=== PATIENT | male | born 1950 | race Caucasian/White ===

== ENCOUNTER 2021-01-06 13:59 | Emergency (ER) | payer MEDICARE, SELFPAY ==
--- NOTE | ~2021-01-06 | XR_ITS ---
EXAMINATION: XR CHEST CLINICAL INFORMATION: Chest pain COMPARISON: None TECHNIQUE: Frontal view of the chest was obtained. FINDINGS: The cardiac silhouette does not appear enlarged. The thoracic aorta is tortuous. Hilar and mediastinal contours are otherwise unremarkable. The lungs are clear. There is no pleural effusion or pneumothorax. There are degenerative changes of the spine. XR/XR chest 1V IMPRESSION: Tortuous thoracic aorta otherwise unremarkable exam.
--- NOTE | ~2021-01-06 | US_ITS ---
EXAMINATION: US ABDOMEN LIMITED CLINICAL INFORMATION: Abnormal liver function tests. COMPARISON: None TECHNIQUE: Real-time imaging of the right upper quadrant abdominal viscera. FINDINGS: PANCREAS: Obscured by bowel gas LIVER: Normal. The liver is normal in size. The liver contour is normal. Parenchymal echogenicity is normal. No focal hepatic lesion. There is no intrahepatic biliary duct dilatation seen. GALLBLADDER: There are multiple mobile gallstones. There is no wall thickening or pericholecystic fluid. COMMON BILE DUCT: Normal in caliber measuring 0.5 cm in diameter. RIGHT KIDNEY: Normal. No hydronephrosis. No renal calculi or focal parenchymal lesions. The kidney measures 11.1 cm in maximum dimension. FREE FLUID: None. US/US abdomen limited IMPRESSION: Cholelithiasis without evidence for acute cholecystitis. Normal appearance of the liver. No focal lesion.
[2021-01-06 14:17] VITALS: BP 152/94; BP 160/80; PULSE 89; RESP 18; TEMP 36.2; O2SAT 97; BMI 26.5
--- NOTE | 2021-01-06 15:36 | ECG_ITS ---
Test Reason : ANXIETY Blood Pressure : / mmHG Vent. Rate : 088 BPM Atrial Rate : 090 BPM P-R Int : 000 ms QRS Dur : 096 ms QT Int : 396 ms P-R-T Axes : 000 006 078 degrees QTc Int : 479 ms Normal sinus rhythm Nonspecific ST and T wave abnormality Premature ventricular complexes Borderline ECG No previous ECGs available Referred By: Katy Sands Electronically Signed By:KINGSTON OSBORNE
--- NOTE | 2021-01-06 15:40 | ED_ITS ---
HPI - General Adult General Chief complaint: Anxiety <UTE Farrar Last Filed: 01/06/21 17:05> Stated complaint: sob/cp <UTE Farrar - Last Filed: 01/06/21 17:05> Time Seen by Provider: 01/06/21 14:54 <UTE Farrar Last Filed: 01/06/21 17:05> Source: patient and EMS <UTE Farrar Last Filed: 01/06/21 17:05> History of Present Illness HPI narrative: 70-year-old male with a past medical history of hypertension, paranoid delusions, presenting to the ED complaining left-sided chest wall discomfort, SOB, generalized body swelling, and feeling like something is under his skin. Admits issues have been going on for a long time, however today could no longer handle it. 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 Denies fever, chills, cough, abdominal pain, nausea/vomiting, LE edema Patient reports compliance with BP medication, denies taking other medications. Denies SI/HI a however does report increased depression <UTE Farrar Last Filed: 01/06/21 17:05> Onset (ago): unknown <UTE Farrar Last Filed: 01/06/21 17:05> Related Data Home medications: Home Medications Medication Instructions Recorded Confirmed amlodipine-benazepril 1 cap PO DAILY 01/06/21 01/06/21 Previous Rx's Medication Instructions Recorded cyclobenzaprine 10 mg PO Q8H #10 tab 01/07/21 famotidine [Pepcid] 20 mg PO BID #10 tab 01/07/21 <UTE Farrar Last Filed: 01/06/21 17:05> Allergies/adverse reactions: Allergies Allergy/AdvReac Type Severity Reaction Status Date / Time meperidine [From DEMEROL] Allergy Unknown UNKNOWN Unverified 05/21/20 14:55 <UTE Farrar Last Filed: 01/06/21 17:05> Review of Systems Review of Systems: Constitutional: No Fever, No Chills Cardiovascular: + Chest Pain, + SOB, No Edema, No Palpitations Respiratory: No Cough, No Dyspnea Gastrointestinal: No Nausea, No Vomiting, No Diarrhea, No Constipation, No Abdominal pain Genitourinary: No Dysuria, No Urinary Frequency, No Hematuria Musculoskeletal: No joint pain, No Joint Swelling Skin: + feels like something under skin Neuro: No Weakness, No Numbness, No Dizziness, No Headache Psych: No Anxiety/Panic, + Depression, No SI/HI. <UTE Farrar - Last Filed: 01/06/21 17:05> Yes all other systems are reviewed and are negative <UTE Farrar - Last Filed: 01/06/21 17:05> [facility] Past Medical History Attestation statement: The following information was validated with the patient. <UTE Farrar - Last Filed: 01/06/21 17:05> Medical History: Medical History (Updated 01/08/21 @ 00:01 by Denisha Coppola) HTN (hypertension) <UTE Farrar - Last Filed: 01/06/21 17:05> Social History Social History: Social History Advance Directives: Yes Advance Directives Information Provided: Yes Advance Directives on File: No <UTE Farrar - Last Filed: 01/06/21 17:05> Physical Exam Vital Signs: Vital Signs: Last Vital Signs Temp 99.6 F 01/07/21 08:30 Pulse 99 01/07/21 08:30 Resp 01/07/21 08:30 BP 135/84 01/07/21 08:30 Pulse Ox 95 01/07/21 08:30 Body Mass Index 26.5 <UTE Farrar - Last Filed: 01/06/21 17:05> Vital Signs: Last Vital Signs Temp 99.6 F 01/07/21 08:30 Pulse 99 01/07/21 08:30 Resp 01/07/21 08:30 BP 135/84 01/07/21 08:30 Pulse Ox 95 01/07/21 08:30 Body Mass Index 26.5 <Micheal Diaz NP - Last Filed: 01/06/21 23:32> Vital Signs: Last Vital Signs Temp 99.6 F 01/07/21 08:30 Pulse 99 01/07/21 08:30 Resp 01/07/21 08:30 BP 135/84 01/07/21 08:30 Pulse Ox 95 01/07/21 08:30 Body Mass Index 26.5 <Bradford Sherman MD - Last Filed: 02/04/21 14:55> Const: General: cooperative, healthy appearing, comfortable, well developed, alert and awake <UTE Farrar - Last Filed: 01/06/21 17:05> Orientation/consciousness: patient oriented x3 <UTE Farrar - Last Filed: 01/06/21 17:05> Limitations: no limitations <UTE Farrar - Last Filed: 01/06/21 17:05> HENMT: Head: Yes normal to inspection <UTE Farrar - Last Filed: 01/06/21 17:05> Ears: hearing grossly normal bilaterally <UTE Farrar - Last Filed: 01/06/21 17:05> General nose exam: Normal external nose present <UTE Farrar - Last Filed: 01/06/21 17:05> Face and sinus: Yes normal facial exam <UTE Farrar - Last Filed: 01/06/21 17:05> Eyes: General: appearance normal, both eyes and all related structures <UTE Farrar - Last Filed: 01/06/21 17:05> EOM: EOMs intact bilaterally <UTE Farrar - Last Filed: 01/06/21 17:05> Neck: Neck: Yes normal visual inspection and Yes no meningeal signs <UTE Farrar - Last Filed: 01/06/21 17:05> Chest: Other: +ttp to Left chest wall under breast. No appreciable deformity/swelling/fluctuance or induration <UTE Farrar - Last Filed: 01/06/21 17:05> Chest palpation & inspection: normal inspection of the chest, no crepitus, tenderness and No rash <UTE Farrar - Last Filed: 01/06/21 17:05> Resp: Effort & Inspection: normal respiratory effort <UTE Farrar - Last Filed: 01/06/21 17:05> Auscultation: clear to auscultation bilaterally, no rales, no rhonchi and no wheezes <UTE Farrar - Last Filed: 01/06/21 17:05> Cardio: Rate: regular rate <UTE Farrar - Last Filed: 01/06/21 17:05> Heart sounds: S1 normal heart sound present and S2 normal heart sound present <UTE Farrar - Last Filed: 01/06/21 17:05> GI: Inspection: Yes normal to inspection <UTE Farrar - Last Filed: 01/06/21 17:05> Palpation (GI): Soft to palpation, nontender, no guarding and not rigid <UTE Farrar - Last Filed: 01/06/21 17:05> Skin: Other: No appreciable rashes/body swelling or parasitic infection <UTE Farrar - Last Filed: 01/06/21 17:05> Rashes: no rashes <UTE Farrar - Last Filed: 01/06/21 17:05> Wounds: no wounds <UTE Farrar - Last Filed: 01/06/21 17:05> Neuro: General: patient oriented x3, tone normal, moves all extremities and no meningeal signs <UTE Farrar - Last Filed: 01/06/21 17:05> Gait exam (Neuro): Normal gait present <UTE Farrar - Last Filed: 01/06/21 17:05> Extrem: General: Yes normal to inspection, Yes no pedal edema and Yes no calf tenderness <UTE Farrar - Last Filed: 01/06/21 17:05> Course Course Course Narrative: -mild leukocytosis of 14, bilirubins/AST/ALT mildly elevated no priors to compare > will obtain ultrasound XR chest 1V IMPRESSION: Tortuous thoracic aorta otherwise unremarkable exam. -1700--ED care transferred to [employer] Micheal pending remaining labs, abdomen ultrasound, and bhn eval <UTE Farrar - Last Filed: 01/06/21 17:05> I have reviewed the chart <Bradford Sherman MD - Last Filed: 02/04/21 14:55> Medical Decision Making MDM Narrative Medical decision making narrative: 70-year-old male with a past medical history of hypertension, paranoid delusions, presenting to the ED complaining left-sided chest wall discomfort, S OB, generalized body swelling, and feeling like something is under his skin. On exam VSS, NAD/well-appearing, physical exam as above. Rule out ACS. Concern for psychiatric illness/history with parasitic delusions. Unlikely pneumonia/PE or CHF Plan: EKG, labs, CXR, BHN consult <UTE Farrar - Last Filed: 01/06/21 17:05> Lab Data Result diagrams: : 01/06/21 15:58 01/06/21 21:53 <UTE Farrar - Last Filed: 01/06/21 17:05> Labs: Lab Results 01/06/21 01/06/21 01/06/21 Range/Units 15:53 15:58 15:58 WBC 14.0 H (4.8-10.8) X10*3/uL RBC 4.78 (4.60-5.80) X10*6/uL Hgb 15.5 (14.0-18.0) g/dl Hct 42.7 (42-52) % MCV 89.3 (80-98) fL MCH 32.4 (27.0-33.0) pg MCHC 36.3 H (31.0-36.0) g/dl RDW 13.7 (11.0-16.0) % Plt Count 207 (160-400) X10*3/uL MPV 8.7 L (9.4-12.4) fL Immature Gran % (Auto) 0.5 H (0.0-0.4) % Neut % (Auto) 86.9 H (45-73) % Lymph % (Auto) 4.1 L (20-40) % [place] % (Auto) 8.4 (2-11) % Eos % (Auto) 0.0 (0-4) % Baso % (Auto) 0.1 (0-2) % Lymph # (Auto) 0.6 L (1.2-4.9) X10*3/uL [place] # (Auto) 1.2 (0.1-1.2) X10*3/uL Eos # (Auto) 0.0 (0.0-0.4) X10*3/uL Baso # (Auto) 0.0 (0.0-0.2) X10*3/uL Abs Immat Gran (auto) 0.07 H (0.00-0.03) X10*3/uL Absolute Neuts (auto) 12.2 H (2.0-8.3) X10*3/uL Absolute Nucleated RBC 0.000 (0.0-0.012) X10*3/uL Nucleated RBC % (auto) 0.0 (0.0-0.2) /100WBC Smear Tech's Comments VERIFIED Hold Blue Top SEE NOTE Sodium (135-145) mmol/L Potassium (3.3-5.1) mmol/L Chloride (96-108) mmol/L Carbon Dioxide (22-29) mmol/L Anion Gap (12-20) BUN (9-16) mg/dL Creatinine (0.5-1.4) mg/dL Estim Creat Clear Calc Estimated GFR Random Glucose (60-115) mg/dL Calcium (8.4-10.2) mg/dL Magnesium (1.6-2.6) mg/dL Total Bilirubin (0.0-1.0) mg/dL Direct Bilirubin (0.0-0.5) mg/dL AST (5-37) U/L ALT (0-40) U/L Alkaline Phosphatase (39-117) U/L Troponin I High Sens (<3.5-35.0) ng/L B-Natriuretic Peptide (<100) pg/mL Total Protein (6.5-8.0) g/dL Albumin (3.5-5.0) g/dL COVID-19 ([facility]) Negative (Negative) COVID-19 Clin Com See Note 01/06/21 01/06/21 01/06/21 Range/Units 15:58 15:58 21:53 WBC (4.8-10.8) X10*3/uL RBC (4.60-5.80) X10*6/uL Hgb (14.0-18.0) g/dl Hct (42-52) % MCV (80-98) fL MCH (27.0-33.0) pg MCHC (31.0-36.0) g/dl RDW (11.0-16.0) % Plt Count (160-400) X10*3/uL MPV (9.4-12.4) fL Immature Gran % (Auto) (0.0-0.4) % Neut % (Auto) (45-73) % Lymph % (Auto) (20-40) % [place] % (Auto) (2-11) % Eos % (Auto) (0-4) % Baso % (Auto) (0-2) % Lymph # (Auto) (1.2-4.9) X10*3/uL [place] # (Auto) (0.1-1.2) X10*3/uL Eos # (Auto) (0.0-0.4) X10*3/uL Baso # (Auto) (0.0-0.2) X10*3/uL Abs Immat Gran (auto) (0.00-0.03) X10*3/uL Absolute Neuts (auto) (2.0-8.3) X10*3/uL Absolute Nucleated RBC (0.0-0.012) X10*3/uL Nucleated RBC % (auto) (0.0-0.2) /100WBC Smear Tech's Comments Hold Blue Top Sodium 137 137 (135-145) mmol/L Potassium 2.8 L 3.4 D (3.3-5.1) mmol/L Chloride 103 105 (96-108) mmol/L Carbon Dioxide 23 22 (22-29) mmol/L Anion Gap 14 13 (12-20) BUN 16 18 H (9-16) mg/dL Creatinine 0.84 0.91 (0.5-1.4) mg/dL Estim Creat Clear Calc 83.2 76.8 Estimated GFR > 60 > 60 Random Glucose 170 H 191 H (60-115) mg/dL Calcium 9.3 8.9 (8.4-10.2) mg/dL Magnesium 1.7 (1.6-2.6) mg/dL Total Bilirubin 3.3 H 2.8 H (0.0-1.0) mg/dL Direct Bilirubin 1.5 H (0.0-0.5) mg/dL AST 132 H 120 H (5-37) U/L ALT 51 H 50 H (0-40) U/L Alkaline Phosphatase 122 H 108 (39-117) U/L Troponin I High Sens 5.2 (<3.5-35.0) ng/L B-Natriuretic Peptide 115 H (<100) pg/mL Total Protein 7.0 6.5 (6.5-8.0) g/dL Albumin 3.7 3.4 L (3.5-5.0) g/dL COVID-19 ([facility]) (Negative) COVID-19 Clin Com 01/06/21 Range/Units 21:53 WBC (4.8-10.8) X10*3/uL RBC (4.60-5.80) X10*6/uL Hgb (14.0-18.0) g/dl Hct (42-52) % MCV (80-98) fL MCH (27.0-33.0) pg MCHC (31.0-36.0) g/dl RDW (11.0-16.0) % Plt Count (160-400) X10*3/uL MPV (9.4-12.4) fL Immature Gran % (Auto) (0.0-0.4) % Neut % (Auto) (45-73) % Lymph % (Auto) (20-40) % [place] % (Auto) (2-11) % Eos % (Auto) (0-4) % Baso % (Auto) (0-2) % Lymph # (Auto) (1.2-4.9) X10*3/uL [place] # (Auto) (0.1-1.2) X10*3/uL Eos # (Auto) (0.0-0.4) X10*3/uL Baso # (Auto) (0.0-0.2) X10*3/uL Abs Immat Gran (auto) (0.00-0.03) X10*3/uL Absolute Neuts (auto) (2.0-8.3) X10*3/uL Absolute Nucleated RBC (0.0-0.012) X10*3/uL Nucleated RBC % (auto) (0.0-0.2) /100WBC Smear Tech's Comments Hold Blue Top Sodium (135-145) mmol/L Potassium (3.3-5.1) mmol/L Chloride (96-108) mmol/L Carbon Dioxide (22-29) mmol/L Anion Gap (12-20) BUN (9-16) mg/dL Creatinine (0.5-1.4) mg/dL Estim Creat Clear Calc Estimated GFR Random Glucose (60-115) mg/dL Calcium (8.4-10.2) mg/dL Magnesium (1.6-2.6) mg/dL Total Bilirubin (0.0-1.0) mg/dL Direct Bilirubin (0.0-0.5) mg/dL AST (5-37) U/L ALT (0-40) U/L Alkaline Phosphatase (39-117) U/L Troponin I High Sens 5.2 (<3.5-35.0) ng/L B-Natriuretic Peptide (<100) pg/mL Total Protein (6.5-8.0) g/dL Albumin (3.5-5.0) g/dL COVID-19 ([facility]) (Negative) COVID-19 Clin Com <UTE Farrar - Last Filed: 01/06/21 17:05> Lab Results 01/06/21 01/06/21 01/06/21 Range/Units 15:53 15:58 15:58 WBC 14.0 H (4.8-10.8) X10*3/uL RBC 4.78 (4.60-5.80) X10*6/uL Hgb 15.5 (14.0-18.0) g/dl Hct 42.7 (42-52) % MCV 89.3 (80-98) fL MCH 32.4 (27.0-33.0) pg MCHC 36.3 H (31.0-36.0) g/dl RDW 13.7 (11.0-16.0) % Plt Count 207 (160-400) X10*3/uL MPV 8.7 L (9.4-12.4) fL Immature Gran % (Auto) 0.5 H (0.0-0.4) % Neut % (Auto) 86.9 H (45-73) % Lymph % (Auto) 4.1 L (20-40) % [place] % (Auto) 8.4 (2-11) % Eos % (Auto) 0.0 (0-4) % Baso % (Auto) 0.1 (0-2) % Lymph # (Auto) 0.6 L (1.2-4.9) X10*3/uL [place] # (Auto) 1.2 (0.1-1.2) X10*3/uL Eos # (Auto) 0.0 (0.0-0.4) X10*3/uL Baso # (Auto) 0.0 (0.0-0.2) X10*3/uL Abs Immat Gran (auto) 0.07 H (0.00-0.03) X10*3/uL Absolute Neuts (auto) 12.2 H (2.0-8.3) X10*3/uL Absolute Nucleated RBC 0.000 (0.0-0.012) X10*3/uL Nucleated RBC % (auto) 0.0 (0.0-0.2) /100WBC Smear Tech's Comments VERIFIED Hold Blue Top SEE NOTE Sodium (135-145) mmol/L Potassium (3.3-5.1) mmol/L Chloride (96-108) mmol/L Carbon Dioxide (22-29) mmol/L Anion Gap (12-20) BUN (9-16) mg/dL Creatinine (0.5-1.4) mg/dL Estim Creat Clear Calc Estimated GFR Random Glucose (60-115) mg/dL Calcium (8.4-10.2) mg/dL Magnesium (1.6-2.6) mg/dL Total Bilirubin (0.0-1.0) mg/dL Direct Bilirubin (0.0-0.5) mg/dL AST (5-37) U/L ALT (0-40) U/L Alkaline Phosphatase (39-117) U/L Troponin I High Sens (<3.5-35.0) ng/L B-Natriuretic Peptide (<100) pg/mL Total Protein (6.5-8.0) g/dL Albumin (3.5-5.0) g/dL COVID-19 ([facility]) Negative (Negative) COVID-19 Clin Com See Note 01/06/21 01/06/21 01/06/21 Range/Units 15:58 15:58 21:53 WBC (4.8-10.8) X10*3/uL RBC (4.60-5.80) X10*6/uL Hgb (14.0-18.0) g/dl Hct (42-52) % MCV (80-98) fL MCH (27.0-33.0) pg MCHC (31.0-36.0) g/dl RDW (11.0-16.0) % Plt Count (160-400) X10*3/uL MPV (9.4-12.4) fL Immature Gran % (Auto) (0.0-0.4) % Neut % (Auto) (45-73) % Lymph % (Auto) (20-40) % [place] % (Auto) (2-11) % Eos % (Auto) (0-4) % Baso % (Auto) (0-2) % Lymph # (Auto) (1.2-4.9) X10*3/uL [place] # (Auto) (0.1-1.2) X10*3/uL Eos # (Auto) (0.0-0.4) X10*3/uL Baso # (Auto) (0.0-0.2) X10*3/uL Abs Immat Gran (auto) (0.00-0.03) X10*3/uL Absolute Neuts (auto) (2.0-8.3) X10*3/uL Absolute Nucleated RBC (0.0-0.012) X10*3/uL Nucleated RBC % (auto) (0.0-0.2) /100WBC Smear Tech's Comments Hold Blue Top Sodium 137 137 (135-145) mmol/L Potassium 2.8 L 3.4 D (3.3-5.1) mmol/L Chloride 103 105 (96-108) mmol/L Carbon Dioxide 23 22 (22-29) mmol/L Anion Gap 14 13 (12-20) BUN 16 18 H (9-16) mg/dL Creatinine 0.84 0.91 (0.5-1.4) mg/dL Estim Creat Clear Calc 83.2 76.8 Estimated GFR > 60 > 60 Random Glucose 170 H 191 H (60-115) mg/dL Calcium 9.3 8.9 (8.4-10.2) mg/dL Magnesium 1.7 (1.6-2.6) mg/dL Total Bilirubin 3.3 H 2.8 H (0.0-1.0) mg/dL Direct Bilirubin 1.5 H (0.0-0.5) mg/dL AST 132 H 120 H (5-37) U/L ALT 51 H 50 H (0-40) U/L Alkaline Phosphatase 122 H 108 (39-117) U/L Troponin I High Sens 5.2 (<3.5-35.0) ng/L B-Natriuretic Peptide 115 H (<100) pg/mL Total Protein 7.0 6.5 (6.5-8.0) g/dL Albumin 3.7 3.4 L (3.5-5.0) g/dL COVID-19 ([facility]) (Negative) COVID-19 Clin Com 01/06/21 Range/Units 21:53 WBC (4.8-10.8) X10*3/uL RBC (4.60-5.80) X10*6/uL Hgb (14.0-18.0) g/dl Hct (42-52) % MCV (80-98) fL MCH (27.0-33.0) pg MCHC (31.0-36.0) g/dl RDW (11.0-16.0) % Plt Count (160-400) X10*3/uL MPV (9.4-12.4) fL Immature Gran % (Auto) (0.0-0.4) % Neut % (Auto) (45-73) % Lymph % (Auto) (20-40) % [place] % (Auto) (2-11) % Eos % (Auto) (0-4) % Baso % (Auto) (0-2) % Lymph # (Auto) (1.2-4.9) X10*3/uL [place] # (Auto) (0.1-1.2) X10*3/uL Eos # (Auto) (0.0-0.4) X10*3/uL Baso # (Auto) (0.0-0.2) X10*3/uL Abs Immat Gran (auto) (0.00-0.03) X10*3/uL Absolute Neuts (auto) (2.0-8.3) X10*3/uL Absolute Nucleated RBC (0.0-0.012) X10*3/uL Nucleated RBC % (auto) (0.0-0.2) /100WBC Smear Tech's Comments Hold Blue Top Sodium (135-145) mmol/L Potassium (3.3-5.1) mmol/L Chloride (96-108) mmol/L Carbon Dioxide (22-29) mmol/L Anion Gap (12-20) BUN (9-16) mg/dL Creatinine (0.5-1.4) mg/dL Estim Creat Clear Calc Estimated GFR Random Glucose (60-115) mg/dL Calcium (8.4-10.2) mg/dL Magnesium (1.6-2.6) mg/dL Total Bilirubin (0.0-1.0) mg/dL Direct Bilirubin (0.0-0.5) mg/dL AST (5-37) U/L ALT (0-40) U/L Alkaline Phosphatase (39-117) U/L Troponin I High Sens 5.2 (<3.5-35.0) ng/L B-Natriuretic Peptide (<100) pg/mL Total Protein (6.5-8.0) g/dL Albumin (3.5-5.0) g/dL COVID-19 ([facility]) (Negative) COVID-19 Clin Com <Micheal Diaz NP - Last Filed: 01/06/21 23:32> Lab Results 01/06/21 01/06/21 01/06/21 Range/Units 15:53 15:58 15:58 WBC 14.0 H (4.8-10.8) X10*3/uL RBC 4.78 (4.60-5.80) X10*6/uL Hgb 15.5 (14.0-18.0) g/dl Hct 42.7 (42-52) % MCV 89.3 (80-98) fL MCH 32.4 (27.0-33.0) pg MCHC 36.3 H (31.0-36.0) g/dl RDW 13.7 (11.0-16.0) % Plt Count 207 (160-400) X10*3/uL MPV 8.7 L (9.4-12.4) fL Immature Gran % (Auto) 0.5 H (0.0-0.4) % Neut % (Auto) 86.9 H (45-73) % Lymph % (Auto) 4.1 L (20-40) % [place] % (Auto) 8.4 (2-11) % Eos % (Auto) 0.0 (0-4) % Baso % (Auto) 0.1 (0-2) % Lymph # (Auto) 0.6 L (1.2-4.9) X10*3/uL [place] # (Auto) 1.2 (0.1-1.2) X10*3/uL Eos # (Auto) 0.0 (0.0-0.4) X10*3/uL Baso # (Auto) 0.0 (0.0-0.2) X10*3/uL Abs Immat Gran (auto) 0.07 H (0.00-0.03) X10*3/uL Absolute Neuts (auto) 12.2 H (2.0-8.3) X10*3/uL Absolute Nucleated RBC 0.000 (0.0-0.012) X10*3/uL Nucleated RBC % (auto) 0.0 (0.0-0.2) /100WBC Smear Tech's Comments VERIFIED Hold Blue Top SEE NOTE Sodium (135-145) mmol/L Potassium (3.3-5.1) mmol/L Chloride (96-108) mmol/L Carbon Dioxide (22-29) mmol/L Anion Gap (12-20) BUN (9-16) mg/dL Creatinine (0.5-1.4) mg/dL Estim Creat Clear Calc Estimated GFR Random Glucose (60-115) mg/dL Calcium (8.4-10.2) mg/dL Magnesium (1.6-2.6) mg/dL Total Bilirubin (0.0-1.0) mg/dL Direct Bilirubin (0.0-0.5) mg/dL AST (5-37) U/L ALT (0-40) U/L Alkaline Phosphatase (39-117) U/L Troponin I High Sens (<3.5-35.0) ng/L B-Natriuretic Peptide (<100) pg/mL Total Protein (6.5-8.0) g/dL Albumin (3.5-5.0) g/dL COVID-19 ([facility]) Negative (Negative) COVID-19 Clin Com See Note 01/06/21 01/06/21 01/06/21 Range/Units 15:58 15:58 21:53 WBC (4.8-10.8) X10*3/uL RBC (4.60-5.80) X10*6/uL Hgb (14.0-18.0) g/dl Hct (42-52) % MCV (80-98) fL MCH (27.0-33.0) pg MCHC (31.0-36.0) g/dl RDW (11.0-16.0) % Plt Count (160-400) X10*3/uL MPV (9.4-12.4) fL Immature Gran % (Auto) (0.0-0.4) % Neut % (Auto) (45-73) % Lymph % (Auto) (20-40) % [place] % (Auto) (2-11) % Eos % (Auto) (0-4) % Baso % (Auto) (0-2) % Lymph # (Auto) (1.2-4.9) X10*3/uL [place] # (Auto) (0.1-1.2) X10*3/uL Eos # (Auto) (0.0-0.4) X10*3/uL Baso # (Auto) (0.0-0.2) X10*3/uL Abs Immat Gran (auto) (0.00-0.03) X10*3/uL Absolute Neuts (auto) (2.0-8.3) X10*3/uL Absolute Nucleated RBC (0.0-0.012) X10*3/uL Nucleated RBC % (auto) (0.0-0.2) /100WBC Smear Tech's Comments Hold Blue Top Sodium 137 137 (135-145) mmol/L Potassium 2.8 L 3.4 D (3.3-5.1) mmol/L Chloride 103 105 (96-108) mmol/L Carbon Dioxide 23 22 (22-29) mmol/L Anion Gap 14 13 (12-20) BUN 16 18 H (9-16) mg/dL Creatinine 0.84 0.91 (0.5-1.4) mg/dL Estim Creat Clear Calc 83.2 76.8 Estimated GFR > 60 > 60 Random Glucose 170 H 191 H (60-115) mg/dL Calcium 9.3 8.9 (8.4-10.2) mg/dL Magnesium 1.7 (1.6-2.6) mg/dL Total Bilirubin 3.3 H 2.8 H (0.0-1.0) mg/dL Direct Bilirubin 1.5 H (0.0-0.5) mg/dL AST 132 H 120 H (5-37) U/L ALT 51 H 50 H (0-40) U/L Alkaline Phosphatase 122 H 108 (39-117) U/L Troponin I High Sens 5.2 (<3.5-35.0) ng/L B-Natriuretic Peptide 115 H (<100) pg/mL Total Protein 7.0 6.5 (6.5-8.0) g/dL Albumin 3.7 3.4 L (3.5-5.0) g/dL COVID-19 ([facility]) (Negative) COVID-19 Clin Com 01/06/21 Range/Units 21:53 WBC (4.8-10.8) X10*3/uL RBC (4.60-5.80) X10*6/uL Hgb (14.0-18.0) g/dl Hct (42-52) % MCV (80-98) fL MCH (27.0-33.0) pg MCHC (31.0-36.0) g/dl RDW (11.0-16.0) % Plt Count (160-400) X10*3/uL MPV (9.4-12.4) fL Immature Gran % (Auto) (0.0-0.4) % Neut % (Auto) (45-73) % Lymph % (Auto) (20-40) % [place] % (Auto) (2-11) % Eos % (Auto) (0-4) % Baso % (Auto) (0-2) % Lymph # (Auto) (1.2-4.9) X10*3/uL [place] # (Auto) (0.1-1.2) X10*3/uL Eos # (Auto) (0.0-0.4) X10*3/uL Baso # (Auto) (0.0-0.2) X10*3/uL Abs Immat Gran (auto) (0.00-0.03) X10*3/uL Absolute Neuts (auto) (2.0-8.3) X10*3/uL Absolute Nucleated RBC (0.0-0.012) X10*3/uL Nucleated RBC % (auto) (0.0-0.2) /100WBC Smear Tech's Comments Hold Blue Top Sodium (135-145) mmol/L Potassium (3.3-5.1) mmol/L Chloride (96-108) mmol/L Carbon Dioxide (22-29) mmol/L Anion Gap (12-20) BUN (9-16) mg/dL Creatinine (0.5-1.4) mg/dL Estim Creat Clear Calc Estimated GFR Random Glucose (60-115) mg/dL Calcium (8.4-10.2) mg/dL Magnesium (1.6-2.6) mg/dL Total Bilirubin (0.0-1.0) mg/dL Direct Bilirubin (0.0-0.5) mg/dL AST (5-37) U/L ALT (0-40) U/L Alkaline Phosphatase (39-117) U/L Troponin I High Sens 5.2 (<3.5-35.0) ng/L B-Natriuretic Peptide (<100) pg/mL Total Protein (6.5-8.0) g/dL Albumin (3.5-5.0) g/dL COVID-19 ([facility]) (Negative) COVID-19 Clin Com <Bradford Sherman MD - Last Filed: 02/04/21 14:55> ECG Data Attestation: I personally reviewed and interpreted this ECG as follows: <UTE Farrar - Last Filed: 01/06/21 17:05> Interpretation: EKG accelerated junctional rhythm with occasional PVCs. Rate of 88. QTC 479. No STEMI <UTE Farrar - Last Filed: 01/06/21 17:05> Discharge Plan Discharge Clinical Impression: Chest pain, Paranoia, Cholelithiasis <UTE Farrar - Last Filed: 01/06/21 17:05> Patient Disposition: Home, Self-Care <UTE Farrar - Last Filed: 01/06/21 17:05> Instructions: Gallstones (ED) <UTE Farrar - Last Filed: 01/06/21 17:05> Prescriptions: New cyclobenzaprine 10 mg tablet 10 mg PO Q8H Qty: 10 RF: 0 famotidine [Pepcid] 20 mg tablet 20 mg PO BID Qty: 10 RF: 0 No Action amlodipine-benazepril 10-20 mg capsule 1 cap PO DAILY RF: 0 <UTE Farrar - Last Filed: 01/06/21 17:05> Referrals: Zain Bingham MD [Physician] - 2 days (Call tomorrow to make a follow- up appointment within the next few weeks for the gallstones to having her gallbladder) <UTE Farrar - Last Filed: 01/06/21 17:05> Interventions: ED Discharge Assessment Last Done: 01/07/21 10:18 <UTE Farrar - Last Filed: 01/06/21 17:05> Discharge Date/Time: 01/07/21 10:17 <UTE Farrar - Last Filed: 01/06/21 17:05> Print Language: Malian <UTE Farrar - Last Filed: 01/06/21 17:05>
[2021-01-06 16:17] LABS: Basophils Percent Auto 0.1 % (0-2); Hematocrit 42.7 % (42-52); Hemoglobin 15.5 g/dl (14.0-18.0); Imm Gran Abs Auto 0.07 X10*3/uL (0.00-0.03); Imm Gran Pct Auto 0.5 % (0.0-0.4); Lymphocytes Absolute Auto 0.6 X10*3/uL (1.2-4.9); Lymphocytes Percent Auto 4.1 % (20-40); MANUAL DIFF FLAG SCAN; Mean Corpuscular HGB Conc 36.3 g/dl (31.0-36.0); Mean Corpuscular Hemoglobin 32.4 pg (27.0-33.0); Mean Corpuscular Volume 89.3 fL (80-98); Mean Platelet Volume 8.7 fL (9.4-12.4); Monocytes Absolute Auto 1.2 X10*3/uL (0.1-1.2); Monocytes Percent Auto 8.4 % (2-11); Neutrophils Absolute Auto 12.2 X10*3/uL (2.0-8.3); Neutrophils Percent Auto 86.9 % (45-73); Platelet Count 207 X10*3/uL (160-400); Red Blood Count 4.78 X10*6/uL (4.60-5.80); Red Cell Distribution Width 13.7 % (11.0-16.0); SCAN SMEAR FLAG 1
[2021-01-06 16:27] LABS: COVID-19 Test Negative (Negative); IDNOW Serial# 9DD0AD1C
[2021-01-06 16:34] LABS: SLIDE REVIEW VERIFIED
[2021-01-06 16:38] LABS: Alanine Aminotransferase 51 U/L (0-40); Albumin Level 3.7 g/dL (3.5-5.0); Alkaline Phosphatase 122 U/L (39-117); Aspartate Amino Transferase 132 U/L (5-37); Bilirubin Direct 1.5 mg/dL (0.0-0.5); Bilirubin Total 3.3 mg/dL (0.0-1.0); Blood Urea Nitrogen 16 mg/dL (9-16); Calcium 9.3 mg/dL (8.4-10.2); Creatinine Clr Calc Pharmacy 83.2; Estimated Glomerular Filt Rate > 60; Glucose Random 170 mg/dL (60-115); Magnesium 1.7 mg/dL (1.6-2.6)
[2021-01-06 16:44] LABS: B Type Natriuretic Peptide 115 pg/mL (<100); Troponin-I High Sensitivity 5.2 ng/L (<3.5-35.0)
[2021-01-06 16:50] LABS: Anion Gap 14 (12-20); Carbon Dioxide 23 mmol/L (22-29); Chloride 103 mmol/L (96-108); Potassium 2.8 mmol/L (3.3-5.1); Sodium 137 mmol/L (135-145)
[2021-01-06] MEDS: Potassium Chloride Packet 20 MEQ PACKET 60 MEQ PO (17:14)
[2021-01-06 17:27] VITALS: RESP 16
--- NOTE | 2021-01-06 22:00 | PC.NURSE ---
Patient assessed by N, disposition is to discharge home with out patient therapy referral. Per N provider made aware. will continue to monitor.
[2021-01-06 22:24] LABS: Alanine Aminotransferase 50 U/L (0-40); Albumin Level 3.4 g/dL (3.5-5.0); Alkaline Phosphatase 108 U/L (39-117); Anion Gap 13 (12-20); Aspartate Amino Transferase 120 U/L (5-37); Bilirubin Total 2.8 mg/dL (0.0-1.0); Blood Urea Nitrogen 18 mg/dL (9-16); Calcium 8.9 mg/dL (8.4-10.2); Carbon Dioxide 22 mmol/L (22-29); Chloride 105 mmol/L (96-108); Creatinine Clr Calc Pharmacy 76.8; Estimated Glomerular Filt Rate > 60; Glucose Random 191 mg/dL (60-115); Potassium 3.4 mmol/L (3.3-5.1); Sodium 137 mmol/L (135-145); Total Protein 6.5 g/dL (6.5-8.0)
[2021-01-06 22:26] LABS: Troponin-I High Sensitivity 5.2 ng/L (<3.5-35.0)
[2021-01-06 22:44] VITALS: BP 158/83; PULSE 94; RESP 18; TEMP 38.2; O2SAT 96
[2021-01-06] MEDS: Acetaminophen 325 MG TABLET 650 MG PO (22:44)
[2021-01-06 23:40] VITALS: BP 137/86; PULSE 92; RESP 17; TEMP 37.2; O2SAT 94
--- NOTE | 2021-01-07 07:08 | PC.NURSE ---
received report from overnight nurse patient appears in no distress from overnight and currently, patient remains at rest, appears in no distress
[2021-01-07 08:30] VITALS: BP 135/84; PULSE 99; RESP 17; TEMP 37.6; O2SAT 95
== END 2021-01-07 10:17 | disposition home or self-care (01) ==
PROVIDERS: Physician Assistant; Emergency Provider Emergency Medicine; PCP Internal Medicine
DX: R07.9 Chest pain, unspecified (principal); R06.02 Shortness of breath; F22 Delusional disorders; Z20.822 Contact with and (suspected) exposure to COVID-19
CPT/HCPCS: 36415; 71045; 76705; 80048; 80053; 80076; 82248; 83735; 83880; 84484; 85025; 87635; 93005; 99284

== ENCOUNTER 2021-06-01 11:41 | Inpatient (IN) | payer MEDICARE, SELFPAY ==
--- NOTE | ~2021-06-01 | CT_ITS ---
EXAMINATION: CT HEAD WITHOUT CONTRAST CLINICAL INFORMATION: Altered mental status COMPARISON: None TECHNIQUE: Contiguous axial imaging was performed from the skull base to vertex without intravenous administration of contrast. Additional 2-D coronal and sagittal reformatted images are generated on the CT workstation and uploaded to PACS. This CT examination was performed using dose optimization techniques as appropriate, variously including the following: *Automated exposure control *Adjustment of mA and/or kV according to patient size (this includes techniques or standardized protocols for targeted exams where dose is matched to indication/reason for exam; i.e. extremities or head) *Use of iterative reconstruction technique DLP: 657 mGy-cm FINDINGS: There is no intracranial hemorrhage or hematoma. Generalized atrophic changes are present with, prominent cortical sulci and fissures and cisterns. The ventricles are normal in size and contour and there is no hydrocephalus. No midline shift. There is probable old circumscribed right periventricular lacunar infarct measuring under 1 cm. Just superiorly is nonspecific decreased attenuation in the periventricular white matter of indeterminate age. There is no associated mass effect. Finding could represent periventricular white matter gliosis from small vessel ischemic changes. Possibility of acute infarct in the white matter cannot be excluded. There are atherosclerotic calcifications vasculature. There is no visible mass lesion. The calvarium appears intact. There is no pneumocephalus or orbital emphysema. The visualized sinuses and middle ears and mastoid air cells show no significant mucosal thickening. There are no air-fluid levels. CT/CT head/brain wo con IMPRESSION: 1. Decreased attenuation right periventricular white matter, likely related to ischemic changes of indeterminate age. No mass effect. Probable old adjacent lacunar infarct under 1 cm. MRI brain with the helpful for further assessment. 2. No intracranial hemorrhage or hematoma. No hydrocephalus or midline shift. 3. Generalized atrophic changes.
--- NOTE | ~2021-06-01 | XR_ITS ---
EXAMINATION: XR CHEST CLINICAL INFORMATION: Pre-MRI screening, evaluate for implants COMPARISON: Chest x-ray on 01/06/2021 TECHNIQUE: Frontal view of the chest was obtained. FINDINGS: No significant abnormality is noted involving the heart, lungs, mediastinum, bony thorax or soft tissues. XR/XR chest 1V IMPRESSION: Unremarkable examination. No radiopaque foreign bodies.
--- NOTE | ~2021-06-01 | CT_ITS ---
EXAMINATION: CT ANGIOGRAM OF THE CHEST WITH AND WITHOUT CONTRAST (CT PULMONARY ANGIOGRAM FOR PE) CLINICAL INFORMATION: Reason for Exam pleuritic chest pain COMPARISON: None TECHNIQUE: Prior to contrast administration, noncontrast localization images were obtained. Subsequently, multidetector volumetric imaging was performed from the thoracic inlet to below the diaphragms following the administration of 80 mL Omnipaque 350 intravenous contrast. No contrast reaction reported Sagittal, coronal, and MIP oblique sagittal reformatted images were obtained on the CT workstation, uploaded to PACS, and reviewed. This CT examination was performed using dose optimization techniques as appropriate, variously including the following: *Automated exposure control *Adjustment of mA and/or kV according to patient size (this includes techniques or standardized protocols for targeted exams where dose is matched to indication/reason for exam; i.e. extremities or head) *Use of iterative reconstruction technique Total exam dose-length product 149 mGy-cm FINDINGS: QUALITY OF STUDY/CONTRAST BOLUS: Satisfactory. PULMONARY ARTERIES: No central or segmental pulmonary emboli. THORACIC AORTA: There is no evidence of aneurysm or visible dissection. The ascending aorta measures 4.2 x 4.1 cm. LUNG: The lungs are well-expanded with minimal atelectasis or scarring in left lower lobe. A 5 mm ill-defined opacity along the right minor fissure axial image 271/6 probable lymph node. No additional nodules seen. PLEURA: No pleural effusion or pneumothorax. MEDIASTINUM: Normal heart size. No pericardial effusion. No hilar or mediastinal lymphadenopathy. No evidence of septal bowing or right heart strain. CHEST WALL/AXILLA: No axillary or internal mammary lymphadenopathy. OSSEOUS STRUCTURES: There is moderate ventral spondylosis mid and lower dorsal spine. No lytic process. UPPER ABDOMEN: Unremarkable. No reflux of contrast into the hepatic veins to suggest elevated right heart pressures. CT/CT angio chest PE protocol IMPRESSION: No evidence of PE. No evidence aortic dissection or aneurysm. Minimal atelectatic changes in left lung base. VTE: negative
--- NOTE | ~2021-06-01 | CT_ITS ---
EXAMINATION: CT angio head neck CLINICAL INFORMATION: Altered mental status. Possible stroke on head CT. COMPARISON: CT scan of the head 06/01/2021. TECHNIQUE: Embedded Software Engineer images were obtained. A CT angiogram of the head and neck was performed in the arterial phase after the intravenous administration of 85 mL Omnipaque 350. Pre and delayed postcontrast images of the head were also obtained. MIP reconstructions were generated in multiple orientations at the acquisition workstation. Multiple three-dimensional surface rendered images and maximum intensity projection images were generated on a dedicated 3-D lab workstation. Arterial stenoses are measured in accordance with NASCET criteria or similar method if applicable. This CT examination was performed using dose optimization techniques as appropriate, including one or more of the following: Automated exposure control, iterative reconstruction, and adjustment of technique factors (mA and/or kVp) according to patient size (this includes techniques or standardized protocols for targeted exams where dose is matched to indication/reason for exam). Total exam dose-length product 1549 mGy-cm FINDINGS: Head: Postcontrast images reveal no abnormal mass or enhancement within the intracranial compartment. No intracranial mass effect or midline shift. Lateral and third ventricles are proportionate to the subarachnoid spaces. No hydrocephalus. There are ill-defined nonspecific foci of hypoattenuation within the periventricular white matter. Daniels-white matter differentiation is otherwise preserved. The calvarium and skull base are intact. Mastoid air cells and middle ear cavities are well aerated. No active paranasal sinus disease. CT angiogram neck: The aortic arch apex is normal. Origins of the major aortic branches are widely patent. Common carotid arteries are patent. Partially calcified atheromatous plaque involves both carotid bifurcations. No stenosis of the extracranial internal carotid arteries. The cervical segments of the vertebral arteries as well as their origins are patent. CT angiogram head: Intracranial internal carotid arteries are patent. Intradural vertebral artery segments and basilar artery are patent. Anterior, middle, and posterior cerebral artery complexes are normal. No intracranial or vessel occlusion. The timing of the contrast injection provides adequate opacification of the dural venous sinuses which are patent. Other: There is atlantooccipital assimilation. Visualized soft tissues of the neck including the thyroid gland are normal. Lung apices are clear. No acute osseous finding. CT/CT angio head neck IMPRESSION: There is atlantooccipital assimilation. Otherwise unremarkable examination. No stenosis of the cervical carotid or vertebral arteries. No intracranial large vessel occlusion. There are nonspecific periventricular white matter changes. Otherwise no evidence of acute territorial infarct. Delayed postcontrast images reveal no abnormal mass or enhancement within the intracranial compartment.
--- NOTE | ~2021-06-01 | XR_ITS ---
EXAMINATION: XR ABDOMEN KUB CLINICAL INDICATION: Metallic implant, MRI screening COMPARISON: None TECHNIQUE: AP view of the abdomen. FINDINGS: The bowel gas pattern is normal with no evidence of ileus or obstruction. No unusual soft tissue calcifications are noted. The bones are unremarkable. There is excreted contrast within the renal collecting systems and bladder. There are multiple prostate calcifications. No radiopaque foreign body. XR/XR KUB IMPRESSION: No radiopaque foreign bodies.
--- NOTE | ~2021-06-01 | MR_ITS ---
MRI OF THE BRAIN WITHOUT IV CONTRAST INDICATION: Ischemic changes on CT of indeterminate age. Weakness. COMPARISON: Head CT 06/01/2021. TECHNIQUE: Multiplanar multisequence MR imaging of the brain was obtained without IV contrast. FINDINGS: There is no hydrocephalus, extra-axial surface collection, or herniation. There is global cerebral volume loss and there are T2 signal changes within the supratentorial white matter and central delia, most likely moderate chronic microangiopathy. There is a chronic lacunar infarct within the right basal ganglia. The major flow voids at the skull base are preserved. There is no acute infarct on diffusion-weighted imaging. There is no intracranial hemorrhage on the gradient recalled echo acquisition. The midline structures are normal. The cerebellar tonsils are normally positioned. The cerebellum and brainstem are normal. The craniocervical junction is normal. Bilateral atlantooccipital joint fusion. Osseous marrow signal intensity is homogenous. The visualized soft tissues are unremarkable. There is rightward deviation of the nasal septum with a rightward directed nasal septal spur. MR/MR head/brain wo con IMPRESSION: - No acute intracranial findings. No acute infarcts. - There is global cerebral volume loss, there is moderate chronic microangiopathy, and there is a chronic lacunar infarct within the right basal ganglia.
--- NOTE | ~2021-06-01 | CT_ITS ---
EXAMINATION: CT ABDOMEN AND PELVIS WITHOUT CONTRAST CLINICAL INFORMATION: Left-sided back/flank pain COMPARISON: Previous KUB from earlier the same day and abdominal ultrasound January 2021 TECHNIQUE: Multidetector volumetric imaging was performed from the superior aspect of the liver through the pubic symphysis. Sagittal and coronal reformatted images were obtained on the technologist's workstation. This CT examination was performed using dose optimization techniques as appropriate, variously including the following: *Automated exposure control *Adjustment of mA and/or kV according to patient size (this includes techniques or standardized protocols for targeted exams where dose is matched to indication/reason for exam; i.e. extremities or head) *Use of iterative reconstruction technique DLP: 658 mGy-cm FINDINGS: LUNG BASES: The visualized lung bases are unremarkable. LIVER, GALLBLADDER, AND BILIARY TREE: The liver is normal in size and shape. The liver is low in attenuation suggestive of fatty infiltration. No focal hepatic lesion or biliary ductal dilatation is present. The gallbladder is unremarkable with no evidence of radiopaque gallstones, gallbladder wall thickening, or obvious pericholecystic inflammatory changes. PANCREAS: There is a mass in the tail of the pancreas. This is slightly lobulated in shape. This measures 3.6 x 3.8 cm in transverse and AP dimension. There are small soft tissue densities adjacent to the mass in the surrounding fat. This uncertain whether this represents small varices, small bowel lymph nodes or peritoneal disease. SPLEEN: Unremarkable. ADRENAL GLANDS: Unremarkable. KIDNEYS AND URETERS: There is a 2 cm low-attenuation lesion in the lower pole of the right kidney probably representing a cyst. No imaging follow-up needed. Kidneys are otherwise unremarkable. There is excreted contrast seen in the kidneys from CTA of the brain from earlier the same day. There is no hydronephrosis and the collecting systems are normal. The ureters are well-opacified with excreted contrast and are normal. BLADDER: There is increased soft tissue seen at the base of the bladder likely related to the prostate gland. The bladder is otherwise unremarkable. GASTROINTESTINAL TRACT: There is mild diverticulosis of the colon. The small and large bowel are otherwise unremarkable. The appendix is not seen. The stomach is unremarkable. ABDOMINAL WALL: No significant hernia is appreciated. LYMPH NODES: Normal. VASCULAR: Unremarkable. PELVIC VISCERA: The prostate gland is enlarged and protrudes into the base of the bladder. Prostate gland measures 4.5 x 5 cm in AP and transverse dimension. OSSEOUS STRUCTURES: There are degenerative changes of the spine and hip joints. CT/CT abdomen pelvis wo con IMPRESSION: 3.6 x 3.8 cm lobulated mass in the tail the pancreas suspicious for neoplasm. Fatty liver. Enlarged prostate gland. Right renal cyst. Findings will be communicated by the [place] work flow salsa dance instructor Jillian Headley.
[2021-06-01 11:44] VITALS: BP 187/105; PULSE 92; RESP 18; TEMP 36.6; O2SAT 97; BMI 26.5
[2021-06-01 12:26] VITALS: BP 166/87; PULSE 89; RESP 18; TEMP 36.6; O2SAT 99
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
[2021-06-01 12:38] LABS: MANUAL DIFF FLAG NO
[2021-06-01 12:39] LABS: Basophils Percent Auto 0.3 % (0-2); Eosinophils Percent Auto 0.1 % (0-4); Hematocrit 41.6 % (42-52); Hemoglobin 14.4 g/dl (14.0-18.0); Imm Gran Abs Auto 0.02 X10*3/uL (0.00-0.03); Imm Gran Pct Auto 0.3 % (0.0-0.4); Lymphocytes Absolute Auto 1.5 X10*3/uL (1.2-4.9); Lymphocytes Percent Auto 19.2 % (20-40); Mean Corpuscular HGB Conc 34.6 g/dl (31.0-36.0); Mean Corpuscular Hemoglobin 33.2 pg (27.0-33.0); Mean Corpuscular Volume 95.9 fL (80-98); Mean Platelet Volume 9.1 fL (9.4-12.4); Monocytes Absolute Auto 1.1 X10*3/uL (0.1-1.2); Monocytes Percent Auto 13.6 % (2-11); Neutrophils Absolute Auto 5.3 X10*3/uL (2.0-8.3); Neutrophils Percent Auto 66.5 % (45-73); Platelet Count 195 X10*3/uL (160-400); Red Blood Count 4.34 X10*6/uL (4.60-5.80); Red Cell Distribution Width 12.7 % (11.0-16.0)
[2021-06-01 12:51] LABS: Ethanol < 10 mg/dL
[2021-06-01 12:53] LABS: Alanine Aminotransferase 49 U/L (0-40); Albumin Level 3.4 g/dL (3.5-5.0); Alkaline Phosphatase 109 U/L (39-117); Anion Gap 16 (12-20); Aspartate Amino Transferase 59 U/L (5-37); Bilirubin Direct 0.6 mg/dL (0.0-0.5); Bilirubin Total 1.2 mg/dL (0.0-1.0); Blood Urea Nitrogen 15 mg/dL (9-16); Calcium 9.4 mg/dL (8.4-10.2); Carbon Dioxide 23 mmol/L (22-29); Chloride 106 mmol/L (96-108); Creatinine Clr Calc Pharmacy 59.2; Estimated Glomerular Filt Rate > 60; Glucose Random 146 mg/dL (60-115); Magnesium 1.7 mg/dL (1.6-2.6); Potassium 3.9 mmol/L (3.3-5.1); Sodium 141 mmol/L (135-145); Total Protein 6.9 g/dL (6.5-8.0)
[2021-06-01 12:57] LABS: COVID-19 Test Negative (Negative)
[2021-06-01 14:10] LABS: Appearance Urine HAZY; Color Urine YELLOW; Glucose Urine UA NEG (NEG); Leukocyte Esterase Urine TRACE (NEG); Nitrite Urine NEG (NEG); PH 5.5 (5.0-8.0); Specific Gravity - Urine >= 1.030 (1.005-1.025); UACC Culture Trigger YES; Urine Blood NEG (NEG); Urine Ketones NEG (NEG); Urine Protein 1+ MG/DL (NEG-TRACE)
[2021-06-01 14:17] LABS: Amphetamine Screen Urine Not Detected (Not Detect); Barbiturates, Urine Not Detected (Not Detect); Benzodiazepines Screen Urine Not Detected (Not Detect); Cannabinoid Screen Urine Not Detected (Not Detect); Cocaine Screen Urine Not Detected (Not Detect); Fentanyl, urine Not Detected (Not Detect); Opiate Screen Urine Not Detected (Not Detect); Phencyclidine Screen Urine Not Detected (Not Detect)
[2021-06-01 14:38] LABS: Bacteria Urine 1+ /LPF; Calcium Oxalate Crystals Urine 2+ /LPF; Mucus Urine 1+ /LPF; RBC Urine 0-2 /HPF (0); Squamous Epithelial Cell Urine 1+ /LPF
[2021-06-01] MEDS: iohexoL 350 MG/ML 100 ML INFUS..BTL 70 ML IV (15:35)
--- NOTE | 2021-06-01 15:45 | PHA.MEDREC ---
Pharmacy Consult ? Medication Reconciliation Pharmacy has completed the medication reconciliation. PT TAKES A VERY HIGH DOSE OF CETIRIZINE 40 MG PER COMMUNICATIONS FIELD TECHNICIAN
[2021-06-01 17:10] VITALS: BP 122/62; PULSE 74; RESP 18; TEMP 36.3; O2SAT 96
--- NOTE | 2021-06-01 18:21 | PC.NURSE ---
confirmed bhn info sheet completed for eval
--- NOTE | 2021-06-01 20:20 | PC.NURSE ---
Patient awaiting N consult. Has been seeing skin deformities, and bathing himself in various chemicals at home per family. Patient skin looks WDL. VSS. Labs drawn and sent. IV Placed and flushed. Awaiting MRI.
--- NOTE | 2021-06-01 21:12 | PM.IMHP ---
History of Present Illness Date of Service: 06/01/21 Chief Complaint: Urinary frequency 70-year-old male past medical history of hypertension presented to the hospital with a chief complaint of urinary frequency. Patient reported that he has been having urinary frequency over the past couple days. Denies any fevers. Complains pain his back on left side/flank. Denies any numbness tingling or focal weakness. Patient also complains of intermittent episodes of black stools. Patient mentions that been lately noticing itching like sensation his upper and lower extremities; Denies any chest pain palpitations. Denies any fever chills. Denies any falls or trauma. Review of all other systems is negative except mentioned above ER course: ER team mentioned that did not find any findings on his exam; thought it be paranoid about was the patient is saying about itching sensation/crawling sensation. CT head which showed possible lacunar infarct volume loss-recommended MRI; as they could not obtain history history of pacemaker son neuro stimulators in the spoke to Radiology who recommended x-rays of chest and KUB be ordered which been. Followed by Radiology mentions the urinalysis abnormal. Given ceftriaxone. Admitted for further management. [facility] Medical History HTN (hypertension) Pertinent family history: mother and father had heart disease. Social History Household Members: None Housing: Apartment Patient Tobacco Use Status: Never used Tobacco Use of substances other than those prescribed or required for medical reasons: No Have you been hit, kicked, punched, or otherwise hurt by someone within the past year? If so, by whom?: No Do you feel safe in your current relationship?: No Current Relationship Is there a partner from a previous relationship who is making you feel unsafe now?: No Are you made to feel afraid or neglected: No Advance Directives: No Advance Directives Information Provided: No Do you have thoughts of harming others: None Do you have a plan to hurt others: No Plan Recently lost weight without trying: No How much weight loss: Not applicable Eating poorly because of decreased appetite: No Nutrition screen score: 0 Nutrition Risks: No Nutritional Risk Poor oral hygiene: No Meds Allergies Allergy/AdvReac Type Severity Reaction Status Date / Time meperidine [From DEMEROL] Allergy Unknown UNKNOWN Unverified 05/21/20 14:55 Active Medications: Current Medications Acetaminophen (Acetaminophen 325 Mg Tablet) 650 mg PO Q6H PRN PRN Reason: Pain, Mild (Pain Scale 1-3) Ceftriaxone Sodium 1 gm/ (Sodium Chloride) 50 mls @ 100 mls/hr IV Q24H [facility] Melatonin (Melatonin 3 Mg Tablet) 6 mg PO BEDTIME PRN PRN Reason: Insomnia Pantoprazole Sodium (Pantoprazole Sodium 40 Mg/10 Ml Vial) 40 mg IVPUSH DAILY@0630 [facility] Pharmacy Consult (Consult Rx Perform Med Rec) 1 each MISCELLANE ONCE PRN PRN Reason: Consult order Senna (Sennosides 8.6 Mg Tablet) 17.2 mg PO BEDTIME PRN PRN Reason: Constipation Sodium Chloride (0.9 % Sodium Chloride Flush 3 Ml Syringe) 3 ml IVFLUSH QSHIFT [facility] Home Medications Medication Instructions Recorded Confirmed Last Taken Type amlodipine 10 mg-benazepril 20 mg 1 cap PO DAILY 01/06/21 06/01/21 Unknown History capsule acetaminophen 500 mg capsule 500 mg PO TID PRN 06/01/21 06/01/21 Unknown History aspirin 81 mg chewable tablet 81 mg PO DAILY 06/01/21 06/01/21 Unknown History cetirizine 10 mg tablet 40 mg PO DAILY 06/01/21 06/01/21 Unknown History Physical Exam Vital Signs and Narrative: Vital Signs: Last Vital Signs Temp 97.4 F 06/01/21 17:10 Pulse 74 06/01/21 17:10 Resp 18 06/01/21 17:10 BP 122/62 06/01/21 17:10 Pulse Ox 96 06/01/21 17:10 Body Mass Index 26.5 Gen: Appears be in no acute distress HEENT: NCAT, Moist mucosa. Pulmonary: Vesicular breath sounds, fair air entry CVS: Normal S1-S2 Abdomen: BS+, Soft, Nontender Extremities: Warm well perfused Neuro: Alert and awake. Grossly nonfocal. Grossly nonfocal Results Labs CBC and Chem 7: 06/01/21 12:31 06/01/21 12:31 Labs: Laboratory Results - last 24 hr 06/01/21 06/01/21 06/01/21 12:31 12:31 12:31 MCV 95.9 MCH 33.2 H MCHC 34.6 RDW 12.7 Plt Count 195 MPV 9.1 L Immature Gran % (Auto) 0.3 Neut % (Auto) 66.5 Lymph % (Auto) 19.2 L [place] % (Auto) 13.6 H Eos % (Auto) 0.1 Baso % (Auto) 0.3 Lymph # (Auto) 1.5 [place] # (Auto) 1.1 Eos # (Auto) 0.0 Baso # (Auto) 0.0 Abs Immat Gran (auto) 0.02 Absolute Neuts (auto) 5.3 Absolute Nucleated RBC 0.000 Nucleated RBC % (auto) 0.0 Anion Gap 16 Estim Creat Clear Calc 59.2 Estimated GFR > 60 Random Glucose 146 H Calcium 9.4 Magnesium 1.7 Total Bilirubin 1.2 H Direct Bilirubin 0.6 H AST 59 H ALT 49 H Alkaline Phosphatase 109 Total Protein 6.9 Albumin 3.4 L Urine Color Urine Appearance Urine pH Ur Specific [place] Urine Protein Urine Glucose (UA) Urine Ketones Urine Blood Urine Nitrite Ur Leukocyte Esterase Urine RBC Urine WBC Ur Squamous Epith Cells Calcium Oxalate Crystal Urine Bacteria Urine Mucus Urine Opiates Screen Urine Fentanyl Screen Ur Barbiturates Screen Ur Phencyclidine Scrn Ur Amphetamines Screen U Benzodiazepines Scrn Urine Cocaine Screen U Marijuana (THC) Screen Ethyl Alcohol COVID-19 ([facility]) Negative COVID-19 Clin Com See Note 06/01/21 06/01/21 06/01/21 12:31 13:54 13:54 MCV MCH MCHC RDW Plt Count MPV Immature Gran % (Auto) Neut % (Auto) Lymph % (Auto) [place] % (Auto) Eos % (Auto) Baso % (Auto) Lymph # (Auto) [place] # (Auto) Eos # (Auto) Baso # (Auto) Abs Immat Gran (auto) Absolute Neuts (auto) Absolute Nucleated RBC Nucleated RBC % (auto) Anion Gap Estim Creat Clear Calc Estimated GFR Random Glucose Calcium Magnesium Total Bilirubin Direct Bilirubin AST ALT Alkaline Phosphatase Total Protein Albumin Urine Color YELLOW Urine Appearance HAZY Urine pH 5.5 Ur Specific [place] >= 1.030 H Urine Protein 1+ H Urine Glucose (UA) NEG Urine Ketones NEG Urine Blood NEG Urine Nitrite NEG Ur Leukocyte Esterase TRACE H Urine RBC 0-2 Urine WBC 10-14 H Ur Squamous Epith Cells 1+ Calcium Oxalate Crystal 2+ Urine Bacteria 1+ Urine Mucus 1+ Urine Opiates Screen Not Detected Urine Fentanyl Screen Not Detected Ur Barbiturates Screen Not Detected Ur Phencyclidine Scrn Not Detected Ur Amphetamines Screen Not Detected U Benzodiazepines Scrn Not Detected Urine Cocaine Screen Not Detected U Marijuana (THC) Screen Not Detected Ethyl Alcohol < 10 COVID-19 ([facility]) COVID-19 Clin Com Imaging Radiologist's Impressions: Impressions Head CT 06/01/21 12:36 IMPRESSION: 1. Decreased attenuation right periventricular white matter, likely related to ischemic changes of indeterminate age. No mass effect. Probable old adjacent lacunar infarct under 1 cm. MRI brain with the helpful for further assessment. 2. No intracranial hemorrhage or hematoma. No hydrocephalus or midline shift. 3. Generalized atrophic changes. Head/Neck CTA 06/01/21 13:55 IMPRESSION: There is atlantooccipital assimilation. Otherwise unremarkable examination. No stenosis of the cervical carotid or vertebral arteries. No intracranial large vessel occlusion. There are nonspecific periventricular white matter changes. Otherwise no evidence of acute territorial infarct. Delayed postcontrast images reveal no abnormal mass or enhancement within the intracranial compartment. Chest X-Ray 06/01/21 19:13 IMPRESSION: Unremarkable examination. No radiopaque foreign bodies. KUB X-Ray 06/01/21 19:13 IMPRESSION: No radiopaque foreign bodies. Assessment and Plan (1) Abnormal head CT: Status: Acute (2) UTI (urinary tract infection): Status: Acute 70-year-old male with a past medical history of hypertension presented to the with a chief complaint of urinary frequency Noted to have UTI. UTI: Continue ceftriaxone. Follow cultures. CVA: Lacunar infarcts on the CT head. Neurology consult. Telemetry. Echo with bubble study. Patient on aspirin. Paresthesia the skin: Neurology consulted. Hypertension: Continue home medications. Black stool: Guaiac pending. PPI. DVT prophylaxis: SCD boots Code status: Full code Quality Stroke Does the patient have a stroke diagnosis?: Yes Reason for No Anti-thrombotic by Day Two: Contraindicated (Reports black stool; pending oocult stool ) VTE Prior VTE?: No VTE Risk Level:: Medical - moderate - high VTE Device Contraindication: N/A - Device Ordered VTE Drug Contraindication: Treatment Not Indicated
[2021-06-01] MEDS: cefTRIAXone sodium 1 GM in 0.9 % Sodium Chloride 50 ML IV (22:31)
[2021-06-01] MEDS: 0.9 % Sodium Chloride Flush 3 ML SYRINGE IVFLUSH (22:32)
[2021-06-01 23:52] VITALS: BP 150/73; PULSE 70; RESP 16; TEMP 36.1; O2SAT 97
[2021-06-02] MEDS: Acetaminophen 325 MG TABLET 650 MG PO ×2 (00:01→07:57)
[2021-06-02] MEDS: Melatonin 3 MG TABLET 6 MG PO (00:02)
[2021-06-02 00:05] VITALS: BMI 27.2
[2021-06-02 03:36] VITALS: BP 145/70; PULSE 63; RESP 18; TEMP 36.3; O2SAT 98
[2021-06-02 05:44] LABS: MANUAL DIFF FLAG NO
[2021-06-02 05:52] LABS: Basophils Percent Auto 0.6 % (0-2); Eosinophils Absolute Auto 0.1 X10*3/uL (0.0-0.4); Eosinophils Percent Auto 1.5 % (0-4); Hematocrit 37.6 % (42-52); Hemoglobin 13.2 g/dl (14.0-18.0); Imm Gran Abs Auto 0.01 X10*3/uL (0.00-0.03); Imm Gran Pct Auto 0.2 % (0.0-0.4); Lymphocytes Absolute Auto 1.4 X10*3/uL (1.2-4.9); Lymphocytes Percent Auto 25.2 % (20-40); Mean Corpuscular HGB Conc 35.1 g/dl (31.0-36.0); Mean Corpuscular Hemoglobin 33.7 pg (27.0-33.0); Mean Corpuscular Volume 95.9 fL (80-98); Mean Platelet Volume 9.4 fL (9.4-12.4); Monocytes Absolute Auto 0.7 X10*3/uL (0.1-1.2); Neutrophils Absolute Auto 3.2 X10*3/uL (2.0-8.3); Neutrophils Percent Auto 59.5 % (45-73); Platelet Count 172 X10*3/uL (160-400); Red Blood Count 3.92 X10*6/uL (4.60-5.80); Red Cell Distribution Width 12.6 % (11.0-16.0); White Blood Count 5.4 X10*3/uL (4.8-10.8)
[2021-06-02 06:08] LABS: Anion Gap 11 (12-20); Blood Urea Nitrogen 15 mg/dL (9-16); Calcium 8.6 mg/dL (8.4-10.2); Carbon Dioxide 27 mmol/L (22-29); Chloride 106 mmol/L (96-108); Cholesterol 111 mg/dL; Creatinine Clr Calc Pharmacy 79.4; Estimated Glomerular Filt Rate > 60; Glucose Random 115 mg/dL (60-115); HDL Cholesterol 29 mg/dL; LDL Cholesterol Calculated 54 mg/dl; Potassium 4.3 mmol/L (3.3-5.1); Sodium 140 mmol/L (135-145); Triglycerides 143 mg/dL
[2021-06-02] MEDS: Pantoprazole Sodium 40 MG/10 ML VIAL IVPUSH (06:24)
[2021-06-02] MEDS: 0.9 % Sodium Chloride Flush 3 ML SYRINGE IVFLUSH ×2 (07:56→15:22)
[2021-06-02 08:00] VITALS: BP 161/100; PULSE 80; RESP 17; TEMP 36.4; O2SAT 99
[2021-06-02 08:39] VITALS: BP 160/92
--- NOTE | 2021-06-02 09:35 | P.PNIM_ITS ---
Subjective Subjective Date of Service: 06/02/21 Interval History: cc: pruritis, back pain, melena interval history: pruritis improved, back pain unchanged, no further episodes of melena Cardiovascular Cardiovascular: Reports no additional cardiovascular complaints Respiratory Respiratory: Reports no additional respiratory complaints Physical Exam Vital Signs: Vital Signs: Last Vital Signs Temp 97.6 F 06/02/21 08:00 Pulse 80 06/02/21 08:00 Resp 17 06/02/21 08:00 BP 160/92 H 06/02/21 08:39 Pulse Ox 99 06/02/21 08:00 Body Mass Index 27.2 General: AO X 3, no acute distress Resp: CTA bilateral, no accessory muscles used CVS: S1,S2,RRR GI: soft, non tender, non distended Neuro: motor grossly intact, alert Psych: appropriate affect, appropriate insight Objective Data Active Medications Acetaminophen (Acetaminophen 325 Mg Tablet) 650 mg PO Q6H PRN PRN Reason: Pain, Mild (Pain Scale 1-3) Last Admin: 06/02/21 07:57 Dose: 650 mg Documented by: BHARAT Melatonin (Melatonin 3 Mg Tablet) 6 mg PO BEDTIME PRN PRN Reason: Insomnia Last Admin: 06/02/21 00:02 Dose: 6 mg Documented by: TRACIE Pantoprazole Sodium (Pantoprazole Sodium 40 Mg/10 Ml Vial) 40 mg IVPUSH DAILY@0630 [facility] Last Admin: 06/02/21 06:24 Dose: 40 mg Documented by: TRACIE Pharmacy Consult (Consult Rx Perform Med Rec) 1 each MISCELLANE ONCE PRN PRN Reason: Consult order Senna (Sennosides 8.6 Mg Tablet) 17.2 mg PO BEDTIME PRN PRN Reason: Constipation Sodium Chloride (0.9 % Sodium Chloride Flush 3 Ml Syringe) 3 ml IVFLUSH QSHIFT [facility] Last Admin: 06/02/21 07:56 Dose: 3 ml Documented by: BHARAT Labs CBC & Chem 7: 06/02/21 05:18 06/02/21 05:18 Labs: Laboratory Results - last 24 hr 06/01/21 06/01/21 06/01/21 12:31 12:31 12:31 MCV 95.9 MCH 33.2 H MCHC 34.6 RDW 12.7 Plt Count 195 MPV 9.1 L Immature Gran % (Auto) 0.3 Neut % (Auto) 66.5 Lymph % (Auto) 19.2 L [place] % (Auto) 13.6 H Eos % (Auto) 0.1 Baso % (Auto) 0.3 Lymph # (Auto) 1.5 [place] # (Auto) 1.1 Eos # (Auto) 0.0 Baso # (Auto) 0.0 Abs Immat Gran (auto) 0.02 Absolute Neuts (auto) 5.3 Absolute Nucleated RBC 0.000 Nucleated RBC % (auto) 0.0 Anion Gap 16 Estim Creat Clear Calc 59.2 Estimated GFR > 60 Random Glucose 146 H Calcium 9.4 Magnesium 1.7 Total Bilirubin 1.2 H Direct Bilirubin 0.6 H AST 59 H ALT 49 H Alkaline Phosphatase 109 Total Protein 6.9 Albumin 3.4 L Triglycerides Cholesterol LDL Cholesterol, Calc HDL Cholesterol Urine Color Urine Appearance Urine pH Ur Specific [place] Urine Protein Urine Glucose (UA) Urine Ketones Urine Blood Urine Nitrite Ur Leukocyte Esterase Urine RBC Urine WBC Ur Squamous Epith Cells Calcium Oxalate Crystal Urine Bacteria Urine Mucus Urine Opiates Screen Urine Fentanyl Screen Ur Barbiturates Screen Ur Phencyclidine Scrn Ur Amphetamines Screen U Benzodiazepines Scrn Urine Cocaine Screen U Marijuana (THC) Screen Ethyl Alcohol COVID-19 ([facility]) Negative COVID-19 Clin Com See Note 06/01/21 06/01/21 06/01/21 12:31 13:54 13:54 MCV MCH MCHC RDW Plt Count MPV Immature Gran % (Auto) Neut % (Auto) Lymph % (Auto) [place] % (Auto) Eos % (Auto) Baso % (Auto) Lymph # (Auto) [place] # (Auto) Eos # (Auto) Baso # (Auto) Abs Immat Gran (auto) Absolute Neuts (auto) Absolute Nucleated RBC Nucleated RBC % (auto) Anion Gap Estim Creat Clear Calc Estimated GFR Random Glucose Calcium Magnesium Total Bilirubin Direct Bilirubin AST ALT Alkaline Phosphatase Total Protein Albumin Triglycerides Cholesterol LDL Cholesterol, Calc HDL Cholesterol Urine Color YELLOW Urine Appearance HAZY Urine pH 5.5 Ur Specific [place] >= 1.030 H Urine Protein 1+ H Urine Glucose (UA) NEG Urine Ketones NEG Urine Blood NEG Urine Nitrite NEG Ur Leukocyte Esterase TRACE H Urine RBC 0-2 Urine WBC 10-14 H Ur Squamous Epith Cells 1+ Calcium Oxalate Crystal 2+ Urine Bacteria 1+ Urine Mucus 1+ Urine Opiates Screen Not Detected Urine Fentanyl Screen Not Detected Ur Barbiturates Screen Not Detected Ur Phencyclidine Scrn Not Detected Ur Amphetamines Screen Not Detected U Benzodiazepines Scrn Not Detected Urine Cocaine Screen Not Detected U Marijuana (THC) Screen Not Detected Ethyl Alcohol < 10 COVID-19 ([facility]) COVID-19 Clin Com 06/02/21 06/02/21 05:18 05:18 MCV 95.9 MCH 33.7 H MCHC 35.1 RDW 12.6 Plt Count 172 MPV 9.4 Immature Gran % (Auto) 0.2 Neut % (Auto) 59.5 Lymph % (Auto) 25.2 [place] % (Auto) 13.0 H Eos % (Auto) 1.5 Baso % (Auto) 0.6 Lymph # (Auto) 1.4 [place] # (Auto) 0.7 Eos # (Auto) 0.1 Baso # (Auto) 0.0 Abs Immat Gran (auto) 0.01 Absolute Neuts (auto) 3.2 Absolute Nucleated RBC 0.000 Nucleated RBC % (auto) 0.0 Anion Gap 11 L Estim Creat Clear Calc 79.4 Estimated GFR > 60 Random Glucose 115 Calcium 8.6 D Magnesium Total Bilirubin Direct Bilirubin AST ALT Alkaline Phosphatase Total Protein Albumin Triglycerides 143 Cholesterol 111 LDL Cholesterol, Calc 54 HDL Cholesterol 29 Urine Color Urine Appearance Urine pH Ur Specific [place] Urine Protein Urine Glucose (UA) Urine Ketones Urine Blood Urine Nitrite Ur Leukocyte Esterase Urine RBC Urine WBC Ur Squamous Epith Cells Calcium Oxalate Crystal Urine Bacteria Urine Mucus Urine Opiates Screen Urine Fentanyl Screen Ur Barbiturates Screen Ur Phencyclidine Scrn Ur Amphetamines Screen U Benzodiazepines Scrn Urine Cocaine Screen U Marijuana (THC) Screen Ethyl Alcohol COVID-19 ([facility]) COVID-19 Clin Com Assessment and Plan (1) Pancreatic mass: Status: Acute (2) Melena: Status: Acute (3) HTN (hypertension): Status: Acute Assessment and Plan: 70M presented with pruritis, melena, back pain, CT head in ED showed Decreased attenuation right periventricular white matter, likely related to ischemic changes of indeterminate age, MRI was recommended. pruritis chronic, improved incidental CTH finding doubt acute CVA follow up MRI melena on ppi, monitor cbc, gi eval hold asa back pain CT showing pancreatic tail mass GI.oncology eval htn amlodipine, prasanna-i urinary frequency more likely related to BPH will dc antibiotics dvt prophylaxis - mechanical due to possible gi bleed Quality Stroke Does the patient have a stroke diagnosis?: No Reason for No Anti-thrombotic by Day Two: Contraindicated (Reports black stool; pending oocult stool ) VTE Prior VTE?: No VTE Risk Level:: Medical - moderate - high VTE Device Contraindication: N/A - Device Ordered VTE Drug Contraindication: Treatment Not Tolerated
--- NOTE | 2021-06-02 09:57 | MHC.SLORD ---
Speech Language Pathology Order Status: An order was received for a cognitive assessment when this pt was in the ED. Updated with Dr. Romero, as pt has been admitted and no order has been received. Per Dr. Romero, pt seems cognitively appropriate and a cognitive evaluation is not indicated at this time. Pt is awaiting MRI results and a N consult.
[2021-06-02 10:43] VITALS: BP 135/83; PULSE 81
[2021-06-02] MEDS: amLODIPine Besylate 10 MG TABLET PO (10:43)
[2021-06-02] MEDS: lisinopriL 20 MG TABLET PO (10:43)
[2021-06-02 12:00] VITALS: BP 169/79; PULSE 70; RESP 17; TEMP 36.6; O2SAT 99
--- NOTE | 2021-06-02 12:13 | PM.EVENT ---
Event Note Date of Service: 06/02/21 Event Note: GI Consult-Full note dictated. Hx via patient, RN, and EMR. CT reviewed with Dr. Sanabria in Radiology. Imp: Highly suspicious pancreatic tail mass most c/w a neoplasm. No definitive sign of metastatic disease. He describes dark stool intermittently at home, but he has had no signs of bleeding here and denies any particular GI symptoms. Rec: Check CA 19-9. Agree with Oncology consult. I think the next step would be an [facility] referral to Dr. Luu or Dr. Garner at [facility] surgical oncology for their evaluation. I suspect he will need surgical resection for definitive diagnosis and treatment. I would hold off on a CT-guided biopsy for now. Start a po PPI, but it does not appear that he is having any definitive signs of bleeding so I will hold off on an upper endoscopy. D/W patient in detail. Thanks.
--- NOTE | 2021-06-02 12:36 | P.CNHO_ITS ---
Subjective - Subjective Chief complaint: Left upper quadrant pain Patient: new to practice Consult date: 06/02/21 Requesting Physician: Dr. Romero Primary Care Provider: Benjamin Meadows MD HPI - Consult Narrative Reason for consult: Pancreatic mass Narrative: Gadiel Arevalo is a 70 year old male who has been diagnosed with mass in the pancreatic tail suspicious for malignancy. He had multiple complaints including urinary frequency and left upper quadrant/back pain. CT abdomen/ pelvis without contrast performed 06/01/2021 revealed a mass in the tail of pancreas measuring 3.6 x 3.8 cm. Enlarged prostate gland. Patient does say that his appetite has been down and he has lost weight when specifically asked for it. He also states that he has left upper quadrant and back pain and he feels a swelling in the back. He reports finding of bony protuberances on multiple areas of his body. He denies fever, chills, cough or change in bowel habits. He states that his father had of brain cancer and his brother of esophageal cancer. Review of Systems - Constitutional Reports as per HPI, Reports no additional constitutional complaints - Cardiovascular Reports no additional cardiovascular complaints - Respiratory Reports no additional respiratory complaints Oncology Screenings - ECOG Performance Status ECOG Performance Status: 1 [facility] Medical History: Medical History (Last Updated 06/02/21 @ 09:36 by Conrado Romero MD) HTN (hypertension) Social History: Social History (Last Reviewed 06/01/21 @ 17:57 by Dolores Drake RN) Living Situation History: Household Members: None Housing: Apartment Tobacco History: Patient Tobacco Use Status: Never used Tobacco Substance Use History: Use of substances other than those prescribed or required for medical reasons : No Currently Displaying Signs/Symptoms of Drug Intoxication Withdrawal: No Domestic Abuse History: Have you been hit, kicked, punched, or otherwise hurt by someone within the past year? If so, by whom?: No Do you feel safe in your current relationship?: No Current Relationship Is there a partner from a previous relationship who is making you feel unsafe now?: No Are you made to feel afraid or neglected: No Advance Directives: Advance Directives: No Advance Directives Information Provided: No Homicidal Assessment: Do you have thoughts of harming others: None Do you have a plan to hurt others: No Plan Nutrition Assessment: Recently lost weight without trying: No How much weight loss: Not applicable Eating poorly because of decreased appetite: No Nutrition screen score: 0 Nutrition Risks: No Nutritional Risk Poor oral hygiene: No Home Medications and Allergies Current Medications: Current Medications Acetaminophen (Acetaminophen 325 Mg Tablet) 650 mg PO Q6H PRN PRN Reason: Pain, Mild (Pain Scale 1-3) Last Admin: 06/02/21 07:57 Dose: 650 mg Documented by: Amlodipine Besylate (Amlodipine Besylate 10 Mg Tablet) 10 mg PO DAILY [facility] Last Admin: 06/02/21 10:43 Dose: 10 mg Documented by: Lisinopril (Lisinopril 20 Mg Tablet) 20 mg PO DAILY [facility] Last Admin: 06/02/21 10:43 Dose: 20 mg Documented by: Melatonin (Melatonin 3 Mg Tablet) 6 mg PO BEDTIME PRN PRN Reason: Insomnia Last Admin: 06/02/21 00:02 Dose: 6 mg Documented by: Omeprazole (Omeprazole 20 Mg Capsule.) 20 mg PO DAILY@0630 [facility] Pharmacy Consult (Consult Rx Perform Med Rec) 1 each MISCELLANE ONCE PRN PRN Reason: Consult order Senna (Sennosides 8.6 Mg Tablet) 17.2 mg PO BEDTIME PRN PRN Reason: Constipation Sodium Chloride (0.9 % Sodium Chloride Flush 3 Ml Syringe) 3 ml IVFLUSH [facility] Last Admin: 06/02/21 07:56 Dose: 3 ml Documented by: Home Medications Medication Instructions Recorded Confirmed Type amlodipine 10 mg-benazepril 20 mg 1 cap PO DAILY 01/06/21 06/01/21 History capsule acetaminophen 500 mg capsule 500 mg PO TID PRN 06/01/21 06/01/21 History aspirin 81 mg chewable tablet 81 mg PO DAILY 06/01/21 06/01/21 History cetirizine 10 mg tablet 40 mg PO DAILY 06/01/21 06/01/21 History Allergies Allergy/AdvReac Type Severity Reaction Status Date / Time meperidine [From DEMEROL] Allergy Unknown UNKNOWN Verified 06/02/21 06:22 Physical Exam Vital signs: Vital Signs Temp 97.8 F 06/02/21 12:00 Pulse 70 06/02/21 12:00 Resp 17 06/02/21 12:00 BP 169/79 H 06/02/21 12:00 Pulse Ox 99 06/02/21 12:00 Intake & Output 06/01/21 06/02/21 06/02/21 18:59 06:59 18:59 Intake Total 250 / 250 Balance 250 / 250 Intake: Intake, Oral Amount 200 / 200 Intake, IV Amount 50 / 50 cefTRIAXone sodium 1 gm In 0.9 50 / 50 % Sodium Chloride 50 ml @ 100 mls/hr IV Q24H [facility] Rx#: [id number] Other: Number of Unmeasured Voids 2 Urine Bathroom Weight 83.915 kg 86.1 kg Weight in Grams 42020 Weight 86.1 kg - Constitutional Present: no acute distress - Routine HEENT Exam Head: Present: normal inspection Eye: Present: EOMI - Routine Neck Exam Present: supple Comments: Palpable submandibular lymph nodes - Routine Respiratory Exam Present: CTAB. Absent: accessory muscle use - Routine Cardiovascular Exam Cardiovascular: Present: S1, S2 - Routine Abdominal Exam Present: soft - Routine Extremities Exam Present: normal inspection, pulses intact - Routine Skin Exam Present: intact. Absent: cyanosis - Routine Neurological Exam Present: alert, oriented X3 Hem/Onc Consult Result - Labs CBC & Chem 7: 06/02/21 05:18 06/02/21 05:18 Labs: Short CBC 06/01/21 06/02/21 Range/Units 12:31 05:18 WBC 8.0 5.4 (4.8-10.8) X10*3/uL Hgb 14.4 13.2 L (14.0-18.0) g/dl Hct 41.6 L 37.6 L (42-52) % Plt Count 195 172 (160-400) X10*3/uL BMP 06/01/21 06/02/21 12:31 05:18 Sodium 141 140 Potassium 3.9 4.3 Chloride 106 106 Carbon Dioxide 23 27 BUN 15 15 Creatinine 1.18 0.88 Calcium 9.4 8.6 D Liver Function 06/01/21 Range/Units 12:31 Total Bilirubin 1.2 H (0.0-1.0) mg/dL Direct Bilirubin 0.6 H (0.0-0.5) mg/dL AST 59 H (5-37) U/L ALT 49 H (0-40) U/L Alkaline Phosphatase 109 (39-117) U/L Albumin 3.4 L (3.5-5.0) g/dL Urine 06/01/21 Range/Units 13:54 Urine Color YELLOW Urine Appearance HAZY Urine pH 5.5 (5.0-8.0) Ur Specific [place] >= 1.030 H (1.005-1.025) Urine Protein 1+ H (NEG-TRACE) MG/DL Urine Glucose (UA) NEG (NEG) MG/DL Assessment and Plan Patient Active problem list reviewed?: Yes (1) Pancreatic mass Status: Acute Assessment and plan: 1. This is a 70-year-old male found to have mass in the tail of pancreas measuring 3.6 x 3.8 cm, which is suspicious for primary pancreatic malignancy. I am not sure that this explains his symptoms of pain altogether. There is no evidence of significant local spread, this was a noncontrast CT study. He reports pleuritic pain in his left posterior chest wall. I would recommend a CT angiogram to rule out pulmonary embolism and also distant spread. CA 19-9 level has been ordered. If he has no evidence of metastatic disease, he should be r eferred to surgical oncologist at [facility] as recommended by Dr. Robles. I thank you for this consultation. - Time Spent With Patient Time Spent with Patient (in minutes): 25
[2021-06-02] MEDS: Omeprazole 20 MG CAPSULE.DR PO (13:39)
--- NOTE | 2021-06-02 14:47 | MHC.CM.PN ---
PATIENT ASLEEP AT TIME OF ASSESSMENT ATTEMPT. CASE MANAGEMENT TO RETURN
[2021-06-02 15:26] VITALS: BP 129/74; PULSE 56; RESP 18; TEMP 36.9; O2SAT 98
[2021-06-02] MEDS: iohexoL 350 MG/ML 100 ML INFUS..BTL IV (16:16)
--- NOTE | 2021-06-02 16:53 | P.DS_ITS ---
DS: Providers Provider Date of Service: 06/02/21 Date of admission: 06/01/21 21:06 Primary care physician: Benjamin Meadows MD Consults: 06/01/21 17:28 Consult to Crisis Stat Reason for consultation: paranoid delusions 06/02/21 09:06 Consult to Gastroenterology Routine Consulting Provider: Klever Robles Reason for consultation: melena, new mass pancreatic tail 06/02/21 09:09 Consult to Hematology / Oncology Routine Consulting Provider: Juan Antonio Garcia Reason for consultation: mass pancreatic tail DS: Diagnosis Discharge Diagnosis (1) Pancreatic mass: Status: Acute DS: Summary Hospital Course Hospital Course: Patient initially presented with pruritus, CT head in the ED showed possible CVA age-indeterminate, patient was admitted to rule out CVA, MRI was negative for CVA. Patient also been complaining of flank pain therefore CT abdomen pelvis was done. This showed incidental finding of 3 cm pancreatic tail mass concerning for neoplasm. He was seen by Gastroenterology and Oncology. Re commendations were to follow up with Surgical Oncology for further workup as outpatient. Patient also had a CTA of the chest to rule out PE which was negative also did not show any distant metastasis. Patient had also been complaining of melena however this did not recur and he did not have any significant drop in hemoglobin. This can be followed as outpatient. he does have a ca 19-9 pending. Time Spent with Patient Time attestation: Total time spent providing and/or coordinating discharge services: Discharge coordination time: Greater than 30 minutes Quality: Stroke Does the patient have a stroke diagnosis?: No Physical Exam Vital Signs: Vital Signs: Last Vital Signs Temp 98.5 F 06/02/21 15:26 Pulse 56 06/02/21 15:26 Resp 18 06/02/21 15:26 BP 129/74 06/02/21 15:26 Pulse Ox 98 06/02/21 15:26 Body Mass Index 27.2 General: AO X 3, no acute distress Resp: CTA bilateral, no accessory muscles used CVS: S1,S2,RRR GI: soft, non tender, non distended Neuro: motor grossly intact, alert Psych: appropriate affect, appropriate insight DS: Data Data Completed and Pending Labs on day of discharge: Laboratory Results - last 24 hr 06/02/21 06/02/21 05:18 05:18 WBC 5.4 RBC 3.92 L Hgb 13.2 L Hct 37.6 L MCV 95.9 MCH 33.7 H MCHC 35.1 RDW 12.6 Plt Count 172 MPV 9.4 Immature Gran % (Auto) 0.2 Neut % (Auto) 59.5 Lymph % (Auto) 25.2 [place] % (Auto) 13.0 H Eos % (Auto) 1.5 Baso % (Auto) 0.6 Lymph # (Auto) 1.4 [place] # (Auto) 0.7 Eos # (Auto) 0.1 Baso # (Auto) 0.0 Abs Immat Gran (auto) 0.01 Absolute Neuts (auto) 3.2 Absolute Nucleated RBC 0.000 Nucleated RBC % (auto) 0.0 Sodium 140 Potassium 4.3 Chloride 106 Carbon Dioxide 27 Anion Gap 11 L BUN 15 Creatinine 0.88 Estim Creat Clear Calc 79.4 Estimated GFR > 60 Random Glucose 115 Calcium 8.6 D Triglycerides 143 Cholesterol 111 LDL Cholesterol, Calc 54 HDL Cholesterol 29 Preliminary micro results at discharge 06/01/21 16:06 Urine Culture - Preliminary Urine clean catch - Urine lott top Culture too young to evaluate. Discharge Plan Discharge Patient Disposition: Home, Self-Care Discharge Diagnosis: pancreatic tail mass Referrals: Harlan Garner MD [Physician] - 1 Week (pancreatic tail mass) Benjamin Meadows MD [Primary Care Provider] - 1 Week Discharge Medications: Continued amlodipine-benazepril 10-20 mg capsule 1 cap PO DAILY RF: 0 cetirizine 10 mg Tablet 40 mg PO DAILY RF: 0 aspirin 81 mg Tablet,Chewable 81 mg PO DAILY RF: 0 acetaminophen 500 mg Capsule 500 mg PO TID PRN (Reason: Pain, Mild) RF: 0 Discharge Orders: Discharge Order (Routine); Ordered 06/02/21 Ordered By: Conrado Romero Diet: advance to usual diet Activity on Discharge: As tolerated Stand Alone Forms: Patient Portal Discharge page Care Plan Goals: Workup pancreatic tail mass Health Concerns: Pancreatic tail mass Plan of Treatment: Follow-up with oncological surgery Assessment: See above
--- NOTE | 2021-06-02 18:54 | CONS_ITS ---
DATE OF SERVICE: 06/02/2021 REASON FOR CONSULTATION: Pancreatic mass and question of melena. HISTORY OF PRESENT ILLNESS: This has been obtained from the patient, his nurse, and the medical record. I did review his CAT scan with Dr. Sanabria in Radiology as well. The patient is a 70-year-old male, who was admitted here yesterday with a variety of symptoms including some somatic complaints of various discomfort and some back discomfort. He also describes having had some intermittent dark stools at home. In general, he denies any chronic GI complaints such as significant heartburn, dysphagia, nausea, nor vomiting. He does report a somewhat diminished appetite over the past month or two, but denies any weight loss. He describes his bowel movements are somewhat irregular and with occasionally dark stool, but without any definitive melena nor any signs of hematochezia. He does describe a very diffuse pain throughout his upper chest and throughout his abdomen, as well as in his back, particularly on the left side. He denies any urinary symptoms such as hematuria nor dysuria. He does have a distant history of alcohol abuse, but describes sobriety for about 30 years other than taking a little sips of alcohol at night to help him sleep. He does not smoke. He denies any chronic use of NSAIDs, but does use one low-dose aspirin daily by his description. Since his hospitalization here, he has had no bowel movements and no signs of bleeding. MEDICATIONS: At home include acetaminophen, amlodipine, aspirin, and Zyrtec. Medications here include IV pantoprazole, acetaminophen, amlodipine, lisinopril, melatonin, Senokot p.r.n. PAST MEDICAL HISTORY: Hypertension. Appendectomy. He describes allergies. He denies any history of MS, stroke, diabetes, lung disease, or kidney disease. SOCIAL HISTORY: He is single. He does not smoke. Alcohol as above. FAMILY HISTORY: Noncontributory. REVIEW OF SYSTEMS: CONSTITUTIONAL: He does describe some diminished appetite. SKIN: He does have lot of somatic complaints on the skin including some itching and discomfort. CARDIAC: No chest pain. PULMONARY: No cough. No hemoptysis. GASTROINTESTINAL: As above. PHYSICAL EXAMINATION: GENERAL: The patient is a pleasant, cooperative, alert male. SKIN: Warm and dry. Nonjaundiced. HEENT: Anicteric sclerae. CHEST: Clear. CARDIAC: Normal S1, S2. ABDOMEN: Soft, nondistended, normal bowel sounds, nontender without palpable mass. EXTREMITIES: Without edema. LABORATORY DATA: His CT scan of the abdomen is notable for a highly suspicious solid appearing mass in the tail of the pancreas measuring around 4 cm in size. There are no obvious signs of metastatic disease. There is no sign of any liver lesions, gross lymphadenopathy, nor any intraabdominal fluid. Chest x-ray was unremarkable. He did have an ultrasound in January of 2021 describing some gallstones, but no sign of any biliary disease. White blood cell count 5.4, hemoglobin 13.2, MCV 96, platelets 172,000. BUN 15, creatinine 0.9. Normal electrolytes. Total bilirubin yesterday was 1.2 with direct bilirubin of 0.6. AST 59, ALT 49, and alkaline phosphatase 109. Albumin is 3.4. IMPRESSION: Given the patient's CT scan findings, this is highly suspicious for a neoplastic process involving the tail of the pancreas. He does not appear to have any definitive sign of metastatic disease on the CT scan. He does not appear to be having any ongoing issues with pancreatitis. Given the gross appearance of this lesion in the tail of the pancreas, I would suspect this is a neoplasm and would recommend referral to a surgical oncologist at [facility], Dr. Luu or Dr. Garner, as soon as possible. This would need to be done as an outpatient. I would hold off on a CT-guided biopsy given the high chance this is neoplastic and the theoretical increased incidence of tumor spread by percutaneous biopsies. I do not think an endoscopic ultrasound would be helpful here given the location of the tumor. Given the gross appearance, I suspect surgery would be the definitive next step both for treatment and diagnostic purposes. I have ordered a CA 19-9 and lipase level. In regard to the reported dark stool, this does not sound like definitive melena or GI bleeding. Given no signs of bleeding here at all and no particular GI symptoms, I would hold off an endoscopy for the time being. However, I would switch the IV PPI to an oral omeprazole. He should be advised to hold his aspirin at home. I did review all this in detail with him, particularly the importance of the finding on the CAT scan and the need for prompt outpatient evaluation by one of the surgical oncologist at [facility]. I did review this with Dr. Romero as well. Thank you for this consultation. MD RANDELL Rodriguez/AWA / [id number]
[2021-06-04 11:51] LABS: Carbohydrate Antigen 19-9 15 U/mL (<34)
== END 2021-06-02 18:17 | disposition home or self-care (01) | DRG 436 ==
LOC: HO.ED 17:36 → HO.EDOVER 22:11 → HO.S3 23:09
PROVIDERS: Internal Medicine; Physician Assistant; Admitting Provider Hospitalist; Emergency Provider Emergency Medicine; PCP Internal Medicine; Visit Provider Internal Medicine
DX: C25.2 Malignant neoplasm of tail of pancreas (principal); K92.1 Melena; I10 Essential (primary) hypertension; F10.11 Alcohol abuse, in remission; N40.1 Benign prostatic hyperplasia with lower urinary tract symptoms; R35.0 Frequency of micturition; F32.9 Major depressive disorder, single episode, unspecified; Z20.822 Contact with and (suspected) exposure to COVID-19; Z79.82 Long term (current) use of aspirin; Z79.899 Other long term (current) drug therapy
CPT/HCPCS: 36415; 70450; 70496; 70498; 70551; 71045; 71275; 74018; 74176; 80048; 80061; 80076; 80307; 81001; 82077; 83735; 85025; 86301; 87086; 87635; 99285; J0696; Q9967

== ENCOUNTER 2021-06-03 12:01 | Inpatient (IN) | payer MEDICARE, SELFPAY ==
[2021-06-03] VITALS (8 sets, daily range): BP systolic 86–147; BP diastolic 55–90; PULSE 65–112; RESP 16–18; TEMP 36.6; O2SAT 96–98; BMI 26.5
--- NOTE | ~2021-06-03 | XR_ITS ---
EXAMINATION: XR CHEST CLINICAL INFORMATION: Pneumonia COMPARISON: CTA chest 06/02/2021, chest x-ray 06/01/2021 TECHNIQUE: Frontal view of the chest was obtained. FINDINGS: Tortuous aorta. Normal heart size. No focal consolidation or mass. No pleural effusion or pneumothorax. No pulmonary edema. Degenerative changes of the shoulders and spine. XR/XR chest 1V IMPRESSION: No acute pulmonary disease. No significant change from prior study.
--- NOTE | ~2021-06-03 | CT_ITS ---
EXAMINATION: CT ABDOMEN AND PELVIS WITHOUT CONTRAST CLINICAL INFORMATION: Abdominal pain COMPARISON: 06/01/2021 TECHNIQUE: Multidetector volumetric imaging was performed from the superior aspect of the liver through the pubic symphysis. Sagittal and coronal reformatted images were obtained on the technologist's workstation. This CT examination was performed using dose optimization techniques as appropriate, variously including the following: *Automated exposure control *Adjustment of mA and/or kV according to patient size (this includes techniques or standardized protocols for targeted exams where dose is matched to indication/reason for exam; i.e. extremities or head) *Use of iterative reconstruction technique DLP: 635 mGy-cm FINDINGS: LUNG BASES: There is a 0.3 cm right lower lobe pulmonary nodule on series 4 image 40, unchanged. Minimal bibasilar atelectasis. The visualized cardiac structures are unremarkable. LIVER, GALLBLADDER, AND BILIARY TREE: The liver is normal in size and shape with decreased attenuation. No focal hepatic lesion or biliary ductal dilatation is present. The gallbladder is unremarkable with no evidence of radiopaque gallstones, gallbladder wall thickening, or obvious pericholecystic inflammatory changes. PANCREAS: Pancreatic tail mass is again noted. This measures 3.6 cm with lobulated Contour. No pancreatic ductal dilatation. Increased inflammatory change the region of the pancreatic tail. SPLEEN: Unremarkable. ADRENAL GLANDS: Unremarkable. KIDNEYS AND URETERS: The kidneys are normal in size, shape, and attenuation. No hydronephrosis, hydroureter, or calculi seen. Symmetric perinephric stranding. 1.8 cm right lower pole simple renal cyst. No follow-up imaging recommended. BLADDER: Normally distended without wall thickening. Contrast noted in the bladder. GASTROINTESTINAL TRACT: The stomach is unremarkable. Normal caliber small bowel. There is no obstruction. No colonic wall thickening or acute inflammation. Scattered diverticulosis without diverticulitis. ABDOMINAL WALL: No significant hernia is appreciated. LYMPH NODES: Normal. VASCULAR: Normal caliber aorta with mild atherosclerotic calcification. PELVIC VISCERA: Enlarged and calcified prostate. The prostate measures 5.7 cm transverse. OSSEOUS STRUCTURES: No acute or suspicious osseous abnormality. Mild degenerative changes of the spine. CT/CT abdomen pelvis wo con IMPRESSION: Redemonstration of the pancreatic tail mass, suspicious for neoplasm. Increased inflammatory stranding in the region of the pancreatic tail may represent an associated pancreatitis.
[2021-06-03 12:46] LABS: MANUAL DIFF FLAG NO
[2021-06-03 12:47] LABS: Basophils Percent Auto 0.2 % (0-2); Eosinophils Absolute Auto 0.1 X10*3/uL (0.0-0.4); Eosinophils Percent Auto 1.6 % (0-4); Hematocrit 41.5 % (42-52); Hemoglobin 14.2 g/dl (14.0-18.0); Imm Gran Abs Auto 0.01 X10*3/uL (0.00-0.03); Imm Gran Pct Auto 0.2 % (0.0-0.4); Lymphocytes Absolute Auto 1.9 X10*3/uL (1.2-4.9); Lymphocytes Percent Auto 29.8 % (20-40); Mean Corpuscular HGB Conc 34.2 g/dl (31.0-36.0); Mean Corpuscular Hemoglobin 32.9 pg (27.0-33.0); Mean Corpuscular Volume 96.1 fL (80-98); Mean Platelet Volume 9.1 fL (9.4-12.4); Monocytes Absolute Auto 0.7 X10*3/uL (0.1-1.2); Monocytes Percent Auto 11.7 % (2-11); Neutrophils Absolute Auto 3.6 X10*3/uL (2.0-8.3); Neutrophils Percent Auto 56.5 % (45-73); Platelet Count 192 X10*3/uL (160-400); Red Blood Count 4.32 X10*6/uL (4.60-5.80); Red Cell Distribution Width 12.6 % (11.0-16.0); White Blood Count 6.3 X10*3/uL (4.8-10.8)
[2021-06-03 13:03] LABS: Lactic Acid 2.5 mmol/L (0.5-2.0)
[2021-06-03 13:11] LABS: Anion Gap 16 (12-20); Blood Urea Nitrogen 13 mg/dL (9-16); Calcium 8.4 mg/dL (8.4-10.2); Carbon Dioxide 24 mmol/L (22-29); Chloride 104 mmol/L (96-108); Creatinine Clr Calc Pharmacy 51.4; Estimated Glomerular Filt Rate 52; Glucose Random 104 mg/dL (60-115); Potassium 3.7 mmol/L (3.3-5.1); Sodium 140 mmol/L (135-145)
[2021-06-03] MEDS: 0.9 % Sodium Chloride 1,000 ML 999 ML IVCONT ×2 (13:13→14:43)
--- NOTE | 2021-06-03 13:22 | ED_ITS ---
HPI - General Adult General Chief complaint: General Medical Stated complaint: LOW BP 58/42 PEER MD,108/67 PER EMS Time Seen by Provider: 06/03/21 12:02 Source: patient and EMS Mode of arrival: EMS Limitations: no limitations History of Present Illness HPI narrative: 70 y/o male with history of paranoid delusions, HTN and recent admission to [facility] for UTI and newly diagnosed 3cm pancreatic mass who presents to the ER via EMS from his PCP office where he was found to be hypotensive 58/42. He reports feeling fatigued and has not slept in days. Urine culture 50-100,000 CFU with mixed gena. He was not discharged on antibiotics. He reports chronic issues getting his urine stream started due to a tumor. He denies nausea, vomiting, diarrhea, fevers, dysuria or blood in his urine. He is on combo amlodipine/benazepril for HTN. MD complaint: hypotension Onset (ago): minute(s) Radiation: non-radiation Severity: moderate Quality: other (fatigue) Pain Consistency: intermittent Relieving factors: none Exacerbating factors: none Associated symptoms: loss of appetite and weakness Treatments prior to arrival: none Related Data Home Medications Medication Instructions Recorded Confirmed amlodipine 10 mg-benazepril 20 mg 1 cap PO DAILY 01/06/21 06/01/21 capsule acetaminophen 500 mg capsule 500 mg PO TID PRN 06/01/21 06/01/21 aspirin 81 mg chewable tablet 81 mg PO DAILY 06/01/21 06/01/21 cetirizine 10 mg tablet 40 mg PO DAILY 06/01/21 06/01/21 Previous Rx's Medication Instructions Recorded cefuroxime axetil 500 mg tablet 500 mg PO BID #14 tab 06/03/21 Allergies Allergy/AdvReac Type Severity Reaction Status Date / Time meperidine [From DEMEROL] Allergy Unknown UNKNOWN Verified 06/02/21 06:22 [facility] Past Medical History Medical History (Updated 06/03/21 @ 17:30 by UTE Torres) HTN (hypertension) Social History Social History Household Members: None Housing: Apartment Alcohol intake: current Alcohol intake frequency: 0-2 drinks per day Patient Tobacco Use Status: Never used Tobacco Use of substances other than those prescribed or required for medical reasons: No Advance Directives: No Advance Directives Information Provided: No Physical Exam Vital Signs: Vital Signs: Last Vital Signs Temp 98 F 06/03/21 12:20 Pulse 97 06/03/21 16:34 Resp 16 06/03/21 16:34 BP 147/82 H 06/03/21 16:34 Pulse Ox 96 06/03/21 14:38 Body Mass Index 26.5 Appearance: Alert. Oriented X3. No acute distress. Eyes: Pupils equal, round and reactive to light. ENT: Pharynx normal. Poor dentition Neck: Normal inspection. Neck supple. CVS: Normal heart rate and rhythm. Pulses normal. Respiratory: No respiratory distress. Breath sounds normal. Abdomen: Soft with mild epigastric tenderness. +BS x4 Skin: Skin warm and dry. Normal skin color. Normal skin turgor. No rashes. Extremities: No lower extremity edema. Neuro: Oriented X 3. No motor deficit. No sensory deficit. Paranoia and focus ed on skin issues Course Course Course Narrative: 70 y/o male presenting for evaluation of hypotension noted at PCP office today. He feels tired and has not been sleeping but he denies lightheaded or dizziness. No chest pain or SOB. Reevaluation(s) Reevaluation #1: BP 111/68 supine and dropped to 86/55 when sitting up. Getting 2 liters of IVF. He is complaining of ongoing abdominal pain, going on for months. Reevaluation #2: VS repeated and he is no longer orthostatic. Lactic acid remains slightly elevated at 2.5 after 1.5L of fluids, rest of 2nd liter is still infusing. Will check 1 more lactic acid, doubt infection related, question due to cancer? Reevaluation #3: UA showing infection. He was already given Rocephin for possible UTI. He remains afebrile, no leukocytosis. BP remains stable 120 systolic. Plan to repeat lactic acid and if normalized ok to send home on PO abx with outpatient follow up. If elevated lactic acid persists, may require admission. Signed out to Melvin Gregorio who will follow up. Medical Decision Making Lab Data Result diagrams: 06/03/21 12:42 06/03/21 12:42 Labs: Lab Results 06/03/21 06/03/21 06/03/21 Range/Units 12:42 12:42 12:42 WBC 6.3 (4.8-10.8) X10*3/uL RBC 4.32 L (4.60-5.80) X10*6/uL Hgb 14.2 (14.0-18.0) g/dl Hct 41.5 L (42-52) % MCV 96.1 (80-98) fL MCH 32.9 (27.0-33.0) pg MCHC 34.2 (31.0-36.0) g/dl RDW 12.6 (11.0-16.0) % Plt Count 192 (160-400) X10*3/uL MPV 9.1 L (9.4-12.4) fL Immature Gran % (Auto) 0.2 (0.0-0.4) % Neut % (Auto) 56.5 (45-73) % Lymph % (Auto) 29.8 (20-40) % [place] % (Auto) 11.7 H (2-11) % Eos % (Auto) 1.6 (0-4) % Baso % (Auto) 0.2 (0-2) % Lymph # (Auto) 1.9 (1.2-4.9) X10*3/uL [place] # (Auto) 0.7 (0.1-1.2) X10*3/uL Eos # (Auto) 0.1 (0.0-0.4) X10*3/uL Baso # (Auto) 0.0 (0.0-0.2) X10*3/uL Abs Immat Gran (auto) 0.01 (0.00-0.03) X10*3/uL Absolute Neuts (auto) 3.6 (2.0-8.3) X10*3/uL Absolute Nucleated RBC 0.000 (0.0-0.012) X10*3/uL Nucleated RBC % (auto) 0.0 (0.0-0.2) /100WBC Sodium 140 (135-145) mmol/L Potassium 3.7 (3.3-5.1) mmol/L Chloride 104 (96-108) mmol/L Carbon Dioxide 24 (22-29) mmol/L Anion Gap 16 (12-20) BUN 13 (9-16) mg/dL Creatinine 1.36 (0.5-1.4) mg/dL Estim Creat Clear Calc 51.4 Estimated GFR 52 Random Glucose 104 (60-115) mg/dL Lactic Acid 2.5 H* (0.5-2.0) mmol/L Lactic Acid Fup @ 2Hr (0.5-2.0) mmol/L Calcium 8.4 (8.4-10.2) mg/dL Urine Color Urine Appearance Urine pH (5.0-8.0) Ur Specific [place] (1.005-1.025) Urine Protein (NEG-TRACE) MG/DL Urine Glucose (UA) (NEG) MG/DL Urine Ketones (NEG) MG/DL Urine Blood (NEG) Urine Nitrite (NEG) Ur Leukocyte Esterase (NEG) Urine RBC (0) /HPF Urine WBC (0-4) /HPF Ur Squamous Epith Cells /LPF Urine Bacteria /LPF 06/03/21 06/03/21 Range/Units 15:14 16:37 WBC (4.8-10.8) X10*3/uL RBC (4.60-5.80) X10*6/uL Hgb (14.0-18.0) g/dl Hct (42-52) % MCV (80-98) fL MCH (27.0-33.0) pg MCHC (31.0-36.0) g/dl RDW (11.0-16.0) % Plt Count (160-400) X10*3/uL MPV (9.4-12.4) fL Immature Gran % (Auto) (0.0-0.4) % Neut % (Auto) (45-73) % Lymph % (Auto) (20-40) % [place] % (Auto) (2-11) % Eos % (Auto) (0-4) % Baso % (Auto) (0-2) % Lymph # (Auto) (1.2-4.9) X10*3/uL [place] # (Auto) (0.1-1.2) X10*3/uL Eos # (Auto) (0.0-0.4) X10*3/uL Baso # (Auto) (0.0-0.2) X10*3/uL Abs Immat Gran (auto) (0.00-0.03) X10*3/uL Absolute Neuts (auto) (2.0-8.3) X10*3/uL Absolute Nucleated RBC (0.0-0.012) X10*3/uL Nucleated RBC % (auto) (0.0-0.2) /100WBC Sodium (135-145) mmol/L Potassium (3.3-5.1) mmol/L Chloride (96-108) mmol/L Carbon Dioxide (22-29) mmol/L Anion Gap (12-20) BUN (9-16) mg/dL Creatinine (0.5-1.4) mg/dL Estim Creat Clear Calc Estimated GFR Random Glucose (60-115) mg/dL Lactic Acid (0.5-2.0) mmol/L Lactic Acid Fup @ 2Hr 2.5 H* (0.5-2.0) mmol/L Calcium (8.4-10.2) mg/dL Urine Color YELLOW Urine Appearance CLEAR Urine pH 6.0 (5.0-8.0) Ur Specific [place] <= 1.005 (1.005-1.025) Urine Protein NEG (NEG-TRACE) MG/DL Urine Glucose (UA) NEG (NEG) MG/DL Urine Ketones NEG (NEG) MG/DL Urine Blood NEG (NEG) Urine Nitrite NEG (NEG) Ur Leukocyte Esterase 2+ H (NEG) Urine RBC 1-4 (0) /HPF Urine WBC 10-14 H (0-4) /HPF Ur Squamous Epith Cells NONE /LPF Urine Bacteria TRACE /LPF Critical Care Time Critical Care Time Critical Care Time: Yes Total Critical Care Time: 42 Attestation: I have personally provided critical care time exclusive of time spent on separately billable procedures. Time includes review of lab data, radiology results, discussion with consultants, and monitoring for potential decompensation. Intervention performed as documented. Discharge Plan Discharge Clinical Impression: Acute UTI Patient Disposition: Home, Self-Care Instructions: Urinary Tract Infection in Men (ED) Additional Instructions: Your urine test showed infection. You were given IV antibiotic in the ER. Start taking the prescribed antibiotic tomorrow morning. Drink plenty of water. Follow up with your GI and Oncology doctor. Also recommend following up with your primary care doctor. If you develop new or worsening symptoms call 911 or come back to the ER for further evaluation. Prescriptions: New cefuroxime axetil 500 mg tablet 500 mg PO BID Qty: 14 RF: 0 No Action amlodipine-benazepril 10-20 mg capsule 1 cap PO DAILY RF: 0 cetirizine 10 mg Tablet 40 mg PO DAILY RF: 0 aspirin 81 mg Tablet,Chewable 81 mg PO DAILY RF: 0 acetaminophen 500 mg Capsule 500 mg PO TID PRN (Reason: Pain, Mild) RF: 0 Referrals: Klever Robles [Physician] - 2 days (pancreatic mass, abdominal pain) Juan Antonio Garcia MD [Physician] - 2 days (pancreatic mass)
[2021-06-03 14:44] LABS: Reflex Lactate? Lactic Acid Added
[2021-06-03] MEDS: cefTRIAXone sodium 1 GM in 0.9 % Sodium Chloride 50 ML IV (15:16)
[2021-06-03 15:38] LABS: ~Lactic Acid-LAB USE ONLY 2.5 mmol/L (0.5-2.0)
[2021-06-03 16:46] LABS: Appearance Urine CLEAR; Color Urine YELLOW; Glucose Urine UA NEG (NEG); Leukocyte Esterase Urine 2+ (NEG); Nitrite Urine NEG (NEG); Specific Gravity - Urine <= 1.005 (1.005-1.025); UACC Culture Trigger YES; Urine Blood NEG (NEG); Urine Ketones NEG (NEG); Urine Protein NEG (NEG-TRACE)
[2021-06-03 16:55] LABS: Bacteria Urine TRACE /LPF
[2021-06-03 17:17] LABS: Reflex Lactate? 2 Y
[2021-06-03 19:08] LABS: ~Lactic Acid-LAB USE ONLY 2.6 mmol/L (0.5-2.0)
[2021-06-03] MEDS: 0.9 % Sodium Chloride 1,000 ML 999 ML IV (19:53)
[2021-06-03 19:58] LABS: Alanine Aminotransferase 40 U/L (0-40); Albumin Level 3.3 g/dL (3.5-5.0); Alkaline Phosphatase 100 U/L (39-117); Aspartate Amino Transferase 55 U/L (5-37); Bilirubin Direct 0.3 mg/dL (0.0-0.5); Bilirubin Total 0.6 mg/dL (0.0-1.0); Total Protein 6.5 g/dL (6.5-8.0)
--- NOTE | 2021-06-03 20:31 | PC.NURSE ---
PT REQUESTING FOOD. PA WANTS PT TO WAIT UNTIL HOSPITALIST IN ROOM.
--- NOTE | 2021-06-03 20:44 | PC.NURSE ---
hospitalist in room for eval.
[2021-06-03 21:36] LABS: Lactic Acid 1.1 mmol/L (0.5-2.0)
--- NOTE | 2021-06-03 21:37 | PM.IMHP ---
History of Present Illness Date of Service: 06/03/21 Chief Complaint: Low blood pressure 70-year-old male with a past medical history of hypertension, pancreatic mass presented to the hospital with a chief complaint of low blood pressure. Patient had a recent admission to the hospital for pruritus/abdominal discomfort; also concern for CVA-MRI showed no acute infarcts. Incidentally found to have pancreatic mass; patient was seen by Oncology and Gastroenterology and suggested to follow-up with Surgical Oncology as outpatient. Patient today presents to the hospital with a chief complaint of low blood pressure; mentioned that he ran out of his blood pressure medications and went to his PCP where he was noted to have low blood pressure with systolic in 50 subsequently sent him to the hospital for further evaluation. Patient denies any lightheadedness dizziness. Mentions that he has been feeling tired. Patient complains of intermittent episodes of abdominal pain located in epigastric area; also complains of left-sided pain in the abdomen. Denies any associated nausea vomiting. Mentioned he tolerated food okay. Denies any chest pain palpitations. Denies any numbness tingling or focal weakness. Review of all other systems is negative except mentioned above ER course: Per ER team patient's exam was nonfocal; patient is on presentation systolic blood pressure was in 80s; given IV fluids with improvement in blood pressure. Patient remained asymptomatic. But on the labs noted to have lactic acidosis and the patient was given IV fluids with no significant improvement in the lactic acid levels. Hence decided to admit to the hospital for further management. [facility] Medical History (Updated 06/03/21 @ 21:38 by Rosales Priest MD) HTN (hypertension) Pertinent family history: Reviewed Social History Household Members: None Housing: Apartment Do you presently have visiting nurse or other home services: No Alcohol intake: current Alcohol intake frequency: 0-2 drinks per day Patient Tobacco Use Status: Never used Tobacco Use of substances other than those prescribed or required for medical reasons: No Have you been hit, kicked, punched, or otherwise hurt by someone within the past year? If so, by whom?: No Do you feel safe in your current relationship?: No Is there a partner from a previous relationship who is making you feel unsafe now?: No Are you made to feel afraid or neglected: No Advance Directives: No Advance Directives Information Provided: No Do you have thoughts of harming others: Vague Do you have a plan to hurt others: No Plan Recently lost weight without trying: No How much weight loss: Not applicable Eating poorly because of decreased appetite: Yes Nutrition screen score: 1 Nutrition Risks: No Nutritional Risk Poor oral hygiene: No Meds Allergies Allergy/AdvReac Type Severity Reaction Status Date / Time meperidine [From DEMEROL] Allergy Unknown UNKNOWN Verified 06/02/21 06:22 Active Medications: Current Medications Acetaminophen (Acetaminophen 325 Mg Tablet) 650 mg PO Q6H PRN PRN Reason: Pain, Mild (Pain Scale 1-3) Enoxaparin Sodium (Enoxaparin Sodium 40 Mg/0.4 Ml Syringe) 40 mg SUBCUT Q24H HERACLIO Dextrose/Sodium Chloride (D51/2ns) 1,000 mls @ 50 mls/hr IVCONT .Q20H HERACLIO Melatonin (Melatonin 3 Mg Tablet) 6 mg PO BEDTIME PRN PRN Reason: Insomnia Senna (Sennosides 8.6 Mg Tablet) 17.2 mg PO BEDTIME PRN PRN Reason: Constipation Sodium Chloride (0.9 % Sodium Chloride Flush 3 Ml Syringe) 3 ml IVFLUSH QSHIFT HERACLIO Home Medications Medication Instructions Recorded Confirmed Last Taken Type amlodipine 10 mg-benazepril 20 mg 1 cap PO DAILY 01/06/21 06/04/21 Unknown History capsule acetaminophen 500 mg capsule 500 mg PO TID PRN 06/01/21 06/04/21 Unknown History aspirin 81 mg chewable tablet 81 mg PO DAILY 06/01/21 06/04/21 Unknown History cetirizine 10 mg tablet 40 mg PO DAILY 06/01/21 06/04/21 Unknown History Physical Exam Vital Signs and Narrative: Vital Signs: Last Vital Signs Temp 98 F 06/03/21 12:20 Pulse 98 06/03/21 20:44 Resp 18 06/03/21 20:44 BP 142/86 H 06/03/21 20:44 Pulse Ox 98 06/03/21 20:44 Body Mass Index 26.5 Gen: Appears be in no acute distress HEENT: NCAT, Moist mucosa. Pulmonary: Vesicular breath sounds, fair air entry CVS: Normal S1-S2 Abdomen: BS+, Soft, Nontender Extremities: Warm well perfused Neuro: Alert and awake. Grossly nonfocal Results Labs CBC and Chem 7: 06/03/21 12:42 06/03/21 12:42 Labs: Laboratory Results - last 24 hr 06/03/21 06/03/21 06/03/21 12:42 12:42 12:42 MCV 96.1 MCH 32.9 MCHC 34.2 RDW 12.6 Plt Count 192 MPV 9.1 L Immature Gran % (Auto) 0.2 Neut % (Auto) 56.5 Lymph % (Auto) 29.8 Bureau % (Auto) 11.7 H Eos % (Auto) 1.6 Baso % (Auto) 0.2 Lymph # (Auto) 1.9 Bureau # (Auto) 0.7 Eos # (Auto) 0.1 Baso # (Auto) 0.0 Abs Immat Gran (auto) 0.01 Absolute Neuts (auto) 3.6 Absolute Nucleated RBC 0.000 Nucleated RBC % (auto) 0.0 Anion Gap 16 Estim Creat Clear Calc 51.4 Estimated GFR 52 Random Glucose 104 Lactic Acid 2.5 H* Lactic Acid Fup @ 2Hr Lactic Acid Fup @ 4Hr Calcium 8.4 Total Bilirubin 0.6 Direct Bilirubin 0.3 AST 55 H ALT 40 Alkaline Phosphatase 100 Total Protein 6.5 Albumin 3.3 L Urine Color Urine Appearance Urine pH Ur Specific [place] Urine Protein Urine Glucose (UA) Urine Ketones Urine Blood Urine Nitrite Ur Leukocyte Esterase Urine RBC Urine WBC Ur Squamous Epith Cells Urine Bacteria 06/03/21 06/03/21 06/03/21 15:14 16:37 18:41 MCV MCH MCHC RDW Plt Count MPV Immature Gran % (Auto) Neut % (Auto) Lymph % (Auto) Bureau % (Auto) Eos % (Auto) Baso % (Auto) Lymph # (Auto) Bureau # (Auto) Eos # (Auto) Baso # (Auto) Abs Immat Gran (auto) Absolute Neuts (auto) Absolute Nucleated RBC Nucleated RBC % (auto) Anion Gap Estim Creat Clear Calc Estimated GFR Random Glucose Lactic Acid Lactic Acid Fup @ 2Hr 2.5 H* Lactic Acid Fup @ 4Hr 2.6 H* Calcium Total Bilirubin Direct Bilirubin AST ALT Alkaline Phosphatase Total Protein Albumin Urine Color YELLOW Urine Appearance CLEAR Urine pH 6.0 Ur Specific [place] <= 1.005 Urine Protein NEG Urine Glucose (UA) NEG Urine Ketones NEG Urine Blood NEG Urine Nitrite NEG Ur Leukocyte Esterase 2+ H Urine RBC 1-4 Urine WBC 10-14 H Ur Squamous Epith Cells NONE Urine Bacteria TRACE 06/03/21 21:13 MCV MCH MCHC RDW Plt Count MPV Immature Gran % (Auto) Neut % (Auto) Lymph % (Auto) Bureau % (Auto) Eos % (Auto) Baso % (Auto) Lymph # (Auto) Bureau # (Auto) Eos # (Auto) Baso # (Auto) Abs Immat Gran (auto) Absolute Neuts (auto) Absolute Nucleated RBC Nucleated RBC % (auto) Anion Gap Estim Creat Clear Calc Estimated GFR Random Glucose Lactic Acid 1.1 Lactic Acid Fup @ 2Hr Lactic Acid Fup @ 4Hr Calcium Total Bilirubin Direct Bilirubin AST ALT Alkaline Phosphatase Total Protein Albumin Urine Color Urine Appearance Urine pH Ur Specific [place] Urine Protein Urine Glucose (UA) Urine Ketones Urine Blood Urine Nitrite Ur Leukocyte Esterase Urine RBC Urine WBC Ur Squamous Epith Cells Urine Bacteria Imaging Radiologist's Impressions: Impressions Chest X-Ray 06/03/21 19:40 IMPRESSION: No acute pulmonary disease. No significant change from prior study. Assessment and Plan (1) Pancreatic mass: Status: Acute (2) Hypotension: Status: Acute (3) Lactic acidosis: Status: Acute 70-year-old male with a past medical history of hypertension, recent diagnosis of pancreatic mass presented to the hospital with a chief complaint of low blood pressure. Low blood pressure: Likely in the setting of dehydration. Given IV fluids. Blood pressure normalized. Patient currently asymptomatic. Question UTI. Patient had recent admission to the hospital few days ago urine cultures came back mixed organisms. Patient currently denies any urinary symptoms. Will hold of antibiotics. Follow fever curve. Repeat urinalysis slightly abnormal. Follow up cultures. Lactic acidosis: Likely from dehydration. Continue IV fluids and follow lactate levels. Abdominal pain: CT abdomen showed pancreatic mass as noted on the prior CT scan also noted mild inflammation concern for pancreatitis. Lipase pending. Pain control. Supportive care. ?Self-harm ideations: After patient came to the floor he expressed to RN ideas of intermittent episodes of self-harm but never acted on it. One on a observation for safety. Will consult Psychiatry for further recommendations. Patient had remote history of psychiatric admission. History of hypertension: Hold home antihypertensive medication. Recent diagnosis of pancreatic mass: Per last discharge summary patient was seen by Oncology and Gastroenterology-recommended outpatient follow with surgical oncology. DVT prophylaxis: Lovenox Code status: Full code Quality Stroke Does the patient have a stroke diagnosis?: No VTE Prior VTE?: No VTE Risk Level:: Medical - moderate - high VTE Device Contraindication: Treatment Not Indicated VTE Drug Contraindication: N/A - Med Ordered
--- NOTE | 2021-06-03 21:44 | HE.PHANOTE ---
CLOZARIL Patient takes 25 mg qam and 50 mg at bedtime. pt eligible to receive clozaril-verified with [facility]. Spoke with RN at [facility] and patient has been regularly receiving doses of clozaril.
[2021-06-04] VITALS (12 sets, daily range): BP systolic 142–173; BP diastolic 80–97; PULSE 79–95; RESP 12–20; TEMP 35.5–36.9; O2SAT 95–99
[2021-06-04] MEDS: Dextrose 5 % and 0.45 % NaCl 1,000 ML 50 ML IVCONT ×2 (00:10→22:26)
--- NOTE | 2021-06-04 02:34 | PC.NURSE ---
UNABLE TO HANG D51/2 NS WHICH IS NOT AVAILABLE IN ED.
--- NOTE | 2021-06-04 02:35 | PC.NURSE ---
REPORT CALLED TO SUE HITCHCOCK.
--- NOTE | 2021-06-04 02:45 | PC.NURSE ---
covid swab obtained to lab.
--- NOTE | 2021-06-04 02:52 | PC.NURSE ---
PT RATING LEFT SIDED PAIN 10/10. HOSPITALIST AWARE AND ORDERED CT PRIOR TO GO TO [facility]. PT BEING MEDICATED AT THIS TIME FOR PAIN.
[2021-06-04] MEDS: HYDROmorphone HCl 0.5 MG/0.5 ML SYRINGE IVPUSH ×2 (03:05→13:39)
[2021-06-04 03:13] LABS: COVID-19 Test Negative (Negative); IDNOW Serial# 9DD0AD1C
--- NOTE | 2021-06-04 03:17 | PC.NURSE ---
PT TO CT IN STRETCHER
--- NOTE | 2021-06-04 03:35 | PC.NURSE ---
PT RETURNS TO ROOM FROM CT IN NAD. PT AWAITING FOR TRANSPORT TO FLOOR. PT MEDICATED FOR PAIN.
[2021-06-04] MEDS: Melatonin 3 MG TABLET 6 MG PO (04:45)
--- NOTE | 2021-06-04 05:20 | PC.NURSE ---
Addendum entered by Cornelia Loving RN 06/04/21 05:36: one to one sitter in the room. Addendum entered by Cornelia Loving RN 06/04/21 05:31: MD to order psych consult. Nursing packing and wrapping supervisor notified as well of situation. Original Note: patient states he has transient intrusive suicidal thoughts. currently does not have any thoughts or plan to harm self. He stated that he had been previously admitted to psychiatric units for these thoughts, the last being five years ago. MD notified.
[2021-06-04 07:22] LABS: MANUAL DIFF FLAG NO
[2021-06-04 07:27] LABS: Basophils Percent Auto 0.1 % (0-2); Eosinophils Absolute Auto 0.1 X10*3/uL (0.0-0.4); Eosinophils Percent Auto 0.7 % (0-4); Hematocrit 36.4 % (42-52); Hemoglobin 12.6 g/dl (14.0-18.0); Imm Gran Abs Auto 0.01 X10*3/uL (0.00-0.03); Imm Gran Pct Auto 0.1 % (0.0-0.4); Lymphocytes Absolute Auto 0.9 X10*3/uL (1.2-4.9); Mean Corpuscular HGB Conc 34.6 g/dl (31.0-36.0); Mean Corpuscular Hemoglobin 33.2 pg (27.0-33.0); Mean Corpuscular Volume 95.8 fL (80-98); Mean Platelet Volume 9.6 fL (9.4-12.4); Monocytes Absolute Auto 0.6 X10*3/uL (0.1-1.2); Monocytes Percent Auto 9.3 % (2-11); Neutrophils Absolute Auto 5.2 X10*3/uL (2.0-8.3); Neutrophils Percent Auto 76.8 % (45-73); Platelet Count 179 X10*3/uL (160-400); Red Cell Distribution Width 12.7 % (11.0-16.0); White Blood Count 6.8 X10*3/uL (4.8-10.8)
[2021-06-04 07:41] LABS: Lactic Acid 1.3 mmol/L (0.5-2.0)
[2021-06-04 07:54] LABS: Lipase 236 U/L (8-78)
[2021-06-04 07:58] LABS: Anion Gap 11 (12-20); Blood Urea Nitrogen 12 mg/dL (9-16); Carbon Dioxide 22 mmol/L (22-29); Chloride 111 mmol/L (96-108); Creatinine Clr Calc Pharmacy 76.8; Estimated Glomerular Filt Rate > 60; Glucose Random 196 mg/dL (60-115); Potassium 3.8 mmol/L (3.3-5.1); Sodium 140 mmol/L (135-145)
[2021-06-04 08:07] LABS: Calcium 7.9 mg/dL (8.4-10.2)
[2021-06-04] MEDS: 0.9 % Sodium Chloride Flush 3 ML SYRINGE IVFLUSH ×2 (08:46→22:26)
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
--- NOTE | 2021-06-04 11:53 | PM.DS ---
DS: Providers Provider Date of Service: 06/05/21 Date of admission: 06/03/21 21:58 Primary care physician: Benjamin Meadows MD Consults: 06/04/21 05:26 Consult to Psychiatry Routine Consulting Provider: Psych Covering Reason for consultation: pt expressed to RN intermittent ideas of self harm; DS: Diagnosis Discharge Diagnosis (1) Pancreatic mass: Status: Acute (2) Hypotension: Status: Acute (3) Lactic acidosis: Status: Acute DS: Summary Hospital Course Hospital Course: Patient was admitted due to hypotensive episode and lactic acidosis. He received IV fluids and his hypotension has resolved. Patient reports that he was asymptomatic during that episode. He was instructed to discontinue his blood pressure medications. Patient was noted to have mild pyuria however there is no indication that he has a urinary tract infection as he is asymptomatic and urine cultures are negative. Therefore, no antibiotics have been prescribed. On previous admission there was some concern of melena, however, this does not appear to have recurred and his hemoglobin has remained stable. On admitting CT there was concern for pancreatitis with elevated lipase and inflammation around the recently discovered pancreatic tail mass. However, patient denies epigastric abdominal pain and is eating well without any pain. Patient had also been seen by Psychiatry for expressing intermittent ideas of self-harm. Recommendations were to follow up outpatient with behavioral health, they did not feel that patient was currently risk for self-harm. Time Spent with Patient Time attestation: Total time spent providing and/or coordinating discharge services: Discharge coordination time: Greater than 30 minutes Quality: Stroke Does the patient have a stroke diagnosis?: No Physical Exam Vital Signs: Vital Signs: Last Vital Signs Temp 97.6 F 06/04/21 10:58 Pulse 95 06/04/21 11:22 Resp 18 06/04/21 10:58 BP 159/84 H 06/04/21 11:22 Pulse Ox 96 06/04/21 10:58 Body Mass Index 26.5 General: AO X 3, no acute distress Resp: CTA bilateral, no accessory muscles used CVS: S1,S2,RRR GI: soft, non tender, non distended Neuro: motor grossly intact, alert Psych: appropriate affect, appropriate insight DS: Data Data Completed and Pending Labs on day of discharge: Laboratory Results - last 24 hr 06/03/21 06/03/21 06/03/21 12:42 12:42 12:42 WBC 6.3 RBC 4.32 L Hgb 14.2 Hct 41.5 L MCV 96.1 MCH 32.9 MCHC 34.2 RDW 12.6 Plt Count 192 MPV 9.1 L Immature Gran % (Auto) 0.2 Neut % (Auto) 56.5 Lymph % (Auto) 29.8 [place] % (Auto) 11.7 H Eos % (Auto) 1.6 Baso % (Auto) 0.2 Lymph # (Auto) 1.9 [place] # (Auto) 0.7 Eos # (Auto) 0.1 Baso # (Auto) 0.0 Abs Immat Gran (auto) 0.01 Absolute Neuts (auto) 3.6 Absolute Nucleated RBC 0.000 Nucleated RBC % (auto) 0.0 Sodium 140 Potassium 3.7 Chloride 104 Carbon Dioxide 24 Anion Gap 16 BUN 13 Creatinine 1.36 Estim Creat Clear Calc 51.4 Estimated GFR 52 Random Glucose 104 Lactic Acid 2.5 H* Lactic Acid Fup @ 2Hr Lactic Acid Fup @ 4Hr Calcium 8.4 Total Bilirubin 0.6 Direct Bilirubin 0.3 AST 55 H ALT 40 Alkaline Phosphatase 100 Total Protein 6.5 Albumin 3.3 L Lipase Urine Color Urine Appearance Urine pH Ur Specific [place] Urine Protein Urine Glucose (UA) Urine Ketones Urine Blood Urine Nitrite Ur Leukocyte Esterase Urine RBC Urine WBC Ur Squamous Epith Cells Urine Bacteria COVID-19 ([facility]) COVID-19 Clin Com 06/03/21 06/03/21 06/03/21 15:14 16:37 18:41 WBC RBC Hgb Hct MCV MCH MCHC RDW Plt Count MPV Immature Gran % (Auto) Neut % (Auto) Lymph % (Auto) [place] % (Auto) Eos % (Auto) Baso % (Auto) Lymph # (Auto) [place] # (Auto) Eos # (Auto) Baso # (Auto) Abs Immat Gran (auto) Absolute Neuts (auto) Absolute Nucleated RBC Nucleated RBC % (auto) Sodium Potassium Chloride Carbon Dioxide Anion Gap BUN Creatinine Estim Creat Clear Calc Estimated GFR Random Glucose Lactic Acid Lactic Acid Fup @ 2Hr 2.5 H* Lactic Acid Fup @ 4Hr 2.6 H* Calcium Total Bilirubin Direct Bilirubin AST ALT Alkaline Phosphatase Total Protein Albumin Lipase Urine Color YELLOW Urine Appearance CLEAR Urine pH 6.0 Ur Specific [place] <= 1.005 Urine Protein NEG Urine Glucose (UA) NEG Urine Ketones NEG Urine Blood NEG Urine Nitrite NEG Ur Leukocyte Esterase 2+ H Urine RBC 1-4 Urine WBC 10-14 H Ur Squamous Epith Cells NONE Urine Bacteria TRACE COVID-19 ([facility]) COVID-19 Clin Com 06/03/21 06/04/21 06/04/21 21:13 02:44 06:44 WBC 6.8 RBC 3.80 L Hgb 12.6 L Hct 36.4 L MCV 95.8 MCH 33.2 H MCHC 34.6 RDW 12.7 Plt Count 179 MPV 9.6 Immature Gran % (Auto) 0.1 Neut % (Auto) 76.8 H Lymph % (Auto) 13.0 L [place] % (Auto) 9.3 Eos % (Auto) 0.7 Baso % (Auto) 0.1 Lymph # (Auto) 0.9 L [place] # (Auto) 0.6 Eos # (Auto) 0.1 Baso # (Auto) 0.0 Abs Immat Gran (auto) 0.01 Absolute Neuts (auto) 5.2 Absolute Nucleated RBC 0.000 Nucleated RBC % (auto) 0.0 Sodium Potassium Chloride Carbon Dioxide Anion Gap BUN Creatinine Estim Creat Clear Calc Estimated GFR Random Glucose Lactic Acid 1.1 Lactic Acid Fup @ 2Hr Lactic Acid Fup @ 4Hr Calcium Total Bilirubin Direct Bilirubin AST ALT Alkaline Phosphatase Total Protein Albumin Lipase Urine Color Urine Appearance Urine pH Ur Specific [place] Urine Protein Urine Glucose (UA) Urine Ketones Urine Blood Urine Nitrite Ur Leukocyte Esterase Urine RBC Urine WBC Ur Squamous Epith Cells Urine Bacteria COVID-19 ([facility]) Negative COVID-19 Clin Com See Note 06/04/21 06/04/21 06/04/21 06:44 06:44 06:44 WBC RBC Hgb Hct MCV MCH MCHC RDW Plt Count MPV Immature Gran % (Auto) Neut % (Auto) Lymph % (Auto) [place] % (Auto) Eos % (Auto) Baso % (Auto) Lymph # (Auto) [place] # (Auto) Eos # (Auto) Baso # (Auto) Abs Immat Gran (auto) Absolute Neuts (auto) Absolute Nucleated RBC Nucleated RBC % (auto) Sodium 140 Potassium 3.8 Chloride 111 H Carbon Dioxide 22 Anion Gap 11 L BUN 12 Creatinine 0.91 Estim Creat Clear Calc 76.8 Estimated GFR > 60 Random Glucose 196 H D Lactic Acid 1.3 Lactic Acid Fup @ 2Hr Lactic Acid Fup @ 4Hr Calcium 7.9 L Total Bilirubin Direct Bilirubin AST ALT Alkaline Phosphatase Total Protein Albumin Lipase 236 H Urine Color Urine Appearance Urine pH Ur Specific [place] Urine Protein Urine Glucose (UA) Urine Ketones Urine Blood Urine Nitrite Ur Leukocyte Esterase Urine RBC Urine WBC Ur Squamous Epith Cells Urine Bacteria COVID-19 ([facility]) COVID-19 Clin Com Preliminary micro results at discharge 06/03/21 16:41 Urine Culture - Preliminary Urine clean catch - Urine lott top No growth to date. Discharge Plan Discharge Patient Disposition: Home, Self-Care Discharge Diagnosis: hypotension Referrals: Harlan Garner MD [Physician] - 06/14/21 3:00 pm (You have an appointment with surgical oncologist Dr. Garner on Monday, June 14 at 3:00 pm. ) Tucker Luu MD [Physician] - 1 Week (mass at pancreatic tail ) Benjamin Meadows MD [Primary Care Provider] - 1 Week Juan Antonio Garcia MD [Physician] - 2 days (pancreatic mass) Klever Robles [Physician] - 2 days (pancreatic mass, abdominal pain) Discharge Medications: Continued cetirizine 10 mg Tablet 40 mg PO DAILY RF: 0 aspirin 81 mg Tablet,Chewable 81 mg PO DAILY RF: 0 acetaminophen 500 mg Capsule 500 mg PO TID PRN (Reason: Pain, Mild) RF: 0 Discontinued amlodipine-benazepril 10-20 mg capsule 1 cap PO DAILY RF: 0 Discharge Orders: Discharge Order (Routine); Ordered 06/04/21 Ordered By: Conrado Romero Diet: advance to usual diet Activity on Discharge: As tolerated Stand Alone Forms: Patient Portal Discharge page Care Plan Goals: [facility] Concerns: Hypotension, pancreatic tail mass Plan of Treatment: Stop your blood pressure medications. Follow-up with Surgical Oncology. Follow-up with Psychiatry Assessment: See above Patient Instructions: Urinary Tract Infection in Men (ED) Discharge Date/Time: 06/05/21 11:24
--- NOTE | 2021-06-04 12:46 | MHC.CARE ---
CARE Team has provided Pt with a list of outpatient resources for prescribers, therapists, and IOP.? Pt provided with education regarding same.? Pt?s nurse advised.
--- NOTE | 2021-06-04 13:16 | MHC.CM.PN ---
Addendum entered by Sara Guerin 06/04/21 15:29: PT APPEALED DC. RECORDS SENT TO [facility] Addendum entered by Sara Guerin 06/04/21 14:10: PT REPORTS HE WOULD LIKE TO APPEAL HIS DC HOWEVER HE IS VERY VAGUE WHEN ASKED WHY. CM REMINDED HIM HE HAD THE IMM AND THE NUMBER IS ON THE PAPER. INSTRUCTIONS ON APPEALING A DC WERE GIVEN. Original Note: CM SPOKE TO PT WHO REPORTS HE LIVES ALONE PT LIVES ALONE AND HAS NO SERVICES AND NO DME PT CONFIRMS HIS PCP IS NANCY SAMPSON PT REPORTS HE HAS A HCP NAMING HIS SISTER IN LAW OSEGUERA, HIS AGENT IMM DELIVERED CURRENT DC PLAN IS HOME WITH FOLLOW UP APPTS CM SPOKE TO PTS BROTHER CORY WHO REPORTS THE PT TENDS TO ISOLATE AND SLEEP ALL DAY AND STAY UP ALL NIGHT AND TAKES BATHS IN ROUND UP BECAUSE HE IS SO WORRIED ABOUT HIS SKIN BEING ITCHY. CORY REPORTS THE PT IS CAPABLE TO ATTENDING HIS FOLLOW UP APPOINTMENTS AND HAS A CAR WITH [employer]
--- NOTE | 2021-06-04 16:42 | P.PNIM_ITS ---
Subjective Subjective Date of Service: 06/04/21 Interval History: cc: hypotension pruritis Cardiovascular Cardiovascular: Reports no additional cardiovascular complaints Gastrointestinal Gastrointestinal: Reports no additional gastrointestinal complaints Physical Exam Vital Signs: Vital Signs: Last Vital Signs Temp 98.5 F 06/04/21 15:54 Pulse 84 06/04/21 15:54 Resp 16 06/04/21 15:54 BP 150/92 H 06/04/21 15:54 Pulse Ox 95 06/04/21 15:54 Body Mass Index 26.5 General: AO X 3, no acute distress Resp:? CTA bilateral, no accessory muscles used CVS: S1,S2,RRR GI: soft, non tender, non distended Neuro:? motor grossly intact, alert Psych: appropriate affect, appropriate insight? Objective Data Active Medications Acetaminophen (Acetaminophen 325 Mg Tablet) 650 mg PO Q6H PRN PRN Reason: Pain, Mild (Pain Scale 1-3) Enoxaparin Sodium (Enoxaparin Sodium 40 Mg/0.4 Ml Syringe) 40 mg SUBCUT Q24H [facility] Last Admin: 06/04/21 02:24 Dose: Not Given Documented by: JOAN Non-Admin Reason: Patient Refused Hydromorphone HCl (Hydromorphone Hcl 0.5 Mg/0.5 Ml Syringe) 0.5 mg IVPUSH Q4H PRN; Protocol PRN Reason: Breakthrough Pain Last Admin: 06/04/21 13:39 Dose: 0.5 mg Documented by: DANITZA Dextrose/Sodium Chloride (D51/2ns) 1,000 mls @ 50 mls/hr IVCONT .Q20H [facility] Last Admin: 06/04/21 00:10 Dose: 50 mls/hr Documented by: JOAN Melatonin (Melatonin 3 Mg Tablet) 6 mg PO BEDTIME PRN PRN Reason: Insomnia Last Admin: 06/04/21 04:45 Dose: 6 mg Documented by: DOLORES Senna (Sennosides 8.6 Mg Tablet) 17.2 mg PO BEDTIME PRN PRN Reason: Constipation Sodium Chloride (0.9 % Sodium Chloride Flush 3 Ml Syringe) 3 ml IVFLUSH QSHIFT [facility] Last Admin: 06/04/21 08:46 Dose: 3 ml Documented by: RONALDO Labs CBC & Chem 7: 06/04/21 06:44 10/01/21 06:44 Labs: Laboratory Results - last 24 hr 06/03/21 06/03/21 06/03/21 12:42 16:37 18:41 MCV MCH MCHC RDW Plt Count MPV Immature Gran % (Auto) Neut % (Auto) Lymph % (Auto) [place] % (Auto) Eos % (Auto) Baso % (Auto) Lymph # (Auto) [place] # (Auto) Eos # (Auto) Baso # (Auto) Abs Immat Gran (auto) Absolute Neuts (auto) Absolute Nucleated RBC Nucleated RBC % (auto) Anion Gap Estim Creat Clear Calc Estimated GFR Random Glucose Lactic Acid Lactic Acid Fup @ 4Hr 2.6 H* Calcium Total Bilirubin 0.6 Direct Bilirubin 0.3 AST 55 H ALT 40 Alkaline Phosphatase 100 Total Protein 6.5 Albumin 3.3 L Lipase Urine Color YELLOW Urine Appearance CLEAR Urine pH 6.0 Ur Specific [place] <= 1.005 Urine Protein NEG Urine Glucose (UA) NEG Urine Ketones NEG Urine Blood NEG Urine Nitrite NEG Ur Leukocyte Esterase 2+ H Urine RBC 1-4 Urine WBC 10-14 H Ur Squamous Epith Cells NONE Urine Bacteria TRACE COVID-19 ([facility]) COVID-19 Clin Com 06/03/21 06/04/21 06/04/21 21:13 02:44 06:44 MCV 95.8 MCH 33.2 H MCHC 34.6 RDW 12.7 Plt Count 179 MPV 9.6 Immature Gran % (Auto) 0.1 Neut % (Auto) 76.8 H Lymph % (Auto) 13.0 L [place] % (Auto) 9.3 Eos % (Auto) 0.7 Baso % (Auto) 0.1 Lymph # (Auto) 0.9 L [place] # (Auto) 0.6 Eos # (Auto) 0.1 Baso # (Auto) 0.0 Abs Immat Gran (auto) 0.01 Absolute Neuts (auto) 5.2 Absolute Nucleated RBC 0.000 Nucleated RBC % (auto) 0.0 Anion Gap Estim Creat Clear Calc Estimated GFR Random Glucose Lactic Acid 1.1 Lactic Acid Fup @ 4Hr Calcium Total Bilirubin Direct Bilirubin AST ALT Alkaline Phosphatase Total Protein Albumin Lipase Urine Color Urine Appearance Urine pH Ur Specific [place] Urine Protein Urine Glucose (UA) Urine Ketones Urine Blood Urine Nitrite Ur Leukocyte Esterase Urine RBC Urine WBC Ur Squamous Epith Cells Urine Bacteria COVID-19 ([facility]) Negative COVID-19 Clin Com See Note 06/04/21 06/04/21 06/04/21 06:44 06:44 06:44 MCV MCH MCHC RDW Plt Count MPV Immature Gran % (Auto) Neut % (Auto) Lymph % (Auto) [place] % (Auto) Eos % (Auto) Baso % (Auto) Lymph # (Auto) [place] # (Auto) Eos # (Auto) Baso # (Auto) Abs Immat Gran (auto) Absolute Neuts (auto) Absolute Nucleated RBC Nucleated RBC % (auto) Anion Gap 11 L Estim Creat Clear Calc 76.8 Estimated GFR > 60 Random Glucose 196 H D Lactic Acid 1.3 Lactic Acid Fup @ 4Hr Calcium 7.9 L Total Bilirubin Direct Bilirubin AST ALT Alkaline Phosphatase Total Protein Albumin Lipase 236 H Urine Color Urine Appearance Urine pH Ur Specific [place] Urine Protein Urine Glucose (UA) Urine Ketones Urine Blood Urine Nitrite Ur Leukocyte Esterase Urine RBC Urine WBC Ur Squamous Epith Cells Urine Bacteria COVID-19 ([facility]) COVID-19 Clin Com Microbiology Microbiology Results: Microbiology 06/03/21 12:52 Blood Culture - Preliminary Blood - Venous No growth after 24 hours. 06/03/21 12:59 Blood Culture - Preliminary Blood - Venous No growth after 24 hours. 06/03/21 16:41 Urine Culture - Preliminary Urine clean catch - Urine lott top No growth to date. Assessment and Plan (1) Lactic acidosis: Status: Acute (2) Hypotension: Status: Acute (3) Severe recurrent major depressive disorder with psychosis: Status: Acute Assessment and Plan: 70-year-old male was sent in for hypotension at his PCPs office Hypotension Resolved with IV fluids Continue to hold antihypertensives Pyuria Patient denies dysuria, has no evidence of sepsis, urine cultures negative, no evidence of urinary tract infection no need for antibiotics Pancreatitis seen on CT scan Patient is tolerating solid diet Pancreatic tail mass Outpatient Surgical Oncology follow-up Pruritus This is a chronic somatic disorder for which he has been following with Psychiatry Patient appears medically stable for discharge however he would like to appeal. Quality Stroke Does the patient have a stroke diagnosis?: No VTE Prior VTE?: No VTE Risk Level:: Medical - moderate - high VTE Device Contraindication: Treatment Not Indicated VTE Drug Contraindication: N/A - Med Ordered
[2021-06-04] MEDS: Enoxaparin Sodium 40 MG/0.4 ML SYRINGE SUBCUT (22:27)
[2021-06-05 03:10] VITALS: BP 160/81; RESP 18; TEMP 36.7; O2SAT 98
[2021-06-05 07:48] VITALS: BP 164/80; PULSE 93; RESP 18; TEMP 36.8; O2SAT 97
--- NOTE | 2021-06-07 16:27 | MHC.HEMONC ---
pt called earlier and I returned call and left voicemail for him re: appt with Dr Garner at [facility] on Monday06/14/21 at 3 pm.
--- NOTE | 2021-08-11 10:57 | MHC.HEMONC ---
Per Paty at Dr Garner's office, pt is admitted to [facility] for UTI and ? subdural hematome and therefore surgery on pancreatic mass will be delayed.
== END 2021-06-05 11:24 | disposition home or self-care (01) | DRG 315 ==
LOC: HO.ED 17:30 → HO.EDOVER 21:59 → HO.IMC 06-04 00:32
PROVIDERS: Physician Assistant; Admitting Provider Hospitalist; Emergency Provider Emergency Medicine Emergency Medical Services; PCP Internal Medicine; Visit Provider Internal Medicine
DX: I95.9 Hypotension, unspecified (principal); E87.2 Acidosis; N39.0 Urinary tract infection, site not specified; F33.3 Major depressive disorder, recurrent, severe with psychotic symptoms; K86.9 Disease of pancreas, unspecified; F10.21 Alcohol dependence, in remission; E86.0 Dehydration; F22 Delusional disorders; Z20.822 Contact with and (suspected) exposure to COVID-19; Z88.5 Allergy status to narcotic agent; Z79.82 Long term (current) use of aspirin; Z79.899 Other long term (current) drug therapy
CPT/HCPCS: 36415; 71045; 74176; 80048; 80076; 81001; 83605; 83690; 85025; 87040; 87086; 87635; 90686; 99285; J0696; J1170; J1650

== ENCOUNTER 2023-04-11 16:48 | Inpatient (IN) | payer MEDICARE, SELFPAY ==
--- NOTE | ~2023-04-11 | CT_ITS ---
EXAMINATION: CT ABDOMEN AND PELVIS WITH CONTRAST CLINICAL INFORMATION: History of pancreatic mass. COMPARISON: None available. TECHNIQUE: Multidetector volumetric images were obtained from the superior aspect of the liver through the pubic symphysis following administration 85 mL of Omnipaque 350 intravenous contrast. Sagittal and coronal reformatted images were obtained on the technologist's workstation. Oral contrast: No This CT examination was performed using dose optimization techniques as appropriate, variously including the following: *Automated exposure control *Adjustment of mA and/or kV according to patient size (this includes techniques or standardized protocols for targeted exams where dose is matched to indication/reason for exam; i.e. extremities or head) *Use of iterative reconstruction technique DLP: 850 mGy-cm FINDINGS: LUNG BASES: The lung bases are clear. The heart size is normal. LIVER, GALLBLADDER, AND BILIARY TREE: The liver is normal in size, shape, and and diffusely hypoattenuated. No focal hepatic lesion or biliary ductal dilatation is present. There are multiple radiopaque gallstones without wall thickening. No pericholecystic fluid collection. PANCREAS: Previously visualized pancreatic tail mass has resolved most likely. From surgery. No focal mass or abnormality seen in the pancreas. SPLEEN: Unremarkable. ADRENAL GLANDS: Unremarkable. KIDNEYS AND URETERS: The kidneys are normal in size, shape, and attenuation. No hydronephrosis, hydroureter, or calculi seen. No perinephric stranding. BLADDER: Unremarkable. GASTROINTESTINAL TRACT: There is scattered stool, diverticuli and gas seen throughout the colon without distention. The small bowel loops are normal caliber. Appendix is not visualized. ABDOMINAL WALL: No significant hernia is appreciated. LYMPH NODES: Normal. VASCULAR: Unremarkable. PELVIC VISCERA: There is significant calcifications in the mildly enlarged prostate gland. OSSEOUS STRUCTURES: Mild ventral spondylosis seen in lower dorsal spine. No aggressive lytic or sclerotic process. CT/CT abdomen pelvis w IV con IMPRESSION: 1. Previously visualized pancreatic tail mass has resolved. No residual or recurrent mass or abnormality seen in the pancreas. 2. Diffuse hepatic steatosis without focal lesion. 3. Cholelithiasis without wall thickening. 4. Colonic diverticulosis without diverticulitis. Fleischner guidelines were followed.
--- NOTE | ~2023-04-11 | US_ITS ---
EXAMINATION: US ABDOMEN LIMITED CLINICAL INFORMATION: Elevated LFTs with question of gallbladder disease. COMPARISON: CT abdomen pelvis earlier today TECHNIQUE: Real-time imaging of the right upper quadrant abdominal viscera. FINDINGS: PANCREAS: The visualized portions of the pancreas are unremarkable but a large portion of the gland, including the head and tail, is obscured by bowel gas. LIVER: There is mild enlargement of the liver. The liver contour is normal. There is diffuse increased liver parenchymal echogenicity, consistent with hepatic steatosis. No focal hepatic lesion. There is no intrahepatic biliary duct dilatation seen. GALLBLADDER: The gallbladder is physiologically distended. Similar to the CT scan performed earlier today, multiple mobile gallstones are present. No evidence of gallbladder wall thickening or pericholecystic fluid. COMMON BILE DUCT: Normal in caliber measuring 0.6 cm in diameter. RIGHT KIDNEY: Normal. No hydronephrosis. No renal calculi or focal parenchymal lesions. The kidney measures 10.6 cm in maximum dimension. FREE FLUID: None. US/US abdomen limited IMPRESSION: 1. Cholelithiasis without evidence of cholecystitis. 2. Enlarged fatty liver.
--- NOTE | ~2023-04-11 | XR_ITS ---
EXAMINATION: XR CHEST CLINICAL INFORMATION: Shortness of breath COMPARISON: Chest radiograph 06/03/2021, CT angiogram chest 06/02/2021 TECHNIQUE: Frontal view of the chest was obtained. FINDINGS: Heart size normal. No evidence of CHF The aorta is more atelectatic an infolded and at the time of the prior. No infiltrates, effusions or lung masses are seen. XR/XR chest 1V IMPRESSION: No acute intrathoracic disease.
[2023-04-11 17:08] VITALS: BP 107/64; BP 111/69; PULSE 91; PULSE 93; RESP 16; TEMP 36.8; O2SAT 95; O2SAT 97; BMI 29.6
--- NOTE | 2023-04-11 17:16 | ECG_ITS ---
Test Reason : SOB Blood Pressure : / mmHG Vent. Rate : 100 BPM Atrial Rate : 100 BPM P-R Int : 158 ms QRS Dur : 076 ms QT Int : 410 ms P-R-T Axes : 027 -06 136 degrees QTc Int : 528 ms Normal sinus rhythm ST & T wave abnormality, consider anterolateral ischemia Prolonged QT Abnormal ECG When compared with ECG of 06-JAN-2021 15:50, Premature ventricular complexes are no longer Present QRS duration has decreased T wave inversion now evident in Anterior leads QT has lengthened Referred By: Generic ED Physician Electronically Signed By:Elliot Rice
--- NOTE | 2023-04-11 17:33 | PC.NURSE ---
pt a&ox3. respirations even and unlabored. pt reports shortness of breath. lung sounds clear bilaterally. pt reporting pain in his abdomen as well as diarrhea. lower leg edema noted, but according to pt this is baseline for years pt skin appears jaundice, sclera yellow. pt is normal sinus on tele.
--- NOTE | 2023-04-11 17:43 | ED_ITS ---
HPI - Weakness General Chief complaint: Weakness Stated complaint: WEAKNESS Time Seen by Provider: 04/11/23 17:34 Source: patient Mode of arrival: EMS Limitations: no limitations History of Present Illness HPI Narrative: Patient with history of major depression, hypertension, pancreatic mass, came from home for increased generalized weakness for last few days difficulty in ambulation and increasing shortness of breath for last 2 weeks also patient has chronic diarrhea about 3-4 bowel movements a day for last 1 month noticed ankle edema also today patient became very weak today while going to the [employer] multiple times hitting his chest to the ground with increased shortness of breath and chest tightness no head injury no loss of conscious no seizure patient just feels very weak no fever no chills no urinary symptoms no significant abdominal pain feels bloated with bilateral back pain patient with has history of alcohol use in the past been sober for years for last few weeks patient has been drinking almost every night. Related Data Home Medications Medication Instructions Recorded Confirmed acetaminophen 500 mg capsule 500 mg PO TID PRN Pain, Mild 06/01/21 06/04/21 aspirin 81 mg chewable tablet 81 mg PO DAILY 06/01/21 06/04/21 cetirizine 10 mg tablet 40 mg PO DAILY 06/01/21 06/04/21 Allergies Allergy/AdvReac Type Severity Reaction Status Date / Time meperidine [From DEMEROL] Allergy Unknown UNKNOWN Verified 04/11/23 17:08 Review of Systems Review of Systems: Yes all other systems are reviewed and are negative [facility] Past Medical History Medical History HTN (hypertension) Social History Social History Household Members: None Housing: Apartment Do you presently have visiting nurse or other home services: No Alcohol intake: current Alcohol intake frequency: 0-2 drinks per day Alcohol type: hard liquor Patient Tobacco Use Status: Never used Tobacco Smoked in Last 30 Days: No Use of substances other than those prescribed or required for medical reasons: No Advance Directives: No Advance Directives Information Provided: Yes service: No Current occupational status: disabled Physical Exam Vital Signs: Vital Signs: Last Vital Signs Temp 998.1 F H 04/11/23 21:34 Pulse 100 04/11/23 21:34 Resp 18 04/11/23 21:34 BP 127/91 H 04/11/23 21:34 Pulse Ox 97 04/11/23 21:34 O2 Del Method Room Air 04/11/23 21:34 BMI result Body Mass Index 29.6 Appearance: Alert. Oriented X3. No acute distress. Eyes: PERRLA, No Nystagmus ENT: Pharynx normal. Oral Mucosa moist Neck: Normal inspection. Neck supple. CVS: Normal heart rate and rhythm. Pulses normal. Respiratory: No respiratory distress. Equal air entry bilateral, no wheezing/rales/rhonchi Abdomen: Soft diffuse abdominal tenderness no rebound tenderness Bowel sounds are present, no mass palpable, no CVA tenderness Skin: Skin warm and dry. Normal skin color. Normal skin turgor. Extremities: + extremity edema. No calf tenderness Neuro: Oriented X 3. No motor deficit. No sensory deficit.No cerebellar signs , cranial nerves II-XII intact Medications Administered Discontinued Medications Generic Name Dose Route Start Last Admin Trade Name Freq PRN Reason Stop Dose Admin Furosemide 20 mg 04/12/23 00:35 04/12/23 00:47 Furosemide 20 Mg/2 Ml Vial IVPUSH 04/12/23 00:36 20 mg ONCE ONE Administration Protocol Sodium Chloride 1,000 mls @ 999 mls/hr 04/11/23 18:41 04/11/23 18:59 Ns IV 04/11/23 19:41 Not Given .Q1H1M ONE Iohexol 85 ml 04/11/23 19:07 04/11/23 19:08 Iohexol 350 Mg/Ml 100 Ml Infus..Btl IV 04/11/23 19:08 85 ml ONCE ONE Administration Melatonin 6 mg 04/11/23 23:04 04/11/23 23:52 Melatonin 3 Mg Tablet PO 04/11/23 23:05 6 mg ONCE ONE Administration Tramadol HCl 50 mg 04/11/23 23:04 04/11/23 23:52 Tramadol Hcl 50 Mg Tablet PO 04/11/23 23:05 50 mg ONCE ONE Administration Medical Decision Making Medical Decision Making [facility] Narrative: Patient with exertional shortness of breath with chest tightness with elevated liver enzymes secondary to alcohol use will admit patient to rule out ACS Differential Diagnosis Differential Diagnoses: The differential diagnosis associated with the presentation includes CHF/cardiac arrhythmias/ACS/alcohol use/pancreatitis/elevated liver enzyme Consult Healthcare Provider Management of the patient was discussed with: Hospitalist Lab Data MDM Lab Attestation statement: I reviewed the patient's lab results. 04/11/23 17:34 04/11/23 17:34 Labs: Lab Results 04/11/23 04/11/23 04/11/23 Range/Units 17:34 17:34 17:34 WBC 7.8 (4.8-10.8) X10*3/uL RBC 3.41 L (4.60-5.80) X10*6/uL Hgb 12.0 L (14.0-18.0) g/dl Hct 35.5 L (42.0-52.0) % MCV 104.1 H (80.0-98.0) fL MCH 35.2 H (27.0-33.0) pg MCHC 33.8 (31.0-36.0) g/dl RDW 13.1 (11.0-16.0) % Plt Count 85 L (160-400) X10*3/uL MPV 10.4 (9.4-12.4) fL Immature Gran % (Auto) 0.3 (0.0-0.4) % Neut % (Auto) 78.6 H (45-73) % Lymph % (Auto) 11.7 L (20-40) % [place] % (Auto) 9.0 (2-11) % Eos % (Auto) 0.0 (0-4) % Baso % (Auto) 0.4 (0-2) % Lymph # (Auto) 0.9 L (1.2-4.9) X10*3/uL [place] # (Auto) 0.7 (0.1-1.2) X10*3/uL Eos # (Auto) 0.0 (0.0-0.4) X10*3/uL Baso # (Auto) 0.0 (0.0-0.2) X10*3/uL Abs Immat Gran (auto) 0.02 (0.00-0.03) X10*3/uL Absolute Neuts (auto) 6.1 (2.0-8.3) x10*3/uL Absolute Nucleated RBC 0.000 (0.0-0.012) X10*3/uL Nucleated RBC % (auto) 0.0 (0.0-0.2) /100WBC Sodium 141 (135-145) mmol/L Potassium 3.6 (3.3-5.1) mmol/L Chloride 102 (96-108) mmol/L Carbon Dioxide 18 L (22-29) mmol/L Anion Gap 25 H (12-20) BUN 12 (9-16) mg/dL Creatinine 0.99 (0.5-1.4) mg/dL Estim Creat Clear Calc 76.3 Estimated GFR > 60 Random Glucose 136 H (60-115) mg/dL Calcium 8.1 L (8.4-10.2) mg/dL Total Bilirubin 4.8 H (0.0-1.0) mg/dL AST 189 H (5-37) U/L ALT 41 H (0-40) U/L Alkaline Phosphatase 156 H (39-117) U/L Troponin I High Sens 15.9 (<3.5-35.0) ng/L B-Natriuretic Peptide (<100) pg/mL Total Protein 6.1 L (6.5-8.0) g/dL Albumin 2.3 L (3.5-5.0) g/dL Lipase 12 (8-78) U/L 04/11/23 Range/Units 17:34 WBC (4.8-10.8) X10*3/uL RBC (4.60-5.80) X10*6/uL Hgb (14.0-18.0) g/dl Hct (42.0-52.0) % MCV (80.0-98.0) fL MCH (27.0-33.0) pg MCHC (31.0-36.0) g/dl RDW (11.0-16.0) % Plt Count (160-400) X10*3/uL MPV (9.4-12.4) fL Immature Gran % (Auto) (0.0-0.4) % Neut % (Auto) (45-73) % Lymph % (Auto) (20-40) % [place] % (Auto) (2-11) % Eos % (Auto) (0-4) % Baso % (Auto) (0-2) % Lymph # (Auto) (1.2-4.9) X10*3/uL [place] # (Auto) (0.1-1.2) X10*3/uL Eos # (Auto) (0.0-0.4) X10*3/uL Baso # (Auto) (0.0-0.2) X10*3/uL Abs Immat Gran (auto) (0.00-0.03) X10*3/uL Absolute Neuts (auto) (2.0-8.3) x10*3/uL Absolute Nucleated RBC (0.0-0.012) X10*3/uL Nucleated RBC % (auto) (0.0-0.2) /100WBC Sodium (135-145) mmol/L Potassium (3.3-5.1) mmol/L Chloride (96-108) mmol/L Carbon Dioxide (22-29) mmol/L Anion Gap (12-20) BUN (9-16) mg/dL Creatinine (0.5-1.4) mg/dL Estim Creat Clear Calc Estimated GFR Random Glucose (60-115) mg/dL Calcium (8.4-10.2) mg/dL Total Bilirubin (0.0-1.0) mg/dL AST (5-37) U/L ALT (0-40) U/L Alkaline Phosphatase (39-117) U/L Troponin I High Sens (<3.5-35.0) ng/L B-Natriuretic Peptide 524 H (<100) pg/mL Total Protein (6.5-8.0) g/dL Albumin (3.5-5.0) g/dL Lipase (8-78) U/L Independent Interpretation I performed an independent interpretation of an: EKG Interpretation: Normal sinus rhythm heart rate 100 beats per minute nonspecific ST T wave changes for progression of R-waves no acute ST-T changes no acute ischemia Radiology Impression Discussion of test interpretation with radiology: I have reviewed the radiologist's reading. Radiologist Impression: US/US abdomen limited IMPRESSION: 1.? Cholelithiasis without evidence of cholecystitis. 2.? Enlarged fatty liver Discharge Plan Discharge Clinical Impression: Acute exacerbation of CHF (congestive heart failure), Chest pain, Alcohol use disorder, [place], Elevated LFTs Patient Disposition: Admitted As Inpatient
[2023-04-11 17:48] LABS: MANUAL DIFF FLAG NO
[2023-04-11 17:51] LABS: Basophils Percent Auto 0.4 % (0-2); Hematocrit 35.5 % (42.0-52.0); Imm Gran Abs Auto 0.02 X10*3/uL (0.00-0.03); Imm Gran Pct Auto 0.3 % (0.0-0.4); Lymphocytes Absolute Auto 0.9 X10*3/uL (1.2-4.9); Lymphocytes Percent Auto 11.7 % (20-40); Mean Corpuscular HGB Conc 33.8 g/dl (31.0-36.0); Mean Corpuscular Hemoglobin 35.2 pg (27.0-33.0); Mean Corpuscular Volume 104.1 fL (80.0-98.0); Mean Platelet Volume 10.4 fL (9.4-12.4); Monocytes Absolute Auto 0.7 X10*3/uL (0.1-1.2); Neutrophils Absolute Auto 6.1 x10*3/uL (2.0-8.3); Neutrophils Percent Auto 78.6 % (45-73); Red Blood Count 3.41 X10*6/uL (4.60-5.80); Red Cell Distribution Width 13.1 % (11.0-16.0); White Blood Count 7.8 X10*3/uL (4.8-10.8)
[2023-04-11 17:52] LABS: Platelet Count 85 X10*3/uL (160-400)
[2023-04-11 18:12] LABS: B Type Natriuretic Peptide 524 pg/mL (<100)
[2023-04-11 18:13] LABS: Troponin-I High Sensitivity 15.9 ng/L (<3.5-35.0)
[2023-04-11 18:16] LABS: Alanine Aminotransferase 41 U/L (0-40); Albumin Level 2.3 g/dL (3.5-5.0); Alkaline Phosphatase 156 U/L (39-117); Anion Gap 25 (12-20); Aspartate Amino Transferase 189 U/L (5-37); Bilirubin Total 4.8 mg/dL (0.0-1.0); Blood Urea Nitrogen 12 mg/dL (9-16); Calcium 8.1 mg/dL (8.4-10.2); Carbon Dioxide 18 mmol/L (22-29); Chloride 102 mmol/L (96-108); Creatinine Clr Calc Pharmacy 76.3; Estimated Glomerular Filt Rate > 60; Glucose Random 136 mg/dL (60-115); Potassium 3.6 mmol/L (3.3-5.1); Sodium 141 mmol/L (135-145); Total Protein 6.1 g/dL (6.5-8.0)
[2023-04-11] MEDS: iohexoL 350 MG/ML 100 ML INFUS..BTL 85 ML IV (19:08)
[2023-04-11 19:19] LABS: Lipase 12 U/L (8-78)
--- NOTE | 2023-04-11 20:14 | PC.NURSE ---
Pt ambulated to the bathroom with one assist. Pt was unable to urinate but had noemí episode of diarrhea. Pt stated he was dizzy and weak but was still able to ambulate.
[2023-04-11 21:34] VITALS: BP 127/91; PULSE 100; RESP 18; TEMP 536.7; TEMP 998.1; O2SAT 97
[2023-04-11] MEDS: Melatonin 3 MG TABLET 6 MG PO (23:52)
[2023-04-11] MEDS: traMADoL HCL 50 MG TABLET PO (23:52)
--- NOTE | 2023-04-11 23:56 | PC.NURSE ---
Pt returned from scan and medicated per nov. Pt a&ox4, no signs of distress. Plan of care on going.
[2023-04-12] VITALS (10 sets, daily range): BP systolic 97–143; BP diastolic 63–89; PULSE 70–111; RESP 17–27; TEMP 36.3–36.9; O2SAT 94–100; BMI 28.6
[2023-04-12] MEDS: Furosemide 20 MG/2 ML VIAL IVPUSH (00:47)
--- NOTE | 2023-04-12 00:52 | PC.NURSE ---
Pt medicated per nov. Pt a&ox4, no signs of distress. Pt given urinal. Plan of care ongoing.
--- NOTE | 2023-04-12 01:40 | P.HPHOSP_ITS ---
History of Present Illness Date of Service: 04/12/23 Chief Complaint: sob this is a 72-year-old male with past medical history of hypertension, tells me that he has history of hemorrhagic stroke in bleed in the brain about a year and half ago, as well as alcohol abuse comes into the hospital with complaints of s hortness of breath. Patient reports that he was walking up hill to get to his house when all the sudden he became very short of breath, and fell forward. He reports that he tripped and fell and did not lose any consciousness. Denies having any cough, reports that his been feeling short of breath for the past several months worsened recently, he also has lower extremity swelling for the past several months that has worsened recently. He denies orthopnea, no PND, no cough, no fever chills. Patient reports having abdominal pain that is diffuse, radiating to the sides of his abdomen, radiating to the back, no nausea or vomiting, no diarrhea constipation. The pain is 10/10, chronic, intermittent, no relieving or exacerbating factors. Patient does report that he drinks 2 to 3 times a week, no history of withdrawals. Last drink was 2 nights ago. he also reports that he has been having difficulty walking as his feet hurt. This has been going on for several months. on arrival to the ED patient hemodynamically stable with no significant abnormality Labs are significant for WBC count of 7.8, hemoglobin of 12, hematocrit 35.5, AST of 189, ALT of 41, alk-phos of 156, troponin negative, BNP of 524, albumin of 2.3, normal B12 and folic acid, UA positive for nitrites, WBC, as well as leukocyte Estrace Abdomen pelvic CT shows previously visualized pancreatic tail mass has res olved, no residual or recurrent mass or abnormality seen in the pancreas, diffuse hepatic steatosis without focal lesion, cholelithiasis without wall thickening Abdominal ultrasound shows cholelithiasis without cholecystitis, enlarged fatty liver patient will be admitted for further management Review of Systems Review of Systems: Yes all other systems are reviewed and are negative [facility] Medical History (Updated 04/12/23 @ 06:56 by Radha Soto MD) Hemorrhagic stroke HTN (hypertension) Surgical History (Updated 04/12/23 @ 06:50 by Radha Soto MD) No pertinent past surgical history Social History Household Members: None Housing: Apartment Do you presently have visiting nurse or other home services: No Alcohol intake: current Alcohol intake frequency: 0-2 drinks per day Alcohol type: hard liquor Patient Tobacco Use Status: Never used Tobacco Smoked in Last 30 Days: No Use of substances other than those prescribed or required for medical reasons: No Advance Directives: No Advance Directives Information Provided: Yes service: No Current occupational status: disabled Meds Allergies Allergy/AdvReac Type Severity Reaction Status Date / Time meperidine [From DEMEROL] Allergy Unknown UNKNOWN Verified 04/11/23 17:08 Home Medications Medication Instructions Recorded Confirmed Last Taken Type acetaminophen 500 mg capsule 500 mg PO TID PRN Pain, Mild 06/01/21 06/04/21 Unknown History aspirin 81 mg chewable tablet 81 mg PO DAILY 06/01/21 06/04/21 Unknown History cetirizine 10 mg tablet 40 mg PO DAILY 06/01/21 06/04/21 Unknown History Physical Exam Vital Signs and Narrative: Vital Signs: Last Vital Signs Temp 998.1 F H 04/11/23 21:34 Pulse 100 04/11/23 21:34 Resp 18 04/11/23 21:34 BP 127/91 H 04/11/23 21:34 Pulse Ox 97 04/11/23 21:34 O2 Del Method Room Air 04/11/23 21:34 BMI result Body Mass Index 29.6 Const: General: cooperative and no acute distress Orientation/consciousness: patient oriented x3 Eyes: General: appearance normal, both eyes and all related structures Resp: Effort & Inspection: normal respiratory effort Auscultation: clear to auscultation bilaterally Cardio: Rate: regular rate Rhythm: regular rhythm GI: Other: large abdomen, diffusely tender,no rebound or guarding Palpation (GI): Soft to palpation Auscultation: normal bowel sounds Skin: General skin exam: no rashes or lesions noted Neuro: General: patient oriented x3 Cognition (Neuro): normal cognition Extrem: Other: 2+ lower extremity edema General: Yes normal to inspection Results Labs 04/11/23 17:34 04/11/23 17:34 Labs: Laboratory Results - last 24 hr 04/11/23 04/11/23 04/11/23 17:34 17:34 17:34 MCV 104.1 H MCH 35.2 H MCHC 33.8 RDW 13.1 Plt Count 85 L MPV 10.4 Immature Gran % (Auto) 0.3 Neut % (Auto) 78.6 H Lymph % (Auto) 11.7 L [place] % (Auto) 9.0 Eos % (Auto) 0.0 Baso % (Auto) 0.4 Lymph # (Auto) 0.9 L [place] # (Auto) 0.7 Eos # (Auto) 0.0 Baso # (Auto) 0.0 Abs Immat Gran (auto) 0.02 Absolute Neuts (auto) 6.1 Absolute Nucleated RBC 0.000 Nucleated RBC % (auto) 0.0 Anion Gap 25 H Estim Creat Clear Calc 76.3 Estimated GFR > 60 Random Glucose 136 H Calcium 8.1 L Total Bilirubin 4.8 H AST 189 H ALT 41 H Alkaline Phosphatase 156 H B-Natriuretic Peptide 524 H Total Protein 6.1 L Albumin 2.3 L Lipase 12 Imaging Radiologist's Impressions: Impressions Chest X-Ray 04/11/23 18:13 IMPRESSION: No acute intrathoracic disease. Abdomen/Pelvis CT 04/11/23 19:05 IMPRESSION: 1. Previously visualized pancreatic tail mass has resolved. No residual or recurrent mass or abnormality seen in the pancreas. 2. Diffuse hepatic steatosis without focal lesion. 3. Cholelithiasis without wall thickening. 4. Colonic diverticulosis without diverticulitis. Fleischner guidelines were followed. Abdomen Ultrasound 04/11/23 23:45 IMPRESSION: 1. Cholelithiasis without evidence of cholecystitis. 2. Enlarged fatty liver. Assessment and Plan (1) Acute exacerbation of CHF (congestive heart failure): Status: Acute (2) Alcohol use disorder: Status: Acute (3) Cholelithiasis: Status: Acute (4) Elevated LFTs: Status: Acute (5) Acute UTI: Status: Acute Plan 72-year-old male with history of hypertension comes into the hospital with complaints of shortness of breath, fall, as well as leg pain as well as abdominal pain # acute exacerbation of CHF - no history of CHF in the past - has dyspnea, elevated BNP, chest x-ray shows no evidence of volume overload but clinically has lower extremity edema - will start him on IV Lasix, strict I&O, daily weight - will obtain echocardiogram, - cardiology consulted - troponin slightly elevated but with no delta on repeat # acute UTI - positive nitrites, leukocyte Estrace, and WBC - no sepsis - will treat with IV antibiotics - follow cultures # abdominal pain - possibly secondary to fatty liver /liver disease, abdominal distension - abdominal pelvic CT as well as abdominal ultrasound revealed cholelithiasis without acute cholecystitis or any other significant abnormality in the abdomen - would recommend follow-up with outpatient GI # elevated LFTs - likely secondary to fatty liver/ liver disease in the setting of alcohol abuse - slightly higher than his baseline which is chronically elevated - follow LFTs - if continue to increase, consider GI consult # alcohol use disorder - used to be heavy drinker/ daily, but now drinks 2 to 3 times a week - last drink 2 days ago, no evidence of withdrawal at this time - will place on CIWA # hypertension - stable - does not appear to be on any home medications - monitor for now # Fall - likely mechanical - will consult PT DVT prophylaxis: early ambulation, SCDs, given history of hemorrhagic stroke Given patient's need for further management and need for IV Lasix patient will require minimum 2 nights inpatient hospital stay for further management and monitoring Time Spent With Patient Time: Total time managing care of this patient today ____ minutes. Quality Stroke Does the patient have a stroke diagnosis?: No VTE Prior VTE?: No VTE Risk Level:: Medical - moderate - high VTE Device Contraindication: N/A - Device Ordered VTE Drug Contraindication: Treatment Not Indicated
[2023-04-12] MEDS: Furosemide 40 MG/4 ML VIAL IVPUSH (02:05)
--- NOTE | 2023-04-12 02:10 | PC.NURSE ---
Med confirmed with provider. Pt medicated per nov. plan of care ongoing.
[2023-04-12 02:41] LABS: Troponin-I High Sensitivity 24.4 ng/L (<3.5-35.0)
[2023-04-12 03:14] LABS: Folate 10.6 ng/mL (> or = 4.0); Vitamin B12 1034 pg/mL (200-900)
[2023-04-12 03:30] LABS: Ferritin 3504 ng/mL (20-250)
--- NOTE | 2023-04-12 03:33 | PC.NURSE ---
Urine collected and sent. Pt assisted to bathroom and back into bed. Plan of care ongoing.
[2023-04-12 03:44] LABS: Appearance Urine Turbid; Color Urine Dark Yellow; Glucose Urine UA Negative (Negative); Leukocyte Esterase Urine Large (3+) (Negative); Nitrite Urine Positive (Negative); PH 5.5 (5.0-9.0); Specific Gravity - Urine >= 1.030 (1.005-1.025); UMIC TRIGGER UACC YES; Urine Blood Large (3+) (Negative); Urine Ketones Negative (Negative); Urine Protein 30 (1+) mg/dL (Neg-Trace)
[2023-04-12 03:58] LABS: Bacteria Urine 3+ (None Seen); Hyaline Casts Urine 0-2 /LPF (0-2); Squamous Epithelial Cell Urine 0-2 /HPF (0-2); UACC Culture Trigger YES; WBC Urine >50 /HPF (0-5)
[2023-04-12 06:18] LABS: MANUAL DIFF FLAG NO
[2023-04-12 06:27] LABS: Basophils Percent Auto 0.3 % (0-2); Hematocrit 33.5 % (42.0-52.0); Hemoglobin 11.5 g/dl (14.0-18.0); Imm Gran Abs Auto 0.03 X10*3/uL (0.00-0.03); Imm Gran Pct Auto 0.4 % (0.0-0.4); Lymphocytes Percent Auto 13.1 % (20-40); Mean Corpuscular HGB Conc 34.3 g/dl (31.0-36.0); Mean Corpuscular Hemoglobin 35.6 pg (27.0-33.0); Mean Corpuscular Volume 103.7 fL (80.0-98.0); Mean Platelet Volume 10.5 fL (9.4-12.4); Monocytes Absolute Auto 0.5 X10*3/uL (0.1-1.2); Monocytes Percent Auto 6.8 % (2-11); Neutrophils Absolute Auto 6.2 x10*3/uL (2.0-8.3); Neutrophils Percent Auto 79.4 % (45-73); Red Blood Count 3.23 X10*6/uL (4.60-5.80); White Blood Count 7.8 X10*3/uL (4.8-10.8)
[2023-04-12 06:28] LABS: Platelet Count 77 X10*3/uL (160-400)
[2023-04-12 06:43] LABS: Alanine Aminotransferase 64 U/L (0-40); Albumin Level 2.2 g/dL (3.5-5.0); Alkaline Phosphatase 140 U/L (39-117); Anion Gap 20 (12-20); Aspartate Amino Transferase 428 U/L (5-37); Bilirubin Direct 3.7 mg/dL (0.0-0.5); Bilirubin Total 4.9 mg/dL (0.0-1.0); Blood Urea Nitrogen 11 mg/dL (9-16); Calcium 8.2 mg/dL (8.4-10.2); Carbon Dioxide 23 mmol/L (22-29); Chloride 101 mmol/L (96-108); Creatinine Clr Calc Pharmacy 75.5; Estimated Glomerular Filt Rate > 60; Glucose Random 114 mg/dL (60-115); Sodium 140 mmol/L (135-145); Total Protein 5.7 g/dL (6.5-8.0)
--- NOTE | 2023-04-12 07:00 | CA_ITS ---
Transthoracic Echocardiogram Patient (Last, First, Middle): Gadiel Arevalo, Gender: Male Date of : 1950 Age: 72 Procedure Date: 04/12/2023 Procedure Type: Transthoracic Echocardiogram Location: ER Height: 177.8 cm Weight: 93.44 kg BSA: 2.11 m2 Heart Rate: 106 bpm BP: 138 / 91 mmHg Director Utilization Management: ANSHUL Referring MD: Radha Soto MD Symptoms: chf Study Quality: Adequate/Contrast ECG Rhythm: Arrhythmia Conclusions: - Normal left ventricular size and systolic function. There is moderately increased left ventricular wall thickness. The visually estimated ejection fraction is between 55-60%. - E/E prime ratio is between 8 and 15 consistent with indeterminate filling pressures. - Normal right ventricular cavity size and systolic function. - There is mild dilatation of the sinuses of Valsalva measuring 4.00 cm and mild dilatation of the ascending aorta measuring 4.00 cm. Findings Procedure Information Contrast agent, definity, is being given per protocol without apparent complications. Left Ventricle Normal left ventricular size and systolic function. There is moderately increased left ventricular wall thickness. The visually estimated ejection fraction is between 55-60%. Abnormal diastolic function is noted. Spectral Doppler is indicative of an impaired relaxation filling pattern. E/E prime ratio is between 8 and 15 consistent with indeterminate filling pressures. Right Ventricle Normal right ventricular cavity size and systolic function. Atria The left atrium is normal in size. Aortic Valve The aortic valve was not well visualized. There is mild calcification of the aortic valve. There is no aortic valve stenosis. There is trace (trivial) aortic valve regurgitation. Mitral Valve The mitral valve appears normal. There is no mitral valve regurgitation. There is no mitral valve stenosis. Pulmonic Valve The pulmonic valve is likely normal. Tricuspid Valve Likely normal tricuspid valve structure and function. Tricuspid regurgitation envelope is inadequate for calculation of right ventricular systolic pressure. Normal right atrial pressure. Great Vessels There is mild dilatation of the sinuses of Valsalva measuring 4.00 cm and mild dilatation of the ascending aorta measuring 4.00 cm. Venous The inferior vena cava is normal in size and collapses greater than 50% with inspiration. Pericardium/Pleural There is no evidence of pericardial effusion. Prior Study Comparison No prior study available for comparison. Measurements 2D Linear Measurements IVSd: 1.37 0.6-0.9/0.6-1.0 cm LVIDd: 4.47 3.9-5.3/4.2-5.9 cm LVIDd Index: 2.12 2.4-3.2/2.2-3.1 cm/m2 LVIDs: 3.26 2.0-3.6 cm LVPWd: 1.21 0.7-1.1 cm LA Diam: 3.30 2.7-3.8/3.0-4.0 cm LAIDs Index: 1.56 1.5-2.3 cm/m2 LV Mass: 271.53 67-162/88-224 g LV Mass Index: 128.69 43-95/49-115 g/m2 LVOT Diam: 2.00 3.0+(-)1.3 cm 2D Systolic Function EF 4C: 48.40 >55% EF 2C: 48.00 >55% EF BiP: 47.40 >55% Mitral Valve MV Pk E: 0.56 MV PK A: 1.08 MV Decel Time: 194.00 E/A: 0.50 E'Lateral: 7.29 E'Medial: 3.37 E/E' Med: 16.60 E/E' Lat: 7.70 PHT: 57.00 MVA PHT: 3.86 Decel Jenkins: 2.89 Aortic Valve AoV Pk Jad: 1.36 AoV Mn Jad: 0.97 AoV VTI: 0.22 AoV Pk Grad: 7.00 Aov Mn Grad: 4.00 IFRAH Cont.VTI: 2.28 LVOT LVOT Pk Jad: 0.88 LVOT Mn Jad: 0.64 LVOT VTI: 0.16 LVOT Pk Grad: 3.00 LVOT Mn Grad: 2.00 LVOT Diam: 2.00 LVOT Area: 3.14 Diastolic Function MV Pk E: 0.56 MV Pk A: 1.08 E/A: 0.50 E'Medial: 3.37 E/E' Med: 16.60 E' Laterial: 7.29 E/E' Lat: 7.70 Right Ventricle TAPSE (mm): 13.80 TVS' Jad: 17.10 Tricuspid Valve RA Press: 8.00 Great Vessels Aorta Sinus of Valsalva: 4.00 2.0-3.5 cm Ao Asc: 4.00 2.1-3.4 cm Pulmonary Valve PV Pk Jad: 0.94 Peak PV Grad: 4.00 Updated in Other Vendor System with Status of Final Elliot Rice MD electronically signed on 04/12/2023 1:36:05 PM with status of Final
--- NOTE | 2023-04-12 07:10 | PC.NURSE ---
phlebotomy called to draw cultures
--- NOTE | 2023-04-12 08:06 | PHA.MEDREC ---
Pharmacy Consult ? Medication Reconciliation Pharmacy has completed the medication reconciliation. Pt states he takes nothing at home including OTC medications
--- NOTE | 2023-04-12 09:40 | PC.NURSE ---
Addendum entered by Zina Allred 04/12/23 11:53: from earlier 929 failed swallow eval by RN- pt not clear cough. UPPER SHAPER coming to eval per order. holding meds. md grimes aware Original Note: UPPER SHAPER came to room to do swallow eval- RN in middle of cleaning pt for BM- UPPER SHAPER to come back to eval swallow again.
[2023-04-12 10:32] LABS: Lactic Acid 12.7 mmol/L (0.5-2.0)
[2023-04-12] MEDS: cefTRIAXone sodium 1 GM in 0.9 % Sodium Chloride 50 ML IV (10:34)
[2023-04-12] MEDS: 0.9 % Sodium Chloride Flush 3 ML SYRINGE IVFLUSH ×3 (10:34→21:23)
[2023-04-12] MEDS: Acetaminophen 325 MG TABLET 650 MG PO ×2 (10:34→17:00)
--- NOTE | 2023-04-12 10:45 | PC.NURSE ---
pt repositioned on multiple pillows to left side as pt have x2 skin integrity issues on buttocks/coccyx area- MD Grimes notified- cleansed and covered with dressing. elevated extremities off bed- right leg remains tender/swollen/red. Md grimes aware r heel wound draining brown and came to bedside to eval- wound MDs came to bedside to eval as well and observed heel before RN dressed and cleansed well. pt changed into new gown/new pad and BM x1 cleaned.
--- NOTE | 2023-04-12 11:30 | PC.NURSE ---
DATASTAGE ARCHITECT Hazel came to bedside and stated to RN will be discussing pt's status of her exam and to hold meds until she speaks w MD and will be placing pt as NPO in meantime.
--- NOTE | 2023-04-12 11:38 | PC.NURSE ---
per STORE DIRECTOR Hazel to MD Hicks and RN: Pt seen for bedside swallow evaluation this AM. Presenting w/ overt clinical s/s aspiration on nectar thick liquid, refused honey thick. Could recommend pudding thick liquids & solids at this time. However, d/t recurrent aspiration PNA hospitalizations this year, a MBSS would be my recommendation to best determine the safest least restrictive diet and to hopefully prevent future aspiration PNA & hospitalizations. Pt is agreeable to MBSS and appears appropriate to participate in study. MBSS can only be done M,W,F. d/t presentation of recurrent aspiration PNA, she may have pharyngeal residue and be at risk for aspirating residual OR having silent aspiration. RN messaged Dr. Hicks in this conversation stating i will defer to STORE DIRECTOR/ and await notification regarding appropriateness for PO meds and hold until instructions from .
[2023-04-12 11:51] LABS: Reflex Lactate? Lactic Acid Added
[2023-04-12 12:39] LABS: Lactic Acid 8.1 mmol/L (0.5-2.0)
--- NOTE | 2023-04-12 12:42 | PC.NURSE ---
md redding aware lactic repeat is 8.1. he is mildly tachy 100-110s w occasional pvc. bp is 109/74. getting a hospital bed for bed alarm while in ED
--- NOTE | 2023-04-12 12:42 | PC.NURSE ---
md abreu notified lactic 8.1 and hr 100-110s.
--- NOTE | 2023-04-12 12:49 | PC.NURSE ---
drinking po fluids well - passed swallow eval earlier
--- NOTE | 2023-04-12 13:14 | PM.EVENT ---
Event Note Date of Service: 04/12/23 Event Note: Elevated lactic acid not due to sepsis, rather from liver disease and is coming down, trend level Time Spent With Patient Time: Total time managing care of this patient today ____ minutes.
[2023-04-12 14:04] LABS: Reflex Lactate? Lactic Acid Added
--- NOTE | 2023-04-12 15:18 | PC.NURSE ---
report called to floor- notifying transport
--- NOTE | 2023-04-12 15:28 | PC.NURSE ---
transport prepping pt to go up. CIWA 0 continues. VSS. alrt. talking well. no distress. ate well. in hospital bed w alarm on
[2023-04-12 15:43] LABS: ~Lactic Acid-LAB USE ONLY 6.4 mmol/L (0.5-2.0)
[2023-04-12 16:47] LABS: Reflex Lactate? 2 Y
[2023-04-12 18:25] LABS: ~Lactic Acid-LAB USE ONLY 6.8 mmol/L (0.5-2.0)
--- NOTE | 2023-04-12 20:37 | PM.CNCAR ---
History of Present Illness History of Present Illness Date of Service: 04/12/23 Requesting physician: Alvaro Monge Chief complaint: Acute CHF Narrative: 72 male with alcoholism, fall and HTN presenting with SOB. He also is complaining of abdominal pain and has background of pancreatitis. He has LE edema and SOB. He is complaining of central abdominal pain. He has elevated lactate. He has been started on Lasix. [facility] Past Medical History Medical History Hemorrhagic stroke HTN (hypertension) Surgical History Surgical History No pertinent past surgical history Social History Social History Household Members: None Housing: Apartment Do you presently have visiting nurse or other home services: No Alcohol intake: current Alcohol intake frequency: 0-2 drinks per day Alcohol type: hard liquor Patient Tobacco Use Status: Former Tobacco user Second Hand Smoke Exposure: No Advance Directives Date on File: 04/12/23 service: No Current occupational status: disabled Meds Allergies Allergy/AdvReac Type Severity Reaction Status Date / Time meperidine [From DEMEROL] Allergy Unknown UNKNOWN Verified 04/11/23 17:08 Active Medications: Current Medications Acetaminophen (Acetaminophen 325 Mg Tablet) 650 mg PO Q6H PRN PRN Reason: Pain, Mild (Pain Scale 1-3) Last Admin: 04/12/23 17:00 Dose: 650 mg Docusate Sodium (Docusate Sodium 100 Mg Capsule) 100 mg PO DAILY PRN PRN Reason: Constipation Ceftriaxone Sodium 1 gm/ (Sodium Chloride) 50 mls @ 100 mls/hr IV Q24H [facility] Last Infusion: 04/12/23 12:34 Dose: Infused Ondansetron HCl (Ondansetron Hcl 4 Mg/2 Ml Vial) 4 mg IVPUSH Q8H PRN PRN Reason: Nausea and Vomiting Pharmacy Consult (Consult Rx Perform Med Rec) 1 each MISCELLANE ONCE PRN PRN Reason: Consult order Sodium Chloride (0.9 % Sodium Chloride Flush 3 Ml Syringe) 3 ml IVFLUSH QSHIFT [facility] Last Admin: 04/12/23 17:01 Dose: 3 ml Home Medications Medication Instructions Recorded Confirmed Last Taken Type No Known Home Meds 04/12/23 04/12/23 Unknown History Physical Exam Vital Signs: Vital Signs: Last Vital Signs Temp 97.4 F 04/12/23 18:29 Pulse 70 04/12/23 18:29 Resp 18 04/12/23 18:29 BP 97/63 04/12/23 18:29 Pulse Ox 94 04/12/23 18:29 O2 Del Method Room Air 04/12/23 18:29 BMI result Body Mass Index 28.6 GENERAL APPEARANCE: in no acute distress, pleasant. NECK: no carotid bruit, + jugular venous distention. SKIN: no suspicious lesions, warm and dry. HEART: no murmurs, regular rate and rhythm. LUNGS: clear to auscultation bilaterally. ABDOMEN: soft, nontender. EXTREMITIES: + edema. PERIPHERAL PULSES: equal. NEUROLOGIC: No gross deficits, AAO X 3 Objective Labs and Meds 04/12/23 05:50 04/12/23 05:50 Lab results: Laboratory Results - last 24 hr 04/12/23 04/12/23 04/12/23 01:52 01:52 01:52 WBC RBC Hgb Hct MCV MCH MCHC RDW Plt Count MPV Immature Gran % (Auto) Neut % (Auto) Lymph % (Auto) [place] % (Auto) Eos % (Auto) Baso % (Auto) Lymph # (Auto) [place] # (Auto) Eos # (Auto) Baso # (Auto) Abs Immat Gran (auto) Absolute Neuts (auto) Absolute Nucleated RBC Nucleated RBC % (auto) Sodium Potassium Chloride Carbon Dioxide Anion Gap BUN Creatinine Estim Creat Clear Calc Estimated GFR Random Glucose Lactic Acid Lactic Acid F/U @ 2Hr Lactic Acid F/U @ 4Hr Calcium Ferritin 3504 H Total Bilirubin Direct Bilirubin AST ALT Alkaline Phosphatase Troponin I High Sens 24.4 D Total Protein Albumin Vitamin B12 1034 H Folate 10.6 Urine Color Urine Appearance Urine pH Ur Specific [place] Urine Protein Urine Glucose (UA) Urine Ketones Urine Blood Urine Nitrite Ur Leukocyte Esterase Urine RBC Urine WBC Ur Squamous Epith Cells Urine Bacteria Hyaline Casts 04/12/23 04/12/23 04/12/23 03:26 05:50 05:50 WBC 7.8 RBC 3.23 L Hgb 11.5 L Hct 33.5 L MCV 103.7 H MCH 35.6 H MCHC 34.3 RDW 13.0 Plt Count 77 L MPV 10.5 Immature Gran % (Auto) 0.4 Neut % (Auto) 79.4 H Lymph % (Auto) 13.1 L [place] % (Auto) 6.8 Eos % (Auto) 0.0 Baso % (Auto) 0.3 Lymph # (Auto) 1.0 L [place] # (Auto) 0.5 Eos # (Auto) 0.0 Baso # (Auto) 0.0 Abs Immat Gran (auto) 0.03 Absolute Neuts (auto) 6.2 Absolute Nucleated RBC 0.000 Nucleated RBC % (auto) 0.0 Sodium 140 Potassium 4.0 Chloride 101 Carbon Dioxide 23 Anion Gap 20 BUN 11 Creatinine 1.00 Estim Creat Clear Calc 75.5 Estimated GFR > 60 Random Glucose 114 Lactic Acid Lactic Acid F/U @ 2Hr Lactic Acid F/U @ 4Hr Calcium 8.2 L Ferritin Total Bilirubin 4.9 H Direct Bilirubin 3.7 H AST 428 H ALT 64 H Alkaline Phosphatase 140 H Troponin I High Sens Total Protein 5.7 L Albumin 2.2 L Vitamin B12 Folate Urine Color Dark Yellow Urine Appearance Turbid Urine pH 5.5 Ur Specific [place] >= 1.030 H Urine Protein 30 (1+) H Urine Glucose (UA) Negative Urine Ketones Negative Urine Blood Large (3+) H Urine Nitrite Positive H Ur Leukocyte Esterase Large (3+) H Urine RBC 3-5 H Urine WBC >50 H Ur Squamous Epith Cells 0-2 Urine Bacteria 3+ Hyaline Casts 0-2 04/12/23 04/12/23 04/12/23 09:49 12:02 14:44 WBC RBC Hgb Hct MCV MCH MCHC RDW Plt Count MPV Immature Gran % (Auto) Neut % (Auto) Lymph % (Auto) [place] % (Auto) Eos % (Auto) Baso % (Auto) Lymph # (Auto) [place] # (Auto) Eos # (Auto) Baso # (Auto) Abs Immat Gran (auto) Absolute Neuts (auto) Absolute Nucleated RBC Nucleated RBC % (auto) Sodium Potassium Chloride Carbon Dioxide Anion Gap BUN Creatinine Estim Creat Clear Calc Estimated GFR Random Glucose Lactic Acid 12.7 H* 8.1 H* Lactic Acid F/U @ 2Hr 6.4 H* Lactic Acid F/U @ 4Hr Calcium Ferritin Total Bilirubin Direct Bilirubin AST ALT Alkaline Phosphatase Troponin I High Sens Total Protein Albumin Vitamin B12 Folate Urine Color Urine Appearance Urine pH Ur Specific [place] Urine Protein Urine Glucose (UA) Urine Ketones Urine Blood Urine Nitrite Ur Leukocyte Esterase Urine RBC Urine WBC Ur Squamous Epith Cells Urine Bacteria Hyaline Casts 04/12/23 17:59 WBC RBC Hgb Hct MCV MCH MCHC RDW Plt Count MPV Immature Gran % (Auto) Neut % (Auto) Lymph % (Auto) [place] % (Auto) Eos % (Auto) Baso % (Auto) Lymph # (Auto) [place] # (Auto) Eos # (Auto) Baso # (Auto) Abs Immat Gran (auto) Absolute Neuts (auto) Absolute Nucleated RBC Nucleated RBC % (auto) Sodium Potassium Chloride Carbon Dioxide Anion Gap BUN Creatinine Estim Creat Clear Calc Estimated GFR Random Glucose Lactic Acid Lactic Acid F/U @ 2Hr Lactic Acid F/U @ 4Hr 6.8 H* Calcium Ferritin Total Bilirubin Direct Bilirubin AST ALT Alkaline Phosphatase Troponin I High Sens Total Protein Albumin Vitamin B12 Folate Urine Color Urine Appearance Urine pH Ur Specific [place] Urine Protein Urine Glucose (UA) Urine Ketones Urine Blood Urine Nitrite Ur Leukocyte Esterase Urine RBC Urine WBC Ur Squamous Epith Cells Urine Bacteria Hyaline Casts Imaging Radiologist's impression: Impressions Abdomen Ultrasound 04/11/23 23:45 IMPRESSION: 1. Cholelithiasis without evidence of cholecystitis. 2. Enlarged fatty liver. Assessment and Plan (1) Acute exacerbation of CHF (congestive heart failure): Status: Acute Plan 72 male with acute CHF. He is on Lasix. Continue IV Lasix today. Will likely transition to PO Lasix tomorrow. He has significantly elevated lactate and will need further investigation for that. Thank you for allowing me to participate in the care of your patient. Please feel free to contact me if you have any questions. Time Spent With Patient Time: Total time managing care of this patient today ____ minutes. Procedures Date of Service Date of Service: 04/12/23
[2023-04-12] MEDS: traZODone HCL 50 MG TABLET PO (21:23)
[2023-04-13 02:48] VITALS: BP 126/82; PULSE 93; RESP 20; TEMP 35.9; O2SAT 96
[2023-04-13] MEDS: Acetaminophen 325 MG TABLET 650 MG PO ×2 (04:04→17:10)
[2023-04-13] MEDS: cefTRIAXone sodium 1 GM in 0.9 % Sodium Chloride 50 ML IV (06:37)
[2023-04-13 07:12] VITALS: BP 110/68; PULSE 89; RESP 16; TEMP 36.7; O2SAT 93
[2023-04-13] MEDS: vancomycin/NS 2,000 MG/500 ML PLAST..BAG 250 MG IV (07:52)
[2023-04-13] MEDS: 0.9 % Sodium Chloride Flush 3 ML SYRINGE IVFLUSH ×3 (07:53→23:46)
--- NOTE | 2023-04-13 08:11 | PHA.PROG ---
Addendum entered by Belem Mcbride lupillo 04/13/23 10:31: Noticed the Scr was from yesterday, got scr for today which came back at 1.39. Dose will be 750 mg Q12H Original Note: Admission Date/Time: April 12, 2023 01:38 Indication: Bacteremia Weight in k.5 kg Adjusted body weight in K [place] body weight in K Obesity Dosing Indication % IBW: not obese Serum Creatinine - Last 168 Hours 04/11/23 04/12/23 17:34 05:50 Creatinine 0.99 1.00 Estimated CrCl and GFR - Last 168 Hours 04/11/23 04/12/23 17:34 05:50 Estim Creat Clear Calc 76.3 75.5 Estimated GFR > 60 > 60 Vancomycin Loading Dose: 2000 mg Current Vancomycin Dosing Regimen: 1000 mg Q12H Vancomycin Monitoring using AUC goal of 400 - 600 range with trough as surrogate marker: 579 Date and Time for next Vancomycin Level to be drawn: 04/14 @1800 Pharmacist Comments on Vancomycin Plan: Chose to use the higher end of the AUC goal as patient has bacteremia Vancomycin dosing will take advantage of [employer] as a clinical decision support tool that uses Bayesian modeling to calculate individual patient's pharmacokinetic parameters and forecast the patient's drug concentration time course with the target goal AUC 24 range of 400 - 600 mg/L/hr.
--- NOTE | 2023-04-13 08:22 | MHC.CM.PN ---
CM met with Patient at bedside and addressed IMM with him, providing Patient with the original and placing a copy on the chart. 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 PT is recommending home PT [place] [place] CM has initiated and will follow for dc planning. Patient explains that he is working on obtaining a new PCP;Dr. Benjamin Meadows has been retired.HCP is on file.
[2023-04-13 08:47] LABS: Lactic Acid 2.9 mmol/L (0.5-2.0)
--- NOTE | 2023-04-13 08:49 | HO.PM.IMPN ---
Subjective Subjective Date of Service: 04/13/23 Interval History: f/u on bacteremia, heart failure Physical Exam Vital Signs: Vital Signs: Last Vital Signs Temp 98.0 F 04/13/23 07:12 Pulse 89 04/13/23 07:12 Resp 16 04/13/23 07:12 BP 110/68 04/13/23 07:12 Pulse Ox 93 04/13/23 07:12 O2 Del Method Room Air 04/13/23 07:12 BMI result Body Mass Index 28.6 Const: Other: General: AO X 3, no acute distress Resp: CTA bilateral CVS: S1,S2,RRR GI: +BS, NT, no distention Skin: No rash Neuro: motor grossly intact Psych: appropriate affect Objective Data Active Medications Acetaminophen (Acetaminophen 325 Mg Tablet) 650 mg PO Q6H PRN PRN Reason: Pain, Mild (Pain Scale 1-3) Last Admin: 04/13/23 04:04 Dose: 650 mg Documented By: KELVIN Docusate Sodium (Docusate Sodium 100 Mg Capsule) 100 mg PO DAILY PRN PRN Reason: Constipation Ceftriaxone Sodium 1 gm/ (Sodium Chloride) 50 mls @ 100 mls/hr IV Q24H [facility]PLACED [facility] Last Infusion: 04/13/23 07:07 Dose: 0 mls/hr Documented By: RAFA Vancomycin HCl (Vancomycin/Ns) 2,000 mg in 500 mls @ 250 mls/hr IV ONCE ONE Stop: 04/13/23 09:20 Last Admin: 04/13/23 07:52 Dose: 250 mls/hr Documented By: RAFA Vancomycin HCl 1,000 mg/ (Sodium Chloride) 270 mls @ 270 mls/hr IV Q12H [facility] Ondansetron HCl (Ondansetron Hcl 4 Mg/2 Ml Vial) 4 mg IVPUSH Q8H PRN PRN Reason: Nausea and Vomiting Pharmacy Consult (Consult Rx Perform Med Rec) 1 each MISCELLANE ONCE PRN PRN Reason: Consult order Pharmacy Consult (Consult Rx Vancomycin Dosing) 1 each MISCELLANE DAILY PRN PRN Reason: Consult order Sodium Chloride (0.9 % Sodium Chloride Flush 3 Ml Syringe) [facility] Last Admin: 04/13/23 07:53 Dose: 3 ml Documented By: RAFA Labs 04/12/23 05:50 04/12/23 05:50 Labs: Laboratory Results - last 24 hr 04/12/23 04/12/23 04/12/23 09:49 12:02 14:44 Lactic Acid 12.7 H* 8.1 H* Lactic Acid F/U @ 2Hr 6.4 H* Lactic Acid F/U @ 4Hr 04/12/23 04/13/23 17:59 08:02 Lactic Acid 2.9 H* Lactic Acid F/U @ 2Hr Lactic Acid F/U @ 4Hr 6.8 H* Microbiology Microbiology Results: Microbiology 04/12/23 07:50 Blood Culture - Preliminary Blood - Venous Prelim: GPC Gram Stain only 04/12/23 08:09 Blood Culture - Preliminary Blood - Venous Prelim: GNR Gram Stain only Assessment and Plan (1) CHF (congestive heart failure): Status: Acute (2) Bacteremia: Status: Acute Plan 72-year-old male with history of hypertension comes into the hospital with complaints of shortness of breath, fall, as well as leg pain as well as abdominal pain and found to be in CHF, acute lactic acidosis, and now bacteremia # acute exacerbation of CHF-improved, echo EF 55 to 60%, transition to oral Lasix today, cardiology input noted #GNR 1/2, GPC 1/ bacteremia--echo no vegetation, source unclear, could also be contamination, for now Ceftriaxone 04/12 and Vanco 04/13, ID consult, follow up on sensitivity #Acute lactic acidosis Not due to sepsis as given the level pt would have clinically very toxic, likely from liver disease, and has come down steadily, no need for repeat at this point # abdominal pain- abdominal pelvic CT as well as abdominal ultrasound revealed cholelithiasis without acute cholecystitis or any other significant abnormality in the abdomen, pain resolved. # elevated LFTs - likely secondary to fatty liver/ liver disease in the setting of alcohol abuse - slightly higher than his baseline which is chronically elevated - follow LFTs - if continue to increase, consider GI consult # alcohol use disorder - used to be heavy drinker/ daily, but now drinks 2 to 3 times a week - last drink 2 days prior to admission, no evidence of withdrawal at this time, CIWA # hypertension - stable - does not appear to be on any home medications - monitor for now # Fall - likely mechanical - will consult PT DVT prophylaxis: early ambulation, SCDs, given history of hemorrhagic stroke Given patient's need for further management and need for IV Lasix patient will require minimum 2 nights inpatient hospital stay for further management and monitoring Time Spent With Patient Time: Total time managing care of this patient today ____ minutes. Quality Stroke Does the patient have a stroke diagnosis?: No VTE Prior VTE?: No VTE Risk Level:: Medical - moderate - high VTE Device Contraindication: N/A - Device Ordered VTE Drug Contraindication: Treatment Not Indicated
[2023-04-13 09:08] LABS: Cancel Lactic Acid Canceled
[2023-04-13 10:24] LABS: Reflex Lactate? Lactic Acid Added
[2023-04-13 10:28] LABS: Creatinine Clr Calc Pharmacy 53.5; Estimated Glomerular Filt Rate 50
[2023-04-13 11:28] VITALS: BP 118/74; PULSE 89; RESP 16; TEMP 36.6; O2SAT 95
[2023-04-13 13:11] LABS: Reflex Lactate? 2 Y
[2023-04-13 14:13] LABS: ~Lactic Acid-LAB USE ONLY 3.6 mmol/L (0.5-2.0)
--- NOTE | 2023-04-13 14:59 | PM.PNCARD ---
Subjective Subjective Date of Service: 04/13/23 Interval history: Patient was seen examined at bedside. Still complaining of abdominal pain but saying that abdominal pain has been present for months. Physical Exam Vital Signs: Last Vital Signs Temp 97.8 F 04/13/23 11:28 Pulse 89 04/13/23 11:28 Resp 16 04/13/23 11:28 BP 118/74 04/13/23 11:28 Pulse Ox 95 04/13/23 11:28 O2 Del Method Room Air 04/13/23 11:28 BMI result Body Mass Index 28.6 GENERAL APPEARANCE: in no acute distress, pleasant. NECK: no carotid bruit, no significant jugular venous distention. SKIN: no suspicious lesions, warm and dry. HEART: no murmurs, regular rate and rhythm. LUNGS: clear to auscultation bilaterally. ABDOMEN: soft, nontender. EXTREMITIES: No edema. PERIPHERAL PULSES: equal. NEUROLOGIC: No gross deficits, AAO X 3 Objective Labs and Meds 04/12/23 05:50 04/13/23 09:33 Lab results: Laboratory Results - last 24 hr 04/12/23 04/12/23 04/13/23 14:44 17:59 08:02 Creatinine Estim Creat Clear Calc Estimated GFR Lactic Acid 2.9 H* Lactic Acid F/U @ 2Hr 6.4 H* Lactic Acid F/U @ 4Hr 6.8 H* 04/13/23 04/13/23 04/13/23 09:33 11:04 13:32 Creatinine 1.39 Estim Creat Clear Calc 53.5 Estimated GFR 50 Lactic Acid Lactic Acid F/U @ 2Hr 5.0 H* Lactic Acid F/U @ 4Hr 3.6 H* Progress Note: A&P Assessment and plan (1) CHF (congestive heart failure): Status: Acute Plan 72-year-old male with mild congestive heart failure. On oral diuretics at this point. Blood pressure control is good. Has ongoing abdominal discomfort. He has history of alcoholism. Thank you for allowing me to participate in the care of your patient. Please feel free to contact me if you have any questions. Time Spent With Patient Time: Total time managing care of this patient today ____ minutes. Progress Note: Quality Stroke Does the patient have a stroke diagnosis?: No Procedures Date of Service Date of Service: 04/13/23
[2023-04-13 15:33] VITALS: BP 126/75; PULSE 90; RESP 18; TEMP 36.5; O2SAT 95
[2023-04-13 15:43] LABS: Cancel Lactic Acid Canceled
[2023-04-13 20:00] VITALS: BP 107/63; PULSE 84; RESP 18; TEMP 36.6; O2SAT 94
[2023-04-13] MEDS: vancomycin HCL 750 MG in 0.9 % Sodium Chloride 250 ML 265 MG IV (20:02)
[2023-04-13] MEDS: diphenhydrAMINE HCL 25 MG CAPSULE PO (21:29)
[2023-04-13] MEDS: traMADoL HCL 50 MG TABLET PO (21:29)
--- NOTE | 2023-04-13 22:27 | W.PM.IDCN ---
History of Present Illness Data of Consult Service Date: 04/13/23 Requesting physician: Estuardo Chi Primary Care Provider: Benjamin Meadows MD HPI Reason for consult: sepsis He presents with weakness and falls day of admission. He has gram positive cocci and gram negative rods blood 04/12. He has pyuria He has cholelithiasis with no active disease on CT scan and no abdominal pain now. Review of Systems Review of Systems: Yes all other systems are reviewed and are negative PMFSH Past Medical History Medical History Hemorrhagic stroke HTN (hypertension) Family History Family history: reviewed and not pertinent Surgical History Surgical History No pertinent past surgical history Social History Social History Household Members: None Housing: Apartment Do you presently have visiting nurse or other home services: No Alcohol intake: current Alcohol intake frequency: 0-2 drinks per day Alcohol type: hard liquor Patient Tobacco Use Status: Former Tobacco user Second Hand Smoke Exposure: No Advance Directives Date on File: 04/12/23 service: No Current occupational status: disabled Meds Allergies Allergy/AdvReac Type Severity Reaction Status Date / Time meperidine [From DEMEROL] Allergy Unknown UNKNOWN Verified 04/11/23 17:08 Active Medications: Current Medications Acetaminophen (Acetaminophen 325 Mg Tablet) 650 mg PO Q6H PRN PRN Reason: Pain, Mild (Pain Scale 1-3) Last Admin: 04/13/23 17:10 Dose: 650 mg Docusate Sodium (Docusate Sodium 100 Mg Capsule) 100 mg PO DAILY PRN PRN Reason: Constipation Ceftriaxone Sodium 1 gm/ (Sodium Chloride) 50 mls @ 100 mls/hr IV Q24H [facility] Last Infusion: 04/13/23 07:07 Dose: Infused Vancomycin HCl 750 mg/ Sodium (Chloride) 265 mls @ 265 mls/hr IV Q12H [facility] Last Infusion: 04/13/23 21:02 Dose: Infused Ondansetron HCl (Ondansetron Hcl 4 Mg/2 Ml Vial) 4 mg IVPUSH Q8H PRN PRN Reason: Nausea and Vomiting Pharmacy Consult (Consult Rx Perform Med Rec) 1 each MISCELLANE ONCE PRN PRN Reason: Consult order Pharmacy Consult (Consult Rx Vancomycin Dosing) 1 each MISCELLANE DAILY PRN PRN Reason: Consult order Sodium Chloride (0.9 % Sodium Chloride Flush 3 Ml Syringe) 3 ml IVFLUSH QSHIFT [facility] Last Admin: 04/13/23 16:58 Dose: 3 ml Home Medications Medication Instructions Recorded Confirmed Last Taken Type No Known Home Meds 04/12/23 04/12/23 Unknown History Physical Exam Vital Signs: Vital Signs: Last Vital Signs Temp 97.8 F 04/13/23 20:00 Pulse 84 04/13/23 20:00 Resp 18 04/13/23 20:00 BP 107/63 04/13/23 20:00 Pulse Ox 94 04/13/23 20:00 O2 Del Method Room Air 04/13/23 20:00 BMI result Body Mass Index 28.6 Const: General: cooperative HEENT: Head: Yes normal to inspection Face and sinus: Yes normal facial exam Mouth: Normal oral and palatal mucosa present Teeth and gingiva: dentition normal Eyes: General: appearance normal, both eyes and all related structures Pupils: Equal, round and reactive pupils present Resp: Effort & Inspection: normal respiratory effort Cardio: Rate: regular rate Rhythm: regular rhythm GI: Palpation (GI): Soft to palpation and nontender : General: Yes no CVA tenderness Back/Spine/Pelvis: Back: no CVA tenderness Skin: General skin exam: no rashes or lesions noted Neuro: General: moves all extremities Cranial nerves: Yes Equal, round and reactive pupils present Extrem: General: Yes normal to inspection Psych: Appearance: grossly normal Results Labs 04/12/23 05:50 04/13/23 09:33 Labs: BMP 04/13/23 09:33 Creatinine 1.39 Microbiology Microbiology Results: Microbiology 04/12/23 07:21 Urine clean catch - Urine [place] Urine Culture - Preliminary Culture in progress. 04/12/23 08:09 Blood - Venous Blood Culture - Preliminary Gram negative alex 04/12/23 07:50 Blood - Venous Blood Culture - Preliminary Prelim: GPC Gram Stain only Assessment and Plan (1) Bacteremia: Status: Acute He has possible urinary and less likely gallbladder source of bacteremia. He has no identification yet of bacteremia (2) Acute UTI: Status: Acute (3) Cholelithiasis: Status: Acute Plan Continue Ceftriaxone for now. Continue Vancomycin for now Await cultures urine and blood as well. Duration of antibiotics to be determined and will check for po alternatives. Time Spent With Patient Time: Total time managing care of this patient today ____ minutes.
[2023-04-13 23:30] VITALS: BP 119/72; PULSE 85; RESP 17; TEMP 36.4; O2SAT 96
[2023-04-14] VITALS (9 sets, daily range): BP systolic 92–123; BP diastolic 61–79; PULSE 70–131; RESP 16–22; TEMP 36.1–36.9; O2SAT 94–98; BMI 27.4
--- NOTE | 2023-04-14 | ECG_ITS ---
Test Reason : tachycardia Blood Pressure : / mmHG Vent. Rate : 082 BPM Atrial Rate : 082 BPM P-R Int : 136 ms QRS Dur : 116 ms QT Int : 418 ms P-R-T Axes : 000 -18 100 degrees QTc Int : 488 ms Sinus rhythm with Premature atrial complexes Low voltage QRS Cannot rule out Anterior infarct , age undetermined Abnormal ECG When compared with ECG of 14-APR-2023 09:22, Nonspecific T wave abnormality, improved in Inferior leads QT has lengthened Referred By: Estuardo Chi Electronically Signed By:Elliot Rice
--- NOTE | 2023-04-14 | ECG_ITS ---
Test Reason : tachycardia Blood Pressure : / mmHG Vent. Rate : 080 BPM Atrial Rate : 000 BPM P-R Int : 000 ms QRS Dur : 120 ms QT Int : 338 ms P-R-T Axes : 000 -14 139 degrees QTc Int : 389 ms NSR with PACs Non-specific intra-ventricular conduction delay Nonspecific ST and T wave abnormality Abnormal ECG When compared with ECG of 11-APR-2023 17:45, QRS duration has increased ST no longer depressed in Anterior leads Nonspecific T wave abnormality has replaced inverted T waves in Anterolateral leads QT has shortened Referred By: Alvaro Monge Electronically Signed By:Elliot Rice
--- NOTE | 2023-04-14 00:29 | PC.NURSE ---
Patient continues to refuse bed alarm, telesitter active, chair alarm on patient in bed. Educated patient on safety and fall risk precautions.
[2023-04-14] MEDS: cefTRIAXone sodium 1 GM in 0.9 % Sodium Chloride 50 ML IV (06:02)
[2023-04-14 06:38] LABS: Creatinine Clr Calc Pharmacy 69.3; Estimated Glomerular Filt Rate > 60
[2023-04-14] MEDS: 0.9 % Sodium Chloride Flush 3 ML SYRINGE IVFLUSH ×3 (07:16→20:10)
[2023-04-14] MEDS: vancomycin HCL 750 MG in 0.9 % Sodium Chloride 250 ML 265 MG IV ×2 (07:21→20:09)
[2023-04-14] MEDS: Acetaminophen 325 MG TABLET 650 MG PO ×2 (08:41→20:08)
--- NOTE | 2023-04-14 08:58 | P.PNIM_ITS ---
Subjective Subjective Date of Service: 04/14/23 Interval History: f/u on bacteremia, heart failure, no sob, no fever. Hand an episode of tachycardia this morning HR up to 170 briefly then came down Physical Exam Vital Signs: Vital Signs: Last Vital Signs Temp 97.5 F 04/14/23 07:30 Pulse 77 04/14/23 07:30 Resp 20 04/14/23 07:30 BP 104/70 04/14/23 07:30 Pulse Ox 95 04/14/23 07:30 O2 Del Method Room Air 04/14/23 07:30 BMI result Body Mass Index 27.4 Const: Other: General: AO X 3, no acute distress Resp: CTA bilateral CVS: S1,S2, iregular GI: +BS, NT, no distention Skin: No rash Neuro: motor grossly intact Psych: appropriate affect Objective Data Active Medications Acetaminophen (Acetaminophen 325 Mg Tablet) 650 mg PO Q6H PRN PRN Reason: Pain, Mild (Pain Scale 1-3) Last Admin: 04/14/23 08:41 Dose: 650 mg Documented By: RAFA Docusate Sodium (Docusate Sodium 100 Mg Capsule) 100 mg PO DAILY PRN PRN Reason: Constipation Ceftriaxone Sodium 1 gm/ (Sodium Chloride) 50 mls @ 100 mls/hr IV Q24H [facility] Last Infusion: 04/14/23 06:38 Dose: 0 mls/hr Documented By: LISSETT Vancomycin HCl 750 mg/ Sodium (Chloride) 265 mls @ 265 mls/hr IV Q12H [facility] Last Admin: 04/14/23 07:21 Dose: 265 mls/hr Documented By: RAFA Ondansetron HCl (Ondansetron Hcl 4 Mg/2 Ml Vial) 4 mg IVPUSH Q8H PRN PRN Reason: Nausea and Vomiting Pharmacy Consult (Consult Rx Perform Med Rec) 1 each MISCELLANE ONCE PRN PRN Reason: Consult order Pharmacy Consult (Consult Rx Vancomycin Dosing) 1 each MISCELLANE DAILY PRN PRN Reason: Consult order Sodium Chloride (0.9 % Sodium Chloride Flush 3 Ml Syringe) 3 ml IVFLUSH QSHIFT [facility] Last Admin: 04/14/23 07:16 Dose: 3 ml Documented By: RAFA Labs 04/12/23 05:50 04/14/23 06:08 Labs: Laboratory Results - last 24 hr 04/13/23 04/13/23 04/13/23 09:33 11:04 13:32 Estim Creat Clear Calc 53.5 Estimated GFR 50 Lactic Acid F/U @ 2Hr 5.0 H* Lactic Acid F/U @ 4Hr 3.6 H* 04/14/23 06:08 Estim Creat Clear Calc 69.3 Estimated GFR > 60 Lactic Acid F/U @ 2Hr Lactic Acid F/U @ 4Hr Microbiology Microbiology Results: Microbiology 04/12/23 07:21 Urine Culture - Preliminary Urine clean catch - Urine lott top Culture in progress. 04/12/23 08:09 Blood Culture - Preliminary Blood - Venous Gram negative alex 04/12/23 07:50 Blood Culture - Preliminary Blood - Venous Prelim: GPC Gram Stain only Assessment and Plan (1) CHF (congestive heart failure): Status: Acute (2) Bacteremia: Status: Acute Plan 72-year-old male with history of hypertension comes into the hospital with complaints of shortness of breath, fall, as well as leg pain as well as abdominal pain and found to be in CHF, acute lactic acidosis, and now bacteremia # acute exacerbation of CHF-improved, echo EF 55 to 60%, transition to oral Lasix today, cardiology input noted #GNR 1/2, GPC 1/2 bacteremia--echo no vegetation, source unclear, could also be contamination, for now Ceftriaxone 04/12 and Vanco 04/13, ID consult, follow up on sensitivity, ID input noted #Acute lactic acidosis Not due to sepsis as given the level pt would have clinically very toxic, likely from liver disease, and has come down steadily, no need for repeat at this point #Tachycardia --rythm as shown above, appearance of AFIB, get 12-lead ecg and confirm with cardiology, may need to be initiated on anticoagulation, and rate control meds # abdominal pain- abdominal pelvic CT as well as abdominal ultrasound revealed cholelithiasis without acute cholecystitis or any other significant abnormality in the abdomen, pain resolved. # elevated LFTs - likely secondary to fatty liver/ liver disease in the setting of alcohol abuse - slightly higher than his baseline which is chronically elevated - follow LFTs - if continue to increase, consider GI consult # alcohol use disorder - used to be heavy drinker/ daily, but now drinks 2 to 3 times a week - last drink 2 days prior to admission, no evidence of withdrawal at this time, CIWA # hypertension - stable - does not appear to be on any home medications - monitor for now # Fall - likely mechanical - will consult PT DVT prophylaxis: early ambulation, SCDs, given history of hemorrhagic stroke Given patient's need for further management and need for IV Lasix patient will require minimum 2 nights inpatient hospital stay for further management and monitoring Time Spent With Patient Time: Total time managing care of this patient today ____ minutes. Quality Stroke Does the patient have a stroke diagnosis?: No VTE Prior VTE?: No VTE Risk Level:: Medical - moderate - high VTE Device Contraindication: N/A - Device Ordered VTE Drug Contraindication: Treatment Not Indicated
--- NOTE | 2023-04-14 09:52 | PC.NURSE ---
pt had ST in 172 and back to 81 at 8:20. Pt s/o shoulder and neck pain. Tylenol given. MD notified. EKG ordered and taken. pt had 6 beats of Vtach at 9:45. on assessment pt is asymptomatic and was in sleep. MD notified.
[2023-04-14] MEDS: Docusate Sodium 100 MG CAPSULE PO (16:46)
--- NOTE | 2023-04-14 17:30 | MHC.EVENTN ---
pt has HR up to 150s-170s intermittently. on assessment, pt c/o dizziness, sob on exertion, and anxiety. vital signs as T 97.3 RR 22 HR 131 BP 118/61 O2 98%. MD notifed. Given 0.5mg Ativan IV push according to MD ordered. Metoprolol 12.5 mg TID ordered. EKG taken- 80s to 90s sinus rhythm with PVC. BNP has ordered. Continue to monitor
--- NOTE | 2023-04-14 17:51 | PM.EVENT ---
Event Note Date of Service: 04/14/23 Event Note: nurse called -patient hr is 150-160 Patient was seen and examined says shortness of breath is improving denies any chest pain EKG was done heart rate is in 80s as well as on telemetry also the heart rate is in 80s. Physical exam unchanged from today's hospitalist note. Patient says his shortness of breath somewhat better than before. plan will added small dose metoprolol moniter on tele if continue to have tachycardia -will consider calling acrdiology Time Spent With Patient Time: Total time managing care of this patient today ____ minutes.
[2023-04-14] MEDS: LORazepam 2 MG/ML VIAL 0.5 MG IVPUSH (17:52)
[2023-04-14 19:20] LABS: Vancomycin Random 18.1 mcg/mL (15-20)
--- NOTE | 2023-04-14 19:26 | HE.PHANOTE ---
Re: vanco dosing Renal function slightly improved (scr 0.98 today) and trough 18.1. Will continue monitoring renal function daily and obtain another trough 12 @1800 to ensure correct dosing. Continue current regimen.
[2023-04-14] MEDS: Metoprolol Tartrate 12.5 MG HALFTAB PO (20:08)
[2023-04-14 21:29] LABS: Amphetamine Screen Urine Not Detected (Not Detect); Barbiturates, Urine Not Detected (Not Detect); Benzodiazepines Screen Urine Not Detected (Not Detect); Cannabinoid Screen Urine Not Detected (Not Detect); Cocaine Screen Urine Not Detected (Not Detect); Fentanyl, urine Not Detected (Not Detect); Opiate Screen Urine Not Detected (Not Detect); Phencyclidine Screen Urine Not Detected (Not Detect)
[2023-04-14] MEDS: diphenhydrAMINE HCL 25 MG CAPSULE PO (23:54)
[2023-04-14] MEDS: traMADoL HCL 50 MG TABLET PO (23:54)
[2023-04-15 03:29] VITALS: BP 119/79; PULSE 78; RESP 17; TEMP 36.6; O2SAT 97
[2023-04-15 06:00] VITALS: BMI 27.7
[2023-04-15] MEDS: cefTRIAXone sodium 1 GM in 0.9 % Sodium Chloride 50 ML IV (06:35)
[2023-04-15 06:39] VITALS: BMI 27.7
[2023-04-15 07:07] VITALS: BP 127/73; PULSE 67; RESP 16; TEMP 36.6; O2SAT 94
--- NOTE | 2023-04-15 08:19 | ECG_ITS ---
Test Reason : Sinus tach Blood Pressure : / mmHG Vent. Rate : 082 BPM Atrial Rate : 082 BPM P-R Int : 136 ms QRS Dur : 118 ms QT Int : 424 ms P-R-T Axes : 003 -16 119 degrees QTc Int : 495 ms Sinus rhythm with Premature atrial complexes Cannot rule out Anterior infarct (cited on or before 14-APR-2023) Abnormal ECG When compared with ECG of 14-APR-2023 17:33, Premature ventricular complexes are no longer Present Referred By: Alvaro Monge Electronically Signed By:Elliot Rice
--- NOTE | 2023-04-15 08:22 | HO.PM.IMPN ---
Subjective Subjective Date of Service: 04/15/23 Interval History: f/u on bacteremia, heart failure, and now intermittent tachycrdia like these Physical Exam Vital Signs: Vital Signs: Last Vital Signs Temp 97.9 F 04/15/23 07:07 Pulse 67 04/15/23 07:07 Resp 16 04/15/23 07:07 BP 127/73 04/15/23 07:07 Pulse Ox 94 04/15/23 07:07 O2 Del Method Room Air 04/15/23 07:07 BMI result Body Mass Index 27.7 Const: Other: General: AO X 3, no acute distress Resp: CTA bilateral CVS: S1,S2, iregular, 2+ pedal edema GI: +BS, NT, no distention Skin: No rash Neuro: motor grossly intact Psych: appropriate affect Objective Data Active Medications Acetaminophen (Acetaminophen 325 Mg Tablet) 650 mg PO Q6H PRN PRN Reason: Pain, Mild (Pain Scale 1-3) Last Admin: 04/14/23 20:08 Dose: 650 mg Documented By: MARIETTA Docusate Sodium (Docusate Sodium 100 Mg Capsule) 100 mg PO DAILY PRN PRN Reason: Constipation Last Admin: 04/14/23 16:46 Dose: 100 mg Documented By: RAFA Ceftriaxone Sodium 1 gm/ (Sodium Chloride) 50 mls @ 100 mls/hr IV Q24H [facility] Last Admin: 04/15/23 06:35 Dose: 100 mls/hr Documented By: MARIETTA Vancomycin HCl 750 mg/ Sodium (Chloride) 265 mls @ 265 mls/hr IV Q12H [facility] Last Infusion: 04/14/23 22:57 Dose: 0 mls/hr Documented By: MARIETTA Metoprolol Tartrate (Metoprolol Tartrate 12.5 Mg Halftab) 12.5 mg PO TID [facility]; Protocol Last Admin: 04/14/23 20:08 Dose: 12.5 mg Documented By: MARIETTA Ondansetron HCl (Ondansetron Hcl 4 Mg/2 Ml Vial) 4 mg IVPUSH Q8H PRN PRN Reason: Nausea and Vomiting Pharmacy Consult (Consult Rx Perform Med Rec) 1 each MISCELLANE ONCE PRN PRN Reason: Consult order Pharmacy Consult (Consult Rx Vancomycin Dosing) 1 each MISCELLANE DAILY PRN PRN Reason: Consult order Sodium Chloride (0.9 % Sodium Chloride Flush 3 Ml Syringe) 3 ml IVFLUSH QSHIFT [facility] Last Admin: 04/14/23 20:10 Dose: 3 ml Documented By: MARIETTA Labs 04/12/23 05:50 04/14/23 06:08 Labs: Laboratory Results - last 24 hr 04/14/23 04/14/23 18:22 20:50 Random Vancomycin 18.1 Urine Opiates Screen Not Detected Urine Fentanyl Screen Not Detected Ur Barbiturates Screen Not Detected Ur Phencyclidine Scrn Not Detected Ur Amphetamines Screen Not Detected U Benzodiazepines Scrn Not Detected Urine Cocaine Screen Not Detected U Marijuana (THC) Screen Not Detected Microbiology Microbiology Results: Microbiology 04/12/23 08:09 Blood Culture - Final Blood - Venous Kluyvera intermedia 04/12/23 07:21 Urine Culture - Final Urine clean catch - Urine lott top Kluyvera intermedia 04/12/23 07:50 Blood Culture - Final Blood - Venous Coag negative Staphylococcus Assessment and Plan (1) CHF (congestive heart failure): Status: Acute (2) Bacteremia: Status: Acute Plan 72-year-old male with history of hypertension comes into the hospital with complaints of shortness of breath, fall, as well as leg pain as well as abdominal pain and found to be in CHF, acute lactic acidosis, and now bacteremia # acute exacerbation of CHF-improved, echo EF 55 to 60%, transition to oral Lasix today starting tomorrow, IV Lasix today # Kluyvera intermedia (GNR ) bacteremia and also in the Urine--sensitive to Ceftriaxone on Ceftriaxone since 04/12, continue and likely to PO Ceftin at discharge for total of 14 days per ID #Coag negative staph bacteremia--contamination, Stopped Vanco #Acute lactic acidosis Not due to sepsis as given the level pt would have clinically very toxic, likely from liver disease, and has come down steadily #Tachycardia --Suspect Paroxysmal AFIB, cardiology to review rythm, may need anticoagulation, started on Metoprolol # abdominal pain- abdominal pelvic CT as well as abdominal ultrasound revealed cholelithiasis without acute cholecystitis or any other significant abnormality in the abdomen, pain resolved. # elevated LFTs - likely secondary to fatty liver/ liver disease in the setting of alcohol abuse - slightly higher than his baseline which is chronically elevated - follow LFTs - if continue to increase, consider GI consult # alcohol use disorder, no sings of withdrawal - used to be heavy drinker/ daily, but now drinks 2 to 3 times a week - last drink 2 days prior to admission, no evidence of withdrawal at this time, CIWA # hypertension - stable - does not appear to be on any home medications - monitor for now # Fall - likely mechanical - will consult PT DVT prophylaxis: early ambulation, SCDs, given history of hemorrhagic stroke Given patient's need for further management and need for IV Lasix patient will require minimum 2 nights inpatient hospital stay for further management and monitoring Time Spent With Patient Time: Total time managing care of this patient today ____ minutes. Quality Stroke Does the patient have a stroke diagnosis?: No VTE Prior VTE?: No VTE Risk Level:: Medical - moderate - high VTE Device Contraindication: N/A - Device Ordered VTE Drug Contraindication: Treatment Not Indicated
[2023-04-15] MEDS: Metoprolol Tartrate 25 MG TABLET PO ×2 (08:41→20:15)
[2023-04-15] MEDS: Acetaminophen 325 MG TABLET 650 MG PO ×2 (08:42→20:15)
[2023-04-15] MEDS: 0.9 % Sodium Chloride Flush 3 ML SYRINGE IVFLUSH ×3 (08:42→23:16)
[2023-04-15] MEDS: Furosemide 40 MG/4 ML VIAL IVPUSH (08:42)
[2023-04-15 09:05] LABS: Creatinine Clr Calc Pharmacy 71.5; Estimated Glomerular Filt Rate > 60
--- NOTE | 2023-04-15 09:48 | PM.PNCARD ---
Subjective Subjective Date of Service: 04/15/23 Interval history: Seen examined at bedside. Complaining of abdominal and chest discomfort. Quite wake history. Had some tachycardia episodes yesterday which looked like SVT. Physical Exam Vital Signs: Last Vital Signs Temp 97.9 F 04/15/23 07:07 Pulse 67 04/15/23 07:07 Resp 16 04/15/23 07:07 BP 127/73 04/15/23 07:07 Pulse Ox 94 04/15/23 07:07 O2 Del Method Room Air 04/15/23 07:07 BMI result Body Mass Index 27.7 GENERAL APPEARANCE: in no acute distress, pleasant. NECK: no carotid bruit, no significant jugular venous distention. SKIN: no suspicious lesions, warm and dry. HEART: no murmurs, regular rate and rhythm. LUNGS: clear to auscultation bilaterally. ABDOMEN: soft, nontender. EXTREMITIES: No edema. PERIPHERAL PULSES: equal. NEUROLOGIC: No gross deficits, AAO X 3 Objective Labs and Meds 04/12/23 05:50 04/15/23 07:58 Lab results: Laboratory Results - last 24 hr 04/14/23 04/14/23 04/15/23 18:22 20:50 07:58 Creatinine 0.95 Estim Creat Clear Calc 71.5 Estimated GFR > 60 Random Vancomycin 18.1 Urine Opiates Screen Not Detected Urine Fentanyl Screen Not Detected Ur Barbiturates Screen Not Detected Ur Phencyclidine Scrn Not Detected Ur Amphetamines Screen Not Detected U Benzodiazepines Scrn Not Detected Urine Cocaine Screen Not Detected U Marijuana (THC) Screen Not Detected Progress Note: A&P Assessment and plan (1) Bacteremia: Status: Acute (2) CHF (congestive heart failure): Status: Acute Plan [age] year gentleman with alcoholism and mild congestive heart failure. Clinically appears to be euvolemic. Blood pressure control is good. Continue same medications currently. Runs of SVT and he was started on metoprolol and a appears to be asymptomatic today. Monitor potassium and magnesium closely. With alcohol use magnesium can be low which can lead to arrhythmia. Thank you for allowing me to participate in the care of your patient. Please feel free to contact me if you have any questions. Time Spent With Patient Time: Total time managing care of this patient today ____ minutes. Progress Note: Quality Stroke Does the patient have a stroke diagnosis?: No Procedures Date of Service Date of Service: 04/15/23
[2023-04-15 11:06] VITALS: BP 110/57; PULSE 91; RESP 16; TEMP 36.4; O2SAT 96
[2023-04-15 15:06] VITALS: BP 119/69; PULSE 82; RESP 16; TEMP 36.2; O2SAT 99
[2023-04-15 18:45] LABS: Vancomycin Random 13.7 mcg/mL (15-20)
[2023-04-15 19:11] VITALS: BP 116/78; PULSE 68; RESP 18; TEMP 37.1; O2SAT 98
[2023-04-15] MEDS: diphenhydrAMINE HCL 25 MG CAPSULE PO (20:40)
[2023-04-15 23:15] VITALS: BP 133/78; PULSE 76; RESP 18; TEMP 36.1; O2SAT 98
[2023-04-16 03:22] VITALS: BP 125/70; PULSE 62; RESP 18; TEMP 36.3; O2SAT 95
[2023-04-16 05:55] VITALS: BMI 27.6
[2023-04-16] MEDS: cefTRIAXone sodium 1 GM in 0.9 % Sodium Chloride 50 ML IV (06:28)
[2023-04-16] MEDS: Acetaminophen 325 MG TABLET 650 MG PO ×2 (06:39→17:09)
[2023-04-16 07:30] VITALS: BP 123/81; PULSE 89; RESP 16; TEMP 36.3; O2SAT 98
[2023-04-16] MEDS: 0.9 % Sodium Chloride Flush 3 ML SYRINGE IVFLUSH ×3 (08:15→20:00)
[2023-04-16] MEDS: Furosemide 40 MG TABLET PO (08:15)
[2023-04-16] MEDS: Metoprolol Tartrate 25 MG TABLET PO ×2 (08:15→20:00)
[2023-04-16 10:28] LABS: Anion Gap 15 (12-20); Blood Urea Nitrogen 10 mg/dL (9-16); Calcium 7.6 mg/dL (8.4-10.2); Carbon Dioxide 26 mmol/L (22-29); Chloride 98 mmol/L (96-108); Creatinine Clr Calc Pharmacy 73.8; Estimated Glomerular Filt Rate > 60; Glucose Random 185 mg/dL (60-115); Magnesium 1.2 mg/dL (1.6-2.6); Potassium 2.7 mmol/L (3.3-5.1); Sodium 136 mmol/L (135-145)
[2023-04-16 11:01] VITALS: BP 114/76; PULSE 85; RESP 16; TEMP 36.7; O2SAT 95
[2023-04-16] MEDS: Magnesium Sulfate/H2O 2 GM/50 ML PIGGYBACK IV (11:45)
[2023-04-16] MEDS: Potassium Chloride Packet 20 MEQ PACKET 40 MEQ PO (11:45)
--- NOTE | 2023-04-16 13:03 | P.PNIM_ITS ---
Subjective Subjective Date of Service: 04/16/23 Interval History: Follow-up the patient with acute CHF exacerbation, bacteremia, and runs of SVT in 150-160s Patient has been complaining abdominal discomfort Bladder scan shows 700 cc, nursing has been unable to successfully straight cath him Patient states he still has some shortness of breath with walking, though feels better at rest lying in bed Denies any chest pain/pressure, palpitations Denies cough Review of Systems Abdominal discomfort Shortness of breath with exertion Chronic hip and back pain Denies chest pain/pressure, palpitations Physical Exam Vital Signs: Vital Signs: Last Vital Signs Temp 98.1 F 04/16/23 11:01 Pulse 85 04/16/23 11:01 Resp 16 04/16/23 11:01 BP 114/76 04/16/23 11:01 Pulse Ox 95 04/16/23 11:01 O2 Del Method Room Air 04/16/23 11:01 BMI result Body Mass Index 27.6 General: AOx3, no acute distress Resp: CTA bilaterally CVS: S1, S2, RRR GI: +BS, NT, no distention Skin: No rash Neuro: Cranial nerves II-XII grossly intact bilaterally. Motor grossly intact bilaterally Extremities: 1+ bilateral pitting edema Psych: Appropriate affect Objective Data Active Medications Acetaminophen (Acetaminophen 325 Mg Tablet) 650 mg PO Q6H PRN PRN Reason: Pain, Mild (Pain Scale 1-3) Last Admin: 04/16/23 06:39 Dose: 650 mg Documented By: LEON Docusate Sodium (Docusate Sodium 100 Mg Capsule) 100 mg PO DAILY PRN PRN Reason: Constipation Last Admin: 04/14/23 16:46 Dose: 100 mg Documented By: RAFA Furosemide (Furosemide 40 Mg Tablet) 40 mg PO DAILY [facility]; Protocol Last Admin: 04/16/23 08:15 Dose: 40 mg Documented By: RICK Ceftriaxone Sodium 1 gm/ (Sodium Chloride) 50 mls @ 100 mls/hr IV Q24H [facility] Last Infusion: 04/16/23 07:00 Dose: 0 mls/hr Documented By: RICK Magnesium Sulfate (Magnesium Sulfate/H2o) 2 gm in 50 mls @ 25 mls/hr IV ONCE ONE Stop: 04/16/23 13:22 Last Admin: 04/16/23 11:45 Dose: 25 mls/hr Documented By: RICK Metoprolol Tartrate (Metoprolol Tartrate 25 Mg Tablet) 25 mg PO BID [facility]; Protocol Last Admin: 04/16/23 08:15 Dose: 25 mg Documented By: RICK Ondansetron HCl (Ondansetron Hcl 4 Mg/2 Ml Vial) 4 mg IVPUSH Q8H PRN PRN Reason: Nausea and Vomiting Pharmacy Consult (Consult Rx Perform Med Rec) 1 each MISCELLANE ONCE PRN PRN Reason: Consult order Pharmacy Consult (Consult Rx Vancomycin Dosing) 1 each MISCELLANE DAILY PRN PRN Reason: Consult order Sodium Chloride (0.9 % Sodium Chloride Flush 3 Ml Syringe) 3 ml IVFLUSH QSHIFT [facility] Last Admin: 04/16/23 08:15 Dose: 3 ml Documented By: RICK Labs 04/12/23 05:50 04/16/23 08:44 Labs: Laboratory Results - last 24 hr 04/15/23 04/16/23 18:07 08:44 Anion Gap 15 Estim Creat Clear Calc 73.8 Estimated GFR > 60 Random Glucose 185 H Calcium 7.6 L D Magnesium 1.2 L* Random Vancomycin 13.7 L Assessment and Plan (1) Bacteremia: Status: Acute (2) CHF (congestive heart failure): Status: Acute (3) Urinary retention: Status: Acute Plan 72-year-old male with history of hypertension comes into the hospital with complaints of shortness of breath, fall, as well as leg pain as well as abdominal pain and found to be in CHF, acute lactic acidosis, and now bacteremia Acute exacerbation of CHF SOB, edema improving Echo EF 55 to 60% Now on oral Lasix 40mg Bacteremia Kluyvera intermedia (GNR ) bacteremia and also in the Urine -- sensitive to Ceftriaxone, started 04/12, continue and likely change to PO Ceftin at discharge for total of 14 days per ID Coag negative staph bacteremia--contamination, Stopped Vanco Urinary retention Patient has been having trouble voiding since last night, only producing a slight dribble Bladder scan showed 700 cc in bladder Multiple straight catheterization attempts by nursing staff failed Urology consult Hypomagnesemia Patient's magnesium 1.2 on 04/16/2023 Given Mag 2 g IV, started magnesium 400 mg p.o. b.i.d. Follow Mag Hypokalemia Patient's potassium 2.7 on 04/16/2023 Patient given 60 mEq potassium p.o. Follow BMP Acute lactic acidosis Not due to sepsis as given the level pt would have clinically very toxic, likely from liver disease, and has come down steadily Tachycardia Pt experienced runs of like SVT in the 150s-160s Cardiology consult Started on metoprolol Monitor Mag and K closely Abdominal pain Abdominal pelvic CT as well as abdominal ultrasound revealed cholelithiasis without acute cholecystitis or any other significant abnormality in the abdomen, pain resolved. Elevated LFTs Likely secondary to fatty liver/ liver disease in the setting of alcohol abuse Slightly higher than his baseline which is chronically elevated Follow LFTs If continue to increase, consider GI consult Alcohol use disorder, no signs of withdrawal Used to be heavy drinker/ daily, but now drinks 2 to 3 times a week Last drink 2 days prior to admission, no evidence of withdrawal at this time, CIWA Hypertension Stable Does not appear to be on any home medications Monitor for now Fall Likely mechanical Will consult PT DVT prophylaxis: early ambulation, SCDs, given history of hemorrhagic stroke Patient requires additional hospitalization for monitoring of electrolytes and urinary retention, and PT evaluation for safe disposition home. Time Spent With Patient Time: Total time managing care of this patient today ____ minutes. Quality Stroke Does the patient have a stroke diagnosis?: No VTE Prior VTE?: No VTE Risk Level:: Medical - moderate - high VTE Device Contraindication: N/A - Device Ordered VTE Drug Contraindication: Treatment Not Indicated
[2023-04-16] MEDS: Potassium Chloride Packet 20 MEQ PACKET PO (13:39)
[2023-04-16 15:05] VITALS: BP 134/89; PULSE 73; RESP 18; TEMP 36.4; O2SAT 98
[2023-04-16] MEDS: Magnesium Oxide 400 MG TABLET PO (17:09)
[2023-04-16 17:19] LABS: Magnesium 1.6 mg/dL (1.6-2.6); Potassium 3.1 mmol/L (3.3-5.1)
[2023-04-16 19:14] VITALS: BP 131/78; PULSE 73; RESP 18; TEMP 36.2; O2SAT 98
--- NOTE | 2023-04-16 21:52 | PC.NURSE ---
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 Despite numerous attempts to replace and educate patient on importance pt continues to deny the monitor saying i'll put it on in the morning, i need to sleep . MD notified. Original Note: Assumed care for patient at approx 1900. Pt c/o increased abdominal discomfort. Voiding in small frequent amounts. Per day team unable to straight cath. MD on day team aware. Pt allowed this RN to attempt straight cath x1, completed with success. Large amount of clear yellow urine drained. Pt cooperative with care.
[2023-04-16 23:56] VITALS: BP 133/77; PULSE 63; RESP 20; TEMP 36.1; O2SAT 93
[2023-04-17] MEDS: Acetaminophen 325 MG TABLET 650 MG PO ×4 (02:53→21:23)
[2023-04-17 02:56] VITALS: BP 140/84; PULSE 67; RESP 20; TEMP 36.1; O2SAT 96
[2023-04-17 05:15] VITALS: BMI 26.9
[2023-04-17 07:13] VITALS: BP 140/83; PULSE 82; RESP 16; TEMP 36.3; O2SAT 96
[2023-04-17] MEDS: Furosemide 40 MG TABLET PO (07:51)
[2023-04-17] MEDS: Metoprolol Tartrate 25 MG TABLET PO ×2 (07:51→21:23)
[2023-04-17] MEDS: Magnesium Oxide 400 MG TABLET PO ×2 (07:51→15:20)
[2023-04-17] MEDS: 0.9 % Sodium Chloride Flush 3 ML SYRINGE IVFLUSH ×3 (07:52→23:47)
[2023-04-17] MEDS: cefTRIAXone sodium 1 GM in 0.9 % Sodium Chloride 50 ML IV ×2 (07:52→07:57)
[2023-04-17 09:29] LABS: Alanine Aminotransferase 44 U/L (0-40); Albumin Level 2.1 g/dL (3.5-5.0); Alkaline Phosphatase 137 U/L (39-117); Anion Gap 13 (12-20); Aspartate Amino Transferase 77 U/L (5-37); Blood Urea Nitrogen 8 mg/dL (9-16); Carbon Dioxide 30 mmol/L (22-29); Chloride 101 mmol/L (96-108); Creatinine Clr Calc Pharmacy 77.1; Estimated Glomerular Filt Rate > 60; Glucose Random 126 mg/dL (60-115); Magnesium 1.5 mg/dL (1.6-2.6); Potassium 3.5 mmol/L (3.3-5.1); Sodium 140 mmol/L (135-145)
[2023-04-17] MEDS: Magnesium Sulfate/H2O 2 GM/50 ML PIGGYBACK IV (10:50)
[2023-04-17 11:13] VITALS: BP 127/74; PULSE 67; RESP 16; TEMP 36.2; O2SAT 96
--- NOTE | 2023-04-17 12:10 | MHC.CM.PN ---
Addendum entered by Bruna Lucia 04/17/23 15:12: Pt originally stated his first choice for STR was [facility], but unfortunately they are not contracted with his insurance. Referrals expanded and a few facilities are willing to accept his insurance and are following. List of referrals given to pt, no preference noted at this time. Original Note: EMR reviewed and per MD rounds, pt is not medically cleared for D/C due to electrolyte monitoring, urinary retention/low urine output requiring further monitoring and management. CM will continue to follow.
--- NOTE | 2023-04-17 12:19 | HO.PM.IMPN ---
Subjective Subjective Date of Service: 04/17/23 Interval History: Follow-up the patient with acute CHF exacerbation, bacteremia, and runs of SVT in 150-160s Patient has been complaining abdominal discomfort Review of Systems Abdominal discomfort Shortness of breath with exertion Chronic hip and back pain Denies chest pain/pressure, palpitations Physical Exam Vital Signs: Vital Signs: Last Vital Signs Temp 97.2 F 04/17/23 11:13 Pulse 67 04/17/23 11:13 Resp 16 04/17/23 11:13 BP 127/74 04/17/23 11:13 Pulse Ox 96 04/17/23 11:13 O2 Del Method Room Air 04/17/23 11:13 BMI result Body Mass Index 26.9 Appearing in no acute distress lung sounds are clear to auscultation heart regular rate rhythm, clear S1, S2 positive bowel sounds, abdomen is soft, nontender neuro patient is alert x3, no focal deficits Objective Data Active Medications Acetaminophen (Acetaminophen 325 Mg Tablet) 650 mg PO Q6H PRN PRN Reason: Pain, Mild (Pain Scale 1-3) Last Admin: 04/17/23 07:58 Dose: 650 mg Documented By: MODESTO Docusate Sodium (Docusate Sodium 100 Mg Capsule) 100 mg PO DAILY PRN PRN Reason: Constipation Last Admin: 04/14/23 16:46 Dose: 100 mg Documented By: RAFA Furosemide (Furosemide 40 Mg Tablet) 40 mg PO DAILY [facility]; Protocol Last Admin: 04/17/23 07:51 Dose: 40 mg Documented By: MODESTO Ceftriaxone Sodium 1 gm/ (Sodium Chloride) 50 mls @ 100 mls/hr IV Q24H [facility] Last Infusion: 04/17/23 09:55 Dose: 0 mls/hr Documented By: MODESTO Magnesium Oxide (Magnesium Oxide 400 Mg Tablet) 400 mg PO BIDPC [facility] Last Admin: 04/17/23 07:51 Dose: 400 mg Documented By: MODESTO Metoprolol Tartrate (Metoprolol Tartrate 25 Mg Tablet) 25 mg PO BID [facility]; Protocol Last Admin: 04/17/23 07:51 Dose: 25 mg Documented By: MODESTO Ondansetron HCl (Ondansetron Hcl 4 Mg/2 Ml Vial) 4 mg IVPUSH Q8H PRN PRN Reason: Nausea and Vomiting Pharmacy Consult (Consult Rx Perform Med Rec) 1 each MISCELLANE ONCE PRN PRN Reason: Consult order Sodium Chloride (0.9 % Sodium Chloride Flush 3 Ml Syringe) 3 ml IVFLUSH QSHIFT [facility] Last Admin: 04/17/23 07:52 Dose: 3 ml Documented By: MODESTO Labs 04/12/23 05:50 04/17/23 06:13 Labs: Laboratory Results - last 24 hr 04/16/23 04/17/23 16:21 06:13 Anion Gap 13 Estim Creat Clear Calc 77.1 Estimated GFR > 60 Random Glucose 126 H Calcium 8.0 L Magnesium 1.6 1.5 L Total Bilirubin 4.0 H AST 77 H ALT 44 H Alkaline Phosphatase 137 H Total Protein 6.0 L Albumin 2.1 L Assessment and Plan (1) Bacteremia: Status: Acute (2) CHF (congestive heart failure): Status: Acute (3) Urinary retention: Status: Acute Plan 72-year-old male with history of hypertension comes into the hospital with complaints of shortness of breath, fall, as well as leg pain as well as abdominal pain and found to be in CHF, acute lactic acidosis, and now bacteremia Acute exacerbation of CHF. resolved now euvolemic Echo EF 55 to 60% Now on oral Lasix 40mg Bacteremia Kluyvera intermedia (GNR ) bacteremia and also in the Urine sensitive to Ceftriaxone, started 04/12, continue and likely change to PO Ceftin at discharge for total of 14 days per ID Coag negative staph bacteremia--contamination, Stopped Vanco Urinary retention Patient has been having trouble voiding since last night, only producing a slight dribble Bladder scan showed 700 cc in bladder Urology consult Tachycardia Pt experienced runs of like SVT in the 150s-160s Cardiology consult rec continue metoprolol Monitor Mag and K closely Hypomagnesemia Mag 2 g IV, started magnesium 400 mg p.o. b.i.d. Follow Mag Hypokalemia repleted and resolved Acute lactic acidosis Not due to sepsis Elevated LFTs secondary to fatty liver/ liver disease in the setting of alcohol abuse Alcohol use disorder, no signs of withdrawal drinks 2 to 3 times a week Last drink 2 days prior to admission, no evidence of withdrawal at this time CIWA scale Hypertension Stable not on any home medications Monitor for now Fall Likely mechanical PT rec home vs str, will need to re-evaluated DVT prophylaxis: early ambulation, SCDs, given history of hemorrhagic stroke Attending Dr. Alonso Full code Patient requires additional hospitalization for monitoring of electrolytes and urinary retention, and PT evaluation for safe disposition home. Time Spent With Patient Time: Total time managing care of this patient today ____ minutes. Quality Stroke Does the patient have a stroke diagnosis?: No VTE Prior VTE?: No VTE Risk Level:: Medical - moderate - high VTE Device Contraindication: N/A - Device Ordered VTE Drug Contraindication: Treatment Not Indicated
--- NOTE | 2023-04-17 13:39 | PM.UROCN ---
History of Present Illness Consult details Consult date: 04/17/23 Narrative: Gadiel is a 72 year old male history of major depression, hypertension, pancreatic mass, came from home for increased generalized weakness for last few days difficulty in ambulation and increasing shortness of breath for last 2 weeks also patient has chronic diarrhea about 3-4 bowel movements Patient presented due to weakness, and s/p fall, denied head injury, no loss of conscious. Admitted on 04/11/23 for weakness and found to have UTI. Currently he is on IV Rocephin. In discussion with the patient he states about a year ago he had a Gross catheter in place for similar symptoms of retention. He is not sure if he saw a urologist at that time. Called to evaluate due to urinary retention. Per nursing the patient was voiding more during the night Bladder scan done at bedside now for 163 mL the patient voided 100 mL At this time no need for Gross catheter. CTAP: KIDNEYS AND URETERS: The kidneys are normal in size, shape, and attenuation. No hydronephrosis, hydroureter, or calculi seen. No perinephric stranding. ? BLADDER: Unremarkable.?PELVIC VISCERA: There is significant calcifications in the mildly enlarged prostate gland.? Exam prostate moderately enlarged no suspicious nodules palpated Recommend Flomax 0 4 mg daily? Review of Systems Review of Systems: 10 point ROS negative other than stated in HPI [facility] Past Medical History Medical History Hemorrhagic stroke HTN (hypertension) Family History Family history: reviewed and not pertinent Surgical History Surgical History No pertinent past surgical history Social History Social History Household Members: None Housing: Apartment Do you presently have visiting nurse or other home services: No Alcohol intake: current Alcohol intake frequency: 0-2 drinks per day Alcohol type: hard liquor Patient Tobacco Use Status: Former Tobacco user Second Hand Smoke Exposure: No Advance Directives Date on File: 04/12/23 service: No Current occupational status: disabled Meds Allergies Allergy/AdvReac Type Severity Reaction Status Date / Time meperidine [From DEMEROL] Allergy Unknown UNKNOWN Verified 04/11/23 17:08 Active Medications: Current Medications Acetaminophen (Acetaminophen 325 Mg Tablet) 650 mg PO Q6H PRN PRN Reason: Pain, Mild (Pain Scale 1-3) Last Admin: 04/17/23 07:58 Dose: 650 mg Docusate Sodium (Docusate Sodium 100 Mg Capsule) 100 mg PO DAILY PRN PRN Reason: Constipation Last Admin: 04/14/23 16:46 Dose: 100 mg Furosemide (Furosemide 40 Mg Tablet) 40 mg PO DAILY [facility]; Protocol Last Admin: 04/17/23 07:51 Dose: 40 mg Ceftriaxone Sodium 1 gm/ (Sodium Chloride) 50 mls @ 100 mls/hr IV Q24H [facility] Last Infusion: 04/17/23 09:55 Dose: Infused Magnesium Oxide ([facility] 400 Mg [facility] Last Admin: 04/17/23 07:51 Dose: 400 mg Metoprolol Tartrate (Metoprolol Tartrate 25 Mg Tablet) 25 mg PO BID [facility]; Protocol Last Admin: 04/17/23 07:51 Dose: 25 mg Ondansetron HCl (Ondansetron Hcl 4 Mg/2 Ml Vial) 4 mg IVPUSH Q8H PRN PRN Reason: Nausea and Vomiting Pharmacy Consult (Consult Rx Perform Med Rec) 1 each MISCELLANE ONCE PRN PRN Reason: Consult order Sodium Chloride (0.9 % Sodium Chloride Flush 3 Ml Syringe) 3 ml IVFLUSH QSHIFT [facility] Last Admin: 04/17/23 07:52 Dose: 3 ml Home Medications Medication Instructions Recorded Confirmed Last Taken Type No Known Home Meds 04/12/23 04/12/23 Unknown History Physical Exam Vital Signs: Vital Signs: Last Vital Signs Temp 97.2 F 04/17/23 11:13 Pulse 67 04/17/23 11:13 Resp 16 04/17/23 11:13 BP 127/74 04/17/23 11:13 Pulse Ox 96 04/17/23 11:13 O2 Del Method Room Air 04/17/23 11:13 BMI result Body Mass Index 26.9 Const: General: healthy appearing, no acute distress and well developed Orientation/consciousness: patient oriented x3 HEENT: Head: Yes normocephalic and Yes atraumatic Eyes: Conjunctivae: conjunctivae normal Neck: Neck: Yes normal visual inspection Chest: Chest palpation & inspection: normal inspection of the chest Resp: Effort & Inspection: normal respiratory effort Cardio: Rate: regular rate GI: Inspection: Yes normal to inspection Palpation (GI): Soft to palpation : Other: Prostate Exam: mild to mod enlarged Solitary testicle. right testicle palp'd Penis: normal penis and uncircumcised (foreskin minimally retracted, glans WNL ) Scrotum: scrotum normal Skin: General skin exam: no rashes or lesions noted Neuro: General: patient oriented x3 Psych: Appearance: grossly normal Affect: normal affect Results Labs 04/12/23 05:50 04/17/23 06:13 Labs: Abnormal lab results 04/16/23 04/17/23 Range/Units 16:21 06:13 Potassium 3.1 L (3.3-5.1) mmol/L Carbon Dioxide 30 H (22-29) mmol/L BUN 8 L (9-16) mg/dL Random Glucose 126 H (60-115) mg/dL Calcium 8.0 L (8.4-10.2) mg/dL Magnesium 1.5 L (1.6-2.6) mg/dL Total Bilirubin 4.0 H (0.0-1.0) mg/dL AST 77 H (5-37) U/L ALT 44 H (0-40) U/L Alkaline Phosphatase 137 H (39-117) U/L Total Protein 6.0 L (6.5-8.0) g/dL Albumin 2.1 L (3.5-5.0) g/dL BMP 04/16/23 04/17/23 16:21 06:13 Sodium 140 Potassium 3.1 L 3.5 Chloride 101 Carbon Dioxide 30 H BUN 8 L Creatinine 0.88 Calcium 8.0 L Liver Function 04/17/23 Range/Units 06:13 Total Bilirubin 4.0 H (0.0-1.0) mg/dL AST 77 H (5-37) U/L ALT 44 H (0-40) U/L Alkaline Phosphatase 137 H (39-117) U/L Albumin 2.1 L (3.5-5.0) g/dL Urine 04/12/23 Range/Units 03:26 Urine Color Dark Yellow Urine Appearance Turbid Urine pH 5.5 (5.0-9.0) Ur Specific [place] >= 1.030 H (1.005-1.025) Urine Protein 30 (1+) H (Neg-Trace) mg/dL Urine Glucose (UA) Negative (Negative) mg/dL Collected: 04/12/23 Status: COMP Req#: [id number] Received: 04/12/23 Source: [facility] Sp Desc: Urine lott Subm Dr: Kade Bonds MD Ordered: Urine Culture Procedure Result Verified Site Urine Culture Final 04/14/23 Organism 1 Kluyvera intermedia Quant > 100,000 cfu/mL K[facility] interm [facility] RX --------- --- Ampicillin 16 I Ceftriaxone <=0.12 S Gentamicin <=1 S Levofloxacin <=0.12 S Nitrofurantoin 128 R Trimethoprim/Sulfamethoxazole <=20 S . Imaging Additional studies: Date of Service: 04/11/23 EXAMINATION: CT ABDOMEN AND PELVIS WITH CONTRAST? CLINICAL INFORMATION: History of pancreatic mass.? COMPARISON: None available. TECHNIQUE: Multidetector volumetric images were obtained from the superior aspect of the liver through the pubic symphysis following administration 85 mL of Omnipaque 350 intravenous contrast. Sagittal and coronal reformatted images were obtained on the technologist's workstation.? Oral contrast: No This CT examination was performed using dose optimization techniques as appropriate, variously including the following: *Automated exposure control *Adjustment of mA and/or kV according to patient size (this includes techniques or standardized protocols for targeted exams where dose is matched to indication/reason for exam; i.e. extremities or head) *Use of iterative reconstruction technique DLP: 850 mGy-cm FINDINGS: LUNG BASES: The lung bases are clear. The heart size is normal.? LIVER, GALLBLADDER, AND BILIARY TREE: The liver is normal in size, shape, and and diffusely hypoattenuated. No focal hepatic lesion or biliary ductal dilatation is present. There are multiple radiopaque gallstones without wall thickening. No pericholecystic fluid collection.? PANCREAS: Previously visualized pancreatic tail mass has resolved most likely. From surgery. No focal mass or abnormality seen in the pancreas.? SPLEEN: Unremarkable.? ADRENAL GLANDS: Unremarkable.? KIDNEYS AND URETERS: The kidneys are normal in size, shape, and attenuation. No hydronephrosis, hydroureter, or calculi seen. No perinephric stranding. ? BLADDER: Unremarkable.? GASTROINTESTINAL TRACT: There is scattered stool, diverticuli and gas seen throughout the colon without distention. The small bowel loops are normal caliber. Appendix is not visualized.? ABDOMINAL WALL: No significant hernia is appreciated.? LYMPH NODES: Normal. VASCULAR: Unremarkable. PELVIC VISCERA: There is significant calcifications in the mildly enlarged prostate gland.? OSSEOUS STRUCTURES: Mild ventral spondylosis seen in lower dorsal spine. No aggressive lytic or sclerotic process.? IMPRESSION: 1.? Previously visualized pancreatic tail mass has resolved. No residual or recurrent mass or abnormality seen in the pancreas. 2.? Diffuse hepatic steatosis without focal lesion. 3.? Cholelithiasis without wall thickening. 4.? Colonic diverticulosis without diverticulitis. Assessment and Plan (1) Acute UTI: Status: Acute (2) BPH loc w urin obs/LUTS: Status: Acute Plan Called to evaluate due to urinary retention. Per nursing the patient was voiding more during the night Bladder scan done at bedside for 163 mL the patient voided 100 mL At this time no need for Gross catheter. Exam prostate moderately enlarged no suspicious nodules palpated Recommend Flomax 0 4 mg daily Outpatient follow-up with Urology Time Spent With Patient Time: Total time managing care of this patient today ____ minutes. Procedures Date of Service Date of Service: 04/17/23
[2023-04-17 15:42] VITALS: BP 137/78; PULSE 74; RESP 18; TEMP 36.5; O2SAT 96
[2023-04-17 19:15] VITALS: BP 141/79; PULSE 73; RESP 17; TEMP 36.3; O2SAT 97
[2023-04-17] MEDS: Tamsulosin HCL 0.4 MG CAPSULE PO (21:23)
[2023-04-17] MEDS: Melatonin 3 MG TABLET 6 MG PO (21:28)
[2023-04-17 23:53] VITALS: BP 119/77; PULSE 67; RESP 20; TEMP 36.1; O2SAT 99
[2023-04-18] VITALS (7 sets, daily range): BP systolic 99–134; BP diastolic 59–79; PULSE 54–74; RESP 14–20; TEMP 36.1–36.9; O2SAT 96–98; BMI 28.1
[2023-04-18] MEDS: Acetaminophen 325 MG TABLET 650 MG PO ×3 (02:46→17:58)
[2023-04-18] MEDS: traMADoL HCL 50 MG TABLET PO (04:02)
[2023-04-18 06:17] LABS: Anion Gap 10 (12-20); Blood Urea Nitrogen 6 mg/dL (9-16); Calcium 7.5 mg/dL (8.4-10.2); Carbon Dioxide 30 mmol/L (22-29); Chloride 101 mmol/L (96-108); Estimated Glomerular Filt Rate > 60; Glucose Random 138 mg/dL (60-115); Magnesium 1.9 mg/dL (1.6-2.6); Sodium 138 mmol/L (135-145)
[2023-04-18] MEDS: Metoprolol Tartrate 25 MG TABLET PO ×2 (08:40→20:25)
[2023-04-18] MEDS: Magnesium Oxide 400 MG TABLET PO ×2 (08:40→17:58)
[2023-04-18] MEDS: Furosemide 40 MG TABLET PO (08:40)
[2023-04-18] MEDS: 0.9 % Sodium Chloride Flush 3 ML SYRINGE IVFLUSH ×3 (08:41→23:49)
[2023-04-18] MEDS: cefTRIAXone sodium 1 GM in 0.9 % Sodium Chloride 50 ML IV (08:55)
--- NOTE | 2023-04-18 10:55 | MHC.CM.PN ---
Patient had the opportunity to meet with [facility] Liaison, in person and he has accepted a bed offer from that SNF. CM has requested that [facility] L[facility]res initiate auth process from [facility]. 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
--- NOTE | 2023-04-18 14:24 | HO.PM.IMPN ---
Subjective Subjective Date of Service: 04/18/23 Interval History: Follow-up the patient with acute CHF exacerbation, bacteremia, and runs of SVT in 150-160s denied pain, nausea and vomiting no sob Physical Exam Vital Signs: Vital Signs: Last Vital Signs Temp 97.1 F 04/18/23 11:07 Pulse 69 04/18/23 11:07 Resp 18 04/18/23 11:07 BP 126/74 04/18/23 11:07 Pulse Ox 97 04/18/23 11:07 O2 Del Method Room Air 04/18/23 11:07 BMI result Body Mass Index 28.1 Appearing in no acute distress lung sounds are clear to auscultation heart regular rate rhythm, clear S1, S2 positive bowel sounds, abdomen is soft, nontender neuro patient is alert x3, no focal deficits Objective Data Active Medications Acetaminophen (Acetaminophen 325 Mg Tablet) 650 mg PO Q6H PRN PRN Reason: Pain, Mild (Pain Scale 1-3) Last Admin: 04/18/23 08:40 Dose: 650 mg Documented By: FRANCO Docusate Sodium (Docusate Sodium 100 Mg Capsule) 100 mg PO DAILY PRN PRN Reason: Constipation Last Admin: 04/14/23 16:46 Dose: 100 mg Documented By: RAFA Furosemide (Furosemide 40 Mg Tablet) 40 mg PO DAILY [facility]; Protocol Last Admin: 04/18/23 08:40 Dose: 40 mg Documented By: FRANCO Ceftriaxone Sodium 1 gm/ (Sodium Chloride) 50 mls @ 100 mls/hr IV Q24H [facility] Last Infusion: 04/18/23 10:09 Dose: 0 mls/hr Documented By: FRANCO [facility] ([facility] Mg [facility] Last Admin: 04/18/23 08:40 Dose: 400 mg Documented By: FRANCO Melatonin (Melatonin 3 Mg Tablet) 6 mg PO BEDTIME PRN PRN Reason: Insomnia Last Admin: 04/17/23 21:28 Dose: 6 mg Documented By: LISSETT Metoprolol Tartrate (Metoprolol Tartrate 25 Mg Tablet) 25 mg PO BID [facility]; Protocol Last Admin: 04/18/23 08:40 Dose: 25 mg Documented By: FRANCO Ondansetron HCl (Ondansetron Hcl 4 Mg/2 Ml Vial) 4 mg IVPUSH Q8H PRN PRN Reason: Nausea and Vomiting Pharmacy Consult (Consult Rx Perform Med Rec) 1 each MISCELLANE ONCE PRN PRN Reason: Consult order Sodium Chloride (0.9 % Sodium Chloride Flush 3 Ml Syringe) 3 ml IVFLUSH QSHIFT [facility] Last Admin: 04/18/23 08:41 Dose: 3 ml Documented By: FRANCO Tamsulosin HCl (Tamsulosin Hcl 0.4 Mg Capsule) 0.4 mg PO BEDTIME [facility] Last Admin: 04/17/23 21:23 Dose: 0.4 mg Documented By: LISSETT Labs 04/12/23 05:50 04/18/23 05:33 Labs: Laboratory Results - last 24 hr 04/18/23 04/18/23 05:33 05:33 Anion Gap 10 L Estim Creat Clear Calc 91.0 Estimated GFR > 60 Random Glucose 138 H Calcium 7.5 L D Magnesium 1.9 Assessment and Plan (1) Bacteremia: Status: Acute (2) CHF (congestive heart failure): Status: Acute (3) Urinary retention: Status: Acute Plan 72-year-old male with history of hypertension comes into the hospital with complaints of shortness of breath, fall, as well as leg pain as well as abdominal pain and found to be in CHF, acute lactic acidosis, and now bacteremia Acute exacerbation of CHF. resolved now euvolemic Echo EF 55 to 60% Now on oral Lasix 40mg Bacteremia Kluyvera intermedia (GNR ) bacteremia and also in the Urine sensitive to Ceftriaxone, started 04/12, continue and likely change to PO Ceftin at discharge for total of 14 days per ID Coag negative staph bacteremia--contamination, Stopped Vanco Urinary retention Patient has been having trouble voiding since last night, only producing a slight dribble Bladder scan showed 700 cc in bladder Urology consult Tachycardia Pt experienced runs of like SVT in the 150s-160s Cardiology consult rec continue metoprolol Monitor Mag and K closely Hypomagnesemia/hypokalemia/hypocalcemia Mag 2 g IV, started magnesium 400 mg p.o. b.i.d. Follow Mag potassium repleted added calcium carbonate Hypokalemia repleted and resolved Acute lactic acidosis Not due to sepsis Elevated LFTs secondary to fatty liver/ liver disease in the setting of alcohol abuse Alcohol use disorder, no signs of withdrawal drinks 2 to 3 times a week Last drink 2 days prior to admission, no evidence of withdrawal at this time CIWA scale Hypertension Stable not on any home medications Fall Likely mechanical PT rec str, patient agreed DVT prophylaxis: early ambulation, SCDs, given history of hemorrhagic stroke Attending Dr. Alonso Full code Patient requires additional hospitalization for monitoring of electrolytes and urinary retention, and PT evaluation for safe disposition home. Time Spent With Patient Time: Total time managing care of this patient today ____ minutes. Quality Stroke Does the patient have a stroke diagnosis?: No VTE Prior VTE?: No VTE Risk Level:: Medical - moderate - high VTE Device Contraindication: N/A - Device Ordered VTE Drug Contraindication: Treatment Not Indicated
[2023-04-18] MEDS: Tamsulosin HCL 0.4 MG CAPSULE PO (20:25)
[2023-04-19 03:39] VITALS: BP 118/67; PULSE 59; RESP 18; TEMP 36.2; O2SAT 95
[2023-04-19 06:00] VITALS: BMI 27.3
[2023-04-19 06:13] LABS: Alanine Aminotransferase 29 U/L (0-40); Albumin Level 1.8 g/dL (3.5-5.0); Alkaline Phosphatase 128 U/L (39-117); Anion Gap 8 (12-20); Aspartate Amino Transferase 58 U/L (5-37); Bilirubin Direct 2.3 mg/dL (0.0-0.5); Bilirubin Total 3.3 mg/dL (0.0-1.0); Blood Urea Nitrogen 6 mg/dL (9-16); Calcium 7.9 mg/dL (8.4-10.2); Carbon Dioxide 30 mmol/L (22-29); Chloride 101 mmol/L (96-108); Creatinine Clr Calc Pharmacy 94.5; Estimated Glomerular Filt Rate > 60; Glucose Random 133 mg/dL (60-115); Magnesium 1.8 mg/dL (1.6-2.6); Potassium 3.1 mmol/L (3.3-5.1); Sodium 136 mmol/L (135-145); Total Protein 5.3 g/dL (6.5-8.0)
[2023-04-19] MEDS: cefTRIAXone sodium 1 GM in 0.9 % Sodium Chloride 50 ML IV (06:31)
[2023-04-19 07:00] VITALS: BP 118/65; PULSE 61; RESP 18; TEMP 36.3; O2SAT 97
[2023-04-19] MEDS: Furosemide 40 MG TABLET PO (08:12)
[2023-04-19] MEDS: Potassium Chloride ER 20 MEQ TAB.ER.PRT 40 MEQ PO (08:12)
[2023-04-19] MEDS: Magnesium Oxide 400 MG TABLET PO ×2 (08:13→17:38)
[2023-04-19] MEDS: 0.9 % Sodium Chloride Flush 3 ML SYRINGE IVFLUSH ×3 (08:13→20:22)
[2023-04-19] MEDS: Metoprolol Tartrate 25 MG TABLET PO ×2 (08:13→20:21)
[2023-04-19] MEDS: Acetaminophen 325 MG TABLET 650 MG PO ×3 (08:14→20:22)
--- NOTE | 2023-04-19 08:48 | HO.PM.IMPN ---
Subjective Subjective Date of Service: 04/19/23 Interval History: Follow-up the patient with acute CHF exacerbation, bacteremia, and runs of SVT in 150-160s denied pain, nausea and vomiting no sob Physical Exam Vital Signs: Vital Signs: Last Vital Signs Temp 97.3 F 04/19/23 07:00 Pulse 61 04/19/23 07:00 Resp 18 04/19/23 07:00 BP 118/65 04/19/23 07:00 Pulse Ox 97 04/19/23 07:00 O2 Del Method Room Air 04/19/23 07:00 BMI result Body Mass Index 27.3 Appearing in no acute distress lung sounds are clear to auscultation heart regular rate rhythm, clear S1, S2 positive bowel sounds, abdomen is soft, nontender neuro patient is alert x3, no focal deficits Objective Data Active Medications Acetaminophen (Acetaminophen 325 Mg Tablet) 650 mg PO Q6H PRN PRN Reason: Pain, Mild (Pain Scale 1-3) Last Admin: 04/19/23 08:14 Dose: 650 mg Documented By: HELIO Calcium Carbonate (Calcium Carbonate 500 Mg Tablet) 500 mg PO DAILY [facility] Last Admin: 04/19/23 08:13 Dose: 500 mg Documented By: HELIO Docusate Sodium (Docusate Sodium 100 Mg Capsule) 100 mg PO DAILY PRN PRN Reason: Constipation Last Admin: 04/14/23 16:46 Dose: 100 mg Documented By: RAFA Furosemide (Furosemide 40 Mg Tablet) 40 mg PO DAILY [facility]; Protocol Last Admin: 04/19/23 08:12 Dose: 40 mg Documented By: HELIO Ceftriaxone Sodium 1 gm/ (Sodium Chloride) 50 mls @ 100 mls/hr IV Q24H [facility] Last Infusion: 04/19/23 07:01 Dose: 0 mls/hr Documented By: HELIO Magnesium Oxide (Magnesium Oxide 400 Mg Tablet) 400 mg PO BIDPC [facility] Last Admin: 04/19/23 08:13 Dose: 400 mg Documented By: HELIO Melatonin (Melatonin 3 Mg Tablet) 6 mg PO BEDTIME PRN PRN Reason: Insomnia Last Admin: 04/17/23 21:28 Dose: 6 mg Documented By: LISSETT Metoprolol Tartrate (Metoprolol Tartrate 25 Mg Tablet) 25 mg PO BID [facility]; Protocol Last Admin: 04/19/23 08:13 Dose: 25 mg Documented By: HELIO Ondansetron HCl (Ondansetron Hcl 4 Mg/2 Ml Vial) 4 mg IVPUSH Q8H PRN PRN Reason: Nausea and Vomiting Pharmacy Consult (Consult Rx Perform Med Rec) 1 each MISCELLANE ONCE PRN PRN Reason: Consult order Sodium Chloride (0.9 % Sodium Chloride Flush 3 Ml Syringe) 3 ml IVFLUSH QSHIFT [facility] Last Admin: 04/19/23 08:13 Dose: 3 ml Documented By: HELIO Tamsulosin HCl (Tamsulosin Hcl 0.4 Mg Capsule) 0.4 mg PO BEDTIME [facility] Last Admin: 04/18/23 20:25 Dose: 0.4 mg Documented By: LEON Labs 04/12/23 05:50 04/19/23 05:37 Labs: Laboratory Results - last 24 hr 04/19/23 04/19/23 05:37 05:37 Anion Gap 8 L Estim Creat Clear Calc 94.5 Estimated GFR > 60 Random Glucose 133 H Calcium 7.9 L Magnesium 1.8 Cancelled Total Bilirubin 3.3 H Cancelled Direct Bilirubin 2.3 H Cancelled AST 58 H Cancelled ALT 29 Cancelled Alkaline Phosphatase 128 H Cancelled Total Protein 5.3 L Cancelled Albumin 1.8 L Cancelled Assessment and Plan (1) Bacteremia: Status: Acute (2) CHF (congestive heart failure): Status: Acute (3) Urinary retention: Status: Acute Plan 72-year-old male with history of hypertension comes into the hospital with complaints of shortness of breath, fall, as well as leg pain as well as abdominal pain and found to be in CHF, acute lactic acidosis, and now bacteremia Acute exacerbation of CHF. resolved now euvolemic Echo EF 55 to 60% Now on oral Lasix 40mg Bacteremia Kluyvera intermedia (GNR ) bacteremia and also in the Urine sensitive to Ceftriaxone, started 04/12, continue and change to PO Ceftin at discharge for total of 14 days per ID Coag negative staph bacteremia--contamination, Stopped Vanco Urinary retention. Resolved urology consult>no need for f/c, start flomax Tachycardia. Resolved Pt experienced runs of like SVT in the 150s-160s Cardiology consult> rec continue metoprolol Monitor Mag and K closely Hypomagnesemia/hypokalemia/hypocalcemia Mag 2 g IV, started magnesium 400 mg p.o. b.i.d. Follow Mag potassium repleted added calcium carbonate Acute lactic acidosis Not due to sepsis Elevated LFTs secondary to fatty liver/ liver disease in the setting of alcohol abuse Alcohol use disorder, no signs of withdrawal drinks 2 to 3 times a week Last drink 2 days prior to admission, no evidence of withdrawal at this time CIWA scale Hypertension Stable not on any home medications Fall Likely mechanical PT rec str, patient agreed DVT prophylaxis: early ambulation, SCDs, given history of hemorrhagic stroke Attending Dr. Alonso Full code DISPO plan is for STR when bed available, waiting for auth Patient requires additional hospitalization for monitoring of electrolytes and urinary retention, and PT evaluation for safe disposition home. Time Spent With Patient Time: Total time managing care of this patient today ____ minutes. Quality Stroke Does the patient have a stroke diagnosis?: No VTE Prior VTE?: No VTE Risk Level:: Medical - moderate - high VTE Device Contraindication: N/A - Device Ordered VTE Drug Contraindication: Treatment Not Indicated
[2023-04-19 11:05] VITALS: BP 97/65; PULSE 62; RESP 18; TEMP 36.5; O2SAT 94
[2023-04-19 12:08] LABS: Potassium 3.1 mmol/L (3.3-5.1)
[2023-04-19 15:04] VITALS: BP 107/56; PULSE 68; RESP 20; TEMP 36.7; O2SAT 98
--- NOTE | 2023-04-19 16:11 | MHC.CM.PN ---
Aleida Linares [facility] has authorization from [facility] and can take Patient tomorrow at 11AM. MD & RN are aware.Transportation has been booked with [place].
--- NOTE | 2023-04-19 17:00 | P.CDIM_ITS ---
PROVIDER RESPONSE TEXT: To clarify, the appropriate diagnosis supported by the clinical indicators: Diastolic: acute on chronic QUERY TEXT: PHYSICIAN'S DOCUMENTATION REQUEST Date of Query: 04/14/2023 08:37 AM EDT Patient Name: Gadiel Arevalo Admit Date: 04/12/2023 Dear Alvaro Monge, A review of the medical record indicates additional documentation may be needed. Please review below and update the documentation accordingly. Clinical Indicators: PN: Acute exacerbation of CHF - improved, echo EF 55 to 60%, transition to oral Lasix today. BNP 524 IV Lasix Please provide further specificity regarding the most likely type and acuity of CHF you are evaluatin g, treating, or monitoring. Systolic Please specify if Acute, Chronic, or Acute on chronic, or Unable to determine Diastolic Please specify if Acute, Chronic, or Acute on chronic, or Unable to determine Combined Systolic/Diastolic Please specify if Acute, Chronic, or Acute on chronic, or Unable to determine Other (explain)Clinically unable to determine (explain)Thank you, Terra De, CCS, CDIS Use of terms such as suspected, likely, concern for, or probable (associated with a specific diagnosi s that is being evaluated, monitored, or treated as if it exists) are acceptable and can be coded in the inpatient se tting, when documented at the time of discharge. Please use your independent medical judgment in providing your response. THIS QUERY IS PART OF THE PERMANENT MEDICAL RECORD
[2023-04-19 19:03] VITALS: BP 110/58; PULSE 75; RESP 20; TEMP 36.8; O2SAT 97
[2023-04-19] MEDS: Tamsulosin HCL 0.4 MG CAPSULE PO (20:21)
[2023-04-19] MEDS: Melatonin 3 MG TABLET 6 MG PO (20:21)
[2023-04-19] MEDS: Docusate Sodium 100 MG CAPSULE PO (20:22)
[2023-04-19 23:07] VITALS: BP 140/90; PULSE 74; RESP 18; TEMP 36.6; O2SAT 96
[2023-04-20] MEDS: Acetaminophen 325 MG TABLET 650 MG PO ×2 (00:55→09:28)
[2023-04-20 03:48] VITALS: BP 117/69; PULSE 65; RESP 18; TEMP 36.6; O2SAT 96
[2023-04-20 06:00] VITALS: BMI 27.8
[2023-04-20] MEDS: cefTRIAXone sodium 1 GM in 0.9 % Sodium Chloride 50 ML IV (06:03)
[2023-04-20 07:04] VITALS: BP 126/75; PULSE 70; RESP 18; TEMP 36.6; O2SAT 94
--- NOTE | 2023-04-20 08:10 | MHC.CM.PN ---
Per PA, PATIENT IS MEDICALLY CLEARED FOR DC TO snf/str TODAY. pATIENT WILL DC TO [facility] TODAY AT 11 am VIA [facility]. cm MET WITH pATIENT AT BEDSIDE AND ADDRESSED imm WITH HIM, PROVIDING pATIENT WITH THE ORIGINAL AND PLACING A COPY ON THE CHART.CM attempted to inform Brother/HCP/[place] @ [phone] of the dc plan but his mailbox is full.
[2023-04-20] MEDS: Magnesium Oxide 400 MG TABLET PO (09:29)
[2023-04-20] MEDS: Metoprolol Tartrate 25 MG TABLET PO (09:29)
[2023-04-20] MEDS: Furosemide 40 MG TABLET PO (09:29)
[2023-04-20] MEDS: 0.9 % Sodium Chloride Flush 3 ML SYRINGE IVFLUSH (09:32)
[2023-04-20] MEDS: Potassium Chloride Packet 20 MEQ PACKET 40 MEQ PO (10:16)
--- NOTE | 2023-04-20 10:35 | PM.DS ---
DS: Providers Provider Date of Service: 04/20/23 Date of admission: 04/12/23 01:38 Date of discharge: 04/20/23 Primary care physician: Benjamin Meadows MD Consults: 04/12/23 06:52 Consult to Cardiology Routine Consulting Provider: [facility] Cardiovascular Services Reason for consultation: acute CHF, no previous history Has provider been notified: No 04/13/23 08:51 Consult to Infectious Diseases Routine Consulting Provider: [facility] Infectious Disease Reason for consultation: polymicrobial bacteremia Has provider been notified: No 04/16/23 12:54 Consult to Urology Routine Consulting Provider: Rosemary Reardon Reason for consultation: Urinary retention, pt on Lasix p.o., 700 cc in bladder Attending physician on discharge: Kasi Alonso Discharging clinician: Izzy Epps DS: Diagnosis Discharge Diagnosis (1) Bacteremia: Status: Acute (2) CHF (congestive heart failure): Status: Acute (3) Urinary retention: Status: Acute DS: Summary Hospital Course Hospital Course: From H&P on day of admission this is a 72-year-old male with past medical history? of hypertension, tells me that he has history of hemorrhagic stroke in bleed in the brain about a year and half ago, as well as alcohol abuse comes into the hospital with complaints of shortness of breath.? Patient reports that he was walking up hill to get to his house when all the sudden he became very short of breath, and fell forward.? He reports that he tripped and fell and did not lose any consciousness.? Denies having any cough, reports that his been feeling short of breath for the past several months worsened recently, he also has lower extremity swelling for the past several months that has worsened recently.? He denies orthopnea, no PND, no cough, no fever chills.? Patient reports having abdominal pain that is diffuse, radiating to the sides of his abdomen, radiating to the back, no nausea or vomiting, no diarrhea constipation.? The pain is 10/10, chronic, intermittent, no relieving or exacerbating factors.? Patient does report that he drinks 2 to 3 times a week, no history of withdrawals.? Last drink was 2 nights? ago.? he also reports that he has been having difficulty walking as his feet hurt.? This has been going on for several months. ?on arrival to the ED patient hemodynamically stable with no significant abnormality Labs are significant for WBC count of 7.8, hemoglobin of 12, hematocrit 35.5, AST of 189, ALT of 41, alk-phos of 156, troponin negative, BNP of 524, albumin of 2.3, normal B12 and folic acid, UA positive for nitrites, WBC, as well as leukocyte Estrace ? Abdomen pelvic CT shows previously visualized pancreatic tail mass has resolved, no residual or recurrent mass or abnormality seen in the pancreas, diffuse hepatic steatosis without focal lesion, cholelithiasis without wall thickening Abdominal ultrasound shows cholelithiasis without cholecystitis, enlarged fatty liver Hospital course by problem: Acute HFpEF. resolved initially diuresed, seen by cardiology, now euvolemic and on po lasix. Echo EF 55 to 60%. Outpatient follow up with cardiology. recommend low sodium diet. monitor daily weight Bacteremia Kluyvera intermedia (GNR ) bacteremia and also in the Urine sensitive to Ceftriaxone, started 04/12, continue and change to PO Ceftin at discharge for total of 14 days per ID Coag negative staph bacteremia--contamination, Stopped Vanco Urinary retention. Resolved urology consult>no need for f/c, start flomax. recommend outpatient follow up with urology Tachycardia. Resolved Pt experienced runs of like SVT in the 150s-160s. Likely related to low magnesium. evaluated by Cardiology added metoprolol. started on magnesium and potassium replacement. monitor electrolytes closely Hypomagnesemia/hypokalemia/hypocalcemia Initially treated with IV Magnesium, then started magnesium 400 mg p.o. b.i.d. Acute lactic acidosis Not due to sepsis Elevated LFTs secondary to fatty liver/ liver disease in the setting of alcohol abuse US showed cholelithiasis but no abdominal pain and no evidence of cholecystitis. LFTs trending down, appears to have some chronic elevation. recommend outpatient follow up of LFTs Alcohol use disorder, no signs of withdrawal Last drink 2 days prior to admission, no evidence of withdrawal at this time Thrombocytopenia r/t liver disease Time Spent with Patient Time attestation: Total time managing care of this patient today ____ minutes. Discharge coordination time: Greater than 30 minutes Quality: Safe Use of Opioids Does Pt have an Active Cancer Diagnosis on the Problem List?: No Quality: Stroke Does the patient have a stroke diagnosis?: No Physical Exam Vital Signs: Vital Signs: Last Vital Signs Temp 98 F 04/20/23 07:04 Pulse 70 04/20/23 07:04 Resp 18 04/20/23 07:04 BP 126/75 04/20/23 07:04 Pulse Ox 94 04/20/23 07:04 O2 Del Method Room Air 04/20/23 07:04 BMI result Body Mass Index 27.8 Const: General: cooperative, comfortable, no acute distress, alert and awake Nutritional Appearance: average body habitus Orientation/consciousness: patient oriented x3 Resp: Effort & Inspection: normal respiratory effort, able to speak in complete sentences, no respiratory distress and no use of accessory muscles Cardio: Rate: regular rate Heart sounds: S1 normal heart sound present and S2 normal heart sound present GI: Inspection: No distended Palpation (GI): Soft to palpation and nontender Skin: Other: ecchymosis left arm Neuro: General: patient oriented x3, moves all extremities and CN's II-XI intact bilaterally Extrem: Other: ankle edema b/l DS: Data Data Completed and Pending Labs on day of discharge: Laboratory Results - last 24 hr 04/19/23 04/20/23 11:53 09:35 Potassium 3.1 L 3.0 L Discharge Plan Discharge Anticipated Discharge Date/Time: 04/20/23 11:00 Patient Disposition: Xfer SNF Discharge Diagnosis: UTI/bacteremia CHF exacerbation SVT hypokalemia Referrals: [facility] Linares [Outside] - 1 Week Rosemary Reardon MD [Physician] - 1 Week Benjamin Meadows MD [Primary Care Provider] - 1 Week Discharge Medications: New tamsulosin 0.4 mg Capsule 0.4 mg PO BEDTIME 30 Days Qty: 30 0RF metoprolol tartrate 25 mg Tablet 25 mg PO BID 30 Days Qty: 60 0RF Protocol: Hold for SBP/HR < HOLD for SBP < : 90 HOLD for HR < : 60 calcium carbonate [Oyster Shell Calcium 500] 500 mg calcium (1,250 mg) Tablet 500 mg PO DAILY 30 Days Qty: 30 0RF furosemide 40 mg Tablet 40 mg PO DAILY 30 Days Qty: 30 0RF Protocol: Hold for SBP< HOLD for SBP < : 90 magnesium oxide 400 mg (241.3 mg magnesium) Tablet 400 mg PO BIDPC 30 Days Qty: 60 0RF potassium chloride 20 mEq packet 20 meq PO DAILY 7 Days Qty: 30 0RF cefuroxime axetil 500 mg tablet 500 mg PO BID 7 Days Qty: 14 0RF Discharge Orders: Discharge Order (Routine); Ordered 04/20/23 Ordered By: Izzy Epps Activity on Discharge: As tolerated Stand Alone Forms: Patient Portal Discharge page Care Plan Goals: see below Health Concerns: SVT CHF UTI/bacteremia urinary retension Plan of Treatment: take lasix daily as ordered, monitor daily weight, low sodium diet for low potassium, take 20meq daily as prescribed, repeat potassium level on Tuesday 04/24 and continue supplementation as needed SVT - continue metoprolol for UTI/bacteremia - complete course of antibiotics with 7 more days of ceftin outpatient follow up with urology, continue flomax periodic monitoring of LFTs Assessment: see discharge summary
[2023-04-20 10:41] VITALS: BP 126/75; PULSE 70; O2SAT 94
[2023-04-20 11:00] VITALS: BP 103/67; PULSE 78; RESP 18; TEMP 36.3; O2SAT 98
== END 2023-04-20 11:48 | disposition skilled nursing facility (03) | DRG 291 ==
LOC: HO.ED 04-12 00:59 → HO.EDOVER 04-12 01:42 → HO.IMC 04-12 14:40
PROVIDERS: Internal Medicine; Nurse Practitioner Acute Care; Student in an Organized Health Care Education/Training Program; Admitting Provider Internal Medicine; Emergency Provider Internal Medicine; PCP Internal Medicine; Visit Provider Physician Assistant Medical
DX: I11.0 Hypertensive heart disease with heart failure (principal); I50.33 Acute on chronic diastolic (congestive) heart failure; N39.0 Urinary tract infection, site not specified; E87.21 Acute metabolic acidosis; I47.1 Supraventricular tachycardia; N40.1 Benign prostatic hyperplasia with lower urinary tract symptoms; R33.8 Other retention of urine; E83.51 Hypocalcemia; E83.42 Hypomagnesemia; E87.6 Hypokalemia; F10.20 Alcohol dependence, uncomplicated; R78.81 Bacteremia; B96.89 Other specified bacterial agents as the cause of diseases classified elsewhere; F32.9 Major depressive disorder, single episode, unspecified; K70.0 Alcoholic fatty liver; Z87.891 Personal history of nicotine dependence; Z79.899 Other long term (current) drug therapy
CPT/HCPCS: 36415; 71045; 74177; 76705; 80048; 80053; 80076; 80202; 80307; 81001; 82248; 82565; 82607; 82728; 82746; 83605; 83690; 83735; 83880; 84132; 84484; 85025; 87040; 87077; 87086; 87088; 87147; 87186; 87205; 93005; 93306; 97116; 97162; 97530; 99285; J0696; J1940; J2060; J3370; J3475; Q9957; Q9967

== ENCOUNTER → 2023-04-11 17:16 | Outpatient (BNV) | payer MEDICARE, SELFPAY | PROVIDERS: Admitting Provider Internal Medicine; Emergency Provider Internal Medicine; PCP Internal Medicine; Visit Provider Internal Medicine Cardiovascular Disease | DX: I45.81 Long QT syndrome (principal) | CPT/HCPCS: 93010 ==

== ENCOUNTER 2023-04-12 01:38 | Outpatient (BNV) | payer MEDICARE, SELFPAY | END 2023-04-14 09:22 | PROVIDERS: Admitting Provider Internal Medicine; Emergency Provider Internal Medicine; PCP Internal Medicine; Visit Provider Internal Medicine Cardiovascular Disease | DX: I49.1 Atrial premature depolarization (principal) | CPT/HCPCS: 93010 ==

== ENCOUNTER 2023-04-12 01:38 | Outpatient (BNV) | payer MEDICARE, SELFPAY | END 2023-04-12 07:00 | PROVIDERS: Admitting Provider Internal Medicine; Emergency Provider Internal Medicine; PCP Internal Medicine; Visit Provider Internal Medicine Cardiovascular Disease | DX: I50.9 Heart failure, unspecified (principal) | CPT/HCPCS: 93306 ==

== ENCOUNTER 2023-04-12 01:38 | Outpatient (BNV) | payer MEDICARE, SELFPAY | END 2023-04-15 08:19 | PROVIDERS: Admitting Provider Internal Medicine; Emergency Provider Internal Medicine; PCP Internal Medicine; Visit Provider Internal Medicine Cardiovascular Disease | DX: I49.1 Atrial premature depolarization (principal) | CPT/HCPCS: 93010 ==

== ENCOUNTER → 2023-04-12 01:38 | Outpatient (BNV) | payer MEDICARE, SELFPAY | PROVIDERS: Admitting Provider Internal Medicine; Emergency Provider Internal Medicine; PCP Internal Medicine; Visit Provider Urology | DX: N39.0 Urinary tract infection, site not specified (principal); N40.1 Benign prostatic hyperplasia with lower urinary tract symptoms | CPT/HCPCS: 99222 ==

== ENCOUNTER → 2023-04-12 01:38 | Outpatient (BNV) | payer MEDICARE, SELFPAY | PROVIDERS: Admitting Provider Internal Medicine; Emergency Provider Internal Medicine; PCP Internal Medicine; Visit Provider Internal Medicine | DX: R78.81 Bacteremia (principal); N39.0 Urinary tract infection, site not specified; K80.20 Calculus of gallbladder without cholecystitis without obstruction | CPT/HCPCS: 99222 ==

== ENCOUNTER → 2023-04-12 01:38 | Outpatient (BNV) | payer MEDICARE, SELFPAY | PROVIDERS: Admitting Provider Internal Medicine; Emergency Provider Internal Medicine; Visit Provider Internal Medicine | DX: R78.81 Bacteremia (principal); I50.9 Heart failure, unspecified; R33.9 Retention of urine, unspecified | CPT/HCPCS: 99223; 99232; 99233; 99239; 99499 ==

== ENCOUNTER → 2023-04-12 01:38 | Outpatient (BNV) | payer MEDICARE, SELFPAY | PROVIDERS: Admitting Provider Internal Medicine; Emergency Provider Internal Medicine; PCP Internal Medicine; Visit Provider Internal Medicine Cardiovascular Disease | DX: I50.9 Heart failure, unspecified (principal); R78.81 Bacteremia | CPT/HCPCS: 99222; 99232 ==

== ENCOUNTER 2023-11-22 22:01 | Inpatient (IN) | payer MEDICARE, SELFPAY ==
--- NOTE | ~2023-11-22 | CT_ITS ---
EXAMINATION: CT ABDOMEN AND PELVIS WITHOUT CONTRAST CLINICAL INFORMATION: Abdominal pain. COMPARISON: 04/11/2023 TECHNIQUE: Multidetector volumetric imaging was performed from the superior aspect of the liver through the pubic symphysis. Sagittal and coronal reformatted images were obtained on the technologist's workstation. This CT examination was performed using dose optimization techniques as appropriate, variously including the following: *Automated exposure control *Adjustment of mA and/or kV according to patient size (this includes techniques or standardized protocols for targeted exams where dose is matched to indication/reason for exam; i.e. extremities or head) *Use of iterative reconstruction technique DLP: 590 mGy-cm FINDINGS: LUNG BASES: The visualized lung bases are unremarkable. LIVER, GALLBLADDER, AND BILIARY TREE: There is a subcentimeter cyst at the dome of the liver. There has been significant resolution of previously noted fatty infiltration of the liver. There is no intrahepatic biliary duct dilatation. Multiple small gallstones and/or sludge is noted within the gallbladder. PANCREAS: There are pancreatic calcifications throughout. SPLEEN: Unremarkable. ADRENAL GLANDS: Unremarkable. KIDNEYS AND URETERS: The kidneys are normal in size, shape, and attenuation. 2 mm calculus mid to upper pole left kidney. There is a 1.7 cm cyst lower pole right kidney. BLADDER: Unremarkable. GASTROINTESTINAL TRACT: There is retained stool. There are a few diverticula of the transverse and descending colon without diverticulitis. ABDOMINAL WALL: No significant hernia is appreciated. LYMPH NODES: Normal. VASCULAR: Mild atherosclerotic plaque of the abdominal aorta. PELVIC VISCERA: Prostate gland hypertrophy and numerous prostate calcifications are noted. OSSEOUS STRUCTURES: Unremarkable. CT/CT abdomen pelvis wo IV con IMPRESSION: 1. Cholelithiasis and/or sludge within the gallbladder. 2. Chronic pancreatitis. 3. Diverticulosis without diverticulitis. 4. Nonobstructing left renal calculus. Fleischner guidelines were followed.
--- NOTE | ~2023-11-22 | CT_ITS ---
EXAMINATION: CT HEAD WITHOUT CONTRAST CLINICAL INFORMATION: Headaches. History of hemorrhagic stroke. COMPARISON: Head CT dated 06/01/2021. Brain MRI dated 06/02/2021. TECHNIQUE: Contiguous axial imaging was performed from the skullbase to vertex without intravenous administration of contrast. This CT examination was performed using dose optimization techniques as appropriate, variously including the following: *Automated exposure control *Adjustment of mA and/or kV according to patient size (this includes techniques or standardized protocols for targeted exams where dose is matched to indication/reason for exam; i.e. extremities or head) *Use of iterative reconstruction technique DLP: 753 mGy-cm. FINDINGS: There is a chronic infarct with encephalomalacia in the right frontal white matter, also visible on previous imaging. Mild chronic white matter microangiopathy again noted. There is no evidence of acute intracranial hemorrhage or territorial infarction. No abnormal mass effect or midline shift is seen. No extra-axial fluid collections are identified. There is [id number] generalized brain parenchymal volume loss with commensurate ex vacuo dilatation of the ventricles. Small chronic lacunar infarct visible in the left caudate body. The osseous structures and soft tissues are normal. The mastoid air cells and visualized portions of the paranasal sinuses are well aerated. CT/CT head/brain wo IV con IMPRESSION: No acute intracranial hemorrhage or territorial infarction. Generalized parenchymal volume loss and mild chronic white matter microangiopathy. Chronic infarct in the right frontal lobe, as seen on prior imaging.
--- NOTE | ~2023-11-22 | XR_ITS ---
EXAMINATION: XR CHEST CLINICAL INFORMATION: Shortness of breath COMPARISON: Chest radiograph from 04/11/2023 TECHNIQUE: Frontal view of the chest was obtained. FINDINGS: Bilateral low lung volumes. Accentuation of pulmonary vasculature. No pneumothorax. Trachea is midline. Cardiac mediastinal silhouette is stable. Aorta demonstrates tortuosity. No large pleural effusion. Osseous structures are intact. Soft tissues are unremarkable. XR/XR chest 1V IMPRESSION: 1. Bilateral low lung volumes. 2. Accentuation of pulmonary vasculature.
[2023-11-22 22:08] VITALS: BP 158/86; PULSE 80; O2SAT 99
--- NOTE | 2023-11-22 22:28 | ECG_ITS ---
Test Reason : SOB Blood Pressure : / mmHG Vent. Rate : 059 BPM Atrial Rate : 059 BPM P-R Int : 190 ms QRS Dur : 124 ms QT Int : 486 ms P-R-T Axes : 033 -05 148 degrees QTc Int : 481 ms Sinus bradycardia Non-specific intra-ventricular conduction delay ST & T wave abnormality, consider anterolateral ischemia Abnormal ECG When compared with ECG of 15-APR-2023 08:20, Premature atrial complexes are no longer Present T wave inversion now evident in Anterior leads Referred By: Amelia Greene Electronically Signed By:KINGSTON OSBORNE
--- NOTE | 2023-11-22 22:30 | ED.WEAKNESS ---
HPI - Weakness General Chief complaint: General Medical Stated complaint: SOB,GENERAL MALAISE X2DAYS Time Seen by Provider: 11/22/23 22:15 History of Present Illness HPI Narrative: Patient is 73-year-old male presents today with having generalized malaise. Patient had outpatient labs drawn earlier today was noted to have a high sugar. Patient did not leave his cell phone on. The PA called the [place] [facility] police. The police went for a well check. Patient denies any fever chills. Mild generalized malaise. EMS noted a sugar in the 270 initially then a 2nd sugar that was read as high high. A small bolus of fluid was given by EMS. Patient has no chest pain or diaphoresis no fever no chills no pain on urination positive mild congestion upper respiratory symptoms. Vaccinated for COVID. Patient from home. Related Data Previous Rx's Medication Instructions Recorded calcium carbonate 500 mg calcium 500 mg PO DAILY 30 days #30 tabs 04/20/23 (1,250 mg) tablet (Oyster Shell Calcium 500) cefuroxime axetil 500 mg tablet 500 mg PO BID 7 days #14 tabs 04/20/23 furosemide 40 mg tablet 40 mg PO DAILY 30 days #30 tabs 04/20/23 magnesium oxide 400 mg (241.3 mg 400 mg PO BIDPC 30 days #60 tabs 04/20/23 magnesium) tablet metoprolol tartrate 25 mg tablet 25 mg PO BID 30 days #60 tabs 04/20/23 potassium chloride 20 mEq oral 20 meq PO DAILY 7 days #30 ea 04/20/23 packet tamsulosin 0.4 mg capsule 0.4 mg PO BEDTIME 30 days #30 caps 04/20/23 Allergies Allergy/AdvReac Type Severity Reaction Status Date / Time meperidine [From DEMEROL] Allergy Unknown UNKNOWN Verified 04/11/23 17:08 Review of Systems Review of Systems: No fever no chills no chest pain or diaphoresis Yes all other systems are reviewed and are negative [facility] Past Medical History Attestation statement: The following information was validated with the patient. Medical History CHF (congestive heart failure) Hemorrhagic stroke Cholelithiasis Alcohol use disorder HTN (hypertension) Surgical History No pertinent past surgical history Social History Social History Household Members: None Housing: Apartment Do you presently have visiting nurse or other home services: No Alcohol intake: current Alcohol intake frequency: 0-2 drinks per day Alcohol type: hard liquor Comment: pt continues refusing bed alarm; chair alarm on pt in bed Patient Tobacco Use Status: Former Tobacco user Smoked in Last 30 Days: No Second Hand Smoke Exposure: No Use of substances other than those prescribed or required for medical reasons: No Advance Directives: Yes Advance Directives on File: Yes Advance Directives Date on File: 04/12/23 service: No Current occupational status: disabled Physical Exam Vital Signs: Vital Signs: Last Vital Signs Temp 97.4 F 11/22/23 22:39 Pulse 62 11/22/23 22:39 Resp 20 11/22/23 22:39 BP 162/65 H 11/22/23 22:39 Pulse Ox 96 11/22/23 22:39 O2 Del Method Room Air 11/22/23 22:39 BMI result Body Mass Index 27.5 Appearance: Alert. Oriented X3. No acute distress. Eyes: Pupils equal, round and reactive to light. ENT: Pharynx normal. Neck: Normal inspection. Neck supple. No lymph nodes noted. No crepitus CVS: Normal heart rate and rhythm. Pulses normal. Normal S1 and S2 Respiratory: No respiratory distress. Breath sounds normal. No Wheezing. No rales Abdomen: Soft and nontender. No rigidity. No distention. good BS x4 Skin: Skin warm and dry. Normal skin color. Normal skin turgor. Extremities: No lower extremity edema. Neurovascular intact to all extremities. No Lacerations. No Rash Neuro: Oriented X 3. No motor deficit. No sensory deficit. Moving all extermities. No slurred speech Medications Administered Discontinued Medications Generic Name Dose Route Start Last Admin Trade Name Freq PRN Reason Stop Dose Admin Sodium Chloride 1,000 mls @ 999 mls/hr 11/22/23 22:30 11/23/23 00:29 Ns IV 11/22/23 23:30 Infused .Q1H1M HERACLIO Infusion Sodium Chloride 1,000 mls @ 999 mls/hr 11/23/23 00:00 11/23/23 00:31 Ns IV 11/23/23 01:00 999 mls/hr .Q1H1M HERACLIO Administration Insulin Human Regular 10 unit 11/23/23 00:00 11/23/23 00:29 Insulin Regular, Human 100 Unit/Ml 3 Ml Vial IVPUSH 11/23/23 00:01 10 unit ONCE ONE Administration Medical Decision Making Medical Decision Making [facility] Narrative: Patient's initial sugar was read as high high. Chemistry came back in his sugar came back at greater than 800. There is no anion gap. Patient's venous pH is normal. There has no acidosis noted. More likely patient has straight hyperglycemia. No evidence for diabetic ketoacidosis. Patient given initial L of fluids. Bolus of insulin. Sugar was checked every hour. Additional boluses of insulin was given after 2 hours. Patient's sugar is now down to approximately 500. Sodium is 124 but most likely a pseudo hyponatremia. Patient's case discussed with the hospitalist team. Will admit for further evaluation. Differential Diagnosis Differential Diagnoses: The differential diagnosis associated with the presentation includes Admission/Observation Consideration of admission/observation: Escalation of care including admission/observation considered Lab Data [facility] Lab Attestation statement: I reviewed the patient's lab results. 11/22/23 22:55 11/22/23 22:55 Labs: Lab Results 11/22/23 11/22/23 11/22/23 Range/Units 22:27 22:34 22:55 WBC 8.9 (4.8-10.8) X10*3/uL RBC 5.05 D (4.60-5.80) X10*6/uL Hgb 15.5 D (14.0-18.0) g/dl Hct 42.8 D (42.0-52.0) % MCV 84.8 (80.0-98.0) fL MCH 30.7 (27.0-33.0) pg MCHC 36.2 H (31.0-36.0) g/dl RDW 12.3 (11.0-16.0) % Plt Count 153 L D (160-400) X10*3/uL MPV 10.6 (9.4-12.4) fL Immature Gran % (Auto) 0.2 (0.0-0.4) % Neut % (Auto) 64.5 (45-73) % Lymph % (Auto) 26.9 (20-40) % Dickinson % (Auto) 7.9 (2-11) % Eos % (Auto) 0.3 (0-4) % Baso % (Auto) 0.2 (0-2) % Lymph # (Auto) 2.4 (1.2-4.9) X10*3/uL Dickinson # (Auto) 0.7 (0.1-1.2) X10*3/uL Eos # (Auto) 0.0 (0.0-0.4) X10*3/uL Baso # (Auto) 0.0 (0.0-0.2) X10*3/uL Abs Immat Gran (auto) 0.02 (0.00-0.03) X10*3/uL Absolute Neuts (auto) 5.7 (2.0-8.3) x10*3/uL Absolute Nucleated RBC 0.000 (0.0-0.012) X10*3/uL Nucleated RBC % (auto) 0.0 (0.0-0.2) /100WBC VBG pH (7.32-7.43) VBG pCO2 mmHg VBG pO2 mmHg VBG HCO3 (22-26) mmol/L VBG O2 Saturation % VBG Base Excess mmol/L Sodium 124 L (135-145) mmol/L Potassium 4.9 (3.3-5.1) mmol/L Chloride 89 L (96-108) mmol/L Carbon Dioxide 23 (22-29) mmol/L Anion Gap 17 (12-20) BUN 22 H (9-16) mg/dL Creatinine 1.93 H (0.5-1.4) mg/dL Estim Creat Clear Calc 34.6 Estimated GFR 34 POC Glucose > 600 H* > 600 H* (60-115) mg/dL Random Glucose 872 H* (60-115) mg/dL Calcium 9.7 D (8.4-10.2) mg/dL Troponin I High Sens 16.9 (<3.5-35.0) ng/L B-Natriuretic Peptide 124 H (<100) pg/mL Beta-Hydroxybutyrate 3.00 H (0.02-0.27) mmol/L Urine Color Urine Appearance Urine pH (5.0-9.0) Ur Specific [place] (1.005-1.025) Urine Protein (Neg-Trace) mg/dL Urine Glucose (UA) (Negative) mg/dL Urine Ketones (Negative) mg/dL Urine Blood (Negative) Urine Nitrite (Negative) Ur Leukocyte Esterase (Negative) Urine RBC (0-2) /HPF Urine WBC (0-5) /HPF Ur Squamous Epith Cells (0-2) /HPF Urine Bacteria (None Seen) Hyaline Casts (0-2) /LPF Urine Yeast Influenza Type A (PCR) NEGATIVE (Negative) Influenza Type B (PCR) NEGATIVE (Negative) RSV RNA Qual (PCR) NEGATIVE (Negative) SARS-CoV-2 RNA (RT-PCR) NEGATIVE (Negative) 11/22/23 11/22/23 11/22/23 Range/Units 22:59 23:20 23:57 WBC (4.8-10.8) X10*3/uL RBC (4.60-5.80) X10*6/uL Hgb (14.0-18.0) g/dl Hct (42.0-52.0) % MCV (80.0-98.0) fL MCH (27.0-33.0) pg MCHC (31.0-36.0) g/dl RDW (11.0-16.0) % Plt Count (160-400) X10*3/uL MPV (9.4-12.4) fL Immature Gran % (Auto) (0.0-0.4) % Neut % (Auto) (45-73) % Lymph % (Auto) (20-40) % Dickinson % (Auto) (2-11) % Eos % (Auto) (0-4) % Baso % (Auto) (0-2) % Lymph # (Auto) (1.2-4.9) X10*3/uL Dickinson # (Auto) (0.1-1.2) X10*3/uL Eos # (Auto) (0.0-0.4) X10*3/uL Baso # (Auto) (0.0-0.2) X10*3/uL Abs Immat Gran (auto) (0.00-0.03) X10*3/uL Absolute Neuts (auto) (2.0-8.3) x10*3/uL Absolute Nucleated RBC (0.0-0.012) X10*3/uL Nucleated RBC % (auto) (0.0-0.2) /100WBC VBG pH 7.38 (7.32-7.43) VBG pCO2 39 mmHg VBG pO2 46 mmHg VBG HCO3 23 (22-26) mmol/L VBG O2 Saturation 74.0 % VBG Base Excess -1.0 mmol/L Sodium (135-145) mmol/L Potassium (3.3-5.1) mmol/L Chloride (96-108) mmol/L Carbon Dioxide (22-29) mmol/L Anion Gap (12-20) BUN (9-16) mg/dL Creatinine (0.5-1.4) mg/dL Estim Creat Clear Calc Estimated GFR POC Glucose > 600 H* (60-115) mg/dL Random Glucose (60-115) mg/dL Calcium (8.4-10.2) mg/dL Troponin I High Sens (<3.5-35.0) ng/L B-Natriuretic Peptide (<100) pg/mL Beta-Hydroxybutyrate (0.02-0.27) mmol/L Urine Color Yellow Urine Appearance Clear Urine pH 5.5 (5.0-9.0) Ur Specific [place] >= 1.030 H (1.005-1.025) Urine Protein Negative (Neg-Trace) mg/dL Urine Glucose (UA) >=1000 H (Negative) mg/dL Urine Ketones 15 (Negative) mg/dL Urine Blood Negative (Negative) Urine Nitrite Negative (Negative) Ur Leukocyte Esterase Negative (Negative) Urine RBC 0-2 (0-2) /HPF Urine WBC 0-5 (0-5) /HPF Ur Squamous Epith Cells 0-2 (0-2) /HPF Urine Bacteria None Seen (None Seen) Hyaline Casts 0-2 (0-2) /LPF Urine Yeast Present Influenza Type A (PCR) (Negative) Influenza Type B (PCR) (Negative) RSV RNA Qual (PCR) (Negative) SARS-CoV-2 RNA (RT-PCR) (Negative) 11/23/23 Range/Units 01:10 WBC (4.8-10.8) X10*3/uL RBC (4.60-5.80) X10*6/uL Hgb (14.0-18.0) g/dl Hct (42.0-52.0) % MCV (80.0-98.0) fL MCH (27.0-33.0) pg MCHC (31.0-36.0) g/dl RDW (11.0-16.0) % Plt Count (160-400) X10*3/uL MPV (9.4-12.4) fL Immature Gran % (Auto) (0.0-0.4) % Neut % (Auto) (45-73) % Lymph % (Auto) (20-40) % Dickinson % (Auto) (2-11) % Eos % (Auto) (0-4) % Baso % (Auto) (0-2) % Lymph # (Auto) (1.2-4.9) X10*3/uL Dickinson # (Auto) (0.1-1.2) X10*3/uL Eos # (Auto) (0.0-0.4) X10*3/uL Baso # (Auto) (0.0-0.2) X10*3/uL Abs Immat Gran (auto) (0.00-0.03) X10*3/uL Absolute Neuts (auto) (2.0-8.3) x10*3/uL Absolute Nucleated RBC (0.0-0.012) X10*3/uL Nucleated RBC % (auto) (0.0-0.2) /100WBC VBG pH (7.32-7.43) VBG pCO2 mmHg VBG pO2 mmHg VBG HCO3 (22-26) mmol/L VBG O2 Saturation % VBG Base Excess mmol/L Sodium (135-145) mmol/L Potassium (3.3-5.1) mmol/L Chloride (96-108) mmol/L Carbon Dioxide (22-29) mmol/L Anion Gap (12-20) BUN (9-16) mg/dL Creatinine (0.5-1.4) mg/dL Estim Creat Clear Calc Estimated GFR POC Glucose 493 H* (60-115) mg/dL Random Glucose (60-115) mg/dL Calcium (8.4-10.2) mg/dL Troponin I High Sens (<3.5-35.0) ng/L B-Natriuretic Peptide (<100) pg/mL Beta-Hydroxybutyrate (0.02-0.27) mmol/L Urine Color Urine Appearance Urine pH (5.0-9.0) Ur Specific [place] (1.005-1.025) Urine Protein (Neg-Trace) mg/dL Urine Glucose (UA) (Negative) mg/dL Urine Ketones (Negative) mg/dL Urine Blood (Negative) Urine Nitrite (Negative) Ur Leukocyte Esterase (Negative) Urine RBC (0-2) /HPF Urine WBC (0-5) /HPF Ur Squamous Epith Cells (0-2) /HPF Urine Bacteria (None Seen) Hyaline Casts (0-2) /LPF Urine Yeast Influenza Type A (PCR) (Negative) Influenza Type B (PCR) (Negative) RSV RNA Qual (PCR) (Negative) SARS-CoV-2 RNA (RT-PCR) (Negative) ABG Data Attestation ABG: I personally reviewed and interpreted this ABG as follows: Interpretation: No acidosis noted. Straight hyperglycemia Independent Interpretation I performed an independent interpretation of an: Plain X-Ray (Chest x-ray grossly negative) Radiology Impression Discussion of test interpretation with radiology: I have reviewed the radiologist's reading. Chronic Conditions Patient?s care impacted by: Hypertension Critical Care Time Critical Care Time Critical Care Time: Yes Total Critical Care Time: 40 Attestation: I have personally provided 40 minutes of critical care time exclusive of time spent on separately billable procedures. ?Time includes review of lab data, radiology results, discussion with consultants, and monitoring for potential decompensation. ?Interventions were performed as documented above Discharge Plan Discharge Clinical Impression: Acute hyperglycemia Patient Disposition: Admitted As Inpatient Prescriptions: No Action tamsulosin 0.4 mg Capsule 0.4 mg PO BEDTIME 30 Days Qty: 30 0RF metoprolol tartrate 25 mg Tablet 25 mg PO BID 30 Days Qty: 60 0RF Protocol: Hold for SBP/HR < HOLD for SBP < : 90 HOLD for HR < : 60 calcium carbonate [Oyster Shell Calcium 500] 500 mg calcium (1,250 mg) Tablet 500 mg PO DAILY 30 Days Qty: 30 0RF furosemide 40 mg Tablet 40 mg PO DAILY 30 Days Qty: 30 0RF Protocol: Hold for SBP< HOLD for SBP < : 90 magnesium oxide 400 mg (241.3 mg magnesium) Tablet 400 mg PO BIDPC 30 Days Qty: 60 0RF potassium chloride 20 mEq packet 20 meq PO DAILY 7 Days Qty: 30 0RF cefuroxime axetil 500 mg tablet 500 mg PO BID 7 Days Qty: 14 0RF
[2023-11-22 22:39] VITALS: BP 156/80; BP 162/65; PULSE 62; PULSE 88; RESP 20; TEMP 36.3; O2SAT 96; O2SAT 98; BMI 27.5
--- NOTE | 2023-11-22 22:42 | PC.NURSE ---
pt changed over to hospital attire, bed side monitor applied, poc taken, reading is HIgh, provider aware, labs collected and sent. Notified SUE Murphy.
[2023-11-22] MEDS: 0.9 % Sodium Chloride 1,000 ML 999 ML IV (22:45)
[2023-11-22 23:01] LABS: MANUAL DIFF FLAG NO
[2023-11-22 23:05] LABS: Venous Blood Gas Refer to POC result
[2023-11-22 23:05] LABS: Basophils Percent Auto 0.2 % (0-2); Eosinophils Percent Auto 0.3 % (0-4); Hematocrit 42.8 % (42.0-52.0); Hemoglobin 15.5 g/dl (14.0-18.0); Imm Gran Abs Auto 0.02 X10*3/uL (0.00-0.03); Imm Gran Pct Auto 0.2 % (0.0-0.4); Lymphocytes Absolute Auto 2.4 X10*3/uL (1.2-4.9); Lymphocytes Percent Auto 26.9 % (20-40); Mean Corpuscular HGB Conc 36.2 g/dl (31.0-36.0); Mean Corpuscular Hemoglobin 30.7 pg (27.0-33.0); Mean Corpuscular Volume 84.8 fL (80.0-98.0); Mean Platelet Volume 10.6 fL (9.4-12.4); Monocytes Absolute Auto 0.7 X10*3/uL (0.1-1.2); Monocytes Percent Auto 7.9 % (2-11); Neutrophils Absolute Auto 5.7 x10*3/uL (2.0-8.3); Neutrophils Percent Auto 64.5 % (45-73); Platelet Count 153 X10*3/uL (160-400); Red Blood Count 5.05 X10*6/uL (4.60-5.80); Red Cell Distribution Width 12.3 % (11.0-16.0); White Blood Count 8.9 X10*3/uL (4.8-10.8)
[2023-11-22 23:07] LABS: VBG HCO3 23 mmol/L (22-26); VBG pCO2 39 mmHg; VBG pH 7.38 (7.32-7.43); VBG pO2 46 mmHg
[2023-11-22 23:23] LABS: B Type Natriuretic Peptide 124 pg/mL (<100)
[2023-11-22 23:24] LABS: Troponin-I High Sensitivity 16.9 ng/L (<3.5-35.0)
[2023-11-22 23:26] LABS: Glucose, Whole Blood > 600 mg/dL (60-115)
[2023-11-22 23:26] LABS: Appearance Urine Clear; Color Urine Yellow; Glucose Urine UA >=1000 mg/dL (Negative); Leukocyte Esterase Urine Negative (Negative); Nitrite Urine Negative (Negative); PH 5.5 (5.0-9.0); Specific Gravity - Urine >= 1.030 (1.005-1.025); UMIC TRIGGER UACC YES; Urine Blood Negative (Negative); Urine Ketones 15 mg/dL (Negative); Urine Protein Negative (Neg-Trace)
[2023-11-22 23:26] LABS: Glucose, Whole Blood > 600 mg/dL (60-115)
--- NOTE | 2023-11-22 23:31 | PC.NURSE ---
Assumed care of pt.
[2023-11-22 23:35] LABS: Bacteria Urine None Seen (None Seen); Hyaline Casts Urine 0-2 /LPF (0-2); RBC Urine 0-2 /HPF (0-2); Squamous Epithelial Cell Urine 0-2 /HPF (0-2); WBC Urine 0-5 /HPF (0-5)
[2023-11-22 23:42] LABS: Influenza A PCR NEGATIVE (Negative); Influenza B PCR NEGATIVE (Negative); Resp Syncy Virus RNA Qual PCR NEGATIVE (Negative); SARS COV2 PCR INHOUSE NEGATIVE (Negative)
[2023-11-22 23:54] LABS: Anion Gap 17 (12-20); Blood Urea Nitrogen 22 mg/dL (9-16); Calcium 9.7 mg/dL (8.4-10.2); Carbon Dioxide 23 mmol/L (22-29); Chloride 89 mmol/L (96-108); Creatinine Clr Calc Pharmacy 34.6; Estimated Glomerular Filt Rate 34; Potassium 4.9 mmol/L (3.3-5.1); Sodium 124 mmol/L (135-145)
[2023-11-22 23:56] LABS: Glucose Random 872 mg/dL (60-115)
[2023-11-23] VITALS (8 sets, daily range): BP systolic 91–166; BP diastolic 56–86; PULSE 56–78; RESP 12–19; TEMP 36.3–37.1; O2SAT 93–100; BMI 27.0
[2023-11-23] LABS: Glucose, Whole Blood > 600 mg/dL (60-115)
[2023-11-23] MEDS: Insulin Regular, Human 100 UNIT/ML 3 ML VIAL 10 UNIT IVPUSH (00:29)
[2023-11-23] MEDS: 0.9 % Sodium Chloride 1,000 ML 999 ML IV (00:31)
[2023-11-23 01:14] LABS: Glucose, Whole Blood 493 mg/dL (60-115)
[2023-11-23 01:56] LABS: Anion Gap 16 (12-20); Blood Urea Nitrogen 19 mg/dL (9-16); Calcium 9.2 mg/dL (8.4-10.2); Carbon Dioxide 23 mmol/L (22-29); Chloride 101 mmol/L (96-108); Estimated Glomerular Filt Rate 53; Glucose Random 400 mg/dL (60-115); Potassium 3.6 mmol/L (3.3-5.1); Sodium 136 mmol/L (135-145)
[2023-11-23] MEDS: Insulin Regular, Human 100 UNIT/ML 3 ML VIAL 9 UNIT IVPUSH (02:14)
[2023-11-23 02:30] LABS: Glucose, Whole Blood 382 mg/dL (60-115)
[2023-11-23] MEDS: Gabapentin 100 MG CAPSULE 200 MG PO (03:19)
[2023-11-23] MEDS: Insulin Glargine,Hum.rec.anlog 100 UNIT/ML 10 ML VIAL 12 UNIT SUBCUT (03:20)
[2023-11-23] MEDS: 0.9 % Sodium Chloride 1,000 ML 125 ML IVCONT ×2 (03:20→13:09)
[2023-11-23] MEDS: Insulin Lispro 100 UNIT/ML 3 ML VIAL 7 UNIT SUBCUT (03:20)
--- NOTE | 2023-11-23 03:24 | P.HPHOSP_ITS ---
History of Present Illness Date of Service: 11/23/23 Attending physician on admission: Rubén Dimas Chief Complaint: Elevated blood glucose Gadiel Arevalo is a 73 years old man with past medical history significant for essential hypertension and BPH presents to the emergency department after he was found to have severe hyperglycemia (700s) on routine blood workup. He stated that he has been feeling weak. He also report having increasing thirst, urinary frequency, nausea, abdominal discomfort and blurry vision. He also reported poor appetite. Denies weight loss, vomiting or diarrhea. He also denied fever or chills. Patient also reported unpleasant sensation that he has been experiencing 4 year. He told me that he feels like things are growing inside the skin of his face and legs. He seems frustrated as nobody has been able to help him with this. He denied alcohol abuse, tobacco smoking or illicit drug use. In the ED, he was found to have stable vital signs. Blood workup showed no leukocytosis. Hemoglobin is normal. Initial glucose was 872. The most recent the glucose is 382 after receiving treatment with fluids and insulin R. His creatinine was 1.93 while most recent 1 is 131. Anion gap is normal and there is no metabolic acidosis. Beta hydroxybutyrate is 3.0. Abdomen pelvis CT scan showed cholelithiasis and/or sludge within the gallbladder, chronic pancreatitis, diverticulosis without diverticulitis and nonobstructive left renal calculus. ED tx: NS 2 L bolus, insulin R 19 units (total). Review of Systems 2 Review of Systems: All 12 systems were reviewed and normal except as noted in HPI. [facility] Medical History CHF (congestive heart failure) Hemorrhagic stroke Cholelithiasis Alcohol use disorder HTN (hypertension) Surgical History No pertinent past surgical history Social History Household Members: None Housing: Apartment Do you presently have visiting nurse or other home services: No Alcohol intake: current Alcohol intake frequency: 0-2 drinks per day Alcohol type: hard liquor Comment: pt continues refusing bed alarm; chair alarm on pt in bed Patient Tobacco Use Status: Former Tobacco user Smoked in Last 30 Days: No Second Hand Smoke Exposure: No Use of substances other than those prescribed or required for medical reasons: No Advance Directives: Yes Advance Directives on File: Yes Advance Directives Date on File: 04/12/23 Nutrition Risks: Diabetes new onset/Uncontrolled service: No Current occupational status: disabled Meds Allergies Allergy/AdvReac Type Severity Reaction Status Date / Time meperidine [From DEMEROL] Allergy Unknown UNKNOWN Verified 04/11/23 17:08 Active Medications: Current Medications Acetaminophen (Acetaminophen 325 Mg Tablet) 650 mg PO Q6H PRN PRN Reason: Pain, Mild (Pain Scale 1-3) Dextrose (Dextrose 50 % 25 Gm/50 Ml Syringe) 25 gm IVPUSH Q15M PRN; Protocol PRN Reason: per Hypoglycemia Standing Ord. Glucose (Glucose Gel 15 Gm Gel..Gram.) 15 gm PO Q15M PRN; Protocol PRN Reason: per Hypoglycemia Standing Ord. Sodium Chloride (Ns) 1,000 mls @ 125 mls/hr IVCONT .Q8H [facility] Last Admin: 11/23/23 03:20 Dose: 125 mls/hr Insulin Glargine (Insulin Glargine,Hum.Rec.Anlog 100 Unit/Ml 10 Ml Vial) 12 unit SUBCUT DAILY [facility] Last Admin: 11/23/23 03:20 Dose: 12 unit Insulin Human Lispro (Insulin Lispro 100 Unit/Ml 3 Ml Vial) 0 unit SUBCUT QIDACHS [facility]; Protocol Lisinopril (Lisinopril 2.5 Mg Tablet) 2.5 mg PO DAILY [facility]; Protocol Magnesium Oxide (Magn[facility] 400 Mg Tablet) [facility] Metoprolol Tartrate (Metoprolol Tartrate 25 Mg Tablet) 25 mg PO BID [facility]; Protocol Ondansetron HCl (Ondansetron Hcl 4 Mg/2 Ml Vial) 4 mg IVPUSH Q8H PRN PRN Reason: Nausea and Vomiting Sodium Chloride (0.9 % Sodium Chloride Flush 3 Ml Syringe) 3 ml IVFLUSH QSHIFT [facility] Tamsulosin HCl (Tamsulosin Hcl 0.4 Mg Capsule) 0.4 mg PO BEDTIME [facility] Trazodone HCl (Trazodone Hcl 50 Mg Tablet) 50 mg PO BEDTIME [facility] Home Medications Medication Instructions Recorded Confirmed Last Taken Type lisinopril 2.5 mg tablet 2.5 mg PO DAILY 11/23/23 11/23/23 Unknown History trazodone 50 mg tablet 50 mg PO BEDTIME 11/23/23 11/23/23 Unknown History Physical Exam 2 Vital Signs and Narrative: Vital Signs: Last Vital Signs Temp 97.4 F 11/22/23 22:39 Pulse 62 11/22/23 22:39 Resp 20 11/22/23 22:39 BP 162/65 H 11/22/23 22:39 Pulse Ox 96 11/22/23 22:39 O2 Del Method Room Air 11/22/23 22:39 BMI result Body Mass Index 27.5 Constitutional - Awake and Alert, No apparent distress. Cooperative. Pleasant. Afebrile HEENT - Pupils equally round. Normal sclerae. Dry oral mucosa Heart - RRR, No murmur Lungs - Normal lung expansion, Normal respiratory effort, No respiratory distress, CTA bilaterally Gastrointestinal - NT / ND; +BS; No rebound or guarding Extremities - no calf tenderness bilaterally, no swelling Musculoskeletal - Normal inspection, normal ROM Skin - Warm/Dry Neurological - Alert & oriented x3. No acute focal weakness grossly noted. Normal speech. Psychological - Appropriate affect Results Labs 11/22/23 22:55 11/23/23 01:35 Labs: Laboratory Results - last 24 hr 11/22/23 11/22/23 11/22/23 22:27 22:34 22:55 MCV 84.8 MCH 30.7 MCHC 36.2 H RDW 12.3 Plt Count 153 L D MPV 10.6 Immature Gran % (Auto) 0.2 Neut % (Auto) 64.5 Lymph % (Auto) 26.9 [place] % (Auto) 7.9 Eos % (Auto) 0.3 Baso % (Auto) 0.2 Lymph # (Auto) 2.4 [place] # (Auto) 0.7 Eos # (Auto) 0.0 Baso # (Auto) 0.0 Abs Immat Gran (auto) 0.02 Absolute Neuts (auto) 5.7 Absolute Nucleated RBC 0.000 Nucleated RBC % (auto) 0.0 VBG pH VBG pCO2 VBG pO2 VBG HCO3 VBG O2 Saturation VBG Base Excess Anion Gap 17 Estim Creat Clear Calc 34.6 Estimated GFR 34 POC Glucose > 600 H* > 600 H* Random Glucose 872 H* Calcium 9.7 D Troponin I High Sens 16.9 B-Natriuretic Peptide 124 H Beta-Hydroxybutyrate 3.00 H Urine Color Urine Appearance Urine pH Ur Specific Brush Urine Protein Urine Glucose (UA) Urine Ketones Urine Blood Urine Nitrite Ur Leukocyte Esterase Urine RBC Urine WBC Ur Squamous Epith Cells Urine Bacteria Hyaline Casts Urine Yeast Influenza Type A (PCR) NEGATIVE Influenza Type B (PCR) NEGATIVE RSV RNA Qual (PCR) NEGATIVE SARS-CoV-2 RNA (RT-PCR) NEGATIVE 11/22/23 11/22/23 11/22/23 22:59 23:20 23:57 MCV MCH MCHC RDW Plt Count MPV Immature Gran % (Auto) Neut % (Auto) Lymph % (Auto) [place] % (Auto) Eos % (Auto) Baso % (Auto) Lymph # (Auto) [place] # (Auto) Eos # (Auto) Baso # (Auto) Abs Immat Gran (auto) Absolute Neuts (auto) Absolute Nucleated RBC Nucleated RBC % (auto) VBG pH 7.38 VBG pCO2 39 VBG pO2 46 VBG HCO3 23 VBG O2 Saturation 74.0 VBG Base Excess -1.0 Anion Gap Estim Creat Clear Calc Estimated GFR POC Glucose > 600 H* Random Glucose Calcium Troponin I High Sens B-Natriuretic Peptide Beta-Hydroxybutyrate Urine Color Yellow Urine Appearance Clear Urine pH 5.5 Ur Specific Brush >= 1.030 H Urine Protein Negative Urine Glucose (UA) >=1000 H Urine Ketones 15 Urine Blood Negative Urine Nitrite Negative Ur Leukocyte Esterase Negative Urine RBC 0-2 Urine WBC 0-5 Ur Squamous Epith Cells 0-2 Urine Bacteria None Seen Hyaline Casts 0-2 Urine Yeast Present Influenza Type A (PCR) Influenza Type B (PCR) RSV RNA Qual (PCR) SARS-CoV-2 RNA (RT-PCR) 11/23/23 11/23/23 11/23/23 01:10 01:35 02:26 MCV MCH MCHC RDW Plt Count MPV Immature Gran % (Auto) Neut % (Auto) Lymph % (Auto) [place] % (Auto) Eos % (Auto) Baso % (Auto) Lymph # (Auto) [place] # (Auto) Eos # (Auto) Baso # (Auto) Abs Immat Gran (auto) Absolute Neuts (auto) Absolute Nucleated RBC Nucleated RBC % (auto) VBG pH VBG pCO2 VBG pO2 VBG HCO3 VBG O2 Saturation VBG Base Excess Anion Gap 16 Estim Creat Clear Calc 51.0 Estimated GFR 53 POC Glucose 493 H* 382 H* Random Glucose 400 H* Calcium 9.2 Troponin I High Sens B-Natriuretic Peptide Beta-Hydroxybutyrate Urine Color Urine Appearance Urine pH Ur Specific Brush Urine Protein Urine Glucose (UA) Urine Ketones Urine Blood Urine Nitrite Ur Leukocyte Esterase Urine RBC Urine WBC Ur Squamous Epith Cells Urine Bacteria Hyaline Casts Urine Yeast Influenza Type A (PCR) Influenza Type B (PCR) RSV RNA Qual (PCR) SARS-CoV-2 RNA (RT-PCR) Imaging Radiologist's Impressions: Impressions Chest X-Ray 11/22/23 22:40 IMPRESSION: 1. Bilateral low lung volumes. 2. Accentuation of pulmonary vasculature. Abdomen/Pelvis CT 11/23/23 00:21 IMPRESSION: 1. Cholelithiasis and/or sludge within the gallbladder. 2. Chronic pancreatitis. 3. Diverticulosis without diverticulitis. 4. Nonobstructing left renal calculus. Fleischner guidelines were followed. Assessment and Plan (1) Acute hyperglycemia: Status: Acute (2) BPH loc w urin obs/LUTS: Status: Acute (3) HTN (hypertension): Qualifiers: Hypertension type: primary hypertension Qualified Code(s): I10 - Essential (primary) hypertension Status: Acute (4) Severe recurrent major depressive disorder with psychosis: Status: Acute Plan Gadiel Arevalo is a 73 years old man admitted with: * Marked hyperglycemia secondary to diabetes mellitus, new diagnosis. Admit to hospitalist service. Start treatment with Lantus 12 units subcut daily insulin sliding scale. Continue IV fluids. Check hemoglobin A1c. * Essential hypertension. Continue lisinopril and metoprolol. * BPH. Continue tamsulosin. * Cholelithiasis/sludge. To consider abdominal ultrasound if patient develops right upper quadrant pain. * Diverticulosis without diverticulitis. * BNP is slightly elevated. No symptoms of congestive heart failure. * Depression. Continue trazodone DVT prophylaxis: SCDs, ambulation Code status: Full Patient will need hospitalization for at least 2 midnights for hyperglycemia control with Lantus and insulin sliding scale. Patient will need close monitoring of blood glucose. Quality Stroke Does the patient have a stroke diagnosis?: No VTE Prior VTE?: No VTE Risk Level:: Medical - moderate - high VTE Device Contraindication: Treatment Not Tolerated VTE Drug Contraindication: Treatment Not Tolerated
[2023-11-23 03:47] LABS: Glucose, Whole Blood 253 mg/dL (60-115)
[2023-11-23 04:34] LABS: Glucose, Whole Blood 222 mg/dL (60-115)
[2023-11-23 05:43] LABS: Glucose, Whole Blood 189 mg/dL (60-115)
[2023-11-23 06:37] LABS: Glucose, Whole Blood 170 mg/dL (60-115)
[2023-11-23] MEDS: Insulin Lispro 100 UNIT/ML 3 ML VIAL SUBCUT ×4 (06:58→20:56)
[2023-11-23 07:08] LABS: Estimated Average Glucose 346 mg/dL; Hemoglobin A1c % 13.7 % (<6.0)
--- NOTE | 2023-11-23 07:11 | PHA.MEDREC ---
Pharmacy Consult ? Medication Reconciliation Pharmacy has reviewed the medication reconciliation done by hospitalist. Metoprolol was incorrect, confirmed at 25 mg tartrate BID but patient is actually on XL 25 mg.
--- NOTE | 2023-11-23 07:12 | PM.EVENT ---
Event Note Date of Service: 11/24/23 Event Note: Patient seen examined in the ED Offers no acute complaints. Physical examination awake alert in no acute distress Neck no JVD Lungs clear to auscultation Heart regular rate rhythm Abdomen soft. skin no rash Gadiel Arevalo is a 73 years old man with past medical history of hypertension, hemorrhagic stroke, and alcohol use disorder presented to [facility] with symptoms of urinary frequency thirst, blurred vision nausea and was found to have elevated blood sugars and 700 range and diagnosed with new onset diabetes mellitus : Marked hyperglycemia secondary to diabetes mellitus, new diagnosis. Blood sugars improved less than 200 Continue diabetic diet, Lantus and insulin sliding scale Nutrition consult provide teaching spur monitoring blood sugars/provide teachings for hyper and hypoglycemia Hbaic 13.7, with average blood glucose 346 Acute pseudohyponatremia resolved Acute kidney injury resolved with IV fluids Essential hypertension. Continue lisinopril and metoprolol XL 50 mg daily. BPH. Continue tamsulosin. Cholelithiasis/sludge. Noted on prior imaging studies, asymptomatic will follow Depression. Continue trazodone History of heart failure with preserved EF, no acute exacerbation noted Alcohol use disorder denies current use of alcohol. DVT prophylaxis: SCDs, ambulation Code status: Full Patient will need hospitalization for at least 2 midnights for hyperglycemia control with Lantus and insulin sliding scale. Patient will need close monitoring of blood glucose. Time Spent With Patient Time: Total time managing care of this patient today ____ minutes.
[2023-11-23 07:32] LABS: Glucose, Whole Blood 144 mg/dL (60-115)
--- NOTE | 2023-11-23 09:07 | PC.NURSE ---
PT IS A/O X 4 NO SOB/HONG NOTED SPEAKS IN FULL SENTENCES, DENIES ANY PAIN/DISC AT THIS TIME. WILL CONTINUE TO MONITOR.
[2023-11-23 09:14] LABS: Glucose, Whole Blood 327 mg/dL (60-115)
--- NOTE | 2023-11-23 09:19 | PC.NURSE ---
PT PULLED HIS # 20 IV FROM HIS R AC OUT. A NEW HEPLOCK # 20 PLACED TO L AC AND WRAPPED WITH C/D/D.
[2023-11-23] MEDS: Magnesium Oxide 400 MG TABLET PO ×2 (09:20→16:56)
[2023-11-23] MEDS: Metoprolol Succinate ER 50 MG TAB.ER.24H PO (09:20)
[2023-11-23] MEDS: lisinopriL 2.5 MG TABLET PO (09:20)
[2023-11-23] MEDS: 0.9 % Sodium Chloride Flush 3 ML SYRINGE IVFLUSH ×3 (09:21→20:56)
[2023-11-23 10:41] LABS: Glucose, Whole Blood 366 mg/dL (60-115)
[2023-11-23 11:28] LABS: Beta-Hydroxybutyrate 0.71 mmol/L (0.02-0.27)
[2023-11-23 11:31] LABS: Alanine Aminotransferase 16 U/L (0-40); Albumin Level 3.3 g/dL (3.5-5.0); Alkaline Phosphatase 84 U/L (39-117); Anion Gap 12 (12-20); Aspartate Amino Transferase 31 U/L (5-37); Bilirubin Total 0.8 mg/dL (0.0-1.0); Blood Urea Nitrogen 15 mg/dL (9-16); Calcium 8.7 mg/dL (8.4-10.2); Carbon Dioxide 25 mmol/L (22-29); Chloride 100 mmol/L (96-108); Creatinine Clr Calc Pharmacy 66.2; Estimated Glomerular Filt Rate > 60; Magnesium 2.1 mg/dL (1.6-2.6); Potassium 4.1 mmol/L (3.3-5.1); Sodium 133 mmol/L (135-145); Total Protein 6.3 g/dL (6.5-8.0)
[2023-11-23 11:34] LABS: Glucose Random 409 mg/dL (60-115)
--- NOTE | 2023-11-23 11:48 | PC.NURSE ---
UNABLE TO DRAW 2ND SET OF BLOOD CULTURE DUE TO PT BEING CONFUSED AND REFUSING TO HAVE LAB WORK DONE AT THIS TIME EVEN WITH ENCOURAGEMENT FROM HER GRAND-DAUGHTER (ELVIN). AWARE.
[2023-11-23 12:11] LABS: Glucose, Whole Blood 342 mg/dL (60-115)
--- NOTE | 2023-11-23 15:22 | PC.NURSE ---
Assumed care of patient at 1445, patient is resting on stretcher in room, appears to be in no apparent distress, offers no complaints to this RN. Pt is aware of plan of care to go upstairs. Mar, RN day nurse gave report and we are awaiting transport. NS discontinued per NOV. Pt ate 100% of lunch
[2023-11-23 16:47] LABS: Glucose, Whole Blood 352 mg/dL (60-115)
[2023-11-23 20:08] LABS: Glucose, Whole Blood 270 mg/dL (60-115)
[2023-11-23] MEDS: Tamsulosin HCL 0.4 MG CAPSULE PO (20:56)
[2023-11-23] MEDS: traZODone HCL 50 MG TABLET PO (20:56)
[2023-11-24 03:39] VITALS: BP 131/73; PULSE 67; RESP 18; TEMP 36.3; O2SAT 97
--- NOTE | 2023-11-24 06:35 | MHC.PIE ---
p; pt found screaming in room. when asked, pt reports he is screaming because he is frustrate that no one looked at his skin when he wants them to look at it. note; this is the first time pt complained about his skin this entire 12 hr shift. note; pt skin on scalp, back, neck, chest, arm pit or abd shows no redness or rash at this time. pt then started complaining that there are things under skin as pt started pulling and twisting his wrinkles. i; notified, pt reassured well be seen this morning e; pt much calmer, no longer pulling at his wrinkles will cont to monitor
[2023-11-24 07:39] LABS: Glucose, Whole Blood 224 mg/dL (60-115)
[2023-11-24 07:43] VITALS: BP 140/65; PULSE 70; RESP 17; TEMP 36.4; O2SAT 95
[2023-11-24] MEDS: lisinopriL 2.5 MG TABLET PO (08:53)
[2023-11-24] MEDS: Magnesium Oxide 400 MG TABLET PO ×2 (08:53→17:06)
[2023-11-24] MEDS: Metoprolol Succinate ER 50 MG TAB.ER.24H PO (08:53)
[2023-11-24] MEDS: Insulin Glargine,Hum.rec.anlog 100 UNIT/ML 10 ML VIAL 8 UNIT SUBCUT (08:54)
[2023-11-24] MEDS: Insulin Lispro 100 UNIT/ML 3 ML VIAL SUBCUT ×4 (08:54→21:18)
[2023-11-24] MEDS: Insulin Glargine,Hum.rec.anlog 100 UNIT/ML 10 ML VIAL 12 UNIT SUBCUT (08:55)
[2023-11-24] MEDS: 0.9 % Sodium Chloride Flush 3 ML SYRINGE IVFLUSH ×3 (08:56→21:18)
--- NOTE | 2023-11-24 09:11 | MHC.CM.PN ---
pt lives alone is independent had no servies will arrange own transport home
[2023-11-24 11:25] LABS: Glucose, Whole Blood 307 mg/dL (60-115)
[2023-11-24 15:46] VITALS: BP 139/68; PULSE 65; RESP 16; TEMP 36.6; O2SAT 96
--- NOTE | 2023-11-24 15:47 | P.PNIM_ITS ---
Subjective Subjective Date of Service: 11/25/23 Interval History: Complaining of rash all over his body, feels he has palpable lesions on scalp, denies headache, no fever, no chills, no URI symptoms, lives alone, does not cook get food from food bank and his friend helps him. Review of Systems All other symptoms reviewed and negative Physical Exam 2 Vital Signs: Vital Signs: Last Vital Signs Temp 97.6 F 11/24/23 07:43 Pulse 70 11/24/23 07:43 Resp 17 11/24/23 07:43 BP 140/65 H 11/24/23 07:43 Pulse Ox 95 11/24/23 07:43 O2 Del Method Room Air 11/24/23 07:43 BMI result Body Mass Index 27.0 Const: Other: General awake alert, resting comfortably in no acute distress. Scalp no lesions Neck supple no JVD. CVS regular rate rhythm, Respiratory lungs clear to auscultation, no respiratory distress, no wheeze, no rhonchi. Gastrointestinal abdomen soft, non tender, bowel sounds audible,no guarding , no rigidity. Extremities no edema. Neuro non focal,moving all 4 extremity ,speech clear. Skin no rash Objective Data Active Medications Acetaminophen (Acetaminophen 325 Mg Tablet) 650 mg PO Q6H PRN PRN Reason: Pain, Mild (Pain Scale 1-3) Dextrose (Dextrose 50 % 25 Gm/50 Ml Syringe) 25 gm IVPUSH Q15M PRN; Protocol PRN Reason: per Hypoglycemia Standing Ord. Glucose (Glucose Gel 15 Gm Gel..Gram.) 15 gm PO Q15M PRN; Protocol PRN Reason: per Hypoglycemia Standing Ord. Insulin Glargine (Insulin Glargine,Hum.Rec.Anlog 100 Unit/Ml 10 Ml Vial) 12 unit SUBCUT DAILY [facility] Last Admin: 11/24/23 08:55 Dose: 12 unit Documented By: ANIYA Insulin Human Lispro (Insulin Lispro 100 Unit/Ml 3 Ml Vial) 0 unit SUBCUT QIDACHS [facility]; Protocol Last Admin: 11/24/23 11:51 Dose: 12 unit Documented By: ANIYA Lisinopril (Lisinopril 2.5 Mg Tablet) 2.5 mg PO DAILY [facility]; Protocol Last Admin: 11/24/23 08:53 Dose: 2.5 mg Documented By: ANIYA Magnesium Oxide (Magnesium Oxide 400 Mg Tablet) 400 mg PO BIDPC [facility] Last Admin: 11/24/23 08:53 Dose: 400 mg Documented By: ANIYA Metformin HCl (Metformin Hcl 500 Mg Tablet) 500 mg PO BIDWM [facility] Metoprolol Succinate (Metoprolol Succinate Er 50 Mg Tab.Er.24h) 50 mg PO DAILY [facility]; Protocol Last Admin: 11/24/23 08:53 Dose: 50 mg Documented By: ANIYA Ondansetron HCl (Ondansetron Hcl 4 Mg/2 Ml Vial) 4 mg IVPUSH Q8H PRN PRN Reason: Nausea and Vomiting Sodium Chloride (0.9 % Sodium Chloride Flush 3 Ml Syringe) 3 ml IVFLUSH QSHIFT [facility] Last Admin: 11/24/23 08:56 Dose: 3 ml Documented By: ANIYA Tamsulosin HCl (Tamsulosin Hcl 0.4 Mg Capsule) 0.4 mg PO BEDTIME [facility] Last Admin: 11/23/23 20:56 Dose: 0.4 mg Documented By: MARIN Trazodone HCl (Trazodone Hcl 50 Mg Tablet) 50 mg PO BEDTIME [facility] Last Admin: 11/23/23 20:56 Dose: 50 mg Documented By: MARIN Labs 11/22/23 22:55 11/23/23 11:00 Labs: Laboratory Results - last 24 hr 11/23/23 11/23/23 11/24/23 16:38 19:55 07:19 POC Glucose 352 H* 270 H 224 H 11/24/23 11:08 POC Glucose 307 H Assessment and Plan (1) Acute hyperglycemia: Status: Acute (2) HTN (hypertension): Status: Acute Plan Gadiel Arevalo is a 73 years old man with past medical history of hypertension, hemorrhagic stroke, and alcohol use disorder presented to [facility] with symptoms of urinary frequency thirst, blurred vision nausea and was found to have elevated blood sugars and 700 range and diagnosed with new onset diabetes mellitus : New onset diabetes mellitus with hyperglycemia Blood sugars improved but remains between 200-300 Continue diabetic diet, insulin sliding scale, dose of Lantus increased to 20 units at a.m. Will add glipizide and Glucophage 500 b.i.d. Nutrition consult, provide teaching for monitoring blood sugars and administer insulin/provide teachings for hyper and hypoglycemia, patient is scared of needles but willing to try Hbaic 13.7, with average blood glucose 346 No rash noted, will place on Atarax that will help in anxiety and itching. Persistent mild blurred vision due to high blood sugars recommend outpatient ophthalmology follow-up and will control blood sugars. Acute pseudohyponatremia stable NA 133 Acute kidney injury prerenal, resolved with IV fluids. Essential hypertension. Continue lisinopril and metoprolol XL 50 mg daily. BPH. Continue tamsulosin. Cholelithiasis/sludge. Noted on prior imaging studies, asymptomatic will follow. Depression. Continue trazodone. History of heart failure with preserved EF, no acute exacerbation noted. Alcohol use disorder denies current use of alcohol. No withdrawal symptoms. DVT prophylaxis: SCDs, ambulation Code status: Full Patient will need continued inpatient hospitalization for new onset diabetes mellitus/requiring teachings to administer insulin which is difficult with underlying blurred vision and fear of needles. Quality Stroke Does the patient have a stroke diagnosis?: No VTE Prior VTE?: No VTE Risk Level:: Medical - moderate - high VTE Device Contraindication: Treatment Not Tolerated VTE Drug Contraindication: Treatment Not Tolerated
[2023-11-24 16:21] LABS: Glucose, Whole Blood 284 mg/dL (60-115)
[2023-11-24] MEDS: metFORMIN HCl 500 MG TABLET PO (17:06)
[2023-11-24] MEDS: glipiZIDE 5 MG TABLET PO (17:06)
[2023-11-24] MEDS: hydrOXYzine HCL 25 MG TABLET PO (17:11)
[2023-11-24 20:00] VITALS: BP 156/89; PULSE 64; RESP 18; TEMP 37.1; O2SAT 95
[2023-11-24 20:32] LABS: Glucose, Whole Blood 189 mg/dL (60-115)
[2023-11-24] MEDS: Tamsulosin HCL 0.4 MG CAPSULE PO (21:18)
[2023-11-24] MEDS: traZODone HCL 50 MG TABLET PO (21:18)
[2023-11-25 04:00] VITALS: BP 120/59; PULSE 59; RESP 16; TEMP 37; O2SAT 95
[2023-11-25 07:31] VITALS: BP 135/72; PULSE 70; RESP 18; TEMP 37.2; O2SAT 95
[2023-11-25 07:33] LABS: Glucose, Whole Blood 268 mg/dL (60-115)
[2023-11-25] MEDS: Magnesium Oxide 400 MG TABLET PO ×2 (08:11→17:46)
[2023-11-25] MEDS: Metoprolol Succinate ER 50 MG TAB.ER.24H PO (08:11)
[2023-11-25] MEDS: metFORMIN HCl 500 MG TABLET PO ×2 (08:11→17:46)
[2023-11-25] MEDS: glipiZIDE 5 MG TABLET PO (08:11)
[2023-11-25] MEDS: lisinopriL 2.5 MG TABLET PO (08:11)
[2023-11-25] MEDS: 0.9 % Sodium Chloride Flush 3 ML SYRINGE IVFLUSH ×3 (08:12→21:01)
[2023-11-25] MEDS: Insulin Lispro 100 UNIT/ML 3 ML VIAL SUBCUT ×3 (08:12→21:00)
[2023-11-25] MEDS: Insulin Glargine,Hum.rec.anlog 100 UNIT/ML 10 ML VIAL 25 UNIT SUBCUT (08:18)
[2023-11-25] MEDS: hydrOXYzine HCL 25 MG TABLET PO ×2 (08:18→17:46)
[2023-11-25 11:09] LABS: Glucose, Whole Blood 333 mg/dL (60-115)
--- NOTE | 2023-11-25 12:10 | P.PNIM_ITS ---
Subjective Subjective Date of Service: 11/25/23 Interval History: Being followed for new onset diabetes mellitus Complaining of persistent blurred vision, no nausea no vomiting no abdominal pain, no acute issues overnight, patient unable to read numbers on insulin syringe. Review of Systems All other system reviewed and negative. Physical Exam 2 Vital Signs: Vital Signs: Last Vital Signs Temp 98.9 F 11/25/23 07:31 Pulse 70 11/25/23 07:31 Resp 18 11/25/23 07:31 BP 135/72 11/25/23 07:31 Pulse Ox 95 11/25/23 07:31 O2 Del Method Room Air 11/25/23 07:31 BMI result Body Mass Index 27.0 Const: Other: General awake alert, resting comfortably in no acute distress. Neck supple no JVD. CVS regular rate rhythm, Respiratory lungs clear to auscultation, no respiratory distress, no wheeze, no rhonchi. Gastrointestinal abdomen soft, non tender, bowel sounds audible,no guarding , no rigidity. Extremities no edema. Neuro non focal,moving all 4 extremity ,speech clear. Skin no rash Objective Data Active Medications Acetaminophen (Acetaminophen 325 Mg Tablet) 650 mg PO Q6H PRN PRN Reason: Pain, Mild (Pain Scale 1-3) Dextrose (Dextrose 50 % 25 Gm/50 Ml Syringe) 25 gm IVPUSH Q15M PRN; Protocol PRN Reason: per Hypoglycemia Standing Ord. Glipizide (Glipizide 5 Mg Tablet) 5 mg PO BIDWM [facility] Last Admin: 11/25/23 08:11 Dose: 5 mg Documented By: ANIYA Glucose (Glucose Gel 15 Gm Gel..Gram.) 15 gm PO Q15M PRN; Protocol PRN Reason: per Hypoglycemia Standing Ord. Hydroxyzine HCl (Hydroxyzine Hcl 25 Mg Tablet) 25 mg PO Q8H PRN PRN Reason: itching Last Admin: 11/25/23 08:18 Dose: 25 mg Documented By: ANIYA Insulin Glargine (Insulin Glargine,Hum.Rec.Anlog 100 Unit/Ml 10 Ml Vial) 25 unit SUBCUT DAILY [facility] Last Admin: 11/25/23 08:18 Dose: 25 unit Documented By: ANIYA Insulin Human Lispro (Insulin Lispro 100 Unit/Ml 3 Ml Vial) 0 unit SUBCUT QIDACHS [facility]; Protocol Last Admin: 11/25/23 11:32 Dose: 12 unit Documented By: ANIYA Lisinopril (Lisinopril 2.5 Mg Tablet) 2.5 mg PO DAILY [facility]; Protocol Last Admin: 11/25/23 08:11 Dose: 2.5 mg Documented By: ANIYA Magnesium Oxide (Magnesium Oxide 400 Mg Tablet) 400 mg PO BIDPC [facility] Last Admin: 11/25/23 08:11 Dose: 400 mg Documented By: ANIYA Metformin HCl (Metformin Hcl 500 Mg Tablet) 500 mg PO BIDWM [facility] Last Admin: 11/25/23 08:11 Dose: 500 mg Documented By: ANIYA Metoprolol Succinate (Metoprolol Succinate Er 50 Mg Tab.Er.24h) 50 mg PO DAILY [facility]; Protocol Last Admin: 11/25/23 08:11 Dose: 50 mg Documented By: ANIYA Ondansetron HCl (Ondansetron Hcl 4 Mg/2 Ml Vial) 4 mg IVPUSH Q8H PRN PRN Reason: Nausea and Vomiting Sodium Chloride (0.9 % Sodium Chloride Flush 3 Ml Syringe) 3 ml IVFLUSH QSHIFT [facility] Last Admin: 11/25/23 08:12 Dose: 3 ml Documented By: ANIYA Tamsulosin HCl (Tamsulosin Hcl 0.4 Mg Capsule) 0.4 mg PO BEDTIME [facility] Last Admin: 11/24/23 21:18 Dose: 0.4 mg Documented By: MARIN Trazodone HCl (Trazodone Hcl 50 Mg Tablet) 50 mg PO BEDTIME [facility] Last Admin: 11/24/23 21:18 Dose: 50 mg Documented By: MARIN Labs 11/22/23 22:55 11/23/23 11:00 Labs: Laboratory Results - last 24 hr 11/24/23 11/24/23 11/25/23 16:13 20:17 07:30 POC Glucose 284 H 189 H 268 H 11/25/23 11:02 POC Glucose 333 H Assessment and Plan (1) Acute hyperglycemia: Status: Acute (2) HTN (hypertension): Status: Acute Plan Gadiel Arevalo is a 73 years old man with past medical history of hypertension, hemorrhagic stroke, and alcohol use disorder presented to [facility] with symptoms of urinary frequency thirst, blurred vision nausea and was found to have elevated blood sugars and 700 range and diagnosed with new onset diabetes mellitus : New onset diabetes mellitus with hyperglycemia Blood sugars improved but remains elevated between 200-300 on diabetic diet, insulin sliding scale, dose of Lantus increased to 25 units at a.m. Added glipizide 10mg bid and Glucophage 500 b.i.d. will gradually increase to 1000 b.i.d. Nutrition consult, patient unable to read numbers on the insulin syringe, due to persistent blurred vision, and is scared of needles will be difficult for him to administer insulin Hbaic 13.7, with average blood glucose 346 Will need outpatient ophthalmology and podiatry follow-up Will discuss with social worker health services regarding safe disposition question daily VNA for medication administration versus rehab. Acute pseudohyponatremia stable NA 133 Acute kidney injury prerenal, resolved with IV fluids. Essential hypertension. Stable BP Continue lisinopril and metoprolol XL 50 mg daily. BPH. Continue tamsulosin. Cholelithiasis/sludge. Noted on prior imaging studies, asymptomatic will follow. Depression. Continue trazodone. History of heart failure with preserved EF, no acute exacerbation noted. Alcohol use disorder denies current use of alcohol. No withdrawal symptoms, continue Atarax prn for itching and mild anxiety. DVT prophylaxis: SCDs, ambulation Code status: Full Patient will need continued inpatient hospitalization for new onset diabetes mellitus/requiring teachings to administer insulin which is difficult with underlying blurred vision and fear of needles and safe disposition. Quality Stroke Does the patient have a stroke diagnosis?: No VTE Prior VTE?: No VTE Risk Level:: Medical - moderate - high VTE Device Contraindication: Treatment Not Tolerated VTE Drug Contraindication: Treatment Not Tolerated
--- NOTE | 2023-11-25 13:02 | PC.NURSE ---
Attempted to show pt how to draw up insulin but pt not able to see numbers or lines on the insulin syringes. States his vision is blurry Dr Hicks aware
[2023-11-25 15:13] VITALS: BP 120/62; PULSE 75; RESP 18; TEMP 37; O2SAT 96
[2023-11-25 16:33] LABS: Glucose, Whole Blood 96 mg/dL (60-115)
[2023-11-25 17:44] LABS: Glucose, Whole Blood 190 mg/dL (60-115)
[2023-11-25] MEDS: Acetaminophen 325 MG TABLET 650 MG PO (17:46)
[2023-11-25] MEDS: glipiZIDE 10 MG TABLET PO (17:46)
[2023-11-25 19:37] VITALS: BP 134/74; PULSE 65; RESP 18; TEMP 36.7; O2SAT 93
[2023-11-25 20:03] LABS: Glucose, Whole Blood 222 mg/dL (60-115)
[2023-11-25] MEDS: Tamsulosin HCL 0.4 MG CAPSULE PO (21:00)
[2023-11-25] MEDS: traZODone HCL 50 MG TABLET PO (21:00)
[2023-11-26 04:00] VITALS: BP 138/72; PULSE 73; RESP 16; TEMP 36.4; O2SAT 97
[2023-11-26] MEDS: hydrOXYzine HCL 25 MG TABLET PO ×2 (04:13→21:24)
[2023-11-26] MEDS: Acetaminophen 325 MG TABLET 650 MG PO ×3 (04:13→21:24)
[2023-11-26 07:27] LABS: Glucose, Whole Blood 144 mg/dL (60-115)
[2023-11-26 07:31] VITALS: BP 153/81; PULSE 57; RESP 16; TEMP 36.6; O2SAT 97
[2023-11-26] MEDS: Metoprolol Succinate ER 50 MG TAB.ER.24H PO (08:42)
[2023-11-26] MEDS: metFORMIN HCl 500 MG TABLET PO ×2 (08:42→16:54)
[2023-11-26] MEDS: Insulin Glargine,Hum.rec.anlog 100 UNIT/ML 10 ML VIAL 25 UNIT SUBCUT (08:42)
[2023-11-26] MEDS: Magnesium Oxide 400 MG TABLET PO ×2 (08:42→16:54)
[2023-11-26] MEDS: glipiZIDE 10 MG TABLET PO ×2 (08:42→16:54)
[2023-11-26] MEDS: lisinopriL 2.5 MG TABLET PO (08:42)
[2023-11-26] MEDS: 0.9 % Sodium Chloride Flush 3 ML SYRINGE IVFLUSH ×3 (08:43→21:15)
[2023-11-26 11:48] LABS: Glucose, Whole Blood 259 mg/dL (60-115)
[2023-11-26] MEDS: Insulin Lispro 100 UNIT/ML 3 ML VIAL SUBCUT ×2 (11:57→16:54)
--- NOTE | 2023-11-26 13:29 | HO.PM.IMPN ---
Subjective Subjective Date of Service: 11/26/23 Interval History: No acute issues overnight Being followed for new onset diabetes mellitus with hyperglycemia Patient complaining of matted hair, infestation or infection of skin, and hair follicles, complaining of multiple pain points on shoulders, scalp symptoms going on for years. Denies nausea, no vomiting, no abdominal pain tolerating diet. Review of Systems All other system reviewed and negative Physical Exam Vital Signs: Vital Signs: Last Vital Signs Temp 97.8 F 11/26/23 07:31 Pulse 57 11/26/23 07:31 Resp 16 11/26/23 07:31 BP 153/81 H 11/26/23 07:31 Pulse Ox 97 11/26/23 07:31 O2 Del Method Room Air 11/26/23 07:31 BMI result Body Mass Index 27.0 Const: Other: General awake alert, resting comfortably in no acute distress. Neck supple no JVD. CVS regular rate rhythm, Respiratory lungs clear to auscultation, no respiratory distress, no wheeze, no rhonchi. Gastrointestinal abdomen soft, non tender, bowel sounds audible,no guarding , no rigidity. Extremities no edema. Neuro non focal,moving all 4 extremity ,speech clear. Skin no rash, hypopigmented spots neck and upper back Psych delusional Objective Data Active Medications Acetaminophen (Acetaminophen 325 Mg Tablet) 650 mg PO Q6H PRN PRN Reason: Pain, Mild (Pain Scale 1-3) Last Admin: 11/26/23 10:57 Dose: 650 mg Documented By: GRADY Dextrose (Dextrose 50 % 25 Gm/50 Ml Syringe) 25 gm IVPUSH Q15M PRN; Protocol PRN Reason: per Hypoglycemia Standing Ord. Glipizide (Glipizide 10 Mg Tablet) 10 mg PO BIDWM [facility] Last Admin: 11/26/23 08:42 Dose: 10 mg Documented By: GRADY Glucose (Glucose Gel 15 Gm Gel..Gram.) 15 gm PO Q15M PRN; Protocol PRN Reason: per Hypoglycemia Standing Ord. Hydroxyzine HCl (Hydroxyzine Hcl 25 Mg Tablet) 25 mg PO Q8H PRN PRN Reason: itching Last Admin: 11/26/23 04:13 Dose: 25 mg Documented By: MARIN Insulin Glargine (Insulin Glargine,Hum.Rec.Anlog 100 Unit/Ml 10 Ml Vial) 25 unit SUBCUT DAILY [facility] Last Admin: 11/26/23 08:42 Dose: 25 unit Documented By: GRADY Insulin Human Lispro (Insulin Lispro 100 Unit/Ml 3 Ml Vial) 0 unit SUBCUT QIDACHS [facility]; Protocol Last Admin: 11/26/23 11:57 Dose: 10 unit Documented By: GRADY Lisinopril (Lisinopril 2.5 Mg Tablet) 2.5 mg PO DAILY [facility]; Protocol Last Admin: 11/26/23 08:42 Dose: 2.5 mg Documented By: GRADY Magnesium Oxide (Magnesium Oxide 400 Mg Tablet) 400 mg PO BIDPC [facility] Last Admin: 11/26/23 08:42 Dose: 400 mg Documented By: GRADY Metformin HCl (Metformin Hcl 500 Mg Tablet) 500 mg PO BIDWM [facility] Last Admin: 11/26/23 08:42 Dose: 500 mg Documented By: GRADY Metoprolol Succinate (Metoprolol Succinate Er 50 Mg Tab.Er.24h) 50 mg PO DAILY [facility]; Protocol Last Admin: 11/26/23 08:42 Dose: 50 mg Documented By: GRADY Ondansetron HCl (Ondansetron Hcl 4 Mg/2 Ml Vial) 4 mg IVPUSH Q8H PRN PRN Reason: Nausea and Vomiting Sodium Chloride (0.9 % Sodium Chloride Flush 3 Ml Syringe) 3 ml IVFLUSH QSHIFT [facility] Last Admin: 11/26/23 08:43 Dose: 3 ml Documented By: GRADY Tamsulosin HCl (Tamsulosin Hcl 0.4 Mg Capsule) 0.4 mg PO BEDTIME [facility] Last Admin: 11/25/23 21:00 Dose: 0.4 mg Documented By: MARIN Trazodone HCl (Trazodone Hcl 50 Mg Tablet) 50 mg PO BEDTIME [facility] Last Admin: 11/25/23 21:00 Dose: 50 mg Documented By: MARIN Labs 11/22/23 22:55 11/23/23 11:00 Labs: Laboratory Results - last 24 hr 11/25/23 11/25/23 11/25/23 16:15 17:40 19:36 POC Glucose 96 190 H 222 H 11/26/23 11/26/23 07:13 11:41 POC Glucose 144 H 259 H Assessment and Plan (1) Acute hyperglycemia: Status: Acute (2) HTN (hypertension): Status: Acute Plan Gadiel Arevalo is a 73 years old man with past medical history of hypertension, hemorrhagic stroke, and alcohol use disorder presented to [facility] with symptoms of urinary frequency thirst, blurred vision nausea and was found to have elevated blood sugars and 700 range and diagnosed with new onset diabetes mellitus : New onset diabetes mellitus with hyperglycemia Blood sugars improved but still few blood sugar readings in mid 200 on diabetic diet, insulin sliding scale, dose of Lantus increased to 25 units at a.m.,Added glipizide 10mg bid and Glucophage 500 b.i.d. will gradually increase to 1000 b.i.d. in next 3-5 days Nutrition consult obtained, patient unable to read numbers on the insulin syringe, due to persistent blurred vision, and is scared of needles will be difficult for him to administer insulin Hbaic 13.7, with average blood glucose 346 Will need outpatient ophthalmology and podiatry follow-up Will discuss with director of social work regarding safe disposition question daily VNA for medication administration versus rehab. Acute pseudohyponatremia stable NA 133 Acute kidney injury prerenal, resolved with IV fluids. Essential hypertension. Stable BP Continue lisinopril and metoprolol XL 50 mg daily. BPH. Continue tamsulosin. Cholelithiasis/sludge. Noted on prior imaging studies, asymptomatic will follow. Depression. Continue trazodone. History of heart failure with preserved EF, no acute exacerbation noted. Alcohol use disorder denies current use of alcohol. No withdrawal symptoms, continue Atarax prn for itching and mild anxiety. Noted to have delusional thought will obtain psyche consult /treat with IV thiamine 200 mg bid. DVT prophylaxis: SCDs, ambulation Code status: Full Patient will need continued inpatient hospitalization for new onset diabetes mellitus/requiring teachings to administer insulin which is difficult with underlying blurred vision and fear of needles and safe disposition. Quality Stroke Does the patient have a stroke diagnosis?: No VTE Prior VTE?: No VTE Risk Level:: Medical - moderate - high VTE Device Contraindication: Treatment Not Tolerated VTE Drug Contraindication: Treatment Not Tolerated
[2023-11-26] MEDS: Thiamine HCL 200 MG in 0.9 % Sodium Chloride 100 ML 204 MG IV (14:21)
[2023-11-26 15:18] VITALS: BP 130/88; PULSE 70; RESP 14; TEMP 36.5; O2SAT 96
[2023-11-26 16:09] LABS: Glucose, Whole Blood 202 mg/dL (60-115)
[2023-11-26 18:59] VITALS: BP 126/63; PULSE 64; RESP 17; TEMP 36.5; O2SAT 97
[2023-11-26 20:30] LABS: Glucose, Whole Blood 67 mg/dL (60-115)
[2023-11-26 20:41] LABS: Glucose, Whole Blood 64 mg/dL (60-115)
[2023-11-26] MEDS: traZODone HCL 50 MG TABLET PO (21:15)
[2023-11-26] MEDS: Tamsulosin HCL 0.4 MG CAPSULE PO (21:15)
[2023-11-26 21:23] LABS: Glucose, Whole Blood 150 mg/dL (60-115)
[2023-11-27] MEDS: Thiamine HCL 200 MG in 0.9 % Sodium Chloride 100 ML 204 MG IV (01:05)
[2023-11-27 03:05] VITALS: BP 140/63; PULSE 58; RESP 18; TEMP 36.2; O2SAT 98
[2023-11-27 07:26] VITALS: BP 148/81; PULSE 56; RESP 14; TEMP 36.4; O2SAT 98
[2023-11-27 07:39] LABS: Glucose, Whole Blood 231 mg/dL (60-115)
[2023-11-27] MEDS: 0.9 % Sodium Chloride Flush 3 ML SYRINGE IVFLUSH ×3 (07:40→19:55)
[2023-11-27] MEDS: metFORMIN HCl 500 MG TABLET PO (07:41)
[2023-11-27] MEDS: Metoprolol Succinate ER 50 MG TAB.ER.24H PO (07:41)
[2023-11-27] MEDS: Folic Acid 1 MG TABLET PO (07:41)
[2023-11-27] MEDS: Magnesium Oxide 400 MG TABLET PO ×2 (07:41→16:21)
[2023-11-27] MEDS: lisinopriL 2.5 MG TABLET PO ×2 (07:41→11:44)
[2023-11-27] MEDS: glipiZIDE 10 MG TABLET PO ×2 (07:41→16:21)
[2023-11-27] MEDS: Insulin Lispro 100 UNIT/ML 3 ML VIAL SUBCUT ×2 (07:42→11:35)
[2023-11-27] MEDS: Insulin Glargine,Hum.rec.anlog 100 UNIT/ML 10 ML VIAL 25 UNIT SUBCUT (07:42)
--- NOTE | 2023-11-27 09:56 | PC.NURSE ---
Pt education given about DM. Multiple hand outs given. Pt states he will read and ask questions if he has any.
[2023-11-27 11:10] LABS: Glucose, Whole Blood 166 mg/dL (60-115)
--- NOTE | 2023-11-27 11:27 | P.PNIM_ITS ---
Subjective Subjective Date of Service: 11/27/23 Interval History: No acute issues overnight. Continues to discuss skin infestation without apparent corresponding clinical signs. Mood depressed Review of Systems Denies chest pain Denies shortness of breath Denies nausea vomiting diarrhea Denies fever chills Physical Exam 2 Vital Signs: Vital Signs: Last Vital Signs Temp 97.5 F 11/27/23 07:26 Pulse 56 11/27/23 07:26 Resp 14 11/27/23 07:26 BP 148/81 H 11/27/23 07:26 Pulse Ox 98 11/27/23 07:26 O2 Del Method Room Air 11/27/23 07:26 BMI result Body Mass Index 27.0 Const: Other: Awake alert no acute distress Resp: Other: Clear to auscultation bilaterally no rales rhonchi or wheezes Cardio: Other: No S4; positive S1-S2; no S3 murmurs rubs or gallops GI: Other: Soft nontender nondistended normoactive bowel sounds Extrem: Other: No edema bilaterally Objective Data Active Medications Acetaminophen (Acetaminophen 325 Mg Tablet) 650 mg PO Q6H PRN PRN Reason: Pain, Mild (Pain Scale 1-3) Last Admin: 11/26/23 21:24 Dose: 650 mg Documented By: MELECIO Dextrose (Dextrose 50 % 25 Gm/50 Ml Syringe) 25 gm IVPUSH Q15M PRN; Protocol PRN Reason: per Hypoglycemia Standing Ord. Folic Acid (Folic Acid 1 Mg Tablet) 1 mg PO DAILY [facility] Last Admin: 11/27/23 07:41 Dose: 1 mg Documented By: RICARDO Glipizide (Glipizide 10 Mg Tablet) 10 mg PO BIDWM [facility] Last Admin: 11/27/23 07:41 Dose: 10 mg Documented By: RICARDO Glucose (Glucose Gel 15 Gm Gel..Gram.) 15 gm PO Q15M PRN; Protocol PRN Reason: per Hypoglycemia Standing Ord. Hydroxyzine HCl (Hydroxyzine Hcl 25 Mg Tablet) 25 mg PO Q8H PRN PRN Reason: itching Last Admin: 11/26/23 21:24 Dose: 25 mg Documented By: MELECIO Insulin Glargine (Insulin Glargine,Hum.Rec.Anlog 100 Unit/Ml 10 Ml Vial) 25 unit SUBCUT DAILY [facility] Last Admin: 11/27/23 07:42 Dose: 25 unit Documented By: RICARDO Insulin Human Lispro (Insulin Lispro 100 Unit/Ml 3 Ml Vial) 0 unit SUBCUT QIDACHS [facility]; Protocol Last Admin: 11/27/23 07:42 Dose: 6 unit Documented By: RICARDO Lisinopril (Lisinopril 2.5 Mg Tablet) 2.5 mg PO DAILY [facility]; Protocol Last Admin: 11/27/23 07:41 Dose: 2.5 mg Documented By: RICARDO Magnesium Oxide (Magnesium Oxide 400 Mg Tablet) 400 mg PO BIDPC [facility] Last Admin: 11/27/23 07:41 Dose: 400 mg Documented By: RICARDO Metformin HCl (Metformin Hcl 500 Mg Tablet) 500 mg PO BIDWM [facility] Last Admin: 11/27/23 07:41 Dose: 500 mg Documented By: RICARDO Metoprolol Succinate (Metoprolol Succinate Er 50 Mg Tab.Er.24h) 50 mg PO DAILY [facility]; Protocol Last Admin: 11/27/23 07:41 Dose: 50 mg Documented By: RICARDO Ondansetron HCl (Ondansetron Hcl 4 Mg/2 Ml Vial) 4 mg IVPUSH Q8H PRN PRN Reason: Nausea and Vomiting Sodium Chloride (0.9 % Sodium Chloride Flush 3 Ml Syringe) 3 ml IVFLUSH QSHIFT [facility] Last Admin: 11/27/23 07:40 Dose: 3 ml Documented By: RICARDO Tamsulosin HCl (Tamsulosin Hcl 0.4 Mg Capsule) 0.4 mg PO BEDTIME [facility] Last Admin: 11/26/23 21:15 Dose: 0.4 mg Documented By: MELECIO Thiamine HCl (Thiamine Hcl 100 Mg Tablet) 100 mg PO DAILY [facility] Trazodone HCl (Trazodone Hcl 50 Mg Tablet) 50 mg PO BEDTIME [facility] Last Admin: 11/26/23 21:15 Dose: 50 mg Documented By: MELECIO Labs 11/22/23 22:55 11/23/23 11:00 Labs: Laboratory Results - last 24 hr 11/26/23 11/26/23 11/26/23 11:41 15:55 20:12 POC Glucose 259 H 202 H 67 11/26/23 11/26/23 11/27/23 20:36 21:20 07:29 POC Glucose 64 150 H 231 H 11/27/23 10:58 POC Glucose 166 H Assessment and Plan (1) DMII (diabetes mellitus, type 2): Status: Acute (2) HTN (hypertension): Status: Acute Plan Gadiel Arevalo is a 73 years old man with past medical history of hypertension, hemorrhagic stroke, and alcohol use disorder presented to [facility] with symptoms of urinary frequency thirst, blurred vision nausea and was found to have elevated blood sugars and 700 range and diagnosed with new onset diabetes mellitus : 1.New onset diabetes mellitus with hyperglycemia -Blood sugars improved with therapies -given patient's inability to view syringe and needle phobia will optimize oral regimen at this time -increase metformin to a 1000 b.i.d.; add Farxiga -continue lispro correctional scale 2.Acute kidney injury -responded to volume -follow renals/divalents 3.Essential hypertension -renal function normalized with volume -increase lisinopril to 5 mg daily -follow clinically 4.Depression -with mild delusional thinking -consult psych SCDs, ambulation Full code Patient will need continued inpatient hospitalization for new onset diabetes mellitus/requiring teachings to administer insulin which is difficult with underlying blurred vision and fear of needles and safe disposition. Quality Stroke Does the patient have a stroke diagnosis?: No VTE Prior VTE?: No VTE Risk Level:: Medical - moderate - high VTE Device Contraindication: Treatment Not Tolerated VTE Drug Contraindication: Treatment Not Tolerated
[2023-11-27] MEDS: Empagliflozin 10 MG TABLET PO (11:44)
[2023-11-27 15:33] VITALS: BP 146/80; PULSE 64; RESP 17; TEMP 36.7; O2SAT 100
--- NOTE | 2023-11-27 16:02 | MHC.CM.PN ---
pt accepted [facility] folloing as well dc plan tbd
[2023-11-27 16:21] LABS: Glucose, Whole Blood 135 mg/dL (60-115)
[2023-11-27] MEDS: metFORMIN HCl 1,000 MG TABLET 1000 MG PO (16:21)
[2023-11-27] MEDS: hydrOXYzine HCL 25 MG TABLET PO (16:21)
[2023-11-27] MEDS: Acetaminophen 325 MG TABLET 650 MG PO (16:21)
[2023-11-27 19:33] VITALS: BP 149/67; PULSE 59; RESP 17; TEMP 36.9; O2SAT 97
[2023-11-27] MEDS: Tamsulosin HCL 0.4 MG CAPSULE PO (19:55)
[2023-11-27] MEDS: traZODone HCL 50 MG TABLET PO (19:55)
[2023-11-27 20:07] LABS: Glucose, Whole Blood 145 mg/dL (60-115)
[2023-11-28 03:39] VITALS: BP 120/57; PULSE 55; RESP 18; TEMP 36.3; O2SAT 97
[2023-11-28 05:57] LABS: MANUAL DIFF FLAG NO
[2023-11-28 06:03] LABS: Basophils Percent Auto 0.5 % (0-2); Eosinophils Absolute Auto 0.2 X10*3/uL (0.0-0.4); Eosinophils Percent Auto 2.7 % (0-4); Hematocrit 45.1 % (42.0-52.0); Hemoglobin 15.4 g/dl (14.0-18.0); Imm Gran Abs Auto 0.01 X10*3/uL (0.00-0.03); Imm Gran Pct Auto 0.1 % (0.0-0.4); Lymphocytes Percent Auto 41.2 % (20-40); Mean Corpuscular HGB Conc 34.1 g/dl (31.0-36.0); Mean Corpuscular Hemoglobin 30.6 pg (27.0-33.0); Mean Corpuscular Volume 89.7 fL (80.0-98.0); Mean Platelet Volume 10.3 fL (9.4-12.4); Monocytes Absolute Auto 0.7 X10*3/uL (0.1-1.2); Monocytes Percent Auto 9.4 % (2-11); Neutrophils Absolute Auto 3.4 x10*3/uL (2.0-8.3); Neutrophils Percent Auto 46.1 % (45-73); Platelet Count 158 X10*3/uL (160-400); Red Blood Count 5.03 X10*6/uL (4.60-5.80); Red Cell Distribution Width 12.7 % (11.0-16.0); White Blood Count 7.3 X10*3/uL (4.8-10.8)
[2023-11-28 06:29] LABS: Alanine Aminotransferase 16 U/L (0-40); Albumin Level 3.4 g/dL (3.5-5.0); Alkaline Phosphatase 70 U/L (39-117); Anion Gap 10 (12-20); Aspartate Amino Transferase 23 U/L (5-37); Bilirubin Total 0.5 mg/dL (0.0-1.0); Blood Urea Nitrogen 15 mg/dL (9-16); Calcium 9.9 mg/dL (8.4-10.2); Carbon Dioxide 29 mmol/L (22-29); Chloride 104 mmol/L (96-108); Creatinine Clr Calc Pharmacy 63.7; Estimated Glomerular Filt Rate > 60; Glucose Fasting 207 mg/dL (60-99); Potassium 4.3 mmol/L (3.3-5.1); Sodium 139 mmol/L (135-145); Total Protein 6.6 g/dL (6.5-8.0)
[2023-11-28 07:28] LABS: Glucose, Whole Blood 167 mg/dL (60-115)
[2023-11-28 08:00] VITALS: BP 141/80; PULSE 76; RESP 18; TEMP 36.5; O2SAT 98
[2023-11-28] MEDS: Insulin Lispro 100 UNIT/ML 3 ML VIAL SUBCUT ×2 (08:12→11:57)
[2023-11-28] MEDS: lisinopriL 5 MG TABLET PO (08:13)
[2023-11-28] MEDS: Magnesium Oxide 400 MG TABLET PO ×2 (08:13→16:56)
[2023-11-28] MEDS: Insulin Glargine,Hum.rec.anlog 100 UNIT/ML 10 ML VIAL 25 UNIT SUBCUT (08:13)
[2023-11-28] MEDS: glipiZIDE 10 MG TABLET PO ×2 (08:13→16:56)
[2023-11-28] MEDS: Empagliflozin 10 MG TABLET PO (08:13)
[2023-11-28] MEDS: metFORMIN HCl 1,000 MG TABLET 1000 MG PO ×2 (08:13→16:57)
[2023-11-28] MEDS: Thiamine HCL 100 MG TABLET PO (08:13)
[2023-11-28] MEDS: Folic Acid 1 MG TABLET PO (08:13)
[2023-11-28] MEDS: Metoprolol Succinate ER 50 MG TAB.ER.24H PO (08:15)
[2023-11-28] MEDS: 0.9 % Sodium Chloride Flush 3 ML SYRINGE IVFLUSH ×3 (08:18→20:25)
[2023-11-28 11:12] LABS: Glucose, Whole Blood 173 mg/dL (60-115)
[2023-11-28] MEDS: Acetaminophen 325 MG TABLET 650 MG PO ×2 (11:56→18:24)
--- NOTE | 2023-11-28 15:25 | P.PNIM_ITS ---
Subjective Subjective Date of Service: 11/28/23 Interval History: Sugars improved on current regimen of Lantus/glipizide/metformin/Jardiance. Vision still remains an issue but otherwise improved per patient. No other clinical complaints Review of Systems Denies chest pain Denies shortness of breath Denies nausea vomiting diarrhea Denies fever chills Physical Exam 2 Vital Signs: Vital Signs: Last Vital Signs Temp 97.7 F 11/28/23 08:00 Pulse 76 11/28/23 08:00 Resp 18 11/28/23 08:00 BP 141/80 H 11/28/23 08:00 Pulse Ox 98 11/28/23 08:00 O2 Del Method Room Air 11/28/23 08:00 BMI result Body Mass Index 27.0 Const: Other: Awake alert no acute distress Resp: Other: Clear to auscultation bilaterally no rales rhonchi or wheezes Cardio: Other: No S4; positive S1-S2; no S3 murmurs rubs or gallops GI: Other: Soft nontender nondistended normoactive bowel sounds Extrem: Other: No edema bilaterally Objective Data Active Medications Acetaminophen (Acetaminophen 325 Mg Tablet) 650 mg PO Q6H PRN PRN Reason: Pain, Mild (Pain Scale 1-3) Last Admin: 11/28/23 11:56 Dose: 650 mg Documented By: JENNI Dextrose (Dextrose 50 % 25 Gm/50 Ml Syringe) 25 gm IVPUSH Q15M PRN; Protocol PRN Reason: per Hypoglycemia Standing Ord. Empagliflozin (Empagliflozin 10 Mg Tablet) 10 mg PO DAILY [facility] Last Admin: 11/28/23 08:13 Dose: 10 mg Documented By: JENNI Folic Acid (Folic Acid 1 Mg Tablet) 1 mg PO DAILY [facility] Last Admin: 11/28/23 08:13 Dose: 1 mg Documented By: JENNI Glipizide (Glipizide 10 Mg Tablet) 10 mg PO BIDWM [facility] Last Admin: 11/28/23 08:13 Dose: 10 mg Documented By: JENNI Glucose (Glucose Gel 15 Gm Gel..Gram.) 15 gm PO Q15M PRN; Protocol PRN Reason: per Hypoglycemia Standing Ord. Hydroxyzine HCl (Hydroxyzine Hcl 25 Mg Tablet) 25 mg PO Q8H PRN PRN Reason: itching Last Admin: 11/27/23 16:21 Dose: 25 mg Documented By: RICARDO Insulin Glargine (Insulin Glargine,Hum.Rec.Anlog 100 Unit/Ml 10 Ml Vial) 25 unit SUBCUT DAILY [facility] Last Admin: 11/28/23 08:13 Dose: 25 unit Documented By: JENNI Insulin Human Lispro (Insulin Lispro 100 Unit/Ml 3 Ml Vial) 0 unit SUBCUT QIDACHS [facility]; Protocol Last Admin: 11/28/23 11:57 Dose: 2 unit Documented By: JENNI Lisinopril (Lisinopril 5 Mg Tablet) 5 mg PO DAILY [facility]; Protocol Last Admin: 11/28/23 08:13 Dose: 5 mg Documented By: JENNI Magnesium Oxide (Magnesium Oxide 400 Mg Tablet) 400 mg PO BIDPC [facility] Last Admin: 11/28/23 08:13 Dose: 400 mg Documented By: JENNI Metformin HCl (Metformin Hcl 1,000 Mg Tablet) 1,000 mg PO BIDWM [facility] Last Admin: 11/28/23 08:13 Dose: 1,000 mg Documented By: JENNI Metoprolol Succinate (Metoprolol Succinate Er 50 Mg Tab.Er.24h) 50 mg PO DAILY [facility]; Protocol Last Admin: 11/28/23 08:15 Dose: 50 mg Documented By: JENNI Ondansetron HCl (Ondansetron Hcl 4 Mg/2 Ml Vial) 4 mg IVPUSH Q8H PRN PRN Reason: Nausea and Vomiting Sodium Chloride (0.9 % Sodium Chloride Flush 3 Ml Syringe) 3 ml IVFLUSH QSHIFT [facility] Last Admin: 11/28/23 08:18 Dose: 3 ml Documented By: JENNI Tamsulosin HCl (Tamsulosin Hcl 0.4 Mg Capsule) 0.4 mg PO BEDTIME [facility] Last Admin: 11/27/23 19:55 Dose: 0.4 mg Documented By: RICK Thiamine HCl (Thiamine Hcl 100 Mg Tablet) 100 mg PO DAILY [facility] Last Admin: 11/28/23 08:13 Dose: 100 mg Documented By: JENNI Trazodone HCl (Trazodone Hcl 50 Mg Tablet) 50 mg PO BEDTIME [facility] Last Admin: 11/27/23 19:55 Dose: 50 mg Documented By: RICK Labs 11/28/23 05:11 03/26/24 05:11 Labs: Laboratory Results - last 24 hr 11/27/23 11/27/23 11/28/23 16:14 19:36 05:11 MCV 89.7 MCH 30.6 MCHC 34.1 RDW 12.7 Plt Count 158 L MPV 10.3 Immature Gran % (Auto) 0.1 Neut % (Auto) 46.1 Lymph % (Auto) 41.2 H Sac % (Auto) 9.4 Eos % (Auto) 2.7 Baso % (Auto) 0.5 Lymph # (Auto) 3.0 Sac # (Auto) 0.7 Eos # (Auto) 0.2 Baso # (Auto) 0.0 Abs Immat Gran (auto) 0.01 Absolute Neuts (auto) 3.4 Absolute Nucleated RBC 0.000 Nucleated RBC % (auto) 0.0 Anion Gap 10 L Estim Creat Clear Calc 63.7 Estimated GFR > 60 POC Glucose 135 H 145 H Fasting Glucose 207 H Calcium 9.9 D Total Bilirubin 0.5 AST 23 ALT 16 Alkaline Phosphatase 70 Total Protein 6.6 Albumin 3.4 L 11/28/23 11/28/23 07:22 11:00 MCV MCH MCHC RDW Plt Count MPV Immature Gran % (Auto) Neut % (Auto) Lymph % (Auto) Sac % (Auto) Eos % (Auto) Baso % (Auto) Lymph # (Auto) Sac # (Auto) Eos # (Auto) Baso # (Auto) Abs Immat Gran (auto) Absolute Neuts (auto) Absolute Nucleated RBC Nucleated RBC % (auto) Anion Gap Estim Creat Clear Calc Estimated GFR POC Glucose 167 H 173 H Fasting Glucose Calcium Total Bilirubin AST ALT Alkaline Phosphatase Total Protein Albumin Assessment and Plan (1) DMII (diabetes mellitus, type 2): Status: Acute (2) Acute kidney injury: Status: Acute (3) HTN (hypertension): Status: Acute Plan Gadiel Arevalo is a 73 years old man with past medical history of hypertension, hemorrhagic stroke, and alcohol use disorder presented to [facility] with symptoms of urinary frequency thirst, blurred vision nausea and was found to have elevated blood sugars and 700 range and diagnosed with new onset diabetes mellitus : 1.New onset diabetes mellitus with hyperglycemia -Blood sugars improved with therapies... All under 200 -given patient's inability to view syringe and needle phobia will optimize oral regimen at this time -increase in metformin/addition of Farxiga... Good clinical response -continue lispro correctional scale 2.Acute kidney injury -responded to volume -follow renals/divalents 3.Essential hypertension -renal function normalized with volume -increase lisinopril to 5 mg daily -follow clinically 4.Depression -with mild delusional thinking -consult psych SCDs, ambulation Full code Patient will need continued inpatient hospitalization for new onset diabetes mellitus/requiring teachings to administer insulin which is difficult with underlying blurred vision and fear of needles and safe disposition; would benefit from short-term rehab and so sugars are maximized Quality Stroke Does the patient have a stroke diagnosis?: No VTE Prior VTE?: No VTE Risk Level:: Medical - moderate - high VTE Device Contraindication: Treatment Not Tolerated VTE Drug Contraindication: Treatment Not Tolerated
[2023-11-28 15:26] VITALS: BP 130/73; PULSE 72; RESP 20; TEMP 36.6; O2SAT 97
[2023-11-28 16:19] LABS: Glucose, Whole Blood 75 mg/dL (60-115)
[2023-11-28 19:21] VITALS: BP 140/65; PULSE 64; RESP 18; TEMP 36.1; O2SAT 98
[2023-11-28 20:14] LABS: Glucose, Whole Blood 134 mg/dL (60-115)
[2023-11-28] MEDS: Tamsulosin HCL 0.4 MG CAPSULE PO (20:23)
[2023-11-28] MEDS: traZODone HCL 50 MG TABLET PO (20:23)
[2023-11-29] MEDS: hydrOXYzine HCL 25 MG TABLET PO ×2 (01:14→14:29)
[2023-11-29] MEDS: Acetaminophen 325 MG TABLET 650 MG PO ×2 (01:14→07:58)
[2023-11-29 02:47] VITALS: BP 110/68; PULSE 65; RESP 18; TEMP 36.2; O2SAT 96
[2023-11-29 05:32] LABS: MANUAL DIFF FLAG NO
[2023-11-29 05:37] LABS: Basophils Percent Auto 0.4 % (0-2); Eosinophils Absolute Auto 0.2 X10*3/uL (0.0-0.4); Eosinophils Percent Auto 2.1 % (0-4); Hematocrit 43.4 % (42.0-52.0); Hemoglobin 15.1 g/dl (14.0-18.0); Imm Gran Abs Auto 0.01 X10*3/uL (0.00-0.03); Imm Gran Pct Auto 0.1 % (0.0-0.4); Lymphocytes Percent Auto 40.5 % (20-40); Mean Corpuscular HGB Conc 34.8 g/dl (31.0-36.0); Mean Corpuscular Hemoglobin 30.9 pg (27.0-33.0); Mean Corpuscular Volume 88.9 fL (80.0-98.0); Monocytes Absolute Auto 0.6 X10*3/uL (0.1-1.2); Monocytes Percent Auto 8.3 % (2-11); Neutrophils Absolute Auto 3.6 x10*3/uL (2.0-8.3); Neutrophils Percent Auto 48.6 % (45-73); Platelet Count 160 X10*3/uL (160-400); Red Blood Count 4.88 X10*6/uL (4.60-5.80); Red Cell Distribution Width 12.7 % (11.0-16.0); White Blood Count 7.5 X10*3/uL (4.8-10.8)
[2023-11-29 05:46] LABS: Alanine Aminotransferase 15 U/L (0-40); Albumin Level 3.3 g/dL (3.5-5.0); Alkaline Phosphatase 69 U/L (39-117); Anion Gap 13 (12-20); Aspartate Amino Transferase 20 U/L (5-37); Bilirubin Total 0.4 mg/dL (0.0-1.0); Blood Urea Nitrogen 18 mg/dL (9-16); Calcium 9.4 mg/dL (8.4-10.2); Carbon Dioxide 26 mmol/L (22-29); Chloride 103 mmol/L (96-108); Creatinine Clr Calc Pharmacy 61.9; Estimated Glomerular Filt Rate > 60; Glucose Fasting 171 mg/dL (60-99); Sodium 138 mmol/L (135-145); Total Protein 6.3 g/dL (6.5-8.0)
[2023-11-29 07:31] VITALS: BP 108/57; PULSE 59; RESP 16; TEMP 36.6; O2SAT 96
[2023-11-29 07:37] LABS: Glucose, Whole Blood 139 mg/dL (60-115)
[2023-11-29] MEDS: Thiamine HCL 100 MG TABLET PO (07:56)
[2023-11-29] MEDS: Empagliflozin 10 MG TABLET PO (07:56)
[2023-11-29] MEDS: glipiZIDE 10 MG TABLET PO ×2 (07:56→16:52)
[2023-11-29] MEDS: Folic Acid 1 MG TABLET PO (07:57)
[2023-11-29] MEDS: metFORMIN HCl 1,000 MG TABLET 1000 MG PO ×2 (07:57→16:52)
[2023-11-29] MEDS: lisinopriL 5 MG TABLET PO (07:57)
[2023-11-29] MEDS: Magnesium Oxide 400 MG TABLET PO ×2 (07:57→16:52)
[2023-11-29] MEDS: 0.9 % Sodium Chloride Flush 3 ML SYRINGE IVFLUSH ×3 (08:00→20:30)
[2023-11-29] MEDS: Insulin Glargine,Hum.rec.anlog 100 UNIT/ML 10 ML VIAL 25 UNIT SUBCUT (09:04)
--- NOTE | 2023-11-29 11:26 | HO.PM.IMPN ---
Subjective Subjective Date of Service: 11/29/23 Interval History: c/o moderate occipital SHANKS endorses depression, denies SI or hallucinations Review of Systems Review of Systems: Yes all other systems are reviewed and are negative Physical Exam Vital Signs: Vital Signs: Last Vital Signs Temp 97.9 F 11/29/23 07:31 Pulse 59 11/29/23 07:31 Resp 16 11/29/23 07:31 BP 108/57 L 11/29/23 07:31 Pulse Ox 96 11/29/23 07:31 O2 Del Method Room Air 11/29/23 07:31 BMI result Body Mass Index 27.0 Gen: in no acute distress HEENT: sclera anicteric, moist mucus membranes Neck: supple Lungs: clear to auscultation bilaterally Heart: regular rate and rhythm, no murmurs Abd: soft, non-tender, non-distended Ext: no edema Skin: warm/well-perfused Neuro: alert and oriented x3, no focal findings Psych: appropriate affect Objective Data Active Medications Acetaminophen (Acetaminophen 325 Mg Tablet) 650 mg PO Q6H PRN PRN Reason: Pain, Mild (Pain Scale 1-3) Last Admin: 11/29/23 07:58 Dose: 650 mg Documented By: ANIYA Dextrose (Dextrose 50 % 25 Gm/50 Ml Syringe) 25 gm IVPUSH Q15M PRN; Protocol PRN Reason: per Hypoglycemia Standing Ord. Empagliflozin (Empagliflozin 10 Mg Tablet) 10 mg PO DAILY [facility] Last Admin: 11/29/23 07:56 Dose: 10 mg Documented By: ANIYA Folic Acid (Folic Acid 1 Mg Tablet) 1 mg PO DAILY [facility] Last Admin: 11/29/23 07:57 Dose: 1 mg Documented By: ANIYA Glipizide (Glipizide 10 Mg Tablet) 10 mg PO BIDWM [facility] Last Admin: 11/29/23 07:56 Dose: 10 mg Documented By: ANIYA Glucose (Glucose Gel 15 Gm Gel..Gram.) 15 gm PO Q15M PRN; Protocol PRN Reason: per Hypoglycemia Standing Ord. Hydroxyzine HCl (Hydroxyzine Hcl 25 Mg Tablet) 25 mg PO Q8H PRN PRN Reason: itching Last Admin: 11/29/23 01:14 Dose: 25 mg Documented By: ODRISAnanya Insulin Glargine (Insulin Glargine,Hum.Rec.Anlog 100 Unit/Ml 10 Ml Vial) 25 unit SUBCUT DAILY [facility] Last Admin: 11/29/23 09:04 Dose: 25 unit Documented By: ANIYA Insulin Human Lispro (Insulin Lispro 100 Unit/Ml 3 Ml Vial) 0 unit SUBCUT QIDACHS [facility]; Protocol Last Admin: 11/29/23 07:42 Dose: Not Given Documented By: ANIYA Non-Admin Reason: No Insulin Coverage Lisinopril (Lisinopril 5 Mg Tablet) 5 mg PO DAILY [facility]; Protocol Last Admin: 11/29/23 07:57 Dose: 5 mg Documented By: ANIYA Magnesium Oxide (Magnesium Oxide 400 Mg Tablet) 400 mg PO BIDPC [facility] Last Admin: 11/29/23 07:57 Dose: 400 mg Documented By: ANIYA Metformin HCl (Metformin Hcl 1,000 Mg Tablet) 1,000 mg PO BIDWM [facility] Last Admin: 11/29/23 07:57 Dose: 1,000 mg Documented By: ANIYA Metoprolol Succinate (Metoprolol Succinate Er 50 Mg Tab.Er.24h) 50 mg PO DAILY [facility]; Protocol Last Admin: 11/29/23 07:58 Dose: Not Given Documented By: ANIYA Non-Admin Reason: Decreased Heart Rate Ondansetron HCl (Ondansetron Hcl 4 Mg/2 Ml Vial) 4 mg IVPUSH Q8H PRN PRN Reason: Nausea and Vomiting Sodium Chloride (0.9 % Sodium Chloride Flush 3 Ml Syringe) 3 ml IVFLUSH QSHIFT [facility] Last Admin: 11/29/23 08:00 Dose: 3 ml Documented By: ANIYA Tamsulosin HCl (Tamsulosin Hcl 0.4 Mg Capsule) 0.4 mg PO BEDTIME [facility] Last Admin: 11/28/23 20:23 Dose: 0.4 mg Documented By: ORLANDO Thiamine HCl (Thiamine Hcl 100 Mg Tablet) 100 mg PO DAILY [facility] Last Admin: 11/29/23 07:56 Dose: 100 mg Documented By: ANIYA Trazodone HCl (Trazodone Hcl 50 Mg Tablet) 50 mg PO BEDTIME [facility] Last Admin: 11/28/23 20:23 Dose: 50 mg Documented By: LEIGHAM Labs 11/29/23 05:04 11/29/23 05:04 Labs: Laboratory Results - last 24 hr 11/28/23 11/28/23 11/29/23 16:15 19:52 05:04 MCV 88.9 MCH 30.9 MCHC 34.8 RDW 12.7 Plt Count 160 MPV 10.0 Immature Gran % (Auto) 0.1 Neut % (Auto) 48.6 Lymph % (Auto) 40.5 H Mcculloch % (Auto) 8.3 Eos % (Auto) 2.1 Baso % (Auto) 0.4 Lymph # (Auto) 3.0 Mcculloch # (Auto) 0.6 Eos # (Auto) 0.2 Baso # (Auto) 0.0 Abs Immat Gran (auto) 0.01 Absolute Neuts (auto) 3.6 Absolute Nucleated RBC 0.000 Nucleated RBC % (auto) 0.0 Anion Gap 13 Estim Creat Clear Calc 61.9 Estimated GFR > 60 POC Glucose 75 134 H Fasting Glucose 171 H Calcium 9.4 Total Bilirubin 0.4 AST 20 ALT 15 Alkaline Phosphatase 69 Total Protein 6.3 L Albumin 3.3 L 11/29/23 07:29 MCV MCH MCHC RDW Plt Count MPV Immature Gran % (Auto) Neut % (Auto) Lymph % (Auto) Mcculloch % (Auto) Eos % (Auto) Baso % (Auto) Lymph # (Auto) Mcculloch # (Auto) Eos # (Auto) Baso # (Auto) Abs Immat Gran (auto) Absolute Neuts (auto) Absolute Nucleated RBC Nucleated RBC % (auto) Anion Gap Estim Creat Clear Calc Estimated GFR POC Glucose 139 H Fasting Glucose Calcium Total Bilirubin AST ALT Alkaline Phosphatase Total Protein Albumin Assessment and Plan (1) DMII (diabetes mellitus, type 2): Status: Acute (2) Acute kidney injury: Status: Acute (3) HTN (hypertension): Status: Acute Plan d7 73yo M with hx HTN, hemorrhagic CVA, AUD presenting with symptomatic hyperglycemia, diagnosed with new-onset DM2 DM2 with hyperglycemia, new-onset - much improved on MTF + empagliflozin + GPZ + Lantus [also phi-dose lispro] headache - trial of Fioricet. Given hx will check CTH KRYSTEN, prerenal - resolved with volume repletion HTN - lisinopril depression with delusional thinking - Psychiatry consultation requested by Dr Landa 11/27/23, awaiting their evaluation VTE ppx - early ambulation, SCDs dispo - STR In my clinical judgment, the patient requires continued inpatient hospitalization for the following reasons: placement [at this point unable to self-administer insulin due to blurry vision + needle phobia] + psychiatry consultation Total time managing care of this patient today: 35 minutes. Quality Stroke Does the patient have a stroke diagnosis?: No VTE Prior VTE?: No VTE Risk Level:: Medical - moderate - high VTE Device Contraindication: Treatment Not Tolerated VTE Drug Contraindication: Treatment Not Tolerated
[2023-11-29 11:41] LABS: Glucose, Whole Blood 180 mg/dL (60-115)
[2023-11-29] MEDS: Insulin Lispro 100 UNIT/ML 3 ML VIAL SUBCUT ×2 (12:35→20:30)
--- NOTE | 2023-11-29 14:43 | MHC.CM.PN ---
pt ready for dc accepted at [facility] await ins auth
[2023-11-29 15:14] VITALS: BP 118/61; PULSE 61; RESP 16; TEMP 36.6; O2SAT 97
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
[2023-11-29 16:30] LABS: Glucose, Whole Blood 148 mg/dL (60-115)
[2023-11-29 19:14] VITALS: BP 135/68; PULSE 60; RESP 16; TEMP 36.5; O2SAT 97
[2023-11-29 19:40] LABS: Glucose, Whole Blood 155 mg/dL (60-115)
[2023-11-29] MEDS: Tamsulosin HCL 0.4 MG CAPSULE PO (20:29)
[2023-11-29] MEDS: traZODone HCL 50 MG TABLET PO (20:29)
[2023-11-29] MEDS: Butalb/Acetamin/Caff 50/325/40 TABLET 1 TAB PO (20:29)
[2023-11-29] MEDS: risperiDONE 1 MG TABLET PO (20:30)
--- NOTE | 2023-11-30 | ECG_ITS ---
Test Reason : [facility] kQTC Blood Pressure : / mmHG Vent. Rate : 059 BPM Atrial Rate : 059 BPM P-R Int : 200 ms QRS Dur : 120 ms QT Int : 436 ms P-R-T Axes : 058 -15 104 degrees QTc Int : 431 ms Sinus bradycardia Non-specific intra-ventricular conduction delay Nonspecific T wave abnormality Abnormal ECG When compared with ECG of 22-NOV-2023 22:39, ST no longer depressed in Anterior leads T wave inversion no longer evident in Anterior leads Referred By: Mario Flanagan Electronically Signed By:Elliot Rice
[2023-11-30 04:00] VITALS: BP 122/59; PULSE 64; RESP 14; TEMP 36.2; O2SAT 97
[2023-11-30 06:59] LABS: MANUAL DIFF FLAG NO
[2023-11-30 07:05] LABS: Basophils Percent Auto 0.3 % (0-2); Eosinophils Absolute Auto 0.2 X10*3/uL (0.0-0.4); Eosinophils Percent Auto 1.8 % (0-4); Hematocrit 44.1 % (42.0-52.0); Hemoglobin 15.4 g/dl (14.0-18.0); Imm Gran Abs Auto 0.02 X10*3/uL (0.00-0.03); Imm Gran Pct Auto 0.2 % (0.0-0.4); Lymphocytes Absolute Auto 2.9 X10*3/uL (1.2-4.9); Lymphocytes Percent Auto 32.6 % (20-40); Mean Corpuscular HGB Conc 34.9 g/dl (31.0-36.0); Mean Corpuscular Hemoglobin 30.8 pg (27.0-33.0); Mean Corpuscular Volume 88.2 fL (80.0-98.0); Monocytes Absolute Auto 0.8 X10*3/uL (0.1-1.2); Monocytes Percent Auto 9.3 % (2-11); Neutrophils Percent Auto 55.8 % (45-73); Platelet Count 171 X10*3/uL (160-400); Red Cell Distribution Width 12.9 % (11.0-16.0); White Blood Count 8.9 X10*3/uL (4.8-10.8)
[2023-11-30 07:17] LABS: Glucose, Whole Blood 122 mg/dL (60-115)
[2023-11-30 07:19] LABS: Alanine Aminotransferase 12 U/L (0-40); Albumin Level 3.5 g/dL (3.5-5.0); Alkaline Phosphatase 62 U/L (39-117); Anion Gap 13 (12-20); Aspartate Amino Transferase 19 U/L (5-37); Bilirubin Total 0.5 mg/dL (0.0-1.0); Blood Urea Nitrogen 20 mg/dL (9-16); Calcium 9.8 mg/dL (8.4-10.2); Carbon Dioxide 26 mmol/L (22-29); Chloride 104 mmol/L (96-108); Creatinine Clr Calc Pharmacy 84.7; Estimated Glomerular Filt Rate > 60; Glucose Fasting 97 mg/dL (60-99); Potassium 3.6 mmol/L (3.3-5.1); Sodium 139 mmol/L (135-145); Total Protein 6.5 g/dL (6.5-8.0)
[2023-11-30 07:30] LABS: Glucose, Whole Blood 119 mg/dL (60-115)
[2023-11-30 07:55] VITALS: BP 106/63; PULSE 87; RESP 18; TEMP 37; O2SAT 97
[2023-11-30] MEDS: Folic Acid 1 MG TABLET PO (08:56)
[2023-11-30] MEDS: metFORMIN HCl 1,000 MG TABLET 1000 MG PO ×2 (08:56→17:31)
[2023-11-30] MEDS: Magnesium Oxide 400 MG TABLET PO ×2 (08:56→17:31)
[2023-11-30] MEDS: 0.9 % Sodium Chloride Flush 3 ML SYRINGE IVFLUSH ×3 (08:56→19:58)
[2023-11-30] MEDS: Empagliflozin 10 MG TABLET PO (08:56)
[2023-11-30] MEDS: risperiDONE 1 MG TABLET PO ×2 (08:56→19:59)
[2023-11-30] MEDS: Metoprolol Succinate ER 50 MG TAB.ER.24H PO (08:56)
[2023-11-30] MEDS: Insulin Glargine,Hum.rec.anlog 100 UNIT/ML 10 ML VIAL 25 UNIT SUBCUT (08:56)
[2023-11-30] MEDS: Thiamine HCL 100 MG TABLET PO (08:56)
[2023-11-30] MEDS: glipiZIDE 10 MG TABLET PO ×2 (08:56→17:31)
[2023-11-30] MEDS: lisinopriL 5 MG TABLET PO (08:56)
[2023-11-30] MEDS: Acetaminophen 325 MG TABLET 650 MG PO (09:06)
[2023-11-30 09:48] LABS: Anion Gap 15 (12-20); Blood Urea Nitrogen 18 mg/dL (9-16); Calcium 9.6 mg/dL (8.4-10.2); Carbon Dioxide 23 mmol/L (22-29); Chloride 104 mmol/L (96-108); Creatinine Clr Calc Pharmacy 79.6; Estimated Glomerular Filt Rate > 60; Glucose Random 152 mg/dL (60-115); Sodium 138 mmol/L (135-145)
[2023-11-30 10:10] LABS: Syphilis Screen Nonreactive (Nonreactive)
[2023-11-30 10:11] LABS: HIV AB/AG Nonreactive (Nonreactive); HIV Num 1 0.05 S/CO (0.00-0.99); TSH reflex Free T4 1.06 uIU/mL (0.32-4.0)
--- NOTE | 2023-11-30 10:12 | P.PNIM_ITS ---
Subjective Subjective Date of Service: 11/30/23 Interval History: BGs well-controlled c/o parasitosis Review of Systems Review of Systems: Yes all other systems are reviewed and are negative Physical Exam 2 Vital Signs: Vital Signs: Last Vital Signs Temp 98.6 F 11/30/23 07:55 Pulse 87 11/30/23 07:55 Resp 18 11/30/23 07:55 BP 106/63 11/30/23 07:55 Pulse Ox 97 11/30/23 07:55 O2 Del Method Room Air 11/30/23 07:55 BMI result Body Mass Index 27.0 Gen: in no acute distress HEENT: sclera anicteric, moist mucus membranes Neck: supple Lungs: clear to auscultation bilaterally Heart: regular rate and rhythm, no murmurs Abd: soft, non-tender, non-distended Ext: no edema Skin: warm/well-perfused Neuro: alert and oriented x3, no focal findings Psych: appropriate affect Objective Data Active Medications Acetaminophen (Acetaminophen 325 Mg Tablet) 650 mg PO Q6H PRN PRN Reason: Pain, Mild (Pain Scale 1-3) Last Admin: 11/30/23 09:06 Dose: 650 mg Documented By: MINGO Acetaminophen/Butalbital/Caffeine (Butalb/Acetamin/Caff 50/325/40 Tablet) 1 tab PO Q4H PRN PRN Reason: headache Last Admin: 11/29/23 20:29 Dose: 1 tab Documented By: MARIN Dextrose (Dextrose 50 % 25 Gm/50 Ml Syringe) 25 gm IVPUSH Q15M PRN; Protocol PRN Reason: per Hypoglycemia Standing Ord. Empagliflozin (Empagliflozin 10 Mg Tablet) 10 mg PO DAILY [facility] Last Admin: 11/30/23 08:56 Dose: 10 mg Documented By: MINGO Folic Acid (Folic Acid 1 Mg Tablet) 1 mg PO DAILY [facility] Last Admin: 11/30/23 08:56 Dose: 1 mg Documented By: MINGO Glipizide (Glipizide 10 Mg Tablet) 10 mg PO BIDWM [facility] Last Admin: 11/30/23 08:56 Dose: 10 mg Documented By: MINGO Glucose (Glucose Gel 15 Gm Gel..Gram.) 15 gm PO Q15M PRN; Protocol PRN Reason: per Hypoglycemia Standing Ord. Hydroxyzine HCl (Hydroxyzine Hcl 25 Mg Tablet) 25 mg PO Q8H PRN PRN Reason: itching Last Admin: 11/29/23 14:29 Dose: 25 mg Documented By: ANIYA Insulin Glargine (Insulin Glargine,Hum.Rec.Anlog 100 Unit/Ml 10 Ml Vial) 25 unit SUBCUT DAILY [facility] Last Admin: 11/30/23 08:56 Dose: 25 unit Documented By: MINGO Insulin Human Lispro (Insulin Lispro 100 Unit/Ml 3 Ml Vial) 0 unit SUBCUT QIDACHS [facility]; Protocol Last Admin: 11/30/23 08:55 Dose: Not Given Documented By: MINGO Non-Admin Reason: No Insulin Coverage Lidocaine (Lidocaine 5 % Ointment 35 Gm) 1 appl TOPICAL Q6H PRN; Protocol PRN Reason: arthritis pain Lisinopril (Lisinopril 5 Mg Tablet) 5 mg PO DAILY [facility]; Protocol Last Admin: 11/30/23 08:56 Dose: 5 mg Documented By: MINGO Magnesium Oxide (Magnesium Oxide 400 Mg Tablet) 400 mg PO BIDPC [facility] Last Admin: 11/30/23 08:56 Dose: 400 mg Documented By: MINGO Metformin HCl (Metformin Hcl 1,000 Mg Tablet) 1,000 mg PO BIDWM [facility] Last Admin: 11/30/23 08:56 Dose: 1,000 mg Documented By: MINGO Metoprolol Succinate (Metoprolol Succinate Er 50 Mg Tab.Er.24h) 50 mg PO DAILY [facility]; Protocol Last Admin: 11/30/23 08:56 Dose: 50 mg Documented By: MINGO Ondansetron HCl (Ondansetron Hcl 4 Mg/2 Ml Vial) 4 mg IVPUSH Q8H PRN PRN Reason: Nausea and Vomiting Oxycodone HCl (Oxycodone Hcl Immed Release 5 Mg Tablet) 5 mg PO Q4H PRN PRN Reason: severe pain Risperidone (Risperidone 1 Mg Tablet) 1 mg PO BID [facility] Last Admin: 11/30/23 08:56 Dose: 1 mg Documented By: MINGO Sodium Chloride (0.9 % Sodium Chloride Flush 3 Ml Syringe) 3 ml IVFLUSH QSHIFT [facility] Last Admin: 11/30/23 08:56 Dose: 3 ml Documented By: MINGO Tamsulosin HCl (Tamsulosin Hcl 0.4 Mg Capsule) 0.4 mg PO BEDTIME [facility] Last Admin: 11/29/23 20:29 Dose: 0.4 mg Documented By: MARIN Thiamine HCl (Thiamine Hcl 100 Mg Tablet) 100 mg PO DAILY [facility] Last Admin: 11/30/23 08:56 Dose: 100 mg Documented By: MINGO Trazodone HCl (Trazodone Hcl 50 Mg Tablet) 50 mg PO BEDTIME [facility] Last Admin: 11/29/23 20:29 Dose: 50 mg Documented By: MARIN Labs 11/30/23 06:52 11/30/23 08:37 Labs: Laboratory Results - last 24 hr 11/29/23 11/29/23 11/29/23 11:35 16:04 19:16 MCV MCH MCHC RDW Plt Count MPV Immature Gran % (Auto) Neut % (Auto) Lymph % (Auto) Baker % (Auto) Eos % (Auto) Baso % (Auto) Lymph # (Auto) Baker # (Auto) Eos # (Auto) Baso # (Auto) Abs Immat Gran (auto) Absolute Neuts (auto) Absolute Nucleated RBC Nucleated RBC % (auto) Anion Gap Estim Creat Clear Calc Estimated GFR POC Glucose 180 H 148 H 155 H Random Glucose Fasting Glucose Calcium Total Bilirubin AST ALT Alkaline Phosphatase Total Protein Albumin TSH T.pallidum Ab (EIA) 11/30/23 11/30/23 11/30/23 06:52 07:12 07:21 MCV 88.2 MCH 30.8 MCHC 34.9 RDW 12.9 Plt Count 171 MPV 10.0 Immature Gran % (Auto) 0.2 Neut % (Auto) 55.8 Lymph % (Auto) 32.6 Baker % (Auto) 9.3 Eos % (Auto) 1.8 Baso % (Auto) 0.3 Lymph # (Auto) 2.9 Baker # (Auto) 0.8 Eos # (Auto) 0.2 Baso # (Auto) 0.0 Abs Immat Gran (auto) 0.02 Absolute Neuts (auto) 5.0 Absolute Nucleated RBC 0.000 Nucleated RBC % (auto) 0.0 Anion Gap 13 Estim Creat Clear Calc 84.7 Estimated GFR > 60 POC Glucose 122 H 119 H Random Glucose Fasting Glucose 97 Calcium 9.8 Total Bilirubin 0.5 AST 19 ALT 12 Alkaline Phosphatase 62 Total Protein 6.5 Albumin 3.5 TSH T.pallidum Ab (EIA) 11/30/23 08:37 MCV MCH MCHC RDW Plt Count MPV Immature Gran % (Auto) Neut % (Auto) Lymph % (Auto) Baker % (Auto) Eos % (Auto) Baso % (Auto) Lymph # (Auto) Baker # (Auto) Eos # (Auto) Baso # (Auto) Abs Immat Gran (auto) Absolute Neuts (auto) Absolute Nucleated RBC Nucleated RBC % (auto) Anion Gap 15 Estim Creat Clear Calc 79.6 Estimated GFR > 60 POC Glucose Random Glucose 152 H Fasting Glucose Calcium 9.6 Total Bilirubin AST ALT Alkaline Phosphatase Total Protein Albumin TSH 1.06 T.pallidum Ab (EIA) Nonreactive Assessment and Plan (1) DMII (diabetes mellitus, type 2): Status: Acute (2) Acute kidney injury: Status: Acute (3) HTN (hypertension): Status: Acute Plan d8 73yo M with hx HTN, hemorrhagic CVA, AUD presenting with symptomatic hyperglycemia, diagnosed with new-onset DM2 with A1c 13.7 DM2 with hyperglycemia, new-onset - much improved on MTF + empagliflozin + GPZ + Lantus [also phi-dose lispro] delusional parasitosis - Psych consulted, start low-dose risperidone, check EKG for QTc, check TSH/B12/HIV/RPR headache - prn Fioricet KRYSTEN, prerenal - resolved with volume repletion HTN - lisinopril VTE ppx - early ambulation, SCDs dispo - STR In my clinical judgment, the patient requires continued inpatient hospitalization for the following reasons: placement [at this point unable to self-administer insulin due to blurry vision + needle phobia] + psychiatry consultation Total time managing care of this patient today: 35 minutes. Quality Stroke Does the patient have a stroke diagnosis?: No VTE Prior VTE?: No VTE Risk Level:: Medical - moderate - high VTE Device Contraindication: Treatment Not Tolerated VTE Drug Contraindication: Treatment Not Tolerated
[2023-11-30 11:19] LABS: Glucose, Whole Blood 185 mg/dL (60-115)
[2023-11-30] MEDS: Lidocaine 5 % Ointment 35 GM 1 APPL TOPICAL ×2 (12:01→20:00)
[2023-11-30] MEDS: Insulin Lispro 100 UNIT/ML 3 ML VIAL SUBCUT ×2 (12:01→19:59)
[2023-11-30 12:18] LABS: Folate 13.8 ng/mL (> or = 4.0); Vitamin B12 306 pg/mL (200-900)
--- NOTE | 2023-11-30 13:25 | PC.NURSE ---
Addendum entered by Emmy Carranza RN 11/30/23 18:10: Pt agreeable to get OOB up to chair after lunch, educated on reason for safety measures implemented; red socks, red bracelet, and chair alarm. Original Note: This RN and staff FLAKING ROLL OPERATOR asked pt if he wanted to get OOB, wash up, and sit in chair, pt declined multiple times stating he would do it later .
[2023-11-30] MEDS: hydrOXYzine HCL 25 MG TABLET PO (15:30)
[2023-11-30 15:37] VITALS: BP 118/69; PULSE 69; RESP 15; TEMP 37; O2SAT 94
--- NOTE | 2023-11-30 15:45 | MHC.CM.PN ---
CM MET WITH PT TO DISCUSS DC PLANNING HE WAS INFORMED HIS INSURANCE HAS DENIED STR HOWEVER WOULD COVER VNA SERVICES [facility] IS OFFERING DAILY VISITS HOWEVER THEY ARE UNABLE TO START PRIOR TO THE WEEKEND PT REPORTS HE DOES NOT FEEL MEDICALLY READY TO DC HE HAS HAD SOME NEW SYMPTOMS THAT HE DID NOT REALIZE BEFORE HE SAYS HE WILL DISCUSS THEM WITH THE MD [facility] NOTIFIED OF PLAN FOR PT TO DC HOME CM AWAITING RESPONSE TO DETERMINE WHEN THEY CAN START DAILY VISITS
[2023-11-30 16:10] LABS: Glucose, Whole Blood 104 mg/dL (60-115)
[2023-11-30 19:39] VITALS: BP 149/76; PULSE 67; RESP 14; TEMP 36.6; O2SAT 98
[2023-11-30 19:50] LABS: Glucose, Whole Blood 154 mg/dL (60-115)
[2023-11-30] MEDS: Tamsulosin HCL 0.4 MG CAPSULE PO (19:59)
[2023-11-30] MEDS: Butalb/Acetamin/Caff 50/325/40 TABLET 1 TAB PO (19:59)
[2023-11-30] MEDS: traZODone HCL 50 MG TABLET PO (19:59)
[2023-12-01] MEDS: Acetaminophen 325 MG TABLET 650 MG PO ×2 (00:25→08:29)
[2023-12-01] MEDS: hydrOXYzine HCL 25 MG TABLET PO ×2 (00:25→11:57)
[2023-12-01 07:20] LABS: Glucose, Whole Blood 88 mg/dL (60-115)
[2023-12-01 07:30] VITALS: BP 126/66; PULSE 79; RESP 18; TEMP 36.2; O2SAT 96
[2023-12-01] MEDS: Lidocaine 5 % Ointment 35 GM 1 APPL TOPICAL (08:29)
[2023-12-01] MEDS: glipiZIDE 10 MG TABLET PO (08:29)
[2023-12-01] MEDS: Magnesium Oxide 400 MG TABLET PO (08:29)
[2023-12-01] MEDS: risperiDONE 1 MG TABLET PO (08:29)
[2023-12-01] MEDS: Metoprolol Succinate ER 50 MG TAB.ER.24H PO (08:29)
[2023-12-01] MEDS: Insulin Glargine,Hum.rec.anlog 100 UNIT/ML 10 ML VIAL 25 UNIT SUBCUT (08:29)
[2023-12-01] MEDS: Thiamine HCL 100 MG TABLET PO (08:29)
[2023-12-01] MEDS: metFORMIN HCl 1,000 MG TABLET 1000 MG PO (08:29)
[2023-12-01] MEDS: Folic Acid 1 MG TABLET PO (08:29)
[2023-12-01] MEDS: Empagliflozin 10 MG TABLET PO (08:29)
[2023-12-01] MEDS: 0.9 % Sodium Chloride Flush 3 ML SYRINGE IVFLUSH (08:30)
[2023-12-01] MEDS: lisinopriL 5 MG TABLET PO (08:38)
[2023-12-01 11:40] LABS: Glucose, Whole Blood 207 mg/dL (60-115)
[2023-12-01] MEDS: Insulin Lispro 100 UNIT/ML 3 ML VIAL SUBCUT (11:57)
--- NOTE | 2023-12-01 13:18 | MHC.CM.PN ---
[facility] gayatri notified via tiger text that pt was dcd today
--- NOTE | 2023-12-01 14:14 | W.MHC.F2F ---
Service Date Service Date: 12/01/23 Encounter Date of encounter: 12/01/23 Reasons for Services Signs and symptoms assessed: New onset DM with Lantus dependence Reason for long-term: diabetic teaching, monitoring of unstable blood sugar, medication management, medication treatment and teach disease management MD Overseeing Care: Zay Bhagat Homebound: Leaving the home is medically contraindicated at this time without the asist of a device and/or another person due th the listed conditions above and below. Reason homebound: weakness related to hospital stay Certification: Based on the above findings, I certify that this patient is confined to the home and needs intermittent long-term care, physical therapy and/or speech therapy, or continues to need occupational therapy. The patient is under my care, and I have initiated the establishment of the plan of care. The patient will be followed by a physician who will periodically review the plan of care. Time Spent With Patient Time: Total time managing care of this patient today ____ minutes.
--- NOTE | 2023-12-01 14:23 | PM.DS ---
DS: Providers Provider Date of Service: 12/01/23 Date of admission: 11/23/23 02:12 Date of discharge: 12/01/23 Primary care physician: Zay Bhagat MD Consults: 11/27/23 11:26 Consult to Psychiatry Routine Consulting Provider: Psych Covering Reason for consultation: delusional Has provider been notified: No DS: Diagnosis Discharge Diagnosis (1) Acute kidney injury: Status: Acute (2) HTN (hypertension): Status: Acute (3) New onset type 2 diabetes mellitus: Status: Acute (4) Delusions of parasitosis: Status: Acute DS: Summary Hospital Course Hospital Course: From the history and physical by the admitting hospitalist, Dr Rubén Michelle, 11/23/23: Gadiel Arevalo is a 73 years old man with past medical history significant for essential hypertension and BPH presents to the emergency department after he was found to have severe hyperglycemia (700s) on routine blood workup. He stated that he has been feeling weak. He also report having increasing thirst, urinary frequency, nausea, abdominal discomfort and blurry vision. He also reported poor appetite. Denies weight loss, vomiting or diarrhea. He also denied fever or chills. Patient also reported unpleasant sensation that he has been experiencing 4 year. He told me that he feels like things are growing inside the skin of his face and legs. He seems frustrated as nobody has been able to help him with this. He denied alcohol abuse, tobacco smoking or illicit drug use. In the ED, he was found to have stable vital signs. Blood workup showed no leukocytosis. Hemoglobin is normal. Initial glucose was 872. The most recent the glucose is 382 after receiving treatment with fluids and insulin R. His creatinine was 1.93 while most recent 1 is 131. Anion gap is normal and there is no metabolic acidosis. Beta hydroxybutyrate is 3.0. Abdomen pelvis CT scan showed cholelithiasis and/or sludge within the gallbladder, chronic pancreatitis, diverticulosis without diverticulitis and nonobstructive left renal calculus. ED tx: NS 2 L bolus, insulin R 19 units (total). 73yo M with HTN, hx hemorrhagic CVA, and hx AUD in remission presenting with symptomatic hyperglycemia, diagnosed with new-onset DM2 with A1c 13.7. He did not have DKA. Blood glucose improved markedly on metformin + empagliflozin + glipizide and Lantus. He was discharged on this regimen with VNA services for insulin/diabetic teaching and will need close Primary Care follow-up. KRYSTEN was prerenal and resolved with volume repletion; lisinopril restarted and dose increased from 2.5 to 5 mg daily for BP control. He also had symptoms of delusional parasitosis; Psychiatry was consulted and he started low-dose risperidone; QTc normal. Time Attestation Discharge Coordination Time (in mins): 35 Quality: Safe Use of Opioids Does Pt have an Active Cancer Diagnosis on the Problem List?: No Quality: Stroke Does the patient have a stroke diagnosis?: No Physical Exam Vital Signs: Vital Signs: Last Vital Signs Temp 97.1 F 12/01/23 07:30 Pulse 79 12/01/23 07:30 Resp 18 12/01/23 07:30 BP 126/66 12/01/23 07:30 Pulse Ox 96 12/01/23 07:30 O2 Del Method Room Air 12/01/23 07:30 BMI result Body Mass Index 27.0 Gen: in no acute distress HEENT: sclera anicteric, moist mucus membranes Neck: supple Lungs: clear to auscultation bilaterally Heart: regular rate and rhythm, no murmurs Abd: soft, non-tender, non-distended Ext: no edema Skin: warm/well-perfused Neuro: alert and oriented x3, no focal findings Psych: appropriate affect DS: Data Data Completed and Pending Completed studies during hospitalization [Text1]: Laboratory Results WBC 8.9 X10*3/uL (4.8-10.8) 11/30/23 06:52 RBC 5.00 X10*6/uL (4.60-5.80) 11/30/23 06:52 Hgb 15.4 g/dl (14.0-18.0) 11/30/23 06:52 Hct 44.1 % (42.0-52.0) 11/30/23 06:52 MCV 88.2 fL (80.0-98.0) 11/30/23 06:52 MCH 30.8 pg (27.0-33.0) 11/30/23 06:52 MCHC 34.9 g/dl (31.0-36.0) 11/30/23 06:52 RDW 12.9 % (11.0-16.0) 11/30/23 06:52 Plt Count 171 X10*3/uL (160-400) 11/30/23 06:52 MPV 10.0 fL (9.4-12.4) 11/30/23 06:52 Immature Gran % (Auto) 0.2 % (0.0-0.4) 11/30/23 06:52 Neut % (Auto) 55.8 % (45-73) 11/30/23 06:52 Lymph % (Auto) 32.6 % (20-40) 11/30/23 06:52 [place] % (Auto) 9.3 % (2-11) 11/30/23 06:52 Eos % (Auto) 1.8 % (0-4) 11/30/23 06:52 Baso % (Auto) 0.3 % (0-2) 11/30/23 06:52 Lymph # (Auto) 2.9 X10*3/uL (1.2-4.9) 11/30/23 06:52 [place] # (Auto) 0.8 X10*3/uL (0.1-1.2) 11/30/23 06:52 Eos # (Auto) 0.2 X10*3/uL (0.0-0.4) 11/30/23 06:52 Baso # (Auto) 0.0 X10*3/uL (0.0-0.2) 11/30/23 06:52 Abs Immat Gran (auto) 0.02 X10*3/uL (0.00-0.03) 11/30/23 06:52 Absolute Neuts (auto) 5.0 x10*3/uL (2.0-8.3) 11/30/23 06:52 Absolute Nucleated RBC 0.000 X10*3/uL (0.0-0.012) 11/30/23 06:52 Nucleated RBC % (auto) 0.0 /100WBC (0.0-0.2) 11/30/23 06:52 VBG pH 7.38 (7.32-7.43) 11/22/23 22:59 VBG pCO2 39 mmHg 11/22/23 22:59 VBG pO2 46 mmHg 11/22/23 22:59 VBG HCO3 23 mmol/L (22-26) 11/22/23 22:59 VBG O2 Saturation 74.0 % 11/22/23 22:59 VBG Base Excess -1.0 mmol/L 11/22/23 22:59 Sodium 138 mmol/L (135-145) 11/30/23 08:37 Potassium 4.0 mmol/L (3.3-5.1) 11/30/23 08:37 Chloride 104 mmol/L (96-108) 11/30/23 08:37 Carbon Dioxide 23 mmol/L (22-29) 11/30/23 08:37 Anion Gap 15 (12-20) 11/30/23 08:37 BUN 18 mg/dL (9-16) H 11/30/23 08:37 Creatinine 0.84 mg/dL (0.5-1.4) 11/30/23 08:37 Estim Creat Clear Calc 79.6 11/30/23 08:37 Estimated GFR > 60 11/30/23 08:37 POC Glucose 207 mg/dL (60-115) H 12/01/23 11:35 Random Glucose 152 mg/dL (60-115) H 11/30/23 08:37 Fasting Glucose 97 mg/dL (60-99) 11/30/23 06:52 Estimat Average Glucose 346 mg/dL 11/22/23 22:55 Hemoglobin A1c % 13.7 % (<6.0) H 11/22/23 22:55 Calcium 9.6 mg/dL (8.4-10.2) 11/30/23 08:37 Magnesium 2.1 mg/dL (1.6-2.6) 11/23/23 11:00 Total Bilirubin 0.5 mg/dL (0.0-1.0) 11/30/23 06:52 AST 19 U/L (5-37) 11/30/23 06:52 ALT 12 U/L (0-40) 11/30/23 06:52 Alkaline Phosphatase 62 U/L (39-117) 11/30/23 06:52 Troponin I High Sens 16.9 ng/L (<3.5-35.0) 11/22/23 22:55 B-Natriuretic Peptide 124 pg/mL (<100) H 11/22/23 22:55 Total Protein 6.5 g/dL (6.5-8.0) 11/30/23 06:52 Albumin 3.5 g/dL (3.5-5.0) 11/30/23 06:52 Vitamin B12 306 pg/mL (200-900) 11/30/23 08:37 Folate 13.8 ng/mL (> or = 4.0) 11/30/23 08:37 Beta-Hydroxybutyrate 0.71 mmol/L (0.02-0.27) H 11/23/23 11:00 TSH 1.06 uIU/mL (0.32-4.0) 11/30/23 08:37 Urine Color Yellow 11/22/23 23:20 Urine Appearance Clear 11/22/23 23:20 Urine pH 5.5 (5.0-9.0) 11/22/23 23:20 Ur Specific [place] >= 1.030 (1.005-1.025) H 11/22/23 23:20 Urine Protein Negative mg/dL (Neg-Trace) 11/22/23 23:20 Urine Glucose (UA) >=1000 mg/dL (Negative) H 11/22/23 23:20 Urine Ketones 15 mg/dL (Negative) 11/22/23 23:20 Urine Blood Negative (Negative) 11/22/23 23:20 Urine Nitrite Negative (Negative) 11/22/23 23:20 Ur Leukocyte Esterase Negative (Negative) 11/22/23 23:20 Urine RBC 0-2 /HPF (0-2) 11/22/23 23:20 Urine WBC 0-5 /HPF (0-5) 11/22/23 23:20 Ur Squamous Epith Cells 0-2 /HPF (0-2) 11/22/23 23:20 Urine Bacteria None Seen (None Seen) 11/22/23 23:20 Hyaline Casts 0-2 /LPF (0-2) 11/22/23 23:20 Urine Yeast Present 11/22/23 23:20 T.pallidum Ab (EIA) Nonreactive (Nonreactive) 11/30/23 08:37 HIV 1&2 Ab/P24 Ag 4thGn Nonreactive (Nonreactive) 11/30/23 08:37 Influenza Type A (PCR) NEGATIVE (Negative) 11/22/23 22:55 Influenza Type B (PCR) NEGATIVE (Negative) 11/22/23 22:55 RSV RNA Qual (PCR) NEGATIVE (Negative) 11/22/23 22:55 SARS-CoV-2 RNA (RT-PCR) NEGATIVE (Negative) 11/22/23 22:55 Impressions Chest X-Ray 11/22/23 22:40 IMPRESSION: 1. Bilateral low lung volumes. 2. Accentuation of pulmonary vasculature. Abdomen/Pelvis CT 11/23/23 00:21 IMPRESSION: 1. Cholelithiasis and/or sludge within the gallbladder. 2. Chronic pancreatitis. 3. Diverticulosis without diverticulitis. 4. Nonobstructing left renal calculus. Fleischner guidelines were followed. Head CT 11/29/23 12:40 IMPRESSION: No acute intracranial hemorrhage or territorial infarction. Generalized parenchymal volume loss and mild chronic white matter microangiopathy. Chronic infarct in the right frontal lobe, as seen on prior imaging. Discharge Plan Discharge Anticipated Discharge Date/Time: 12/01/23 14:14 Patient Disposition: Home Health Service Discharge Diagnosis: DM2 with hyperglycemia, new-onset acute kidney injury delusional parasitosis Referrals: [facility] [Other] - 1 Week [facility] [Outside] - 1 Day Zay Bhagat MD [Primary Care Provider] - 1 Week Physician,[place] J [Physician] - 1 Week Discharge Medications: New lisinopril 5 mg Tablet 5 mg PO DAILY Qty: 30 0RF Protocol: Hold for SBP< HOLD for SBP < : 90 risperidone 1 mg Tablet 1 mg PO BID Qty: 60 0RF Jardiance 10 mg Tablet 10 mg PO DAILY Qty: 30 0RF glipizide 10 mg Tablet 10 mg PO BIDWM Qty: 60 0RF metformin 1,000 mg Tablet 1,000 mg PO BIDWM Qty: 60 0RF lidocaine 5 % Ointment 1 appl topical Q6H PRN (Reason: arthritis pain) Qty: 50 0RF Protocol: Apply to: Apply to: arthritis pain insulin glargine [Lantus Solostar U-100 Insulin] 100 unit/mL (3 mL) insulin pen 20 unit subcut QAM Qty: 15 0RF (DME) FreeStyle Lite Strips Strip Qty: 100 0RF Rx Instructions: Test four times a day or as directed. (DME) blood-glucose meter [FreeStyle Lite Meter] Kit Qty: 1 0RF Rx Instructions: As Directed alcohol swabs Pads, Medicated 1 pad TOPICAL QIDACHS Qty: 100 0RF Rx Instructions: Use four times a day or as directed. (DME) pen needle, diabetic 32 gauge x 1/4 needle Qty: 100 0RF Rx Instructions: use with Lantus Solostar Pen once daily (DME) lancets [FreeStyle Lancets] 28 gauge misc Qty: 100 0RF Rx Instructions: Test four times a day or as directed. Continued trazodone 50 mg tablet 50 mg PO BEDTIME metoprolol succinate 50 mg tablet extended release 24 hr 50 mg PO DAILY thiamine HCl (vitamin B1) 100 mg tablet 100 mg PO DAILY folic acid 1 mg tablet 1 mg PO DAILY tamsulosin 0.4 mg Capsule 0.4 mg PO BEDTIME 30 Days Qty: 30 0RF magnesium oxide 400 mg (241.3 mg magnesium) Tablet 400 mg PO BIDPC 30 Days Qty: 60 0RF Discontinued lisinopril 2.5 mg tablet 2.5 mg PO DAILY Discharge Orders: Discharge Order (Routine); Ordered 12/01/23 Ordered By: Mario Flanagan Diet: Diabetic diet Activity on Discharge: As tolerated Stand Alone Forms: Patient Portal Discharge page Care Plan Goals: avoid diabetic complications Health Concerns: DM2 with hyperglycemia, new-onset acute kidney injury delusional parasitosis Plan of Treatment: Diabetic diet: avoid sugar and simple starches. Check blood glucose in the morning before breakfast [goal 80-140] and 2 hours after the largest meal of the day [goal 80-200] Take Lantus pen 20 units every morning PLUS metformin 1000 mg twice daily PLUS glipizide 10 mg twice daily PLUS Jardiance 10 mg once daily Increase lisinopril to 5 mg daily. Start risperidone 1 mg twice daily. Please follow up with your primary care doctor within 1 week. Return to the hospital if you experience recurrent or worsening symptoms. Assessment: See Discharge Summary. Patient Instructions: Glipizide (By mouth), Metformin (By mouth), Insulin Lispro Protamine/Insulin Lispro (By injection), Insulin Glargine (By injection), Empagliflozin (By mouth), Foot Care for People with Diabetes (GEN), Type 2 Diabetes in Adults: New Diagnosis (GEN), Basic Carbohydrate Counting (GEN), Meal Planning with the Plate Method (GEN), Meal Planning with Diabetes Exchanges (GEN), Diabetic Peripheral Neuropathy (GEN), Type 2 Diabetes in the Older Adult (GEN)
== END 2023-12-01 14:48 | disposition home health service (06) | DRG 638 ==
LOC: HO.ED 11-23 01:39 → HO.EDOVER 11-23 02:16 → HO.S3 11-23 14:35
PROVIDERS: Hospitalist; Admitting Provider Internal Medicine; Emergency Provider Emergency Medicine Emergency Medical Services; PCP Internal Medicine; Visit Provider Family Medicine
DX: E11.65 Type 2 diabetes mellitus with hyperglycemia (principal); I50.32 Chronic diastolic (congestive) heart failure; N17.9 Acute kidney failure, unspecified; R51.9 Headache, unspecified; F32.A Depression, unspecified; F10.91 Alcohol use, unspecified, in remission; F22 Delusional disorders; N40.0 Benign prostatic hyperplasia without lower urinary tract symptoms; K80.20 Calculus of gallbladder without cholecystitis without obstruction; I11.0 Hypertensive heart disease with heart failure; Z20.822 Contact with and (suspected) exposure to COVID-19; Z87.891 Personal history of nicotine dependence; Z79.899 Other long term (current) drug therapy
CPT/HCPCS: 0241U; 36415; 70450; 71045; 74176; 80048; 80053; 81001; 82010; 82607; 82746; 82803; 82947; 83036; 83735; 83880; 84443; 84484; 85025; 86780; 87389; 93005; 97161; 99285; J3411

== ENCOUNTER → 2023-11-22 22:28 | Outpatient (BNV) | payer MEDICARE, SELFPAY | PROVIDERS: Admitting Provider Internal Medicine; Emergency Provider Emergency Medicine Emergency Medical Services; Visit Provider Internal Medicine | DX: R00.1 Bradycardia, unspecified (principal) | CPT/HCPCS: 93010 ==

== ENCOUNTER 2023-11-23 02:12 | Outpatient (BNV) | payer MEDICARE, SELFPAY | END 2023-11-30 11:01 | PROVIDERS: Admitting Provider Internal Medicine; Emergency Provider Emergency Medicine Emergency Medical Services; PCP Internal Medicine; Visit Provider Internal Medicine Cardiovascular Disease | DX: R00.1 Bradycardia, unspecified (principal) | CPT/HCPCS: 93010 ==

== ENCOUNTER → 2023-11-23 02:12 | Outpatient (BNV) | payer MEDICARE, SELFPAY | PROVIDERS: Admitting Provider Internal Medicine; Emergency Provider Emergency Medicine Emergency Medical Services; PCP Internal Medicine; Visit Provider Social Worker | DX: F22 Delusional disorders (principal) | CPT/HCPCS: 99232 ==

== ENCOUNTER → 2023-11-23 02:12 | Outpatient (BNV) | payer MEDICARE, SELFPAY | PROVIDERS: Admitting Provider Internal Medicine; Emergency Provider Emergency Medicine Emergency Medical Services; Visit Provider Internal Medicine | DX: N17.9 Acute kidney failure, unspecified (principal); I10 Essential (primary) hypertension; E11.9 Type 2 diabetes mellitus without complications; F22 Delusional disorders | CPT/HCPCS: 99223; 99232; 99233; 99239; 99499; G0180 ==

== ENCOUNTER 2024-05-20 09:52 | Emergency (ER) | payer MEDICARE, SELFPAY ==
--- NOTE | ~2024-05-20 | CT_ITS ---
EXAMINATION: CTA OF THE HEAD AND NECK CLINICAL INFORMATION: Dizziness. Concern for cerebellar injury. COMPARISON: Head CT dated 11/29/2023. CT angiogram from 06/01/2021. TECHNIQUE: Test bolus sequences followed by intravenous administration 70 mL of Omnipaque 350. Helical imaging was performed in the axial plane from the mediastinum to the skull vertex. Delayed postcontrast imaging of the head was also performed. The data was processed at the senior nuclear medicine technologist's workstation for generation of MIP sequences. Three-dimensional volume rendered reformatted images were also generated at an offline 3-D workstation. Stenoses are assessed in accordance with NASCET criteria unless otherwise indicated. This CT examination was performed using dose optimization techniques as appropriate, variously including the following: *Automated exposure control *Adjustment of mA and/or kV according to patient size (this includes techniques or standardized protocols for targeted exams where dose is matched to indication/reason for exam; i.e. extremities or head) *Use of iterative reconstruction technique DLP: 2125 mGy-cm. FINDINGS: CT head: There is no evidence of acute intracranial hemorrhage or territorial infarction. There is chronic encephalomalacia in the right internal capsule and right mora radiata, also visible on prior imaging. Small chronic infarct also again seen in the left caudothalamic groove. No abnormal mass effect or midline shift is seen. No extra-axial fluid collections are identified. There is no abnormal enhancement. Mild generalized brain parenchymal volume loss again noted no evidence of hydrocephalus. The osseous structures and soft tissues are normal. The mastoid air cells and visualized portions of the paranasal sinuses are well aerated. CTA neck: The imaged aortic arch and origins of the great vessels are widely patent with mild atherosclerotic wall calcifications. The common carotid arteries are normal. The carotid bifurcations are patent with mild to moderate wall calcifications. No significant stenosis in the cervical internal carotid arteries. The vertebral arteries opacify normally and are of normal caliber. The soft tissues of the neck are unremarkable. Multilevel cervical spondylosis and reversal of normal cervical lordosis again evident with a rightward curvature of the cervical spine. Atlantooccipital assimilation and basilar invagination are also again visualized without abnormal widening of the predental space. The imaged portions of the lungs are clear. CTA head: There is significant narrowing at the skull base where the right vertebral artery passes into foramen magnum as a result of congenital atlantooccipital assimilation. Bony spurring impresses upon the nondominant right vertebral artery and posterior inferior cerebellar artery and its branch point, otherwise without change. The intradural left vertebral artery and basilar artery are normal. The posterior cerebral arteries are widely patent. The internal carotid arteries are of normal caliber. The SATNAM and MCA vascular complexes bilaterally are normal. The venous sinuses opacify normally. CT/CT angio head neck IMPRESSION: Bony spurring from degenerative changes and atlantooccipital assimilation resulting in narrowing of the canal at the site where the nondominant right vertebral artery passes through foramen magnum. This site also demarcates where the posterior inferior cerebellar arterial branch arises from the vessel. No evidence of vascular injury or dissection. Otherwise, no significant stenosis or occlusion in the cervical or intracranial vasculature at the level of the [place]. Chronic developmental basilar invagination. Electronically signed by: Holland Larry MD 05/20/2024 12:56 PM EDT RP
--- NOTE | ~2024-05-20 | XR_ITS ---
EXAMINATION: XR CHEST CLINICAL INFORMATION: Chest pain. COMPARISON: November 22, 2023 TECHNIQUE: 2 views of the chest were obtained. FINDINGS: The lungs are moderately expanded. Thoracic aorta remains tortuous and dilated. No focal consolidation. No pleural effusion. Cardiac silhouette is stable. XR/XR chest 2V IMPRESSION: Stable examination. No acute abnormality. Electronically signed by: Ermias Hernández MD 05/20/2024 11:37 AM EDT
[2024-05-20 09:58] VITALS: BP 127/68; BP 152/79; PULSE 57; PULSE 60; RESP 15; TEMP 36.6; O2SAT 98; BMI 27.2
--- NOTE | 2024-05-20 09:59 | ECG_ITS ---
Test Reason : CP Blood Pressure : / mmHG Vent. Rate : 052 BPM Atrial Rate : 052 BPM P-R Int : 182 ms QRS Dur : 120 ms QT Int : 452 ms P-R-T Axes : 019 -21 102 degrees QTc Int : 420 ms Sinus bradycardia with sinus arrhythmia with occasional Premature ventricular complexes Left ventricular hypertrophy with QRS widening and repolarization abnormality ( R in aVL ) Abnormal ECG When compared with ECG of 30-NOV-2023 11:01, Premature ventricular complexes are now Present Referred By: Cecelia Herman Electronically Signed By:CELESTE DOYLE
--- NOTE | 2024-05-20 09:59 | ED_ITS ---
HPI - General Adult General Chief complaint: General Medical Stated complaint: DIZZY,CP,INCR CONFUSION PER EMS Time Seen by Provider: 05/20/24 09:59 Source: patient and EMS Mode of arrival: EMS Limitations: no limitations History of Present Illness ED Provider: Cecelia Herman PA-C HPI narrative: Patient is a 73 year old assigned male at with a history of DM, CHF, atrial fib (on Plavix), and delusions of parasitosis presenting to the emergency department today with chest pain, dizziness, and increased confusion. Patient states that he has been having chest pain and worsening dizziness that he feels is unsteadiness on his feet. Patient denies any lightheadedness, abdominal pain, nausea, vomiting, fever, chills, blurry vision, double vision, loss of vision, difficulty breathing, shortness of breath, back pain, night sweats, pain with urination, increased urinary frequency, increased urinary urgency, blood in his urine or stool, syncope or a near syncopal episode, recent trauma or falls, bowel incontinence, bladder incontinence, or any other complaints at this time. Relieving factors: none Exacerbating factors: none Associated symptoms: denies other symptoms Treatments prior to arrival: none Related Data Home Medications ?Medication ?Instructions ?Recorded ?Confirmed folic acid 1 mg tablet 1 mg PO DAILY 11/23/23 11/23/23 metoprolol succinate 50 mg 50 mg PO DAILY 11/23/23 11/23/23 tablet,extended release 24 hr thiamine HCl (vitamin B1) 100 mg 100 mg PO DAILY 11/23/23 11/23/23 tablet trazodone 50 mg tablet 50 mg PO BEDTIME 11/23/23 11/23/23 Previous Rx's ?Medication ?Instructions ?Recorded magnesium oxide 400 mg (241.3 mg 400 mg PO BIDPC 30 days #60 tabs 04/20/23 magnesium) tablet tamsulosin 0.4 mg capsule 0.4 mg PO BEDTIME 30 days #30 caps 04/20/23 alcohol swabs 1 pad topical QIDACHS #100 ea 12/01/23 empagliflozin 10 mg tablet 10 mg PO DAILY #30 tabs 12/01/23 (Jardiance) glipizide 10 mg tablet 10 mg PO BIDWM #60 tabs 12/01/23 insulin glargine 100 unit/mL (3 20 unit (0.2 mL) subcut QAM #15 mL 12/01/23 mL) subcutaneous pen (Lantus Solostar U-100 Insulin) lancets 28 gauge (FreeStyle #100 ea 12/01/23 Lancets) lidocaine 5 % topical ointment 1 appl topical Q6H PRN arthritis 12/01/23 pain #50 grams lisinopril 5 mg tablet 5 mg PO DAILY #30 tabs 12/01/23 metformin 1,000 mg tablet 1,000 mg PO BIDWM #60 tabs 12/01/23 pen needle, diabetic 32 gauge x #100 ea 12/01/23 1/ risperidone 1 mg tablet 1 mg PO BID #60 tabs 12/01/23 Allergies Allergy/AdvReac Type Severity Reaction Status Date / Time meperidine [From DEMEROL] Allergy Unknown UNKNOWN Verified 05/20/24 10:00 Review of Systems 2 Constitutional: Constitutional: Reports no additional constitutional complaints, Denies chills, Denies fever(s) and Denies night sweats Eyes: Eyes: Reports no additional eye complaints, Denies blurry vision, Denies change in vision, Denies diplopia, Denies eye discharge, Denies loss of vision and Denies eye pain ENT: Reports dizziness Cardiovascular: Cardiovascular: Reports no additional cardiovascular complaints, Reports chest pain, Denies lightheadedness, Denies Loss of Consciousness and Denies dyspnea Respiratory: Respiratory: Reports no additional respiratory complaints and Denies dyspnea Gastrointestinal: Gastrointestinal: Reports no additional gastrointestinal complaints, Denies abdominal pain, Denies melena, Denies hematochezia, Denies change in bowel habits and Denies change in stool character Genitourinary: Genitourinary: Reports no additional male genitourinary complaints, Denies hematuria, Denies oliguria, Denies difficulty urinating, Denies dysuria, Denies urinary frequency, Denies urinary hesitancy, Denies urinary incontinence and Denies urinary urgency Musculoskeletal: Musculoskeletal: Reports no additional musculoskeletal complaints, Denies numbness and Denies tingling Neurologic: Reports dizziness, Denies loss of vision, Denies numbness and Denies tingling Psychiatric: Psychiatric: Reports no additional psychiatric complaints Endocrine: Endocrine: Reports no additional endocrine complaints Hematologic/Lymphatic: Hematologic/Lymphatic: Reports no additional hematologic/lymphatic complaints Allergic/Immunologic: Allergic/Immunologic: Reports no additional allergic/immunologic complaints PMFSH Past Medical History Attestation statement: The following information was validated with the patient. 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 CHF (congestive heart failure) Hemorrhagic stroke Cholelithiasis Alcohol use disorder HTN (hypertension) Surgical History No pertinent past surgical history Social History Social History Household Members: None Housing: Apartment Do you presently have visiting nurse or other home services: No Alcohol intake: current Alcohol intake frequency: 0-2 drinks per day Alcohol type: hard liquor Comment: pt continues refusing bed alarm; chair alarm on pt in bed Patient Tobacco Use Status: Former Tobacco user Smoked in Last 30 Days: No Second Hand Smoke Exposure: No Use of substances other than those prescribed or required for medical reasons: No Advance Directives: Yes Advance Directives on File: Yes Advance Directives Date on File: 04/12/23 Do you have a plan to hurt others: No Plan service: No Current occupational status: disabled Physical Exam ED Vital Signs: Vital Signs - 24 hr 05/20/24 09:58 05/20/24 12:00 05/20/24 14:12 Temperature 97.9 F 98 F Pulse Rate 57 49 L 61 Respiratory Rate 15 18 18 Blood Pressure 152/79 H 144/74 H 134/80 Pulse Oximetry 98 97 98 Oxygen Delivery Method Room Air Room Air Room Air 05/20/24 15:06 Temperature 97.9 F Pulse Rate 82 Respiratory Rate 18 Blood Pressure 164/80 H Pulse Oximetry 98 Oxygen Delivery Method Room Air BMI result Body Mass Index 27.2 Const General: cooperative, no acute distress, alert and awake Nutritional Appearance: well nourished Orientation/consciousness: patient oriented x3 Limitations: no limitations HENMT Head: Yes normal to inspection and Yes atraumatic Ears: hearing grossly normal bilaterally and external ears normal General nose exam: Normal external nose present, no nasal discharge noted and no epistaxis Face and sinus: Yes normal facial exam, No abrasion and No laceration Mouth: Normal oral and palatal mucosa present, no drooling and no muffled voice Eyes General: appearance normal, both eyes and all related structures Periorbital: periorbital findings normal Eyelids: Yes eyelids normal Conjunctivae: conjunctivae normal Pupils: Equal, round and reactive pupils present EOM: EOMs intact bilaterally Neck Neck: Yes normal visual inspection, Yes full ROM and Yes no lymphadenopathy Chest Chest palpation & inspection: normal inspection of the chest Resp Effort & Inspection: normal respiratory effort and able to speak in complete sentences GI Inspection: Yes normal to inspection Neuro General: patient oriented x3 and moves all extremities Cranial nerves: Yes Equal, round and reactive pupils present Cognition (Neuro): normal cognition Extrem General: Yes normal to inspection, Yes full ROM and Yes capillary refill normal Psych Appearance: grossly normal Mental Status: mental status grossly normal Affect: normal affect Attitude: cooperative Thought process: Normal thought process present Thought content: Normal thought content present Insight: Good insight present (Psych) NIH Stroke Scale Internal: Initial- Upon Arrival Level of Consciousness: Alert Level of Consciousness Questions: Answers both questions correctly Level of Consciousness Commands: Performs both tasks correctly Best Gaze: Normal Visual: No visual loss Facial Palsy: Normal Motor Arm (Right): No drift Motor Arm (Left): No drift Motor Leg (Right): No drift Motor Leg (Left): No drift Limb Ataxia: Absent Sensory: Normal Best Language: No aphasia Dysarthia: Normal Extinction and Inattention: No abnormality Score: 0 Medications Administered Discontinued Medications Generic Name Dose Route Start Last Admin Trade Name Freq PRN Reason Stop Dose Admin Sodium Chloride 1,000 mls @ 999 mls/hr 05/20/24 13:15 05/20/24 14:50 Ns IV 05/20/24 14:15 Infused .Q1H1M HERACLIO Infusion Iohexol 100 ml 05/20/24 11:59 05/20/24 11:59 Iohexol 350 Mg/Ml 100 Ml Infus..Btl IV 05/20/24 12:00 70 ml ONCE ONE Administration Medical Decision Making Medical Decision Making [facility] Narrative: Patient is a 73 year old assigned male at with a history of DM, CHF, atrial fib (on Plavix), and delusions of parasitosis presenting to the emergency department today with dizziness and chest pain. Patient's physical exam was unremarkable. Patient's blood work was unremarkable. Patient's urine showed no acute process. Patient's EKG was unremarkable. Patient's chest x-ray and head/neck CTA showed no acute process. I explained my physical exam findings as well as all test results to the patient. I answered all questions asked by the patient. I stressed the importance of the patient taking his medication as directed (either prescribed or as the over the counter packaging recommends). I stressed the importance of the patient following up with his primary care provider. I stressed the importance of the patient returning to the emergency department immediately if his symptoms were to worsen or if he were to develop any dizziness, shortness of breath, difficulty breathing, chest pain, blurry vision, loss of vision, nausea, vomiting, abdominal pain, fever, chills, back pain, or any other complaints. Patient verbalized agreement and understanding with this treatment plan and discharge. Differential Diagnosis Differential Diagnoses: The differential diagnosis associated with the presentation includes Chest pain NSTEMI STEMI Dizziness CVA Admission/Observation Consideration of admission/observation: Escalation of care including admission/observation considered Patient would have been admitted to the hospital had his work up had any findings where hospital admission was appropriate and his clinical presentation warranted hospital admission. Lab Data [facility] Lab Attestation statement: I reviewed the patient's lab results. My interpretation of these results are in the [facility] Rationale portion of this note. 05/20/24 10:18 05/20/24 10:18 Labs: Lab Results 05/20/24 05/20/24 05/20/24 Range/Units 10:05 10:18 10:24 WBC 7.3 (4.8-10.8) X10*3/uL RBC 4.41 L (4.60-5.80) X10*6/uL Hgb 14.4 (14.0-18.0) g/dl Hct 40.8 L (42.0-52.0) % MCV 92.5 (80.0-98.0) fL MCH 32.7 (27.0-33.0) pg MCHC 35.3 (31.0-36.0) g/dl RDW 12.9 (11.0-16.0) % Plt Count 200 (160-400) X10*3/uL MPV 8.7 L (9.4-12.4) fL Immature Gran % (Auto) 0.1 (0.0-0.4) % Neut % (Auto) 55.6 (45-73) % Lymph % (Auto) 32.2 (20-40) % [place] % (Auto) 9.8 (2-11) % Eos % (Auto) 1.9 (0-4) % Baso % (Auto) 0.4 (0-2) % Lymph # (Auto) 2.3 (1.2-4.9) X10*3/uL [place] # (Auto) 0.7 (0.1-1.2) X10*3/uL Eos # (Auto) 0.1 (0.0-0.4) X10*3/uL Baso # (Auto) 0.0 (0.0-0.2) X10*3/uL Abs Immat Gran (auto) 0.01 (0.00-0.03) X10*3/uL Absolute Neuts (auto) 4.0 (2.0-8.3) x10*3/uL Absolute Nucleated RBC 0.000 (0.0-0.012) X10*3/uL Nucleated RBC % (auto) 0.0 (0.0-0.2) /100WBC PT 13.3 (11.1-13.3) SEC INR 1.1 (0.9-1.1) APTT 25.5 L (26.0-36.8) SEC Sodium 137 (135-145) mmol/L Potassium 4.3 (3.3-5.1) mmol/L Chloride 104 (96-108) mmol/L Carbon Dioxide 24 (22-29) mmol/L Anion Gap 13 (12-20) BUN 18 H (9-16) mg/dL Creatinine 0.97 (0.5-1.4) mg/dL Estim Creat Clear Calc 68.9 Estimated GFR > 60 POC Glucose 98 (60-115) mg/dL Random Glucose 110 (60-115) mg/dL Calcium 9.9 (8.4-10.2) mg/dL Magnesium 1.6 (1.6-2.6) mg/dL Total Bilirubin 0.5 (0.0-1.0) mg/dL AST 19 (5-37) U/L ALT 17 (0-40) U/L Alkaline Phosphatase 55 (39-117) U/L Troponin I High Sens 4.6 D (<3.5-35.0) ng/L Total Protein 7.2 (6.5-8.0) g/dL Albumin 4.2 (3.5-5.0) g/dL Urine Color Urine Appearance Urine pH (5.0-9.0) Ur Specific [place] (1.005-1.025) Urine Protein (Neg-Trace) mg/dL Urine Glucose (UA) (Negative) mg/dL Urine Ketones (Negative) mg/dL Urine Blood (Negative) Urine Nitrite (Negative) Ur Leukocyte Esterase (Negative) Urine RBC (0-2) /HPF Urine WBC (0-5) /HPF Ur Squamous Epith Cells (0-2) /HPF Urine Bacteria (None Seen) Hyaline Casts (0-2) /LPF Influenza Type A (PCR) NEGATIVE (Negative) Influenza Type B (PCR) NEGATIVE (Negative) RSV RNA Qual (PCR) NEGATIVE (Negative) SARS-CoV-2 RNA (RT-PCR) NEGATIVE (Negative) 05/20/24 05/20/24 Range/Units 13:43 14:10 WBC (4.8-10.8) X10*3/uL RBC (4.60-5.80) X10*6/uL Hgb (14.0-18.0) g/dl Hct (42.0-52.0) % MCV (80.0-98.0) fL MCH (27.0-33.0) pg MCHC (31.0-36.0) g/dl RDW (11.0-16.0) % Plt Count (160-400) X10*3/uL MPV (9.4-12.4) fL Immature Gran % (Auto) (0.0-0.4) % Neut % (Auto) (45-73) % Lymph % (Auto) (20-40) % [place] % (Auto) (2-11) % Eos % (Auto) (0-4) % Baso % (Auto) (0-2) % Lymph # (Auto) (1.2-4.9) X10*3/uL [place] # (Auto) (0.1-1.2) X10*3/uL Eos # (Auto) (0.0-0.4) X10*3/uL Baso # (Auto) (0.0-0.2) X10*3/uL Abs Immat Gran (auto) (0.00-0.03) X10*3/uL Absolute Neuts (auto) (2.0-8.3) x10*3/uL Absolute Nucleated RBC (0.0-0.012) X10*3/uL Nucleated RBC % (auto) (0.0-0.2) /100WBC PT (11.1-13.3) SEC INR (0.9-1.1) APTT (26.0-36.8) SEC Sodium (135-145) mmol/L Potassium (3.3-5.1) mmol/L Chloride (96-108) mmol/L Carbon Dioxide (22-29) mmol/L Anion Gap (12-20) BUN (9-16) mg/dL Creatinine (0.5-1.4) mg/dL Estim Creat Clear Calc Estimated GFR POC Glucose (60-115) mg/dL Random Glucose (60-115) mg/dL Calcium (8.4-10.2) mg/dL Magnesium (1.6-2.6) mg/dL Total Bilirubin (0.0-1.0) mg/dL AST (5-37) U/L ALT (0-40) U/L Alkaline Phosphatase (39-117) U/L Troponin I High Sens 5.6 (<3.5-35.0) ng/L Total Protein (6.5-8.0) g/dL Albumin (3.5-5.0) g/dL Urine Color Yellow Urine Appearance Clear Urine pH 5.5 (5.0-9.0) Ur Specific [place] >= 1.030 H (1.005-1.025) Urine Protein Negative (Neg-Trace) mg/dL Urine Glucose (UA) Negative (Negative) mg/dL Urine Ketones Negative (Negative) mg/dL Urine Blood Negative (Negative) Urine Nitrite Negative (Negative) Ur Leukocyte Esterase Trace H (Negative) Urine RBC 0-2 (0-2) /HPF Urine WBC 0-5 (0-5) /HPF Ur Squamous Epith Cells 0-2 (0-2) /HPF Urine Bacteria None Seen (None Seen) Hyaline Casts 0-2 (0-2) /LPF Influenza Type A (PCR) (Negative) Influenza Type B (PCR) (Negative) RSV RNA Qual (PCR) (Negative) SARS-CoV-2 RNA (RT-PCR) (Negative) Independent Interpretation I performed an independent interpretation of an: EKG, Plain X-Ray and CT Scan Interpretation: My interpretation is in agreement with the radiologist's impression of these imaging studies. L EXAMINATION: XR CHEST CLINICAL INFORMATION: Chest pain. COMPARISON: November 22, 2023 TECHNIQUE: 2 views of the chest were obtained. FINDINGS: The lungs are moderately expanded. Thoracic aorta remains tortuous and dilated. No focal consolidation. No pleural effusion. Cardiac silhouette is stable. XR/XR chest 2V IMPRESSION: Stable examination. No acute abnormality. Electronically signed by: Ermias Hernández MD 05/20/2024 11:37 AM EDT RP Dictated By: Yonas Hernández MD Signed By: Electronically signed by Yonas Hernández MD 05/20/24 1137 EXAMINATION: CTA OF THE HEAD AND NECK CLINICAL INFORMATION: Dizziness. Concern for cerebellar injury. COMPARISON: Head CT dated 11/29/2023. CT angiogram from 06/01/2021. TECHNIQUE: Test bolus sequences followed by intravenous administration 70 mL of Omnipaque 350. Helical imaging was performed in the axial plane from the mediastinum to the skull vertex. Delayed postcontrast imaging of the head was also performed. The data was processed at the sleep technologist's workstation for generation of MIP sequences. Three-dimensional volume rendered reformatted images were also generated at an offline 3-D workstation. Stenoses are assessed in accordance with NASCET criteria unless otherwise indicated. This CT examination was performed using dose optimization techniques as appropriate, variously including the following: *Automated exposure control *Adjustment of mA and/or kV according to patient size (this includes techniques or standardized protocols for targeted exams where dose is matched to indication/reason for exam; i.e. extremities or head) *Use of iterative reconstruction technique DLP: 2125 mGy-cm. FINDINGS: CT head: There is no evidence of acute intracranial hemorrhage or territorial infarction. There is chronic encephalomalacia in the right internal capsule and right mora radiata, also visible on prior imaging. Small chronic infarct also again seen in the left caudothalamic groove. No abnormal mass effect or midline shift is seen. No extra-axial fluid collections are identified. There is no abnormal enhancement. Mild generalized brain parenchymal volume loss again noted no evidence of hydrocephalus. The osseous structures and soft tissues are normal. The mastoid air cells and visualized portions of the paranasal sinuses are well aerated. CTA neck: The imaged aortic arch and origins of the great vessels are widely patent with mild atherosclerotic wall calcifications. The common carotid arteries are normal. The carotid bifurcations are patent with mild to moderate wall calcifications. No significant stenosis in the cervical internal carotid arteries. The vertebral arteries opacify normally and are of normal caliber. The soft tissues of the neck are unremarkable. Multilevel cervical spondylosis and reversal of normal cervical lordosis again evident with a rightward curvature of the cervical spine. Atlantooccipital assimilation and basilar invagination are also again visualized without abnormal widening of the predental space. The imaged portions of the lungs are clear. CTA head: There is significant narrowing at the skull base where the right vertebral artery passes into foramen magnum as a result of congenital atlantooccipital assimilation. Bony spurring impresses upon the nondominant right vertebral artery and posterior inferior cerebellar artery and its branch point, otherwise without change. The intradural left vertebral artery and basilar artery are normal. The posterior cerebral arteries are widely patent. The internal carotid arteries are of normal caliber. The SATNAM and MCA vascular complexes bilaterally are normal. The venous sinuses opacify normally. CT/CT angio head neck IMPRESSION: Bony spurring from degenerative changes and atlantooccipital assimilation resulting in narrowing of the canal at the site where the nondominant right vertebral artery passes through foramen magnum. This site also demarcates where the posterior inferior cerebellar arterial branch arises from the vessel. No evidence of vascular injury or dissection. Otherwise, no significant stenosis or occlusion in the cervical or intracranial vasculature at the level of the [place]. Chronic developmental basilar invagination. Electronically signed by: Cory Sampson MD 05/20/2024 12:56 PM EDT Dictated By: CORY SAMPSON MD Signed By: Electronically signed by CORY SAMPSON MD 05/20/24 1246 Vent. Rate: 052 BPM Atrial Rate: 052 BPM P-R Int: 182 ms QRS Dur: 120 ms QT Int: 452 ms P-R-T Axes: 019 -21 102 degrees QTc Int: 420 ms Sinus bradycardia with sinus arrhythmia with occasional Premature ventricularcomplexes Left ventricular hypertrophy with QRS widening and repolarization abnormality (R in aVL) Abnormal ECG When compared with ECG of 30-NOV-2023 11:01, Premature ventricular complexes are now Present DD/ 1015 Radiology Impression Discussion of test interpretation with radiology: I have reviewed the radiologist's reading. Independent Historian Clinical information obtained from an independent historian. History obtained from or confirmed by: EMS (EMS provided additional history and confirmed the history provided by the patient.) Chronic Conditions Patient?s care impacted by: Diabetes Discharge Plan Discharge Clinical Impression: Dizziness, Atypical chest pain Patient Disposition: Home, Self-Care Instructions: Chest Pain (ED), Dizziness (ED) Additional Instructions: Follow up with your primary care provider. Return to the emergency department immediately if your symptoms worsen or if you develop any dizziness, shortness of breath, difficulty breathing, chest pain, blurry vision, loss of vision, nausea, vomiting, abdominal pain, fever, chills, back pain, or any other complaints. Prescriptions: No Action trazodone 50 mg tablet 50 mg PO BEDTIME metoprolol succinate 50 mg tablet extended release 24 hr 50 mg PO DAILY thiamine HCl (vitamin B1) 100 mg tablet 100 mg PO DAILY folic acid 1 mg tablet 1 mg PO DAILY lisinopril 5 mg Tablet 5 mg PO DAILY Qty: 30 0RF Protocol: Hold for SBP< HOLD for SBP < : 90 risperidone 1 mg Tablet 1 mg PO BID Qty: 60 0RF Jardiance 10 mg Tablet 10 mg PO DAILY Qty: 30 0RF glipizide 10 mg Tablet 10 mg PO BIDWM Qty: 60 0RF metformin 1,000 mg Tablet 1,000 mg PO BIDWM Qty: 60 0RF lidocaine 5 % Ointment 1 appl topical Q6H PRN (Reason: arthritis pain) Qty: 50 0RF Protocol: Apply to: Apply to: arthritis pain insulin glargine [Lantus Solostar U-100 Insulin] 100 unit/mL (3 mL) insulin pen 20 unit subcut QAM Qty: 15 0RF alcohol swabs Pads, Medicated 1 pad TOPICAL QIDACHS Qty: 100 0RF Rx Instructions: Use four times a day or as directed. (DME) pen needle, diabetic 32 gauge x 1/4 needle Qty: 100 0RF Rx Instructions: use with Lantus Solostar Pen once daily (DME) lancets [FreeStyle Lancets] 28 gauge misc Qty: 100 0RF Rx Instructions: Test four times a day or as directed. tamsulosin 0.4 mg Capsule 0.4 mg PO BEDTIME 30 Days Qty: 30 0RF magnesium oxide 400 mg (241.3 mg magnesium) Tablet 400 mg PO BIDPC 30 Days Qty: 60 0RF Referrals: [facility] [place] Group] (Call to establish and follow up with a primary care provider. If you already have a primary care provider, please follow up with them.) [facility] [Provider Group] (Call to establish and follow up with a primary care provider. If you already have a primary care provider, please follow up with them.) [facility] [Provider Group] (Call to establish and follow up with a primary care provider. If you already have a primary care provider, please follow up with them.) Interventions: ED Discharge Assessment Last Done: 05/20/24 15:06 Discharge Date/Time: 05/20/24 15:18 Print Language: [place]raini
[2024-05-20 10:21] LABS: MANUAL DIFF FLAG NO
[2024-05-20 10:26] LABS: Glucose, Whole Blood 98 mg/dL (60-115)
[2024-05-20 10:26] LABS: Basophils Percent Auto 0.4 % (0-2); Eosinophils Absolute Auto 0.1 X10*3/uL (0.0-0.4); Eosinophils Percent Auto 1.9 % (0-4); Hematocrit 40.8 % (42.0-52.0); Hemoglobin 14.4 g/dl (14.0-18.0); Imm Gran Abs Auto 0.01 X10*3/uL (0.00-0.03); Imm Gran Pct Auto 0.1 % (0.0-0.4); Lymphocytes Absolute Auto 2.3 X10*3/uL (1.2-4.9); Lymphocytes Percent Auto 32.2 % (20-40); Mean Corpuscular HGB Conc 35.3 g/dl (31.0-36.0); Mean Corpuscular Hemoglobin 32.7 pg (27.0-33.0); Mean Corpuscular Volume 92.5 fL (80.0-98.0); Mean Platelet Volume 8.7 fL (9.4-12.4); Monocytes Absolute Auto 0.7 X10*3/uL (0.1-1.2); Monocytes Percent Auto 9.8 % (2-11); Neutrophils Percent Auto 55.6 % (45-73); Platelet Count 200 X10*3/uL (160-400); Red Blood Count 4.41 X10*6/uL (4.60-5.80); Red Cell Distribution Width 12.9 % (11.0-16.0); White Blood Count 7.3 X10*3/uL (4.8-10.8)
[2024-05-20 10:31] LABS: INTERNATIONAL NORM RATIO 1.1 (0.9-1.1); Prothrombin Time 13.3 SEC (11.1-13.3)
[2024-05-20 10:33] LABS: Partial Thromboplastin Time 25.5 SEC (26.0-36.8)
--- NOTE | 2024-05-20 10:54 | PC.NURSE ---
Pt biba from home for increased confusion/cp starting early this morning. Pt states the CP feels more like a musculoskeletal pain, denies recent twisting/pulling/straining of abdominal muscles. A/ox3, respirations even and unlabored, no increased wob/sob noted, lung sounds cta bilaterally, s1 and s2 heard, pt sinus juni on color television console monitor with occasional PVCs, pt states the CP subsides at rest and increases on exertion, sharp, non-radiating, hx of a-fib on thinners, abdomen soft, non-tender. Denies n/v/sob. Endorses dizziness/vertigo as if he's rocking on a boat. Steady gait while standing, slight dizziness while standing. Plan for labs, EKG, and Ct head/neck. Call [facility] within reach, all needs met at this time, pt aware of plan of care.
[2024-05-20 11:10] LABS: Alanine Aminotransferase 17 U/L (0-40); Albumin Level 4.2 g/dL (3.5-5.0); Alkaline Phosphatase 55 U/L (39-117); Anion Gap 13 (12-20); Aspartate Amino Transferase 19 U/L (5-37); Bilirubin Total 0.5 mg/dL (0.0-1.0); Blood Urea Nitrogen 18 mg/dL (9-16); Calcium 9.9 mg/dL (8.4-10.2); Carbon Dioxide 24 mmol/L (22-29); Chloride 104 mmol/L (96-108); Creatinine Clr Calc Pharmacy 68.9; Estimated Glomerular Filt Rate > 60; Glucose Random 110 mg/dL (60-115); Magnesium 1.6 mg/dL (1.6-2.6); Potassium 4.3 mmol/L (3.3-5.1); Sodium 137 mmol/L (135-145); Total Protein 7.2 g/dL (6.5-8.0)
[2024-05-20 11:12] LABS: Troponin-I High Sensitivity 4.6 ng/L (<3.5-35.0)
[2024-05-20 11:22] LABS: Influenza A PCR NEGATIVE (Negative); Influenza B PCR NEGATIVE (Negative); Resp Syncy Virus RNA Qual PCR NEGATIVE (Negative); SARS COV2 PCR INHOUSE NEGATIVE (Negative)
[2024-05-20] MEDS: iohexoL 350 MG/ML 100 ML INFUS..BTL IV (11:59)
[2024-05-20 12:00] VITALS: BP 144/74; PULSE 49; RESP 18; O2SAT 97
[2024-05-20] MEDS: 0.9 % Sodium Chloride 1,000 ML 999 ML IV (13:12)
[2024-05-20 14:10] LABS: Troponin-I High Sensitivity 5.6 ng/L (<3.5-35.0)
[2024-05-20 14:12] VITALS: BP 134/80; PULSE 61; RESP 18; TEMP 36.6; O2SAT 98
[2024-05-20 14:29] LABS: Appearance Urine Clear; Color Urine Yellow; Glucose Urine UA Negative (Negative); Leukocyte Esterase Urine Trace (Negative); Nitrite Urine Negative (Negative); PH 5.5 (5.0-9.0); Specific Gravity - Urine >= 1.030 (1.005-1.025); UMIC TRIGGER UACC YES; Urine Blood Negative (Negative); Urine Ketones Negative (Negative); Urine Protein Negative (Neg-Trace)
[2024-05-20 14:34] LABS: Bacteria Urine None Seen (None Seen); Hyaline Casts Urine 0-2 /LPF (0-2); RBC Urine 0-2 /HPF (0-2); Squamous Epithelial Cell Urine 0-2 /HPF (0-2); WBC Urine 0-5 /HPF (0-5)
[2024-05-20 15:06] VITALS: BP 164/80; PULSE 82; RESP 18; TEMP 36.6; O2SAT 98
== END 2024-05-20 15:18 | disposition home or self-care (01) ==
PROVIDERS: Physician Assistant Medical; Emergency Provider Emergency Medicine; PCP Internal Medicine Nephrology
DX: R42 Dizziness and giddiness (principal); R07.89 Other chest pain; E11.9 Type 2 diabetes mellitus without complications; I48.91 Unspecified atrial fibrillation; Z79.01 Long term (current) use of anticoagulants; Z03.818 Encounter for observation for suspected exposure to other biological agents ruled out; Z79.899 Other long term (current) drug therapy
CPT/HCPCS: 0241U; 36415; 70496; 70498; 71046; 80053; 81001; 82947; 83735; 84484; 85025; 85610; 85730; 93005; 96360; 96361; 99284; 99285; Q9967

== ENCOUNTER 2024-07-26 13:18 | Emergency (ER) | payer MEDICARE, SELFPAY ==
--- NOTE | 2024-07-26 13:24 | ED.GENADULT ---
HPI - General Adult General Chief complaint: Urogenital-Male Stated complaint: prospate issue Time Seen by Provider: 07/26/24 13:46 Source: patient, RN notes reviewed and old records reviewed Mode of arrival: ambulatory History of Present Illness ED Provider: Katy Guzmán PA-C HPI narrative: 74-year-old male with a past medical history BPH, CHF, hemorrhagic stroke, cholelithiasis, ETOH use, HTN, presenting to the ED complaining of issues with prostate and bladder, c/o urinary hesitancy /dribbling with incomplete emptying and intermittent dysuria x awhile. States used to follow with urology and [place] however has not seen them for months. Denies nausea, vomiting, abdominal pain, flank pain, hematuria. Related Data Home Medications ?Medication ?Instructions ?Recorded ?Confirmed folic acid 1 mg tablet 1 mg PO DAILY 11/23/23 11/23/23 metoprolol succinate 50 mg 50 mg PO DAILY 11/23/23 11/23/23 tablet,extended release 24 hr thiamine HCl (vitamin B1) 100 mg 100 mg PO DAILY 11/23/23 11/23/23 tablet trazodone 50 mg tablet 50 mg PO BEDTIME 11/23/23 11/23/23 Previous Rx's ?Medication ?Instructions ?Recorded magnesium oxide 400 mg (241.3 mg 400 mg PO BIDPC 30 days #60 tabs 04/20/23 magnesium) tablet tamsulosin 0.4 mg capsule 0.4 mg PO BEDTIME 30 days #30 caps 04/20/23 alcohol swabs 1 pad topical QIDACHS #100 ea 12/01/23 empagliflozin 10 mg tablet 10 mg PO DAILY #30 tabs 12/01/23 (Jardiance) glipizide 10 mg tablet 10 mg PO BIDWM #60 tabs 12/01/23 insulin glargine 100 unit/mL (3 20 unit (0.2 mL) subcut QAM #15 mL 12/01/23 mL) subcutaneous pen (Lantus Solostar U-100 Insulin) lancets 28 gauge (FreeStyle #100 ea 12/01/23 Lancets) lidocaine 5 % topical ointment 1 appl topical Q6H PRN arthritis 12/01/23 pain #50 grams lisinopril 5 mg tablet 5 mg PO DAILY #30 tabs 12/01/23 metformin 1,000 mg tablet 1,000 mg PO BIDWM #60 tabs 12/01/23 pen needle, diabetic 32 gauge x #100 ea 12/01/23 1/ risperidone 1 mg tablet 1 mg PO BID #60 tabs 12/01/23 Allergies Allergy/AdvReac Type Severity Reaction Status Date / Time meperidine [From DEMEROL] Allergy Unknown UNKNOWN Verified 07/26/24 13:29 Review of Systems Review of Systems: Yes all other systems are reviewed and are negative Constitutional: Constitutional: Reports as per [facility] Past Medical History Attestation statement: The following information was validated with the patient. Source: old records reviewed Medical History BPH loc w urin obs/LUTS Severe recurrent major depressive disorder with psychosis CHF (congestive heart failure) Hemorrhagic stroke Cholelithiasis Alcohol use disorder HTN (hypertension) Surgical History No pertinent past surgical history Social History Social History Household Members: None Housing: Apartment Do you presently have visiting nurse or other home services: No Alcohol intake: current Alcohol intake frequency: 0-2 drinks per day Alcohol type: hard liquor Comment: pt continues refusing bed alarm; chair alarm on pt in bed Patient Tobacco Use Status: Former Tobacco user Smoked in Last 30 Days: No Second Hand Smoke Exposure: No Use of substances other than those prescribed or required for medical reasons: No Advance Directives: Yes Advance Directives on File: Yes Advance Directives Date on File: 04/12/23 service: No Current occupational status: disabled Physical Exam ED Vital Signs: Vital Signs - 24 hr 07/26/24 13:27 07/26/24 15:10 07/26/24 17:50 Temperature 98 F 98.2 F 98.2 F Pulse Rate 79 62 74 Respiratory Rate 16 16 16 Blood Pressure 123/68 145/82 H 156/92 H Pulse Oximetry 97 96 96 Oxygen Delivery Method Room Air Room Air Room Air BMI result Body Mass Index 27.2 Const General: cooperative, healthy appearing and no acute distress Orientation/consciousness: patient oriented x3 Limitations: no limitations HENMT Head: Yes normal to inspection and Yes atraumatic Ears: hearing grossly normal bilaterally General nose exam: Normal external nose present Face and sinus: Yes normal facial exam Eyes General: appearance normal, both eyes and all related structures EOM: EOMs intact bilaterally Neck Neck: Yes normal visual inspection and Yes no meningeal signs Resp Effort & Inspection: normal respiratory effort and no respiratory distress Cardio Rate: regular rate GI Inspection: Yes normal to inspection Palpation (GI): Soft to palpation, nontender, no guarding and not rigid Skin Rashes: no rashes Wounds: no wounds Neuro General: patient oriented x3, tone normal and no meningeal signs Cranial nerves: Yes CN's II-XII intact bilaterally Gait exam (Neuro): Normal gait present Extrem General: Yes normal to inspection Course Course Course Narrative: RME, this is a rapid medical exam performed by Marvin Dillon please refer to primary provider for complete H&P- 74 year old male presents for evaluation of prostate issues. He reports he has had trouble urinating and only a little comes out at a time. He also reports a history of an undescended testicle that was never corrected. He has previously seen urology in [place], [place]. Plan for labs, UA, bladder scan - patient unable to void, > 400cc on bladder scan. We will insert Gross catheter. - Gross catheter inserted with 400 cc immediate output. - Labs and UA reassuring. Will discharge home with leg bag and close Urology follow-up. Results discussed with patient including worrisome signs and symptoms and strict return precautions, and when to return to the emergency department. They verbalized understanding and feel safe for discharge at this time. Medical Decision Making Medical Decision Making MDM Narrative: 74-year-old male with a past medical history BPH, CHF, hemorrhagic stroke, cholelithiasis, ETOH use, HTN, presenting to the ED complaining of issues with prostate and bladder, c/o urinary hesitancy /dribbling with incomplete emptying and intermittent dysuria x awhile. On exam vital signs stable, NAD, nontoxic appearing, bladder scan w/ 453cc without the urge to urinate. Concern for urinary retention vs UTI. Lower suspicion for renal stones/pyelo, appendicitis /diverticulitis or acute prostatitis Plan: Labs, UA, suspect Gross placement Please refer to course for remaining clinical decision making, interpretation of labs/imaging results, and discussions with consultants and/or family members. Differential Diagnosis Differential Diagnoses: The differential diagnosis associated with the presentation includes As above Admission/Observation Consideration of admission/observation: Escalation of care including admission/observation considered Lab Data MDM Lab Attestation statement: I reviewed the patient's lab results. 07/26/24 13:35 07/26/24 13:35 Labs: Lab Results 07/26/24 07/26/24 Range/Units 13:35 15:16 WBC 7.5 (4.8-10.8) X10*3/uL RBC 4.27 L (4.60-5.80) X10*6/uL Hgb 13.7 L (14.0-18.0) g/dl Hct 39.3 L (42.0-52.0) % MCV 92.0 (80.0-98.0) fL MCH 32.1 (27.0-33.0) pg MCHC 34.9 (31.0-36.0) g/dl RDW 12.4 (11.0-16.0) % Plt Count 160 (160-400) X10*3/uL MPV 9.2 L (9.4-12.4) fL Immature Gran % (Auto) 0.3 (0.0-0.4) % Neut % (Auto) 59.0 (45-73) % Lymph % (Auto) 26.5 (20-40) % [place] % (Auto) 13.1 H (2-11) % Eos % (Auto) 0.8 (0-4) % Baso % (Auto) 0.3 (0-2) % Lymph # (Auto) 2.0 (1.2-4.9) X10*3/uL [place] # (Auto) 1.0 (0.1-1.2) X10*3/uL Eos # (Auto) 0.1 (0.0-0.4) X10*3/uL Baso # (Auto) 0.0 (0.0-0.2) X10*3/uL Abs Immat Gran (auto) 0.02 (0.00-0.03) X10*3/uL Absolute Neuts (auto) 4.5 (2.0-8.3) x10*3/uL Absolute Nucleated RBC 0.000 (0.0-0.012) X10*3/uL Nucleated RBC % (auto) 0.0 (0.0-0.2) /100WBC Sodium 142 (135-145) mmol/L Potassium 4.1 (3.3-5.1) mmol/L Chloride 106 (96-108) mmol/L Carbon Dioxide 25 (22-29) mmol/L Anion Gap 15 (12-20) BUN 15 (9-16) mg/dL Creatinine 0.91 (0.5-1.4) mg/dL Estim Creat Clear Calc 72.4 Estimated GFR > 60 Random Glucose 147 H (60-115) mg/dL Calcium 9.9 (8.4-10.2) mg/dL Total Bilirubin 0.5 (0.0-1.0) mg/dL AST 24 (5-37) U/L ALT 22 (0-40) U/L Alkaline Phosphatase 59 (39-117) U/L Total Protein 7.2 (6.5-8.0) g/dL Albumin 4.1 (3.5-5.0) g/dL Lipase 25 (8-78) U/L Urine Color Yellow Urine Appearance Clear Urine pH 5.5 (5.0-9.0) Ur Specific [place] 1.020 (1.005-1.025) Urine Protein Negative (Neg-Trace) mg/dL Urine Glucose (UA) Negative (Negative) mg/dL Urine Ketones Negative (Negative) mg/dL Urine Blood Negative (Negative) Urine Nitrite Negative (Negative) Ur Leukocyte Esterase Negative (Negative) Urine RBC 0-2 (0-2) /HPF Urine WBC 0-5 (0-5) /HPF Ur Squamous Epith Cells 0-2 (0-2) /HPF Urine Bacteria None Seen (None Seen) Hyaline Casts 0-2 (0-2) /LPF Radiology Impression Discussion of test interpretation with radiology: I have reviewed the radiologist's reading. External Record Review External record reviewed: Inpatient record, Office record, Outpatient record, Prior outpatient labs, Prior outpatient radiology, Primary care record and Outside ED record Tests considered The following testing was considered but not selected: As above Chronic Conditions Patient?s care impacted by: Other Social Determinants Patient?s care significantly limited by Social Determinants of Health including: Problems related to primary support group and Other Social Determinant of Health Discharge Plan Discharge Clinical Impression: Acute urinary retention Patient Disposition: Home, Self-Care Instructions: Urinary Retention in Men (ED) Additional Instructions: your blood work is reassuring. Your urine is not infected We inserted a Gross catheter, you need to leave in until you can follow-up with urology outpatient, call to make an appointment If your symptoms persist or worsen you develop blood in your urine, abdominal pain, back pain, fever return to the ED immediately Prescriptions: No Action trazodone 50 mg tablet 50 mg PO BEDTIME metoprolol succinate 50 mg tablet extended release 24 hr 50 mg PO DAILY thiamine HCl (vitamin B1) 100 mg tablet 100 mg PO DAILY folic acid 1 mg tablet 1 mg PO DAILY lisinopril 5 mg Tablet 5 mg PO DAILY Qty: 30 0RF Protocol: Hold for SBP< HOLD for SBP < : 90 risperidone 1 mg Tablet 1 mg PO BID Qty: 60 0RF Jardiance 10 mg Tablet 10 mg PO DAILY Qty: 30 0RF glipizide 10 mg Tablet 10 mg PO BIDWM Qty: 60 0RF metformin 1,000 mg Tablet 1,000 mg PO BIDWM Qty: 60 0RF lidocaine 5 % Ointment 1 appl topical Q6H PRN (Reason: arthritis pain) Qty: 50 0RF Protocol: Apply to: Apply to: arthritis pain insulin glargine [Lantus Solostar U-100 Insulin] 100 unit/mL (3 mL) insulin pen 20 unit subcut QAM Qty: 15 0RF alcohol swabs Pads, Medicated 1 pad TOPICAL QIDACHS Qty: 100 0RF Rx Instructions: Use four times a day or as directed. (DME) pen needle, diabetic 32 gauge x 1/4 needle Qty: 100 0RF Rx Instructions: use with Lantus Solostar Pen once daily (DME) lancets [FreeStyle Lancets] 28 gauge misc Qty: 100 0RF Rx Instructions: Test four times a day or as directed. tamsulosin 0.4 mg Capsule 0.4 mg PO BEDTIME 30 Days Qty: 30 0RF magnesium oxide 400 mg (241.3 mg magnesium) Tablet 400 mg PO BIDPC 30 Days Qty: 60 0RF Referrals: [facility] [place] Urology Services [Provider Group] Paul Mariano MD [Primary Care Provider] - 1 week Interventions: ED Discharge Assessment Last Done: 07/26/24 17:50 Discharge Date/Time: 07/26/24 17:50 Print Language: British
[2024-07-26 13:27] VITALS: BP 123/68; PULSE 79; RESP 16; TEMP 36.6; O2SAT 97; BMI 27.2
[2024-07-26 13:46] LABS: Basophils Percent Auto 0.3 % (0-2); Eosinophils Absolute Auto 0.1 X10*3/uL (0.0-0.4); Eosinophils Percent Auto 0.8 % (0-4); Hematocrit 39.3 % (42.0-52.0); Hemoglobin 13.7 g/dl (14.0-18.0); Imm Gran Abs Auto 0.02 X10*3/uL (0.00-0.03); Imm Gran Pct Auto 0.3 % (0.0-0.4); Lymphocytes Percent Auto 26.5 % (20-40); MANUAL DIFF FLAG NO; Mean Corpuscular HGB Conc 34.9 g/dl (31.0-36.0); Mean Corpuscular Hemoglobin 32.1 pg (27.0-33.0); Mean Platelet Volume 9.2 fL (9.4-12.4); Monocytes Percent Auto 13.1 % (2-11); Neutrophils Absolute Auto 4.5 x10*3/uL (2.0-8.3); Platelet Count 160 X10*3/uL (160-400); Red Blood Count 4.27 X10*6/uL (4.60-5.80); Red Cell Distribution Width 12.4 % (11.0-16.0); White Blood Count 7.5 X10*3/uL (4.8-10.8)
[2024-07-26 14:00] LABS: Alanine Aminotransferase 22 U/L (0-40); Albumin Level 4.1 g/dL (3.5-5.0); Alkaline Phosphatase 59 U/L (39-117); Anion Gap 15 (12-20); Aspartate Amino Transferase 24 U/L (5-37); Bilirubin Total 0.5 mg/dL (0.0-1.0); Blood Urea Nitrogen 15 mg/dL (9-16); Calcium 9.9 mg/dL (8.4-10.2); Carbon Dioxide 25 mmol/L (22-29); Chloride 106 mmol/L (96-108); Creatinine Clr Calc Pharmacy 72.4; Estimated Glomerular Filt Rate > 60; Glucose Random 147 mg/dL (60-115); Lipase 25 U/L (8-78); Potassium 4.1 mmol/L (3.3-5.1); Sodium 142 mmol/L (135-145); Total Protein 7.2 g/dL (6.5-8.0)
--- NOTE | 2024-07-26 14:08 | PC.NURSE ---
pt comes to ED with multiple complaints. He is having urinary hesitancy and incomplete emptying and is concerned about dribbling. he also reports severe back pain, leg pain, and numbness and tingling in his fingers. he has a hx of diabetes. bladder scan showed over 400ml in bladder. pt denies abd pain, nausea and vomiting. he lives alone
[2024-07-26 15:10] VITALS: BP 145/82; PULSE 62; RESP 16; TEMP 36.8; O2SAT 96
[2024-07-26 15:24] LABS: Appearance Urine Clear; Color Urine Yellow; Glucose Urine UA Negative (Negative); Leukocyte Esterase Urine Negative (Negative); Nitrite Urine Negative (Negative); PH 5.5 (5.0-9.0); Urine Blood Negative (Negative); Urine Ketones Negative (Negative); Urine Protein Negative (Neg-Trace)
[2024-07-26 15:26] LABS: Bacteria Urine None Seen (None Seen); Hyaline Casts Urine 0-2 /LPF (0-2); RBC Urine 0-2 /HPF (0-2); Squamous Epithelial Cell Urine 0-2 /HPF (0-2); WBC Urine 0-5 /HPF (0-5)
[2024-07-26 17:50] VITALS: BP 156/92; PULSE 74; RESP 16; TEMP 36.8; O2SAT 96
== END 2024-07-26 17:50 | disposition home or self-care (01) ==
PROVIDERS: Physician Assistant; Emergency Provider Emergency Medicine; PCP Internal Medicine Nephrology
DX: R33.9 Retention of urine, unspecified (principal); E11.9 Type 2 diabetes mellitus without complications; I11.0 Hypertensive heart disease with heart failure; I50.9 Heart failure, unspecified; Z79.4 Long term (current) use of insulin; Z79.84 Long term (current) use of oral hypoglycemic drugs; Z79.899 Other long term (current) drug therapy
CPT/HCPCS: 36415; 51702; 51798; 80053; 81001; 83690; 85025; 99283; 99285

== ENCOUNTER 2024-07-28 12:22 | Emergency (ER) | payer MEDICARE, SELFPAY ==
[2024-07-28 12:31] VITALS: BP 127/72; BP 150/98; PULSE 67; PULSE 75; RESP 16; TEMP 36.6; O2SAT 98; O2SAT 99; BMI 26.9
--- NOTE | 2024-07-28 12:45 | PC.NURSE ---
sherie from home s/p having burgos catheter placed x 2 days ago d/t urinary retention. pt presents to ED d/t burgos catheter bag issues in regards to bag being disconnected. c/o 2/10 groin pain. denies urinary retention/hematuria/fever/chills. upon ED arrival - a&ox4. vss and up to date. bag from burgos got disconnected. pt had burgos catheter tubing tied in a knot as he did not want to have urine spilled onto floor. tubing taken out of knot/disconnected. new burgos drainage bag connected. 10ml balloon deflated - catheter advanced. positive urine output. clear/pale yellow drainage noted in burgos tubing. bladder scan completed s/p re-insertion displaying 3ml. pt denies pain. resting comfortably in no apparent distress. on RA w/o difficulty. no sob/wob noted. respirations even/unlabored. plan of care ongoing. call [place] placed within reach.
--- NOTE | 2024-07-28 13:35 | ED.MALEGU ---
HPI - Male Genitourinary General Chief complaint: Urogenital-Male Stated complaint: CATHETER ISSUES Time Seen by Provider: 07/28/24 13:04 Source: patient and EMS Mode of arrival: EMS Limitations: no limitations History of Present Illness ED Provider: DR. Mercado HPI Narrative: 74-year-old male with past medical history BPH, CHF, hemorrhagic stroke, cholelithiasis, ETOH use, HTN, patient came to the emergency department 2 days ago for urinary retention require placing a Gross catheter in the emergency department, patient was not able to drain the catheter today called 911 and return back to the ED.Otherwise patient has no complaint today Patient lives home by himself get VNA to administer medication, patient mentioned that he has been having difficulty contacting his PCP. Related Data Home Medications ?Medication ?Instructions ?Recorded ?Confirmed folic acid 1 mg tablet 1 mg PO DAILY 11/23/23 11/23/23 metoprolol succinate 50 mg 50 mg PO DAILY 11/23/23 11/23/23 tablet,extended release 24 hr thiamine HCl (vitamin B1) 100 mg 100 mg PO DAILY 11/23/23 11/23/23 tablet trazodone 50 mg tablet 50 mg PO BEDTIME 11/23/23 11/23/23 Previous Rx's ?Medication ?Instructions ?Recorded magnesium oxide 400 mg (241.3 mg 400 mg PO BIDPC 30 days #60 tabs 04/20/23 magnesium) tablet tamsulosin 0.4 mg capsule 0.4 mg PO BEDTIME 30 days #30 caps 04/20/23 alcohol swabs 1 pad topical QIDACHS #100 ea 12/01/23 empagliflozin 10 mg tablet 10 mg PO DAILY #30 tabs 12/01/23 (Jardiance) glipizide 10 mg tablet 10 mg PO BIDWM #60 tabs 12/01/23 insulin glargine 100 unit/mL (3 20 unit (0.2 mL) subcut QAM #15 mL 12/01/23 mL) subcutaneous pen (Lantus Solostar U-100 Insulin) lancets 28 gauge (FreeStyle #100 ea 12/01/23 Lancets) lidocaine 5 % topical ointment 1 appl topical Q6H PRN arthritis 12/01/23 pain #50 grams lisinopril 5 mg tablet 5 mg PO DAILY #30 tabs 12/01/23 metformin 1,000 mg tablet 1,000 mg PO BIDWM #60 tabs 12/01/23 pen needle, diabetic 32 gauge x #100 ea 12/01/2309/07 risperidone 1 mg tablet 1 mg PO BID #60 tabs 12/01/23 Allergies Allergy/AdvReac Type Severity Reaction Status Date / Time meperidine [From DEMEROL] Allergy Unknown UNKNOWN Verified 07/28/24 12:32 Review of Systems Review of Systems: all other systems are reviewed and are negative Constitutional: Reports as per HPI and Reports no additional constitutional complaints Eyes: Reports as per HPI and Reports no additional eye complaints Reports system reviewed and no additional complaints, except as documented Cardiovascular: Reports as per HPI and Reports no additional cardiovascular complaints Respiratory: Reports as per HPI and Reports no additional respiratory complaints Gastrointestinal: Reports as per HPI and Reports no additional gastrointestinal complaints Genitourinary: Reports no additional female genitourinary complaints Musculoskeletal: Reports no additional musculoskeletal complaints Skin/Breast: Reports system reviewed and no additional complaints, except as docu Psychiatric: Reports no additional psychiatric complaints Endocrine: Reports no additional endocrine complaints Hematologic/Lymphatic: Reports no additional hematologic/lymphatic complaints Allergic/Immunologic: Reports no additional allergic/immunologic complaints Reports system reviewed and no additional complaints, except as documented and Reports Abnormal speech present [facility] Past Medical History Medical History BPH loc w urin obs/LUTS Severe recurrent major depressive disorder with psychosis CHF (congestive heart failure) Hemorrhagic stroke Cholelithiasis Alcohol use disorder HTN (hypertension) Surgical History No pertinent past surgical history Social History Social History Household Members: None Housing: Apartment Do you presently have visiting nurse or other home services: No Alcohol intake: current Alcohol intake frequency: 0-2 drinks per day Alcohol type: hard liquor Comment: pt continues refusing bed alarm; chair alarm on pt in bed Patient Tobacco Use Status: Former Tobacco user Second Hand Smoke Exposure: No Advance Directives: Yes Advance Directives on File: Yes Advance Directives Date on File: 04/12/23 Do you have a plan to hurt others: No Plan service: No Current occupational status: disabled Physical Exam Vital Signs: Vital Signs: Last Vital Signs Temp 98.1 F 07/28/24 14:01 Pulse 62 07/28/24 14:01 Resp 16 07/28/24 14:01 BP 146/80 H 07/28/24 14:01 Pulse Ox 98 07/28/24 14:01 O2 Del Method Room Air 07/28/24 14:01 BMI result Body Mass Index 26.9 Vital signs have been reviewed and appear to be correct. Blood pressure elevated. Heart rate normal. Respiratory rate normal. Temperature normal. Oxygen saturation normal. Appearance: Alert. Oriented X3. No acute distress. Head: Normal external exam. Normocephalic. Atraumatic. No Metcalf signs noted. No raccoon eyes noted Eyes: PERRLA. EOMI. Conjunctiva and sclera normal. Eyelids normal. ENT: TM's Normal. Pharynx normal. Uvula midline. Moist mucous membranes. No trismus noted. No drooling noted. No muffled voice noted. Neck: Normal inspection. Neck supple. FROM. No adenopathy. Thyroid Normal. No meningeal signs. No neck mass noted. CVS: Normal heart rate and rhythm. Heart sound normal. No murmurs noted. Pulses normal throughout. Respiratory: No respiratory distress. Painless inspiration. Breath sounds normal. No wheezes/rales/rhonchi noted. Chest nontender. No accessory muscle usage noted or decreased air movement noted. Abdomen: Soft and nontender. Bowel sounds normal in all 4 quadrants. No distention noted. No organomegaly noted. No visible injury noted. Back: No CVA tenderness. Full range of motion noted. Skin: Skin warm and dry. Normal skin color. Normal skin turgor. No rashes/lesions/lacerations noted. Extremities: No lower extremity edema. Extremities exhibit normal range of motion. Extremities nontender. Neuro: Oriented X 3. Cranial nerve exam: II-XII are grossly intact No motor deficit. No sensory deficit. Reflexes normal. Course Reevaluation(s) Reevaluation #1: urinary retention, s/p Gross catheter x2 days patient could not empty the Gross bag came to the emergency department, catheter had no problems still draining, patient lives home alone gets VNA once a day to administer medication, no SI, no HI, no hallucination. Patient was offered to go to short-term rehab to care for his Gross and may benefit from physical therapy but patient adamantly refused. patient otherwise has no specific complaint, unremarkable except for hematuria likely after the Gross catheter placement. Time: 15:16 Medical Decision Making Differential Diagnosis Differential Diagnoses: The differential diagnosis associated with the presentation includes ( Urinary retention, Grsos catheter malfunction, electrolyte derangement, severe anemia, UTI.) Admission/Observation Consideration of admission/observation: Escalation of care including admission/observation considered Lab Data MDM Lab Attestation statement: I reviewed the patient's lab results. 07/28/24 13:53 07/28/24 13:53 Labs: Lab Results 07/28/24 07/28/24 Range/Units 13:53 14:01 WBC 8.0 (4.8-10.8) X10*3/uL RBC 4.22 L (4.60-5.80) X10*6/uL Hgb 13.3 L (14.0-18.0) g/dl Hct 39.0 L (42.0-52.0) % MCV 92.4 (80.0-98.0) fL MCH 31.5 (27.0-33.0) pg MCHC 34.1 (31.0-36.0) g/dl RDW 12.2 (11.0-16.0) % Plt Count 159 L (160-400) X10*3/uL MPV 9.2 L (9.4-12.4) fL Immature Gran % (Auto) 0.3 (0.0-0.4) % Neut % (Auto) 61.5 (45-73) % Lymph % (Auto) 25.3 (20-40) % [place] % (Auto) 10.7 (2-11) % Eos % (Auto) 1.8 (0-4) % Baso % (Auto) 0.4 (0-2) % Lymph # (Auto) 2.0 (1.2-4.9) X10*3/uL [place] # (Auto) 0.9 (0.1-1.2) X10*3/uL Eos # (Auto) 0.1 (0.0-0.4) X10*3/uL Baso # (Auto) 0.0 (0.0-0.2) X10*3/uL Abs Immat Gran (auto) 0.02 (0.00-0.03) X10*3/uL Absolute Neuts (auto) 4.9 (2.0-8.3) x10*3/uL Absolute Nucleated RBC 0.000 (0.0-0.012) X10*3/uL Nucleated RBC % (auto) 0.0 (0.0-0.2) /100WBC Sodium 141 (135-145) mmol/L Potassium 3.9 (3.3-5.1) mmol/L Chloride 104 (96-108) mmol/L Carbon Dioxide 24 (22-29) mmol/L Anion Gap 17 (12-20) BUN 20 H (9-16) mg/dL Creatinine 1.06 (0.5-1.4) mg/dL Estim Creat Clear Calc 62.1 Estimated GFR > 60 Random Glucose 140 H (60-115) mg/dL Calcium 9.6 (8.4-10.2) mg/dL Total Bilirubin 0.5 (0.0-1.0) mg/dL Direct Bilirubin 0.2 (0.0-0.5) mg/dL AST 29 (5-37) U/L ALT 20 (0-40) U/L Alkaline Phosphatase 55 (39-117) U/L Troponin I High Sens 7.9 (<3.5-35.0) ng/L Total Protein 6.6 (6.5-8.0) g/dL Albumin 3.9 (3.5-5.0) g/dL Lipase 22 (8-78) U/L Urine Color Yellow Urine Appearance Clear Urine pH 5.0 (5.0-9.0) Ur Specific [place] 1.020 (1.005-1.025) Urine Protein 30 (1+) H (Neg-Trace) mg/dL Urine Glucose (UA) Negative (Negative) mg/dL Urine Ketones Trace (Negative) mg/dL Urine Blood Large (3+) H (Negative) Urine Nitrite Negative (Negative) Ur Leukocyte Esterase Small (1+) H (Negative) Urine RBC 11-20 H (0-2) /HPF Urine WBC 0-5 (0-5) /HPF Ur Squamous Epith Cells 0-2 (0-2) /HPF Urine Bacteria None Seen (None Seen) Hyaline Casts 0-2 (0-2) /LPF Discharge Plan Discharge Clinical Impression: Gross catheter problem Patient Disposition: Home, Self-Care Instructions: Gross Catheter Placement and Care (ED) Prescriptions: No Action trazodone 50 mg tablet 50 mg PO BEDTIME metoprolol succinate 50 mg tablet extended release 24 hr 50 mg PO DAILY thiamine HCl (vitamin B1) 100 mg tablet 100 mg PO DAILY folic acid 1 mg tablet 1 mg PO DAILY lisinopril 5 mg Tablet 5 mg PO DAILY Qty: 30 0RF Protocol: Hold for SBP< HOLD for SBP < : 90 risperidone 1 mg Tablet 1 mg PO BID Qty: 60 0RF Jardiance 10 mg Tablet 10 mg PO DAILY Qty: 30 0RF glipizide 10 mg Tablet 10 mg PO BIDWM Qty: 60 0RF metformin 1,000 mg Tablet 1,000 mg PO BIDWM Qty: 60 0RF lidocaine 5 % Ointment 1 appl topical Q6H PRN (Reason: arthritis pain) Qty: 50 0RF Protocol: Apply to: Apply to: arthritis pain insulin glargine [Lantus Solostar U-100 Insulin] 100 unit/mL (3 mL) insulin pen 20 unit subcut QAM Qty: 15 0RF alcohol swabs Pads, Medicated 1 pad TOPICAL QIDACHS Qty: 100 0RF Rx Instructions: Use four times a day or as directed. (DME) pen needle, diabetic 32 gauge x 1/4 needle Qty: 100 0RF Rx Instructions: use with Lantus Solostar Pen once daily (DME) lancets [FreeStyle Lancets] 28 gauge misc Qty: 100 0RF Rx Instructions: Test four times a day or as directed. tamsulosin 0.4 mg Capsule 0.4 mg PO BEDTIME 30 Days Qty: 30 0RF magnesium oxide 400 mg (241.3 mg magnesium) Tablet 400 mg PO BIDPC 30 Days Qty: 60 0RF Referrals: Lyle Edouard MD [Physician] - Print Language: Salvadorean
[2024-07-28 13:58] LABS: MANUAL DIFF FLAG NO
[2024-07-28 14:01] VITALS: BP 146/80; PULSE 62; RESP 16; TEMP 36.7; O2SAT 98
[2024-07-28 14:05] LABS: Basophils Percent Auto 0.4 % (0-2); Eosinophils Absolute Auto 0.1 X10*3/uL (0.0-0.4); Eosinophils Percent Auto 1.8 % (0-4); Hemoglobin 13.3 g/dl (14.0-18.0); Imm Gran Abs Auto 0.02 X10*3/uL (0.00-0.03); Imm Gran Pct Auto 0.3 % (0.0-0.4); Lymphocytes Percent Auto 25.3 % (20-40); Mean Corpuscular HGB Conc 34.1 g/dl (31.0-36.0); Mean Corpuscular Hemoglobin 31.5 pg (27.0-33.0); Mean Corpuscular Volume 92.4 fL (80.0-98.0); Mean Platelet Volume 9.2 fL (9.4-12.4); Monocytes Absolute Auto 0.9 X10*3/uL (0.1-1.2); Monocytes Percent Auto 10.7 % (2-11); Neutrophils Absolute Auto 4.9 x10*3/uL (2.0-8.3); Neutrophils Percent Auto 61.5 % (45-73); Platelet Count 159 X10*3/uL (160-400); Red Blood Count 4.22 X10*6/uL (4.60-5.80); Red Cell Distribution Width 12.2 % (11.0-16.0)
[2024-07-28 14:15] LABS: Alanine Aminotransferase 20 U/L (0-40); Albumin Level 3.9 g/dL (3.5-5.0); Alkaline Phosphatase 55 U/L (39-117); Anion Gap 17 (12-20); Aspartate Amino Transferase 29 U/L (5-37); Bilirubin Direct 0.2 mg/dL (0.0-0.5); Bilirubin Total 0.5 mg/dL (0.0-1.0); Blood Urea Nitrogen 20 mg/dL (9-16); Calcium 9.6 mg/dL (8.4-10.2); Carbon Dioxide 24 mmol/L (22-29); Chloride 104 mmol/L (96-108); Creatinine Clr Calc Pharmacy 62.1; Estimated Glomerular Filt Rate > 60; Glucose Random 140 mg/dL (60-115); Lipase 22 U/L (8-78); Potassium 3.9 mmol/L (3.3-5.1); Sodium 141 mmol/L (135-145); Total Protein 6.6 g/dL (6.5-8.0)
[2024-07-28 14:22] LABS: Troponin-I High Sensitivity 7.9 ng/L (<3.5-35.0)
[2024-07-28 14:24] LABS: Appearance Urine Clear; Color Urine Yellow; Glucose Urine UA Negative (Negative); Leukocyte Esterase Urine Small (1+) (Negative); Nitrite Urine Negative (Negative); UMIC TRIGGER UACC YES; Urine Blood Large (3+) (Negative); Urine Ketones Trace mg/dL (Negative); Urine Protein 30 (1+) mg/dL (Neg-Trace)
[2024-07-28 14:41] LABS: Bacteria Urine None Seen (None Seen); Hyaline Casts Urine 0-2 /LPF (0-2); Squamous Epithelial Cell Urine 0-2 /HPF (0-2); UACC Culture Trigger YES; WBC Urine 0-5 /HPF (0-5)
[2024-07-28 15:32] VITALS: BP 128/68; PULSE 59; RESP 18; TEMP 36.6; O2SAT 97
[2024-07-28 15:58] VITALS: BP 128/68; PULSE 59; RESP 18; TEMP 36.6; O2SAT 97
--- NOTE | 2024-07-28 16:00 | PC.NURSE ---
burgos catheter bag switching to leg bag prior to d/c.
== END 2024-07-28 16:01 | disposition home or self-care (01) ==
PROVIDERS: Emergency Provider Emergency Medicine
DX: R33.9 Retention of urine, unspecified (principal); T83.098A Other mechanical complication of other urinary catheter, initial encounter; Y73.8 Miscellaneous gastroenterology and urology devices associated with adverse incidents, not elsewhere classified; Y92.89 Other specified places as the place of occurrence of the external cause; Z79.899 Other long term (current) drug therapy
CPT/HCPCS: 36415; 80048; 80076; 81001; 83690; 84484; 85025; 87086; 99284

== ENCOUNTER → 2024-08-07 10:47 | Outpatient (BNVA) | payer MEDICARE, SELFPAY | PROVIDERS: Visit Provider Urology | DX: N39.0 Urinary tract infection, site not specified (principal); R33.9 Retention of urine, unspecified | CPT/HCPCS: 51700; 51702; 51798 ==

== ENCOUNTER 2024-08-13 11:21 | Emergency (ER) | payer MEDICARE, SELFPAY ==
--- NOTE | ~2024-08-13 | XR_ITS ---
EXAMINATION: XR CHEST CLINICAL INFORMATION: SOB COMPARISON: 05/20/2024 TECHNIQUE: 2 views of the chest were obtained. FINDINGS: Lungs clear. No pleural effusions. Heart and pulmonary vessels are normal. There is spondylitic changes in the thoracic spine XR/XR chest 2V IMPRESSION: Unremarkable examination. Electronically signed by: Mynor Dover MD 08/13/2024 03:31 PM [facility]
[2024-08-13 11:31] VITALS: BP 146/91; PULSE 72; O2SAT 96
[2024-08-13 11:58] VITALS: BP 118/75; PULSE 73; RESP 20; TEMP 37.4; O2SAT 97; BMI 26.5
--- NOTE | 2024-08-13 12:01 | ED_ITS ---
HPI - General Adult General Chief complaint: Back Pain/Injury Stated complaint: BACK PAIN DOWN LLE PER EMS Time Seen by Provider: 08/13/24 17:58 Source: patient, EMS and old records reviewed Mode of arrival: EMS Limitations: no limitations History of Present Illness ED Provider: DR. Mercado HPI narrative: A 74-year-old male lives home alone came in for evaluation of multiple complaints Bilateral feet pain for few weeks pain is burning sensation to both feet up to the ankle, no trauma, no feet injury, no fever, no chills. Patient also is complaining of low back pain that the patient described as is a chronic for many months in is shooting down to the left lower extremities, patient is still able to ambulate on his own, no urinary or stool incontinence. Related Data Home Medications ?Medication ?Instructions ?Recorded ?Confirmed folic acid 1 mg tablet 1 mg PO DAILY 11/23/23 11/23/23 metoprolol succinate 50 mg 50 mg PO DAILY 11/23/23 11/23/23 tablet,extended release 24 hr thiamine HCl (vitamin B1) 100 mg 100 mg PO DAILY 11/23/23 11/23/23 tablet trazodone 50 mg tablet 50 mg PO BEDTIME 11/23/23 11/23/23 Previous Rx's ?Medication ?Instructions ?Recorded magnesium oxide 400 mg (241.3 mg 400 mg PO BIDPC 30 days #60 tabs 04/20/23 magnesium) tablet tamsulosin 0.4 mg capsule 0.4 mg PO BEDTIME 30 days #30 caps 04/20/23 alcohol swabs 1 pad topical QIDACHS #100 ea 12/01/23 empagliflozin 10 mg tablet 10 mg PO DAILY #30 tabs 12/01/23 (Jardiance) glipizide 10 mg tablet 10 mg PO BIDWM #60 tabs 12/01/23 insulin glargine 100 unit/mL (3 20 unit (0.2 mL) subcut QAM #15 mL 12/01/23 mL) subcutaneous pen (Lantus Solostar U-100 Insulin) lancets 28 gauge (FreeStyle #100 ea 12/01/23 Lancets) lidocaine 5 % topical ointment 1 appl topical Q6H PRN arthritis 12/01/23 pain #50 grams lisinopril 5 mg tablet 5 mg PO DAILY #30 tabs 12/01/23 metformin 1,000 mg tablet 1,000 mg PO BIDWM #60 tabs 12/01/23 pen needle, diabetic 32 gauge x #100 ea 12/01/2309/07 risperidone 1 mg tablet 1 mg PO BID #60 tabs 12/01/23 Allergies Allergy/AdvReac Type Severity Reaction Status Date / Time meperidine [From DEMEROL] Allergy Unknown UNKNOWN Verified 08/13/24 12:01 Review of Systems 2 Review of Systems: All other systems are reviewed and are negative Constitutional: Reports as per HPI and Reports no additional constitutional complaints Eyes: Reports as per HPI and Reports no additional eye complaints Reports system reviewed and no additional complaints, except as documented Cardiovascular: Reports as per HPI and Reports no additional cardiovascular complaints Respiratory: Reports as per HPI and Reports no additional respiratory complaints Gastrointestinal: Reports as per HPI and Reports no additional gastrointestinal complaints Genitourinary: Reports no additional female genitourinary complaints Musculoskeletal: Reports no additional musculoskeletal complaints Skin/Breast: Reports system reviewed and no additional complaints, except as docu Psychiatric: Reports no additional psychiatric complaints Endocrine: Reports no additional endocrine complaints Hematologic/Lymphatic: Reports no additional hematologic/lymphatic complaints Allergic/Immunologic: Reports no additional allergic/immunologic complaints Reports system reviewed and no additional complaints, except as documented and Reports Abnormal speech present PMFSH Past Medical History Medical History BPH loc w urin obs/LUTS Severe recurrent major depressive disorder with psychosis CHF (congestive heart failure) Hemorrhagic stroke Cholelithiasis Alcohol use disorder HTN (hypertension) Surgical History No pertinent past surgical history Social History Social History Household Members: None Housing: Apartment Do you presently have visiting nurse or other home services: No Alcohol intake: current Alcohol intake frequency: 0-2 drinks per day Alcohol type: hard liquor Comment: pt continues refusing bed alarm; chair alarm on pt in bed Patient Tobacco Use Status: Former Tobacco user Second Hand Smoke Exposure: No Advance Directives: Yes Advance Directives on File: Yes Advance Directives Date on File: 04/12/23 service: No Current occupational status: disabled Physical Exam ED Vital Signs: Vital Signs - 24 hr 08/13/24 11:58 08/13/24 17:49 Temperature 99.3 F 98.0 F Pulse Rate 73 69 Respiratory Rate 20 14 Blood Pressure 118/75 168/91 H Pulse Oximetry 97 97 Oxygen Delivery Method Room Air Room Air BMI result Body Mass Index 26.5 Vital signs have been reviewed and appear to be correct. Blood pressure elevated. Heart rate normal. Respiratory rate normal. Temperature normal. Oxygen saturation normal. Appearance: Alert. Oriented X3. No acute distress. Head: Normal external exam. Normocephalic. Atraumatic. No Metcalf signs noted. No raccoon eyes noted Eyes: PERRLA. EOMI. Conjunctiva and sclera normal. Eyelids normal. ENT: TM's Normal. Pharynx normal. Uvula midline. Moist mucous membranes. No trismus noted. No drooling noted. No muffled voice noted. Neck: Normal inspection. Neck supple. FROM. No adenopathy. Thyroid Normal. No meningeal signs. No neck mass noted. CVS: Normal heart rate and rhythm. Heart sound normal. No murmurs noted. Pulses normal throughout. Respiratory: No respiratory distress. Painless inspiration. Breath sounds normal. No wheezes/rales/rhonchi noted. Chest nontender. No accessory muscle usage noted or decreased air movement noted. Abdomen: Soft and nontender. Bowel sounds normal in all 4 quadrants. No distention noted. No organomegaly noted. No visible injury noted. Back: No CVA tenderness. Full range of motion noted. Skin: Skin warm and dry. Normal skin color. Normal skin turgor. No rashes/lesions/lacerations noted. Extremities: No lower extremity edema. Extremities exhibit normal range of motion. Extremities nontender. Neuro: Oriented X 3. Cranial nerve exam: II-XII are grossly intact No motor deficit. No sensory deficit. Reflexes normal. Course Course Course Narrative: This is an RME: Additional HPI, ROS, PE not included below will be deferred to primary provider. RME assessment and note performed by: Herlinda Aranda PA-C 74-year-old male with past medical history BPH, CHF, hemorrhagic stroke, cholelithiasis, ETOH use, HTN, patient came to the emergency department with concerns for lightheadedness and back pain. Patient also reports that his feet hurt as he was walking around due to errands yesterday. He admits to having some shortness for breath. Vital signs within normal limits. Plan: Labs, EKG, further ER evaluation needed. Reevaluation(s) Reevaluation #1: A 74-year-old male brought in from home by EMS for evaluation of bilateral feet pain in low back pain, no acute injuries, patient is home alone. Patient's symptoms and physical exam is consistent with peripheral neuropathy patient was long history of diabetes. Labs reveals slight leukocytosis. Otherwise unremarkable labs. Time: 18:12 Medical Decision Making Differential Diagnosis Differential Diagnoses: The differential diagnosis associated with the presentation includes (Peripheral neuropathy, chronic low back pain, CVA, electrolyte derangement, severe anemia.) Admission/Observation Consideration of admission/observation: Escalation of care including admission/observation considered Lab Data MDM Lab Attestation statement: I reviewed the patient's lab results. 08/13/24 12:25 08/13/24 12:26 Labs: Lab Results 08/13/24 08/13/24 08/13/24 Range/Units 12:04 12:25 12:26 WBC 11.0 H (4.8-10.8) X10*3/uL RBC 4.42 L (4.60-5.80) X10*6/uL Hgb 13.8 L (14.0-18.0) g/dl Hct 39.7 L (42.0-52.0) % MCV 89.8 (80.0-98.0) fL MCH 31.2 (27.0-33.0) pg MCHC 34.8 (31.0-36.0) g/dl RDW 12.1 (11.0-16.0) % Plt Count 264 D (160-400) X10*3/uL MPV 8.7 L (9.4-12.4) fL Immature Gran % (Auto) 0.4 (0.0-0.4) % Neut % (Auto) 76.3 H (45-73) % Lymph % (Auto) 15.7 L (20-40) % [place] % (Auto) 6.3 (2-11) % Eos % (Auto) 1.0 (0-4) % Baso % (Auto) 0.3 (0-2) % Lymph # (Auto) 1.7 (1.2-4.9) X10*3/uL [place] # (Auto) 0.7 (0.1-1.2) X10*3/uL Eos # (Auto) 0.1 (0.0-0.4) X10*3/uL Baso # (Auto) 0.0 (0.0-0.2) X10*3/uL Abs Immat Gran (auto) 0.04 H (0.00-0.03) X10*3/uL Absolute Neuts (auto) 8.4 H (2.0-8.3) x10*3/uL Absolute Nucleated RBC 0.000 (0.0-0.012) X10*3/uL Nucleated RBC % (auto) 0.0 (0.0-0.2) /100WBC Sodium 142 (135-145) mmol/L Potassium 4.0 (3.3-5.1) mmol/L Chloride 103 (96-108) mmol/L Carbon Dioxide 26 (22-29) mmol/L Anion Gap 17 (12-20) BUN 14 (9-16) mg/dL Creatinine 1.03 (0.5-1.4) mg/dL Estim Creat Clear Calc 63.9 Estimated GFR > 60 POC Glucose 149 H (60-115) mg/dL Random Glucose 155 H (60-115) mg/dL Calcium 9.6 (8.4-10.2) mg/dL Magnesium 1.7 (1.6-2.6) mg/dL Total Bilirubin 0.5 (0.0-1.0) mg/dL Direct Bilirubin 0.2 (0.0-0.5) mg/dL AST 24 (5-37) U/L ALT 19 (0-40) U/L Alkaline Phosphatase 56 (39-117) U/L Troponin I High Sens 8.1 (<3.5-35.0) ng/L B-Natriuretic Peptide 322 H (<100) pg/mL Total Protein 7.5 (6.5-8.0) g/dL Albumin 4.1 (3.5-5.0) g/dL Influenza Type A (PCR) NEGATIVE (Negative) Influenza Type B (PCR) NEGATIVE (Negative) RSV RNA Qual (PCR) NEGATIVE (Negative) SARS-CoV-2 RNA (RT-PCR) NEGATIVE (Negative) 08/13/24 Range/Units 18:00 WBC (4.8-10.8) X10*3/uL RBC (4.60-5.80) X10*6/uL Hgb (14.0-18.0) g/dl Hct (42.0-52.0) % MCV (80.0-98.0) fL MCH (27.0-33.0) pg MCHC (31.0-36.0) g/dl RDW (11.0-16.0) % Plt Count (160-400) X10*3/uL MPV (9.4-12.4) fL Immature Gran % (Auto) (0.0-0.4) % Neut % (Auto) (45-73) % Lymph % (Auto) (20-40) % [place] % (Auto) (2-11) % Eos % (Auto) (0-4) % Baso % (Auto) (0-2) % Lymph # (Auto) (1.2-4.9) X10*3/uL [place] # (Auto) (0.1-1.2) X10*3/uL Eos # (Auto) (0.0-0.4) X10*3/uL Baso # (Auto) (0.0-0.2) X10*3/uL Abs Immat Gran (auto) (0.00-0.03) X10*3/uL Absolute Neuts (auto) (2.0-8.3) x10*3/uL Absolute Nucleated RBC (0.0-0.012) X10*3/uL Nucleated RBC % (auto) (0.0-0.2) /100WBC Sodium (135-145) mmol/L Potassium (3.3-5.1) mmol/L Chloride (96-108) mmol/L Carbon Dioxide (22-29) mmol/L Anion Gap (12-20) BUN (9-16) mg/dL Creatinine (0.5-1.4) mg/dL Estim Creat Clear Calc Estimated GFR POC Glucose 112 (60-115) mg/dL Random Glucose (60-115) mg/dL Calcium (8.4-10.2) mg/dL Magnesium (1.6-2.6) mg/dL Total Bilirubin (0.0-1.0) mg/dL Direct Bilirubin (0.0-0.5) mg/dL AST (5-37) U/L ALT (0-40) U/L Alkaline Phosphatase (39-117) U/L Troponin I High Sens (<3.5-35.0) ng/L B-Natriuretic Peptide (<100) pg/mL Total Protein (6.5-8.0) g/dL Albumin (3.5-5.0) g/dL Influenza Type A (PCR) (Negative) Influenza Type B (PCR) (Negative) RSV RNA Qual (PCR) (Negative) SARS-CoV-2 RNA (RT-PCR) (Negative) Independent Interpretation I performed an independent interpretation of an: Plain X-Ray (Chest: No acute intrathoracic pathology.) Radiology Impression Discussion of test interpretation with radiology: I have reviewed the radiologist's reading. Discharge Plan Discharge Clinical Impression: Back pain, Peripheral neuropathy Patient Disposition: Still a Patient Prescriptions: No Action trazodone 50 mg tablet 50 mg PO BEDTIME metoprolol succinate 50 mg tablet extended release 24 hr 50 mg PO DAILY thiamine HCl (vitamin B1) 100 mg tablet 100 mg PO DAILY folic acid 1 mg tablet 1 mg PO DAILY lisinopril 5 mg Tablet 5 mg PO DAILY Qty: 30 0RF Protocol: Hold for SBP< HOLD for SBP < : 90 risperidone 1 mg Tablet 1 mg PO BID Qty: 60 0RF Jardiance 10 mg Tablet 10 mg PO DAILY Qty: 30 0RF glipizide 10 mg Tablet 10 mg PO BIDWM Qty: 60 0RF metformin 1,000 mg Tablet 1,000 mg PO BIDWM Qty: 60 0RF lidocaine 5 % Ointment 1 appl topical Q6H PRN (Reason: arthritis pain) Qty: 50 0RF Protocol: Apply to: Apply to: arthritis pain insulin glargine [Lantus Solostar U-100 Insulin] 100 unit/mL (3 mL) insulin pen 20 unit subcut QAM Qty: 15 0RF alcohol swabs Pads, Medicated 1 pad TOPICAL QIDACHS Qty: 100 0RF Rx Instructions: Use four times a day or as directed. (DME) pen needle, diabetic 32 gauge x 1/4 needle Qty: 100 0RF Rx Instructions: use with Lantus Solostar Pen once daily (DME) lancets [FreeStyle Lancets] 28 gauge misc Qty: 100 0RF Rx Instructions: Test four times a day or as directed. tamsulosin 0.4 mg Capsule 0.4 mg PO BEDTIME 30 Days Qty: 30 0RF magnesium oxide 400 mg (241.3 mg magnesium) Tablet 400 mg PO BIDPC 30 Days Qty: 60 0RF Print Language: Divehi
--- NOTE | 2024-08-13 12:05 | ECG_ITS ---
Test Reason : lightheadedness, dyspnea Blood Pressure : / mmHG Vent. Rate : 072 BPM Atrial Rate : 062 BPM P-R Int : 162 ms QRS Dur : 122 ms QT Int : 436 ms P-R-T Axes : 078 -16 042 degrees QTc Int : 477 ms Sinus rhythm with Premature atrial complexes Left ventricular hypertrophy with repolizeration abnormality. ST & T wave abnormality, consider lateral ischemia Abnormal ECG When compared to the previous EKG of Premature atrial complexes are present Referred By: Herlinda Aranda Electronically Signed By:ROBI WADE MD
[2024-08-13 12:24] LABS: Glucose, Whole Blood 149 mg/dL (60-115)
[2024-08-13 12:32] LABS: MANUAL DIFF FLAG NO
[2024-08-13 12:35] LABS: Basophils Percent Auto 0.3 % (0-2); Eosinophils Absolute Auto 0.1 X10*3/uL (0.0-0.4); Hematocrit 39.7 % (42.0-52.0); Hemoglobin 13.8 g/dl (14.0-18.0); Imm Gran Abs Auto 0.04 X10*3/uL (0.00-0.03); Imm Gran Pct Auto 0.4 % (0.0-0.4); Lymphocytes Absolute Auto 1.7 X10*3/uL (1.2-4.9); Lymphocytes Percent Auto 15.7 % (20-40); Mean Corpuscular HGB Conc 34.8 g/dl (31.0-36.0); Mean Corpuscular Hemoglobin 31.2 pg (27.0-33.0); Mean Corpuscular Volume 89.8 fL (80.0-98.0); Mean Platelet Volume 8.7 fL (9.4-12.4); Monocytes Absolute Auto 0.7 X10*3/uL (0.1-1.2); Monocytes Percent Auto 6.3 % (2-11); Neutrophils Absolute Auto 8.4 x10*3/uL (2.0-8.3); Neutrophils Percent Auto 76.3 % (45-73); Platelet Count 264 X10*3/uL (160-400); Red Blood Count 4.42 X10*6/uL (4.60-5.80); Red Cell Distribution Width 12.1 % (11.0-16.0)
[2024-08-13 12:52] LABS: Alanine Aminotransferase 19 U/L (0-40); Albumin Level 4.1 g/dL (3.5-5.0); Alkaline Phosphatase 56 U/L (39-117); Anion Gap 17 (12-20); Aspartate Amino Transferase 24 U/L (5-37); Bilirubin Direct 0.2 mg/dL (0.0-0.5); Bilirubin Total 0.5 mg/dL (0.0-1.0); Blood Urea Nitrogen 14 mg/dL (9-16); Calcium 9.6 mg/dL (8.4-10.2); Carbon Dioxide 26 mmol/L (22-29); Chloride 103 mmol/L (96-108); Creatinine Clr Calc Pharmacy 63.9; Estimated Glomerular Filt Rate > 60; Glucose Random 155 mg/dL (60-115); Magnesium 1.7 mg/dL (1.6-2.6); Sodium 142 mmol/L (135-145); Total Protein 7.5 g/dL (6.5-8.0)
[2024-08-13 12:57] LABS: B Type Natriuretic Peptide 322 pg/mL (<100)
[2024-08-13 12:59] LABS: Troponin-I High Sensitivity 8.1 ng/L (<3.5-35.0)
[2024-08-13 13:12] LABS: Influenza A PCR NEGATIVE (Negative); Influenza B PCR NEGATIVE (Negative); Resp Syncy Virus RNA Qual PCR NEGATIVE (Negative); SARS COV2 PCR INHOUSE NEGATIVE (Negative)
[2024-08-13 17:49] VITALS: BP 168/91; PULSE 69; RESP 14; TEMP 36.7; O2SAT 97
[2024-08-13 18:05] LABS: Glucose, Whole Blood 112 mg/dL (60-115)
--- NOTE | 2024-08-13 19:09 | MHC.CM.ED ---
CMmet with patient at the request of Dr. Mercado. Pt is A&Ox3. Very quiet. Answers all questions, but little extraneous speech. Lives alone in senior housing in [place]. Denies any services. States he has VNA for his medications twice a week. Pt does not remember what VNA comes to his home. He has a walker, that he occasionally uses. He still drives. States he cooks. States he was recently inpatient at [facility] for his hx of depression. HCP is on file. PT has been ordered. Pt aware that PT will see him in the morning. Based on their recommendations and his insurance company authorization, he may go to [facility]. Pt states he has never been to [facility]. Will make local referrals. Pt does not have a qualifying stay. Has [employer] Medicare. CM will follow for discharge planning.
[2024-08-13] MEDS: Gabapentin 400 MG CAPSULE PO (19:36)
[2024-08-13 20:15] VITALS: BP 128/80; PULSE 64; RESP 16; TEMP 36.8; O2SAT 95
--- NOTE | 2024-08-13 21:18 | PC.NURSE ---
pt medicated per MAR
[2024-08-13 23:12] VITALS: BP 100/67; PULSE 58; RESP 16; TEMP 36.3; O2SAT 97
--- NOTE | 2024-08-13 23:12 | MHC.EDTECH ---
300ml of urine emptied from burgos bag
--- NOTE | 2024-08-13 23:14 | PC.NURSE ---
report given to Nicolasa Ivan RN
[2024-08-14] VITALS (9 sets, daily range): BP systolic 122–175; BP diastolic 67–88; PULSE 64–97; RESP 14–18; TEMP 36.3–36.6; O2SAT 93–97
--- NOTE | 2024-08-14 00:28 | MHC.EDTECH ---
Addendum entered by Joy Morrow 08/14/24 00:31: patient was placed in a hospital bed for comfort,belongings list completed,copy placed in chart Original Note: This tech took over care of patient at 2300,rounded and introduced self to pt,patient is sleepy,eyes closed,call hampton in reach
--- NOTE | 2024-08-14 00:40 | PC.NURSE ---
pt transitioned to hospital bed to promote comfort.
[2024-08-14 00:51] LABS: Appearance Urine Turbid; Color Urine Yellow; Glucose Urine UA Negative (Negative); Leukocyte Esterase Urine Large (3+) (Negative); Nitrite Urine Positive (Negative); PH 5.5 (5.0-9.0); Specific Gravity - Urine 1.015 (1.005-1.025); UMIC TRIGGER UACC YES; Urine Blood Large (3+) (Negative); Urine Ketones Negative (Negative); Urine Protein 30 (1+) mg/dL (Neg-Trace)
[2024-08-14 00:58] LABS: Bacteria Urine 4+ (None Seen); RBC Urine >20 /HPF (0-2); Squamous Epithelial Cell Urine 0-2 /HPF (0-2); UACC Culture Trigger YES; WBC Clumps Urine Present; WBC Urine >50 /HPF (0-5)
--- NOTE | 2024-08-14 01:00 | PC.NURSE ---
pt noted to have approx. 100ml of dark yellow, cloudy, foul smelling urine from burgos. UA obtained/sent to lab.
--- NOTE | 2024-08-14 03:45 | PC.NURSE ---
vss and up to date at this time. pt offers no complaints - resting comfortably in hospital bed in no apparent distress. respirations even/unlabored. med rec completed - will have MD order medication when able. pt pending PT/CM eval at this time. plan of care ongoing. call hampton placed within reach.
--- NOTE | 2024-08-14 06:26 | MHC.EDTECH ---
Rounds and vitals completed,emptied 100MLS of urine from Gross,pt is resting quietly,call hampton in reach,bed alarm on for safety
[2024-08-14] MEDS: cefTRIAXone sodium 1 GM VIAL IVPUSH (06:52)
--- NOTE | 2024-08-14 06:54 | PC.NURSE ---
20gIV placed in the right AC - cultures obtained/sent to lab. abx administered per provider order.
[2024-08-14 07:17] LABS: Lactic Acid 1.1 mmol/L (0.5-2.0)
[2024-08-14 08:00] LABS: Glucose, Whole Blood 80 mg/dL (60-115)
--- NOTE | 2024-08-14 08:44 | MHC.CM.ED ---
Addendum entered by Maribel Conti 08/14/24 10:41: Bed offers discussed with patient. [facility] [address] [facility] 2[facility] choice. [facility] is in the process of obtaining insurance auth. Patient will need a Level 2 from [facility]. T/W already submitted Level 1. Original Note: Patient remains in ER. Physical therapy eval completed. Short term rehab is recommended. Clinical updates sent to facilities still reviewing: [facility], [facility], [facility], [facility] [address], [facility], [facility], [facility], [facility], [facility], [facility], [facility], [facility], [facility], [facility], and [facility]. Continue to monitor for d/c needs.
--- NOTE | 2024-08-14 09:10 | MHC.EDTECH ---
patient was incontinent of BM clean him up boost and reposition in bed. Patient is calm nurse aware.
--- NOTE | 2024-08-14 09:36 | PHA.MEDREC ---
Addendum entered by Kurt Bautista RPh 08/14/24 10:57: Med rec was reviewed by [facility]. Patient confirmed with Leonor that he injects Tresiba in the morning. Original Note: Pharmacy Consult ? Medication Reconciliation Pharmacy has completed the medication reconciliation. Spoke to patient to confirm med list. Patient states he is no longer taking Jardiance 10 mg, Folic acid 1 mg, Lantus Solostar, Vitamin B-1 100 mg. Patient confirmed Tresiba Flextouch 18 units daily. patient last time he took his medication was 08/13/24.
--- NOTE | 2024-08-14 10:19 | PC.NURSE ---
patient resp even and unlabored, patient has chronic burgos draining urine. patient cleaned up this morning after BM, new pads and linens
[2024-08-14 11:37] LABS: Glucose, Whole Blood 118 mg/dL (60-115)
[2024-08-14 17:02] LABS: Glucose, Whole Blood 222 mg/dL (60-115)
--- NOTE | 2024-08-14 19:16 | PC.NURSE ---
A few meds not in pyxis this RN called pharm and spoke with Julius. Julius to send req meds. Pt requested and assisted with blanket. Pt a&ox3, no signs of distress Pt resting comfortably watching tv in bedside chair. Plan of care ongoing.
[2024-08-14 19:42] LABS: Glucose, Whole Blood 288 mg/dL (60-115)
[2024-08-14] MEDS: Metoprolol Succinate ER 50 MG TAB.ER.24H PO (19:51)
[2024-08-14] MEDS: amLODIPine Besylate 5 MG TABLET PO (19:52)
[2024-08-14] MEDS: Tamsulosin HCL 0.4 MG CAPSULE PO (19:52)
[2024-08-14] MEDS: Atorvastatin Calcium 40 MG TABLET PO (19:52)
[2024-08-14] MEDS: glipiZIDE 10 MG TABLET PO (19:52)
--- NOTE | 2024-08-14 20:03 | PC.NURSE ---
[facility] Plan of care ongoing.
--- NOTE | 2024-08-14 20:09 | PC.NURSE ---
Lisinopril needed, pharm called. Plan of care ongoing.
[2024-08-14] MEDS: lisinopriL 5 MG TABLET PO (20:26)
--- NOTE | 2024-08-14 20:28 | PC.NURSE ---
Med received from pharmacy Pt medicated per [facility] Plan of care ongoing.
[2024-08-14] MEDS: risperiDONE 2 MG TABLET PO (22:00)
[2024-08-14] MEDS: traZODone HCL 100 MG TABLET PO (22:00)
[2024-08-14] MEDS: Mirtazapine 15 MG TABLET PO (22:00)
--- NOTE | 2024-08-14 22:06 | PC.NURSE ---
Pt medicated per [facility] Plan of care ongoing.
--- NOTE | 2024-08-15 02:10 | PC.NURSE ---
Pt requested and given water and warm pack. Plan of care ongoing.
--- NOTE | 2024-08-15 02:44 | PC.NURSE ---
Pt requested and given water. Plan of care ongoing.
--- NOTE | 2024-08-15 02:45 | PC.NURSE ---
Pt requested and given warm pack plan of care ongoing.
[2024-08-15 06:00] VITALS: BP 144/77; PULSE 65; RESP 18; TEMP 36.6; O2SAT 99
--- NOTE | 2024-08-15 06:11 | PC.NURSE ---
Pt requested and given water. Plan of care ongoing.
--- NOTE | 2024-08-15 06:24 | PC.NURSE ---
Pt assisted with clean up of spilled water all over bedside table. Plan of care ongoing.
[2024-08-15 07:48] LABS: Glucose, Whole Blood 206 mg/dL (60-115)
[2024-08-15 08:05] VITALS: BP 166/79; PULSE 69; RESP 18; TEMP 36.4; O2SAT 100
--- NOTE | 2024-08-15 08:28 | PC.NURSE ---
Pt. eating breakfast tray in bedside recliner comfortably at this time. Denies complaints and/or pain. Plan of care ongoing.
[2024-08-15] MEDS: amLODIPine Besylate 5 MG TABLET PO (08:36)
[2024-08-15] MEDS: Atorvastatin Calcium 40 MG TABLET PO (08:36)
[2024-08-15] MEDS: Tamsulosin HCL 0.4 MG CAPSULE PO (08:36)
[2024-08-15] MEDS: risperiDONE 2 MG TABLET PO (08:37)
[2024-08-15] MEDS: Metoprolol Succinate ER 50 MG TAB.ER.24H PO (08:37)
[2024-08-15] MEDS: Magnesium Oxide 400 MG TABLET PO (08:37)
[2024-08-15] MEDS: Insulin Glargine,Hum.rec.anlog 100 UNIT/ML 10 ML VIAL 12 UNIT SUBCUT (08:37)
--- NOTE | 2024-08-15 08:37 | PC.NURSE ---
Awaiting Glipizide, Metformin and Lisinopril per pharmacy at this time.
--- NOTE | 2024-08-15 08:59 | PC.NURSE ---
Per HÉCTOR López: [facility] once insurance authorization is obtained.
[2024-08-15] MEDS: glipiZIDE 10 MG TABLET PO (09:33)
[2024-08-15] MEDS: metFORMIN HCl 1,000 MG TABLET 1000 MG PO (09:33)
[2024-08-15] MEDS: lisinopriL 5 MG TABLET PO (09:33)
--- NOTE | 2024-08-15 10:19 | MHC.CM.ED ---
Patient remains in ER overflow. [facility] can leave at 1pm. Ligia NOLAN booked. Med nec with chart. Patient, Oralia ROGERS and Bruna MOORE aware. Continue to monitor for d/c needs.
[2024-08-15 12:35] LABS: Glucose, Whole Blood 231 mg/dL (60-115)
--- NOTE | 2024-08-15 13:24 | PC.NURSE ---
Pt. leaving to [facility] with indwelling Gross catheter. Confirmed with pt. that this Gross was placed prior to arrival to the ED. Pt. states that it was placed by his Urologist a few weeks ago for urinary retention, and that he has a follow-up in a few weeks to have it removed.
== END 2024-08-15 13:25 ==
PROVIDERS: Emergency Medicine; Physician Assistant Medical; Emergency Provider Emergency Medicine; PCP Internal Medicine
DX: M54.50 Low back pain, unspecified (principal); G62.9 Polyneuropathy, unspecified; I10 Essential (primary) hypertension; I11.0 Hypertensive heart disease with heart failure; I50.9 Heart failure, unspecified; M79.672 Pain in left foot; M79.671 Pain in right foot; Z03.818 Encounter for observation for suspected exposure to other biological agents ruled out
CPT/HCPCS: 0241U; 36415; 71046; 80048; 80076; 81001; 82947; 83605; 83735; 83880; 84484; 85025; 87040; 87086; 87088; 87186; 93005; 96374; 97162; 99285; J0696

== ENCOUNTER → 2024-08-13 12:05 | Outpatient (BNV) | payer MEDICARE, SELFPAY | PROVIDERS: Emergency Provider Emergency Medicine; PCP Internal Medicine; Visit Provider Internal Medicine Cardiovascular Disease | DX: R94.31 Abnormal electrocardiogram [ECG] [EKG] (principal) | CPT/HCPCS: 93010 ==

== ENCOUNTER 2024-09-23 15:47 | Emergency (ER) | payer MEDICARE, SELFPAY ==
[2024-09-23 16:12] VITALS: BP 125/58; BP 155/60; PULSE 61; PULSE 68; RESP 18; TEMP 36.6; O2SAT 97; O2SAT 99; BMI 27.5
--- NOTE | 2024-09-23 16:37 | ED_ITS ---
HPI - General Adult General Chief complaint: General Medical Stated complaint: failure to thrive Time Seen by Provider: 09/23/24 16:16 Source: patient and EMS Mode of arrival: EMS Limitations: no limitations History of Present Illness ED Provider: Esther Castro NP HPI narrative: Patient is a 74-year-old male who presents emergency department for evaluation. He reports that he was discharged from [facility] rehab yesterday. When the VNA got to his home today he states they were concerned about his ability to manage at home and he agrees to this point. He states ?I was not doing my medication properly it was too complicated?. He does admit that she said it up into a medication box and he took his medication for today. However, he additionally did not take his insulin as he states he never received his were ball sensor back from when he was at the short-term rehab, believes he has a fingerstick glucometer at home but not certain where it is. He did not give himself his insulin because he was over sleeping. He feels generally weak despite using the walker. He admits that he does not feel safe to be at home Related Data Home Medications ?Medication ?Instructions ?Recorded ?Confirmed amlodipine 5 mg tablet 5 mg PO DAILY 08/14/24 09/23/24 atorvastatin 40 mg tablet 40 mg PO DAILY 08/14/24 09/23/24 clopidogrel 75 mg tablet 75 mg PO DAILY 08/14/24 09/24/24 insulin degludec 100 unit/mL (3 18 unit subcut DAILY 08/14/24 09/24/24 mL) subcutaneous pen (Tresiba FlexTouch U-100 insulin) lisinopril 5 mg tablet 5 mg PO DAILY 08/14/24 09/24/24 metformin 1,000 mg tablet 1,000 mg PO BID 08/14/24 09/24/24 metoprolol succinate 50 mg 50 mg PO DAILY 08/14/24 09/23/24 tablet,extended release 24 hr mirtazapine 15 mg tablet 15 mg PO BEDTIME 08/14/24 09/24/24 risperidone 2 mg tablet 2 mg PO BID 08/14/24 09/24/24 tamsulosin 0.4 mg capsule 0.4 mg PO DAILY 08/14/24 09/24/24 trazodone 100 mg tablet 100 mg PO BEDTIME 08/14/24 09/24/24 Previous Rx's ?Medication ?Instructions ?Recorded magnesium oxide 400 mg (241.3 mg 400 mg PO BIDPC 30 days #60 tabs 04/20/23 magnesium) tablet alcohol swabs 1 pad topical QIDACHS #100 ea 12/01/23 glipizide 10 mg tablet 10 mg PO BIDWM #60 tabs 12/01/23 lancets 28 gauge (FreeStyle #100 ea 12/01/23 Lancets) pen needle, diabetic 32 gauge x #100 ea 12/01/23 1/4 Allergies Allergy/AdvReac Type Severity Reaction Status Date / Time meperidine [From DEMEROL] Allergy Unknown UNKNOWN Verified 09/23/24 16:18 Review of Systems 2 Review of Systems: Yes all other systems are reviewed and are negative [facility] Past Medical History Attestation statement: The following information was validated with the patient. Source: old records reviewed Medical History BPH loc w urin obs/LUTS Severe recurrent major depressive disorder with psychosis CHF (congestive heart failure) Hemorrhagic stroke Cholelithiasis Alcohol use disorder HTN (hypertension) Surgical History No pertinent past surgical history Social History Social History Household Members: None Housing: Apartment Do you presently have visiting nurse or other home services: No Alcohol intake: current Alcohol intake frequency: 0-2 drinks per day Alcohol type: hard liquor Comment: pt continues refusing bed alarm; chair alarm on pt in bed Patient Tobacco Use Status: Former Tobacco user Smoked in Last 30 Days: No Second Hand Smoke Exposure: No Use of substances other than those prescribed or required for medical reasons: No Advance Directives: Yes Advance Directives on File: Yes Advance Directives Date on File: 04/12/23 service: No Current occupational status: disabled Physical Exam ED Vital Signs: Vital Signs - 24 hr 09/23/24 16:12 09/23/24 19:34 09/23/24 22:07 Temperature 97.9 F 98.1 F 97.9 F Pulse Rate 61 55 50 Respiratory Rate 18 18 18 Blood Pressure 125/58 L 115/63 133/70 Pulse Oximetry 97 97 98 Oxygen Delivery Method Room Air Room Air Room Air 09/23/24 23:45 09/24/24 06:33 09/24/24 07:51 Temperature 97.2 F 97.6 F Pulse Rate 50 77 77 Respiratory Rate 16 16 Blood Pressure 126/59 L 121/64 121/64 Pulse Oximetry 97 96 96 Oxygen Delivery Method Room Air Room Air BMI result Body Mass Index 27.5 Appearance: Alert.?Oriented to person, place and time. No acute distress.?Normal affect. Eyes: Pupils equal, round and reactive to light.? ENT: Pharynx normal.?? Neck: Normal inspection.? Neck supple.?? CVS: Heart sounds normal. Normal heart rate and rhythm.? Pulses normal.?? Respiratory: No respiratory distress.? Lung sounds clear to auscultation bilaterally?? Abdomen: Soft and non-tender. Normoactive bowel sounds. ?? Skin: Skin warm and dry.? Normal skin color.? Extremities: No lower extremity edema.? No calf ttp? Neuro: Moves all extremities spontaneously. Sensation intact bilaterally. No focal neuro deficits. Course Course Course Narrative: 09/24/24--1106-- physician observation continued. Vital signs stable. Labs reviewed. Physical therapy evaluated patient this morning and recommended short-term rehab. Pending case management, will continue to monitor for discharge needs Medications Administered Generic Name Dose Route Start Last Admin Trade Name Freq PRN Reason Stop Dose Admin Acetaminophen 650 mg 09/24/24 05:15 09/24/24 05:30 Acetaminophen 325 Mg Tablet PO 650 mg Q6H PRN Administration Pain, Mild (Pain Scale 1-3) Discontinued Medications Generic Name Dose Route Start Last Admin Trade Name Freq PRN Reason Stop Dose Admin Trazodone HCl 100 mg 09/24/24 00:29 09/24/24 00:51 Trazodone Hcl 100 Mg Tablet PO 09/24/24 00:30 100 mg ONCE ONE Administration Medical Decision Making Medical Decision Making MDM Narrative: Patient is a 74-year-old male past medical history of BPH, CHF, hemorrhagic CVA, cholelithiasis, ETOH use, hypertension presenting to emergency department for evaluation of generalized weakness, inability to care for himself at home as per HPI. Despite VNA coming into the home, they felt that he likely was not safe to be there and he agrees he does not feel safe to be residing home alone he was just discharged from short-term rehab yesterday. He states that he was feeling like he was well enough to get home, but he is unable to manage his medications, not certain that he can be managing his diabetes with glucose monitoring and insulin administration and despite use of his walker he states he has felt significantly weak at home. Weakness is not unilateral or sudden in onset making CVA/TIA less likely. You reported trauma or injury recently, no falls,, unlikely to be epidural or subdural hematoma. No associated neck or chest pain to suggest dissection. No associated headache to suggest complicated migraine or SAH. No evidence of ascending paralysis to suggest Guillain-Jefferson syndrome. No respiratory distress, no reported shortness breath or chest pain to suggest cardiovascular etiology, ACS Weakness most prominent distally rather than proximal, suspect less likely myopathy or PMR. Will obtain CBC to evaluate for leukocytosis/ anemia, CMP and lipase to evaluate for abnormal electrolytes /abnormal renal function/ abnormal hepatic/biliary function, and viral serologies. Will refer to case management as well as physical therapy for evaluation and safe disposition planning Differential Diagnosis Differential Diagnoses: The differential diagnosis associated with the presentation includes (See narrative above) Admission/Observation Consideration of admission/observation: Escalation of care including admission/observation considered (See narrative above and course narrative for further detail) Physician observation started at 18:00 on 09/23/24 pending case management physical therapy evaluation for safe disposition planning. Vital signs stable. Lab Data MDM Lab Attestation statement: I reviewed the patient's lab results. 09/23/24 17:53 09/23/24 17:53 Labs: Lab Results 09/23/24 09/23/24 09/23/24 Range/Units 17:53 18:00 21:55 WBC 9.8 (4.8-10.8) X10*3/uL RBC 4.15 L (4.60-5.80) X10*6/uL Hgb 12.7 L (14.0-18.0) g/dl Hct 36.5 L (42.0-52.0) % MCV 88.0 (80.0-98.0) fL MCH 30.6 (27.0-33.0) pg MCHC 34.8 (31.0-36.0) g/dl RDW 12.1 (11.0-16.0) % Plt Count 255 (160-400) X10*3/uL MPV 8.8 L (9.4-12.4) fL Immature Gran % (Auto) 0.1 (0.0-0.4) % Neut % (Auto) 66.0 (45-73) % Lymph % (Auto) 22.8 (20-40) % Trimble % (Auto) 8.9 (2-11) % Eos % (Auto) 1.8 (0-4) % Baso % (Auto) 0.4 (0-2) % Lymph # (Auto) 2.2 (1.2-4.9) X10*3/uL Trimble # (Auto) 0.9 (0.1-1.2) X10*3/uL Eos # (Auto) 0.2 (0.0-0.4) X10*3/uL Baso # (Auto) 0.0 (0.0-0.2) X10*3/uL Abs Immat Gran (auto) 0.01 (0.00-0.03) X10*3/uL Absolute Neuts (auto) 6.5 (2.0-8.3) x10*3/uL Absolute Nucleated RBC 0.000 (0.0-0.012) X10*3/uL Nucleated RBC % (auto) 0.0 (0.0-0.2) /100WBC Sodium 135 (135-145) mmol/L Potassium 4.9 D (3.3-5.1) mmol/L Chloride 99 (96-108) mmol/L Carbon Dioxide 26 (22-29) mmol/L Anion Gap 15 (12-20) BUN 17 H (9-16) mg/dL Creatinine 0.78 (0.5-1.4) mg/dL Estim Creat Clear Calc 84.4 Estimated GFR > 60 POC Glucose 158 H (60-115) mg/dL Random Glucose 138 H (60-115) mg/dL Calcium 8.8 D (8.4-10.2) mg/dL Total Bilirubin 0.4 (0.0-1.0) mg/dL AST 23 (5-37) U/L ALT 18 (0-40) U/L Alkaline Phosphatase 57 (39-117) U/L Total Protein 6.9 (6.5-8.0) g/dL Albumin 3.7 (3.5-5.0) g/dL Ethyl Alcohol < 10 mg/dL Influenza Type A (PCR) NEGATIVE (Negative) Influenza Type B (PCR) NEGATIVE (Negative) RSV RNA Qual (PCR) NEGATIVE (Negative) SARS-CoV-2 RNA (RT-PCR) NEGATIVE (Negative) 09/24/24 Range/Units 07:27 WBC (4.8-10.8) X10*3/uL RBC (4.60-5.80) X10*6/uL Hgb (14.0-18.0) g/dl Hct (42.0-52.0) % MCV (80.0-98.0) fL MCH (27.0-33.0) pg MCHC (31.0-36.0) g/dl RDW (11.0-16.0) % Plt Count (160-400) X10*3/uL MPV (9.4-12.4) fL Immature Gran % (Auto) (0.0-0.4) % Neut % (Auto) (45-73) % Lymph % (Auto) (20-40) % Trimble % (Auto) (2-11) % Eos % (Auto) (0-4) % Baso % (Auto) (0-2) % Lymph # (Auto) (1.2-4.9) X10*3/uL Trimble # (Auto) (0.1-1.2) X10*3/uL Eos # (Auto) (0.0-0.4) X10*3/uL Baso # (Auto) (0.0-0.2) X10*3/uL Abs Immat Gran (auto) (0.00-0.03) X10*3/uL Absolute Neuts (auto) (2.0-8.3) x10*3/uL Absolute Nucleated RBC (0.0-0.012) X10*3/uL Nucleated RBC % (auto) (0.0-0.2) /100WBC Sodium (135-145) mmol/L Potassium (3.3-5.1) mmol/L Chloride (96-108) mmol/L Carbon Dioxide (22-29) mmol/L Anion Gap (12-20) BUN (9-16) mg/dL Creatinine (0.5-1.4) mg/dL Estim Creat Clear Calc Estimated GFR POC Glucose 89 (60-115) mg/dL Random Glucose (60-115) mg/dL Calcium (8.4-10.2) mg/dL Total Bilirubin (0.0-1.0) mg/dL AST (5-37) U/L ALT (0-40) U/L Alkaline Phosphatase (39-117) U/L Total Protein (6.5-8.0) g/dL Albumin (3.5-5.0) g/dL Ethyl Alcohol mg/dL Influenza Type A (PCR) (Negative) Influenza Type B (PCR) (Negative) RSV RNA Qual (PCR) (Negative) SARS-CoV-2 RNA (RT-PCR) (Negative) Independent Historian Clinical information obtained from an independent historian. History obtained from or confirmed by: EMS External Record Review External record reviewed: Outpatient record Chronic Conditions Patient?s care impacted by: Other (See narrative above) Discharge Plan Discharge Clinical Impression: Weakness Patient Disposition: Still a Patient Prescriptions: No Action glipizide 10 mg Tablet 10 mg PO BIDWM Qty: 60 0RF alcohol swabs Pads, Medicated 1 pad TOPICAL QIDACHS Qty: 100 0RF Rx Instructions: Use four times a day or as directed. (DME) pen needle, diabetic 32 gauge x 1/4 needle Qty: 100 0RF Rx Instructions: use with Lantus Solostar Pen once daily (DME) lancets [FreeStyle Lancets] 28 gauge misc Qty: 100 0RF Rx Instructions: Test four times a day or as directed. magnesium oxide 400 mg (241.3 mg magnesium) Tablet 400 mg PO BIDPC 30 Days Qty: 60 0RF atorvastatin 40 mg tablet 40 mg PO DAILY metoprolol succinate 50 mg tablet extended release 24 hr 50 mg PO DAILY clopidogrel 75 mg tablet 75 mg PO DAILY amlodipine 5 mg tablet 5 mg PO DAILY risperidone 2 mg tablet 2 mg PO BID tamsulosin 0.4 mg capsule 0.4 mg PO DAILY trazodone 100 mg tablet 100 mg PO BEDTIME metformin 1,000 mg tablet 1,000 mg PO BID lisinopril 5 mg tablet 5 mg PO DAILY mirtazapine 15 mg tablet 15 mg PO BEDTIME insulin degludec [Tresiba FlexTouch U-100] 100 unit/mL (3 mL) insulin pen 18 unit subcut DAILY Print Language: Omani
[2024-09-23 17:58] LABS: Basophils Percent Auto 0.4 % (0-2); Eosinophils Absolute Auto 0.2 X10*3/uL (0.0-0.4); Eosinophils Percent Auto 1.8 % (0-4); Hematocrit 36.5 % (42.0-52.0); Hemoglobin 12.7 g/dl (14.0-18.0); Imm Gran Abs Auto 0.01 X10*3/uL (0.00-0.03); Imm Gran Pct Auto 0.1 % (0.0-0.4); Lymphocytes Absolute Auto 2.2 X10*3/uL (1.2-4.9); Lymphocytes Percent Auto 22.8 % (20-40); MANUAL DIFF FLAG NO; Mean Corpuscular HGB Conc 34.8 g/dl (31.0-36.0); Mean Corpuscular Hemoglobin 30.6 pg (27.0-33.0); Mean Platelet Volume 8.8 fL (9.4-12.4); Monocytes Absolute Auto 0.9 X10*3/uL (0.1-1.2); Monocytes Percent Auto 8.9 % (2-11); Neutrophils Absolute Auto 6.5 x10*3/uL (2.0-8.3); Platelet Count 255 X10*3/uL (160-400); Red Blood Count 4.15 X10*6/uL (4.60-5.80); Red Cell Distribution Width 12.1 % (11.0-16.0); White Blood Count 9.8 X10*3/uL (4.8-10.8)
[2024-09-23 18:16] LABS: Alanine Aminotransferase 18 U/L (0-40); Albumin Level 3.7 g/dL (3.5-5.0); Alkaline Phosphatase 57 U/L (39-117); Anion Gap 15 (12-20); Aspartate Amino Transferase 23 U/L (5-37); Bilirubin Total 0.4 mg/dL (0.0-1.0); Blood Urea Nitrogen 17 mg/dL (9-16); Calcium 8.8 mg/dL (8.4-10.2); Carbon Dioxide 26 mmol/L (22-29); Chloride 99 mmol/L (96-108); Creatinine Clr Calc Pharmacy 84.4; Estimated Glomerular Filt Rate > 60; Glucose Random 138 mg/dL (60-115); Potassium 4.9 mmol/L (3.3-5.1); Sodium 135 mmol/L (135-145); Total Protein 6.9 g/dL (6.5-8.0)
[2024-09-23 18:17] LABS: Ethanol < 10 mg/dL
[2024-09-23 18:46] LABS: Influenza A PCR NEGATIVE (Negative); Influenza B PCR NEGATIVE (Negative); Resp Syncy Virus RNA Qual PCR NEGATIVE (Negative); SARS COV2 PCR INHOUSE NEGATIVE (Negative)
[2024-09-23 19:34] VITALS: BP 115/63; PULSE 55; RESP 18; TEMP 36.7; O2SAT 97
--- NOTE | 2024-09-23 22:04 | PC.NURSE ---
Patient has no idea what the names of his medications are, only 4 meds are able to be verified through rx refills, provider Jesse made aware, will have to wait until AM for VNA to send over full list.
[2024-09-23 22:07] VITALS: BP 133/70; PULSE 50; RESP 18; TEMP 36.6; O2SAT 98
[2024-09-23 22:50] LABS: Glucose, Whole Blood 158 mg/dL (60-115)
[2024-09-23 23:45] VITALS: BP 126/59; PULSE 50; RESP 16; TEMP 36.2; O2SAT 97
[2024-09-24] MEDS: traZODone HCL 100 MG TABLET PO ×2 (00:51→21:22)
[2024-09-24] MEDS: Acetaminophen 325 MG TABLET 650 MG PO ×2 (05:30→21:22)
[2024-09-24 06:33] VITALS: BP 121/64; PULSE 77; RESP 16; TEMP 36.4; O2SAT 96
[2024-09-24 07:31] LABS: Glucose, Whole Blood 89 mg/dL (60-115)
[2024-09-24 07:51] VITALS: BP 121/64; PULSE 77; O2SAT 96
--- NOTE | 2024-09-24 09:41 | PC.NURSE ---
Patient reports wanting to be a full code- PA aware
--- NOTE | 2024-09-24 11:57 | MHC.CM.ED ---
Received case management consult overnight. Patient came to the ER d/t FTT. [facility]. Patient was d/c'd home. [facility]ett[facility] referral was made. However, they were not able to admit patient to their service because patient returned to the ER. [facility] able to offer a bed and is in the process of obtaining insurance auth. Patient will need [facility] Level 2. Level 1 already submitted. Continue to monitor for d/c needs.
[2024-09-24 11:59] LABS: Glucose, Whole Blood 233 mg/dL (60-115)
--- NOTE | 2024-09-24 12:27 | PHA.MEDREC ---
Pharmacy Consult ? Medication Reconciliation Pharmacy has completed the medication reconciliation, utilized list from [facility].
[2024-09-24] MEDS: Metoprolol Succinate ER 50 MG TAB.ER.24H PO (12:41)
[2024-09-24] MEDS: Atorvastatin Calcium 40 MG TABLET PO (12:41)
[2024-09-24] MEDS: Tamsulosin HCL 0.4 MG CAPSULE PO (12:41)
[2024-09-24] MEDS: metFORMIN HCl 1,000 MG TABLET 1000 MG PO ×2 (12:41→21:22)
[2024-09-24] MEDS: Clopidogrel Bisulfate 75 MG TABLET PO (12:41)
[2024-09-24] MEDS: amLODIPine Besylate 5 MG TABLET PO (12:41)
[2024-09-24] MEDS: Insulin Glargine,Hum.rec.anlog 100 UNIT/ML 10 ML VIAL 13 UNIT SUBCUT (12:41)
[2024-09-24] MEDS: lisinopriL 5 MG TABLET PO (12:41)
[2024-09-24 14:00] VITALS: BP 141/76; PULSE 63; RESP 17; TEMP 36; O2SAT 96
[2024-09-24 16:45] LABS: Glucose, Whole Blood 58 mg/dL (60-115)
--- NOTE | 2024-09-24 16:50 | MHC.EDTECH ---
I helped the Patient with the bedside commode did very well, and checked his BS it was 58 RN aware
[2024-09-24 17:38] LABS: Glucose, Whole Blood 123 mg/dL (60-115)
--- NOTE | 2024-09-24 18:32 | PC.NURSE ---
Patient's POC at dinner 58, ate entire dinner with juice. Rechecked and is 123. Resting comfortably , will continue to monitor.
[2024-09-24 19:19] VITALS: BP 117/67; PULSE 64; RESP 16; TEMP 36.5; O2SAT 97
[2024-09-24 19:21] LABS: Glucose, Whole Blood 123 mg/dL (60-115)
[2024-09-24] MEDS: Mirtazapine 15 MG TABLET PO (21:22)
[2024-09-24] MEDS: risperiDONE 2 MG TABLET PO (21:22)
--- NOTE | 2024-09-24 23:04 | MHC.EDTECH ---
emptied pts burgos @ 10:45 500cc yellow
[2024-09-25 06:51] VITALS: BP 167/84; PULSE 71; RESP 18; TEMP 36.3; O2SAT 97
[2024-09-25] MEDS: lisinopriL 5 MG TABLET PO (08:17)
[2024-09-25] MEDS: amLODIPine Besylate 5 MG TABLET PO (08:18)
[2024-09-25] MEDS: Tamsulosin HCL 0.4 MG CAPSULE PO (08:18)
[2024-09-25] MEDS: Atorvastatin Calcium 40 MG TABLET PO (08:18)
[2024-09-25] MEDS: metFORMIN HCl 1,000 MG TABLET 1000 MG PO (08:18)
[2024-09-25] MEDS: Insulin Glargine,Hum.rec.anlog 100 UNIT/ML 10 ML VIAL 13 UNIT SUBCUT (08:18)
[2024-09-25] MEDS: Metoprolol Succinate ER 50 MG TAB.ER.24H PO (08:18)
[2024-09-25] MEDS: Clopidogrel Bisulfate 75 MG TABLET PO (08:18)
[2024-09-25 08:30] LABS: Glucose, Whole Blood 109 mg/dL (60-115)
[2024-09-25] MEDS: risperiDONE 2 MG TABLET PO (09:41)
[2024-09-25 11:49] LABS: Glucose, Whole Blood 153 mg/dL (60-115)
--- NOTE | 2024-09-25 13:43 | MHC.CM.ED ---
Patient remains in ER overflow. Insurance auth has been obtained. Patient can leave at 3pm. Ligia NOLAN booked. Med [facility] with chart. Patient, Jessica ROGERS and Magdalena UNGER aware. Continue to monitor for d/c needs.
[2024-09-25 15:09] VITALS: BP 139/89; PULSE 74; RESP 12; TEMP 36.8
== END 2024-09-25 15:10 ==
PROVIDERS: Nurse Practitioner Family; Emergency Provider Emergency Medicine Emergency Medical Services; PCP Internal Medicine
DX: R53.1 Weakness (principal); I11.0 Hypertensive heart disease with heart failure; I50.9 Heart failure, unspecified; Z79.899 Other long term (current) drug therapy; Z79.4 Long term (current) use of insulin; Z03.818 Encounter for observation for suspected exposure to other biological agents ruled out
CPT/HCPCS: 0241U; 36415; 80053; 80307; 82947; 85025; 97162; 99285

== ENCOUNTER 2024-10-22 21:48 | Inpatient (IN) | payer MEDICARE, SELFPAY ==
--- NOTE | ~2024-10-22 | CT_ITS ---
CLINICAL HISTORY: fall CT cervical spine without contrast Comparison: None Findings: Reversal of the normal cervical lordosis is present from C4 to T1. There is osseous ankylosis of the C1 lateral masses with the occipital condyles. Multilevel degenerative changes are moderate, more severe at C5-C6 and C6-C7. No acute fractures or dislocations. No acute findings on limited view of the intracranial contents. Soft tissues of the neck are normal. Lung apices are clear. IMPRESSION: No acute findings. This document has been electronically signed by: Marques Grey MD, PHD on 10/23/2024 01:09:39
--- NOTE | ~2024-10-22 | CT_ITS ---
CLINICAL HISTORY: fall CT head without contrast Comparison: CT/SR - CT HEAD/BRAIN WO IV CON - 11/29/23 12:25 EDT Findings: No intra-axial mass, midline shift, hydrocephalus, or acute hemorrhage. Nonspecific white matter hypodensities are present with moderate volume loss. Old right basal ganglia and periventricular white matter lacunar infarct noted. There is no sinus or mastoid fluid. The orbits are unremarkable. No skull fracture. IMPRESSION: 1. No acute intracranial findings. This document has been electronically signed by: Marques Grey MD, PHD on 10/23/2024 01:14:31
--- NOTE | ~2024-10-22 | XR_ITS ---
CLINICAL HISTORY: fever, R O pneumonia 1 view chest x-ray Comparison: CR/SR - XR CHEST 1V - 11/22/23 22:35 EDT Findings: Streaky basilar interstitial opacities or infiltrates. Normal size heart. No acute fracture. IMPRESSION: Streaky basilar interstitial opacities or infiltrates. This document has been electronically signed by: Marques Grey MD, PHD on 10/23/2024 00:52:08
--- NOTE | ~2024-10-22 | CT_ITS ---
CLINICAL HISTORY: fall, abd pain, sepsis CT abdomen and pelvis without contrast Comparison: CT/REG/SR - CT ABDOMEN PELVIS WO IV CON - 11/23/23 00:13 EDT Findings: No consolidation or effusion. Scattered pancreatic calcifications reflect prior pancreatitis. Gallbladder, liver and spleen are within normal limits. The adrenal glands are unremarkable. Kidneys are non hydronephrotic. No bowel obstruction, pneumoperitoneum, or pneumatosis. The appendix is not visualized. Gross catheter decompresses the urinary bladder. No acute fracture. IMPRESSION: No acute findings. This document has been electronically signed by: Marques Grey MD, PHD on 10/23/2024 01:13:15
[2024-10-22 22:00] VITALS: BP 130/60; PULSE 91; RESP 16; TEMP 38.5; O2SAT 98; BMI 26.9
--- NOTE | 2024-10-22 22:09 | ECG_ITS ---
Test Reason : BACK PAIN Blood Pressure : */* mmHG Vent. Rate : 97 BPM Atrial Rate : 97 BPM P-R Int : 160 ms QRS Dur : 104 ms QT Int : 346 ms P-R-T Axes : 78 -10 85 degrees QTcB Int : 439 ms Artifact in tracing Normal sinus rhythm Premature atrial complexes Nonspecific ST and T wave abnormality Abnormal ECG When compared with ECG of 13-Aug-2024 12:21, Nonspecific T wave abnormality has replaced inverted T waves in Lateral leads Referred By: Generic ED Physician Electronically Signed By: KINGSTON OSBORNE
[2024-10-22 22:20] LABS: MANUAL DIFF FLAG NO
[2024-10-22] MEDS: cefTRIAXone sodium 1 GM VIAL IVPUSH (22:22)
[2024-10-22] MEDS: 0.9 % Sodium Chloride 1,000 ML 999 ML IV (22:25)
--- NOTE | 2024-10-22 22:28 | ED_ITS ---
HPI - General Adult General Chief complaint: Fall Stated complaint: SNF, CC HYPERTENSION Time Seen by Provider: 10/22/24 22:11 Source: patient, EMS, RN notes reviewed and old records reviewed Mode of arrival: EMS Limitations: no limitations History of Present Illness ED Provider: DR. Mercado HPI narrative: This is a 74-year-old male with PMH significant for HTN, BPH, DM 2 brought in by ambulance from rehab for a concern of a fall this morning patient is a poor historian unable to give history of the fall. In the emergency department patient found to be febrile of 101.2 and tachycardia. Patient with a chronic indwelling Gross catheter that was a concern from long term that was not functioning. Related Data Home Medications ?Medication ?Instructions ?Recorded ?Confirmed amlodipine 5 mg tablet 5 mg PO DAILY 08/14/24 09/23/24 atorvastatin 40 mg tablet 40 mg PO DAILY 08/14/24 09/23/24 clopidogrel 75 mg tablet 75 mg PO DAILY 08/14/24 09/24/24 insulin degludec 100 unit/mL (3 18 unit subcut DAILY 08/14/24 09/24/24 mL) subcutaneous pen (Tresiba FlexTouch U-100 insulin) lisinopril 5 mg tablet 5 mg PO DAILY 08/14/24 09/24/24 metformin 1,000 mg tablet 1,000 mg PO BID 08/14/24 09/24/24 metoprolol succinate 50 mg 50 mg PO DAILY 08/14/24 09/23/24 tablet,extended release 24 hr mirtazapine 15 mg tablet 15 mg PO BEDTIME 08/14/24 09/24/24 risperidone 2 mg tablet 2 mg PO BID 08/14/24 09/24/24 tamsulosin 0.4 mg capsule 0.4 mg PO DAILY 08/14/24 09/24/24 trazodone 100 mg tablet 100 mg PO BEDTIME 08/14/24 09/24/24 acetaminophen 325 mg tablet 650 mg PO Q6H PRN Fever Or Pain 09/24/24 09/24/24 bisacodyl 10 mg rectal suppository 10 mg ND DAILY PRN if no BM for 8 09/24/24 09/24/24 hours after MOM diclofenac sodium 1 % topical gel 2 g topical BID 09/24/24 09/24/24 gabapentin 300 mg capsule 300 mg PO TID 09/24/24 09/24/24 insulin lispro 100 unit/mL 1 sliding scale dose subcut 09/24/24 09/24/24 subcutaneous solution (Humalog USEASDIRECTD U-100 Insulin) magnesium hydroxide 400 mg/5 mL 30 ml PO DAILY PRN if no BM for 3 09/24/24 09/24/24 oral suspension (Milk of Magnesia) days sodium phosphates 19 gram-7 118 ml ND DAILY PRN if no BM for 8 09/24/24 09/24/24 gram/118 mL enema (Fleet Enema) hours after bisacodyl supp Previous Rx's ?Medication ?Instructions ?Recorded magnesium oxide 400 mg (241.3 mg 400 mg PO BIDPC 30 days #60 tabs 04/20/23 magnesium) tablet glipizide 10 mg tablet 10 mg PO BIDWM #60 tabs 12/01/23 lancets 28 gauge (FreeStyle #100 ea 12/01/23 Lancets) pen needle, diabetic 32 gauge x #100 ea 12/01/23 1/ Allergies Allergy/AdvReac Type Severity Reaction Status Date / Time meperidine [From DEMEROL] Allergy Unknown UNKNOWN Verified 10/22/24 22:06 Review of Systems 2 Review of Systems: Yes Unobtainable due to mental status PMFSH Past Medical History Medical History BPH loc w urin obs/LUTS Severe recurrent major depressive disorder with psychosis CHF (congestive heart failure) Hemorrhagic stroke Cholelithiasis Alcohol use disorder HTN (hypertension) Surgical History No pertinent past surgical history Social History Social History Household Members: None Housing: Apartment Do you presently have visiting nurse or other home services: No Alcohol intake: current Alcohol intake frequency: 0-2 drinks per day Alcohol type: hard liquor Comment: pt continues refusing bed alarm; chair alarm on pt in bed Patient Tobacco Use Status: Former Tobacco user Smoked in Last 30 Days: No Second Hand Smoke Exposure: No Advance Directives Date on File: 04/12/23 Do you have a plan to hurt others: No Plan service: No Current occupational status: disabled Physical Exam ED Vital Signs: Vital Signs - 24 hr 10/22/24 22:00 10/22/24 22:33 10/22/24 23:19 Temperature 101.3 F H 98.6 F Pulse Rate 91 97 101 H Respiratory Rate 16 16 25 H Blood Pressure 130/60 127/74 112/60 Pulse Oximetry 98 97 96 Oxygen Delivery Method Room Air Room Air Room Air 10/23/24 00:39 10/23/24 01:02 Temperature 98.3 F Pulse Rate 97 102 H Respiratory Rate 20 16 Blood Pressure 101/56 L 106/55 L Pulse Oximetry 93 Oxygen Delivery Method Room Air Room Air BMI result Body Mass Index 26.9 Vital signs have been reviewed and appear to be correct. Blood pressure elevated. Heart rate normal. Respiratory rate normal. febrile, Oxygen saturation normal. Appearance: Alert. Oriented X2 place and person. No acute distress. Head: Normal external exam. Normocephalic. Atraumatic. No Metcalf signs noted. No raccoon eyes noted Eyes: PERRLA. EOMI. Conjunctiva and sclera normal. Eyelids normal. ENT: TM's Normal. Pharynx normal. Uvula midline. Moist mucous membranes. No trismus noted. No drooling noted. No muffled voice noted. Neck: Normal inspection. Neck supple. FROM. No adenopathy. Thyroid Normal. No meningeal signs. No neck mass noted. CVS: Normal heart rate and rhythm. Heart sound normal. No murmurs noted. Pulses normal throughout. Respiratory: No respiratory distress. Painless inspiration. Breath sounds normal. No wheezes/rales/rhonchi noted. Chest nontender. No accessory muscle usage noted or decreased air movement noted. Abdomen: Soft and nontender. Bowel sounds normal in all 4 quadrants. No distention noted. No organomegaly noted. No visible injury noted. : Gross catheter is in place and was replaced in the emergency department by a new 1 patient has a tyron hematuria required 3 ways catheter with CBI. Back: No CVA tenderness. Full range of motion noted. Skin: Skin warm and dry. Normal skin color. Normal skin turgor. No rashes/lesions/lacerations noted. Extremities: No lower extremity edema. Extremities exhibit normal range of motion. Extremities nontender. Neuro: Oriented X2. Cranial nerve exam: II-XII are grossly intact No motor deficit. No sensory deficit. Reflexes normal. Course Reevaluation(s) Reevaluation #1: Patient presented from long term after he sustained a mechanical fall. 1. Replace Gross catheter and continue with CBI. 2. History of hemorrhagic stroke will consider head CT after a fall at the long term. 3. Patient met criteria for sepsis likely UTI will cover with ceftriaxone and IV fluids. Time: 22:37 Reevaluation #2: UTI with sepsis: 1. Gross catheter was replaced by 3 ways catheter and patient require CBI hematuria is significantly clearing. 2. Received IV fluids and ceftriaxone. 3. Leukocytopenia. 4. S/p fall with questioning head injury head CT shows no bleeding. 5. Chest x-ray questioning infiltrate? 5. Admit to medical floor. Time: 00:24 Reevaluation #3: repeat lactic acid is 4 now patient is in septic shock, given the patient is obese will use ideal body weight ( 73 kg) to calculate 30 cc/kg normal saline total of2,190 CC. Time: 01:29 Medications Administered Discontinued Medications Generic Name Dose Route Start Last Admin Trade Name Freq PRN Reason Stop Dose Admin Ceftriaxone Sodium 1 gm 10/22/24 22:15 10/22/24 22:22 Ceftriaxone Sodium 1 Gm Vial IVPUSH 10/22/24 22:16 1 gm ONCE ONE Administration Sodium Chloride 1,000 mls @ 999 mls/hr 10/22/24 22:15 10/23/24 00:32 Ns IV 10/22/24 23:15 Infused .Q1H1M ONE Infusion Medical Decision Making Differential Diagnosis Differential Diagnoses: The differential diagnosis associated with the presentation includes ( Intracranial bleed, UTI, pyelonephritis, hematuria, acute colitis, acute diverticulitis, obstructing kidney stone.) Admission/Observation Consideration of admission/observation: Escalation of care including admission/observation considered Consult Healthcare Provider Management of the patient was discussed with: Hospitalist ( Dr. Shah) Lab Data MDM Lab Attestation statement: I reviewed the patient's lab results. 10/22/24 22:12 10/22/24 22:12 Labs: Lab Results 10/22/24 10/22/24 10/22/24 Range/Units 22:12 22:16 23:08 WBC 2.8 L (4.8-10.8) X10*3/uL RBC 4.22 L (4.60-5.80) X10*6/uL Hgb 12.6 L (14.0-18.0) g/dl Hct 36.4 L (42.0-52.0) % MCV 86.3 (80.0-98.0) fL MCH 29.9 (27.0-33.0) pg MCHC 34.6 (31.0-36.0) g/dl RDW 13.6 (11.0-16.0) % Plt Count 258 (160-400) X10*3/uL MPV 8.7 L (9.4-12.4) fL Immature Gran % (Auto) 0.4 (0.0-0.4) % Neut % (Auto) 73.0 (45-73) % Lymph % (Auto) 25.1 (20-40) % [place] % (Auto) 1.1 L (2-11) % Eos % (Auto) 0.0 (0-4) % Baso % (Auto) 0.4 (0-2) % Lymph # (Auto) 0.7 L (1.2-4.9) X10*3/uL [place] # (Auto) 0.0 L (0.1-1.2) X10*3/uL Eos # (Auto) 0.0 (0.0-0.4) X10*3/uL Baso # (Auto) 0.0 (0.0-0.2) X10*3/uL Abs Immat Gran (auto) 0.01 (0.00-0.03) X10*3/uL Absolute Neuts (auto) 2.0 (2.0-8.3) x10*3/uL Absolute Nucleated RBC 0.000 (0.0-0.012) X10*3/uL Nucleated RBC % (auto) 0.0 (0.0-0.2) /100WBC PT 16.0 H (10.9-12.4) SEC INR 1.4 H (0.9-1.1) Sodium 139 (135-145) mmol/L Potassium 4.5 (3.3-5.1) mmol/L Chloride 107 (96-108) mmol/L Carbon Dioxide 20 L (22-29) mmol/L Anion Gap 17 (12-20) BUN 38 H (9-16) mg/dL Creatinine 1.33 (0.5-1.4) mg/dL Estim Creat Clear Calc 49.5 Estimated GFR 52 Random Glucose 128 H (60-115) mg/dL Lactic Acid 2.6 H* (0.5-2.0) mmol/L Calcium 9.7 D (8.4-10.2) mg/dL Magnesium 1.8 (1.6-2.6) mg/dL Total Bilirubin 0.4 (0.0-1.0) mg/dL AST 70 H (5-37) U/L ALT 24 (0-40) U/L Alkaline Phosphatase 65 (39-117) U/L Troponin I High Sens 25.7 D (<3.5-35.0) ng/L B-Natriuretic Peptide 168 H (<100) pg/mL Total Protein 7.7 (6.5-8.0) g/dL Albumin 3.9 (3.5-5.0) g/dL Urine Color Cancelled [place] A Urine Appearance Cancelled Cloudy Urine pH Cancelled >= 9.0 Ur Specific [place] Cancelled 1.015 Urine Protein Cancelled See Note Urine Glucose (UA) Cancelled Negative Urine Ketones Cancelled Negative Urine Blood Cancelled Large (3+) H Urine Nitrite Cancelled See Note Ur Leukocyte Esterase Cancelled See Note Urine RBC >20 H (0-2) /HPF Urine WBC >50 H (0-5) /HPF Ur Squamous Epith Cells 0-2 (0-2) /HPF Urine Bacteria 4+ (None Seen) Hyaline Casts 6-10 (0-2) /LPF Influenza Type A (PCR) NEGATIVE (Negative) Influenza Type B (PCR) NEGATIVE (Negative) RSV RNA Qual (PCR) NEGATIVE (Negative) SARS-CoV-2 RNA (RT-PCR) NEGATIVE (Negative) Independent Interpretation I performed an independent interpretation of an: Plain X-Ray ( chest:Streaky basilar interstitial opacities or infiltrates) and CT Scan ( head /abdomen and pelvis: No acute pathology.) Radiology Impression Discussion of test interpretation with radiology: I have reviewed the radiologist's reading. Discharge Plan Discharge Clinical Impression: Sepsis, Acute UTI, Hematuria, Leukocytopenia, unspecified Patient Disposition: Admitted As Inpatient Print Language: Estonian
[2024-10-22 22:29] LABS: INTERNATIONAL NORM RATIO 1.4 (0.9-1.1)
[2024-10-22 22:31] LABS: Basophils Percent Auto 0.4 % (0-2); Hematocrit 36.4 % (42.0-52.0); Hemoglobin 12.6 g/dl (14.0-18.0); Imm Gran Abs Auto 0.01 X10*3/uL (0.00-0.03); Imm Gran Pct Auto 0.4 % (0.0-0.4); Lymphocytes Absolute Auto 0.7 X10*3/uL (1.2-4.9); Lymphocytes Percent Auto 25.1 % (20-40); Mean Corpuscular HGB Conc 34.6 g/dl (31.0-36.0); Mean Corpuscular Hemoglobin 29.9 pg (27.0-33.0); Mean Corpuscular Volume 86.3 fL (80.0-98.0); Mean Platelet Volume 8.7 fL (9.4-12.4); Monocytes Percent Auto 1.1 % (2-11); Platelet Count 258 X10*3/uL (160-400); Red Blood Count 4.22 X10*6/uL (4.60-5.80); Red Cell Distribution Width 13.6 % (11.0-16.0); White Blood Count 2.8 X10*3/uL (4.8-10.8)
[2024-10-22 22:33] VITALS: BP 127/74; PULSE 97; RESP 16; TEMP 37; O2SAT 97
[2024-10-22 22:38] LABS: Alanine Aminotransferase 24 U/L (0-40); Albumin Level 3.9 g/dL (3.5-5.0); Alkaline Phosphatase 65 U/L (39-117); Anion Gap 17 (12-20); Aspartate Amino Transferase 70 U/L (5-37); Bilirubin Total 0.4 mg/dL (0.0-1.0); Blood Urea Nitrogen 38 mg/dL (9-16); Calcium 9.7 mg/dL (8.4-10.2); Carbon Dioxide 20 mmol/L (22-29); Chloride 107 mmol/L (96-108); Creatinine Clr Calc Pharmacy 49.5; Estimated Glomerular Filt Rate 52; Glucose Random 128 mg/dL (60-115); Magnesium 1.8 mg/dL (1.6-2.6); Potassium 4.5 mmol/L (3.3-5.1); Sodium 139 mmol/L (135-145); Total Protein 7.7 g/dL (6.5-8.0)
[2024-10-22 22:42] LABS: B Type Natriuretic Peptide 168 pg/mL (<100)
[2024-10-22 22:45] LABS: Troponin-I High Sensitivity 25.7 ng/L (<3.5-35.0)
[2024-10-22 22:53] LABS: Lactic Acid 2.6 mmol/L (0.5-2.0)
[2024-10-22 23:03] LABS: Influenza A PCR NEGATIVE (Negative); Influenza B PCR NEGATIVE (Negative); Resp Syncy Virus RNA Qual PCR NEGATIVE (Negative); SARS COV2 PCR INHOUSE NEGATIVE (Negative)
--- NOTE | 2024-10-22 23:11 | PC.NURSE ---
[facility] pt had a fall around 0500, per EMS pt was not immediately transferred as they were waiting on authorization from family. pt arrives c/o 06/13, no HS no LOC , no thinners per pt. LBP. Pt febrile on arrival 101.2 rectally, b/p 160/90 lungs CTA. Pt has burgos present with punch colored urine present. per burgos replaced, with BRB, MD Mercado called to bedside, sepsis alert initiated, 3 way burgos placed - CBI initiated.
--- NOTE | 2024-10-22 23:12 | PC.NURSE ---
Second UA ordered and taken from initial insertion of 24F [address] Vazquez.
[2024-10-22 23:19] VITALS: BP 112/60; PULSE 101; RESP 25; O2SAT 96
[2024-10-22 23:26] LABS: Appearance Urine Cloudy; Color Urine Orange; Glucose Urine UA Negative (Negative); PH >= 9.0 (5.0-9.0); Specific Gravity - Urine 1.015 (1.005-1.025); UMIC TRIGGER UACC YES; Urine Blood Large (3+) (Negative); Urine Ketones Negative (Negative)
[2024-10-22 23:30] LABS: Bacteria Urine 4+ (None Seen); RBC Urine >20 /HPF (0-2); Squamous Epithelial Cell Urine 0-2 /HPF (0-2); UACC Culture Trigger YES; WBC Urine >50 /HPF (0-5)
--- NOTE | 2024-10-22 23:39 | PC.NURSE ---
This policy writer assumed care of this Pt at 2300. Per provider [facility] CBI to be started at this time. Pt tolerating well.
[2024-10-23] VITALS (17 sets, daily range): BP systolic 87–139; BP diastolic 50–81; PULSE 60–102; RESP 12–20; TEMP 36.5–36.9; O2SAT 93–99
[2024-10-23 00:17] LABS: Reflex Lactate? Lactic Acid Added
--- NOTE | 2024-10-23 01:30 | P.HPHOSP_ITS ---
History of Present Illness Date of Service: 10/23/24 Chief Complaint: Fall This is a 74-year-old male with pertinent history of congestive heart failure with reduced ejection fraction, hypertension, insulin-dependent diabetes mellitus, history of hemorrhagic CVA, BPH, alcohol use disorder who was brought to the emergency department for evaluation after a fall. Patient states he was trying to grab the handle of his closet when he slipped and fell. He did not lose consciousness prior to the fall. No dizziness or lightheadedness. No chest pain or palpitations prior to the fall. No jerking movement of extremities. Patient states he has been feeling weak lately. Patient has a chronic indwelling catheter which was not functioning. In the emergency department, patient was found to be septic with tachycardia and fever 101.2. Urine concerning for UTI. Hematuria noted and patient was initiated on CBI. Also given IV crystalloids and IV ceftriaxone in the ER. Review of Systems 2 Constitutional: Constitutional: Reports fatigue, Reports malaise and Reports weakness Cardiovascular: Cardiovascular: Reports no additional cardiovascular complaints Respiratory: Respiratory: Reports no additional respiratory complaints Gastrointestinal: Gastrointestinal: Reports no additional gastrointestinal complaints Genitourinary: Genitourinary: Reports hematuria Neurologic: Reports weakness Endocrine: Endocrine: Reports fatigue [facility] History BPH loc w urin obs/LUTS Severe recurrent major depressive disorder with psychosis CHF (congestive heart failure) Hemorrhagic stroke Cholelithiasis Alcohol use disorder HTN (hypertension) Pertinent family history: Not significant due to age Surgical History No pertinent past surgical history Social History Household Members: None Housing: Apartment Do you presently have visiting nurse or other home services: No Alcohol intake: current Alcohol intake frequency: 0-2 drinks per day Alcohol type: hard liquor Comment: pt continues refusing bed alarm; chair alarm on pt in bed Patient Tobacco Use Status: Former Tobacco user Smoked in Last 30 Days: No Second Hand Smoke Exposure: No Advance Directives: No Advance Directives Information Provided: Yes Advance Directives Date on File: 04/12/23 Do you have a plan to hurt others: No Plan service: No Current occupational status: disabled Meds Allergies Allergy/AdvReac Type Severity Reaction Status Date / Time meperidine [From DEMEROL] Allergy Unknown UNKNOWN Verified 10/22/24 22:06 Active Medications: Current Medications Sodium Chloride (Ns) 2,190 mls @ 2,190 mls/hr IV .Q1H STA Stop: 10/23/24 02:25 Home Medications ?Medication ?Instructions ?Recorded ?Confirmed ?Last Taken ?Type amlodipine 5 mg tablet 5 mg PO DAILY 08/14/24 09/23/24 08/13/24 History atorvastatin 40 mg tablet 40 mg PO DAILY 08/14/24 09/23/24 08/13/24 History clopidogrel 75 mg tablet 75 mg PO DAILY 08/14/24 09/24/24 08/13/24 History insulin degludec 100 unit/mL (3 18 unit subcut DAILY 08/14/24 09/24/24 08/13/24 History mL) subcutaneous pen (Tresiba FlexTouch U-100 insulin) lisinopril 5 mg tablet 5 mg PO DAILY 08/14/24 09/24/24 08/13/24 History metformin 1,000 mg tablet 1,000 mg PO BID 08/14/24 09/24/24 08/13/24 History metoprolol succinate 50 mg 50 mg PO DAILY 08/14/24 09/23/24 08/13/24 History tablet,extended release 24 hr mirtazapine 15 mg tablet 15 mg PO BEDTIME 08/14/24 09/24/24 08/13/24 History risperidone 2 mg tablet 2 mg PO BID 08/14/24 09/24/24 08/13/24 History tamsulosin 0.4 mg capsule 0.4 mg PO DAILY 08/14/24 09/24/24 08/13/24 History trazodone 100 mg tablet 100 mg PO BEDTIME 08/14/24 09/24/24 08/13/24 History acetaminophen 325 mg tablet 650 mg PO Q6H PRN Fever Or Pain 09/24/24 09/24/24 Unknown History bisacodyl 10 mg rectal suppository 10 mg LA DAILY PRN if no BM for 8 09/24/24 09/24/24 Unknown History hours after MOM diclofenac sodium 1 % topical gel 2 g topical BID 09/24/24 09/24/24 Unknown History gabapentin 300 mg capsule 300 mg PO TID 09/24/24 09/24/24 Unknown History insulin lispro 100 unit/mL 1 sliding scale dose subcut 09/24/24 09/24/24 Unknown History subcutaneous solution (Humalog USEASDIRECTD U-100 Insulin) magnesium hydroxide 400 mg/5 mL 30 ml PO DAILY PRN if no BM for 3 09/24/24 09/24/24 Unknown History oral suspension (Milk of Magnesia) days sodium phosphates 19 gram-7 118 ml LA DAILY PRN if no BM for 8 09/24/24 09/24/24 Unknown History gram/118 mL enema (Fleet Enema) hours after bisacodyl supp Physical Exam 2 Vital Signs and Narrative: Vital Signs: Last Vital Signs Temp 98.3 F 10/23/24 00:39 Pulse 102 H 10/23/24 01:02 Resp 16 10/23/24 01:02 BP 106/55 L 10/23/24 01:02 Pulse Ox 93 10/23/24 00:39 O2 Del Method Room Air 10/23/24 01:02 BMI result Body Mass Index 26.9 Elderly male lying in bed in no distress Neck supple, no JVD Regular rate and rhythm, S1-S2 heard Regular breath sounds bilaterally, no wheezing or crackles appreciated Abdomen soft nontender, no guarding, no rigidity Patient is awake, alert and oriented x2 ; no focal motor deficit Psych: Normal mood No pedal edema Results Labs 10/23/24 04:28 10/23/24 04:28 Labs: Laboratory Results - last 24 hr 10/22/24 10/22/24 10/22/24 22:12 22:16 23:08 MCV 86.3 MCH 29.9 MCHC 34.6 RDW 13.6 Plt Count 258 MPV 8.7 L Immature Gran % (Auto) 0.4 Neut % (Auto) 73.0 Lymph % (Auto) 25.1 [place] % (Auto) 1.1 L Eos % (Auto) 0.0 Baso % (Auto) 0.4 Lymph # (Auto) 0.7 L [place] # (Auto) 0.0 L Eos # (Auto) 0.0 Baso # (Auto) 0.0 Abs Immat Gran (auto) 0.01 Absolute Neuts (auto) 2.0 Absolute Nucleated RBC 0.000 Nucleated RBC % (auto) 0.0 PT 16.0 H INR 1.4 H Anion Gap 17 Estim Creat Clear Calc 49.5 Estimated GFR 52 Random Glucose 128 H Lactic Acid 2.6 H* Lactic Acid F/U @ 2Hr Calcium 9.7 D Magnesium 1.8 Total Bilirubin 0.4 AST 70 H ALT 24 Alkaline Phosphatase 65 B-Natriuretic Peptide 168 H Total Protein 7.7 Albumin 3.9 Urine Color Cancelled [place] A Urine Appearance Cancelled Cloudy Urine pH Cancelled >= 9.0 Ur Specific [place] Cancelled 1.015 Urine Protein Cancelled See Note Urine Glucose (UA) Cancelled Negative Urine Ketones Cancelled Negative Urine Blood Cancelled Large (3+) H Urine Nitrite Cancelled See Note Ur Leukocyte Esterase Cancelled See Note Urine RBC >20 H Urine WBC >50 H Ur Squamous Epith Cells 0-2 Urine Bacteria 4+ Hyaline Casts 6-10 Influenza Type A (PCR) NEGATIVE Influenza Type B (PCR) NEGATIVE RSV RNA Qual (PCR) NEGATIVE SARS-CoV-2 RNA (RT-PCR) NEGATIVE 10/23/24 01:00 MCV MCH MCHC RDW Plt Count MPV Immature Gran % (Auto) Neut % (Auto) Lymph % (Auto) [place] % (Auto) Eos % (Auto) Baso % (Auto) Lymph # (Auto) [place] # (Auto) Eos # (Auto) Baso # (Auto) Abs Immat Gran (auto) Absolute Neuts (auto) Absolute Nucleated RBC Nucleated RBC % (auto) PT INR Anion Gap Estim Creat Clear Calc Estimated GFR Random Glucose Lactic Acid Lactic Acid F/U @ 2Hr 4.0 H* Calcium Magnesium Total Bilirubin AST ALT Alkaline Phosphatase B-Natriuretic Peptide Total Protein Albumin Urine Color Urine Appearance Urine pH Ur Specific [place] Urine Protein Urine Glucose (UA) Urine Ketones Urine Blood Urine Nitrite Ur Leukocyte Esterase Urine RBC Urine WBC Ur Squamous Epith Cells Urine Bacteria Hyaline Casts Influenza Type A (PCR) Influenza Type B (PCR) RSV RNA Qual (PCR) SARS-CoV-2 RNA (RT-PCR) Assessment and Plan (1) Acute UTI: Status: Acute (2) Sepsis: Status: Acute Plan This is a 74-year-old male with pertinent history of mood disorder, hypertension, insulin-dependent diabetes mellitus, history of CVA, BPH, alcohol use disorder, congestive heart failure with reduced ejection fraction who was brought to the emergency department for evaluation after a fall. #. Severe sepsis due to acute UTI: Will admit patient with IV ceftriaxone. Resuscitated with IV crystalloids. Lactic acid and blood culture obtained. Urine culture pending #. Hypoglycemia in a patient with insulin-dependent diabetes mellitus due to above: Administered IV dextrose p.r.n.. Closely monitor. Hold basal insulin until blood glucose improves #. Hematuria with blood loss anemia: Due to UTI. Patient placed on CBI in the ER. Urology consulted. Closely monitor H&H. Hold Plavix #. Acute lactic acidosis due to sepsis #. History of CVA: Hold Plavix #. BPH: On Flomax #. Mood disorder: Continue home mood stabilizers #. Hypertension: Hold home antihypertensives in the setting of sepsis #. Systolic heart failure: ?not on diuretics. On beta-dottie and ALVERTO- inhibitor Med rec pending DVT prophylaxis: SCDs Full code. MOLST form present on admission Admit as inpatient and will require two night minimum hospital stay for IV antibiotics (as above), which is not possible in a lesser acute setting. Quality Stroke Does the patient have a stroke diagnosis?: No VTE Prior VTE?: No VTE Risk Level:: Medical - moderate - high VTE Device Contraindication: N/A - Device Ordered VTE Drug Contraindication: Treatment Not Indicated
[2024-10-23] MEDS: 0.9 % Sodium Chloride 2,190 ML 2190 ML IV (01:42)
--- NOTE | 2024-10-23 02:29 | PC.NURSE ---
Per provider [facility], 30ml/kg fluids to be given per MAR.
[2024-10-23 03:03] LABS: Reflex Lactate? 2 Y
[2024-10-23 05:11] LABS: Hematocrit 30.9 % (42.0-52.0); Hemoglobin 10.4 g/dl (14.0-18.0); Mean Corpuscular HGB Conc 33.7 g/dl (31.0-36.0); Mean Corpuscular Hemoglobin 29.9 pg (27.0-33.0); Mean Corpuscular Volume 88.8 fL (80.0-98.0); Platelet Count 212 X10*3/uL (160-400); Red Blood Count 3.48 X10*6/uL (4.60-5.80); White Blood Count 21.6 X10*3/uL (4.8-10.8)
[2024-10-23 05:40] LABS: Anion Gap 13 (12-20); Blood Urea Nitrogen 33 mg/dL (9-16); Calcium 8.5 mg/dL (8.4-10.2); Carbon Dioxide 19 mmol/L (22-29); Chloride 113 mmol/L (96-108); Creatinine Clr Calc Pharmacy 63.9; Estimated Glomerular Filt Rate > 60; Glucose Random 59 mg/dL (60-115); Sodium 141 mmol/L (135-145)
[2024-10-23] MEDS: Dextrose 50 % 25 GM/50 ML SYRINGE IVPUSH (05:49)
[2024-10-23 06:11] LABS: Glucose, Whole Blood 157 mg/dL (60-115)
[2024-10-23 06:23] LABS: Glucose, Whole Blood 165 mg/dL (60-115)
[2024-10-23 06:39] LABS: Glucose, Whole Blood 158 mg/dL (60-115)
--- NOTE | 2024-10-23 06:45 | PC.NURSE ---
0542: Blood glucose 59, Dr. Shah made aware. Pt given IV dextrose per MAR. Dextrose effective, POC maintained >70 x 3.
[2024-10-23] MEDS: 0.9 % Sodium Chloride Flush 3 ML SYRINGE IVFLUSH (07:22)
--- NOTE | 2024-10-23 07:52 | PHA.MEDREC ---
Addendum entered by Troy Gómez RPh 10/23/24 09:01: MED REC CHECKED BY [facility] Original Note: Pharmacy Consult ? Medication Reconciliation Pharmacy has completed the medication reconciliation. Used list from [facility].
--- NOTE | 2024-10-23 08:19 | P.CNUR_ITS ---
History of Present Illness Consult details Consult date: 10/23/24 Narrative: CC: Hematuria 74-year-old male To prior admission episodes for retention, hematuria and UTI of the past 2 years Has failed to follow-up with urology Readmission after brought in by ambulance for evaluation of fall Found to be exhibiting signs consistent with sepsis Positive dipstick for UTI Gross catheter placed and CBI initiated Past medical history of CVA and insulin-dependent diabetes Baseline on Plavix Recommend IV antibiotics and CBI. If failure to improve hold Plavix. Initiate finasteride Will need follow-up with Urology Review of Systems 2 Constitutional: Constitutional: Reports as per HPI and Reports no additional constitutional complaints Cardiovascular: Cardiovascular: Reports as per HPI and Reports no additional cardiovascular complaints Respiratory: Respiratory: Reports as per HPI and Reports no additional respiratory complaints Gastrointestinal: Gastrointestinal: Reports as per HPI and Reports no additional gastrointestinal complaints Genitourinary: Genitourinary: Reports as per HPI Musculoskeletal: Musculoskeletal: Reports no additional musculoskeletal complaints and Reports as per HPI Neurologic: Reports system reviewed and no additional complaints, except as documented and Reports as per HPI PMFSH Past Medical History Medical History BPH loc w urin obs/LUTS Severe recurrent major depressive disorder with psychosis CHF (congestive heart failure) Hemorrhagic stroke Cholelithiasis Alcohol use disorder HTN (hypertension) Surgical History Surgical History No pertinent past surgical history Social History Social History Household Members: None Housing: Apartment Do you presently have visiting nurse or other home services: No Alcohol intake: current Alcohol intake frequency: 0-2 drinks per day Alcohol type: hard liquor Comment: pt continues refusing bed alarm; chair alarm on pt in bed Patient Tobacco Use Status: Former Tobacco user Smoked in Last 30 Days: No Second Hand Smoke Exposure: No Advance Directives: No Advance Directives Information Provided: Yes Advance Directives Date on File: 04/12/23 Do you have a plan to hurt others: No Plan service: No Current occupational status: disabled Meds Allergies Allergy/AdvReac Type Severity Reaction Status Date / Time meperidine [From DEMEROL] Allergy Unknown UNKNOWN Verified 10/22/24 22:06 Active Medications: Current Medications Acetaminophen (Acetaminophen 325 Mg Tablet) 650 mg PO Q6H PRN PRN Reason: Pain, Mild 1-3,fever,headache Calcium Carbonate (Calcium Carbonate 750 Mg Tab.Chew) 750 mg PO Q4H PRN PRN Reason: Heartburn Ceftriaxone Sodium (Ceftriaxone Sodium 1 Gm Vial) 1 gm IVPUSH Q24H [facility] Dextrose (Dextrose 50 % 25 Gm/50 Ml Syringe) 25 gm IVPUSH Q15M PRN; Protocol PRN Reason: per Hypoglycemia Standing Ord. Last Admin: 10/23/24 05:49 Dose: 25 gm Glucose (Glucose Gel 15 Gm Gel..Gram.) 15 gm PO Q15M PRN; Protocol PRN Reason: per Hypoglycemia Standing Ord. Magnesium Hydroxide (Milk Of Magnesia 30 Ml Oral.Susp) 30 ml PO DAILY PRN PRN Reason: Constipation Melatonin (Melatonin 3 Mg Tablet) 6 mg PO BEDTIME PRN PRN Reason: Insomnia Ondansetron HCl (Ondansetron Hcl 4 Mg/2 Ml Vial) 4 mg IVPUSH Q8H PRN PRN Reason: Nausea and Vomiting Sodium Chloride (0.9 % Sodium Chloride Flush 3 Ml Syringe) 3 ml IVFLUSH QSHIFT [facility] Last Admin: 10/23/24 07:22 Dose: 3 ml Home Medications ?Medication ?Instructions ?Recorded ?Confirmed ?Last Taken ?Type amlodipine 5 mg tablet 5 mg PO DAILY 08/14/24 10/23/24 08/13/24 History atorvastatin 40 mg tablet 40 mg PO BEDTIME 08/14/24 10/23/24 08/13/24 History clopidogrel 75 mg tablet 75 mg PO DAILY 08/14/24 10/23/24 08/13/24 History insulin degludec 100 unit/mL (3 18 unit subcut DAILY 08/14/24 10/23/24 08/13/24 History mL) subcutaneous pen (Tresiba FlexTouch U-100 insulin) metformin 1,000 mg tablet 1,000 mg PO BID 08/14/24 10/23/24 08/13/24 History metoprolol succinate 50 mg 50 mg PO DAILY 08/14/24 10/23/24 08/13/24 History tablet,extended release 24 hr mirtazapine 15 mg tablet 15 mg PO BEDTIME 08/14/24 10/23/24 08/13/24 History risperidone 2 mg tablet 2 mg PO BEDTIME 08/14/24 10/23/24 08/13/24 History tamsulosin 0.4 mg capsule 0.4 mg PO DAILY 08/14/24 10/23/24 08/13/24 History trazodone 100 mg tablet 100 mg PO BEDTIME 08/14/24 10/23/24 08/13/24 History acetaminophen 325 mg tablet 650 mg PO Q6H PRN Fever Or Pain 09/24/24 10/23/24 Unknown History bisacodyl 10 mg rectal suppository 10 mg [place] DAILY PRN if no BM for 8 09/24/24 10/23/24 Unknown History hours after MOM insulin lispro 100 unit/mL 1 sliding scale dose subcut 09/24/24 10/23/24 Unknown History subcutaneous solution (Humalog USEASDIRECTD U-100 Insulin) acetaminophen 325 mg tablet 650 mg PO TID 10/23/24 10/23/24 Unknown History magnesium oxide 400 mg (241.3 mg 400 mg PO BID 10/23/24 10/23/24 Unknown History magnesium) tablet risperidone 0.5 mg tablet 0.5 mg PO DAILY@0900 10/23/24 10/23/24 Unknown History risperidone 1 mg tablet 1 mg PO DAILY@0910/23/24 10/23/24 Unknown History sodium chloride 1,000 mg soluble 1,000 mg PO BID 10/23/24 10/23/24 Unknown History tablet Physical Exam 2 Vital Signs: Vital Signs: Last Vital Signs Temp 98.3 F 10/23/24 00:39 Pulse 76 10/23/24 07:22 Resp 16 10/23/24 07:22 BP 103/64 10/23/24 07:22 Pulse Ox 97 10/23/24 07:22 O2 Del Method Room Air 10/23/24 07:22 BMI result Body Mass Index 26.9 Const: General: cooperative, healthy appearing, comfortable and no acute distress Orientation/consciousness: patient oriented x3 HEENT: Face and sinus: Yes normal facial exam Mouth: moist mucous membranes Neck: Neck: Yes normal visual inspection, Yes full ROM and Yes trachea midline Chest: Chest palpation & inspection: normal inspection of the chest Resp: Effort & Inspection: normal respiratory effort, able to speak in complete sentences and no respiratory distress GI: Inspection: Yes normal to inspection Back/Spine/Pelvis: Cervical Spine: normal cervical lordosis Thoracic/Lumbar Spine: thoracic and lumbar spine normal to inspection Skin: General skin exam: no rashes or lesions noted Neuro: General: patient oriented x3, tone normal and moves all extremities Extrem: General: Yes normal to inspection and Yes capillary refill normal Results Labs 10/23/24 04:28 10/23/24 04:28 Labs: Abnormal lab results 10/22/24 10/22/24 10/23/24 Range/Units 22:12 23:08 01:00 WBC 2.8 L (4.8-10.8) X10*3/uL RBC 4.22 L (4.60-5.80) X10*6/uL Hgb 12.6 L (14.0-18.0) g/dl Hct 36.4 L (42.0-52.0) % MPV 8.7 L (9.4-12.4) fL [place] % (Auto) 1.1 L (2-11) % Lymph # (Auto) 0.7 L (1.2-4.9) X10*3/uL [place] # (Auto) 0.0 L (0.1-1.2) X10*3/uL PT 16.0 H (10.9-12.4) SEC INR 1.4 H (0.9-1.1) Chloride (96-108) mmol/L Carbon Dioxide 20 L (22-29) mmol/L BUN 38 H (9-16) mg/dL POC Glucose (60-115) mg/dL Random Glucose 128 H (60-115) mg/dL Lactic Acid 2.6 H* (0.5-2.0) mmol/L Lactic Acid F/U @ 2Hr 4.0 H* (0.5-2.0) mmol/L AST 70 H (5-37) U/L B-Natriuretic Peptide 168 H (<100) pg/mL Urine Color [place] A Urine Blood Large (3+) H (Negative) Urine RBC >20 H (0-2) /HPF Urine WBC >50 H (0-5) /HPF 10/23/24 10/23/24 10/23/24 Range/Units 04:28 06:07 06:20 WBC 21.6 H (4.8-10.8) X10*3/uL RBC 3.48 L (4.60-5.80) X10*6/uL Hgb 10.4 L (14.0-18.0) g/dl Hct 30.9 L (42.0-52.0) % MPV 9.0 L (9.4-12.4) fL [place] % (Auto) (2-11) % Lymph # (Auto) (1.2-4.9) X10*3/uL [place] # (Auto) (0.1-1.2) X10*3/uL PT (10.9-12.4) SEC INR (0.9-1.1) Chloride 113 H (96-108) mmol/L Carbon Dioxide 19 L (22-29) mmol/L BUN 33 H (9-16) mg/dL POC Glucose 157 H 165 H (60-115) mg/dL Random Glucose 59 L* (60-115) mg/dL Lactic Acid (0.5-2.0) mmol/L Lactic Acid F/U @ 2Hr (0.5-2.0) mmol/L AST (5-37) U/L B-Natriuretic Peptide (<100) pg/mL Urine Color Urine Blood (Negative) Urine RBC (0-2) /HPF Urine WBC (0-5) /HPF 10/23/24 Range/Units 06:35 WBC (4.8-10.8) X10*3/uL RBC (4.60-5.80) X10*6/uL Hgb (14.0-18.0) g/dl Hct (42.0-52.0) % MPV (9.4-12.4) fL [place] % (Auto) (2-11) % Lymph # (Auto) (1.2-4.9) X10*3/uL [place] # (Auto) (0.1-1.2) X10*3/uL PT (10.9-12.4) SEC INR (0.9-1.1) Chloride (96-108) mmol/L Carbon Dioxide (22-29) mmol/L BUN (9-16) mg/dL POC Glucose 158 H (60-115) mg/dL Random Glucose (60-115) mg/dL Lactic Acid (0.5-2.0) mmol/L Lactic Acid F/U @ 2Hr (0.5-2.0) mmol/L AST (5-37) U/L B-Natriuretic Peptide (<100) pg/mL Urine Color Urine Blood (Negative) Urine RBC (0-2) /HPF Urine WBC (0-5) /HPF Short CBC 10/22/24 10/23/24 Range/Units 22:12 04:28 WBC 2.8 L 21.6 H (4.8-10.8) X10*3/uL Hgb 12.6 L 10.4 L (14.0-18.0) g/dl Hct 36.4 L 30.9 L (42.0-52.0) % Plt Count 258 212 (160-400) X10*3/uL BMP 10/22/24 10/23/24 22:12 04:28 Sodium 139 141 Potassium 4.5 4.0 Chloride 107 113 H Carbon Dioxide 20 L 19 L BUN 38 H 33 H Creatinine 1.33 1.03 Calcium 9.7 D 8.5 D Liver Function 10/22/24 Range/Units 22:12 Total Bilirubin 0.4 (0.0-1.0) mg/dL AST 70 H (5-37) U/L ALT 24 (0-40) U/L Alkaline Phosphatase 65 (39-117) U/L Albumin 3.9 (3.5-5.0) g/dL Urine 10/22/24 10/22/24 Range/Units 22:16 23:08 Urine Color Cancelled [place] A Urine Appearance Cancelled Cloudy Urine pH Cancelled >= 9.0 Ur Specific [place] Cancelled 1.015 Urine Protein Cancelled See Note Urine Glucose (UA) Cancelled Negative All other labs normal. Assessment and Plan (1) Acute UTI: Status: Acute (2) Hematuria: Status: Acute Plan Urine culture Antibiotics CBI Hold Plavix if necessary Outpatient follow-up Procedures Date of Service Date of Service: 10/23/24
[2024-10-23] MEDS: Finasteride 5 MG TABLET PO (09:27)
[2024-10-23] MEDS: Acetaminophen 325 MG TABLET 650 MG PO ×3 (09:30→20:50)
--- NOTE | 2024-10-23 09:54 | PC.NURSE ---
Pt ate approx half of breakfast. medicated per order, requested tylenol for lower back discomfort.
[2024-10-23] MEDS: Clopidogrel Bisulfate 75 MG TABLET PO (11:06)
[2024-10-23] MEDS: Metoprolol Succinate ER 50 MG TAB.ER.24H PO (11:06)
[2024-10-23] MEDS: risperiDONE 1 MG TABLET PO ×2 (11:06→20:51)
[2024-10-23] MEDS: risperiDONE 0.5 MG TABLET PO (11:06)
--- NOTE | 2024-10-23 11:49 | PC.NURSE ---
Rec'd call from the lab that pt's blood cultures were positive, dr perez notified via [employer]
--- NOTE | 2024-10-23 12:33 | PC.NURSE ---
Pt noted to be very drowsy, BP noted to be 90/55. strong physical stim applied and pt opens eyes briefly, then quickly falls back to sleep. respirations are even and unlabored, O2 sat maintained at rate of 18. skin slightly pale, warm and dry. dr perez notifed via [employer].
[2024-10-23 12:40] LABS: Glucose, Whole Blood 79 mg/dL (60-115)
--- NOTE | 2024-10-23 13:03 | PM.EVENT ---
Event Note Date of Service: 10/23/24 Event Note: Patient was seen and evaluated feels little better blood pressure runs soft Blood cultures positive for GPC and GNR Continue Ceftriaxone, Add Vancomycin Hold long acting insulin, monitor GLu Time Spent With Patient Time: Total time managing care of this patient today ____ minutes.
[2024-10-23] MEDS: 0.9 % Sodium Chloride 1,000 ML 999 ML IV (13:06)
--- NOTE | 2024-10-23 13:10 | MHC.CM.PN ---
Addendum entered by Gretchen William 10/23/24 13:28: Per [facility], Patient is a LTC Resident of theirs on a Medicaid pending bed hold. Addendum entered by Gretchen William 10/23/24 13:22: PCP is Zay Severino. Original Note: CM met with Patient at bedside in the ED and spoke with him briefly regarding the IMM (original was left at bedside and a copy will be placed on the chart). CM was not able to maintain Patient's attention; he kept falling back to sleep. CM spoke with Primary Contact/Brother/Holland at [phone]. Per Holland, Patient has been at STR @ [facility] for the past few weeks and he anticipates Patient returning there to complete STR. CM has initiated and will follow for dc planning. PCP is unknown at this time and HCP is [id number]. Patient will require BLS transport back to [facility].
[2024-10-23] MEDS: vancomycin/NS 2,000 MG/500 ML PLAST..BAG 250 MG IV (13:24)
--- NOTE | 2024-10-23 13:49 | PHA.PROG ---
Admission Date/Time: October 23, 2024 01:51 Indication: bacteremia Weight in k kg Adjusted body weight in Kg: [place] body weight in Kg: Obesity Dosing Indication % IBW: Serum Creatinine - Last 168 Hours 10/22/24 10/23/24 22:12 04:28 Creatinine 1.33 1.03 Estimated CrCl and GFR - Last 168 Hours 10/22/24 10/23/24 22:12 04:28 Estim Creat Clear Calc 49.5 63.9 Estimated GFR 52 > 60 Vancomycin Loading Dose: 2000mg x 1 Current Vancomycin Dosing Regimen: 750mg BID Vancomycin Monitoring using AUC goal of 400 - 600 range with trough as surrogate marker: 480mg/L Date and Time for next Vancomycin Level to be drawn: 10/24 @2100 Pharmacist Comments on Vancomycin Plan: Predicted trough of 16.3 mg/L Vancomycin dosing will take advantage of [employer] as a clinical decision support tool that uses Bayesian modeling to calculate individual patient's pharmacokinetic parameters and forecast the patient's drug concentration time course with the target goal AUC 24 range of 400 - 600 mg/L/hr.
--- NOTE | 2024-10-23 14:00 | PC.NURSE ---
Pt fed lunch by RN, ate approx half of tray, liquids provided. medicated with tylenol for back pain.
[2024-10-23 14:58] LABS: Lactic Acid 2.1 mmol/L (0.5-2.0)
[2024-10-23 16:39] LABS: Reflex Lactate? Lactic Acid Added
[2024-10-23 17:24] LABS: ~Lactic Acid-LAB USE ONLY 1.6 mmol/L (0.5-2.0)
[2024-10-23 17:30] LABS: Glucose, Whole Blood 99 mg/dL (60-115)
--- NOTE | 2024-10-23 18:43 | PC.NURSE ---
dr perez notified that pt's bp is persistently in the low 90s, awaiting orders.
[2024-10-23] MEDS: Dextrose 5 % and Lactated Ring 1,000 ML 80 ML IVCONT (19:00)
[2024-10-23] MEDS: cefTRIAXone sodium 1 GM VIAL IVPUSH (20:50)
[2024-10-23] MEDS: Atorvastatin Calcium 40 MG TABLET PO (20:50)
[2024-10-23] MEDS: Mirtazapine 15 MG TABLET PO (20:51)
[2024-10-23] MEDS: Magnesium Oxide 400 MG TABLET PO (20:51)
[2024-10-23] MEDS: Sodium Chloride Tab 1 GM TABLET PO (21:14)
[2024-10-23 21:50] LABS: Glucose, Whole Blood 145 mg/dL (60-115)
[2024-10-23] MEDS: vancomycin HCL 750 MG in 0.9 % Sodium Chloride 250 ML 265 MG IV (23:53)
[2024-10-23 23:56] LABS: Glucose, Whole Blood 187 mg/dL (60-115)
[2024-10-24] VITALS (9 sets, daily range): BP systolic 97–157; BP diastolic 57–92; PULSE 60–95; RESP 14–20; TEMP 36.5–37.4; O2SAT 94–98
[2024-10-24 04:26] LABS: Glucose, Whole Blood 193 mg/dL (60-115)
[2024-10-24 05:05] LABS: MANUAL DIFF FLAG NO
[2024-10-24 05:06] LABS: Basophils Percent Auto 0.2 % (0-2); Eosinophils Absolute Auto 0.1 X10*3/uL (0.0-0.4); Eosinophils Percent Auto 0.8 % (0-4); Hematocrit 33.6 % (42.0-52.0); Hemoglobin 11.7 g/dl (14.0-18.0); Imm Gran Abs Auto 0.06 X10*3/uL (0.00-0.03); Imm Gran Pct Auto 0.4 % (0.0-0.4); Lymphocytes Absolute Auto 1.9 X10*3/uL (1.2-4.9); Lymphocytes Percent Auto 13.4 % (20-40); Mean Corpuscular HGB Conc 34.8 g/dl (31.0-36.0); Mean Corpuscular Hemoglobin 30.6 pg (27.0-33.0); Mean Platelet Volume 9.2 fL (9.4-12.4); Monocytes Absolute Auto 1.3 X10*3/uL (0.1-1.2); Monocytes Percent Auto 8.8 % (2-11); Neutrophils Absolute Auto 10.9 x10*3/uL (2.0-8.3); Neutrophils Percent Auto 76.4 % (45-73); Platelet Count 207 X10*3/uL (160-400); Red Blood Count 3.82 X10*6/uL (4.60-5.80); Red Cell Distribution Width 14.1 % (11.0-16.0); White Blood Count 14.3 X10*3/uL (4.8-10.8)
[2024-10-24 05:23] LABS: Anion Gap 12 (12-20); Blood Urea Nitrogen 18 mg/dL (9-16); Calcium 8.9 mg/dL (8.4-10.2); Carbon Dioxide 21 mmol/L (22-29); Chloride 112 mmol/L (96-108); Creatinine Clr Calc Pharmacy 79.4; Estimated Glomerular Filt Rate > 60; Glucose Random 203 mg/dL (60-115); Potassium 3.7 mmol/L (3.3-5.1); Sodium 141 mmol/L (135-145)
[2024-10-24 07:25] LABS: Glucose, Whole Blood 206 mg/dL (60-115)
--- NOTE | 2024-10-24 07:40 | PC.NURSE ---
Resumed care of patient at 0700, hygiene care provided to patient, pt reporting lower back pain that he reports is chronic, pt repositioned in bed, breakfast opened for patient at this time, staff monitoring for feeding needs of patient. Call [place] within reach, burgos is producing clear yellow urine, no blood noted/ no clots noted in blood at this time.
--- NOTE | 2024-10-24 08:09 | PC.NURSE ---
Pt done eating breakfast, pt repositioned onto left side with pillow support to get off his back
[2024-10-24] MEDS: Tamsulosin HCL 0.4 MG CAPSULE PO (09:06)
[2024-10-24] MEDS: Dextrose 5 % and Lactated Ring 1,000 ML 80 ML IVCONT ×2 (09:06→22:48)
[2024-10-24] MEDS: risperiDONE 1 MG TABLET PO ×2 (09:06→22:51)
[2024-10-24] MEDS: Metoprolol Succinate ER 50 MG TAB.ER.24H PO (09:06)
[2024-10-24] MEDS: Finasteride 5 MG TABLET PO (09:07)
[2024-10-24] MEDS: Magnesium Oxide 400 MG TABLET PO ×2 (09:07→22:50)
[2024-10-24] MEDS: Acetaminophen 325 MG TABLET 650 MG PO ×3 (09:07→22:51)
[2024-10-24] MEDS: 0.9 % Sodium Chloride Flush 3 ML SYRINGE IVFLUSH ×3 (09:07→22:52)
[2024-10-24] MEDS: Clopidogrel Bisulfate 75 MG TABLET PO (09:07)
--- NOTE | 2024-10-24 09:40 | PC.NURSE ---
This Rn reached out to MD in regards to pt POC orders, currently were Q2, but patient bs has stabilized, MD changed order to Q4 at this time, order changed to reflect change
[2024-10-24 11:17] LABS: Glucose, Whole Blood 256 mg/dL (60-115)
[2024-10-24] MEDS: Sodium Chloride Tab 1 GM TABLET PO ×2 (11:56→22:50)
[2024-10-24] MEDS: vancomycin HCL 750 MG in 0.9 % Sodium Chloride 250 ML 265 MG IV (11:57)
--- NOTE | 2024-10-24 12:11 | HO.PM.IMPN ---
Subjective Subjective Date of Service: 10/24/24 Interval History: Seen and evaluated this morning More alert and interactive able to tolerate PO urine clearing up Cultures positive Review of Systems Review of Systems: Yes all other systems are reviewed and are negative Physical Exam Vital Signs: Vital Signs: Last Vital Signs Temp 98.1 F 10/24/24 11:01 Pulse 60 10/24/24 11:01 Resp 18 10/24/24 11:01 BP 133/70 10/24/24 11:01 Pulse Ox 96 10/24/24 11:01 O2 Del Method Room Air 10/24/24 11:01 BMI result Body Mass Index 26.9 Const: Other: Constitutional : interactive, not in distress Cardiovascular : no JVP, no lower extremity edema Respiratory : bilateral chest movement, not in resp distress Gastrointestinal: soft, lax, Non tender Skin : Warm, Dry UrologY: [place] in place Neurological : Alert & oriented , No focal deficit Objective Data Active Medications Acetaminophen (Acetaminophen 325 Mg Tablet) 650 mg PO Q6H PRN PRN Reason: Pain, Mild 1-3,fever,headache Last Admin: 10/23/24 09:30 Dose: 650 mg Documented By: DINORAH Acetaminophen (Acetaminophen 325 Mg Tablet) 650 mg PO TID PENDING SALE TO [facility] Last Admin: 10/24/24 09:07 Dose: 650 mg Documented By: RAFAEL Atorvastatin Calcium (Atorvastatin Calcium 40 Mg Tablet) 40 mg PO BEDTIME [facility]END[facility] SALE TO [facility] Last Admin: 10/23/24 20:50 Dose: 40 mg Documented By: JOS Bisacodyl (Bisacodyl 10 Mg Supp.Rect) 10 mg [place] DAILY PRN PRN Reason: if no BM for 8 hours after MOM Calcium Carbonate (Calcium Carbonate 750 Mg Tab.Chew) 750 mg PO Q4H PRN PRN Reason: Heartburn Ceftriaxone Sodium (Ceftriaxone Sodium 1 Gm Vial) 1 gm IVPUSH Q24H [facility] Last Admin: 10/23/24 20:50 Dose: 1 gm Documented By: JOS Clopidogrel Bisulfate (Clopidogrel Bisulfate 75 Mg Tablet) 75 mg PO DAILY [facility]END[facility] Last Admin: 10/24/24 09:07 Dose: 75 mg Documented By: RAFAEL Dextrose (Dextrose 50 % 25 Gm/50 Ml Syringe) 25 gm IVPUSH Q15M PRN; Protocol PRN Reason: per Hypoglycemia Standing Ord. Last Admin: 10/23/24 05:49 Dose: 25 gm Documented By: BOB Finasteride (Finasteride 5 Mg Tablet) 5 mg PO DAILY [facility] Last Admin: 10/24/24 09:07 Dose: 5 mg Documented By: RAFAEL Glucose (Glucose Gel 15 Gm Gel..Gram.) 15 gm PO Q15M PRN; Protocol PRN Reason: per Hypoglycemia Standing Ord. Vancomycin HCl 750 mg/ Sodium (Chloride) 265 mls @ 265 mls/hr IV Q12H PENDING SALE TO [facility] Last Admin: 10/24/24 11:57 Dose: 265 mls/hr Documented By: MODESTO Dextrose/Lactated Ringer's (D5lr) 1,000 mls @ 80 mls/hr IVCONT .[id number] PENDING SALE TO [facility] Last Admin: 10/24/24 09:06 Dose: 80 mls/hr Documented By: RAFAEL Magnesium Hydroxide (Milk Of Magnesia 30 Ml Oral.Susp) 30 ml PO DAILY PRN PRN Reason: Constipation Magnesium Oxide (Magnesium Oxide 400 Mg Tablet) 400 mg PO BID PENDING SALE TO [facility] Last Admin: 10/24/24 09:07 Dose: 400 mg Documented By: RAFAEL Melatonin (Melatonin 3 Mg Tablet) 6 mg PO BEDTIME PRN PRN Reason: Insomnia Metoprolol Succinate (Metoprolol Succinate Er 50 Mg Tab.Er.24h) 50 mg PO DAILY PENDING SALE TO [facility]; Protocol Last Admin: 10/24/24 09:06 Dose: 50 mg Documented By: RAFAEL Mirtazapine (Mirtazapine 15 Mg Tablet) 15 mg PO BEDTIME PENDING SALE TO [facility] Last Admin: 10/23/24 20:51 Dose: 15 mg Documented By: JOS Ondansetron HCl (Ondansetron Hcl 4 Mg/2 Ml Vial) 4 mg IVPUSH Q8H PRN PRN Reason: Nausea and Vomiting Pharmacy Consult (Consult Rx Vancomycin Dosing) 1 each MISCELLANE DAILY PRN PRN Reason: Consult order Risperidone (Risperidone 0.5 Mg Tablet) 0.5 mg PO DAILY@0900 PENDING SALE TO [facility] Last Admin: 10/23/24 11:06 Dose: 0.5 mg Documented By: DINORAH Risperidone (Risperidone 1 Mg Tablet) 1 mg PO DAILY@0900 PENDING SALE TO [facility] Last Admin: 10/24/24 09:06 Dose: 1 mg Documented By: RAFAEL Risperidone (Risperidone 1 Mg Tablet) 1 mg PO BEDTIME PENDING SALE TO [facility] Last Admin: 10/23/24 20:51 Dose: 1 mg Documented By: JOS Sodium Chloride (0.9 % Sodium Chloride Flush 3 Ml Syringe) 3 ml IVFLUSH QSHIFT PENDING SALE TO [facility] Last Admin: 10/24/24 09:07 Dose: 3 ml Documented By: RAFAEL Sodium Chloride (Sodium Chloride Tab 1 Gm Tablet) 1 gm PO BID PENDING SALE TO [facility] Last Admin: 10/24/24 11:56 Dose: 1 gm Documented By: MODESOT Tamsulosin HCl (Tamsulosin Hcl 0.4 Mg Capsule) 0.4 mg PO DAILY PENDING SALE TO [facility] Last Admin: 10/24/24 09:06 Dose: 0.4 mg Documented By: RAFAEL Trazodone HCl (Trazodone Hcl 50 Mg Tablet) 50 mg PO BEDTIME PRN PRN Reason: Insomnia Labs 10/24/24 04:37 10/24/24 04:37 Labs: Laboratory Results - last 24 hr 10/23/24 10/23/24 10/23/24 12:31 14:36 16:56 MCV MCH MCHC RDW Plt Count MPV Immature Gran % (Auto) Neut % (Auto) Lymph % (Auto) [place] % (Auto) Eos % (Auto) Baso % (Auto) Lymph # (Auto) [place] # (Auto) Eos # (Auto) Baso # (Auto) Abs Immat Gran (auto) Absolute Neuts (auto) Absolute Nucleated RBC Nucleated RBC % (auto) Anion Gap Estim Creat Clear Calc Estimated GFR POC Glucose 79 Random Glucose Lactic Acid 2.1 H* Lactic Acid F/U @ 2Hr 1.6 Calcium 10/23/24 10/23/24 10/23/24 17:27 21:47 23:52 MCV MCH MCHC RDW Plt Count MPV Immature Gran % (Auto) Neut % (Auto) Lymph % (Auto) [place] % (Auto) Eos % (Auto) Baso % (Auto) Lymph # (Auto) [place] # (Auto) Eos # (Auto) Baso # (Auto) Abs Immat Gran (auto) Absolute Neuts (auto) Absolute Nucleated RBC Nucleated RBC % (auto) Anion Gap Estim Creat Clear Calc Estimated GFR POC Glucose 99 145 H 187 H Random Glucose Lactic Acid Lactic Acid F/U @ 2Hr Calcium 02/10/24/24 10/24/24 04:21 04:37 07:14 MCV 88.0 MCH 30.6 MCHC 34.8 RDW 14.1 Plt Count 207 MPV 9.2 L Immature Gran % (Auto) 0.4 Neut % (Auto) 76.4 H Lymph % (Auto) 13.4 L [place] % (Auto) 8.8 Eos % (Auto) 0.8 Baso % (Auto) 0.2 Lymph # (Auto) 1.9 [place] # (Auto) 1.3 H Eos # (Auto) 0.1 Baso # (Auto) 0.0 Abs Immat Gran (auto) 0.06 H Absolute Neuts (auto) 10.9 H Absolute Nucleated RBC 0.000 Nucleated RBC % (auto) 0.0 Anion Gap 12 Estim Creat Clear Calc 79.4 Estimated GFR > 60 POC Glucose 193 H 206 H Random Glucose 203 H Lactic Acid Lactic Acid F/U @ 2Hr Calcium 8.9 10/24/24 11:09 MCV MCH MCHC RDW Plt Count MPV Immature Gran % (Auto) Neut % (Auto) Lymph % (Auto) [place] % (Auto) Eos % (Auto) Baso % (Auto) Lymph # (Auto) [place] # (Auto) Eos # (Auto) Baso # (Auto) Abs Immat Gran (auto) Absolute Neuts (auto) Absolute Nucleated RBC Nucleated RBC % (auto) Anion Gap Estim Creat Clear Calc Estimated GFR POC Glucose 256 H Random Glucose Lactic Acid Lactic Acid F/U @ 2Hr Calcium Microbiology Microbiology Results: Microbiology 10/22/24 22:14 Blood Culture - Preliminary Blood - Venous Proteus species Enterococcus/Streptococcus sp 10/22/24 22:12 Blood Culture - Preliminary Blood - Venous Proteus species Enterococcus/Streptococcus sp 10/22/24 Unknown Urine Culture - Preliminary Urine clean catch - Clean Catch Midstream Gram negative alex Assessment and Plan (1) Leukocytopenia, unspecified: Status: Acute (2) Hematuria: Status: Acute (3) Acute UTI: Status: Acute (4) Sepsis: Status: Acute (5) Bacteremia due to Enterococcus: Status: Acute Plan This is a 74-year-old male with pertinent history of mood disorder, hypertension, insulin-dependent diabetes mellitus, history of CVA, BPH, alcohol use disorder, congestive heart failure with reduced ejection fraction who was brought to the emergency department for evaluation after a fall. # Severe sepsis due to acute UTI complicated with lactic acidosis, GPC and GNR bacteremia Pending cultures IV ceftriaxone and Vancomycin IV crystalloids # Hypoglycemia in insulin-dependent diabetes mellitus DC Glipizide Restart low dose basal insulin SSI # Hematuria with blood loss anemia clearing up, Hold on CBI] Hb stable Urology consulted, treat infx, keep burgos, OP follow up Hold Plavix # Acute lactic acidosis due to sepsis # History of CVA: Hold Plavix # BPH: On Flomax # Mood disorder: Continue home mood stabilizers # Hypertension: Hold home antihypertensives in the setting of sepsis # Systolic heart failure: ?not on diuretics. On beta-dottie and ALVERTO-inhibitor DVT prophylaxis: SCDs Admit as inpatient and will require overnight hospital stay for IV antibiotics (as above), which is not possible in a lesser acute setting. Quality Stroke Does the patient have a stroke diagnosis?: No VTE Prior VTE?: No VTE Risk Level:: Medical - moderate - high VTE Device Contraindication: N/A - Device Ordered VTE Drug Contraindication: Treatment Not Indicated
[2024-10-24 12:45] LABS: Estimated Average Glucose 126 mg/dL; Hemoglobin A1C 126.7774 umol/L; Total Hemoglobin (HGBA1C) 3039.0973 umol/L
[2024-10-24] MEDS: Insulin Glargine,Hum.rec.anlog 100 UNIT/ML 10 ML VIAL 10 UNIT SUBCUT (13:01)
--- NOTE | 2024-10-24 14:08 | W.PM.IDCN ---
History of Present Illness Data of Consult Service Date: 10/24/24 Requesting physician: Luciano Salgado Primary Care Provider: Zay Bhagat MD HPI Reason for consult: bacteremia He presents with fall and found to have temperature of 101.2 and tachycardia on arrival. He has indweling Gross and patient says there was some problem with function ,possible getting pulled out. He has proteus and enterococcus on 10/22 bacteremia. He has HTN as well as BPH and DM and has been Rehab. Review of Systems Review of Systems: Yes all other systems are reviewed and are negative [facility] Past Medical History Medical History BPH loc w urin obs/LUTS Severe recurrent major depressive disorder with psychosis CHF (congestive heart failure) Hemorrhagic stroke Cholelithiasis Alcohol use disorder HTN (hypertension) Family History Family history: reviewed and not pertinent Surgical History Surgical History No pertinent past surgical history Social History Social History Household Members: None Housing: Assisted Do you presently have visiting nurse or other home services: No Alcohol intake: current Alcohol intake frequency: 0-2 drinks per day Alcohol type: hard liquor Comment: pt continues refusing bed alarm; chair alarm on pt in bed Patient Tobacco Use Status: Former Tobacco user Second Hand Smoke Exposure: No Advance Directives Date on File: 04/12/23 service: No Current occupational status: disabled Meds Allergies Allergy/AdvReac Type Severity Reaction Status Date / Time meperidine [From DEMEROL] Allergy Unknown UNKNOWN Verified 10/22/24 22:06 Active Medications: Current Medications Acetaminophen (Acetaminophen 325 Mg Tablet) 650 mg PO Q6H PRN PRN Reason: Pain, Mild 1-3,fever,headache Last Admin: 10/23/24 09:30 Dose: 650 mg Acetaminophen (Acetaminophen 325 Mg Tablet) 650 mg PO TID HERACLIO Last Admin: 10/24/24 09:07 Dose: 650 mg Atorvastatin Calcium (Atorvastatin Calcium 40 Mg Tablet) 40 mg PO BEDTIME HERACLIO Last Admin: 10/23/24 20:50 Dose: 40 mg Bisacodyl (Bisacodyl 10 Mg Supp.Rect) 10 mg DC DAILY PRN PRN Reason: if no BM for 8 hours after MOM Calcium Carbonate (Calcium Carbonate 750 Mg Tab.Chew) 750 mg PO Q4H PRN PRN Reason: Heartburn Ceftriaxone Sodium (Ceftriaxone Sodium 1 Gm Vial) 1 gm IVPUSH Q24H [facility] Last Admin: 10/23/24 20:50 Dose: 1 gm Clopidogrel Bisulfate (Clopidogrel Bisulfate 75 Mg Tablet) 75 mg PO DAILY [facility] Last Admin: 10/24/24 09:07 Dose: 75 mg Dextrose (Dextrose 50 % 25 Gm/50 Ml Syringe) 25 gm IVPUSH Q15M PRN; Protocol PRN Reason: per Hypoglycemia Standing Ord. Last Admin: 10/23/24 05:49 Dose: 25 gm Finasteride (Finasteride 5 Mg Tablet) 5 mg PO DAILY [facility] Last Admin: 10/24/24 09:07 Dose: 5 mg Glucose (Glucose Gel 15 Gm Gel..Gram.) 15 gm PO Q15M PRN; Protocol PRN Reason: per Hypoglycemia Standing Ord. Vancomycin HCl 750 mg/ Sodium (Chloride) 265 mls @ 265 mls/hr IV Q12H [facility] Last Infusion: 10/24/24 13:23 Dose: Infused Dextrose/Lactated Ringer's (D5lr) 1,000 mls @ 80 mls/hr IVCONT .[id number] [facility] Last Admin: 10/24/24 09:06 Dose: 80 mls/hr Insulin Glargine (Insulin Glargine,Hum.Rec.Anlog 100 Unit/Ml 10 Ml Vial) 10 unit SUBCUT DAILY [facility] Last Admin: 10/24/24 13:01 Dose: 10 unit Insulin Human Lispro (Insulin Lispro 100 Unit/Ml 3 Ml Vial) 0 unit SUBCUT QIDACHS [facility]; Protocol Magnesium Hydroxide (Milk Of Magnesia 30 Ml Oral.Susp) 30 ml PO DAILY PRN PRN Reason: Constipation Magnesium Oxide (Magnesium Oxide 400 Mg Tablet) 400 mg PO BID [facility] Last Admin: 10/24/24 09:07 Dose: 400 mg Melatonin (Melatonin 3 Mg Tablet) 6 mg PO BEDTIME PRN PRN Reason: Insomnia Metoprolol Succinate (Metoprolol Succinate Er 50 Mg Tab.Er.24h) 50 mg PO DAILY [facility]; Protocol Last Admin: 10/24/24 09:06 Dose: 50 mg Mirtazapine (Mirtazapine 15 Mg Tablet) 15 mg PO BEDTIME [facility] Last Admin: 10/23/24 20:51 Dose: 15 mg Ondansetron HCl (Ondansetron Hcl 4 Mg/2 Ml Vial) 4 mg IVPUSH Q8H PRN PRN Reason: Nausea and Vomiting Pharmacy Consult (Consult Rx Vancomycin Dosing) 1 each MISCELLANE DAILY PRN PRN Reason: Consult order Risperidone (Risperidone 0.5 Mg Tablet) 0.5 mg PO DAILY@0900 [facility] Last Admin: 10/23/24 11:06 Dose: 0.5 mg Risperidone (Risperidone 1 Mg Tablet) 1 mg PO DAILY@0900 [facility] Last Admin: 10/24/24 09:06 Dose: 1 mg Risperidone (Risperidone 1 Mg Tablet) 1 mg PO BEDTIME [facility] Last Admin: 10/23/24 20:51 Dose: 1 mg Sodium Chloride (0.9 % Sodium Chloride Flush 3 Ml Syringe) 3 ml IVFLUSH QSHIFT [facility] Last Admin: 10/24/24 09:07 Dose: 3 ml Sodium Chloride (Sodium Chloride Tab 1 Gm Tablet) 1 gm PO BID [facility] Last Admin: 10/24/24 11:56 Dose: 1 gm Tamsulosin HCl (Tamsulosin Hcl 0.4 Mg Capsule) 0.4 mg PO DAILY [facility] Last Admin: 10/24/24 09:06 Dose: 0.4 mg Trazodone HCl (Trazodone Hcl 50 Mg Tablet) 50 mg PO BEDTIME PRN PRN Reason: Insomnia Home Medications ?Medication ?Instructions ?Recorded ?Confirmed ?Last Taken ?Type amlodipine 5 mg tablet 5 mg PO DAILY 08/14/24 10/23/24 08/13/24 History atorvastatin 40 mg tablet 40 mg PO BEDTIME 08/14/24 10/23/24 08/13/24 History clopidogrel 75 mg tablet 75 mg PO DAILY 08/14/24 10/23/24 08/13/24 History insulin degludec 100 unit/mL (3 18 unit subcut DAILY 08/14/24 10/23/24 08/13/24 History mL) subcutaneous pen (Tresiba FlexTouch U-100 insulin) metformin 1,000 mg tablet 1,000 mg PO BID 08/14/24 10/23/24 08/13/24 History metoprolol succinate 50 mg 50 mg PO DAILY 08/14/24 10/23/24 08/13/24 History tablet,extended release 24 hr mirtazapine 15 mg tablet 15 mg PO BEDTIME 08/14/24 10/23/24 08/13/24 History risperidone 2 mg tablet 2 mg PO BEDTIME 08/14/24 10/23/24 08/13/24 History tamsulosin 0.4 mg capsule 0.4 mg PO DAILY 08/14/24 10/23/24 08/13/24 History trazodone 100 mg tablet 100 mg PO BEDTIME 08/14/24 10/23/24 08/13/24 History acetaminophen 325 mg tablet 650 mg PO Q6H PRN Fever Or Pain 09/24/24 10/23/24 Unknown History bisacodyl 10 mg rectal suppository 10 mg DC DAILY PRN if no BM for 8 09/24/24 10/23/24 Unknown History hours after MOM insulin lispro 100 unit/mL 1 sliding scale dose subcut 09/24/24 10/23/24 Unknown History subcutaneous solution (Humalog USEASDIRECTD U-100 Insulin) acetaminophen 325 mg tablet 650 mg PO TID 10/23/24 10/23/24 Unknown History magnesium oxide 400 mg (241.3 mg 400 mg PO BID 10/23/24 10/23/24 Unknown History magnesium) tablet risperidone 0.5 mg tablet 0.5 mg PO DAILY@0900 10/23/24 10/23/24 Unknown History risperidone 1 mg tablet 1 mg PO DAILY@0900 10/23/24 10/23/24 Unknown History sodium chloride 1,000 mg soluble 1,000 mg PO BID 10/23/24 10/23/24 Unknown History tablet Physical Exam Vital Signs: Vital Signs: Last Vital Signs Temp 98.1 F 10/24/24 11:01 Pulse 60 10/24/24 11:01 Resp 18 10/24/24 11:01 BP 133/70 10/24/24 11:01 Pulse Ox 96 10/24/24 11:01 O2 Del Method Room Air 10/24/24 11:01 BMI result Body Mass Index 26.9 Const: General: cooperative HEENT: Head: Yes normal to inspection Face and sinus: Yes normal facial exam Mouth: Normal oral and palatal mucosa present Teeth and gingiva: dentition normal Eyes: General: appearance normal, both eyes and all related structures Pupils: Equal, round and reactive pupils present Resp: Effort & Inspection: normal respiratory effort Cardio: Rate: regular rate Rhythm: regular rhythm GI: Palpation (GI): Soft to palpation and nontender : Other: some left flank pain General: Yes no CVA tenderness Back/Spine/Pelvis: Back: no CVA tenderness Skin: General skin exam: no rashes or lesions noted Neuro: General: moves all extremities Cranial nerves: Yes Equal, round and reactive pupils present Extrem: General: Yes normal to inspection Psych: Appearance: grossly normal Results Labs 10/24/24 04:37 10/24/24 04:37 Labs: Short CBC 10/24/24 Range/Units 04:37 WBC 14.3 H (4.8-10.8) X10*3/uL Hgb 11.7 L (14.0-18.0) g/dl Hct 33.6 L (42.0-52.0) % Plt Count 207 (160-400) X10*3/uL BMP 10/24/24 04:37 Sodium 141 Potassium 3.7 Chloride 112 H Carbon Dioxide 21 L BUN 18 H Creatinine 0.83 Calcium 8.9 Microbiology Microbiology Results: Microbiology 10/22/24 22:14 Blood - Venous Blood Culture - Preliminary Proteus species Enterococcus/Streptococcus sp 10/22/24 22:12 Blood - Venous Blood Culture - Preliminary Proteus species Enterococcus/Streptococcus sp 10/22/24 Unknown Urine clean catch - Clean Catch Midstream Urine Culture - Preliminary Gram negative alex Assessment and Plan (1) Bacteremia due to Enterococcus: Status: Acute (2) Leukocytopenia, unspecified: Status: Acute (3) Sepsis: Status: Acute Plan May continue Ceftriaxone as well as Vancomycin cover both organisms at this time and await sensitivities. He may be able to transition to oral if able for 14 days treatment. [facility]
[2024-10-24] MEDS: Insulin Lispro 100 UNIT/ML 3 ML VIAL SUBCUT ×2 (16:32→22:52)
[2024-10-24 16:39] LABS: Glucose, Whole Blood 247 mg/dL (60-115)
[2024-10-24 20:43] LABS: Glucose, Whole Blood 272 mg/dL (60-115)
[2024-10-24 21:27] LABS: Vancomycin Trough 11.9 mcg/mL (10.0-20.0)
--- NOTE | 2024-10-24 21:31 | HE.PHANOTE ---
JENNIFER Changing dose to 1000mg Q12H per subtherapeutic trough. Patient's renal function improved. Predicted AUC 463, trough 14.5. Next trough to be drawn 10/25 @2100.
[2024-10-24] MEDS: cefTRIAXone sodium 1 GM VIAL IVPUSH (22:48)
[2024-10-24 22:51] LABS: Glucose, Whole Blood 201 mg/dL (60-115)
[2024-10-24] MEDS: Mirtazapine 15 MG TABLET PO (22:51)
[2024-10-24] MEDS: traZODone HCL 50 MG TABLET PO (22:51)
[2024-10-24] MEDS: Atorvastatin Calcium 40 MG TABLET PO (22:51)
[2024-10-24] MEDS: vancomycin HCL 1,000 MG in 0.9 % Sodium Chloride 250 ML 270 MG IV (22:52)
[2024-10-25 03:27] VITALS: BP 153/77; PULSE 65; RESP 20; TEMP 36.7; O2SAT 96
[2024-10-25] MEDS: oxyCODONE HCl Immed Release 5 MG TABLET PO (03:57)
[2024-10-25 07:03] LABS: MANUAL DIFF FLAG NO
[2024-10-25 07:08] LABS: Basophils Percent Auto 0.2 % (0-2); Eosinophils Absolute Auto 0.2 X10*3/uL (0.0-0.4); Eosinophils Percent Auto 1.7 % (0-4); Hematocrit 30.6 % (42.0-52.0); Hemoglobin 10.5 g/dl (14.0-18.0); Imm Gran Abs Auto 0.03 X10*3/uL (0.00-0.03); Imm Gran Pct Auto 0.3 % (0.0-0.4); Lymphocytes Percent Auto 20.8 % (20-40); Mean Corpuscular HGB Conc 34.3 g/dl (31.0-36.0); Mean Corpuscular Hemoglobin 29.8 pg (27.0-33.0); Mean Corpuscular Volume 86.9 fL (80.0-98.0); Mean Platelet Volume 9.6 fL (9.4-12.4); Monocytes Absolute Auto 1.1 X10*3/uL (0.1-1.2); Monocytes Percent Auto 11.8 % (2-11); Neutrophils Absolute Auto 6.1 x10*3/uL (2.0-8.3); Neutrophils Percent Auto 65.2 % (45-73); Platelet Count 195 X10*3/uL (160-400); Red Blood Count 3.52 X10*6/uL (4.60-5.80); Red Cell Distribution Width 13.8 % (11.0-16.0); White Blood Count 9.4 X10*3/uL (4.8-10.8)
[2024-10-25 07:22] LABS: Glucose, Whole Blood 151 mg/dL (60-115)
[2024-10-25 07:37] LABS: Anion Gap 8 (12-20); Blood Urea Nitrogen 9 mg/dL (9-16); Calcium 8.6 mg/dL (8.4-10.2); Carbon Dioxide 25 mmol/L (22-29); Chloride 111 mmol/L (96-108); Creatinine Clr Calc Pharmacy 101.3; Estimated Glomerular Filt Rate > 60; Glucose Random 178 mg/dL (60-115); Potassium 3.4 mmol/L (3.3-5.1); Sodium 141 mmol/L (135-145)
[2024-10-25 08:00] VITALS: BP 144/75; PULSE 63; RESP 18; TEMP 37; O2SAT 98
[2024-10-25] MEDS: Tamsulosin HCL 0.4 MG CAPSULE PO (08:12)
[2024-10-25] MEDS: Acetaminophen 325 MG TABLET 650 MG PO ×2 (08:12→13:42)
[2024-10-25] MEDS: Finasteride 5 MG TABLET PO (08:12)
[2024-10-25] MEDS: Metoprolol Succinate ER 50 MG TAB.ER.24H PO (08:13)
[2024-10-25] MEDS: Magnesium Oxide 400 MG TABLET PO (08:13)
[2024-10-25] MEDS: Insulin Lispro 100 UNIT/ML 3 ML VIAL SUBCUT ×2 (08:13→11:41)
[2024-10-25] MEDS: Sodium Chloride Tab 1 GM TABLET PO (08:13)
[2024-10-25] MEDS: risperiDONE 1 MG TABLET PO (08:13)
[2024-10-25] MEDS: 0.9 % Sodium Chloride Flush 3 ML SYRINGE IVFLUSH ×2 (08:13→13:43)
[2024-10-25] MEDS: Insulin Glargine,Hum.rec.anlog 100 UNIT/ML 10 ML VIAL 10 UNIT SUBCUT (08:14)
[2024-10-25] MEDS: Dextrose 5 % and Lactated Ring 1,000 ML 80 ML IVCONT (08:31)
[2024-10-25] MEDS: Clopidogrel Bisulfate 75 MG TABLET PO (08:31)
--- NOTE | 2024-10-25 09:34 | HE.PHANOTE ---
RE: vanco due to renal improvement changed dose to 1250mg Q12H with predicted trough of 14.8mg/L, AUC of 493 mg/L. level still to be drawn 10/25 @2100
[2024-10-25 10:38] VITALS: BP 144/75; PULSE 63; O2SAT 98
[2024-10-25 11:19] LABS: Glucose, Whole Blood 289 mg/dL (60-115)
[2024-10-25 11:39] VITALS: BP 141/67; PULSE 54; RESP 18; TEMP 36.8; O2SAT 96
[2024-10-25] MEDS: vancomycin HCL 1,250 MG in 0.9 % Sodium Chloride 250 ML 166.67 MG IV (11:41)
--- NOTE | 2024-10-25 12:30 | P.CDIM_ITS ---
PROVIDER RESPONSE TEXT: To clarify, the appropriate diagnosis supported by the clinical indicators: Acute on chronic blood loss anemia QUERY TEXT: PHYSICIAN'S DOCUMENTATION REQUEST Date of Query: 10/25/2024 07:32 AM EST Patient Name: Gadiel Arevalo Admit Date: 10/23/2024 Dear Luciano Salgado MD, A review of the medical record indicates additional documentation may be needed. Please review below and update the documentation accordingly. Clinical Indicators: Progress note within the Plan 10/24/24 - Hematuria with blood loss anemia Clearing up, hold on CBI Hb stable Clarify which of the following accurately represents the acuity of the blood loss anemia: Possible options might include: Acute blood loss anemia Acute on chronic blood loss anemia Other (explain) Clinically unable to determine (explain) Thank you, Terra De, CCS, CDIS Use of terms such as suspected, likely, concern for, or probable (associated with a specific diagnosi s that is being evaluated, monitored, or treated as if it exists) are acceptable and can be coded in the inpatient se tting, when documented at the time of discharge. Please use your independent medical judgment in providing your response. THIS QUERY IS PART OF THE PERMANENT MEDICAL RECORD
--- NOTE | 2024-10-25 12:50 | P.DS_ITS ---
DS: Providers Provider Date of Service: 10/25/24 Date of admission: 10/23/24 01:51 Date of discharge: 10/25/24 Primary care physician: Zay Bhagat MD Consults: 10/23/24 01:29 Consult to Urology Routine Consulting Provider[place] [facility] Reason for consultation: hematuria 10/24/24 07:50 Consult to Infectious Diseases Routine Consulting Provider: [facility] Reason for consultation: GPC and GNR bacteremia, chronic burgos DS: Diagnosis Discharge Diagnosis (1) Bacteremia due to Enterococcus: Status: Acute (2) Leukocytopenia, unspecified: Status: Acute (3) Sepsis: Status: Acute (4) Hematuria: Status: Acute (5) Acute UTI: Status: Acute (6) Bacteremia due to Proteus species: Status: Acute (7) Hypoglycemia associated with type 2 diabetes mellitus: Status: Acute DS: Summary Hospital Course Hospital Course: Admission note HPI This is a 74-year-old male with pertinent history of congestive heart failure with reduced ejection fraction, hypertension, insulin-dependent diabetes mellitus, history of hemorrhagic CVA, BPH, alcohol use disorder who was brought to the emergency department for evaluation after a fall. Patient states he was trying to grab the handle of his closet when he slipped and fell. He did not lose consciousness prior to the fall. No dizziness or lightheadedness. No chest pain or palpitations prior to the fall. No jerking movement of extremities. Patient states he has been feeling weak lately. Patient has a chronic indwelling catheter which was not functioning. In the emergency department, patient was found to be septic with tachycardia and fever 101.2. Urine concerning for UTI. Hematuria noted and patient was initiated on CBI. Also given IV crystalloids and IV ceftriaxone in the ER. Hospital course The patient was treated for the following: # Severe sepsis due to acute UTI complicated with lactic acidosis as a result of Enterococcus and Proteus Bacteremia. Lactic acidosis resolved with use of IV fluids. Infection Treated with IV Antibiotics of Ceftriaxone and Vancomycin. Repeat blood cultures remains negative at time of discharge. Evaluated by ID who recommended total of 2 weeks of oral antibiotics. finalized blood culture showed sensitivty to Ampicillin. To be discharged on 2 weeks of PO Amoxicillin. # Hypoglycemia in insulin-dependent diabetes mellitus DC Glipizide on admission and to keep on hold on discharge. I assume it is not needed as HbA1c is 6 at this point and we are risking more events of hypoglycemia. To continue his basal Insulin along with Metformin and sliding scale. To follow glucose readings and adjust as needed in facility. # Hematuria with acute on chronic blood loss anemia Placed on CBI per urology recommendations. Hemoglobin remained stable with no need to transfusion. Plavix was held at beginning then restarted with no reported hematuria. Urology recommended to treat infx, keep burgos and for outpatient follow up. Discharge plan Hold Glipizide for now. monitor blood sugar and restart if needed on 5 mg only. Start Amoxicillin for total of 2 weeks Finasteride daily Keep burgos in place. Follow with Urology in 2 weeks in clinic Time Attestation Discharge Coordination Time (in mins): 43 Quality: Safe Use of Opioids Does Pt have an Active Cancer Diagnosis on the Problem List?: No Quality: Stroke Does the patient have a stroke diagnosis?: No Physical Exam Vital Signs: Vital Signs: Last Vital Signs Temp 98.2 F 10/25/24 11:39 Pulse 54 10/25/24 11:39 Resp 18 10/25/24 11:39 BP 141/67 H 10/25/24 11:39 Pulse Ox 96 10/25/24 11:39 O2 Del Method Room Air 10/25/24 11:39 BMI result Body Mass Index 26.9 Const: Other: Constitutional : interactive, not in distress Cardiovascular : no JVP, no lower extremity edema Respiratory : bilateral chest movement, not in resp distress Gastrointestinal: soft, lax, Non tender Skin : Warm, Dry UrologY: [place] in place , urine yellow and clear without clots Neurological : Alert & oriented , No focal deficit DS: Data Data Completed and Pending Labs on day of discharge: Laboratory Results - last 24 hr 10/24/24 10/24/24 10/24/24 16:04 20:31 21:05 WBC RBC Hgb Hct MCV MCH MCHC RDW Plt Count MPV Immature Gran % (Auto) Neut % (Auto) Lymph % (Auto) [place] % (Auto) Eos % (Auto) Baso % (Auto) Lymph # (Auto) [place] # (Auto) Eos # (Auto) Baso # (Auto) Abs Immat Gran (auto) Absolute Neuts (auto) Absolute Nucleated RBC Nucleated RBC % (auto) Sodium Potassium Chloride Carbon Dioxide Anion Gap BUN Creatinine Estim Creat Clear Calc Estimated GFR POC Glucose 247 H 272 H Random Glucose Calcium Vancomycin Trough 11.9 10/24/24 10/25/24 10/25/24 22:45 06:16 07:12 WBC 9.4 RBC 3.52 L Hgb 10.5 L Hct 30.6 L MCV 86.9 MCH 29.8 MCHC 34.3 RDW 13.8 Plt Count 195 MPV 9.6 Immature Gran % (Auto) 0.3 Neut % (Auto) 65.2 Lymph % (Auto) 20.8 [place] % (Auto) 11.8 H Eos % (Auto) 1.7 Baso % (Auto) 0.2 Lymph # (Auto) 2.0 [place] # (Auto) 1.1 Eos # (Auto) 0.2 Baso # (Auto) 0.0 Abs Immat Gran (auto) 0.03 Absolute Neuts (auto) 6.1 Absolute Nucleated RBC 0.000 Nucleated RBC % (auto) 0.0 Sodium 141 Potassium 3.4 Chloride 111 H Carbon Dioxide 25 Anion Gap 8 L BUN 9 Creatinine 0.65 Estim Creat Clear Calc 101.3 Estimated GFR > 60 POC Glucose 201 H 151 H Random Glucose 178 H Calcium 8.6 Vancomycin Trough 10/25/24 11:13 WBC RBC Hgb Hct MCV MCH MCHC RDW Plt Count MPV Immature Gran % (Auto) Neut % (Auto) Lymph % (Auto) [place] % (Auto) Eos % (Auto) Baso % (Auto) Lymph # (Auto) [place] # (Auto) Eos # (Auto) Baso # (Auto) Abs Immat Gran (auto) Absolute Neuts (auto) Absolute Nucleated RBC Nucleated RBC % (auto) Sodium Potassium Chloride Carbon Dioxide Anion Gap BUN Creatinine Estim Creat Clear Calc Estimated GFR POC Glucose 289 H Random Glucose Calcium Vancomycin Trough Preliminary micro results at discharge 10/22/24 22:12 Blood Culture - Preliminary Blood - Venous Proteus mirabilis Enterococcus/Streptococcus sp 10/24/24 04:37 Blood Culture - Preliminary Blood - Venous No growth after 24 hours. 10/24/24 04:37 Blood Culture - Preliminary Blood - Venous No growth after 24 hours. Imaging Chest x-ray: Radiologist's impression: CT Abd IMPRESSION: No acute findings. This document has been electronically signed by: Marques Grey MD, PHD on 10/23/2024 01:13:15 CT Head IMPRESSION: 1. No acute intracranial findings. This document has been electronically signed by: Marques Grey MD, PHD on 10/23/2024 01:14:31 Discharge Plan Discharge Anticipated Discharge Date/Time: 10/25/24 12:42 Patient Disposition: [facility] Discharge Diagnosis: Enterococcus and Proteus Bacteremia and UTI Referrals: [facility] [Outside] - 1 Week Zay Bhagat MD [Primary Care Provider] - 1 Week Discharge Medications: New finasteride 5 mg Tablet 5 mg PO DAILY Qty: 90 0RF amoxicillin 500 mg tablet 500 mg PO Q8H 14 Days Qty: 42 0RF Continued (DME) pen needle, diabetic 32 gauge x 1/4 needle Qty: 100 0RF Rx Instructions: use with Lantus Solostar Pen once daily (DME) lancets [FreeStyle Lancets] 28 gauge misc Qty: 100 0RF Rx Instructions: Test four times a day or as directed. atorvastatin 40 mg tablet 40 mg PO BEDTIME metoprolol succinate 50 mg tablet extended release 24 hr 50 mg PO DAILY clopidogrel 75 mg tablet 75 mg PO DAILY amlodipine 5 mg tablet 5 mg PO DAILY risperidone 2 mg tablet 2 mg PO BEDTIME tamsulosin 0.4 mg capsule 0.4 mg PO DAILY trazodone 100 mg tablet 100 mg PO BEDTIME metformin 1,000 mg tablet 1,000 mg PO BID mirtazapine 15 mg tablet 15 mg PO BEDTIME insulin degludec [Tresiba FlexTouch U-100] 100 unit/mL (3 mL) insulin pen 18 unit subcut DAILY acetaminophen 325 mg Tablet 650 mg PO Q6H PRN (Reason: Fever Or Pain) bisacodyl 10 mg Suppository 10 mg LA DAILY PRN (Reason: if no BM for 8 hours after MOM) insulin lispro [Humalog U-100 Insulin] 100 unit/mL Solution 1 sliding scale dose SUBCUT USEASDIRECTD Protocol: Insulin Correction Scale Less than or equal to 110 ---- Give (units): 0 111 to 150 Give (units): 0 151 to 200 Give (units): 0 201 to 250 Give (units): 4 251 to 300 Give (units): 6 301 to 350 Give (units): 8 Greater than 350 Give (units): 10 Call MD if Blood Glucose > : 400 acetaminophen 325 mg Tablet 650 mg PO TID risperidone 1 mg tablet 1 mg PO DAILY@0900 risperidone 0.5 mg tablet 0.5 mg PO DAILY@0900 sodium chloride 1,000 mg Tablet,Soluble 1,000 mg PO BID magnesium oxide 400 mg (241.3 mg magnesium) tablet 400 mg PO BID Held glipizide 10 mg Tablet 10 mg PO BIDWM Qty: 60 0RF Hold Instructions: Monitor blood sugar and restart if needed at 5 mg bid. Discharge Orders: Discharge Order (Routine); Ordered 10/25/24 Ordered By: Luciano Salgado Diet: Diabetic diet Activity on Discharge: As tolerated Stand Alone Forms: Patient Portal Discharge page Print Language: [place] Care Plan Goals: Hold Glipizide for now. monitor blood sugar and restart if needed on 5 mg only. Start Amoxicillin for total of 2 weeks Finasteride daily Keep burgos in place. Follow with Urology in 2 weeks in clinic Health Concerns: Bacteremia: Enterococcus and Proteus bacterias UTI Low blood sugar Plan of Treatment: Hold Glipizide Antibiotics Urology follow up Assessment: as above
[2024-10-25] MEDS: Amoxicillin 500 MG CAPSULE PO (13:42)
--- NOTE | 2024-10-25 14:21 | MHC.CM.PN ---
Pt is medically cleared for discharge, he will return to LTC at [facility], he will transport there via BLS/[facility].
[2024-10-25 15:35] VITALS: BP 140/68; PULSE 60; RESP 18; TEMP 36.8; O2SAT 97
[2024-10-25 15:53] LABS: Glucose, Whole Blood 167 mg/dL (60-115)
== END 2024-10-25 16:44 | DRG 872 ==
LOC: HO.ED 10-23 01:51 → HO.EDOVER 10-23 02:08 → HO.IMC 10-24 08:53
PROVIDERS: Admitting Provider Student in an Organized Health Care Education/Training Program; Emergency Provider Emergency Medicine; PCP Internal Medicine; Visit Provider Student in an Organized Health Care Education/Training Program
DX: A41.9 Sepsis, unspecified organism (principal); I50.22 Chronic systolic (congestive) heart failure; N39.0 Urinary tract infection, site not specified; D62 Acute posthemorrhagic anemia; N40.0 Benign prostatic hyperplasia without lower urinary tract symptoms; I11.0 Hypertensive heart disease with heart failure; N40.1 Benign prostatic hyperplasia with lower urinary tract symptoms; R33.8 Other retention of urine; R65.20 Severe sepsis without septic shock; B95.2 Enterococcus as the cause of diseases classified elsewhere; B96.4 Proteus (mirabilis) (morganii) as the cause of diseases classified elsewhere; E11.649 Type 2 diabetes mellitus with hypoglycemia without coma; R31.9 Hematuria, unspecified; Z20.822 Contact with and (suspected) exposure to COVID-19; Z86.73 Personal history of transient ischemic attack (TIA), and cerebral infarction without residual deficits; Z79.4 Long term (current) use of insulin; Z79.02 Long term (current) use of antithrombotics/antiplatelets; Z79.85 Long-term (current) use of injectable non-insulin antidiabetic drugs; Z79.899 Other long term (current) drug therapy
CPT/HCPCS: 0241U; 36415; 70450; 71045; 72125; 74176; 80048; 80053; 80202; 81001; 81003; 82947; 83036; 83605; 83735; 83880; 84484; 85025; 85027; 85610; 87040; 87077; 87086; 87088; 87186; 87205; 93005; 97110; 97162; 99285; J0696; J3370; J3371

== ENCOUNTER → 2024-10-22 22:09 | Outpatient (BNV) | payer MEDICARE, SELFPAY | PROVIDERS: Admitting Provider Student in an Organized Health Care Education/Training Program; Emergency Provider Emergency Medicine; PCP Internal Medicine; Visit Provider Internal Medicine | DX: I49.1 Atrial premature depolarization (principal) | CPT/HCPCS: 93010 ==

== ENCOUNTER → 2024-10-22 22:18 | Outpatient (BNV) | payer MEDICARE, SELFPAY | PROVIDERS: Emergency Provider Emergency Medicine; Visit Provider General Practice | DX: K86.89 Other specified diseases of pancreas (principal); M50.322 Other cervical disc degeneration at C5-C6 level; S09.90XA Unspecified injury of head, initial encounter; W19.XXXA Unspecified fall, initial encounter | CPT/HCPCS: 70450; 72125; 74176 ==

== ENCOUNTER → 2024-10-23 00:28 | Outpatient (BNV) | payer MEDICARE, SELFPAY | PROVIDERS: Emergency Provider Emergency Medicine; Visit Provider General Practice | DX: J84.89 Other specified interstitial pulmonary diseases (principal) | CPT/HCPCS: 71045 ==

== ENCOUNTER → 2024-10-23 01:51 | Outpatient (BNV) | payer MEDICARE, SELFPAY | PROVIDERS: Admitting Provider Student in an Organized Health Care Education/Training Program; Emergency Provider Emergency Medicine; Visit Provider Urology | DX: N39.0 Urinary tract infection, site not specified (principal); R31.9 Hematuria, unspecified | CPT/HCPCS: 99222 ==

== ENCOUNTER → 2024-10-23 01:51 | Outpatient (BNV) | payer MEDICARE, SELFPAY | PROVIDERS: Admitting Provider Student in an Organized Health Care Education/Training Program; Emergency Provider Emergency Medicine; PCP Internal Medicine; Visit Provider Internal Medicine | DX: R78.81 Bacteremia (principal); A41.9 Sepsis, unspecified organism; B95.2 Enterococcus as the cause of diseases classified elsewhere; D72.819 Decreased white blood cell count, unspecified | CPT/HCPCS: 99222 ==

== ENCOUNTER → 2024-10-23 01:51 | Outpatient (BNV) | payer MEDICARE, SELFPAY | PROVIDERS: Admitting Provider Student in an Organized Health Care Education/Training Program; Emergency Provider Emergency Medicine; Visit Provider Student in an Organized Health Care Education/Training Program | DX: D72.819 Decreased white blood cell count, unspecified (principal); R31.9 Hematuria, unspecified; N39.0 Urinary tract infection, site not specified; A41.9 Sepsis, unspecified organism; R78.81 Bacteremia; B95.2 Enterococcus as the cause of diseases classified elsewhere | CPT/HCPCS: 99223; 99233; 99499 ==

== ENCOUNTER 2024-11-08 21:00 | Inpatient (IN) | payer MEDICARE, SELFPAY ==
[2024-11-08] VITALS (12 sets, daily range): BP systolic 78–133; BP diastolic 44–55; PULSE 59–84; RESP 16–19; TEMP 37.8–39.1; O2SAT 93–97; BMI 26.4
--- NOTE | ~2024-11-08 | XR_ITS ---
CLINICAL HISTORY: sob 1 view chest x-ray Comparison: CR - XR CHEST 1V - 10/23/24 00:24 EST Findings: Very low lung volumes. Pulmonary vascular prominence. No focal infiltrate. No effusion or pneumothorax. Moderate cardiomegaly. No acute fracture. IMPRESSION: Low lung volumes with pulmonary vascular prominence. This document has been electronically signed by: Ancelmo Patel MD on 11/08/2024 22:37:19
[2024-11-08 21:25] LABS: Glucose, Whole Blood 169 mg/dL (60-115)
[2024-11-08] MEDS: LACTATED RINGERS 2580 ML IV (21:51)
--- NOTE | 2024-11-08 21:58 | ED.GENADULT ---
HPI - General Adult General Chief complaint: Altered Mental Status Stated complaint: sepsis alrt, hypoglycemia, altered confused, UTI Time Seen by Provider: 11/08/24 21:45 Source: patient Limitations: other (Lethargy, cognitive impairment) History of Present Illness ED Provider: Marissa Gross PA-C HPI narrative: 74 y/o M with hx of cognitive impairment, HFpEF 55-60%, HTN, CVA with subsequent gait instability,DM, prior alcohol use disorder, depression with psychotic features, BPH with subsequent urinary retention now with chronic indwelling Gross curently being treated for UTI, presents from rehab a a sepsis alert. Per EMS, the patient has become more lethargic throughout the day. He is currently being treated for urinary tract infection, he received 1 g of ceftriaxone and amoxicillin SLIP MAKER; per skilled nursing record these antibiotics were the last doses of his treatment. Patient was also noted to have labile blood sugars throughout the day. When EMS arrived his blood sugar was 49, he received 1 mg of glucagon and p.o. glucose paste. Patient did not receive insulin today, however he did receive his glipizide. Related Data Home Medications ?Medication ?Instructions ?Recorded ?Confirmed amlodipine 5 mg tablet 5 mg PO DAILY 08/14/24 10/23/24 atorvastatin 40 mg tablet 40 mg PO BEDTIME 08/14/24 10/23/24 clopidogrel 75 mg tablet 75 mg PO DAILY 08/14/24 10/23/24 insulin degludec 100 unit/mL (3 18 unit subcut DAILY 08/14/24 10/23/24 mL) subcutaneous pen (Tresiba FlexTouch U-100 insulin) metformin 1,000 mg tablet 1,000 mg PO BID 08/14/24 10/23/24 metoprolol succinate 50 mg 50 mg PO DAILY 08/14/24 10/23/24 tablet,extended release 24 hr mirtazapine 15 mg tablet 15 mg PO BEDTIME 08/14/24 10/23/24 risperidone 2 mg tablet 2 mg PO BEDTIME 08/14/24 10/23/24 tamsulosin 0.4 mg capsule 0.4 mg PO DAILY 08/14/24 10/23/24 trazodone 100 mg tablet 100 mg PO BEDTIME 08/14/24 10/23/24 acetaminophen 325 mg tablet 650 mg PO Q6H PRN Fever Or Pain 09/24/24 10/23/24 bisacodyl 10 mg rectal suppository 10 mg W[place] DAILY PRN if no BM for 8 09/24/24 10/23/24 hours after MOM insulin lispro 100 unit/mL 1 sliding scale dose subcut 09/24/24 10/23/24 subcutaneous solution (Humalog USEASDIRECTD U-100 Insulin) acetaminophen 325 mg tablet 650 mg PO TID 10/23/24 10/23/24 magnesium oxide 400 mg (241.3 mg 400 mg PO BID 10/23/24 10/23/24 magnesium) tablet risperidone 0.5 mg tablet 0.5 mg PO DAILY@0900 10/23/24 10/23/24 risperidone 1 mg tablet 1 mg PO DAILY@0900 10/23/24 10/23/24 sodium chloride 1,000 mg soluble 1,000 mg PO BID 10/23/24 10/23/24 tablet Previous Rx's ?Medication ?Instructions ?Recorded glipizide 10 mg tablet 10 mg PO BIDWM #60 tabs 12/01/23 lancets 28 gauge (FreeStyle #100 ea 12/01/23 Lancets) pen needle, diabetic 32 gauge x #100 ea 12/01/23/ amoxicillin 500 mg tablet 500 mg PO Q8H 14 days #42 tabs 10/25/24 finasteride 5 mg tablet 5 mg PO DAILY #90 tabs 10/25/24 Allergies Allergy/AdvReac Type Severity Reaction Status Date / Time meperidine [From DEMEROL] Allergy Unknown UNKNOWN Verified 11/08/24 21:36 Review of Systems Review of Systems: Unable to obtain as the patient is lethargic Yes all other systems are reviewed and are negative [facility] Past Medical History Attestation statement: The following information was validated with the patient. Medical History BPH loc w urin obs/LUTS Severe recurrent major depressive disorder with psychosis CHF (congestive heart failure) Hemorrhagic stroke Cholelithiasis Alcohol use disorder HTN (hypertension) Surgical History No pertinent past surgical history Social History Social History Household Members: None Housing: Group Home Do you presently have visiting nurse or other home services: No Alcohol intake: current Alcohol intake frequency: 0-2 drinks per day Alcohol type: hard liquor Comment: pt continues refusing bed alarm; chair alarm on pt in bed Patient Tobacco Use Status: Former Tobacco user Second Hand Smoke Exposure: No Advance Directives: Yes Advance Directives on File: Yes Advance Directives Date on File: 04/12/23 service: No Current occupational status: disabled Physical Exam ED Vital Signs: Vital Signs - 24 hr 11/08/24 21:34 11/08/24 22:05 11/08/24 22:44 Temperature 102.3 F H 101.7 F H Pulse Rate 77 84 76 Respiratory Rate 19 16 19 Blood Pressure 92/47 L 110/53 L 107/50 L Pulse Oximetry 96 94 94 Oxygen Delivery Method Room Air Room Air Room Air 11/08/24 22:49 11/08/24 23:09 11/08/24 23:10 Temperature 101.3 F H 100.6 F H 100.6 F H Pulse Rate 65 63 66 Respiratory Rate 18 18 19 Blood Pressure 116/44 L 99/55 L 93/52 L Pulse Oximetry 94 95 95 Oxygen Delivery Method Room Air Room Air Room Air 11/08/24 23:19 11/08/24 23:22 11/08/24 23:25 Temperature 100.6 F H 100.4 F 100.4 F Pulse Rate 60 63 66 Respiratory Rate 18 17 16 Blood Pressure 79/45 L 78/46 L 86/49 L Pulse Oximetry 93 93 93 Oxygen Delivery Method Room Air Room Air Room Air 11/08/24 23:34 11/08/24 23:48 11/09/24 00:03 Temperature 100.4 F 100.0 F 100.0 F Pulse Rate 70 59 56 Respiratory Rate 17 17 18 Blood Pressure 85/52 L 96/55 L 96/63 Pulse Oximetry 93 94 94 Oxygen Delivery Method Room Air Room Air Room Air 11/09/24 00:18 11/09/24 00:33 11/09/24 00:48 Temperature 99.5 F 99.5 F 99.5 F Pulse Rate 66 66 61 Respiratory Rate 16 17 16 Blood Pressure 119/68 117/64 112/65 Pulse Oximetry 96 96 95 Oxygen Delivery Method Room Air Room Air Room Air 11/09/24 01:03 11/09/24 01:06 Temperature 99.5 F 99.5 F Pulse Rate 58 53 Respiratory Rate 18 17 Blood Pressure 105/64 103/57 L Pulse Oximetry 95 95 Oxygen Delivery Method Room Air Room Air BMI result Body Mass Index 26.4 Const Other: Sleeping, woken with persistent verbal stimuli and gentle physical stimuli, very lethargic Orientation/consciousness: oriented to person and oriented to place HENMT Other: Dry oral mucosa Resp Effort & Inspection: normal respiratory effort Cardio Other: Normal peripheral perfusion Skin Other: Warm dry no rash Neuro Other: Patient at his baseline mentation per skilled nursing report, General: oriented to person, oriented to place, no focal motor deficits and CN's II-XI intact bilaterally Psych Other: Flat affect Course Reevaluation(s) Reevaluation #1: sepsis.....giving 1 gm ceftriaxone, he had 1 gm prearrival at SNF as treatment for his urinary tract infection; this is time stamped in his skilled nursing record that was sent with him via EMS. In addition to his screening labs blood cultures and lactic were obtained. I am also screening for other sources of his fever. We will repeat his urinalysis, adding chest x-ray and viral panel. Giving weight based IV fluid therapy. And rectal Tylenol 975 mg Time: 21:45 Reevaluation #2: Patient hypoglycemic to 50, giving 25 g of dextrose Time: 23:52 Medications Administered Discontinued Medications Generic Name Dose Route Start Last Admin Trade Name Rupeshq PRN Reason Stop Dose Admin Acetaminophen 975 mg 11/08/24 21:47 11/08/24 22:00 Acetaminophen Supp 325 Mg Supp.Rect WY 11/08/24 21:48 975 mg ONCE ONE Administration Ceftriaxone Sodium 1 gm 11/08/24 21:58 11/08/24 22:13 Ceftriaxone Sodium 1 Gm Vial IVPUSH 11/08/24 21:59 1 gm ONCE ONE Administration Dextrose 25 gm 11/08/24 23:52 11/09/24 00:04 Dextrose 50 % 25 Gm/50 Ml Syringe IVPUSH 11/08/24 23:53 25 gm ONCE ONE Administration Lactated Ringer's 2,580 mls @ 2,580 mls/hr 11/08/24 21:45 11/08/24 22:51 Lr 30 ml/kg infuse over 1 hr (2580 ml) 11/08/24 22:44 Infused IV Infusion .Q1H ONE Lactated Ringer's 1,000 mls @ 999 mls/hr 11/08/24 23:15 11/09/24 00:59 Lr IV 11/09/24 00:15 Infused .Q1H1M HERACLIO Infusion Medical Decision Making Medical Decision Making MDM Narrative: 74 y/o M with hx of cognitive impairment, HFpEF 55-60%, HTN, CVA with subsequent gait instability,DM, prior alcohol use disorder, depression with psychotic features, BPH with subsequent urinary retention now with chronic indwelling Gross curently being treated for UTI, presents from rehab a a sepsis alert. Per EMS, the patient has become more lethargic throughout the day. He is currently being treated for urinary tract infection, he received 1 g of ceftriaxone and amoxicillin SLIP MAKER; per skilled nursing record these antibiotics were the last doses of his treatment. Patient was also noted to have labile blood sugars throughout the day. When EMS arrived his blood sugar was 49, he received 1 mg of glucagon and p.o. glucose paste. Patient did not receive insulin today, however he did receive his glipizide. Problem: Age, cognitive impairment, diabetes History: Per EMS and skilled nursing record I have considered the following differential diagnoses: Sepsis, UTI, viral syndrome, pneumonia Plan: Concern for sepsis.. Patient was febrile and hypotensive...giving 1 gm ceftriaxone, he had 1 gm prearrival at SNF as treatment for his urinary tract infection; this is time stamped in his skilled nursing record that was sent with him via EMS. In addition to his screening labs blood cultures and lactic were obtained. I am also screening for other sources of his fever. We will repeat his urinalysis, adding chest x-ray and viral panel. Giving weight based IV fluid therapy. And rectal Tylenol 975 mg. I have independently reviewed the following tests: Labs: Leukocytosis with left shift, not anemic, creatinine elevated at 1.58 which is an KRYSTEN, 1st lactic acid 3, the 2nd is 2.8, urine infected, influenza a positive as well Chest x-ray:IMPRESSION: Low lung volumes with pulmonary vascular prominence. Lab Data 11/08/24 22:12 11/08/24 22:12 Labs: Lab Results 11/08/24 11/08/24 11/08/24 Range/Units 21:21 22:11 22:12 WBC 16.6 H (4.8-10.8) X10*3/uL RBC 4.27 L D (4.60-5.80) X10*6/uL Hgb 12.7 L D (14.0-18.0) g/dl Hct 37.4 L D (42.0-52.0) % MCV 87.6 (80.0-98.0) fL MCH 29.7 (27.0-33.0) pg MCHC 34.0 (31.0-36.0) g/dl RDW 14.8 (11.0-16.0) % Plt Count 272 D (160-400) X10*3/uL MPV 9.0 L (9.4-12.4) fL Immature Gran % (Auto) 0.4 (0.0-0.4) % Neut % (Auto) 75.4 H (45-73) % Lymph % (Auto) 10.7 L (20-40) % Emanuel % (Auto) 13.2 H (2-11) % Eos % (Auto) 0.0 (0-4) % Baso % (Auto) 0.3 (0-2) % Lymph # (Auto) 1.8 (1.2-4.9) X10*3/uL Emanuel # (Auto) 2.2 H (0.1-1.2) X10*3/uL Eos # (Auto) 0.0 (0.0-0.4) X10*3/uL Baso # (Auto) 0.1 (0.0-0.2) X10*3/uL Abs Immat Gran (auto) 0.07 H (0.00-0.03) X10*3/uL Absolute Neuts (auto) 12.6 H (2.0-8.3) x10*3/uL Absolute Nucleated RBC 0.000 (0.0-0.012) X10*3/uL Nucleated RBC % (auto) 0.0 (0.0-0.2) /100WBC Smear Tech's Comments VERIFIED Sodium 141 (135-145) mmol/L Potassium 4.3 D (3.3-5.1) mmol/L Chloride 106 (96-108) mmol/L Carbon Dioxide 23 (22-29) mmol/L Anion Gap 16 (12-20) BUN 35 H (9-16) mg/dL Creatinine 1.58 H (0.5-1.4) mg/dL Estim Creat Clear Calc 43.0 Estimated GFR 43 POC Glucose 169 H (60-115) mg/dL Random Glucose 149 H (60-115) mg/dL Lactic Acid 3.0 H* (0.5-2.0) mmol/L Lactic Acid F/U @ 2Hr (0.5-2.0) mmol/L Calcium 9.4 D (8.4-10.2) mg/dL Magnesium 2.1 (1.6-2.6) mg/dL Total Bilirubin 0.3 (0.0-1.0) mg/dL AST 27 (5-37) U/L ALT 12 (0-40) U/L Alkaline Phosphatase 72 (39-117) U/L Total Protein 8.0 (6.5-8.0) g/dL Albumin 3.8 (3.5-5.0) g/dL Urine Color Urine Appearance Urine pH (5.0-9.0) Ur Specific [place] (1.005-1.025) Urine Protein (Neg-Trace) mg/dL Urine Glucose (UA) (Negative) mg/dL Urine Ketones (Negative) mg/dL Urine Blood (Negative) Urine Nitrite (Negative) Ur Leukocyte Esterase (Negative) Urine RBC (0-2) /HPF Urine WBC (0-5) /HPF Ur Squamous Epith Cells (0-2) /HPF Urine Bacteria (None Seen) Hyaline Casts (0-2) /LPF Influenza Type A (PCR) POSITIVE A (Negative) Influenza Type B (PCR) NEGATIVE (Negative) RSV RNA Qual (PCR) NEGATIVE (Negative) SARS-CoV-2 RNA (RT-PCR) NEGATIVE (Negative) 11/08/24 11/08/24 11/09/24 Range/Units 23:01 23:51 00:29 WBC (4.8-10.8) X10*3/uL RBC (4.60-5.80) X10*6/uL Hgb (14.0-18.0) g/dl Hct (42.0-52.0) % MCV (80.0-98.0) fL MCH (27.0-33.0) pg MCHC (31.0-36.0) g/dl RDW (11.0-16.0) % Plt Count (160-400) X10*3/uL MPV (9.4-12.4) fL Immature Gran % (Auto) (0.0-0.4) % Neut % (Auto) (45-73) % Lymph % (Auto) (20-40) % Emanuel % (Auto) (2-11) % Eos % (Auto) (0-4) % Baso % (Auto) (0-2) % Lymph # (Auto) (1.2-4.9) X10*3/uL Emanuel # (Auto) (0.1-1.2) X10*3/uL Eos # (Auto) (0.0-0.4) X10*3/uL Baso # (Auto) (0.0-0.2) X10*3/uL Abs Immat Gran (auto) (0.00-0.03) X10*3/uL Absolute Neuts (auto) (2.0-8.3) x10*3/uL Absolute Nucleated RBC (0.0-0.012) X10*3/uL Nucleated RBC % (auto) (0.0-0.2) /100WBC Smear Tech's Comments Sodium (135-145) mmol/L Potassium (3.3-5.1) mmol/L Chloride (96-108) mmol/L Carbon Dioxide (22-29) mmol/L Anion Gap (12-20) BUN (9-16) mg/dL Creatinine (0.5-1.4) mg/dL Estim Creat Clear Calc Estimated GFR POC Glucose 50 L* (60-115) mg/dL Random Glucose (60-115) mg/dL Lactic Acid (0.5-2.0) mmol/L Lactic Acid F/U @ 2Hr 2.8 H* (0.5-2.0) mmol/L Calcium (8.4-10.2) mg/dL Magnesium (1.6-2.6) mg/dL Total Bilirubin (0.0-1.0) mg/dL AST (5-37) U/L ALT (0-40) U/L Alkaline Phosphatase (39-117) U/L Total Protein (6.5-8.0) g/dL Albumin (3.5-5.0) g/dL Urine Color Yellow Urine Appearance Clear Urine pH 5.5 (5.0-9.0) Ur Specific [place] 1.010 (1.005-1.025) Urine Protein Trace (Neg-Trace) mg/dL Urine Glucose (UA) Negative (Negative) mg/dL Urine Ketones Negative (Negative) mg/dL Urine Blood Large (3+) H (Negative) Urine Nitrite Negative (Negative) Ur Leukocyte Esterase Large (3+) H (Negative) Urine RBC >20 H (0-2) /HPF Urine WBC >50 H (0-5) /HPF Ur Squamous Epith Cells 6-10 (0-2) /HPF Urine Bacteria None Seen (None Seen) Hyaline Casts 3-5 (0-2) /LPF Influenza Type A (PCR) (Negative) Influenza Type B (PCR) (Negative) RSV RNA Qual (PCR) (Negative) SARS-CoV-2 RNA (RT-PCR) (Negative) 11/09/24 Range/Units 01:00 WBC (4.8-10.8) X10*3/uL RBC (4.60-5.80) X10*6/uL Hgb (14.0-18.0) g/dl Hct (42.0-52.0) % MCV (80.0-98.0) fL MCH (27.0-33.0) pg MCHC (31.0-36.0) g/dl RDW (11.0-16.0) % Plt Count (160-400) X10*3/uL MPV (9.4-12.4) fL Immature Gran % (Auto) (0.0-0.4) % Neut % (Auto) (45-73) % Lymph % (Auto) (20-40) % Emanuel % (Auto) (2-11) % Eos % (Auto) (0-4) % Baso % (Auto) (0-2) % Lymph # (Auto) (1.2-4.9) X10*3/uL Emanuel # (Auto) (0.1-1.2) X10*3/uL Eos # (Auto) (0.0-0.4) X10*3/uL Baso # (Auto) (0.0-0.2) X10*3/uL Abs Immat Gran (auto) (0.00-0.03) X10*3/uL Absolute Neuts (auto) (2.0-8.3) x10*3/uL Absolute Nucleated RBC (0.0-0.012) X10*3/uL Nucleated RBC % (auto) (0.0-0.2) /100WBC Smear Tech's Comments Sodium (135-145) mmol/L Potassium (3.3-5.1) mmol/L Chloride (96-108) mmol/L Carbon Dioxide (22-29) mmol/L Anion Gap (12-20) BUN (9-16) mg/dL Creatinine (0.5-1.4) mg/dL Estim Creat Clear Calc Estimated GFR POC Glucose 118 H (60-115) mg/dL Random Glucose (60-115) mg/dL Lactic Acid (0.5-2.0) mmol/L Lactic Acid F/U @ 2Hr (0.5-2.0) mmol/L Calcium (8.4-10.2) mg/dL Magnesium (1.6-2.6) mg/dL Total Bilirubin (0.0-1.0) mg/dL AST (5-37) U/L ALT (0-40) U/L Alkaline Phosphatase (39-117) U/L Total Protein (6.5-8.0) g/dL Albumin (3.5-5.0) g/dL Urine Color Urine Appearance Urine pH (5.0-9.0) Ur Specific [place] (1.005-1.025) Urine Protein (Neg-Trace) mg/dL Urine Glucose (UA) (Negative) mg/dL Urine Ketones (Negative) mg/dL Urine Blood (Negative) Urine Nitrite (Negative) Ur Leukocyte Esterase (Negative) Urine RBC (0-2) /HPF Urine WBC (0-5) /HPF Ur Squamous Epith Cells (0-2) /HPF Urine Bacteria (None Seen) Hyaline Casts (0-2) /LPF Influenza Type A (PCR) (Negative) Influenza Type B (PCR) (Negative) RSV RNA Qual (PCR) (Negative) SARS-CoV-2 RNA (RT-PCR) (Negative) Critical Care Time Critical Care Time Critical Care Time: Yes Total Critical Care Time: 30 Attestation: I Marissa Gross PA-C have personally performed 30 minutes of critical care time not including procedures and lines Discharge Plan Discharge Clinical Impression: Sepsis, Urinary tract infection, Acute kidney injury, Influenza A Patient Disposition: Admitted As Inpatient Prescriptions: No Action glipizide 10 mg Tablet 10 mg PO BIDWM Qty: 60 0RF (DME) pen needle, diabetic 32 gauge x 1/4 needle Qty: 100 0RF Rx Instructions: use with Lantus Solostar Pen once daily (DME) lancets [FreeStyle Lancets] 28 gauge misc Qty: 100 0RF Rx Instructions: Test four times a day or as directed. atorvastatin 40 mg tablet 40 mg PO BEDTIME metoprolol succinate 50 mg tablet extended release 24 hr 50 mg PO DAILY clopidogrel 75 mg tablet 75 mg PO DAILY amlodipine 5 mg tablet 5 mg PO DAILY risperidone 2 mg tablet 2 mg PO BEDTIME tamsulosin 0.4 mg capsule 0.4 mg PO DAILY trazodone 100 mg tablet 100 mg PO BEDTIME metformin 1,000 mg tablet 1,000 mg PO BID mirtazapine 15 mg tablet 15 mg PO BEDTIME insulin degludec [Tresiba FlexTouch U-100] 100 unit/mL (3 mL) insulin pen 18 unit subcut DAILY acetaminophen 325 mg Tablet 650 mg PO Q6H PRN (Reason: Fever Or Pain) bisacodyl 10 mg Suppository 10 mg WY DAILY PRN (Reason: if no BM for 8 hours after MOM) insulin lispro [Humalog U-100 Insulin] 100 unit/mL Solution 1 sliding scale dose SUBCUT USEASDIRECTD Protocol: Insulin Correction Scale Less than or equal to 110 ---- Give (units): 0 111 to 150 Give (units): 0 151 to 200 Give (units): 0 201 to 250 Give (units): 4 251 to 300 Give (units): 6 301 to 350 Give (units): 8 Greater than 350 Give (units): 10 Call MD if Blood Glucose > : 400 acetaminophen 325 mg Tablet 650 mg PO TID risperidone 1 mg tablet 1 mg PO DAILY@0900 risperidone 0.5 mg tablet 0.5 mg PO DAILY@0900 sodium chloride 1,000 mg Tablet,Soluble 1,000 mg PO BID magnesium oxide 400 mg (241.3 mg magnesium) tablet 400 mg PO BID finasteride 5 mg Tablet 5 mg PO DAILY Qty: 90 0RF amoxicillin 500 mg tablet 500 mg PO Q8H 14 Days Qty: 42 0RF Print Language: Greek
[2024-11-08] MEDS: Acetaminophen Supp 325 MG SUPP.RECT 975 MG PR (22:00)
--- NOTE | 2024-11-08 22:05 | MHC.EDTECH ---
This tech took over care of pt at 2200, quality systems techniciancharles Ashby assisted with labs and cultures, RN at bedside and is aware of temp and BP, continuos rectal probe will be placed
--- OUTSIDE RECORDS SUMMARY | 2024-11-08 22:12 | XMS_ITS | Encounter Summary ---
Author Organization [facility] Address [address] [place] [address] Care Team Providers Care Manager Domestic Name Role Phone Zay Bhagat MD Primary Care Provider Encounter Details Date Type Department Care Team (Late st Contact Info) Description 08/27/2024 Lab Requisition [facility] - Main Lab [address] [place] [address] Gris Rousseau MD [address] [id number] Type 2 diabetes mellitus without complications (CMS/HCC); Heart failure, unspecified (CMS/HCC) Social History Tobacco Use Types Packs/Day Years Used Date Smoking Tobacco: Former Cigarettes Smokeless Tobacco: Never Alcohol Use Standard Drinks/Week Comments Not Currently 0 (1 standard drink = 0.6 oz pur e alcohol) Sex and Gender Information Value Date Recorded Sex Assigned at Not on file Legal Sex Male 9:25 PM EST Gender Identity Not on file Sexual Orientation Not on file documented as of this encounter Plan of Treatment Not on file documented as of this encounter Procedures Procedure Name Priority Date/Time Associated Diagnosis Comments URINALYSIS MICROSCOPIC ONLY Routine 08/26/2024 9:00 PM EST Type 2 diabetes mellitus without complications (CMS/HCC) Heart failure, unspecified (CMS/HCC) URINALYSIS MICROSCOPIC ONLY Routine 08/26/2024 9:00 PM EST Type 2 diabetes mellitus without complications (CMS/HCC) Heart failure, unspecified (CMS/HCC) CULTURE URINE Routine 08/26/2024 9:00 PM EST Type 2 diabetes mellitus without complications (CMS/HCC) Heart failure, unspecified (CMS/HCC) documented in this encounter Results * (ABNORMAL) Urinalysis microscopic only (08/26/2024 9:00 PM EST) RBC, Urine 1.8 0 - 4 /HPF LAB URINALYSIS - AUTOMATED METHOD 08/27/2024 10:[address] [facility] WBC, Urine 8.4(H) 0 - 4 /HPF LAB URINALYSIS - AUTOMATED METHOD 08/27/2024 10:[address] [facility] Squamous Epithelial, Urine 48 0 - 60 /LPF LAB URINALYSIS - AUTOMATED METHOD 08/27/2024 10:[address] [facility] Bacteria, Urine Negative Negative /HPF LAB URINALYSIS - AUTOMATED METHOD 08/27/2024 10:[address] [facility] Hyaline Casts, Urine 2.5 0 - 3 /LPF LAB URINALYSIS - AUTOMATED METHOD 08/27/2024 10:[address] [facility] Urine Indwelling urinary catheter / Unknown 08/26/2024 9:00 PM EST 08/27/2024 10:06 AM EST us Gris Rousseau MD LAB URINE ORDERABLES Fin al Result [facility] [address] [place] [address], * (ABNORMAL) Culture urine (08/26/2024 9:00 PM EST) Culture, 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 Previous organism was Gram negative bacilli on 08/28/2024 at 1240 EST. Culture, Urine >100,000 CFU/mL Staphylococcus epidermidis(A) NI 08/29/2024 10:11 AM EST [facility] Comment: Edited result: Previously reported as Gram Positive Cocci on 08/28/2024 at 1240 EST. Urine Indwelling urinary catheter / Unknown 08/26/2024 9:00 PM EST 08/27/2024 10:06 AM EST Narrative Organism Antibiotic Method Susceptibility Leclercia adecarboxylata Amoxicillin/Clavulanate NI <=2 ug/ml: Susceptible Leclercia adecarboxylata Ampicillin/Sulbactam NI <=2 ug/ml: Susceptible Leclercia adecarboxylata Cefoxitin NI <=4 ug/ml: Susceptible Leclercia adecarboxylata Amikacin NI 2 ug/ml: Susceptible Leclercia adecarboxylata Ciprofloxacin NI <=0.06 ug/ml: Susceptible Leclercia adecarboxylata Nitrofurantoin NI 32 ug/ml: Susceptible Leclercia adecarboxylata Trimethoprim/Gross lfamethoxazo le IN <=20 ug/ml: Susceptible Staphylococcus epidermidis Benzylpenicillin NI >=0.5 ug/ml: Resistant Staphylococcus epidermidis Oxacillin NI >=4 ug/ml: Resistant Staphylococcus epidermidis Gentamicin NI <=0.5 ug/ml: Susceptible Staphylococcus epidermidis Ciprofloxacin NI <=0.5 ug/ml: Susceptible Staphylococcus epidermidis Levofloxacin NI <=0.12 ug/ml: Susceptible Staphylococcus epidermidis Quinupristin/Dalfopristin M IC <=0.25 ug/ml: Susceptible Staphylococcus epidermidis Linezolid NI 1 ug/ml: Susceptible Staphylococcus epidermidis Vancomycin NI 1 ug/ml: Susceptible Staphylococcus epidermidis Tetracycline NI <=1 ug/ml: Susceptible Staphylococcus epidermidis Nitrofurantoin NI <=16 ug/ml: Susceptible Staphylococcus epidermidis Rifampin NI <=0.5 ug/ml: Susceptible us Gris Rousseau MD LAB MICROBIOLOGY - GENER AL ORDERABLES Final Result [facility] [address] [place] [address], [place] [phone] documented in this encounter Visit Diagnoses Diagnosis Type 2 diabetes mellitus without complications (CMS/HCC) Heart failure, unspecified (CMS/HCC) Heart failure, unspecified documented in this encounter Additional Health Concerns Infection Onset Date Last Indicated Resolved Time Respiratory Rule-Out 11/08/2024 11/08/2024 025 4:47 PM EST Influenza 11/08/2024 11/08/2024 documented as of this encounter Care Teams Manager Domestic Relationship Specialty Start Date End Date Zay Bhagat MD [address] [place] [address] PCP - General 05/30/23 documented as of this encounter
--- OUTSIDE RECORDS SUMMARY | 2024-11-08 22:12 | XMS_ITS | Encounter Summary ---
Author Organization [facility] Address [address] [place] [address] Care Team Providers Care Briquette Operator Name Role Phone Zay Bhagat MD Primary Care Provider Reason for Visit * Reason Onset Date Comments hosp f/u 11/06/2024 Encounter Details Date Type Department Care Team ([facility] st Contact Info) Description 11/06/2024 Telephone Adult Medicine [facility] [address], [place] [phone] Zay Bhagat MD [address] [place] [address] hosp f/u Social History Tobacco Use Types Packs/Day Years [...] on file documented as of this encounter Progress Notes * Fatemeh Flores RN - 11/06/2024 8:33 AM EST Left vm for pt to return my call. * Zay Bhagat MD - 11/06/2024 7:56 AM EST Please schedule pt for hosp dc follow up. Was admitted at [facility]. documented in this encounter Plan of Treatment Not on file documented as of this encounter Visit Diagnoses Not on filedocumented in this encounter Additional Health Concerns Infection Onset Date Last Indicated Resolved Time Respiratory Rule-Out 11/08/2024 11/08/2024 025 4:47 PM EST Influenza 11/08/2024 11/08/2024 documented as of this encounter Care Teams Briquette Operator Relationship Specialty Start Date End Date Zay Bhagat MD [address] [place] [address] PCP - General 05/30/23 documented as of this encounter
--- OUTSIDE RECORDS SUMMARY | 2024-11-08 22:12 | XMS_ITS | Encounter Summary ---
Author Organization [facility] Address [address] [place] [address] Care Team Providers Care Behavioral Technician Name Role Phone Zay Bhagat MD Primary Care Provider Encounter Details Date Type Department Care Team (Late st Contact Info) Description 10/02/2024 Lab Requisition [facility] - Main Lab [address] [place] [address] Benjamin Gaytan MD [address] [place] [address] [place] [phone] Other [facility] (current) drug therapy Social History Tobacco Use Types Packs/Day Years [...] Procedure Name Priority Date/Time Associated Diagnosis Comments COMPREHENSIVE METABOLIC PANEL Routine 10/02/2024 4:52 AM EST Other [facility] (current) drug therapy documented in this encounter Results * (ABNORMAL) Comprehensive metabolic panel (10/02/2024 4:52 AM EST) Sodium 126(L) 133 - 145 mmol/L LAB CHEMISTRY METHOD 10/02/2024 12:38 PM EST [facility] Potassium 5.1 3.5 - 5.5 mmol/L LAB CHEMISTRY METHOD 10/02/2024 12:38 PM EST [facility] Chloride 92(L) 96 - 110 mmol/L LAB CHEMISTRY METHOD 10/02/2024 12:38 PM [facility] CO2 27 21 - 32 mmol/L LAB CHEMISTRY METHOD 10/02/2024 12:38 PM [facility] Anion Gap 7 3 - 11 LAB CHEMISTRY METHOD 10/02/2024 12:38 PM [facility] Glucose 80 70 - 100 mg/dL LAB CHEMISTRY METHOD 10/02/2024 12:38 PM [facility] BUN 17 5 - 25 mg/dL LAB CHEMISTRY METHOD 10/02/2024 12:38 PM [facility] Creatinine 0.84 0.70 - 1.30 mg/dL LAB CHEMISTRY METHOD 10/02/2024 12:38 PM [facility] eGFR 91 >=60 mL/min/1. 73m2 LAB CHEMISTRY METHOD 10/02/2024 12:38 PM [facility] Comment:Calculation based on the??Chronic Kidney Disease Epidemiology Collaboration (CKD-EPI) equation refit??without adjustment for race. BUN/Creatinine Ratio 20.2 LAB CHEMISTRY METHOD 10/02/2024 12:38 PM [facility] Calcium 9.4 8.5 - 10.5 mg/dL LAB CHEMISTRY METHOD 10/02/2024 12:38 PM [facility] AST (SGOT) 16 10 - 42 unit/L LAB CHEMISTRY METHOD 10/02/2024 12:38 PM [facility] ALT (SGPT) 22 10 - 60 unit/L LAB CHEMISTRY METHOD 10/02/2024 12:38 PM [facility] Alkaline Phosphatase 57 42 - 121 unit/L LAB CHEMISTRY METHOD 10/02/2024 12:38 PM [facility] Total Protein 6.7 6.0 - 8.0 g/dL LAB CHEMISTRY METHOD 10/02/2024 12:38 PM [facility] Albumin 3.6 3.2 - 5.0 g/dL LAB CHEMISTRY METHOD 10/02/2024 12:38 PM EST [facility] Total Bilirubin 0.5 0.0 - 1.4 mg/dL LAB CHEMISTRY METHOD 10/02/2024 12:38 PM EST [facility] Blood Venous blood specimen / Unknown Venipuncture / Unknown 10/02/2024 4:52 AM EST 10/02/2024 10:40 AM EST us Benjamin Gaytan MD LAB BLOOD ORDERABLES Final Resu lt [facility] [address] [place] [address], documented in this encounter Visit Diagnoses Diagnosis Other [facility] (current) drug therapy documented in this encounter Additional Health Concerns Infection Onset Date Last Indicated Resolved Time Respiratory Rule-Out 11/08/2024 11/08/2024 025 4:47 PM EST Influenza 11/08/2024 11/08/2024 documented as of this encounter Care Teams Behavioral Technician Relationship Specialty Start Date End Date Zay Bhagat MD [address] [place] [address] PCP - General 05/30/23 documented as of this encounter
--- OUTSIDE RECORDS SUMMARY | 2024-11-08 22:12 | XMS_ITS | Clinical Summary ---
Author Organization [address] [place] [address] [place] [phone] Phone Care Team Providers Care Burlap Worker Name Role Phone Zay Bhagat MD Primary Care Provider Allergies Active Allergy Reactions Criticality Noted Date Comments Meperidine 07/25/2023 Medications blood-glucose meter kit Use to test blood sugar 3 times daily. 4 Active CALCIUM CARBONATE ORAL Take by mouth. Active flash glucose scanning reader (FreeStyle Bill 2 [place]) misc 1 Device by Does not apply route continuous. 4 Active flash glucose sensor (FREESTYLE BILL 2 SENSOR MISC) 1 Product by Does not apply route every 14 days. 4 Active pen needle, diabetic 32 gauge x 5/32 needle Use to inject insulin daily 4 Active glucose blood test strip ONE TOUCH BASIC STRIPS Patient sig: Apply 1 Strip topically 3 times daily. 4 Active ONETOUCH ULTRASOFT LANCETS MISC Use to test blood sugar 3 times daily. 4 Active thiamine 100 mg tablet Take 1 Tablet by mouth daily. 4 Active alcohol swabs pads, medicated Use to clean skin prior to blood sugar check three times a day 4 Active amLODIPine (NORVASC) 5 mg tablet Take 1 Tablet by mouth daily for 180 days. 4 Active folic acid (FOLVITE) 1 mg tablet TAKE 1 TABLET BY MOUTH EVERY DAY 4 Active insulin degludec (TRESIBA FlexTouch) 100 unit/mL (3 mL) injection pen Inject 20 Units into the skin every evening. 4 Active insulin glargine (Lantus Solostar U-100 Insulin) 100 unit/mL (3 mL) injection pen Inject 20 units into the skin daily. 4 Active ketoconazole (NIZORAL) 2 % shampoo APPLY 5 TO 10 ML TO WET SCALP, LATHER, LEAVE ON 3 TO 5 MINUTES, AND RINSE APPLY TWICE WEEKLY FOR 2 TO 4 WEEKS. 4 Active lidocaine 4 % patch Apply topically as needed. Active lisinopriL (PRINIVIL,ZESTR IL) 5 mg tablet Take 1 Tablet by mouth daily. 4 Active magnesium oxide (MAG-OX) 400 mg (241.3 elemental magnesium) tablet Take 1 Tablet by mouth daily. 3 Active metFORMIN (GLUCOPHAGE) 1,000 mg tablet Take 1 Tablet by mouth 2 times daily (with meals). 4 Active risperiDONE (RisperDAL) 1 mg tablet TAKE 1 TABLET BY MOUTH TWICE A DAY 4 Active tamsulosin (FLOMAX) 0.4 mg 24 hr capsule TAKE 1 CAPSULE BY MOUTH DAILY. TAKE 30 MINS AFTER SAME MEAL EVERY DAY. 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 Diabetic peripheral neuropathy 12/25/2023 Nephrolithiasis 12/25/2023 Overview (06/06/2024): Last Assessment & Plan: Nonobstructing left renal calculus noted incidentally on CT scan in November 2023 Type 2 diabetes mellitus wit h hyperglycemia, without long-term current use of insulin 12/25/2023 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 11/15/2023 Overview (06/06/2024): - Pharmacologic nuclear stress test performed for symptoms of potential angina on 12/21/2023 showed medium sized, moderately severe perfusion defect at the apical septal, apical anterior, apical lateral jones, and apical jones that looked worse on rest compared with stress imaging which improved to a small, mild apical septal and apical anterior reversible defect on attenuation correction imaging-all in all an equivocal study; EF did worsen from 65% to 49% with stress which is concerning but not definitive, TID ratio was normal -Patient is somewhat of a vague historian but symptoms after repeated questioning did sound suspicious for angina and therefore cardiology has been treating with escalating medication for this along with risk factor modification Last Assessment & Plan: At this point, I hesitate to do further medication changes given his previous history of coexisting orthostatic hypotension. Furthermore, at this point, he is on 2 antianginals and still having symptoms. I would like to set him up for definitive cardiac cath. All risk, benefits, and alternatives to the procedure were reviewed with the patient who verbalized understanding. I also reviewed the procedure in detail and reviewed potential outcomes with him. I was able to answer his questions to his satisfaction and gave him some further literature about the procedure. Precath labs have been ordered. In the meantime, I would like to continue current atorvastatin, baby aspirin, metoprolol, amlodipine. Orthostatic hypotension 11/15/2023 Overview (06/06/2024): Last Assessment & Plan: Currently euvolemic on no Lasix for several months now, hold off on further diuretic therapy. Recommend slow postural changes, continued avoidance of alcohol use. I am cautiously continuing his current regimen of metoprolol and low-dose lisinopril. If orthostatic symptoms continue or if he has more falls, would consider backing off on metoprolol. SVT (supraventricular tachycardia) 11/15/2023 Overview (06/06/2024): - Was noted to have episodes of a narrow complex tachycardia that was short- lived in the 150s to 160s during his hospitalization at [facility] for which he was initiated on metoprolol which was subsequently decreased in dose at a subsequent [facility] hospitalization for orthostatic hypotension and volume depletion Last Assessment & Plan: No obvious recurrences, continue current metoprolol. 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 Alcohol use disorder 06/06/2023 Chronic heart failure with preserved ejection fr action 06/06/2023 Overview (06/06/2024): - Hospitalized at [facility] in April 2023 after a mechanical fall initially but had also been complaining of months worth of progressive dyspnea on exertion and was found to have an elevated BNP of 524 but ruled out with serial cardiac enzymes - Was diuresed with IV Lasix for few doses then transition to an oral dose, was also started on metoprolol for incidental SVT as detailed under SVT section - Echocardiogram during his [facility] hospitalization in April 2023 showed moderate, concentric LV hypertrophy with normal cavity size and systolic function, normal regional wall motion with ejection fraction of 55 to 60%, normal RV size and systolic function, dilated aortic root at 4 cm and ascending aorta at 4 cm, no hemodynamically significant valve disease - Subsequently hospitalized at [facility] (records are not scanned into [facility]) in May 2023 6 days after getting out of rehab-he suffered another mechanical fall getting out of his reclining chair-complaining of dizziness prior to the fall - It was thought to be secondary to orthostasis and he was given IV fluids- oral Lasix was discontinued and metoprolol was decreased to 12.5 twice daily Last Assessment & Plan: Clinically euvolemic on exam. Hypertension 06/06/2023 Overview (06/06/2024): Last Assessment & Plan: Reasonably controlled but adding amlodipine 5 mg as an antianginal. Side effects reviewed with the patient who verbalized understanding. Multiple falls 06/06/2023 Other hyperlipidemia 06/06/2023 Overview (06/06/2024): Last Assessment & Plan: Was recently started by his PCP on 20 mg of atorvastatin. I asked him to increase that further to 40 mg in 1 week. Encounters Date Type Department Care Team Description 11/08/2024 Lab Requisition [facility] - Main Lab [address] [facility] [place] [phone] Gris Rousseau MD Chronic cough 11/08/2024 Lab Requisition [facility] - Main Lab [address] [place] [phone] Gris Rousseau MD Hematuria, unspecified; Essential (primary) hypertension; Urinary tract infection, site not specified 11/06/2024 Telephone Adult [address] [phone] Zay Bhagat MD hosp f/u 10/04/2024 Lab Requisition [facility] - Main Lab [address] [place] [phone] Gris Rousseau MD Type 2 diabetes mellitus without complications (CMS/HCC) 10/02/2024 Lab Requisition [facility] Lab [address] [place] [phone] Benjamin Gaytan MD Other jail (current) drug therapy 09/28/2024 Lab Requisition [facility] Lab [address] [place] [phone] Gris Rousseau MD Type 2 diabetes mellitus without complications (CMS/HCC) 09/26/2024 Lab Requisition [facility] Lab [address] [place] [phone] Gris Rousseau MD Type 2 diabetes mellitus without complications (CMS/HCC) 09/23/2024 Telephone Adult [address] [phone] Zay Bhagat MD 09/20/2024 Lab Requisition [facility] Main Lab [address] [place] [phone] Gris Rousseau MD Essential (primary) hypertension 09/20/2024 Telephone Adult [address] [phone] Zay Bhagat MD Hospital Follow-up 09/13/2024 Lab Requisition [facility] Main Lab [address] [place] [phone] Gris Rousseau MD Essential (primary) hypertension 09/06/2024 Lab Requisition [facility] Lab [address] [place] [phone] Gris Rousseau MD Essential (primary) hypertension 08/27/2024 Lab Requisition [facility] Lab [address] [place] [phone] Gris Rousseau MD Type 2 diabetes mellitus without complications (CMS/HCC); Heart failure, unspecified (CMS/HCC) 08/16/2024 Lab Requisition [facility] Lab [address] [place] [phone] Gris Rousseau MD Heart failure, unspecified (CMS/HCC); Anemia, unspecified; Type 2 diabetes mellitus without complications (CMS/HCC) 08/16/2024 Telephone [facility] Asim Peters [place] 08/13/2024 Telephone Adult Medicine [address] [phone] Tianna Ramos [place] faxed order ([facility] order #[id number]) 08/12/2024 Telephone Adult Medicine [address] [phone] Renny Tolbert LPN Hospital Follow-up 08/12/2024 Telephone Adult Medicine [address] [phone] Renny Tolbert LPN from Last 3 Months Immunizations Name Administration Dates Next Due Influenza Quadravalent, MDCK , 0.5ml, with preservative (Flucelvax) 6mo and older 06/04/2021 Influenza trivalent, 0.5mL ( Fluzone High-dose) 65yo and older 06/06/2023,07/11/2022 Moderna (age 6mo & older) Bi valent, COVID-19, 0.5 mL or 0.25 mL dosage 07/11/2022 Pneumococcal conjugate 20 va lent (Prevnar 20, PCV 20) 2mo and older 07/10/2023 Tdap Tetanus diptheria acell ular pertussis (Boostrix; Adacel) 7yo and older 07/10/2023 Zoster recombinant (Shingrix) 19yo and older Surgical History Surgery Date Site/Laterality Comments CARDIAC CATHETERIZATION Done on 04/11/2024 at [facility] [place] [facility] Indications:Chest tightness w /exertion, recent angina /dyspnea and angina Family History Medical History Relation Name Comments Coronary artery disease Father Stroke Father Coronary artery disease Mother Relation Name Status Comments Father Mother Social History Tobacco Use Types Packs/Day Years Used Date Smoking Tobacco: Former Cigarettes Smokeless Tobacco: Never Tobacco Cessation:Counseling Given: Not Answered Alcohol Use Standard Drinks/Week Comments Not Currently 0 (1 standard drink = 0.6 oz pur e alcohol) Sex and Gender Information Value Date Recorded Sex Assigned at Not on file Legal Sex Male 9:25 PM EST Gender Identity Not on file Sexual Orientation Not on file Obstetrics History Last Filed Vital Signs Vital Sign [place] Time Taken Comments Blood Pressure 98/42 04/29/2024 11:23 AM EDT Pulse 74 04/29/2024 11:23 AM EDT Temperature - - Respiratory Rate - - Oxygen Saturation - - Inhaled Oxygen Concentration - - Weight 90.7 kg (200 lb) 04/29/2024 11:23 AM EDT Height 177.8 cm (5' 10 ) 04/29/2024 11:23 AM EDT Body Mass Index 28.7 04/29/2024 11:23 AM EDT Plan of Treatment Health Maintenance Due Date Last Done Comments Diabetes: Annual Retina Eye Exam 1960 Hepatitis A Vaccines (1 of 2 - Risk 2-dose series) 1968 Hepatitis B Vaccines (1 of 3 - Risk 3-dose series) 2009 Depression Screening 10/08/2023 Falls Risk Assessment 10/08/2023 Hepatitis C Screening 10/08/2023 Medicare Annual Wellness Visit 10/08/2023 Social Influencers of Health Screening 10/08/2023 Zoster Vaccines (2 of 2) 11/29/2023 10/04/2023 COVID-19 Vaccine ( season) 2024 06/13/2023, 07/11/2022, 10/05/2021, Additional history exists Influenza Vaccine (#1) 2024 , 07/11/2022, 06/07/2021, Additional history exists RSV Immunization Patients 60+ Years Old (1 - 1-dose 75+ series) 2024 Diabetes: Annual Foot Exam 12/24/2024 12/25/2023 Diabetes: Blood Sugar Control Test (HGBA1C) 02/17/2025 08/19/2024, 03/22/2024, 03/22/2024 Diabetes: Annual Urine Albumin-Creatinine Ratio (uACR) 03/22/2025 03/22/2024 Diabetes: Annual GFR (Glomerular Filtration Rate) 10/02/2025 10/02/2024, 09/30/2024, 09/26/2024, Additional history exists Hypertension/CHF/CAD Annual BMP Blood Test 10/02/2025 10/02/2024, 09/30/2024, 09/26/2024, Additional history exists Cholesterol Screening (Lipid Panel) 03/22/2029 03/22/2024, 03/22/2024 DTaP,Tdap,and Td Vaccines (3 - Td or Tdap) 07/10/2033 07/10/2023, 05/23/2015 Colorectal Cancer Screening: Colonoscopy 02/28/2034 02/29/2024 Pneumococcal Vaccine: 50+ Years Completed 07/10/2023, 10/21/2016, 09/11/2015 Abdominal Aortic Aneurysm (AAA) Screen Completed 09/29/2023, 09/29/2023 HIB Vaccines Aged Out No longer eligi ble based on patient's age to complete this topic HPV Vaccines Aged Out No longer eligi ble based on patient's age to complete this topic IPV Vaccines Aged Out No longer eligi ble based on patient's age to complete this topic MMR Vaccines Aged Out No longer eligi ble based on patient's age to complete this topic Meningococcal ACWY Vaccine Aged Out N o longer eligible based on patient's age to complete this topic Meningococcal B Vacine Aged Out No lo nger eligible based on patient's age to complete this topic RSV Immunization Patients Under 20 months Aged Out No longer eligible based on patient's age to complete this topic Varicella Vaccines Aged Out No longer eligible based on patient's age to complete this topic Procedures Procedure Name Priority Date/Time Associated Diagnosis Comments [id number], RSV, FLU A AND B QUALITATIVE RT-PCR, LOCAL REFERENCE LAB Routine 11/08/2024 12:00 AM EST Chronic cough URINALYSIS WITH REFLEX MICROSCOPIC AND CULTURE Routine 11/07/2024 11:55 PM EST Hematuria, unspecified Essential (primary) hypertension Urinary tract infection, site not specified DANIELS URINE CULTURE TUBE Routine 11/07/2024 11:55 PM EST Hematuria, unspecified Essential (primary) hypertension Urinary tract infection, site not specified URINALYSIS WITH REFLEX MICROSCOPIC AND CULTURE Routine 11/07/2024 11:55 PM EST Hematuria, unspecified Essential (primary) hypertension Urinary tract infection, site not specified COMPREHENSIVE METABOLIC PANEL Routine 10/02/2024 4:52 AM EST Other exterminator termite (current) drug therapy COMPREHENSIVE METABOLIC PANEL Routine 09/30/2024 10:45 AM EST Type 2 diabetes mellitus without complications (CMS/HCC) COMPLETE BLOOD COUNT Routine 09/30/2024 10:45 AM EST Type 2 diabetes mellitus without complications (CMS/HCC) COMPREHENSIVE METABOLIC PANEL Routine 09/26/2024 6:01 AM EST Type 2 diabetes mellitus without complications (CMS/HCC) COMPLETE BLOOD COUNT Routine 09/26/2024 6:01 AM EST Type 2 diabetes mellitus without complications (CMS/HCC) COMPREHENSIVE METABOLIC PANEL Routine 09/16/2024 7:12 AM EST Essential (primary) hypertension COMPLETE BLOOD COUNT Routine 09/16/2024 7:12 AM EST Essential (primary) hypertension COMPREHENSIVE METABOLIC PANEL Routine 09/09/2024 7:06 AM EST Essential (primary) hypertension COMPLETE BLOOD COUNT Routine 09/09/2024 7:06 AM EST Essential (primary) hypertension URINALYSIS MICROSCOPIC ONLY Routine 08/26/2024 9:00 PM EST Type 2 diabetes mellitus without complications (CMS/HCC) Heart failure, unspecified (CMS/HCC) URINALYSIS MICROSCOPIC ONLY Routine 08/26/2024 9:00 PM EST Type 2 diabetes mellitus without complications (CMS/HCC) Heart failure, unspecified (CMS/HCC) CULTURE URINE Routine 08/26/2024 9:00 PM EST Type 2 diabetes mellitus without complications (CMS/HCC) Heart failure, unspecified (CMS/HCC) HEMOGLOBIN A1C Routine 08/19/2024 9:22 AM EST Heart failure, unspecified (CMS/HCC) Anemia, unspecified Type 2 diabetes mellitus without complications (CMS/HCC) COMPREHENSIVE METABOLIC PANEL Routine 08/19/2024 9:22 AM EST Heart failure, unspecified (CMS/HCC) Anemia, unspecified Type 2 diabetes mellitus without complications (CMS/HCC) COMPLETE BLOOD COUNT Routine 08/19/2024 9:22 AM EST Heart failure, unspecified (CMS/HCC) Anemia, unspecified Type 2 diabetes mellitus without complications (CMS/HCC) EXTERNAL XRAY REPORT 08/13/2024 HM URINE ALBUMIN CREATININE RATIO Routine 03/22/2024 LIPID PANEL Routine 03/22/2024 HM COLONOSCOPY Routine 02/29/2024 DIABETES FOOT EXAM Routine 12/25/2023 US ABDOMINAL AORTA REAL TIME SCREEN STUDY AAA Routine 09/29/2023 9:30 AM EST Encounter for screening for cardiovascular disorders from Last 3 Months or Most Recently Relevant to Health Maintenance Results * (ABNORMAL) [id number], RSV, Influenza A and B qualitative RT-PCR (11/08/2024 12:00 AM EST) SARS COV-2 Not Detected Not Detected LAB MOLECULAR DIAGNOSTICS METHOD 11/08/2024 4:47 PM EST [facility] Comment: Disclaimer: The manner in which this information is used to guide patient care is the responsibility of the healthcare provider. Testing was performed using the [employer] Alinity m SARS-CoV-2 test. This test has been authorized by FDA under an Emergency Use Authorization (EUA). This test is only authorized for the duration of time the declaration that circumstances exist justifying the authorization of the emergency use of in vitro diagnostic tests for detection of SARS-CoV-2 virus and/or diagnosis of COVID-19 infection under section 564(b)(1) of the Act, 21 U.S.C. 360bbb- 3(b)(1), unless the authorization is terminated or revoked sooner. Fact sheet for Healthcare Providers can be found at: https://www.fda.gov/media/639581/download Fact sheet for Patients can be found at: https://www.fda.gov/media/904953/download Influenza A PCR Detected(A ) Not Detected LAB MOLECULAR DIAGNOSTICS METHOD 11/08/2024 4:47 PM EST [facility] Comment:This patient is posi tive for influenza A. If the patient is admitted, please order the Respiratory Virus Panel PCR (Epic ID: [id number]) so our lab can subtype the influenza A, per CDC recommendations. Influenza B PCR Not Detected Not Detected LAB MOLECULAR DIAGNOSTICS METHOD 11/08/2024 4:47 PM [facility] RSV PCR Not Detected Not Detected LAB MOLECULAR DIAGNOSTICS METHOD 11/08/2024 4:47 PM [facility] Swab Nasopharyngeal structure / Unknown Non-blood Collection / Unknown 11/08/2024 11/08/2024 2:14 PM EST us Gris Rousseau MD LAB MICROBIOLOGY - GENER AL ORDERABLES Final Result [facility] [address] [place] [address], [place] [phone] * (ABNORMAL) Urinalysis with reflex microscopic and culture (11/07/2024 11:55 PM EST) Specific [place] Urine 1.020 1.003 - 1.030 LAB URINALYSIS - AUTOMATED METHOD 11/08/2024 12:04 PM [facility] pH, Urine 6.0 5.0 - 8.0 pH LAB URINALYSIS - AUTOMATED METHOD 11/08/2024 12:04 PM [facility] Leukocytes, Urine Moderate(A) Negative LAB URINALYSIS - AUTOMATED METHOD 11/08/2024 12:04 PM [facility] Nitrite, Urine Negative Negative LAB URINALYSIS - AUTOMATED METHOD 11/08/2024 12:04 PM [facility] Protein, Urine 30(A) <=Trace mg/dL LAB URINALYSIS - AUTOMATED METHOD 11/08/2024 12:04 PM [facility] Glucose, Urine Negative Negative mg/dL LAB URINALYSIS - AUTOMATED METHOD 11/08/2024 12:04 PM [facility] Ketones, Urine Negative Negative mg/dL LAB URINALYSIS - AUTOMATED METHOD 11/08/2024 12:04 PM [facility] Urobilinogen , Urine 0.2 0.2 - 1.0 mg/dL LAB URINALYSIS - AUTOMATED METHOD 11/08/2024 12:04 PM [facility] Bilirubin, Urine Negative Negative LAB URINALYSIS - AUTOMATED METHOD 11/08/2024 12:04 PM [facility] Blood, Urine Large(A) Negative LAB URINALYSIS - AUTOMATED METHOD 11/08/2024 12:04 PM [facility] RBC, Urine >100(H) 0 - 4 /HPF 11/08/2024 12:04 PM [facility] WBC, Urine >100(H) 0 - 4 /HPF 11/08/2024 12:04 PM [facility] Squamous Epithelial, Urine 10 0 - 60 /LPF 11/08/2024 12:04 PM [facility] Bacteria, Urine Moderate(A) Negative /HPF 11/08/2024 12:04 PM [facility] Hyaline Casts, Urine 6(H) 0 - 3 /LPF 11/08/2024 12:04 PM [facility] Urine Urine specimen obtained by clean catch procedure / Unknown Non-blood Collection / Unknown 11/07/2024 11:55 PM EST 11/08/2024 11:12 AM EST Gris Rousseau MD LAB URINE ORDERABLES Fin al Result Performing Organization Address [facility]/ZIP Co de Phone Number [facility] [address] [place] [address], [place] [phone] * Daniels urine culture tube (11/07/2024 11:55 PM EST) Extra Tube Hold for add-ons. 11/08/2024 1:01 PM [facility] Comment:Auto resulted. Urine Urine specimen obtained by clean catch procedure / Unknown Non-blood Collection / Unknown 11/07/2024 11:55 PM EST 11/08/2024 11:12 AM EST Gris Rousseau MD LAB URINE ORDERABLES Fin al Result Performing Organization Address [facility]/ZIP Co de Phone Number [facility] [address] [place] [address], [place] [phone] * (ABNORMAL) Comprehensive metabolic panel (10/02/2024 4:52 AM EST) Only the most recent of6 resultswithin the time period is included. Sodium 126(L) 133 - 145 mmol/L LAB CHEMISTRY METHOD 10/02/2024 12:38 PM [facility] Potassium 5.1 3.5 - 5.5 mmol/L LAB CHEMISTRY METHOD 10/02/2024 12:38 PM [facility] Chloride 92(L) 96 - 110 mmol/L LAB CHEMISTRY METHOD 10/02/2024 12:38 PM [facility] CO2 27 21 - 32 mmol/L LAB CHEMISTRY METHOD 10/02/2024 12:38 PM [facility] Anion Gap 7 3 - 11 LAB CHEMISTRY METHOD 10/02/2024 12:38 PM [facility] Glucose 80 70 - 100 mg/dL LAB CHEMISTRY METHOD 10/02/2024 12:38 PM [facility] BUN 17 5 - 25 mg/dL LAB CHEMISTRY METHOD 10/02/2024 12:38 PM [facility] Creatinine 0.84 0.70 - 1.30 mg/dL LAB CHEMISTRY METHOD 10/02/2024 12:38 PM [facility] eGFR 91 >=60 mL/min/1. 73m2 LAB CHEMISTRY METHOD 10/02/2024 12:38 PM [facility] Comment:Calculation based on the??Chronic Kidney Disease Epidemiology Collaboration (CKD-EPI) equation refit??without adjustment for race. BUN/Creatinine Ratio 20.2 LAB CHEMISTRY METHOD 10/02/2024 12:38 PM [facility] Calcium 9.4 8.5 - 10.5 mg/dL LAB CHEMISTRY METHOD 10/02/2024 12:38 PM [facility] AST (SGOT) 16 10 - 42 unit/L LAB CHEMISTRY METHOD 10/02/2024 12:38 PM [facility] ALT (SGPT) 22 10 - 60 unit/L LAB CHEMISTRY METHOD 10/02/2024 12:38 PM [facility] Alkaline Phosphatase 57 42 - 121 unit/L LAB CHEMISTRY METHOD 10/02/2024 12:38 PM [facility] Total Protein 6.7 6.0 - 8.0 g/dL LAB CHEMISTRY METHOD 10/02/2024 12:38 PM [facility] Albumin 3.6 3.2 - 5.0 g/dL LAB CHEMISTRY METHOD 10/02/2024 12:38 PM [facility] Total Bilirubin 0.5 0.0 - 1.4 mg/dL LAB CHEMISTRY METHOD 10/02/2024 12:38 PM [facility] Blood Venous blood specimen / Unknown Venipuncture / Unknown 10/02/2024 4:52 AM EST 10/02/2024 10:40 AM EST us Benjamin Gaytan MD LAB BLOOD ORDERABLES Final Resu lt [facility] [address] [place] [address], * (ABNORMAL) Complete blood count (09/30/2024 10:45 AM EST) Only the most recent of5 resultswithin the time period is included. WBC 9.8 4.8 - 10.8 K/mcL LAB HEMETOLOGY METHOD 09/30/2024 1:17 PM [facility] RBC 4.50 4.50 - 5.50 M/mcL LAB HEMETOLOGY METHOD 09/30/2024 1:17 PM [facility] Hemoglobin 13.5 13.5 - 17.5 g/dL LAB HEMETOLOGY METHOD 09/30/2024 1:17 PM [facility] Hematocrit 39.3(L) 42.0 - 54.0 % LAB HEMETOLOGY METHOD 09/30/2024 1:17 PM [facility] MCV 87.5 79.0 - 98.0 FL LAB HEMETOLOGY METHOD 09/30/2024 1:17 PM [facility] MCH 30.1 27.0 - 32.0 pcg LAB HEMETOLOGY METHOD 09/30/2024 1:17 PM EST [facility] MCHC 34.4 32.0 - 37.0 g/dL LAB HEMETOLOGY METHOD 09/30/2024 1:17 PM [facility] RDW 12.8 11.0 - 15.0 % LAB HEMETOLOGY METHOD 09/30/2024 1:17 PM [facility] Platelets 250 130 - 400 K/mcL LAB HEMETOLOGY METHOD 09/30/2024 1:17 PM [facility] MPV 9.7 7.0 - 11.0 FL LAB HEMETOLOGY METHOD 09/30/2024 1:17 PM [facility] NRBC 0.0 <1.0 % LAB HEMETOLOGY METHOD 09/30/2024 1:17 PM [facility] NRBC Absolute 0.00 <0.10 K/mcL LAB HEMETOLOGY METHOD 09/30/2024 1:17 PM [facility] Blood Venous blood specimen / Unknown Venipuncture / Unknown 09/30/2024 10:45 AM EST 09/30/2024 11:48 AM EST us Gris Rousseau MD LAB BLOOD ORDERABLES Fin al Result [facility] [address] [place] [address], * (ABNORMAL) Urinalysis microscopic only (08/26/2024 9:00 PM EST) RBC, Urine 1.8 0 - 4 /HPF LAB URINALYSIS - AUTOMATED METHOD 08/27/2024 10:31 AM [facility] WBC, Urine 8.4(H) 0 - 4 /HPF LAB URINALYSIS - AUTOMATED METHOD 08/27/2024 10:31 AM [facility] Squamous Epithelial, Urine 48 0 - 60 /LPF LAB URINALYSIS - AUTOMATED METHOD 08/27/2024 10:31 AM EST [facility] Bacteria, Urine Negative Negative /HPF LAB URINALYSIS - AUTOMATED METHOD 08/27/2024 10:31 AM [facility] Hyaline Casts, Urine 2.5 0 - 3 /LPF LAB URINALYSIS - AUTOMATED METHOD 08/27/2024 10:31 AM [facility] Urine Indwelling urinary catheter / Unknown 08/26/2024 9:00 PM EST 08/27/2024 10:06 AM EST us Gris Rousseau MD LAB URINE ORDERABLES Fin al Result [facility] [address] [place] [address], * (ABNORMAL) Culture urine (08/26/2024 9:00 PM EST) Culture, Urine >100,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 Previous organism was Gram negative bacilli on 08/28/2024 at 1240 EST. Culture, Urine >100,000 CFU/mL Staphylococcus epidermidis(A) NI 08/29/2024 10:11 AM EST [facility] Comment: Edited result: Previously reported as [...] ug/ml: Susceptible Leclercia adecarboxylata Trimethoprim/Gross lfamethoxazo le NI <=20 ug/ml: Susceptible Staphylococcus epidermidis Benzylpenicillin NI [...] Staphylococcus epidermidis Rifampin NI <=0.5 ug/ml: Susceptible Gris Rousseau MD LAB MICROBIOLOGY - GENER AL ORDERABLES Final Result Performing Organization Address City/[facility] Co de Phone Number [facility] [address] [place] [address], * Hemoglobin A1c (08/19/2024 9:22 AM EST) Hemoglobin A1C 6.1 <6.5 % LAB CHEMISTRY METHOD 08/19/2024 2:45 PM EST [facility] Mean Bld Glu Estim. 128 mg/dL LAB CHEMISTRY METHOD 08/19/2024 2:45 PM EST [facility] Blood Venous blood specimen / Unknown Venipuncture / Unknown 08/19/2024 9:22 AM EST 08/19/2024 12:07 PM EST Gris Rousseau MD LAB BLOOD ORDERABLES Fin al Result [facility] [address] [place] [address], [place] [phone] * External Xray Report (08/13/2024) Anatomical Region Laterality Modality Radiographic Wendy ging Provider [place] [facility] IMG XR PROCEDURES Final Result * Urine Albumin Creatinine Ratio (03/22/2024) Pathologist [facility] Urine Albumin Creatinine Ratio abstracted [facility] Provider HEALTH MAINTENANCE Final Result * Lipid panel (03/22/2024) [facility] LDL/HDL Ratio 2 0 - 4 Triglycerides 76 0 - 150 mg/dL Cholesterol 84 0 - 200 mg/dL HDL 45 >=40 mg/dL LDL Cholesterol 24 0 - 100 mg/dL Blood Venous blood specimen / Unknown [facility] Provider LAB BLOOD ORDERABLES Tonia l Result * Colonoscopy (02/29/2024) Pathologist [facility] Colonoscopy no interpreta tion,abstr acted Anatomical Region Laterality Modality Other [facility] Provider HEALTH MAINTENANCE Final Result * Diabetes Foot Exam (12/25/2023) Pathologist [facility] Diabetes: Annual Foot Exam abstracted [facility] Provider HEALTH MAINTENANCE Final Result * US ABDOMINAL AORTA REAL TIME SCREEN STUDY AAA (09/29/2023 9:30 AM EST) Anatomical Region Laterality Modality Ultrasound 09/25/2023 2:55 PM EST Narrative 09/29/2023 10:26 AM EST US ABDOMINAL AORTA REAL TIME SCREEN STUDY AAA COMPARISON: None HISTORY: AAA screening ? FINDINGS: Measurements as follows: Proximal aorta: 1.7 cm Mid aorta: 1.6 cm Distal aorta: 1.5 cm Right common iliac artery: 1.1 cm Left common iliac artery: 1.0 cm IMPRESSION: IMPRESSION: No abdominal aortic aneurysm. Procedure Note Laura Betts MD - 04/22/2024 US ABDOMINAL AORTA REAL TIME SCREEN STUDY AAA COMPARISON: None HISTORY: AAA screening FINDINGS: Measurements as follows: Proximal aorta: 1.7 cm Mid aorta: 1.6 cm Distal aorta: 1.5 cm Right common iliac artery: 1.1 cm Left common iliac artery: 1.0 cm IMPRESSION: IMPRESSION: No abdominal aortic aneurysm. us Samanta Ted BRYANT US PROCEDURES Final Result from Last 3 Months or Most Recently Relevant to Health Maintenance Additional Health Concerns Infection Onset Date Last Indicated Influenza 11/08/2024 11/08/2024 Insurance Care Teams Burlap Worker Relationship Specialty Start Date End Date Zay Bhagat MD [address] [place] [address] PCP - General 05/30/23
--- OUTSIDE RECORDS SUMMARY | 2024-11-08 22:12 | XMS_ITS | Encounter Summary ---
Author Organization [facility] Address [address] [place] [address] Care Team Providers Care Parts Runner Name Role Phone Zay Bhagat MD Primary Care Provider Encounter Details Date Type Department Care Team (Late st Contact Info) Description 09/13/[address] [facility] - Main Lab [address] [place] [address] Gris Rousseau MD [address] [address] Essential (primary) hypertension Social History Tobacco Use Types Packs/Day Years [...] Procedure Name Priority Date/Time Associated Diagnosis Comments COMPLETE BLOOD COUNT Routine 09/16/2024 7:12 AM EST Essential (primary) hypertension COMPREHENSIVE METABOLIC PANEL Routine 09/16/2024 7:12 AM EST Essential (primary) hypertension documented in this encounter Results * (ABNORMAL) Comprehensive metabolic panel (09/16/2024 7:12 AM EST) Sodium 137 133 - 145 mmol/L LAB CHEMISTRY METHOD 09/16/2024 11:01 AM EST [facility] Potassium 4.1 3.5 - 5.5 mmol/L LAB CHEMISTRY METHOD 09/16/2024 11:01 AM [facility] Chloride 102 96 - 110 mmol/L LAB CHEMISTRY METHOD 09/16/2024 11:01 AM [facility] CO2 29 21 - 32 mmol/L LAB CHEMISTRY METHOD 09/16/2024 11:01 AM [facility] Anion Gap 6 3 - 11 LAB CHEMISTRY METHOD 09/16/2024 11:01 AM [facility] Glucose 68(L) 70 - 100 mg/dL LAB CHEMISTRY METHOD 09/16/2024 11:01 AM [facility] BUN 19 5 - 25 mg/dL LAB CHEMISTRY METHOD 09/16/2024 11:01 AM [facility] Creatinine 0.86 0.70 - 1.30 mg/dL LAB CHEMISTRY METHOD 09/16/2024 11:01 AM [facility] eGFR 90 >=60 mL/min/1. 73m2 LAB CHEMISTRY METHOD 09/16/2024 11:01 AM [facility] Comment:Calculation based on the??Chronic Kidney Disease Epidemiology Collaboration (CKD-EPI) equation refit??without adjustment for race. BUN/Creatinine Ratio 22.1 LAB CHEMISTRY METHOD 09/16/2024 11:01 AM [facility] Calcium 9.7 8.5 - 10.5 mg/dL LAB CHEMISTRY METHOD 09/16/2024 11:01 AM [facility] AST (SGOT) 14 10 - 42 unit/L LAB CHEMISTRY METHOD 09/16/2024 11:01 AM [facility] ALT (SGPT) 20 10 - 60 unit/L LAB CHEMISTRY METHOD 09/16/2024 11:01 AM [facility] Alkaline Phosphatase 70 42 - 121 unit/L LAB CHEMISTRY METHOD 09/16/2024 11:01 AM [facility] Total Protein 7.4 6.0 - 8.0 g/dL LAB CHEMISTRY METHOD 09/16/2024 11:01 AM [facility] Albumin 3.6 3.2 - 5.0 g/dL LAB CHEMISTRY METHOD 09/16/2024 11:01 AM [facility] Total Bilirubin 0.4 0.0 - 1.4 mg/dL LAB CHEMISTRY METHOD 09/16/2024 11:01 AM [facility] Blood Venous blood specimen / Unknown Venipuncture / Unknown 09/16/2024 7:12 AM EST 09/16/2024 9:34 AM EST us Gris Rousseau MD LAB BLOOD ORDERABLES Fin al Result [facility] [address] [place] [address], [place] [phone] * (ABNORMAL) Complete blood count (09/16/2024 7:12 AM EST) WBC 8.7 4.8 - 10.8 K/mcL LAB HEMETOLOGY METHOD 09/16/2024 10:30 AM [facility] RBC 4.50 4.50 - 5.50 M/[facility] LAB HEMETOLOGY METHOD 09/16/2024 10:30 AM [facility] Hemoglobin 13.8 13.5 - 17.5 g/dL LAB HEMETOLOGY METHOD 09/16/2024 10:30 AM [facility] Hematocrit 41.5(L) 42.0 - 54.0 % LAB HEMETOLOGY METHOD 09/16/2024 10:30 AM [facility] MCV 91.4 79.0 - 98.0 FL LAB HEMETOLOGY METHOD 09/16/2024 10:30 AM [facility] MCH 30.4 27.0 - 32.0 pcg LAB HEMETOLOGY METHOD 09/16/2024 10:30 AM [facility] MCHC 33.3 32.0 - 37.0 g/dL LAB HEMETOLOGY METHOD 09/16/2024 10:30 AM EST [facility] RDW 12.2 11.0 - 15.0 % LAB HEMETOLOGY METHOD 09/16/2024 10:30 AM [facility] Platelets 351 130 - 400 K/mcL LAB HEMETOLOGY METHOD 09/16/2024 10:30 AM EST [facility] MPV 8.9 7.0 - 11.0 FL LAB HEMETOLOGY METHOD 09/16/2024 10:30 AM EST [facility] NRBC 0.0 <1.0 % LAB HEMETOLOGY METHOD 09/16/2024 10:30 AM [facility] NRBC Absolute 0.00 <0.10 K/mcL LAB HEMETOLOGY METHOD 09/16/2024 10:30 AM [facility] Blood Venous blood specimen / Unknown Venipuncture / Unknown 09/16/2024 7:12 AM EST 09/16/2024 9:36 AM EST Gris Rousseau MD LAB BLOOD ORDERABLES Fin al Result [facility] [address] [place] [address], documented in this encounter Visit Diagnoses Diagnosis Essential (primary) hypertension Unspecified essential hypertension documented in this encounter Additional Health Concerns Infection Onset Date Last Indicated Resolved Time Respiratory Rule-Out 11/08/2024 11/08/2024 025 4:47 PM EST Influenza 11/08/2024 11/08/2024 documented as of this encounter Care Teams Parts Runner Relationship Specialty Start Date End Date Zay Bhagat MD [address] [place] [address] PCP - General 05/30/23 documented as of this encounter
--- OUTSIDE RECORDS SUMMARY | 2024-11-08 22:12 | XMS_ITS | Encounter Summary ---
Author Organization [facility] Address [address] [place] [address] Care Team Providers Care As400 Analyst Name Role Phone Zay Bhagat MD Primary Care Provider Encounter Details Date Type Department Care Team (Late st Contact Info) Description 10/04/2024 Lab Requisition [facility] - Main Lab [address] [facility] [place] [address] Gris Rousseau MD [address] [address] Type 2 diabetes mellitus without complications (CMS/HCC) Social History Tobacco Use Types Packs/Day [...] documented as of this encounter Visit Diagnoses Diagnosis Type 2 diabetes mellitus without complications (CMS/HCC) documented in this encounter Additional Health Concerns Infection Onset Date Last Indicated Resolved Time Respiratory Rule-Out 11/08/2024 11/08/2024 025 4:47 PM EST Influenza 11/08/2024 11/08/2024 documented as of this encounter Care Teams As400 Analyst Relationship Specialty Start Date End Date Zay Bhagat MD [address] [place] [address] PCP - General 05/30/23 documented as of this encounter
--- OUTSIDE RECORDS SUMMARY | 2024-11-08 22:12 | XMS_ITS | Encounter Summary ---
Author Organization [facility] Address [address] [place] [address] Care Team Providers Care District Court Reporter Name Role Phone Zay Bhagat MD Primary Care Provider Encounter Details Date Type Department Care Team (Late st Contact Info) Description 09/26/[address] [facility] - Main Lab [address] [facility] [place] [address] Gris Rousseau MD [address] [address] Type 2 diabetes mellitus without complications (CMS/HCC) [...] Associated Diagnosis Comments COMPLETE BLOOD COUNT Routine 09/26/2024 6:01 AM EST Type 2 diabetes mellitus without complications (CMS/HCC) COMPREHENSIVE METABOLIC PANEL Routine 09/26/2024 6:01 AM EST Type 2 diabetes mellitus without complications (CMS/HCC) documented in this encounter Results * (ABNORMAL) Comprehensive metabolic panel (09/26/2024 6:01 AM EST) Sodium 131(L) 133 - 145 mmol/L LAB CHEMISTRY METHOD 09/26/2024 9:18 AM [facility] Potassium 4.0 3.5 - 5.5 mmol/L LAB CHEMISTRY METHOD 09/26/2024 9:18 AM [facility] Chloride 97 96 - 110 mmol/L LAB CHEMISTRY METHOD 09/26/2024 9:18 AM [facility] CO2 29 21 - 32 mmol/L LAB CHEMISTRY METHOD 09/26/2024 9:18 AM [facility] Anion Gap 5 3 - 11 LAB CHEMISTRY METHOD 09/26/2024 9:18 AM [facility] Glucose 117(H) 70 - 100 mg/dL LAB CHEMISTRY METHOD 09/26/2024 9:18 AM [facility] BUN 17 5 - 25 mg/dL LAB CHEMISTRY METHOD 09/26/2024 9:18 AM [facility] Creatinine 0.82 0.70 - 1.30 mg/dL LAB CHEMISTRY METHOD 09/26/2024 9:18 AM [facility] eGFR 92 >=60 mL/min/1. 73m2 LAB CHEMISTRY METHOD 09/26/2024 9:18 AM [facility] Comment:Calculation based on the??Chronic Kidney Disease Epidemiology Collaboration (CKD-EPI) equation refit??without adjustment for race. BUN/Creatinine Ratio 20.7 LAB CHEMISTRY METHOD 09/26/2024 9:18 AM [facility] Calcium 9.0 8.5 - 10.5 mg/dL LAB CHEMISTRY METHOD 09/26/2024 9:18 AM [facility] AST (SGOT) 16 10 - 42 unit/L LAB CHEMISTRY METHOD 09/26/2024 9:18 AM [facility] ALT (SGPT) 19 10 - 60 unit/L LAB CHEMISTRY METHOD 09/26/2024 9:18 AM [facility] Alkaline Phosphatase 59 42 - 121 unit/L LAB CHEMISTRY METHOD 09/26/2024 9:18 AM [facility] Total Protein 6.5 6.0 - 8.0 g/dL LAB CHEMISTRY METHOD 09/26/2024 9:18 AM EST [facility] Albumin 3.5 3.2 - 5.0 g/dL LAB CHEMISTRY METHOD 09/26/2024 9:18 AM [facility] Total Bilirubin 0.6 0.0 - 1.4 mg/dL LAB CHEMISTRY METHOD 09/26/2024 9:18 AM [facility] Blood Venous blood specimen / Unknown Venipuncture / Unknown 09/26/2024 6:01 AM EST 09/26/2024 8:29 AM EST us Gris Rousseau MD LAB BLOOD ORDERABLES Fin al Result [facility] [address] [place] [address], * (ABNORMAL) Complete blood count (09/26/2024 6:01 AM EST) WBC 6.5 4.8 - 10.8 K/mcL LAB HEMETOLOGY METHOD 09/26/2024 8:56 AM [facility] RBC 4.10(L) 4.50 - 5.50 M/mcL LAB HEMETOLOGY METHOD 09/26/2024 8:56 AM [facility] Hemoglobin 12.2(L) 13.5 - 17.5 g/dL LAB HEMETOLOGY METHOD 09/26/2024 8:56 AM [facility] Hematocrit 35.7(L) 42.0 - 54.0 % LAB HEMETOLOGY METHOD 09/26/2024 8:56 AM [facility] MCV 87.9 79.0 - 98.0 FL LAB HEMETOLOGY METHOD 09/26/2024 8:56 AM [facility] MCH 30.0 27.0 - 32.0 pcg LAB HEMETOLOGY METHOD 09/26/2024 8:56 AM EST [facility] MCHC 34.2 32.0 - 37.0 g/dL LAB HEMETOLOGY METHOD 09/26/2024 8:56 AM [facility] RDW 12.2 11.0 - 15.0 % LAB HEMETOLOGY METHOD 09/26/2024 8:56 AM [facility] Platelets 246 130 - 400 K/mcL LAB HEMETOLOGY METHOD 09/26/2024 8:56 AM [facility] MPV 9.5 7.0 - 11.0 FL LAB HEMETOLOGY METHOD 09/26/2024 8:56 AM [facility] NRBC 0.0 <1.0 % LAB HEMETOLOGY METHOD 09/26/2024 8:56 AM [facility] NRBC Absolute 0.00 <0.10 K/mcL LAB HEMETOLOGY METHOD 09/26/2024 8:56 AM [facility] Blood Venous blood specimen / Unknown Venipuncture / Unknown 09/26/2024 6:01 AM EST 09/26/2024 8:29 AM EST us Gris Rousseau MD LAB BLOOD ORDERABLES Fin al Result [facility] [address] [place] [address], documented in this encounter Visit Diagnoses Diagnosis Type 2 diabetes mellitus without complications (CMS/HCC) documented in this encounter Additional Health Concerns Infection Onset Date Last Indicated Resolved Time Respiratory Rule-Out 11/08/2024 11/08/2024 025 4:47 PM EST Influenza 11/08/2024 11/08/2024 documented as of this encounter Care Teams District Court Reporter Relationship Specialty Start Date End Date Zay Bhagat MD [address] [place] [address] PCP - General 05/30/23 documented as of this encounter
--- OUTSIDE RECORDS SUMMARY | 2024-11-08 22:12 | XMS_ITS | Encounter Summary ---
Author Organization [facility] Address [address] [place] [address] Care Team Providers Care Production Lead Name Role Phone Zay Bhagat MD Primary Care Provider Encounter Details Date Type Department Care Team (Late st Contact Info) Description 11/08/2024 Lab Requisition [facility] - Main Lab [address] [facility] [place] [address] Gris Rousseau MD [address] [id number] Hematuria, unspecified; Essential (primary) hypertension; Urinary tract infection, site not specified Social History Tobacco Use Types Packs/Day Years [...] as of this encounter Plan of Treatment Pending Results Name Type Priority Associated Diagnoses Date /Time Culture urine Microbiology Routine Hematuria, unspecified Essential (primary) hypertension Urinary tract infection, site not specified 11/07/2024 11:55 PM EST documented as of this encounter Procedures Procedure Name Priority Date/Time Associated Diagnosis Comments URINALYSIS WITH REFLEX MICROSCOPIC AND CULTURE Routine [...] hypertension Urinary tract infection, site not specified documented in this encounter Results * (ABNORMAL) Urinalysis with reflex microscopic and culture (11/07/2024 11:55 PM EST) Specific [place] Urine 1.020 1.003 - 1.030 LAB URINALYSIS - AUTOMATED METHOD 11/08/2024 12:04 PM [facility] pH, Urine 6.0 5.0 - 8.0 pH LAB URINALYSIS - AUTOMATED METHOD 11/08/2024 12:04 PM [facility] Leukocytes, Urine Moderate(A) Negative LAB URINALYSIS - AUTOMATED METHOD 11/08/2024 12:04 PM [facility] Nitrite, Urine Negative Negative LAB URINALYSIS - AUTOMATED METHOD 11/08/2024 12:04 PM [facility] Protein, Urine 30(A) <=Trace mg/dL LAB URINALYSIS - AUTOMATED METHOD 11/08/2024 12:04 PM [facility] Glucose, Urine Negative Negative mg/dL LAB URINALYSIS - AUTOMATED METHOD 11/08/2024 12:04 PM [facility] Ketones, Urine Negative Negative mg/dL LAB URINALYSIS - AUTOMATED METHOD 11/08/2024 12:04 PM [facility] Urobilinogen , Urine 0.2 0.2 - 1.0 mg/dL LAB URINALYSIS - AUTOMATED METHOD 11/08/2024 12:04 PM [facility] Bilirubin, Urine Negative Negative LAB URINALYSIS - AUTOMATED METHOD 11/08/2024 12:04 PM [facility] Blood, Urine Large(A) Negative LAB URINALYSIS - AUTOMATED METHOD 11/08/2024 12:04 PM [facility] RBC, Urine >100(H) 0 - 4 /HPF 11/08/2024 12:04 PM [facility] WBC, Urine >100(H) 0 - 4 /HPF 11/08/2024 12:04 PM [facility] Squamous Epithelial, Urine 10 0 - 60 /LPF 11/08/2024 12:04 PM [facility] Bacteria, Urine Moderate(A) Negative /HPF 11/08/2024 12:04 PM [facility] Hyaline Casts, Urine 6(H) 0 - 3 /LPF 11/08/2024 12:04 PM [facility] Urine Urine specimen obtained by clean catch procedure / Unknown Non-blood Collection / Unknown 11/07/2024 11:55 PM EST 11/08/2024 11:12 AM EST Gris Rousseau MD LAB URINE ORDERABLES Fin al Result Performing Organization Address City/[facility]/ZIP Co de Phone Number [facility] [address] [place] [address], [place] [phone] * Daniels urine culture tube (11/07/2024 11:55 PM EST) Extra Tube Hold for add-ons. 11/08/2024 1:01 PM EST [facility] Comment:Auto resulted. Urine Urine specimen obtained by clean catch procedure / Unknown Non-blood Collection / Unknown 11/07/2024 11:55 PM EST 11/08/2024 11:12 AM EST Gris Rousseau MD LAB URINE ORDERABLES Fin al Result Performing Organization Address [facility]/ZIP Co de Phone Number [facility] [address] [place] [address], [place] [phone] documented in this encounter Visit Diagnoses Diagnosis Hematuria, unspecified Essential (primary) hypertension Unspecified essential hypertension Urinary tract infection, site not specified documented in this encounter Additional Health Concerns Infection Onset Date Last Indicated Resolved Time Respiratory Rule-Out 11/08/2024 11/08/2024 025 4:47 PM EST Influenza 11/08/2024 11/08/2024 documented as of this encounter Care Teams Production Lead Relationship Specialty Start Date End Date Zay Bhagat MD [address] [place] [address] PCP - General 05/30/23 documented as of this encounter
--- OUTSIDE RECORDS SUMMARY | 2024-11-08 22:12 | XMS_ITS | Encounter Summary ---
Author Organization [facility] Address [address] [place] [address] Care Team Providers Care Dial Maker Name Role Phone Zay Bhagat MD Primary Care Provider Encounter Details Date Type Department Care Team (Late st Contact Info) Description 09/28/2024 Lab Requisition [facility] - Main Lab 299 [facility] [place] [address] Gris Rousseau MD [address] [address] Type 2 diabetes mellitus without complications (CMS/HCC) [...] Associated Diagnosis Comments COMPLETE BLOOD COUNT Routine 09/30/2024 10:45 AM EST Type 2 diabetes mellitus without complications (CMS/HCC) COMPREHENSIVE METABOLIC PANEL Routine 09/30/2024 10:45 AM EST Type 2 diabetes mellitus without complications (CMS/HCC) documented in this encounter Results * (ABNORMAL) Comprehensive metabolic panel (09/30/2024 10:45 AM EST) Sodium 124(L) 133 - 145 mmol/L LAB CHEMISTRY METHOD 09/30/2024 2:[address] [facility] Potassium 4.5 3.5 - 5.5 mmol/L LAB CHEMISTRY METHOD 09/30/2024 2:[address] [facility] Chloride 89(L) 96 - 110 mmol/L LAB CHEMISTRY METHOD 09/30/2024 2:[address] [facility] CO2 26 21 - 32 mmol/L LAB CHEMISTRY METHOD 09/30/2024 2:[address] [facility] Anion Gap 9 3 - 11 LAB CHEMISTRY METHOD 09/30/2024 2:[address] [facility] Glucose 229(H) 70 - 100 mg/dL LAB CHEMISTRY METHOD 09/30/2024 2:[address] [facility] BUN 17 5 - 25 mg/dL LAB CHEMISTRY METHOD 09/30/2024 2:[address] [facility] Creatinine 1.41(H) 0.70 - 1.30 mg/dL LAB CHEMISTRY METHOD 09/30/2024 2:[address] [facility] eGFR 52(L) >=60 mL/min/1. 73m2 LAB CHEMISTRY METHOD 09/30/2024 2:[address] [facility] Comment:Calculation based on the??Chronic Kidney Disease Epidemiology Collaboration (CKD-EPI) equation refit??without adjustment for race. BUN/Creatinine Ratio 12.1 LAB CHEMISTRY METHOD 09/30/2024 2:[address] [facility] Calcium 10.1 8.5 - 10.5 mg/dL LAB CHEMISTRY METHOD 09/30/2024 2:[address] [facility] AST (SGOT) 28 10 - 42 unit/L LAB CHEMISTRY METHOD 09/30/2024 2:[address] [facility] ALT (SGPT) 23 10 - 60 unit/L LAB CHEMISTRY METHOD 09/30/2024 2:[address] [facility] Alkaline Phosphatase 68 42 - 121 unit/L LAB CHEMISTRY METHOD 09/30/2024 2:[address] [facility] Total Protein 7.5 6.0 - 8.0 g/dL LAB CHEMISTRY METHOD 09/30/2024 2:[address] [facility] Albumin 4.1 3.2 - 5.0 g/dL LAB CHEMISTRY METHOD 09/30/2024 2:[address] [facility] Total Bilirubin 0.7 0.0 - 1.4 mg/dL LAB CHEMISTRY METHOD 09/30/2024 2:[address] [facility] Blood Venous blood specimen / Unknown Venipuncture / Unknown 09/30/2024 10:45 AM EST 09/30/2024 11:48 AM EST Gris Rousseau MD LAB BLOOD ORDERABLES Fin al Result [facility] [address] [place] [address], * (ABNORMAL) Complete blood count (09/30/2024 10:45 AM EST) WBC 9.8 4.8 - 10.8 K/mcL LAB HEMETOLOGY METHOD 09/30/2024 1:[address] [facility] RBC 4.50 4.50 - 5.50 M/mcL LAB HEMETOLOGY METHOD 09/30/2024 1:[address] [facility] Hemoglobin 13.5 13.5 - 17.5 g/dL LAB HEMETOLOGY METHOD 09/30/2024 1:[address] [facility] Hematocrit 39.3(L) 42.0 - 54.0 % LAB HEMETOLOGY METHOD 09/30/2024 1:[address] [facility] MCV 87.5 79.0 - 98.0 FL LAB HEMETOLOGY METHOD 09/30/2024 1:[address] [facility] MCH 30.1 27.0 - 32.0 pcg LAB HEMETOLOGY METHOD 09/30/2024 1:[address] [facility] MCHC 34.4 32.0 - 37.0 g/dL LAB HEMETOLOGY METHOD 09/30/2024 1:[address] [facility] RDW 12.8 11.0 - 15.0 % LAB HEMETOLOGY METHOD 09/30/2024 1:[address] [facility] Platelets 250 130 - 400 K/mcL LAB HEMETOLOGY METHOD 09/30/2024 1:[address] [facility] MPV 9.7 7.0 - 11.0 FL LAB HEMETOLOGY METHOD 09/30/2024 1:[address] [facility] NRBC 0.0 <1.0 % LAB HEMETOLOGY METHOD 09/30/2024 1:[address] [facility] NRBC Absolute 0.00 <0.10 K/mcL LAB HEMETOLOGY METHOD 09/30/2024 1:[address] [facility] Blood Venous blood specimen / Unknown Venipuncture / Unknown 09/30/2024 10:45 AM EST 09/30/2024 11:48 AM EST us Gris Rousseau MD LAB BLOOD ORDERABLES Fin al Result [facility] [address] [place] [address], documented in this encounter Visit Diagnoses Diagnosis Type 2 diabetes mellitus without complications (CMS/HCC) documented in this encounter Additional Health Concerns Infection Onset Date Last Indicated Resolved Time Respiratory Rule-Out 11/08/2024 11/08/2024 025 4:47 PM EST Influenza 11/08/2024 11/08/2024 documented as of this encounter Care Teams Dial Maker Relationship Specialty Start Date End Date Zay Bhagat MD [address] [place] [address] PCP - General 05/30/23 documented as of this encounter
--- OUTSIDE RECORDS SUMMARY | 2024-11-08 22:12 | XMS_ITS | Encounter Summary ---
Author Organization [facility] Address [address] [place] [address] Care Team Providers Care Dental Services Director Name Role Phone Zay Bhagat MD Primary Care Provider Encounter Details Date Type Department Care Team (Late st Contact Info) Description 08/16/2024 Lab Requisition [facility] - Main Lab 299 [facility] [place] [address] Gris Rousseau MD [address] [phone] Heart failure, unspecified (CMS/HCC); Anemia, unspecified; Type [...] Associated Diagnosis Comments COMPLETE BLOOD COUNT Routine 08/19/2024 9:22 AM EST Heart failure, unspecified (CMS/HCC) Anemia, unspecified Type 2 diabetes mellitus without complications (CMS/HCC) HEMOGLOBIN A1C Routine 08/19/2024 9:22 AM EST Heart failure, unspecified (CMS/HCC) Anemia, unspecified Type 2 diabetes mellitus without complications (CMS/HCC) COMPREHENSIVE METABOLIC PANEL Routine 08/19/2024 9:22 AM EST Heart failure, unspecified (CMS/HCC) Anemia, unspecified Type 2 diabetes mellitus without complications ([facility]/HCC) documented in this encounter Results * Hemoglobin A1c (08/19/2024 9:22 AM EST) Pathologist [facility] Hemoglobin A1C 6.1 <6.5 % LAB CHEMISTRY METHOD 08/19/2024 2:45 PM EST [facility] Mean Bld Glu Estim. 128 mg/dL LAB CHEMISTRY METHOD 08/19/2024 2:45 PM [facility] Blood Venous blood specimen / Unknown Venipuncture / Unknown 08/19/2024 9:22 AM EST 08/19/2024 12:07 PM EST us Gris Rousseau MD LAB BLOOD ORDERABLES Fin al Result [facility] [address] [place] [address], * (ABNORMAL) Comprehensive metabolic panel (08/19/2024 9:22 AM EST) Pathologist [facility] Sodium 135 133 - 145 mmol/L LAB CHEMISTRY METHOD 08/19/2024 5:30 PM [facility] Potassium 4.7 3.5 - 5.5 mmol/L LAB CHEMISTRY METHOD 08/19/2024 5:30 PM [facility] Chloride 101 96 - 110 mmol/L LAB CHEMISTRY METHOD 08/19/2024 5:30 PM [facility] CO2 26 21 - 32 mmol/L LAB CHEMISTRY METHOD 08/19/2024 5:30 PM [facility] Anion Gap 8 3 - 11 LAB CHEMISTRY METHOD 08/19/2024 5:30 PM [facility] Glucose 272(H) 70 - 100 mg/dL LAB CHEMISTRY METHOD 08/19/2024 5:30 PM [facility] BUN 13 5 - 25 mg/dL LAB CHEMISTRY METHOD 08/19/2024 5:30 PM [facility] Creatinine 0.94 0.70 - 1.30 mg/dL LAB CHEMISTRY METHOD 08/19/2024 5:30 PM [facility] eGFR 85 >=60 mL/min/1. 73m2 LAB CHEMISTRY METHOD 08/19/2024 5:30 PM [facility] Comment:Calculation based on the??Chronic Kidney Disease Epidemiology Collaboration (CKD-EPI) equation refit??without adjustment for race. BUN/Creatinine Ratio 13.8 LAB CHEMISTRY METHOD 08/19/2024 5:30 PM [facility] Calcium 9.4 8.5 - 10.5 mg/dL LAB CHEMISTRY METHOD 08/19/2024 5:30 PM [facility] AST (SGOT) 19 10 - 42 unit/L LAB CHEMISTRY METHOD 08/19/2024 5:30 PM [facility] ALT (SGPT) 25 10 - 60 unit/L LAB CHEMISTRY METHOD 08/19/2024 5:30 PM [facility] Alkaline Phosphatase 58 42 - 121 unit/L LAB CHEMISTRY METHOD 08/19/2024 5:30 PM [facility] Total Protein 6.3 6.0 - 8.0 g/dL LAB CHEMISTRY METHOD 08/19/2024 5:30 PM [facility] Albumin 3.4 3.2 - 5.0 g/dL LAB CHEMISTRY METHOD 08/19/2024 5:30 PM [facility] Total Bilirubin 0.4 0.0 - 1.4 mg/dL LAB CHEMISTRY METHOD 08/19/2024 5:30 PM [facility] Blood Venous blood specimen / Unknown Venipuncture / Unknown 08/19/2024 9:22 AM EST 08/19/2024 12:09 PM EST us Gris Rousseau MD LAB BLOOD ORDERABLES Fin al Result [facility] [address] [place] [address], * (ABNORMAL) Complete blood count (08/19/2024 9:22 AM EST) [facility] WBC 6.0 4.8 - 10.8 K/mcL LAB HEMETOLOGY METHOD 08/19/2024 12:53 PM EST [facility] RBC 4.10(L) 4.50 - 5.50 M/mcL LAB HEMETOLOGY METHOD 08/19/2024 12:53 PM EST [facility] Hemoglobin 12.7(L) 13.5 - 17.5 g/dL LAB HEMETOLOGY METHOD 08/19/2024 12:53 PM [facility] Hematocrit 38.2(L) 42.0 - 54.0 % LAB HEMETOLOGY METHOD 08/19/2024 12:53 PM EST [facility] MCV 92.3 79.0 - 98.0 FL LAB HEMETOLOGY METHOD 08/19/2024 12:53 PM EST [facility] MCH 30.7 27.0 - 32.0 pcg LAB HEMETOLOGY METHOD 08/19/2024 12:53 PM EST [facility] MCHC 33.2 32.0 - 37.0 g/dL LAB HEMETOLOGY METHOD 08/19/2024 12:53 PM EST [facility] RDW 12.2 11.0 - 15.0 % LAB HEMETOLOGY METHOD 08/19/2024 12:53 PM EST [facility] Platelets 250 130 - 400 K/mcL LAB HEMETOLOGY METHOD 08/19/2024 12:53 PM [facility] MPV 9.5 7.0 - 11.0 FL LAB HEMETOLOGY METHOD 08/19/2024 12:53 PM EST [facility] NRBC 0.0 <1.0 % LAB HEMETOLOGY METHOD 08/19/2024 12:53 PM EST [facility] NRBC Absolute 0.00 <0.10 K/mcL LAB HEMETOLOGY METHOD 08/19/2024 12:53 PM EST [facility] Blood Venous blood specimen / Unknown Venipuncture / Unknown 08/19/2024 9:22 AM EST 08/19/2024 12:07 PM EST us Gris Rousseau MD LAB BLOOD ORDERABLES Fin al Result [facility]) [facility] [address] [place] [address], documented in this encounter Visit Diagnoses Diagnosis Heart failure, unspecified (CMS/HCC) Heart failure, unspecified Anemia, unspecified Type 2 diabetes mellitus without complications (CMS/HCC) documented in this encounter Additional Health Concerns Infection Onset Date Last Indicated Resolved Time Respiratory Rule-Out 11/08/2024 11/08/2024 025 4:47 PM EST Influenza 11/08/2024 11/08/2024 documented as of this encounter Care Teams Dental Services Director Relationship Specialty Start Date End Date Zay Bhagat MD [address] [place] [address] PCP - General 05/30/23 documented as of this encounter
--- OUTSIDE RECORDS SUMMARY | 2024-11-08 22:12 | XMS_ITS | Encounter Summary ---
Author Organization [facility] Address [address] [place] [address] Care Team Providers Care Quality Systems Technician Name Role Phone Zay Bhagat MD Primary Care Provider Encounter Details Date Type Department Care Team (Late st Contact Info) Description 11/08/2024 Lab Requisition [facility] - Main Lab [address] [facility] [place] [address] Gris Rousseau MD [address] [address] Chronic cough Social History Tobacco Use Types Packs/Day Years [...] Procedure Name Priority Date/Time Associated Diagnosis Comments [id number], RSV, FLU A AND B QUALITATIVE RT-PCR, LOCAL REFERENCE LAB Routine 11/08/2024 12:00 AM EST Chronic cough documented in this encounter Results * (ABNORMAL) [id number], RSV, Influenza A and B qualitative RT-PCR (11/08/2024 12:00 AM EST) SARS COV-2 Not Detected Not Detected LAB MOLECULAR DIAGNOSTICS METHOD 11/08/2024 4:47 PM EST [facility] Comment: Disclaimer: The manner in which this information is used to guide patient care is the responsibility of the healthcare provider. Testing was performed using the [employer] m SARS-CoV-2 test. This test has [...] for Healthcare Providers can be found at: https://www.fda.gov/media/260636/download Fact sheet for Patients can be found at: https://www.fda.gov/media/935360/download Influenza A PCR Detected(A ) Not Detected LAB MOLECULAR DIAGNOSTICS METHOD 11/08/2024 4:[address] [facility] Comment:This patient is posi tive for influenza A. If the patient is admitted, please order the Respiratory Virus Panel PCR ([facility] ID: [id number]) so our lab can subtype the influenza A, per CDC recommendations. Influenza B PCR Not Detected Not Detected LAB MOLECULAR DIAGNOSTICS METHOD 11/08/2024 4:[address] [facility] RSV PCR Not Detected Not Detected LAB MOLECULAR DIAGNOSTICS METHOD 11/08/2024 4:[address] [facility] Swab Nasopharyngeal structure / Unknown Non-blood Collection / Unknown 11/08/2024 11/08/2024 2:14 PM EST us Gris Rousseau MD LAB MICROBIOLOGY - GENER AL ORDERABLES Final Result [facility] [address] [place] [address], documented in this encounter Visit Diagnoses Diagnosis Chronic cough Cough documented in this encounter Additional Health Concerns Infection Onset Date Last Indicated Resolved Time Respiratory Rule-Out 11/08/2024 11/08/2024 025 4:47 PM EST Influenza 11/08/2024 11/08/2024 documented as of this encounter Care Teams Quality Systems Technician Relationship Specialty Start Date End Date Zay Bhagat MD [address] [place] [address] PCP - General 05/30/23 documented as of this encounter
--- OUTSIDE RECORDS SUMMARY | 2024-11-08 22:12 | XMS_ITS | Encounter Summary ---
Author Organization [facility] Address [address] [place] [address] Care Team Providers Care Sample Supervisor Name Role Phone Zay Bhagat MD Primary Care Provider Encounter Details Date Type Department Care Team (Late st Contact Info) Description 09/20/2024 Lab Requisition [facility] - Main Lab 299 [facility] [place] [address] Gris Rousseau MD [address] [address] Essential (primary) hypertension Social History Tobacco Use [...] as of this encounter Visit Diagnoses Diagnosis Essential (primary) hypertension Unspecified essential hypertension documented in this encounter Additional Health Concerns Infection Onset Date Last Indicated Resolved Time Respiratory Rule-Out 11/08/2024 11/08/2024 025 4:47 PM EST Influenza 11/08/2024 11/08/2024 documented as of this encounter Care Teams Sample Supervisor Relationship Specialty Start Date End Date Zay Bhagat MD 4 [place] [address] PCP - General 05/30/23 documented as of this encounter
--- OUTSIDE RECORDS SUMMARY | 2024-11-08 22:12 | XMS_ITS | Patient Health Record ---
Author Organization Dave Guzman MD Address [address] [place], [place] [id number] Care Team Providers Care Mold Yard Worker Name Role Phone Dave Guzman Primary Care Provider Allergies Allergen (clinical drug ingredient) Drug/Non Drug Allergy documented on EMR Reaction Allergy Type Onset Date Status meperidine Demerol palpitations Drug Allergy Act candelario Reason For Referral No Information Medications Medication SIG (Take, Route, Frequency, Duration) Notes Start Date End Date Status hydrOXYzine HCl 10 MG as directed Orally Active Tylenol 325 MG 1 tablet as needed Orally every 4 hrs Not-Taking Folic Acid 800 MCG 1 tablet Orally Once a day for 30 day(s) Active amLODIPine Besylate 10 MG 1 tablet Orall y Once a day for 30 day(s) Active Ketoconazole 2 % 5 ml Externally Active Triamcinolone Acetonide 0.1 % 1 application Externally Two times a Week Active Tamsulosin HCl 0.4 MG 1 capsule Orally O nce a day for 30 day(s) Active Social History Tobacco Use: Social History Observation Description Date Details (start date - stop date) Never Smoker NA - NA Tobacco Use/Smoking Question Answer Notes Patient is a nonsmoker Additional Findings: Tobacco Non-User Cu rrent non-smoker, currently using no form of tobacco Alcohol Screen Question Answer Notes Did you have a drink contain ing alcohol in the past year? Yes How often did you have a dri nk containing alcohol in the past year? 2 to 3 times a week (3 points) How many drinks did you have on a typical day when you were drinking in the past year? 1 or 2 drinks (0 point) Points 3 Interpretation Negative Problems Problem Type SNOMED Code ICD Code Onset Dates Problem Status W/U Status Risk Notes Problem Undescended testicle (803934664) Undescended testicle, unspecified, bilateral (Q53.20) Active confirmed Problem Undescended testicle (429839628) Undescended testicle, unspecified (Q53.9) Active confirmed Problem Pancreatic mass (419199754) Pancreatic mass (K86.9) Active confirmed Problem Subdural hematoma (39463313) Subdural hematoma (S06.5X9A) Active confirmed Plan Of Treatment No Information Insurance Providers Payer Name Payer Address Payer Phone Subscriber Number Group Number Insured Name Patient Relationship to Insured Coverage Start Date Coverage End Date [facility] are [employer] [address] [address] [place] [address] [id number] Gadiel Arevalo Self - patient is the insured
--- OUTSIDE RECORDS SUMMARY | 2024-11-08 22:12 | XMS_ITS | Encounter Summary ---
Author Organization [facility] Address [address] [place] [address] Care Team Providers Care Call Out Operator Name Role Phone Zay Bhagat MD Primary Care Provider Encounter Details Date Type Department Care Team (Late st Contact Info) Description 09/06/2024 Lab Requisition [facility] - Main Lab [address] [place] [address] Gris Rousseau MD [address] [address] Essential (primary) hypertension Social History Tobacco Use [...] Associated Diagnosis Comments COMPLETE BLOOD COUNT Routine 09/09/2024 7:06 AM EST Essential (primary) hypertension COMPREHENSIVE METABOLIC PANEL Routine 09/09/2024 7:06 AM EST Essential (primary) hypertension documented in this encounter Results * (ABNORMAL) Comprehensive metabolic panel (09/09/2024 7:06 AM EST) Sodium 132(L) 133 - 145 mmol/L LAB CHEMISTRY METHOD 09/09/2024 12:37 PM EST [facility] Potassium 4.2 3.5 - 5.5 mmol/L LAB CHEMISTRY METHOD 09/09/2024 12:37 PM [facility] Chloride 100 96 - 110 mmol/L LAB CHEMISTRY METHOD 09/09/2024 12:37 PM [facility] CO2 29 21 - 32 mmol/L LAB CHEMISTRY METHOD 09/09/2024 12:37 PM [facility] Anion Gap 3 3 - 11 LAB CHEMISTRY METHOD 09/09/2024 12:37 PM [facility] Glucose 59(L) 70 - 100 mg/dL LAB CHEMISTRY METHOD 09/09/2024 12:37 PM [facility] BUN 14 5 - 25 mg/dL LAB CHEMISTRY METHOD 09/09/2024 12:37 PM [facility] Creatinine 0.84 0.70 - 1.30 mg/dL LAB CHEMISTRY METHOD 09/09/2024 12:37 PM [facility] eGFR 91 >=60 mL/min/1. 73m2 LAB CHEMISTRY METHOD 09/09/2024 12:37 PM [facility] Comment:Calculation based on the??Chronic Kidney Disease Epidemiology Collaboration (CKD-EPI) equation refit??without adjustment for race. BUN/Creatinine Ratio 16.7 LAB CHEMISTRY METHOD 09/09/2024 12:37 PM [facility] Calcium 9.3 8.5 - 10.5 mg/dL LAB CHEMISTRY METHOD 09/09/2024 12:37 PM [facility] AST (SGOT) 9(L) 10 - 42 unit/L LAB CHEMISTRY METHOD 09/09/2024 12:37 PM [facility] ALT (SGPT) 15 10 - 60 unit/L LAB CHEMISTRY METHOD 09/09/2024 12:37 PM [facility] Alkaline Phosphatase 60 42 - 121 unit/L LAB CHEMISTRY METHOD 09/09/2024 12:37 PM [facility] Total Protein 6.4 6.0 - 8.0 g/dL LAB CHEMISTRY METHOD 09/09/2024 12:37 PM [facility] Albumin 3.2 3.2 - 5.0 g/dL LAB CHEMISTRY METHOD 09/09/2024 12:37 PM [facility] Total Bilirubin 0.5 0.0 - 1.4 mg/dL LAB CHEMISTRY METHOD 09/09/2024 12:37 PM [facility] Blood Venous blood specimen / Unknown Venipuncture / Unknown 09/09/2024 7:06 AM EST 09/09/2024 10:55 AM EST us Gris Rousseau MD LAB BLOOD ORDERABLES Fin al Result [facility] [address] [place] [address], * (ABNORMAL) Complete blood count (09/09/2024 7:06 AM EST) WBC 13.9(H) 4.8 - 10.8 K/mcL LAB HEMETOLOGY METHOD 09/09/2024 11:42 AM [facility] RBC 4.20(L) 4.50 - 5.50 M/mcL LAB HEMETOLOGY METHOD 09/09/2024 11:42 AM [facility] Hemoglobin 12.9(L) 13.5 - 17.5 g/dL LAB HEMETOLOGY METHOD 09/09/2024 11:42 AM [facility] Hematocrit 38.4(L) 42.0 - 54.0 % LAB HEMETOLOGY METHOD 09/09/2024 11:42 AM [facility] MCV 92.3 79.0 - 98.0 FL LAB HEMETOLOGY METHOD 09/09/2024 11:42 AM [facility] MCH 31.0 27.0 - 32.0 pcg LAB HEMETOLOGY METHOD 09/09/2024 11:42 AM EST [facility] MCHC 33.6 32.0 - 37.0 g/dL LAB HEMETOLOGY METHOD 09/09/2024 11:42 AM [facility] RDW 12.9 11.0 - 15.0 % LAB HEMETOLOGY METHOD 09/09/2024 11:42 AM [facility] Platelets 206 130 - 400 K/mcL LAB HEMETOLOGY METHOD 09/09/2024 11:42 AM [facility] MPV 9.8 7.0 - 11.0 FL LAB HEMETOLOGY METHOD 09/09/2024 11:42 AM [facility] NRBC 0.0 <1.0 % LAB HEMETOLOGY METHOD 09/09/2024 11:42 AM [facility] NRBC Absolute 0.00 <0.10 K/mcL LAB HEMETOLOGY METHOD 09/09/2024 11:42 AM [facility] Blood Venous blood specimen / Unknown Venipuncture / Unknown 09/09/2024 7:06 AM EST 09/09/2024 10:55 AM EST us Gris Rousseau MD LAB BLOOD ORDERABLES Fin al Result [facility] [address] [place] [address], documented in this encounter Visit Diagnoses Diagnosis Essential (primary) hypertension Unspecified essential hypertension documented in this encounter Additional Health Concerns Infection Onset Date Last Indicated Resolved Time Respiratory Rule-Out 11/08/2024 11/08/2024 025 4:47 PM EST Influenza 11/08/2024 11/08/2024 documented as of this encounter Care Teams Call Out Operator Relationship Specialty Start Date End Date Zay Bhagat MD [address] [place] [address] PCP - General 05/30/23 documented as of this encounter
[2024-11-08] MEDS: cefTRIAXone sodium 1 GM VIAL IVPUSH (22:13)
[2024-11-08 22:22] LABS: Basophils Absolute Auto 0.1 X10*3/uL (0.0-0.2); Basophils Percent Auto 0.3 % (0-2); Hematocrit 37.4 % (42.0-52.0); Hemoglobin 12.7 g/dl (14.0-18.0); Imm Gran Abs Auto 0.07 X10*3/uL (0.00-0.03); Imm Gran Pct Auto 0.4 % (0.0-0.4); Lymphocytes Absolute Auto 1.8 X10*3/uL (1.2-4.9); Lymphocytes Percent Auto 10.7 % (20-40); MANUAL DIFF FLAG SCAN; Mean Corpuscular Hemoglobin 29.7 pg (27.0-33.0); Mean Corpuscular Volume 87.6 fL (80.0-98.0); Monocytes Absolute Auto 2.2 X10*3/uL (0.1-1.2); Monocytes Percent Auto 13.2 % (2-11); Neutrophils Absolute Auto 12.6 x10*3/uL (2.0-8.3); Neutrophils Percent Auto 75.4 % (45-73); Platelet Count 272 X10*3/uL (160-400); Red Blood Count 4.27 X10*6/uL (4.60-5.80); Red Cell Distribution Width 14.8 % (11.0-16.0); SCAN SMEAR FLAG 1; White Blood Count 16.6 X10*3/uL (4.8-10.8)
[2024-11-08 22:36] LABS: Alanine Aminotransferase 12 U/L (0-40); Albumin Level 3.8 g/dL (3.5-5.0); Alkaline Phosphatase 72 U/L (39-117); Anion Gap 16 (12-20); Aspartate Amino Transferase 27 U/L (5-37); Bilirubin Total 0.3 mg/dL (0.0-1.0); Blood Urea Nitrogen 35 mg/dL (9-16); Calcium 9.4 mg/dL (8.4-10.2); Carbon Dioxide 23 mmol/L (22-29); Chloride 106 mmol/L (96-108); Estimated Glomerular Filt Rate 43; Glucose Random 149 mg/dL (60-115); Magnesium 2.1 mg/dL (1.6-2.6); Potassium 4.3 mmol/L (3.3-5.1); Sodium 141 mmol/L (135-145)
--- NOTE | 2024-11-08 22:40 | MHC.EDTECH ---
Continuos rectal probe placed, pt tolerated well,
[2024-11-08 22:44] LABS: SLIDE REVIEW VERIFIED
[2024-11-08 22:58] LABS: Influenza A PCR POSITIVE (Negative); Influenza B PCR NEGATIVE (Negative); Resp Syncy Virus RNA Qual PCR NEGATIVE (Negative); SARS COV2 PCR INHOUSE NEGATIVE (Negative)
--- NOTE | 2024-11-08 23:20 | MHC.EDTECH ---
Patient's BP is low 79/45,rectal temp 100.6, RN and provider aware at bedside
[2024-11-08] MEDS: Lactated Ringers 1,000 ML 999 ML IV (23:21)
[2024-11-08 23:23] LABS: Appearance Urine Clear; Color Urine Yellow; Glucose Urine UA Negative (Negative); Leukocyte Esterase Urine Large (3+) (Negative); Nitrite Urine Negative (Negative); PH 5.5 (5.0-9.0); UMIC TRIGGER UACC YES; Urine Blood Large (3+) (Negative); Urine Ketones Negative (Negative); Urine Protein Trace mg/dL (Neg-Trace)
[2024-11-08 23:25] LABS: Bacteria Urine None Seen (None Seen); RBC Urine >20 /HPF (0-2); UACC Culture Trigger YES; WBC Urine >50 /HPF (0-5)
[2024-11-08 23:55] LABS: Glucose, Whole Blood 50 mg/dL (60-115)
[2024-11-09] VITALS (34 sets, daily range): BP systolic 76–137; BP diastolic 45–98; PULSE 53–122; RESP 15–20; TEMP 36.6–40.5; O2SAT 87–99
[2024-11-09] MEDS: Dextrose 50 % 25 GM/50 ML SYRINGE IVPUSH ×2 (00:04→05:04)
--- NOTE | 2024-11-09 00:07 | MHC.EDTECH ---
At 2353 POC taken and is 50, SUE Drake and provider aware,
--- NOTE | 2024-11-09 00:11 | PC.NURSE ---
Took report from off-going RN. Pt is a 74 y/o male who presented to the ED via EMS from [facility] for evaluation. Currently being treated for UTI, received ceftriaxone and amoxicillin. Per triage note, pt has been hypoglycemic most of the day and was given IM glucagon and glucose paste prior to EMS being called. GCS was 9 on EMS contact, which is far from baseline per handoff report. Reached out to sending facility for additional information, at baseline pt feeds himself and is alert/oriented to self and place. Has chronic indwelling burgos and history of frequent UTIs. Last night had visible blood in urine and was found to be increasingly confused. Was hypoglycemic this morning at PVR (54) and was given juice, returned to 60s. [place] was irrigated. Pt is on a sliding scale insulin, but did not received any today. Glipizide was taken this afternoon. Had only a couple bites of dinner around 1800 hours. At 2000 hours was found to be incontinent of stool, increasingly lethargic and only responsive to painful stimuli. Sugar was found to be in the 40s and PVR gave IM glucagon and glucose paste prior to EMS transport. Pt remains unresponsive to stimuli and VS have improved after medication administration.
[2024-11-09 00:20] LABS: Reflex Lactate? Lactic Acid Added
--- NOTE | 2024-11-09 00:29 | MHC.EDTECH ---
Repeat lactic drawn and sent to lab
[2024-11-09 00:52] LABS: ~Lactic Acid-LAB USE ONLY 2.8 mmol/L (0.5-2.0)
--- NOTE | 2024-11-09 01:02 | PC.NURSE ---
Repeat POC: 118
[2024-11-09 01:04] LABS: Glucose, Whole Blood 118 mg/dL (60-115)
[2024-11-09 02:32] LABS: Reflex Lactate? 2 Y
[2024-11-09 03:14] LABS: ~Lactic Acid-LAB USE ONLY 2.9 mmol/L (0.5-2.0)
--- NOTE | 2024-11-09 03:59 | PM.IMHP ---
History of Present Illness Date of Service: 11/09/24 Attending physician on admission: Robert Barboza Chief Complaint: Lethargy since earlier today This is a 74-year-old white male with medical history of cognitive impairment, HFpEF 55-60%, hypertension, insulin-dependent diabetes mellitus, history of hemorrhagic CVA with subsequent gait instability, remote history of alcohol abuse, and BPH with the urinary retention now with a chronic indwelling Gross catheter and currently on treatment for urinary tract infection (with oral Amoxil and IV Ceftriaxone) who is brought to the emergency room from rehab facility where he currently resides for evaluation of altered mental status with concerns for sepsis. Per EMS, he was more lethargic throughout the day today and was noted to have a labile blood sugars throughout the day. He has so far received 2 doses of IV ceftriaxone with the last 1 being shortly before being brought in. When EMS arrived at scene, his blood sugar was 49 and so they administered 1 mg of glucagon and oral glucose past. He has on insulin which he did not receive today but did receive his glipizide. They also found him hypotensive and febrile. In our emergency department, he had a documented temperature of a 101.3? F. initial investigations done were notable for a positive influenza a PCR test, leukocytosis of 16.6, elevated lactic acid at 3.0, mild renal insufficiency with a BUN of 35 and a creatinine 1.58, and urinalysis showing partially treated UTI with 3+ leukocyte esterase, > 50 WBC/HPF and no bacteria. He received a 2.58 L of lactated Ringer solution and 1 g of IV ceftriaxone. Unfortunately his blood sugars continued to drop and so he was started on D5 NS continuous infusion. When I go to see him he was still altered and not able to provide much history. Admission was requested for further treatment of severe sepsis due to UTI and influenza A. Review of Systems Review of Systems: Yes Unobtainable due to mental condition PMFSH Medical History BPH loc w urin obs/LUTS Severe recurrent major depressive disorder with psychosis CHF (congestive heart failure) Hemorrhagic stroke Cholelithiasis Alcohol use disorder HTN (hypertension) Surgical History No pertinent past surgical history Social History Household Members: None Housing: [facility] Do you presently have visiting nurse or other home services: No Alcohol intake: current Alcohol intake frequency: 0-2 drinks per day Alcohol type: hard liquor Comment: pt continues refusing bed alarm; chair alarm on pt in bed Patient Tobacco Use Status: Former Tobacco user Second Hand Smoke Exposure: No Advance Directives Date on File: 04/12/23 service: No Current occupational status: disabled Meds Allergies Allergy/AdvReac Type Severity Reaction Status Date / Time meperidine [From DEMEROL] Allergy Unknown UNKNOWN Verified 11/08/24 21:36 Home Medications ?Medication ?Instructions ?Recorded ?Confirmed ?Last Taken ?Type amlodipine 5 mg tablet 5 mg PO DAILY 08/14/24 10/23/24 08/13/24 History atorvastatin 40 mg tablet 40 mg PO BEDTIME 08/14/24 10/23/24 08/13/24 History clopidogrel 75 mg tablet 75 mg PO DAILY 08/14/24 10/23/24 08/13/24 History insulin degludec 100 unit/mL (3 18 unit subcut DAILY 08/14/24 10/23/24 08/13/24 History mL) subcutaneous pen (Tresiba FlexTouch U-100 insulin) metformin 1,000 mg tablet 1,000 mg PO BID 08/14/24 10/23/24 08/13/24 History metoprolol succinate 50 mg 50 mg PO DAILY 08/14/24 10/23/24 08/13/24 History tablet,extended release 24 hr mirtazapine 15 mg tablet 15 mg PO BEDTIME 08/14/24 10/23/24 08/13/24 History risperidone 2 mg tablet 2 mg PO BEDTIME 08/14/24 10/23/24 08/13/24 History tamsulosin 0.4 mg capsule 0.4 mg PO DAILY 08/14/24 10/23/24 08/13/24 History trazodone 100 mg tablet 100 mg PO BEDTIME 08/14/24 10/23/24 08/13/24 History acetaminophen 325 mg tablet 650 mg PO Q6H PRN Fever Or Pain 09/24/24 10/23/24 Unknown History bisacodyl 10 mg rectal suppository 10 mg DE DAILY PRN if no BM for 8 09/24/24 10/23/24 Unknown History hours after MOM insulin lispro 100 unit/mL 1 sliding scale dose subcut 09/24/24 10/23/24 Unknown History subcutaneous solution (Humalog USEASDIRECTD U-100 Insulin) acetaminophen 325 mg tablet 650 mg PO TID 10/23/24 10/23/24 Unknown History magnesium oxide 400 mg (241.3 mg 400 mg PO BID 10/23/24 10/23/24 Unknown History magnesium) tablet risperidone 0.5 mg tablet 0.5 mg PO DAILY@0910/23/24 10/23/24 Unknown History risperidone 1 mg tablet 1 mg PO DAILY@0910/23/24 10/23/24 Unknown History sodium chloride 1,000 mg soluble 1,000 mg PO BID 10/23/24 10/23/24 Unknown History tablet Physical Exam Vital Signs and Narrative: Vital Signs: Last Vital Signs Temp 99.5 F 11/09/24 02:00 Pulse 65 11/09/24 02:00 Resp 19 11/09/24 02:00 BP 114/85 11/09/24 02:00 Pulse Ox 96 11/09/24 02:00 O2 Del Method Room Air 11/09/24 02:00 BMI result Body Mass Index 26.4 General: Asleep but arousable. However not verbally communicative. In no obvious distress. Eyes: No pallor or jaundice. PERRLA, EOMI HENT: Dry oral mucus membranes. No oropharyngeal lesions. Neck: Supple. No cervical adenopathy. No JVD Cardiovascular: Regular rate and rhythm. Normal heart sounds. No murmurs, rubs or gallops. No JVD. No peripheral edema. Respiratory: Normal respiratory effort with no accessory muscle use. CTAB. Gastrointestinal: Abdomen is soft, non-tender, non-distended. Normoactive bowel sounds in all quadrants. No hepatosplenomegaly Genitourinary: Gross catheter in place Extremities: No edema. No calf tenderness. Good peripheral pulses Skin: Warm/Dry. No rashes. No mottling. Capillary refill is < 2 seconds Neurological: Sleeping but awakens to stimulation. Unable to follow basic instructions. Withdraws to pain. Neuro exam not completed at this time. Hematologic: No bleeding. No ecchymosis. No swollen or tender lymph nodes. Psychiatric: Not assessed as he is very sleepy though arousable Results Labs 11/08/24 22:12 11/08/24 22:12 Labs: Laboratory Results - last 24 hr 11/08/24 11/08/24 11/08/24 21:21 22:11 22:12 MCV 87.6 MCH 29.7 MCHC 34.0 RDW 14.8 Plt Count 272 D MPV 9.0 L Immature Gran % (Auto) 0.4 Neut % (Auto) 75.4 H Lymph % (Auto) 10.7 L [place] % (Auto) 13.2 H Eos % (Auto) 0.0 Baso % (Auto) 0.3 Lymph # (Auto) 1.8 [place] # (Auto) 2.2 H Eos # (Auto) 0.0 Baso # (Auto) 0.1 Abs Immat Gran (auto) 0.07 H Absolute Neuts (auto) 12.6 H Absolute Nucleated RBC 0.000 Nucleated RBC % (auto) 0.0 Smear Tech's Comments VERIFIED Anion Gap 16 Estim Creat Clear Calc 43.0 Estimated GFR 43 POC Glucose 169 H Random Glucose 149 H Lactic Acid 3.0 H* Lactic Acid F/U @ 2Hr Lactic Acid F/U @ 4Hr Calcium 9.4 D Magnesium 2.1 Total Bilirubin 0.3 AST 27 ALT 12 Alkaline Phosphatase 72 Total Protein 8.0 Albumin 3.8 Urine Color Urine Appearance Urine pH Ur Specific [place] Urine Protein Urine Glucose (UA) Urine Ketones Urine Blood Urine Nitrite Ur Leukocyte Esterase Urine RBC Urine WBC Ur Squamous Epith Cells Urine Bacteria Hyaline Casts Influenza Type A (PCR) POSITIVE A Influenza Type B (PCR) NEGATIVE RSV RNA Qual (PCR) NEGATIVE SARS-CoV-2 RNA (RT-PCR) NEGATIVE 11/08/24 11/08/24 11/09/24 23:01 23:51 00:29 MCV MCH MCHC RDW Plt Count MPV Immature Gran % (Auto) Neut % (Auto) Lymph % (Auto) [place] % (Auto) Eos % (Auto) Baso % (Auto) Lymph # (Auto) [place] # (Auto) Eos # (Auto) Baso # (Auto) Abs Immat Gran (auto) Absolute Neuts (auto) Absolute Nucleated RBC Nucleated RBC % (auto) Smear Tech's Comments Anion Gap Estim Creat Clear Calc Estimated GFR POC Glucose 50 L* Random Glucose Lactic Acid Lactic Acid F/U @ 2Hr 2.8 H* Lactic Acid F/U @ 4Hr Calcium Magnesium Total Bilirubin AST ALT Alkaline Phosphatase Total Protein Albumin Urine Color Yellow Urine Appearance Clear Urine pH 5.5 Ur Specific [place] 1.010 Urine Protein Trace Urine Glucose (UA) Negative Urine Ketones Negative Urine Blood Large (3+) H Urine Nitrite Negative Ur Leukocyte Esterase Large (3+) H Urine RBC >20 H Urine WBC >50 H Ur Squamous Epith Cells 6-10 Urine Bacteria None Seen Hyaline Casts 3-5 Influenza Type A (PCR) Influenza Type B (PCR) RSV RNA Qual (PCR) SARS-CoV-2 RNA (RT-PCR) 11/09/24 11/09/24 01:00 02:45 MCV MCH MCHC RDW Plt Count MPV Immature Gran % (Auto) Neut % (Auto) Lymph % (Auto) [place] % (Auto) Eos % (Auto) Baso % (Auto) Lymph # (Auto) [place] # (Auto) Eos # (Auto) Baso # (Auto) Abs Immat Gran (auto) Absolute Neuts (auto) Absolute Nucleated RBC Nucleated RBC % (auto) Smear Tech's Comments Anion Gap Estim Creat Clear Calc Estimated GFR POC Glucose 118 H Random Glucose Lactic Acid Lactic Acid F/U @ 2Hr Lactic Acid F/U @ 4Hr 2.9 H* Calcium Magnesium Total Bilirubin AST ALT Alkaline Phosphatase Total Protein Albumin Urine Color Urine Appearance Urine pH Ur Specific [place] Urine Protein Urine Glucose (UA) Urine Ketones Urine Blood Urine Nitrite Ur Leukocyte Esterase Urine RBC Urine WBC Ur Squamous Epith Cells Urine Bacteria Hyaline Casts Influenza Type A (PCR) Influenza Type B (PCR) RSV RNA Qual (PCR) SARS-CoV-2 RNA (RT-PCR) Imaging Radiologist's Impressions: Chest x-ray Low lung volumes with pulmonary vascular prominence. Assessment and Plan (1) Severe sepsis: Status: Acute (2) Toxic metabolic encephalopathy: Status: Acute (3) Urinary tract infection: Status: Acute (4) Hypoglycemia associated with type 2 diabetes mellitus: Status: Acute (5) Influenza A: Status: Acute (6) Acute kidney injury: Status: Acute Plan 74-year-old white male with medical history of cognitive impairment, HFpEF 55-60%, hypertension, insulin-dependent diabetes mellitus, history of hemorrhagic CVA with subsequent gait instability, remote history of alcohol abuse, and BPH with the urinary retention now with a chronic indwelling Gross catheter and currently on treatment for urinary tract infection here with: # severe sepsis -secondary to UTI and influenza a -he meets criteria for severe sepsis with a fever 101.3? F leukocytosis (16.6 K), lactic acidosis (3.0) in the setting of influenza a infection and a UTI -admit and continue the IV antibiotics (ceftriaxone) -start on Tamiflu # toxic metabolic encephalopathy -noted to be lethargic throughout most of the day -found to be both hypotensive and hypoglycemic with a blood sugar as low as 49 -he is very sleepy but awakens to stimuli -start on a dextrose infusion # urinary tract infection -previous urine cultures grew Proteus mirabilis that was sensitive to ceftriaxone, ciprofloxacin, gentamicin and Bactrim -she also grew Enterococcus faecalis sensitive to ampicillin and vancomycin -we will switch antibiotics to Unasyn -continue to closely follow # Hypoglycemia - sulfonylurea induced -start on dextrose infusion -closely monitor blood sugars # influenza A infection - start Tamiflu renally dosed # acute renal failure -serum creatinine is up to 1.58 from a baseline around 0.65 -likely dehydrated due to poor oral intake -we will hydrate and reassess DVT: SC Lovenox CODE STATUS: Full code Admission for at least 2 midnights for management of severe sepsis This note is constructed using voice recognition software. While every effort has been made to ensure accuracy, saddle stitcher errors may have been included. Total time managing care of this patient today: 75 minutes. Quality Stroke Does the patient have a stroke diagnosis?: No VTE Prior VTE?: No VTE Risk Level:: Medical - moderate - high VTE Device Contraindication: N/A - Device Ordered VTE Drug Contraindication: N/A - Med Ordered
[2024-11-09 04:54] LABS: Glucose, Whole Blood 44 mg/dL (60-115)
[2024-11-09] MEDS: Dextrose 5 % and 0.9 % NaCl 1,000 ML 125 ML IVCONT ×3 (05:06→21:49)
[2024-11-09 05:33] LABS: Glucose, Whole Blood 135 mg/dL (60-115)
--- NOTE | 2024-11-09 05:38 | MHC.EDTECH ---
POC taken and is 135,emptied 1700MLS from Gross,(yellow in color), Temp is elevated 101.8 RN aware
[2024-11-09] MEDS: Acetaminophen Supp 650 MG SUPP.RECT PR ×3 (05:44→23:49)
--- NOTE | 2024-11-09 06:41 | PC.NURSE ---
Pt is difficulty to arouse and not able to follow commands to evaluate swallow ability. Holding PO meds and provider made aware.
[2024-11-09 06:58] LABS: Glucose, Whole Blood 147 mg/dL (60-115)
[2024-11-09 07:19] LABS: Creatinine Clr Calc Pharmacy 49.2; Estimated Glomerular Filt Rate 50
[2024-11-09] MEDS: vancomycin/NS 2,000 MG/500 ML PLAST..BAG 250 MG IV (07:19)
[2024-11-09] MEDS: Ketorolac Tromethamine 15 MG/ML VIAL IVPUSH ×2 (07:27→14:23)
[2024-11-09] MEDS: 0.9 % Sodium Chloride Flush 3 ML SYRINGE IVFLUSH (07:28)
--- NOTE | 2024-11-09 08:04 | PC.NURSE ---
TEMP NOTED TO BE IMPROVING AFTER TORADOL ADMINISTRATION. BP NOW HYPOTENSIVE, PROVIDER ALERTED. DUE TO PTS MENTAL STATUS AND INABILITY TO FOLLOW COMMANDS, SWALLOW SCREEN FAILED AND PO MEDS HELD
[2024-11-09] MEDS: Enoxaparin Sodium 40 MG/0.4 ML SYRINGE SUBCUT (08:12)
[2024-11-09] MEDS: 0.9 % Sodium Chloride 1,000 ML 999 ML IV (08:13)
[2024-11-09] MEDS: Albumin Human 25 % 100 ML 133.33 ML IV ×2 (08:19→09:09)
--- NOTE | 2024-11-09 08:33 | PHA.PROG ---
Admission Date/Time: November 09, 2024 04:59 Indication: sepsis Weight in k kg Adjusted body weight in K kg [place] body weight in K.3 Obesity Dosing Indication % IBW: Serum Creatinine - Last 168 Hours 11/08/24 11/09/24 22:12 06:59 Creatinine 1.58 H 1.38 Estimated CrCl and GFR - Last 168 Hours 11/08/24 11/09/24 22:12 06:59 Estim Creat Clear Calc 43.0 49.2 Estimated GFR 43 50 Vancomycin Loading Dose: 2000 mg Current Vancomycin Dosing Regimen: 1250 mg q24h Vancomycin Monitoring using AUC goal of 400 - 600 range with trough as surrogate marker: predicted AUC 505 Date and Time for next Vancomycin Level to be drawn: random 11/11/24 @0600 Pharmacist Comments on Vancomycin Plan: continue to monitor scr Vancomycin dosing will take advantage of [employer] as a clinical decision support tool that uses Bayesian modeling to calculate individual patient's pharmacokinetic parameters and forecast the patient's drug concentration time course with the target goal AUC 24 range of 400 - 600 mg/L/hr.
[2024-11-09 08:36] LABS: Glucose, Whole Blood 120 mg/dL (60-115)
[2024-11-09 09:23] LABS: Lactic Acid 1.9 mmol/L (0.5-2.0)
--- NOTE | 2024-11-09 10:17 | PC.NURSE ---
Pt continues to sleep. Vitals more stable. Pt had desats intermittently to 80s, placed on 2L O2 NC with improvements. Breathing even and unlabored, does have intermittent coughing. Sinus juni on monitor.
--- NOTE | 2024-11-09 10:31 | PHA.MEDREC ---
Pharmacy Consult ? Medication Reconciliation Pharmacy has completed the medication reconciliation. Med list from [facility].
[2024-11-09 11:25] LABS: Glucose, Whole Blood 96 mg/dL (60-115)
--- NOTE | 2024-11-09 11:44 | PM.EVENT ---
Event Note Date of Service: 11/09/24 Event Note: seen and evaluated still altered, barely response to verbal stimuli continue Tamiflu Continue IV Antibiotics IV fluids LA corrected Time Spent With Patient Time: Total time managing care of this patient today ____ minutes.
--- NOTE | 2024-11-09 12:37 | MHC.CM.PN ---
IMM 11/09/24, discussed with pt.'s brother, Holland. Pt. resides at [facility], and his DCP is to return there via BLS. His brother, Holland requests that we call him to let him know when pt. is going back to SNF. CM to follow and assist with DC plan.
--- NOTE | 2024-11-09 13:34 | PC.NURSE ---
Provider aware of increasing temp
--- NOTE | 2024-11-09 14:36 | PC.NURSE ---
Temp continuing to climb, provider aware. Pt medicated per MAR and placed on cooling blanket. Pt placed in hospital bed.
[2024-11-09 14:41] LABS: Glucose, Whole Blood 122 mg/dL (60-115)
[2024-11-09] MEDS: Acetaminophen 1,000 MG/100 ML PIGGYBACK 400 MG IV (15:07)
--- NOTE | 2024-11-09 15:10 | PC.NURSE ---
Provider at bedside, cooling measures are continuing in placed. Ice packs applied to groin and armpits. IV tylenol infusing
--- NOTE | 2024-11-09 15:26 | PC.NURSE ---
Pt having improvements in temp slowly.
--- NOTE | 2024-11-09 15:28 | PM.EVENT ---
Event Note Date of Service: 11/09/24 Event Note: Called by RN to evaluate patient for high-grade fever up to 106 Patient denies headache, no pain On examination patient awake alert asking for water complaining of dry lips and mouth Speech clear Abdomen benign Extremities no edema Neuro awake alert moving all 4 extremities Admitted with severe sepsis secondary to UTI and influenza a Clinically stable Tylenol IV as needed for fever Will resume diet Reviewed recent blood cultures has history of bacteremia with Proteus and Enterococcus faecalis Continue IV vancomycin and increase dose of ceftriaxone to 2 g Time Spent With Patient Time: Total time managing care of this patient today ____ minutes.
[2024-11-09 16:12] LABS: Glucose, Whole Blood 161 mg/dL (60-115)
--- NOTE | 2024-11-09 16:59 | PC.NURSE ---
Temp has improved to normal. pt sleeping, resting quietly. Breathing even and unlabored. VSS
[2024-11-09 17:00] LABS: TSH reflex Free T4 0.99 uIU/mL (0.32-4.0)
--- NOTE | 2024-11-09 18:06 | PC.NURSE ---
Provider aware of low BPs
[2024-11-09 18:49] LABS: Glucose, Whole Blood 180 mg/dL (60-115)
[2024-11-09 21:13] LABS: Glucose, Whole Blood 201 mg/dL (60-115)
[2024-11-09] MEDS: Oseltamivir Phosphate 30 MG CAPSULE PO (23:49)
[2024-11-09] MEDS: cefTRIAXone sodium 2 GM VIAL IVPUSH (23:49)
[2024-11-10] VITALS (8 sets, daily range): BP systolic 86–132; BP diastolic 57–80; PULSE 68–92; RESP 16–20; TEMP 36.5–38.6; O2SAT 92–99; BMI 26.3
[2024-11-10 00:08] LABS: Glucose, Whole Blood 164 mg/dL (60-115)
[2024-11-10 05:59] LABS: Glucose, Whole Blood 153 mg/dL (60-115)
[2024-11-10 07:09] LABS: MANUAL DIFF FLAG NO
[2024-11-10] MEDS: Dextrose 5 % and 0.9 % NaCl 1,000 ML 125 ML IVCONT (07:15)
[2024-11-10 07:22] LABS: Basophils Percent Auto 0.3 % (0-2); Eosinophils Absolute Auto 0.1 X10*3/uL (0.0-0.4); Eosinophils Percent Auto 0.9 % (0-4); Hematocrit 32.8 % (42.0-52.0); Hemoglobin 10.9 g/dl (14.0-18.0); Imm Gran Abs Auto 0.02 X10*3/uL (0.00-0.03); Imm Gran Pct Auto 0.3 % (0.0-0.4); Lymphocytes Absolute Auto 1.6 X10*3/uL (1.2-4.9); Lymphocytes Percent Auto 25.1 % (20-40); Mean Corpuscular HGB Conc 33.2 g/dl (31.0-36.0); Mean Corpuscular Hemoglobin 29.1 pg (27.0-33.0); Mean Corpuscular Volume 87.7 fL (80.0-98.0); Mean Platelet Volume 9.2 fL (9.4-12.4); Monocytes Absolute Auto 0.7 X10*3/uL (0.1-1.2); Monocytes Percent Auto 10.7 % (2-11); Neutrophils Absolute Auto 4.1 x10*3/uL (2.0-8.3); Neutrophils Percent Auto 62.7 % (45-73); Platelet Count 221 X10*3/uL (160-400); Red Blood Count 3.74 X10*6/uL (4.60-5.80); Red Cell Distribution Width 14.6 % (11.0-16.0); White Blood Count 6.5 X10*3/uL (4.8-10.8)
[2024-11-10 07:48] LABS: Alkaline Phosphatase 54 U/L (39-117)
[2024-11-10] MEDS: 0.9 % Sodium Chloride Flush 3 ML SYRINGE IVFLUSH ×3 (07:51→19:51)
[2024-11-10] MEDS: Enoxaparin Sodium 40 MG/0.4 ML SYRINGE SUBCUT (07:52)
[2024-11-10] MEDS: Oseltamivir Phosphate 30 MG CAPSULE PO ×2 (07:52→19:47)
[2024-11-10] MEDS: vancomycin HCL 1,250 MG in 0.9 % Sodium Chloride 250 ML 166.67 MG IV (07:52)
[2024-11-10 07:58] LABS: Glucose, Whole Blood 128 mg/dL (60-115)
[2024-11-10 08:05] LABS: Alanine Aminotransferase 8 U/L (0-40); Albumin Level 3.3 g/dL (3.5-5.0); Anion Gap 14 (12-20); Aspartate Amino Transferase 37 U/L (5-37); Bilirubin Total 0.2 mg/dL (0.0-1.0); Blood Urea Nitrogen 23 mg/dL (9-16); Calcium 8.5 mg/dL (8.4-10.2); Carbon Dioxide 27 mmol/L (22-29); Chloride 106 mmol/L (96-108); Creatinine Clr Calc Pharmacy 71.5; Estimated Glomerular Filt Rate > 60; Glucose Random 156 mg/dL (60-115); Magnesium 1.4 mg/dL (1.6-2.6); Potassium 3.2 mmol/L (3.3-5.1); Sodium 144 mmol/L (135-145); Total Protein 6.6 g/dL (6.5-8.0)
[2024-11-10] MEDS: Magnesium Sulfate/H2O 2 GM/50 ML PIGGYBACK IV (09:39)
[2024-11-10] MEDS: Acetaminophen 325 MG TABLET 650 MG PO ×2 (09:58→15:34)
[2024-11-10 11:12] LABS: Glucose, Whole Blood 212 mg/dL (60-115)
[2024-11-10] MEDS: Insulin Lispro 100 UNIT/ML 3 ML VIAL SUBCUT ×2 (11:16→15:34)
--- NOTE | 2024-11-10 14:56 | P.PNIM_ITS ---
Subjective Subjective Date of Service: 11/10/24 Interval History: seen and evaluated this morning more alert and interactive tolerating PO no fever or dyspnea no other overnight events Review of Systems Review of Systems: Yes all other systems are reviewed and are negative Physical Exam 2 Vital Signs: Vital Signs: Last Vital Signs Temp 97.7 F 11/10/24 11:01 Pulse 75 11/10/24 11:01 Resp 16 11/10/24 11:01 BP 100/58 L 11/10/24 11:01 Pulse Ox 93 11/10/24 12:53 O2 Del Method Room Air 11/10/24 12:53 O2 Flow Rate 1 11/10/24 08:00 BMI result Body Mass Index 26.3 Const: Other: Constitutional : interactive, not in distress Cardiovascular : no JVP, no lower extremity edema Respiratory : bilateral chest movement, not in resp distress Gastrointestinal: soft, lax, Non tender Skin : Warm, Dry Neurological : Alert & oriented to self, No focal deficit Objective Data Active Medications Acetaminophen (Acetaminophen Supp 650 Mg Supp.Rect) 650 mg NV Q4H PRN PRN Reason: Pain, Mild 1-3,fever,headache Last Admin: 11/09/24 23:49 Dose: 650 mg Acetaminophen (Acetaminophen 325 Mg Tablet) 650 mg PO QSHIFT [facility] Last Admin: 11/10/24 09:58 Dose: 650 mg Documented By: KIRIT Calcium Carbonate (Calcium Carbonate 750 Mg Tab.Chew) 750 mg PO Q4H PRN PRN Reason: Heartburn Ceftriaxone Sodium (Ceftriaxone Sodium 2 Gm Vial) 2 gm IVPUSH Q24H [facility] Last Admin: 11/09/24 23:49 Dose: 2 gm Documented By: LEONOR Dextrose (Dextrose 50 % 25 Gm/50 Ml Syringe) 25 gm IVPUSH Q15M PRN; Protocol PRN Reason: per Hypoglycemia Standing Ord. Dextrose (Dextrose 50 % 25 Gm/50 Ml Syringe) 25 gm IVPUSH Q15M PRN; Protocol PRN Reason: per Hypoglycemia Standing Ord. Enoxaparin Sodium (Enoxaparin Sodium 40 Mg/0.4 Ml Syringe) 40 mg SUBCUT Q24H [facility] Last Admin: 11/10/24 07:52 Dose: 40 mg Documented By: KIRIT Glucagon (Glucagon Hcl 1 Mg Vial) 1 mg SUBCUT Q20M PRN PRN Reason: Hypoglycemia Glucose (Glucose Gel 15 Gm Gel..Gram.) 15 gm PO Q15M PRN; Protocol PRN Reason: per Hypoglycemia Standing Ord. Dextrose/Sodium Chloride (D5ns) 1,000 mls @ 125 mls/hr IVCONT .Q8H [facility] Last Admin: 11/10/24 07:15 Dose: 125 mls/hr Documented By: ALOK Vancomycin HCl 1,250 mg/ (Sodium Chloride) 250 mls @ 166.667 mls/hr IV Q24H [facility] Last Infusion: 11/10/24 09:57 Dose: Infused Documented By: KIRIT Insulin Human Lispro (Insulin Lispro 100 Unit/Ml 3 Ml Vial) 0 unit SUBCUT QIDACHS [facility]; Protocol Last Admin: 11/10/24 11:16 Dose: 4 unit Documented By: KIRIT Magnesium Hydroxide (Milk Of Magnesia 30 Ml Oral.Susp) 30 ml PO DAILY PRN PRN Reason: Constipation Melatonin (Melatonin 3 Mg Tablet) 6 mg PO BEDTIME PRN PRN Reason: Insomnia Ondansetron HCl (Ondansetron Hcl 4 Mg/2 Ml Vial) 4 mg IVPUSH Q8H PRN PRN Reason: Nausea and Vomiting Oseltamivir Phosphate (Oseltamivir Phosphate 30 Mg Capsule) 30 mg PO BID [facility] Stop: 11/13/24 21:01 Last Admin: 11/10/24 07:52 Dose: 30 mg Documented By: KIRIT Pharmacy Consult (Consult Rx Vancomycin Dosing) 1 each MISCELLANE DAILY PRN PRN Reason: Consult order Senna (Sennosides 8.6 Mg Tablet) 17.2 mg PO BEDTIME PRN PRN Reason: Constipation Sodium Chloride (0.9 % Sodium Chloride Flush 3 Ml Syringe) 3 ml IVFLUSH QSHIFT [facility] Last Admin: 11/10/24 07:51 Dose: 3 ml Documented By: KIRIT Labs 11/10/24 06:41 11/10/24 06:41 Labs: Laboratory Results - last 24 hr 11/09/24 11/09/24 11/09/24 06:59 14:37 16:09 MCV MCH MCHC RDW Plt Count MPV Immature Gran % (Auto) Neut % (Auto) Lymph % (Auto) Harlan % (Auto) Eos % (Auto) Baso % (Auto) Lymph # (Auto) Harlan # (Auto) Eos # (Auto) Baso # (Auto) Abs Immat Gran (auto) Absolute Neuts (auto) Absolute Nucleated RBC Nucleated RBC % (auto) Anion Gap Estim Creat Clear Calc Estimated GFR POC Glucose 122 H 161 H Random Glucose Calcium Magnesium Total Bilirubin AST ALT Alkaline Phosphatase Total Protein Albumin TSH 0.99 11/09/24 11/09/24 11/09/24 18:42 21:06 23:58 MCV MCH MCHC RDW Plt Count MPV Immature Gran % (Auto) Neut % (Auto) Lymph % (Auto) Harlan % (Auto) Eos % (Auto) Baso % (Auto) Lymph # (Auto) Harlan # (Auto) Eos # (Auto) Baso # (Auto) Abs Immat Gran (auto) Absolute Neuts (auto) Absolute Nucleated RBC Nucleated RBC % (auto) Anion Gap Estim Creat Clear Calc Estimated GFR POC Glucose 180 H 201 H 164 H Random Glucose Calcium Magnesium Total Bilirubin AST ALT Alkaline Phosphatase Total Protein Albumin TSH 11/10/24 11/10/24 11/10/24 05:54 06:41 07:35 MCV 87.7 MCH 29.1 MCHC 33.2 RDW 14.6 Plt Count 221 MPV 9.2 L Immature Gran % (Auto) 0.3 Neut % (Auto) 62.7 Lymph % (Auto) 25.1 Harlan % (Auto) 10.7 Eos % (Auto) 0.9 Baso % (Auto) 0.3 Lymph # (Auto) 1.6 Harlan # (Auto) 0.7 Eos # (Auto) 0.1 Baso # (Auto) 0.0 Abs Immat Gran (auto) 0.02 Absolute Neuts (auto) 4.1 Absolute Nucleated RBC 0.000 Nucleated RBC % (auto) 0.0 Anion Gap 14 Estim Creat Clear Calc 71.5 Estimated GFR > 60 POC Glucose 153 H 128 H Random Glucose 156 H Calcium 8.5 D Magnesium 1.4 L* Total Bilirubin 0.2 AST 37 ALT 8 Alkaline Phosphatase 54 Total Protein 6.6 Albumin 3.3 L TSH 11/10/24 11:00 MCV MCH MCHC RDW Plt Count MPV Immature Gran % (Auto) Neut % (Auto) Lymph % (Auto) Harlan % (Auto) Eos % (Auto) Baso % (Auto) Lymph # (Auto) Harlan # (Auto) Eos # (Auto) Baso # (Auto) Abs Immat Gran (auto) Absolute Neuts (auto) Absolute Nucleated RBC Nucleated RBC % (auto) Anion Gap Estim Creat Clear Calc Estimated GFR POC Glucose 212 H Random Glucose Calcium Magnesium Total Bilirubin AST ALT Alkaline Phosphatase Total Protein Albumin TSH Microbiology Microbiology Results: Microbiology 11/08/24 Unknown Urine Culture - Final Urine clean catch - Clean Catch Midstream No growth. 11/08/24 22:12 Blood Culture - Preliminary Blood - Venous No growth after 24 hours. 11/08/24 22:12 Blood Culture - Preliminary Blood - Venous No growth after 24 hours. Assessment and Plan (1) Severe sepsis: Status: Acute (2) Hypoglycemia associated with diabetes: Status: Acute (3) Toxic metabolic encephalopathy: Status: Acute (4) Influenza A: Status: Acute (5) Acute kidney injury: Status: Acute (6) Urinary tract infection: Status: Acute Plan 74-year-old white male with medical history of cognitive impairment, HFpEF 55- 60%, hypertension, insulin-dependent diabetes mellitus, history of hemorrhagic CVA with subsequent gait instability, remote history of alcohol abuse, and BPH with the urinary retention now with a chronic indwelling Gross catheter and currently on treatment for urinary tract infection here with: # severe sepsis secondary to UTI and influenza A complicated with Toxic metabolic encephalopathy Sepsis resolved MEntal status improving continue the IV ceftriaxone Continue on Tamiflu Pending cultures DC IV fluids # Hypoglycemia in DMII Likely sulfonylurea induced SSI closely monitor blood sugars # influenza A infection Tamiflu renally dosed # acute renal failure Cr improved fro, 1.6 to 0.9 today DC fluids monitor I\O and BMP # Acute hypokalemia replacement given follow BMP DVT: SC Lovenox CODE STATUS: Full code Admission overnight for management of severe sepsis on IV antibiotics Quality Stroke Does the patient have a stroke diagnosis?: No VTE Prior VTE?: No VTE Risk Level:: Medical - moderate - high VTE Device Contraindication: N/A - Device Ordered VTE Drug Contraindication: N/A - Med Ordered
[2024-11-10 15:27] LABS: Glucose, Whole Blood 158 mg/dL (60-115)
[2024-11-10] MEDS: Loperamide HCl 2 MG CAPSULE PO ×2 (15:33→22:14)
[2024-11-10] MEDS: cefTRIAXone sodium 2 GM VIAL IVPUSH (19:48)
[2024-11-10 19:52] LABS: Glucose, Whole Blood 144 mg/dL (60-115)
[2024-11-10] MEDS: traZODone HCL 100 MG TABLET PO (22:14)
[2024-11-10] MEDS: risperiDONE 2 MG TABLET PO (22:14)
[2024-11-11] VITALS (7 sets, daily range): BP systolic 89–146; BP diastolic 56–89; PULSE 67–87; RESP 16–20; TEMP 37.2–37.6; O2SAT 93–95
[2024-11-11] MEDS: Acetaminophen 325 MG TABLET 650 MG PO ×4 (00:13→23:51)
[2024-11-11] MEDS: Loperamide HCl 2 MG CAPSULE PO ×3 (04:30→16:40)
[2024-11-11 06:44] LABS: MANUAL DIFF FLAG NO
[2024-11-11 07:09] LABS: Eosinophils Absolute Auto 0.1 X10*3/uL (0.0-0.4); Eosinophils Percent Auto 1.9 % (0-4); Hematocrit 32.6 % (42.0-52.0); Hemoglobin 10.8 g/dl (14.0-18.0); Imm Gran Abs Auto 0.02 X10*3/uL (0.00-0.03); Imm Gran Pct Auto 0.4 % (0.0-0.4); Lymphocytes Absolute Auto 1.9 X10*3/uL (1.2-4.9); Lymphocytes Percent Auto 36.5 % (20-40); Mean Corpuscular HGB Conc 33.1 g/dl (31.0-36.0); Mean Corpuscular Hemoglobin 28.6 pg (27.0-33.0); Mean Corpuscular Volume 86.5 fL (80.0-98.0); Mean Platelet Volume 9.2 fL (9.4-12.4); Monocytes Absolute Auto 0.5 X10*3/uL (0.1-1.2); Neutrophils Absolute Auto 2.7 x10*3/uL (2.0-8.3); Neutrophils Percent Auto 51.2 % (45-73); Platelet Count 199 X10*3/uL (160-400); Red Blood Count 3.77 X10*6/uL (4.60-5.80); Red Cell Distribution Width 14.3 % (11.0-16.0); White Blood Count 5.2 X10*3/uL (4.8-10.8)
[2024-11-11 07:37] LABS: Glucose, Whole Blood 145 mg/dL (60-115)
[2024-11-11 07:43] LABS: Vancomycin Random 9.8 mcg/mL (15-20)
[2024-11-11 07:47] LABS: Anion Gap 12 (12-20); Blood Urea Nitrogen 13 mg/dL (9-16); Calcium 8.6 mg/dL (8.4-10.2); Carbon Dioxide 27 mmol/L (22-29); Chloride 109 mmol/L (96-108); Creatinine Clr Calc Pharmacy 82.9; Estimated Glomerular Filt Rate > 60; Glucose Random 161 mg/dL (60-115); Potassium 2.8 mmol/L (3.3-5.1); Sodium 145 mmol/L (135-145)
--- NOTE | 2024-11-11 08:01 | HE.PHANOTE ---
Re Vanc Trugh was 9.8 mg/L, CrCl improving and now 1250mg q24H is subtherapeutic. Will increase to 1g q12h and recheck tomorrow at 0600
[2024-11-11 08:22] LABS: Magnesium 1.6 mg/dL (1.6-2.6)
[2024-11-11] MEDS: vancomycin HCL 1,000 MG in 0.9 % Sodium Chloride 250 ML 270 MG IV ×2 (09:25→20:50)
[2024-11-11] MEDS: Potassium Chloride/H20 10 MEQ/100 ML PIGGYBACK 100 MEQ IV ×2 (09:25→10:41)
[2024-11-11] MEDS: Enoxaparin Sodium 40 MG/0.4 ML SYRINGE SUBCUT (09:26)
[2024-11-11] MEDS: Oseltamivir Phosphate 30 MG CAPSULE PO ×2 (09:26→20:42)
[2024-11-11] MEDS: Potassium Chloride Packet 20 MEQ PACKET 40 MEQ PO ×2 (09:26→10:40)
--- NOTE | 2024-11-11 11:23 | MHC.SL.SWA ---
Speech Pathologist Impression: Mild oropharyngeal dysphagia d/t missing teeth, hx of cervical osteophyte Risk of Aspiration Due to: Reduced Cognition Dysphasia Diet Status: Liquid Consistency and Strategies for Safe Swallow: Liquid Intake Recommendation: Thin Liquid Intake Strategies: Small Sips Solid Food Consistency: Dietary Recommendations: Chopped/Advanced (NDD3) Additional Modifications to Solid Foods: Oral Medication Intake: Whole with Puree Please contact the pharmacy regarding appropriate crushable or liquid drug formulations that are available whenever modified delivery is recommended. Compensatory Strategies and Precautions to be Taken for Safe Swallow: Sitting Upright (90 deg) Small Bites and Sips Alternate Liquids/Solids Rate of Ingestion Change Supervision While Eating and Drinking for Safe Swallow: Intermittent Supervision Foods to Avoid: Swallowing Recommended Treatments: Compens. Strategy Educat. Recommendation for Speech: Inpatient Speech Therapy Comment: Pt tolerated thins, purees and solids (which he moistened by alternating consistencies during oral prep phase). No overt s/s of aspiration observed across trials, though pt reported he has had difficulty in the past with eating certain foods d/t cervical osteophyte. Pt said I don't want to do anything about it but was agreeable to [facility] assessment. He may be a candidate for short term dysphagia treatment if swallowing difficulties increase or persist. Frequency/Duration: M-F as indicated Date Range for Service Req: Timeline to reassess: Product Design Manager Clinican/Clinical Fellow: No Supervisory Statement: I have reviewed and agree with the student/clinical fellow's documentation: N/A Speech Language Pathologist: Penny Segundo M.S., [facility]
--- NOTE | 2024-11-11 11:31 | MHC.SL.SWA ---
Speech Pathologist Impression: Mild oropharyngeal dysphagia d/t missing dentition and generalized weakness Risk of Aspiration Due to: Reduced Cognition Dysphasia Diet Status: Liquid Consistency and Strategies for Safe Swallow: Liquid Intake Recommendation: Thin Liquid Intake Strategies: Small Sips Solid Food Consistency: Dietary Recommendations: Recc PUREE diet (NDD1) with THIN liquids. Aspiration precautions, 1:1 assistance with PO. Meds crushed or whole in puree. Additional Modifications to Solid Foods: Oral Medication Intake: Whole with Puree Please contact the pharmacy regarding appropriate crushable or liquid drug formulations that are available whenever modified delivery is recommended. Compensatory Strategies and Precautions to be Taken for Safe Swallow: Sitting Upright (90 deg) Small Bites and Sips Alternate Liquids/Solids Rate of Ingestion Change Supervision While Eating and Drinking for Safe Swallow: Total Supervision (1:1) Foods to Avoid: Swallowing Recommended Treatments: Compens. Strategy Educat. Recommendation for Speech: Inpatient Speech Therapy Comment: EKG MONITOR to follow. Pt needs much reassurance d/t confusion with situation. Frequency/Duration: M-F as indicated Date Range for Service Req: Timeline to reassess: Savings Counselor Clinican/Clinical Fellow: No Supervisory Statement: I have reviewed and agree with the student/clinical fellow's documentation: N/A Speech Language Pathologist: Penny Segundo M.S., CCC-EKG MONITOR
[2024-11-11] MEDS: Finasteride 5 MG TABLET PO (11:32)
[2024-11-11] MEDS: Clopidogrel Bisulfate 75 MG TABLET PO (11:34)
[2024-11-11] MEDS: risperiDONE 1 MG TABLET PO (11:34)
[2024-11-11] MEDS: Tamsulosin HCL 0.4 MG CAPSULE PO (11:34)
[2024-11-11] MEDS: risperiDONE 0.5 MG TABLET PO (11:34)
[2024-11-11] MEDS: Insulin Lispro 100 UNIT/ML 3 ML VIAL SUBCUT ×2 (11:47→20:42)
[2024-11-11 11:56] LABS: Glucose, Whole Blood 205 mg/dL (60-115)
--- NOTE | 2024-11-11 12:17 | P.PNIM_ITS ---
Subjective Subjective Date of Service: 11/11/24 Interval History: seen and evaluated this morning more alert and interactive tolerating PO NDD1 Having diarrhea Low K level no other overnight events Review of Systems Review of Systems: Yes all other systems are reviewed and are negative Physical Exam 2 Vital Signs: Vital Signs: Last Vital Signs Temp 99.1 F 11/11/24 11:52 Pulse 73 11/11/24 11:52 Resp 18 11/11/24 11:52 BP 89/56 L 11/11/24 11:37 Pulse Ox 95 11/11/24 11:52 O2 Del Method Room Air 11/11/24 11:52 O2 Flow Rate 1 11/10/24 23:34 BMI result Body Mass Index 26.3 Const: Other: Constitutional : interactive, not in distress Cardiovascular : no JVP, no lower extremity edema Respiratory : bilateral chest movement, not in resp distress Gastrointestinal: soft, lax, Non tender Skin : Warm, Dry Neurological : Alert & oriented to self, No focal deficit Objective Data Active Medications Acetaminophen (Acetaminophen Supp 650 Mg Supp.Rect) 650 mg SD Q4H PRN PRN Reason: Pain, Mild 1-3,fever,headache Last Admin: 11/09/24 23:49 Dose: 650 mg Acetaminophen (Acetaminophen 325 Mg Tablet) 650 mg PO QSHIFT [facility] Last Admin: 11/11/24 09:25 Dose: 650 mg Documented By: FLETCHER Amlodipine Besylate (Amlodipine Besylate 5 Mg Tablet) 5 mg PO DAILY [facility]; Protocol Last Admin: 11/11/24 11:37 Dose: Not Given Documented By: FLETCHER Non-Admin Reason: Decreased Blood Pressure Atorvastatin Calcium (Atorvastatin Calcium 40 Mg Tablet) 40 mg PO BEDTIME [facility] Calcium Carbonate (Calcium Carbonate 750 Mg Tab.Chew) 750 mg PO Q4H PRN PRN Reason: Heartburn Ceftriaxone Sodium (Ceftriaxone Sodium 2 Gm Vial) 2 gm IVPUSH Q24H [facility] Last Admin: 11/10/24 19:48 Dose: 2 gm Documented By: AMARILYS Clopidogrel Bisulfate (Clopidogrel Bisulfate 75 Mg Tablet) 75 mg PO DAILY [facility] Last Admin: 11/11/24 11:34 Dose: 75 mg Documented By: FLETCHER Dextrose (Dextrose 50 % 25 Gm/50 Ml Syringe) 25 gm IVPUSH Q15M PRN; Protocol PRN Reason: per Hypoglycemia Standing Ord. Dextrose (Dextrose 50 % 25 Gm/50 Ml Syringe) 25 gm IVPUSH Q15M PRN; Protocol PRN Reason: per Hypoglycemia Standing Ord. Enoxaparin Sodium (Enoxaparin Sodium 40 Mg/0.4 Ml Syringe) 40 mg SUBCUT Q24H [facility] Last Admin: 11/11/24 09:26 Dose: 40 mg Documented By: FLETCHER Finasteride (Finasteride 5 Mg Tablet) 5 mg PO DAILY [facility] Last Admin: 11/11/24 11:32 Dose: 5 mg Documented By: FLETCHER Glucagon (Glucagon Hcl 1 Mg Vial) 1 mg SUBCUT Q20M PRN PRN Reason: Hypoglycemia Glucose (Glucose Gel 15 Gm Gel..Gram.) 15 gm PO Q15M PRN; Protocol PRN Reason: per Hypoglycemia Standing Ord. Vancomycin HCl 1,000 mg/ (Sodium Chloride) 270 mls @ 270 mls/hr IV Q12H [facility] Last Infusion: 11/11/24 10:52 Dose: Infused Documented By: FLETCHER Insulin Human Lispro (Insulin Lispro 100 Unit/Ml 3 Ml Vial) 0 unit SUBCUT QIDACHS [facility]; Protocol Last Admin: 11/11/24 11:47 Dose: 4 unit Documented By: FLETCHER Loperamide HCl (Loperamide Hcl 2 Mg Capsule) 2 mg PO Q4H PRN PRN Reason: Diarrhea Last Admin: 11/11/24 09:26 Dose: 2 mg Documented By: FLETCHER Magnesium Hydroxide (Milk Of Magnesia 30 Ml Oral.Susp) 30 ml PO DAILY PRN PRN Reason: Constipation Magnesium Oxide (Magnesium Oxide 400 Mg Tablet) 400 mg PO BID [facility] Melatonin (Melatonin 3 Mg Tablet) 6 mg PO BEDTIME PRN PRN Reason: Insomnia Metoprolol Succinate (Metoprolol Succinate Er 25 Mg Tab.Er.24h) 25 mg PO DAILY [facility]; Protocol Mirtazapine (Mirtazapine 15 Mg Tablet) 15 mg PO BEDTIME [facility] Ondansetron HCl (Ondansetron Hcl 4 Mg/2 Ml Vial) 4 mg IVPUSH Q8H PRN PRN Reason: Nausea and Vomiting Oseltamivir Phosphate (Oseltamivir Phosphate 30 Mg Capsule) 30 mg PO BID [facility] Stop: 11/13/24 21:01 Last Admin: 11/11/24 09:26 Dose: 30 mg Documented By: FLETCHER Pharmacy Consult (Consult Rx Vancomycin Dosing) 1 each MISCELLANE DAILY PRN PRN Reason: Consult order Risperidone (Risperidone 2 Mg Tablet) 2 mg PO BEDTIME [facility] Last Admin: 11/10/24 22:14 Dose: 2 mg Documented By: AMARILYS Risperidone (Risperidone 0.5 Mg Tablet) 0.5 mg PO DAILY@0900 [facility] Last Admin: 11/11/24 11:34 Dose: 0.5 mg Documented By: FLETCHER Risperidone (Risperidone 1 Mg Tablet) 1 mg PO DAILY@0900 [facility] Last Admin: 11/11/24 11:34 Dose: 1 mg Documented By: FLETCHER Senna (Sennosides 8.6 Mg Tablet) 17.2 mg PO BEDTIME PRN PRN Reason: Constipation Sodium Chloride (0.9 % Sodium Chloride Flush 3 Ml Syringe) 3 ml IVFLUSH QSHIFT [facility] Last Admin: 11/11/24 09:26 Dose: Not Given Documented By: FLETCHER Non-Admin Reason: Previously Administered Tamsulosin HCl (Tamsulosin Hcl 0.4 Mg Capsule) 0.4 mg PO DAILY [facility] Last Admin: 11/11/24 11:34 Dose: 0.4 mg Documented By: FLETCHER Trazodone HCl (Trazodone Hcl 100 Mg Tablet) 100 mg PO BEDTIME [facility] Last Admin: 11/10/24 22:14 Dose: 100 mg Documented By: AMARILYS Labs 11/11/24 06:25 11/11/24 06:25 Labs: Laboratory Results - last 24 hr 11/10/24 11/10/24 11/11/24 15:13 19:49 06:25 MCV 86.5 MCH 28.6 MCHC 33.1 RDW 14.3 Plt Count 199 MPV 9.2 L Immature Gran % (Auto) 0.4 Neut % (Auto) 51.2 Lymph % (Auto) 36.5 Will % (Auto) 10.0 Eos % (Auto) 1.9 Baso % (Auto) 0.0 Lymph # (Auto) 1.9 Will # (Auto) 0.5 Eos # (Auto) 0.1 Baso # (Auto) 0.0 Abs Immat Gran (auto) 0.02 Absolute Neuts (auto) 2.7 Absolute Nucleated RBC 0.000 Nucleated RBC % (auto) 0.0 Anion Gap 12 Estim Creat Clear Calc 82.9 Estimated GFR > 60 POC Glucose 158 H 144 H Random Glucose 161 H Calcium 8.6 Magnesium 1.6 Random Vancomycin 9.8 L 11/11/24 11/11/24 07:33 11:40 MCV MCH MCHC RDW Plt Count MPV Immature Gran % (Auto) Neut % (Auto) Lymph % (Auto) Will % (Auto) Eos % (Auto) Baso % (Auto) Lymph # (Auto) Will # (Auto) Eos # (Auto) Baso # (Auto) Abs Immat Gran (auto) Absolute Neuts (auto) Absolute Nucleated RBC Nucleated RBC % (auto) Anion Gap Estim Creat Clear Calc Estimated GFR POC Glucose 145 H 205 H Random Glucose Calcium Magnesium Random Vancomycin Microbiology Microbiology Results: Microbiology 11/08/24 22:12 Blood Culture - Preliminary Blood - Venous No growth after 48 hours. 11/08/24 22:12 Blood Culture - Preliminary Blood - Venous No growth after 48 hours. 11/08/24 Unknown Urine Culture - Final Urine clean catch - Clean Catch Midstream No growth. Assessment and Plan (1) Severe sepsis: Status: Acute (2) Hypoglycemia associated with diabetes: Status: Acute (3) Toxic metabolic encephalopathy: Status: Acute (4) Influenza A: Status: Acute (5) Acute kidney injury: Status: Acute (6) Acute hypokalemia: Status: Acute Plan 74-year-old white male with medical history of cognitive impairment, HFpEF 55- 60%, hypertension, insulin-dependent diabetes mellitus, history of hemorrhagic CVA with subsequent gait instability, remote history of alcohol abuse, and BPH with the urinary retention now with a chronic indwelling Gross catheter and currently on treatment for urinary tract infection here with: # severe sepsis secondary to UTI and influenza A complicated with Toxic metabolic encephalopathy Sepsis resolved MEntal status improving DC IV ceftriaxone as urine culture negative Continue on Tamiflu negative cultures DC IV fluids # Acute hypokalemia low at 2.6 replacement given follow BMP # Diarrhea no pain or fever likely Abx related, check stool studies if recurrent Imodium if -ve # Hypoglycemia in DMII Likely sulfonylurea induced SSI closely monitor blood sugars # influenza A infection Tamiflu renally dosed # acute renal failure Cr improved fro, 1.6 to 0.9 DC fluids monitor I\O and BMP DVT: SC Lovenox CODE STATUS: Full code Admission overnight for management of severe sepsis on IV antibiotics Quality Stroke Does the patient have a stroke diagnosis?: No VTE Prior VTE?: No VTE Risk Level:: Medical - moderate - high VTE Device Contraindication: N/A - Device Ordered VTE Drug Contraindication: N/A - Med Ordered
[2024-11-11 14:22] LABS: Leukocytes Stool Qualitative NEGATIVE (NEGATIVE)
[2024-11-11 14:31] LABS: Blood Urea Nitrogen 14 mg/dL (9-16); Calcium 8.6 mg/dL (8.4-10.2); Creatinine Clr Calc Pharmacy 81.9; Estimated Glomerular Filt Rate > 60; Glucose Random 203 mg/dL (60-115)
[2024-11-11 15:15] LABS: Anion Gap 15 (12-20); Carbon Dioxide 21 mmol/L (22-29); Chloride 111 mmol/L (96-108); Potassium 4.5 mmol/L (3.3-5.1); Sodium 142 mmol/L (135-145)
[2024-11-11 16:32] LABS: Glucose, Whole Blood 118 mg/dL (60-115)
[2024-11-11] MEDS: OLANZapine 10 MG VIAL 5 MG IM ×2 (16:40→22:27)
[2024-11-11 20:27] LABS: Glucose, Whole Blood 191 mg/dL (60-115)
[2024-11-11] MEDS: risperiDONE 2 MG TABLET PO (20:42)
[2024-11-11] MEDS: Magnesium Oxide 400 MG TABLET PO (20:42)
[2024-11-11] MEDS: traZODone HCL 100 MG TABLET PO (20:42)
[2024-11-11] MEDS: Atorvastatin Calcium 40 MG TABLET PO (20:42)
[2024-11-11] MEDS: Mirtazapine 15 MG TABLET PO (20:42)
[2024-11-11] MEDS: 0.9 % Sodium Chloride Flush 3 ML SYRINGE IVFLUSH (23:51)
[2024-11-12] VITALS: BP 133/68; PULSE 92; RESP 17; TEMP 36.8; O2SAT 95
[2024-11-12 04:00] VITALS: BP 149/85; PULSE 85; RESP 16; TEMP 36.8; O2SAT 94
[2024-11-12 07:01] LABS: Creatinine Clr Calc Pharmacy 97.1; Estimated Glomerular Filt Rate > 60
[2024-11-12 07:15] LABS: Glucose, Whole Blood 183 mg/dL (60-115)
[2024-11-12 07:34] VITALS: BP 157/90; PULSE 79; RESP 20; TEMP 37.2; O2SAT 94
[2024-11-12 07:52] LABS: Vancomycin Random 14.3 mcg/mL (15-20)
--- NOTE | 2024-11-12 08:07 | HE.PHANOTE ---
Re: Vanco Renal function improving. Trough returned at 14.3. Dose was slightly increased to 1250mg q12h with predicted auc 590, predicted trough 19. Will likely need to dose reduce tomorrow. Next trough 11/13 @0600.
[2024-11-12] MEDS: vancomycin HCL 1,250 MG in 0.9 % Sodium Chloride 250 ML 166.67 MG IV (09:02)
[2024-11-12 09:03] VITALS: BP 156/87; PULSE 74
[2024-11-12] MEDS: Finasteride 5 MG TABLET PO (09:03)
[2024-11-12] MEDS: Metoprolol Succinate ER 25 MG TAB.ER.24H PO (09:03)
[2024-11-12] MEDS: Tamsulosin HCL 0.4 MG CAPSULE PO (09:03)
[2024-11-12] MEDS: risperiDONE 0.5 MG TABLET PO (09:03)
[2024-11-12] MEDS: Acetaminophen 325 MG TABLET 650 MG PO (09:03)
[2024-11-12] MEDS: Clopidogrel Bisulfate 75 MG TABLET PO (09:03)
[2024-11-12] MEDS: Enoxaparin Sodium 40 MG/0.4 ML SYRINGE SUBCUT (09:04)
[2024-11-12] MEDS: Magnesium Oxide 400 MG TABLET PO (09:04)
[2024-11-12] MEDS: risperiDONE 1 MG TABLET PO (09:04)
[2024-11-12] MEDS: Oseltamivir Phosphate 30 MG CAPSULE PO (09:04)
[2024-11-12] MEDS: 0.9 % Sodium Chloride Flush 3 ML SYRINGE IVFLUSH (09:04)
[2024-11-12] MEDS: Insulin Lispro 100 UNIT/ML 3 ML VIAL SUBCUT ×2 (09:04→11:57)
--- NOTE | 2024-11-12 09:20 | MHC.CM.PN ---
Second IMM given 11/12. Pt is medically cleared for discharge today, he will return to [facility] via [facility]. Pts HCP Tracy was called and notified of discharge.
--- NOTE | 2024-11-12 11:14 | PM.DS ---
DS: Providers Provider Date of Service: 11/12/24 Date of admission: 11/09/24 04:59 Date of discharge: 11/12/24 Primary care physician: Zay Bhagat MD DS: Diagnosis Discharge Diagnosis (1) Severe sepsis: Status: Acute (2) Hypoglycemia associated with diabetes: Status: Acute (3) Toxic metabolic encephalopathy: Status: Acute (4) Influenza A: Status: Acute (5) Acute kidney injury: Status: Acute (6) Acute hypokalemia: Status: Acute DS: Summary Hospital Course Hospital Course: Admission note HPI This is a 74-year-old white male with medical history of cognitive impairment, HFpEF 55-60%, hypertension, insulin-dependent diabetes mellitus, history of hemorrhagic CVA with subsequent gait instability, remote history of alcohol abuse, and BPH with the urinary retention now with a chronic indwelling Gross catheter and currently on treatment for urinary tract infection (with oral Amoxil and IV Ceftriaxone) who is brought to the emergency room from rehab facility where he currently resides for evaluation of altered mental status with concerns for sepsis. Per EMS, he was more lethargic throughout the day today and was noted to have a labile blood sugars throughout the day. He has so far received 2 doses of IV ceftriaxone with the last 1 being shortly before being brought in. When EMS arrived at scene, his blood sugar was 49 and so they administered 1 mg of glucagon and oral glucose past. He has on insulin which he did not receive today but did receive his glipizide. They also found him hypotensive and febrile. In our emergency department, he had a documented temperature of a 101.3? F. initial investigations done were notable for a positive influenza a PCR test, leukocytosis of 16.6, elevated lactic acid at 3.0, mild renal insufficiency with a BUN of 35 and a creatinine 1.58, and urinalysis showing partially treated UTI with 3+ leukocyte esterase, > 50 WBC/HPF and no bacteria. He received a 2.58 L of lactated Ringer solution and 1 g of IV ceftriaxone. Unfortunately his blood sugars continued to drop and so he was started on D5 NS continuous infusion. When I go to see him he was still altered and not able to provide much history. Admission was requested for further treatment of severe sepsis due to UTI and influenza A. Hospital course The patient treated for the following: # severe viral sepsis secondary to influenza A complicated with Toxic metabolic encephalopathy. He was treated with IV fluid boluses and maintainance along with broad spectrum antibiotics [facility] S[facility]is resolved and MEntal status improved to baseline. Blood and urine cultures remained negative. discontinued IV ceftriaxone as urine culture negative. To continue on Tamiflu for 3 more doses on discharge. # Acute hypokalemia, low at 2.6 on presentation. replacement given with good response. # Diarrhea, no pain or fever, likely Abx related, negative stool white blood cells. can use Imodium as needed. # Hypoglycemia in DMII . Likely sulfonylurea induced. resolved. DEcrease Glipizide to once a day. # influenza A infection. Tamiflu renally dosed # acute renal failure. Cr improved from 1.6 on presentation to 0.9. Discharge plan Continue Tamiflu Discontinue Ceftriaxone Decrease Glipizide to 10 mg daily and consider weaning it off completely. Time Attestation Discharge Coordination Time (in mins): 46 Quality: Safe Use of Opioids Does Pt have an Active Cancer Diagnosis on the Problem List?: No Quality: Stroke Does the patient have a stroke diagnosis?: No Physical Exam Vital Signs: Vital Signs: Last Vital Signs Temp 98.9 F 11/12/24 07:34 Pulse 74 11/12/24 09:03 Resp 20 11/12/24 07:34 BP 156/87 H 11/12/24 09:03 Pulse Ox 94 11/12/24 07:34 O2 Del Method Room Air 11/12/24 07:34 O2 Flow Rate 1 11/10/24 23:34 BMI result Body Mass Index 26.3 Const: Other: Constitutional : interactive, not in distress Cardiovascular : no JVP, no lower extremity edema Respiratory : bilateral chest movement, not in resp distress Gastrointestinal: soft, lax, Non tender Skin : Warm, Dry Neurological : Alert & oriented to self, No focal deficit DS: Data Data Completed and Pending Labs on day of discharge: Laboratory Results - last 24 hr 11/11/24 11/11/24 11/11/24 11:40 12:28 13:12 Sodium 142 Potassium 4.5 D Chloride 111 H Carbon Dioxide 21 L Anion Gap 15 BUN 14 Creatinine 0.83 Estim Creat Clear Calc 81.9 Estimated GFR > 60 POC Glucose 205 H Random Glucose 203 H Calcium 8.6 Stool Leukocytes, Qual NEGATIVE Random Vancomycin 11/11/24 11/11/2425 16:15 20:22 06:09 Sodium Potassium Chloride Carbon Dioxide Anion Gap BUN Creatinine 0.70 Estim Creat Clear Calc 97.1 Estimated GFR > 60 POC Glucose 118 H 191 H Random Glucose Calcium Stool Leukocytes, Qual Random Vancomycin 14.3 L 11/12/24 07:02 Sodium Potassium Chloride Carbon Dioxide Anion Gap BUN Creatinine Estim Creat Clear Calc Estimated GFR POC Glucose 183 H Random Glucose Calcium Stool Leukocytes, Qual Random Vancomycin Preliminary micro results at discharge 11/08/24 22:12 Blood Culture - Preliminary Blood - Venous No growth after 48 hours. 11/08/24 22:12 Blood Culture - Preliminary Blood - Venous No growth after 48 hours. Imaging Chest x-ray: Radiologist's impression: IMPRESSION: Low lung volumes with pulmonary vascular prominence. This document has been electronically signed by: Ancelmo Patel MD on 11/08/2024 22:37:19 Discharge Plan Discharge Anticipated Discharge Date/Time: 11/12/24 11:11 Patient Disposition: [facility] Discharge Diagnosis: Influenza Hypoglycemia Kidney injury Referrals: [facility] [Outside] - 1 Week Physician,Unknown J [Physician] - 1 Week Discharge Medications: New oseltamivir 30 mg Capsule 30 mg PO BID Qty: 3 0RF Continued (DME) pen needle, diabetic 32 gauge x 1/4 needle Qty: 100 0RF Rx Instructions: use with Lantus Solostar Pen once daily (DME) lancets [FreeStyle Lancets] 28 gauge misc Qty: 100 0RF Rx Instructions: Test four times a day or as directed. atorvastatin 40 mg tablet 40 mg PO BEDTIME metoprolol succinate 50 mg tablet extended release 24 hr 50 mg PO DAILY clopidogrel 75 mg tablet 75 mg PO DAILY amlodipine 5 mg tablet 5 mg PO DAILY risperidone 2 mg tablet 2 mg PO BEDTIME tamsulosin 0.4 mg capsule 0.4 mg PO DAILY trazodone 100 mg tablet 100 mg PO BEDTIME metformin 1,000 mg tablet 1,000 mg PO BID mirtazapine 15 mg tablet 15 mg PO BEDTIME insulin degludec [Tresiba FlexTouch U-100] 100 unit/mL (3 mL) insulin pen 18 unit subcut DAILY acetaminophen 325 mg Tablet 650 mg PO Q6H PRN (Reason: Fever Or Pain) Rx Instructions: DNE 3 G IN 24 HRS bisacodyl 10 mg Suppository 10 mg WA DAILY PRN (Reason: if no BM for 8 hours after MOM) insulin lispro [Humalog U-100 Insulin] 100 unit/mL Solution 1 sliding scale dose SUBCUT USEASDIRECTD Protocol: Insulin Correction Scale Less than or equal to 110 ---- Give (units): 0 111 to 150 Give (units): 0 151 to 200 Give (units): 0 201 to 250 Give (units): 4 251 to 300 Give (units): 6 301 to 350 Give (units): 8 Greater than 350 Give (units): 10 Call MD if Blood Glucose > : 400 acetaminophen 325 mg Tablet 650 mg PO TID Rx Instructions: DNE 3 G IN 24 HRS risperidone 1 mg tablet 1 mg PO DAILY@0900 risperidone 0.5 mg tablet 0.5 mg PO DAILY@0900 sodium chloride 1,000 mg Tablet,Soluble 1,000 mg PO BID magnesium oxide 400 mg (241.3 mg magnesium) tablet 400 mg PO BID finasteride 5 mg Tablet 5 mg PO DAILY Qty: 90 0RF dextrose [Glutose-45] 40 % Gel 15 g PO Q15M PRN (Reason: Hypoglycemia) Rx Instructions: until symptoms of low blood sugar are controlled glucagon 1 mg/0.2 mL Auto-Injector 1 mg SUBCUT Q20M PRN (Reason: Hypoglycemia) Changed glipizide 10 mg Tablet 10 mg PO DAILY Qty: 60 0RF Discontinued ceftriaxone 1 gram Recon Soln 1 g IV DAILY Rx Instructions: MIXED WITH 2.5 LIDOCAINE; END DATE: 11/10/24 Discharge Orders: Discharge Order (Routine); Ordered 11/12/24 Ordered By: Luciano Salgado Diet: Advance to usual diet Activity on Discharge: As tolerated Stand Alone Forms: Patient Portal Discharge page Print Language: [place] Care Plan Goals: Continue Tamiflu Discontinue Ceftriaxone Decrease Glipizide to 10 mg daily and consider weaning it off completely. Health Concerns: Influenza A Plan of Treatment: Tamiflu Assessment: as above
[2024-11-12 11:30] LABS: Glucose, Whole Blood 181 mg/dL (60-115)
[2024-11-12 11:45] VITALS: BP 119/78; PULSE 74; RESP 20; TEMP 37.1; O2SAT 93
== END 2024-11-12 12:41 | DRG 872 ==
LOC: HO.ED 11-09 02:22 → HO.EDOVER 11-09 05:10 → HO.IMC 11-10 03:39
PROVIDERS: Physician Assistant Medical; Admitting Provider Internal Medicine; Emergency Provider Internal Medicine; PCP Internal Medicine; Visit Provider Student in an Organized Health Care Education/Training Program
DX: A41.9 Sepsis, unspecified organism (principal); N17.9 Acute kidney failure, unspecified; K52.1 Toxic gastroenteritis and colitis; N39.0 Urinary tract infection, site not specified; N40.1 Benign prostatic hyperplasia with lower urinary tract symptoms; R33.8 Other retention of urine; E11.649 Type 2 diabetes mellitus with hypoglycemia without coma; E86.0 Dehydration; T36.95XA Adverse effect of unspecified systemic antibiotic, initial encounter; E87.6 Hypokalemia; J10.81 Influenza due to other identified influenza virus with encephalopathy; I69.398 Other sequelae of cerebral infarction; R26.89 Other abnormalities of gait and mobility; Z87.891 Personal history of nicotine dependence; Z96.0 Presence of urogenital implants; Z79.4 Long term (current) use of insulin; Z79.02 Long term (current) use of antithrombotics/antiplatelets; Z79.84 Long term (current) use of oral hypoglycemic drugs; Z79.899 Other long term (current) drug therapy
CPT/HCPCS: 0241U; 36415; 71045; 80048; 80053; 80202; 81001; 82565; 82947; 83605; 83735; 84443; 85025; 87040; 87086; 89055; 92610; 99285; J0131; J0696; J1650; J1885; J2359; J3370; J3371; J3475; J3480; J7120; P9047

== ENCOUNTER → 2024-11-08 21:46 | Outpatient (BNV) | payer MEDICARE, SELFPAY | PROVIDERS: Emergency Provider Internal Medicine; Visit Provider Radiology Diagnostic Radiology | DX: R06.02 Shortness of breath (principal) | CPT/HCPCS: 71045 ==

== ENCOUNTER → 2024-11-09 04:59 | Outpatient (BNV) | payer MEDICARE, SELFPAY | PROVIDERS: Admitting Provider Internal Medicine; Emergency Provider Internal Medicine; Visit Provider Internal Medicine | DX: A41.9 Sepsis, unspecified organism (principal); R65.20 Severe sepsis without septic shock; E11.649 Type 2 diabetes mellitus with hypoglycemia without coma; G92.8 Other toxic encephalopathy; J10.1 Influenza due to other identified influenza virus with other respiratory manifestations; N17.9 Acute kidney failure, unspecified; N39.0 Urinary tract infection, site not specified | CPT/HCPCS: 99232; 99233; 99239 ==

== ENCOUNTER 2024-11-15 17:32 | Emergency (ER) | payer MEDICARE, SELFPAY ==
--- NOTE | ~2024-11-15 | CT_ITS ---
CLINICAL HISTORY: cough, sob CT chest without contrast Comparison: CR - XR CHEST 1V - 11/15/24 18:59 EDT CR - XR CHEST 1V - 11/08/24 21:51 EST Findings: Ascending aorta measures 4.0 x 3.8 cm. Aortic and coronary atherosclerosis. Normal heart size. No pericardial effusion. Few subcentimeter paratracheal nodes. Visualized thyroid gland is within normal limits. Minimal linear scarring versus atelectasis in the left lower lobe. No consolidation, pleural effusion or pneumothorax. Cholelithiasis. Chronic pancreatitis with diffuse calcifications and atrophy. Displaced fracture of the right posterior 11th rib. Degenerative changes of the spine. IMPRESSION: 1. No acute findings in the lungs. 2. Ascending thoracic aortic aneurysm measuring 4.0 x 3.8 cm. 3. Displaced fracture of the right posterior 11th rib. This document has been electronically signed by: Donnie Mohamud MD on 11/15/2024 22:38:43
--- NOTE | ~2024-11-15 | CT_ITS ---
CLINICAL HISTORY: abd pain, nausea, black pepples in urine bag CT abdomen and pelvis without contrast Comparison: CT/SR - CT ABDOMEN PELVIS WO IV CON - 10/22/24 23:30 EST Findings: Linear atelectasis in the left lower lobe. Cyst in the right hepatic lobe. Cholelithiasis. No wall thickening or pericholecystic fluid. No biliary duct dilatation. Chronic pancreatitis with parenchymal atrophy and diffuse calcifications. Spleen and adrenal glands are within normal limits. No hydronephrosis or renal calculi. No bowel obstruction, pneumoperitoneum, or pneumatosis. Aortic atherosclerosis. No aneurysm. Prostate calcifications. Gross catheter tip and balloon in the penile urethra. Intraluminal air in the urinary bladder. 3 mm right posterior bladder calculus. No acute fracture. IMPRESSION: Gross catheter malpositioned in penile urethra. No other acute intraabdominal or pelvic pathology. This document has been electronically signed by: Donnie Mohamud MD on 11/15/2024 23:09:02
--- NOTE | ~2024-11-15 | XR_ITS ---
CLINICAL HISTORY: cough 1 view chest x-ray Comparison: CR - XR CHEST 1V - 11/08/24 21:51 EST CR - XR CHEST 1V - 10/23/24 00:24 EST CR - XR CHEST 1V - 06/03/21 19:46 EDT Findings: The lungs are clear. Cardiomediastinal silhouette is stable. No acute fracture. IMPRESSION: 1. No acute findings. This document has been electronically signed by: Donnie Mohamud MD on 11/15/2024 19:54:15
[2024-11-15 17:39] VITALS: BP 130/78; PULSE 76; O2SAT 95
[2024-11-15 17:48] VITALS: BP 135/78; PULSE 76; RESP 16; TEMP 36.7; O2SAT 95; BMI 26.8
--- NOTE | 2024-11-15 17:48 | ED_ITS ---
HPI - General Adult General Chief complaint: General Medical Stated complaint: from snf. increased lethargy poc 313 Time Seen by Provider: 11/15/24 17:48 Source: patient, RN notes reviewed and old records reviewed History of Present Illness ED Provider: Katy Guzmán PA-C HPI narrative: 74-year-old male with a past medical history of BPH, CHF, hemorrhagic stroke, ETOH use disorder, HTN, presenting to the ED via EMS from [facility] with increased lethargy and POC of 313 per EMS. Patient recently diagnosed with influenza on 11/12/2024. Patient reports cough, SOB, abdominal pain, and nausea. Denies chest pain, fever, vomiting, diarrhea, dysuria, headache Related Data Home Medications ?Medication ?Instructions ?Recorded ?Confirmed amlodipine 5 mg tablet 5 mg PO DAILY 08/14/24 11/09/24 atorvastatin 40 mg tablet 40 mg PO BEDTIME 08/14/24 11/09/24 clopidogrel 75 mg tablet 75 mg PO DAILY 08/14/24 11/09/24 insulin degludec 100 unit/mL (3 18 unit subcut DAILY 08/14/24 11/09/24 mL) subcutaneous pen (Tresiba FlexTouch U-100 insulin) metformin 1,000 mg tablet 1,000 mg PO BID 08/14/24 11/09/24 metoprolol succinate 50 mg 50 mg PO DAILY 08/14/24 11/09/24 tablet,extended release 24 hr mirtazapine 15 mg tablet 15 mg PO BEDTIME 08/14/24 11/09/24 risperidone 2 mg tablet 2 mg PO BEDTIME 08/14/24 11/09/24 tamsulosin 0.4 mg capsule 0.4 mg PO DAILY 08/14/24 11/09/24 trazodone 100 mg tablet 100 mg PO BEDTIME 08/14/24 11/09/24 acetaminophen 325 mg tablet 650 mg PO Q6H PRN Fever Or Pain 09/24/24 11/09/24 bisacodyl 10 mg rectal suppository 10 mg WI DAILY PRN if no BM for 8 09/24/24 11/09/24 hours after MOM insulin lispro 100 unit/mL 1 sliding scale dose subcut 09/24/24 11/09/24 subcutaneous solution (Humalog USEASDIRECTD U-100 Insulin) acetaminophen 325 mg tablet 650 mg PO TID 10/23/24 11/09/24 magnesium oxide 400 mg (241.3 mg 400 mg PO BID 10/23/24 11/09/24 magnesium) tablet risperidone 0.5 mg tablet 0.5 mg PO DAILY@0910/23/24 11/09/24 risperidone 1 mg tablet 1 mg PO DAILY@0910/23/24 11/09/24 sodium chloride 1,000 mg soluble 1,000 mg PO BID 10/23/24 11/09/24 tablet dextrose 40 % oral gel (Glutose-45) 15 g PO Q15M PRN Hypoglycemia 11/09/24 11/09/24 glucagon 1 mg/0.2 mL subcutaneous 1 mg subcut Q20M PRN Hypoglycemia 11/09/24 11/09/24 auto-injector Previous Rx's ?Medication ?Instructions ?Recorded lancets 28 gauge (FreeStyle #100 ea 12/01/23 Lancets) pen needle, diabetic 32 gauge x #100 ea 12/01/2309/07 finasteride 5 mg tablet 5 mg PO DAILY #90 tabs 10/25/24 glipizide 10 mg tablet 10 mg PO DAILY #60 tabs 11/12/24 oseltamivir 30 mg capsule 30 mg PO BID #3 caps 11/12/24 Allergies Allergy/AdvReac Type Severity Reaction Status Date / Time meperidine [From DEMEROL] Allergy Unknown UNKNOWN Verified 11/15/24 17:50 Review of Systems 2 Review of Systems: Yes all other systems are reviewed and are negative Constitutional: Constitutional: Reports as per HPI Neurologic: Denies Abnormal speech present [facility] Past Medical History Attestation statement: The following information was validated with the patient. Source: old records reviewed Medical History BPH loc w urin obs/LUTS Severe recurrent major depressive disorder with psychosis CHF (congestive heart failure) Hemorrhagic stroke Cholelithiasis Alcohol use disorder HTN (hypertension) Surgical History No pertinent past surgical history Social History Social History Household Members: Other [facility] Do you presently have visiting nurse or other home services: No Alcohol intake: current Alcohol intake frequency: 0-2 drinks per day Alcohol type: hard liquor Comment: sitter at bedside Patient Tobacco Use Status: Former Tobacco user Smoked in Last 30 Days: No Second Hand Smoke Exposure: No Use of substances other than those prescribed or required for medical reasons: No Advance Directives: Yes Advance Directives on File: Yes Advance Directives Date on File: 04/12/23 Do you have a plan to hurt others: No Plan service: No Current occupational status: disabled Physical Exam ED Vital Signs: Vital Signs - 24 hr 11/15/24 17:48 11/15/24 17:53 11/15/24 18:15 Temperature 98.1 F 98.1 F Pulse Rate 76 76 79 Respiratory Rate 16 16 18 Blood Pressure 135/78 135/78 Pulse Oximetry 95 95 Oxygen Delivery Method Room Air Room Air 11/15/24 19:14 11/15/24 22:07 Temperature 97.6 F 97.9 F Pulse Rate 79 75 Respiratory Rate 20 20 Blood Pressure 149/84 H 133/72 Pulse Oximetry 96 97 Oxygen Delivery Method Room Air Room Air BMI result Body Mass Index 26.8 Const General: cooperative, healthy appearing and no acute distress Orientation/consciousness: patient oriented x3 Limitations: no limitations HENMT Head: Yes normal to inspection and Yes atraumatic Ears: hearing grossly normal bilaterally General nose exam: Normal external nose present Face and sinus: Yes normal facial exam Eyes General: appearance normal, both eyes and all related structures Pupils: Equal, round and reactive pupils present EOM: EOMs intact bilaterally Neck Neck: Yes normal visual inspection and Yes no meningeal signs Resp Effort & Inspection: normal respiratory effort and no respiratory distress Auscultation: crackles diffuse Cardio Rate: regular rate Heart sounds: S1 normal heart sound present and S2 normal heart sound present GI Inspection: Yes normal to inspection Palpation (GI): Soft to palpation, Tenderness to palpation present (GI) (Diffusely) with no rebound tenderness, no guarding and not rigid Skin Rashes: no rashes Wounds: no wounds Neuro General: patient oriented x3, tone normal, moves all extremities, no meningeal signs, no focal motor deficits and CN's II-XI intact bilaterally Cranial nerves: Yes CN's II-XII intact bilaterally, Yes Equal, round and reactive pupils present and Yes Bilaterally intact EOM present Cognition (Neuro): normal cognition Speech: No Abnormal speech present Motor exam (neuro): 5/5 motor strength present throughout Extrem General: Yes normal to inspection and Yes no pedal edema Course Course Course Narrative: -1947--no leukocytosis. H/H stable -lactic acid elevated to 2.9 > will give IVF and repeat. No evidence of infection at this time. Known viral etiology. Initial troponin 21.1 > will obtain repeat. BNP 198 -UA appears chronically infected, patient with chronic indwelling Gross catheter, likely colonization rather than acute infection, had recent negative urine cultures > Will hold on initiating antibiotics until culture results -patient with known influenza A -0000-- repeat lactic acid 2.2 XR chest 1V IMPRESSION: 1. No acute findings CT chest without contrast IMPRESSION: 1. No acute findings in the lungs. 2. Ascending thoracic aortic aneurysm measuring 4.0 x 3.8 cm. 3. Displaced fracture of the right posterior 11th rib > No reported falls. No ecchymosis/erythema or evidence of flail chest. No reproducible chest pain CT abdomen pelvis wo IV con IMPRESSION: Gross catheter malpositioned in penile urethra. No other acute intraabdominal or pelvic pathology. > Gross catheter replaced with urinary return. -112--repeat lactic acid WNL. Troponin without significant rise. Mi unlikely. Patient is safe for discharge back to SNF at this time Results discussed with patient including worrisome signs and symptoms and strict return precautions, and when to return to the emergency department. They verbalized understanding and feel safe for discharge at this time. Medications Administered Discontinued Medications Generic Name Dose Route Start Last Admin Trade Name Nick PRN Reason Stop Dose Admin Albuterol/Ipratropium 3 ml 11/15/24 18:06 11/15/24 18:15 Albuterol/Iprat 2.5/0.5mg 3 Ml Ampul.Neb INHALE 11/15/24 18:07 3 ml ONCE ONE Administration Sodium Chloride 500 mls @ 999 mls/hr 11/15/24 18:30 11/15/24 19:55 Ns IV 11/15/24 19:00 Infused .Q31M HERACLIO Infusion Sodium Chloride 500 mls @ 999 mls/hr 11/15/24 21:30 11/15/24 22:03 Ns IV 11/15/24 22:00 Infused .Q31M HERACLIO Infusion Medical Decision Making Medical Decision Making MDM Narrative: 1800 - 74-year-old male with a past medical history of BPH, CHF, hemorrhagic stroke, ETOH use disorder, HTN, presenting to the ED via EMS from [facility] with increased lethargy and POC of 313 per EMS. Patient reports cough, SOB, abdominal pain, and nausea. On exam vital signs stable, NAD, diffuse crackles appreciated, abdomen soft diffusely tender, no rebound or guarding, no focal neuro deficits. Concern for continued influenza/viral illness vs pneumonia vs ? Aspiration. Concern for colitis/gastroenteritis vs other intra- abdominal pathology. Low suspicion for PE/DVT or CHF. Unlikely severe sepsis at this time. Unlikely DKA Plan: EKG, labs, UA, CXR, CT AP, viral testing, ED bronch protocol, +/-admission Please refer to course for remaining clinical decision making, interpretation of labs/imaging results, and discussions with consultants and/or family members. Differential Diagnosis Differential Diagnoses: The differential diagnosis associated with the presentation includes As above Admission/Observation Consideration of admission/observation: Escalation of care including admission/observation considered Lab Data [facility] Lab Attestation statement: I reviewed the patient's lab results. 11/15/24 18:32 11/15/24 18:32 Labs: Lab Results 11/15/24 11/15/24 11/15/24 Range/Units 18:11 18:32 18:52 WBC 7.4 (4.8-10.8) X10*3/uL RBC 3.99 L (4.60-5.80) X10*6/uL Hgb 11.4 L (14.0-18.0) g/dl Hct 33.5 L (42.0-52.0) % MCV 84.0 (80.0-98.0) fL MCH 28.6 (27.0-33.0) pg MCHC 34.0 (31.0-36.0) g/dl RDW 14.3 (11.0-16.0) % Plt Count 237 (160-400) X10*3/uL MPV 9.1 L (9.4-12.4) fL Immature Gran % (Auto) 0.4 (0.0-0.4) % Neut % (Auto) 89.0 H (45-73) % Lymph % (Auto) 9.2 L (20-40) % [place] % (Auto) 1.3 L (2-11) % Eos % (Auto) 0.0 (0-4) % Baso % (Auto) 0.1 (0-2) % Lymph # (Auto) 0.7 L (1.2-4.9) X10*3/uL [place] # (Auto) 0.1 (0.1-1.2) X10*3/uL Eos # (Auto) 0.0 (0.0-0.4) X10*3/uL Baso # (Auto) 0.0 (0.0-0.2) X10*3/uL Abs Immat Gran (auto) 0.03 (0.00-0.03) X10*3/uL Absolute Neuts (auto) 6.6 (2.0-8.3) x10*3/uL Absolute Nucleated RBC 0.000 (0.0-0.012) X10*3/uL Nucleated RBC % (auto) 0.0 (0.0-0.2) /100WBC Sodium 142 (135-145) mmol/L Potassium 4.7 (3.3-5.1) mmol/L Chloride 110 H (96-108) mmol/L Carbon Dioxide 22 (22-29) mmol/L Anion Gap 15 (12-20) BUN 18 H (9-16) mg/dL Creatinine 0.92 (0.5-1.4) mg/dL Estim Creat Clear Calc 71.6 Estimated GFR > 60 POC Glucose 204 H (60-115) mg/dL Random Glucose 226 H (60-115) mg/dL Lactic Acid 2.9 H* (0.5-2.0) mmol/L Lactic Acid F/U @ 2Hr (0.5-2.0) mmol/L Lactic Acid F/U @ 4Hr (0.5-2.0) mmol/L Calcium 9.4 D (8.4-10.2) mg/dL Magnesium 1.7 (1.6-2.6) mg/dL Total Bilirubin 0.4 (0.0-1.0) mg/dL Direct Bilirubin 0.2 (0.0-0.5) mg/dL AST 32 (5-37) U/L ALT 21 (0-40) U/L Alkaline Phosphatase 66 (39-117) U/L Troponin I High Sens 21.1 (<3.5-35.0) ng/L B-Natriuretic Peptide 198 H (<100) pg/mL Total Protein 7.6 (6.5-8.0) g/dL Albumin 3.8 (3.5-5.0) g/dL Lipase 7 L (8-78) U/L Urine Color Yellow Urine Appearance Turbid Urine pH 6.0 (5.0-9.0) Ur Specific [place] 1.020 (1.005-1.025) Urine Protein 300 (3+) H (Neg-Trace) mg/dL Urine Glucose (UA) Negative (Negative) mg/dL Urine Ketones Trace (Negative) mg/dL Urine Blood Large (3+) H (Negative) Urine Nitrite Negative (Negative) Ur Leukocyte Esterase Large (3+) H (Negative) Urine RBC >20 H (0-2) /HPF Urine WBC >50 H (0-5) /HPF Ur Squamous Epith Cells 0-2 (0-2) /HPF Urine Bacteria 1+ (None Seen) Hyaline Casts 3-5 (0-2) /LPF Influenza Type A (PCR) POSITIVE A (Negative) Influenza Type B (PCR) NEGATIVE (Negative) RSV RNA Qual (PCR) NEGATIVE (Negative) SARS-CoV-2 RNA (RT-PCR) NEGATIVE (Negative) 11/15/24 11/16/24 Range/Units 20:54 00:02 WBC (4.8-10.8) X10*3/uL RBC (4.60-5.80) X10*6/uL Hgb (14.0-18.0) g/dl Hct (42.0-52.0) % MCV (80.0-98.0) fL MCH (27.0-33.0) pg MCHC (31.0-36.0) g/dl RDW (11.0-16.0) % Plt Count (160-400) X10*3/uL MPV (9.4-12.4) fL Immature Gran % (Auto) (0.0-0.4) % Neut % (Auto) (45-73) % Lymph % (Auto) (20-40) % [place] % (Auto) (2-11) % Eos % (Auto) (0-4) % Baso % (Auto) (0-2) % Lymph # (Auto) (1.2-4.9) X10*3/uL [place] # (Auto) (0.1-1.2) X10*3/uL Eos # (Auto) (0.0-0.4) X10*3/uL Baso # (Auto) (0.0-0.2) X10*3/uL Abs Immat Gran (auto) (0.00-0.03) X10*3/uL Absolute Neuts (auto) (2.0-8.3) x10*3/uL Absolute Nucleated RBC (0.0-0.012) X10*3/uL Nucleated RBC % (auto) (0.0-0.2) /100WBC Sodium (135-145) mmol/L Potassium (3.3-5.1) mmol/L Chloride (96-108) mmol/L Carbon Dioxide (22-29) mmol/L Anion Gap (12-20) BUN (9-16) mg/dL Creatinine (0.5-1.4) mg/dL Estim Creat Clear Calc Estimated GFR POC Glucose (60-115) mg/dL Random Glucose (60-115) mg/dL Lactic Acid (0.5-2.0) mmol/L Lactic Acid F/U @ 2Hr 2.2 H* (0.5-2.0) mmol/L Lactic Acid F/U @ 4Hr 1.5 (0.5-2.0) mmol/L Calcium (8.4-10.2) mg/dL Magnesium (1.6-2.6) mg/dL Total Bilirubin (0.0-1.0) mg/dL Direct Bilirubin (0.0-0.5) mg/dL AST (5-37) U/L ALT (0-40) U/L Alkaline Phosphatase (39-117) U/L Troponin I High Sens 18.3 (<3.5-35.0) ng/L B-Natriuretic Peptide (<100) pg/mL Total Protein (6.5-8.0) g/dL Albumin (3.5-5.0) g/dL Lipase (8-78) U/L Urine Color Urine Appearance Urine pH (5.0-9.0) Ur Specific [place] (1.005-1.025) Urine Protein (Neg-Trace) mg/dL Urine Glucose (UA) (Negative) mg/dL Urine Ketones (Negative) mg/dL Urine Blood (Negative) Urine Nitrite (Negative) Ur Leukocyte Esterase (Negative) Urine RBC (0-2) /HPF Urine WBC (0-5) /HPF Ur Squamous Epith Cells (0-2) /HPF Urine Bacteria (None Seen) Hyaline Casts (0-2) /LPF Influenza Type A (PCR) (Negative) Influenza Type B (PCR) (Negative) RSV RNA Qual (PCR) (Negative) SARS-CoV-2 RNA (RT-PCR) (Negative) Independent Interpretation I performed an independent interpretation of an: EKG (My interpretation EKG normal sinus rhythm rate of 65. WI interval 204. Nonspecific T-wave abnormality no evident in inferior leads compared to prior. No STEMI ) Radiology Impression Discussion of test interpretation with radiology: I have reviewed the radiologist's reading. Independent Historian Clinical information obtained from an independent historian. History obtained from or confirmed by: EMS External Record Review External record reviewed: Inpatient record, Office record, Outpatient record, Prior outpatient labs, Prior outpatient radiology, Primary care record and Outside ED record Tests considered The following testing was considered but not selected: As above Prescription Management I considered prescription management with: Antibiotic Chronic Conditions Patient?s care impacted by: Diabetes and Other Social Determinants Patient?s care significantly limited by Social Determinants of Health including: Inadequate housing, Problems related to primary support group and Other Social Determinant of Health Discharge Plan Discharge Clinical Impression: Fracture of rib, Complication of Gross catheter, Lethargy Patient Disposition: [facility] Transfer Details: [facility] Rehab Instructions: Rib Fracture (ED), Gross Catheter Placement and Care (ED), Fatigue (ED) Additional Instructions: Your Gross catheter was not in the correct position, we replaced her Gross. You have a displaced 11th right rib fracture. Please follow-up with thoracic surgery outpatient Take Tylenol, ibuprofen, and use Lidoderm patches for pain. 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 atorvastatin 40 mg tablet 40 mg PO BEDTIME metoprolol succinate 50 mg tablet extended release 24 hr 50 mg PO DAILY clopidogrel 75 mg tablet 75 mg PO DAILY amlodipine 5 mg tablet 5 mg PO DAILY risperidone 2 mg tablet 2 mg PO BEDTIME tamsulosin 0.4 mg capsule 0.4 mg PO DAILY trazodone 100 mg tablet 100 mg PO BEDTIME metformin 1,000 mg tablet 1,000 mg PO BID mirtazapine 15 mg tablet 15 mg PO BEDTIME insulin degludec [Tresiba FlexTouch U-100] 100 unit/mL (3 mL) insulin pen 18 unit subcut DAILY acetaminophen 325 mg Tablet 650 mg PO Q6H PRN (Reason: Fever Or Pain) Rx Instructions: DNE 3 G IN 24 HRS bisacodyl 10 mg Suppository 10 mg WI DAILY PRN (Reason: if no BM for 8 hours after MOM) insulin lispro [Humalog U-100 Insulin] 100 unit/mL Solution 1 sliding scale dose SUBCUT USEASDIRECTD Protocol: Insulin Correction Scale Less than or equal to 110 ---- Give (units): 0 111 to 150 Give (units): 0 151 to 200 Give (units): 0 201 to 250 Give (units): 4 251 to 300 Give (units): 6 301 to 350 Give (units): 8 Greater than 350 Give (units): 10 Call MD if Blood Glucose > : 400 acetaminophen 325 mg Tablet 650 mg PO TID Rx Instructions: DNE 3 G IN 24 HRS risperidone 1 mg tablet 1 mg PO DAILY@0900 risperidone 0.5 mg tablet 0.5 mg PO DAILY@0900 sodium chloride 1,000 mg Tablet,Soluble 1,000 mg PO BID magnesium oxide 400 mg (241.3 mg magnesium) tablet 400 mg PO BID finasteride 5 mg Tablet 5 mg PO DAILY Qty: 90 0RF dextrose [Glutose-45] 40 % Gel 15 g PO Q15M PRN (Reason: Hypoglycemia) Rx Instructions: until symptoms of low blood sugar are controlled glucagon 1 mg/0.2 mL Auto-Injector 1 mg SUBCUT Q20M PRN (Reason: Hypoglycemia) oseltamivir 30 mg Capsule 30 mg PO BID Qty: 3 0RF glipizide 10 mg Tablet 10 mg PO DAILY Qty: 60 0RF Referrals: [facility] [place]Provider Group] - 1 week Zay Bhagat MD [Primary Care Provider] - 3 days Print Language: Kazakh
[2024-11-15 17:53] VITALS: BP 135/78; PULSE 76; RESP 16; TEMP 36.7; O2SAT 95
--- NOTE | 2024-11-15 18:02 | ECG_ITS ---
Test Reason : weakness Blood Pressure : */* mmHG Vent. Rate : 65 BPM Atrial Rate : 65 BPM P-R Int : 204 ms QRS Dur : 116 ms QT Int : 462 ms P-R-T Axes : 31 -11 -23 degrees QTcB Int : 480 ms Normal sinus rhythm Nonspecific T wave abnormality Prolonged QT Abnormal ECG When compared with ECG of 22-Oct-2024 22:16, Vent. rate has decreased by 32 bpm Nonspecific T wave abnormality now evident in Inferior leads Referred By: Katy Guzmán Electronically Signed By: KINGSTON OSBORNE
[2024-11-15 18:15] VITALS: PULSE 79; RESP 18; O2SAT 97
[2024-11-15] MEDS: Albuterol/Iprat 2.5/0.5MG 3 ML AMPUL.NEB INHALE (18:15)
[2024-11-15 18:23] LABS: Glucose, Whole Blood 204 mg/dL (60-115)
--- OUTSIDE RECORDS SUMMARY | 2024-11-15 18:28 | XMS_ITS | Encounter Summary ---
Author Organization [facility] Address [address] [place] [address] Care Team Providers Care Family Lawyer Name Role Phone Zay Bhagat MD Primary Care Provider Encounter Details Date Type Department Care Team (Late st Contact Info) Description 10/02/2024 Lab Requisition [facility] - Main Lab [address] [place] [address] Benjamin Gaytan MD [address] [place] [address] [place] [address] Other terminal makeup operator (current) drug therapy Social History Tobacco Use [...] PANEL Routine 10/02/2024 4:52 AM EST Other custodial (current) drug therapy documented in this encounter Results * (ABNORMAL) Comprehensive metabolic panel (10/02/2024 4:52 AM EST) Sodium 126(L) 133 - 145 mmol/L LAB CHEMISTRY METHOD 10/02/2024 12:38 PM EST [facility] Potassium 5.1 3.5 - 5.5 mmol/L LAB CHEMISTRY METHOD 10/02/2024 12:38 PM EST [facility] Chloride 92(L) 96 - 110 mmol/L LAB CHEMISTRY METHOD 10/02/2024 12:38 PM [facility] CO2 27 21 - 32 mmol/L LAB CHEMISTRY METHOD 10/02/2024 12:38 PM [facility] Anion Gap 7 3 - 11 LAB CHEMISTRY METHOD 10/02/2024 12:38 PM [facility] Glucose 80 70 - 100 mg/dL LAB CHEMISTRY METHOD 10/02/2024 12:38 PM [facility] BUN 17 5 - 25 mg/dL LAB CHEMISTRY METHOD 10/02/2024 12:38 PM [facility] Creatinine 0.84 0.70 - 1.30 mg/dL LAB CHEMISTRY METHOD 10/02/2024 12:38 PM [facility] eGFR 91 >=60 mL/min/1. 73m2 LAB CHEMISTRY METHOD 10/02/2024 12:38 PM [facility] Comment:Calculation based on the??Chronic Kidney Disease Epidemiology Collaboration (CKD-EPI) equation refit??without adjustment for race. BUN/Creatinine Ratio 20.2 LAB CHEMISTRY METHOD 10/02/2024 12:38 PM [facility] Calcium 9.4 8.5 - 10.5 mg/dL LAB CHEMISTRY METHOD 10/02/2024 12:38 PM [facility] AST (SGOT) 16 10 - 42 unit/L LAB CHEMISTRY METHOD 10/02/2024 12:38 PM [facility] ALT (SGPT) 22 10 - 60 unit/L LAB CHEMISTRY METHOD 10/02/2024 12:38 PM [facility] Alkaline Phosphatase 57 42 - 121 unit/L LAB CHEMISTRY METHOD 10/02/2024 12:38 PM [facility] Total Protein 6.7 6.0 - 8.0 g/dL LAB CHEMISTRY METHOD 10/02/2024 12:38 PM [facility] Albumin 3.6 3.2 - 5.0 g/dL LAB CHEMISTRY METHOD 10/02/2024 12:38 PM EST [facility] Total Bilirubin 0.5 0.0 - 1.4 mg/dL LAB CHEMISTRY METHOD 10/02/2024 12:38 PM EST [facility] Blood Venous blood specimen / Unknown Venipuncture / Unknown 10/02/2024 4:52 AM EST 10/02/2024 10:40 AM EST us Benjamin Gaytan MD LAB BLOOD ORDERABLES Final Resu lt [facility] [address] [place] [address], documented in this encounter Visit Diagnoses Diagnosis Other custodial (current) drug therapy documented in this encounter Additional Health Concerns Infection Onset Date Last Indicated Resolved Time Respiratory Rule-Out 11/08/2024 11/08/2024 025 4:47 PM EST Influenza 11/08/2024 11/08/2024 documented as of this encounter Care Teams Family Lawyer Relationship Specialty Start Date End Date Zay Bhagat MD [address] [place] [address] PCP - General 05/30/23 documented as of this encounter
--- OUTSIDE RECORDS SUMMARY | 2024-11-15 18:28 | XMS_ITS | Encounter Summary ---
Author Organization [facility] Address [address] [place] [address] Care Team Providers Care Cut Off Saw Set Up Operator Name Role Phone Zay Bhagat MD Primary Care Provider Encounter Details Date Type Department Care Team (Late st Contact Info) Description 09/28/2024 Lab Requisition [facility] - Main Lab 299 [facility] [place] [address] Gris Rousseau MD [address] [address] Type 2 diabetes mellitus without complications (CMS/HCC) [...] mmol/L LAB CHEMISTRY METHOD 09/30/2024 2:05 PM [facility] Potassium 4.5 3.5 - 5.5 mmol/L LAB CHEMISTRY METHOD 09/30/2024 2:05 PM [facility] Chloride 89(L) 96 - 110 mmol/L LAB CHEMISTRY METHOD 09/30/2024 2:05 PM [facility] CO2 26 21 - 32 mmol/L LAB CHEMISTRY METHOD 09/30/2024 2:05 PM [facility] Anion Gap 9 3 - 11 LAB CHEMISTRY METHOD 09/30/2024 2:05 PM [facility] Glucose 229(H) 70 - 100 mg/dL LAB CHEMISTRY METHOD 09/30/2024 2:05 PM [facility] BUN 17 5 - 25 mg/dL LAB CHEMISTRY METHOD 09/30/2024 2:05 PM [facility] Creatinine 1.41(H) 0.70 - 1.30 mg/dL LAB CHEMISTRY METHOD 09/30/2024 2:05 PM [facility] eGFR 52(L) >=60 mL/min/1. 73m2 LAB CHEMISTRY METHOD 09/30/2024 2:05 PM [facility] Comment:Calculation based on the??Chronic Kidney Disease Epidemiology Collaboration (CKD-EPI) equation refit??without adjustment for race. BUN/Creatinine Ratio 12.1 LAB CHEMISTRY METHOD 09/30/2024 2:05 PM [facility] Calcium 10.1 8.5 - 10.5 mg/dL LAB CHEMISTRY METHOD 09/30/2024 2:05 PM [facility] AST (SGOT) 28 10 - 42 unit/L LAB CHEMISTRY METHOD 09/30/2024 2:05 PM [facility] ALT (SGPT) 23 10 - 60 unit/L LAB CHEMISTRY METHOD 09/30/2024 2:05 PM [facility] Alkaline Phosphatase 68 42 - 121 unit/L LAB CHEMISTRY METHOD 09/30/2024 2:05 PM [facility] Total Protein 7.5 6.0 - 8.0 g/dL LAB CHEMISTRY METHOD 09/30/2024 2:05 PM [facility] Albumin 4.1 3.2 - 5.0 g/dL LAB CHEMISTRY METHOD 09/30/2024 2:05 PM [facility] Total Bilirubin 0.7 0.0 - 1.4 mg/dL LAB CHEMISTRY METHOD 09/30/2024 2:05 PM [facility] Blood Venous blood specimen / Unknown Venipuncture / Unknown 09/30/2024 10:45 AM EST 09/30/2024 11:48 AM EST Gris Rousseau MD LAB BLOOD ORDERABLES Fin al Result [facility] [address] [place] [address], * (ABNORMAL) Complete blood count (09/30/2024 10:45 AM EST) WBC 9.8 4.8 - 10.8 K/mcL LAB HEMETOLOGY METHOD 09/30/2024 1:17 PM [facility] RBC 4.50 4.50 - 5.50 M/mcL LAB HEMETOLOGY METHOD 09/30/2024 1:17 PM [facility] Hemoglobin 13.5 13.5 - 17.5 g/dL LAB HEMETOLOGY METHOD 09/30/2024 1:17 PM [facility] Hematocrit 39.3(L) 42.0 - 54.0 % LAB HEMETOLOGY METHOD 09/30/2024 1:17 PM [facility] MCV 87.5 79.0 - 98.0 FL LAB HEMETOLOGY METHOD 09/30/2024 1:17 PM [facility] MCH 30.1 27.0 - 32.0 pcg LAB HEMETOLOGY METHOD 09/30/2024 1:17 PM [facility] MCHC 34.4 32.0 - 37.0 g/dL LAB HEMETOLOGY METHOD 09/30/2024 1:17 PM [facility] RDW 12.8 11.0 - 15.0 % LAB HEMETOLOGY METHOD 09/30/2024 1:17 PM [facility] Platelets 250 130 - 400 K/mcL LAB HEMETOLOGY METHOD 09/30/2024 1:17 PM [facility] MPV 9.7 7.0 - 11.0 FL LAB HEMETOLOGY METHOD 09/30/2024 1:17 PM [facility] NRBC 0.0 <1.0 % LAB HEMETOLOGY METHOD 09/30/2024 1:17 PM [facility] NRBC Absolute 0.00 <0.10 K/mcL LAB HEMETOLOGY METHOD 09/30/2024 1:17 PM [facility] Blood Venous blood specimen / Unknown Venipuncture / Unknown 09/30/2024 10:45 AM EST 09/30/2024 11:48 AM EST us Gris Rousseau MD LAB BLOOD ORDERABLES Fin al Result [facility] [address] [place] [address], documented in this encounter Visit Diagnoses Diagnosis Type 2 diabetes mellitus without complications (CMS/HCC) documented in this encounter Additional Health Concerns Infection Onset Date Last Indicated Resolved Time Respiratory Rule-Out 11/08/2024 11/08/2024 025 4:47 PM EST Influenza 11/08/2024 11/08/2024 documented as of this encounter Care Teams Cut Off Saw Set Up Operator Relationship Specialty Start Date End Date Zay Bhagat MD [address] [place] [address] PCP - General 05/30/23 documented as of this encounter
--- OUTSIDE RECORDS SUMMARY | 2024-11-15 18:28 | XMS_ITS | Encounter Summary ---
Author Organization [facility] Address [address] [place] [address] Care Team Providers Care Flue Dust Laborer Name Role Phone Zay Bhagat MD Primary Care Provider Encounter Details Date Type Department Care Team (Late st Contact Info) Description 09/26/2024 Lab Requisition [facility] - Main Lab 299 [facility] [place] [address] Gris Rousseau MD [address] [address] Type 2 diabetes mellitus without complications (CMS/HCC) [...] mmol/L LAB CHEMISTRY METHOD 09/26/2024 9:18 AM [facility] Potassium 4.0 3.5 - 5.5 mmol/L LAB CHEMISTRY METHOD 09/26/2024 9:18 AM [facility] Chloride 97 96 - 110 mmol/L LAB CHEMISTRY METHOD 09/26/2024 9:18 AM [facility] CO2 29 21 - 32 mmol/L LAB CHEMISTRY METHOD 09/26/2024 9:18 AM [facility] Anion Gap 5 3 - 11 LAB CHEMISTRY METHOD 09/26/2024 9:18 AM [facility] Glucose 117(H) 70 - 100 mg/dL LAB CHEMISTRY METHOD 09/26/2024 9:18 AM [facility] BUN 17 5 - 25 mg/dL LAB CHEMISTRY METHOD 09/26/2024 9:18 AM [facility] Creatinine 0.82 0.70 - 1.30 mg/dL LAB CHEMISTRY METHOD 09/26/2024 9:18 AM [facility] eGFR 92 >=60 mL/min/1. 73m2 LAB CHEMISTRY METHOD 09/26/2024 9:18 AM [facility] Comment:Calculation based on the??Chronic Kidney Disease Epidemiology Collaboration (CKD-EPI) equation refit??without adjustment for race. BUN/Creatinine Ratio 20.7 LAB CHEMISTRY METHOD 09/26/2024 9:18 AM [facility] Calcium 9.0 8.5 - 10.5 mg/dL LAB CHEMISTRY METHOD 09/26/2024 9:18 AM [facility] AST (SGOT) 16 10 - 42 unit/L LAB CHEMISTRY METHOD 09/26/2024 9:18 AM [facility] ALT (SGPT) 19 10 - 60 unit/L LAB CHEMISTRY METHOD 09/26/2024 9:18 AM [facility] Alkaline Phosphatase 59 42 - 121 unit/L LAB CHEMISTRY METHOD 09/26/2024 9:18 AM [facility] Total Protein 6.5 6.0 - 8.0 g/dL LAB CHEMISTRY METHOD 09/26/2024 9:18 AM EST [facility] Albumin 3.5 3.2 - 5.0 g/dL LAB CHEMISTRY METHOD 09/26/2024 9:18 AM [facility] Total Bilirubin 0.6 0.0 - 1.4 mg/dL LAB CHEMISTRY METHOD 09/26/2024 9:18 AM [facility] Blood Venous blood specimen / Unknown Venipuncture / Unknown 09/26/2024 6:01 AM EST 09/26/2024 8:29 AM EST us Gris Rousseau MD LAB BLOOD ORDERABLES Fin al Result [facility] [address] [place] [address], * (ABNORMAL) Complete blood count (09/26/2024 6:01 AM EST) WBC 6.5 4.8 - 10.8 K/mcL LAB HEMETOLOGY METHOD 09/26/2024 8:56 AM [facility] RBC 4.10(L) 4.50 - 5.50 M/mcL LAB HEMETOLOGY METHOD 09/26/2024 8:56 AM [facility] Hemoglobin 12.2(L) 13.5 - 17.5 g/dL LAB HEMETOLOGY METHOD 09/26/2024 8:56 AM [facility] Hematocrit 35.7(L) 42.0 - 54.0 % LAB HEMETOLOGY METHOD 09/26/2024 8:56 AM [facility] MCV 87.9 79.0 - 98.0 FL LAB HEMETOLOGY METHOD 09/26/2024 8:56 AM [facility] MCH 30.0 27.0 - 32.0 pcg LAB HEMETOLOGY METHOD 09/26/2024 8:56 AM EST [facility] MCHC 34.2 32.0 - 37.0 g/dL LAB HEMETOLOGY METHOD 09/26/2024 8:56 AM [facility] RDW 12.2 11.0 - 15.0 % LAB HEMETOLOGY METHOD 09/26/2024 8:56 AM [facility] Platelets 246 130 - 400 K/mcL LAB HEMETOLOGY METHOD 09/26/2024 8:56 AM [facility] MPV 9.5 7.0 - 11.0 FL LAB HEMETOLOGY METHOD 09/26/2024 8:56 AM [facility] NRBC 0.0 <1.0 % LAB HEMETOLOGY METHOD 09/26/2024 8:56 AM [facility] NRBC Absolute 0.00 <0.10 K/mcL LAB HEMETOLOGY METHOD 09/26/2024 8:56 AM [facility] Blood Venous blood specimen / Unknown Venipuncture / Unknown 09/26/2024 6:01 AM EST 09/26/2024 8:29 AM EST us Gris Rousseau MD LAB BLOOD ORDERABLES Fin al Result [facility] [address] [place] [address], documented in this encounter Visit Diagnoses Diagnosis Type 2 diabetes mellitus without complications (CMS/HCC) documented in this encounter Additional Health Concerns Infection Onset Date Last Indicated Resolved Time Respiratory Rule-Out 11/08/2024 11/08/2024 025 4:47 PM EST Influenza 11/08/2024 11/08/2024 documented as of this encounter Care Teams Flue Dust Laborer Relationship Specialty Start Date End Date Zay Bhagat MD [address] [place] [address] PCP - General 05/30/23 documented as of this encounter
--- OUTSIDE RECORDS SUMMARY | 2024-11-15 18:29 | XMS_ITS | Encounter Summary ---
Author Organization [facility] Address [address] [place] [address] Care Team Providers Care Food Processing Chemist Name Role Phone Zay Bhagat MD Primary Care Provider Encounter Details Date Type Department Care Team (Late st Contact Info) Description 11/08/2024 Lab Requisition [facility] - Main Lab 299 [facility] [place] [address] Loren Rothman NP [address] [place] [address] Chronic cough Social History Tobacco Use Types [...] Procedure Name Priority Date/Time Associated Diagnosis Comments [id number], RSV, FLU A AND B QUALITATIVE RT-PCR, LOCAL REFERENCE LAB Routine 11/08/2024 12:00 AM EST Chronic cough documented in this encounter Results * (ABNORMAL) [id number], RSV, Influenza A and B qualitative RT-PCR (11/08/2024 12:00 AM EST) SARS COV-2 Not Detected Not Detected LAB MOLECULAR DIAGNOSTICS METHOD 11/08/2024 4:47 PM EST [facility] Comment: Disclaimer: The manner in which this information is used to guide patient care is the responsibility of the healthcare provider. Testing was performed using the [employer] m SARS-CoV-2 test. This test has [...] for Healthcare Providers can be found at: https://www.fda.gov/media/757099/download Fact sheet for Patients can be found at: https://www.fda.gov/media/543917/download Influenza A PCR Detected(A ) Not Detected LAB MOLECULAR DIAGNOSTICS METHOD 11/08/2024 4:47 PM EST [facility] Comment:This patient is posi tive for influenza A. If the patient is admitted, please order the Respiratory Virus Panel PCR (Epic ID: [id number]) so our lab can subtype the influenza A, per CDC recommendations. Influenza B PCR Not Detected Not Detected LAB MOLECULAR DIAGNOSTICS METHOD 11/08/2024 4:47 PM EST [facility] RSV PCR Not Detected Not Detected LAB MOLECULAR DIAGNOSTICS METHOD 11/08/2024 4:47 PM EST [facility] Swab Nasopharyngeal structure / Unknown Non-blood Collection / Unknown 11/08/2024 11/08/2024 2:14 PM EST Loren [facility] LAB MICROBIOLOGY - GENERAL ORDER BRANDIE Final Result [facility] [address] [place] [address], documented in this encounter Visit Diagnoses Diagnosis Chronic cough Cough documented in this encounter Additional Health Concerns Infection Onset Date Last Indicated Resolved Time Respiratory Rule-Out 11/08/2024 11/08/2024 025 4:47 PM EST Influenza 11/08/2024 11/08/2024 documented as of this encounter Care Teams Food Processing Chemist Relationship Specialty Start Date End Date Zay Bhagat MD [address] [place] [address] PCP - General 05/30/23 documented as of this encounter
--- OUTSIDE RECORDS SUMMARY | 2024-11-15 18:29 | XMS_ITS | Patient Health Record ---
Author Organization Dave Guzman MD Address [address] [place], [place] [id number] Care Team Providers Care Online Content Editor Name Role Phone Dave Guzman Primary Care [...] W/U Status Risk Notes Problem Undescended testicle (419292312) Undescended testicle, unspecified, bilateral (Q53.20) Active confirmed Problem Undescended testicle (638626540) Undescended testicle, unspecified (Q53.9) Active confirmed Problem Pancreatic mass (642626987) Pancreatic mass (K86.9) Active confirmed Problem Subdural hematoma (06233238) Subdural hematoma (S06.5X9A) Active confirmed Plan Of Treatment No Information Insurance Providers Payer Name Payer Address Payer Phone Subscriber Number Group Number Insured Name Patient Relationship to Insured Coverage Start Date Coverage End Date [facility] are [employer] [address] [address] [place] [address] [id number] Gadiel Arevalo Self - patient is the insured
--- OUTSIDE RECORDS SUMMARY | 2024-11-15 18:29 | XMS_ITS | Encounter Summary ---
Author Organization [facility] Address [address] [place] [address] Care Team Providers Care Miller Helper Name Role Phone Zay Bhagat MD Primary Care Provider Encounter Details Date Type Department Care Team (Late st Contact Info) Description 10/04/2024 Lab Requisition [facility] - Main Lab [address] [facility] [place] [address] Gris Rousseau MD [address] [address] Type 2 diabetes mellitus without complications (CMS/HCC) [...] documented as of this encounter Care Teams Miller Helper Relationship Specialty Start Date End Date Zay Bhagat MD [address] [place] [address] PCP - General 05/30/23 documented as of this encounter
--- OUTSIDE RECORDS SUMMARY | 2024-11-15 18:29 | XMS_ITS | Encounter Summary ---
Author Organization [facility] Address [address] [place] [address] Care Team Providers Care Medical Supervisor Name Role Phone Zay Bhagat MD Primary Care Provider Encounter Details Date Type Department Care Team (Late st Contact Info) Description 08/27/2024 Lab Requisition [facility] - Main Lab 299 [facility] [place] [address] Gris Rousseau MD [address] [phone] Type 2 diabetes mellitus without complications (CMS/HCC); [...] URINALYSIS - AUTOMATED METHOD 08/27/2024 10:[address] [facility] WBC, Urine 8.4(H) 0 - 4 /HPF LAB URINALYSIS - AUTOMATED METHOD 08/27/2024 10:[address] [facility] Squamous Epithelial, Urine 48 0 - 60 /LPF LAB URINALYSIS - AUTOMATED METHOD 08/27/2024 10:[address] [facility] Bacteria, Urine Negative Negative /HPF LAB URINALYSIS - AUTOMATED METHOD 08/27/2024 10:[address] [facility] Hyaline Casts, Urine 2.5 0 - 3 /LPF LAB URINALYSIS - AUTOMATED METHOD 08/27/2024 10:[address] [facility] Urine Indwelling urinary catheter / Unknown 08/26/2024 9:00 PM EST 08/27/2024 10:06 AM EST us Gris Rousseau MD LAB URINE ORDERABLES Fin al Result [facility] [address] [place] [address], * (ABNORMAL) Culture urine (08/26/2024 9:00 PM EST) Culture, Urine >100,000 CFU/mL Leclercia adecarboxylata(A) NI 08/29/2024 10:[address] [facility] Comment: This is an edited result. Previous organism was Gram negative bacilli on 08/28/2024 at 1240 EST. Culture, Urine >100,000 CFU/mL Staphylococcus epidermidis(A) NI 08/29/2024 10:11 AM EST [facility] ([facility] Comment: Edited result: Previously reported [...] MICROBIOLOGY - GENER AL ORDERABLES Final Result [facility] ([facility]) [facility] [address] [place] [address], [place] [phone] documented in this encounter Visit Diagnoses Diagnosis Type 2 diabetes mellitus without complications (CMS/HCC) Heart failure, unspecified (CMS/HCC) Heart failure, unspecified documented in this encounter Additional Health Concerns Infection Onset Date Last Indicated Resolved Time Respiratory Rule-Out 11/08/2024 11/08/2024 025 4:47 PM EST Influenza 11/08/2024 11/08/2024 documented as of this encounter Care Teams Medical Supervisor Relationship Specialty Start Date End Date Zay Bhagat MD [address] [place] [address] PCP - General 05/30/23 documented as of this encounter
--- OUTSIDE RECORDS SUMMARY | 2024-11-15 18:29 | XMS_ITS | Encounter Summary ---
Author Organization [facility] Address [address] [place] [address] Care Team Providers Care Picking Supervisor Name Role Phone Zay Bhagat MD Primary Care Provider Encounter Details Date Type Department Care Team (Late st Contact Info) Description 11/08/2024 Lab Requisition [facility] - Main Lab 299 [facility] [place] [address] Gris Rousseau MD [address] [phone] Hematuria, unspecified; Essential (primary) hypertension; Urinary tract [...] hypertension Urinary tract infection, site not specified CULTURE URINE Routine 11/07/2024 11:55 PM EST Hematuria, unspecified Essential (primary) hypertension Urinary tract infection, site not specified documented in this encounter Results * Culture urine (11/07/2024 11:55 PM EST) Pathologist [facility] Culture, Urine <10,000 CFU/mL gram negative bacilli, insignificant count, no further workup 11/09/2024 9:02 AM [facility] Urine Urine specimen obtained by clean catch procedure / Unknown Non-blood Collection / Unknown 11/07/2024 11:55 PM EST 11/08/2024 12:04 PM EST us Gris Rousseau MD LAB MICROBIOLOGY - GENER AL ORDERABLES Final Result [facility] [address] [place] [address], [place] [phone] * (ABNORMAL) Urinalysis with reflex microscopic and culture (11/07/2024 11:55 PM EST) Pathologist [facility] Specific [place] Urine 1.020 1.003 - 1.030 LAB URINALYSIS - AUTOMATED METHOD 11/08/2024 12:04 PM [facility] pH, Urine 6.0 5.0 - 8.0 pH LAB URINALYSIS - AUTOMATED METHOD 11/08/2024 12:04 PM [facility] Leukocytes, Urine Moderate(A) Negative LAB URINALYSIS - AUTOMATED METHOD 11/08/2024 12:04 PM [facility] Nitrite, Urine Negative Negative LAB URINALYSIS - AUTOMATED METHOD 11/08/2024 12:04 PM [facility] Protein, Urine 30(A) <=Trace mg/dL LAB URINALYSIS - AUTOMATED METHOD 11/08/2024 12:04 PM [facility] Glucose, Urine Negative Negative mg/dL LAB URINALYSIS - AUTOMATED METHOD 11/08/2024 12:04 PM [facility] Ketones, Urine Negative Negative mg/dL LAB URINALYSIS - AUTOMATED METHOD 11/08/2024 12:04 PM [facility] Urobilinogen , Urine 0.2 0.2 - 1.0 mg/dL LAB URINALYSIS - AUTOMATED METHOD 11/08/2024 12:04 PM [facility] Bilirubin, Urine Negative Negative LAB URINALYSIS - AUTOMATED METHOD 11/08/2024 12:04 PM [facility] Blood, Urine Large(A) Negative LAB URINALYSIS - AUTOMATED METHOD 11/08/2024 12:04 PM [facility] RBC, Urine >100(H) 0 - 4 /HPF 11/08/2024 12:04 PM [facility] WBC, Urine >100(H) 0 - 4 /HPF 11/08/2024 12:04 PM [facility] Squamous Epithelial, Urine 10 0 - 60 /LPF 11/08/2024 12:04 PM [facility] Bacteria, Urine Moderate(A) Negative /HPF 11/08/2024 12:04 PM [facility] Hyaline Casts, Urine 6(H) 0 - 3 /LPF 11/08/2024 12:04 PM [facility] Urine Urine specimen obtained by clean catch procedure / Unknown Non-blood Collection / Unknown 11/07/2024 11:55 PM EST 11/08/2024 11:12 AM EST us Gris Rousseau MD LAB URINE ORDERABLES Fin al Result [facility] [address] [place] [address], * Daniels urine culture tube (11/07/2024 11:55 PM EST) Extra Tube Hold for add-ons. 11/08/2024 1:[address] [facility] Comment:Auto resulted. Urine Urine specimen obtained by clean catch procedure / Unknown Non-blood Collection / Unknown 11/07/2024 11:55 PM EST 11/08/2024 11:12 AM EST us Gris Rousseau MD LAB URINE ORDERABLES Fin al Result [facility] [address] [place] [address], documented in this encounter Visit Diagnoses Diagnosis Hematuria, unspecified Essential (primary) hypertension Unspecified essential hypertension Urinary tract infection, site not specified documented in this encounter Additional Health Concerns Infection Onset Date Last Indicated Resolved Time Respiratory Rule-Out 11/08/2024 11/08/2024 025 4:47 PM EST Influenza 11/08/2024 11/08/2024 documented as of this encounter Care Teams Picking Supervisor Relationship Specialty Start Date End Date Zay Bhagat MD [address] [place] [address] PCP - General 05/30/23 documented as of this encounter
--- OUTSIDE RECORDS SUMMARY | 2024-11-15 18:29 | XMS_ITS | Encounter Summary ---
Author Organization [facility] Address [address] [place] [address] Care Team Providers Care Fixed Wing Aircraft Flight Mechanic Name Role Phone Zay Bhagat MD Primary Care Provider Encounter Details Date Type Department Care Team (Late st Contact Info) Description 09/06/2024 Lab Requisition [facility] - Main Lab [address] [place] [address] Gris Rousseau MD [address] [address] Essential (primary) hypertension Social History Tobacco Use [...] LAB CHEMISTRY METHOD 09/09/2024 12:37 PM EST [facility] Potassium 4.2 3.5 - 5.5 mmol/L LAB CHEMISTRY METHOD 09/09/2024 12:37 PM [facility] Chloride 100 96 - 110 mmol/L LAB CHEMISTRY METHOD 09/09/2024 12:37 PM [facility] CO2 29 21 - 32 mmol/L LAB CHEMISTRY METHOD 09/09/2024 12:37 PM [facility] Anion Gap 3 3 - 11 LAB CHEMISTRY METHOD 09/09/2024 12:37 PM [facility] Glucose 59(L) 70 - 100 mg/dL LAB CHEMISTRY METHOD 09/09/2024 12:37 PM [facility] BUN 14 5 - 25 mg/dL LAB CHEMISTRY METHOD 09/09/2024 12:37 PM [facility] Creatinine 0.84 0.70 - 1.30 mg/dL LAB CHEMISTRY METHOD 09/09/2024 12:37 PM [facility] eGFR 91 >=60 mL/min/1. 73m2 LAB CHEMISTRY METHOD 09/09/2024 12:37 PM [facility] Comment:Calculation based on the??Chronic Kidney Disease Epidemiology Collaboration (CKD-EPI) equation refit??without adjustment for race. BUN/Creatinine Ratio 16.7 LAB CHEMISTRY METHOD 09/09/2024 12:37 PM [facility] Calcium 9.3 8.5 - 10.5 mg/dL LAB CHEMISTRY METHOD 09/09/2024 12:37 PM [facility] AST (SGOT) 9(L) 10 - 42 unit/L LAB CHEMISTRY METHOD 09/09/2024 12:37 PM [facility] ALT (SGPT) 15 10 - 60 unit/L LAB CHEMISTRY METHOD 09/09/2024 12:37 PM [facility] Alkaline Phosphatase 60 42 - 121 unit/L LAB CHEMISTRY METHOD 09/09/2024 12:37 PM [facility] Total Protein 6.4 6.0 - 8.0 g/dL LAB CHEMISTRY METHOD 09/09/2024 12:37 PM [facility] Albumin 3.2 3.2 - 5.0 g/dL LAB CHEMISTRY METHOD 09/09/2024 12:37 PM [facility] Total Bilirubin 0.5 0.0 - 1.4 mg/dL LAB CHEMISTRY METHOD 09/09/2024 12:37 PM [facility] Blood Venous blood specimen / Unknown Venipuncture / Unknown 09/09/2024 7:06 AM EST 09/09/2024 10:55 AM EST us Gris Rousseau MD LAB BLOOD ORDERABLES Fin al Result [facility] [address] [place] [address], * (ABNORMAL) Complete blood count (09/09/2024 7:06 AM EST) WBC 13.9(H) 4.8 - 10.8 K/mcL LAB HEMETOLOGY METHOD 09/09/2024 11:42 AM [facility] RBC 4.20(L) 4.50 - 5.50 M/mcL LAB HEMETOLOGY METHOD 09/09/2024 11:42 AM [facility] Hemoglobin 12.9(L) 13.5 - 17.5 g/dL LAB HEMETOLOGY METHOD 09/09/2024 11:42 AM [facility] Hematocrit 38.4(L) 42.0 - 54.0 % LAB HEMETOLOGY METHOD 09/09/2024 11:42 AM [facility] MCV 92.3 79.0 - 98.0 FL LAB HEMETOLOGY METHOD 09/09/2024 11:42 AM [facility] MCH 31.0 27.0 - 32.0 pcg LAB HEMETOLOGY METHOD 09/09/2024 11:42 AM EST [facility] MCHC 33.6 32.0 - 37.0 g/dL LAB HEMETOLOGY METHOD 09/09/2024 11:42 AM [facility] RDW 12.9 11.0 - 15.0 % LAB HEMETOLOGY METHOD 09/09/2024 11:42 AM [facility] Platelets 206 130 - 400 K/mcL LAB HEMETOLOGY METHOD 09/09/2024 11:42 AM [facility] MPV 9.8 7.0 - 11.0 FL LAB HEMETOLOGY METHOD 09/09/2024 11:42 AM [facility] NRBC 0.0 <1.0 % LAB HEMETOLOGY METHOD 09/09/2024 11:42 AM [facility] NRBC Absolute 0.00 <0.10 K/mcL LAB HEMETOLOGY METHOD 09/09/2024 11:42 AM [facility] Blood Venous blood specimen / Unknown Venipuncture / Unknown 09/09/2024 7:06 AM EST 09/09/2024 10:55 AM EST us Gris Rousseau MD LAB BLOOD ORDERABLES Fin al Result [facility] [address] [place] [address], documented in this encounter Visit Diagnoses Diagnosis Essential (primary) hypertension Unspecified essential hypertension documented in this encounter Additional Health Concerns Infection Onset Date Last Indicated Resolved Time Respiratory Rule-Out 11/08/2024 11/08/2024 025 4:47 PM EST Influenza 11/08/2024 11/08/2024 documented as of this encounter Care Teams Fixed Wing Aircraft Flight Mechanic Relationship Specialty Start Date End Date Zay Bhagat MD [address] [place] [address] PCP - General 05/30/23 documented as of this encounter
--- OUTSIDE RECORDS SUMMARY | 2024-11-15 18:29 | XMS_ITS | Encounter Summary ---
Author Organization [facility] Address [address] [place] [address] Care Team Providers Care Ribbon Blockmaker Name Role Phone Zay Bhagat MD Primary Care Provider Encounter Details Date Type Department Care Team (Late st Contact Info) Description 11/14/2024 Telephone Adult Medicine [facility] [address] [place] [address] Zay Bhagat MD [address], [place] Social History Tobacco Use Types Packs/Day Years [...] Progress Notes * Fatemeh Flores RN - 11/15/2024 4:20 PM EDT Second attempt, unable to reach the pt, message closed The person you are trying to reach is not accepting calls at this time Unable to LM * Geno Granger RN - 11/14/2024 10:13 AM EDT [phone] (home) [phone] (work) Called number x 2 The person you are trying to reach is not accepting calls,at this time unable to leave a message * Zay Bhagat MD - 11/14/2024 9:30 AM EDT Please schedule patient for hospital discharge follow-up. Patient was admitted at [facility] documented in this encounter Plan of Treatment Not on file documented as of this encounter Visit Diagnoses Not on filedocumented in this encounter Additional Health Concerns Infection Onset Date Last Indicated Resolved Time Influenza 11/08/2024 11/08/2024 documented as of this encounter Care Teams Ribbon Blockmaker Relationship Specialty Start Date End Date Zay Bhagat MD [address] [place] [address] PCP - General 05/30/23 documented as of this encounter
--- OUTSIDE RECORDS SUMMARY | 2024-11-15 18:29 | XMS_ITS | Clinical Summary ---
Author Organization [address] [place] [address] [place] [phone] Phone Care Team Providers Care Management Trainee Program Stores Name Role Phone Zay Bhagat MD Primary Care Provider Allergies Active Allergy Reactions Criticality Noted Date Comments Meperidine 07/25/2023 Medications blood-glucose meter kit Use to test blood sugar 3 times daily. 4 Active CALCIUM CARBONATE ORAL Take by mouth. 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 Alcohol use disorder 06/06/2023 Chronic heart failure with preserved ejection fr action 06/06/2023 Overview (06/06/2024): - Hospitalized at [facility] in April 2023 after a mechanical [...] under SVT section - Echocardiogram during his [place] hospitalization in April 2023 showed moderate, concentric LV hypertrophy with normal cavity size and systolic function, normal regional wall motion with ejection fraction of 55 to 60%, normal RV size and systolic function, dilated aortic root at 4 cm and ascending aorta at 4 cm, no hemodynamically significant valve disease - Subsequently hospitalized at [facility] (records are not scanned into [facility]) in May 2023 6 days after getting [...] Encounters Date Type Department Care Team Description 11/14/2024 Telephone Adult Medicine [address] [phone] Zay Bhagat MD 11/13/[address] [facility] - Main Lab [address] [facility] [address] Loren Rothman, TERESA Essential (primary) hypertension; Type 2 diabetes mellitus without complications (CMS/HCC) 11/08/[address] [facility] Lab [address] [place] [address] Loren Rothman, TERESA Chronic cough 11/08/2024 Lab Requisition [facility] Main Lab [address] [place] [address] Gris Rousseau MD Hematuria, unspecified; Essential (primary) hypertension; Urinary tract infection, site not specified 11/06/2024 Telephone Adult [address] [phone] Zay Bhagat MD hosp f/u 10/04/[address] 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 [address] [place] [address] Gris Rousseau MD Type 2 diabetes mellitus without complications (CMS/HCC) 09/23/2024 Telephone Adult Medicine [address] [phone] Zay Bhagat MD 09/20/2024 Lab Requisition [facility] Main Lab [address] [place] [phone] Gris Rousseau MD Essential (primary) hypertension 09/20/[address] [phone] Zay Bhagat MD Hospital Follow-up 09/13/[address] [facility] [address] [place] [phone] Gris Rousseau MD Essential (primary) hypertension 09/06/[address] [facility] [address] [place] [phone] Gris Rousseau MD Essential (primary) hypertension 08/27/[address] [facility] [address] [place] [phone] Gris Rousseau MD Type 2 diabetes mellitus without complications (CMS/HCC); Heart failure, unspecified (CMS/HCC) 08/16/[address] [facility] [address] [place] [phone] Gris Rousseau MD Heart failure, unspecified (CMS/HCC); Anemia, unspecified; Type 2 diabetes mellitus without complications (CMS/HCC) from Last 3 Months Immunizations Name Administration [...] Comments CARDIAC CATHETERIZATION Done on 04/11/2024 [place] [facility] Indications:Chest tightness w /exertion, recent angina [...] Diabetes: Annual Foot Exam 12/24/2024 12/25/2023 Diabetes: Annual Urine Albumin-Creatinine Ratio (uACR) 03/22/2025 03/22/2024 Diabetes: Blood Sugar Control Test (HGBA1C) 05/16/2025 11/13/2024, 08/19/2024, 03/22/2024, Additional history exists Diabetes: Annual GFR (Glomerular Filtration Rate) 11/13/2025 11/13/2024, 10/02/2024, 09/30/2024, Additional history exists Hypertension/CHF/CAD Annual BMP Blood Test 11/13/2025 11/13/2024, 10/02/2024, 09/30/2024, Additional history exists Cholesterol Screening (Lipid Panel) [...] Procedure Name Priority Date/Time Associated Diagnosis Comments HEMOGLOBIN A1C Routine 11/13/2024 8:04 AM EDT Essential (primary) hypertension Type 2 diabetes mellitus without complications (CMS/HCC) BASIC METABOLIC PANEL Routine 11/13/2024 8:04 AM EDT Essential (primary) hypertension Type 2 diabetes mellitus without complications (CMS/HCC) COMPLETE BLOOD COUNT Routine 11/13/2024 8:04 AM EDT Essential (primary) hypertension Type 2 diabetes mellitus without complications (CMS/HCC) [id number], RSV, FLU A AND B QUALITATIVE RT-PCR, [...] PANEL Routine 10/02/2024 4:52 AM EST Other shelter (current) drug therapy COMPREHENSIVE METABOLIC PANEL Routine [...] Type 2 diabetes mellitus without complications (CMS/HCC) HM URINE ALBUMIN CREATININE RATIO Routine 03/22/2024 LIPID PANEL Routine 03/22/2024 HM COLONOSCOPY Routine 02/29/2024 HM DIABETES FOOT EXAM Routine 12/25/2023 US ABDOMINAL AORTA REAL TIME SCREEN STUDY AAA Routine 09/29/2023 9:30 AM EST Encounter for screening for cardiovascular disorders from Last 3 Months or Most Recently Relevant to Health Maintenance Results * (ABNORMAL) Complete blood count (11/13/2024 8:04 AM EDT) Only the most recent of6 resultswithin the time period is included. WBC 5.7 4.8 - 10.8 K/mcL LAB [facility] RBC 4.00(L) 4.50 - 5.50 M/mcL LAB HEMETOLOGY METHOD 11/13/2024 12:18 PM [facility] Hemoglobin 11.5(L) 13.5 - 17.5 g/dL LAB HEMETOLOGY METHOD [facility] Hematocrit 35.7(L) 42.0 - 54.0 % LAB HEMETOLOGY METHOD 11/13/2024 12:18 PM [facility] MCV 88.8 79.0 - 98.0 FL LAB HEMETOLOGY METHOD 11/13/2024 12:18 PM [facility] MCH 28.6 27.0 - 32.0 pcg LAB HEMETOLOGY METHOD 11/13[facility]24 [facility] MCHC 32.2 32.0 - 37.0 g/dL LAB HEMETOLOGY METHOD 11/13/2024 12:18 PM [facility] RDW 14.4 11.0 - 15.0 % LAB HEMETOLOGY METHOD 11/13/2024 12:18 PM [facility] Platelets 201 130 - 400 K/mcL LAB HEMETOLOGY METHOD 11/13/2024 12:[address] [facility] MPV 9.8 7.0 - 11.0 FL LAB HEMETOLOGY METHOD 11/13/2024 12:[address] [facility] NRBC 0.0 <1.0 % LAB HEMETOLOGY METHOD 11/13/2024 12:[address] [facility] NRBC Absolute 0.00 <0.10 K/mcL LAB HEMETOLOGY METHOD 11/13/2024 12:[address] [facility] Blood Venous blood specimen / Unknown Venipuncture / Unknown 11/13/2024 8:04 AM EDT 11/13/2024 10:43 AM [facility] Final Resul t Performing Organization Address City/[facility]/ZIP Co de Phone Number [facility] [address] [place] [address], [place] [phone] * (ABNORMAL) Hemoglobin A1c (11/13/2024 8:04 AM EDT) Only the most recent of2 resultswithin the time period is included. Hemoglobin A1C 6.6(H) <6.5 % LAB CHEMISTRY METHOD 11/13/2024 2:[address] [facility] Mean Bld Glu Estim. 143 mg/dL LAB CHEMISTRY METHOD 11/13/2024 2:[address] [facility] Blood Venous blood specimen / Unknown Venipuncture / Unknown 11/13/2024 8:04 AM EDT 11/13/2024 10:43 AM EDT us [facility] [place] [facility] LAB BLOOD ORDERABLES Final Resul t [facility] [address] [place] [address], [place] [phone] * (ABNORMAL) Basic metabolic panel (11/13/2024 8:04 AM EDT) Sodium 143 133 - 145 mmol/L LAB CHEMISTRY METHOD 11/13/2024 1:01 PM [facility] Potassium 3.9 3.5 - 5.5 mmol/L LAB CHEMISTRY METHOD 11/13/2024 1:01 PM [facility] Chloride 109 96 - 110 mmol/L LAB CHEMISTRY METHOD 11/13/2024 1:01 PM [facility] CO2 23 21 - 32 mmol/L LAB CHEMISTRY METHOD 11/13/2024 1:01 PM [facility] Anion Gap 11 3 - 11 LAB CHEMISTRY METHOD 11/13/2024 1:01 PM [facility] Glucose 154(H) 70 - 100 mg/dL LAB CHEMISTRY METHOD 11/13/2024 1:01 PM [facility] BUN 15 5 - 25 mg/dL LAB CHEMISTRY METHOD 11/13/2024 1:01 PM [facility] Creatinine 0.95 0.70 - 1.30 mg/dL LAB CHEMISTRY METHOD 11/13/2024 1:01 PM [facility] eGFR 83 >=60 mL/min/1. 73m2 LAB CHEMISTRY METHOD 11/13/2024 1:01 PM [facility] Comment:Calculation based on the??Chronic Kidney Disease Epidemiology Collaboration (CKD-EPI) equation refit??without adjustment for race. BUN/Creatinine Ratio 15.8 LAB CHEMISTRY METHOD 11/13/2024 1:01 PM [facility] Calcium 8.9 8.5 - 10.5 mg/dL LAB CHEMISTRY METHOD 11/13/2024 1:01 PM [facility] Blood Venous blood specimen / Unknown Venipuncture / Unknown 11/13/2024 8:04 AM EDT 11/13/2024 10:43 AM EDT Loren Rothman NP LAB BLOOD ORDERABLES Final Resul t [facility] [address] [place] [address], * (ABNORMAL) [id number], RSV, Influenza A and B qualitative RT-PCR (11/08/2024 12:00 AM EST) SARS COV-2 Not Detected Not Detected LAB MOLECULAR DIAGNOSTICS METHOD 11/08/2024 4:47 PM [facility] Comment: Disclaimer: The manner in which this information is used to guide patient care is the responsibility of the healthcare provider. Testing was performed using the [employer] m SARS-CoV-2 test. This test has [...] for Healthcare Providers can be found at: https://www.fda.gov/media/831908/download Fact sheet for Patients can be found at: https://www.fda.gov/media/701575/download Influenza A PCR Detected(A ) Not Detected LAB MOLECULAR DIAGNOSTICS METHOD 11/08/2024 4:47 PM [facility] Comment:This patient is posi tive for influenza A. If the patient is admitted, please order the Respiratory Virus Panel PCR (Epic ID: [id number]) so our lab can subtype the influenza A, per CDC recommendations. Influenza B PCR Not Detected Not Detected LAB MOLECULAR DIAGNOSTICS METHOD 11/08/2024 4:47 PM [facility] RSV PCR Not Detected Not Detected LAB MOLECULAR DIAGNOSTICS METHOD 11/08/2024 4:47 PM [facility] Swab Nasopharyngeal structure / Unknown Non-blood Collection / Unknown 11/08/2024 11/08/2024 2:14 PM EST us Loren Rothman [facility] LAB MICROBIOLOGY - GENERAL ORDER BRANDIE Final Result [facility] [address] [place] [address], [place] [phone] * (ABNORMAL) Urinalysis with reflex microscopic and culture (11/07/2024 11:55 PM EST) Specific [place] Urine 1.020 1.003 - 1.030 LAB URINALYSIS - AUTOMATED METHOD 11/08/2024 12:04 PM [facility] pH, Urine 6.0 5.0 - 8.0 pH LAB URINALYSIS - AUTOMATED METHOD 11/08/2024 12:04 PM [facility] Leukocytes, Urine Moderate(A) Negative LAB URINALYSIS - AUTOMATED METHOD 11/08/2024 12:04 PM [facility] Nitrite, Urine Negative Negative LAB URINALYSIS - AUTOMATED METHOD 11/08/2024 12:04 PM [facility] Protein, Urine 30(A) <=Trace mg/dL LAB URINALYSIS - AUTOMATED METHOD 11/08/2024 12:04 PM [facility] Glucose, Urine Negative Negative mg/dL LAB URINALYSIS - AUTOMATED METHOD 11/08/2024 12:04 PM [facility] Ketones, Urine Negative Negative mg/dL LAB URINALYSIS - AUTOMATED METHOD 11/08/2024 12:04 PM [facility] Urobilinogen , Urine 0.2 0.2 - 1.0 mg/dL LAB URINALYSIS - AUTOMATED METHOD 11/08/2024 12:04 PM [facility] Bilirubin, Urine Negative Negative LAB URINALYSIS - AUTOMATED METHOD 11/08/2024 12:04 PM [facility] Blood, Urine Large(A) Negative LAB URINALYSIS - AUTOMATED METHOD 11/08/2024 12:04 PM [facility] RBC, Urine >100(H) 0 - 4 /HPF 11/08/2024 12:04 PM [facility] WBC, Urine >100(H) 0 - 4 /HPF 11/08/2024 12:04 PM [facility] Squamous Epithelial, Urine 10 0 - 60 /LPF 11/08/2024 12:04 PM [facility] Bacteria, Urine Moderate(A) Negative /HPF 11/08/2024 12:04 PM [facility] Hyaline Casts, Urine 6(H) 0 - 3 /LPF 11/08/2024 12:04 PM [facility] Urine Urine specimen obtained by clean catch procedure / Unknown Non-blood Collection / Unknown 11/07/2024 11:55 PM EST 11/08/2024 11:12 AM EST Gris Rousseau MD LAB URINE ORDERABLES Fin al Result Performing Organization Address City/[facility]/ZIP Co de Phone Number [facility] [address] [place] [address], [place] [phone] * Daniels urine culture tube (11/07/2024 11:55 PM EST) Extra Tube Hold for add-ons. 11/08/2024 1:01 PM [facility] Comment:Auto resulted. Urine Urine specimen obtained by clean catch procedure / Unknown Non-blood Collection / Unknown 11/07/2024 11:55 PM EST 11/08/2024 11:12 AM EST Gris Rousseau MD LAB URINE ORDERABLES Fin al Result Performing Organization Address [facility]/ZIP Co de Phone Number [facility] [address] [place] [address], [place] [phone] * Culture urine (11/07/2024 11:55 PM EST) Only the most recent of2 resultswithin the time period is included. Pathologist [facility] Culture, Urine <10,000 CFU/mL gram negative bacilli, insignificant count, no further workup 11/09/2024 9:[address] [facility] Urine Urine specimen obtained by clean catch procedure / Unknown Non-blood Collection / Unknown 11/07/2024 11:55 PM EST 11/08/2024 12:04 PM EST us Gris Rousseau MD LAB MICROBIOLOGY - GENER AL ORDERABLES Final Result [facility] [address] [place] [address], [place] [phone] * (ABNORMAL) Comprehensive metabolic panel (10/02/2024 4:52 AM EST) Only the most recent of6 resultswithin the time period is included. [facility] Sodium 126(L) 133 - 145 mmol/L LAB CHEMISTRY METHOD 10/02/2024 12:38 PM [facility] Potassium 5.1 3.5 - 5.5 mmol/L LAB CHEMISTRY METHOD 10/02/2024 12:38 PM [facility] Chloride 92(L) 96 - 110 mmol/L LAB CHEMISTRY METHOD 10/02/2024 12:38 PM [facility] CO2 27 21 - 32 mmol/L LAB CHEMISTRY METHOD 10/02/2024 12:38 PM [facility] Anion Gap 7 3 - 11 LAB CHEMISTRY METHOD 10/02/2024 12:38 PM [facility] Glucose 80 70 - 100 mg/dL LAB CHEMISTRY METHOD 10/02/2024 12:38 PM [facility] BUN 17 5 - 25 mg/dL LAB CHEMISTRY METHOD 10/02/2024 12:38 PM [facility] Creatinine 0.84 0.70 - 1.30 mg/dL LAB CHEMISTRY METHOD 10/02/2024 12:38 PM [facility] eGFR 91 >=60 mL/min/1. 73m2 LAB CHEMISTRY METHOD 10/02/2024 12:38 PM [facility] Comment:Calculation based on the??Chronic Kidney Disease Epidemiology Collaboration (CKD-EPI) equation refit??without adjustment for race. BUN/Creatinine Ratio 20.2 LAB CHEMISTRY METHOD 10/02/2024 12:38 PM [facility] Calcium 9.4 8.5 - 10.5 mg/dL LAB CHEMISTRY METHOD 10/02/2024 12:38 PM [facility] AST (SGOT) 16 10 - 42 unit/L LAB CHEMISTRY METHOD 10/02/2024 12:38 PM [facility] ALT (SGPT) 22 10 - 60 unit/L LAB CHEMISTRY METHOD 10/02/2024 12:38 PM [facility] Alkaline Phosphatase 57 42 - 121 unit/L LAB CHEMISTRY METHOD 10/02/2024 12:38 PM [facility] Total Protein 6.7 6.0 - 8.0 g/dL LAB CHEMISTRY METHOD 10/02/2024 12:38 PM [facility] Albumin 3.6 3.2 - 5.0 g/dL LAB CHEMISTRY METHOD 10/02/2024 12:38 PM [facility] Total Bilirubin 0.5 0.0 - 1.4 mg/dL LAB CHEMISTRY METHOD 10/02/2024 12:38 PM [facility] Blood Venous blood specimen / Unknown Venipuncture / Unknown 10/02/2024 4:52 AM EST 10/02/2024 10:40 AM EST us Benjamin Gaytan MD LAB BLOOD ORDERABLES Final Resu lt [facility] [address] [place] [address], [place] [phone] * (ABNORMAL) Urinalysis microscopic only (08/26/2024 9:00 PM EST) [facility] RBC, Urine 1.8 0 - 4 /HPF LAB URINALYSIS - AUTOMATED METHOD 08/27/2024 10:31 AM [facility] WBC, Urine 8.4(H) 0 - 4 /HPF LAB URINALYSIS - AUTOMATED METHOD 08/27/2024 10:31 AM [facility] Squamous Epithelial, Urine 48 0 - 60 /LPF LAB URINALYSIS - AUTOMATED METHOD 08/27/2024 10:31 AM [facility] Bacteria, Urine Negative Negative /HPF LAB URINALYSIS - AUTOMATED METHOD 08/27/2024 10:31 AM [facility] Hyaline Casts, Urine 2.5 0 - 3 /LPF LAB URINALYSIS - AUTOMATED METHOD 08/27/2024 10:31 AM [facility] Urine Indwelling urinary catheter / Unknown 08/26/2024 9:00 PM EST 08/27/2024 10:06 AM EST Gris Rousseau MD LAB URINE ORDERABLES Fin al Result [facility] [address] [place] [address], * Urine Albumin Creatinine Ratio (03/22/2024) [facility] Urine Albumin Creatinine Ratio abstracted Historical Provider HEALTH MAINTENANCE Final Result * Lipid panel (03/22/2024) [facility] LDL/HDL Ratio 2 0 - 4 Triglycerides 76 0 - 150 mg/dL Cholesterol 84 0 - 200 mg/dL HDL 45 >=40 mg/dL LDL Cholesterol 24 0 - 100 mg/dL Blood Venous blood specimen / Unknown Historical Provider MD LAB BLOOD ORDERABLES Tonia l Result * Colonoscopy (02/29/2024) Colonoscopy no interpreta tion,abstr acted Anatomical Region Laterality Modality Other Historical Provider MD HEALTH MAINTENANCE Final Result * Diabetes Foot Exam (12/25/2023) Diabetes: Annual Foot Exam abstracted Historical Provider MD HEALTH MAINTENANCE Final Result * ABDOMINAL AORTA REAL TIME SCREEN STUDY AAA [...] cm IMPRESSION: IMPRESSION: No abdominal aortic aneurysm. Samanta BRYANT US PROCEDURES Final Result from Last 3 Months or Most Recently Relevant to Health Maintenance Additional Health Concerns Infection Onset Date Last Indicated Influenza 11/08/2024 11/08/2024 Insurance [employer] MEDICARE ADVANTAGE Care Teams Management Trainee Program Stores Relationship Specialty Start Date End Date Zay Bhagat MD [address] [place] [address] PCP - General 05/30/23
--- OUTSIDE RECORDS SUMMARY | 2024-11-15 18:29 | XMS_ITS | Encounter Summary ---
Author Organization [facility] Address [address] [place] [address] Care Team Providers Care Application Coordinator Name Role Phone Zay Bhagat MD Primary Care Provider Encounter Details Date Type Department Care Team (Late st Contact Info) Description 09/20/2024 Lab Requisition [facility] - Main Lab [address] [facility] [place] [address] Gris Rousseau MD [address] [address] Essential (primary) hypertension Social History Tobacco Use [...] documented as of this encounter Care Teams Application Coordinator Relationship Specialty Start Date End Date Zay Bhagat MD [address] [place] [address] PCP - General 05/30/23 documented as of this encounter
--- OUTSIDE RECORDS SUMMARY | 2024-11-15 18:29 | XMS_ITS | Encounter Summary ---
Author Organization [facility] Address [address] [place] [address] Care Team Providers Care Drama Teacher Name Role Phone Zay Bhagat MD Primary Care Provider Encounter Details Date Type Department Care Team (Late st Contact Info) Description 08/16/2024 Lab Requisition [facility] - Main Lab [address] [facility] [place] [address] Gris Rousseau MD [address] [phone] Heart failure, unspecified (CMS/HCC); Anemia, unspecified; Type [...] unspecified Type 2 diabetes mellitus without complications ([facility]/HCC) documented in this encounter Results * Hemoglobin A1c (08/19/2024 9:22 AM EST) Pathologist [facility] Hemoglobin A1C 6.1 <6.5 % LAB CHEMISTRY METHOD 08/19/2024 2:45 PM EST [facility] Mean Bld Glu Estim. 128 mg/dL LAB CHEMISTRY METHOD 08/19/2024 2:45 PM [facility] Blood Venous blood specimen / Unknown Venipuncture / Unknown 08/19/2024 9:22 AM EST 08/19/2024 12:07 PM EST us Gris Rousseau MD LAB BLOOD ORDERABLES Fin al Result [facility] [address] [place] [address], * (ABNORMAL) Comprehensive metabolic panel (08/19/2024 9:22 AM EST) Pathologist [facility] Sodium 135 133 - 145 mmol/L LAB CHEMISTRY METHOD 08/19/2024 5:30 PM [facility] Potassium 4.7 3.5 - 5.5 mmol/L LAB CHEMISTRY METHOD 08/19/2024 5:30 PM [facility] Chloride 101 96 - 110 mmol/L LAB CHEMISTRY METHOD 08/19/2024 5:30 PM [facility] CO2 26 21 - 32 mmol/L LAB CHEMISTRY METHOD 08/19/2024 5:30 PM [facility] Anion Gap 8 3 - 11 LAB CHEMISTRY METHOD 08/19/2024 5:30 PM [facility] Glucose 272(H) 70 - 100 mg/dL LAB CHEMISTRY METHOD 08/19/2024 5:30 PM [facility] BUN 13 5 - 25 mg/dL LAB CHEMISTRY METHOD 08/19/2024 5:30 PM [facility] Creatinine 0.94 0.70 - 1.30 mg/dL LAB CHEMISTRY METHOD 08/19/2024 5:30 PM [facility] eGFR 85 >=60 mL/min/1. 73m2 LAB CHEMISTRY METHOD 08/19/2024 5:30 PM [facility] Comment:Calculation based on the??Chronic Kidney Disease Epidemiology Collaboration (CKD-EPI) equation refit??without adjustment for race. BUN/Creatinine Ratio 13.8 LAB CHEMISTRY METHOD 08/19/2024 5:30 PM [facility] Calcium 9.4 8.5 - 10.5 mg/dL LAB CHEMISTRY METHOD 08/19/2024 5:30 PM [facility] AST (SGOT) 19 10 - 42 unit/L LAB CHEMISTRY METHOD 08/19/2024 5:30 PM [facility] ALT (SGPT) 25 10 - 60 unit/L LAB CHEMISTRY METHOD 08/19/2024 5:30 PM [facility] Alkaline Phosphatase 58 42 - 121 unit/L LAB CHEMISTRY METHOD 08/19/2024 5:30 PM [facility] Total Protein 6.3 6.0 - 8.0 g/dL LAB CHEMISTRY METHOD 08/19/2024 5:30 PM [facility] Albumin 3.4 3.2 - 5.0 g/dL LAB CHEMISTRY METHOD 08/19/2024 5:30 PM [facility] Total Bilirubin 0.4 0.0 - 1.4 mg/dL LAB CHEMISTRY METHOD 08/19/2024 5:30 PM [facility] Blood Venous blood specimen / Unknown Venipuncture / Unknown 08/19/2024 9:22 AM EST 08/19/2024 12:09 PM EST us Gris Rousseau MD LAB BLOOD ORDERABLES Fin al Result [facility] [address] [place] [address], * (ABNORMAL) Complete blood count (08/19/2024 9:22 AM EST) [facility] WBC 6.0 4.8 - 10.8 K/mcL LAB HEMETOLOGY METHOD 08/19/2024 12:53 PM EST [facility] RBC 4.10(L) 4.50 - 5.50 M/mcL LAB HEMETOLOGY METHOD 08/19/2024 12:53 PM EST [facility] Hemoglobin 12.7(L) 13.5 - 17.5 g/dL LAB HEMETOLOGY METHOD 08/19/2024 12:53 PM [facility] Hematocrit 38.2(L) 42.0 - 54.0 % [...] K/mcL LAB HEMETOLOGY METHOD 08/19/2024 12:53 PM [facility] MPV 9.5 7.0 - [...] MD LAB BLOOD ORDERABLES Fin al Result [facility] [address] [place] [address], documented in this encounter Visit Diagnoses Diagnosis Heart failure, unspecified (CMS/HCC) Heart failure, unspecified Anemia, unspecified Type 2 diabetes mellitus without complications (CMS/HCC) documented in this encounter Additional Health Concerns Infection Onset Date Last Indicated Resolved Time Respiratory Rule-Out 11/08/2024 11/08/2024 025 4:47 PM EST Influenza 11/08/2024 11/08/2024 documented as of this encounter Care Teams Drama Teacher Relationship Specialty Start Date End Date Zay Bhagat MD [address] [place] [address] PCP - General 05/30/23 documented as of this encounter
--- OUTSIDE RECORDS SUMMARY | 2024-11-15 18:29 | XMS_ITS | Encounter Summary ---
Author Organization [facility] Address [address] [place] [address] Care Team Providers Care Basket Bottom Machine Operator Name Role Phone Zay Bhagat MD Primary Care Provider Encounter Details Date Type Department Care Team (Late st Contact Info) Description 09/13/2024 Lab Requisition [facility] - Main Lab [address] [place] [address] Gris Rousseau MD [address] [address] Essential (primary) hypertension Social History Tobacco Use [...] LAB CHEMISTRY METHOD 09/16/2024 11:01 AM EST [facility] Potassium 4.1 3.5 - 5.5 mmol/L LAB CHEMISTRY METHOD 09/16/2024 11:01 AM [facility] Chloride 102 96 - 110 mmol/L LAB CHEMISTRY METHOD 09/16/2024 11:01 AM [facility] CO2 29 21 - 32 mmol/L LAB CHEMISTRY METHOD 09/16/2024 11:01 AM [facility] Anion Gap 6 3 - 11 LAB CHEMISTRY METHOD 09/16/2024 11:01 AM [facility] Glucose 68(L) 70 - 100 mg/dL LAB CHEMISTRY METHOD 09/16/2024 11:01 AM [facility] BUN 19 5 - 25 mg/dL LAB CHEMISTRY METHOD 09/16/2024 11:01 AM [facility] Creatinine 0.86 0.70 - 1.30 mg/dL LAB CHEMISTRY METHOD 09/16/2024 11:01 AM [facility] eGFR 90 >=60 mL/min/1. 73m2 LAB CHEMISTRY METHOD 09/16/2024 11:01 AM [facility] Comment:Calculation based on the??Chronic Kidney Disease Epidemiology Collaboration (CKD-EPI) equation refit??without adjustment for race. BUN/Creatinine Ratio 22.1 LAB CHEMISTRY METHOD 09/16/2024 11:01 AM [facility] Calcium 9.7 8.5 - 10.5 mg/dL LAB CHEMISTRY METHOD 09/16/2024 11:01 AM [facility] AST (SGOT) 14 10 - 42 unit/L LAB CHEMISTRY METHOD 09/16/2024 11:01 AM [facility] ALT (SGPT) 20 10 - 60 unit/L LAB CHEMISTRY METHOD 09/16/2024 11:01 AM [facility] Alkaline Phosphatase 70 42 - 121 unit/L LAB CHEMISTRY METHOD 09/16/2024 11:01 AM [facility] Total Protein 7.4 6.0 - 8.0 g/dL LAB CHEMISTRY METHOD 09/16/2024 11:01 AM [facility] Albumin 3.6 3.2 - 5.0 g/dL LAB CHEMISTRY METHOD 09/16/2024 11:01 AM [facility] Total Bilirubin 0.4 0.0 - 1.4 mg/dL LAB CHEMISTRY METHOD 09/16/2024 11:01 AM [facility] Blood Venous blood specimen / Unknown Venipuncture / Unknown 09/16/2024 7:12 AM EST 09/16/2024 9:34 AM EST us Gris Rousseau MD LAB BLOOD ORDERABLES Fin al Result [facility] [address] [place] [address], [place] [phone] * (ABNORMAL) Complete blood count (09/16/2024 7:12 AM EST) WBC 8.7 4.8 - 10.8 K/mcL LAB HEMETOLOGY METHOD 09/16/2024 10:30 AM [facility] RBC 4.50 4.50 - 5.50 [facility] LAB HEMETOLOGY METHOD 09/16/2024 10:30 AM [facility] Hemoglobin 13.8 13.5 - 17.5 g/dL LAB HEMETOLOGY METHOD 09/16/2024 10:30 AM [facility] Hematocrit 41.5(L) 42.0 - 54.0 % LAB HEMETOLOGY METHOD 09/16/2024 10:30 AM [facility] MCV 91.4 79.0 - 98.0 FL LAB HEMETOLOGY METHOD 09/16/2024 10:30 AM [facility] MCH 30.4 27.0 - 32.0 pcg LAB HEMETOLOGY METHOD 09/16/2024 10:30 AM [facility] MCHC 33.3 32.0 - 37.0 g/dL LAB HEMETOLOGY METHOD 09/16/2024 10:30 AM EST [facility] RDW 12.2 11.0 - 15.0 % LAB HEMETOLOGY METHOD 09/16/2024 10:30 AM [facility] Platelets 351 130 - 400 K/mcL LAB HEMETOLOGY METHOD 09/16/2024 10:30 AM EST [facility] MPV 8.9 7.0 - 11.0 FL LAB HEMETOLOGY METHOD 09/16/2024 10:30 AM EST [facility] NRBC 0.0 <1.0 % LAB HEMETOLOGY METHOD 09/16/2024 10:30 AM [facility] NRBC Absolute 0.00 <0.10 K/mcL LAB HEMETOLOGY METHOD 09/16/2024 10:30 AM [facility] Blood Venous blood specimen / Unknown Venipuncture / Unknown 09/16/2024 7:12 AM EST 09/16/2024 9:36 AM EST Gris Rousseau MD LAB BLOOD ORDERABLES Fin al Result [facility] [address] [place] [address], documented in this encounter Visit Diagnoses Diagnosis Essential (primary) hypertension Unspecified essential hypertension documented in this encounter Additional Health Concerns Infection Onset Date Last Indicated Resolved Time Respiratory Rule-Out 11/08/2024 11/08/2024 025 4:47 PM EST Influenza 11/08/2024 11/08/2024 documented as of this encounter Care Teams Basket Bottom Machine Operator Relationship Specialty Start Date End Date Zay Bhagat MD [address] [place] [address] PCP - General 05/30/23 documented as of this encounter
--- OUTSIDE RECORDS SUMMARY | 2024-11-15 18:29 | XMS_ITS | Encounter Summary ---
Author Organization [facility] Address [address] [place] [address] Care Team Providers Care Wash Driller Helper Name Role Phone Zay Bhagat MD Primary Care Provider Reason for Visit * Reason Onset Date Comments hosp f/u 11/06/2024 Encounter Details Date Type Department Care Team ([facility] st Contact Info) Description 11/06/2024 Telephone Adult Medicine [facility] [address] [place], [place] [phone] Zay Bhagat MD [address] [place] [address] hosp f/u Social History Tobacco Use Types [...] Progress Notes * Fatemeh Flores RN - 11/12/2024 1:17 PM EDT Second attempt, unable to reach the pt, message closed Left vm for pt to return my call. * Fatemeh Flores RN - 11/06/2024 8:33 AM EST Left vm for pt to return my call. * Zay Bhagat MD - 11/06/2024 7:56 AM EST Please schedule pt for hosp dc follow up. Was admitted at [facility]. documented in this encounter Plan of Treatment Not on file documented as of this encounter Visit Diagnoses Not on filedocumented in this encounter Additional Health Concerns Infection Onset Date Last Indicated Resolved Time Respiratory Rule-Out 11/08/2024 11/08/2024 025 4:47 PM EST Influenza 11/08/2024 11/08/2024 documented as of this encounter Care Teams Wash Driller Helper Relationship Specialty Start Date End Date Zay Bhagat MD [address] [place] [address] PCP - General 05/30/23 documented as of this encounter
--- OUTSIDE RECORDS SUMMARY | 2024-11-15 18:29 | XMS_ITS | Encounter Summary ---
Author Organization [facility] Address [address] [place] [address] Care Team Providers Care Technical Spec Name Role Phone Zay Bhagat MD Primary Care Provider Encounter Details Date Type Department Care Team (Latest Contact Info) Description 11/13/2024 Lab Requisition [facility] - Main Lab [address] [facility] [place] [phone] Loren Rothman NP [address] [place] [address] Essential (primary) hypertension; Type 2 diabetes mellitus [...] Associated Diagnosis Comments COMPLETE BLOOD COUNT Routine 11/13/2024 8:04 AM EDT Essential (primary) hypertension Type 2 diabetes mellitus without complications (CMS/HCC) HEMOGLOBIN A1C Routine 11/13/2024 8:04 AM EDT Essential (primary) hypertension Type 2 diabetes mellitus without complications (CMS/HCC) BASIC METABOLIC PANEL Routine 11/13/2024 8:04 AM EDT Essential (primary) hypertension Type 2 diabetes mellitus without complications (CMS/HCC) documented in this encounter Results * (ABNORMAL) Hemoglobin A1c (11/13/2024 8:04 AM EDT) [facility] Hemoglobin A1C 6.6(H) <6.5 % LAB CHEMISTRY METHOD 11/13/2024 2:04 PM T [facility] Mean Bld Glu Estim. 143 mg/dL LAB CHEMISTRY METHOD 11/13/2024 2:04 PM [facility] Blood Venous blood specimen / Unknown Venipuncture / Unknown 11/13/2024 8:04 AM EDT 11/13/2024 10:43 AM EDT us Loren Rothman PACKAGING INSPECTOR LAB BLOOD ORDERABLES Final Resul t [facility] [address] [place] [address], * (ABNORMAL) Basic metabolic panel (11/13/2024 8:04 AM EDT) [facility] Sodium 143 133 - 145 mmol/L LAB CHEMISTRY METHOD 11/13/2024 1:01 PM [facility] Potassium 3.9 3.5 - 5.5 mmol/L LAB CHEMISTRY METHOD 11/13/2024 1:01 PM [facility] Chloride 109 96 - 110 mmol/L LAB CHEMISTRY METHOD 11/13/2024 1:01 PM [facility] CO2 23 21 - 32 mmol/L LAB CHEMISTRY METHOD 11/13/2024 1:01 PM [facility] Anion Gap 11 3 - 11 LAB CHEMISTRY METHOD 11/13/2024 1:01 PM [facility] Glucose 154(H) 70 - 100 mg/dL LAB CHEMISTRY METHOD 11/13/2024 1:01 PM [facility] BUN 15 5 - 25 mg/dL LAB CHEMISTRY METHOD 11/13/2024 1:01 PM [facility] Creatinine 0.95 0.70 - 1.30 mg/dL LAB CHEMISTRY METHOD 11/13/2024 1:01 PM EDT [facility] eGFR 83 >=60 mL/min/1. 73m2 LAB CHEMISTRY METHOD 11/13/2024 1:01 PM EDT [facility] Comment:Calculation based on the??Chronic Kidney Disease Epidemiology Collaboration (CKD-EPI) equation refit??without adjustment for race. BUN/Creatinine Ratio 15.8 LAB CHEMISTRY METHOD 11/13/2024 1:01 PM EDT [facility] Calcium 8.9 8.5 - 10.5 mg/dL LAB CHEMISTRY METHOD 11/13/2024 1:01 PM EDT [facility] Blood Venous blood specimen / Unknown Venipuncture / Unknown 11/13/2024 8:04 AM EDT 11/13/2024 10:43 AM EDT Loren Rothman PACKAGING INSPECTOR LAB BLOOD ORDERABLES Final Resul t [facility] [address] [place] [address], * (ABNORMAL) Complete blood count (11/13/2024 8:04 AM EDT) WBC 5.7 4.8 - 10.8 K/mcL LAB HEMETOLOGY METHOD 11/13/2024 12:18 PM [facility] RBC 4.00(L) 4.50 - 5.50 M/mcL LAB HEMETOLOGY METHOD 11[facility]13[facility]24 [facility] Hemoglobin 11.5(L) 13.5 - 17.5 g/dL LAB HEMETOLOGY METHOD 11/13/2024 12:18 PM [facility] Hematocrit 35.7(L) 42.0 - 54.0 % LAB HEMETOLOGY METHOD 11/13/2024 12:18 PM EDT [facility] MCV 88.8 79.0 - 98.0 FL LAB HEMETOLOGY METHOD 11/13/2024 12:18 PM EDT [facility] MCH 28.6 27.0 - 32.0 pcg LAB HEMETOLOGY METHOD 11/13/2024 12:18 PM EDT [facility] MCHC 32.2 32.0 - 37.0 g/dL LAB HEMETOLOGY METHOD 11/13/2024 12:18 PM EDT [facility] RDW 14.4 11.0 - 15.0 % LAB HEMETOLOGY METHOD 11/13/2024 12:18 PM EDT [facility] Platelets 201 130 - 400 K/mcL LAB HEMETOLOGY METHOD 11/13/2024 12:18 PM EDT [facility] MPV 9.8 7.0 - 11.0 FL LAB HEMETOLOGY METHOD 11/13/2024 12:18 PM EDT [facility] NRBC 0.0 <1.0 % LAB HEMETOLOGY METHOD 11/13/2024 12:18 PM EDT [facility] NRBC Absolute 0.00 <0.10 K/mcL LAB HEMETOLOGY METHOD 11/13/2024 12:18 PM EDT [facility] Blood Venous blood specimen / Unknown Venipuncture / Unknown 11/13/2024 8:04 AM EDT 11/13/2024 10:43 AM EDT Loren Rothman NP LAB BLOOD ORDERABLES Final Resul t [facility] [address] [place] [address], documented in this encounter Visit Diagnoses Diagnosis Essential (primary) hypertension Unspecified essential hypertension Type 2 diabetes mellitus without complications (CMS/HCC) documented in this encounter Additional Health Concerns Infection Onset Date Last Indicated Resolved Time Influenza 11/08/2024 11/08/2024 documented as of this encounter Care Teams Technical Spec Relationship Specialty Start Date End Date Zay Bhagat MD [address] [place] [address] PCP - General 05/30/23 documented as of this encounter
[2024-11-15 18:40] LABS: MANUAL DIFF FLAG NO
[2024-11-15 18:41] LABS: Basophils Percent Auto 0.1 % (0-2); Hematocrit 33.5 % (42.0-52.0); Hemoglobin 11.4 g/dl (14.0-18.0); Imm Gran Abs Auto 0.03 X10*3/uL (0.00-0.03); Imm Gran Pct Auto 0.4 % (0.0-0.4); Lymphocytes Absolute Auto 0.7 X10*3/uL (1.2-4.9); Lymphocytes Percent Auto 9.2 % (20-40); Mean Corpuscular Hemoglobin 28.6 pg (27.0-33.0); Mean Platelet Volume 9.1 fL (9.4-12.4); Monocytes Absolute Auto 0.1 X10*3/uL (0.1-1.2); Monocytes Percent Auto 1.3 % (2-11); Neutrophils Absolute Auto 6.6 x10*3/uL (2.0-8.3); Platelet Count 237 X10*3/uL (160-400); Red Blood Count 3.99 X10*6/uL (4.60-5.80); Red Cell Distribution Width 14.3 % (11.0-16.0); White Blood Count 7.4 X10*3/uL (4.8-10.8)
[2024-11-15] MEDS: 0.9 % Sodium Chloride 500 ML 999 ML IV ×2 (18:48→21:25)
[2024-11-15 18:56] LABS: Alanine Aminotransferase 21 U/L (0-40); Albumin Level 3.8 g/dL (3.5-5.0); Alkaline Phosphatase 66 U/L (39-117); Anion Gap 15 (12-20); Aspartate Amino Transferase 32 U/L (5-37); Bilirubin Direct 0.2 mg/dL (0.0-0.5); Bilirubin Total 0.4 mg/dL (0.0-1.0); Blood Urea Nitrogen 18 mg/dL (9-16); Calcium 9.4 mg/dL (8.4-10.2); Carbon Dioxide 22 mmol/L (22-29); Chloride 110 mmol/L (96-108); Creatinine Clr Calc Pharmacy 71.6; Estimated Glomerular Filt Rate > 60; Glucose Random 226 mg/dL (60-115); Lipase 7 U/L (8-78); Magnesium 1.7 mg/dL (1.6-2.6); Potassium 4.7 mmol/L (3.3-5.1); Sodium 142 mmol/L (135-145); Total Protein 7.6 g/dL (6.5-8.0)
[2024-11-15 18:58] LABS: Appearance Urine Turbid; Color Urine Yellow; Glucose Urine UA Negative (Negative); Leukocyte Esterase Urine Large (3+) (Negative); Nitrite Urine Negative (Negative); UMIC TRIGGER UACC YES; Urine Blood Large (3+) (Negative); Urine Ketones Trace mg/dL (Negative); Urine Protein 300 (3+) mg/dL (Neg-Trace)
[2024-11-15 19:01] LABS: B Type Natriuretic Peptide 198 pg/mL (<100)
[2024-11-15 19:02] LABS: Lactic Acid 2.9 mmol/L (0.5-2.0); Troponin-I High Sensitivity 21.1 ng/L (<3.5-35.0)
[2024-11-15 19:03] LABS: Bacteria Urine 1+ (None Seen); RBC Urine >20 /HPF (0-2); Squamous Epithelial Cell Urine 0-2 /HPF (0-2); UACC Culture Trigger YES; WBC Urine >50 /HPF (0-5)
[2024-11-15 19:14] VITALS: BP 149/84; PULSE 79; RESP 20; TEMP 36.4; O2SAT 96
[2024-11-15 19:18] LABS: Influenza A PCR POSITIVE (Negative); Influenza B PCR NEGATIVE (Negative); Resp Syncy Virus RNA Qual PCR NEGATIVE (Negative); SARS COV2 PCR INHOUSE NEGATIVE (Negative)
[2024-11-15 20:38] LABS: Reflex Lactate? Lactic Acid Added
[2024-11-15 21:16] LABS: ~Lactic Acid-LAB USE ONLY 2.2 mmol/L (0.5-2.0)
--- NOTE | 2024-11-15 21:28 | PC.NURSE ---
pt reposition in bed and medicated per mar.
[2024-11-15 22:07] VITALS: BP 133/72; PULSE 75; RESP 20; TEMP 36.6; O2SAT 97
[2024-11-15 22:58] LABS: Reflex Lactate? 2 Y
[2024-11-16 00:21] LABS: ~Lactic Acid-LAB USE ONLY 1.5 mmol/L (0.5-2.0)
[2024-11-16 00:26] LABS: Troponin-I High Sensitivity 18.3 ng/L (<3.5-35.0)
--- NOTE | 2024-11-16 01:14 | PC.NURSE ---
burgos replaced by per provider, repeat labs collected and sent, awaiting disposition.
--- NOTE | 2024-11-16 01:45 | PC.NURSE ---
Call facility [facility] to give report, Verbal report given to nurse Kathi. pt awaiting ambulance
--- NOTE | 2024-11-16 01:53 | PC.NURSE ---
multiple calls make to family with no success.
[2024-11-16 03:30] VITALS: BP 132/75; PULSE 81; RESP 18; TEMP 36.4; O2SAT 98
--- NOTE | 2024-11-16 03:37 | PC.NURSE ---
Iv removed, Report given to EMS, pt returning to facility
[2024-11-16 03:38] VITALS: BP 132/75; PULSE 81; RESP 18; TEMP 36.4; O2SAT 98
== END 2024-11-16 03:39 | disposition skilled nursing facility (03) ==
PROVIDERS: Physician Assistant; Emergency Provider Emergency Medicine; PCP Internal Medicine
DX: S22.31XA Fracture of one rib, right side, initial encounter for closed fracture (principal); R06.02 Shortness of breath; R05.9 Cough, unspecified; R10.2 Pelvic and perineal pain; R11.0 Nausea; Y99.8 Other external cause status; T83.098A Other mechanical complication of other urinary catheter, initial encounter; Y73.8 Miscellaneous gastroenterology and urology devices associated with adverse incidents, not elsewhere classified; Y92.9 Unspecified place or not applicable; X58.XXXA Exposure to other specified factors, initial encounter; Y93.9 Activity, unspecified; Z03.818 Encounter for observation for suspected exposure to other biological agents ruled out; Z79.899 Other long term (current) drug therapy; Z79.4 Long term (current) use of insulin; Z87.891 Personal history of nicotine dependence
CPT/HCPCS: 0241U; 36415; 51702; 71045; 71250; 74176; 80048; 80076; 81001; 82947; 83605; 83690; 83735; 83880; 84484; 85025; 87040; 87086; 93005; 94640; 96360; 96361; 99284; 99285

== ENCOUNTER → 2024-11-15 18:02 | Outpatient (BNV) | payer MEDICARE, SELFPAY | PROVIDERS: Emergency Provider Emergency Medicine; PCP Internal Medicine; Visit Provider Radiology Diagnostic Radiology | DX: K80.20 Calculus of gallbladder without cholecystitis without obstruction (principal); K86.1 Other chronic pancreatitis; R05.9 Cough, unspecified | CPT/HCPCS: 71045; 71250; 74176 ==

== ENCOUNTER → 2024-11-15 18:02 | Outpatient (BNV) | payer MEDICARE, SELFPAY | PROVIDERS: Emergency Provider Emergency Medicine; PCP Internal Medicine; Visit Provider Internal Medicine | DX: R94.31 Abnormal electrocardiogram [ECG] [EKG] (principal); R53.1 Weakness | CPT/HCPCS: 93010 ==

== ENCOUNTER 2024-11-17 10:10 | Inpatient (IN) | payer MEDICARE, SELFPAY ==
[2024-11-17] VITALS (8 sets, daily range): BP systolic 112–150; BP diastolic 65–88; PULSE 61–87; RESP 16–18; TEMP 36.2–36.7; O2SAT 95–100; BMI 25.0
--- NOTE | 2024-11-17 | ECG_ITS ---
Test Reason : AMS Blood Pressure : */* mmHG Vent. Rate : 52 BPM Atrial Rate : 52 BPM P-R Int : 194 ms QRS Dur : 102 ms QT Int : 428 ms P-R-T Axes : 8 -13 -44 degrees QTcB Int : 398 ms Sinus bradycardia with Premature supraventricular complexes Nonspecific ST-T changes Abnormal ECG When compared with ECG of 15-Nov-2024 18:50, Premature supraventricular complexes are now Present Non-specific change in ST segment in Lateral leads Nonspecific T wave abnormality now evident in Anterior leads QT has shortened Referred By: Generic ED Physician Electronically Signed By: Elliot Rice
--- NOTE | ~2024-11-17 | XR_ITS ---
CLINICAL HISTORY: shortness of breath, lethargy 2 view chest x-ray Comparison: CR - XR CHEST 1V - 11/15/24 18:59 EDT Findings: No consolidation or effusion. The heart is normal in size. The aortic arch is ectatic. No acute fracture. IMPRESSION: 1. No acute cardiopulmonary abnormality. 2. Ectatic aortic arch. This document has been electronically signed by: Amelia Dueñas on 11/17/2024 11:03:26
--- NOTE | ~2024-11-17 | CT_ITS ---
EXAMINATION: CT CHEST WITHOUT IV CONTRAST INDICATION: suspected pneumonia COMPARISON: Comparison is made with the prior examination dated 11/15/2024. TECHNIQUE: Helical CT scan of the chest was performed without intravenous contrast. Coronal and sagittal reformatted images were generated and reviewed. This CT exam was performed with one or more of the following dose reduction techniques: automated exposure control, adjustment of the mA and/or kV according to patient size, use of iterative reconstruction technique. DLP: 386 mGy-cm CHEST: THYROID: The thyroid gland is unremarkable. LUNGS: There are 3 mm nodules in the right lower lobe (series 4, images 79 and 99). The lungs are otherwise clear. There are no airspace opacities to suggest pneumonia. MEDIASTINUM: There is no mediastinal lymphadenopathy. ANNIE: Evaluation of the hilar regions is limited by lack of intravenous contrast material. CARDIOVASCULATURE: The heart is normal in size. There is no pericardial effusion. The ascending thoracic aorta is mildly dilated measuring up to 3.7 cm in diameter. DEGREE OF CORONARY CALCIFICATION: severe PLEURA: There is no pleural effusion. No pneumothorax. MAIN AIRWAYS: The mainstem bronchi and proximal branches are patent. AXILLA: There is no axillary lymphadenopathy. BONES AND SOFT TISSUES: There is degenerative disc disease of the spine. UPPER ABDOMEN: There is a 1.5 cm hypodensity at the dome of the left lobe of liver. The visualized portions of the spleen and adrenals have an unremarkable unenhanced appearance. There is cholelithiasis. There are pancreatic parenchymal calcifications consistent with chronic pancreatitis. CT/CT chest wo IV con IMPRESSION: 1. No airspace opacities are seen in the lungs to suggest pneumonia. 2. Cholelithiasis. Chronic pancreatitis. Electronically signed by: Klever Epperson MD 11/18/2024 03:07 PM EDT
--- NOTE | ~2024-11-17 | CT_ITS ---
CLINICAL HISTORY: AMS lethargy CT head without contrast Comparison: CT/SR - CT HEAD/BRAIN WO IV CON - 10/22/24 23:25 EST Findings: Bilateral periventricular hypodensities are present. Remote lacunar infarcts are seen in bilateral basal ganglia. There is no evidence of hemorrhage, mass, mass effect, or hydrocephalus. Mild mucosal thickening is seen in the right maxillary sinus, bilateral ethmoid air cells, and left sphenoid sinus. The orbits are within normal limits. 0.9 cm well-defined focal sclerosis is seen in the right maxilla. No acute fracture is identified. IMPRESSION: 1. No acute intracranial abnormality. 2. [id number] chronic microvascular ischemic disease. This document has been electronically signed by: Amelia Dueñas on 11/17/2024 11:13:55
--- NOTE | ~2024-11-17 | FL_ITS ---
EXAMINATION: XR BARIUM SWALLOW CLINICAL INFORMATION: Ration. COMPARISON: None available. TECHNIQUE: Routine modified barium swallow was performed in lateral fluoroscopy with patient sitting. There is consistencies of thin, thick and solid barium was administered coated with barium and presence of speech therapist. FINDINGS: Following oral administration of thick barium, nectar consistency barium, barium puree there is slow propagation bolus from the oral cavity through the pharynx and esophagus with mild retention of food in valleculae and piriform sinuses. There is slight penetration seen with thick barium. On oral administration of thin barium there is ytron laryngeal penetration and aspiration. FLUOROSCOPY TIME: 2 minutes and 5 seconds DOSE AREA PRODUCT: 1631 uGy-m2 (microgray-meter squared) FL/FL Modified Barium Swallow IMPRESSION: Tyron laryngeal penetration or aspiration with thin barium. Otherwise normal but slow propagation bolus from the oral cavity through the pharynx with other consistencies of barium. Electronically signed by: Patel Smallwood MD 11/20/2024 04:58 PM EDT
--- NOTE | 2024-11-17 10:29 | ED.GENADULT ---
HPI - General Adult General Chief complaint: Altered Mental Status Stated complaint: AMS LETHARGIC Time Seen by Provider: 11/17/24 10:29 Source: patient, EMS, RN notes reviewed and old records reviewed Mode of arrival: EMS Limitations: altered mental status History of Present Illness ED Provider: Tennille HPI narrative: Patient is a 74-year-old male with history of hypertension, alcohol use disorder, hemorrhagic stroke, CHF, severe recurrent major depressive disorder with psychosis, BPH with indwelling urinary catheter presenting to the emergency department from [facility] for lethargy. Patient drowsy but responds to voice, A+Ox3 on arrival, complaining of shortness of breath and chest pain. Denies abdominal pain or nausea. Denies headache or dizziness. MD complaint: shortness of breath and chest pain Related Data Home Medications ?Medication ?Instructions ?Recorded ?Confirmed amlodipine 5 mg tablet 5 mg PO DAILY 08/14/24 11/09/24 atorvastatin 40 mg tablet 40 mg PO BEDTIME 08/14/24 11/09/24 clopidogrel 75 mg tablet 75 mg PO DAILY 08/14/24 11/09/24 insulin degludec 100 unit/mL (3 18 unit subcut DAILY 08/14/24 11/09/24 mL) subcutaneous pen (Tresiba FlexTouch U-100 insulin) metformin 1,000 mg tablet 1,000 mg PO BID 08/14/24 11/09/24 metoprolol succinate 50 mg 50 mg PO DAILY 08/14/24 11/09/24 tablet,extended release 24 hr mirtazapine 15 mg tablet 15 mg PO BEDTIME 08/14/24 11/09/24 risperidone 2 mg tablet 2 mg PO BEDTIME 08/14/24 11/09/24 tamsulosin 0.4 mg capsule 0.4 mg PO DAILY 08/14/24 11/09/24 trazodone 100 mg tablet 100 mg PO BEDTIME 08/14/24 11/09/24 acetaminophen 325 mg tablet 650 mg PO Q6H PRN Fever Or Pain 09/24/24 11/09/24 bisacodyl 10 mg rectal suppository 10 mg LA DAILY PRN if no BM for 8 09/24/24 11/09/24 hours after MOM insulin lispro 100 unit/mL 1 sliding scale dose subcut 09/24/24 11/09/24 subcutaneous solution (Humalog USEASDIRECTD U-100 Insulin) acetaminophen 325 mg tablet 650 mg PO TID 10/23/24 11/09/24 magnesium oxide 400 mg (241.3 mg 400 mg PO BID 10/23/24 11/09/24 magnesium) tablet risperidone 0.5 mg tablet 0.5 mg PO DAILY@0900 10/23/24 11/09/24 risperidone 1 mg tablet 1 mg PO DAILY@0910/23/24 11/09/24 sodium chloride 1,000 mg soluble 1,000 mg PO BID 10/23/24 11/09/24 tablet dextrose 40 % oral gel (Glutose-45) 15 g PO Q15M PRN Hypoglycemia 11/09/24 11/09/24 glucagon 1 mg/0.2 mL subcutaneous 1 mg subcut Q20M PRN Hypoglycemia 11/09/24 11/09/24 auto-injector Previous Rx's ?Medication ?Instructions ?Recorded lancets 28 gauge (FreeStyle #100 ea 12/01/23 Lancets) pen needle, diabetic 32 gauge x #100 ea 12/01/2309/07 finasteride 5 mg tablet 5 mg PO DAILY #90 tabs 10/25/24 glipizide 10 mg tablet 10 mg PO DAILY #60 tabs 11/12/24 oseltamivir 30 mg capsule 30 mg PO BID #3 caps 11/12/24 Allergies Allergy/AdvReac Type Severity Reaction Status Date / Time meperidine [From DEMEROL] Allergy Unknown UNKNOWN Verified 11/17/24 10:19 Review of Systems Review of Systems: As per HPI Yes all other systems are reviewed and are negative Constitutional: Constitutional: Reports [facility] Past Medical History Medical History BPH loc w urin obs/LUTS Severe recurrent major depressive disorder with psychosis CHF (congestive heart failure) Hemorrhagic stroke Cholelithiasis Alcohol use disorder HTN (hypertension) Surgical History No pertinent past surgical history Social History Social History Household Members: Other [facility] Do you presently have visiting nurse or other home services: No Alcohol intake: current Alcohol intake frequency: 0-2 drinks per day Alcohol type: hard liquor Comment: sitter at bedside Patient Tobacco Use Status: Former Tobacco user Smoked in Last 30 Days: No Second Hand Smoke Exposure: No Use of substances other than those prescribed or required for medical reasons: No Advance Directives: Yes Advance Directives on File: Yes Advance Directives Date on File: 04/12/23 service: No Current occupational status: disabled Physical Exam ED Vital Signs: Vital Signs - 24 hr 11/17/24 10:16 11/17/24 12:43 Temperature 97.4 F 97.4 F Pulse Rate 61 66 Respiratory Rate 18 18 Blood Pressure 125/69 148/77 H Pulse Oximetry 100 100 Oxygen Delivery Method Room Air Room Air BMI result Body Mass Index 25.0 Vital signs have been reviewed and appear to be correct. Blood pressure normal. Heart rate normal. Respiratory rate normal. Temperature normal. Oxygen saturation normal. Const Other: drowsy, wakes to voice General: cooperative and no acute distress Orientation/consciousness: oriented to person, oriented to place, oriented to time and patient oriented x3 HENMT Head: Yes normocephalic and Yes atraumatic Ears: external ears normal General nose exam: Normal external nose present Face and sinus: Yes face symmetric Mouth: oropharynx normal and moist mucous membranes Throat: Yes uvula midline Eyes Pupils: Equal, round and reactive pupils present Neck Neck: Yes normal visual inspection and Yes supple Resp Effort & Inspection: normal respiratory effort and able to speak in complete sentences Auscultation: clear to auscultation bilaterally Cardio Rate: regular rate Rhythm: regular rhythm Heart sounds: S1 normal heart sound present and S2 normal heart sound present GI Palpation (GI): Soft to palpation and nontender Auscultation: normoactive bowel sounds General: Yes no CVA tenderness Back/Spine/Pelvis Back: no CVA tenderness Skin General skin exam: elasticity normal and turgor normal Neuro General: oriented to person, oriented to place, oriented to time, patient oriented x3, moves all extremities, Normal light touch and pain sensation, no focal motor deficits and CN's II-XI intact bilaterally Cranial nerves: Yes Equal, round and reactive pupils present Cognition (Neuro): normal cognition Motor exam (neuro): strength not 5/5 throughout (4/5 throughout) and Motor abnormalities not present Extrem General: Yes full ROM, Yes no pedal edema and Yes no calf tenderness Psych Mental Status: mental status grossly normal NIH Stroke Scale Internal: Initial- Upon Arrival Time: 10:39 Level of Consciousness: Not Alert; but arousable by minor stimulation Level of Consciousness Questions: Answers both questions correctly Level of Consciousness Commands: Performs both tasks correctly Best Gaze: Normal Visual: No visual loss Facial Palsy: Normal Motor Arm (Right): No drift Motor Arm (Left): No drift Motor Leg (Right): No drift Motor Leg (Left): No drift Limb Ataxia: Absent Sensory: Normal Best Language: No aphasia Dysarthia: Normal Extinction and Inattention: No abnormality Score: 1 Medications Administered Generic Name Dose Route Start Last Admin Trade Name Freq PRN Reason Stop Dose Admin Magnesium Sulfate 2 gm in 50 mls @ 25 mls/hr 11/17/24 13:35 11/17/24 14:03 Magnesium Sulfate/H2o IV 11/17/24 15:34 25 mls/hr ONCE ONE Administration Medical Decision Making Medical Decision Making [facility] Narrative: Patient is a 74-year-old male with history of hypertension, alcohol use disorder, hemorrhagic stroke, CHF, severe recurrent major depressive disorder with psychosis, BPH with indwelling urinary catheter presenting to the emergency department from [facility] for lethargy. On exam patient is awake, A+Ox3, VS WNL, afebrile, normal neurological exam without focal deficits, physical exam findings as above. Given reported symptoms and physical exam findings, initial differential includes but is not limited to viral infection, flu, covid, bronchitis, pneumonia, UTI, CHF exacerbation. Less likely CVA/ICH, but will obtain CT head. Labs notable for no leukocytosis, stable mild anemia, hypomagnesemia, elevated lactic. UA notable for 3+ leukocytes, 2+ blood, 21-50 WBCs, trace bacteria. Urine culture from recent visit was negative. Feel this likely represents colonization in the setting of indwelling catheter. X-ray chest notable for no evidence of pneumonia or edema. CT head notable for no acute intracranial abnormality. My interpretation is in agreement with the radiologist's interpretation. Viral panel positive for influenza A which patient initially tested positive for on 11/08. Given that this is his third visit in 9 days, and he has an elevated lactic, unknown source, will admit. Case discussed with Dr. Romero who accepts admission to medicine. Differential Diagnosis Differential Diagnoses: The differential diagnosis associated with the presentation includes As per [facility] Admission/Observation Consideration of admission/observation: Escalation of care including admission/observation considered Patient would have been admitted to the hospital had their work up had any findings where hospital admission was appropriate and their clinical presentation warranted hospital admission. Lab Data [facility] Lab Attestation statement: I reviewed the patient's lab results. As per [facility] 11/17/24 10:41 11/17/24 11:39 Labs: Lab Results 11/17/24 11/17/24 11/17/24 Range/Units 10:29 10:41 11:39 WBC 9.9 (4.8-10.8) X10*3/uL RBC 3.90 L (4.60-5.80) X10*6/uL Hgb 11.4 L (14.0-18.0) g/dl Hct 33.2 L (42.0-52.0) % MCV 85.1 (80.0-98.0) fL MCH 29.2 (27.0-33.0) pg MCHC 34.3 (31.0-36.0) g/dl RDW 14.4 (11.0-16.0) % Plt Count 270 (160-400) X10*3/uL MPV 9.1 L (9.4-12.4) fL Immature Gran % (Auto) 0.5 H (0.0-0.4) % Neut % (Auto) 81.3 H (45-73) % Lymph % (Auto) 13.3 L (20-40) % [place] % (Auto) 4.0 (2-11) % Eos % (Auto) 0.8 (0-4) % Baso % (Auto) 0.1 (0-2) % Lymph # (Auto) 1.3 (1.2-4.9) X10*3/uL [place] # (Auto) 0.4 (0.1-1.2) X10*3/uL Eos # (Auto) 0.1 (0.0-0.4) X10*3/uL Baso # (Auto) 0.0 (0.0-0.2) X10*3/uL Abs Immat Gran (auto) 0.05 H (0.00-0.03) X10*3/uL Absolute Neuts (auto) 8.0 (2.0-8.3) x10*3/uL Absolute Nucleated RBC 0.000 (0.0-0.012) X10*3/uL Nucleated RBC % (auto) 0.0 (0.0-0.2) /100WBC Sodium 142 (135-145) mmol/L Potassium 3.9 (3.3-5.1) mmol/L Chloride 112 H (96-108) mmol/L Carbon Dioxide 20 L (22-29) mmol/L Anion Gap 12 (12-20) BUN 14 (9-16) mg/dL Creatinine 0.81 (0.5-1.4) mg/dL Estim Creat Clear Calc 81.3 Estimated GFR > 60 Random Glucose 196 H (60-115) mg/dL Lactic Acid (0.5-2.0) mmol/L Calcium 8.9 (8.4-10.2) mg/dL Magnesium 1.5 L (1.6-2.6) mg/dL Total Bilirubin 0.4 (0.0-1.0) mg/dL Direct Bilirubin 0.2 (0.0-0.5) mg/dL AST 21 (5-37) U/L ALT 17 (0-40) U/L Alkaline Phosphatase 62 (39-117) U/L Ammonia 28 (13-55) umol/L Troponin I High Sens 13.5 (<3.5-35.0) ng/L B-Natriuretic Peptide 139 H (<100) pg/mL Total Protein 6.9 (6.5-8.0) g/dL Albumin 3.5 (3.5-5.0) g/dL Urine Color Yellow Urine Appearance Cloudy Urine pH 6.0 (5.0-9.0) Ur Specific [place] 1.020 (1.005-1.025) Urine Protein 30 (1+) H (Neg-Trace) mg/dL Urine Glucose (UA) Negative (Negative) mg/dL Urine Ketones Negative (Negative) mg/dL Urine Blood Moderate (2+) H (Negative) Urine Nitrite Negative (Negative) Ur Leukocyte Esterase Large (3+) H (Negative) Urine RBC >20 H (0-2) /HPF Urine WBC 21-50 (0-5) /HPF Ur Squamous Epith Cells 0-2 (0-2) /HPF Urine Bacteria Trace (None Seen) Hyaline Casts 0-2 (0-2) /LPF Urine Yeast Present Influenza Type A (PCR) POSITIVE A (Negative) Influenza Type B (PCR) NEGATIVE (Negative) RSV RNA Qual (PCR) NEGATIVE (Negative) SARS-CoV-2 RNA (RT-PCR) NEGATIVE (Negative) 11/17/24 Range/Units 14:11 WBC (4.8-10.8) X10*3/uL RBC (4.60-5.80) X10*6/uL Hgb (14.0-18.0) g/dl Hct (42.0-52.0) % MCV (80.0-98.0) fL MCH (27.0-33.0) pg MCHC (31.0-36.0) g/dl RDW (11.0-16.0) % Plt Count (160-400) X10*3/uL MPV (9.4-12.4) fL Immature Gran % (Auto) (0.0-0.4) % Neut % (Auto) (45-73) % Lymph % (Auto) (20-40) % [place] % (Auto) (2-11) % Eos % (Auto) (0-4) % Baso % (Auto) (0-2) % Lymph # (Auto) (1.2-4.9) X10*3/uL [place] # (Auto) (0.1-1.2) X10*3/uL Eos # (Auto) (0.0-0.4) X10*3/uL Baso # (Auto) (0.0-0.2) X10*3/uL Abs Immat Gran (auto) (0.00-0.03) X10*3/uL Absolute Neuts (auto) (2.0-8.3) x10*3/uL Absolute Nucleated RBC (0.0-0.012) X10*3/uL Nucleated RBC % (auto) (0.0-0.2) /100WBC Sodium (135-145) mmol/L Potassium (3.3-5.1) mmol/L Chloride (96-108) mmol/L Carbon Dioxide (22-29) mmol/L Anion Gap (12-20) BUN (9-16) mg/dL Creatinine (0.5-1.4) mg/dL Estim Creat Clear Calc Estimated GFR Random Glucose (60-115) mg/dL Lactic Acid 3.4 H* (0.5-2.0) mmol/L Calcium (8.4-10.2) mg/dL Magnesium (1.6-2.6) mg/dL Total Bilirubin (0.0-1.0) mg/dL Direct Bilirubin (0.0-0.5) mg/dL AST (5-37) U/L ALT (0-40) U/L Alkaline Phosphatase (39-117) U/L Ammonia (13-55) umol/L Troponin I High Sens (<3.5-35.0) ng/L B-Natriuretic Peptide (<100) pg/mL Total Protein (6.5-8.0) g/dL Albumin (3.5-5.0) g/dL Urine Color Urine Appearance Urine pH (5.0-9.0) Ur Specific [place] (1.005-1.025) Urine Protein (Neg-Trace) mg/dL Urine Glucose (UA) (Negative) mg/dL Urine Ketones (Negative) mg/dL Urine Blood (Negative) Urine Nitrite (Negative) Ur Leukocyte Esterase (Negative) Urine RBC (0-2) /HPF Urine WBC (0-5) /HPF Ur Squamous Epith Cells (0-2) /HPF Urine Bacteria (None Seen) Hyaline Casts (0-2) /LPF Urine Yeast Influenza Type A (PCR) (Negative) Influenza Type B (PCR) (Negative) RSV RNA Qual (PCR) (Negative) SARS-CoV-2 RNA (RT-PCR) (Negative) Independent Interpretation I performed an independent interpretation of an: Plain X-Ray and CT Scan Interpretation: X-ray chest notable for no evidence of pneumonia or edema. CT head notable for no acute intracranial abnormality. Radiology Impression Discussion of test interpretation with radiology: I have reviewed the radiologist's reading. Radiologist Impression: 2 view chest x-ray Comparison: CR - XR CHEST 1V - 11/15/24 18:59 EDT Findings: No consolidation or effusion. The heart is normal in size. The aortic arch is ectatic. No acute fracture. IMPRESSION: 1. No acute cardiopulmonary abnormality. 2. Ectatic aortic arch. CT head without contrast Comparison: CT/SR - CT HEAD/BRAIN WO IV CON - 10/22/24 23:25 EST Findings: Bilateral periventricular hypodensities are present. Remote lacunar infarcts are seen in bilateral basal ganglia. There is no evidence of hemorrhage, mass, mass effect, or hydrocephalus. Mild mucosal thickening is seen in the right maxillary sinus, bilateral ethmoid air cells, and left sphenoid sinus. The orbits are within normal limits. 0.9 cm well-defined focal sclerosis is seen in the right maxilla. No acute fracture is identified. IMPRESSION: 1. No acute intracranial abnormality. 2. [id number] chronic microvascular ischemic disease. External Record Review External record reviewed: Inpatient record, Office record and Outpatient record Discharge Plan Discharge Patient Disposition: Admitted As Inpatient Prescriptions: No Action (DME) pen needle, diabetic 32 gauge x 1/4 needle Qty: 100 0RF Rx Instructions: use with Lantus Solostar Pen once daily (DME) lancets [FreeStyle Lancets] 28 gauge misc Qty: 100 0RF Rx Instructions: Test four times a day or as directed. atorvastatin 40 mg tablet 40 mg PO BEDTIME metoprolol succinate 50 mg tablet extended release 24 hr 50 mg PO DAILY clopidogrel 75 mg tablet 75 mg PO DAILY amlodipine 5 mg tablet 5 mg PO DAILY risperidone 2 mg tablet 2 mg PO BEDTIME tamsulosin 0.4 mg capsule 0.4 mg PO DAILY trazodone 100 mg tablet 100 mg PO BEDTIME metformin 1,000 mg tablet 1,000 mg PO BID mirtazapine 15 mg tablet 15 mg PO BEDTIME insulin degludec [Tresiba FlexTouch U-100] 100 unit/mL (3 mL) insulin pen 18 unit subcut DAILY acetaminophen 325 mg Tablet 650 mg PO Q6H PRN (Reason: Fever Or Pain) Rx Instructions: DNE 3 G IN 24 HRS bisacodyl 10 mg Suppository 10 mg LA DAILY PRN (Reason: if no BM for 8 hours after MOM) insulin lispro [Humalog U-100 Insulin] 100 unit/mL Solution 1 sliding scale dose SUBCUT USEASDIRECTD Protocol: Insulin Correction Scale Less than or equal to 110 ---- Give (units): 0 111 to 150 Give (units): 0 151 to 200 Give (units): 0 201 to 250 Give (units): 4 251 to 300 Give (units): 6 301 to 350 Give (units): 8 Greater than 350 Give (units): 10 Call MD if Blood Glucose > : 400 acetaminophen 325 mg Tablet 650 mg PO TID Rx Instructions: DNE 3 G IN 24 HRS risperidone 1 mg tablet 1 mg PO DAILY@0900 risperidone 0.5 mg tablet 0.5 mg PO DAILY@0900 sodium chloride 1,000 mg Tablet,Soluble 1,000 mg PO BID magnesium oxide 400 mg (241.3 mg magnesium) tablet 400 mg PO BID finasteride 5 mg Tablet 5 mg PO DAILY Qty: 90 0RF dextrose [Glutose-45] 40 % Gel 15 g PO Q15M PRN (Reason: Hypoglycemia) Rx Instructions: until symptoms of low blood sugar are controlled glucagon 1 mg/0.2 mL Auto-Injector 1 mg SUBCUT Q20M PRN (Reason: Hypoglycemia) oseltamivir 30 mg Capsule 30 mg PO BID Qty: 3 0RF glipizide 10 mg Tablet 10 mg PO DAILY Qty: 60 0RF Print Language: Lithuanian
[2024-11-17 10:37] LABS: Appearance Urine Cloudy; Color Urine Yellow; Glucose Urine UA Negative (Negative); Leukocyte Esterase Urine Large (3+) (Negative); Nitrite Urine Negative (Negative); UMIC TRIGGER UACC YES; Urine Blood Moderate (2+) (Negative); Urine Ketones Negative (Negative); Urine Protein 30 (1+) mg/dL (Neg-Trace)
--- NOTE | 2024-11-17 10:45 | PC.NURSE ---
sherie from [facility] - SNF reports AMS/lethargy/difficulty to arouse x this morning. per SNF staff - pt usually a&ox4. alert and oriented per EMS but slow to respond. only complaint by pt is increased sob. recently at [facility] [place]. upon ED arrival - pt a&ox4 but seemingly drowsy. responsive to verbal stimuli. conversating w/ eyes closed. face symmetrical. no slur in speech noted. strength equal bilaterally. vss and up to date aside from being sinus juni on the desk monitor. 20gIV in the right wrist via EMS - patent/intact. additional 20gIV placed in the left forearm - labs obtained/sent to lab. ekg performed by tech. 16fr burgos catheter in place upon ED arrival - draining dark yellow urine. patent. specimen obtained/sent to lab. pt currently on RA w/o difficulty - no sob/wob noted. respirations even/unlabored. pt pending CT/XR to be completed at this time. plan of care ongoing. call [facility] placed within reach.
[2024-11-17 10:46] LABS: Bacteria Urine Trace (None Seen); Hyaline Casts Urine 0-2 /LPF (0-2); RBC Urine >20 /HPF (0-2); Squamous Epithelial Cell Urine 0-2 /HPF (0-2); UACC Culture Trigger YES; WBC Urine 21-50 /HPF (0-5)
[2024-11-17 10:49] LABS: Basophils Percent Auto 0.1 % (0-2); Eosinophils Absolute Auto 0.1 X10*3/uL (0.0-0.4); Eosinophils Percent Auto 0.8 % (0-4); Hematocrit 33.2 % (42.0-52.0); Hemoglobin 11.4 g/dl (14.0-18.0); Imm Gran Abs Auto 0.05 X10*3/uL (0.00-0.03); Imm Gran Pct Auto 0.5 % (0.0-0.4); Lymphocytes Absolute Auto 1.3 X10*3/uL (1.2-4.9); Lymphocytes Percent Auto 13.3 % (20-40); MANUAL DIFF FLAG NO; Mean Corpuscular HGB Conc 34.3 g/dl (31.0-36.0); Mean Corpuscular Hemoglobin 29.2 pg (27.0-33.0); Mean Corpuscular Volume 85.1 fL (80.0-98.0); Mean Platelet Volume 9.1 fL (9.4-12.4); Monocytes Absolute Auto 0.4 X10*3/uL (0.1-1.2); Neutrophils Percent Auto 81.3 % (45-73); Platelet Count 270 X10*3/uL (160-400); Red Cell Distribution Width 14.4 % (11.0-16.0); White Blood Count 9.9 X10*3/uL (4.8-10.8)
[2024-11-17 11:03] LABS: Alanine Aminotransferase 17 U/L (0-40); Albumin Level 3.5 g/dL (3.5-5.0); Alkaline Phosphatase 62 U/L (39-117); Aspartate Amino Transferase 21 U/L (5-37); Bilirubin Direct 0.2 mg/dL (0.0-0.5); Bilirubin Total 0.4 mg/dL (0.0-1.0); Blood Urea Nitrogen 14 mg/dL (9-16); Calcium 8.9 mg/dL (8.4-10.2); Carbon Dioxide 20 mmol/L (22-29); Chloride 112 mmol/L (96-108); Creatinine Clr Calc Pharmacy 81.3; Estimated Glomerular Filt Rate > 60; Glucose Random 196 mg/dL (60-115); Magnesium 1.5 mg/dL (1.6-2.6); Potassium 3.9 mmol/L (3.3-5.1); Sodium 142 mmol/L (135-145); Total Protein 6.9 g/dL (6.5-8.0)
[2024-11-17 11:10] LABS: Troponin-I High Sensitivity 13.5 ng/L (<3.5-35.0)
[2024-11-17 11:12] LABS: B Type Natriuretic Peptide 139 pg/mL (<100)
[2024-11-17 11:31] LABS: Influenza A PCR POSITIVE (Negative); Influenza B PCR NEGATIVE (Negative); Resp Syncy Virus RNA Qual PCR NEGATIVE (Negative); SARS COV2 PCR INHOUSE NEGATIVE (Negative)
[2024-11-17 12:03] LABS: Ammonia 28 umol/L (13-55)
[2024-11-17 12:07] LABS: Anion Gap 12 (12-20)
[2024-11-17] MEDS: Magnesium Sulfate/H2O 2 GM/50 ML PIGGYBACK IV (14:03)
[2024-11-17 14:36] LABS: Lactic Acid 3.4 mmol/L (0.5-2.0)
[2024-11-17 14:52] LABS: Procalcitonin 0.03 ng/mL
[2024-11-17] MEDS: Lactated Ringers 500 ML 999 ML IV (15:20)
[2024-11-17 15:22] LABS: Venous Blood Gas Refer to POC result
[2024-11-17 15:23] LABS: VBG Base Excess -2.2 mmol/L; VBG HCO3 21 mmol/L (22-26); VBG pCO2 31 mmHg; VBG pH 7.43 (7.32-7.43); VBG pO2 77 mmHg
--- NOTE | 2024-11-17 15:27 | PHA.MEDREC ---
Pharmacy Consult ? Medication Reconciliation Pharmacy has completed the medication reconciliation. Utilized list from SNF.
--- NOTE | 2024-11-17 15:30 | PC.NURSE ---
medication/IVF administered per provider order. pt otherwise remains on RA w/o difficulty - no sob/wob noted. respirations even/unlabored.
--- NOTE | 2024-11-17 15:54 | P.HPHOSP_ITS ---
History of Present Illness Date of Service: 11/17/24 Attending physician on admission: Conrado Romero Chief Complaint: lethargy, ams 74 year old male with history of cognitive impairment, HFpEF 55-60%, hypertension, insulin-dependent diabetes mellitus, history of hemorrhagic CVA with subsequent gait instability, remote history of alcohol abuse, and BPH with the urinary retention now with a chronic indwelling Gross catheter presented to the ED from [facility] due to lethargy and ams noted this morning. Per facility the patient is usually a&o x4. Recently [place] [facility] [place]09[place] due to severe viral sepsis secondary to influenza a with acute toxic metabolic encephalopathy as well as hypokalemia and lethargy. Reportedly mentation had improved on discharge. He was discharged on Tamiflu which he has completed. Yesterday, he was started on prednisone yesterday for the flu. This morning was found to be lethargic and confused. On my exam the patient is lethagic, clammy, oriented to self, time, and place but making statements about his fingers needing to be moist or else they go backwards. He does also endorse shortness of breath and cough. Since arrival, he has been afebrile, vitals stable. No leukocytosis. Renal function and electrolyte levels normal except for chloride 112, CO2 of 20. VBG reassuring with pH 7.43, pCO2 31, bicarb 21. UA with 2+ blood, 3+ leukocytes with elevated white blood cells and trace bacteria. However, patient was here 2 days ago with similar UA and urine culture was negative. He is still positive for influenza a, initial diagnosis 11/08 and has completed course of Tamiflu. Negative for RSV and COVID. Head CT negative for any acute intracranial abnormality and chest x-ray negative for acute cardiopulmonary abnormality. In the ED, has been given IV magnesium, LR, and DuoNeb. Review of Systems 2 Review of Systems: Yes Unobtainable due to mental condition PMFSH Medical History BPH loc w urin obs/LUTS Severe recurrent major depressive disorder with psychosis CHF (congestive heart failure) Hemorrhagic stroke Cholelithiasis Alcohol use disorder HTN (hypertension) Surgical History No pertinent past surgical history Social History [facility]: [facility] Do you presently have visiting nurse or other home services: No Alcohol intake: current Alcohol intake frequency: 0-2 drinks per day Alcohol type: hard liquor Comment: sitter at bedside Patient Tobacco Use Status: Former Tobacco user Smoked in Last 30 Days: No Second Hand Smoke Exposure: No Use of substances other than those prescribed or required for medical reasons: No Advance Directives: Yes Advance Directives on File: Yes Advance Directives Date on File: 04/12/23 service: No Current occupational status: disabled Meds Allergies Allergy/AdvReac Type Severity Reaction Status Date / Time meperidine [From DEMEROL] Allergy Unknown UNKNOWN Verified 11/17/24 10:19 Active Medications: Current Medications Acetaminophen (Acetaminophen 325 Mg Tablet) 650 mg PO Q6H PRN PRN Reason: Pain, Mild 1-3,fever,headache Albuterol/Ipratropium (Albuterol/Iprat 2.5/0.5mg 3 Ml Ampul.Neb) 3 ml INHALE QID HERACLIO Amlodipine Besylate (Amlodipine Besylate 5 Mg Tablet) 5 mg PO DAILY HERACLIO; Protocol Atorvastatin Calcium (Atorvastatin Calcium 40 Mg Tablet) 40 mg PO BEDTIME HERACLIO Bisacodyl (Bisacodyl 10 Mg Supp.Rect) 10 mg TX DAILY PRN PRN Reason: if no BM for 8 hours after MOM Calcium Carbonate (Calcium Carbonate 750 Mg Tab.Chew) 750 mg PO Q4H PRN PRN Reason: Heartburn Clopidogrel Bisulfate (Clopidogrel Bisulfate 75 Mg Tablet) 75 mg PO DAILY [facility] Enoxaparin Sodium (Enoxaparin Sodium 40 Mg/0.4 Ml Syringe) 40 mg SUBCUT Q24H HERACLIO Finasteride (Finasteride 5 Mg Tablet) 5 mg PO DAILY [facility] Ampicillin Sodium/Sulbactam (Sodium 3 gm/ Sodium Chloride) 100 mls @ 200 mls/hr IV Q6H HERACLIO Magnesium Hydroxide (Milk Of Magnesia 30 Ml Oral.Susp) 30 ml PO DAILY PRN PRN Reason: Constipation Magnesium Oxide (Magnesium Oxide 400 Mg Tablet) 400 mg PO BID HERACLIO Melatonin (Melatonin 3 Mg Tablet) 6 mg PO BEDTIME PRN PRN Reason: Insomnia Metoprolol Succinate (Metoprolol Succinate Er 50 Mg Tab.Er.24h) 50 mg PO DAILY [facility]; Protocol Mirtazapine (Mirtazapine 15 Mg Tablet) 15 mg PO BEDTIME [facility] Non-Formulary Medication (Insulin Degludec [Tresiba Flextouch U-100]) 14 unit SUBCUT DAILY [facility] Prednisone (Prednisone 10 Mg Tablet) 0 mg PO DIRECTED HERACLIO; Taper Stop: 12/05/24 15:59 Risperidone (Risperidone 0.5 Mg Tablet) 1.5 mg PO DAILY@0900 [facility] Sodium Chloride (0.9 % Sodium Chloride Flush 3 Ml Syringe) 3 ml IVFLUSH QSHIFT [facility] Sodium Chloride (Sodium Chloride Tab 1 Gm Tablet) 1 gm PO BID [facility] Tamsulosin HCl (Tamsulosin Hcl 0.4 Mg Capsule) 0.4 mg PO DAILY [facility] Home Medications ?Medication ?Instructions ?Recorded ?Confirmed ?Last Taken ?Type amlodipine 5 mg tablet 5 mg PO DAILY 08/14/24 11/17/24 08/13/24 History atorvastatin 40 mg tablet 40 mg PO BEDTIME 08/14/24 11/17/24 08/13/24 History clopidogrel 75 mg tablet 75 mg PO DAILY 08/14/24 11/17/24 08/13/24 History insulin degludec 100 unit/mL (3 18 unit subcut DAILY 08/14/24 11/17/24 08/13/24 History mL) subcutaneous pen (Tresiba FlexTouch U-100 insulin) metformin 1,000 mg tablet 1,000 mg PO BID 08/14/24 11/17/24 08/13/24 History metoprolol succinate 50 mg 50 mg PO DAILY 08/14/24 11/17/24 08/13/24 History tablet,extended release 24 hr mirtazapine 15 mg tablet 15 mg PO BEDTIME 08/14/24 11/17/24 08/13/24 History tamsulosin 0.4 mg capsule 0.4 mg PO DAILY 08/14/24 11/17/24 08/13/24 History trazodone 100 mg tablet 100 mg PO BEDTIME 08/14/24 11/17/24 08/13/24 History acetaminophen 325 mg tablet 650 mg PO Q6H PRN Fever Or Pain 09/24/24 11/17/24 Unknown History bisacodyl 10 mg rectal suppository 10 mg TX DAILY PRN if no BM for 8 09/24/24 11/17/24 Unknown History hours after MOM insulin lispro 100 unit/mL 1 sliding scale dose subcut 09/24/24 11/17/24 Unknown History subcutaneous solution (Humalog USEASDIRECTD U-100 Insulin) acetaminophen 325 mg tablet 650 mg PO TID 10/23/24 11/17/24 Unknown History magnesium oxide 400 mg (241.3 mg 400 mg PO BID 10/23/24 11/17/24 Unknown History magnesium) tablet risperidone 0.5 mg tablet 1.5 mg PO DAILY@0900 10/23/24 11/17/24 Unknown History sodium chloride 1,000 mg soluble 1,000 mg PO BID 10/23/24 11/17/24 Unknown History tablet dextrose 40 % oral gel (Glutose-45) 15 g PO Q15M PRN Hypoglycemia 11/09/24 11/17/24 Unknown History glucagon 1 mg/0.2 mL subcutaneous 1 mg subcut Q20M PRN Hypoglycemia 11/09/24 11/17/24 Unknown History auto-injector ipratropium 0.5 mg-albuterol 3 mg 3 ml inhalation QID 11/17/24 11/17/24 Unknown History (2.5 mg base)/3 mL nebulization soln prednisone 10 mg tablet See Taper PO DIRECTED 11/17/24 11/17/24 Unknown History trazodone 50 mg tablet 50 mg PO BEDTIME 11/17/24 11/17/24 Unknown History Physical Exam 2 Vital Signs and Narrative: Vital Signs: Last Vital Signs Temp 97.4 F 11/17/24 12:43 Pulse 66 11/17/24 12:43 Resp 18 11/17/24 12:43 BP 148/77 H 11/17/24 12:43 Pulse Ox 100 11/17/24 12:43 O2 Del Method Room Air 11/17/24 12:43 BMI result Body Mass Index 25.0 Constitutional - Awake and Alert, No apparent distress Eyes - PERRLA, EOMI Cardiovascular - S1S2, RRR, No edema Respiratory - Normal lung expansion, Normal respiratory effort, No respiratory distress, crackles bilaterally Gastrointestinal - NT / ND; +BS; No rebound or guarding Extremities - no calf tenderness bilaterally, no swelling Skin - Warm/Dry Neurological - Alert & oriented x3, but making erratic statements Results Labs 11/17/24 10:41 11/17/24 11:39 Labs: Laboratory Results - last 24 hr 11/17/24 11/17/24 11/17/24 10:29 10:41 11:39 MCV 85.1 MCH 29.2 MCHC 34.3 RDW 14.4 Plt Count 270 MPV 9.1 L Immature Gran % (Auto) 0.5 H Neut % (Auto) 81.3 H Lymph % (Auto) 13.3 L [place] % (Auto) 4.0 Eos % (Auto) 0.8 Baso % (Auto) 0.1 Lymph # (Auto) 1.3 [place] # (Auto) 0.4 Eos # (Auto) 0.1 Baso # (Auto) 0.0 Abs Immat Gran (auto) 0.05 H Absolute Neuts (auto) 8.0 Absolute Nucleated RBC 0.000 Nucleated RBC % (auto) 0.0 VBG pH VBG pCO2 VBG pO2 VBG HCO3 VBG O2 Saturation VBG Base Excess Anion Gap 12 Estim Creat Clear Calc 81.3 Estimated GFR > 60 Random Glucose 196 H Lactic Acid Calcium 8.9 Magnesium 1.5 L Total Bilirubin 0.4 Direct Bilirubin 0.2 AST 21 ALT 17 Alkaline Phosphatase 62 Ammonia 28 B-Natriuretic Peptide 139 H Total Protein 6.9 Albumin 3.5 Procalcitonin Urine Color Yellow Urine Appearance Cloudy Urine pH 6.0 Ur Specific [place] 1.020 Urine Protein 30 (1+) H Urine Glucose (UA) Negative Urine Ketones Negative Urine Blood Moderate (2+) H Urine Nitrite Negative Ur Leukocyte Esterase Large (3+) H Urine RBC >20 H Urine WBC 21-50 Ur Squamous Epith Cells 0-2 Urine Bacteria Trace Hyaline Casts 0-2 Urine Yeast Present Influenza Type A (PCR) POSITIVE A Influenza Type B (PCR) NEGATIVE RSV RNA Qual (PCR) NEGATIVE SARS-CoV-2 RNA (RT-PCR) NEGATIVE 11/17/24 11/17/24 14:11 15:19 MCV MCH MCHC RDW Plt Count MPV Immature Gran % (Auto) Neut % (Auto) Lymph % (Auto) [place] % (Auto) Eos % (Auto) Baso % (Auto) Lymph # (Auto) [place] # (Auto) Eos # (Auto) Baso # (Auto) Abs Immat Gran (auto) Absolute Neuts (auto) Absolute Nucleated RBC Nucleated RBC % (auto) VBG pH 7.43 VBG pCO2 31 VBG pO2 77 VBG HCO3 21 L VBG O2 Saturation 96.0 VBG Base Excess -2.2 Anion Gap Estim Creat Clear Calc Estimated GFR Random Glucose Lactic Acid 3.4 H* Calcium Magnesium Total Bilirubin Direct Bilirubin AST ALT Alkaline Phosphatase Ammonia B-Natriuretic Peptide Total Protein Albumin Procalcitonin 0.03 Urine Color Urine Appearance Urine pH Ur Specific [place] Urine Protein Urine Glucose (UA) Urine Ketones Urine Blood Urine Nitrite Ur Leukocyte Esterase Urine RBC Urine WBC Ur Squamous Epith Cells Urine Bacteria Hyaline Casts Urine Yeast Influenza Type A (PCR) Influenza Type B (PCR) RSV RNA Qual (PCR) SARS-CoV-2 RNA (RT-PCR) Assessment and Plan (1) Hypomagnesemia: Status: Acute (2) Influenza A: Status: Acute (3) Lethargy: Status: Acute Plan 74 year old male with history of cognitive impairment, HFpEF 55-60%, hypertension, insulin-dependent diabetes mellitus, history of hemorrhagic CVA with subsequent gait instability, remote history of alcohol abuse, and BPH with the urinary retention now with a chronic indwelling Gross catheter presented to the ED from [facility] to be observed for lethargy and encephalopathy #Acute metabolic encephalopathy -?influenza enchephalopathy vs r/t possible aspiration vs prednisone vs psychosis -CXR negative and head CT negative for any acute intracranial abnormality -will treat empirically with Unasyn to cover for aspiration pneumonia (11/17) -hold prednisone -monitor mentation -consider Psychiatry consult for evaluation of possible psychosis # acute lethargy -as above # influenza -initial diagnosis 11/08. Completed Tamiflu -precautions as per hospital policy # acute hypomagnesemia -repleted. Follow lytes # [id number] type 2 diabetes -hold metformin, glipizide -POC glucose, diabetic diet, sliding scale # chronic dysphagia -evaluated by speech therapy 11/11. Continue. Diet with thin liquids and one-to-one feeds #HFpEF -euvolemic -not on diuretics # BPH -chronic Gross catheter -continue Flomax and Proscar # hypertension -blood pressure reasonably controlled continue amlodipine # depression with psychosis -continue home meds. Question component of acute psychosis. Consider Psychiatry consult if symptoms do not improve # unspecified cognitive impairment -monitor mentation. See above DVT prophylaxis-Lovenox Full code Quality Stroke Does the patient have a stroke diagnosis?: No VTE Prior VTE?: No VTE Risk Level:: Medical - moderate - high VTE Device Contraindication: Treatment Not Indicated VTE Drug Contraindication: N/A - Med Ordered
[2024-11-17 16:15] LABS: Reflex Lactate? Lactic Acid Added
[2024-11-17] MEDS: Albuterol/Iprat 2.5/0.5MG 3 ML AMPUL.NEB INHALE ×2 (16:18→19:11)
[2024-11-17] MEDS: Insulin Glargine,Hum.rec.anlog 100 UNIT/ML 10 ML VIAL 10 UNIT SUBCUT (16:40)
[2024-11-17] MEDS: Ampicillin Sodium/Sulbactam Na 3 GM in 0.9 % Sodium Chloride 100 ML IV ×2 (16:40→21:54)
[2024-11-17] MEDS: Enoxaparin Sodium 40 MG/0.4 ML SYRINGE SUBCUT (16:40)
[2024-11-17] MEDS: 0.9 % Sodium Chloride Flush 3 ML SYRINGE IVFLUSH ×2 (16:40→21:58)
[2024-11-17 17:17] LABS: ~Lactic Acid-LAB USE ONLY 2.4 mmol/L (0.5-2.0)
[2024-11-17 18:17] LABS: Glucose, Whole Blood 201 mg/dL (60-115)
[2024-11-17] MEDS: Insulin Lispro 100 UNIT/ML 3 ML VIAL SUBCUT (18:19)
[2024-11-17 18:54] LABS: Reflex Lactate? 2 Y
[2024-11-17 19:26] LABS: ~Lactic Acid-LAB USE ONLY 1.9 mmol/L (0.5-2.0)
[2024-11-17 20:05] LABS: Glucose, Whole Blood 144 mg/dL (60-115)
[2024-11-17] MEDS: Atorvastatin Calcium 40 MG TABLET PO (20:39)
[2024-11-17] MEDS: traZODone HCL 100 MG TABLET PO (20:39)
[2024-11-17] MEDS: Sodium Chloride Tab 1 GM TABLET PO (20:40)
[2024-11-17] MEDS: Magnesium Oxide 400 MG TABLET PO (20:40)
[2024-11-17] MEDS: Mirtazapine 15 MG TABLET PO (20:40)
[2024-11-17] MEDS: Melatonin 3 MG TABLET 6 MG PO (21:46)
[2024-11-17] MEDS: Acetaminophen 325 MG TABLET 650 MG PO (21:46)
[2024-11-18] VITALS (10 sets, daily range): BP systolic 122–154; BP diastolic 62–80; PULSE 54–86; RESP 14–19; TEMP 36–36.8; O2SAT 93–98
[2024-11-18] MEDS: Ampicillin Sodium/Sulbactam Na 3 GM in 0.9 % Sodium Chloride 100 ML IV ×4 (04:09→21:28)
[2024-11-18 05:57] LABS: MANUAL DIFF FLAG NO
[2024-11-18 06:05] LABS: Basophils Percent Auto 0.3 % (0-2); Eosinophils Absolute Auto 0.1 X10*3/uL (0.0-0.4); Eosinophils Percent Auto 0.9 % (0-4); Hematocrit 33.2 % (42.0-52.0); Hemoglobin 11.2 g/dl (14.0-18.0); Imm Gran Abs Auto 0.03 X10*3/uL (0.00-0.03); Imm Gran Pct Auto 0.4 % (0.0-0.4); Lymphocytes Percent Auto 27.1 % (20-40); Mean Corpuscular HGB Conc 33.7 g/dl (31.0-36.0); Mean Corpuscular Hemoglobin 28.7 pg (27.0-33.0); Mean Corpuscular Volume 85.1 fL (80.0-98.0); Monocytes Absolute Auto 0.8 X10*3/uL (0.1-1.2); Monocytes Percent Auto 10.7 % (2-11); Neutrophils Absolute Auto 4.5 x10*3/uL (2.0-8.3); Neutrophils Percent Auto 60.6 % (45-73); Platelet Count 290 X10*3/uL (160-400); Red Cell Distribution Width 14.4 % (11.0-16.0); White Blood Count 7.4 X10*3/uL (4.8-10.8)
[2024-11-18 06:25] LABS: Anion Gap 11 (12-20); Blood Urea Nitrogen 10 mg/dL (9-16); Calcium 8.9 mg/dL (8.4-10.2); Carbon Dioxide 26 mmol/L (22-29); Chloride 108 mmol/L (96-108); Creatinine Clr Calc Pharmacy 86.7; Estimated Glomerular Filt Rate > 60; Glucose Random 177 mg/dL (60-115); Potassium 3.3 mmol/L (3.3-5.1); Sodium 142 mmol/L (135-145)
[2024-11-18 07:22] LABS: Glucose, Whole Blood 173 mg/dL (60-115)
[2024-11-18] MEDS: Sodium Chloride Tab 1 GM TABLET PO ×2 (07:38→21:28)
[2024-11-18] MEDS: risperiDONE 0.5 MG TABLET 1.5 MG PO (07:38)
[2024-11-18] MEDS: Tamsulosin HCL 0.4 MG CAPSULE PO (07:39)
[2024-11-18] MEDS: Clopidogrel Bisulfate 75 MG TABLET PO (07:39)
[2024-11-18] MEDS: amLODIPine Besylate 5 MG TABLET PO (07:39)
[2024-11-18] MEDS: Magnesium Oxide 400 MG TABLET PO ×2 (07:40→21:28)
[2024-11-18] MEDS: Finasteride 5 MG TABLET PO (07:40)
[2024-11-18] MEDS: Insulin Lispro 100 UNIT/ML 3 ML VIAL SUBCUT ×4 (07:45→21:28)
[2024-11-18] MEDS: Insulin Glargine,Hum.rec.anlog 100 UNIT/ML 10 ML VIAL 10 UNIT SUBCUT (07:46)
[2024-11-18] MEDS: 0.9 % Sodium Chloride Flush 3 ML SYRINGE IVFLUSH ×3 (07:47→21:29)
[2024-11-18 08:22] LABS: Magnesium 1.8 mg/dL (1.6-2.6)
[2024-11-18] MEDS: Albuterol/Iprat 2.5/0.5MG 3 ML AMPUL.NEB INHALE ×4 (08:31→19:20)
--- NOTE | 2024-11-18 09:12 | MHC.CM.PN ---
HARRY DELIVERED TO HCP ANA ROSA AREVALO VIA TELEPHONE. YELLOW COPY LEFT AT PT BEDSIDE. 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 +HCP ON FILE AND VERIFIED. DP: PT WILL RETURN TO [facility] ON DC VIA BLS. RETURN REFERRAL SENT. CM WILL CONTINUE TO FOLLOW FOR ANY CHANGE TO DC NEEDS.
--- NOTE | 2024-11-18 10:29 | MHC.SL.SWA ---
Speech Pathologist Impression: Mild to moderate oropharyngeal dysphagia d/t weakness, question influence of CVA hx. Pending MBSS while inpatient to visualize physiological function of swallow mechanism Risk of Aspiration Due to: Reduced Cognition Weak Cough Weak Voice Dysphasia Diet Status: Liquid Consistency and Strategies for Safe Swallow: Liquid Intake Recommendation: [place] Thick Liquid Intake Strategies: Small Sips No Straws Solid Food Consistency: Dietary Recommendations: Pureed (NDD1) Additional Modifications to Solid Foods: Oral Medication Intake: Crushed with Puree Please contact the pharmacy regarding appropriate crushable or liquid drug formulations that are available whenever modified delivery is recommended. Compensatory Strategies and Precautions to be Taken for Safe Swallow: Sitting Upright (90 deg) No Straw Small Bites and Sips Rate of Ingestion Change Supervision While Eating and Drinking for Safe Swallow: Total Assistance (1:1) Foods to Avoid: Swallowing Recommended Treatments: Compens. Strategy Educat. Recommendation for Speech: Modified Barium Swallow Study - Inpatient Comment: Pt endorsed hx of dysphagia for a few months, endorsed neck/back pain during bedside swallow eval. Pt last seen by [facility] 11/11/24 while inpatient, was on puree and thins at that time. MBSS pending to determine most appropriate diet, pt on NDD1 w/NTL at this time. Frequency/Duration: M-F daily Date Range for Service Req: Timeline to reassess: Regional Climate Change Analyst Clinican/Clinical Fellow: No Supervisory Statement: I have reviewed and agree with the student/clinical fellow's documentation: N/A Speech Language Pathologist: Penny Segundo M.S., [facility]
[2024-11-18] MEDS: Acetaminophen 325 MG TABLET 650 MG PO (11:27)
[2024-11-18 11:33] LABS: Glucose, Whole Blood 177 mg/dL (60-115)
[2024-11-18 11:56] LABS: MRSA Nasal PCR NEGATIVE (Negative); SA Nasal PCR NEGATIVE (Negative)
--- NOTE | 2024-11-18 13:26 | HO.PM.IMPN ---
Subjective Subjective Date of Service: 11/18/24 Interval History: c/o cough + dyspnea but not hypoxic no chest pain Review of Systems Review of Systems: Yes all other systems are reviewed and are negative Physical Exam Vital Signs: Vital Signs: Last Vital Signs Temp 97.8 F 11/18/24 11:43 Pulse 69 11/18/24 11:43 Resp 19 11/18/24 11:43 BP 127/73 11/18/24 11:43 Pulse Ox 96 11/18/24 11:43 O2 Del Method Room Air 11/18/24 11:43 BMI result Body Mass Index 25.0 Gen: in no acute distress HEENT: sclera anicteric, moist mucus membranes Neck: supple Lungs: inspiratory crackles + rhonchi R base Heart: regular rate and rhythm, no murmurs Abd: soft, non-tender, non-distended Ext: no edema Skin: warm/well-perfused Neuro: alert and oriented to self/place/day [not month/year], confused about situation, no focal findings Psych: impaired insight Objective Data Active Medications Acetaminophen (Acetaminophen 325 Mg Tablet) 650 mg PO Q6H PRN PRN Reason: Pain, Mild 1-3,fever,headache Last Admin: 11/18/24 11:27 Dose: 650 mg Documented By: TY Albuterol/Ipratropium (Albuterol/Iprat 2.5/0.5mg 3 Ml Ampul.Neb) 3 ml INHALE RQID REPLACED BY [facility] Last Admin: 11/18/24 11:33 Dose: 3 ml Documented By: APOLINAR Amlodipine Besylate (Amlodipine Besylate 5 Mg Tablet) 5 mg PO DAILY REPLACED BY [facility]; Protocol Last Admin: 11/18/24 07:39 Dose: 5 mg Documented By: TY Atorvastatin Calcium (Atorvastatin Calcium 40 Mg Tablet) 40 mg PO BEDTIME REPLACED BY [facility] Last Admin: 11/17/24 20:39 Dose: 40 mg Documented By: EDITH Bisacodyl (Bisacodyl 10 Mg Supp.Rect) 10 mg [place] DAILY PRN PRN Reason: if no BM for 8 hours after MOM Calcium Carbonate (Calcium Carbonate 750 Mg Tab.Chew) 750 mg PO Q4H PRN PRN Reason: Heartburn Clopidogrel Bisulfate (Clopidogrel Bisulfate 75 Mg Tablet) 75 mg PO DAILY REPLACED BY [facility] Last Admin: 11/18/24 07:39 Dose: 75 mg Documented By: TY Enoxaparin Sodium (Enoxaparin Sodium 40 Mg/0.4 Ml Syringe) 40 mg SUBCUT Q24H REPLACED BY [facility] Last Admin: 11/17/24 16:40 Dose: 40 mg Documented By: MOHINDER Finasteride (Finasteride 5 Mg Tablet) 5 mg PO DAILY REPLACED BY [facility] Last Admin: 11/18/24 07:40 Dose: 5 mg Documented By: TY Ampicillin Sodium/Sulbactam (Sodium 3 gm/ Sodium Chloride) 100 mls @ 200 mls/hr IV Q6H REPLACED BY [facility] Last Infusion: 11/18/24 12:06 Dose: Infused Documented By: TY Insulin Glargine (Insulin Glargine,Hum.Rec.Anlog 100 Unit/Ml 10 Ml Vial) 10 unit SUBCUT DAILY REPLACED BY [facility] Last Admin: 11/18/24 07:46 Dose: 10 unit Documented By: TY Insulin Human Lispro (Insulin Lispro 100 Unit/Ml 3 Ml Vial) 0 unit SUBCUT QIDACHS REPLACED BY [facility]; Protocol Last Admin: 11/18/24 11:42 Dose: 2 unit Documented By: TY Magnesium Hydroxide (Milk Of Magnesia 30 Ml Oral.Susp) 30 ml PO DAILY PRN PRN Reason: Constipation Magnesium Oxide (Magnesium Oxide 400 Mg Tablet) 400 mg PO BID REPLACED BY [facility] Last Admin: 11/18/24 07:40 Dose: 400 mg Documented By: TY Melatonin (Melatonin 3 Mg Tablet) 6 mg PO BEDTIME PRN PRN Reason: Insomnia Last Admin: 11/17/24 21:46 Dose: 6 mg Documented By: EDITH Metoprolol Succinate (Metoprolol Succinate Er 50 Mg Tab.Er.24h) 50 mg PO DAILY REPLACED BY [facility]; Protocol Last Admin: 11/18/24 07:39 Dose: Not Given Documented By: TY Non-Admin Reason: Decreased Heart Rate Mirtazapine (Mirtazapine 15 Mg Tablet) 15 mg PO BEDTIME REPLACED BY [facility] Last Admin: 11/17/24 20:40 Dose: 15 mg Documented By: EDITH Prednisone (Prednisone 20 Mg Tablet) 40 mg PO DAILY REPLACED BY [facility] Risperidone (Risperidone 0.5 Mg Tablet) 1.5 mg PO DAILY@0900 REPLACED BY [facility] Last Admin: 11/18/24 07:38 Dose: 1.5 mg Documented By: TY Sodium Chloride (0.9 % Sodium Chloride Flush 3 Ml Syringe) 3 ml IVFLUSH QSHIFT REPLACED BY [facility] Last Admin: 11/18/24 07:47 Dose: 3 ml Documented By: TY Sodium Chloride (Sodium Chloride Tab 1 Gm Tablet) 1 gm PO BID REPLACED BY [facility] Last Admin: 11/18/24 07:38 Dose: 1 gm Documented By: TY Tamsulosin HCl (Tamsulosin Hcl 0.4 Mg Capsule) 0.4 mg PO DAILY REPLACED BY [facility] Last Admin: 11/18/24 07:39 Dose: 0.4 mg Documented By: TY Trazodone HCl (Trazodone Hcl 100 Mg Tablet) 100 mg PO BEDTIME REPLACED BY [facility] Last Admin: 11/17/24 20:39 Dose: 100 mg Documented By: EDITH Labs 11/18/24 05:06 11/18/24 05:06 Labs: Laboratory Results - last 24 hr 11/17/24 11/17/24 11/17/24 14:11 15:19 16:45 MCV MCH MCHC RDW Plt Count MPV Immature Gran % (Auto) Neut % (Auto) Lymph % (Auto) [place] % (Auto) Eos % (Auto) Baso % (Auto) Lymph # (Auto) [place] # (Auto) Eos # (Auto) Baso # (Auto) Abs Immat Gran (auto) Absolute Neuts (auto) Absolute Nucleated RBC Nucleated RBC % (auto) VBG pH 7.43 VBG pCO2 31 VBG pO2 77 VBG HCO3 21 L VBG O2 Saturation 96.0 VBG Base Excess -2.2 Anion Gap Estim Creat Clear Calc Estimated GFR POC Glucose Random Glucose Lactic Acid 3.4 H* Lactic Acid F/U @ 2Hr 2.4 H* Lactic Acid F/U @ 4Hr Calcium Magnesium Procalcitonin 0.03 Nasal Screen MRSA (PCR) Nasal S. aureus Screen Nasal MRSA/S.aureus Interp 11/17/24 11/17/24 11/17/24 18:14 19:07 20:00 MCV MCH MCHC RDW Plt Count MPV Immature Gran % (Auto) Neut % (Auto) Lymph % (Auto) [place] % (Auto) Eos % (Auto) Baso % (Auto) Lymph # (Auto) [place] # (Auto) Eos # (Auto) Baso # (Auto) Abs Immat Gran (auto) Absolute Neuts (auto) Absolute Nucleated RBC Nucleated RBC % (auto) VBG pH VBG pCO2 VBG pO2 VBG HCO3 VBG O2 Saturation VBG Base Excess Anion Gap Estim Creat Clear Calc Estimated GFR POC Glucose 201 H 144 H Random Glucose Lactic Acid Lactic Acid F/U @ 2Hr Lactic Acid F/U @ 4Hr 1.9 Calcium Magnesium Procalcitonin Nasal Screen MRSA (PCR) Nasal S. aureus Screen Nasal MRSA/S.aureus Interp 11/18/24 11/18/24 11/18/24 05:06 07:18 10:38 MCV 85.1 MCH 28.7 MCHC 33.7 RDW 14.4 Plt Count 290 MPV 9.0 L Immature Gran % (Auto) 0.4 Neut % (Auto) 60.6 Lymph % (Auto) 27.1 [place] % (Auto) 10.7 Eos % (Auto) 0.9 Baso % (Auto) 0.3 Lymph # (Auto) 2.0 [place] # (Auto) 0.8 Eos # (Auto) 0.1 Baso # (Auto) 0.0 Abs Immat Gran (auto) 0.03 Absolute Neuts (auto) 4.5 Absolute Nucleated RBC 0.000 Nucleated RBC % (auto) 0.0 VBG pH VBG pCO2 VBG pO2 VBG HCO3 VBG O2 Saturation VBG Base Excess Anion Gap 11 L Estim Creat Clear Calc 86.7 Estimated GFR > 60 POC Glucose 173 H Random Glucose 177 H Lactic Acid Lactic Acid F/U @ 2Hr Lactic Acid F/U @ 4Hr Calcium 8.9 Magnesium 1.8 Procalcitonin Nasal Screen MRSA (PCR) NEGATIVE Nasal S. aureus Screen NEGATIVE Nasal MRSA/S.aureus Interp SEE NOTE 11/18/24 11:28 MCV MCH MCHC RDW Plt Count MPV Immature Gran % (Auto) Neut % (Auto) Lymph % (Auto) [place] % (Auto) Eos % (Auto) Baso % (Auto) Lymph # (Auto) [place] # (Auto) Eos # (Auto) Baso # (Auto) Abs Immat Gran (auto) Absolute Neuts (auto) Absolute Nucleated RBC Nucleated RBC % (auto) VBG pH VBG pCO2 VBG pO2 VBG HCO3 VBG O2 Saturation VBG Base Excess Anion Gap Estim Creat Clear Calc Estimated GFR POC Glucose 177 H Random Glucose Lactic Acid Lactic Acid F/U @ 2Hr Lactic Acid F/U @ 4Hr Calcium Magnesium Procalcitonin Nasal Screen MRSA (PCR) Nasal S. aureus Screen Nasal MRSA/S.aureus Interp Microbiology Microbiology Results: Microbiology 11/17/24 Unknown Urine Culture - Final Urine clean catch - Clean Catch Midstream No growth. Assessment and Plan (1) Influenza A: Status: Acute Plan d2 for 74yo M with history of cognitive impairment, HFpEF 55-60%, HTN, DM2, history of hemorrhagic CVA with subsequent gait instability, remote history of alcohol abuse, BPH with urinary retention now with a chronic indwelling Gross catheter, and recent influenza sent to the ED from [facility] due to lethargy and confusion acute metabolic encephalopathy - possibly due to lingering effects of influenza vs. prednisone vs. pneumonia post-influenza vs aspiration PNA - CT chest, follow BCx - 11/17- ampicillin-sulbactam - completed full course of oseltamivir - KENNEL ATTENDANT: NDD1 solids, NTL hypoMg - repleted DM2 - hold OHGs, give correction-dose lispro chronic HFpEF - euvolemic, not on chronic diuretics BPH - chronic Gross, continue finasteride + tamsulosin hx CVA - continue atorvastatin + clopidogrel HTN - continue amlodipine depression with psychosis - continue risperidone + mirtazapine + trazodone - may need Psychiatry consult if psychosis does not resolve VTE ppx - enoxaparin dispo - eventual return to LTC In my clinical judgment, the patient requires continued inpatient hospitalization for the following reasons: IV ABX, encephalopathy Total time managing care of this patient today: 40 minutes. Quality Stroke Does the patient have a stroke diagnosis?: No VTE Prior VTE?: No VTE Risk Level:: Medical - moderate - high VTE Device Contraindication: Treatment Not Indicated VTE Drug Contraindication: N/A - Med Ordered
--- NOTE | 2024-11-18 15:14 | MHC.SPEECHCO ---
Radiologist unavailable for MBSS this date. MBSS will be scheduled for 11/19 or 11/20 depending on SUBMERSIBLE PILOT/Radiology availability.
[2024-11-18 16:02] LABS: Glucose, Whole Blood 167 mg/dL (60-115)
[2024-11-18] MEDS: Enoxaparin Sodium 40 MG/0.4 ML SYRINGE SUBCUT (16:26)
[2024-11-18 20:35] LABS: Glucose, Whole Blood 207 mg/dL (60-115)
[2024-11-18] MEDS: traZODone HCL 100 MG TABLET PO (21:28)
[2024-11-18] MEDS: Mirtazapine 15 MG TABLET PO (21:28)
[2024-11-18] MEDS: Atorvastatin Calcium 40 MG TABLET PO (21:28)
[2024-11-19] VITALS (9 sets, daily range): BP systolic 109–151; BP diastolic 58–82; PULSE 59–96; RESP 16–18; TEMP 36–36.9; O2SAT 94–99
[2024-11-19] MEDS: Albuterol/Iprat 2.5/0.5MG 3 ML AMPUL.NEB INHALE ×4 (01:42→19:18)
[2024-11-19] MEDS: Ampicillin Sodium/Sulbactam Na 3 GM in 0.9 % Sodium Chloride 100 ML IV (04:20)
[2024-11-19 07:46] LABS: Glucose, Whole Blood 144 mg/dL (60-115)
[2024-11-19] MEDS: risperiDONE 0.5 MG TABLET 1.5 MG PO (07:59)
[2024-11-19] MEDS: Acetaminophen 325 MG TABLET 650 MG PO (07:59)
[2024-11-19] MEDS: Sodium Chloride Tab 1 GM TABLET PO ×2 (07:59→20:52)
[2024-11-19] MEDS: Clopidogrel Bisulfate 75 MG TABLET PO (07:59)
[2024-11-19] MEDS: Insulin Glargine,Hum.rec.anlog 100 UNIT/ML 10 ML VIAL 10 UNIT SUBCUT (08:00)
[2024-11-19] MEDS: Magnesium Oxide 400 MG TABLET PO ×2 (08:00→20:52)
[2024-11-19] MEDS: Finasteride 5 MG TABLET PO (08:00)
[2024-11-19] MEDS: Metoprolol Succinate ER 50 MG TAB.ER.24H PO (08:00)
[2024-11-19] MEDS: Tamsulosin HCL 0.4 MG CAPSULE PO (08:00)
[2024-11-19] MEDS: amLODIPine Besylate 5 MG TABLET PO (08:00)
[2024-11-19] MEDS: 0.9 % Sodium Chloride Flush 3 ML SYRINGE IVFLUSH ×3 (08:14→20:59)
--- NOTE | 2024-11-19 09:44 | P.PNIM_ITS ---
Subjective Subjective Date of Service: 11/19/24 Interval History: sleepy, no complaints dyspnea resolved Review of Systems Review of Systems: Yes all other systems are reviewed and are negative Physical Exam 2 Vital Signs: Vital Signs: Last Vital Signs Temp 98.4 F 11/19/24 07:42 Pulse 70 11/19/24 07:42 Resp 16 11/19/24 07:42 BP 135/70 11/19/24 07:42 Pulse Ox 96 11/19/24 07:42 O2 Del Method Room Air 11/19/24 07:42 BMI result Body Mass Index 25.0 Gen: in no acute distress HEENT: sclera anicteric, moist mucus membranes Neck: supple Lungs: diminished Heart: regular rate and rhythm, no murmurs Abd: soft, non-tender, non-distended Ext: no edema Skin: warm/well-perfused Neuro: alert and oriented to self/place/day [not month/year], confused about situation, no focal findings Psych: impaired insight Objective Data Active Medications Acetaminophen (Acetaminophen 325 Mg Tablet) 650 mg PO Q6H PRN PRN Reason: Pain, Mild 1-3,fever,headache Last Admin: 11/19/24 07:59 Dose: 650 mg Documented By: TY Albuterol/Ipratropium (Albuterol/Iprat 2.5/0.5mg 3 Ml Ampul.Neb) 3 ml INHALE RQID [facility] Last Admin: 11/19/24 07:53 Dose: Not Given Documented By: APOLINAR Non-Admin Reason: Patient Asleep Albuterol/Ipratropium (Albuterol/Iprat 2.5/0.5mg 3 Ml Ampul.Neb) 3 ml INHALE Q4H PRN PRN Reason: Wheezing Last Admin: 11/19/24 01:42 Dose: 3 ml Documented By: KEVAN Amlodipine Besylate (Amlodipine Besylate 5 Mg Tablet) 5 mg PO DAILY [facility]; Protocol Last Admin: 11/19/24 08:00 Dose: 5 mg Documented By: TY Atorvastatin Calcium (Atorvastatin Calcium 40 Mg Tablet) 40 mg PO BEDTIME [facility] Last Admin: 11/18/24 21:28 Dose: 40 mg Documented By: ROSEMARIE Bisacodyl (Bisacodyl 10 Mg Supp.Rect) 10 mg [place] DAILY PRN PRN Reason: if no BM for 8 hours after MOM Calcium Carbonate (Calcium Carbonate 750 Mg Tab.Chew) 750 mg PO Q4H PRN PRN Reason: Heartburn Clopidogrel Bisulfate (Clopidogrel Bisulfate 75 Mg Tablet) 75 mg PO DAILY [facility] Last Admin: 11/19/24 07:59 Dose: 75 mg Documented By: TY Enoxaparin Sodium (Enoxaparin Sodium 40 Mg/0.4 Ml Syringe) 40 mg SUBCUT Q24H [facility] Last Admin: 11/18/24 16:26 Dose: 40 mg Documented By: TY Finasteride (Finasteride 5 Mg Tablet) 5 mg PO DAILY [facility] Last Admin: 11/19/24 08:00 Dose: 5 mg Documented By: TY Insulin Glargine (Insulin Glargine,Hum.Rec.Anlog 100 Unit/Ml 10 Ml Vial) 10 unit SUBCUT DAILY [facility] Last Admin: 11/19/24 08:00 Dose: 10 unit Documented By: TY Insulin Human Lispro (Insulin Lispro 100 Unit/Ml 3 Ml Vial) 0 unit SUBCUT QIDACHS [facility]; Protocol Last Admin: 11/19/24 08:10 Dose: Not Given Documented By: TY Non-Admin Reason: No Insulin Coverage Magnesium Hydroxide (Milk Of Magnesia 30 Ml Oral.Susp) 30 ml PO DAILY PRN PRN Reason: Constipation Magnesium Oxide (Magnesium Oxide 400 Mg Tablet) 400 mg PO BID [facility] Last Admin: 11/19/24 08:00 Dose: 400 mg Documented By: TY Melatonin (Melatonin 3 Mg Tablet) 6 mg PO BEDTIME PRN PRN Reason: Insomnia Last Admin: 11/17/24 21:46 Dose: 6 mg Documented By: EDITH Metoprolol Succinate (Metoprolol Succinate Er 50 Mg Tab.Er.24h) 50 mg PO DAILY [facility]; Protocol Last Admin: 11/19/24 08:00 Dose: 50 mg Documented By: TY Mirtazapine (Mirtazapine 15 Mg Tablet) 15 mg PO BEDTIME [facility] Last Admin: 11/18/24 21:28 Dose: 15 mg Documented By: ROSEMARIE Prednisone (Prednisone 20 Mg Tablet) 40 mg PO DAILY [facility] Risperidone (Risperidone 0.5 Mg Tablet) 1.5 mg PO DAILY@0900 [facility] Last Admin: 11/19/24 07:59 Dose: 1.5 mg Documented By: TY Sodium Chloride (0.9 % Sodium Chloride Flush 3 Ml Syringe) 3 ml IVFLUSH QSHIFT [facility] Last Admin: 11/19/24 08:14 Dose: 3 ml Documented By: TY Sodium Chloride (Sodium Chloride Tab 1 Gm Tablet) 1 gm PO BID [facility] Last Admin: 11/19/24 07:59 Dose: 1 gm Documented By: TY Tamsulosin HCl (Tamsulosin Hcl 0.4 Mg Capsule) 0.4 mg PO DAILY [facility] Last Admin: 11/19/24 08:00 Dose: 0.4 mg Documented By: TY Trazodone HCl (Trazodone Hcl 100 Mg Tablet) 100 mg PO BEDTIME [facility] Last Admin: 11/18/24 21:28 Dose: 100 mg Documented By: ROSEMARIE Labs 11/18/24 05:06 11/18/24 05:06 Labs: Laboratory Results - last 24 hr 11/18/24 11/18/24 11/18/24 10:38 11:28 15:58 POC Glucose 177 H 167 H Nasal Screen MRSA (PCR) NEGATIVE Nasal S. aureus Screen NEGATIVE Nasal MRSA/S.aureus Interp SEE NOTE 11/18/24 11/19/24 20:31 07:39 POC Glucose 207 H 144 H Nasal Screen MRSA (PCR) Nasal S. aureus Screen Nasal MRSA/S.aureus Interp Impressions Chest CT 11/18/24 14:36 IMPRESSION: 1. No airspace opacities are seen in the lungs to suggest pneumonia. 2. Cholelithiasis. Chronic pancreatitis. Electronically signed by: Klever Epperson MD 11/18/2024 03:07 PM EDT Microbiology Microbiology Results: Microbiology 11/17/24 15:11 Blood Culture - Preliminary Blood - Venous No growth after 24 hours. 11/17/24 15:11 Blood Culture - Preliminary Blood - Venous No growth after 24 hours. 11/17/24 Unknown Urine Culture - Final Urine clean catch - Clean Catch Midstream No growth. Assessment and Plan (1) Influenza A: Status: Acute Plan d3 for 74yo M with history of cognitive impairment, HFpEF 55-60%, HTN, DM2, history of hemorrhagic CVA with subsequent gait instability, remote history of alcohol abuse, BPH with urinary retention and a chronic indwelling Gross catheter, and recent influenza sent to the ED from [facility] due to lethargy and confusion acute metabolic encephalopathy - possibly due to lingering effects of influenza vs. prednisone, no evidence for pneumonia - SERVICE STATION EQUIPMENT MECHANIC consulted: NDD1 solids + NTL for now, MBSS ordered - no PNA on CT chest, will d/c ampicillin-sulbactam - already completed full course of oseltamivir hypoMg - repleted DM2 - hold OHGs, give correction-dose lispro chronic HFpEF - euvolemic, not on chronic diuretics BPH - chronic Gross, continue finasteride + tamsulosin hx CVA - continue atorvastatin + clopidogrel HTN - continue amlodipine depression with psychosis - continue risperidone + mirtazapine + trazodone - may need Psychiatry consult if psychosis does not resolve VTE ppx - enoxaparin dispo - eventual return to LTC In my clinical judgment, the patient requires continued inpatient hospitalization for the following reasons: encephalopathy, MBSS Total time managing care of this patient today: 35 minutes. Quality Stroke Does the patient have a stroke diagnosis?: No VTE Prior VTE?: No VTE Risk Level:: Medical - moderate - high VTE Device Contraindication: Treatment Not Indicated VTE Drug Contraindication: N/A - Med Ordered
[2024-11-19 11:27] LABS: Glucose, Whole Blood 150 mg/dL (60-115)
--- NOTE | 2024-11-19 12:41 | MHC.CM.PN ---
PT WAS MADE I/P. HCP ANA ROSA UPDATED AND IMM WAS DELIVERED.
[2024-11-19 16:32] LABS: Glucose, Whole Blood 179 mg/dL (60-115)
[2024-11-19] MEDS: Insulin Lispro 100 UNIT/ML 3 ML VIAL SUBCUT ×2 (16:52→20:52)
[2024-11-19] MEDS: Enoxaparin Sodium 40 MG/0.4 ML SYRINGE SUBCUT (16:52)
[2024-11-19 20:47] LABS: Glucose, Whole Blood 161 mg/dL (60-115)
[2024-11-19] MEDS: Mirtazapine 15 MG TABLET PO (20:52)
[2024-11-19] MEDS: traZODone HCL 100 MG TABLET PO (20:52)
[2024-11-19] MEDS: Atorvastatin Calcium 40 MG TABLET PO (20:52)
[2024-11-20 04:00] VITALS: BP 137/72; PULSE 60; RESP 16; TEMP 36.3; O2SAT 98
[2024-11-20 07:23] VITALS: BP 139/72; PULSE 55; RESP 14; TEMP 36.4; O2SAT 99
[2024-11-20 07:33] LABS: Glucose, Whole Blood 120 mg/dL (60-115)
[2024-11-20] MEDS: risperiDONE 0.5 MG TABLET 1.5 MG PO (07:57)
[2024-11-20] MEDS: Magnesium Oxide 400 MG TABLET PO ×2 (07:58→19:54)
[2024-11-20] MEDS: Finasteride 5 MG TABLET PO (07:58)
[2024-11-20] MEDS: Clopidogrel Bisulfate 75 MG TABLET PO (07:58)
[2024-11-20] MEDS: amLODIPine Besylate 5 MG TABLET PO (07:58)
[2024-11-20] MEDS: Sodium Chloride Tab 1 GM TABLET PO ×2 (07:58→19:54)
[2024-11-20] MEDS: Metoprolol Succinate ER 50 MG TAB.ER.24H PO (07:58)
[2024-11-20] MEDS: Tamsulosin HCL 0.4 MG CAPSULE PO (07:58)
[2024-11-20] MEDS: Insulin Glargine,Hum.rec.anlog 100 UNIT/ML 10 ML VIAL 10 UNIT SUBCUT (07:59)
[2024-11-20] MEDS: 0.9 % Sodium Chloride Flush 3 ML SYRINGE IVFLUSH ×3 (07:59→19:54)
[2024-11-20 08:29] VITALS: PULSE 88; RESP 18; O2SAT 95
[2024-11-20] MEDS: Albuterol/Iprat 2.5/0.5MG 3 ML AMPUL.NEB INHALE ×3 (08:29→19:18)
--- NOTE | 2024-11-20 09:38 | MHC.SPEECHCO ---
MBSS is scheduled for 2pm today. Radiology to arrange for transport between 1:30-1:45.
--- NOTE | 2024-11-20 09:55 | P.PNIM_ITS ---
Subjective Subjective Date of Service: 11/20/24 Interval History: cough improved denies any hallucinations Review of Systems Review of Systems: Yes all other systems are reviewed and are negative Physical Exam 2 Vital Signs: Vital Signs: Last Vital Signs Temp 97.5 F 11/20/24 07:23 Pulse 88 11/20/24 08:29 Resp 18 11/20/24 08:29 BP 139/72 11/20/24 07:23 Pulse Ox 99 11/20/24 07:23 O2 Del Method Room Air 11/20/24 07:23 BMI result Body Mass Index 25.0 Gen: in no acute distress HEENT: sclera anicteric, moist mucus membranes Neck: supple Lungs: diminished Heart: regular rate and rhythm, no murmurs Abd: soft, non-tender, non-distended Ext: no edema Skin: warm/well-perfused Neuro: alert and oriented to self/place/day [not month/year], confused about situation, no focal findings Psych: impaired insight Objective Data Active Medications Acetaminophen (Acetaminophen 325 Mg Tablet) 650 mg PO Q6H PRN PRN Reason: Pain, Mild 1-3,fever,headache Last Admin: 11/19/24 07:59 Dose: 650 mg Documented By: TY Albuterol/Ipratropium (Albuterol/Iprat 2.5/0.5mg 3 Ml Ampul.Neb) 3 ml INHALE RQID [facility] Last Admin: 11/20/24 08:29 Dose: 3 ml Documented By: ANKIT Albuterol/Ipratropium (Albuterol/Iprat 2.5/0.5mg 3 Ml Ampul.Neb) 3 ml INHALE Q4H PRN PRN Reason: Wheezing Last Admin: 11/19/24 01:42 Dose: 3 ml Documented By: KEVAN Amlodipine Besylate (Amlodipine Besylate 5 Mg Tablet) 5 mg PO DAILY [facility]; Protocol Last Admin: 11/20/24 07:58 Dose: 5 mg Documented By: MARIA DEL CARMEN Atorvastatin Calcium (Atorvastatin Calcium 40 Mg Tablet) 40 mg PO BEDTIME [facility] Last Admin: 11/19/24 20:52 Dose: 40 mg Documented By: EDITH Bisacodyl (Bisacodyl 10 Mg Supp.Rect) 10 mg [place] DAILY PRN PRN Reason: if no BM for 8 hours after MOM Calcium Carbonate (Calcium Carbonate 750 Mg Tab.Chew) 750 mg PO Q4H PRN PRN Reason: Heartburn Clopidogrel Bisulfate (Clopidogrel Bisulfate 75 Mg Tablet) 75 mg PO DAILY [facility] Last Admin: 11/20/24 07:58 Dose: 75 mg Documented By: MARIA DEL CARMEN Enoxaparin Sodium (Enoxaparin Sodium 40 Mg/0.4 Ml Syringe) 40 mg SUBCUT Q24H [facility] Last Admin: 11/19/24 16:52 Dose: 40 mg Documented By: TY Finasteride (Finasteride 5 Mg Tablet) 5 mg PO DAILY [facility] Last Admin: 11/20/24 07:58 Dose: 5 mg Documented By: MARIA DEL CARMEN Guaifenesin/Dextromethorphan (Guaifenesin Dm 100/10/5 Ml 5 Ml Syrup) 5 ml PO Q4H PRN PRN Reason: Cough Insulin Glargine (Insulin Glargine,Hum.Rec.Anlog 100 Unit/Ml 10 Ml Vial) 10 unit SUBCUT DAILY [facility] Last Admin: 11/20/24 07:59 Dose: 10 unit Documented By: MARIA DEL CARMEN Insulin Human Lispro (Insulin Lispro 100 Unit/Ml 3 Ml Vial) 0 unit SUBCUT QIDACHS [facility]; Protocol Last Admin: 11/20/24 07:35 Dose: Not Given Documented By: MARIA DEL CARMEN Non-Admin Reason: No Insulin Coverage Magnesium Hydroxide (Milk Of Magnesia 30 Ml Oral.Susp) 30 ml PO DAILY PRN PRN Reason: Constipation Magnesium Oxide (Magnesium Oxide 400 Mg Tablet) 400 mg PO BID [facility] Last Admin: 11/20/24 07:58 Dose: 400 mg Documented By: MARIA DEL CARMEN Melatonin (Melatonin 3 Mg Tablet) 6 mg PO BEDTIME PRN PRN Reason: Insomnia Last Admin: 11/17/24 21:46 Dose: 6 mg Documented By: EDITH Metoprolol Succinate (Metoprolol Succinate Er 50 Mg Tab.Er.24h) 50 mg PO DAILY [facility]; Protocol Last Admin: 11/20/24 07:58 Dose: 50 mg Documented By: MARIA DEL CARMEN Mirtazapine (Mirtazapine 15 Mg Tablet) 15 mg PO BEDTIME [facility] Last Admin: 11/19/24 20:52 Dose: 15 mg Documented By: EDITH Prednisone (Prednisone 20 Mg Tablet) 40 mg PO DAILY [facility] Risperidone (Risperidone 0.5 Mg Tablet) 1.5 mg PO DAILY@0900 [facility] Last Admin: 11/20/24 07:57 Dose: 1.5 mg Documented By: MARIA DEL CARMEN Sodium Chloride (0.9 % Sodium Chloride Flush 3 Ml Syringe) 3 ml IVFLUSH QSHIFT [facility] Last Admin: 11/20/24 07:59 Dose: 3 ml Documented By: MARIA DEL CARMEN Sodium Chloride (Sodium Chloride Tab 1 Gm Tablet) 1 gm PO BID [facility] Last Admin: 11/20/24 07:58 Dose: 1 gm Documented By: MARIA DEL CARMEN Tamsulosin HCl (Tamsulosin Hcl 0.4 Mg Capsule) 0.4 mg PO DAILY [facility] Last Admin: 11/20/24 07:58 Dose: 0.4 mg Documented By: MARIA DEL CARMEN Trazodone HCl (Trazodone Hcl 100 Mg Tablet) 100 mg PO BEDTIME [facility] Last Admin: 11/19/24 20:52 Dose: 100 mg Documented By: EDITH Labs 11/18/24 05:06 11/18/24 05:06 Labs: Laboratory Results - last 24 hr 11/19/24 11/19/24 11/19/24 11:18 16:27 20:42 POC Glucose 150 H 179 H 161 H 11/20/24 07:25 POC Glucose 120 H Microbiology Microbiology Results: Microbiology 11/17/24 15:11 Blood Culture - Preliminary Blood - Venous No growth after 48 hours. 11/17/24 15:11 Blood Culture - Preliminary Blood - Venous No growth after 48 hours. Assessment and Plan (1) Influenza A: Status: Resolved Plan d4 for 74yo M with history of cognitive impairment, HFpEF 55-60%, HTN, DM2, history of hemorrhagic CVA with subsequent gait instability, remote history of alcohol abuse, BPH with urinary retention and a chronic indwelling Gross catheter, and recent influenza sent to the ED from [facility] due to lethargy and confusion acute metabolic encephalopathy - possibly due to lingering effects of influenza vs. prednisone, no evidence for pneumonia - COMMUNICATIONS CONTROLLER consulted: NDD1 solids + NTL for now, MBSS ordered - no PNA on CT chest, d/c'ed ampicillin-sulbactam - already completed full course of oseltamivir hypoMg - repleted DM2 - hold OHGs, give correction-dose lispro chronic HFpEF - euvolemic, not on chronic diuretics BPH - chronic Gross, continue finasteride + tamsulosin hx CVA - continue atorvastatin + clopidogrel HTN - continue amlodipine depression with psychosis - continue risperidone + mirtazapine + trazodone - psychosis has resolved VTE ppx - enoxaparin dispo - eventual return to LTC In my clinical judgment, the patient requires continued inpatient hospitalization for the following reasons: encephalopathy, MBSS Total time managing care of this patient today: 35 minutes. Quality Stroke Does the patient have a stroke diagnosis?: No VTE Prior VTE?: No VTE Risk Level:: Medical - moderate - high VTE Device Contraindication: Treatment Not Indicated VTE Drug Contraindication: N/A - Med Ordered
[2024-11-20 11:13] LABS: Glucose, Whole Blood 198 mg/dL (60-115)
[2024-11-20] MEDS: Insulin Lispro 100 UNIT/ML 3 ML VIAL SUBCUT ×3 (12:00→20:04)
[2024-11-20] MEDS: Enoxaparin Sodium 40 MG/0.4 ML SYRINGE SUBCUT (15:18)
[2024-11-20 15:42] VITALS: BP 104/58; PULSE 60; RESP 14; TEMP 36.7; O2SAT 95
[2024-11-20 16:26] LABS: Glucose, Whole Blood 217 mg/dL (60-115)
--- NOTE | 2024-11-20 16:31 | MHC.CM.PN ---
Patient is not medically cleared for discharge. A MBSS ordered for question asiration with PO intake. DP return to [facility] once medically cleared.
[2024-11-20 16:32] VITALS: PULSE 95; RESP 20; O2SAT 99
--- NOTE | 2024-11-20 17:02 | MHC.SL.IMP ---
Date of Plan of Treatment: 11/20/24 Onset of Symptoms/Illness: 11/18/24 Date Treatment Started: 11/18/24 Admitting Diagnosis: Influenza A Primary Speech & Language Diagnosis: R13.12 Oropharyngeal Phase Dysphagia Secondary Speech & Language Diagnosis: R41.841 Cognitive communication disorder Reason for Today's Visit: 73026 Modified Barium Swallow Study Pre-evaluation Dietary Consistencies: Pureed (NDD1) Pre-evaluation Liquid Consistency: Nicholson Thick Pre-evaluation Medication Administration: Crushed with Puree Medical History: Modified Barium Swallow Study Fluoroscopic Evaluation of Swallowing Function CPT Code 08996 Evaluation Year: 2024 Reason for Study: Difficulty swallowing Referring Physician: Mario Flanagan MD Evaluating Clinician: Noemy Avalos MA, [facility] MACHINE OPERATOR Study Number: 1 Patient Name: Gadiel Arevalo Status: Inpatient, Stretcher Age: 86 Gender: Male Medical History Medical History 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 No PNA was evident on Chest CT. Patient was seen by GARNETT MACHINE OPERATOR at bedside on 11/18, recommended to start on pureed diet with nectar thick liquids, referred for MBSS to further assess. Patient comes from [facility] and his baseline diet and feeding needs are unknown. Pertinent medical history includes cognitive impairment, insulin dependent diabetes mellitus, hx hemorrhagic CVA, remote hx alcohol abuse. Oral Motor Exam Facial Symmetry: Facial Movement: Controlled Mouth Occlusion: Normal Oral-Facial Teeth Characteristics: Edentulous Oral-Facial Lip Pucker Description: Reduced ROM Oral-Facial Smile (Lips) Description: Reduced ROM Oral-Facial Puff Cheeks Description: Reduced Strength Tongue Size: Normal Tongue Frenum Length: Tongue Excursion Description: Normal Tongue Range of Movement Description: Reduced Tongue Speed of Movement Description: Reduced Tongue Strength of Movement (against opposing pressure): Reduced Tongue Movement Characteristics: Normal/Absent Food and Liquid Trials: Oral Impairment: Lip Closure: 1=Interlabial escape; no progression to anterior tip Oral Impairment: Tongue Control During Bolus Hold: 2=Posterior escape of less than half of bolus Oral Impairment: Bolus Preparation/Mastication: Did not test Oral Impairment: Bolus Transport/Lingual Motion: 3=Repetitive/disorganized tongue motion Oral Impairment: Oral Residue: 2=Residue collection on oral structures Oral Impairment:Initiation of Pharyngeal Swallow: 3=Bolus head in pyriforms Pharyngeal Impairment: Soft Palate Elevation: 0=No bolus between soft palate (SP)/pharyngeal wall (PW) Pharyngeal Impairment: Laryngeal Elevation: 1=Partial thyroid cartilage/arytenoids to epiglottic petiole movement Pharyngeal Impairment: Anterior Hyoid Excursion: 1=Partial anterior movement Pharyngeal Impairment: Epiglottic Movement: 1=Partial inversion Pharyngeal Impairment: Laryngeal Vestibular Closure:: 1=Incomplete: narrow column air/contrast in laryngeal vestibule Pharyngeal Impairment: Pharyngeal Stripping Wave: 1=Present: diminished Pharyngeal Impairment: Pharyngeal Contraction: Did not test Pharyngeal Impairment: Pharyngoesophageal Segment Openin=Partial distention/partial duration: partial obstruction of flow Pharyngeal Impairment: Tongue Base (TB) Retraction: 2=Narrow column of contrast/air between TB and posterior PW Pharyngeal Impairment: Pharyngeal Residue: 2=Collection of residue within or on pharyngeal structures Pharyngeal Impairment: Esophageal Clearance Upright Position: Did not test Impressions and Recommendations OBJECTIVE: Time-out: performed at 14:30 Evaluation Start: 14:00; Stop: 14:10 Patient Positioning: Seated 70-90 degrees Viewing Planes: LATERAL ONLY Contrast: MBSImP? Standardized Protocol using commercially prepared, standardized Barium viscosities, including: Varibar? THIN LIQUID (40% w/v, <15 cps) , Varibar? NECTAR (40% w/v, <150-450 cps) , Varibar? PUDDING (40% w/v, <5435-9763 cps) MBSImP ID: [id number] MBSImP Results: Lip closure for intraoral bolus containment resulted in interlabial escape, without progression to the anterior lip. Tongue control during bolus hold resulted in posterior escape of less than half of the bolus. Bolus preparation and mastication received the highest impairment score; solid not given due to patient safety concerns related to oral impairment. Bolus transport/lingual motion was with repetitive/disorganized motion of the tongue. Oral residue was a collection on oral structures. Initiation of the pharyngeal swallow occurred when the bolus head was in the pyriform sinuses. Soft palate elevation resulted in no bolus between the soft palate and the pharyngeal wall. Laryngeal elevation was decreased, with partial superior movement of the thyroid cartilage/partial approximation of the arytenoids to the epiglottic petiole. Anterior hyoid excursion demonstrated partial anterior movement. Epiglottic movement resulted in partial inversion. Laryngeal vestibular closure was incomplete, with a narrow column of air/contrast noted within the laryngeal vestibule at the height of the swallow. Pharyngeal stripping wave was present, but diminished. Pharyngeal contraction could not be determined due to logistical reasons not related to physiologic impairment. Pharyngoesophageal segment opening demonstrated partial distension/partial duration, with partial obstruction of bolus flow. Tongue base retraction allowed a narrow column of contrast or air between the retracted tongue base and the posterior pharyngeal wall. Pharyngeal residue was a collection of residue within or on pharyngeal structures. Esophageal clearance in the upright position could not be assessed due to logistical reasons not related to physiologic impairment. Oral Impairment Score: 13 Pharyngeal Impairment Score: 10 (absence of score, component 13) Esophageal Impairment Score: --- (absence of score, component 17) Laryngeal Penetration and Aspiration: Both Penetration and Aspiration were observed in today's study. Pudding-thick, Nicholson-thick Contrast entered the airway, remained above the vocal folds, and were ejected from the airway. Thin Contrast entered the airway, passed below the vocal folds, and no effort was made to eject. ASSESSMENT: This exam was conducted by the radiologist and the speech pathologist (GARNETT MACHINE OPERATOR). Patient was seated upright at 90 degrees in a stretcher for lateral view only. Teaspoon was presented by GARNETT MACHINE OPERATOR, while patient otherwise took the cup himself and self-administered sips. The following consistencies were trialed: nectar thick (via teaspoon, individual cups), thin (via teaspoon, individual cups, rapid cups), and puree. Patient produced slowed and repetitive posterior tongue pumping movements with poor bolus control, resulting in premature posterior escape with contrast pooling in the valleculae and pyriform sinuses before the pharyngeal swallow trigger was initiated. Mild residue coated the tongue, palate, and floor of mouth, and mostly cleared with subsequent swallows. No evidence of nasopharyngeal reflux. Partial laryngeal elevation, with partial anterior hyoid excursion, partial epiglottic inversion, and partial laryngeal vestibular closure. There was flash penetration above the vocal folds with trials of nectar thick liquid via teaspoon and cup. Trace penetration above the vocal folds seen with puree as well, which also cleared. Aspiration below the vocal folds when patient took sequential sips of thin liquid. Patient produced a delayed cough 1-2 minutes after presentation. Mild pooling seen in the valleculae and pyriform sinuses, which mostly cleared with subsequent swallows. Liquid Intake Recommendation: Nicholson Thick Liquid Intake Strategies: Small Sips, No Straws Dietary Recommendations: Pureed (NDD1) Medication Administration: Crushed with Puree Please contact the pharmacy regarding appropriate crushable or liquid drug formulations that are available whenever modified delivery is recommended. Compensatory Strategies Recommended: Sitting Upright (90 deg), Double Swallow, No Straw, Small Bites and Sips, Rate of Ingestion Change, Oral Check Supervision during eating and or drinking: Total Assistance (1:1) Recommended Treatments: Compens. Strategy Educat. Recommendation for Speech Therapy: Inpatient Speech Therapy; Speech Therapy through Rehab Facility Text Comment: Intake Recommendations: Route: PO Diet Grade: Puree Liquid Consistencies: Nicholson Post-Study Functional Oral Intake Scale (FOIS): 5- Total oral intake of multiple consistencies requiring special preparation Patient presents with moderate to severe oropharyngeal dysphagia, with notable impairments of bolus transport, delayed pharyngeal swallow trigger, and compromised airway protection. Patient produced slowed and repetitive tongue rocking movements, with premature posterior escape of bolus. Incomplete epiglottic inversion and incomplete laryngeal vestibular closure. There was penetration seen with nectar thick and puree consistencies. Aspiration during the swallow on trials of thin liquid, with delayed cough response. Mild residue in the oral and pharyngeal cavities mostly cleared on cued dry swallows. Therapy Recommendations: Recommend continue on PUREED diet (NDD1) and NECTAR THICK liquids, with pills CRUSHED in PUREE. Patient attempts to feed himself when handed silverware, but will need direct supervision and close monitoring at meal time. Provide assistance as needed to ensure containers are opened and accessible and to cue patient as needed for the following strategies: -Present small bites -Allow ample time for patient to swallow and check oral cavity for clearance before giving next bite -Liquids via teaspoon or controlled cup -Avoid straws -Take one small sip at a time -Avoid consecutive sips Therapy will be continued while inpatient. Patient will need continued speech therapy for the treatment of dysphagia at the next level of care. Prognosis for Improvement: The prognosis for the patient to meet nutritional needs by mouth is fair based on degree of impairment, stimulability for treatment. Long-Term Goals: ? The patient will tolerate the least restrictive diet with a safe/efficient swallow to maintain adequate nutrition and hydration. ? The patient and/or family will participate in further education for swallowing goals. Short Term Goals: ? Diet - The patient will tolerate a pureed diet with nectar thick liquids without signs or symptoms of penetration/aspiration 100% of the time. - The patient will participate in therapeutic PO trials with the GARNETT MACHINE OPERATOR. ? Guidelines - The patient will comply with/recall the following guidelines/strategies 100% of the time with maximum cuing: Nicholson-thick Liquid, Bolus Volume Change, Rate of Ingestion Change, Additional Swallow(s) per Bolus, No Straws. ? Education - The patient, family, caregiver, nurse will verbalize/demonstrate understanding of the results of this evaluation, the above recommendations, and the swallowing guidelines. Clinician - Supplemental, Miscellaneous Communication: It is important to note MBSS objective studies are snapshots in time and Patient function might vary with factors such as time of day or concomitant medical conditions. For this reason, the final treatment plan for this patient should rest with their medical care team. Additional recommendations should be considered with the totality of the Patient in mind. Thank for the opportunity to participate in the care of this patient. If you have any questions about the content of this report, please contact the [facility] at [facility]. Frequency/Duration: M-F while inpatient Date Range for Service Requested: Timeline to reassess: PRN Coiled Tubing Supervisor Clinician/Clinical Fellow: No Supervisory Statement: N/A Speech Language Pathologist: Noemy Avalos M.A., [facility]ACH[facility] OPER[facility]
[2024-11-20 19:17] VITALS: BP 115/59; PULSE 61; RESP 18; TEMP 36.8; O2SAT 97
[2024-11-20] MEDS: Atorvastatin Calcium 40 MG TABLET PO (19:53)
[2024-11-20] MEDS: Melatonin 3 MG TABLET 6 MG PO (19:53)
[2024-11-20] MEDS: Acetaminophen 325 MG TABLET 650 MG PO (19:53)
[2024-11-20] MEDS: traZODone HCL 100 MG TABLET PO (19:54)
[2024-11-20] MEDS: Mirtazapine 15 MG TABLET PO (19:54)
[2024-11-20 19:59] LABS: Glucose, Whole Blood 207 mg/dL (60-115)
[2024-11-20 20:46] LABS: Glucose, Whole Blood 166 mg/dL (60-115)
[2024-11-21 03:28] VITALS: BP 128/56; PULSE 53; RESP 16; TEMP 36.1; O2SAT 98
[2024-11-21 07:21] VITALS: BP 120/59; PULSE 52; RESP 18; TEMP 36.6; O2SAT 99
[2024-11-21] MEDS: Albuterol/Iprat 2.5/0.5MG 3 ML AMPUL.NEB INHALE ×2 (07:38→11:11)
[2024-11-21 07:39] LABS: Glucose, Whole Blood 124 mg/dL (60-115)
[2024-11-21 07:41] VITALS: PULSE 72; RESP 16
[2024-11-21] MEDS: 0.9 % Sodium Chloride Flush 3 ML SYRINGE IVFLUSH (09:32)
[2024-11-21] MEDS: Metoprolol Succinate ER 50 MG TAB.ER.24H PO (09:33)
[2024-11-21] MEDS: Magnesium Oxide 400 MG TABLET PO (09:33)
[2024-11-21] MEDS: risperiDONE 0.5 MG TABLET 1.5 MG PO (09:33)
[2024-11-21] MEDS: Tamsulosin HCL 0.4 MG CAPSULE PO (09:33)
[2024-11-21] MEDS: Sodium Chloride Tab 1 GM TABLET PO (09:33)
[2024-11-21] MEDS: amLODIPine Besylate 5 MG TABLET PO (09:33)
[2024-11-21] MEDS: Clopidogrel Bisulfate 75 MG TABLET PO (09:34)
[2024-11-21] MEDS: Insulin Glargine,Hum.rec.anlog 100 UNIT/ML 10 ML VIAL 10 UNIT SUBCUT (09:34)
[2024-11-21] MEDS: Finasteride 5 MG TABLET PO (09:34)
--- NOTE | 2024-11-21 09:50 | PM.DS ---
DS: Providers Provider Date of Service: 11/21/24 Date of admission: 11/19/24 11:48 Date of discharge: 11/21/24 Primary care physician: Geno Rousseau MD DS: Diagnosis Discharge Diagnosis (1) Influenza A: Status: Resolved (2) Acute metabolic encephalopathy: Status: Acute (3) Influenza A: Status: Acute (4) Dysphagia: Status: Acute (5) Hypomagnesemia: Status: Acute DS: Summary Hospital Course Hospital Course: From the history and physical by the admitting hospitalist, UTE Paul, 11/17/24: 74 year old male with history of cognitive impairment, HFpEF 55-60%, hypertension, insulin-dependent diabetes mellitus, history of hemorrhagic CVA with subsequent gait instability, remote history of alcohol abuse, and BPH with the urinary retention now with a chronic indwelling Gross catheter presented to the ED from [facility] due to lethargy and ams noted this morning. Per facility the patient is usually a&o x4. Recently admitted to [facility] from 11/09-11/12 due to severe viral sepsis secondary to influenza a with acute toxic metabolic encephalopathy as well as hypokalemia and lethargy. Reportedly mentation had improved on discharge. He was discharged on Tamiflu which he has completed. Yesterday, he was started on prednisone yesterday for the flu. This morning was found to be lethargic and confused. On my exam the patient is lethagic, clammy, oriented to self, time, and place but making statements about his fingers needing to be moist or else they go backwards. He does also endorse shortness of breath and cough. Since arrival, he has been afebrile, vitals stable. No leukocytosis. Renal function and electrolyte levels normal except for chloride 112, CO2 of 20. VBG reassuring with pH 7.43, pCO2 31, bicarb 21. UA with 2+ blood, 3+ leukocytes with elevated white blood cells and trace bacteria. However, patient was here 2 days ago with similar UA and urine culture was negative. He is still positive for influenza a, initial diagnosis 11/08 and has completed course of Tamiflu. Negative for RSV and COVID. Head CT negative for any acute intracranial abnormality and chest x-ray negative for acute cardiopulmonary abnormality. In the ED, has been given IV magnesium, LR, and DuoNeb. 74yo M with history of cognitive impairment, HFpEF 55-60%, HTN, DM2, history of hemorrhagic CVA with subsequent gait instability, remote history of alcohol abuse, BPH with urinary retention and a chronic indwelling Gross catheter, and recent influenza sent to the ED from [facility] due to lethargy and confusion for which he was admitted to the medical-surgical unit. Encephalopathy was thought to be due to lingering effects of influenza versus prednisone, which was held. There was no radiographic evidence for pneumonia on CT. He did complain of cough and was seen by CONTROL INTEGRATION ENGINEER. MBSS showed penetration and aspiration. [place]-thick contrast remained above the vocal folds and was ejected from the airway. NDD1 [pureed] solids and nectar-thick liquids were recommended with pills crushed in purees. Low magnesium was repleted. Hallucinations resolved. He was discharged back to LTC at [facility] and will need ongoing CONTROL INTEGRATION ENGINEER on an outpatient basis for dysphagia. Time Attestation Discharge Coordination Time (in mins): 40 Quality: Safe Use of Opioids Does Pt have an Active Cancer Diagnosis on the Problem List?: No Quality: Stroke Does the patient have a stroke diagnosis?: No Physical Exam Vital Signs: Vital Signs: Last Vital Signs Temp 97.9 F 11/21/24 07:21 Pulse 72 11/21/24 07:41 Resp 16 11/21/24 07:41 BP 120/59 L 11/21/24 07:21 Pulse Ox 99 11/21/24 07:21 O2 Del Method Room Air 11/21/24 07:21 BMI result Body Mass Index 25.0 Gen: in no acute distress HEENT: sclera anicteric, moist mucus membranes Neck: supple Lungs: clear Heart: regular rate and rhythm, no murmurs Abd: soft, non-tender, non-distended Ext: no edema Skin: warm/well-perfused Neuro: alert and oriented to self/place/day [not month/year], confused about situation, no focal findings Psych: impaired insight, restricted affect DS: Data Data Completed and Pending Completed studies during hospitalization [Text1]: Laboratory Results WBC 7.4 X10*3/uL (4.8-10.8) 11/18/24 05:06 RBC 3.90 X10*6/uL (4.60-5.80) L 11/18/24 05:06 Hgb 11.2 g/dl (14.0-18.0) L 11/18/24 05:06 Hct 33.2 % (42.0-52.0) L 11/18/24 05:06 MCV 85.1 fL (80.0-98.0) 11/18/24 05:06 MCH 28.7 pg (27.0-33.0) 11/18/24 05:06 MCHC 33.7 g/dl (31.0-36.0) 11/18/24 05:06 RDW 14.4 % (11.0-16.0) 11/18/24 05:06 Plt Count 290 X10*3/uL (160-400) 11/18/24 05:06 MPV 9.0 fL (9.4-12.4) L 11/18/24 05:06 Immature Gran % (Auto) 0.4 % (0.0-0.4) 11/18/24 05:06 Neut % (Auto) 60.6 % (45-73) 11/18/24 05:06 Lymph % (Auto) 27.1 % (20-40) 11/18/24 05:06 [place] % (Auto) 10.7 % (2-11) 11/18/24 05:06 Eos % (Auto) 0.9 % (0-4) 11/18/24 05:06 Baso % (Auto) 0.3 % (0-2) 11/18/24 05:06 Lymph # (Auto) 2.0 X10*3/uL (1.2-4.9) 11/18/24 05:06 [place] # (Auto) 0.8 X10*3/uL (0.1-1.2) 11/18/24 05:06 Eos # (Auto) 0.1 X10*3/uL (0.0-0.4) 11/18/24 05:06 Baso # (Auto) 0.0 X10*3/uL (0.0-0.2) 11/18/24 05:06 Abs Immat Gran (auto) 0.03 X10*3/uL (0.00-0.03) 11/18/24 05:06 Absolute Neuts (auto) 4.5 x10*3/uL (2.0-8.3) 11/18/24 05:06 Absolute Nucleated RBC 0.000 X10*3/uL (0.0-0.012) 11/18/24 05:06 Nucleated RBC % (auto) 0.0 /100WBC (0.0-0.2) 11/18/24 05:06 VBG pH 7.43 (7.32-7.43) 11/17/24 15:19 VBG pCO2 31 mmHg 11/17/24 15:19 VBG pO2 77 mmHg 11/17/24 15:19 VBG HCO3 21 mmol/L (22-26) L 11/17/24 15:19 VBG O2 Saturation 96.0 % 11/17/24 15:19 VBG Base Excess -2.2 mmol/L 11/17/24 15:19 Sodium 142 mmol/L (135-145) 11/18/24 05:06 Potassium 3.3 mmol/L (3.3-5.1) 11/18/24 05:06 Chloride 108 mmol/L (96-108) 11/18/24 05:06 Carbon Dioxide 26 mmol/L (22-29) 11/18/24 05:06 Anion Gap 11 (12-20) L 11/18/24 05:06 BUN 10 mg/dL (9-16) 11/18/24 05:06 Creatinine 0.76 mg/dL (0.5-1.4) 11/18/24 05:06 Estim Creat Clear Calc 86.7 11/18/24 05:06 Estimated GFR > 60 11/18/24 05:06 POC Glucose 124 mg/dL (60-115) H 11/21/24 07:32 Random Glucose 177 mg/dL (60-115) H 11/18/24 05:06 Lactic Acid 3.4 mmol/L (0.5-2.0) H* 11/17/24 14:11 Lactic Acid F/U @ 2Hr 2.4 mmol/L (0.5-2.0) H* 11/17/24 16:45 Lactic Acid F/U @ 4Hr 1.9 mmol/L (0.5-2.0) 11/17/24 19:07 Calcium 8.9 mg/dL (8.4-10.2) 11/18/24 05:06 Magnesium 1.8 mg/dL (1.6-2.6) 11/18/24 05:06 Total Bilirubin 0.4 mg/dL (0.0-1.0) 11/17/24 11:39 Direct Bilirubin 0.2 mg/dL (0.0-0.5) 11/17/24 11:39 AST 21 U/L (5-37) 11/17/24 11:39 ALT 17 U/L (0-40) 11/17/24 11:39 Alkaline Phosphatase 62 U/L (39-117) 11/17/24 11:39 Ammonia 28 umol/L (13-55) 11/17/24 11:39 Troponin I High Sens 13.5 ng/L (<3.5-35.0) 11/17/24 10:41 B-Natriuretic Peptide 139 pg/mL (<100) H 11/17/24 10:41 Total Protein 6.9 g/dL (6.5-8.0) 11/17/24 11:39 Albumin 3.5 g/dL (3.5-5.0) 11/17/24 11:39 Procalcitonin 0.03 ng/mL 11/17/24 14:11 Urine Color Yellow 11/17/24 10:29 Urine Appearance Cloudy 11/17/24 10:29 Urine pH 6.0 (5.0-9.0) 11/17/24 10:29 Ur Specific [place] 1.020 (1.005-1.025) 11/17/24 10:29 Urine Protein 30 (1+) mg/dL (Neg-Trace) H 11/17/24 10:29 Urine Glucose (UA) Negative mg/dL (Negative) 11/17/24 10:29 Urine Ketones Negative mg/dL (Negative) 11/17/24 10:29 Urine Blood Moderate (2+) (Negative) H 11/17/24 10:29 Urine Nitrite Negative (Negative) 11/17/24 10:29 Ur Leukocyte Esterase Large (3+) (Negative) H 11/17/24 10:29 Urine RBC >20 /HPF (0-2) H 11/17/24 10:29 Urine WBC 21-50 /HPF (0-5) 11/17/24 10:29 Ur Squamous Epith Cells 0-2 /HPF (0-2) 11/17/24 10:29 Urine Bacteria Trace (None Seen) 11/17/24 10:29 Hyaline Casts 0-2 /LPF (0-2) 11/17/24 10:29 Urine Yeast Present 11/17/24 10:29 Nasal Screen MRSA (PCR) NEGATIVE (Negative) 11/18/24 10:38 Nasal S. aureus Screen NEGATIVE (Negative) 11/18/24 10:38 Nasal MRSA/S.aureus Interp SEE NOTE 11/18/24 10:38 Influenza Type A (PCR) POSITIVE (Negative) A 11/17/24 10:29 Influenza Type B (PCR) NEGATIVE (Negative) 11/17/24 10:29 RSV RNA Qual (PCR) NEGATIVE (Negative) 11/17/24 10:29 SARS-CoV-2 RNA (RT-PCR) NEGATIVE (Negative) 11/17/24 10:[address] 11/18/24 14:36 IMPRESSION: 1. No airspace opacities are seen in the lungs to suggest pneumonia. 2. Cholelithiasis. Chronic pancreatitis. Electronically signed by: Klever Epperson MD 11/18/2024 03:07 PM EDT RP Modified Barium Swallow 11/20/24 14:44 IMPRESSION: Percy laryngeal penetration or aspiration with thin barium. Otherwise normal but slow propagation bolus from the oral cavity through the pharynx with other consistencies of barium. Electronically signed by: Patel Smallwood MD 11/20/2024 04:58 PM EDT RP Discharge Plan Discharge Anticipated Discharge Date/Time: 11/21/24 09:45 Patient Disposition: Xfer SNF Discharge Diagnosis: acute metabolic encephalopathy influenza dysphagia Referrals: Geno Rousseau MD [Primary Care Provider] - 1 Week Discharge Medications: Continued (DME) pen needle, diabetic 32 gauge x 1/4 needle Qty: 100 0RF Rx Instructions: use with Lantus Solostar Pen once daily (DME) lancets [FreeStyle Lancets] 28 gauge misc Qty: 100 0RF Rx Instructions: Test four times a day or as directed. ipratropium-albuterol 0.5 mg-3 mg(2.5 mg base)/3 mL Solution For Nebulization 3 ml INHALATION QID trazodone 50 mg Tablet 50 mg PO BEDTIME atorvastatin 40 mg tablet 40 mg PO BEDTIME metoprolol succinate 50 mg tablet extended release 24 hr 50 mg PO DAILY clopidogrel 75 mg tablet 75 mg PO DAILY amlodipine 5 mg tablet 5 mg PO DAILY tamsulosin 0.4 mg capsule 0.4 mg PO DAILY trazodone 100 mg tablet 100 mg PO BEDTIME metformin 1,000 mg tablet 1,000 mg PO BID mirtazapine 15 mg tablet 15 mg PO BEDTIME insulin degludec [Tresiba FlexTouch U-100] 100 unit/mL (3 mL) insulin pen 18 unit subcut DAILY acetaminophen 325 mg Tablet 650 mg PO Q6H PRN (Reason: Fever Or Pain) Rx Instructions: DNE 3 G IN 24 HRS bisacodyl 10 mg Suppository 10 mg KS DAILY PRN (Reason: if no BM for 8 hours after MOM) insulin lispro [Humalog U-100 Insulin] 100 unit/mL Solution 1 sliding scale dose SUBCUT USEASDIRECTD Protocol: Insulin Correction Scale Less than or equal to 110 ---- Give (units): 0 111 to 150 Give (units): 0 151 to 200 Give (units): 0 201 to 250 Give (units): 4 251 to 300 Give (units): 6 301 to 350 Give (units): 8 Greater than 350 Give (units): 10 Call MD if Blood Glucose > : 400 acetaminophen 325 mg Tablet 650 mg PO TID Rx Instructions: DNE 3 G IN 24 HRS risperidone 0.5 mg tablet 1.5 mg PO DAILY@0900 sodium chloride 1,000 mg Tablet,Soluble 1,000 mg PO BID magnesium oxide 400 mg (241.3 mg magnesium) tablet 400 mg PO BID finasteride 5 mg Tablet 5 mg PO DAILY Qty: 90 0RF dextrose [Glutose-45] 40 % Gel 15 g PO Q15M PRN (Reason: Hypoglycemia) Rx Instructions: until symptoms of low blood sugar are controlled glucagon 1 mg/0.2 mL Auto-Injector 1 mg SUBCUT Q20M PRN (Reason: Hypoglycemia) glipizide 10 mg Tablet 10 mg PO DAILY Qty: 60 0RF Discontinued prednisone 10 mg Tablet See Taper PO DIRECTED Taper: Prednisone 60 mg daily for 3 Days and 0 Hour 50 mg daily for 3 Days and 0 Hour 40 mg daily for 3 Days and 0 Hour 30 mg daily for 3 Days and 0 Hour 20 mg daily for 3 Days and 0 Hour 10 mg daily for 3 Days and 0 Hour Rx Instructions: taper to start 60 mg on 11/16 every 3 days, to complete taper on 12/04: see taper instructions Discharge Orders: Discharge Order (Routine); Ordered 11/21/24 Ordered By: Mario Flanagan Diet: Diabetic diet Activity on Discharge: As tolerated Stand Alone Forms: Patient Portal Discharge page Print Language: Sammarinese Care Plan Goals: recovery from influenza Health Concerns: acute metabolic encephalopathy influenza dysphagia Plan of Treatment: NDD1 [puree] solids and nectar-thick liquids needs ongoing speech therapy for swallowing Please follow up with your primary care doctor within 1 week. Return to the hospital if you experience recurrent or worsening symptoms. Assessment: See Discharge Summary.
[2024-11-21 10:15] VITALS: BP 158/70; PULSE 52; RESP 18; TEMP 36.9; O2SAT 98
[2024-11-21 11:14] LABS: Glucose, Whole Blood 272 mg/dL (60-115)
[2024-11-21 11:15] VITALS: PULSE 64; RESP 16
--- NOTE | 2024-11-21 11:16 | MHC.CM.PN ---
IMM 11/19/24 Patient is discharged today. He will return to [facility]. Transport is schedule for 1pm chicken picker.
[2024-11-21] MEDS: Insulin Lispro 100 UNIT/ML 3 ML VIAL SUBCUT (11:29)
[2024-11-21] MEDS: Acetaminophen 325 MG TABLET 650 MG PO (11:30)
[2024-11-21 12:53] VITALS: BP 108/56; PULSE 70; RESP 18; TEMP 36.9; O2SAT 97
== END 2024-11-21 13:25 | disposition skilled nursing facility (03) | DRG 865 ==
LOC: HO.ED 15:56 → HO.EDOVER 16:34 → HO.S3 16:58
PROVIDERS: Internal Medicine; Registered Nurse Emergency; Admitting Provider Physician Assistant; Emergency Provider Emergency Medicine; PCP Internal Medicine; Visit Provider Family Medicine
DX: J10.81 Influenza due to other identified influenza virus with encephalopathy (principal); G92.8 Other toxic encephalopathy; E87.21 Acute metabolic acidosis; I50.32 Chronic diastolic (congestive) heart failure; F33.3 Major depressive disorder, recurrent, severe with psychotic symptoms; N40.1 Benign prostatic hyperplasia with lower urinary tract symptoms; R33.8 Other retention of urine; Z96.0 Presence of urogenital implants; I69.398 Other sequelae of cerebral infarction; T38.0X5A Adverse effect of glucocorticoids and synthetic analogues, initial encounter; R26.89 Other abnormalities of gait and mobility; R13.10 Dysphagia, unspecified; I11.0 Hypertensive heart disease with heart failure; E83.42 Hypomagnesemia; Z86.73 Personal history of transient ischemic attack (TIA), and cerebral infarction without residual deficits; Z87.891 Personal history of nicotine dependence; Z79.4 Long term (current) use of insulin; Z79.84 Long term (current) use of oral hypoglycemic drugs; Z79.899 Other long term (current) drug therapy
CPT/HCPCS: 0241U; 36415; 70450; 71046; 71250; 74230; 80048; 80053; 81001; 82140; 82248; 82803; 82947; 83605; 83735; 83880; 84145; 84484; 85025; 87040; 87086; 87640; 87641; 92610; 92611; 93005; 99285; J0295; J1650; J2003; J3370; J3475; J7120

== ENCOUNTER → 2024-11-17 10:26 | Outpatient (BNV) | payer MEDICARE, SELFPAY | PROVIDERS: Admitting Provider Physician Assistant; Emergency Provider Emergency Medicine; PCP Internal Medicine; Visit Provider Internal Medicine Cardiovascular Disease | DX: I49.1 Atrial premature depolarization (principal); R00.1 Bradycardia, unspecified | CPT/HCPCS: 93010 ==

== ENCOUNTER → 2024-11-17 10:30 | Outpatient (BNV) | payer MEDICARE, SELFPAY | PROVIDERS: Emergency Provider Emergency Medicine; PCP Internal Medicine; Visit Provider Radiology Vascular & Interventional Radiology | DX: R06.02 Shortness of breath (principal); R41.82 Altered mental status, unspecified | CPT/HCPCS: 70450; 71046 ==

== ENCOUNTER 2024-11-17 15:42 | Outpatient (BNV) | payer MEDICARE, SELFPAY | END 2024-11-18 14:36 | PROVIDERS: Admitting Provider Physician Assistant; Emergency Provider Emergency Medicine; PCP Internal Medicine; Visit Provider Radiology Diagnostic Radiology | DX: K80.20 Calculus of gallbladder without cholecystitis without obstruction (principal) | CPT/HCPCS: 71250 ==

== ENCOUNTER → 2024-11-17 15:42 | Outpatient (BNV) | payer MEDICARE, SELFPAY | PROVIDERS: Admitting Provider Physician Assistant; Emergency Provider Emergency Medicine; PCP Internal Medicine; Visit Provider Physician Assistant | DX: J10.1 Influenza due to other identified influenza virus with other respiratory manifestations (principal); G93.41 Metabolic encephalopathy; R13.10 Dysphagia, unspecified; E83.42 Hypomagnesemia | CPT/HCPCS: 99223; 99232; 99239 ==

== ENCOUNTER 2024-11-19 11:48 | Outpatient (BNV) | payer MEDICARE, SELFPAY | END 2024-11-20 14:44 | PROVIDERS: Admitting Provider Physician Assistant; Emergency Provider Emergency Medicine; PCP Internal Medicine; Visit Provider Radiology Diagnostic Radiology | DX: R63.8 Other symptoms and signs concerning food and fluid intake (principal) | CPT/HCPCS: 74230 ==

== ENCOUNTER 2025-01-01 10:54 | Outpatient (AMB) | payer MEDICARE, SELFPAY ==
--- NOTE | 2025-01-01 11:06 | A.OFFVIS_ITS ---
Intake Visit Reasons: hematuria Intake Note: Patient is present for HEMATURIA Urology Medication:FINASTERIDE,TAMSULOSIN Antibiotic Allergy:NONE Blood Thinner:NONE Legal Billing Specialist Required: No Allergies meperidine [From DEMEROL] Allergy (Unknown, Verified 01/01/25 11:07) UNKNOWN HPI Comments Details: Gadiel is a pleasant male. He is a patient of . He is seen for the following urologic conditions - urinary retention - hematuria Seen in hospital with episodes of retention, hematuria and UTI of the past 2 years Failed to follow up with Urology Here today from [facility] with Burgos catheter in place Failed voiding trial Plan to see in 4 weeks for cystoscopy and voiding trial in office [facility] Medical History BPH loc w urin obs/LUTS Severe recurrent major depressive disorder with psychosis CHF (congestive heart failure) Hemorrhagic stroke Cholelithiasis Alcohol use disorder HTN (hypertension) Surgical History No pertinent past surgical history Social History Household Members: Other Household Members Other:: [facility]. [facility] Do you presently have visiting nurse or other home services: No Alcohol intake: current Alcohol intake frequency: 0-2 drinks per day Alcohol type: hard liquor Comment: sitter at bedside Patient Tobacco Use Status: Former Tobacco user Second Hand Smoke Exposure: No Advance Directives Date on File: 04/12/23 service: No Current occupational status: disabled Review of Systems Const Denies chills and Denies fever(s) Card Reports no additional complaints and Denies syncope Resp Denies cough GI Denies abdominal pain and Denies heartburn Reports as per HPI and Denies change in libido Neuro Denies syncope Psych Denies change in libido Endo Denies change in libido Physical Exam Const General: cooperative, healthy appearing, comfortable and no acute distress Orientation/consciousness: patient oriented x3 HEENT Face and sinus: Yes normal facial exam Mouth: moist mucous membranes Neck Neck: Yes normal visual inspection, Yes full ROM and Yes trachea midline Chest Chest palpation & inspection: normal inspection of the chest Resp Effort & Inspection: normal respiratory effort, able to speak in complete sentences and no respiratory distress GI Inspection: Yes normal to inspection Back/Spine/Pelvis Cervical Spine: normal cervical lordosis Thoracic/Lumbar Spine: thoracic and lumbar spine normal to inspection Skin General skin exam: no rashes or lesions noted Neuro General: patient oriented x3, gait normal, tone normal and moves all extremities Extrem General: Yes normal to inspection and Yes capillary refill normal Office Procedures Bladder/Catheter Procedure Details: Patient presents to office for voiding trial s/p hospitalization. 120mls sterile water instilled through catheter, patient tolerated well. Removed 16 fr burgos catheter, patient tolerated removal well. Patient not able to void. Reviewed with Dr. Edouard as patient in office for visit with provider. Place burgos catheter and repeat VT in 4 weeks. 16 fr burgos catheter 10ml balloon with blue plug inserted, patient tolerated well. emptied 850mls when catheter inserted. Educated on use of blue plug and night bag at night. Patient stated understanding and is agreeable with plan at this time. 96411-Qbhtqubbop of Bladder [id number] Temporary Bladder Catheter Procedure code (CPT) selection complete Assessment & Plan Assessment & Plan (1) Urinary retention with incomplete bladder emptying: Code(s): R33.9 - Retention of urine, unspecified Category: Medical Plan Finasteride at alpha-dottie Four week follow-up repeat voiding trial Orders: Orders AMB Bladder/Catheter Procedure Today R33.8 - Other retention of urine Medications: Changed From tamsulosin 0.4 mg PO DAILY To tamsulosin 0.4 mg PO BEDTIME 90 days 90 caps 1RF Patient Instructions: This note is constructed using voice recognition software. While every effort has been made to ensure accuracy traffic control technician errors may have been included. Imaging studies, laboratory and physical exam results were discussed and reviewed in detail. No major barriers to patient understanding were identified. An opportunity to ask questions regarding the treatment plan was provided. All questions were answered. The patient expressed understanding and agreement with the above treatment plan. The patient is aware they should contact our office by phone for worsening of their current condition or the appearance of new urologic symptoms. Compliance is encouraged with any medications and followup testing that is ordered. It is a privilege to participate in the urologic care of your patient. If you have any questions or concerns regarding treatment for the above conditions, or other urologic issues, please do not hesitate to contact me. The office telephone contact is [phone]. Sincerely, Dr Lyle Edouard MD, [facility] - Urology Compassionate Specialist Care for the Genitourinary System Coding Level of Care Code Est Pt Level 4 (66716) Diagnoses Urinary retention with incomplete bladder emptying R33.9 CPT Codes Bladder/Catheter Procedure - CPT: 33784-Anmtggctcm of Bladder ([id number]) Bladder/Catheter Procedure - CPT: 08615-Drkuso Temporary Bladder Catheter ([id number])
--- OUTSIDE RECORDS SUMMARY | 2025-01-01 12:25 | XMS_ITS | Encounter Summary ---
Author Organization [facility] Address [address] [place] [address] Care Team Providers Care Reverse Engineer Name Role Phone Zay Bhagat MD Primary Care Provider Encounter Details Date Type Department Care Team (Late st Contact Info) Description 10/02/2024 Lab Requisition [facility] - Main Lab [address] [place] [address] Benjamin Gaytan MD [address] [place] [address] [place] [address] Other termination clerk (current) drug therapy Social History Tobacco Use [...] PANEL Routine 10/02/2024 4:52 AM EST Other residential (current) drug therapy documented in this encounter Results * (ABNORMAL) Comprehensive metabolic panel (10/02/2024 4:52 AM EST) Sodium 126(L) 133 - 145 mmol/L LAB CHEMISTRY METHOD 10/02/2024 12:38 PM EST [facility] Potassium 5.1 3.5 - 5.5 mmol/L LAB CHEMISTRY METHOD 10/02/2024 12:38 PM EST [facility] Chloride 92(L) 96 - 110 mmol/L LAB CHEMISTRY METHOD 10/02/2024 12:38 PM [facility] CO2 27 21 - 32 mmol/L LAB CHEMISTRY METHOD 10/02/2024 12:38 PM [facility] Anion Gap 7 3 - 11 LAB CHEMISTRY METHOD 10/02/2024 12:38 PM [facility] Glucose 80 70 - 100 mg/dL LAB CHEMISTRY METHOD 10/02/2024 12:38 PM [facility] BUN 17 5 - 25 mg/dL LAB CHEMISTRY METHOD 10/02/2024 12:38 PM [facility] Creatinine 0.84 0.70 - 1.30 mg/dL LAB CHEMISTRY METHOD 10/02/2024 12:38 PM [facility] eGFR 91 >=60 mL/min/1. 73m2 LAB CHEMISTRY METHOD 10/02/2024 12:38 PM [facility] Comment:Calculation based on the??Chronic Kidney Disease Epidemiology Collaboration (CKD-EPI) equation refit??without adjustment for race. BUN/Creatinine Ratio 20.2 LAB CHEMISTRY METHOD 10/02/2024 12:38 PM [facility] Calcium 9.4 8.5 - 10.5 mg/dL LAB CHEMISTRY METHOD 10/02/2024 12:38 PM [facility] AST (SGOT) 16 10 - 42 unit/L LAB CHEMISTRY METHOD 10/02/2024 12:38 PM [facility] ALT (SGPT) 22 10 - 60 unit/L LAB CHEMISTRY METHOD 10/02/2024 12:38 PM [facility] Alkaline Phosphatase 57 42 - 121 unit/L LAB CHEMISTRY METHOD 10/02/2024 12:38 PM [facility] Total Protein 6.7 6.0 - 8.0 g/dL LAB CHEMISTRY METHOD 10/02/2024 12:38 PM [facility] Albumin 3.6 3.2 - 5.0 g/dL LAB CHEMISTRY METHOD 10/02/2024 12:38 PM EST [facility] Total Bilirubin 0.5 0.0 - 1.4 mg/dL LAB CHEMISTRY METHOD 10/02/2024 12:38 PM EST [facility] Blood Venous blood specimen / Unknown Venipuncture / Unknown 10/02/2024 4:52 AM EST 10/02/2024 10:40 AM EST us Benjamin Gaytan MD LAB BLOOD ORDERABLES Final Resu lt [facility] [address] [place] [address], documented in this encounter Visit Diagnoses Diagnosis Other residential (current) drug therapy documented in this encounter Additional Health Concerns Infection Onset Date Last Indicated Resolved Time Respiratory Rule-Out 11/08/2024 11/08/2024 025 4:47 PM EST Influenza 11/08/2024 11/08/2024 12/02/2024 7:05 PM EDT documented as of this encounter Care Teams Reverse Engineer Relationship Specialty Start Date End Date Zay Bhagat MD [address] [place] [id number] PCP - General 05/30/23 documented as of this encounter
--- OUTSIDE RECORDS SUMMARY | 2025-01-01 12:25 | XMS_ITS | Encounter Summary ---
Author Organization [facility] Address [address] [place] [address] Care Team Providers Care Foundation Relations Director Name Role Phone Zay Bhagat MD Primary Care Provider Encounter Details Date Type Department Care Team (Late st Contact Info) Description 09/28/2024 Lab Requisition [facility] - Main Lab 299 [facility] [place] [address] Gris Rousseau MD [address] [id number] Type 2 diabetes mellitus without complications (CMS/HCC V24, CMS/HCC V28) Social History Tobacco Use Types Packs/Day Years [...] mmol/L LAB CHEMISTRY METHOD 09/30/2024 2:05 PM [facility] Potassium 4.5 3.5 - 5.5 mmol/L LAB CHEMISTRY METHOD 09/30/2024 2:05 PM [facility] Chloride 89(L) 96 - 110 mmol/L LAB CHEMISTRY METHOD 09/30/2024 2:05 PM [facility] CO2 26 21 - 32 mmol/L LAB CHEMISTRY METHOD 09/30/2024 2:05 PM [facility] Anion Gap 9 3 - 11 LAB CHEMISTRY METHOD 09/30/2024 2:05 PM [facility] Glucose 229(H) 70 - 100 mg/dL LAB CHEMISTRY METHOD 09/30/2024 2:05 PM [facility] BUN 17 5 - 25 mg/dL LAB CHEMISTRY METHOD 09/30/2024 2:05 PM [facility] Creatinine 1.41(H) 0.70 - 1.30 mg/dL LAB CHEMISTRY METHOD 09/30/2024 2:05 PM [facility] eGFR 52(L) >=60 mL/min/1. 73m2 LAB CHEMISTRY METHOD 09/30/2024 2:05 PM [facility] Comment:Calculation based on the??Chronic Kidney Disease Epidemiology Collaboration (CKD-EPI) equation refit??without adjustment for race. BUN/Creatinine Ratio 12.1 LAB CHEMISTRY METHOD 09/30/2024 2:05 PM [facility] Calcium 10.1 8.5 - 10.5 mg/dL LAB CHEMISTRY METHOD 09/30/2024 2:05 PM [facility] AST (SGOT) 28 10 - 42 unit/L LAB CHEMISTRY METHOD 09/30/2024 2:05 PM [facility] ALT (SGPT) 23 10 - 60 unit/L LAB CHEMISTRY METHOD 09/30/2024 2:05 PM [facility] Alkaline Phosphatase 68 42 - 121 unit/L LAB CHEMISTRY METHOD 09/30/2024 2:05 PM [facility] Total Protein 7.5 6.0 - 8.0 g/dL LAB CHEMISTRY METHOD 09/30/2024 2:05 PM [facility] Albumin 4.1 3.2 - 5.0 g/dL LAB CHEMISTRY METHOD 09/30/2024 2:05 PM [facility] Total Bilirubin 0.7 0.0 - 1.4 mg/dL LAB CHEMISTRY METHOD 09/30/2024 2:05 PM [facility] Blood Venous blood specimen / Unknown Venipuncture / Unknown 09/30/2024 10:45 AM EST 09/30/2024 11:48 AM EST us Gris Rousseau MD LAB BLOOD ORDERABLES Fin al Result [facility] [address] [place] [address], * (ABNORMAL) Complete blood count (09/30/2024 10:45 AM EST) WBC 9.8 4.8 - 10.8 K/mcL LAB HEMETOLOGY METHOD 09/30/2024 1:17 PM [facility] RBC 4.50 4.50 - 5.50 M/mcL LAB HEMETOLOGY METHOD 09/30/2024 1:17 PM [facility] Hemoglobin 13.5 13.5 - 17.5 g/dL LAB HEMETOLOGY METHOD 09/30/2024 1:17 PM [facility] Hematocrit 39.3(L) 42.0 - 54.0 % LAB HEMETOLOGY METHOD 09/30/2024 1:17 PM [facility] MCV 87.5 79.0 - 98.0 FL LAB HEMETOLOGY METHOD 09/30/2024 1:17 PM [facility] MCH 30.1 27.0 - 32.0 pcg LAB HEMETOLOGY METHOD 09/30/2024 1:17 PM EST [facility] MCHC 34.4 32.0 - 37.0 g/dL LAB HEMETOLOGY METHOD 09/30/2024 1:17 PM [facility] RDW 12.8 11.0 - 15.0 % LAB HEMETOLOGY METHOD 09/30/2024 1:17 PM [facility] Platelets 250 130 - 400 K/mcL LAB HEMETOLOGY METHOD 09/30/2024 1:17 PM [facility] MPV 9.7 7.0 - 11.0 FL LAB HEMETOLOGY METHOD 09/30/2024 1:17 PM [facility] NRBC 0.0 <1.0 % LAB HEMETOLOGY METHOD 09/30/2024 1:17 PM [facility] NRBC Absolute 0.00 <0.10 K/mcL LAB HEMETOLOGY METHOD 09/30/2024 1:17 PM [facility] Blood Venous blood specimen / Unknown Venipuncture / Unknown 09/30/2024 10:45 AM EST 09/30/2024 11:48 AM EST us Gris Rousseau MD LAB BLOOD ORDERABLES Fin al Result [facility] [address] [place] [address], documented in this encounter Visit Diagnoses Diagnosis Type 2 diabetes mellitus without complications (CMS/HCC V24, CMS/HCC V28) documented in this encounter Additional Health Concerns Infection Onset Date Last Indicated Resolved Time Respiratory Rule-Out 11/08/2024 11/08/2024 03 025 4:47 PM EST Influenza 11/08/2024 11/08/2024 12/02/2024 7:05 PM EDT documented as of this encounter Care Teams Foundation Relations Director Relationship Specialty Start Date End Date Zay Bhagat MD [address] [place] [address] PCP - General 05/30/23 documented as of this encounter
--- OUTSIDE RECORDS SUMMARY | 2025-01-01 12:25 | XMS_ITS | Encounter Summary ---
Author Organization [facility] Address [address] [place] [address] Care Team Providers Care Display Mechanic Name Role Phone Zay Bhagat MD Primary Care Provider Encounter Details Date Type Department Care Team (Late st Contact Info) Description 10/04/2024 Lab Requisition [facility] - Main Lab 299 [facility] [place] [address] Gris Rousseau MD [address] [phone] Type 2 diabetes mellitus without complications (CMS/HCC [...] documented as of this encounter Care Teams Display Mechanic Relationship Specialty Start Date End Date Zay Bhagat MD [address] [place], [place] [phone] PCP - General 05/30/23 documented as of this encounter
--- OUTSIDE RECORDS SUMMARY | 2025-01-01 12:25 | XMS_ITS | Encounter Summary ---
Author Organization [facility] Address [address] [place] [address] Care Team Providers Care Research Asst Name Role Phone Zay Bhagat MD Primary Care Provider Encounter Details Date Type Department Care Team (Late st Contact Info) Description 11/25/2024 Lab Requisition [facility] - Main Lab 299 [facility] [place] [address] Gris Rousseau MD [address] [address] Type 2 diabetes mellitus without complications (CMS/HCC [...] Associated Diagnosis Comments COMPLETE BLOOD COUNT Routine 11/25/2024 8:15 AM EDT Type 2 diabetes mellitus without complications COMPREHENSIVE METABOLIC PANEL Routine 11/25/2024 8:15 AM EDT Type 2 diabetes mellitus without complications documented in this encounter Results * Comprehensive metabolic panel (11/25/2024 8:15 AM EDT) Sodium 139 133 - 145 mmol/L LAB CHEMISTRY METHOD 11/25/2024 12:48 PM EDT [facility] Potassium 4.5 3.5 - 5.5 mmol/L LAB CHEMISTRY METHOD 11/25/2024 12:48 PM [facility] Chloride 107 96 - 110 mmol/L LAB CHEMISTRY METHOD 11/25/2024 12:48 PM [facility] CO2 24 21 - 32 mmol/L LAB CHEMISTRY METHOD 11/25/2024 12:48 PM [facility] Anion Gap 8 3 - 11 LAB CHEMISTRY METHOD 11/25/2024 12:48 PM [facility] Glucose 98 70 - 100 mg/dL LAB CHEMISTRY METHOD 11/25/2024 12:48 PM [facility] BUN 20 5 - 25 mg/dL LAB CHEMISTRY METHOD 11/25/2024 12:48 PM [facility] Creatinine 0.86 0.70 - 1.30 mg/dL LAB CHEMISTRY METHOD 11/25/2024 12:48 PM [facility] eGFR 90 >=60 mL/min/1. 73m2 LAB CHEMISTRY METHOD 11/25/2024 12:48 PM [facility] Comment:Calculation based on the??Chronic Kidney Disease Epidemiology Collaboration (CKD-EPI) equation refit??without adjustment for race. BUN/Creatinine Ratio 23.3 LAB CHEMISTRY METHOD 11/25/2024 12:48 PM [facility] Calcium 9.4 8.5 - 10.5 mg/dL LAB CHEMISTRY METHOD 11/25/2024 12:48 PM [facility] AST (SGOT) 23 10 - 42 unit/L LAB CHEMISTRY METHOD 11/25/2024 12:48 PM [facility] ALT (SGPT) 19 10 - 60 unit/L LAB CHEMISTRY METHOD 11/25/2024 12:48 PM [facility] Alkaline Phosphatase 78 42 - 121 unit/L LAB CHEMISTRY METHOD 11/25/2024 12:48 PM [facility] Total Protein 6.8 6.0 - 8.0 g/dL LAB CHEMISTRY METHOD 11/25/2024 12:48 PM EDT [facility] Albumin 3.3 3.2 - 5.0 g/dL LAB CHEMISTRY METHOD 11/25/2024 12:48 PM EDT [facility] Total Bilirubin 0.6 0.0 - 1.4 mg/dL LAB CHEMISTRY METHOD 11/25/2024 12:48 PM EDT [facility] Blood Venous blood specimen / Unknown Venipuncture / Unknown 11/25/2024 8:15 AM EDT 11/25/2024 10:51 AM EDT us Gris Rousseau MD LAB BLOOD ORDERABLES Fin al Result [facility] [address] [place] [address], * (ABNORMAL) Complete blood count (11/25/2024 8:15 AM EDT) WBC 8.6 4.8 - 10.8 K/mcL LAB HEMETOLOGY METHOD 11/25/2024 11:58 AM EDT [facility] RBC 4.10(L) 4.50 - 5.50 M/mcL LAB HEMETOLOGY METHOD 11/25/2024 11:58 AM EDT [facility] Hemoglobin 12.0(L) 13.5 - 17.5 g/dL LAB HEMETOLOGY METHOD 11/25/2024 11:58 AM EDT [facility] Hematocrit 36.9(L) 42.0 - 54.0 % LAB HEMETOLOGY METHOD 11/25/2024 11:58 AM EDT [facility] MCV 89.1 79.0 - 98.0 FL LAB HEMETOLOGY METHOD 11/25/2024 11:58 AM EDT [facility] MCH 29.0 27.0 - 32.0 pcg LAB HEMETOLOGY METHOD 11/25/2024 11:58 AM EDT [facility] MCHC 32.5 32.0 - 37.0 g/dL LAB HEMETOLOGY METHOD 11/25/2024 11:58 AM EDT [facility] RDW 14.8 11.0 - 15.0 % LAB HEMETOLOGY METHOD 11/25/2024 11:58 AM EDT [facility] Platelets 299 130 - 400 K/mcL LAB HEMETOLOGY METHOD 11/25/2024 11:58 AM EDT [facility] MPV 10.1 7.0 - 11.0 FL LAB HEMETOLOGY METHOD 11/25/2024 11:58 AM EDT [facility] NRBC 0.0 <1.0 % LAB HEMETOLOGY METHOD 11/25/2024 11:58 AM EDT [facility] NRBC Absolute 0.00 <0.10 K/mcL LAB HEMETOLOGY METHOD 11/25/2024 11:58 AM EDT [facility] Blood Venous blood specimen / Unknown Venipuncture / Unknown 11/25/2024 8:15 AM EDT 11/25/2024 10:51 AM EDT Gris Rousseau MD LAB BLOOD ORDERABLES Fin al Result [facility] [address] [place] [address], documented in this encounter Visit Diagnoses Diagnosis Type 2 diabetes mellitus without complications (CMS/HCC V24, CMS/HCC V28) documented in this encounter Additional Health Concerns Infection Onset Date Last Indicated Resolved Time Influenza 11/08/2024 11/08/2024 12/02/2024 7:05 PM EDT documented as of this encounter Care Teams Research Asst Relationship Specialty Start Date End Date Zay Bhagat MD [address] [place] [address] PCP - General 05/30/23 documented as of this encounter
--- OUTSIDE RECORDS SUMMARY | 2025-01-01 12:25 | XMS_ITS | Encounter Summary ---
Author Organization [facility] [address] Address [address] [place] [address] Care Team Providers Care Rn Lpn Cna Name Role Phone Zay Bhagat MD Primary Care Provider Encounter Details Date Type Department Care Team (Late st Contact Info) Description 09/13/2024 Lab Requisition [facility] - Main Lab [address] [place] [address] Gris Rousseau MD [address] [address] Essential (primary) hypertension Social History Tobacco Use [...] CHEMISTRY METHOD 09/16/2024 11:01 AM EST [facility] Potassium 4.1 3.5 - 5.5 mmol/L LAB CHEMISTRY METHOD 09/16/2024 11:01 AM [facility] Chloride 102 96 - 110 mmol/L LAB CHEMISTRY METHOD 09/16/2024 11:01 AM [facility] CO2 29 21 - 32 mmol/L LAB CHEMISTRY METHOD 09/16/2024 11:01 AM [facility] Anion Gap 6 3 - 11 LAB CHEMISTRY METHOD 09/16/2024 11:01 AM [facility] Glucose 68(L) 70 - 100 mg/dL LAB CHEMISTRY METHOD 09/16/2024 11:01 AM [facility] BUN 19 5 - 25 mg/dL LAB CHEMISTRY METHOD 09/16/2024 11:01 AM [facility] Creatinine 0.86 0.70 - 1.30 mg/dL LAB CHEMISTRY METHOD 09/16/2024 11:01 AM [facility] eGFR 90 >=60 mL/min/1. 73m2 LAB CHEMISTRY METHOD 09/16/2024 11:01 AM [facility] Comment:Calculation based on the??Chronic Kidney Disease Epidemiology Collaboration (CKD-EPI) equation refit??without adjustment for race. BUN/Creatinine Ratio 22.1 LAB CHEMISTRY METHOD 09/16/2024 11:01 AM [facility] Calcium 9.7 8.5 - 10.5 mg/dL LAB CHEMISTRY METHOD 09/16/2024 11:01 AM [facility] AST (SGOT) 14 10 - 42 unit/L LAB CHEMISTRY METHOD 09/16/2024 11:01 AM [facility] ALT (SGPT) 20 10 - 60 unit/L LAB CHEMISTRY METHOD 09/16/2024 11:01 AM [facility] Alkaline Phosphatase 70 42 - 121 unit/L LAB CHEMISTRY METHOD 09/16/2024 11:01 AM [facility] Total Protein 7.4 6.0 - 8.0 g/dL LAB CHEMISTRY METHOD 09/16/2024 11:01 AM [facility] Albumin 3.6 3.2 - 5.0 g/dL LAB CHEMISTRY METHOD 09/16/2024 11:01 AM [facility] Total Bilirubin 0.4 0.0 - 1.4 mg/dL LAB CHEMISTRY METHOD 09/16/2024 11:01 AM [facility] Blood Venous blood specimen / Unknown Venipuncture / Unknown 09/16/2024 7:12 AM EST 09/16/2024 9:34 AM EST us Gris Rousseau MD LAB BLOOD ORDERABLES Fin al Result [facility] [address] [place] [address], [place] [phone] * (ABNORMAL) Complete blood count (09/16/2024 7:12 AM EST) WBC 8.7 4.8 - 10.8 K/mcL LAB HEMETOLOGY METHOD 09/16/2024 10:30 AM [facility] RBC 4.50 4.50 - 5.50 M/[facility] LAB HEMETOLOGY METHOD 09/16/2024 10:30 AM [facility] Hemoglobin 13.8 13.5 - 17.5 g/dL LAB HEMETOLOGY METHOD 09/16/2024 10:30 AM [facility] Hematocrit 41.5(L) 42.0 - 54.0 % LAB HEMETOLOGY METHOD 09/16/2024 10:30 AM [facility] MCV 91.4 79.0 - 98.0 FL LAB HEMETOLOGY METHOD 09/16/2024 10:30 AM [facility] MCH 30.4 27.0 - 32.0 pcg LAB HEMETOLOGY METHOD 09/16/2024 10:30 AM [facility] MCHC 33.3 32.0 - 37.0 g/dL LAB HEMETOLOGY METHOD 09/16/2024 10:30 AM EST [facility] RDW 12.2 11.0 - 15.0 % LAB HEMETOLOGY METHOD 09/16/2024 10:30 AM [facility] Platelets 351 130 - 400 K/mcL LAB HEMETOLOGY METHOD 09/16/2024 10:30 AM EST [facility] MPV 8.9 7.0 - 11.0 FL LAB HEMETOLOGY METHOD 09/16/2024 10:30 AM EST [facility] NRBC 0.0 <1.0 % LAB HEMETOLOGY METHOD 09/16/2024 10:30 AM [facility] NRBC Absolute 0.00 <0.10 K/mcL LAB HEMETOLOGY METHOD 09/16/2024 10:30 AM [facility] Blood Venous blood specimen / Unknown Venipuncture / Unknown 09/16/2024 7:12 AM EST 09/16/2024 9:36 AM EST us Gris Rousseau MD LAB BLOOD ORDERABLES Fin al Result [facility] [address] [place] [address], documented in this encounter Visit Diagnoses Diagnosis Essential (primary) hypertension Unspecified essential hypertension documented in this encounter Additional Health Concerns Infection Onset Date Last Indicated Resolved Time Respiratory Rule-Out 11/08/2024 11/08/2024 025 4:47 PM EST Influenza 11/08/2024 11/08/2024 12/02/2024 7:05 PM EDT documented as of this encounter Care Teams Rn Lpn Cna Relationship Specialty Start Date End Date Zay Bhagat MD [address] [place] [address] PCP - General 05/30/23 documented as of this encounter
--- OUTSIDE RECORDS SUMMARY | 2025-01-01 12:25 | XMS_ITS | Clinical Summary ---
Author Organization [address] [place] [address] [place] [phone] Phone Care Team Providers Care Float Nurse Name Role Phone Zay Bhagat MD Primary Care Provider Allergies Active Allergy Reactions Criticality Noted Date Comments Meperidine 07/25/2023 Medications blood-glucose meter kit Use to test blood sugar 3 times daily. 4 Active CALCIUM CARBONATE ORAL Take by mouth. Active flash glucose scanning reader (FreeStyle Bill 2 [place]) misc 1 Device by Does not apply [...] Noted Date Diagnosed Date Delusions of parasitosis ([facility] V24, [facility] V 28) 12/25/2023 Diabetic peripheral neuropathy ([facility], [facility] V28) 12/25/2023 Nephrolithiasis 12/25/2023 Overview (06/06/2024): Last Assessment & Plan: Nonobstructing left renal calculus noted incidentally on CT scan in November 2023 Type 2 diabetes mellitus wit h hyperglycemia, without long-term current use of insulin ([facility] V24, [facility] V28) 12/25/2023 Coronary artery disease of n ative artery of [place] heart with stable angina pectoris ([facility] V24) 11/15/2023 Overview (06/06/2024): - Pharmacologic nuclear stress [...] backing off on metoprolol. SVT (supraventricular tachycardia) ([facility] V24) 11/15/2023 Overview (06/06/2024): - Was noted to have episodes of a narrow complex tachycardia that was short- lived in the 150s to 160s during his hospitalization at [facility] for which he was initiated on metoprolol which was subsequently decreased in dose at a subsequent [facility] hospitalization for orthostatic hypotension and volume depletion Last Assessment & Plan: No obvious recurrences, continue current metoprolol. Abnormal thyroid blood test 06/06/2023 Alcohol-induced chronic panc reatitis (CMS/[facility] V24, [facility] V28) 06/06/2023 Alcohol use disorder 06/06/2023 Chronic heart failure with p reserved ejection fraction (CMS/[facility] V24, [facility] V28) 06/06/2023 Overview (06/06/2024): - Hospitalized at [facility] in April 2023 after a mechanical [...] under SVT section - Echocardiogram during his [place] hospitalization in April 2023 showed moderate, concentric LV hypertrophy with normal cavity size and systolic function, normal regional wall motion with ejection fraction of 55 to 60%, normal RV size and systolic function, dilated aortic root at 4 cm and ascending aorta at 4 cm, no hemodynamically significant valve disease - Subsequently hospitalized at [facility] (records are not scanned into [facility]) in May 2023 6 days [...] Encounters Date Type Department Care Team Description 12/14/2024 Lab Requisition [facility] Lab [address] [place] [phone] Gris Rousseau MD Type 2 diabetes mellitus without complications ([facility] V[facility], [facility] V28) 12/07/[address] [facility] Lab [address] [place] [phone] Gris Rousseau MD Type 2 diabetes mellitus without complications ([facility] V[facility], [facility] V28) 12/01/[address] [facility] Lab [address] [place] [phone] Gris Rousseau MD Type 2 diabetes mellitus without complications ([facility] V[facility], [facility] V28) 11/27/2024 Billing Patient Not Present Adult Medicine [address] [phone] Zay Bhagat MD 11/25/[address] [facility] Lab [address] [place] [phone] Gris Rousseau MD Type 2 diabetes mellitus without complications ([facility] V[facility], [facility] V28) 11/18/2024 Telephone Adult Medicine [address] [phone] Renny Tolbert LPN 11/14/2024 Telephone Adult Medicine [address] [phone] Zay Bhagat MD 11/13/[address] [facility] Lab [address] [place] [phone] Loren Rothman NP Essential (primary) hypertension; Type 2 diabetes mellitus without complications ([facility] V[facility], [facility] V28) 11/08/[address] [facility] Lab [address] [place] [phone] Loren Rothman NP Chronic cough 11/08/2024 Lab Requisition [facility] [address] [place] [phone] Gris Rousseau MD Hematuria, unspecified; Essential (primary) hypertension; Urinary tract infection, site not specified 11/06/2024 Telephone Adult Medicine [address] [phone] Zay Bhagat MD hosp f/u 10/04/2024 Lab Requisition [facility] Lab [address] [place] [phone] Gris Rousseau MD Type 2 diabetes mellitus without complications (CMS/[facility] V24, [facility] V28) from Last 3 Months Immunizations Name Administration [...] Comments CARDIAC CATHETERIZATION Done on 04/11/2024 at [facility] Indications:Chest tightness w /exertion, recent angina [...] 2024 06/13/2023, 07/11/2022, 10/05/2021, Additional history exists RSV Immunization Adult Patients (1 - 1-dose 75+ series) 2024 Diabetes: Annual Foot Exam 12/24/2024 12/25/2023 Diabetes: Annual Urine Albumin-Creatinine Ratio (uACR) 03/22/2025 03/22/2024 Influenza Vaccine (Season Ended) 2025 06/06/2023, 07/11/2022, 06/07/2021, Additional history exists Diabetes: Blood Sugar Control Test (HGBA1C) 05/16/2025 11/13/2024, 08/19/2024, 03/22/2024, Additional history exists Diabetes: Annual GFR (Glomerular Filtration Rate) 12/16/2025 12/16/2024, 12/09/2024, 12/02/2024, Additional history exists Hypertension/CHF/CAD Annual BMP Blood Test 12/16/2025 12/16/2024, 12/09/2024, 12/02/2024, Additional history exists Cholesterol Screening (Lipid Panel) [...] age to complete this topic Meningococcal B Vaccine Aged Out No l onger eligible based on patient's age to complete this topic RSV Immunization Patients Under 20 months Aged Out No longer eligible based on patient's age to complete this topic Varicella Vaccines Aged Out No longer eligible based on patient's age to complete this topic Procedures Procedure Name Priority Date/Time Associated Diagnosis Comments COMPREHENSIVE METABOLIC PANEL Routine 12/16/2024 9:05 AM EDT Type 2 diabetes mellitus without complications (CMS/HCC V24, CMS/HCC V28) COMPLETE BLOOD COUNT Routine 12/16/2024 9:05 AM EDT Type 2 diabetes mellitus without complications (CMS/HCC V24, CMS/HCC V28) COMPREHENSIVE METABOLIC PANEL Routine 12/09/2024 8:55 AM EDT Type 2 diabetes mellitus without complications COMPLETE BLOOD COUNT Routine 12/09/2024 8:55 AM EDT Type 2 diabetes mellitus without complications COMPREHENSIVE METABOLIC PANEL Routine 12/02/2024 7:12 AM EDT Type 2 diabetes mellitus without complications COMPLETE BLOOD COUNT Routine 12/02/2024 7:12 AM EDT Type 2 diabetes mellitus without complications COMPREHENSIVE METABOLIC PANEL Routine 11/25/2024 8:15 AM EDT Type 2 diabetes mellitus without complications COMPLETE BLOOD COUNT Routine 11/25/2024 8:15 AM EDT Type 2 diabetes mellitus without complications EXTERNAL CT REPORT 11/15/[address] REPORT 11/15/[address] REPORT 11/15/2024 EXTERNAL XRAY REPORT 11/15/[address] REPORT 11/15/[address] REPORT 11/15/2024 EXTERNAL XRAY REPORT 11/15/2024 HEMOGLOBIN A1C Routine 11/13/2024 8:04 AM EDT Essential (primary) hypertension Type 2 diabetes mellitus without complications (CMS/HCC) BASIC METABOLIC PANEL Routine 11/13/2024 8:04 AM EDT Essential (primary) hypertension Type 2 diabetes mellitus without complications (CMS/HCC) COMPLETE BLOOD COUNT Routine 11/13/2024 8:04 AM EDT Essential (primary) hypertension Type 2 diabetes mellitus without complications (CMS/HCC) [id number], RSV, FLU A AND B QUALITATIVE RT-PCR, [...] hypertension Urinary tract infection, site not specified HM URINE ALBUMIN CREATININE RATIO Routine 03/22/2024 LIPID PANEL Routine 03/22/2024 HM COLONOSCOPY Routine 02/29/2024 HM DIABETES FOOT EXAM Routine 12/25/2023 US ABDOMINAL AORTA REAL TIME SCREEN STUDY AAA Routine 09/29/2023 9:30 AM EST Encounter for screening for cardiovascular disorders from Last 3 Months or Most Recently Relevant to Health Maintenance Results * (ABNORMAL) Complete blood count (12/16/2024 9:05 AM EDT) Only the most recent of5 resultswithin the time period is included. WBC 5.5 4.8 - 10.8 K/mcL LAB [facility] RBC 4.10(L) 4.50 - 5.50 M/mcL LAB HEMETOLOGY METHOD [facility] Hemoglobin 12.0(L) 13.5 - 17.5 g/dL LAB HEMETOLOGY METHOD [facility] Hematocrit 37.2(L) 42.0 - 54.0 % LAB HEMETOLOGY METHOD 12[facility]16[facility] MCV 90.1 79.0 - 98.0 FL LAB HEMETOLOGY METHOD [facility] MCH 29.1 27.0 - 32.0 pcg LAB HEMETOLOGY METHOD 12/16/2024 1:25 PM EDT [facility] MCHC 32.3 32.0 - 37.0 g/dL LAB HEMETOLOGY METHOD 12/16/2024 1:25 PM EDT [facility] RDW 15.4(H) 11.0 - 15.0 % LAB HEMETOLOGY METHOD 12/16/2024 1:25 PM EDT [facility] Platelets 203 130 - 400 K/mcL LAB HEMETOLOGY METHOD 12/16/2024 1:25 PM EDT [facility] MPV 10.2 7.0 - 11.0 FL LAB HEMETOLOGY METHOD 12/16/2024 1:25 PM EDT [facility] NRBC 0.0 <1.0 % LAB HEMETOLOGY METHOD 12/16/2024 1:25 PM EDT [facility] NRBC Absolute 0.00 <0.10 K/mcL LAB HEMETOLOGY METHOD 12/16/2024 1:25 PM EDT [facility] Blood Venous blood specimen / Unknown Venipuncture / Unknown 12/16/2024 9:05 AM EDT 12/16/2024 11:37 AM EDT us Gris Rousseau MD LAB BLOOD ORDERABLES Fin al Result [facility] [address] [place] [address], * (ABNORMAL) Comprehensive metabolic panel (12/16/2024 9:05 AM EDT) Only the most recent of4 resultswithin the time period is included. Sodium 141 133 - 145 mmol/L LAB CHEMISTRY METHOD 12/16/2024 2:30 PM EDT [facility] Potassium 4.2 3.5 - 5.5 mmol/L LAB CHEMISTRY METHOD 12/16/2024 2:30 PM EDT [facility] Chloride 106 96 - 110 mmol/L LAB CHEMISTRY METHOD 12/16/2024 2:30 PM [facility] CO2 28 21 - 32 mmol/L LAB CHEMISTRY METHOD 12/16/2024 2:30 PM [facility] Anion Gap 7 3 - 11 LAB CHEMISTRY METHOD 12/16/2024 2:30 PM [facility] Glucose 150(H) 70 - 100 mg/dL LAB CHEMISTRY METHOD 12/16/2024 2:30 PM [facility] BUN 19 5 - 25 mg/dL LAB CHEMISTRY METHOD 12/16/2024 2:30 PM [facility] Creatinine 0.83 0.70 - 1.30 mg/dL LAB CHEMISTRY METHOD 12/16/2024 2:30 PM [facility] eGFR 91 >=60 mL/min/1. 73m2 LAB CHEMISTRY METHOD 12/16/2024 2:30 PM [facility] Comment:Calculation based on the??Chronic Kidney Disease Epidemiology Collaboration (CKD-EPI) equation refit??without adjustment for race. BUN/Creatinine Ratio 22.9 LAB CHEMISTRY METHOD 12/16/2024 2:30 PM [facility] Calcium 9.5 8.5 - 10.5 mg/dL LAB CHEMISTRY METHOD 12/16/2024 2:30 PM [facility] AST (SGOT) 13 10 - 42 unit/L LAB CHEMISTRY METHOD 12/16/2024 2:30 PM [facility] ALT (SGPT) 16 10 - 60 unit/L LAB CHEMISTRY METHOD 12/16/2024 2:30 PM [facility] Alkaline Phosphatase 72 42 - 121 unit/L LAB CHEMISTRY METHOD 12/16/2024 2:30 PM [facility] Total Protein 6.7 6.0 - 8.0 g/dL LAB CHEMISTRY METHOD 12/16/2024 2:30 PM EDT [facility] Albumin 3.4 3.2 - 5.0 g/dL LAB CHEMISTRY METHOD 12/16/2024 2:30 PM EDT [facility] Total Bilirubin 0.3 0.0 - 1.4 mg/dL LAB CHEMISTRY METHOD 12/16/2024 2:30 PM EDT [facility] Blood Venous blood specimen / Unknown Venipuncture / Unknown 12/16/2024 9:05 AM EDT 12/16/2024 11:37 AM EDT Gris Rousseau MD LAB BLOOD ORDERABLES Fin al Result [facility] [address] [place] [address], [place] [phone] * External Xray Report (11/15/2024) Only the most recent of2 resultswithin the time period is included. Anatomical Region Laterality Modality Radiographic Wendy ging Provider [facility] XR PROCEDURES Final Result * External CT Report (11/15/2024) Only the most recent of5 resultswithin the time period is included. Anatomical Region Laterality Modality Computed Tomogra phy Provider [facility] CT PROCEDURES Final Result * (ABNORMAL) Hemoglobin A1c (11/13/2024 8:04 AM EDT) Hemoglobin A1C 6.6(H) <6.5 % LAB CHEMISTRY METHOD 11/13/2024 2:04 PM EDT [facility] Mean Bld Glu Estim. 143 mg/dL LAB CHEMISTRY METHOD 11/13/2024 2:04 PM EDT [facility] Blood Venous blood specimen / Unknown Venipuncture / Unknown 11/13/2024 8:04 AM EDT 11/13/2024 10:43 AM EDT us Loren Rothman NP LAB BLOOD ORDERABLES Final Resul t [facility] [address] [place] [address], * (ABNORMAL) Basic metabolic panel (11/13/2024 8:04 AM EDT) Sodium 143 133 - 145 mmol/L LAB CHEMISTRY METHOD 11/13/2024 1:01 PM [facility] Potassium 3.9 3.5 - 5.5 mmol/L LAB CHEMISTRY METHOD 11/13/2024 1:01 PM [facility] Chloride 109 96 - 110 mmol/L LAB CHEMISTRY METHOD 11/13/2024 1:01 PM [facility] CO2 23 21 - 32 mmol/L LAB CHEMISTRY METHOD 11/13/2024 1:01 PM [facility] Anion Gap 11 3 - 11 LAB CHEMISTRY METHOD 11/13/2024 1:01 PM [facility] Glucose 154(H) 70 - 100 mg/dL LAB CHEMISTRY METHOD 11/13/2024 1:01 PM [facility] BUN 15 5 - 25 mg/dL LAB CHEMISTRY METHOD 11/13/2024 1:01 PM [facility] Creatinine 0.95 0.70 - 1.30 mg/dL LAB CHEMISTRY METHOD 11/13/2024 1:01 PM [facility] eGFR 83 >=60 mL/min/1. 73m2 LAB CHEMISTRY METHOD 11/13/2024 1:01 PM [facility] Comment:Calculation based on the??Chronic Kidney Disease Epidemiology Collaboration (CKD-EPI) equation refit??without adjustment for race. BUN/Creatinine Ratio 15.8 LAB CHEMISTRY METHOD 11/13/2024 1:01 PM [facility] Calcium 8.9 8.5 - 10.5 mg/dL LAB CHEMISTRY METHOD 11/13/2024 1:01 PM EDT [facility] Blood Venous blood specimen / Unknown Venipuncture / Unknown 11/13/2024 8:04 AM EDT 11/13/2024 10:43 AM EDT us Loren Rothman COMMUNITY RECREATION COORDINATOR LAB BLOOD ORDERABLES Final Resul t [facility] [address] [place] [address], * (ABNORMAL) [id number], RSV, Influenza A and B qualitative RT-PCR (11/08/2024 12:00 AM EST) [facility] SARS COV-2 Not Detected Not Detected LAB MOLECULAR DIAGNOSTICS METHOD 11/08/2024 4:47 PM EST [facility] Comment: Disclaimer: The manner in which this information is used to guide patient care is the responsibility of the healthcare provider. Testing was performed using the [employer] m SARS-CoV-2 test. This test has [...] for Healthcare Providers can be found at: https://www.fda.gov/media/648897/download Fact sheet for Patients can be found at: https://www.fda.gov/media/769823/download Influenza A PCR Detected(A ) Not Detected LAB MOLECULAR DIAGNOSTICS METHOD 11/08/2024 4:47 PM EST [facility] Comment:This patient is posi tive for influenza A. If the patient is admitted, please order the Respiratory Virus Panel PCR (Epic ID: [id number]) so our lab can subtype the influenza A, per CDC recommendations. Influenza B PCR Not Detected Not Detected LAB MOLECULAR DIAGNOSTICS METHOD 11/08/2024 4:[address] [facility] RSV PCR Not Detected Not Detected LAB MOLECULAR DIAGNOSTICS METHOD 11/08/2024 4:[address] [facility] Swab Nasopharyngeal structure / Unknown Non-blood Collection / Unknown 11/08/2024 11/08/2024 2:14 PM EST Loren Rothman COMMUNITY RECREATION COORDINATOR LAB MICROBIOLOGY - GENERAL ORDER BRANDIE Final Result [facility] [address] [place] [address], * (ABNORMAL) Urinalysis with reflex microscopic and culture (11/07/2024 11:55 PM EST) Specific [place] Urine 1.020 1.003 - 1.030 LAB URINALYSIS - AUTOMATED METHOD 11/08/2024 12:[address] [facility] pH, Urine 6.0 5.0 - 8.0 pH LAB URINALYSIS - AUTOMATED METHOD 11/08/2024 12:[address] [facility] Leukocytes, Urine Moderate(A) Negative LAB URINALYSIS - AUTOMATED METHOD 11/08/2024 12:[address] [facility] Nitrite, Urine Negative Negative LAB URINALYSIS - AUTOMATED METHOD 11/08/2024 12:[address] [facility] Protein, Urine 30(A) <=Trace mg/dL LAB URINALYSIS - AUTOMATED METHOD 11/08/2024 12:[address] [facility] Glucose, Urine Negative Negative mg/dL LAB URINALYSIS - AUTOMATED METHOD 11/08/2024 12:[address] [facility] Ketones, Urine Negative Negative mg/dL LAB URINALYSIS - AUTOMATED METHOD 11/08/2024 12:[address] [facility] Urobilinogen , Urine 0.2 0.2 - 1.0 mg/dL LAB URINALYSIS - AUTOMATED METHOD 11/08/2024 12:[address] [facility] Bilirubin, Urine Negative Negative LAB URINALYSIS - AUTOMATED METHOD 11/08/2024 12:[address] [facility] Blood, Urine Large(A) Negative LAB URINALYSIS - AUTOMATED METHOD 11/08/2024 12:[address] [facility] RBC, Urine >100(H) 0 - 4 /HPF 11/08/2024 12:[address] [facility] WBC, Urine >100(H) 0 - 4 /HPF 11/08/2024 12:[address] [facility] Squamous Epithelial, Urine 10 0 - 60 /LPF 11/08/2024 12:[address] [facility] Bacteria, Urine Moderate(A) Negative /HPF 11/08/2024 12:[address] [facility] Hyaline Casts, Urine 6(H) 0 - 3 /LPF 11/08/2024 12:[address] [facility] Urine Urine specimen obtained by clean catch procedure / Unknown Non-blood Collection / Unknown 11/07/2024 11:55 PM EST 11/08/2024 11:12 AM EST us Gris Rousseau MD LAB URINE ORDERABLES Fin al Result [facility] [address] [place] [address], * Daniels urine culture tube (11/07/2024 11:55 PM EST) Extra Tube Hold for add-ons. 11/08/2024 1:01 PM EST [facility] Comment:Auto resulted. Urine Urine specimen obtained by clean catch procedure / Unknown Non-blood Collection / Unknown 11/07/2024 11:55 PM EST 11/08/2024 11:12 AM EST Gris Rousseau MD LAB URINE ORDERABLES Fin al Result Performing Organization Address City/[facility]/ZIP Co de Phone Number [facility] [address] [place] [address], [place] [phone] * Culture urine (11/07/2024 11:55 PM EST) [facility] Culture, Urine <10,000 CFU/mL gram negative bacilli, insignificant count, no further workup 11/09/2024 9:02 AM EST [facility] Urine Urine specimen obtained by clean catch procedure / Unknown Non-blood Collection / Unknown 11/07/2024 11:55 PM EST 11/08/2024 12:04 PM EST Gris Rousseau MD LAB MICROBIOLOGY - GENER AL ORDERABLES Final Result Performing Organization Address [facility] Co de Phone Number [facility] [address] [place] [address], [place] [phone] * Urine Albumin Creatinine Ratio (03/22/2024) [facility] Urine Albumin Creatinine Ratio abstracted Historical Provider HEALTH MAINTENANCE Final Result * Lipid panel (03/22/2024) [facility] LDL/HDL Ratio 2 0 - 4 Triglycerides 76 0 - 150 mg/dL Cholesterol 84 0 - 200 mg/dL HDL 45 >=40 mg/dL LDL Cholesterol 24 0 - 100 mg/dL Blood Venous blood specimen / Unknown Historical Provider LAB BLOOD ORDERABLES Tonia l Result * Colonoscopy (02/29/2024) [facility] Colonoscopy no interpreta tion,abstr acted Anatomical Region Laterality Modality Other Historical Provider HEALTH MAINTENANCE Final Result * Diabetes Foot Exam (12/25/2023) [facility] Diabetes: Annual Foot Exam abstracted us Historical Provider HEALTH MAINTENANCE Final Result * [place] [...] or Most Recently Relevant to Health Maintenance Insurance [employer] MEDICARE ADVANTAGE [place]ICA[place] Advance Directives Documents on File Type Date Recorded 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
--- OUTSIDE RECORDS SUMMARY | 2025-01-01 12:25 | XMS_ITS | Encounter Summary ---
Author Organization [facility] Address [address] [place] [address] Care Team Providers Care Software Educator Name Role Phone Zay Bhagat MD Primary Care Provider Encounter Details Date Type Department Care Team (Late st Contact Info) Description 11/08/2024 Lab Requisition [facility] [address] [facility] [place] [place] [address] Loren Rothman NP [address] [place] [address] Chronic cough Social History Tobacco [...] Procedure Name Priority Date/Time Associated Diagnosis Comments [id number], RSV, FLU A AND B QUALITATIVE RT-PCR, LOCAL REFERENCE LAB Routine 11/08/2024 12:00 AM EST Chronic cough documented in this encounter Results * (ABNORMAL) [id number], RSV, Influenza A and B qualitative RT-PCR (11/08/2024 12:00 AM EST) SARS COV-2 Not Detected Not Detected LAB MOLECULAR DIAGNOSTICS METHOD 11/08/2024 4:47 PM EST [facility] Comment: Disclaimer: The manner in [...] for Healthcare Providers can be found at: https://www.fda.gov/media/849125/download Fact sheet for Patients can be found at: https://www.fda.gov/media/033680/download Influenza A PCR Detected(A ) Not Detected LAB MOLECULAR DIAGNOSTICS METHOD 11/08/2024 4:47 PM EST [facility] Comment:This patient is posi tive for influenza A. If the patient is admitted, please order the Respiratory Virus Panel PCR (Epic ID: [id number]) so our lab can subtype the influenza A, per CDC recommendations. Influenza B PCR Not Detected Not Detected LAB MOLECULAR DIAGNOSTICS METHOD 11/08/2024 4:47 PM EST [facility] RSV PCR Not Detected Not Detected LAB MOLECULAR DIAGNOSTICS METHOD 11/08/2024 4:47 PM EST [facility] Swab Nasopharyngeal structure / Unknown Non-blood Collection / Unknown 11/08/2024 11/08/2024 2:14 PM EST Loren Rothman PRECISION STRUCTURAL METAL FITTER LAB MICROBIOLOGY - GENERAL ORDER BRANDIE Final Result [facility] [address] [place] [address], documented in this encounter Visit Diagnoses Diagnosis Chronic cough Cough documented in this encounter Additional Health Concerns Infection Onset Date Last Indicated Resolved Time Respiratory Rule-Out 11/08/2024 11/08/20242 025 4:47 PM EST Influenza 11/08/2024 11/08/2024 12/02/2024 7:05 PM EDT documented as of this encounter Care Teams Software Educator Relationship Specialty Start Date End Date Zay Bhagat MD [address] [place] [address] PCP - General 05/30/23 documented as of this encounter
--- OUTSIDE RECORDS SUMMARY | 2025-01-01 12:25 | XMS_ITS | Encounter Summary ---
Author Organization [facility] Address [address] [place] [address] Care Team Providers Care Slotter Operator Helper Name Role Phone Zay Bhagat MD Primary Care Provider Encounter Details Date Type Department Care Team (Late st Contact Info) Description 11/08/2024 Lab Requisition [facility] - Main Lab 299 [facility] [place] [address] Gris Rousseau MD [address] [phone] Hematuria, unspecified; Essential (primary) hypertension; Urinary tract [...] Culture urine (11/07/2024 11:55 PM EST) Pathologist [facility] Culture, Urine <10,000 CFU/mL gram negative bacilli, insignificant count, no further workup 11/09/2024 9:02 AM [facility] Urine Urine specimen obtained by clean catch procedure / Unknown Non-blood Collection / Unknown 11/07/2024 11:55 PM EST 11/08/2024 12:04 PM EST us Gris Rousseau MD LAB MICROBIOLOGY - GENER AL ORDERABLES Final Result [facility] [address] [place] [address], [place] [phone] * (ABNORMAL) Urinalysis with reflex microscopic and culture (11/07/2024 11:55 PM EST) Pathologist [facility] Specific [place] Urine 1.020 1.003 - 1.030 LAB URINALYSIS - AUTOMATED METHOD 11/08/2024 12:04 PM [facility] pH, Urine 6.0 5.0 - 8.0 pH LAB URINALYSIS - AUTOMATED METHOD 11/08/2024 12:04 PM [facility] Leukocytes, Urine Moderate(A) Negative LAB URINALYSIS - AUTOMATED METHOD 11/08/2024 12:04 PM [facility] Nitrite, Urine Negative Negative LAB URINALYSIS - AUTOMATED METHOD 11/08/2024 12:04 PM [facility] Protein, Urine 30(A) <=Trace mg/dL LAB URINALYSIS - AUTOMATED METHOD 11/08/2024 12:04 PM [facility] Glucose, Urine Negative Negative mg/dL LAB URINALYSIS - AUTOMATED METHOD 11/08/2024 12:04 PM [facility] Ketones, Urine Negative Negative mg/dL LAB URINALYSIS - AUTOMATED METHOD 11/08/2024 12:04 PM [facility] Urobilinogen , Urine 0.2 0.2 - 1.0 mg/dL LAB URINALYSIS - AUTOMATED METHOD 11/08/2024 12:04 PM [facility] Bilirubin, Urine Negative Negative LAB URINALYSIS - AUTOMATED METHOD 11/08/2024 12:04 PM [facility] Blood, Urine Large(A) Negative LAB URINALYSIS - AUTOMATED METHOD 11/08/2024 12:04 PM [facility] RBC, Urine >100(H) 0 - 4 /HPF 11/08/2024 12:04 PM [facility] WBC, Urine >100(H) 0 - 4 /HPF 11/08/2024 12:04 PM [facility] Squamous Epithelial, Urine 10 0 - 60 /LPF 11/08/2024 12:04 PM [facility] Bacteria, Urine Moderate(A) Negative /HPF 11/08/2024 12:04 PM [facility] Hyaline Casts, Urine 6(H) 0 - 3 /LPF 11/08/2024 12:04 PM [facility] Urine Urine specimen obtained by clean catch procedure / Unknown Non-blood Collection / Unknown 11/07/2024 11:55 PM EST 11/08/2024 11:12 AM EST us Gris Rousseau MD LAB URINE ORDERABLES Fin al Result [facility] [address] [place] [address], * Daniels urine culture tube (11/07/2024 11:55 PM EST) Extra Tube Hold for add-ons. 11/08/2024 1:01 PM EST [facility] Comment:Auto resulted. Urine Urine specimen obtained by clean catch procedure / Unknown Non-blood Collection / Unknown 11/07/2024 11:55 PM EST 11/08/2024 11:12 AM EST us Gris Rousseau MD LAB URINE ORDERABLES Fin al Result [facility] [address] [place] [address], documented in this encounter Visit Diagnoses Diagnosis Hematuria, unspecified Essential (primary) hypertension Unspecified essential hypertension Urinary tract infection, site not specified documented in this encounter Additional Health Concerns Infection Onset Date Last Indicated Resolved Time Respiratory Rule-Out 11/08/2024 11/08/2024 025 4:47 PM EST Influenza 11/08/2024 11/08/2024 12/02/2024 7:05 PM EDT documented as of this encounter Care Teams Slotter Operator Helper Relationship Specialty Start Date End Date Zay Bhagat MD [address] [place] [address] PCP - General 05/30/23 documented as of this encounter
--- OUTSIDE RECORDS SUMMARY | 2025-01-01 12:25 | XMS_ITS | Encounter Summary ---
Author Organization [facility] Address [address] [place] [address] Care Team Providers Care Cook Ship Name Role Phone Zay Bhagat MD Primary Care Provider Reason for Visit * Reason Comments home health cert Encounter Details Date Type Department Care Team (Late st Contact Info) Description 11/27/2024 Billing Patient Not Present Adult Medicine [facility] [address] [place] [phone] Zay Bhagat MD [address] [place] [address] Social History Tobacco Use Types Packs/Day Years [...] documented as of this encounter Care Teams Cook Ship Relationship Specialty Start Date End Date Zay Bhagat MD [address] [place] [address] PCP - General 05/30/23 documented as of this encounter
--- OUTSIDE RECORDS SUMMARY | 2025-01-01 12:25 | XMS_ITS | Encounter Summary ---
Author Organization [facility] Address [address] [place] [address] Care Team Providers Care Carpenters Name Role Phone Zay Bahgat MD Primary Care Provider Encounter Details Date Type Department Care Team (Late st Contact Info) Description 09/26/2024 Lab Requisition [facility] - Main Lab [address] [facility] [place] [address] Gris Rousseau MD [address] [phone] Type 2 diabetes mellitus without complications (CMS/HCC [...] mmol/L LAB CHEMISTRY METHOD 09/26/2024 9:18 AM [facility] Potassium 4.0 3.5 - 5.5 mmol/L LAB CHEMISTRY METHOD 09/26/2024 9:18 AM [facility] Chloride 97 96 - 110 mmol/L LAB CHEMISTRY METHOD 09/26/2024 9:18 AM [facility] CO2 29 21 - 32 mmol/L LAB CHEMISTRY METHOD 09/26/2024 9:18 AM [facility] Anion Gap 5 3 - 11 LAB CHEMISTRY METHOD 09/26/2024 9:18 AM [facility] Glucose 117(H) 70 - 100 mg/dL LAB CHEMISTRY METHOD 09/26/2024 9:18 AM [facility] BUN 17 5 - 25 mg/dL LAB CHEMISTRY METHOD 09/26/2024 9:18 AM [facility] Creatinine 0.82 0.70 - 1.30 mg/dL LAB CHEMISTRY METHOD 09/26/2024 9:18 AM [facility] eGFR 92 >=60 mL/min/1. 73m2 LAB CHEMISTRY METHOD 09/26/2024 9:18 AM [facility] Comment:Calculation based on the??Chronic Kidney Disease Epidemiology Collaboration (CKD-EPI) equation refit??without adjustment for race. BUN/Creatinine Ratio 20.7 LAB CHEMISTRY METHOD 09/26/2024 9:18 AM [facility] Calcium 9.0 8.5 - 10.5 mg/dL LAB CHEMISTRY METHOD 09/26/2024 9:18 AM [facility] AST (SGOT) 16 10 - 42 unit/L LAB CHEMISTRY METHOD 09/26/2024 9:18 AM [facility] ALT (SGPT) 19 10 - 60 unit/L LAB CHEMISTRY METHOD 09/26/2024 9:18 AM [facility] Alkaline Phosphatase 59 42 - 121 unit/L LAB CHEMISTRY METHOD 09/26/2024 9:18 AM EST [facility] Total Protein 6.5 6.0 - 8.0 g/dL LAB CHEMISTRY METHOD 09/26/2024 9:18 AM [facility] Albumin 3.5 3.2 - 5.0 g/dL LAB CHEMISTRY METHOD 09/26/2024 9:18 AM [facility] Total Bilirubin 0.6 0.0 - 1.4 mg/dL LAB CHEMISTRY METHOD 09/26/2024 9:18 AM [facility] Blood Venous blood specimen / Unknown Venipuncture / Unknown 09/26/2024 6:01 AM EST 09/26/2024 8:29 AM EST us Gris Rousseau MD LAB BLOOD ORDERABLES Fin al Result [facility] [address] [place] [address], * (ABNORMAL) Complete blood count (09/26/2024 6:01 AM EST) WBC 6.5 4.8 - 10.8 K/mcL LAB HEMETOLOGY METHOD 09/26/2024 8:56 AM [facility] RBC 4.10(L) 4.50 - 5.50 M/mcL LAB HEMETOLOGY METHOD 09/26/2024 8:56 AM [facility] Hemoglobin 12.2(L) 13.5 - 17.5 g/dL LAB HEMETOLOGY METHOD 09/26/2024 8:56 AM [facility] Hematocrit 35.7(L) 42.0 - 54.0 % LAB HEMETOLOGY METHOD 09/26/2024 8:56 AM [facility] MCV 87.9 79.0 - 98.0 FL LAB HEMETOLOGY METHOD 09/26/2024 8:56 AM [facility] MCH 30.0 27.0 - 32.0 pcg LAB HEMETOLOGY METHOD 09/26/2024 8:56 AM EST [facility] MCHC 34.2 32.0 - 37.0 g/dL LAB HEMETOLOGY METHOD 09/26/2024 8:56 AM [facility] RDW 12.2 11.0 - 15.0 % LAB HEMETOLOGY METHOD 09/26/2024 8:56 AM [facility] Platelets 246 130 - 400 K/mcL LAB HEMETOLOGY METHOD 09/26/2024 8:56 AM [facility] MPV 9.5 7.0 - 11.0 FL LAB HEMETOLOGY METHOD 09/26/2024 8:56 AM [facility] NRBC 0.0 <1.0 % LAB HEMETOLOGY METHOD 09/26/2024 8:56 AM [facility] NRBC Absolute 0.00 <0.10 K/mcL LAB HEMETOLOGY METHOD 09/26/2024 8:56 AM [facility] Blood Venous blood specimen / Unknown Venipuncture / Unknown 09/26/2024 6:01 AM EST 09/26/2024 8:29 AM EST us Gris Rousseau MD LAB BLOOD ORDERABLES Fin al Result [facility] [address] [place] [address], documented in this encounter Visit Diagnoses Diagnosis Type 2 diabetes mellitus without complications (CMS/HCC V24, CMS/HCC V28) documented in this encounter Additional Health Concerns Infection Onset Date Last Indicated Resolved Time Respiratory Rule-Out 11/08/2024 11/08/2024 025 4:47 PM EST Influenza 11/08/2024 11/08/2024 12/02/2024 7:05 PM EDT documented as of this encounter Care Teams Carpenters Relationship Specialty Start Date End Date Zay Bhagat MD [address] [place] [address] PCP - General 05/30/23 documented as of this encounter
--- OUTSIDE RECORDS SUMMARY | 2025-01-01 12:25 | XMS_ITS | Encounter Summary ---
Author Organization [facility] Address [address] [place] [address] Care Team Providers Care Airplane And Engine Inspector Name Role Phone Zay Bhagat MD Primary Care Provider Encounter Details Date Type Department Care Team (Late st Contact Info) Description 09/20/2024 Lab Requisition [facility] - Main Lab 299 [facility] [place] [address] Gris Rousseau MD [address] [address] Essential (primary) hypertension Social History Tobacco Use [...] documented as of this encounter Care Teams Airplane And Engine Inspector Relationship Specialty Start Date End Date Zay Bhagat MD [address] [place] [address] PCP - General 05/30/23 documented as of this encounter
--- OUTSIDE RECORDS SUMMARY | 2025-01-01 12:26 | XMS_ITS | Encounter Summary ---
Author Organization [facility] Address [address] [place] [address] Care Team Providers Care Lien Searcher Name Role Phone Zay Bhagat MD Primary Care Provider Encounter Details Date Type Department Care Team (Late st Contact Info) Description 12/07/[address] [facility] - Main Lab 299 [facility] [place] [address] Gris Rousseau MD [address] [phone] Type 2 diabetes mellitus without complications (CMS/HCC [...] Associated Diagnosis Comments COMPLETE BLOOD COUNT Routine 12/09/2024 8:55 AM EDT Type 2 diabetes mellitus without complications COMPREHENSIVE METABOLIC PANEL Routine 12/09/2024 8:55 AM EDT Type 2 diabetes mellitus without complications documented in this encounter Results * (ABNORMAL) Comprehensive metabolic panel (12/09/2024 8:55 AM EDT) Sodium 140 133 - 145 mmol/L LAB CHEMISTRY METHOD 12/09/2024 1:02 PM [facility] Potassium 4.5 3.5 - 5.5 mmol/L LAB CHEMISTRY METHOD 12/09/2024 1:02 PM [facility] Chloride 106 96 - 110 mmol/L LAB CHEMISTRY METHOD 12/09/2024 1:02 PM [facility] CO2 27 21 - 32 mmol/L LAB CHEMISTRY METHOD 12/09/2024 1:02 PM [facility] Anion Gap 7 3 - 11 LAB CHEMISTRY METHOD 12/09/2024 1:02 PM [facility] Glucose 155(H) 70 - 100 mg/dL LAB CHEMISTRY METHOD 12/09/2024 1:02 PM [facility] BUN 16 5 - 25 mg/dL LAB CHEMISTRY METHOD 12/09/2024 1:02 PM [facility] Creatinine 0.79 0.70 - 1.30 mg/dL LAB CHEMISTRY METHOD 12/09/2024 1:02 [facility] eGFR 93 >=60 mL/min/1. 73m2 LAB CHEMISTRY METHOD 12/09/2024 1:02 PM [facility] Comment:Calculation based on the??Chronic Kidney Disease Epidemiology Collaboration (CKD-EPI) equation refit??without adjustment for race. BUN/Creatinine Ratio 20.3 LAB CHEMISTRY METHOD 12/09/2024 1:02 PM [facility] Calcium 9.4 8.5 - 10.5 mg/dL LAB CHEMISTRY METHOD 12/09/2024 1:02 [facility] AST (SGOT) 18 10 - 42 unit/L LAB CHEMISTRY METHOD 12/09/2024 1:02 PM [facility] ALT (SGPT) 15 10 - 60 unit/L LAB CHEMISTRY METHOD 12/09/2024 1:02 PM [facility] Alkaline Phosphatase 70 42 - 121 unit/L LAB CHEMISTRY METHOD 12/09/2024 1:02 PM EDT [facility] Total Protein 6.4 6.0 - 8.0 g/dL LAB CHEMISTRY METHOD 12/09/2024 1:02 PM EDT [facility] Albumin 3.4 3.2 - 5.0 g/dL LAB CHEMISTRY METHOD 12/09/2024 1:02 PM [facility] Total Bilirubin 0.5 0.0 - 1.4 mg/dL LAB CHEMISTRY METHOD 12/09/2024 1:02 PM EDT [facility] Blood Venous blood specimen / Unknown 12/09/2024 8:55 AM EDT 12/09/2024 10:59 AM EDT us Gris Rousseau MD LAB BLOOD ORDERABLES Fin al Result [facility] [address] [place] [address], * (ABNORMAL) Complete blood count (12/09/2024 8:55 AM EDT) WBC 7.7 4.8 - 10.8 K/mcL LAB HEMETOLOGY METHOD 12/09/2024 12:29 PM [facility] RBC 4.10(L) 4.50 - 5.50 M/mcL LAB HEMETOLOGY METHOD 12/09/2024 12:29 PM [facility] Hemoglobin 11.9(L) 13.5 - 17.5 g/dL LAB HEMETOLOGY METHOD 12/09/2024 12:29 PM [facility] Hematocrit 36.0(L) 42.0 - 54.0 % LAB HEMETOLOGY METHOD 12/09/2024 12:29 PM [facility] MCV 87.4 79.0 - 98.0 FL LAB HEMETOLOGY METHOD 12/09/2024 12:29 PM [facility] MCH 28.9 27.0 - 32.0 pcg LAB HEMETOLOGY METHOD 12/09/2024 12:29 PM EDT [facility] MCHC 33.1 32.0 - 37.0 g/dL LAB HEMETOLOGY METHOD 12/09/2024 12:29 PM EDT [facility] RDW 15.1(H) 11.0 - 15.0 % LAB HEMETOLOGY METHOD 12/09/2024 12:29 PM EDT [facility] Platelets 179 130 - 400 K/mcL LAB HEMETOLOGY METHOD 12/09/2024 12:29 PM EDT [facility] MPV 9.9 7.0 - 11.0 FL LAB HEMETOLOGY METHOD 12/09/2024 12:29 PM EDT [facility] NRBC 0.0 <1.0 % LAB HEMETOLOGY METHOD 12/09/2024 12:29 PM EDT [facility] NRBC Absolute 0.00 <0.10 K/mcL LAB HEMETOLOGY METHOD 12/09/2024 12:29 PM EDT [facility] Blood Venous blood specimen / Unknown 12/09/2024 8:55 AM EDT 12/09/2024 10:59 AM EDT us Gris Rousseau MD LAB BLOOD ORDERABLES Fin al Result [facility] [address] [place] [address], documented in this encounter Visit Diagnoses Diagnosis Type 2 diabetes mellitus without complications (CMS/HCC V24, CMS/HCC V28) documented in this encounter Care Teams Lien Searcher Relationship Specialty Start Date End Date Zay Bhagat MD [address] [place] [address] PCP - General 05/30/23 documented as of this encounter
--- OUTSIDE RECORDS SUMMARY | 2025-01-01 12:26 | XMS_ITS | Encounter Summary ---
Author Organization [facility] Address [address] [place] [address] Care Team Providers Care Ecological Technical Officer Name Role Phone Zay Bhagat MD Primary Care Provider Encounter Details Date Type Department Care Team (Late st Contact Info) Description 12/01/2024 Lab Requisition [facility] - Main Lab 299 [facility] [place] [address] Gris Rousseau MD [address] [phone] Type 2 diabetes mellitus without complications (CMS/HCC [...] Associated Diagnosis Comments COMPLETE BLOOD COUNT Routine 12/02/2024 7:12 AM EDT Type 2 diabetes mellitus without complications COMPREHENSIVE METABOLIC PANEL Routine 12/02/2024 7:12 AM EDT Type 2 diabetes mellitus without complications documented in this encounter Results * Comprehensive metabolic panel (12/02/2024 7:12 AM EDT) Sodium 140 133 - 145 mmol/L LAB CHEMISTRY METHOD 12/02/2024 12:09 PM EDT [facility] Potassium 4.6 3.5 - 5.5 mmol/L LAB CHEMISTRY METHOD 12/02/2024 12:09 PM [facility] Chloride 105 96 - 110 mmol/L LAB CHEMISTRY METHOD 12/02/2024 12:09 PM [facility] CO2 28 21 - 32 mmol/L LAB CHEMISTRY METHOD 12/02/2024 12:09 PM [facility] Anion Gap 7 3 - 11 LAB CHEMISTRY METHOD 12/02/2024 12:09 PM [facility] Glucose 93 70 - 100 mg/dL LAB CHEMISTRY METHOD 12/02/2024 12:09 PM [facility] BUN 18 5 - 25 mg/dL LAB CHEMISTRY METHOD 12/02/2024 12:09 PM [facility] Creatinine 0.80 0.70 - 1.30 mg/dL LAB CHEMISTRY METHOD 12/02/2024 12:09 PM [facility] eGFR 92 >=60 mL/min/1. 73m2 LAB CHEMISTRY METHOD 12/02/2024 12:09 PM [facility] Comment:Calculation based on the??Chronic Kidney Disease Epidemiology Collaboration (CKD-EPI) equation refit??without adjustment for race. BUN/Creatinine Ratio 22.5 LAB CHEMISTRY METHOD 12/02/2024 12:09 PM [facility] Calcium 9.5 8.5 - 10.5 mg/dL LAB CHEMISTRY METHOD 12/02/2024 12:09 PM [facility] AST (SGOT) 12 10 - 42 unit/L LAB CHEMISTRY METHOD 12/02/2024 12:09 PM [facility] ALT (SGPT) 18 10 - 60 unit/L LAB CHEMISTRY METHOD 12/02/2024 12:09 PM [facility] Alkaline Phosphatase 72 42 - 121 unit/L LAB CHEMISTRY METHOD 12/02/2024 12:09 PM [facility] Total Protein 6.6 6.0 - 8.0 g/dL LAB CHEMISTRY METHOD 12/02/2024 12:09 PM EDT [facility] Albumin 3.2 3.2 - 5.0 g/dL LAB CHEMISTRY METHOD 12/02/2024 12:09 PM EDT [facility] Total Bilirubin 0.6 0.0 - 1.4 mg/dL LAB CHEMISTRY METHOD 12/02/2024 12:09 PM EDT [facility] Blood Venous blood specimen / Unknown Venipuncture / Unknown 12/02/2024 7:12 AM EDT 12/02/2024 10:30 AM EDT us Gris Rousseau MD LAB BLOOD ORDERABLES Fin al Result [facility] [address] [place] [address], * (ABNORMAL) Complete blood count (12/02/2024 7:12 AM EDT) WBC 7.2 4.8 - 10.8 K/mcL LAB HEMETOLOGY METHOD 12/02/2024 11:20 AM EDT [facility] RBC 4.30(L) 4.50 - 5.50 M/mcL LAB HEMETOLOGY METHOD 12/02/2024 11:20 AM EDT [facility] Hemoglobin 12.6(L) 13.5 - 17.5 g/dL LAB HEMETOLOGY METHOD 12/02/2024 11:20 AM EDT [facility] Hematocrit 38.4(L) 42.0 - 54.0 % LAB HEMETOLOGY METHOD 12/02/2024 11:20 AM EDT [facility] MCV 88.7 79.0 - 98.0 FL LAB HEMETOLOGY METHOD 12/02/2024 11:20 AM EDT [facility] MCH 29.1 27.0 - 32.0 pcg LAB HEMETOLOGY METHOD 12/02/2024 11:20 AM EDT [facility] MCHC 32.8 32.0 - 37.0 g/dL LAB HEMETOLOGY METHOD 12/02/2024 11:20 AM EDT [facility] RDW 15.1(H) 11.0 - 15.0 % LAB HEMETOLOGY METHOD 12/02/2024 11:20 AM EDT [facility] Platelets 211 130 - 400 K/mcL LAB HEMETOLOGY METHOD 12/02/2024 11:20 AM EDT [facility] MPV 10.4 7.0 - 11.0 FL LAB HEMETOLOGY METHOD 12/02/2024 11:20 AM EDT [facility] NRBC 0.0 <1.0 % LAB HEMETOLOGY METHOD 12/02/2024 11:20 AM EDT [facility] NRBC Absolute 0.00 <0.10 K/mcL LAB HEMETOLOGY METHOD 12/02/2024 11:20 AM EDT [facility] Blood Venous blood specimen / Unknown Venipuncture / Unknown 12/02/2024 7:12 AM EDT 12/02/2024 10:30 AM EDT Gris Rousseau MD LAB BLOOD ORDERABLES Fin al Result [facility] [address] [place] [address], documented in this encounter Visit Diagnoses Diagnosis Type 2 diabetes mellitus without complications (CMS/HCC V24, CMS/HCC V28) documented in this encounter Additional Health Concerns Infection Onset Date Last Indicated Resolved Time Influenza 11/08/2024 11/08/2024 12/02/2024 7:05 PM EDT documented as of this encounter Care Teams Ecological Technical Officer Relationship Specialty Start Date End Date Zay Bhagat MD [address] [place] [address] PCP - General 05/30/23 documented as of this encounter
--- OUTSIDE RECORDS SUMMARY | 2025-01-01 12:26 | XMS_ITS | Encounter Summary ---
Author Organization [facility] Address [address] [place] [address] Care Team Providers Care Technical Services Manager Name Role Phone Zay Bhagat MD Primary Care Provider Encounter Details Date Type Department Care Team (Latest Contact Info) Description 11/13/2024 Lab Requisition [facility] - Main Lab [address] [facility] [place] [address] Loren Rothman NP [address] [place] [address] Essential (primary) hypertension; Type 2 diabetes mellitus without complications (CMS/HCC [...] (ABNORMAL) Hemoglobin A1c (11/13/2024 8:04 AM EDT) Pathologist [facility] Hemoglobin A1C 6.6(H) <6.5 % LAB CHEMISTRY METHOD 11/13/2024 2:04 PM [facility] Mean Bld Glu Estim. 143 mg/dL LAB CHEMISTRY METHOD 11/13/2024 2:04 PM [facility] Blood Venous blood specimen / Unknown Venipuncture / Unknown 11/13/2024 8:04 AM EDT 11/13/2024 10:43 AM EDT Loren Rothman TRANSLITERATOR LAB BLOOD ORDERABLES Final Resul t [facility] [address] [place] [address], * (ABNORMAL) Basic metabolic panel (11/13/2024 8:04 AM EDT) [facility] Sodium 143 133 - 145 mmol/L LAB CHEMISTRY METHOD 11/13/2024 1:01 PM [facility] Potassium 3.9 3.5 - 5.5 mmol/L LAB CHEMISTRY METHOD 11/13/2024 1:01 PM [facility] Chloride 109 96 - 110 mmol/L LAB CHEMISTRY METHOD 11/13/2024 1:01 PM [facility] CO2 23 21 - 32 mmol/L LAB CHEMISTRY METHOD 11/13/2024 1:01 PM [facility] Anion Gap 11 3 - 11 LAB CHEMISTRY METHOD 11/13/2024 1:01 PM [facility] Glucose 154(H) 70 - 100 mg/dL LAB CHEMISTRY METHOD 11/13/2024 1:01 PM [facility] BUN 15 5 - 25 mg/dL LAB CHEMISTRY METHOD 11/13/2024 1:01 PM [facility] Creatinine 0.95 0.70 - 1.30 mg/dL LAB CHEMISTRY METHOD 11/13/2024 1:01 PM EDT [facility] eGFR 83 >=60 mL/min/1. 73m2 LAB CHEMISTRY METHOD 11/13/2024 1:01 PM EDT [facility] Comment:Calculation based on the??Chronic Kidney Disease Epidemiology Collaboration (CKD-EPI) equation refit??without adjustment for race. BUN/Creatinine Ratio 15.8 LAB CHEMISTRY METHOD 11/13/2024 1:01 PM EDT [facility] Calcium 8.9 8.5 - 10.5 mg/dL LAB CHEMISTRY METHOD 11/13/2024 1:01 PM EDT [facility] Blood Venous blood specimen / Unknown Venipuncture / Unknown 11/13/2024 8:04 AM EDT 11/13/2024 10:43 AM EDT Loren Rothman TRANSLITERATOR LAB BLOOD ORDERABLES Final Resul t [facility] [address] [place] [address], * (ABNORMAL) Complete blood count (11/13/2024 8:04 AM EDT) WBC 5.7 4.8 - 10.8 K/mcL LAB HEMETOLOGY METHOD 11/13/2024 12:18 PM [facility] RBC 4.00(L) 4.50 - 5.50 M/mcL LAB HEMETOLOGY METHOD [facility] Hemoglobin 11.5(L) 13.5 - 17.5 g/dL LAB HEMETOLOGY METHOD 11/13/2024 12:18 PM [facility] Hematocrit 35.7(L) 42.0 - 54.0 % LAB HEMETOLOGY METHOD 11/13/2024 12:18 PM EDT [facility] MCV 88.8 79.0 - 98.0 FL LAB HEMETOLOGY METHOD 11/13/2024 12:18 PM EDT [facility] MCH 28.6 27.0 - 32.0 pcg LAB HEMETOLOGY METHOD 11/13/2024 12:18 PM EDT [facility] MCHC 32.2 32.0 - 37.0 g/dL LAB HEMETOLOGY METHOD 11/13/2024 12:18 PM EDT [facility] RDW 14.4 11.0 - 15.0 % LAB HEMETOLOGY METHOD 11/13/2024 12:18 PM EDT [facility] Platelets 201 130 - 400 K/mcL LAB HEMETOLOGY METHOD 11/13/2024 12:18 PM EDT [facility] MPV 9.8 7.0 - 11.0 FL LAB HEMETOLOGY METHOD 11/13/2024 12:18 PM EDT [facility] NRBC 0.0 <1.0 % LAB HEMETOLOGY METHOD 11/13/2024 12:18 PM EDT [facility] NRBC Absolute 0.00 <0.10 K/mcL LAB HEMETOLOGY METHOD 11/13/2024 12:18 PM EDT [facility] Blood Venous blood specimen / Unknown Venipuncture / Unknown 11/13/2024 8:04 AM EDT 11/13/2024 10:43 AM EDT us Loren Rothman NP LAB BLOOD ORDERABLES Final Resul t [facility] [address] [place] [address], documented in this encounter Visit Diagnoses Diagnosis Essential (primary) hypertension Unspecified essential hypertension Type 2 diabetes mellitus without complications (CMS/HCC V24, CMS/HCC V28) documented in this encounter Additional Health Concerns Infection Onset Date Last Indicated Resolved Time Influenza 11/08/2024 11/08/2024 12/02/2024 7:05 PM EDT documented as of this encounter Care Teams Technical Services Manager Relationship Specialty Start Date End Date Zay Bhagat MD [address] [place] [address] PCP - General 05/30/23 documented as of this encounter
--- OUTSIDE RECORDS SUMMARY | 2025-01-01 12:26 | XMS_ITS | Encounter Summary ---
Author Organization [facility] Address [address] [place] [address] Care Team Providers Care Multi Line Claims Adjuster Name Role Phone Zay Bhagat MD Primary Care Provider Encounter Details Date Type Department Care Team (Late st Contact Info) Description 08/27/2024 Lab Requisition [facility] - Main Lab [address] [facility] [place] [address] Gris Rousseau MD [address] [phone] Type 2 diabetes mellitus without complications (CMS/HCC V24, CMS/HCC V28); Heart failure, unspecified (CMS/HCC V24, CMS/HCC V28) Social History Tobacco [...] EST Type 2 diabetes mellitus without complications ([facility]/HCC) Heart failure, unspecified (CMS/HCC) documented in this encounter Results * (ABNORMAL) Urinalysis microscopic only (08/26/2024 9:00 PM EST) RBC, Urine 1.8 0 - 4 /HPF LAB URINALYSIS - AUTOMATED METHOD 08/27/2024 10:31 AM [facility] WBC, Urine 8.4(H) 0 - 4 /HPF LAB URINALYSIS - AUTOMATED METHOD 08/27/2024 10:31 AM [facility] Squamous Epithelial, Urine 48 0 - 60 /LPF LAB URINALYSIS - AUTOMATED METHOD 08/27/2024 10:31 AM [facility] Bacteria, Urine Negative Negative /HPF LAB URINALYSIS - AUTOMATED METHOD 08/27/2024 10:31 AM [facility] Hyaline Casts, Urine 2.5 0 - 3 /LPF LAB URINALYSIS - AUTOMATED METHOD 08/27/2024 10:31 AM [facility] Urine Indwelling urinary catheter / Unknown 08/26/2024 9:00 PM EST 08/27/2024 10:06 AM EST us Gris Rousseau MD LAB URINE ORDERABLES Fin al Result [facility] [address] [place] [address], * (ABNORMAL) Culture urine (08/26/2024 9:00 PM EST) Culture, Urine >100,000 CFU/mL Leclercia adecarboxylata(A) NI 08/29/2024 10:11 AM [facility] Comment: This is an edited result. Previous organism was Gram negative bacilli on 08/28/2024 at 1240 EST. Culture, Urine >100,000 CFU/mL Staphylococcus epidermidis(A) NI 08/29/2024 10:11 AM EST [facility] Comment: Edited result: Previously reported as [...] MICROBIOLOGY - GENER AL ORDERABLES Final Result [facility] [address] [place] [address], [place] [phone] documented in this encounter Visit Diagnoses Diagnosis Type 2 diabetes mellitus without complications (CMS/[facility] V24, CMS/[facility] V28) Heart failure, unspecified ([facility] V24, [facility] V28) Heart failure, unspecified documented in this encounter Additional Health Concerns Infection Onset Date Last Indicated Resolved Time Respiratory Rule-Out 11/08/2024 11/08/2024 025 4:47 PM EST Influenza 11/08/2024 11/08/2024 12/02/2024 7:05 PM EDT documented as of this encounter Care Teams Multi Line Claims Adjuster Relationship Specialty Start Date End Date Zay Bhagat MD [address] [place] [address] PCP - General 05/30/23 documented as of this encounter
--- OUTSIDE RECORDS SUMMARY | 2025-01-01 12:26 | XMS_ITS | Encounter Summary ---
Author Organization [facility] Address [address] [place] [address] Care Team Providers Care Syrup Mixer Helper Name Role Phone Zay Bhagat MD Primary Care Provider Encounter Details Date Type Department Care Team (Late st Contact Info) Description 08/16/2024 Lab Requisition [facility] - Main Lab [address] [facility] [place] [address] Gris Rousseau MD [address] [phone] Heart failure, unspecified (CMS/HCC V24, CMS/HCC V28); Anemia, unspecified; Type 2 diabetes mellitus without complications (CMS/HCC [...] (CMS/HCC) documented in this encounter Results * Hemoglobin A1c (08/19/2024 9:22 AM EST) Pathologist [facility] Hemoglobin A1C 6.1 <6.5 % LAB CHEMISTRY METHOD 08/19/2024 2:45 PM EST [facility] Mean Bld Glu Estim. 128 mg/dL LAB CHEMISTRY METHOD 08/19/2024 2:45 PM EST [facility] Blood Venous blood specimen / Unknown Venipuncture / Unknown 08/19/2024 9:22 AM EST 08/19/2024 12:07 PM EST us Gris Rousseau MD LAB BLOOD ORDERABLES Fin al Result [facility] [address] [place] [address], * (ABNORMAL) Comprehensive metabolic panel (08/19/2024 9:22 AM EST) [facility] [address] Sodium 135 133 - 145 mmol/L LAB CHEMISTRY METHOD 08/19/2024 5:[address] [facility] Potassium 4.7 3.5 - 5.5 mmol/L LAB CHEMISTRY METHOD 08/19/2024 5:[address] [facility] Chloride 101 96 - 110 mmol/L LAB CHEMISTRY METHOD 08/19/2024 5:[address] [facility] CO2 26 21 - 32 mmol/L LAB CHEMISTRY METHOD 08/19/2024 5:[address] [facility] Anion Gap 8 3 - 11 LAB CHEMISTRY METHOD 08/19/2024 5:[address] [facility] Glucose 272(H) 70 - 100 mg/dL LAB CHEMISTRY METHOD 08/19/2024 5:[address] [facility] BUN 13 5 - 25 mg/dL LAB CHEMISTRY METHOD 08/19/2024 5:[address] [facility] Creatinine 0.94 0.70 - 1.30 mg/dL LAB CHEMISTRY METHOD 08/19/2024 5:[address] [facility] eGFR 85 >=60 mL/min/1. 73m2 LAB CHEMISTRY METHOD 08/19/2024 5:[address] [facility] Comment:Calculation based on the??Chronic Kidney Disease Epidemiology Collaboration (CKD-EPI) equation refit??without adjustment for race. BUN/Creatinine Ratio 13.8 LAB CHEMISTRY METHOD 08/19/2024 5:[address] [facility] Calcium 9.4 8.5 - 10.5 mg/dL LAB CHEMISTRY METHOD 08/19/2024 5:[address] [facility] AST (SGOT) 19 10 - 42 unit/L LAB CHEMISTRY METHOD 08/19/2024 5:[address] [facility] ALT (SGPT) 25 10 - 60 unit/L LAB CHEMISTRY METHOD 08/19/2024 5:[address] [facility] Alkaline Phosphatase 58 42 - 121 unit/L LAB CHEMISTRY METHOD 08/19/2024 5:[address] [facility] Total Protein 6.3 6.0 - 8.0 g/dL LAB CHEMISTRY METHOD 08/19/2024 5:[address] [facility] Albumin 3.4 3.2 - 5.0 g/dL LAB CHEMISTRY METHOD 08/19/2024 5:[address] [facility] Total Bilirubin 0.4 0.0 - 1.4 mg/dL LAB CHEMISTRY METHOD 08/19/2024 5:[address] [facility] Blood Venous blood specimen / Unknown Venipuncture / Unknown 08/19/2024 9:22 AM EST 08/19/2024 12:09 PM EST us Gris Rousseau MD LAB BLOOD ORDERABLES Fin al Result [facility] [address] [place] [address], * (ABNORMAL) Complete blood count (08/19/2024 9:22 AM EST) [facility] Signature WBC 6.0 4.8 - 10.8 K/mcL LAB HEMETOLOGY METHOD 08/19/2024 12:53 PM EST [facility] RBC 4.10(L) 4.50 - 5.50 M/mcL LAB HEMETOLOGY METHOD 08/19/2024 12:53 PM EST [facility] Hemoglobin 12.7(L) 13.5 - 17.5 g/dL LAB HEMETOLOGY METHOD 08/19/2024 12:[address] [facility] Hematocrit 38.2(L) 42.0 - 54.0 % LAB HEMETOLOGY METHOD 08/19/2024 12:53 PM EST [facility] MCV 92.3 79.0 - 98.0 FL LAB HEMETOLOGY METHOD 08/19/2024 12:53 PM EST [facility] MCH 30.7 27.0 - 32.0 pcg LAB HEMETOLOGY METHOD 08/19/2024 12:53 PM EST [facility] MCHC 33.2 32.0 - 37.0 g/dL LAB HEMETOLOGY METHOD 08/19/2024 12:53 PM EST [facility] RDW 12.2 11.0 - 15.0 % LAB HEMETOLOGY METHOD 08/19/2024 12:[address] [facility] Platelets 250 130 - 400 K/mcL LAB HEMETOLOGY METHOD 08/19/2024 12:[address] [facility] MPV 9.5 7.0 - 11.0 FL LAB HEMETOLOGY METHOD 08/19/2024 12:[address] [facility] NRBC 0.0 <1.0 % LAB HEMETOLOGY METHOD 08/19/2024 12:53 PM EST [facility] NRBC Absolute 0.00 <0.10 K/mcL LAB HEMETOLOGY METHOD 08/19/2024 12:53 PM EST [facility] Blood Venous blood specimen / Unknown Venipuncture / Unknown 08/19/2024 9:22 AM EST 08/19/2024 12:07 PM EST us Gris Rousseau MD LAB BLOOD ORDERABLES Fin al Result [facility] [address] [place] [address], documented in this encounter Visit Diagnoses Diagnosis Heart failure, unspecified (CMS/HCC V24, CMS/HCC V28) Heart failure, unspecified Anemia, unspecified Type 2 diabetes mellitus without complications (CMS/HCC V24, CMS/HCC V28) documented in this encounter Additional Health Concerns Infection Onset Date Last Indicated Resolved Time Respiratory Rule-Out 11/08/2024 11/08/2024 025 4:47 PM EST Influenza 11/08/2024 11/08/2024 12/02/2024 7:05 PM EDT documented as of this encounter Care Teams Syrup Mixer Helper Relationship Specialty Start Date End Date Zay Bhagat MD [address] [place] [address] PCP - General 05/30/23 documented as of this encounter
--- OUTSIDE RECORDS SUMMARY | 2025-01-01 12:26 | XMS_ITS | Encounter Summary ---
Author Organization [facility] Address [address] [place] [address] Care Team Providers Care Chief Orthoptist Name Role Phone Zay Bhagat MD Primary Care Provider Encounter Details Date Type Department Care Team (Late st Contact Info) Description 09/06/2024 Lab Requisition [facility] - Main Lab [address] [place] [address] Gris Rousseau MD [address] [address] Essential (primary) hypertension Social History Tobacco Use [...] LAB CHEMISTRY METHOD 09/09/2024 12:[address] [facility] Potassium 4.2 3.5 - 5.5 mmol/L LAB CHEMISTRY METHOD 09/09/2024 12:37 PM [facility] Chloride 100 96 - 110 mmol/L LAB CHEMISTRY METHOD 09/09/2024 12:37 PM [facility] CO2 29 21 - 32 mmol/L LAB CHEMISTRY METHOD 09/09/2024 12:37 PM [facility] Anion Gap 3 3 - 11 LAB CHEMISTRY METHOD 09/09/2024 12:37 PM [facility] Glucose 59(L) 70 - 100 mg/dL LAB CHEMISTRY METHOD 09/09/2024 12:37 PM [facility] BUN 14 5 - 25 mg/dL LAB CHEMISTRY METHOD 09/09/2024 12:37 PM [facility] Creatinine 0.84 0.70 - 1.30 mg/dL LAB CHEMISTRY METHOD 09/09/2024 12:37 PM [facility] eGFR 91 >=60 mL/min/1. 73m2 LAB CHEMISTRY METHOD 09/09/2024 12:37 PM [facility] Comment:Calculation based on the??Chronic Kidney Disease Epidemiology Collaboration (CKD-EPI) equation refit??without adjustment for race. BUN/Creatinine Ratio 16.7 LAB CHEMISTRY METHOD 09/09/2024 12:37 PM [facility] Calcium 9.3 8.5 - 10.5 mg/dL LAB CHEMISTRY METHOD 09/09/2024 12:37 PM [facility] AST (SGOT) 9(L) 10 - 42 unit/L LAB CHEMISTRY METHOD 09/09/2024 12:37 PM [facility] ALT (SGPT) 15 10 - 60 unit/L LAB CHEMISTRY METHOD 09/09/2024 12:37 PM [facility] Alkaline Phosphatase 60 42 - 121 unit/L LAB CHEMISTRY METHOD 09/09/2024 12:37 PM [facility] Total Protein 6.4 6.0 - 8.0 g/dL LAB CHEMISTRY METHOD 09/09/2024 12:37 PM [facility] Albumin 3.2 3.2 - 5.0 g/dL LAB CHEMISTRY METHOD 09/09/2024 12:37 PM [facility] Total Bilirubin 0.5 0.0 - 1.4 mg/dL LAB CHEMISTRY METHOD 09/09/2024 12:37 PM [facility] Blood Venous blood specimen / Unknown Venipuncture / Unknown 09/09/2024 7:06 AM EST 09/09/2024 10:55 AM EST us Gris Rousseau MD LAB BLOOD ORDERABLES Fin al Result [facility] [address] [place] [address], * (ABNORMAL) Complete blood count (09/09/2024 7:06 AM EST) WBC 13.9(H) 4.8 - 10.8 K/mcL LAB HEMETOLOGY METHOD 09/09/2024 11:42 AM [facility] RBC 4.20(L) 4.50 - 5.50 M/mcL LAB HEMETOLOGY METHOD 09/09/2024 11:42 AM [facility] Hemoglobin 12.9(L) 13.5 - 17.5 g/dL LAB HEMETOLOGY METHOD 09/09/2024 11:42 AM [facility] Hematocrit 38.4(L) 42.0 - 54.0 % LAB HEMETOLOGY METHOD 09/09/2024 11:42 AM [facility] MCV 92.3 79.0 - 98.0 FL LAB HEMETOLOGY METHOD 09/09/2024 11:42 AM [facility] MCH 31.0 27.0 - 32.0 pcg LAB HEMETOLOGY METHOD 09/09/2024 11:42 AM EST [facility] MCHC 33.6 32.0 - 37.0 g/dL LAB HEMETOLOGY METHOD 09/09/2024 11:42 AM [facility] RDW 12.9 11.0 - 15.0 % LAB HEMETOLOGY METHOD 09/09/2024 11:42 AM [facility] Platelets 206 130 - 400 K/mcL LAB HEMETOLOGY METHOD 09/09/2024 11:42 AM [facility] MPV 9.8 7.0 - 11.0 FL LAB HEMETOLOGY METHOD 09/09/2024 11:42 AM [facility] NRBC 0.0 <1.0 % LAB HEMETOLOGY METHOD 09/09/2024 11:42 AM [facility] NRBC Absolute 0.00 <0.10 K/mcL LAB HEMETOLOGY METHOD 09/09/2024 11:42 AM [facility] Blood Venous blood specimen / Unknown Venipuncture / Unknown 09/09/2024 7:06 AM EST 09/09/2024 10:55 AM EST us Gris Rousseau MD LAB BLOOD ORDERABLES Fin al Result [facility] [address] [place] [address], documented in this encounter Visit Diagnoses Diagnosis Essential (primary) hypertension Unspecified essential hypertension documented in this encounter Additional Health Concerns Infection Onset Date Last Indicated Resolved Time Respiratory Rule-Out 11/08/2024 11/08/2024 025 4:47 PM EST Influenza 11/08/2024 11/08/2024 12/02/2024 7:05 PM EDT documented as of this encounter Care Teams Chief Orthoptist Relationship Specialty Start Date End Date Zay Bhagat MD [address] [place] [address] PCP - General 05/30/23 documented as of this encounter
--- OUTSIDE RECORDS SUMMARY | 2025-01-01 12:26 | XMS_ITS | Encounter Summary ---
Author Organization [facility] Address [address] [place] [address] Care Team Providers Care Pharmacist In Charge Owner Name Role Phone Zay Bhagat MD Primary Care Provider Encounter Details Date Type Department Care Team (Late st Contact Info) Description 12/14/2024 Lab Requisition [facility] - Main Lab 299 [facility] [place] [address] Gris Rousseau MD [address] [id number] Type 2 diabetes mellitus without complications (CMS/HCC [...] Associated Diagnosis Comments COMPLETE BLOOD COUNT Routine 12/16/2024 9:05 AM EDT Type 2 diabetes mellitus without complications (CMS/HCC V24, CMS/HCC V28) COMPREHENSIVE METABOLIC PANEL Routine 12/16/2024 9:05 AM EDT Type 2 diabetes mellitus without complications (CMS/HCC V24, CMS/HCC V28) documented in this encounter Results * (ABNORMAL) Comprehensive metabolic panel (12/16/2024 9:05 AM EDT) Sodium 141 133 - 145 mmol/L LAB CHEMISTRY METHOD 12/16/2024 2:30 PM [facility] Potassium 4.2 3.5 - 5.5 mmol/L LAB CHEMISTRY METHOD 12/16/2024 2:30 PM [facility] Chloride 106 96 - 110 mmol/L LAB CHEMISTRY METHOD 12/16/2024 2:30 PM [facility] CO2 28 21 - 32 mmol/L LAB CHEMISTRY METHOD 12/16/2024 2:30 PM [facility] Anion Gap 7 3 - 11 LAB CHEMISTRY METHOD 12/16/2024 2:30 PM [facility] Glucose 150(H) 70 - 100 mg/dL LAB CHEMISTRY METHOD 12/16/2024 2:30 PM [facility] BUN 19 5 - 25 mg/dL LAB CHEMISTRY METHOD 12/16/2024 2:30 PM [facility] Creatinine 0.83 0.70 - 1.30 mg/dL LAB CHEMISTRY METHOD 12/16/2024 2:30 PM [facility] eGFR 91 >=60 mL/min/1. 73m2 LAB CHEMISTRY METHOD 12/16/2024 2:30 PM [facility] Comment:Calculation based on the??Chronic Kidney Disease Epidemiology Collaboration (CKD-EPI) equation refit??without adjustment for race. BUN/Creatinine Ratio 22.9 LAB CHEMISTRY METHOD 12/16/2024 2:30 PM [facility] Calcium 9.5 8.5 - 10.5 mg/dL LAB CHEMISTRY METHOD 12/16/2024 2:30 PM [facility] AST (SGOT) 13 10 - 42 unit/L LAB CHEMISTRY METHOD 12/16/2024 2:30 PM [facility] ALT (SGPT) 16 10 - 60 unit/L LAB CHEMISTRY METHOD 12/16/2024 2:30 PM [facility] Alkaline Phosphatase 72 42 - 121 unit/L LAB CHEMISTRY METHOD 12/16/2024 2:30 PM EDT [facility] Total Protein 6.7 6.0 - 8.0 g/dL LAB CHEMISTRY METHOD 12/16/2024 2:30 PM EDT [facility] Albumin 3.4 3.2 - 5.0 g/dL LAB CHEMISTRY METHOD 12/16/2024 2:30 PM EDT [facility] Total Bilirubin 0.3 0.0 - 1.4 mg/dL LAB CHEMISTRY METHOD 12/16/2024 2:30 PM EDT [facility] Blood Venous blood specimen / Unknown Venipuncture / Unknown 12/16/2024 9:05 AM EDT 12/16/2024 11:37 AM EDT Gris Rousseau MD LAB BLOOD ORDERABLES Fin al Result [facility] [address] [place] [address], * (ABNORMAL) Complete blood count (12/16/2024 9:05 AM EDT) WBC 5.5 4.8 - 10.8 K/[facility] LAB HEMETOLOGY METHOD 12/16/2024 1:25 PM EDT [facility] RBC 4.10(L) 4.50 - 5.50 M/[facility] LAB HEMETOLOGY METHOD 12/16/2024 1:25 PM EDT [facility] Hemoglobin 12.0(L) 13.5 - 17.5 g/dL LAB HEMETOLOGY METHOD 12/16/2024 1:25 PM EDT [facility] Hematocrit 37.2(L) 42.0 - 54.0 % LAB HEMETOLOGY METHOD 12/16/2024 1:25 PM EDT [facility] MCV 90.1 79.0 - 98.0 FL LAB HEMETOLOGY METHOD 12/16/2024 1:25 PM EDT [facility] MCH 29.1 27.0 - 32.0 pcg LAB HEMETOLOGY METHOD 12/16/2024 1:25 PM EDT [facility] MCHC 32.3 32.0 - 37.0 g/dL LAB HEMETOLOGY METHOD 12/16/2024 1:25 PM EDT [facility] RDW 15.4(H) 11.0 - 15.0 % LAB HEMETOLOGY METHOD 12/16/2024 1:25 PM EDT [facility] Platelets 203 130 - 400 K/mcL LAB HEMETOLOGY METHOD 12/16/2024 1:25 PM EDT [facility] MPV 10.2 7.0 - 11.0 FL LAB HEMETOLOGY METHOD 12/16/2024 1:25 PM EDT [facility] NRBC 0.0 <1.0 % LAB HEMETOLOGY METHOD 12/16/2024 1:25 PM EDT [facility] NRBC Absolute 0.00 <0.10 K/mcL LAB HEMETOLOGY METHOD 12/16/2024 1:25 PM EDT [facility] Blood Venous blood specimen / Unknown Venipuncture / Unknown 12/16/2024 9:05 AM EDT 12/16/2024 11:37 AM EDT us Gris Rousseau MD LAB BLOOD ORDERABLES Fin al Result [facility] [address] [place] [address], documented in this encounter Visit Diagnoses Diagnosis Type 2 diabetes mellitus without complications (CMS/HCC V24, CMS/HCC V28) documented in this encounter Care Teams Pharmacist In Charge Owner Relationship Specialty Start Date End Date Zay Bhagat MD [address] [place] [id number] PCP - General 05/30/23 documented as of this encounter
== END 2025-01-01 12:25 | disposition home or self-care (01) ==
LOC: HO.HUSH 10:54
PROVIDERS: PCP Internal Medicine; Visit Provider Urology
DX: R33.9 Retention of urine, unspecified (principal)
CPT/HCPCS: 51700; 99214

== ENCOUNTER → 2025-01-01 10:54 | Outpatient (BNVA) | payer MEDICARE, SELFPAY | PROVIDERS: PCP Internal Medicine; Visit Provider Urology | DX: R33.9 Retention of urine, unspecified (principal) | CPT/HCPCS: 51700; 99212 ==

== ENCOUNTER 2025-01-16 21:42 | Inpatient (IN) | payer MEDICARE, SELFPAY ==
--- NOTE | ~2025-01-16 | XR_ITS ---
CLINICAL HISTORY: fever 1 view chest x-ray Comparison: CR - XR CHEST 2V - 11/17/24 10:46 EDT Findings: No consolidation or effusion. Normal size heart. No acute fracture. IMPRESSION: 1. No acute findings. This document has been electronically signed by: Dewey Sullivan MD on 01/16/2025 22:29:46
--- NOTE | 2025-01-16 21:51 | ECG_ITS ---
Test Reason : weakness Blood Pressure : */* mmHG Vent. Rate : 66 BPM Atrial Rate : 66 BPM P-R Int : 180 ms QRS Dur : 120 ms QT Int : 418 ms P-R-T Axes : 32 -6 55 degrees QTcB Int : 438 ms Sinus rhythm with marked sinus arrhythmia with occasional Premature ventricular complexes Non-specific intra-ventricular conduction delay Nonspecific T wave abnormality Abnormal ECG When compared with ECG of 17-Nov-2024 10:26, Premature ventricular complexes are now Present Premature supraventricular complexes are no longer Present ST no longer depressed in Inferior leads Non-specific change in ST segment in Lateral leads Nonspecific T wave abnormality no longer evident in Anterior leads Referred By: Aimee Hutton Electronically Signed By: ROBI WADE MD
[2025-01-16 21:57] VITALS: BP 132/70; BP 96/68; PULSE 56; PULSE 57; RESP 13; TEMP 36.8; O2SAT 94; O2SAT 98; BMI 23.0
[2025-01-16 22:16] LABS: Hematocrit 34.9 % (42.0-52.0); Hemoglobin 11.9 g/dl (14.0-18.0); Mean Corpuscular HGB Conc 34.1 g/dl (31.0-36.0); Mean Corpuscular Hemoglobin 29.4 pg (27.0-33.0); Mean Corpuscular Volume 86.2 fL (80.0-98.0); Mean Platelet Volume 9.3 fL (9.4-12.4); Platelet Count 158 X10*3/uL (160-400); Red Blood Count 4.05 X10*6/uL (4.60-5.80); Red Cell Distribution Width 14.6 % (11.0-16.0); White Blood Count 17.6 X10*3/uL (4.8-10.8)
--- NOTE | 2025-01-16 22:20 | ED.MALEGU ---
HPI - Male Genitourinary General Chief complaint: Urogenital-Male Stated complaint: sepsis alert, hypotension/ fever Time Seen by Provider: 01/16/25 21:49 Source: EMS Mode of arrival: EMS Limitations: other History of Present Illness ED Provider: Dr. Aimee Hutton HPI Narrative: patient comes [facility] the emergency room from a [facility] facility. According to EMS, the facility reported that yesterday patient began with fever and chills. A chest x-ray was done which was negative. Labs Showed a white blood cell count of 20.9. According to the staff, patient earlier became hypotensive in the 80s. Patient states that he feels lousy . Patient reports some shortness of breath and she has been which has been present for several weeks. Patient known to have a chronic Gross catheter. According to EMS, the staff reported the patient has had 2 doses of ceftriaxone within the last 24 hours Related Data Home Medications ?Medication ?Instructions ?Recorded ?Confirmed amlodipine 5 mg tablet 5 mg PO DAILY 08/14/24 11/17/24 atorvastatin 40 mg tablet 40 mg PO BEDTIME 08/14/24 11/17/24 clopidogrel 75 mg tablet 75 mg PO DAILY 08/14/24 11/17/24 insulin degludec 100 unit/mL (3 18 unit subcut DAILY 08/14/24 11/17/24 mL) subcutaneous pen (Tresiba FlexTouch U-100 insulin) metformin 1,000 mg tablet 1,000 mg PO BID 08/14/24 11/17/24 metoprolol succinate 50 mg 50 mg PO DAILY 08/14/24 11/17/24 tablet,extended release 24 hr mirtazapine 15 mg tablet 15 mg PO BEDTIME 08/14/24 11/17/24 trazodone 100 mg tablet 100 mg PO BEDTIME 08/14/24 11/17/24 acetaminophen 325 mg tablet 650 mg PO Q6H PRN Fever Or Pain 09/24/24 11/17/24 bisacodyl 10 mg rectal suppository 10 mg RI DAILY PRN if no BM for 8 09/24/24 11/17/24 hours after MOM insulin lispro 100 unit/mL 1 sliding scale dose subcut 09/24/24 11/17/24 subcutaneous solution (Humalog USEASDIRECTD U-100 Insulin) acetaminophen 325 mg tablet 650 mg PO TID 10/23/24 11/17/24 magnesium oxide 400 mg (241.3 mg 400 mg PO BID 10/23/24 11/17/24 magnesium) tablet risperidone 0.5 mg tablet 1.5 mg PO DAILY@0900 10/23/24 11/17/24 sodium chloride 1,000 mg soluble 1,000 mg PO BID 10/23/24 11/17/24 tablet dextrose 40 % oral gel (Glutose-45) 15 g PO Q15M PRN Hypoglycemia 11/09/24 11/17/24 glucagon 1 mg/0.2 mL subcutaneous 1 mg subcut Q20M PRN Hypoglycemia 11/09/24 11/17/24 auto-injector ipratropium 0.5 mg-albuterol 3 mg 3 ml inhalation QID 11/17/24 11/17/24 (2.5 mg base)/3 mL nebulization soln trazodone 50 mg tablet 50 mg PO BEDTIME 11/17/24 11/17/24 Previous Rx's ?Medication ?Instructions ?Recorded lancets 28 gauge (FreeStyle #100 ea 12/01/23 Lancets) pen needle, diabetic 32 gauge x #100 ea 12/01/23/ finasteride 5 mg tablet 5 mg PO DAILY #90 tabs 10/25/24 glipizide 10 mg tablet 10 mg PO DAILY #60 tabs 11/12/24 tamsulosin 0.4 mg capsule 0.4 mg PO BEDTIME 90 days #90 caps 01/01/25 Allergies Allergy/AdvReac Type Severity Reaction Status Date / Time meperidine [From DEMEROL] Allergy Unknown UNKNOWN Verified 01/16/25 22:03 Review of Systems Review of Systems: Constitutional : No Weight loss, complaining of fever, chills, generalized malaise ENT/Mouth : No Hearing loss, No Ear Pain, No Nasal Congestion, No Sinus Pain, No Hoarseness, No sore throat, No Rhinorrhea, No Swallowing Difficulty Eyes: No Eye Pain, No Swelling, No Redness, No Foreign Body, No Discharge, No Vision Changes Cardiovascular : complaining of chest pain and shortness of breath constantly for several months Respiratory : patient reports mild occasional cough Gastrointestinal : No Nausea, No Vomiting, No Diarrhea, No Constipation, No abdominal Pain, No Hematochezia, No Melena Genitourinary : no irregular bleeding, No Dysuria, No Urinary Frequency, No Hematuria, No Urinary Incontinence, No Urgency, No Flank Pain, No Urinary Flow Changes, No Hesitancy Musculoskeletal : No joint pain, No Myalgias, No Joint Swelling Skin : No Skin Lesions, No rash Neuro : No Weakness, No Numbness, No Paresthesias, No Loss of Consciousness, No Dizziness, No Headache Psych : No Anxiety/Panic, No Depression, No SI/HI/AH/VH, No Social Issues, Heme/Lymph: No Bruising, No Bleeding,No Lymphadenopathy Endocrine : No Polyuria, No Polydipsia, No Temperature Intolerance [facility] Past Medical History Medical History Pancreatic mass Acute exacerbation of CHF (congestive heart failure) Influenza A Lethargy BPH loc w urin obs/LUTS Severe recurrent major depressive disorder with psychosis CHF (congestive heart failure) Hemorrhagic stroke Cholelithiasis Alcohol use disorder HTN (hypertension) Surgical History No pertinent past surgical history Social History Social History Household Members: Other Household Members Other:: [facility]. [facility] Do you presently have visiting nurse or other home services: No Alcohol intake: current Alcohol intake frequency: 0-2 drinks per day Alcohol type: hard liquor Comment: sitter at bedside Patient Tobacco Use Status: Former Tobacco user Smoked in Last 30 Days: No Second Hand Smoke Exposure: No Use of substances other than those prescribed or required for medical reasons: No Advance Directives: Yes Advance Directives on File: Yes Advance Directives Date on File: 04/12/23 Do you have a plan to hurt others: No Plan service: No Current occupational status: disabled Physical Exam Vital Signs: Vital Signs: Last Vital Signs Temp 98.2 F 01/16/25 21:57 Pulse 56 01/16/25 21:57 Resp 13 01/16/25 21:57 BP 132/70 01/16/25 21:57 Pulse Ox 98 01/16/25 21:57 O2 Del Method Room Air 01/16/25 21:57 BMI result Body Mass Index 23.0 Const: Other: Appearance: Alert. Oriented X3. seems uncomfortable Eyes: Pupils equal, round and reactive to light. ENT: Pharynx normal. Neck: Normal inspection. Neck supple. No lymph nodes noted. No crepitus CVS: Normal heart rate and rhythm. Pulses normal. Normal S1 and S2 Respiratory: No respiratory distress. Breath sounds normal. No Wheezing. No rales Abdomen: Soft and nontender. No rigidity. No distention. Skin: Skin warm and dry. Normal skin color. Normal skin turgor. Extremities: No lower extremity edema. No Lacerations. No Rash Neuro: Oriented X 3. No motor deficit. No sensory deficit. Moving all extremities. No slurred speech. CN 2 through 12 grossly intact Psych: calm, cooperative, normal affect Course Course Course Narrative: on arrival, patient's blood pressure is 132/70, heart rate 56, temperature 98.2 degrees, oxygen saturation 98% on room air. At this time of arrival, sepsis is not suspected. Patient is empirically being treated with IV fluids and antibiotics. All of patient's labs and imaging pending Medications Administered Discontinued Medications Generic Name Dose Route Start Last Admin Trade Name Freq PRN Reason Stop Dose Admin Ceftriaxone Sodium 1 gm 01/16/25 22:25 01/16/25 22:37 Ceftriaxone Sodium 1 Gm Vial IVPUSH 01/16/25 22:26 1 gm ONCE ONE Administration Sodium Chloride 1,000 mls @ 999 mls/hr 01/16/25 22:25 01/16/25 22:36 Ns IVCONT 01/16/25 23:25 999 mls/hr .Q1H1M ONE Administration Medical Decision Making Medical Decision Making [facility] Narrative: My interpretation of labs: Patient's white blood cell count 17.6. , creatinine 1.48, lactic acid 3.4, normal LFTs, urinalysis positive for UTI. serology negative for influenza RSV and COVID X-rays negative for infiltrates normal vitals. No hypotension, no fever . Sepsis is not suspected patient already received IV fluids, antibiotics. I discussed the patient with Dr. Shah , patient being admitted Differential Diagnosis Differential Diagnoses: The differential diagnosis associated with the presentation includes ( UTI, URI, viral syndrome) Admission/Observation Consideration of admission/observation: Escalation of care including admission/observation considered Consult Healthcare Provider Management of the patient was discussed with: Hospitalist Lab Data [facility] Lab Attestation statement: I reviewed the patient's lab results. 01/16/25 22:05 01/16/25 22:05 Labs: Lab Results 01/16/25 01/16/25 01/16/25 Range/Units 22:05 22:06 22:16 WBC 17.6 H (4.8-10.8) X10*3/uL RBC 4.05 L (4.60-5.80) X10*6/uL Hgb 11.9 L (14.0-18.0) g/dl Hct 34.9 L (42.0-52.0) % MCV 86.2 (80.0-98.0) fL MCH 29.4 (27.0-33.0) pg MCHC 34.1 (31.0-36.0) g/dl RDW 14.6 (11.0-16.0) % Plt Count 158 L D (160-400) X10*3/uL MPV 9.3 L (9.4-12.4) fL Immature Gran % (Auto) Cancelled Neut % (Auto) Cancelled Lymph % (Auto) Cancelled [place] % (Auto) Cancelled Eos % (Auto) Cancelled Baso % (Auto) Cancelled Lymph # (Auto) Cancelled [place] # (Auto) Cancelled Eos # (Auto) Cancelled Baso # (Auto) Cancelled Abs Immat Gran (auto) Cancelled Absolute Neuts (auto) Cancelled Absolute Nucleated RBC 0.000 (0.0-0.012) X10*3/uL Nucleated RBC % (auto) 0.0 (0.0-0.2) /100WBC Neutrophils % (Manual) 82 H (45-73) % Band Neutrophils % 8 H (3-5) % Lymphocytes % (Manual) 5 L (20-40) % Atypical Lymphs % (Man) 2 (0-6) % Monocytes % (Manual) 2 (2-11) % Promyelocytes % 1 % Abs Neuts (Manual) 15.8 H (2.0-8.3) X10*3/uL Lymphocytes # (Manual) 0.9 L (1.2-4.9) X10*3/uL Atyp Lymphs # (Manual) 0.4 x10*3/uL Monocytes # (Manual) 0.4 (0.1-1.2) X10*3/uL Promyelocytes # 0.2 X10*3/uL Smudge Cells PRESENT Toxic Vacuolation PRESENT Platelet Estimate NORMAL (NORMAL) Plt Morphology Comment NORMAL RBC Morphology NORMAL Smear Tech's Comments MANUAL DIFF Sodium 145 (135-145) mmol/L Potassium 4.1 D (3.3-5.1) mmol/L Chloride 110 H (96-108) mmol/L Carbon Dioxide 24 (22-29) mmol/L Anion Gap 15 (12-20) BUN 39 H (9-16) mg/dL Creatinine 1.48 H (0.5-1.4) mg/dL Estim Creat Clear Calc 44.2 Estimated GFR 46 Random Glucose 133 H (60-115) mg/dL Lactic Acid 3.4 H* (0.5-2.0) mmol/L Calcium 9.5 D (8.4-10.2) mg/dL Magnesium 2.0 (1.6-2.6) mg/dL Total Bilirubin 0.2 (0.0-1.0) mg/dL Direct Bilirubin < 0.2 (0.0-0.5) mg/dL AST 18 (5-37) U/L ALT 10 (0-40) U/L Alkaline Phosphatase 64 (39-117) U/L Troponin I High Sens 16.0 (<3.5-35.0) ng/L Total Protein 6.7 (6.5-8.0) g/dL Albumin 3.6 (3.5-5.0) g/dL Urine Color Yellow Urine Appearance Cloudy Urine pH 5.0 (5.0-9.0) Ur Specific [place] 1.020 (1.005-1.025) Urine Protein 30 (1+) H (Neg-Trace) mg/dL Urine Glucose (UA) Negative (Negative) mg/dL Urine Ketones Trace (Negative) mg/dL Urine Blood Small (1+) H (Negative) Urine Nitrite Positive H (Negative) Ur Leukocyte Esterase Large (3+) H (Negative) Urine RBC 3-5 H (0-2) /HPF Urine WBC >50 H (0-5) /HPF Ur Squamous Epith Cells 11-20 (0-2) /HPF Urine Bacteria None Seen (None Seen) Hyaline Casts >20 (0-2) /LPF Urine Yeast Present Influenza Type A (PCR) NEGATIVE (Negative) Influenza Type B (PCR) NEGATIVE (Negative) RSV RNA Qual (PCR) NEGATIVE (Negative) SARS-CoV-2 RNA (RT-PCR) NEGATIVE (Negative) Critical Care Time Critical Care Time Critical Care Time: Yes Total Critical Care Time: 60 Attestation: I have personally provided critical care time. Time includes review of lab data, radiology results, discussion with consultants, and monitoring for potential decompensation. Intervention performed as documented. Discharge Plan Discharge Clinical Impression: Acute UTI, KRYSTEN (acute kidney injury) Patient Disposition: Admitted As Inpatient Prescriptions: No Action (DME) pen needle, diabetic 32 gauge x 1/4 needle Qty: 100 0RF Rx Instructions: use with Lantus Solostar Pen once daily (DME) lancets [FreeStyle Lancets] 28 gauge misc Qty: 100 0RF Rx Instructions: Test four times a day or as directed. ipratropium-albuterol 0.5 mg-3 mg(2.5 mg base)/3 mL Solution For Nebulization 3 ml INHALATION QID trazodone 50 mg Tablet 50 mg PO BEDTIME atorvastatin 40 mg tablet 40 mg PO BEDTIME metoprolol succinate 50 mg tablet extended release 24 hr 50 mg PO DAILY clopidogrel 75 mg tablet 75 mg PO DAILY amlodipine 5 mg tablet 5 mg PO DAILY trazodone 100 mg tablet 100 mg PO BEDTIME metformin 1,000 mg tablet 1,000 mg PO BID mirtazapine 15 mg tablet 15 mg PO BEDTIME insulin degludec [Tresiba FlexTouch U-100] 100 unit/mL (3 mL) insulin pen 18 unit subcut DAILY acetaminophen 325 mg Tablet 650 mg PO Q6H PRN (Reason: Fever Or Pain) Rx Instructions: DNE 3 G IN 24 HRS bisacodyl 10 mg Suppository 10 mg RI DAILY PRN (Reason: if no BM for 8 hours after MOM) insulin lispro [Humalog U-100 Insulin] 100 unit/mL Solution 1 sliding scale dose SUBCUT USEASDIRECTD Protocol: Insulin Correction Scale Less than or equal to 110 ---- Give (units): 0 111 to 150 Give (units): 0 151 to 200 Give (units): 0 201 to 250 Give (units): 4 251 to 300 Give (units): 6 301 to 350 Give (units): 8 Greater than 350 Give (units): 10 Call MD if Blood Glucose > : 400 acetaminophen 325 mg Tablet 650 mg PO TID Rx Instructions: DNE 3 G IN 24 HRS risperidone 0.5 mg tablet 1.5 mg PO DAILY@0900 sodium chloride 1,000 mg Tablet,Soluble 1,000 mg PO BID magnesium oxide 400 mg (241.3 mg magnesium) tablet 400 mg PO BID finasteride 5 mg Tablet 5 mg PO DAILY Qty: 90 0RF dextrose [Glutose-45] 40 % Gel 15 g PO Q15M PRN (Reason: Hypoglycemia) Rx Instructions: until symptoms of low blood sugar are controlled glucagon 1 mg/0.2 mL Auto-Injector 1 mg SUBCUT Q20M PRN (Reason: Hypoglycemia) glipizide 10 mg Tablet 10 mg PO DAILY Qty: 60 0RF tamsulosin 0.4 mg capsule 0.4 mg PO BEDTIME 90 Days Qty: 90 1RF Print Language: Danish
[2025-01-16 22:32] LABS: Alanine Aminotransferase 10 U/L (0-40); Albumin Level 3.6 g/dL (3.5-5.0); Alkaline Phosphatase 64 U/L (39-117); Anion Gap 15 (12-20); Aspartate Amino Transferase 18 U/L (5-37); Bilirubin Direct < 0.2 mg/dL (0.0-0.5); Bilirubin Total 0.2 mg/dL (0.0-1.0); Blood Urea Nitrogen 39 mg/dL (9-16); Calcium 9.5 mg/dL (8.4-10.2); Carbon Dioxide 24 mmol/L (22-29); Chloride 110 mmol/L (96-108); Creatinine Clr Calc Pharmacy 44.2; Estimated Glomerular Filt Rate 46; Glucose Random 133 mg/dL (60-115); Potassium 4.1 mmol/L (3.3-5.1); Sodium 145 mmol/L (135-145); Total Protein 6.7 g/dL (6.5-8.0)
[2025-01-16 22:32] LABS: Appearance Urine Cloudy; Color Urine Yellow; Glucose Urine UA Negative (Negative); Leukocyte Esterase Urine Large (3+) (Negative); Nitrite Urine Positive (Negative); UMIC TRIGGER UACC YES; Urine Blood Small (1+) (Negative); Urine Ketones Trace mg/dL (Negative); Urine Protein 30 (1+) mg/dL (Neg-Trace)
[2025-01-16] MEDS: 0.9 % Sodium Chloride 1,000 ML 999 ML IVCONT (22:36)
[2025-01-16] MEDS: cefTRIAXone sodium 1 GM VIAL IVPUSH (22:37)
[2025-01-16 22:40] LABS: SLIDE REVIEW MANUAL DIFF
[2025-01-16 22:44] LABS: Lactic Acid 3.4 mmol/L (0.5-2.0)
[2025-01-16 22:45] LABS: Atypical Lymph Absolute Manual 0.4 x10*3/uL; Atypical Lymphs Percent Manual 2 % (0-6); Band Neutrophils Percent 8 % (3-5); Lymphocytes Absolute Manual 0.9 X10*3/uL (1.2-4.9); Lymphocytes Percent Manual 5 % (20-40); Monocytes Absolute Manual 0.4 X10*3/uL (0.1-1.2); Monocytes Percent Manual 2 % (2-11); Neutrophils Absolute Manual 15.8 X10*3/uL (2.0-8.3); Neutrophils Percent Manual 82 % (45-73); Promyelocytes Absolute 0.2 X10*3/uL; Promyelocytes Percent 1 %
[2025-01-16 22:49] LABS: WBC Urine >50 /HPF (0-5)
[2025-01-16 22:50] LABS: Bacteria Urine None Seen (None Seen); Hyaline Casts Urine >20 /LPF (0-2); UACC Culture Trigger YES
[2025-01-16 22:53] LABS: Influenza A PCR NEGATIVE (Negative); Influenza B PCR NEGATIVE (Negative); Resp Syncy Virus RNA Qual PCR NEGATIVE (Negative); SARS COV2 PCR INHOUSE NEGATIVE (Negative)
[2025-01-16 22:55] LABS: Platelet Estimate NORMAL (NORMAL); Platelet Morphology Comment NORMAL; RBC Morphology NORMAL
[2025-01-16 22:56] LABS: Smudge Cells PRESENT; Toxic Vacuolation PRESENT
--- NOTE | 2025-01-16 23:51 | P.HPHOSP_ITS ---
History of Present Illness Date of Service: 01/16/25 Chief Complaint: AMS This is a 74-year-old male with pertinent history of congestive heart failure with preserved ejection fraction, hypertension, insulin-dependent diabetes mellitus, history of hemorrhagic CVA with gait instability, BPH with chronic indwelling Gross, remote alcohol use disorder, cognitive impairment who was brought to the emergency department from [facility] for evaluation of fevers and chills. Patient is a poor historian. States he has was having fevers and chills and he thinks he has a urinary tract infection. Patient has a chronic Gross and noticed change in color and odor of urine. X-ray was done at [facility] which was negative. CBC revealed elevated white cell count and patient was given 1 dose of ceftriaxone. He denies chest pain, palpitations, shortness of breath, abdominal pain, nausea or vomiting. In the emergency department, patient was found to be septic and given IV ceftriaxone. Also resuscitated with IV crystalloids. Leukocytosis 17.6, creatinine 1.48 and lactic acid 3.4 Review of Systems 2 Constitutional: Constitutional: Reports chills, Reports fatigue, Reports fever(s), Reports malaise and Reports weakness Cardiovascular: Cardiovascular: Reports no additional cardiovascular complaints Respiratory: Respiratory: Reports no additional respiratory complaints Gastrointestinal: Gastrointestinal: Reports no additional gastrointestinal complaints Neurologic: Reports weakness Endocrine: Endocrine: Reports fatigue [facility] Medical History Pancreatic mass Acute exacerbation of CHF (congestive heart failure) Influenza A Lethargy BPH loc w urin obs/LUTS Severe recurrent major depressive disorder with psychosis CHF (congestive heart failure) Hemorrhagic stroke Cholelithiasis Alcohol use disorder HTN (hypertension) Pertinent family history: No family history of early CAD Surgical History No pertinent past surgical history Social History Household Members: Other Household Members Other:: [facility]. [facility] Do you presently have visiting nurse or other home services: No Alcohol intake: current Alcohol intake frequency: 0-2 drinks per day Alcohol type: hard liquor Comment: sitter at bedside Patient Tobacco Use Status: Former Tobacco user Smoked in Last 30 Days: No Second Hand Smoke Exposure: No Use of substances other than those prescribed or required for medical reasons: No Advance Directives: Yes Advance Directives on File: Yes Advance Directives Date on File: 04/12/23 Do you have a plan to hurt others: No Plan service: No Current occupational status: disabled Meds Allergies Allergy/AdvReac Type Severity Reaction Status Date / Time meperidine [From DEMEROL] Allergy Unknown UNKNOWN Verified 01/16/25 22:03 Home Medications ?Medication ?Instructions ?Recorded ?Confirmed ?Last Taken ?Type amlodipine 5 mg tablet 5 mg PO DAILY 08/14/24 11/17/24 08/13/24 History atorvastatin 40 mg tablet 40 mg PO BEDTIME 08/14/24 11/17/24 08/13/24 History clopidogrel 75 mg tablet 75 mg PO DAILY 08/14/24 11/17/24 08/13/24 History insulin degludec 100 unit/mL (3 18 unit subcut DAILY 08/14/24 11/17/24 08/13/24 History mL) subcutaneous pen (Tresiba FlexTouch U-100 insulin) metformin 1,000 mg tablet 1,000 mg PO BID 08/14/24 11/17/24 08/13/24 History metoprolol succinate 50 mg 50 mg PO DAILY 08/14/24 11/17/24 08/13/24 History tablet,extended release 24 hr mirtazapine 15 mg tablet 15 mg PO BEDTIME 08/14/24 11/17/24 08/13/24 History trazodone 100 mg tablet 100 mg PO BEDTIME 08/14/24 11/17/24 08/13/24 History acetaminophen 325 mg tablet 650 mg PO Q6H PRN Fever Or Pain 09/24/24 11/17/24 Unknown History bisacodyl 10 mg rectal suppository 10 mg [place] DAILY PRN if no BM for 8 09/24/24 11/17/24 Unknown History hours after MOM insulin lispro 100 unit/mL 1 sliding scale dose subcut 09/24/24 11/17/24 Unknown History subcutaneous solution (Humalog USEASDIRECTD U-100 Insulin) acetaminophen 325 mg tablet 650 mg PO TID 10/23/24 11/17/24 Unknown History magnesium oxide 400 mg (241.3 mg 400 mg PO BID 10/23/24 11/17/24 Unknown History magnesium) tablet risperidone 0.5 mg tablet 1.5 mg PO DAILY@0900 10/23/24 11/17/24 Unknown History sodium chloride 1,000 mg soluble 1,000 mg PO BID 10/23/24 11/17/24 Unknown History tablet dextrose 40 % oral gel (Glutose-45) 15 g PO Q15M PRN Hypoglycemia 11/09/24 11/17/24 Unknown History glucagon 1 mg/0.2 mL subcutaneous 1 mg subcut Q20M PRN Hypoglycemia 11/09/24 11/17/24 Unknown History auto-injector ipratropium 0.5 mg-albuterol 3 mg 3 ml inhalation QID 11/17/24 11/17/24 Unknown History (2.5 mg base)/3 mL nebulization soln trazodone 50 mg tablet 50 mg PO BEDTIME 11/17/24 11/17/24 Unknown History Physical Exam 2 Vital Signs and Narrative: Vital Signs: Last Vital Signs Temp 98.2 F 01/16/25 21:57 Pulse 56 01/16/25 21:57 Resp 13 01/16/25 21:57 BP 132/70 01/16/25 21:57 Pulse Ox 98 01/16/25 21:57 O2 Del Method Room Air 01/16/25 21:57 BMI result Body Mass Index 23.0 Elderly male lying in bed in no distress Neck supple, no JVD Regular rate and rhythm, S1-S2 heard Regular breath sounds bilaterally, no wheezing or crackles appreciated Abdomen soft nontender, no guarding, no rigidity Patient is awake, alert and oriented x2 ; no focal motor deficit Psych: Normal mood No pedal edema Results Labs 01/16/25 22:05 01/16/25 22:05 Labs: Laboratory Results - last 24 hr 01/16/25 01/16/25 01/16/25 22:05 22:06 22:16 MCV 86.2 MCH 29.4 MCHC 34.1 RDW 14.6 Plt Count 158 L D MPV 9.3 L Immature Gran % (Auto) Cancelled Neut % (Auto) Cancelled Lymph % (Auto) Cancelled [place] % (Auto) Cancelled Eos % (Auto) Cancelled Baso % (Auto) Cancelled Lymph # (Auto) Cancelled [place] # (Auto) Cancelled Eos # (Auto) Cancelled Baso # (Auto) Cancelled Abs Immat Gran (auto) Cancelled Absolute Neuts (auto) Cancelled Absolute Nucleated RBC 0.000 Nucleated RBC % (auto) 0.0 Neutrophils % (Manual) 82 H Band Neutrophils % 8 H Lymphocytes % (Manual) 5 L Atypical Lymphs % (Man) 2 Monocytes % (Manual) 2 Promyelocytes % 1 Abs Neuts (Manual) 15.8 H Lymphocytes # (Manual) 0.9 L Atyp Lymphs # (Manual) 0.4 Monocytes # (Manual) 0.4 Promyelocytes # 0.2 Smudge Cells PRESENT Toxic Vacuolation PRESENT Platelet Estimate NORMAL Plt Morphology Comment NORMAL RBC Morphology NORMAL Smear Tech's Comments MANUAL DIFF Anion Gap 15 Estim Creat Clear Calc 44.2 Estimated GFR 46 Random Glucose 133 H Lactic Acid 3.4 H* Calcium 9.5 D Magnesium 2.0 Total Bilirubin 0.2 Direct Bilirubin < 0.2 AST 18 ALT 10 Alkaline Phosphatase 64 Total Protein 6.7 Albumin 3.6 Urine Color Yellow Urine Appearance Cloudy Urine pH 5.0 Ur Specific [place] 1.020 Urine Protein 30 (1+) H Urine Glucose (UA) Negative Urine Ketones Trace Urine Blood Small (1+) H Urine Nitrite Positive H Ur Leukocyte Esterase Large (3+) H Urine RBC 3-5 H Urine WBC >50 H Ur Squamous Epith Cells 11-20 Urine Bacteria None Seen Hyaline Casts >20 Urine Yeast Present Influenza Type A (PCR) NEGATIVE Influenza Type B (PCR) NEGATIVE RSV RNA Qual (PCR) NEGATIVE SARS-CoV-2 RNA (RT-PCR) NEGATIVE Assessment and Plan (1) Acute UTI: Status: Acute Plan This is a 74-year-old male with pertinent history of congestive heart failure with preserved ejection fraction, hypertension, insulin-dependent diabetes mellitus, history of hemorrhagic CVA with gait instability, BPH with chronic indwelling Gross, remote alcohol use disorder, cognitive impairment who was brought to the emergency department from [facility] for evaluation of fevers and chills. #. Severe sepsis due to acute UTI: Will admit patient with IV ceftriaxone. Resuscitated with IV crystalloids. Lactic acid and blood culture obtained. Urine culture pending #. Acute kidney injury stage I: Monitor creatinine urine output with crystalloid resuscitation. Avoid nephrotoxins. #. Insulin-dependent diabetes mellitus: Initiating Accu-Cheks with sliding scale insulin. Reduced home basal insulin once med rec is completed #. Acute lactic acidosis due to sepsis #. History of CVA: On Plavix and statin #. BPH: On chronic Gross, finasteride and tamsulosin #. Mood disorder: Continue risperidone, mirtazapine and trazodone #. Hypertension: On amlodipine #. Diastolic heart failure: Euvolemic. Not on chronic diuretics Med rec pending DVT prophylaxis: Lovenox Full code. Admit as inpatient and will require two night minimum hospital stay for IV antibiotics (as above), which is not possible in a lesser acute setting. Quality Stroke Does the patient have a stroke diagnosis?: No VTE Prior VTE?: No VTE Risk Level:: Medical - moderate - high VTE Device Contraindication: Treatment Not Indicated VTE Drug Contraindication: N/A - Med Ordered
[2025-01-17] VITALS (9 sets, daily range): BP systolic 111–144; BP diastolic 61–93; PULSE 58–93; RESP 12–18; TEMP 36.4–39.6; O2SAT 93–97; BMI 25.6
[2025-01-17 00:14] LABS: Reflex Lactate? Lactic Acid Added
[2025-01-17] MEDS: 0.9 % Sodium Chloride Flush 3 ML SYRINGE IVFLUSH ×2 (01:30→22:23)
[2025-01-17] MEDS: Enoxaparin Sodium 40 MG/0.4 ML SYRINGE SUBCUT (01:30)
--- NOTE | 2025-01-17 01:35 | PC.NURSE ---
Pt febrile, provider notified. Tylenol administered as per nov for fevr.
[2025-01-17] MEDS: Acetaminophen 325 MG TABLET 650 MG PO ×2 (01:38→08:51)
[2025-01-17 02:31] LABS: ~Lactic Acid-LAB USE ONLY 4.2 mmol/L (0.5-2.0)
[2025-01-17] MEDS: Lactated Ringers 1,000 ML 999 ML IV (02:44)
[2025-01-17 03:47] LABS: Reflex Lactate? 2 Y
[2025-01-17 05:57] LABS: MANUAL DIFF FLAG NO
[2025-01-17 06:01] LABS: Basophils Percent Auto 0.2 % (0-2); Eosinophils Percent Auto 0.1 % (0-4); Hematocrit 32.1 % (42.0-52.0); Hemoglobin 10.9 g/dl (14.0-18.0); Imm Gran Abs Auto 0.12 X10*3/uL (0.00-0.03); Imm Gran Pct Auto 0.8 % (0.0-0.4); Lymphocytes Absolute Auto 1.6 X10*3/uL (1.2-4.9); Lymphocytes Percent Auto 11.3 % (20-40); Mean Corpuscular Hemoglobin 29.1 pg (27.0-33.0); Mean Corpuscular Volume 85.6 fL (80.0-98.0); Mean Platelet Volume 9.5 fL (9.4-12.4); Monocytes Absolute Auto 1.5 X10*3/uL (0.1-1.2); Monocytes Percent Auto 10.4 % (2-11); Neutrophils Absolute Auto 11.1 x10*3/uL (2.0-8.3); Neutrophils Percent Auto 77.2 % (45-73); Platelet Count 142 X10*3/uL (160-400); Red Blood Count 3.75 X10*6/uL (4.60-5.80); Red Cell Distribution Width 14.4 % (11.0-16.0); White Blood Count 14.4 X10*3/uL (4.8-10.8)
[2025-01-17 06:17] LABS: Anion Gap 13 (12-20); Blood Urea Nitrogen 33 mg/dL (9-16); Calcium 8.8 mg/dL (8.4-10.2); Carbon Dioxide 22 mmol/L (22-29); Chloride 110 mmol/L (96-108); Creatinine Clr Calc Pharmacy 67.5; Estimated Glomerular Filt Rate > 60; Glucose Random 124 mg/dL (60-115); Potassium 3.7 mmol/L (3.3-5.1); Sodium 141 mmol/L (135-145)
[2025-01-17 06:18] LABS: ~Lactic Acid-LAB USE ONLY 1.8 mmol/L (0.5-2.0)
[2025-01-17 08:02] LABS: Glucose, Whole Blood 121 mg/dL (60-115)
--- NOTE | 2025-01-17 09:14 | HO.PM.IMPN ---
Subjective Subjective Date of Service: 01/17/25 Interval History: f/u on sepsis, uti, chronic burgos clinically better Physical Exam Vital Signs: Vital Signs: Last Vital Signs Temp 97.5 F 01/17/25 07:54 Pulse 67 01/17/25 07:54 Resp 18 01/17/25 07:54 BP 139/75 01/17/25 07:54 Pulse Ox 95 01/17/25 07:54 O2 Del Method Room Air 01/17/25 07:54 BMI result Body Mass Index 25.6 Const: Other: General: AO X 3, no acute distress Resp: CTA bilateral CVS: S1,S2,RRR GI: +BS, NT, no distention Skin: No rash Neuro: motor grossly intact Psych: appropriate affect Objective Data Active Medications Acetaminophen (Acetaminophen 325 Mg Tablet) 650 mg PO Q6H PRN PRN Reason: Pain, Mild 1-3,fever,headache Last Admin: 01/17/25 08:51 Dose: 650 mg Documented By: GIANNI Calcium Carbonate (Calcium Carbonate 750 Mg Tab.Chew) 750 mg PO Q4H PRN PRN Reason: Heartburn Ceftriaxone Sodium (Ceftriaxone Sodium 1 Gm Vial) 1 gm IVPUSH Q24H HERACLIO Dextrose (Dextrose 50 % 25 Gm/50 Ml Syringe) 25 gm IVPUSH Q15M PRN; Protocol PRN Reason: per Hypoglycemia Standing Ord. Enoxaparin Sodium (Enoxaparin Sodium 40 Mg/0.4 Ml Syringe) 40 mg SUBCUT Q24H HERACLIO Last Admin: 01/17/25 01:30 Dose: 40 mg Documented By: THU Glucose (Glucose Gel 15 Gm Gel..Gram.) 15 gm PO Q15M PRN; Protocol PRN Reason: per Hypoglycemia Standing Ord. Insulin Human Lispro (Insulin Lispro 100 Unit/Ml 3 Ml Vial) 0 unit SUBCUT QIDACHS [facility]; Protocol Last Admin: 01/17/25 07:59 Dose: Not Given Documented By: GIANNI Non-Admin Reason: poc oor Magnesium Hydroxide (Milk Of Magnesia 30 Ml Oral.Susp) 30 ml PO DAILY PRN PRN Reason: Constipation Melatonin (Melatonin 3 Mg Tablet) 6 mg PO BEDTIME PRN PRN Reason: Insomnia Ondansetron HCl (Ondansetron Hcl 4 Mg/2 Ml Vial) 4 mg IVPUSH Q8H PRN PRN Reason: Nausea and Vomiting Sodium Chloride (0.9 % Sodium Chloride Flush 3 Ml Syringe) 3 ml IVFLUSH QSHIFT HERACLIO Last Admin: 01/17/25 07:06 Dose: Not Given Documented By: GIANNI Non-Admin Reason: Previously Administered Labs 01/17/25 05:49 01/17/25 05:49 Labs: Laboratory Results - last 24 hr 01/16/25 01/16/25 01/16/25 22:05 22:06 22:16 MCV 86.2 MCH 29.4 MCHC 34.1 RDW 14.6 Plt Count 158 L D MPV 9.3 L Immature Gran % (Auto) Cancelled Neut % (Auto) Cancelled Lymph % (Auto) Cancelled [place] % (Auto) Cancelled Eos % (Auto) Cancelled Baso % (Auto) Cancelled Lymph # (Auto) Cancelled [place] # (Auto) Cancelled Eos # (Auto) Cancelled Baso # (Auto) Cancelled Abs Immat Gran (auto) Cancelled Absolute Neuts (auto) Cancelled Absolute Nucleated RBC 0.000 Nucleated RBC % (auto) 0.0 Neutrophils % (Manual) 82 H Band Neutrophils % 8 H Lymphocytes % (Manual) 5 L Atypical Lymphs % (Man) 2 Monocytes % (Manual) 2 Promyelocytes % 1 Abs Neuts (Manual) 15.8 H Lymphocytes # (Manual) 0.9 L Atyp Lymphs # (Manual) 0.4 Monocytes # (Manual) 0.4 Promyelocytes # 0.2 Smudge Cells PRESENT Toxic Vacuolation PRESENT Platelet Estimate NORMAL Plt Morphology Comment NORMAL RBC Morphology NORMAL Smear Tech's Comments MANUAL DIFF Anion Gap 15 Estim Creat Clear Calc 44.2 Estimated GFR 46 POC Glucose Random Glucose 133 H Lactic Acid 3.4 H* Lactic Acid F/U @ 2Hr Lactic Acid F/U @ 4Hr Calcium 9.5 D Magnesium 2.0 Total Bilirubin 0.2 Direct Bilirubin < 0.2 AST 18 ALT 10 Alkaline Phosphatase 64 Total Protein 6.7 Albumin 3.6 Urine Color Yellow Urine Appearance Cloudy Urine pH 5.0 Ur Specific [place] 1.020 Urine Protein 30 (1+) H Urine Glucose (UA) Negative Urine Ketones Trace Urine Blood Small (1+) H Urine Nitrite Positive H Ur Leukocyte Esterase Large (3+) H Urine RBC 3-5 H Urine WBC >50 H Ur Squamous Epith Cells 11-20 Urine Bacteria None Seen Hyaline Casts >20 Urine Yeast Present Influenza Type A (PCR) NEGATIVE Influenza Type B (PCR) NEGATIVE RSV RNA Qual (PCR) NEGATIVE SARS-CoV-2 RNA (RT-PCR) NEGATIVE 01/17/25 01/17/25 01/17/25 01:44 05:49 07:54 MCV 85.6 MCH 29.1 MCHC 34.0 RDW 14.4 Plt Count 142 L MPV 9.5 Immature Gran % (Auto) 0.8 H Neut % (Auto) 77.2 H Lymph % (Auto) 11.3 L [place] % (Auto) 10.4 Eos % (Auto) 0.1 Baso % (Auto) 0.2 Lymph # (Auto) 1.6 [place] # (Auto) 1.5 H Eos # (Auto) 0.0 Baso # (Auto) 0.0 Abs Immat Gran (auto) 0.12 H Absolute Neuts (auto) 11.1 H Absolute Nucleated RBC 0.000 Nucleated RBC % (auto) 0.0 Neutrophils % (Manual) Band Neutrophils % Lymphocytes % (Manual) Atypical Lymphs % (Man) Monocytes % (Manual) Promyelocytes % Abs Neuts (Manual) Lymphocytes # (Manual) Atyp Lymphs # (Manual) Monocytes # (Manual) Promyelocytes # Smudge Cells Toxic Vacuolation Platelet Estimate Plt Morphology Comment RBC Morphology Smear Tech's Comments Anion Gap 13 Estim Creat Clear Calc 67.5 Estimated GFR > 60 POC Glucose 121 H Random Glucose 124 H Lactic Acid Lactic Acid F/U @ 2Hr 4.2 H* Lactic Acid F/U @ 4Hr 1.8 Calcium 8.8 D Magnesium Total Bilirubin Direct Bilirubin AST ALT Alkaline Phosphatase Total Protein Albumin Urine Color Urine Appearance Urine pH Ur Specific [place] Urine Protein Urine Glucose (UA) Urine Ketones Urine Blood Urine Nitrite Ur Leukocyte Esterase Urine RBC Urine WBC Ur Squamous Epith Cells Urine Bacteria Hyaline Casts Urine Yeast Influenza Type A (PCR) Influenza Type B (PCR) RSV RNA Qual (PCR) SARS-CoV-2 RNA (RT-PCR) Assessment and Plan (1) Acute UTI: Status: Acute (2) Urinary retention with incomplete bladder emptying: Status: Acute Plan 74-year-old male with pertinent history of congestive heart failure with preserved ejection fraction, hypertension, insulin-dependent diabetes mellitus, history of hemorrhagic CVA with gait instability, BPH with chronic indwelling Burgos, remote alcohol use disorder, cognitive impairment who was brought to the emergency department from SNF for evaluation of fevers and chills. Severe sepsis due to acute UTI d/t chronic Burgos catheter, improving continue ceftriaxone, follow cultures and wbc Acute kidney injury stage, pre renal azotemia, resolved with IVF Insulin-dependent diabetes mellitus, on glipizide and ssi at homee continue SSI, diabetic diet Acute lactic acidosis due to sepsis, trending down History of CVA On Plavix and statin BPH: On chronic Burgos, finasteride and tamsulosin Mood disorder resume after med recrisperidone, mirtazapine and trazodone Hypertension: On amlodipine Chronic Diastolic heart failure Euvolemic. Not on chronic diuretics Med rec pending DVT prophylaxis: Lovenox Full code. Total time managing care of this patient today: 35 minutes. Quality Stroke Does the patient have a stroke diagnosis?: No VTE Prior VTE?: No VTE Risk Level:: Medical - moderate - high VTE Device Contraindication: Treatment Not Indicated VTE Drug Contraindication: N/A - Med Ordered
--- NOTE | 2025-01-17 10:50 | PHA.MEDREC ---
Pharmacy Consult ? Medication Reconciliation Pharmacy has completed the medication reconciliation. Pt confused and sleepy, states he doesn't take medications then that he takes some but gave conflicting answers then fell asleep. The health proxy states he lives at [facility] in [place], but I wasn't able to contact them to get any information after multiple attempts. Almost all of his medications had recent fills so I used those to confirm for now.
[2025-01-17 11:05] LABS: Glucose, Whole Blood 143 mg/dL (60-115)
--- NOTE | 2025-01-17 11:29 | MHC.CM.PN ---
PT FROM [facility] WHERE HE WILL RETURN RANDALL HDEZ
[2025-01-17 16:44] LABS: Glucose, Whole Blood 138 mg/dL (60-115)
[2025-01-17 20:08] LABS: Glucose, Whole Blood 170 mg/dL (60-115)
[2025-01-17] MEDS: Insulin Lispro 100 UNIT/ML 3 ML VIAL SUBCUT (22:23)
[2025-01-17] MEDS: cefTRIAXone sodium 1 GM VIAL IVPUSH (22:23)
[2025-01-18] MEDS: Enoxaparin Sodium 40 MG/0.4 ML SYRINGE SUBCUT ×2 (00:16→23:08)
[2025-01-18 03:00] VITALS: BP 131/73; PULSE 52; RESP 16; TEMP 36.6; O2SAT 94
[2025-01-18 07:15] LABS: Glucose, Whole Blood 138 mg/dL (60-115)
[2025-01-18 07:31] VITALS: BP 144/83; PULSE 72; RESP 16; TEMP 36.9; O2SAT 94
[2025-01-18] MEDS: 0.9 % Sodium Chloride Flush 3 ML SYRINGE IVFLUSH ×3 (09:34→20:42)
[2025-01-18 11:04] LABS: Glucose, Whole Blood 259 mg/dL (60-115)
[2025-01-18] MEDS: Insulin Lispro 100 UNIT/ML 3 ML VIAL SUBCUT ×3 (12:12→20:42)
--- NOTE | 2025-01-18 13:58 | P.PNIM_ITS ---
Subjective Subjective Date of Service: 01/18/25 Interval History: Seen and evaluated this morning more alert and interactive blood cultures growing GNR no other events overnight Review of Systems Review of Systems: Yes all other systems are reviewed and are negative Physical Exam 2 Vital Signs: Vital Signs: Last Vital Signs Temp 98.5 F 01/18/25 07:31 Pulse 72 01/18/25 07:31 Resp 16 01/18/25 07:31 BP 144/83 H 01/18/25 07:31 Pulse Ox 94 01/18/25 07:31 O2 Del Method Room Air 01/18/25 07:31 BMI result Body Mass Index 25.6 Const: Other: Constitutional : interactive, not in distress Cardiovascular : no JVP, no lower extremity edema Respiratory : bilateral chest movement, not in resp distress Gastrointestinal: soft, lax, Non tender Skin : Warm, Dry Neurological : Alert & oriented , No focal deficit Objective Data Active Medications Acetaminophen (Acetaminophen 325 Mg Tablet) 650 mg PO Q6H PRN PRN Reason: Pain, Mild 1-3,fever,headache Last Admin: 01/17/25 08:51 Dose: 650 mg Documented By: GIANNI Calcium Carbonate (Calcium Carbonate 750 Mg Tab.Chew) 750 mg PO Q4H PRN PRN Reason: Heartburn Ceftriaxone Sodium (Ceftriaxone Sodium 1 Gm Vial) 1 gm IVPUSH Q24H ON LICENSE OF [facility] Last Admin: 01/17/25 22:23 Dose: 1 gm Documented By: MELECIO Dextrose (Dextrose 50 % 25 Gm/50 Ml Syringe) 25 gm IVPUSH Q15M PRN; Protocol PRN Reason: per Hypoglycemia Standing Ord. Enoxaparin Sodium (Enoxaparin Sodium 40 Mg/0.4 Ml Syringe) 40 mg SUBCUT Q24H ON LICENSE OF [facility] Last Admin: 01/18/25 00:16 Dose: 40 mg Documented By: BIB Glucose (Glucose Gel 15 Gm Gel..Gram.) 15 gm PO Q15M PRN; Protocol PRN Reason: per Hypoglycemia Standing Ord. Insulin Human Lispro (Insulin Lispro 100 Unit/Ml 3 Ml Vial) 0 unit SUBCUT QIDACHS ON LICENSE OF [facility]; Protocol Last Admin: 01/18/25 12:12 Dose: 6 unit Documented By: GRADY Magnesium Hydroxide (Milk Of Magnesia 30 Ml Oral.Susp) 30 ml PO DAILY PRN PRN Reason: Constipation Melatonin (Melatonin 3 Mg Tablet) 6 mg PO BEDTIME PRN PRN Reason: Insomnia Ondansetron HCl (Ondansetron Hcl 4 Mg/2 Ml Vial) 4 mg IVPUSH Q8H PRN PRN Reason: Nausea and Vomiting Sodium Chloride (0.9 % Sodium Chloride Flush 3 Ml Syringe) 3 ml IVFLUSH QSHIFT ON LICENSE OF [facility] Last Admin: 01/18/25 09:34 Dose: 3 ml Documented By: CHARTN Labs 01/17/25 05:49 01/17/25 05:49 Labs: Laboratory Results - last 24 hr 01/17/25 01/17/25 01/18/25 16:39 20:05 07:11 POC Glucose 138 H 170 H 138 H 01/18/25 11:00 POC Glucose 259 H Microbiology Microbiology Results: Microbiology 01/16/25 22:16 Blood Culture - Preliminary Blood - Venous Gram negative alex 01/16/25 Unknown Urine Culture - Final Urine clean catch - Clean Catch Midstream 01/16/25 22:19 Blood Culture - Preliminary Blood - Venous No growth after 24 hours. Assessment and Plan (1) KRYSTEN (acute kidney injury): Status: Acute (2) Acute UTI: Status: Acute (3) Urinary retention with incomplete bladder emptying: Status: Acute (4) Acute metabolic encephalopathy: Status: Acute (5) Bacteremia: Status: Acute Plan 74-year-old male with pertinent history of congestive heart failure with preserved ejection fraction, hypertension, insulin-dependent diabetes mellitus, history of hemorrhagic CVA with gait instability, BPH with chronic indwelling Gross, remote alcohol use disorder, cognitive impairment who was brought to the emergency department from for evaluation of fevers and chills. Severe sepsis due to acute UTI d/t chronic Gross catheter complicated with GNR Bacteremia continue ceftriaxone follow cultures Acute kidney injury stage, pre renal azotemia resolved with IVF Insulin-dependent diabetes mellitus on glipizide and ssi at home continue SSI, diabetic diet Acute lactic acidosis due to sepsis trended down with IVF History of CVA On Plavix and statin BPH On chronic Gross, finasteride and tamsulosin Mood disorder resume after med recrisperidone, mirtazapine and trazodone Hypertension: On amlodipine Chronic Diastolic heart failure Euvolemic. Not on chronic diuretics DVT prophylaxis: Lovenox Full code. The patient will need overnight stay for treatment of URosepsis and bacteremia pending final blood cultures Quality Stroke Does the patient have a stroke diagnosis?: No VTE Prior VTE?: No VTE Risk Level:: Medical - moderate - high VTE Device Contraindication: Treatment Not Indicated VTE Drug Contraindication: N/A - Med Ordered
[2025-01-18 15:10] VITALS: BP 115/74; PULSE 67; RESP 17; TEMP 36.1; O2SAT 93
[2025-01-18 16:27] LABS: Glucose, Whole Blood 152 mg/dL (60-115)
[2025-01-18 19:06] VITALS: BP 130/66; PULSE 61; RESP 16; TEMP 36.8; O2SAT 94
[2025-01-18 20:32] LABS: Glucose, Whole Blood 174 mg/dL (60-115)
[2025-01-18] MEDS: cefTRIAXone sodium 1 GM VIAL IVPUSH (20:42)
[2025-01-18] MEDS: Melatonin 3 MG TABLET 6 MG PO (20:45)
[2025-01-18] MEDS: Acetaminophen 325 MG TABLET 650 MG PO (20:47)
[2025-01-19 03:30] VITALS: BP 138/64; PULSE 55; RESP 18; TEMP 36; O2SAT 93
[2025-01-19 06:54] VITALS: BP 137/61; PULSE 63; RESP 16; TEMP 36.9; O2SAT 93
[2025-01-19 07:03] LABS: Glucose, Whole Blood 187 mg/dL (60-115)
[2025-01-19 07:24] LABS: MANUAL DIFF FLAG NO
[2025-01-19 07:30] LABS: Basophils Percent Auto 0.2 % (0-2); Eosinophils Absolute Auto 0.1 X10*3/uL (0.0-0.4); Eosinophils Percent Auto 0.8 % (0-4); Hematocrit 35.5 % (42.0-52.0); Hemoglobin 12.2 g/dl (14.0-18.0); Imm Gran Abs Auto 0.05 X10*3/uL (0.00-0.03); Imm Gran Pct Auto 0.5 % (0.0-0.4); Lymphocytes Absolute Auto 1.4 X10*3/uL (1.2-4.9); Lymphocytes Percent Auto 13.9 % (20-40); Mean Corpuscular HGB Conc 34.4 g/dl (31.0-36.0); Mean Corpuscular Hemoglobin 28.8 pg (27.0-33.0); Mean Corpuscular Volume 83.9 fL (80.0-98.0); Mean Platelet Volume 9.4 fL (9.4-12.4); Monocytes Absolute Auto 0.9 X10*3/uL (0.1-1.2); Monocytes Percent Auto 9.4 % (2-11); Neutrophils Absolute Auto 7.4 x10*3/uL (2.0-8.3); Neutrophils Percent Auto 75.2 % (45-73); Platelet Count 173 X10*3/uL (160-400); Red Blood Count 4.23 X10*6/uL (4.60-5.80); Red Cell Distribution Width 14.3 % (11.0-16.0); White Blood Count 9.9 X10*3/uL (4.8-10.8)
[2025-01-19] MEDS: 0.9 % Sodium Chloride Flush 3 ML SYRINGE IVFLUSH ×3 (07:40→23:05)
[2025-01-19] MEDS: Insulin Lispro 100 UNIT/ML 3 ML VIAL SUBCUT ×4 (07:40→20:28)
[2025-01-19 07:42] LABS: Anion Gap 15 (12-20); Blood Urea Nitrogen 16 mg/dL (9-16); Calcium 8.6 mg/dL (8.4-10.2); Carbon Dioxide 25 mmol/L (22-29); Chloride 103 mmol/L (96-108); Creatinine Clr Calc Pharmacy 84.4; Estimated Glomerular Filt Rate > 60; Glucose Random 175 mg/dL (60-115); Potassium 3.2 mmol/L (3.3-5.1); Sodium 140 mmol/L (135-145)
[2025-01-19 11:02] LABS: Glucose, Whole Blood 229 mg/dL (60-115)
[2025-01-19] MEDS: Potassium Chloride Packet 20 MEQ PACKET 40 MEQ PO (11:41)
[2025-01-19] MEDS: Acetaminophen 325 MG TABLET 650 MG PO (12:22)
--- NOTE | 2025-01-19 14:40 | P.PNIM_ITS ---
Subjective Subjective Date of Service: 01/19/25 Interval History: Seen and evaluated this morning more alert and interactive blood cultures growing ESBL E.Coli no other events overnight Review of Systems Review of Systems: Yes all other systems are reviewed and are negative Physical Exam 2 Vital Signs: Vital Signs: Last Vital Signs Temp 98.4 F 01/19/25 06:54 Pulse 63 01/19/25 06:54 Resp 16 01/19/25 06:54 BP 137/61 01/19/25 06:54 Pulse Ox 93 01/19/25 06:54 O2 Del Method Room Air 01/19/25 06:54 BMI result Body Mass Index 25.6 Const: Other: Constitutional : interactive, not in distress Cardiovascular : no JVP, no lower extremity edema Respiratory : bilateral chest movement, not in resp distress Gastrointestinal: soft, lax, Non tender Skin : Warm, Dry Neurological : Alert & oriented , No focal deficit Objective Data Active Medications Acetaminophen (Acetaminophen 325 Mg Tablet) 650 mg PO Q6H PRN PRN Reason: Pain, Mild 1-3,fever,headache Last Admin: 01/19/25 12:22 Dose: 650 mg Documented By: TY Calcium Carbonate (Calcium Carbonate 750 Mg Tab.Chew) 750 mg PO Q4H PRN PRN Reason: Heartburn Ceftriaxone Sodium (Ceftriaxone Sodium 1 Gm Vial) 1 gm IVPUSH Q24H REPLACED BY [facility] Last Admin: 01/18/25 20:42 Dose: 1 gm Documented By: PAUL Dextrose (Dextrose 50 % 25 Gm/50 Ml Syringe) 25 gm IVPUSH Q15M PRN; Protocol PRN Reason: per Hypoglycemia Standing Ord. Enoxaparin Sodium (Enoxaparin Sodium 40 Mg/0.4 Ml Syringe) 40 mg SUBCUT Q24H REPLACED BY [facility] Last Admin: 01/18/25 23:08 Dose: 40 mg Documented By: PAUL Glucose (Glucose Gel 15 Gm Gel..Gram.) 15 gm PO Q15M PRN; Protocol PRN Reason: per Hypoglycemia Standing Ord. Insulin Human Lispro (Insulin Lispro 100 Unit/Ml 3 Ml Vial) 0 unit SUBCUT QIDACHS REPLACED BY [facility]; Protocol Last Admin: 01/19/25 11:41 Dose: 4 unit Documented By: TY Magnesium Hydroxide (Milk Of Magnesia 30 Ml Oral.Susp) 30 ml PO DAILY PRN PRN Reason: Constipation Melatonin (Melatonin 3 Mg Tablet) 6 mg PO BEDTIME PRN PRN Reason: Insomnia Last Admin: 01/18/25 20:45 Dose: 6 mg Documented By: PAUL Ondansetron HCl (Ondansetron Hcl 4 Mg/2 Ml Vial) 4 mg IVPUSH Q8H PRN PRN Reason: Nausea and Vomiting Sodium Chloride (0.9 % Sodium Chloride Flush 3 Ml Syringe) 3 ml IVFLUSH QSHIFT REPLACED BY [facility] Last Admin: 01/19/25 07:40 Dose: 3 ml Documented By: TY Labs 01/19/25 06:19 01/19/25 06:19 Labs: Laboratory Results - last 24 hr 01/18/25 01/18/25 01/19/25 16:23 20:29 06:19 MCV 83.9 MCH 28.8 MCHC 34.4 RDW 14.3 Plt Count 173 MPV 9.4 Immature Gran % (Auto) 0.5 H Neut % (Auto) 75.2 H Lymph % (Auto) 13.9 L Bennett % (Auto) 9.4 Eos % (Auto) 0.8 Baso % (Auto) 0.2 Lymph # (Auto) 1.4 Bennett # (Auto) 0.9 Eos # (Auto) 0.1 Baso # (Auto) 0.0 Abs Immat Gran (auto) 0.05 H Absolute Neuts (auto) 7.4 Absolute Nucleated RBC 0.000 Nucleated RBC % (auto) 0.0 Anion Gap 15 Estim Creat Clear Calc 84.4 Estimated GFR > 60 POC Glucose 152 H 174 H Random Glucose 175 H Calcium 8.6 01/19/25 01/19/25 07:00 10:53 MCV MCH MCHC RDW Plt Count MPV Immature Gran % (Auto) Neut % (Auto) Lymph % (Auto) Bennett % (Auto) Eos % (Auto) Baso % (Auto) Lymph # (Auto) Bennett # (Auto) Eos # (Auto) Baso # (Auto) Abs Immat Gran (auto) Absolute Neuts (auto) Absolute Nucleated RBC Nucleated RBC % (auto) Anion Gap Estim Creat Clear Calc Estimated GFR POC Glucose 187 H 229 H Random Glucose Calcium Microbiology Microbiology Results: Microbiology 01/16/25 22:16 Blood Culture - Preliminary Blood - Venous Escherichia coli 01/16/25 22:19 Blood Culture - Preliminary Blood - Venous No growth after 48 hours. Assessment and Plan (1) KRYSTEN (acute kidney injury): Status: Acute (2) Acute UTI: Status: Acute (3) Urinary retention with incomplete bladder emptying: Status: Acute (4) Bacteremia: Status: Acute Plan 74-year-old male with pertinent history of congestive heart failure with preserved ejection fraction, hypertension, insulin-dependent diabetes mellitus, history of hemorrhagic CVA with gait instability, BPH with chronic indwelling Gross, remote alcohol use disorder, cognitive impairment who was brought to the emergency department from SNF for evaluation of fevers and chills. Severe sepsis due to acute UTI d/t chronic Gross catheter complicated with GNR Bacteremia ESBL E.Coli in blood DC ceftriaxone Start Meropenem place Midline GI Consult follow cultures Acute kidney injury stage, pre renal azotemia resolved with IVF Insulin-dependent diabetes mellitus on glipizide and ssi at home continue SSI, diabetic diet Acute lactic acidosis due to sepsis trended down with IVF History of CVA On Plavix and statin BPH On chronic Gross, finasteride and tamsulosin Mood disorder resume after med recrisperidone, mirtazapine and trazodone Hypertension: On amlodipine Chronic Diastolic heart failure Euvolemic. Not on chronic diuretics DVT prophylaxis: Lovenox Full code. The patient will need overnight stay for treatment of URosepsis and ESBL E.Coli bacteremia pending Midline and ID consult Quality Stroke Does the patient have a stroke diagnosis?: No VTE Prior VTE?: No VTE Risk Level:: Medical - moderate - high VTE Device Contraindication: Treatment Not Indicated VTE Drug Contraindication: N/A - Med Ordered
[2025-01-19 15:40] VITALS: BP 108/55; PULSE 54; RESP 16; TEMP 36.2; O2SAT 94
[2025-01-19] MEDS: Meropenem 1 GM VIAL IVPUSH ×2 (15:48→23:00)
[2025-01-19 16:16] LABS: Glucose, Whole Blood 206 mg/dL (60-115)
[2025-01-19 19:37] VITALS: BP 143/73; PULSE 82; RESP 16; TEMP 37.1; O2SAT 95
[2025-01-19 20:13] LABS: Glucose, Whole Blood 157 mg/dL (60-115)
[2025-01-19] MEDS: Enoxaparin Sodium 40 MG/0.4 ML SYRINGE SUBCUT (23:04)
[2025-01-20 03:41] VITALS: BP 132/73; PULSE 61; RESP 16; TEMP 36.8; O2SAT 97
[2025-01-20 06:03] LABS: MANUAL DIFF FLAG NO
[2025-01-20] MEDS: Meropenem 1 GM VIAL IVPUSH (06:05)
[2025-01-20 06:12] LABS: Basophils Percent Auto 0.3 % (0-2); Eosinophils Absolute Auto 0.1 X10*3/uL (0.0-0.4); Eosinophils Percent Auto 1.4 % (0-4); Hematocrit 34.3 % (42.0-52.0); Hemoglobin 11.8 g/dl (14.0-18.0); Imm Gran Abs Auto 0.05 X10*3/uL (0.00-0.03); Imm Gran Pct Auto 0.7 % (0.0-0.4); Lymphocytes Absolute Auto 2.2 X10*3/uL (1.2-4.9); Lymphocytes Percent Auto 30.4 % (20-40); Mean Corpuscular HGB Conc 34.4 g/dl (31.0-36.0); Mean Corpuscular Volume 84.3 fL (80.0-98.0); Mean Platelet Volume 9.6 fL (9.4-12.4); Monocytes Absolute Auto 0.8 X10*3/uL (0.1-1.2); Monocytes Percent Auto 11.6 % (2-11); Neutrophils Percent Auto 55.6 % (45-73); Platelet Count 185 X10*3/uL (160-400); Red Blood Count 4.07 X10*6/uL (4.60-5.80); White Blood Count 7.3 X10*3/uL (4.8-10.8)
[2025-01-20 06:45] LABS: Anion Gap 12 (12-20); Blood Urea Nitrogen 16 mg/dL (9-16); Calcium 8.5 mg/dL (8.4-10.2); Carbon Dioxide 24 mmol/L (22-29); Chloride 106 mmol/L (96-108); Creatinine Clr Calc Pharmacy 80.3; Estimated Glomerular Filt Rate > 60; Glucose Random 197 mg/dL (60-115); Potassium 3.5 mmol/L (3.3-5.1); Sodium 138 mmol/L (135-145)
[2025-01-20 07:22] LABS: Glucose, Whole Blood 166 mg/dL (60-115)
[2025-01-20] MEDS: 0.9 % Sodium Chloride Flush 3 ML SYRINGE IVFLUSH ×3 (07:36→22:58)
[2025-01-20] MEDS: Insulin Lispro 100 UNIT/ML 3 ML VIAL SUBCUT ×4 (07:37→20:12)
[2025-01-20] MEDS: Acetaminophen 325 MG TABLET 650 MG PO ×2 (07:43→19:09)
[2025-01-20 07:44] VITALS: BP 125/76; PULSE 53; RESP 16; TEMP 36; O2SAT 92
--- NOTE | 2025-01-20 11:22 | HO.MIDLINE ---
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 Using ultrasound guidance, right basilic vein access was obtained twice by Terry Ni RN, but unable to advance guidewire. Right cephalic vein access was obtained by Mckinley Mejia RN. A 20G X 8 CM non-PASV ST Midline was positioned. The procedure was performed in S272. Ultrasound was used to document vein patency and for needle entry. A formal ultrasound picture was recorded. Vascular Blending Line Attendant has released the line for use and it is currently dressed with a StatLock, Tegaderm, and CHG disc. Verification has been performed for blood return and line patency. Arm Circumference: 29.5 CM Equipment: [employer] PowerGlide ST Midline Catheter Catheter Type: 20G X 8 CM non-PASV Midline Lot #: [id number]
[2025-01-20 11:33] LABS: Glucose, Whole Blood 206 mg/dL (60-115)
[2025-01-20 11:40] VITALS: BP 112/68; PULSE 64; RESP 64; TEMP 36.4; O2SAT 95
[2025-01-20] MEDS: Ertapenem Sodium 1 GM VIAL IVPUSH (12:44)
--- NOTE | 2025-01-20 13:40 | P.PNIM_ITS ---
Subjective Subjective Date of Service: 01/20/25 Interval History: Seen and evaluated this morning more alert and interactive blood cultures growing ESBL E.Coli no other events overnight Review of Systems Review of Systems: Yes all other systems are reviewed and are negative Physical Exam 2 Vital Signs: Vital Signs: Last Vital Signs Temp 97.5 F 01/20/25 11:40 Pulse 64 01/20/25 11:40 Resp 64 H 01/20/25 11:40 BP 112/68 01/20/25 11:40 Pulse Ox 95 01/20/25 11:40 O2 Del Method Room Air 01/20/25 11:40 BMI result Body Mass Index 25.6 Const: Other: Constitutional : interactive, not in distress Cardiovascular : no JVP, no lower extremity edema Respiratory : bilateral chest movement, not in resp distress Gastrointestinal: soft, lax, Non tender Skin : Warm, Dry Neurological : Alert & oriented , No focal deficit Objective Data Active Medications Acetaminophen (Acetaminophen 325 Mg Tablet) 650 mg PO Q6H PRN PRN Reason: Pain, Mild 1-3,fever,headache Last Admin: 01/20/25 07:43 Dose: 650 mg Documented By: TUSHAR Calcium Carbonate (Calcium Carbonate 750 Mg Tab.Chew) 750 mg PO Q4H PRN PRN Reason: Heartburn Dextrose (Dextrose 50 % 25 Gm/50 Ml Syringe) 25 gm IVPUSH Q15M PRN; Protocol PRN Reason: per Hypoglycemia Standing Ord. Enoxaparin Sodium (Enoxaparin Sodium 40 Mg/0.4 Ml Syringe) 40 mg SUBCUT Q24H [facility] Last Admin: 01/19/25 23:04 Dose: 40 mg Documented By: JUAN Glucose (Glucose Gel 15 Gm Gel..Gram.) 15 gm PO Q15M PRN; Protocol PRN Reason: per Hypoglycemia Standing Ord. Heparin Sodium (Porcine) (Heparin Sodium,Porcine Flush 50 Units/5 Ml Syringe) [facility] Ins[facility] Human Lispro (Insulin Lispro 100 Unit/Ml 3 Ml Vial) 0 unit SUBCUT QIDACHS [facility]; Protocol Last Admin: 01/20/25 11:45 Dose: 4 unit Documented By: TUSHAR Magnesium Hydroxide (Milk Of Magnesia 30 Ml Oral.Susp) 30 ml PO DAILY PRN PRN Reason: Constipation Melatonin (Melatonin 3 Mg Tablet) 6 mg PO BEDTIME PRN PRN Reason: Insomnia Last Admin: 01/18/25 20:45 Dose: 6 mg Documented By: PAUL Ondansetron HCl (Ondansetron Hcl 4 Mg/2 Ml Vial) 4 mg IVPUSH Q8H PRN PRN Reason: Nausea and Vomiting Sodium Chloride (0.9 % Sodium Chloride Flush 3 Ml Syringe) 3 ml IVFLUSH QSHIFT [facility] Last Admin: 01/20/25 07:36 Dose: 3 ml Documented By: TUSHAR Labs 01/20/25 05:29 01/20/25 05:29 Labs: Laboratory Results - last 24 hr 01/19/25 01/19/25 01/20/25 16:11 20:10 05:29 MCV 84.3 MCH 29.0 MCHC 34.4 RDW 14.0 Plt Count 185 MPV 9.6 Immature Gran % (Auto) 0.7 H Neut % (Auto) 55.6 Lymph % (Auto) 30.4 [place] % (Auto) 11.6 H Eos % (Auto) 1.4 Baso % (Auto) 0.3 Lymph # (Auto) 2.2 [place] # (Auto) 0.8 Eos # (Auto) 0.1 Baso # (Auto) 0.0 Abs Immat Gran (auto) 0.05 H Absolute Neuts (auto) 4.0 Absolute Nucleated RBC 0.000 Nucleated RBC % (auto) 0.0 Anion Gap 12 Estim Creat Clear Calc 80.3 Estimated GFR > 60 POC Glucose 206 H 157 H Random Glucose 197 H Calcium 8.5 01/20/25 01/20/25 07:16 11:30 MCV MCH MCHC RDW Plt Count MPV Immature Gran % (Auto) Neut % (Auto) Lymph % (Auto) [place] % (Auto) Eos % (Auto) Baso % (Auto) Lymph # (Auto) [place] # (Auto) Eos # (Auto) Baso # (Auto) Abs Immat Gran (auto) Absolute Neuts (auto) Absolute Nucleated RBC Nucleated RBC % (auto) Anion Gap Estim Creat Clear Calc Estimated GFR POC Glucose 166 H 206 H Random Glucose Calcium Microbiology Microbiology Results: Microbiology 01/16/25 22:16 Blood Culture - Final Blood - Venous Escherichia coli Assessment and Plan (1) KRYSTEN (acute kidney injury): Status: Acute (2) Acute UTI: Status: Acute (3) Urinary retention with incomplete bladder emptying: Status: Acute (4) Bacteremia due to Escherichia coli: Status: Acute (5) ESBL (extended spectrum beta-lactamase) producing bacteria infection: Status: Acute Plan 74-year-old male with pertinent history of congestive heart failure with preserved ejection fraction, hypertension, insulin-dependent diabetes mellitus, history of hemorrhagic CVA with gait instability, BPH with chronic indwelling Gross, remote alcohol use disorder, cognitive impairment who was brought to the emergency department from SNF for evaluation of fevers and chills. Severe sepsis due to acute UTI d/t chronic Gross catheter complicated with ESBL E.Coli Bacteremia ESBL E.Coli in blood DCd ceftriaxone Start Meropenem, switch to Ertapenem 1 gm daily to finish total of 14 days placed Midline, fluses ordered ID Input appreciated, 14 days Ertapenem Acute kidney injury stage, pre renal azotemia resolved with IVF Insulin-dependent diabetes mellitus on glipizide and ssi at home continue SSI, diabetic diet Acute lactic acidosis due to sepsis trended down with IVF History of CVA On Plavix and statin BPH On chronic Gross, finasteride and tamsulosin Mood disorder resume after med recrisperidone, mirtazapine and trazodone Hypertension: On amlodipine Chronic Diastolic heart failure Euvolemic. Not on chronic diuretics DVT prophylaxis: Lovenox Full code. The patient will need overnight stay for treatment of URosepsis and ESBL E.Coli bacteremia on IV Antibiotics Quality Stroke Does the patient have a stroke diagnosis?: No VTE Prior VTE?: No VTE Risk Level:: Medical - moderate - high VTE Device Contraindication: Treatment Not Indicated VTE Drug Contraindication: N/A - Med Ordered
[2025-01-20 15:28] LABS: Glucose, Whole Blood 168 mg/dL (60-115)
[2025-01-20 15:56] VITALS: BP 157/75; PULSE 66; RESP 14; TEMP 36.9; O2SAT 99
--- NOTE | 2025-01-20 16:12 | MHC.CM.PN ---
pt dc ready await auth thru [employer] for pt to return to [facility]
[2025-01-20 16:50] VITALS: BP 148/68
[2025-01-20] MEDS: Heparin Sodium,Porcine Flush 50 UNITS/5 ML SYRINGE IVFLUSH ×2 (16:52→22:58)
[2025-01-20 19:48] LABS: Glucose, Whole Blood 205 mg/dL (60-115)
[2025-01-20] MEDS: Melatonin 3 MG TABLET 6 MG PO (20:12)
[2025-01-20] MEDS: Enoxaparin Sodium 40 MG/0.4 ML SYRINGE SUBCUT (22:58)
[2025-01-21 03:23] VITALS: BP 152/76; PULSE 52; RESP 18; TEMP 36.9; O2SAT 99
[2025-01-21 07:13] VITALS: BP 106/65; PULSE 74; RESP 16; TEMP 36.7; O2SAT 97
[2025-01-21 07:33] LABS: Glucose, Whole Blood 194 mg/dL (60-115)
[2025-01-21] MEDS: Insulin Lispro 100 UNIT/ML 3 ML VIAL SUBCUT ×2 (07:38→11:54)
[2025-01-21] MEDS: Heparin Sodium,Porcine Flush 50 UNITS/5 ML SYRINGE IVFLUSH ×2 (07:39→14:52)
[2025-01-21] MEDS: 0.9 % Sodium Chloride Flush 3 ML SYRINGE IVFLUSH ×2 (07:39→14:52)
[2025-01-21 11:37] LABS: Glucose, Whole Blood 188 mg/dL (60-115)
--- NOTE | 2025-01-21 11:56 | W.PM.IDCN ---
History of Present Illness Data of Consult Service Date: 01/21/25 Requesting physician: Luciano Salgado Primary Care Provider: Geno Rousseau MD HPI Reason for consult: ESBL Ecoli blood He presents with fever and chills over day before admission. He has temperature of 101. He has had Gross He has bacteremia E coli ESBL. Review of Systems Review of Systems: Yes all other systems are reviewed and are negative [facility] Past Medical History Medical History Pancreatic mass Acute exacerbation of CHF (congestive heart failure) Influenza A Lethargy BPH loc w urin obs/LUTS Severe recurrent major depressive disorder with psychosis CHF (congestive heart failure) Hemorrhagic stroke Cholelithiasis Alcohol use disorder HTN (hypertension) Family History Family history: reviewed and not pertinent Surgical History Surgical History No pertinent past surgical history Social History Social History Household Members: [facility] Do you presently have visiting nurse or other home services: No Alcohol intake: current Alcohol intake frequency: 0-2 drinks per day Alcohol type: hard liquor Comment: sitter at bedside Patient Tobacco Use Status: Former Tobacco user Second Hand Smoke Exposure: No Advance Directives Date on File: 04/12/23 service: No Current occupational status: disabled Meds Allergies Allergy/AdvReac Type Severity Reaction Status Date / Time meperidine [From DEMEROL] Allergy Unknown UNKNOWN Verified 01/16/25 22:03 Active Medications: Current Medications Acetaminophen (Acetaminophen 325 Mg Tablet) 650 mg PO Q6H PRN PRN Reason: Pain, Mild 1-3,fever,headache Last Admin: 01/20/25 19:09 Dose: 650 mg Calcium Carbonate (Calcium Carbonate 750 Mg Tab.Chew) 750 mg PO Q4H PRN PRN Reason: Heartburn Dextrose (Dextrose 50 % 25 Gm/50 Ml Syringe) 25 gm IVPUSH Q15M PRN; Protocol PRN Reason: per Hypoglycemia Standing Ord. Enoxaparin Sodium (Enoxaparin Sodium 40 Mg/0.4 Ml Syringe) 40 mg SUBCUT Q24H HERACLIO Last Admin: 01/20/25 22:58 Dose: 40 mg Glucose (Glucose Gel 15 Gm Gel..Gram.) 15 gm PO Q15M PRN; Protocol PRN Reason: per Hypoglycemia Standing Ord. Heparin Sodium (Porcine) (Heparin Sodium,Porcine Flush 50 Units/5 Ml Syringe) 50 units IVFLUSH [facility] Last Admin: 01/21/25 07:39 Dose: 50 units Insulin Human Lispro (Insulin Lispro 100 Unit/Ml 3 Ml Vial) [facility]; Protocol Last Admin: 01/21/25 11:54 Dose: 2 unit Magnesium Hydroxide (Milk Of Magnesia 30 Ml Oral.Susp) 30 ml PO DAILY PRN PRN Reason: Constipation Melatonin (Melatonin 3 Mg Tablet) 6 mg PO BEDTIME PRN PRN Reason: Insomnia Last Admin: 01/20/25 20:12 Dose: 6 mg Ondansetron HCl (Ondansetron Hcl 4 Mg/2 Ml Vial) 4 mg IVPUSH Q8H PRN PRN Reason: Nausea and Vomiting Sodium Chloride (0.9 % Sodium Chloride Flush 3 Ml Syringe) 3 ml [facility] [place] Last Admin: 01/21/25 07:39 Dose: 3 ml Home Medications ?Medication ?Instructions ?Recorded ?Confirmed ?Last Taken ?Type amlodipine 5 mg tablet 5 mg PO DAILY 08/14/24 01/17/25 08/13/24 History atorvastatin 40 mg tablet 40 mg PO BEDTIME 08/14/24 01/17/25 08/13/24 History clopidogrel 75 mg tablet 75 mg PO DAILY 08/14/24 01/17/25 08/13/24 History insulin degludec 100 unit/mL (3 18 unit subcut DAILY 08/14/24 01/17/25 08/13/24 History mL) subcutaneous pen (Tresiba FlexTouch U-100 insulin) metformin 1,000 mg tablet 1,000 mg PO BID 08/14/24 01/17/25 08/13/24 History metoprolol succinate 50 mg 50 mg PO DAILY 08/14/24 01/17/25 08/13/24 History tablet,extended release 24 hr mirtazapine 15 mg tablet 15 mg PO BEDTIME 08/14/24 01/17/25 08/13/24 History trazodone 100 mg tablet 100 mg PO BEDTIME 08/14/24 01/17/25 08/13/24 History insulin lispro 100 unit/mL 1 sliding scale dose subcut 09/24/24 01/17/25 Unknown History subcutaneous solution (Humalog USEASDIRECTD U-100 Insulin) risperidone 0.5 mg tablet 1.5 mg PO DAILY@0900 10/23/24 01/17/25 Unknown History Physical Exam Vital Signs: Vital Signs: Last Vital Signs Temp 98.1 F 01/21/25 07:13 Pulse 74 01/21/25 07:13 Resp 16 01/21/25 07:13 BP 106/65 01/21/25 07:13 Pulse Ox 97 01/21/25 07:13 O2 Del Method Room Air 01/21/25 07:13 BMI result Body Mass Index 25.6 Const: General: cooperative HEENT: Head: Yes normal to inspection Face and sinus: Yes normal facial exam Mouth: Normal oral and palatal mucosa present Teeth and gingiva: dentition normal Eyes: General: appearance normal, both eyes and all related structures Pupils: Equal, round and reactive pupils present Resp: Effort & Inspection: normal respiratory effort Cardio: Rate: regular rate Rhythm: regular rhythm GI: Palpation (GI): Soft to palpation and nontender : General: Yes no CVA tenderness Back/Spine/Pelvis: Back: no CVA tenderness Skin: General skin exam: no rashes or lesions noted Neuro: General: moves all extremities Cranial nerves: Yes Equal, round and reactive pupils present Extrem: General: Yes normal to inspection Psych: Appearance: grossly normal Results Labs 01/20/25 05:29 01/20/25 05:29 Microbiology Microbiology Results: Microbiology 01/16/25 22:16 Blood - Venous Blood Culture - Final Escherichia coli 01/16/25 22:19 Blood - Venous Blood Culture - Preliminary No growth after 48 hours. 01/16/25 Unknown Urine clean catch - Clean Catch Midstream Urine Culture - Final Assessment and Plan (1) ESBL (extended spectrum beta-lactamase) producing bacteria infection: Status: Acute (2) Bacteremia due to Escherichia coli: Status: Acute (3) Acute UTI: Status: Acute Plan Likely urine source infection,sepsis Would give 14 d Ertapenem. Follow Urology.
--- NOTE | 2025-01-21 13:50 | MHC.CM.PN ---
pt returning to [facility] at 4 today brother umair notified
--- NOTE | 2025-01-21 13:55 | P.DS_ITS ---
DS: Providers Provider Date of Service: 01/21/25 Date of admission: 01/16/25 23:18 Date of discharge: 01/21/25 Primary care physician: Geno Rousseau MD Consults: 01/19/25 14:41 Consult to Infectious Diseases Routine Consulting Provider[place] [facility] Reason for consultation: ESBL E.Coli DS: Diagnosis Discharge Diagnosis (1) ESBL (extended spectrum beta-lactamase) producing bacteria infection: Status: Acute (2) Bacteremia due to Escherichia coli: Status: Acute (3) Acute UTI: Status: Acute (4) KRYSTEN (acute kidney injury): Status: Acute (5) Acute lactic acidosis: Status: Acute DS: Summary Hospital Course Hospital Course: Admission note HPI This is a 74-year-old male with pertinent history of congestive heart failure with preserved ejection fraction, hypertension, insulin-dependent diabetes mellitus, history of hemorrhagic CVA with gait instability, BPH with chronic indwelling Gross, remote alcohol use disorder, cognitive impairment who was brought to the emergency department from [facility] for evaluation of fevers and chills. Patient is a poor historian. States he has was having fevers and chills and he thinks he has a urinary tract infection. Patient has a chronic Gross and noticed change in color and odor of urine. X-ray was done at [facility] which was negative. CBC revealed elevated white cell count and patient was given 1 dose of ceftriaxone. He denies chest pain, palpitations, shortness of breath, abdominal pain, nausea or vomiting. In the emergency department, patient was found to be septic and given IV ceftriaxone. Also resuscitated with IV crystalloids. Leukocytosis 17.6, creatinine 1.48 and lactic acid 3.4 Hospital course The patient was admitted for evaluation of Severe sepsis due to acute UTI d/t chronic Gross catheter complicated with ESBL E.Coli Bacteremia as 1 set of blood culture grew ESBL E.Coli in blood. He was originally treated with ceftriaxone which was discontinued and he was Started on Meropenem on 01/20 daily to finish total of 14 days . placed Midline, flushes ordered. ID Input appreciated, 14 days Ertapenem Acute kidney injury stage, pre renal azotemia resolved with IVF Insulin-dependent diabetes mellitus on glipizide and ssi at home Acute lactic acidosis due to sepsis trended down with IVF. Discharge plan Continue Ertapenem for 12 more days Hold Amlodipine and monitor blood pressure for next week before restarting Hold Glipizide and monitor blood sugar for 3 days, restart if elevated Time Attestation Discharge Coordination Time (in mins): 41 Quality: Safe Use of Opioids Does Pt have an Active Cancer Diagnosis on the Problem List?: No Quality: Stroke Does the patient have a stroke diagnosis?: No Physical Exam Vital Signs: Vital Signs: Last Vital Signs Temp 98.1 F 01/21/25 07:13 Pulse 74 01/21/25 07:13 Resp 16 01/21/25 07:13 BP 106/65 01/21/25 07:13 Pulse Ox 97 01/21/25 07:13 O2 Del Method Room Air 01/21/25 07:13 BMI result Body Mass Index 25.6 Const: Other: Constitutional : interactive, not in distress Cardiovascular : no JVP, no lower extremity edema Respiratory : bilateral chest movement, not in resp distress Gastrointestinal: soft, lax, Non tender Skin : Warm, Dry Neurological : Alert & oriented , No focal deficit DS: Data Data Completed and Pending Labs on day of discharge: Laboratory Results - last 24 hr 01/20/25 01/20/25 01/21/25 15:23 19:41 07:09 POC Glucose 168 H 205 H 194 H 01/21/25 11:30 POC Glucose 188 H Preliminary micro results at discharge 01/16/25 22:19 Blood Culture - Preliminary Blood - Venous No growth after 48 hours. Discharge Plan Discharge Anticipated Discharge Date/Time: 01/21/25 13:49 Patient Disposition: [facility] Discharge Diagnosis: Bacteremia w ESBL EColi Referrals: [facility] [Other] - 1 Week Geno Rousseau MD [Primary Care Provider] - 1 Week Discharge Medications: New ertapenem 1 gram recon soln 1 g IV Q24H Qty: 12 0RF Continued (DME) pen needle, diabetic 32 gauge x 1/4 needle Qty: 100 0RF Rx Instructions: use with Lantus Solostar Pen once daily (DME) lancets [FreeStyle Lancets] 28 gauge misc Qty: 100 0RF Rx Instructions: Test four times a day or as directed. atorvastatin 40 mg tablet 40 mg PO BEDTIME metoprolol succinate 50 mg tablet extended release 24 hr 50 mg PO DAILY clopidogrel 75 mg tablet 75 mg PO DAILY trazodone 100 mg tablet 100 mg PO BEDTIME metformin 1,000 mg tablet 1,000 mg PO BID mirtazapine 15 mg tablet 15 mg PO BEDTIME insulin degludec [Tresiba FlexTouch U-100] 100 unit/mL (3 mL) insulin pen 18 unit subcut DAILY insulin lispro [Humalog U-100 Insulin] 100 unit/mL Solution 1 sliding scale dose SUBCUT USEASDIRECTD Protocol: Insulin Correction Scale Less than or equal to 110 ---- Give (units): 0 111 to 150 Give (units): 0 151 to 200 Give (units): 0 201 to 250 Give (units): 4 251 to 300 Give (units): 6 301 to 350 Give (units): 8 Greater than 350 Give (units): 10 Call MD if Blood Glucose > : 400 risperidone 0.5 mg tablet 1.5 mg PO DAILY@0900 finasteride 5 mg Tablet 5 mg PO DAILY Qty: 90 0RF tamsulosin 0.4 mg capsule 0.4 mg PO BEDTIME 90 Days Qty: 90 1RF Held amlodipine 5 mg tablet 5 mg PO DAILY Hold Instructions: Monitor BP for 1 week before restarting glipizide 10 mg Tablet 10 mg PO DAILY Qty: 60 0RF Hold Instructions: Monitor blood sugar for 3 days before restarting Discharge Orders: Discharge Order (Routine); Ordered 01/21/25 Ordered By: Luciano Salgado Diet: Diabetic diet Activity on Discharge: As tolerated Stand Alone Forms: Patient Portal Discharge page Print Language: Macedonian Care Plan Goals: Continue Ertapenem for 12 more days Hold Amlodipine and monitor blood pressure for next week before restarting Hold Glipizide and monitor blood sugar for 3 days, restart if elevated Health Concerns: ESBL E.Coli bacteremia Plan of Treatment: Ertapenem Monitor blood sugar and pressure Assessment: as above
[2025-01-21] MEDS: Finasteride 5 MG TABLET PO (14:51)
[2025-01-21] MEDS: Ertapenem Sodium 1 GM VIAL IVPUSH (14:51)
[2025-01-21] MEDS: risperiDONE 0.5 MG TABLET 1.5 MG PO (14:51)
[2025-01-21 15:30] VITALS: BP 118/70; PULSE 75; RESP 16; TEMP 36.7; O2SAT 96
[2025-01-21 16:26] LABS: Glucose, Whole Blood 206 mg/dL (60-115)
[2025-01-21 19:22] VITALS: BP 138/63; PULSE 81; RESP 18; TEMP 37; O2SAT 95
== END 2025-01-21 16:48 | disposition skilled nursing facility (03) | DRG 698 ==
LOC: HO.ED 23:42 → HO.EDOVER 23:50 → HO.S3 01-17 06:26
PROVIDERS: Internal Medicine; Admitting Provider Student in an Organized Health Care Education/Training Program; Emergency Provider Emergency Medicine; PCP Internal Medicine; Visit Provider Student in an Organized Health Care Education/Training Program
DX: T83.511A Infection and inflammatory reaction due to indwelling urethral catheter, initial encounter (principal); A41.9 Sepsis, unspecified organism; R65.20 Severe sepsis without septic shock; I50.32 Chronic diastolic (congestive) heart failure; N17.9 Acute kidney failure, unspecified; Z16.12 Extended spectrum beta lactamase (ESBL) resistance; N39.0 Urinary tract infection, site not specified; N40.1 Benign prostatic hyperplasia with lower urinary tract symptoms; R33.8 Other retention of urine; E11.9 Type 2 diabetes mellitus without complications; I11.0 Hypertensive heart disease with heart failure; B96.20 Unspecified Escherichia coli [E. coli] as the cause of diseases classified elsewhere; I69.398 Other sequelae of cerebral infarction; R26.89 Other abnormalities of gait and mobility; Z20.822 Contact with and (suspected) exposure to COVID-19; Z87.891 Personal history of nicotine dependence; Z79.4 Long term (current) use of insulin; Z79.02 Long term (current) use of antithrombotics/antiplatelets; Z79.84 Long term (current) use of oral hypoglycemic drugs; Z79.899 Other long term (current) drug therapy
CPT/HCPCS: 0241U; 36410; 36415; 71045; 80048; 80076; 81001; 82947; 83605; 83735; 84484; 85007; 85025; 85027; 87040; 87077; 87086; 87186; 87205; 93005; 99285; J0696; J1335; J1642; J1650; J2185; J7120

== ENCOUNTER → 2025-01-16 21:51 | Outpatient (BNV) | payer MEDICARE, SELFPAY | PROVIDERS: Admitting Provider Student in an Organized Health Care Education/Training Program; Emergency Provider Emergency Medicine; PCP Internal Medicine; Visit Provider Internal Medicine Cardiovascular Disease | DX: I49.3 Ventricular premature depolarization (principal); I49.9 Cardiac arrhythmia, unspecified; I45.9 Conduction disorder, unspecified | CPT/HCPCS: 93010 ==

== ENCOUNTER → 2025-01-16 21:52 | Outpatient (BNV) | payer MEDICARE, SELFPAY | PROVIDERS: Emergency Provider Emergency Medicine; Visit Provider Student in an Organized Health Care Education/Training Program | DX: R50.9 Fever, unspecified (principal) | CPT/HCPCS: 71045 ==

== ENCOUNTER → 2025-01-16 23:18 | Outpatient (BNV) | payer MEDICARE, SELFPAY | PROVIDERS: Admitting Provider Student in an Organized Health Care Education/Training Program; Emergency Provider Emergency Medicine; PCP Internal Medicine; Visit Provider Internal Medicine | DX: N39.0 Urinary tract infection, site not specified (principal); B96.20 Unspecified Escherichia coli [E. coli] as the cause of diseases classified elsewhere; Z16.12 Extended spectrum beta lactamase (ESBL) resistance | CPT/HCPCS: 99232 ==

== ENCOUNTER → 2025-01-16 23:18 | Outpatient (BNV) | payer MEDICARE, SELFPAY | PROVIDERS: Admitting Provider Student in an Organized Health Care Education/Training Program; Emergency Provider Emergency Medicine; Visit Provider Student in an Organized Health Care Education/Training Program | DX: N17.9 Acute kidney failure, unspecified (principal); N39.0 Urinary tract infection, site not specified; R33.9 Retention of urine, unspecified; R78.81 Bacteremia | CPT/HCPCS: 99223; 99232; 99239 ==

== ENCOUNTER 2025-02-03 13:31 | Outpatient (AMB) | payer MEDICARE, SELFPAY ==
--- NOTE | 2025-02-03 13:54 | MHC.OFFVIS ---
Vital Signs 02/03/25 14:08 Pulse 76 Pulse Source Pulse Oximeter Pulse Oximetry (%) 99 Oxygen Delivery Method Room Air Intake Visit Reasons: [facility] Reff/Bacteremia Allergies meperidine [From DEMEROL] Allergy (Unknown, Verified 02/03/25 14:08) UNKNOWN HPI HPI [facility] Reff/Bacteremia: Details: He has had resistant Ecoli bacteremia He takes Ertapenem for 14 days He has no complaints except bedsores after fall and is going to get checked ER. [facility] Medical History Pancreatic mass Acute exacerbation of CHF (congestive heart failure) Influenza A Lethargy BPH loc w urin obs/LUTS Severe recurrent major depressive disorder with psychosis CHF (congestive heart failure) Hemorrhagic stroke Cholelithiasis Alcohol use disorder HTN (hypertension) Surgical History No pertinent past surgical history Social History Household Members: Other Household Members Other:: [facility]. Housing[facility]ustodial [facility] Do you presently have visiting nurse or other home services: No Alcohol intake: current Alcohol intake frequency: 0-2 drinks per day Alcohol type: hard liquor Comment: sitter at bedside Patient Tobacco Use Status: Former Tobacco user Second Hand Smoke Exposure: No Advance Directives Date on File: 04/12/23 service: No Current occupational status: disabled Review of Systems Const All systems reviewed & are unremarkable except as noted in HPI and below Physical Exam Vital Signs: Last Vital Signs Pulse 76 02/03/25 14:08 Pulse Ox 99 02/03/25 14:08 Oxygen Delivery Method Room Air 02/03/25 14:08 Const General: cooperative Orientation/consciousness: patient oriented x3 HEENT Head: Yes normal to inspection Mouth: Normal oral and palatal mucosa present Eyes General: appearance normal, both eyes and all related structures Pupils: Equal, round and reactive pupils present Resp Effort & Inspection: normal respiratory effort Cardio Rate: regular rate Rhythm: regular rhythm GI Palpation (GI): Soft to palpation and nontender General: Yes no CVA tenderness Back/Spine/Pelvis Back: no CVA tenderness Skin General skin exam: no rashes or lesions noted Neuro General: patient oriented x3 Cranial nerves: Yes CN's II-XII intact bilaterally and Yes Equal, round and reactive pupils present Extrem General: Yes normal to inspection Psych Appearance: grossly normal Assessment & Plan Assessment & Plan (1) Acute lactic acidosis: Code(s): E87.21 - Acute metabolic acidosis Category: Medical Plan Remove PICC line 14 days antibiotics stopped on February 02. See prn need. Coding Level of Care Code Est Pt Level 3 (11289) Diagnoses Acute lactic acidosis E87.21
[2025-02-03 14:08] VITALS: PULSE 76; O2SAT 99
== END 2025-02-03 14:46 | disposition home or self-care (01) ==
LOC: HO.HID 13:31
PROVIDERS: PCP Internal Medicine; Visit Provider Internal Medicine
DX: E87.21 Acute metabolic acidosis (principal)
CPT/HCPCS: 99213

== ENCOUNTER → 2025-02-03 13:31 | Outpatient (BNVA) | payer MEDICARE, SELFPAY | PROVIDERS: PCP Internal Medicine; Visit Provider Internal Medicine | DX: E87.21 Acute metabolic acidosis (principal) | CPT/HCPCS: 99212 ==

== ENCOUNTER 2025-02-04 13:23 | Emergency (ER) | payer MEDICARE, SELFPAY ==
--- NOTE | ~2025-02-04 | CT_ITS ---
EXAMINATION: CT CERVICAL SPINE WITHOUT CONTRAST CLINICAL INFORMATION: Fall, pain. COMPARISON: CT cervical spine 10/22/2024 TECHNIQUE: 3 mm thin axial and reformatted 2 mm thin sagittal and coronal images of cervical spine were obtained without contrast. DLP 1570. This CT examination was performed using dose optimization techniques as appropriate, variously including the following: *Automated exposure control *Adjustment of mA and/or kV according to patient size (this includes techniques or standardized protocols for targeted exams where dose is matched to indication/reason for exam; i.e. extremities or head) *Use of iterative reconstruction technique DLP: 1570 mGy/cm. FINDINGS: On sagittal reconstructed images there is reversal of cervical lordosis. There is grade 1 anterolisthesis C4 over C5. Rest of the vertebral alignment is normal. There is moderate loss of C5 5-C6 and C6 testis 7 disc heights with ventral spondylosis. There is no visible acute fracture, dislocation subluxation. The craniovertebral junction and the C1-C2 alignment is normal. The neural foramina are patent bilaterally. Mild bilateral facet joint arthropathy slightly more progressed on the left at C2-C3, C3-4 disc levels. The lung apices are clear. The prevertebral and paravertebral soft tissues are normal. CT/CT cervical spine wo IV con IMPRESSION: Reversal of cervical lordosis with degenerative disc changes and spondylosis as described above. No visible acute fracture or dislocation seen. Fleischner guidelines were followed. Electronically signed by: Patel Smallwood MD 02/04/2025 04:48 PM EDT
--- NOTE | ~2025-02-04 | XR_ITS ---
EXAMINATION: XR ELBOW, RIGHT CLINICAL INFORMATION: pain, injury COMPARISON: None available. TECHNIQUE: AP, lateral, and oblique views of the right elbow. FINDINGS: The bones and soft tissues are normal. No fracture or joint effusion. Normal anterior and posterior elbow fat pad. There is a small posterior olecranon process osteophyte. There are no loose bodies. There is diffuse mural osteopenia Alignment is anatomic. Joint spaces are maintained. XR/XR elbow RT min 3V IMPRESSION: Diffuse osteopenia with a small olecranon process osteophyte. No acute fracture or dislocation seen. Electronically signed by: Patel Smallwood MD 02/04/2025 04:50 PM EDT
--- NOTE | ~2025-02-04 | XR_ITS ---
EXAMINATION: XR KNEE, RIGHT. 4 views. CLINICAL INFORMATION: pain, injury COMPARISON: None TECHNIQUE: Four views of the right knee. FINDINGS: There is mild reduction in tricompartment joint space with no loose bodies or bony erosive changes. There is anterior superior patellar enthesophyte. No abnormal joint effusion seen. No fracture or lytic process. XR/XR knee RT 3V IMPRESSION: Moderate degenerative changes right knee. No visible acute fracture or dislocation seen. Electronically signed by: Patel Smallwood MD 02/04/2025 04:52 PM EDT
--- NOTE | ~2025-02-04 | CT_ITS ---
EXAMINATION: CT HEAD WITHOUT CONTRAST CLINICAL INFORMATION: Fall, head strike and pain. COMPARISON: CT brain 11/17/2024 TECHNIQUE: Contiguous axial imaging was performed from the skull base to vertex without intravenous administration of contrast. This CT examination was performed using dose optimization techniques as appropriate, variously including the following: *Automated exposure control *Adjustment of mA and/or kV according to patient size (this includes techniques or standardized protocols for targeted exams where dose is matched to indication/reason for exam; i.e. extremities or head) *Use of iterative reconstruction technique DLP: 1570 FINDINGS: No acute intra-axial, extra-axial bleed, masses or midline shift. Diffuse bilateral periventrical hypodensity slightly more prominent in the right mora radiata with infarction in the right basal ganglia. Small lacunar infarction is seen in the left basal ganglia as well. There is no acute infarction in evolution. There is no edema. The lateral ventricles are symmetrical in size but mildly enlarged and so are the cortical sulci. No abnormality seen in the posterior fossa. Bone windows reveal no calvarial abnormality. There is no scalp soft tissue abnormality. Bilateral paranasal sinuses and mastoid air cells are well-aerated. CT/CT head/brain wo IV con IMPRESSION: No acute intracranial abnormality seen. Chronic microvascular ischemic changes in both cerebral hemispheres with lacunar infarction right mora radiata extending to right basal ganglia. Findings are unchanged to previous exam 11/17/2024. Electronically signed by: Patel Smallwood MD 02/04/2025 04:43 PM EDT
--- NOTE | ~2025-02-04 | XR_ITS ---
EXAMINATION: XR SHOULDER, RIGHT CLINICAL INFORMATION: pain, injury COMPARISON: None available. TECHNIQUE: Three views of the right shoulder. FINDINGS: Glenohumeral joint and AC joint space is reduced. There is moderate periarticular spurring AC joint. No acute fracture, loose bodies or joint effusion suspected. There is a small radiopaque calcification along the right greater tuberosity question calcific bursitis. The soft tissues are normal. XR/XR shoulder RT min 2V IMPRESSION: Mild degenerative changes right glenohumeral and moderate degenerative changes right AC joint. Suspect calcific bursitis at right greater tuberosity. Electronically signed by: Patel Smallwood MD 02/04/2025 04:53 PM EDT
[2025-02-04 13:34] VITALS: BP 101/55; PULSE 80; O2SAT 98
[2025-02-04 13:40] VITALS: BP 119/74; PULSE 74; RESP 18; TEMP 36.4; O2SAT 96; BMI 25.1
--- NOTE | 2025-02-04 14:18 | PC.NURSE ---
pt removed c-collar. c-collar replaced- educated on importance of c-collar
--- NOTE | 2025-02-04 14:31 | PC.NURSE ---
pt removed c-collar again
--- OUTSIDE RECORDS SUMMARY | 2025-02-04 15:43 | XMS_ITS | Encounter Summary ---
Author Organization [facility] Address [address] [place] [address] Care Team Providers Care Cascara Bark Cutter Name Role Phone Zay Bhagat MD Primary Care Provider Encounter Details Date Type Department Care Team (Late st Contact Info) Description 09/26/2024 Lab Requisition [facility] - Main Lab [address] [facility] [place] [address] Gris Rousseau MD [address] [id number] Type 2 diabetes mellitus without complications (CMS/HCC [...] mmol/L LAB CHEMISTRY METHOD 09/26/2024 9:18 AM [facility] Potassium 4.0 3.5 - 5.5 mmol/L LAB CHEMISTRY METHOD 09/26/2024 9:18 AM [facility] Chloride 97 96 - 110 mmol/L LAB CHEMISTRY METHOD 09/26/2024 9:18 AM [facility] CO2 29 21 - 32 mmol/L LAB CHEMISTRY METHOD 09/26/2024 9:18 AM [facility] Anion Gap 5 3 - 11 LAB CHEMISTRY METHOD 09/26/2024 9:18 AM [facility] Glucose 117(H) 70 - 100 mg/dL LAB CHEMISTRY METHOD 09/26/2024 9:18 AM [facility] BUN 17 5 - 25 mg/dL LAB CHEMISTRY METHOD 09/26/2024 9:18 AM [facility] Creatinine 0.82 0.70 - 1.30 mg/dL LAB CHEMISTRY METHOD 09/26/2024 9:18 AM [facility] eGFR 92 >=60 mL/min/1. 73m2 LAB CHEMISTRY METHOD 09/26/2024 9:18 AM [facility] Comment:Calculation based on the??Chronic Kidney Disease Epidemiology Collaboration (CKD-EPI) equation refit??without adjustment for race. BUN/Creatinine Ratio 20.7 LAB CHEMISTRY METHOD 09/26/2024 9:18 AM [facility] Calcium 9.0 8.5 - 10.5 mg/dL LAB CHEMISTRY METHOD 09/26/2024 9:18 AM [facility] AST (SGOT) 16 10 - 42 unit/L LAB CHEMISTRY METHOD 09/26/2024 9:18 AM [facility] ALT (SGPT) 19 10 - 60 unit/L LAB CHEMISTRY METHOD 09/26/2024 9:18 AM [facility] Alkaline Phosphatase 59 42 - 121 unit/L LAB CHEMISTRY METHOD 09/26/2024 9:18 AM EST [facility] Total Protein 6.5 6.0 - 8.0 g/dL LAB CHEMISTRY METHOD 09/26/2024 9:18 AM [facility] Albumin 3.5 3.2 - 5.0 g/dL LAB CHEMISTRY METHOD 09/26/2024 9:18 AM [facility] Total Bilirubin 0.6 0.0 - 1.4 mg/dL LAB CHEMISTRY METHOD 09/26/2024 9:18 AM [facility] Blood Venous blood specimen / Unknown Venipuncture / Unknown 09/26/2024 6:01 AM EST 09/26/2024 8:29 AM EST us Gris Rousseau MD LAB BLOOD ORDERABLES Fin al Result [facility] [address] [place] [address], * (ABNORMAL) Complete blood count (09/26/2024 6:01 AM EST) WBC 6.5 4.8 - 10.8 K/mcL LAB HEMETOLOGY METHOD 09/26/2024 8:56 AM [facility] RBC 4.10(L) 4.50 - 5.50 M/mcL LAB HEMETOLOGY METHOD 09/26/2024 8:56 AM [facility] Hemoglobin 12.2(L) 13.5 - 17.5 g/dL LAB HEMETOLOGY METHOD 09/26/2024 8:56 AM [facility] Hematocrit 35.7(L) 42.0 - 54.0 % LAB HEMETOLOGY METHOD 09/26/2024 8:56 AM [facility] MCV 87.9 79.0 - 98.0 FL LAB HEMETOLOGY METHOD 09/26/2024 8:56 AM [facility] MCH 30.0 27.0 - 32.0 pcg LAB HEMETOLOGY METHOD 09/26/2024 8:56 AM EST [facility] MCHC 34.2 32.0 - 37.0 g/dL LAB HEMETOLOGY METHOD 09/26/2024 8:56 AM [facility] RDW 12.2 11.0 - 15.0 % LAB HEMETOLOGY METHOD 09/26/2024 8:56 AM [facility] Platelets 246 130 - 400 K/mcL LAB HEMETOLOGY METHOD 09/26/2024 8:56 AM [facility] MPV 9.5 7.0 - 11.0 FL LAB HEMETOLOGY METHOD 09/26/2024 8:56 AM [facility] NRBC 0.0 <1.0 % LAB HEMETOLOGY METHOD 09/26/2024 8:56 AM [facility] NRBC Absolute 0.00 <0.10 K/mcL LAB HEMETOLOGY METHOD 09/26/2024 8:56 AM [facility] Blood Venous blood specimen / Unknown Venipuncture / Unknown 09/26/2024 6:01 AM EST 09/26/2024 8:29 AM EST us Gris Rousseau MD LAB BLOOD ORDERABLES Fin al Result [facility] [address] [place] [address], documented in this encounter Visit Diagnoses Diagnosis Type 2 diabetes mellitus without complications (CMS/HCC V24, CMS/HCC V28) documented in this encounter Additional Health Concerns Infection Onset Date Last Indicated Resolved Time Respiratory Rule-Out 11/08/2024 11/08/2024 025 4:47 PM EST Influenza 11/08/2024 11/08/2024 12/02/2024 7:05 PM EDT ESBL 01/15/2025 01/16/2025 documented as of this encounter Care Teams C[employer]ara Bark Cutter Relationship Specialty Start Date End Date Zay Bhagat MD [address] [place] [address] PCP - General 05/30/23 documented as of this encounter
--- NOTE | 2025-02-04 15:50 | ED_ITS ---
HPI - General Adult General Chief complaint: Fall Stated complaint: FALL,-LOC,HEAD/SHLDR/ELBOW PAIN,+COLLAR Time Seen by Provider: 02/04/25 15:50 Source: patient and EMS Mode of arrival: EMS Limitations: physical limitation (Patient is demented at baseline) History of Present Illness ED Provider: Cecelia Herman PA-C HPI narrative: Patient is a 74 year old assigned male at with a history of HTN, alcohol use disorder, hemorrhagic stroke, CHF, depression with psychosis, BPH with an indwelling catheter, recent ESBL sepsis s/p 14 days of PICC line ABX, presenting to the emergency department today after a fall. Patient states that he went to get up and walk to the dining room when his legs gave out and he fell down. Patient states that his right shoulder, knee, and elbow hurt. Patient states that he is having back pain as well. Patient denies any dizziness, lightheadedness, abdominal pain, nausea, vomiting, fever, chills, blurry vision, double vision, loss of vision, chest pain, difficulty breathing, shortness of breath, night sweats, blood in his urine or stool, syncope or a near syncopal episode, bowel incontinence, bladder incontinence, or any other complaints at this time. Relieving factors: none Exacerbating factors: none Associated symptoms: denies other symptoms Treatments prior to arrival: none Related Data Home Medications ?Medication ?Instructions ?Recorded ?Confirmed amlodipine 5 mg tablet 5 mg PO DAILY 08/14/24 01/17/25 atorvastatin 40 mg tablet 40 mg PO BEDTIME 08/14/24 01/17/25 clopidogrel 75 mg tablet 75 mg PO DAILY 08/14/24 01/17/25 insulin degludec 100 unit/mL (3 18 unit subcut DAILY 08/14/24 01/17/25 mL) subcutaneous pen (Tresiba FlexTouch U-100 insulin) metformin 1,000 mg tablet 1,000 mg PO BID 08/14/24 01/17/25 metoprolol succinate 50 mg 50 mg PO DAILY 08/14/24 01/17/25 tablet,extended release 24 hr mirtazapine 15 mg tablet 15 mg PO BEDTIME 08/14/24 01/17/25 trazodone 100 mg tablet 100 mg PO BEDTIME 08/14/24 01/17/25 insulin lispro 100 unit/mL 1 sliding scale dose subcut 09/24/24 01/17/25 subcutaneous solution (Humalog USEASDIRECTD U-100 Insulin) risperidone 0.5 mg tablet 1.5 mg PO DAILY@0900 10/23/24 01/17/25 Previous Rx's ?Medication ?Instructions ?Recorded lancets 28 gauge (FreeStyle #100 ea 12/01/23 Lancets) pen needle, diabetic 32 gauge x #100 ea 12/01/2309/07 finasteride 5 mg tablet 5 mg PO DAILY #90 tabs 10/25/24 glipizide 10 mg tablet 10 mg PO DAILY #60 tabs 11/12/24 tamsulosin 0.4 mg capsule 0.4 mg PO BEDTIME 90 days #90 caps 01/01/25 Allergies Allergy/AdvReac Type Severity Reaction Status Date / Time meperidine [From DEMEROL] Allergy Unknown UNKNOWN Verified 02/04/25 13:41 Review of Systems 2 Constitutional: Constitutional: Reports no additional constitutional complaints, Denies chills, Denies fever(s) and Denies night sweats Eyes: Eyes: Reports no additional eye complaints, Denies blurry vision, Denies change in vision, Denies diplopia, Denies eye discharge, Denies loss of vision and Denies eye pain ENT: Denies dizziness Cardiovascular: Cardiovascular: Reports no additional cardiovascular complaints, Denies chest pain, Denies lightheadedness, Denies Loss of Consciousness and Denies dyspnea Respiratory: Respiratory: Reports no additional respiratory complaints and Denies dyspnea Gastrointestinal: Gastrointestinal: Reports no additional gastrointestinal complaints, Denies abdominal pain, Denies melena, Denies hematochezia, Denies change in bowel habits and Denies change in stool character Genitourinary: Genitourinary: Reports no additional male genitourinary complaints, Denies hematuria, Denies oliguria, Denies difficulty urinating, Denies dysuria, Denies urinary frequency, Denies urinary hesitancy, Denies urinary incontinence and Denies urinary urgency Musculoskeletal: Musculoskeletal: Reports no additional musculoskeletal complaints, Denies numbness and Denies tingling Comments: right bicep PICC line right shoulder pain right elbow pain right knee pain Neurologic: Denies dizziness, Denies loss of vision, Denies numbness and Denies tingling Psychiatric: Psychiatric: Reports no additional psychiatric complaints Endocrine: Endocrine: Reports no additional endocrine complaints Hematologic/Lymphatic: Hematologic/Lymphatic: Reports no additional hematologic/lymphatic complaints Allergic/Immunologic: Allergic/Immunologic: Reports no additional allergic/immunologic complaints PMFSH Past Medical History Attestation statement: The following information was validated with the patient. Source: old records reviewed and nursing notes reviewed Medical History Pancreatic mass Acute exacerbation of CHF (congestive heart failure) Influenza A Lethargy BPH loc w urin obs/LUTS Severe recurrent major depressive disorder with psychosis CHF (congestive heart failure) Hemorrhagic stroke Cholelithiasis Alcohol use disorder HTN (hypertension) Surgical History No pertinent past surgical history Social History Social History [facility]: [facility] Do you presently have visiting nurse or other home services: No Alcohol intake: current Alcohol intake frequency: 0-2 drinks per day Alcohol type: hard liquor Comment: sitter at bedside Patient Tobacco Use Status: Former Tobacco user Second Hand Smoke Exposure: No Advance Directives Date on File: 04/12/23 service: No Current occupational status: disabled Physical Exam ED Vital Signs: Vital Signs - 24 hr 02/04/25 13:40 02/04/25 17:33 02/04/25 18:00 Temperature 97.5 F 98.9 F 98.9 F Pulse Rate 74 88 88 Respiratory Rate 18 20 20 Blood Pressure 119/74 145/85 H 145/85 H Pulse Oximetry 96 98 98 Oxygen Delivery Method Room Air Room Air Room Air 02/04/25 19:27 Temperature 98.9 F Pulse Rate 88 Respiratory Rate 20 Blood Pressure 145/85 H Pulse Oximetry 98 Oxygen Delivery Method Room Air BMI result Body Mass Index 25.1 Const General: cooperative, no acute distress, alert and awake Nutritional Appearance: well nourished Orientation/consciousness: patient oriented x3 HENMT Head: Yes normal to inspection and Yes atraumatic Ears: hearing grossly normal bilaterally and external ears normal General nose exam: Normal external nose present, no nasal discharge noted and no epistaxis Face and sinus: Yes normal facial exam, No abrasion and No laceration Mouth: Normal oral and palatal mucosa present, no drooling and no muffled voice Eyes General: appearance normal, both eyes and all related structures Periorbital: periorbital findings normal Eyelids: Yes eyelids normal Conjunctivae: conjunctivae normal Pupils: Equal, round and reactive pupils present EOM: EOMs intact bilaterally Neck Neck: Yes normal visual inspection, Yes full ROM and Yes no lymphadenopathy Resp Effort & Inspection: normal respiratory effort and able to speak in complete sentences Neuro General: patient oriented x3, moves all extremities and CN's II-XI intact bilaterally Cranial nerves: Yes Equal, round and reactive pupils present Cognition (Neuro): normal cognition Extrem Other: PICC line present to right bicep General: Yes full ROM and Yes capillary refill normal Psych Appearance: grossly normal Mental Status: mental status grossly normal Affect: normal affect Attitude: cooperative Thought process: Normal thought process present Thought content: Normal thought content present Insight: Good insight present (Psych) Medications Administered Discontinued Medications Generic Name Dose Route Start Last Admin Trade Name Freq PRN Reason Stop Dose Admin Diazepam 5 mg 02/04/25 19:13 02/04/25 19:18 Diazepam 10 Mg/2 Ml Cartridge IVPUSH 02/04/25 19:14 5 mg STAT STA Administration Ertapenem 1 gm 02/04/25 17:42 02/04/25 17:57 Ertapenem Sodium 1 Gm Vial IVPUSH 02/04/25 17:43 1 gm ONCE ONE Administration Medical Decision Making Medical Decision Making [facility] Narrative: Patient is a 74 year old assigned male at with a history of HTN, alcohol use disorder, hemorrhagic stroke, CHF, depression with psychosis, BPH with an indwelling catheter, recent ESBL sepsis s/p 14 days of PICC line ABX, presenting to the emergency department today after a fall. Patient's physical exam was unremarkable. Patient's blood work showed a WBC count of 11.6 but otherwise unremarkable. Patient's urine was similar to his previous with 3+ blood, 3+ leuks, >20 RBC, >50 WBC, WBC clumps, trace bacteria, 3-5 hyaline casts, and yeast. Patient's EKG was unremarkable. Patient's right knee, elbow, and shoulder x-rays showed no acute process. Patient's CT head and c-spine showed no acute process. I consulted with ID about the patient's increased WBC count and urine findings. She stated the urine is likely colonization and given he was here for a mechanical fall - she did not recommend any treatment for it at this time. While awaiting ID's recommendations, my attending physician, Dr. Greene - recommended treatment with IV ertepenem which the patient did get a dose of while in the department. I explained my physical exam findings as well as all test results to the patient. I answered all questions asked by the patient. I stressed the importance of the patient taking his medication as directed (either prescribed or as the over the counter packaging recommends). I stressed the importance of the patient following up with his primary care provider and ID. I stressed the importance of the patient returning to the emergency department immediately if his symptoms were to worsen or if he were to develop any dizziness, shortness of breath, difficulty breathing, chest pain, blurry vision, loss of vision, nausea, vomiting, abdominal pain, fever, chills, back pain, or any other complaints. Patient verbalized agreement and understanding with this treatment plan and discharge. Differential Diagnosis Differential Diagnoses: The differential diagnosis associated with the presentation includes Mechanical fall Weakness Admission/Observation Consideration of admission/observation: Escalation of care including admission/observation considered Patient would have been admitted to the hospital had his work up had any findings where hospital admission was appropriate and his clinical presentation warranted hospital admission. Consult Healthcare Provider Management of the patient was discussed with: Division Human Resources Manager (Spoke with ID as noted in the MDM Rationale portion of this note. ) Lab Data [facility] Lab Attestation statement: I reviewed the patient's lab results. My interpretation of these results are in the MDM Rationale portion of this note. 02/04/25 16:41 02/04/25 16:41 Labs: Lab Results 02/04/25 Range/Units 16:41 WBC 11.6 H (4.8-10.8) X10*3/uL RBC 4.12 L (4.60-5.80) X10*6/uL Hgb 11.9 L (14.0-18.0) g/dl Hct 35.2 L (42.0-52.0) % MCV 85.4 (80.0-98.0) fL MCH 28.9 (27.0-33.0) pg MCHC 33.8 (31.0-36.0) g/dl RDW 13.6 (11.0-16.0) % Plt Count 238 D (160-400) X10*3/uL MPV 9.1 L (9.4-12.4) fL Immature Gran % (Auto) 0.3 (0.0-0.4) % Neut % (Auto) 71.6 (45-73) % Lymph % (Auto) 17.3 L (20-40) % [place] % (Auto) 9.0 (2-11) % Eos % (Auto) 1.4 (0-4) % Baso % (Auto) 0.4 (0-2) % Lymph # (Auto) 2.0 (1.2-4.9) X10*3/uL [place] # (Auto) 1.1 (0.1-1.2) X10*3/uL Eos # (Auto) 0.2 (0.0-0.4) X10*3/uL Baso # (Auto) 0.1 (0.0-0.2) X10*3/uL Abs Immat Gran (auto) 0.04 H (0.00-0.03) X10*3/uL Absolute Neuts (auto) 8.3 (2.0-8.3) x10*3/uL Absolute Nucleated RBC 0.000 (0.0-0.012) X10*3/uL Nucleated RBC % (auto) 0.0 (0.0-0.2) /100WBC Sodium 144 (135-145) mmol/L Potassium 4.6 D (3.3-5.1) mmol/L Chloride 109 H (96-108) mmol/L Carbon Dioxide 25 (22-29) mmol/L Anion Gap 15 (12-20) BUN 24 H (9-16) mg/dL Creatinine 0.95 (0.5-1.4) mg/dL Estim Creat Clear Calc 69.3 Estimated GFR > 60 Random Glucose 125 H (60-115) mg/dL Calcium 9.3 D (8.4-10.2) mg/dL Magnesium 1.7 (1.6-2.6) mg/dL Total Bilirubin 0.4 (0.0-1.0) mg/dL AST 29 (5-37) U/L ALT 22 (0-40) U/L Alkaline Phosphatase 86 (39-117) U/L Total Protein 7.1 (6.5-8.0) g/dL Albumin 3.8 (3.5-5.0) g/dL Urine Color Yellow Urine Appearance Turbid Urine pH 5.5 (5.0-9.0) Ur Specific Etters 1.015 (1.005-1.025) Urine Protein 100 (2+) H (Neg-Trace) mg/dL Urine Glucose (UA) Negative (Negative) mg/dL Urine Ketones Negative (Negative) mg/dL Urine Blood Large (3+) H (Negative) Urine Nitrite Negative (Negative) Ur Leukocyte Esterase Large (3+) H (Negative) Urine RBC >20 H (0-2) /HPF Urine WBC >50 H (0-5) /HPF Urine WBC Clumps Present Ur Squamous Epith Cells 0-2 (0-2) /HPF Urine Bacteria Trace (None Seen) Hyaline Casts 3-5 (0-2) /LPF Urine Yeast Present Independent Interpretation I performed an independent interpretation of an: EKG, Plain X-Ray and CT Scan Interpretation: My interpretation is in agreement with the radiologist's impression of these imaging studies. L EXAMINATION: XR ELBOW, RIGHT CLINICAL INFORMATION: pain, injury COMPARISON: None available. TECHNIQUE: AP, lateral, and oblique views of the right elbow. FINDINGS: The bones and soft tissues are normal. No fracture or joint effusion. Normal anterior and posterior elbow fat pad. There is a small posterior olecranon process osteophyte. There are no loose bodies. There is diffuse mural osteopenia Alignment is anatomic. Joint spaces are maintained. XR/XR elbow RT min 3V IMPRESSION: Diffuse osteopenia with a small olecranon process osteophyte. No acute fracture or dislocation seen. Electronically signed by: Patel Smallwood MD 02/04/2025 04:50 PM EDT Dictated By: Patel Smallwood MD Signed By: Electronically signed by Patel Smallwood MD 02/04/25 [id number] Report Number: [id number]: Total DLP = 0.00 mGy-cm EXAMINATION: CT HEAD WITHOUT CONTRAST CLINICAL INFORMATION: Fall, head strike and pain. COMPARISON: CT brain 11/17/2024 TECHNIQUE: Contiguous axial imaging was performed from the skull base to vertex without intravenous administration of contrast. This CT examination was performed using dose optimization techniques as appropriate, variously including the following: *Automated exposure control *Adjustment of mA and/or kV according to patient size (this includes techniques or standardized protocols for targeted exams where dose is matched to indication/reason for exam; i.e. extremities or head) *Use of iterative reconstruction technique DLP: 1570 FINDINGS: No acute intra-axial, extra-axial bleed, masses or midline shift. Diffuse bilateral periventrical hypodensity slightly more prominent in the right mora radiata with infarction in the right basal ganglia. Small lacunar infarction is seen in the left basal ganglia as well. There is no acute infarction in evolution. There is no edema. The lateral ventricles are symmetrical in size but mildly enlarged and so are the cortical sulci. No abnormality seen in the posterior fossa. Bone windows reveal no calvarial abnormality. There is no scalp soft tissue abnormality. Bilateral paranasal sinuses and mastoid air cells are well-aerated. CT/CT head/brain wo IV con IMPRESSION: No acute intracranial abnormality seen. Chronic microvascular ischemic changes in both cerebral hemispheres with lacunar infarction right mora radiata extending to right basal ganglia. Findings are unchanged to previous exam 11/17/2024. Electronically signed by: Patel Smallwood MD 02/04/2025 04:43 PM EDT Dictated By: Patel Smallwood MD Signed By: Electronically signed by Patel Smallwood MD 02/04/25 1643 EXAMINATION: XR KNEE, RIGHT. 4 views. CLINICAL INFORMATION: pain, injury COMPARISON: None TECHNIQUE: Four views of the right knee. FINDINGS: There is mild reduction in tricompartment joint space with no loose bodies or bony erosive changes. There is anterior superior patellar enthesophyte. No abnormal joint effusion seen. No fracture or lytic process. XR/XR knee RT 3V IMPRESSION: Moderate degenerative changes right knee. No visible acute fracture or dislocation seen. Electronically signed by: Patel Smallwood MD 02/04/2025 04:52 PM EDT RP Dictated By: Patel Smallwood MD Signed By: Electronically signed by Patel Smallwood MD 02/04/25 165 EXAMINATION: XR SHOULDER, RIGHT CLINICAL INFORMATION: pain, injury COMPARISON: None available. TECHNIQUE: Three views of the right shoulder. FINDINGS: Glenohumeral joint and AC joint space is reduced. There is moderate periarticular spurring AC joint. No acute fracture, loose bodies or joint effusion suspected. There is a small radiopaque calcification along the right greater tuberosity question calcific bursitis. The soft tissues are normal. XR/XR shoulder RT min 2V IMPRESSION: Mild degenerative changes right glenohumeral and moderate degenerative changes right AC joint. Suspect calcific bursitis at right greater tuberosity. Electronically signed by: Patel Smallwood MD 02/04/2025 04:53 PM EDT RP Dictated By: Patel Smallwood MD Signed By: Electronically signed by Patel Smallwood MD 02/04/25 165 Report Number: [id number]: Total DLP = 1570.00 mGy-cm EXAMINATION: CT CERVICAL SPINE WITHOUT CONTRAST CLINICAL INFORMATION: Fall, pain. COMPARISON: CT cervical spine 10/22/2024 TECHNIQUE: 3 mm thin axial and reformatted 2 mm thin sagittal and coronal images of cervical spine were obtained without contrast. DLP 1570. This CT examination was performed using dose optimization techniques as appropriate, variously including the following: *Automated exposure control *Adjustment of mA and/or kV according to patient size (this includes techniques or standardized protocols for targeted exams where dose is matched to indication/reason for exam; i.e. extremities or head) *Use of iterative reconstruction technique DLP: 1570 mGy/cm. FINDINGS: On sagittal reconstructed images there is reversal of cervical lordosis. There is grade 1 anterolisthesis C4 over C5. Rest of the vertebral alignment is normal. There is moderate loss of C5 5-C6 and C6 testis 7 disc heights with ventral spondylosis. There is no visible acute fracture, dislocation subluxation. The craniovertebral junction and the C1-C2 alignment is normal. The neural foramina are patent bilaterally. Mild bilateral facet joint arthropathy slightly more progressed on the left at C2-C3, C3-4 disc levels. The lung apices are clear. The prevertebral and paravertebral soft tissues are normal. CT/CT cervical spine wo IV con IMPRESSION: Reversal of cervical lordosis with degenerative disc changes and spondylosis as described above. No visible acute fracture or dislocation seen. Fleischner guidelines were followed. Electronically signed by: Patel Smallwood MD 02/04/2025 04:48 PM EDT Dictated By: Patel Smallwood MD Signed By: Electronically signed by Patel Smallwood MD 02/04/25 1648 Vent. Rate: 82 BPM Atrial Rate: 84 BPM P-R Int: 178 ms QRS Dur: 110 ms QT Int: 402 ms P-R-T Axes: 83 -13 59 degrees QTcB Int: 469 ms Undetermined rhythm Nonspecific ST and T wave abnormality When compared with ECG of 16-Jan-2025 21:57, Current undetermined rhythm precludes rhythm comparison, needs review Nonspecific T wave abnormality no longer evident in Inferior leads DD/ 1628 Radiology Impression Discussion of test interpretation with radiology: I have reviewed the radiologist's reading. Independent Historian Clinical information obtained from an independent historian. History obtained from or confirmed by: EMS (EMS provided additional history and confirmed the history provided by the patient.) Critical Care Time Critical Care Time Critical Care Time: Yes Total Critical Care Time: 34 Attestation: I spent 34 minutes of Critical Care Time with this patient. This does not include time spent on separately reported billable procedures. Discharge Plan Discharge Clinical Impression: Fall Patient Disposition: Home, Self-Care Instructions: Fall Prevention for Older Adults (ED) Additional Instructions: Follow up with your primary care provider and infectious disease. Return to the emergency department immediately if your symptoms worsen or if you develop any numbness, tingling, dizziness, shortness of breath, difficulty breathing, chest pain, blurry vision, loss of vision, nausea, vomiting, abdominal pain, fever, chills, back pain, or any other complaints. Please see the information below about our Patient Portal. If you are not yet enrolled in the [facility] Patient Portal, you will receive an enrollment email invitation following your visit to any [facility] setting. You may also self-enroll in the Patient Portal by visiting our website: [email or web address] The following information is required to access the Patient Portal: - Your [facility] [place] Number - Your personal home email address (must match what is in your electronic medical record, Registration staff can assist with this) - Name - Date of Capabilities of the Patient Portal: - Message some providers - View upcoming appointments - Access your health summary, medical history, and visit history - View current conditions and allergies - View procedure and lab results - View your medications, including guidelines, side effects, and precautions - Complete pre-appointment questionnaires requested by your provider - Ready summary reports of your office visits and procedures To access the Patient Portal Mobile Kenny, follow these directions: - Search [employer] in the Kenny Store or [employer] Store - Download the Kenny - Search for [facility] - Enter your login/password Prescriptions: Discontinued ertapenem 1 gram recon soln 1 g IV Q24H Qty: 12 0RF No Action (DME) pen needle, diabetic 32 gauge x 1/4 needle Qty: 100 0RF Rx Instructions: use with Lantus Solostar Pen once daily (DME) lancets [FreeStyle Lancets] 28 gauge misc Qty: 100 0RF Rx Instructions: Test four times a day or as directed. atorvastatin 40 mg tablet 40 mg PO BEDTIME metoprolol succinate 50 mg tablet extended release 24 hr 50 mg PO DAILY clopidogrel 75 mg tablet 75 mg PO DAILY amlodipine 5 mg tablet 5 mg PO DAILY trazodone 100 mg tablet 100 mg PO BEDTIME metformin 1,000 mg tablet 1,000 mg PO BID mirtazapine 15 mg tablet 15 mg PO BEDTIME insulin degludec [Tresiba FlexTouch U-100] 100 unit/mL (3 mL) insulin pen 18 unit subcut DAILY insulin lispro [Humalog U-100 Insulin] 100 unit/mL Solution 1 sliding scale dose SUBCUT USEASDIRECTD Protocol: Insulin Correction Scale Less than or equal to 110 ---- Give (units): 0 111 to 150 Give (units): 0 151 to 200 Give (units): 0 201 to 250 Give (units): 4 251 to 300 Give (units): 6 301 to 350 Give (units): 8 Greater than 350 Give (units): 10 Call MD if Blood Glucose > : 400 risperidone 0.5 mg tablet 1.5 mg PO DAILY@0900 finasteride 5 mg Tablet 5 mg PO DAILY Qty: 90 0RF glipizide 10 mg Tablet 10 mg PO DAILY Qty: 60 0RF tamsulosin 0.4 mg capsule 0.4 mg PO BEDTIME 90 Days Qty: 90 1RF Referrals: Nathalia Kirk MD [Primary Care Provider] - Sara Ambrosio MD [Physician] - Interventions: ED Discharge Assessment Last Done: 02/04/25 19:27 Discharge Date/Time: 02/04/25 19:28 Print Language: Canadian
--- NOTE | 2025-02-04 15:51 | ECG_ITS ---
Test Reason : FALL Blood Pressure : */* mmHG Vent. Rate : 82 BPM Atrial Rate : 84 BPM P-R Int : 178 ms QRS Dur : 110 ms QT Int : 402 ms P-R-T Axes : 83 -13 59 degrees QTcB Int : 469 ms Artifact in tracing Normal sinus rhythm Nonspecific ST and T wave abnormality Borderline ECG When compared with ECG of 16-Jan-2025 21:57, No significant changes seen Referred By: Cecelia Herman Electronically Signed By: KINGSTON OSBORNE
[2025-02-04 16:46] LABS: MANUAL DIFF FLAG NO
[2025-02-04 16:48] LABS: Basophils Absolute Auto 0.1 X10*3/uL (0.0-0.2); Basophils Percent Auto 0.4 % (0-2); Eosinophils Absolute Auto 0.2 X10*3/uL (0.0-0.4); Eosinophils Percent Auto 1.4 % (0-4); Hematocrit 35.2 % (42.0-52.0); Hemoglobin 11.9 g/dl (14.0-18.0); Imm Gran Abs Auto 0.04 X10*3/uL (0.00-0.03); Imm Gran Pct Auto 0.3 % (0.0-0.4); Lymphocytes Percent Auto 17.3 % (20-40); Mean Corpuscular HGB Conc 33.8 g/dl (31.0-36.0); Mean Corpuscular Hemoglobin 28.9 pg (27.0-33.0); Mean Corpuscular Volume 85.4 fL (80.0-98.0); Mean Platelet Volume 9.1 fL (9.4-12.4); Monocytes Absolute Auto 1.1 X10*3/uL (0.1-1.2); Neutrophils Absolute Auto 8.3 x10*3/uL (2.0-8.3); Neutrophils Percent Auto 71.6 % (45-73); Platelet Count 238 X10*3/uL (160-400); Red Blood Count 4.12 X10*6/uL (4.60-5.80); Red Cell Distribution Width 13.6 % (11.0-16.0); White Blood Count 11.6 X10*3/uL (4.8-10.8)
[2025-02-04 16:53] LABS: Appearance Urine Turbid; Color Urine Yellow; Glucose Urine UA Negative (Negative); Leukocyte Esterase Urine Large (3+) (Negative); Nitrite Urine Negative (Negative); PH 5.5 (5.0-9.0); Specific Gravity - Urine 1.015 (1.005-1.025); UMIC TRIGGER UACC YES; Urine Blood Large (3+) (Negative); Urine Ketones Negative (Negative); Urine Protein 100 (2+) mg/dL (Neg-Trace)
[2025-02-04 17:03] LABS: Bacteria Urine Trace (None Seen); RBC Urine >20 /HPF (0-2); Squamous Epithelial Cell Urine 0-2 /HPF (0-2); UACC Culture Trigger YES; WBC Clumps Urine Present; WBC Urine >50 /HPF (0-5)
[2025-02-04 17:08] LABS: Alanine Aminotransferase 22 U/L (0-40); Albumin Level 3.8 g/dL (3.5-5.0); Alkaline Phosphatase 86 U/L (39-117); Anion Gap 15 (12-20); Aspartate Amino Transferase 29 U/L (5-37); Bilirubin Total 0.4 mg/dL (0.0-1.0); Blood Urea Nitrogen 24 mg/dL (9-16); Calcium 9.3 mg/dL (8.4-10.2); Carbon Dioxide 25 mmol/L (22-29); Chloride 109 mmol/L (96-108); Creatinine Clr Calc Pharmacy 69.3; Estimated Glomerular Filt Rate > 60; Glucose Random 125 mg/dL (60-115); Magnesium 1.7 mg/dL (1.6-2.6); Potassium 4.6 mmol/L (3.3-5.1); Sodium 144 mmol/L (135-145); Total Protein 7.1 g/dL (6.5-8.0)
[2025-02-04 17:33] VITALS: BP 145/85; PULSE 88; RESP 20; TEMP 37.2; O2SAT 98
[2025-02-04] MEDS: Ertapenem Sodium 1 GM VIAL IVPUSH (17:57)
[2025-02-04 18:00] VITALS: BP 145/85; PULSE 88; RESP 20; TEMP 37.2; O2SAT 98
--- NOTE | 2025-02-04 18:11 | PC.NURSE ---
report given to Destin ROGERS on [address] at [facility]
[2025-02-04] MEDS: diazePAM 10 MG/2 ML CARTRIDGE 5 MG IVPUSH (19:18)
[2025-02-04 19:27] VITALS: BP 145/85; PULSE 88; RESP 20; TEMP 37.2; O2SAT 98
--- NOTE | 2025-02-04 21:52 | PC.NURSE ---
rec call from [facility], Per ID Invanz to be d/c'd -- called [facility] spoke with Ying- advised of d/c orders- faxed revised documentation to facility [phone]
== END 2025-02-04 19:28 | disposition home or self-care (01) ==
PROVIDERS: Physician Assistant Medical; Emergency Provider Emergency Medicine Emergency Medical Services; PCP Internal Medicine Geriatric Medicine
DX: M25.511 Pain in right shoulder (principal); M25.561 Pain in right knee; M25.521 Pain in right elbow; Z91.81 History of falling; E11.9 Type 2 diabetes mellitus without complications; K86.89 Other specified diseases of pancreas
CPT/HCPCS: 36415; 70450; 72125; 73030; 73080; 73562; 80053; 81001; 83735; 85025; 87086; 87088; 93005; 96374; 96375; 99285; J1335; J3360

== ENCOUNTER → 2025-02-04 15:51 | Outpatient (BNV) | payer MEDICARE, SELFPAY | PROVIDERS: Emergency Provider Emergency Medicine Emergency Medical Services; PCP Internal Medicine Geriatric Medicine; Visit Provider Internal Medicine | DX: Z13.6 Encounter for screening for cardiovascular disorders (principal); W19.XXXA Unspecified fall, initial encounter | CPT/HCPCS: 93010 ==

== ENCOUNTER → 2025-02-04 15:51 | Outpatient (BNV) | payer MEDICARE, SELFPAY | PROVIDERS: PCP Internal Medicine Geriatric Medicine; Visit Provider Radiology Diagnostic Radiology | DX: M50.30 Other cervical disc degeneration, unspecified cervical region (principal); M47.812 Spondylosis without myelopathy or radiculopathy, cervical region; I67.82 Cerebral ischemia; M17.11 Unilateral primary osteoarthritis, right knee; M25.511 Pain in right shoulder; M25.721 Osteophyte, right elbow; M85.821 Other specified disorders of bone density and structure, right upper arm | CPT/HCPCS: 70450; 72125; 73030; 73080; 73562 ==

== ENCOUNTER 2025-04-30 13:21 | Inpatient (IN) | payer MEDICARE, SELFPAY ==
[2025-04-30] VITALS (19 sets, daily range): BP systolic 97–141; BP diastolic 51–88; PULSE 48–71; RESP 9–14; TEMP 35.3–36.7; O2SAT 95–99; BMI 25.5
--- NOTE | 2025-04-30 | ECG_ITS ---
Test Reason : AMS Blood Pressure : */* mmHG Vent. Rate : 53 BPM Atrial Rate : 53 BPM P-R Int : 202 ms QRS Dur : 124 ms QT Int : 474 ms P-R-T Axes : 16 -15 85 degrees QTcB Int : 444 ms Sinus bradycardia Non-specific intra-ventricular conduction delay Nonspecific T wave abnormality Abnormal ECG When compared with ECG of 04-Feb-2025 16:28, No significant changes seen Referred By: Generic ED Physician Electronically Signed By: KINGSTON OSBORNE
--- NOTE | ~2025-04-30 | XR_ITS ---
EXAMINATION: XR CHEST CLINICAL INFORMATION: AMS COMPARISON: January 16, 2025 TECHNIQUE: Frontal view of the chest was obtained. FINDINGS: Chronic coarse markings are noted in the left hilum. Lungs are clear. Heart size is within normal limits. The aorta is tortuous. XR/XR chest 1V IMPRESSION: No acute disease Electronically signed by: Marcelo Turk MD 04/30/2025 04:36 PM EDT
--- NOTE | ~2025-04-30 | CT_ITS ---
CLINICAL HISTORY: AMS CT head without contrast Comparison: CT/SR - CT HEAD WITHOUT IV CONTRAST - 02/04/25 16:01 EDT Findings: No intra-axial mass, midline shift, hydrocephalus, or acute hemorrhage. There is atrophy. There are nonspecific bilateral supratentorial white matter hypodensities most suggestive of chronic small-vessel ischemic changes. Nonacute lacunar infarct in right internal capsule extending to mora radiata. Questionable nonacute very small lacunar infarcts in the head of the left caudate nucleus and left thalamus. Atherosclerotic vascular disease. The visualized paranasal sinuses and mastoid air cells are clear. The orbits are within normal limits. There is no acute skull fracture. IMPRESSION: 1. No acute intracranial findings. 2. Stable nonacute findings as described. This document has been electronically signed by: Mela Hodges MD on 04/30/2025 17:27:32
--- NOTE | 2025-04-30 13:44 | ED_ITS ---
HPI - General Adult General Chief complaint: Altered Mental Status Stated complaint: INCR LETHARGY FROM SNF PER EMS Time Seen by Provider: 04/30/25 13:43 Source: patient and EMS Mode of arrival: EMS Limitations: altered mental status History of Present Illness ED Provider: Cecelia Herman PA-C HPI narrative: Patient is a 74 year old assigned male at with a history of HTN, alcohol use disorder, hemorrhagic stroke, CHF, depression with psychosis, BPH with an indwelling catheter, ESBL sepsis s/p 14 days of PICC line ABX in January of 2025. Patient here from SNF for increased lethargy and altered mental status. Patient is unable to answer any questions at this time. Related Data Home Medications ?Medication ?Instructions ?Recorded ?Confirmed amlodipine 5 mg tablet 5 mg PO DAILY 08/14/2401/17 Held on 01/21/25. Instructions: Monitor BP for 1 week before restarting atorvastatin 40 mg tablet 40 mg PO BEDTIME 08/14/24 clopidogrel 75 mg tablet 75 mg PO DAILY 08/14/2401/02 insulin degludec 100 unit/mL (3 18 unit subcut DAILY 1 10/15/23 01/17/25 mL) subcutaneous pen (Tresiba FlexTouch U-100 insulin) metformin 1,000 mg tablet 1,000 mg PO BID 08/14/24 metoprolol succinate 50 mg 50 mg PO DAILY 08/14/24 tablet,extended release 24 hr mirtazapine 15 mg tablet 15 mg PO BEDTIME 08/14/24 trazodone 100 mg tablet 100 mg PO BEDTIME 08/14/24 0 01/17/25 insulin lispro 100 unit/mL 1 sliding scale dose subcut 09/24/24 01/17/25 subcutaneous solution (Humalog USEASDIRECTD U-100 Insulin) risperidone 0.5 mg tablet 1.5 mg PO DAILY@0900 5 01/17/25 Previous Rx's ?Medication ?Instructions ?Recorded lancets 28 gauge (FreeStyle #100 ea 12/01/23 Lancets) pen needle, diabetic 32 gauge x #100 ea 12/01/23 1/4 finasteride 5 mg tablet 5 mg PO DAILY #90 tabs 10/25 glipizide 10 mg tablet 10 mg PO DAILY #60 tabs 11/02 09/28 Held on 01/21/25. Instructions: Monitor blood sugar for 3 days before restarting tamsulosin 0.4 mg capsule 0.4 mg PO BEDTIME 90 days #9 0 caps 01/01/25 Allergies Allergy/AdvReac Type Severity Reaction Status Date / Time meperidine (From DEMEROL) Allergy Unknown UNKNOWN Verified 04/30/25 14:01 Review of Systems 2 Review of Systems: Yes Unobtainable due to mental status (patient is lethargic / altered) Constitutional: Constitutional: Reports as per HPI Eyes: Eyes: Reports as per HPI ENT: Reports as per HPI Cardiovascular: Cardiovascular: Reports as per HPI Respiratory: Respiratory: Reports as per HPI Gastrointestinal: Gastrointestinal: Reports as per HPI Genitourinary: Genitourinary: Reports as per HPI Musculoskeletal: Musculoskeletal: Reports as per HPI Integumentary/Breasts: Skin/Breast: Reports as per HPI Neurologic: Reports as per HPI Psychiatric: Psychiatric: Reports as per HPI Endocrine: Endocrine: Reports as per HPI Hematologic/Lymphatic: Hematologic/Lymphatic: Reports as per HPI Allergic/Immunologic: Allergic/Immunologic: Reports as per HPI PMFSH Past Medical History Attestation statement: The following information was validated with the patient. (all information validated with the SNF staff) Source: old records reviewed, nursing notes reviewed and other ([facility] staff provided all HPI and ROS) Medical History Pancreatic mass Acute exacerbation of CHF (congestive heart failure) Influenza A Lethargy BPH loc w urin obs/LUTS Severe recurrent major depressive disorder with psychosis CHF (congestive heart failure) Hemorrhagic stroke Cholelithiasis Alcohol use disorder HTN (hypertension) Surgical History No pertinent past surgical history Social History Social History Household Members: Other Household Members Other:: [facility]. Housing: [facility]ustod[facility] Do you presently have visiting nurse or other home services: No Alcohol intake: current Alcohol intake frequency: 0-2 drinks per day Alcohol type: hard liquor Comment: sitter at bedside Patient Tobacco Use Status: Former Tobacco user Second Hand Smoke Exposure: No Advance Directives: Yes Advance Directives on File: Yes Advance Directives Date on File: 04/12/23 service: No Current occupational status: disabled Physical Exam ED Vital Signs: Vital Signs - 24 hr 04/30/25 13:40 04/30/25 13:55 04/30/25 14:10 Temperature 96.8 F 95.5 F L 96.1 F L Pulse Rate 53 54 53 Respiratory Rate 12 12 9 L Blood Pressure 141/70 H 139/73 126/71 Pulse Oximetry 96 97 98 Oxygen Delivery Method Room Air Room Air 04/30/25 14:10 04/30/25 14:40 04/30/25 14:45 Temperature 96.3 F L 96.2 F L 96.1 F L Pulse Rate 48 L 51 56 Respiratory Rate 12 10 L 12 Blood Pressure 117/63 118/67 131/72 Pulse Oximetry 95 98 97 Oxygen Delivery Method Room Air Room Air Room Air 04/30/25 15:10 04/30/25 15:11 04/30/25 15:25 Temperature 96.2 F L 96.9 F 96.1 F L Pulse Rate 52 51 Respiratory Rate 11 L 12 Blood Pressure 118/61 116/67 Pulse Oximetry 99 99 Oxygen Delivery Method Room Air Room Air 04/30/25 15:40 04/30/25 15:56 04/30/25 16:25 Temperature 96.3 F L 96.1 F L 96.4 F L Pulse Rate 50 49 L 50 Respiratory Rate 10 L 12 10 L Blood Pressure 117/57 L 99/51 L 123/60 Pulse Oximetry 97 98 96 Oxygen Delivery Method Room Air Room Air 04/30/25 16:35 04/30/25 16:55 04/30/25 17:41 Temperature 96.2 F L 95.5 F L Pulse Rate 56 48 L 63 Respiratory Rate 12 12 12 Blood Pressure 116/71 123/69 121/71 Pulse Oximetry 95 98 98 Oxygen Delivery Method Room Air Room Air Room Air BMI result Body Mass Index 25.5 Const General: lethargic Orientation/consciousness: lethargic HENAZ Head: Yes normal to inspection and Yes atraumatic Ears: hearing grossly normal bilaterally and external ears normal General nose exam: Normal external nose present, no nasal discharge noted and no epistaxis Face and sinus: Yes normal facial exam, No abrasion and No laceration Mouth: Normal oral and palatal mucosa present, no drooling and no muffled voice Eyes General: appearance normal, both eyes and all related structures Periorbital: periorbital findings normal Eyelids: Yes eyelids normal Conjunctivae: conjunctivae normal EOM: EOMs intact bilaterally Neck Neck: Yes normal visual inspection and Yes full ROM Resp Effort & Inspection: normal respiratory effort and able to speak in complete sentences Neuro General: other (lethargic) Extrem General: Yes normal to inspection, Yes full ROM and Yes capillary refill normal Psych Thought process: Normal thought process present Medications Administered Discontinued Medications Generic Name Dose Route Start Last Admin Trade Name Freq PRN Reason Stop Dose Admin Dextrose 25 gm 04/30/25 14:01 04/30/25 14:15 Dextrose 50 % 25 Gm/50 Ml Syringe IVPUSH 04/30/25 14:02 25 gm ONCE ONE Administration Ertapenem 1 gm 04/30/25 15:01 04/30/25 15:27 Ertapenem Sodium 1 Gm Vial IVPUSH 04/30/25 15:02 1 gm ONCE ONE Administration Sodium Chloride 1,000 mls @ 999 mls/hr 04/30/25 15:15 04/30/25 16:28 Ns IV 04/30/25 16:15 Infused .Q1H1M HERACLIO Infusion Sodium Chloride 1,000 mls @ 999 mls/hr 04/30/25 16:45 04/30/25 18:16 Ns IV 04/30/25 17:45 Infused .Q1H1M HERACLIO Infusion Dextrose 1,000 mls @ 75 mls/hr 04/30/25 17:30 04/30/25 19:12 D10 IVCONT 100 mls/hr .[id number] HERACLIO Infusion Medical Decision Making Medical Decision Making [facility] Narrative: Patient is a 74 year old assigned male at with a history of HTN, alcohol use disorder, hemorrhagic stroke, CHF, depression with psychosis, BPH with an indwelling catheter, ESBL sepsis s/p 14 days of PICC line ABX in January of 2025. Patient's physical exam showed a lethargic individual. Patient's blood work showed showed an initial POC of 70, initial lactic of 3.0 Patient's urine showed evidence of a UTI. Patient's EKG showed sinus bradycardia. Patient's CT head and chest x-ray showed no acute process. I became suspicious the patient was septic at 1501. Patient was given 1 amp of D50 which improved his sugar to 125. I am suspicious the patient is septic secondary to a urinary tract infection. When reviewing the patient's history he previously had an ertapenem susceptible infection - therefore I gave him ertapenem today. Patient did NOT receive 30ml/kg bolus due to his risk of fluid overload with his history of CHF. Patient was hypothermic and a bayron hugger was placed. I spoke to the hospitalist team who agreed to admission. Differential Diagnosis Differential Diagnoses: The differential diagnosis associated with the presentation includes Sepsis UTI AMS Admission/Observation Consideration of admission/observation: Escalation of care including admission/observation considered Patient admitted as noted in the MDM Rationale portion of this note. Consult Healthcare Provider Management of the patient was discussed with: Hospitalist (agreed to admission as noted in the MDM rationale portion of this note.) Lab Data [facility] Lab Attestation statement: I reviewed the patient's lab results. My interpretation of these results are in the MDM Rationale portion of this note. 04/30/25 13:46 04/30/25 14:09 Labs: Lab Results 04/30/25 04/30/25 04/30/25 Range/Units 13:46 13:54 14:09 WBC 8.3 (4.8-10.8) X10*3/uL RBC 4.06 L (4.60-5.80) X10*6/uL Hgb 11.7 L (14.0-18.0) g/dl Hct 35.3 L (42.0-52.0) % MCV 86.9 (80.0-98.0) fL MCH 28.8 (27.0-33.0) pg MCHC 33.1 (31.0-36.0) g/dl RDW 14.7 (11.0-16.0) % Plt Count 239 (160-400) X10*3/uL MPV 9.3 L (9.4-12.4) fL Immature Gran % (Auto) 0.2 (0.0-0.4) % Neut % (Auto) 56.1 (45-73) % Lymph % (Auto) 30.5 (20-40) % [place] % (Auto) 11.2 H (2-11) % Eos % (Auto) 1.6 (0-4) % Baso % (Auto) 0.4 (0-2) % Lymph # (Auto) 2.5 (1.2-4.9) X10*3/uL [place] # (Auto) 0.9 (0.1-1.2) X10*3/uL Eos # (Auto) 0.1 (0.0-0.4) X10*3/uL Baso # (Auto) 0.0 (0.0-0.2) X10*3/uL Abs Immat Gran (auto) 0.02 (0.00-0.03) X10*3/uL Absolute Neuts (auto) 4.7 (2.0-8.3) x10*3/uL Absolute Nucleated RBC 0.000 (0.0-0.012) X10*3/uL Nucleated RBC % (auto) 0.0 (0.0-0.2) /100WBC VBG pH (7.32-7.43) VBG pCO2 mmHg VBG pO2 mmHg VBG HCO3 (22-26) mmol/L VBG O2 Saturation % VBG Base Excess mmol/L Sodium 137 (135-145) mmol/L Potassium 4.7 (3.3-5.1) mmol/L Chloride 105 (96-108) mmol/L Carbon Dioxide 24 (22-29) mmol/L Anion Gap 13 (12-20) BUN 21 H (9-16) mg/dL Creatinine 0.97 (0.5-1.4) mg/dL Estim Creat Clear Calc 67.9 Estimated GFR > 60 POC Glucose 70 (60-115) mg/dL Random Glucose 76 (60-115) mg/dL Lactic Acid 3.0 H* (0.5-2.0) mmol/L Lactic Acid F/U @ 2Hr (0.5-2.0) mmol/L Calcium 9.1 (8.4-10.2) mg/dL Total Bilirubin 0.3 (0.0-1.0) mg/dL AST 24 (5-37) U/L ALT 10 (0-40) U/L Alkaline Phosphatase 79 (39-117) U/L Ammonia 23 (13-55) umol/L Total Protein 6.9 (6.5-8.0) g/dL Albumin 3.8 (3.5-5.0) g/dL Urine Color Urine Appearance Urine pH (5.0-9.0) Ur Specific [place] (1.005-1.025) Urine Protein (Neg-Trace) mg/dL Urine Glucose (UA) (Negative) mg/dL Urine Ketones (Negative) mg/dL Urine Blood (Negative) Urine Nitrite (Negative) Ur Leukocyte Esterase (Negative) Urine RBC (0-2) /HPF Urine WBC (0-5) /HPF Urine WBC Clumps Ur Squamous Epith Cells (0-2) /HPF Urine Bacteria (None Seen) Hyaline Casts (0-2) /LPF 04/30/25 04/30/25 04/30/25 Range/Units 14:15 14:25 15:06 WBC (4.8-10.8) X10*3/uL RBC (4.60-5.80) X10*6/uL Hgb (14.0-18.0) g/dl Hct (42.0-52.0) % MCV (80.0-98.0) fL MCH (27.0-33.0) pg MCHC (31.0-36.0) g/dl RDW (11.0-16.0) % Plt Count (160-400) X10*3/uL MPV (9.4-12.4) fL Immature Gran % (Auto) (0.0-0.4) % Neut % (Auto) (45-73) % Lymph % (Auto) (20-40) % [place] % (Auto) (2-11) % Eos % (Auto) (0-4) % Baso % (Auto) (0-2) % Lymph # (Auto) (1.2-4.9) X10*3/uL [place] # (Auto) (0.1-1.2) X10*3/uL Eos # (Auto) (0.0-0.4) X10*3/uL Baso # (Auto) (0.0-0.2) X10*3/uL Abs Immat Gran (auto) (0.00-0.03) X10*3/uL Absolute Neuts (auto) (2.0-8.3) x10*3/uL Absolute Nucleated RBC (0.0-0.012) X10*3/uL Nucleated RBC % (auto) (0.0-0.2) /100WBC VBG pH 7.38 (7.32-7.43) VBG pCO2 43 mmHg VBG pO2 49 mmHg VBG HCO3 26 (22-26) mmol/L VBG O2 Saturation 75.0 % VBG Base Excess 0.7 mmol/L Sodium (135-145) mmol/L Potassium (3.3-5.1) mmol/L Chloride (96-108) mmol/L Carbon Dioxide (22-29) mmol/L Anion Gap (12-20) BUN (9-16) mg/dL Creatinine (0.5-1.4) mg/dL Estim Creat Clear Calc Estimated GFR POC Glucose 125 H (60-115) mg/dL Random Glucose (60-115) mg/dL Lactic Acid (0.5-2.0) mmol/L Lactic Acid F/U @ 2Hr (0.5-2.0) mmol/L Calcium (8.4-10.2) mg/dL Total Bilirubin (0.0-1.0) mg/dL AST (5-37) U/L ALT (0-40) U/L Alkaline Phosphatase (39-117) U/L Ammonia (13-55) umol/L Total Protein (6.5-8.0) g/dL Albumin (3.5-5.0) g/dL Urine Color Yellow Urine Appearance Turbid Urine pH 6.5 (5.0-9.0) Ur Specific [place] 1.010 (1.005-1.025) Urine Protein 30 (1+) H (Neg-Trace) mg/dL Urine Glucose (UA) Negative (Negative) mg/dL Urine Ketones Negative (Negative) mg/dL Urine Blood Moderate (2+) H (Negative) Urine Nitrite Negative (Negative) Ur Leukocyte Esterase Large (3+) H (Negative) Urine RBC 0-2 (0-2) /HPF Urine WBC >50 H (0-5) /HPF Urine WBC Clumps Present Ur Squamous Epith Cells 0-2 (0-2) /HPF Urine Bacteria 2+ (None Seen) Hyaline Casts 0-2 (0-2) /LPF 04/30/25 04/30/25 Range/Units 16:05 17:20 WBC (4.8-10.8) X10*3/uL RBC (4.60-5.80) X10*6/uL Hgb (14.0-18.0) g/dl Hct (42.0-52.0) % MCV (80.0-98.0) fL MCH (27.0-33.0) pg MCHC (31.0-36.0) g/dl RDW (11.0-16.0) % Plt Count (160-400) X10*3/uL MPV (9.4-12.4) fL Immature Gran % (Auto) (0.0-0.4) % Neut % (Auto) (45-73) % Lymph % (Auto) (20-40) % [place] % (Auto) (2-11) % Eos % (Auto) (0-4) % Baso % (Auto) (0-2) % Lymph # (Auto) (1.2-4.9) X10*3/uL [place] # (Auto) (0.1-1.2) X10*3/uL Eos # (Auto) (0.0-0.4) X10*3/uL Baso # (Auto) (0.0-0.2) X10*3/uL Abs Immat Gran (auto) (0.00-0.03) X10*3/uL Absolute Neuts (auto) (2.0-8.3) x10*3/uL Absolute Nucleated RBC (0.0-0.012) X10*3/uL Nucleated RBC % (auto) (0.0-0.2) /100WBC VBG pH (7.32-7.43) VBG pCO2 mmHg VBG pO2 mmHg VBG HCO3 (22-26) mmol/L VBG O2 Saturation % VBG Base Excess mmol/L Sodium (135-145) mmol/L Potassium (3.3-5.1) mmol/L Chloride (96-108) mmol/L Carbon Dioxide (22-29) mmol/L Anion Gap (12-20) BUN (9-16) mg/dL Creatinine (0.5-1.4) mg/dL Estim Creat Clear Calc Estimated GFR POC Glucose 65 (60-115) mg/dL Random Glucose (60-115) mg/dL Lactic Acid (0.5-2.0) mmol/L Lactic Acid F/U @ 2Hr 3.5 H* (0.5-2.0) mmol/L Calcium (8.4-10.2) mg/dL Total Bilirubin (0.0-1.0) mg/dL AST (5-37) U/L ALT (0-40) U/L Alkaline Phosphatase (39-117) U/L Ammonia (13-55) umol/L Total Protein (6.5-8.0) g/dL Albumin (3.5-5.0) g/dL Urine Color Urine Appearance Urine pH (5.0-9.0) Ur Specific [place] (1.005-1.025) Urine Protein (Neg-Trace) mg/dL Urine Glucose (UA) (Negative) mg/dL Urine Ketones (Negative) mg/dL Urine Blood (Negative) Urine Nitrite (Negative) Ur Leukocyte Esterase (Negative) Urine RBC (0-2) /HPF Urine WBC (0-5) /HPF Urine WBC Clumps Ur Squamous Epith Cells (0-2) /HPF Urine Bacteria (None Seen) Hyaline Casts (0-2) /LPF Independent Interpretation I performed an independent interpretation of an: EKG, Plain X-Ray and CT Scan Interpretation: My interpretation is in agreement with the radiologist's impression of these imaging studies. L EXAMINATION: XR CHEST CLINICAL INFORMATION: AMS COMPARISON: January 16, 2025 TECHNIQUE: Frontal view of the chest was obtained. FINDINGS: Chronic coarse markings are noted in the left hilum. Lungs are clear. Heart size is within normal limits. The aorta is tortuous. XR/XR chest 1V IMPRESSION: No acute disease Electronically signed by: Marcelo Turk MD 04/30/2025 04:36 PM EDT Dictated By: Marcelo Turk MD Signed By: Electronically signed by Marcelo Turk MD 04/30/25 1636 Report Number: [id number]: Total DLP = 624.00 mGy-cm CLINICAL HISTORY: AMS CT head without contrast Comparison: CT/SR - CT HEAD WITHOUT IV CONTRAST - 02/04/25 16:01 EDT Findings: No intra-axial mass, midline shift, hydrocephalus, or acute hemorrhage. There is atrophy. There are nonspecific bilateral supratentorial white matter hypodensities most suggestive of chronic small-vessel ischemic changes. Nonacute lacunar infarct in right internal capsule extending to mora radiata.Questionable nonacute very small lacunar infarcts in the head of the left caudate nucleus and left thalamus. Atherosclerotic vascular disease. The visualized paranasal sinuses and mastoid air cells are clear. The orbits are within normal limits. There is no acute skull fracture. IMPRESSION: 1. No acute intracranial findings. 2. Stable nonacute findings as described. This document has been electronically signed by: Mela Hodges MD on 04/30/2025 17:27:32 Dictated By: Mela Hodges MD Signed By: Electronically signed by Mela Hodges MD 04/30/25 1728 I independently interpreted this EKG and am in agreement with the below findings: Vent. Rate: 53 BPM Atrial Rate: 53 BPM P-R Int: 202 ms QRS Dur: 124 ms QT Int: 474 ms P-R-T Axes: 16 -15 85 degrees QTcB Int: 444 ms Sinus bradycardia Non-specific intra-ventricular conduction delay Nonspecific T wave abnormality When compared with ECG of 04-Feb-2025 16:28, Previous ECG has undetermined rhythm, needs review ST no longer depressed in Inferior leads DD/ 1350 Radiology Impression Discussion of test interpretation with radiology: I have reviewed the radiologist's reading. Independent Historian Clinical information obtained from an independent historian. History obtained from or confirmed by: EMS (EMS provided additional history) Critical Care Time Critical Care Time Critical Care Time: Yes Total Critical Care Time: 49 Attestation: I spent 49 minutes of Critical Care Time with this patient. This does not include time spent on separately reported billable procedures. Discharge Plan Discharge Clinical Impression: Urinary tract infection, Sepsis
[2025-04-30 13:53] LABS: MANUAL DIFF FLAG NO
[2025-04-30 13:59] LABS: Glucose, Whole Blood 70 mg/dL (60-115)
[2025-04-30 14:04] LABS: Hematocrit 35.3 % (42.0-52.0); Hemoglobin 11.7 g/dl (14.0-18.0); Imm Gran Abs Auto 0.02 X10*3/uL (0.00-0.03); Imm Gran Pct Auto 0.2 % (0.0-0.4); Lymphocytes Absolute Auto 2.5 X10*3/uL (1.2-4.9); Mean Corpuscular HGB Conc 33.1 g/dl (31.0-36.0); Mean Corpuscular Hemoglobin 28.8 pg (27.0-33.0); Mean Corpuscular Volume 86.9 fL (80.0-98.0); NRBC Abs Auto 0.000 X10*3/uL (0.0-0.012); NRBC Pct Auto 0.0 /100WBC (0.0-0.2); Platelet Count 239 X10*3/uL (160-400); Red Blood Count 4.06 X10*6/uL (4.60-5.80); White Blood Count 8.3 X10*3/uL (4.8-10.8)
[2025-04-30 14:21] LABS: Venous Blood Gas Refer to POC result
[2025-04-30 14:23] LABS: VBG HCO3 26 mmol/L (22-26); VBG O2 % Saturation 75.0 %
[2025-04-30 14:28] LABS: Ammonia 23 umol/L (13-55)
[2025-04-30 14:32] LABS: Appearance Urine Turbid; Glucose Urine UA Negative (Negative); PH 6.5 (5.0-9.0); Specific Gravity - Urine 1.010 (1.005-1.025); UMIC TRIGGER UACC YES
[2025-04-30 14:39] LABS: Alanine Aminotransferase 10 U/L (0-40); Albumin Level 3.8 g/dL (3.5-5.0); Alkaline Phosphatase 79 U/L (39-117); Anion Gap 13 (12-20); Aspartate Amino Transferase 24 U/L (5-37); Blood Urea Nitrogen 21 mg/dL (9-16); Calcium 9.1 mg/dL (8.4-10.2); Carbon Dioxide 24 mmol/L (22-29); Chloride 105 mmol/L (96-108); Creatinine Clr Calc Pharmacy 67.9; Estimated Glomerular Filt Rate > 60; Potassium 4.7 mmol/L (3.3-5.1); Sodium 137 mmol/L (135-145); Total Protein 6.9 g/dL (6.5-8.0)
[2025-04-30 14:46] LABS: UACC Culture Trigger YES
[2025-04-30 15:12] LABS: Glucose, Whole Blood 125 mg/dL (60-115)
--- OUTSIDE RECORDS SUMMARY | 2025-04-30 15:22 | XMS_ITS | Encounter Summary ---
Author Organization [facility] Address [address] [place] [address] Care Team Providers Care Forest Manager Name Role Phone Zay Bahgat MD Primary Care Provider Encounter Details Date Type Department Care Team (Late st Contact Info) Description 01/16/2025 Lab Requisition [facility] - Main Lab 299 [facility] [place] [address] Gris Rousseau MD [address] [phone] Fever, unspecified Social History Tobacco Use Types Packs/Day Years [...] Associated Diagnosis Comments URINALYSIS WITH REFLEX MICROSCOPIC Routine 01/15/2025 12:30 PM EDT Fever, unspecified URINALYSIS WITH REFLEX MICROSCOPIC Routine 01/15/2025 12:30 PM EDT Fever, unspecified CULTURE URINE Routine 01/15/2025 12:30 PM EDT Fever, unspecified documented in this encounter Results * (ABNORMAL) Urinalysis with reflex microscopic (01/15/2025 12:30 PM EDT) Specific [place] Urine 1.013 1.003 - 1.030 LAB URINALYSIS - AUTOMATED METHOD 01/16/2025 9:12 AM [facility] pH, Urine 6.0 5.0 - 8.0 pH LAB URINALYSIS - AUTOMATED METHOD 01/16/2025 9:12 AM [facility] Leukocytes, Urine Large(A) Negative LAB URINALYSIS - AUTOMATED METHOD 01/16/2025 9:12 AM [facility] Nitrite, Urine Positive(A) Negative LAB URINALYSIS - AUTOMATED METHOD 01/16/2025 9:12 AM [facility] Protein, Urine 100(A) <=Trace mg/dL LAB URINALYSIS - AUTOMATED METHOD 01/16/2025 9:12 AM [facility] Glucose, Urine Negative Negative mg/dL LAB URINALYSIS - AUTOMATED METHOD 01/16/2025 9:12 AM [facility] Ketones, Urine Negative Negative mg/dL LAB URINALYSIS - AUTOMATED METHOD 01/16/2025 9:12 AM [facility] Urobilinogen , Urine 0.2 0.2 - 1.0 mg/dL LAB URINALYSIS - AUTOMATED METHOD 01/16/2025 9:12 AM [facility] Bilirubin, Urine Negative Negative LAB URINALYSIS - AUTOMATED METHOD 01/16/2025 9:12 AM [facility] Blood, Urine Moderate(A) Negative LAB URINALYSIS - AUTOMATED METHOD 01/16/2025 9:12 AM [facility] RBC, Urine 21.7(H) 0 - 4 /HPF LAB URINALYSIS - AUTOMATED METHOD 01/16/2025 9:12 AM [facility] WBC, Urine 637.2(H) 0 - 4 /HPF LAB URINALYSIS - AUTOMATED METHOD 01/16/2025 9:12 AM [facility] Squamous Epithelial, Urine 5 0 - 60 /LPF LAB URINALYSIS - AUTOMATED METHOD 01/16/2025 9:12 AM EDT [facility] Bacteria, Urine Many(A) Negative /HPF LAB URINALYSIS - AUTOMATED METHOD 01/16/2025 9:12 AM EDT [facility] Hyaline Casts, Urine 0.4 0 - 3 /LPF LAB URINALYSIS - AUTOMATED METHOD 01/16/2025 9:12 AM EDT [facility] Urine Indwelling urinary catheter / Unknown 01/15/2025 12:30 PM EDT 01/16/2025 8:39 AM EDT us Gris Rousseau MD LAB URINE ORDERABLES Fin al Result [facility] [address] [place] [address], * (ABNORMAL) Culture urine (01/15/2025 12:30 PM EDT) Culture, Urine >100,000 CFU/mL Escherichia coli ESBL(A) NI 01/19/2025 8:00 AM EDT [facility] Comment: TESTING SUGGESTS AN ESBL(EXTENDED-SPECTRUM BETA-L ACTAMASE PRODUCING STRAIN)WHICH MAY BE RESISTANT C LINICALLY TO ALL CEPHALOSPORINS AND AZTREONAM. Edited result: Previously reported as Escherichia coli on 01/18/2025 at 1058 EDT. Urine Indwelling urinary catheter / Unknown 01/15/2025 12:30 PM EDT 01/16/2025 8:39 AM EDT Narrative Organism Antibiotic Method Susceptibility Escherichia coli ESBL Amoxicillin/Clavulanate NI 16 ug/ml: Intermediate Escherichia coli ESBL Ampicillin/Sulbactam NI >=32 ug/ml: Resistant Escherichia coli ESBL Piperacillin/Tazobactam NI 8 ug/ml: Susceptible Escherichia coli ESBL Cefazolin (Urine) NI >=32 ug/ml: Resistant Escherichia coli ESBL Cefoxitin NI 8 ug/ml: Susceptible Escherichia coli ESBL Ceftazidime NI >=32 ug/ml: Resistant Escherichia coli ESBL Ceftriaxone NI >=64 ug/ml: Resistant Escherichia coli ESBL Cefepime NI >=32 ug/ml: Resistant Escherichia coli ESBL Meropenem NI <=0.25 ug/ml: Susceptible Escherichia coli ESBL Amikacin NI 4 ug/ml: Susceptible Escherichia coli ESBL Gentamicin NI >=16 ug/ml: Resistant Escherichia coli ESBL Ciprofloxacin NI >=4 ug/ml: Resistant Escherichia coli ESBL Levofloxacin NI >=8 ug/ml: Resistant Escherichia coli ESBL Nitrofurantoin NI <=16 ug/ml: Susceptible Escherichia coli ESBL Trimethoprim/Sulfa methoxazol e NI >=320 ug/ml: Resistant us Gris Rousseau MD LAB MICROBIOLOGY - GENER AL ORDERABLES Final Result [facility] [address] [place] [address], documented in this encounter Visit Diagnoses Diagnosis Fever, unspecified documented in this encounter Additional Health Concerns Infection Onset Date Last Indicated Resolved Time ESBL 01/15/2025 01/16/2025 C. difficile Rule-Out 03/28/2025 03/27/20252024 10:26 AM EDT documented as of this encounter Care Teams Forest Manager Relationship Specialty Start Date End Date Zay Bhagat MD [address] [place] [address] PCP - General 05/30/23 documented as of this encounter
--- OUTSIDE RECORDS SUMMARY | 2025-04-30 15:22 | XMS_ITS | Encounter Summary ---
Author Organization [facility] Address [address] [place] [address] Care Team Providers Care Maintainer Operator Name Role Phone Zay Bhagat MD Primary Care Provider Encounter Details Date Type Department Care Team (Late st Contact Info) Description 09/20/2024 Lab Requisition [facility] - Main Lab 299 [facility] [place] [address] Gris Rousseau MD [address] [phone] Essential (primary) hypertension Social History Tobacco Use [...] 12/02/2024 7:05 PM EDT ESBL 01/15/2025 01/16/2025 C. difficile Rule-Out 03/28/2025 03/27/20252024 10:26 AM EDT documented as of this encounter Care Teams Maintainer Operator Relationship Specialty Start Date End Date Zay Bhagat MD [address] [place] [address] PCP - General 05/30/23 documented as of this encounter
--- OUTSIDE RECORDS SUMMARY | 2025-04-30 15:22 | XMS_ITS | Encounter Summary ---
Author Organization [facility] Address [address] [place] [address] Care Team Providers Care Biometric Fingerprinting Technician Name Role Phone Zay Bhagat MD Primary Care Provider Encounter Details Date Type Department Care Team (Late st Contact Info) Description 02/02/2025 Lab Requisition [facility] - Main Lab 299 [facility] [place] [address] Gris Rousseau MD [address] [phone] Sepsis, unspecified organism (CMS/HCC V24, CMS/HCC V28) Social History Tobacco [...] Associated Diagnosis Comments COMPLETE BLOOD COUNT Routine 02/03/2025 8:30 AM EDT Sepsis, unspecified organism (CMS/HCC V24, CMS/HCC V28) CREATINE KINASE Routine 02/03/2025 8:30 AM EDT Sepsis, unspecified organism (CMS/HCC V24, CMS/HCC V28) COMPREHENSIVE METABOLIC PANEL Routine 02/03/2025 8:30 AM EDT Sepsis, unspecified organism (CMS/HCC V24, CMS/HCC V28) documented in this encounter Results * Creatine kinase (02/03/2025 8:30 AM EDT) Pathologist [facility] Total CK 208 22 - 269 unit/L LAB CHEMISTRY METHOD 02/03/2025 12:09 PM [facility] Blood Venous blood specimen / Unknown Venipuncture / Unknown 02/03/2025 8:30 AM EDT 02/03/2025 11:55 AM EDT us Gris Rousseau MD LAB BLOOD ORDERABLES Fin al Result [facility] [address] [place] [address], * (ABNORMAL) Comprehensive metabolic panel (02/03/2025 8:30 AM EDT) [facility] Sodium 140 133 - 145 mmol/L LAB CHEMISTRY METHOD 02/03/2025 12:06 PM [facility] Potassium 4.1 3.5 - 5.5 mmol/L LAB CHEMISTRY METHOD 02/03/2025 12:06 PM [facility] Chloride 107 96 - 110 mmol/L LAB CHEMISTRY METHOD 02/03/2025 12:06 PM [facility] CO2 26 21 - 32 mmol/L LAB CHEMISTRY METHOD 02/03/2025 12:06 PM [facility] Anion Gap 7 3 - 11 LAB CHEMISTRY METHOD 02/03/2025 12:06 PM [facility] Glucose 106(H) 70 - 100 mg/dL LAB CHEMISTRY METHOD 02/03/2025 12:06 PM [facility] BUN 19 5 - 25 mg/dL LAB CHEMISTRY METHOD 02/03/2025 12:06 PM [facility] Creatinine 1.00 0.70 - 1.30 mg/dL LAB CHEMISTRY METHOD 02/03/2025 12:06 PM [facility] eGFR 78 >=60 mL/min/1. 73m2 LAB CHEMISTRY METHOD 02/03/2025 12:06 PM [facility] Comment:Calculation based on the Chronic Kidney Disease Epidemiology Collaboration (CKD-EPI) equation refit without adjustment for race. BUN/Creatinine Ratio 19.0 LAB CHEMISTRY METHOD 02/03/2025 12:06 PM [facility] Calcium 9.6 8.5 - 10.5 mg/dL LAB CHEMISTRY METHOD 02/03/2025 12:06 PM [facility] AST (SGOT) 25 10 - 42 unit/L LAB CHEMISTRY METHOD 02/03/2025 12:06 PM [facility] ALT (SGPT) 22 10 - 60 unit/L LAB CHEMISTRY METHOD 02/03/2025 12:06 PM [facility] Alkaline Phosphatase 97 42 - 121 unit/L LAB CHEMISTRY METHOD 02/03/2025 12:06 PM [facility] Total Protein 7.2 6.0 - 8.0 g/dL LAB CHEMISTRY METHOD 02/03/2025 12:06 PM [facility] Albumin 3.5 3.2 - 5.0 g/dL LAB CHEMISTRY METHOD 02/03/2025 12:06 PM [facility] Total Bilirubin 0.5 0.0 - 1.4 mg/dL LAB CHEMISTRY METHOD 02/03/2025 12:06 PM [facility] Blood Venous blood specimen / Unknown Venipuncture / Unknown 02/03/2025 8:30 AM EDT 02/03/2025 11:55 AM EDT us Gris Rousseau MD LAB BLOOD ORDERABLES Fin al Result [facility] [address] [place] [address], * (ABNORMAL) Complete blood count (02/03/2025 8:30 AM EDT) [facility] WBC 10.0 4.8 - 10.8 K/mcL LAB HEMETOLOGY METHOD 02/03/2025 10:53 AM [facility] RBC 4.40(L) 4.50 - 5.50 M/mcL LAB HEMETOLOGY METHOD 02/03/2025 10:53 AM [facility] Hemoglobin 12.5(L) 13.5 - 17.5 g/dL LAB HEMETOLOGY METHOD 02/03/2025 10:53 AM [facility] Hematocrit 39.2(L) 42.0 - 54.0 % LAB HEMETOLOGY METHOD 02/03/2025 10:53 AM [facility] MCV 89.3 79.0 - 98.0 FL LAB HEMETOLOGY METHOD 02/03/2025 10:53 AM [facility] MCH 28.5 27.0 - 32.0 pcg LAB HEMETOLOGY METHOD 02/03/2025 10:53 AM [facility] MCHC 31.9(L) 32.0 - 37.0 g/dL LAB HEMETOLOGY METHOD 02/03/2025 10:53 AM [facility] RDW 13.7 11.0 - 15.0 % LAB HEMETOLOGY METHOD 02/03/2025 10:53 AM [facility] Platelets 296 130 - 400 K/mcL LAB HEMETOLOGY METHOD 02/03/2025 10:53 AM [facility] MPV 9.7 7.0 - 11.0 FL LAB HEMETOLOGY METHOD 02/03/2025 10:53 AM [facility] NRBC 0.0 <1.0 % LAB HEMETOLOGY METHOD 02/03/2025 10:53 AM [facility] NRBC Absolute 0.00 <0.10 K/mcL LAB HEMETOLOGY METHOD 02/03/2025 10:53 AM EDT [facility] Blood Venous blood specimen / Unknown Venipuncture / Unknown 02/03/2025 8:30 AM EDT 02/03/2025 10:20 AM EDT us Gris Rousseau MD LAB BLOOD ORDERABLES Fin al Result [facility] [address] [place] [address], documented in this encounter Visit Diagnoses Diagnosis Sepsis, unspecified organism (CMS/HCC V24, CMS/HCC V28) documented in this encounter Additional Health Concerns Infection Onset Date Last Indicated Resolved Time ESBL 01/15/2025 01/16/2025 C. difficile Rule-Out 03/28/2025 03/27/20252024 10:26 AM EDT documented as of this encounter Care Teams Biometric Fingerprinting Technician Relationship Specialty Start Date End Date Zay Bhagat MD [address] [place] [address] PCP - General 05/30/23 documented as of this encounter
--- OUTSIDE RECORDS SUMMARY | 2025-04-30 15:22 | XMS_ITS | Encounter Summary ---
Author Organization [facility] Address [address] [place] [address] Care Team Providers Care Cook Dinner Name Role Phone Zay Bhagat MD Primary Care Provider Encounter Details Date Type Department Care Team (Late st Contact Info) Description 11/08/[address] [facility] - Main Lab 299 [facility] [place] [address] Gris Rousseau MD [address] [phone] Hematuria, unspecified; Essential (primary) hypertension; Urinary tract [...] Culture urine (11/07/2024 11:55 PM EST) Pathologist [facility] Culture, Urine <10,000 CFU/mL gram negative bacilli, insignificant count, no further workup 11/09/2024 9:02 AM [facility] Urine Urine specimen obtained by clean catch procedure / Unknown Non-blood Collection / Unknown 11/07/2024 11:55 PM EST 11/08/2024 12:04 PM EST us Gris Rousseau MD LAB MICROBIOLOGY - GENER AL ORDERABLES Final Result [facility] [address] [place] [address], [place] [phone] * (ABNORMAL) Urinalysis with reflex microscopic and culture (11/07/2024 11:55 PM EST) Pathologist [facility] Specific [place] Urine 1.020 1.003 - 1.030 LAB URINALYSIS [...] MD LAB URINE ORDERABLES Fin al Result [facility] [address] [place] [address], * Daniels urine culture tube (11/07/2024 11:55 PM EST) Extra Tube Hold for add-ons. 11/08/2024 1:01 PM EST [facility] Comment:Auto resulted. Urine Urine specimen obtained by clean catch procedure / Unknown Non-blood Collection / Unknown 11/07/2024 11:55 PM EST 11/08/2024 11:12 AM EST us Gris Rousseau MD LAB URINE ORDERABLES Fin al Result [facility] [address] [place] [address], documented in this encounter Visit Diagnoses Diagnosis [...] as of this encounter Care Teams Cook Dinner Relationship Specialty Start Date End Date Zay Bhagat MD [address] [place] [address] PCP - General 05/30/23 documented as of this encounter
--- OUTSIDE RECORDS SUMMARY | 2025-04-30 15:22 | XMS_ITS | Encounter Summary ---
Author Organization [facility] Address [address] [place] [address] Care Team Providers Care Transmission Specialist Name Role Phone Zay Bhagat MD Primary Care Provider Encounter Details Date Type Department Care Team (Late st Contact Info) Description 03/28/2025 Lab Requisition [facility] - Main Lab 299 [facility] [place] [address] Gris Rousseau MD [address] [address] Diarrhea, unspecified Social History Tobacco Use Types Packs/Day [...] Procedure Name Priority Date/Time Associated Diagnosis Comments CLOSTRIDIUM DIFFICILE TOXIN Routine 03/27/2025 6:00 AM EDT Diarrhea, unspecified documented in this encounter Results * Clostridium difficile toxin (03/27/2025 6:00 AM EDT) Clostridium difficile GDH Antigen Negative Negative 03/28/2025 10:26 AM EDT [facility] C difficile Toxins A+B, EIA Negative Negative 03/28/2025 10:26 AM EDT [facility] Comment:NEGATIVE FOR TOXIN P RODUCING CLOSTRIDIOIDES DIFFICILE, NO ADDITIONAL TESTING IS NECESSARY. Stool Rectum structure / Unknown Non-blood Collection / Unknown 03/27/2025 6:00 AM EDT 03/28/2025 9:15 AM EDT Gris Rousseau MD LAB MICROBIOLOGY - GENER AL ORDERABLES Final Result [facility] [address] [place] [address], documented in this encounter Visit Diagnoses Diagnosis Diarrhea, unspecified documented in this encounter Additional Health Concerns Infection Onset Date Last Indicated Resolved Time ESBL 01/15/2025 01/16/2025 C. difficile Rule-Out 03/28/2025 03/27/20252024 10:26 AM EDT documented as of this encounter Care Teams Transmission Specialist Relationship Specialty Start Date End Date Zay Bhagat MD [address] [place] [address] PCP - General 05/30/23 documented as of this encounter
--- OUTSIDE RECORDS SUMMARY | 2025-04-30 15:22 | XMS_ITS | Encounter Summary ---
Author Organization [facility] Address [address] [place] [address] Care Team Providers Care Preassembler And Inspector Name Role Phone Zay Bhagat MD Primary Care Provider Encounter Details Date Type Department Care Team (Late st Contact Info) Description 12/14/2024 Lab Requisition [facility] - Main Lab 299 [facility] [place] [address] Gris Rousseau MD [address] [phone] Type 2 diabetes mellitus without complications (CMS/HCC [...] mmol/L LAB CHEMISTRY METHOD 12/16/2024 2:30 PM [facility] Potassium 4.2 3.5 - 5.5 mmol/L LAB CHEMISTRY METHOD 12/16/2024 2:30 PM [facility] Chloride 106 96 - 110 mmol/L LAB CHEMISTRY METHOD 12/16/2024 2:30 PM [facility] CO2 28 21 - 32 mmol/L LAB CHEMISTRY METHOD 12/16/2024 2:30 PM [facility] Anion Gap 7 3 - 11 LAB CHEMISTRY METHOD 12/16/2024 2:30 PM [facility] Glucose 150(H) 70 - 100 mg/dL LAB CHEMISTRY METHOD 12/16/2024 2:30 PM [facility] BUN 19 5 - 25 mg/dL LAB CHEMISTRY METHOD 12/16/2024 2:30 PM [facility] Creatinine 0.83 0.70 - 1.30 mg/dL LAB CHEMISTRY METHOD 12/16/2024 2:30 PM [facility] eGFR 91 >=60 mL/min/1. 73m2 LAB CHEMISTRY METHOD 12/16/2024 2:30 PM [facility] Comment:Calculation based on the Chronic Kidney Disease Epidemiology Collaboration (CKD-EPI) equation refit without adjustment for race. BUN/Creatinine Ratio 22.9 LAB CHEMISTRY METHOD 12/16/2024 2:30 PM [facility] Calcium 9.5 8.5 - 10.5 mg/dL LAB CHEMISTRY METHOD 12/16/2024 2:30 PM [facility] AST (SGOT) 13 10 - 42 unit/L LAB CHEMISTRY METHOD 12/16/2024 2:30 PM [facility] ALT (SGPT) 16 10 - 60 unit/L LAB CHEMISTRY METHOD 12/16/2024 2:30 PM [facility] Alkaline Phosphatase 72 42 - 121 unit/L LAB CHEMISTRY METHOD 12/16/2024 2:30 PM EDT [facility] Total Protein 6.7 6.0 - 8.0 g/dL LAB CHEMISTRY METHOD 12/16/2024 2:30 PM EDT [facility] Albumin 3.4 3.2 - 5.0 g/dL LAB CHEMISTRY METHOD 12/16/2024 2:30 PM EDT [facility] Total Bilirubin 0.3 0.0 - 1.4 mg/dL LAB CHEMISTRY METHOD 12/16/2024 2:30 PM EDT [facility] Blood Venous blood specimen / Unknown Venipuncture / Unknown 12/16/2024 9:05 AM EDT 12/16/2024 11:37 AM EDT us Gris Rousseau MD LAB BLOOD ORDERABLES Fin al Result [facility] [address] [place] [address], * (ABNORMAL) Complete blood count (12/16/2024 9:05 AM EDT) WBC 5.5 4.8 - 10.8 K/mcL LAB HEMETOLOGY METHOD 12/16/2024 1:25 PM EDT [facility] RBC 4.10(L) 4.50 - 5.50 M/mcL LAB HEMETOLOGY METHOD 12/16/2024 1:25 PM EDT [facility] Hemoglobin 12.0(L) 13.5 - 17.5 g/dL LAB HEMETOLOGY METHOD 12/16/2024 1:25 PM EDT [facility] Hematocrit 37.2(L) 42.0 - 54.0 % LAB HEMETOLOGY METHOD 12/16/2024 1:25 PM EDT [facility] MCV 90.1 79.0 - 98.0 FL LAB HEMETOLOGY METHOD 12/16/2024 1:25 PM EDT [facility] MCH 29.1 27.0 - 32.0 pcg LAB HEMETOLOGY METHOD 12/16/2024 1:25 PM EDT [facility] MCHC 32.3 32.0 - 37.0 g/dL LAB HEMETOLOGY METHOD 12/16/2024 1:25 PM EDT [facility] RDW 15.4(H) 11.0 - 15.0 % LAB HEMETOLOGY METHOD 12/16/2024 1:25 PM EDT [facility] Platelets 203 130 - 400 K/mcL LAB HEMETOLOGY METHOD 12/16/2024 1:25 PM EDT [facility] MPV 10.2 7.0 - 11.0 FL LAB HEMETOLOGY METHOD 12/16/2024 1:25 PM EDT [facility] NRBC 0.0 <1.0 % LAB HEMETOLOGY METHOD 12/16/2024 1:25 PM EDT [facility] NRBC Absolute 0.00 <0.10 K/mcL LAB HEMETOLOGY METHOD 12/16/2024 1:25 PM EDT [facility] Blood Venous blood specimen / Unknown Venipuncture / Unknown 12/16/2024 9:05 AM EDT 12/16/2024 11:37 AM EDT us Gris Rousseau MD LAB BLOOD ORDERABLES Fin al Result [facility] [address] [place] [address], documented in this encounter Visit Diagnoses Diagnosis Type 2 diabetes mellitus without complications (CMS/HCC V24, CMS/HCC V28) documented in this encounter Additional Health Concerns Infection Onset Date Last Indicated Resolved Time ESBL 01/15/2025 01/16/2025 C. difficile Rule-Out 03/28/2025 03/27/20252024 10:26 AM EDT documented as of this encounter Care Teams Preassembler And Inspector Relationship Specialty Start Date End Date Zay Bhagat MD [address] [place] [address] PCP - General 05/30/23 documented as of this encounter
--- OUTSIDE RECORDS SUMMARY | 2025-04-30 15:22 | XMS_ITS | Encounter Summary ---
Author Organization [facility] Address [address] [facility] [address] [place] [address] Phone Care Team Providers Care Elevators Inspector Name Role Phone Benjamin Meadows MD Primary Care Provider [phone] Encounter Details Date Type Department Care Team (Latest Contact Info) Description 05/15/2023 Transcribe Orders [facility] Specimen Processing [address] [place] [address] Denis García MD [address] [place], [place] [phone] [email or web address] et Hypomagnesemia (Primary Dx) Social History Tobacco Use Types Packs/Day Years Used Date Smoking Tobacco: Never Smokeless Tobacco: Never Alcohol Use Standard Drinks/Week Comments No 0 (1 standard drink = 0.6 oz pur e alcohol) Education Answer Date Recorded Are you interested in more education? Not on farideh e 12/30/2022 Are you concerned about learning? Not on file 12/30/2022 No 12/30/2022 No 12/30/2022 Digital Access Answer Date Recorded No 01/28/2023 No 01/28/2023 No 01/28/2023 Reliable internet access at home? Not on file 01/28/2023 Device with a working camera? Not on file Sex and Gender Information Value Date Recorded Sex Assigned at Male 04/19/2018 12:47 PM EDT Legal Sex Male 12:34 PM EDT Gender Identity Male 04/19/2018 12:47 PM EDT Sexual Orientation Not on file documented as of this encounter Plan of Treatment Not on file documented as of this encounter Visit Diagnoses Diagnosis Hypomagnesemia- Primary Disorders of magnesium metabolism documented in this encounter Care Teams Elevators Inspector Relationship Specialty Start Date End Date Benjamin Meadows MD [address] [place] [id number] PCP - General Internal Medicine 04/19/18 documented as of this encounter Additional Source Comments The information contained in this document represents components of the legal health record. It is not the complete legal health record.[facility]
--- OUTSIDE RECORDS SUMMARY | 2025-04-30 15:22 | XMS_ITS | Encounter Summary ---
Author Organization [facility] Address [address] [place] [address] Care Team Providers Care Press Cutter Name Role Phone Zay Bhagat MD Primary Care Provider Encounter Details Date Type Department Care Team (Late st Contact Info) Description 04/02/2025 Lab Requisition [facility] - Main Lab 299 [facility] [place] [address] Gris Rousseau MD [address] [address] Altered mental status, unspecified Social History Tobacco Use Types Packs/Day [...] Associated Diagnosis Comments COMPLETE BLOOD COUNT Routine 04/02/2025 8:47 AM EDT Altered mental status, unspecified COMPREHENSIVE METABOLIC PANEL Routine 04/02/2025 8:47 AM EDT Altered mental status, unspecified documented in this encounter Results * (ABNORMAL) Comprehensive metabolic panel (04/02/2025 8:47 AM EDT) Sodium 141 133 - 145 mmol/L LAB CHEMISTRY METHOD 04/02/2025 11:15 AM EDT [facility] ([facility]) [facility] Potassium 4.0 3.5 - 5.5 mmol/L LAB CHEMISTRY METHOD 04/02/2025 11:15 AM [facility] LAB Chloride 106 96 - 110 mmol/L LAB CHEMISTRY METHOD 04/02/2025 11:15 AM [facility] CO2 29 21 - 32 mmol/L LAB CHEMISTRY METHOD 04/02/2025 11:15 AM [facility] Anion Gap 6 3 - 11 LAB CHEMISTRY METHOD 04/02/2025 11:15 AM [facility] LAB Glucose 125(H) 70 - 100 mg/dL LAB CHEMISTRY METHOD 04/02/2025 11:15 AM [facility] BUN 17 5 - 25 mg/dL LAB CHEMISTRY METHOD 04/02/2025 11:15 AM [facility] LAB Creatinine 0.90 0.70 - 1.30 mg/dL LAB CHEMISTRY METHOD 04/02/2025 11:15 AM [facility] LAB eGFR 89 >=60 mL/min/1. 73m2 LAB CHEMISTRY METHOD 04/02/2025 11:15 AM [facility] LAB Comment:Calculation based on the Chronic Kidney Disease Epidemiology Collaboration (CKD-EPI) equation refit without adjustment for race. BUN/Creatinine Ratio 18.9 LAB CHEMISTRY METHOD 04/02/2025 11:15 AM [facility] LAB Calcium 9.2 8.5 - 10.5 mg/dL LAB CHEMISTRY METHOD 04/02/2025 11:15 AM [facility] LAB AST (SGOT) 18 10 - 42 unit/L LAB CHEMISTRY METHOD 04/02/2025 11:15 AM [facility] ALT (SGPT) 18 10 - 60 unit/L LAB CHEMISTRY METHOD 04/02/2025 11:15 AM [facility] LAB Alkaline Phosphatase 107 42 - 121 unit/L LAB CHEMISTRY METHOD 04/02/2025 11:15 AM [facility] Total Protein 6.7 6.0 - 8.0 g/dL LAB CHEMISTRY METHOD 04/02/2025 11:15 AM EDT [facility] Albumin 3.4 3.2 - 5.0 g/dL LAB CHEMISTRY METHOD 04/02/2025 11:15 AM EDT [facility] Total Bilirubin 0.5 0.0 - 1.4 mg/dL LAB CHEMISTRY METHOD 04/02/2025 11:15 AM EDT [facility] Blood Venous blood specimen / Unknown Venipuncture / Unknown 04/02/2025 8:47 AM EDT 04/02/2025 9:24 AM EDT us Gris Rousseau MD LAB BLOOD ORDERABLES Fin al Result [facility] [address] [place] [address], * (ABNORMAL) Complete blood count (04/02/2025 8:47 AM EDT) WBC 7.2 4.8 - 10.8 K/mcL LAB HEMETOLOGY METHOD 04/02/2025 10:20 AM [facility] RBC 4.40(L) 4.50 - 5.50 M/mcL LAB HEMETOLOGY METHOD 04/02/2025 10:20 AM [facility] Hemoglobin 12.7(L) 13.5 - 17.5 g/dL LAB HEMETOLOGY METHOD 04/02/2025 10:20 AM EDT [facility] Hematocrit 37.3(L) 42.0 - 54.0 % LAB HEMETOLOGY METHOD 04/02/2025 10:20 AM EDT [facility] MCV 84.2 79.0 - 98.0 FL LAB HEMETOLOGY METHOD 04/02/2025 10:20 AM [facility] MCH 28.7 27.0 - 32.0 pcg LAB HEMETOLOGY METHOD 04/02/2025 10:20 AM EDT [facility] MCHC 34.0 32.0 - 37.0 g/dL LAB HEMETOLOGY METHOD 04/02/2025 10:20 AM EDT [facility] RDW 14.6 11.0 - 15.0 % LAB HEMETOLOGY METHOD 04/02/2025 10:20 AM EDT [facility] Platelets 190 130 - 400 K/mcL LAB HEMETOLOGY METHOD 04/02/2025 10:20 AM EDT [facility] MPV 10.2 7.0 - 11.0 FL LAB HEMETOLOGY METHOD 04/02/2025 10:20 AM EDT [facility] NRBC 0.0 <1.0 % LAB HEMETOLOGY METHOD 04/02/2025 10:20 AM EDT [facility] NRBC Absolute 0.00 <0.10 K/mcL LAB HEMETOLOGY METHOD 04/02/2025 10:20 AM EDT [facility] Blood Venous blood specimen / Unknown Venipuncture / Unknown 04/02/2025 8:47 AM EDT 04/02/2025 9:24 AM EDT us Gris Rousseau MD LAB BLOOD ORDERABLES Fin al Result [facility] [address] [place] [address], documented in this encounter Visit Diagnoses Diagnosis Altered mental status, unspecified documented in this encounter Additional Health Concerns Infection Onset Date Last Indicated Resolved Time ESBL 01/15/2025 01/16/2025 documented as of this encounter Care Teams Press Cutter Relationship Specialty Start Date End Date Zay Bhagat MD [address] [place] [address] PCP - General 05/30/23 documented as of this encounter
--- OUTSIDE RECORDS SUMMARY | 2025-04-30 15:22 | XMS_ITS | Encounter Summary ---
Author Organization [facility] Address [address] [place] [address] Care Team Providers Care Room Server Name Role Phone Zay Bhagat MD Primary Care Provider Encounter Details Date Type Department Care Team (Late st Contact Info) Description 09/13/[address] [facility] - Main Lab [address] [place] [address] Gris Rousseau MD [address] [address] Essential (primary) hypertension Social History Tobacco Use [...] METHOD 09/16/2024 11:01 AM EST [facility] ([facility] Potassium 4.1 3.5 - 5.5 mmol/L LAB CHEMISTRY METHOD 09/16/2024 11:01 AM [facility] Chloride 102 96 - 110 mmol/L LAB CHEMISTRY METHOD 09/16/2024 11:01 AM [facility] CO2 29 21 - 32 mmol/L LAB CHEMISTRY METHOD 09/16/2024 11:01 AM [facility] Anion Gap 6 3 - 11 LAB CHEMISTRY METHOD 09/16/2024 11:01 AM [facility] Glucose 68(L) 70 - 100 mg/dL LAB CHEMISTRY METHOD 09/16/2024 11:01 AM [facility] BUN 19 5 - 25 mg/dL LAB CHEMISTRY METHOD 09/16/2024 11:01 AM [facility] Creatinine 0.86 0.70 - 1.30 mg/dL LAB CHEMISTRY METHOD 09/16/2024 11:01 AM [facility] eGFR 90 >=60 mL/min/1. 73m2 LAB CHEMISTRY METHOD 09/16/2024 11:01 AM [facility] LAB Comment:Calculation based on the Chronic Kidney Disease Epidemiology Collaboration (CKD-EPI) equation refit without adjustment for race. BUN/Creatinine Ratio 22.1 LAB CHEMISTRY METHOD 09/16/2024 11:01 AM [facility] Calcium 9.7 8.5 - 10.5 mg/dL LAB CHEMISTRY METHOD 09/16/2024 11:01 AM [facility] AST (SGOT) 14 10 - 42 unit/L LAB CHEMISTRY METHOD 09/16/2024 11:01 AM [facility] ALT (SGPT) 20 10 - 60 unit/L LAB CHEMISTRY METHOD 09/16/2024 11:01 AM [facility] Alkaline Phosphatase 70 42 - 121 unit/L LAB CHEMISTRY METHOD 09/16/2024 11:01 AM [facility] Total Protein 7.4 6.0 - 8.0 g/dL LAB CHEMISTRY METHOD 09/16/2024 11:[address] [facility] Albumin 3.6 3.2 - 5.0 g/dL LAB CHEMISTRY METHOD 09/16/2024 11:01 AM [facility] Total Bilirubin 0.4 0.0 - 1.4 mg/dL LAB CHEMISTRY METHOD 09/16/2024 11:01 AM [facility] Blood Venous blood specimen / Unknown Venipuncture / Unknown 09/16/2024 7:12 AM EST 09/16/2024 9:34 AM EST us Gris Rousseau MD LAB BLOOD ORDERABLES Fin al Result [facility] [address] [place] [address], [place] [phone] * (ABNORMAL) Complete blood count (09/16/2024 7:12 AM EST) WBC 8.7 4.8 - 10.8 K/mcL LAB HEMETOLOGY METHOD 09/16/2024 10:30 AM [facility] RBC 4.50 4.50 - 5.50 M/mcL LAB HEMETOLOGY METHOD 09/16/2024 10:30 AM [facility] Hemoglobin 13.8 13.5 - 17.5 g/dL LAB HEMETOLOGY METHOD 09/16/2024 10:30 AM [facility] Hematocrit 41.5(L) 42.0 - 54.0 % LAB HEMETOLOGY METHOD 09/16/2024 10:30 AM [facility] MCV 91.4 79.0 - 98.0 FL LAB HEMETOLOGY METHOD 09/16/2024 10:30 AM [facility] MCH 30.4 27.0 - 32.0 pcg LAB HEMETOLOGY METHOD 09/16/2024 10:30 AM [facility] MCHC 33.3 32.0 - 37.0 g/dL LAB HEMETOLOGY METHOD 09/16/2024 10:[address] [facility] RDW 12.2 11.0 - 15.0 % LAB HEMETOLOGY METHOD 09/16/2024 10:30 AM [facility] Platelets 351 130 - 400 K/mcL LAB HEMETOLOGY METHOD 09/16/2024 10:[address] [facility] MPV 8.9 7.0 - 11.0 FL LAB HEMETOLOGY METHOD 09/16/2024 10:[address] [facility] NRBC 0.0 <1.0 % LAB HEMETOLOGY METHOD 09/16/2024 10:30 AM [facility] NRBC Absolute 0.00 <0.10 K/mcL LAB HEMETOLOGY METHOD 09/16/2024 10:30 AM [facility] Blood Venous blood specimen / Unknown Venipuncture / Unknown 09/16/2024 7:12 AM EST 09/16/2024 9:36 AM EST Gris Rousseau MD LAB BLOOD ORDERABLES Fin al Result [facility] [address] [place] [address], documented in this encounter Visit Diagnoses Diagnosis Essential (primary) hypertension Unspecified essential hypertension documented in this encounter Additional Health Concerns Infection Onset Date Last Indicated Resolved Time Respiratory Rule-Out 11/08/2024 11/08/20242 025 4:47 PM EST Influenza 11/08/2024 11/08/2024 12/02/2024 7:05 PM EDT ESBL 01/15/2025 01/16/2025 C. difficile Rule-Out 03/28/2025 03/27/20252024 10:26 AM EDT documented as of this encounter Care Teams Room Server Relationship Specialty Start Date End Date Zay Bhagat MD [address] [place] [address] PCP - General 05/30/23 documented as of this encounter
--- OUTSIDE RECORDS SUMMARY | 2025-04-30 15:22 | XMS_ITS | Encounter Summary ---
Author Organization [facility] Address [address] [place] [address] Care Team Providers Care Dust Box Worker Name Role Phone Zay Bhagat MD Primary Care Provider Encounter Details Date Type Department Care Team (Late st Contact Info) Description 04/11/2025 Lab Requisition [facility] - Main Lab 299 [facility] [place] [address] Gris Rousseau MD [address] [id number] Essential (primary) hypertension; Chronic kidney disease, unspecified Social History Tobacco Use Types Packs/Day [...] Associated Diagnosis Comments COMPLETE BLOOD COUNT Routine 04/11/2025 7:21 AM EDT Essential (primary) hypertension Chronic kidney disease, unspecified COMPREHENSIVE METABOLIC PANEL Routine 04/11/2025 7:21 AM EDT Essential (primary) hypertension Chronic kidney disease, unspecified documented in this encounter Results * (ABNORMAL) Complete blood count (04/11/2025 7:21 AM EDT) WBC 10.2 4.8 - 10.8 K/[facility] LAB HEMETOLOGY METHOD 04/11/2025 10:30 AM [facility] LAB RBC 4.30(L) 4.50 - 5.50 M/mcL LAB HEMETOLOGY METHOD 04/11/2025 10:30 AM [facility] LAB Hemoglobin 12.0(L) 13.5 - 17.5 g/dL LAB HEMETOLOGY METHOD 04/11/2025 10:30 AM [facility] LAB Hematocrit 36.5(L) 42.0 - 54.0 % LAB HEMETOLOGY METHOD 04/11/2025 10:30 AM [facility] LAB MCV 85.7 79.0 - 98.0 FL LAB HEMETOLOGY METHOD 04/11/2025 10:30 AM [facility] LAB MCH 28.2 27.0 - 32.0 pcg LAB HEMETOLOGY METHOD 04/11/2025 10:30 AM [facility] LAB MCHC 32.9 32.0 - 37.0 g/dL LAB HEMETOLOGY METHOD 04/11/2025 10:30 AM [facility] LAB RDW 15.1(H) 11.0 - 15.0 % LAB HEMETOLOGY METHOD 04/11/2025 10:30 AM [facility] LAB Platelets 188 130 - 400 K/mcL LAB HEMETOLOGY METHOD 04/11/2025 10:30 AM [facility] LAB MPV 10.1 7.0 - 11.0 FL LAB HEMETOLOGY METHOD 04/11/2025 10:30 AM [facility] LAB NRBC 0.0 <1.0 % LAB HEMETOLOGY METHOD 04/11/2025 10:30 AM [facility] LAB NRBC Absolute 0.00 <0.10 K/mcL LAB HEMETOLOGY METHOD 04/11/2025 10:30 AM [facility] LAB Blood Venous blood specimen / Unknown Venipuncture / Unknown 04/11/2025 7:21 AM EDT 04/11/2025 8:45 AM EDT us Gris Rousseau MD LAB BLOOD ORDERABLES Fin al Result [facility] [address] [place] [address], * (ABNORMAL) Comprehensive metabolic panel (04/11/2025 7:21 AM EDT) Pathologist [facility] Sodium 138 133 - 145 mmol/L LAB CHEMISTRY METHOD 04/11/2025 9:33 AM [facility] Potassium 3.8 3.5 - 5.5 mmol/L LAB CHEMISTRY METHOD 04/11/2025 9:33 AM [facility] Chloride 104 96 - 110 mmol/L LAB CHEMISTRY METHOD 04/11/2025 9:33 AM [facility] CO2 30 21 - 32 mmol/L LAB CHEMISTRY METHOD 04/11/2025 9:33 AM [facility] Anion Gap 4 3 - 11 LAB CHEMISTRY METHOD 04/11/2025 9:33 AM [facility] Glucose 110(H) 70 - 100 mg/dL LAB CHEMISTRY METHOD 04/11/2025 9:33 AM [facility] BUN 15 5 - 25 mg/dL LAB CHEMISTRY METHOD 04/11/2025 9:33 AM [facility] Creatinine 0.90 0.70 - 1.30 mg/dL LAB CHEMISTRY METHOD 04/11/2025 9:33 AM [facility] LAB eGFR 89 >=60 mL/min/1. 73m2 LAB CHEMISTRY METHOD 04/11/2025 9:33 AM [facility] LAB Comment:Calculation based on the Chronic Kidney Disease Epidemiology Collaboration (CKD-EPI) equation refit without adjustment for race. BUN/Creatinine Ratio 16.7 LAB CHEMISTRY METHOD 04/11/2025 9:33 AM [facility] Calcium 9.0 8.5 - 10.5 mg/dL LAB CHEMISTRY METHOD 04/11/2025 9:33 AM [facility] AST (SGOT) 12 10 - 42 unit/L LAB CHEMISTRY METHOD 04/11/2025 9:33 AM [facility] ALT (SGPT) 14 10 - 60 unit/L LAB CHEMISTRY METHOD 04/11/2025 9:33 AM [facility] Alkaline Phosphatase 91 42 - 121 unit/L LAB CHEMISTRY METHOD 04/11/2025 9:33 AM [facility] Total Protein 6.6 6.0 - 8.0 g/dL LAB CHEMISTRY METHOD 04/11/2025 9:33 AM [facility] Albumin 3.2 3.2 - 5.0 g/dL LAB CHEMISTRY METHOD 04/11/2025 9:33 AM [facility] Total Bilirubin 0.6 0.0 - 1.4 mg/dL LAB CHEMISTRY METHOD 04/11/2025 9:33 AM [facility] Blood Venous blood specimen / Unknown Venipuncture / Unknown 04/11/2025 7:21 AM EDT 04/11/2025 8:45 AM EDT us Gris Rousseau MD LAB BLOOD ORDERABLES Fin al Result [facility] [address] [place] [address], documented in this encounter Visit Diagnoses Diagnosis Essential (primary) hypertension Unspecified essential hypertension Chronic kidney disease, unspecified documented in this encounter Additional Health Concerns Infection Onset Date Last Indicated Resolved Time ESBL 01/15/2025 01/16/2025 documented as of this encounter Care Teams Dust Box Worker Relationship Specialty Start Date End Date Zay Bhagat MD [address] [place] [address] PCP - General 05/30/23 documented as of this encounter
--- OUTSIDE RECORDS SUMMARY | 2025-04-30 15:22 | XMS_ITS | Encounter Summary ---
Author Organization [facility] Address [address] [place] [address] Care Team Providers Care Diagnostics Tech Name Role Phone Zay Bhagat MD Primary Care Provider Encounter Details Date Type Department Care Team (Late st Contact Info) Description 12/01/2024 Lab Requisition [facility] - Main Lab [address] [facility] [place] [address] Gris Rousseau MD [address] [address] Type 2 diabetes mellitus without complications (CMS/HCC [...] LAB CHEMISTRY METHOD 12/02/2024 12:09 PM EDT [facility] Potassium 4.6 3.5 - 5.5 mmol/L LAB CHEMISTRY METHOD 12/02/2024 12:09 PM [facility] Chloride 105 96 - 110 mmol/L LAB CHEMISTRY METHOD 12/02/2024 12:09 PM [facility] CO2 28 21 - 32 mmol/L LAB CHEMISTRY METHOD 12/02/2024 12:09 PM [facility] Anion Gap 7 3 - 11 LAB CHEMISTRY METHOD 12/02/2024 12:09 PM [facility] Glucose 93 70 - 100 mg/dL LAB CHEMISTRY METHOD 12/02/2024 12:09 PM [facility] BUN 18 5 - 25 mg/dL LAB CHEMISTRY METHOD 12/02/2024 12:09 PM [facility] Creatinine 0.80 0.70 - 1.30 mg/dL LAB CHEMISTRY METHOD 12/02/2024 12:09 PM [facility] eGFR 92 >=60 mL/min/1. 73m2 LAB CHEMISTRY METHOD 12/02/2024 12:09 PM [facility] Comment:Calculation based on the Chronic Kidney Disease Epidemiology Collaboration (CKD-EPI) equation refit without adjustment for race. BUN/Creatinine Ratio 22.5 LAB CHEMISTRY METHOD 12/02/2024 12:09 PM [facility] Calcium 9.5 8.5 - 10.5 mg/dL LAB CHEMISTRY METHOD 12/02/2024 12:09 PM [facility] AST (SGOT) 12 10 - 42 unit/L LAB CHEMISTRY METHOD 12/02/2024 12:09 PM [facility] ALT (SGPT) 18 10 - 60 unit/L LAB CHEMISTRY METHOD 12/02/2024 12:09 PM [facility] Alkaline Phosphatase 72 42 - 121 unit/L LAB CHEMISTRY METHOD 12/02/2024 12:09 PM [facility] Total Protein 6.6 6.0 - 8.0 g/dL LAB CHEMISTRY METHOD 12/02/2024 12:09 PM EDT [facility] Albumin 3.2 3.2 - 5.0 g/dL LAB CHEMISTRY METHOD 12/02/2024 12:09 PM EDT [facility] Total Bilirubin 0.6 0.0 - 1.4 mg/dL LAB CHEMISTRY METHOD 12/02/2024 12:09 PM EDT [facility] Blood Venous blood specimen / Unknown Venipuncture / Unknown 12/02/2024 7:12 AM EDT 12/02/2024 10:30 AM EDT us Gris Rousseau MD LAB BLOOD ORDERABLES Fin al Result [facility] [address] [place] [address], * (ABNORMAL) Complete blood count (12/02/2024 7:12 AM EDT) WBC 7.2 4.8 - 10.8 K/mcL LAB HEMETOLOGY METHOD 12/02/2024 11:20 AM [facility] RBC 4.30(L) 4.50 - 5.50 M/mcL LAB HEMETOLOGY METHOD 12/02/2024 11:20 AM T [facility] Hemoglobin 12.6(L) 13.5 - 17.5 g/dL LAB HEMETOLOGY METHOD 12/02/2024 11:20 AM T [facility] Hematocrit 38.4(L) 42.0 - 54.0 % LAB HEMETOLOGY METHOD 12/02/2024 11:20 AM T [facility] MCV 88.7 79.0 - 98.0 FL LAB HEMETOLOGY METHOD 12/02/2024 11:20 AM T [facility] MCH 29.1 27.0 - 32.0 pcg LAB HEMETOLOGY METHOD 12/02/2024 11:20 AM EDT [facility] MCHC 32.8 32.0 - 37.0 g/dL LAB HEMETOLOGY METHOD 12/02/2024 11:20 AM EDT [facility] RDW 15.1(H) 11.0 - 15.0 % LAB HEMETOLOGY METHOD 12/02/2024 11:20 AM EDT [facility] Platelets 211 130 - 400 K/mcL LAB HEMETOLOGY METHOD 12/02/2024 11:20 AM EDT [facility] MPV 10.4 7.0 - 11.0 FL LAB HEMETOLOGY METHOD 12/02/2024 11:20 AM EDT [facility] NRBC 0.0 <1.0 % LAB HEMETOLOGY METHOD 12/02/2024 11:20 AM EDT [facility] NRBC Absolute 0.00 <0.10 K/mcL LAB HEMETOLOGY METHOD 12/02/2024 11:20 AM EDT [facility] Blood Venous blood specimen / Unknown Venipuncture / Unknown 12/02/2024 7:12 AM EDT 12/02/2024 10:30 AM EDT us Gris Rousseau MD LAB BLOOD ORDERABLES Fin al Result [facility] [address] [place] [address], documented in this encounter Visit Diagnoses Diagnosis Type 2 diabetes mellitus without complications (CMS/HCC V24, CMS/HCC V28) documented in this encounter Additional Health Concerns Infection Onset Date Last Indicated Resolved Time Influenza 11/08/2024 11/08/2024 12/02/2024 7:05 PM EDT ESBL 01/15/2025 01/16/2025 C. difficile Rule-Out 03/28/2025 03/27/20252024 10:26 AM EDT documented as of this encounter Care Teams Diagnostics Tech Relationship Specialty Start Date End Date Zay Bhagat MD [address] [place] [address] PCP - General 05/30/23 documented as of this encounter
--- OUTSIDE RECORDS SUMMARY | 2025-04-30 15:22 | XMS_ITS | Encounter Summary ---
Author Organization [facility] Address [address] [place] [address] Care Team Providers Care Hvac Installer Name Role Phone Zay Bhagat MD Primary Care Provider Encounter Details Date Type Department Care Team (Late st Contact Info) Description 01/26/2025 Lab Requisition [facility] - Main Lab 299 [facility] [place] [address] Gris Rousseau MD [address] [phone] Sepsis, unspecified organism (CMS/HCC V24, CMS/HCC V28) [...] Associated Diagnosis Comments COMPLETE BLOOD COUNT Routine 01/28/2025 9:29 AM EDT Sepsis, unspecified organism (CMS/HCC V24, CMS/HCC V28) CREATINE KINASE Routine 01/28/2025 9:29 AM EDT Sepsis, unspecified organism (CMS/HCC V24, CMS/HCC V28) COMPREHENSIVE METABOLIC PANEL Routine 01/28/2025 9:29 AM EDT Sepsis, unspecified organism (CMS/HCC V24, CMS/HCC V28) documented in this encounter Results * Creatine kinase (01/28/2025 9:29 AM EDT) Pathologist [facility] Total CK 33 22 - 269 unit/L LAB CHEMISTRY METHOD 01/28/2025 12:25 PM [facility] Blood Venous blood specimen / Unknown Venipuncture / Unknown 01/28/2025 9:29 AM EDT 01/28/2025 10:33 AM EDT us Gris Rousseau MD LAB BLOOD ORDERABLES Fin al Result [facility] LAB [address] [place] [address], * (ABNORMAL) Comprehensive metabolic panel (01/28/2025 9:29 AM EDT) [facility] Sodium 142 133 - 145 mmol/L LAB CHEMISTRY METHOD 01/28/2025 12:33 PM [facility] Potassium 4.6 3.5 - 5.5 mmol/L LAB CHEMISTRY METHOD 01/28/2025 12:33 PM [facility] Chloride 107 96 - 110 mmol/L LAB CHEMISTRY METHOD 01/28/2025 12:33 PM [facility] CO2 26 21 - 32 mmol/L LAB CHEMISTRY METHOD 01/28/2025 12:33 PM [facility] Anion Gap 9 3 - 11 LAB CHEMISTRY METHOD 01/28/2025 12:33 PM [facility] Glucose 176(H) 70 - 100 mg/dL LAB CHEMISTRY METHOD 01/28/2025 12:33 PM [facility] BUN 18 5 - 25 mg/dL LAB CHEMISTRY METHOD 01/28/2025 12:33 PM [facility] Creatinine 1.22 0.70 - 1.30 mg/dL LAB CHEMISTRY METHOD 01/28/2025 12:33 PM [facility] eGFR 62 >=60 mL/min/1. 73m2 LAB CHEMISTRY METHOD 01/28/2025 12:33 PM [facility] Comment:Calculation based on the Chronic Kidney Disease Epidemiology Collaboration (CKD-EPI) equation refit without adjustment for race. BUN/Creatinine Ratio 14.8 LAB CHEMISTRY METHOD 01/28/2025 12:33 PM [facility] Calcium 9.1 8.5 - 10.5 mg/dL LAB CHEMISTRY METHOD 01/28/2025 12:33 PM [facility] AST (SGOT) 24 10 - 42 unit/L LAB CHEMISTRY METHOD 01/28/2025 12:33 PM [facility] ALT (SGPT) 29 10 - 60 unit/L LAB CHEMISTRY METHOD 01/28/2025 12:33 PM [facility] Alkaline Phosphatase 86 42 - 121 unit/L LAB CHEMISTRY METHOD 01/28/2025 12:33 PM [facility] Total Protein 6.7 6.0 - 8.0 g/dL LAB CHEMISTRY METHOD 01/28/2025 12:33 PM [facility] Albumin 3.1(L) 3.2 - 5.0 g/dL LAB CHEMISTRY METHOD 01/28/2025 12:33 PM [facility] Total Bilirubin 0.4 0.0 - 1.4 mg/dL LAB CHEMISTRY METHOD 01/28/2025 12:33 PM [facility] Blood Venous blood specimen / Unknown Venipuncture / Unknown 01/28/2025 9:29 AM EDT 01/28/2025 10:33 AM EDT us Gris Rousseau MD LAB BLOOD ORDERABLES Fin al Result [facility] [address] [place] [address], * (ABNORMAL) Complete blood count (01/28/2025 9:29 AM EDT) [facility] WBC 9.3 4.8 - 10.8 K/mcL LAB HEMETOLOGY METHOD 01/28/2025 11:39 AM [facility] RBC 4.20(L) 4.50 - 5.50 M/mcL LAB HEMETOLOGY METHOD 01/28/2025 11:39 AM [facility] Hemoglobin 11.9(L) 13.5 - 17.5 g/dL LAB HEMETOLOGY METHOD 01/28/2025 11:39 AM [facility] Hematocrit 37.7(L) 42.0 - 54.0 % LAB HEMETOLOGY METHOD 01/28/2025 11:39 AM [facility] MCV 90.2 79.0 - 98.0 FL LAB HEMETOLOGY METHOD 01/28/2025 11:39 AM [facility] MCH 28.5 27.0 - 32.0 pcg LAB HEMETOLOGY METHOD 01/28/2025 11:39 AM [facility] MCHC 31.6(L) 32.0 - 37.0 g/dL LAB HEMETOLOGY METHOD 01/28/2025 11:39 AM [facility] RDW 14.0 11.0 - 15.0 % LAB HEMETOLOGY METHOD 01/28/2025 11:39 AM [facility] Platelets 417(H) 130 - 400 K/mcL LAB HEMETOLOGY METHOD 01/28/2025 11:39 AM [facility] MPV 9.2 7.0 - 11.0 FL LAB HEMETOLOGY METHOD 01/28/2025 11:39 AM [facility] NRBC 0.0 <1.0 % LAB HEMETOLOGY METHOD 01/28/2025 11:39 AM [facility] NRBC Absolute 0.00 <0.10 K/mcL LAB HEMETOLOGY METHOD 01/28/2025 11:39 AM EDT [facility] Blood Venous blood specimen / Unknown Venipuncture / Unknown 01/28/2025 9:29 AM EDT 01/28/2025 10:33 AM EDT us Gris Rousseau MD LAB BLOOD ORDERABLES Fin al Result [facility] [address] [place] [address], documented in this encounter Visit Diagnoses Diagnosis Sepsis, unspecified organism (CMS/HCC V24, CMS/[facility] V28) documented in this encounter Additional Health Concerns Infection Onset Date Last Indicated Resolved Time ESBL 01/15/2025 01/16/2025 C. difficile Rule-Out 03/28/2025 03/27/20252024 10:26 AM EDT documented as of this encounter Care Teams Hvac Installer Relationship Specialty Start Date End Date Zay Bhagat MD [address] [place] [address] PCP - General 05/30/23 documented as of this encounter
--- OUTSIDE RECORDS SUMMARY | 2025-04-30 15:22 | XMS_ITS | Encounter Summary ---
Author Organization [facility] Address [address] [place] [address] Care Team Providers Care Pet Resort Concierge Name Role Phone Zay Bhagat MD Primary Care Provider Encounter Details Date Type Department Care Team (Late st Contact Info) Description 01/22/2025 Lab Requisition [facility] - Main Lab 299 [facility] [place] [address] Gris Rousseau MD [address] [phone] Type 2 diabetes mellitus without complications (CMS/HCC V24, CMS/HCC V28); Sepsis, unspecified organism (CMS/HCC V24, CMS/HCC V28); Extended spectrum beta lactamase (ESBL) resistance Social History Tobacco Use Types Packs/Day Years [...] Associated Diagnosis Comments COMPLETE BLOOD COUNT Routine 01/22/2025 5:05 AM EDT Type 2 diabetes mellitus without complications (CMS/HCC V24, CMS/HCC V28) Sepsis, unspecified organism (CMS/HCC V24, CMS/HCC V28) Extended spectrum beta lactamase (ESBL) resistance COMPREHENSIVE METABOLIC PANEL Routine 01/22/2025 5:05 AM EDT Type 2 diabetes mellitus without complications (CMS/HCC V24, CMS/HCC V28) Sepsis, unspecified organism ([employer] [facility] [employer] V24, [employer] [facility] [employer] V28) Extended spectrum beta lactamase (ESBL) resistance documented in this encounter Results * (ABNORMAL) Comprehensive metabolic panel (01/22/2025 5:05 AM EDT) Sodium 137 133 - 145 mmol/L LAB CHEMISTRY METHOD 01/22/2025 10:17 AM [facility] Potassium 3.8 3.5 - 5.5 mmol/L LAB CHEMISTRY METHOD 01/22/2025 10:17 AM [facility] Chloride 105 96 - 110 mmol/L LAB CHEMISTRY METHOD 01/22/2025 10:17 AM [facility] CO2 26 21 - 32 mmol/L LAB CHEMISTRY METHOD 01/22/2025 10:17 AM [facility] Anion Gap 6 3 - 11 LAB CHEMISTRY METHOD 01/22/2025 10:17 AM [facility] Glucose 205(H) 70 - 100 mg/dL LAB CHEMISTRY METHOD 01/22/2025 10:17 AM [facility] BUN 14 5 - 25 mg/dL LAB CHEMISTRY METHOD 01/22/2025 10:17 AM [facility] Creatinine 0.85 0.70 - 1.30 mg/dL LAB CHEMISTRY METHOD 01/22/2025 10:17 AM [facility] eGFR 91 >=60 mL/min/1. 73m2 LAB CHEMISTRY METHOD 01/22/2025 10:17 AM [facility] Comment:Calculation based on the Chronic Kidney Disease Epidemiology Collaboration (CKD-EPI) equation refit without adjustment for race. BUN/Creatinine Ratio 16.5 LAB CHEMISTRY METHOD 01/22/2025 10:17 AM [facility] Calcium 8.6 8.5 - 10.5 mg/dL LAB CHEMISTRY METHOD 01/22/2025 10:17 AM [facility] AST (SGOT) 12 10 - 42 unit/L LAB CHEMISTRY METHOD 01/22/2025 10:17 AM EDT [facility] ALT (SGPT) 32 10 - 60 unit/L LAB CHEMISTRY METHOD 01/22/2025 10:17 AM EDT [facility] Alkaline Phosphatase 78 42 - 121 unit/L LAB CHEMISTRY METHOD 01/22/2025 10:17 AM EDT [facility] Total Protein 6.2 6.0 - 8.0 g/dL LAB CHEMISTRY METHOD 01/22/2025 10:17 AM T [facility] Albumin 2.7(L) 3.2 - 5.0 g/dL LAB CHEMISTRY METHOD 01/22/2025 10:17 AM [facility] Total Bilirubin 0.3 0.0 - 1.4 mg/dL LAB CHEMISTRY METHOD 01/22/2025 10:17 AM T [facility] Blood Venous blood specimen / Unknown Venipuncture / Unknown 01/22/2025 5:05 AM EDT 01/22/2025 8:59 AM EDT us Gris Rousseau MD LAB BLOOD ORDERABLES Fin al Result [facility] [address] [place] [address], * (ABNORMAL) Complete blood count (01/22/2025 5:05 AM EDT) WBC 9.4 4.8 - 10.8 K/mcL LAB HEMETOLOGY METHOD 01/22/2025 9:39 AM EDT [facility] RBC 3.90(L) 4.50 - 5.50 M/mcL LAB HEMETOLOGY METHOD 01/22/2025 9:39 AM EDT [facility] Hemoglobin 11.3(L) 13.5 - 17.5 g/dL LAB HEMETOLOGY METHOD 01/22/2025 9:39 AM EDT [facility] Hematocrit 34.2(L) 42.0 - 54.0 % LAB HEMETOLOGY METHOD 01/22/2025 9:39 AM EDT [facility] MCV 87.7 79.0 - 98.0 FL LAB HEMETOLOGY METHOD 01/22/2025 9:39 AM EDT [facility] MCH 29.0 27.0 - 32.0 pcg LAB HEMETOLOGY METHOD 01/22/2025 9:39 AM EDT [facility] MCHC 33.0 32.0 - 37.0 g/dL LAB [facility]OLOGY [facility] RDW 14.3 11.0 - 15.0 % LAB HEMETOLOGY METHOD 01/22/2025 9:39 AM T [facility] Platelets 285 130 - 400 K/mcL LAB HEMETOLOGY METHOD 01/22/2025 9:39 AM EDT [facility] MPV 9.4 7.0 - 11.0 FL LAB HEMETOLOGY METHOD [facility]/22[facility]2025 9[facility] NRBC 0.0 <1.0 % LAB HEMETOLOGY METHOD 01/22/2025 9:39 AM EDT [facility] NRBC Absolute 0.00 <0.10 K/mcL LAB HEMETOLOGY METHOD 01/22/2025 9:39 AM [facility] Blood Venous blood specimen / Unknown Venipuncture / Unknown 01/22/2025 5:05 AM EDT 01/22/2025 8:59 AM EDT us Gris Rousseau MD LAB BLOOD ORDERABLES Fin al Result [facility] [address] [place] [address], documented in this encounter Visit Diagnoses Diagnosis Type 2 diabetes mellitus without complications ([facility] V24, [employer] V28) Sepsis, unspecified organism ([employer] [facility] [employer] V24, [employer] [facility] [employer] V28) Extended spectrum beta lactamase (ESBL) resistance documented in this encounter Additional Health Concerns Infection Onset Date Last Indicated Resolved Time ESBL 01/15/2025 01/16/2025 C. difficile Rule-Out 03/28/2025 03/27/20252024 10:26 AM EDT documented as of this encounter Care Teams Pet Resort Concierge Relationship Specialty Start Date End Date Zay Bhagat MD [address] [place] [address] PCP - General 05/30/23 documented as of this encounter
--- OUTSIDE RECORDS SUMMARY | 2025-04-30 15:22 | XMS_ITS | Encounter Summary ---
Author Organization [facility] Address [address] [place] [address] Care Team Providers Care Lace Weaver Name Role Phone Zay Bhagat MD Primary Care Provider Encounter Details Date Type Department Care Team (Late st Contact Info) Description 12/07/2024 Lab Requisition [facility] - Main Lab 299 [facility] [place] [address] Gris Rousseau MD [address] [phone] Type 2 diabetes mellitus without complications (CMS/HCC [...] mmol/L LAB CHEMISTRY METHOD 12/09/2024 1:02 PM [facility] Potassium 4.5 3.5 - 5.5 mmol/L LAB CHEMISTRY METHOD 12/09/2024 1:02 PM [facility] Chloride 106 96 - 110 mmol/L LAB CHEMISTRY METHOD 12/09/2024 1:02 PM [facility] CO2 27 21 - 32 mmol/L LAB CHEMISTRY METHOD 12/09/2024 1:02 PM [facility] Anion Gap 7 3 - 11 LAB CHEMISTRY METHOD 12/09/2024 1:02 PM [facility] Glucose 155(H) 70 - 100 mg/dL LAB CHEMISTRY METHOD 12/09/2024 1:02 PM [facility] BUN 16 5 - 25 mg/dL LAB CHEMISTRY METHOD 12/09/2024 1:02 PM [facility] Creatinine 0.79 0.70 - 1.30 mg/dL LAB CHEMISTRY METHOD 12/09/2024 1:02 [facility] eGFR 93 >=60 mL/min/1. 73m2 LAB CHEMISTRY METHOD 12/09/2024 1:02 PM [facility] Comment:Calculation based on the Chronic Kidney Disease Epidemiology Collaboration (CKD-EPI) equation refit without adjustment for race. BUN/Creatinine Ratio 20.3 LAB CHEMISTRY METHOD 12/09/2024 1:02 PM [facility] Calcium 9.4 8.5 - 10.5 mg/dL LAB CHEMISTRY METHOD 12/09/2024 1:02 [facility] AST (SGOT) 18 10 - 42 unit/L LAB CHEMISTRY METHOD 12/09/2024 1:02 [facility] ALT (SGPT) 15 10 - 60 unit/L LAB CHEMISTRY METHOD 12/09/2024 1:02 PM [facility] Alkaline Phosphatase 70 42 - 121 unit/L LAB CHEMISTRY METHOD [facility] Total Protein 6.4 6.0 - 8.0 g/dL LAB CHEMISTRY METHOD 12/09/2024 1:02 PM [facility] Albumin 3.4 3.2 - 5.0 g/dL LAB CHEMISTRY METHOD 12/09/2024 1:02 PM [facility] Total Bilirubin 0.5 0.0 - 1.4 mg/dL LAB CHEMISTRY METHOD 12/09/2024 1:02 PM [facility] Blood Venous blood specimen / Unknown 12/09/2024 8:55 AM EDT 12/09/2024 10:59 AM EDT us Gris Rousseau MD LAB BLOOD ORDERABLES Fin al Result [facility] [address] [place] [address], * (ABNORMAL) Complete blood count (12/09/2024 8:55 AM EDT) WBC 7.7 4.8 - 10.8 K/mcL LAB HEMETOLOGY METHOD 12/09/2024 12:29 PM [facility] RBC 4.10(L) 4.50 - 5.50 M/mcL LAB HEMETOLOGY METHOD 12/09/2024 12:29 PM [facility] Hemoglobin 11.9(L) 13.5 - 17.5 g/dL LAB HEMETOLOGY METHOD 12/09/2024 12:29 PM [facility] Hematocrit 36.0(L) 42.0 - 54.0 % LAB HEMETOLOGY METHOD 12/09/2024 12:29 PM [facility] MCV 87.4 79.0 - 98.0 FL LAB HEMETOLOGY METHOD 12/09/2024 12:29 PM [facility] MCH 28.9 27.0 - 32.0 pcg LAB HEMETOLOGY METHOD 12/09/2024 12:29 PM EDT [facility] MCHC 33.1 32.0 - 37.0 g/dL LAB HEMETOLOGY METHOD 12/09/2024 12:29 PM EDT [facility] RDW 15.1(H) 11.0 - 15.0 % LAB HEMETOLOGY METHOD 12/09/2024 12:29 PM EDT [facility] Platelets 179 130 - 400 K/mcL LAB HEMETOLOGY METHOD 12/09/2024 12:29 PM EDT [facility] MPV 9.9 7.0 - 11.0 FL LAB HEMETOLOGY METHOD 12/09/2024 12:29 PM EDT [facility] NRBC 0.0 <1.0 % LAB HEMETOLOGY METHOD 12/09/2024 12:29 PM EDT [facility] NRBC Absolute 0.00 <0.10 K/mcL LAB HEMETOLOGY METHOD 12/09/2024 12:29 PM EDT [facility] Blood Venous blood specimen / Unknown 12/09/2024 8:55 AM EDT 12/09/2024 10:59 AM EDT us Gris Rousseau MD LAB BLOOD ORDERABLES Fin al Result [facility] [address] [place] [address], documented in this encounter Visit Diagnoses Diagnosis Type 2 diabetes mellitus without complications (CMS/HCC V24, CMS/HCC V28) documented in this encounter Additional Health Concerns Infection Onset Date Last Indicated Resolved Time ESBL 01/15/2025 01/16/2025 C. difficile Rule-Out 03/28/2025 03/27/20252024 10:26 AM EDT documented as of this encounter Care Teams Lace Weaver Relationship Specialty Start Date End Date LeolaZay goodrich MD [address] [place] [address] PCP - General 05/30/23 documented as of this encounter
--- OUTSIDE RECORDS SUMMARY | 2025-04-30 15:22 | XMS_ITS | Encounter Summary ---
Author Organization [facility] Address [address] [place] [address] Care Team Providers Care Die Maintenance Technician Name Role Phone Zay Bhagat MD Primary Care Provider Encounter Details Date Type Department Care Team (Late st Contact Info) Description 09/26/2024 Lab Requisition [facility] - Main Lab 299 [facility] [place] [address] Gris Rousseau MD [address] [phone] Type 2 diabetes mellitus without complications (CMS/HCC [...] mmol/L LAB CHEMISTRY METHOD 09/26/2024 9:18 AM [facility] Potassium 4.0 3.5 - 5.5 mmol/L LAB CHEMISTRY METHOD 09/26/2024 9:18 AM [facility] Chloride 97 96 - 110 mmol/L LAB CHEMISTRY METHOD 09/26/2024 9:18 AM [facility] CO2 29 21 - 32 mmol/L LAB CHEMISTRY METHOD 09/26/2024 9:18 AM [facility] Anion Gap 5 3 - 11 LAB CHEMISTRY METHOD 09/26/2024 9:18 AM [facility] Glucose 117(H) 70 - 100 mg/dL LAB CHEMISTRY METHOD 09/26/2024 9:18 AM [facility] BUN 17 5 - 25 mg/dL LAB CHEMISTRY METHOD 09/26/2024 9:18 AM [facility] Creatinine 0.82 0.70 - 1.30 mg/dL LAB CHEMISTRY METHOD 09/26/2024 9:18 AM [facility] eGFR 92 >=60 mL/min/1. 73m2 LAB CHEMISTRY METHOD 09/26/2024 9:18 AM [facility] Comment:Calculation based on the Chronic Kidney Disease Epidemiology Collaboration (CKD-EPI) equation refit without adjustment for race. BUN/Creatinine Ratio 20.7 LAB CHEMISTRY METHOD 09/26/2024 9:18 AM [facility] Calcium 9.0 8.5 - 10.5 mg/dL LAB CHEMISTRY METHOD 09/26/2024 9:18 AM [facility] AST (SGOT) 16 10 - 42 unit/L LAB CHEMISTRY METHOD 09/26/2024 9:18 AM [facility] ALT (SGPT) 19 10 - 60 unit/L LAB CHEMISTRY METHOD 09/26/2024 9:18 AM [facility] Alkaline Phosphatase 59 42 - 121 unit/L LAB CHEMISTRY METHOD 09/26/2024 9:18 AM [facility] Total Protein 6.5 6.0 - 8.0 g/dL LAB CHEMISTRY METHOD 09/26/2024 9:18 AM [facility] Albumin 3.5 3.2 - 5.0 g/dL LAB CHEMISTRY METHOD 09/26/2024 9:18 AM [facility] Total Bilirubin 0.6 0.0 - 1.4 mg/dL LAB CHEMISTRY METHOD 09/26/2024 9:18 AM [facility] Blood Venous blood specimen / Unknown Venipuncture / Unknown 09/26/2024 6:01 AM EST 09/26/2024 8:29 AM EST us Gris Rousseau MD LAB BLOOD ORDERABLES Fin al Result [facility] [address] [place] [address], * (ABNORMAL) Complete blood count (09/26/2024 6:01 AM EST) WBC 6.5 4.8 - 10.8 K/mcL LAB HEMETOLOGY METHOD 09/26/2024 8:56 AM [facility] RBC 4.10(L) 4.50 - 5.50 M/mcL LAB HEMETOLOGY METHOD 09/26/2024 8:56 AM [facility] Hemoglobin 12.2(L) 13.5 - 17.5 g/dL LAB HEMETOLOGY METHOD 09/26/2024 8:56 AM [facility] Hematocrit 35.7(L) 42.0 - 54.0 % LAB HEMETOLOGY METHOD 09/26/2024 8:56 AM [facility] MCV 87.9 79.0 - 98.0 FL LAB HEMETOLOGY METHOD 09/26/2024 8:56 AM [facility] MCH 30.0 27.0 - 32.0 pcg LAB HEMETOLOGY METHOD 09/26/2024 8:56 AM EST [facility] MCHC 34.2 32.0 - 37.0 g/dL LAB HEMETOLOGY METHOD 09/26/2024 8:56 AM [facility] RDW 12.2 11.0 - 15.0 % LAB HEMETOLOGY METHOD 09/26/2024 8:56 AM [facility] Platelets 246 130 - 400 K/mcL LAB HEMETOLOGY METHOD 09/26/2024 8:56 AM [facility] MPV 9.5 7.0 - 11.0 FL LAB HEMETOLOGY METHOD 09/26/2024 8:56 AM [facility] NRBC 0.0 <1.0 % LAB HEMETOLOGY METHOD 09/26/2024 8:56 AM [facility] NRBC Absolute 0.00 <0.10 K/mcL LAB HEMETOLOGY METHOD 09/26/2024 8:56 AM [facility] Blood Venous blood specimen / Unknown Venipuncture / Unknown 09/26/2024 6:01 AM EST 09/26/2024 8:29 AM EST us Gris Rousseau MD LAB BLOOD ORDERABLES Fin al Result [facility] [address] [place] [address], documented in this encounter Visit Diagnoses Diagnosis Type 2 diabetes mellitus without complications (CMS/HCC V24, CMS/HCC V28) documented in this encounter Additional Health Concerns Infection Onset Date Last Indicated Resolved Time Respiratory Rule-Out 11/08/2024 11/08/2024 025 4:47 PM EST Influenza 11/08/2024 11/08/2024 12/02/2024 7:05 PM EDT ESBL 01/15/2025 01/16/2025 C. difficile Rule-Out 03/28/2025 03/27/202503/28/ 2025 10:26 AM EDT documented as of this encounter Care Teams Die Maintenance Technician Relationship Specialty Start Date End Date Zay Bhagat MD [address] [place] [address] PCP - General 05/30/23 documented as of this encounter
--- OUTSIDE RECORDS SUMMARY | 2025-04-30 15:22 | XMS_ITS | Encounter Summary ---
Author Organization [facility] Address [address] [place] [address] Care Team Providers Care Diesel Engine Mechanic Apprentice Name Role Phone Zay Bhagat MD Primary Care Provider Encounter Details Date Type Department Care Team (Late st Contact Info) Description 10/04/[address] [facility] - Main Lab 299 [facility] [place] [address] Gris Rousseau MD [address] [phone] Type 2 diabetes mellitus without complications (CMS/HCC [...] documented as of this encounter Care Teams Diesel Engine Mechanic Apprentice Relationship Specialty Start Date End Date Zay Bhagat MD [address] [place] [address] PCP - General 05/30/23 documented as of this encounter
--- OUTSIDE RECORDS SUMMARY | 2025-04-30 15:22 | XMS_ITS | Encounter Summary ---
Author Organization [facility] Address [address] [place] [address] Care Team Providers Care Addiction Nurse Name Role Phone Zay Bhagat MD Primary Care Provider Encounter Details Date Type Department Care Team (Late st Contact Info) Description 01/30/2025 Lab Requisition [facility] - Main Lab [address] [place] [address] Gris Rousseau MD [address] [id number] Dehydration Social History Tobacco Use Types Packs/Day Years [...] Procedure Name Priority Date/Time Associated Diagnosis Comments BASIC METABOLIC PANEL Routine 01/30/2025 5:24 AM EDT Dehydration documented in this encounter Results * (ABNORMAL) Basic metabolic panel (01/30/2025 5:24 AM EDT) Sodium 139 133 - 145 mmol/L LAB CHEMISTRY METHOD 01/30/2025 11:05 AM EDT [facility] Potassium 4.6 3.5 - 5.5 mmol/L LAB CHEMISTRY METHOD 01/30/2025 11:05 AM EDT [facility] Chloride 106 96 - 110 mmol/L LAB CHEMISTRY METHOD 01/30/2025 11:05 AM [facility] CO2 24 21 - 32 mmol/L LAB CHEMISTRY METHOD 01/30/2025 11:05 AM [facility] Anion Gap 9 3 - 11 LAB CHEMISTRY METHOD 01/30/2025 11:05 AM [facility] Glucose 65(L) 70 - 100 mg/dL LAB CHEMISTRY METHOD 01/30/2025 11:05 AM [facility] BUN 21 5 - 25 mg/dL LAB CHEMISTRY METHOD 01/30/2025 11:05 AM [facility] Creatinine 0.93 0.70 - 1.30 mg/dL LAB CHEMISTRY METHOD 01/30/2025 11:05 AM [facility] eGFR 86 >=60 mL/min/1. 73m2 LAB CHEMISTRY METHOD 01/30/2025 11:05 AM [facility] Comment:Calculation based on the Chronic Kidney Disease Epidemiology Collaboration (CKD-EPI) equation refit without adjustment for race. BUN/Creatinine Ratio 22.6 LAB CHEMISTRY METHOD 01/30/2025 11:05 AM [facility] Calcium 9.1 8.5 - 10.5 mg/dL LAB CHEMISTRY METHOD 01/30/2025 11:05 AM [facility] Blood Venous blood specimen / Unknown Venipuncture / Unknown 01/30/2025 5:24 AM EDT 01/30/2025 9:55 AM EDT us Gris Rousseau MD LAB BLOOD ORDERABLES Fin al Result [facility] [address] [place] [address], documented in this encounter Visit Diagnoses Diagnosis Dehydration documented in this encounter Additional Health Concerns Infection Onset Date Last Indicated Resolved Time ESBL 01/15/2025 01/16/2025 C. difficile Rule-Out 03/28/2025 03/27/20252024 10:26 AM EDT documented as of this encounter Care Teams Addiction Nurse Relationship Specialty Start Date End Date aZy Bhagat MD [address] [place] [address] PCP - General 05/30/23 documented as of this encounter
--- OUTSIDE RECORDS SUMMARY | 2025-04-30 15:22 | XMS_ITS | Encounter Summary ---
Author Organization [facility] Address [address] [place] [address] Care Team Providers Care Clinical Unit Coordinator Name Role Phone Zay Bhagat MD Primary Care Provider Encounter Details Date Type Department Care Team (Late st Contact Info) Description 11/08/2024 Lab Requisition [facility] - Main Lab [address] [facility] [place] [address] Loren Rothman NP [address] [place] [address] Chronic cough Social History Tobacco [...] Procedure Name Priority Date/Time Associated Diagnosis Comments [id number], RSV, FLU A AND B QUALITATIVE RT-PCR, LOCAL REFERENCE LAB Routine 11/08/2024 12:00 AM EST Chronic cough documented in this encounter Results * (ABNORMAL) [id number], RSV, Influenza A and B qualitative RT-PCR (11/08/2024 12:00 AM EST) SARS COV-2 Not Detected Not Detected LAB MOLECULAR DIAGNOSTICS METHOD 11/08/2024 4:47 PM EST [facility] Comment: Disclaimer: The manner in [...] for Healthcare Providers can be found at: https://www.fda.gov/media/038618/download Fact sheet for Patients can be found at: https://www.fda.gov/media/452757/download Influenza A PCR Detected(A ) Not Detected LAB MOLECULAR DIAGNOSTICS METHOD 11/08/2024 4:47 PM EST [facility] Comment:This patient is posi tive for influenza A. If the patient is admitted, please order the Respiratory Virus Panel PCR (Epic ID: [id number]) so our lab can subtype the influenza A, per CDC recommendations. Influenza B PCR Not Detected Not Detected LAB MOLECULAR DIAGNOSTICS METHOD 11/08/2024 4:47 PM EST [facility] RSV PCR Not Detected Not Detected LAB MOLECULAR DIAGNOSTICS METHOD 11/08/2024 4:47 PM EST [facility] Swab Nasopharyngeal structure / Unknown Non-blood Collection / Unknown 11/08/2024 11/08/2024 2:14 PM EST Loren Rothman [employer] LAB MICROBIOLOGY - GENERAL ORDER BRANDIE Final Result [facility] [address] [place] [address], documented in this encounter Visit Diagnoses Diagnosis Chronic cough Cough documented in this encounter Additional Health Concerns Infection Onset Date Last Indicated Resolved Time Respiratory Rule-Out 11/08/2024 11/08/20242 025 4:47 PM EST Influenza 11/08/2024 11/08/2024 12/02/2024 7:05 PM EDT ESBL 01/15/2025 01/16/2025 C. difficile Rule-Out 03/28/2025 03/27/20252024 10:26 AM EDT documented as of this encounter Care Teams Clinical Unit Coordinator Relationship Specialty Start Date End Date Zay Bhagat MD [address] [place] [address] PCP - General 05/30/23 documented as of this encounter
--- OUTSIDE RECORDS SUMMARY | 2025-04-30 15:22 | XMS_ITS | Encounter Summary ---
Author Organization [facility] Address [address] [facility] [address] [place] [address] Phone Care Team Providers Care Pediatric Nurse Name Role Phone Benjamin Meadows MD Primary Care Provider [phone] Encounter Details Date Type Department Care Team (Late st Contact Info) Description 05/15/2023 Transcribe Orders [facility] [address] [place] [address] Juancho Clark MD [address] [facility] [place] [address] [email or web address] Bacteremia (Primary Dx) Social History Tobacco Use Types [...] as of this encounter Visit Diagnoses Diagnosis Bacteremia- Primary documented in this encounter Care Teams Pediatric Nurse Relationship Specialty Start Date End Date Benjamin Meadows MD [address] [place] [id number] PCP - General Internal Medicine 04/19/18 documented as of this encounter Additional Source Comments The information contained in this document represents components of the legal health record. It is not the complete legal health record.[facility]
--- OUTSIDE RECORDS SUMMARY | 2025-04-30 15:22 | XMS_ITS ---
Author Organization [facility] Care Team Providers Care Camera Repairer Name Role Phone Danielle Rodriguez Unavailable Unavailable Jeannette Jordan Unavailable Unavailable Benjamin Peralta Unavailable Unavailable Gris Rousseau Unavailable Unavailable Tatianna, China Unavailable Unavailable Webrodger, Josefina Unavailable Unavailable Soja, Lisa Unavailable Unavailable Thompson, Linh Unavailable Unavailable [place], Christie Unavailable Unavailable Lusas, Eva Unavailable Unavailable Stacey, Liyah Unavailable Unavailable Jorgito, Dee Unavailable Unavail able Rosalee MOORE, Marcelino Haq Unavailable Unavailable Gilmar, Ines Unavailable Unavailable Lord, Ashtyn Unavailable Unavailable [place], Lisa Unavailable Unavailable Mol, Lisa Unavailable Unavailable Zepke, Denise Unavailable Unavailable Heuser, [place] Unavailable Unavailable Cantin, Arlin Unavailable Unavailable Grippin, Elly Unavailable Unavailable Sharmaine, Aleida Unavailable Unavailable Stephan, Aleida Unavailable Unavailable Planeta, Gretchen Unavailable Unavailable Mccolmeg, Leyla Unavailable Unavailable Nicole, Su Unavailable Unavailable Shirokaja, Zakia Unavailable Unavailable Viri, Precious Unavailable Unavailable Dedra, Caleb Unavailable Unavailable Stephan, Loren Unavailable Unavailable Zachery, Devin Unavailable Unavailable Colon-Cartegna, Nathalia Unavailable Unavailabl e Allergies and adverse reactions Code CodeSystem Substance Reaction Severity StartDate Concern Status 6754 RXNORM Meperidine Unknown 08/15/2024 active Care Team Name Role Address Phone Organization Dates Gris Rousseau PCP [address] [facility] [address], [place], [address], [facility] (Office): : [facility] 09/25/2024 - present Danielle Rodriguez [address] [facility] [facility] [address], [place], [address], [facility] (Office): : [facility] 09/25/2024 - [place], [address], [place] (Office): : [facility] 09/25/2024 - present Benjamin [place], [facility] 09/25/2024 - present China Campuzano [place] (Office[place] : [facility] 09/25/2024 - present Josefina Quezada [address], [place], [address], [place] (Office): : [facility] 09/25/2024 - present Lisa Parker [address] [facility] [address], [place], [address], [place] (Office): [phone] (Fax): [phone] [facility] 09/25/2024 - present Linh Thompson [address] [facility] [address], [place], [address], [place] (Office): : [facility] 09/25/2024 - present Christie Pereira [address] [facility] [address], [place], [address], [place] (Office): : [facility] 09/25/2024 - present Eva Fuentes [address] [address], [address], [place] (Office): [facility] 09/25/2024 - present Liyah Ibarra [address], [place], [address], [facility] (Office): : [facility] 09/25/2024 - present Dee Bull [address] [facility] [address], [place], [address], [place] (Office): : [phone] [facility] 09/25/2024 - present Marcelino Turk NP [address] [facility] [address] [address], [place] (Office): [facility] 09/25/2024 - present Ines Schafer [address] [facility], [place], [address], [place] (Office): : [phone] [facility] 09/25/2024 - [place], [address], [place] (Office): [facility] 09/25/2024 - present Lisa Garcia [address], [place], [address], [place] (Office): : [facility] 09/25/2024 - present Lisa Obando [place], [facility] 09/25/2024 - present Denise Thapa [place], [facility] 09/25/2024 - present Albania Kelley [address], [place], [address], [place] (Office): : [phone] [facility] 09/25/2024 - present Arlin Ya[place]ez [place], [facility] 09/25/2024 - present Elly Delacruz [address] , [place], [address], [place] (Office): : [facility] 09/25/2024 - present Aleida Schmid [address] [facility] [address], [place], [address], [place] (Office): : [phone] [facility] 09/25/2024 - present Aleida Rothman [address], [place], [address], [place] (Office): : [phone] [facility] 09/25/2024 - present Gretchen [place], [place] (Office): : [facility] 09/25/2024 - present Leyla Hoover [address], [place], [address], [place] (Office): : [phone] [facility] 09/25/2024 - present Su Rivera [address], [place], [address], [place] (Office): [phone] (Fax): [phone] [facility] 09/25/2024 - present Zakia Brandon [facility] 09/25/2024 - present Precious Meredith [address], [place], [address], [place] (Office): : [facility] 09/25/2024 - present Caleb Colmenares [address], [place], [address], [facility] (Office): : [facility] 09/25/2024 - present Loren Rothman [address] [facility] [address], [place], [address], [facility] (Office): [facility] 09/25/2024 - present Devin Bingham [facility] 09/25/2024 - present Nathalia Colon-Cartegna [address] [place] [address], [place], [address], [facility] (Office): [phone] [facility] 09/25/2024 - present Imaging Narrative Note Date Imaging Narrative No te 04/04/2025 XRAY ABDOMEN 1 VIEW (KUB)See NoteFINDINGS: The bowel gas pattern is nonobstructive. No dilated loops of bowel. Colonic fecal residual is noted. Soft tissues appear without significant abnormality. colonic fecal residual may correlate with clinical constipation.CONCLUSION: Nonobstructive bowel gas pattern.ELECTRONICALLY SIGNED BY RUDI FAJARDO M.D. 04/04/2025 6:04:12 PM EDT.Reason for Study: R10.13 EPIGASTRIC PAINPrincipal Result Qualitative Researcher: RUDI FAJARDO ([id number])[employer] Room: DANIELLE RIVERA (MCRUZ)Asset Protection Assistant [employer] Room: DOMINICK Orozco Section Goals Description Status Target Date Gadiel will be free from di scomfort or adverse reactions related to blood thinner use through the review date. Active 08/04/20 Gadiel will maintain or dev elop clean and intact skin by the review date. Active 08/04/2025 Gadiel is encouraged daily to attend programs, he prefers room visits and independent activities in the comfort of his room, He will continue to be open to room visits and independent leisure 3x a week through next review date. Active 08/04/2025 Gadiel will be able to comm unicate basic needs on a daily basis through the review date. Active 08/04/2025 Gadiel will be free from co mplications of cardiac problems through the review date. Active 08/04/2025 Gadiel will be free from s/ sx of pain, or will express/exhibit relief of pain after administration of ordered meds, alternative comfort measures. Active 08/04/2025 Gadiel will be free of falls through the review date. Active 08/04/2025 Gadiel will be/remain free from catheter-related trauma through review date. Active 08/04/2025 Gadiel will be/remain free of psychotropic drug related complications, including movement disorder, discomfort, hypotension, gait disturbance, constipation/impaction or cognitive/behavioral impairment through review date. Active 10/05/2024 Gadiel will demonstrate adj ustment to usp placement by/through review date. Active 08/04/2025 Gadiel will have improved m ood state (happier, calmer appearance, no s/sx of depression, anxiety or sadness) through the review date. Active 08/04/2025 Gadiel will have no complic ations related to diabetes through the review date. Active 08/04/2025 Gadiel will have no indicat ions of psychosocial well being problem by/through review date. Active 08/04/2025 Gadiel will improve current level of function in self-care ADLs through the review date. Gadiel will be able to reach PLOF goals set by therapy. Active 08/04/2025 Gadiel will increase level of mobility by participating in scheduled therapy through the next review date. Active 2024 Gadiel will maintain curren t level of function through the review date. Active 08/04/2025 Gadiel will maintain curren t level of mobility through review date. Active 08/04/2025 Gadiel will maintain lab va lues within acceptable parameters per MD through review date. Active 08/04/2025 Gadiel will maintain optima l status and quality of life within limitations imposed by neurological deficits through review date. Active 08/04/2025 Gadiel will not develop com plications or permanent loss of mobility related to fracture through review date. Active 09/2024 Gadiel will not have an int erruption in normal activities due to pain through the review date. Active 08/04/2025 Gadiel will remain free fro m discomfort, complications or s/sx related to gastro-intestinal alterations through review date. Active 08/04/2025 Gadiel will remain free fro m pain or at a level of discomfort acceptable to him (where on pain scale) through the review date. Active 08/04/2025 Gadiel will remain free fro m skin breakdown due to incontinence and brief use through the review date. Active 08/04/2025 Gadiel will remain free of complications related to immobility, including contractures, thrombus formation, skin-breakdown, fall related injury through the next review date. Active Gadiel will show no s/sx of Urinary infection through review date. Active 08/04/2025 Gopis advanced directive s are in effect and their wishes will be carried out throughout the next review. Active 08/04/2025 Gopis diet will be appro priate to meet his needs AEB po's >/=75% of meals and fluids provided with no significant weight change, no s/s dehydration and BMI remain >24.0. 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 Active 2024 Gopis risk for septicemi a will be minimized/prevented via prompt recognition and treatment of symptoms of UTI through the review date. Active 08/04/2025 Gopis safety will be maintained through the review date. Active 08/04/2025 Functional Status Code Name Recorded Time Value Entered By Chair/lla-yl-csmhw transfer 04/30/2025 Independent cweldon Eating 04/29/2025 Setup or clean-up assistance mlopez Lower body dressing 04/30/2025 Not assessed cweldon Lying to sitting on side of bed 04/30/2025 Independent cweldon Oral hygiene 04/30/2025 Not assessed cweldon Personal hygiene 04/30/2025 Not assessed cweldon Roll left and right 04/30/2025 Independent cweldon Shower/bathe self 04/30/2025 Not assessed cweldon Sit to lying 04/30/2025 Not assessed cweldon Sit to stand 04/30/2025 Not assessed cweldon Toilet transfer 04/30/2025 Not assessed cweldon Toileting hygiene 04/30/2025 Independent cweldon Upper body dressing 04/29/2025 Substantial/maximal a ssistance mlopez Wheel 150 feet 04/30/2025 Not assessed cweldon Wheel 50 feet with two turns 04/30/2025 Not assessed cweldon Immunizations Immunization Status Vaccine Details Vaccine Code CodeSystem Date Notes Pneumococcal conjugate PCV20, polysaccharide [id number] conjugate, adjuvant, PF completed Pneumococcal conjugate vaccine 20-valent (PCV20), polysaccharide [id number] conjugate, adjuvant, preservative free 216 CVX created date: 08/15/2024 administer ed date: 07/10/2023 Comirnaty Booster completed SARS-COV-2 (COVID-19) vaccine, mRNA, spike protein, LNP, preservative free, damien-sucrose, 30 mcg/0.3 mL dose lotNumber: [id number] expiry: 06/14/2025 309 CVX created date: 03/10/2025 consent date: 03/06/2025 administer ed date: 03/06/2025 Educated by on 03/10/2025 Medications Section Medication Name Status Code CodeSystem Dose Route Frequency Admin Type Sig Text Start Date End Date Glutose 45 Gel 40 % active 129675 7 RXNORM 1 dose Oral as needed PRN Give 1 dose by mouth every 08 hours as needed for hypogl ycemic protoc ol Give one tube PO/SL if FSBS <50 and able to swallo w PRN. Rechec k FSBS 10 minute s after admini strati on and call provid er. 2024 - GlucaGen HypoKit Solution Reconstituted 1 MG active 391801 RXNORM 1 mg Subcuta neous as needed PRN Inject 1 mg subcut aneous ly every 08 hours as needed for hypogl ycemic protoc ol Specia l instru ctions : Glucag en 1 mg hypoki t subcut aneous if FSBS below 60 and unable to swallo w. R echeck FSBS in 10 minute s and update provid er. 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 AND Give 2 tablet by mouth every 6 hours as needed for Fever greate r than 100.0F Total dosage for acetam inophe n and medica tions that contai n acetam inophe n should not exceed 3 grams / 24 hours. 2024 - 009187 RXNORM 2 tablet Oral as needed PRN Give 2 tablet by mouth every 6 hours as needed for Pain Pain Total dosage for acetam inophe n and medica tions that contai n acetam inophe n should not exceed 3 grams / 24 hours. AND Give 2 tablet by mouth every 6 hours as needed for Fever greate r than 100.0F Total dosage for acetam inophe n and medica tions that contai n acetam inophe n should not exceed 3 grams / 24 hours. 2024 - Insulin Lispro Injection Solution 100 UNIT/ML active 438589 RXNORM n/a n/a Subcuta neous before meals Routine Inject as per kristi solorzano scale: if 201 - 250 = 4 U < 70 contac t provid er; 251 - 300 = 6 U; 301 - 350 = 8 U; 351 - 399 = 10 U >400 contac t Provid er, subcut aneous ly before meals for Diabet ic 2024 - traZODone HCl Oral Tablet 100 MG active 503995 RXNORM 100 mg Oral at bedtime Routine Give 100 mg by mouth at bedtim e relate d to MAJOR DEPRES SIVE DISORD ER, RECURR ENT, SEVERE WITH PSYCHO TIC SYMPTO MS (F33.3 ) 2024 - Tresiba FlexTouch Subcutaneous Solution Pen-injector 100 UNIT/ML active 085574 6 RXNORM 18 unit Subcuta neous one time a day Routine Inject 18 unit subcut aneous ly one time a day relate d to 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.4 2) 2024 - metFORMIN HCl Oral Tablet 1000 MG active 232265 RXNORM 1000 mg Oral two times a day Routine Give 1000 mg by mouth two times a day for blood glucos e contro l relate d to TYPE 2 DIABET ES [facility] WITH DIABET IC POLYNE UROPAT HY (E11.4 2) 2024 - amLODIPine Besylate Oral Tablet 5 MG active 564720 RXNORM 5 mg Oral in the morning Routine Give [facility] relate d to ESSENT IAL (PRIMA RY) HYPERT ENSION (I10) 2024 - Mirtazapine Oral Tablet 15 MG active 656536 RXNORM 15 mg Oral at bedtime Routine Give 15 mg by mouth at bedtim e relate d to MAJOR DEPRES SIVE DISORD ER, RECURR ENT, SEVERE WITH PSYCHO TIC SYMPTO MS (F33.3 ) 2024 - Tamsulosin HCl Oral Capsule 0.4 MG active 939236 RXNORM 1 capsul e Oral in the morning Routine Give 1 capsul e by mouth in the [facility] relate d to 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 ) 2024 - Icy Hot External Patch active n/a n/a Topical in the morning Routine Apply to right hip topica lly [facility] 2024 - Atorvastatin Calcium Oral Tablet 40 MG active 826385 RXNORM 40 mg Oral in the evening Routine Give 40 mg by mouth in the [facility] choles terol relate d to CEREBR AL INFARC TION, UNSPEC IFIED (I63.9 );ESSE NTIAL (PRIMA RY) HYPERT ENSION (I10) 2024 - Comirnaty Intramuscular Suspension Prefilled Syringe 30 MCG/0.3ML active 368704 1 RXNORM 0.3 ml Intramu scular as needed PRN Inject 0.3 ml intram uscula rly as needed for vaccin e Give x1 2024 - RisperDAL Oral Tablet aborted 1.25 mg Oral one time a day Routine Give 1.25 mg by mouth one time a day relate d to MAJOR DEPRES SIVE DISORD ER, RECURR ENT, SEVERE WITH PSYCHO TIC SYMPTO MS (F33.3 ) for 7 Days AND Give 1 mg by mouth one time a day relate d to MAJOR DEPRES SIVE DISORD ER, RECURR ENT, SEVERE WITH PSYCHO TIC SYMPTO MS (F33.3 ) 04/11 1 mg Oral one time a day Routine Give 1.25 mg by mouth one time a day relate d to MAJOR DEPRES SIVE DISORD ER, RECURR ENT, SEVERE WITH PSYCHO TIC SYMPTO MS (F33.3 ) for 7 Days AND Give 1 mg by mouth one time a day relate d to MAJOR DEPRES SIVE DISORD ER, RECURR ENT, SEVERE WITH PSYCHO TIC SYMPTO MS (F33.3 ) 04/11 traMADol HCl Oral Tablet 50 MG active 770322 RXNORM 25 mg Oral as needed PRN Give 25 mg by mouth every 12 hours as needed for pain 2024 - Pataday Ophthalmic Solution 0.1 % aborted 825364 4 RXNORM 1 drop Ophthal jose c in the morning Routine Instil l 1 drop in both eyes in the mornin g for itchy eyes 04/04 Metoprolol Tartrate Oral Tablet 25 MG active 805392 RXNORM 12.5 mg Oral two times a day Routine Give 12.5 mg by mouth two times a day for HTN Hold for heart rate less than 55 bpm, SBP less than 100 2024 - RisperDAL Oral Tablet 1 MG active 903627 RXNORM 1 mg Oral two times a day Routine Give 1 mg by mouth two times a day relate d to MAJOR DEPRES SIVE DISORD ER, RECURR ENT, SEVERE WITH PSYCHO TIC SYMPTO MS (F33.3 ) 2024 - traMADol HCl Oral Tablet 25 MG complete d 088017 0 RXNORM 1 tablet Oral one time only One Time Only Give 1 tablet by mouth one time only for pain for 1 Day 04/13 Mental Status Section Date Assessment Total Score Description 02/24/2025 BIMS 07 severe cognitiv e impairment CAM 0 No delirium ind icated PHQ-9 00 02/14/2025 BIMS 07 severe cognitiv e impairment CAM 0 No delirium ind icated PHQ-9 00 Problems Problem # Description Date of onset Resolved Date Code CodeSystem Concern Status 1 OBSTRUCTIVE AND REFLUX UROPATHY, UNSPECIFIED 03/21/[address] active 2 FRACTURE OF OTHER PARTS OF PELVIS, SUBSEQUENT ENCOUNTER FOR FRACTURE WITH ROUTINE HEALING 02/09/[address] active 3 UNSTEADINESS ON FEET 01/24/[address] active 4 URINARY TRACT INFECTION, SITE NOT SPECIFIED 01/23/20 25 02/08/[address] completed 5 URINARY TRACT INFECTION, SITE NOT SPECIFIED 01/21/[address] active 6 MUSCLE WEAKNESS (GENERALIZED) 11/14/[address] active 7 OTHER ABNORMALITIES OF GAIT AND MOBILITY 11/14/[address] active 8 UNSPECIFIED LACK OF COORDINATION 11/14/[address] active 9 ACUTE KIDNEY FAILURE, UNSPECIFIED 11/13/19 25 01/13/[address] completed 10 HYPOKALEMIA 11/13/[address] active 11 INFLUENZA DUE TO IDENTIFIED NOVEL INFLUENZA A VIRUS WITH OTHER RESPIRATORY MANIFESTATIONS 11/13/19 25 01/13/[address] completed 12 METABOLIC ENCEPHALOPATHY 11/13/19 25 01/13/[address] completed 13 SEPSIS DUE TO HEMOPHILUS INFLUENZAE 11/13/19 25 01/13/[address] completed 14 TYPE 2 DIABETES MELLITUS WITH HYPOGLYCEMIA WITHOUT COMA 11/13/[address] active 15 ADULT FAILURE TO THRIVE 09/25/[address] active 16 MUSCLE WEAKNESS (GENERALIZED) 09/25/19 25 11/13/[address] completed 17 OTHER ABNORMALITIES OF GAIT AND MOBILITY 09/25/19 25 11/13/[address] completed 18 RETENTION OF URINE, UNSPECIFIED 09/25/[address] active 19 WEAKNESS 09/25/[address] active 20 DYSPHAGIA, OROPHARYNGEAL PHASE 08/21/[address] active 21 ALCOHOL USE, UNSPECIFIED WITH UNSPECIFIED ALCOHOL-INDUCED DISORDER 08/15/[address] active 22 ANEMIA, UNSPECIFIED 08/15/[address] active 23 BENIGN PROSTATIC HYPERPLASIA WITH LOWER URINARY TRACT SYMPTOMS 08/15/[address] active 24 CEREBRAL INFARCTION, UNSPECIFIED 08/15/[address] active 25 CHRONIC SYSTOLIC (CONGESTIVE) HEART FAILURE 08/15/[address] active 26 ENCOUNTER FOR FITTING AND ADJUSTMENT OF URINARY DEVICE 08/15/[address] active 27 ESSENTIAL (PRIMARY) HYPERTENSION 08/15/[address] active 28 LOW BACK PAIN, UNSPECIFIED 08/15/[address] active 29 MAJOR DEPRESSIVE DISORDER, RECURRENT, SEVERE WITH PSYCHOTIC SYMPTOMS 08/15/[address] active 30 MUSCLE WEAKNESS (GENERALIZED) 08/15/20 24 09/26/[address] completed 31 OTHER ABNORMALITIES OF GAIT AND MOBILITY 08/15/20 24 09/26/[address] completed 32 OTHER CHOLELITHIASIS WITHOUT OBSTRUCTION 08/15/[address] active 33 OTHER NONTRAUMATIC INTRACEREBRAL HEMORRHAGE 08/15/[address] active 34 POLYNEUROPATHY, UNSPECIFIED 08/15/[address] active 35 TYPE 2 DIABETES MELLITUS WITH DIABETIC POLYNEUROPATHY 08/15/[address] active 36 UNSTEADINESS ON FEET 08/15/20 24 09/26/[address] completed Reason for Referral No Reasons for Referral Entered Diagnostic Results Result Code Code System Date Test Result Interpretation Reference Range Status Notes 98914-5 LOINC 04/04 XRAY ABDOMEN 1 VIEW (KUB) Completed Result for: IRINA GADIEL ( 1950, M) 03892-5 LOINC 04/04 XRAY ABDOMEN 1 VIEW (KUB) Final XRAY ABDOMEN 1 VIEW (KUB)See NoteFINDINGS: The bowel gas pattern is nonobstructive. No dilated loops of bowel. Colonic fecal residual is noted. Soft tissues appear without significant abnormality. colonic fecal residual may correlate with clinical constipation.CO NCLUSION: Nonobstructive bowel gas pattern.ELECTRO NICALLY SIGNED BY RUDI FAJARDO M.D. 04/04/2025 6:04:12 PM EDT.Reason for Study: R10.13 EPIGASTRIC PAINPrincipal Result Qualitative Researcher: RUDI FAJARDO ([id number])Daria hnician: DANIELLE RIVERA (MCRUZ)Transcri ption Cutter Banana Room: DOMINICK Test Code Code System Name Date 04/04/2025 Social History Social History Observation Description Start Date End Date Code Code System Current Smoking Status Tobacco smoking consumption unknown 129150072 SNOMED CT Sex Assigned At Male 1950 37178-5 [facility] Gender Identity Vital Signs Code Code System Vitals Name Values and Units Timing Information 2339-0 [facility] Blood Sugar Vuipi=111.0 Units=mg/dL 04/30/2025 9279-1 [facility] Respiratory Rate Value=9.0 Units=/mi n 04/30/2025 8462-4 [facility] Blood Pressure-Diastolic Value=83 Un its=mmHg 04/30/2025 8480-6 [facility] Blood Pressure-Systolic Aialk=466 Un its=mmHg 04/30/2025 8310-5 [facility] Body Temperature Value=97.3 Units= F 04/30/2025 8867-4 [facility] Heart rate Value=56.0 Units=/min 78433-1 [facility] [facility] O2 % BldC Oximetry Value=96.0 Units= % 04/30/2025 33415-6 [facility] Pain Level Value=0.0 04/30/2025 00126-9 [facility] Weight Dxfbk=924.8 Units=Lbs 8302-2 [facility] Height Value=68.0 Units=Inches 02/08/2025
--- OUTSIDE RECORDS SUMMARY | 2025-04-30 15:22 | XMS_ITS | Encounter Summary ---
Author Organization [facility] Address [address] [place] [address] Care Team Providers Care Model Set Artist Name Role Phone Zay Bhagat MD Primary Care Provider Reason for Visit * Reason Comments home health cert Encounter Details Date Type Department Care Team (Late st Contact Info) Description 11/27/2024 Billing Patient Not Present Adult Medicine [facility] [address] [place] [id number] Zay Bhagat MD [address] [place], [place] Social History Tobacco Use Types Packs/Day [...] documented as of this encounter Care Teams Model Set Artist Relationship Specialty Start Date End Date Zay Bhagat MD [address] [place], [place] PCP - General 05/30/23 documented as of this encounter
--- OUTSIDE RECORDS SUMMARY | 2025-04-30 15:22 | XMS_ITS | Encounter Summary ---
Author Organization [facility] Address [address] [place] [address] Care Team Providers Care Teacher Physically Impaired Name Role Phone Zay Bhagat MD Primary Care Provider Encounter Details Date Type Department Care Team (Late st Contact Info) Description 01/16/2025 Lab Requisition [facility] - Main Lab [address] [facility] [place] [address] Gris Rousseau MD [address] [phone] Fever, unspecified; Type 2 diabetes mellitus without complications (CMS/HCC V24, CMS/HCC V28); Elevated blood-pressure reading, without diagnosis of hypertension Social History Tobacco Use Types Packs/Day [...] Procedure Name Priority Date/Time Associated Diagnosis Comments BLOOD CULTURE PATHOGENS BY PCR Routine 01/16/2025 6:59 AM EDT Fever, unspecified Type 2 diabetes mellitus without complications (CMS/HCC V24, CMS/HCC V28) Elevated blood-pressure reading, without diagnosis of hypertension CULTURE BLOOD Routine 01/16/2025 6:59 AM EDT Fever, unspecified Type 2 diabetes mellitus without complications (CMS/HCC V24, CMS/HCC V28) Elevated blood-pressure reading, without diagnosis of hypertension documented in this encounter Results * (ABNORMAL) Blood culture pathogens molecular study (01/16/2025 6:59 AM EDT) Escherichia coli Detected (A) Not Detected LAB MICROBIOLOGY METHOD 01/16/2025 9:53 PM EDT [facility] CTX-M Detected (A) Not Detected LAB MICROBIOLOGY METHOD 01/16/2025 9:53 PM EDT [facility] Comment:CTX-M Gene Detected: Possible Extended Spectrum Beta lactamase (ESBL) Producing organism. Blood Venous blood specimen / Unknown 01/16/2025 6:59 AM EDT 01/16/2025 8:47 AM EDT us Gris Rousseau MD LAB MICROBIOLOGY - [facility] AL ORDERABLES Final Result [facility] [address] [place] [address], * (ABNORMAL) Culture blood (01/16/2025 6:59 AM EDT) Pathologist [facility] Culture, Blood Escherichia coli ESBL(AA) NI 01/19/2025 10:22 AM EDT [facility] Comment: THIS ORGANISM IS POSITIVE FOR EXTENDED SPECTRUM BETA-LACTAMASE (ESBL). EXTENDED SPECTRUM BETA-LACTAMASE PRODUCING ORGANISMS DEMONSTRATE DECREASED ACTIVITY WITH PENICILLILNS, CEPHALOSPORINS AND AZTREONAM. The organism value for this result has been updated. These results have been appended to the previously preliminary verified report. This is an edited result. Previous organism was Gram negative bacilli on 01/17/2025 at 0856 EDT. Edited result: Previously reported as Escherichia coli on 01/18/2025 at 1008 EDT. Gram Stain Result Aerobic and Anaerobic bottles Gram negative bacilli(AA) 01/19/2025 10:22 AM EDT [facility] Comment: This is an appended report. These results have been appended to a previously preliminary verified report. Corrected result: Previously reported as Anaerobic bottle Gram negative bacilli on 01/16/2025 at 2009 EDT. Blood Venous blood specimen / Unknown 01/16/2025 6:59 AM EDT 01/16/2025 8:47 AM EDT Narrative Organism Antibiotic Method Susceptibility Escherichia coli ESBL Amoxicillin/Clavulanate NI 16 ug/ml: Intermediate Escherichia coli ESBL Ampicillin/Sulbactam NI >=32 ug/ml: Resistant Escherichia coli ESBL Piperacillin/Tazobactam NI 16 ug/ml: Intermediate Escherichia coli ESBL Cefazolin (Other) NI >=32 ug/ml: Resistant Escherichia coli ESBL [...] NI >=8 ug/ml: Resistant Escherichia coli ESBL Trimethoprim/Sulfa methoxazol e NI >=320 ug/ml: Resistant us Gris Rousseau MD LAB MICROBIOLOGY - GENER AL ORDERABLES Final Result [facility] [address] [place] [address], documented in this encounter Visit Diagnoses Diagnosis Fever, unspecified Type 2 diabetes mellitus without complications (CMS/HCC V24, CMS/HCC V28) Elevated blood-pressure reading, without diagnosis of hypertension documented in this encounter Additional Health Concerns Infection Onset Date Last Indicated Resolved Time ESBL 01/15/2025 01/16/2025 C. difficile Rule-Out 03/28/2025 03/27/20252024 10:26 AM EDT documented as of this encounter Care Teams Teacher Physically Impaired Relationship Specialty Start Date End Date Zay Bhagat MD [address] [place] [address] PCP - General 05/30/23 documented as of this encounter
--- OUTSIDE RECORDS SUMMARY | 2025-04-30 15:22 | XMS_ITS | Encounter Summary ---
Author Organization [facility] Address [address] [place] [address] Care Team Providers Care Box Icer Name Role Phone Zay Bhagat MD Primary Care Provider Encounter Details Date Type Department Care Team (Late st Contact Info) Description 01/16/[address] [facility] - Main Lab [address] [facility] [place] [address] Gris Rousseau MD [address] [phone] Type 2 diabetes mellitus without complications (CMS/HCC V24, CMS/HCC V28); Fever, unspecified; Elevated blood-pressure reading, without diagnosis of hypertension [...] Procedure Name Priority Date/Time Associated Diagnosis Comments MANUAL DIFFERENTIAL - [facility] WAM Routine 01/16/2025 6:42 AM EDT Type 2 diabetes mellitus without complications (CMS/HCC V24, CMS/HCC V28) Fever, unspecified Elevated blood-pressure reading, without diagnosis of hypertension CBC WITH AUTO DIFFERENTIAL Routine 01/16/2025 6:42 AM EDT Type 2 diabetes mellitus without complications (CMS/HCC V24, CMS/HCC V28) Fever, unspecified Elevated blood-pressure reading, without diagnosis of hypertension CULTURE BLOOD Routine 01/16/2025 6:42 AM EDT Type 2 diabetes mellitus without complications ([facility] [place]24, [facility] V28) Fever, unspecified Elevated blood-pressure reading, without diagnosis of hypertension CBC AND DIFFERENTIAL Routine 01/16/2025 6:42 AM EDT Type 2 diabetes mellitus without complications ([facility] V24, [facility] V28) Fever, unspecified Elevated blood-pressure reading, without diagnosis of hypertension COMPREHENSIVE METABOLIC PANEL Routine 01/16/2025 6:42 AM EDT Type 2 diabetes mellitus without complications ([facility] V24, [facility] V28) Fever, unspecified Elevated blood-pressure reading, without diagnosis of hypertension documented in this encounter Results * (ABNORMAL) Manual differential (01/16/2025 6:42 AM EDT) Neutrophils % 84.0 % LAB HEMETOLOGY METHOD 01/16/2025 9:37 AM [facility] Bands % 1.0 % LAB HEMETOLOGY METHOD 01/16/2025 9:37 AM [facility] Lymphocytes % 5.0 % LAB HEMETOLOGY METHOD 01/16/2025 9:37 AM [facility] Reactive Lymphocyte 3.00 % LAB HEMETOLOGY METHOD 01/16/2025 9:37 AM [facility] Monocytes % 7.0 % LAB HEMETOLOGY METHOD 01/16/2025 9:37 AM [facility] Eosinophils % 0.0 % LAB HEMETOLOGY METHOD 01/16/2025 9:37 AM [facility] Basophils % 0.0 % LAB HEMETOLOGY METHOD 01/16/2025 9:37 AM [facility] Neutrophils Absolute Manual 17.56(H) 1.50 - 7.00 K/mcL LAB HEMETOLOGY METHOD 01/16/2025 9:37 AM EDT [facility] Bands Absolute Manual 0.21(H) 0.00 - 0.00 K/mcL LAB [facility] Lymphocytes Absolute 1.05 1.00 - 5.00 K/mcL LAB H[facility]OLOGY [facility] Reactive Lymph Abs Manual 0.63(H) 0.00 - 0.00 lym LAB HEMETOLOGY METHOD 01/16/2025 9:37 AM EDT [facility] Monocytes Absolute Manual 1.46(H) 0.20 - 1.00 K/[facility] LAB HEMETOLOGY METHOD 01/16/2025 9:37 AM [facility] Eosinophils Absolute Manual 0.00 0.00 - 0.50 K/mcL LAB HEMETOLOGY METHOD [facility]/16[facility]25 [facility] Basophils Absolute Manual 0.00 0.00 - 0.20 K/mcL LAB HEMETOLOGY METHOD [facility]16[facility]25 [facility] Rbc Morphology Present( A) Consistent with indices, Normal for LAB HEMETOLOGY METHOD 01/16/2025 9:37 AM [facility] Comment:RBC: Morphology agre es with CBC Platelet Morphology - WAM See Note(A) Normal LAB HEMETOLOGY METHOD [facility]/16/2025 9[facility]T: Normal Polychromasia Present Present( A) (none) LAB HEMETOLOGY METHOD 01/16/2025 9:37 AM [facility] Blood Venous blood specimen / Unknown Venipuncture / Unknown 01/16/2025 6:42 AM EDT 01/16/2025 8:45 AM EDT us Gris Rousseau MD LAB BLOOD ORDERABLES Fin al Result [facility] [address] [place] [address], * (ABNORMAL) CBC auto differential (01/16/2025 6:42 AM EDT) WBC 20.9(H) 4.8 - 10.8 K/mcL LAB HEMETOLOGY METHOD 01/16/2025 9:37 AM EDT [facility] RBC 4.60 4.50 - 5.50 M/mcL LAB HEMETOLOGY METHOD 01/16/2025 9:37 AM EDT [facility] Hemoglobin 13.1(L) 13.5 - 17.5 g/dL LAB HEMETOLOGY METHOD 01/16/2025 9:37 AM EDT [facility] Hematocrit 40.8(L) 42.0 - 54.0 % LAB HEMETOLOGY METHOD 01/16/2025 9:37 AM EDT [facility] MCV 89.3 79.0 - 98.0 FL LAB HEMETOLOGY METHOD 01/16/2025 9:37 AM EDT [facility] MCH 28.7 27.0 - 32.0 pcg LAB HEMETOLOGY METHOD 01/16/2025 9:37 AM EDT [facility] MCHC 32.1 32.0 - 37.0 g/dL LAB HEMETOLOGY METHOD 01/16/2025 9:37 AM EDT [facility] RDW 14.6 11.0 - 15.0 % LAB HEMETOLOGY METHOD 01/16/2025 9:37 AM EDT [facility] Platelets 171 130 - 400 K/mcL LAB HEMETOLOGY METHOD 01/16/2025 9:37 AM EDT [facility] MPV 10.1 7.0 - 11.0 FL LAB HEMETOLOGY METHOD 01/16/2025 9:37 AM EDT [facility] NRBC 0.0 <1.0 % LAB HEMETOLOGY METHOD 01/16/2025 9:37 AM EDT [facility] NRBC Absolute 0.00 <0.10 K/mcL LAB HEMETOLOGY METHOD 01/16/2025 9:37 AM EDT [facility] Blood Venous blood specimen / Unknown Venipuncture / Unknown 01/16/2025 6:42 AM EDT 01/16/2025 8:45 AM EDT us Gris Rousseau MD LAB BLOOD ORDERABLES Fin al Result [facility] [address] [place] [address], * (ABNORMAL) Culture blood (01/16/2025 6:42 AM EDT) Pathologist [facility] Culture, Blood Escherichia coli ESBL(AA) NI 01/19/2025 10:24 AM EDT [facility] Comment: THIS ORGANISM IS POSITIVE FOR EXTENDED SPECTRUM BETA-LACTAMASE (ESBL). EXTENDED SPECTRUM BETA-LACTAMASE PRODUCING ORGANISMS DEMONSTRATE DECREASED ACTIVITY WITH PENICILLILNS, CEPHALOSPORINS AND AZTREONAM. The organism value for this result has been updated. These results have been appended to the previously preliminary verified report. This is an edited result. Previous organism was Gram negative bacilli on 01/18/2025 at 0614 EDT. Edited result: Previously reported as Escherichia coli on 01/18/2025 at 1006 EDT. Gram Stain Result Aerobic and Anaerobic bottles Gram negative bacilli(AA) 01/19/2025 10:24 AM EDT [facility] Comment: This is an appended report. These results have been appended to a previously preliminary verified report. Corrected result: Previously reported as Anaerobic bottle Gram negative bacilli on 01/17/2025 at 0854 EDT. Blood Venipuncture / Unknown 01/16/2025 6:42 AM EDT 01/16/2025 8:45 AM EDT Narrative [facility] - 01/19/2025 10:24 AM EDT FOR SUSCEPTIBILITIES, REFER TO PREVIOUS CULTURE FROM 01/16/25 at 0659. Gris Rousseau MD LAB MICROBIOLOGY - GENER AL ORDERABLES Final Result [facility] [address] [place] [address], [place] [phone] * (ABNORMAL) Comprehensive metabolic panel (01/16/2025 6:42 AM EDT) Sodium 141 133 - 145 mmol/L LAB CHEMISTRY METHOD 01/16/2025 10:16 AM [facility] Potassium 4.0 3.5 - 5.5 mmol/L LAB CHEMISTRY METHOD 01/16/2025 10:16 AM [facility] Chloride 104 96 - 110 mmol/L LAB CHEMISTRY METHOD 01/16/2025 10:16 AM [facility] CO2 26 21 - 32 mmol/L LAB CHEMISTRY METHOD 01/16/2025 10:16 AM [facility] Anion Gap 11 3 - 11 LAB CHEMISTRY METHOD 01/16/2025 10:16 AM [facility] Glucose 108(H) 70 - 100 mg/dL LAB CHEMISTRY METHOD 01/16/2025 10:16 AM [facility] BUN 30(H) 5 - 25 mg/dL LAB CHEMISTRY METHOD 01/16/2025 10:16 AM [facility] Comment:Results verified by repeat testing Creatinine 1.37(H) 0.70 - 1.30 mg/dL LAB CHEMISTRY METHOD 01/16/2025 10:16 AM [facility] eGFR 54(L) >=60 mL/min/1. 73m2 LAB CHEMISTRY METHOD 01/16/2025 10:16 AM [facility] Comment:Calculation based on the Chronic Kidney Disease Epidemiology Collaboration (CKD-EPI) equation refit without adjustment for race. BUN/Creatinine Ratio 21.9 LAB CHEMISTRY METHOD 01/16/2025 10:16 AM [facility] Calcium 9.3 8.5 - 10.5 mg/dL LAB CHEMISTRY METHOD 01/16/2025 10:16 AM [facility] AST (SGOT) 11 10 - 42 unit/L LAB CHEMISTRY METHOD 01/16/2025 10:16 AM [facility] ALT (SGPT) 13 10 - 60 unit/L LAB CHEMISTRY METHOD 01/16/2025 10:16 AM [facility] Alkaline Phosphatase 76 42 - 121 unit/L LAB CHEMISTRY METHOD 01/16/2025 10:16 AM [facility] Total Protein 7.0 6.0 - 8.0 g/dL LAB CHEMISTRY METHOD 01/16/2025 10:16 AM [facility] Albumin 3.2 3.2 - 5.0 g/dL LAB CHEMISTRY METHOD 01/16/2025 10:16 AM [facility] Total Bilirubin 0.5 0.0 - 1.4 mg/dL LAB CHEMISTRY METHOD 01/16/2025 10:16 AM [facility] Blood Venous blood specimen / Unknown Venipuncture / Unknown 01/16/2025 6:42 AM EDT 01/16/2025 8:45 AM EDT us rGis Rousseau MD LAB BLOOD ORDERABLES Fin al Result [facility] [address] [place] [address], documented in this encounter Visit Diagnoses Diagnosis Type 2 diabetes mellitus without complications (CMS/HCC V24, CMS/HCC V28) Fever, unspecified Elevated blood-pressure reading, without diagnosis of hypertension documented in this encounter Additional Health Concerns Infection Onset Date Last Indicated Resolved Time ESBL 01/15/2025 01/16/2025 C. difficile Rule-Out 03/28/2025 03/27/20252024 10:26 AM EDT documented as of this encounter Care Teams Box Icer Relationship Specialty Start Date End Date Zay Bhagat MD [address] [place] [address] PCP - General 05/30/23 documented as of this encounter
--- OUTSIDE RECORDS SUMMARY | 2025-04-30 15:22 | XMS_ITS | Encounter Summary ---
Author Organization [facility] Address [address] [place] [address] Care Team Providers Care Court Monitor Name Role Phone Zay Bhagat MD Primary Care Provider Encounter Details Date Type Department Care Team (Late st Contact Info) Description 09/28/2024 Lab Requisition [facility] - Main Lab [address] [facility] [place] [address] Gris Rousseau MD [address] [phone] Type 2 diabetes mellitus without complications (CMS/HCC [...] mmol/L LAB CHEMISTRY METHOD 09/30/2024 2:05 PM [facility] Potassium 4.5 3.5 - 5.5 mmol/L LAB CHEMISTRY METHOD 09/30/2024 2:05 PM [facility] Chloride 89(L) 96 - 110 mmol/L LAB CHEMISTRY METHOD 09/30/2024 2:05 PM [facility] CO2 26 21 - 32 mmol/L LAB CHEMISTRY METHOD 09/30/2024 2:05 PM [facility] Anion Gap 9 3 - 11 LAB CHEMISTRY METHOD 09/30/2024 2:05 PM [facility] Glucose 229(H) 70 - 100 mg/dL LAB CHEMISTRY METHOD 09/30/2024 2:05 PM [facility] BUN 17 5 - 25 mg/dL LAB CHEMISTRY METHOD 09/30/2024 2:05 PM [facility] Creatinine 1.41(H) 0.70 - 1.30 mg/dL LAB CHEMISTRY METHOD 09/30/2024 2:05 PM [facility] eGFR 52(L) >=60 mL/min/1. 73m2 LAB CHEMISTRY METHOD 09/30/2024 2:05 PM [facility] Comment:Calculation based on the Chronic Kidney Disease Epidemiology Collaboration (CKD-EPI) equation refit without adjustment for race. BUN/Creatinine Ratio 12.1 LAB CHEMISTRY METHOD 09/30/2024 2:05 PM [facility] Calcium 10.1 8.5 - 10.5 mg/dL LAB CHEMISTRY METHOD 09/30/2024 2:05 PM [facility] AST (SGOT) 28 10 - 42 unit/L LAB CHEMISTRY METHOD 09/30/2024 2:05 PM [facility] ALT (SGPT) 23 10 - 60 unit/L LAB CHEMISTRY METHOD 09/30/2024 2:05 PM [facility] Alkaline Phosphatase 68 42 - 121 unit/L LAB CHEMISTRY METHOD 09/30/2024 2:05 PM [facility] Total Protein 7.5 6.0 - 8.0 g/dL LAB CHEMISTRY METHOD 09/30/2024 2:05 PM [facility] Albumin 4.1 3.2 - 5.0 g/dL LAB CHEMISTRY METHOD 09/30/2024 2:05 PM [facility] Total Bilirubin 0.7 0.0 - 1.4 mg/dL LAB CHEMISTRY METHOD 09/30/2024 2:05 PM [facility] Blood Venous blood specimen / Unknown Venipuncture / Unknown 09/30/2024 10:45 AM EST 09/30/2024 11:48 AM EST us Gris Rousseau MD LAB BLOOD ORDERABLES Fin al Result [facility] [address] [place] [address], * (ABNORMAL) Complete blood count (09/30/2024 10:45 AM EST) WBC 9.8 4.8 - 10.8 K/mcL LAB HEMETOLOGY METHOD 09/30/2024 1:17 PM [facility] RBC 4.50 4.50 - 5.50 M/mcL LAB HEMETOLOGY METHOD 09/30/2024 1:17 PM [facility] Hemoglobin 13.5 13.5 - 17.5 g/dL LAB HEMETOLOGY METHOD 09/30/2024 1:17 PM [facility] Hematocrit 39.3(L) 42.0 - 54.0 % LAB HEMETOLOGY METHOD 09/30/2024 1:17 PM [facility] MCV 87.5 79.0 - 98.0 FL LAB HEMETOLOGY METHOD 09/30/2024 1:17 PM [facility] MCH 30.1 27.0 - 32.0 pcg LAB HEMETOLOGY METHOD 09/30/2024 1:[address] [facility] MCHC 34.4 32.0 - 37.0 g/dL LAB HEMETOLOGY METHOD 09/30/2024 1:17 PM [facility] RDW 12.8 11.0 - 15.0 % LAB HEMETOLOGY METHOD 09/30/2024 1:17 PM [facility] Platelets 250 130 - 400 K/mcL LAB HEMETOLOGY METHOD 09/30/2024 1:17 PM [facility] MPV 9.7 7.0 - 11.0 FL LAB HEMETOLOGY METHOD 09/30/2024 1:17 PM [facility] NRBC 0.0 <1.0 % LAB HEMETOLOGY METHOD 09/30/2024 1:17 PM [facility] NRBC Absolute 0.00 <0.10 K/mcL LAB HEMETOLOGY METHOD 09/30/2024 1:17 PM [facility] Blood Venous blood specimen / Unknown Venipuncture / Unknown 09/30/2024 10:45 AM EST 09/30/2024 11:48 AM EST us Gris Rousseau MD LAB BLOOD ORDERABLES Fin al Result [facility] [address] [place] [address], documented in this encounter Visit Diagnoses Diagnosis [...] documented as of this encounter Care Teams Court Monitor Relationship Specialty Start Date End Date Zay Bhagat MD [address] [place] [address] PCP - General 05/30/23 documented as of this encounter
--- OUTSIDE RECORDS SUMMARY | 2025-04-30 15:22 | XMS_ITS | Encounter Summary ---
Author Organization [facility] Address [address] [place] [address] Care Team Providers Care Information Assoc Name Role Phone Zay Bhagat MD Primary Care Provider Encounter Details Date Type Department Care Team (Late st Contact Info) Description 11/25/2024 Lab Requisition [facility] - Main Lab 299 [facility] [place] [address] Gris Rousseau MD [address] [address] Type 2 diabetes mellitus without complications (CMS/HCC [...] LAB CHEMISTRY METHOD 11/25/2024 12:48 PM EDT [facility] Potassium 4.5 3.5 - 5.5 mmol/L LAB CHEMISTRY METHOD 11/25/2024 12:48 PM [facility] Chloride 107 96 - 110 mmol/L LAB CHEMISTRY METHOD 11/25/2024 12:48 PM [facility] CO2 24 21 - 32 mmol/L LAB CHEMISTRY METHOD 11/25/2024 12:48 PM [facility] Anion Gap 8 3 - 11 LAB CHEMISTRY METHOD 11/25/2024 12:48 PM [facility] Glucose 98 70 - 100 mg/dL LAB CHEMISTRY METHOD 11/25/2024 12:48 PM [facility] BUN 20 5 - 25 mg/dL LAB CHEMISTRY METHOD 11/25/2024 12:48 PM [facility] Creatinine 0.86 0.70 - 1.30 mg/dL LAB CHEMISTRY METHOD 11/25/2024 12:48 PM [facility] eGFR 90 >=60 mL/min/1. 73m2 LAB CHEMISTRY METHOD 11/25/2024 12:48 PM [facility] Comment:Calculation based on the Chronic Kidney Disease Epidemiology Collaboration (CKD-EPI) equation refit without adjustment for race. BUN/Creatinine Ratio 23.3 LAB CHEMISTRY METHOD 11/25/2024 12:48 PM [facility] Calcium 9.4 8.5 - 10.5 mg/dL LAB CHEMISTRY METHOD 11/25/2024 12:48 PM [facility] AST (SGOT) 23 10 - 42 unit/L LAB CHEMISTRY METHOD 11/25/2024 12:48 PM [facility] ALT (SGPT) 19 10 - 60 unit/L LAB CHEMISTRY METHOD 11/25/2024 12:48 PM [facility] Alkaline Phosphatase 78 42 - 121 unit/L LAB CHEMISTRY METHOD 11/25/2024 12:48 PM [facility] Total Protein 6.8 6.0 - 8.0 g/dL LAB CHEMISTRY METHOD 11/25/2024 12:48 PM EDT [facility] Albumin 3.3 3.2 - 5.0 g/dL LAB CHEMISTRY METHOD 11/25/2024 12:48 PM EDT [facility] Total Bilirubin 0.6 0.0 - 1.4 mg/dL LAB CHEMISTRY METHOD 11/25/2024 12:48 PM EDT [facility] Blood Venous blood specimen / Unknown Venipuncture / Unknown 11/25/2024 8:15 AM EDT 11/25/2024 10:51 AM EDT us Gris Rousseau MD LAB BLOOD ORDERABLES Fin al Result [facility] [address] [place] [address], * (ABNORMAL) Complete blood count (11/25/2024 8:15 AM EDT) WBC 8.6 4.8 - 10.8 K/mcL LAB HEMETOLOGY METHOD 11/25/2024 11:58 AM [facility] RBC 4.10(L) 4.50 - 5.50 M/mcL LAB HEMETOLOGY METHOD 11/25/2024 11:58 AM T [facility] Hemoglobin 12.0(L) 13.5 - 17.5 g/dL LAB HEMETOLOGY METHOD 11/25/2024 11:58 AM T [facility] Hematocrit 36.9(L) 42.0 - 54.0 % LAB HEMETOLOGY METHOD 11/25/2024 11:58 AM T [facility] MCV 89.1 79.0 - 98.0 FL LAB HEMETOLOGY METHOD 11/25/2024 11:58 AM T [facility] MCH 29.0 27.0 - 32.0 pcg LAB HEMETOLOGY METHOD 11/25/2024 11:58 AM EDT [facility] MCHC 32.5 32.0 - 37.0 g/dL LAB HEMETOLOGY METHOD 11/25/2024 11:58 AM EDT [facility] RDW 14.8 11.0 - 15.0 % LAB HEMETOLOGY METHOD 11/25/2024 11:58 AM EDT [facility] Platelets 299 130 - 400 K/mcL LAB HEMETOLOGY METHOD 11/25/2024 11:58 AM EDT [facility] MPV 10.1 7.0 - 11.0 FL LAB HEMETOLOGY METHOD 11/25/2024 11:58 AM EDT [facility] NRBC 0.0 <1.0 % LAB HEMETOLOGY METHOD 11/25/2024 11:58 AM EDT [facility] NRBC Absolute 0.00 <0.10 K/mcL LAB HEMETOLOGY METHOD 11/25/2024 11:58 AM EDT [facility] Blood Venous blood specimen / Unknown Venipuncture / Unknown 11/25/2024 8:15 AM EDT 11/25/2024 10:51 AM EDT us Gris Rousseau MD LAB BLOOD ORDERABLES Fin al Result [facility] [address] [place] [address], documented in this encounter Visit Diagnoses Diagnosis Type 2 diabetes mellitus without complications (CMS/HCC V24, CMS/HCC V28) documented in this encounter Additional Health Concerns Infection Onset Date Last Indicated Resolved Time Influenza 11/08/2024 11/08/2024 12/02/2024 7:05 PM EDT ESBL 01/15/2025 01/16/2025 C. difficile Rule-Out 03/28/2025 03/27/20252024 10:26 AM EDT documented as of this encounter Care Teams Information Assoc Relationship Specialty Start Date End Date Zay Bhagat MD [address] [place] [address] PCP - General 05/30/23 documented as of this encounter
--- OUTSIDE RECORDS SUMMARY | 2025-04-30 15:22 | XMS_ITS | Encounter Summary ---
Author Organization [facility] Address [address] [place] [address] Care Team Providers Care Power System Engineer Name Role Phone Zay Bhagat MD Primary Care Provider Encounter Details Date Type Department Care Team (Late st Contact Info) Description 10/02/2024 Lab Requisition [facility] - Main Lab [address] [place] [address] Benjamin Gaytan MD [address] [place] [address] [place] [address] Other supervisor long goods (current) drug therapy Social History Tobacco Use [...] PANEL Routine 10/02/2024 4:52 AM EST Other supervisor long goods (current) drug therapy documented in this encounter Results * (ABNORMAL) Comprehensive metabolic panel (10/02/2024 4:52 AM EST) Sodium 126(L) 133 - 145 mmol/L LAB CHEMISTRY METHOD 10/02/2024 12:38 PM EST [facility] Potassium 5.1 3.5 - 5.5 mmol/L LAB CHEMISTRY METHOD 10/02/2024 12:38 PM EST [facility] Chloride 92(L) 96 - 110 mmol/L LAB CHEMISTRY METHOD 10/02/2024 12:38 PM [facility] CO2 27 21 - 32 mmol/L LAB CHEMISTRY METHOD 10/02/2024 12:38 PM [facility] Anion Gap 7 3 - 11 LAB CHEMISTRY METHOD 10/02/2024 12:38 PM [facility] Glucose 80 70 - 100 mg/dL LAB CHEMISTRY METHOD 10/02/2024 12:38 PM [facility] BUN 17 5 - 25 mg/dL LAB CHEMISTRY METHOD 10/02/2024 12:38 PM [facility] Creatinine 0.84 0.70 - 1.30 mg/dL LAB CHEMISTRY METHOD 10/02/2024 12:38 PM [facility] eGFR 91 >=60 mL/min/1. 73m2 LAB CHEMISTRY METHOD 10/02/2024 12:38 PM [facility] Comment:Calculation based on the Chronic Kidney Disease Epidemiology Collaboration (CKD-EPI) equation refit without adjustment for race. BUN/Creatinine Ratio 20.2 LAB CHEMISTRY METHOD 10/02/2024 12:38 PM [facility] Calcium 9.4 8.5 - 10.5 mg/dL LAB CHEMISTRY METHOD 10/02/2024 12:38 PM [facility] AST (SGOT) 16 10 - 42 unit/L LAB CHEMISTRY METHOD 10/02/2024 12:38 PM [facility] ALT (SGPT) 22 10 - 60 unit/L LAB CHEMISTRY METHOD 10/02/2024 12:38 PM [facility] Alkaline Phosphatase 57 42 - 121 unit/L LAB CHEMISTRY METHOD 10/02/2024 12:38 PM [facility] Total Protein 6.7 6.0 - 8.0 g/dL LAB CHEMISTRY METHOD 10/02/2024 12:38 PM [facility] Albumin 3.6 3.2 - 5.0 g/dL LAB CHEMISTRY METHOD 10/02/2024 12:38 PM EST [facility] Total Bilirubin 0.5 0.0 - 1.4 mg/dL LAB CHEMISTRY METHOD 10/02/2024 12:38 PM EST [facility] Blood Venous blood specimen / Unknown Venipuncture / Unknown 10/02/2024 4:52 AM EST 10/02/2024 10:40 AM EST us Benjamin Gaytan MD LAB BLOOD ORDERABLES Final Resu lt [facility] [address] [place] [address], documented in this encounter Visit Diagnoses Diagnosis Other alf (current) drug therapy documented in this encounter Additional Health Concerns Infection Onset Date Last Indicated Resolved Time Respiratory Rule-Out 11/08/2024 11/08/2024 025 4:47 PM EST Influenza 11/08/2024 11/08/2024 12/02/2024 7:05 PM EDT ESBL 01/15/2025 01/16/2025 C. difficile Rule-Out 03/28/2025 03/27/20252024 10:26 AM EDT documented as of this encounter Care Teams Power System Engineer Relationship Specialty Start Date End Date Zay Bhagat MD [address] [place] [address] PCP - General 05/30/23 documented as of this encounter
--- OUTSIDE RECORDS SUMMARY | 2025-04-30 15:23 | XMS_ITS | Encounter Summary ---
Author Organization Address [address] [place] [address] Care Team Providers Care Tour Bus Driver Name Role Phone Zay Bhagat MD Primary Care Provider Encounter Details Date Type Department Care Team (Late st Contact Info) Description 09/06/2024 Lab Requisition [facility] - Main Lab [address] [place] [address] Gris Rousseau MD [address] [address] Essential (primary) hypertension Social History Tobacco Use [...] LAB CHEMISTRY METHOD 09/09/2024 12:37 PM EST [facility] Potassium 4.2 3.5 - 5.5 mmol/L LAB CHEMISTRY METHOD 09/09/2024 12:37 PM [facility] Chloride 100 96 - 110 mmol/L LAB CHEMISTRY METHOD 09/09/2024 12:37 PM [facility] CO2 29 21 - 32 mmol/L LAB CHEMISTRY METHOD 09/09/2024 12:37 PM [facility] Anion Gap 3 3 - 11 LAB CHEMISTRY METHOD 09/09/2024 12:37 PM [facility] Glucose 59(L) 70 - 100 mg/dL LAB CHEMISTRY METHOD 09/09/2024 12:37 PM [facility] BUN 14 5 - 25 mg/dL LAB CHEMISTRY METHOD 09/09/2024 12:37 PM [facility] Creatinine 0.84 0.70 - 1.30 mg/dL LAB CHEMISTRY METHOD 09/09/2024 12:37 PM [facility] eGFR 91 >=60 mL/min/1. 73m2 LAB CHEMISTRY METHOD 09/09/2024 12:37 PM [facility] Comment:Calculation based on the Chronic Kidney Disease Epidemiology Collaboration (CKD-EPI) equation refit without adjustment for race. BUN/Creatinine Ratio 16.7 LAB CHEMISTRY METHOD 09/09/2024 12:37 PM [facility] Calcium 9.3 8.5 - 10.5 mg/dL LAB CHEMISTRY METHOD 09/09/2024 12:37 PM [facility] AST (SGOT) 9(L) 10 - 42 unit/L LAB CHEMISTRY METHOD 09/09/2024 12:37 PM [facility] ALT (SGPT) 15 10 - 60 unit/L LAB CHEMISTRY METHOD 09/09/2024 12:37 PM [facility] Alkaline Phosphatase 60 42 - 121 unit/L LAB CHEMISTRY METHOD 09/09/2024 12:37 PM [facility] Total Protein 6.4 6.0 - 8.0 g/dL LAB CHEMISTRY METHOD 09/09/2024 12:37 PM [facility] Albumin 3.2 3.2 - 5.0 g/dL LAB CHEMISTRY METHOD 09/09/2024 12:37 PM [facility] Total Bilirubin 0.5 0.0 - 1.4 mg/dL LAB CHEMISTRY METHOD 09/09/2024 12:37 PM [facility] Blood Venous blood specimen / Unknown Venipuncture / Unknown 09/09/2024 7:06 AM EST 09/09/2024 10:55 AM EST us Gris Rousseau MD LAB BLOOD ORDERABLES Fin al Result [facility] [address] [place] [address], * (ABNORMAL) Complete blood count (09/09/2024 7:06 AM EST) WBC 13.9(H) 4.8 - 10.8 K/mcL LAB HEMETOLOGY METHOD 09/09/2024 11:42 AM [facility] RBC 4.20(L) 4.50 - 5.50 M/[facility] LAB HEMETOLOGY METHOD 09/09/2024 11:42 AM [facility] Hemoglobin 12.9(L) 13.5 - 17.5 g/dL LAB HEMETOLOGY METHOD 09/09/2024 11:42 AM [facility] Hematocrit 38.4(L) 42.0 - 54.0 % LAB HEMETOLOGY METHOD 09/09/2024 11:42 AM [facility] MCV 92.3 79.0 - 98.0 FL LAB HEMETOLOGY METHOD 09/09/2024 11:42 AM [facility] MCH 31.0 27.0 - 32.0 pcg LAB HEMETOLOGY METHOD 09/09/2024 11:42 AM [facility] MCHC 33.6 32.0 - 37.0 g/dL LAB HEMETOLOGY METHOD 09/09/2024 11:42 AM [facility] RDW 12.9 11.0 - 15.0 % LAB HEMETOLOGY METHOD 09/09/2024 11:42 AM [facility] Platelets 206 130 - 400 K/mcL LAB HEMETOLOGY METHOD 09/09/2024 11:42 AM [facility] MPV 9.8 7.0 - 11.0 FL LAB HEMETOLOGY METHOD 09/09/2024 11:42 AM [facility] NRBC 0.0 <1.0 % LAB HEMETOLOGY METHOD 09/09/2024 11:42 AM [facility] NRBC Absolute 0.00 <0.10 K/mcL LAB HEMETOLOGY METHOD 09/09/2024 11:42 AM [facility] Blood Venous blood specimen / Unknown Venipuncture / Unknown 09/09/2024 7:06 AM EST 09/09/2024 10:55 AM EST Gris Rousseau MD LAB BLOOD ORDERABLES Fin al Result [facility] [address] [place] [address], documented in this encounter Visit Diagnoses Diagnosis Essential (primary) hypertension Unspecified essential hypertension documented in this encounter Additional Health Concerns Infection Onset Date Last Indicated Resolved Time Respiratory Rule-Out 11/08/2024 11/08/2024 025 4:47 PM EST Influenza 11/08/2024 11/08/2024 12/02/2024 7:05 PM EDT ESBL 01/15/2025 01/16/2025 C. difficile Rule-Out 03/28/2025 03/27/20252024 10:26 AM EDT documented as of this encounter Care Teams Tour Bus Driver Relationship Specialty Start Date End Date Zay Bhagat MD [address] [place] [address] PCP - General 05/30/23 documented as of this encounter
--- OUTSIDE RECORDS SUMMARY | 2025-04-30 15:23 | XMS_ITS | Encounter Summary ---
Author Organization [facility] Address [address] [place] [address] Care Team Providers Care Environmental Project Manager Name Role Phone Zay Bhagat MD Primary Care Provider Encounter Details Date Type Department Care Team (Late st Contact Info) Description 03/10/2025 Lab Requisition [facility] - Main Lab 299 [facility] [place] [address] Gris Rousseau MD [address] [phone] Fracture of other parts of pelvis, subsequent encounter for fracture with routine healing; Type 2 diabetes mellitus without complications (CMS/HCC [...] Associated Diagnosis Comments COMPLETE BLOOD COUNT Routine 03/10/2025 9:33 AM EDT Fracture of other parts of pelvis, subsequent encounter for fracture with routine healing Type 2 diabetes mellitus without complications (CMS/HCC V24, CMS/HCC V28) COMPREHENSIVE METABOLIC PANEL Routine 03/10/2025 9:33 AM EDT Fracture of other parts of pelvis, subsequent encounter for fracture with routine healing Type 2 diabetes mellitus without complications (CMS/HCC V24, CMS/HCC V28) documented in this encounter Results * (ABNORMAL) Comprehensive metabolic panel (03/10/2025 9:33 AM EDT) Sodium 139 133 - 145 mmol/L LAB CHEMISTRY METHOD 03/10/2025 1:05 PM [facility] Potassium 4.3 3.5 - 5.5 mmol/L LAB CHEMISTRY METHOD 03/10/2025 1:05 PM [facility] Chloride 105 96 - 110 mmol/L LAB CHEMISTRY METHOD 03/10/2025 1:05 PM [facility] CO2 25 21 - 32 mmol/L LAB CHEMISTRY METHOD 03/10/2025 1:05 PM [facility] Anion Gap 9 3 - 11 LAB CHEMISTRY METHOD 03/10/2025 1:05 PM [facility] Glucose 140(H) 70 - 100 mg/dL LAB CHEMISTRY METHOD 03/10/2025 1:05 PM [facility] BUN 18 5 - 25 mg/dL LAB CHEMISTRY METHOD 03/10/2025 1:05 PM [facility] Creatinine 1.01 0.70 - 1.30 mg/dL LAB CHEMISTRY METHOD 03/10/2025 1:05 PM [facility] eGFR 78 >=60 mL/min/1. 73m2 LAB CHEMISTRY METHOD 03/10/2025 1:05 PM [facility] Comment:Calculation based on the Chronic Kidney Disease Epidemiology Collaboration (CKD-EPI) equation refit without adjustment for race. BUN/Creatinine Ratio 17.8 LAB CHEMISTRY METHOD 03/10/2025 1:05 PM [facility] Calcium 9.3 8.5 - 10.5 mg/dL LAB CHEMISTRY METHOD 03/10/2025 1:05 PM [facility] AST (SGOT) 14 10 - 42 unit/L LAB CHEMISTRY METHOD 03/10/2025 1:05 PM [facility] ALT (SGPT) 13 10 - 60 unit/L LAB CHEMISTRY METHOD 03/10/2025 1:05 PM EDT [facility] Alkaline Phosphatase 147(H) 42 - 121 unit/L LAB CHEMISTRY METHOD 03/10/2025 1:05 PM EDT [facility] Total Protein 6.8 6.0 - 8.0 g/dL LAB CHEMISTRY METHOD 03/10/2025 1:05 PM EDT [facility] Albumin 3.4 3.2 - 5.0 g/dL LAB CHEMISTRY METHOD [facility] Total Bilirubin 0.4 0.0 - 1.4 mg/dL LAB CHEMISTRY METHOD 03/10/2025 1:05 PM [facility] Blood Venous blood specimen / Unknown Venipuncture / Unknown 03/10/2025 9:33 AM EDT 03/10/2025 11:09 AM EDT us Gris Rousseau MD LAB BLOOD ORDERABLES Fin al Result [facility] [address] [place] [address], * (ABNORMAL) Complete blood count (03/10/2025 9:33 AM EDT) WBC 8.3 4.8 - 10.8 K/mcL LAB HEMETOLOGY METHOD 03/10/2025 1:08 PM EDT [facility] RBC 4.30(L) 4.50 - 5.50 M/mcL LAB HEMETOLOGY METHOD 03/10/2025 1[facility] Hemoglobin 11.9(L) 13.5 - 17.5 g/dL LAB HEMETOLOGY METHOD 03/10/2025 1:08 PM EDT [facility] Hematocrit 37.7(L) 42.0 - 54.0 % LAB HEMETOLOGY METHOD 03/10/2025 1:08 PM EDT [facility] MCV 87.7 79.0 - 98.0 FL LAB HEMETOLOGY METHOD 03/10/2025 1:08 PM EDT [facility] MCH 27.7 27.0 - 32.0 pcg LAB HEMETOLOGY METHOD 03/10/2025 1:08 PM EDT [facility] MCHC 31.6(L) 32.0 - 37.0 g/dL LAB HEMETOLOGY METHOD 03/10/2025 1:08 PM EDT [facility] RDW 14.8 11.0 - 15.0 % LAB HEMETOLOGY METHOD 03/10/2025 1:08 PM EDT [facility] Platelets 234 130 - 400 K/mcL LAB HEMETOLOGY METHOD 03/10/2025 1:08 PM EDT [facility] MPV 9.9 7.0 - 11.0 FL LAB HEMETOLOGY METHOD 03/10/2025 1:08 PM EDT [facility] NRBC 0.0 <1.0 % LAB HEMETOLOGY METHOD 03/10/2025 1:08 PM EDT [facility] NRBC Absolute 0.00 <0.10 K/mcL LAB HEMETOLOGY METHOD 03/10/2025 1:08 PM EDT [facility] Blood Venous blood specimen / Unknown Venipuncture / Unknown 03/10/2025 9:33 AM EDT 03/10/2025 11:09 AM EDT us Gris Rousseau MD LAB BLOOD ORDERABLES Fin al Result [facility] [address] [place] [address], documented in this encounter Visit Diagnoses Diagnosis Fracture of other parts of pelvis, subsequent encounter for fracture with routine healing Type 2 diabetes mellitus without complications (CMS/[facility] V24, [facility] V28) documented in this encounter Additional Health Concerns Infection Onset Date Last Indicated Resolved Time ESBL 01/15/2025 01/16/2025 C. difficile Rule-Out 03/28/2025 03/27/20252024 10:26 AM EDT documented as of this encounter Care Teams Environmental Project Manager Relationship Specialty Start Date End Date Zay Bhagat MD [address] [place] [address] PCP - General 05/30/23 documented as of this encounter
--- OUTSIDE RECORDS SUMMARY | 2025-04-30 15:23 | XMS_ITS | Encounter Summary ---
Author Organization [facility] Address [address] [place] [address] Care Team Providers Care Emergency Department Name Role Phone Zay Bhagat MD Primary Care Provider Encounter Details Date Type Department Care Team (Late st Contact Info) Description 02/07/2025 Lab Requisition [facility] - Main Lab 299 [facility] [place] [address] Gris Rousseau MD [address] [phone] Sepsis, unspecified organism (CMS/HCC V24, CMS/HCC V28) [...] Associated Diagnosis Comments COMPLETE BLOOD COUNT Routine 02/10/2025 7:55 AM EDT Sepsis, unspecified organism (CMS/HCC V24, CMS/HCC V28) CREATINE KINASE Routine 02/10/2025 7:55 AM EDT Sepsis, unspecified organism (CMS/HCC V24, CMS/HCC V28) COMPREHENSIVE METABOLIC PANEL Routine 02/10/2025 7:55 AM EDT Sepsis, unspecified organism (CMS/HCC V24, CMS/HCC V28) documented in this encounter Results * (ABNORMAL) Comprehensive metabolic panel (02/10/2025 7:55 AM EDT) Sodium 143 133 - 145 mmol/L LAB CHEMISTRY METHOD 02/10/2025 12:39 PM [facility] Potassium 3.8 3.5 - 5.5 mmol/L LAB CHEMISTRY METHOD 02/10/2025 12:39 PM [facility] Chloride 110 96 - 110 mmol/L LAB CHEMISTRY METHOD 02/10/2025 12:39 PM [facility] CO2 25 21 - 32 mmol/L LAB CHEMISTRY METHOD 02/10/2025 12:39 PM [facility] Anion Gap 8 3 - 11 LAB CHEMISTRY METHOD 02/10/2025 12:39 PM [facility] Glucose 37(LL) 70 - 100 mg/dL LAB CHEMISTRY METHOD 02/10/2025 12:39 PM [facility] BUN 41(H) 5 - 25 mg/dL LAB CHEMISTRY METHOD 02/10/2025 12:39 PM [facility] Creatinine 1.95(H) 0.70 - 1.30 mg/dL LAB CHEMISTRY METHOD 02/10/2025 12:39 PM [facility] eGFR 35(L) >=60 mL/min/1. 73m2 LAB CHEMISTRY METHOD 02/10/2025 12:39 PM [facility] Comment:Calculation based on the Chronic Kidney Disease Epidemiology Collaboration (CKD-EPI) equation refit without adjustment for race. BUN/Creatinine Ratio 21.0 LAB CHEMISTRY METHOD 02/10/2025 12:39 PM [facility] Calcium 9.2 8.5 - 10.5 mg/dL LAB CHEMISTRY METHOD 02/10/2025 12:39 PM [facility] AST (SGOT) 49(H) 10 - 42 unit/L LAB CHEMISTRY METHOD 02/10/2025 12:39 PM EDT [facility] ALT (SGPT) 21 10 - 60 unit/L LAB CHEMISTRY METHOD 02/10/2025 12:39 PM EDT [facility] Alkaline Phosphatase 100 42 - 121 unit/L LAB CHEMISTRY METHOD 02/10/2025 12:39 PM [facility] Total Protein 6.5 6.0 - 8.0 g/dL LAB CHEMISTRY METHOD 02/10/2025 12:39 PM [facility] Albumin 3.0(L) 3.2 - 5.0 g/dL LAB CHEMISTRY METHOD 02/10/2025 12:39 PM [facility] Total Bilirubin 0.3 0.0 - 1.4 mg/dL LAB CHEMISTRY METHOD 02/10/2025 12:39 PM [facility] Blood Venous blood specimen / Unknown Venipuncture / Unknown 02/10/2025 7:55 AM EDT 02/10/2025 11:03 AM EDT us Gris Rousseau MD LAB BLOOD ORDERABLES Fin al Result [facility] [address] [place] [address], * (ABNORMAL) Complete blood count (02/10/2025 7:55 AM EDT) WBC 10.5 4.8 - 10.8 K/[facility] LAB HEMETOLOGY METHOD 02/10/2025 12:54 PM EDT [facility] RBC 4.20(L) 4.50 - 5.50 M/mcL LAB HEMETOLOGY METHOD 02/10/2025 12:54 PM [facility] Hemoglobin 11.8(L) 13.5 - 17.5 g/dL LAB HEMETOLOGY METHOD 02/10/2025 12:54 PM EDT [facility] Hematocrit 36.6(L) 42.0 - 54.0 % LAB HEMETOLOGY METHOD 02/10/2025 12:54 PM EDT [facility] MCV 87.4 79.0 - 98.0 FL LAB HEMETOLOGY METHOD 02/10/2025 12:54 PM EDT [facility] MCH 28.2 27.0 - 32.0 pcg LAB HEMETOLOGY METHOD 02/10/2025 12:54 PM EDT [facility] MCHC 32.2 32.0 - 37.0 g/dL LAB HEMETOLOGY METHOD 02/10/2025 12:54 PM EDT [facility] RDW 13.4 11.0 - 15.0 % LAB HEMETOLOGY METHOD 02/10/2025 12:54 PM EDT [facility] Platelets 196 130 - 400 K/mcL LAB HEMETOLOGY METHOD 02/10/2025 12:54 PM EDT [facility] MPV 10.1 7.0 - 11.0 FL LAB HEMETOLOGY METHOD 02/10/2025 12:54 PM EDT [facility] NRBC 0.0 <1.0 % LAB HEMETOLOGY METHOD 02/10/2025 12:54 PM EDT [facility] NRBC Absolute 0.00 <0.10 K/mcL LAB HEMETOLOGY METHOD 02/10/2025 12:54 PM EDT [facility] Blood Venous blood specimen / Unknown Venipuncture / Unknown 02/10/2025 7:55 AM EDT 02/10/2025 11:03 AM EDT us Gris Rousseau MD LAB BLOOD ORDERABLES Fin al Result [facility] [address] [place] [address], * (ABNORMAL) Creatine kinase (02/10/2025 7:55 AM EDT) Total CK 392(H) 22 - 269 unit/L LAB CHEMISTRY METHOD 02/10/2025 12:02 PM EDT [facility] Blood Venous blood specimen / Unknown Venipuncture / Unknown 02/10/2025 7:55 AM EDT 02/10/2025 11:03 AM EDT us Gris Rousseau MD LAB BLOOD ORDERABLES Fin al Result [facility] [address] [place] [address], documented in this encounter Visit Diagnoses Diagnosis Sepsis, unspecified organism (CMS/HCC V24, CMS/[facility] V28) documented in this encounter Additional Health Concerns Infection Onset Date Last Indicated Resolved Time ESBL 01/15/2025 01/16/2025 C. difficile Rule-Out 03/28/2025 03/27/20252024 10:26 AM EDT documented as of this encounter Care Teams Emergency Department Relationship Specialty Start Date End Date Zay Bhagat MD [address] [place] [address] PCP - General 05/30/23 documented as of this encounter
--- OUTSIDE RECORDS SUMMARY | 2025-04-30 15:23 | XMS_ITS | Encounter Summary ---
Author Organization [facility] Address [address] [place] [address] Care Team Providers Care Senior Tax Analyst Name Role Phone Zay Bhagat MD Primary Care Provider Encounter Details Date Type Department Care Team (Late st Contact Info) Description 08/27/2024 Lab Requisition [facility] - Main Lab [address] [place] [address] Gris Rousseau MD [address] [id number] Type 2 diabetes mellitus without complications (CMS/HCC [...] EST Type 2 diabetes mellitus without complications ([facility]/HCC) Heart failure, unspecified (CMS/HCC) documented in this encounter Results * (ABNORMAL) Urinalysis microscopic only (08/26/2024 9:00 PM EST) RBC, Urine 1.8 0 - 4 /HPF LAB URINALYSIS - AUTOMATED METHOD 08/27/2024 10:31 AM [facility] WBC, Urine 8.4(H) 0 - 4 /HPF LAB URINALYSIS - AUTOMATED METHOD 08/27/2024 10:31 AM [facility] Squamous Epithelial, Urine 48 0 - 60 /LPF LAB URINALYSIS - AUTOMATED METHOD 08/27/2024 10:31 AM [facility] Bacteria, Urine Negative Negative /HPF LAB URINALYSIS - AUTOMATED METHOD 08/27/2024 10:31 AM [facility] Hyaline Casts, Urine 2.5 0 - 3 /LPF LAB URINALYSIS - AUTOMATED METHOD 08/27/2024 10:31 AM [facility] Urine Indwelling urinary catheter / Unknown 08/26/2024 9:00 PM EST 08/27/2024 10:06 AM EST us Gris Rousseau MD LAB URINE ORDERABLES Fin al Result [facility] [address] [place] [address], * (ABNORMAL) Culture urine (08/26/2024 9:00 PM EST) Culture, Urine >100,000 CFU/mL Leclercia adecarboxylata(A) NI 08/29/2024 10:11 AM [facility] Comment: This is an edited result. Previous organism was Gram negative bacilli on 08/28/2024 at 1240 EST. Culture, Urine >100,000 CFU/mL Staphylococcus epidermidis(A) NI 08/29/2024 10:11 AM EST [facility] Comment: Edited result: Previously reported [...] MICROBIOLOGY - GENER AL ORDERABLES Final Result [facility] [address] [place] [address], [place] [phone] documented in this encounter Visit Diagnoses Diagnosis Type 2 diabetes mellitus without complications (CMS/[facility] V24, CMS/[facility] V28) Heart failure, unspecified ([facility] V24, [facility] V28) Heart failure, unspecified documented in this encounter Additional Health Concerns Infection Onset Date Last Indicated Resolved Time Respiratory Rule-Out 11/08/2024 11/08/2024 025 4:47 PM EST Influenza 11/08/2024 11/08/2024 12/02/2024 7:05 PM EDT ESBL 01/15/2025 01/16/2025 C. difficile Rule-Out 03/28/2025 03/27/20252024 10:26 AM EDT documented as of this encounter Care Teams Senior Tax Analyst Relationship Specialty Start Date End Date Zay Bhagat MD [address] [place] [address] PCP - General 05/30/23 documented as of this encounter
--- OUTSIDE RECORDS SUMMARY | 2025-04-30 15:23 | XMS_ITS | Encounter Summary ---
Author Organization [facility] Address [address] [place] [address] Care Team Providers Care Technical Sales Consultant Name Role Phone Zay Bhagat MD Primary Care Provider Encounter Details Date Type Department Care Team (Late st Contact Info) Description 02/14/2025 Lab Requisition [facility] - Main Lab [address] [facility] [place] [address] Gris Rousseau MD [address] [phone] Sepsis, unspecified organism (CMS/HCC V24, CMS/HCC V28) [...] Associated Diagnosis Comments COMPLETE BLOOD COUNT Routine 02/17/2025 7:44 AM EDT Sepsis, unspecified organism (CMS/HCC V24, CMS/HCC V28) CREATINE KINASE Routine 02/17/2025 7:44 AM EDT Sepsis, unspecified organism (CMS/HCC V24, CMS/HCC V28) COMPREHENSIVE METABOLIC PANEL Routine 02/17/2025 7:44 AM EDT Sepsis, unspecified organism (CMS/HCC V24, CMS/HCC V28) documented in this encounter Results * (ABNORMAL) Comprehensive metabolic panel (02/17/2025 7:44 AM EDT) Sodium 141 133 - 145 mmol/L LAB CHEMISTRY METHOD 02/17/2025 1:42 PM [facility] Potassium 4.4 3.5 - 5.5 mmol/L LAB CHEMISTRY METHOD 02/17/2025 1:42 PM [facility] Chloride 108 96 - 110 mmol/L LAB CHEMISTRY METHOD 02/17/2025 1:42 PM [facility] CO2 26 21 - 32 mmol/L LAB CHEMISTRY METHOD 02/17/2025 1:42 PM [facility] Anion Gap 7 3 - 11 LAB CHEMISTRY METHOD 02/17/2025 1:42 PM [facility] Glucose 105(H) 70 - 100 mg/dL LAB CHEMISTRY METHOD 02/17/2025 1:42 PM [facility] BUN 20 5 - 25 mg/dL LAB CHEMISTRY METHOD 02/17/2025 1:42 PM [facility] Creatinine 0.88 0.70 - 1.30 mg/dL LAB CHEMISTRY METHOD 02/17/2025 1:42 PM [facility] eGFR 90 >=60 mL/min/1. 73m2 LAB CHEMISTRY METHOD 02/17/2025 1:42 PM [facility] Comment:Calculation based on the Chronic Kidney Disease Epidemiology Collaboration (CKD-EPI) equation refit without adjustment for race. BUN/Creatinine Ratio 22.7 LAB CHEMISTRY METHOD 02/17/2025 1:42 PM [facility] Calcium 8.8 8.5 - 10.5 mg/dL LAB CHEMISTRY METHOD 02/17/2025 1:42 PM [facility] AST (SGOT) 18 10 - 42 unit/L LAB CHEMISTRY METHOD 02/17/2025 1:42 PM [facility] ALT (SGPT) 18 10 - 60 unit/L LAB CHEMISTRY METHOD 02/17/2025 1:42 PM EDT [facility] Alkaline Phosphatase 144(H) 42 - 121 unit/L LAB CHEMISTRY METHOD 02/17/2025 1:42 PM EDT [facility] Total Protein 6.2 6.0 - 8.0 g/dL LAB CHEMISTRY METHOD 02/17/2025 1:42 PM EDT [facility] Albumin 2.9(L) 3.2 - 5.0 g/dL LAB CHEMISTRY METHOD 02/17/2025 1:42 PM EDT [facility] Total Bilirubin 0.3 0.0 - 1.4 mg/dL LAB CHEMISTRY METHOD 02/17/2025 1:42 PM EDT [facility] Blood Venous blood specimen / Unknown Venipuncture / Unknown 02/17/2025 7:44 AM EDT 02/17/2025 10:36 AM EDT us Gris Rousseau MD LAB BLOOD ORDERABLES Fin al Result [facility] [address] [place] [address], * (ABNORMAL) Complete blood count (02/17/2025 7:44 AM EDT) WBC 8.5 4.8 - 10.8 K/[facility] LAB HEMETOLOGY METHOD 02/17/2025 11:09 AM EDT [facility] RBC 4.10(L) 4.50 - 5.50 M/[facility] LAB HEMETOLOGY METHOD 02/17/2025 11:09 AM EDT [facility] Hemoglobin 11.5(L) 13.5 - 17.5 g/dL LAB HEMETOLOGY METHOD 02/17/2025 11:09 AM EDT [facility] Hematocrit 35.2(L) 42.0 - 54.0 % LAB HEMETOLOGY METHOD 02/17/2025 11:09 AM EDT [facility] MCV 86.7 79.0 - 98.0 FL LAB HEMETOLOGY METHOD 02/17/2025 11:09 AM EDT [facility] MCH 28.3 27.0 - 32.0 pcg LAB HEMETOLOGY METHOD 02/17/2025 11:09 AM EDT [facility] MCHC 32.7 32.0 - 37.0 g/dL LAB HEMETOLOGY METHOD 02/17/2025 11:09 AM EDT [facility] RDW 13.3 11.0 - 15.0 % LAB HEMETOLOGY METHOD 02/17/2025 11:09 AM [facility] Platelets 246 130 - 400 K/mcL LAB HEMETOLOGY METHOD 02/17/2025 11:09 AM EDT [facility] MPV 9.9 7.0 - 11.0 FL LAB HEMETOLOGY METHOD 02/17/2025 11:09 AM [facility] NRBC 0.0 <1.0 % LAB HEMETOLOGY METHOD 02/17/2025 11:09 AM [facility] NRBC Absolute 0.00 <0.10 K/mcL LAB HEMETOLOGY METHOD 02/17/2025 11:09 AM T [facility] Blood Venous blood specimen / Unknown Venipuncture / Unknown 02/17/2025 7:44 AM EDT 02/17/2025 10:36 AM EDT us Gris Rousseau MD LAB BLOOD ORDERABLES Fin al Result [facility] [address] [place] [address], * Creatine kinase (02/17/2025 7:44 AM EDT) Total CK 30 22 - 269 unit/L LAB CHEMISTRY METHOD 02/17/2025 1:48 PM EDT [facility] Blood Venous blood specimen / Unknown Venipuncture / Unknown 02/17/2025 7:44 AM EDT 02/17/2025 10:36 AM EDT us Gris Rousseau MD LAB BLOOD ORDERABLES Fin al Result [facility] [address] [place] [address], documented in this encounter Visit Diagnoses Diagnosis Sepsis, unspecified organism (CMS/HCC V24, CMS/HCC V28) documented in this encounter Additional Health Concerns Infection Onset Date Last Indicated Resolved Time ESBL 01/15/2025 01/16/2025 C. difficile Rule-Out 03/28/2025 03/27/20252024 10:26 AM EDT documented as of this encounter Care Teams Technical Sales Consultant Relationship Specialty Start Date End Date Zay Bhagat MD [address] [place] [address] PCP - General 05/30/23 documented as of this encounter
--- OUTSIDE RECORDS SUMMARY | 2025-04-30 15:23 | XMS_ITS | Clinical Summary ---
Author Organization [facility] Address [address] [place] [phone] Phone Care Team Providers Care Scrap Iron Loader Name Role Phone Benjamin Meadows MD Primary Care Provider [phone] Allergies Active Allergy Reactions Criticality Noted Date Comments Meperidine High 04/19/2018 Medications aspirin (ASPIR-81 ORAL) Acti ve diphenhydrAMINE (BENADRYL) 25 mg capsule 25 mg. Active amLODIPine-rahsaad zepril (LOTREL) 10-20 mg per capsule Active QUEtiapine (SEROQUEL) 50 MG tablet Active hydrOXYzine (VISTARIL) 25 MG capsule Take 2 capsules (50 mg total) by mouth 4 (four) times a day as needed for itching or anxiety. 20 capsule 04/19/2018 Active Social History Tobacco Use Types Packs/Day Years [...] PM EDT Sexual Orientation Not on file Last Filed Vital Signs Vital Sign Reading Time Taken Comments Blood Pressure 153/89 06/20/2018 4:45 PM EDT Pulse 77 06/20/2018 4:45 PM EDT Temperature 36.4 C (97.6 F) 06/20/2018 4:45 PM EDT Respiratory Rate 18 06/20/2018 1:33 PM EDT Oxygen Saturation 100% 06/20/2018 4:45 PM EDT Inhaled Oxygen Concentration - - Weight 77.1 kg (170 lb) 06/20/2018 1:33 PM EDT Height 176.5 cm (5' 9.5 ) 06/20/2018 1:33 PM EDT Body Mass Index 24.74 06/20/2018 1:33 PM EDT Plan of Treatment Health Maintenance Due Date Last Done Comments Adult Td,Tdap Booster 1949 LIPID PANEL 1949 DEPRESSION SCREENING 1961 HEPATITIS C SCREENING 1967 COLOGUARD 1994 COLONOSCOPY 1994 COLORECTAL CANCER SCREENING 1994 FIT TEST 1994 FOBT 1994 SIGMOIDOSCOPY 1994 VIRTUAL COLONOSCOPY 1994 PNEUMOCOCCAL VACCINES (50+ years) (1 of 1 - PCV) 1999 ZOSTER VACCINES (1 of 2) 1999 COVID-19 VACCINE (4 - 2023- season) 2024 10/05/2021, 03/05/2021, 02/05/2021 CREATININE LEVEL 05/25/2024 05/25/2023, , 05/19/2023, Additional history exists POTASSIUM LEVEL 05/25/2024 05/25/2023, 05/05, 05/19/2023, Additional history exists RSV VACCINE (1 - 1-dose 75+ series) 2024 SMOKING STATUS SCREENING (Once After 26 Yrs) Completed 06/20/2018 HEPATITIS A VACCINES Aged Out No long er eligible based on patient's age to complete this topic HIB VACCINES Aged Out No longer eligi ble based on patient's age to complete this topic MENINGOCOCCAL VACCINES (ACWY) Aged Out No longer eligible based on patient's age to complete this topic MENINGOCOCCAL VACCINES (B) Aged Out N o longer eligible based on patient's age to complete this topic Medical Devices Not on file Procedures Procedure Name Priority Date/Time Associated Diagnosis Comments BASIC METABOLIC PANEL Routine 05/25/2023 6:14 AM EDT Hypomagnesemia from Last 3 Months or Most Recently Relevant to Health Maintenance Results * (ABNORMAL) Basic metabolic panel (05/25/2023 6:14 AM EDT) SODIUM 142 133 - 146 mmol/L [facility] CHLORIDE 103 96 - 108 mmol/L [facility] POTASSIUM 4.1 3.3 - 5.1 mmol/L [facility] CO2 30 21 - 35 mmol/L [facility] BUN 24(H) 6 - 19 mg/dL [facility] CREATININE 0.70 0.5 - 1.5 mg/dL [facility] GLUCOSE 114(H) 70 - 99 mg/dL [facility] CALCIUM 9.0 8.4 - 10.3 mg/dL [facility] EGFR 97 >59 mL/min/1.7 3m2 [facility] Comment:Estimated glomerular filtration rate calculated using the CKD-EPI refit equation. ANION GAP 13 10 - 20 mmol/L [facility] 05/25/2023 6:14 AM EDT 05/25/2023 11:15 AM EDT us Juancho Clark MD LAB BLOOD ORDERABLES Final Resul t [facility] [address] [place], [place] [phone] from Last 3 Months or Most Recently Relevant to Health Maintenance Insurance MEDICARE PART A & B [facility] MEDICARE REPLACEMENT [address] [place] [id number] MEDICARE PART A & B [facility] MEDICARE REPLACEMENT [address] [place] [address] MEDICARE PART A & B [id number] [place] [address] MEDICARE REPLACEMENT Member Subscriber Plan / Payer (Ef fective 2021-Present) Name:Gadiel Arevalo Relation to Subscriber:Self Name:Gadiel Arevalo Payer ID:[id number] (NAIC) Type:Medicare Address: [place] [id number] [place] [phone] MEDICARE PART A & B [facility] MEDICARE REPLACEMENT MEDICARE PART A & B MEDICARE REPLACEMENT MEDICARE PART A & B MEDICARE REPLACEMENT MEDICARE PART A & B [facility] MEDICARE REPLACEMENT MEDICARE PART A & B [facility] MEDICARE REPLACEMENT MEDICARE PART A & B [facility] MEDICARE REPLACEMENT Care Teams Scrap Iron Loader Relationship Specialty Start Date End Date Benjamin Meadows MD [address] [place] [phone] PCP - General Internal Medicine 04/19/18 Additional Source Comments The information contained in this document represents components of the legal health record. It is not the complete legal health record.[facility]
--- OUTSIDE RECORDS SUMMARY | 2025-04-30 15:23 | XMS_ITS | Clinical Summary ---
Author Organization [address] [place] [address] [place] [phone] Phone Care Team Providers Care Car Carder Name Role Phone Zay Bhagat MD Primary Care Provider Allergies Active Allergy Reactions Criticality Noted Date Comments Meperidine 07/25/2023 Medications blood-glucose meter kit Use to test blood sugar 3 times daily. 4 Active CALCIUM CARBONATE ORAL Take by mouth. Active flash glucose scanning reader (FreeStyle Bill 2 Garden) misc 1 Device by Does not apply [...] Noted Date Diagnosed Date Delusions of parasitosis ([facility] V24, [facility] V 28) 12/25/2023 Diabetic peripheral neuropathy ([facility] V24, [facility] V28) 12/25/2023 Nephrolithiasis 12/25/2023 Overview (06/06/2024): Last Assessment & Plan: Nonobstructing left renal calculus noted incidentally on CT scan in November 2023 Type 2 diabetes mellitus wit h hyperglycemia, without long-term current use of insulin ([facility] V24, [facility] V28) 12/25/2023 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 SVT (supraventricular tachycardia) ([facility] V24) 11/15/2023 Overview (06/06/2024): - Was noted to have episodes of a narrow complex tachycardia that was short- lived in the 150s to 160s during his hospitalization at [facility] for which he was initiated on metoprolol which was subsequently decreased in dose at a subsequent [facility] hospitalization for orthostatic hypotension and volume depletion Last Assessment & Plan: No obvious recurrences, continue current metoprolol. Abnormal thyroid blood test 06/06/2023 Alcohol-induced chronic panc reatitis ([facility] V24, [facility] V28) 06/06/2023 Alcohol use disorder 06/06/2023 Chronic heart failure with p reserved ejection fraction (CMS/[facility] V24, [facility] V28) 06/06/2023 Overview (06/06/2024): - Hospitalized at [facility] in April 2023 after a mechanical fall [...] under SVT section - Echocardiogram during his [facility] hospitalization in April 2023 showed moderate, concentric LV hypertrophy with normal cavity size and systolic function, normal regional wall motion with ejection fraction of 55 to 60%, normal RV size and systolic function, dilated aortic root at 4 cm and ascending aorta at 4 cm, no hemodynamically significant valve disease - Subsequently hospitalized at [facility] (records are not scanned into [facility]) in May 2023 6 days after [...] Encounters Date Type Department Care Team Description 04/11/2025 Lab Requisition [facility] [address] [place] [phone] Gris Rousseau MD Essential (primary) hypertension; Chronic kidney disease, unspecified 04/02/2025 Lab Requisition [facility] [address] [place] [phone] Gris Rousseau MD Altered mental status, unspecified 03/28/2025 Lab Requisition [facility] [address] [place] [phone] Gris Rousseau MD Diarrhea, unspecified 03/10/2025 Lab Requisition [facility] [address] [place] [phone] Gris Rousseau MD Fracture of other parts of pelvis, subsequent encounter for fracture with routine healing; Type 2 diabetes mellitus without complications ([facility] V24, [facility] V28) 02/14/2025 Lab Requisition [facility] [address] [place] [phone] Gris Rousseau MD Sepsis, unspecified organism ([facility] V24, [facility] V28) 02/12/2025 Lab Requisition [facility] [address] [place] [phone] Gris Rousseau MD Type 2 diabetes mellitus with diabetic polyneuropathy ([facility] V24, [facility] V28) 02/07/2025 Lab Requisition [facility] [address] [place] [phone] Gris Rousseau MD Sepsis, unspecified organism ([facility] V24, [facility] V28) 02/02/2025 Lab Requisition [facility] [address] [place] [phone] Gris Rousseau MD Sepsis, unspecified organism ([facility] V24, [facility] V28) 01/30/2025 Lab Requisition [facility] [address] [place] [phone] Gris Rousseau MD Dehydration 01/26/2025 Lab Requisition [facility] [address] [place] [phone] Gris Rousseau MD Sepsis, unspecified organism ([facility] V24, [facility] V28) from Last 3 Months Immunizations Name [...] CARDIAC CATHETERIZATION Done on 04/11/2024 at [facility] w [facility] Indications:Chest tightness w /exertion, recent angina /dyspnea [...] of 3 - Risk 3-dose series) 2009 Falls Risk Assessment 10/08/2023 Hepatitis C Screening 10/08/2023 Medicare Annual Wellness Visit 10/08/2023 Social Influencers of Health Screening 10/08/2023 Zoster Vaccines (2 of 2) 11/29/2023 10/04/2023 COVID-19 Vaccine ( season) 2024 06/13/2023, 07/11/2022, 10/05/2021, Additional history exists RSV Immunization Adult Patients (1 - 1-dose 75+ series) 2024 Depression Screening 09/04/2024 Diabetes: Annual Foot Exam 12/24/2024 12/25/2023 Diabetes: Annual Urine Albumin-Creatinine Ratio (uACR) 03/22/2025 03/22/2024 Influenza Vaccine (#1) 2025 , 07/11/2022, 06/07/2021, Additional history exists Diabetes: Blood Sugar Control Test (HGBA1C) 05/16/2025 11/13/2024, 08/19/2024, 03/22/2024, Additional history exists Diabetes: Annual GFR (Glomerular Filtration Rate) 04/11/2026 04/11/2025, 04/02/2025, 03/10/2025, Additional history exists Hypertension/CHF/CAD Annual BMP Blood Test 04/11/2026 04/11/2025, 04/02/2025, 03/10/2025, Additional history exists Cholesterol Screening (Lipid Panel) [...] kidney disease, unspecified COMPREHENSIVE METABOLIC PANEL Routine 04/02/2025 8:47 AM EDT Altered mental status, unspecified COMPLETE BLOOD COUNT Routine 04/02/2025 8:47 AM EDT Altered mental status, unspecified CLOSTRIDIUM DIFFICILE TOXIN Routine 03/27/2025 6:00 AM EDT Diarrhea, unspecified COMPREHENSIVE METABOLIC PANEL Routine 03/10/2025 9:33 AM EDT Fracture of other parts of pelvis, subsequent encounter for fracture with routine healing Type 2 diabetes mellitus without complications ([facility] V24, [facility] V28) COMPLETE BLOOD COUNT Routine 03/10/2025 9:33 AM EDT Fracture of other parts of pelvis, subsequent encounter for fracture with routine healing Type 2 diabetes mellitus without complications (CMS/HCC V24, CMS/HCC V28) COMPREHENSIVE METABOLIC PANEL Routine 02/17/2025 7:44 AM EDT Sepsis, unspecified organism (CMS/HCC V24, CMS/HCC V28) COMPLETE BLOOD COUNT Routine 02/17/2025 7:44 AM EDT Sepsis, unspecified organism (CMS/HCC V24, CMS/HCC V28) CREATINE KINASE Routine 02/17/2025 7:44 AM EDT Sepsis, unspecified organism (CMS/HCC V24, CMS/HCC V28) BASIC METABOLIC PANEL Routine 02/12/2025 7:12 AM EDT Type 2 diabetes mellitus with diabetic polyneuropathy (CMS/HCC V24, CMS/HCC V28) COMPREHENSIVE METABOLIC PANEL Routine 02/10/2025 7:55 AM EDT Sepsis, unspecified organism (CMS/HCC V24, CMS/HCC V28) COMPLETE BLOOD COUNT Routine 02/10/2025 7:55 AM EDT Sepsis, unspecified organism (CMS/HCC V24, CMS/HCC V28) CREATINE KINASE Routine 02/10/2025 7:55 AM EDT Sepsis, unspecified organism (CMS/HCC V24, CMS/HCC V28) CREATINE KINASE Routine 02/03/2025 8:30 AM EDT Sepsis, unspecified organism (CMS/HCC V24, CMS/HCC V28) COMPREHENSIVE METABOLIC PANEL Routine 02/03/2025 8:30 AM EDT Sepsis, unspecified organism (CMS/HCC V24, CMS/HCC V28) COMPLETE BLOOD COUNT Routine 02/03/2025 8:30 AM EDT Sepsis, unspecified organism (CMS/HCC V24, CMS/[facility] V28) BASIC METABOLIC PANEL Routine 01/30/2025 5:24 AM EDT Dehydration CREATINE KINASE Routine 01/28/2025 9:29 AM EDT Sepsis, unspecified organism (CMS/HCC V24, CMS/HCC V28) COMPREHENSIVE METABOLIC PANEL Routine 01/28/2025 9:29 AM EDT Sepsis, unspecified organism (CMS/HCC V24, CMS/[facility] V28) COMPLETE BLOOD COUNT Routine 01/28/2025 9:29 AM EDT Sepsis, unspecified organism (CMS/[facility] V24, CMS/[facility] V28) HEMOGLOBIN A1C Routine 11/13/2024 8:04 AM EDT Essential (primary) hypertension Type 2 diabetes mellitus without complications (CMS/[facility] V24, CMS/[facility] V28) URINE ALBUMIN CREATININE RATIO Routine 03/22/2024 LIPID PANEL Routine 03/22/2024 COLONOSCOPY Routine 02/29/2024 DIABETES FOOT EXAM Routine 12/25/2023 ABDOMINAL AORTIC ANEURYSM SCRREN Routine 09/29/2023 from Last 3 Months or Most Recently Relevant to Health Maintenance Results * (ABNORMAL) Complete blood count (04/11/2025 7:21 AM EDT) Only the most recent of7 resultswithin the time period is included. WBC 10.2 4.8 - 10.8 K/mcL LAB HEMETOLOGY METHOD 04/11/2025 10:30 AM EDT [facility] RBC 4.30(L) 4.50 - 5.50 M/mcL LAB HEMETOLOGY METHOD 04/11/2025 10:30 AM EDT [facility] Hemoglobin 12.0(L) 13.5 - 17.5 g/dL LAB HEMETOLOGY METHOD 04/11/2025 10:30 AM [facility] Hematocrit 36.5(L) 42.0 - 54.0 % LAB HEMETOLOGY METHOD 04/11/2025 10:30 AM [facility] MCV 85.7 79.0 - 98.0 FL LAB HEMETOLOGY METHOD 04/11/2025 10:30 AM [facility] MCH 28.2 27.0 - 32.0 pcg LAB HEMETOLOGY METHOD 04/11/2025 10:30 AM [facility] MCHC 32.9 32.0 - 37.0 g/dL LAB HEMETOLOGY METHOD 04/11/2025 10:30 AM [facility] RDW 15.1(H) 11.0 - 15.0 % LAB HEMETOLOGY METHOD 04/11/2025 10:30 AM [facility] Platelets 188 130 - 400 K/mcL LAB HEMETOLOGY METHOD 04/11/2025 10:30 AM [facility] MPV 10.1 7.0 - 11.0 FL LAB HEMETOLOGY METHOD 04/11/2025 10:30 AM [facility] NRBC 0.0 <1.0 % LAB HEMETOLOGY METHOD 04/11/2025 10:30 AM [facility] NRBC Absolute 0.00 <0.10 K/mcL LAB HEMETOLOGY METHOD 04/11/2025 10:30 AM [facility] Blood Venous blood specimen / Unknown Venipuncture / Unknown 04/11/2025 7:21 AM EDT 04/11/2025 8:45 AM EDT us Gris Rousseau MD LAB BLOOD ORDERABLES Fin al Result [facility] [address] [place] [address], [place] [phone] * (ABNORMAL) Comprehensive metabolic panel (04/11/2025 7:21 AM EDT) Only the most recent of7 resultswithin the time period is included. Sodium 138 133 - 145 mmol/L LAB CHEMISTRY METHOD 04/11/2025 9:33 AM [facility] Potassium 3.8 3.5 - 5.5 mmol/L LAB CHEMISTRY METHOD 04/11/2025 9:33 AM [facility] Chloride 104 96 - 110 mmol/L LAB CHEMISTRY METHOD 04/11/2025 9:33 AM [facility] CO2 30 21 - 32 mmol/L LAB CHEMISTRY METHOD 04/11/2025 9:33 AM [facility] Anion Gap 4 3 - 11 LAB CHEMISTRY METHOD 04/11/2025 9:33 AM [facility] Glucose 110(H) 70 - 100 mg/dL LAB CHEMISTRY METHOD 04/11/2025 9:33 AM [facility] BUN 15 5 - 25 mg/dL LAB CHEMISTRY METHOD 04/11/2025 9:33 AM [facility] Creatinine 0.90 0.70 - 1.30 mg/dL LAB CHEMISTRY METHOD 04/11[facility]25 [facility] eGFR 89 >=60 mL/min/1. 73m2 LAB CHEMISTRY METHOD 04/11/2025 9:33 AM [facility] Comment:Calculation based on the Chronic Kidney Disease Epidemiology Collaboration (CKD-EPI) equation refit without adjustment for race. BUN/Creatinine Ratio 16.7 LAB CHEMISTRY METHOD 04/11/2025 9:33 AM [facility] Calcium 9.0 8.5 - 10.5 mg/dL LAB CHEMISTRY METHOD 04/11/2025 9:33 AM [facility] AST (SGOT) 12 10 - 42 unit/L LAB CHEMISTRY METHOD 04/11/2025 9:33 AM [facility] ALT (SGPT) 14 10 - 60 unit/L LAB CHEMISTRY METHOD 04/11/2025 9:33 AM [facility] Alkaline Phosphatase 91 42 - 121 unit/L LAB CHEMISTRY METHOD 04/11/2025 9:33 AM [facility] Total Protein 6.6 6.0 - 8.0 g/dL LAB CHEMISTRY METHOD 04/11/2025 9:33 AM [facility] Albumin 3.2 3.2 - 5.0 g/dL LAB CHEMISTRY METHOD 04/11/2025 9:33 AM [facility] Total Bilirubin 0.6 0.0 - 1.4 mg/dL LAB CHEMISTRY METHOD 04/11/2025 9:33 AM [facility] Blood Venous blood specimen / Unknown Venipuncture / Unknown 04/11/2025 7:21 AM EDT 04/11/2025 8:45 AM EDT Gris Rousseau MD LAB BLOOD ORDERABLES Fin al Result [facility] [address] [place] [address], * Clostridium difficile toxin (03/27/2025 6:00 AM EDT) Clostridium difficile GDH Antigen Negative Negative 03/28/2025 10:26 AM EDT [facility] C difficile Toxins A+B, EIA Negative Negative 03/28/2025 10:26 AM [facility] Comment:NEGATIVE FOR TOXIN P RODUCING CLOSTRIDIOIDES DIFFICILE, NO ADDITIONAL TESTING IS NECESSARY. Stool Rectum structure / Unknown Non-blood Collection / Unknown 03/27/2025 6:00 AM EDT 03/28/2025 9:15 AM EDT Gris Rousseau MD LAB MICROBIOLOGY - GENER AL ORDERABLES Final Result Performing Organization Address [facility]/ZIP Co de Phone Number [facility] [address] [place] [address], [place] [phone] * Creatine kinase (02/17/2025 7:44 AM EDT) Only the most recent of4 resultswithin the time period is included. [facility] Total CK 30 22 - 269 unit/L LAB CHEMISTRY METHOD 02/17/2025 1:48 PM EDT [facility] Blood Venous blood specimen / Unknown Venipuncture / Unknown 02/17/2025 7:44 AM EDT 02/17/2025 10:36 AM EDT Gris Rousseau MD LAB BLOOD ORDERABLES Fin al Result Performing Organization Address [facility] de Phone Number [facility] [address] [place] [address], [place] [phone] * (ABNORMAL) Basic metabolic panel (02/12/2025 7:12 AM EDT) Only the most recent of2 resultswithin the time period is included. [facility] Sodium 144 133 - 145 mmol/L LAB CHEMISTRY METHOD 02/12/2025 1:46 PM EDT [facility] Potassium 3.9 3.5 - 5.5 mmol/L LAB CHEMISTRY METHOD 02/12/2025 1:46 PM EDT [facility] Chloride 112(H) 96 - 110 mmol/L LAB CHEMISTRY METHOD 02/12/2025 1:46 PM EDT [facility] CO2 23 21 - 32 mmol/L LAB CHEMISTRY METHOD 02/12/2025 1:46 PM EDT [facility] Anion Gap 9 3 - 11 LAB CHEMISTRY METHOD 02/12/2025 1:46 PM EDT [facility] Glucose 40(L) 70 - 100 mg/dL LAB CHEMISTRY METHOD 02/12/2025 1:46 PM EDT [facility] BUN 34(H) 5 - 25 mg/dL LAB CHEMISTRY METHOD 02/12/2025 1:46 PM EDT [facility] Creatinine 1.08 0.70 - 1.30 mg/dL LAB CHEMISTRY METHOD 02/12/2025 1:46 PM EDT [facility] eGFR 72 >=60 mL/min/1. 73m2 LAB CHEMISTRY METHOD 02/12/2025 1:46 PM EDT [facility] Comment:Calculation based on the Chronic Kidney Disease Epidemiology Collaboration (CKD-EPI) equation refit without adjustment for race. BUN/Creatinine Ratio 31.5 LAB CHEMISTRY METHOD 02/12/2025 1:46 PM EDT [facility] Calcium 9.4 8.5 - 10.5 mg/dL LAB CHEMISTRY METHOD 02/12/2025 1:46 PM EDT [facility] Blood Venous blood specimen / Unknown Venipuncture / Unknown 02/12/2025 7:12 AM EDT 02/12/2025 10:43 AM EDT us Gris Rousseau MD LAB BLOOD ORDERABLES Fin al Result [facility] [address] [place] [address], * (ABNORMAL) Hemoglobin A1c (11/13/2024 8:04 AM EDT) Hemoglobin A1C 6.6(H) <6.5 % LAB CHEMISTRY METHOD 11/13/2024 2:04 PM EDT [facility] Mean Bld Glu Estim. 143 mg/dL LAB CHEMISTRY METHOD 11/13/2024 2:04 PM EDT [facility] Blood Venous blood specimen / Unknown Venipuncture / Unknown 11/13/2024 8:04 AM EDT 11/13/2024 10:43 AM EDT Loren Rothman NP LAB BLOOD ORDERABLES Final Resul t [facility] ([facility]) [facility] [address] [place] [address], * Urine Albumin Creatinine Ratio (03/22/2024) Pathologist [facility] Urine Albumin Creatinine Ratio abstracted Result [facility] Historical Provider HEALTH MAINTENANCE Final Result * Lipid panel (03/22/2024) [facility] LDL/HDL Ratio 2 0 - 4 Triglycerides 76 0 - 150 mg/dL Cholesterol 84 0 - 200 mg/dL HDL 45 >=40 mg/dL LDL Cholesterol 24 0 - 100 mg/dL Blood Venous blood specimen / Unknown Result [facility] Provider LAB BLOOD ORDERABLES Tonia l Result * Colonoscopy (02/29/2024) [facility] Colonoscopy no interpreta tion,abstr acted Anatomical Region Laterality Modality Other Result [facility] Provider HEALTH MAINTENANCE Final Result * Diabetes Foot Exam (12/25/2023) [facility] Diabetes: Annual Foot Exam abstracted Result [facility] Provider HEALTH MAINTENANCE Final Result * Abdominal Aortic Aneurysm Screen (09/29/2023) [facility] Abdominal Aortic Aneurysm (AAA) Screening abstracted Anatomical Region Laterality Modality Other Result [facility] Historical Provider HEALTH MAINTENANCE Final Result from Last 3 Months or Most Recently Relevant to Health Maintenance Additional Health Concerns Infection Onset Date Last Indicated ESBL 01/15/2025 01/16/2025 Insurance [employer] MEDICARE ADVANTAGE [place]ICA[place] - [place] MEDICARE Advance Directives Documents on File Type Date Recorded Patient Edge Polisher Expl anation Advance Directives and Livin g Will 11/27/2024 10:29 AM [facility] Care Teams Car Carder Relationship Specialty Start Date End Date Zay Bhagat MD [address] [place] [address] PCP - General 05/30/23
--- OUTSIDE RECORDS SUMMARY | 2025-04-30 15:23 | XMS_ITS | Encounter Summary ---
Author Organization [facility] Address [address] [place] [address] Care Team Providers Care Food Service Worker Hospital Name Role Phone Zay Bhagat MD Primary Care Provider Encounter Details Date Type Department Care Team (Late st Contact Info) Description 08/16/2024 Lab Requisition [facility] - Main Lab 299 [facility] [place] [address] Gris Rousseau MD [address] [id number] Heart failure, unspecified (CMS/HCC V24, CMS/HCC V28); [...] Hemoglobin A1c (08/19/2024 9:22 AM EST) Pathologist [facility] Hemoglobin A1C 6.1 <6.5 % LAB CHEMISTRY METHOD 08/19/2024 2:[address] [facility] Mean Bld Glu Estim. 128 mg/dL LAB CHEMISTRY METHOD 08/19/2024 2:[address] [facility] Blood Venous blood specimen / Unknown Venipuncture / Unknown 08/19/2024 9:22 AM EST 08/19/2024 12:07 PM EST us Gris Rousseau MD LAB BLOOD ORDERABLES Fin al Result [facility] [address] [place] [address], * (ABNORMAL) Comprehensive metabolic panel (08/19/2024 9:22 AM EST) [facility] Sodium 135 133 - 145 mmol/L LAB CHEMISTRY METHOD 08/19/2024 5:30 PM [facility] Potassium 4.7 3.5 - 5.5 mmol/L LAB CHEMISTRY METHOD 08/19/2024 5:30 PM [facility] Chloride 101 96 - 110 mmol/L LAB CHEMISTRY METHOD 08/19/2024 5:30 PM [facility] CO2 26 21 - 32 mmol/L LAB CHEMISTRY METHOD 08/19/2024 5:30 PM [facility] Anion Gap 8 3 - 11 LAB CHEMISTRY METHOD 08/19/2024 5:30 PM [facility] Glucose 272(H) 70 - 100 mg/dL LAB CHEMISTRY METHOD 08/19/2024 5:30 PM [facility] BUN 13 5 - 25 mg/dL LAB CHEMISTRY METHOD 08/19/2024 5:30 PM [facility] Creatinine 0.94 0.70 - 1.30 mg/dL LAB CHEMISTRY METHOD 08/19/2024 5:30 PM [facility] eGFR 85 >=60 mL/min/1. 73m2 LAB CHEMISTRY METHOD 08/19/2024 5:30 PM [facility] Comment:Calculation based on the Chronic Kidney Disease Epidemiology Collaboration (CKD-EPI) equation refit without adjustment for race. BUN/Creatinine Ratio 13.8 LAB CHEMISTRY METHOD 08/19/2024 5:30 PM [facility] Calcium 9.4 8.5 - 10.5 mg/dL LAB CHEMISTRY METHOD 08/19/2024 5:30 PM [facility] AST (SGOT) 19 10 - 42 unit/L LAB CHEMISTRY METHOD 08/19/2024 5:30 PM [facility] ALT (SGPT) 25 10 - 60 unit/L LAB CHEMISTRY METHOD 08/19/2024 5:30 PM [facility] Alkaline Phosphatase 58 42 - 121 unit/L LAB CHEMISTRY METHOD 08/19/2024 5:30 PM [facility] Total Protein 6.3 6.0 - 8.0 g/dL LAB CHEMISTRY METHOD 08/19/2024 5:30 PM [facility] Albumin 3.4 3.2 - 5.0 g/dL LAB CHEMISTRY METHOD 08/19/2024 5:30 PM [facility] Total Bilirubin 0.4 0.0 - 1.4 mg/dL LAB CHEMISTRY METHOD 08/19/2024 5:30 PM [facility] Blood Venous blood specimen / Unknown Venipuncture / Unknown 08/19/2024 9:22 AM EST 08/19/2024 12:09 PM EST us Gris Rousseau MD LAB BLOOD ORDERABLES Fin al Result [facility] [address] [place] [address], * (ABNORMAL) Complete blood count (08/19/2024 9:22 AM EST) [facility] Signature WBC 6.0 4.8 - 10.8 K/mcL LAB HEMETOLOGY METHOD 08/19/2024 12:53 PM [facility] RBC 4.10(L) 4.50 - 5.50 M/mcL LAB HEMETOLOGY METHOD 08/19/2024 12:53 PM [facility] Hemoglobin 12.7(L) 13.5 - 17.5 g/dL LAB HEMETOLOGY METHOD 08/19/2024 12:53 PM [facility] Hematocrit 38.2(L) 42.0 - 54.0 % LAB HEMETOLOGY METHOD 08/19/2024 12:[address] [facility] MCV 92.3 79.0 - 98.0 FL LAB HEMETOLOGY METHOD 08/19/2024 12:[address] [facility] MCH 30.7 27.0 - 32.0 pcg LAB HEMETOLOGY METHOD 08/19/2024 12:53 PM [facility] MCHC 33.2 32.0 - 37.0 g/dL LAB HEMETOLOGY METHOD 08/19/2024 12:[address] [facility] RDW 12.2 11.0 - 15.0 % LAB HEMETOLOGY METHOD 08/19/2024 12:53 PM [facility] Platelets 250 130 - 400 K/mcL LAB HEMETOLOGY METHOD 08/19/2024 12:53 PM [facility] MPV 9.5 7.0 - 11.0 FL LAB HEMETOLOGY METHOD 08/19/2024 12:53 PM EST [facility] NRBC 0.0 <1.0 % LAB HEMETOLOGY METHOD 08/19/2024 12:[address] [facility] NRBC Absolute 0.00 <0.10 K/mcL LAB HEMETOLOGY METHOD 08/19/2024 12:[address] [facility] Blood Venous blood specimen / Unknown Venipuncture / Unknown 08/19/2024 9:22 AM EST 08/19/2024 12:07 PM EST us Gris Rousseau MD LAB BLOOD ORDERABLES Fin al Result [facility] [address] [place] [address], documented in this encounter Visit Diagnoses Diagnosis Heart failure, unspecified (CMS/HCC V24, CMS/[facility] V28) Heart failure, unspecified Anemia, unspecified Type 2 diabetes mellitus without complications (CMS/HCC V24, CMS/[facility] V28) documented in this encounter Additional Health Concerns Infection Onset Date Last Indicated Resolved Time Respiratory Rule-Out 11/08/2024 11/08/2024 025 4:47 PM EST Influenza 11/08/2024 11/08/2024 12/02/2024 7:05 PM EDT ESBL 01/15/2025 01/16/2025 C. difficile Rule-Out 03/28/2025 03/27/20252024 10:26 AM EDT documented as of this encounter Care Teams Food Service Worker Hospital Relationship Specialty Start Date End Date Zay Bhagat MD [address] [place] [address] PCP - General 05/30/23 documented as of this encounter
--- OUTSIDE RECORDS SUMMARY | 2025-04-30 15:23 | XMS_ITS | Encounter Summary ---
Author Organization [facility] Address [address] [place] [address] Care Team Providers Care Opthalmic Tech Name Role Phone Zay Bhagat MD Primary Care Provider Encounter Details Date Type Department Care Team (Late st Contact Info) Description 02/12/2025 Lab Requisition [facility] - Main Lab 299 [facility] [place] [address] Gris Rousseau MD [address] [address] Type 2 diabetes mellitus with diabetic polyneuropathy (CMS/HCC V24, CMS/HCC V28) Social History Tobacco [...] Associated Diagnosis Comments BASIC METABOLIC PANEL Routine 02/12/2025 7:12 AM EDT Type 2 diabetes mellitus with diabetic polyneuropathy (CMS/HCC V24, CMS/HCC V28) documented in this encounter Results * (ABNORMAL) Basic metabolic panel (02/12/2025 7:12 AM EDT) Sodium 144 133 - 145 mmol/L LAB CHEMISTRY METHOD 02/12/2025 1:46 PM EDT [facility] Potassium 3.9 3.5 - 5.5 mmol/L LAB CHEMISTRY METHOD 02/12/2025 1:46 PM [facility] Chloride 112(H) 96 - 110 mmol/L LAB CHEMISTRY METHOD 02/12/2025 1:46 PM [facility] CO2 23 21 - 32 mmol/L LAB CHEMISTRY METHOD 02/12/2025 1:46 PM [facility] Anion Gap 9 3 - 11 LAB CHEMISTRY METHOD 02/12/2025 1:46 PM T [facility] Glucose 40(L) 70 - 100 mg/dL LAB CHEMISTRY METHOD 02/12/2025 1:46 PM [facility] BUN 34(H) 5 - 25 mg/dL LAB CHEMISTRY METHOD 02/12/2025 1:46 PM [facility] Creatinine 1.08 0.70 - 1.30 mg/dL LAB CHEMISTRY METHOD 02/12/2025 1:46 PM [facility] eGFR 72 >=60 mL/min/1. 73m2 LAB CHEMISTRY METHOD 02/12/2025 1:46 PM [facility] Comment:Calculation based on the Chronic Kidney Disease Epidemiology Collaboration (CKD-EPI) equation refit without adjustment for race. BUN/Creatinine Ratio 31.5 LAB CHEMISTRY METHOD 02/12/2025 1:46 PM [facility] Calcium 9.4 8.5 - 10.5 mg/dL LAB CHEMISTRY METHOD 02/12/2025 1:46 PM [facility] Blood Venous blood specimen / Unknown Venipuncture / Unknown 02/12/2025 7:12 AM EDT 02/12/2025 10:43 AM EDT us Gris Rousseau MD LAB BLOOD ORDERABLES Fin al Result [facility] [address] [place] [address], documented in this encounter Visit Diagnoses Diagnosis Type 2 diabetes mellitus with diabetic polyneuropathy ([facility] V24, [facility] V28) documented in this encounter Additional Health Concerns Infection Onset Date Last Indicated Resolved Time ESBL 01/15/2025 01/16/2025 C. difficile Rule-Out 03/28/2025 03/27/20252024 10:26 AM EDT documented as of this encounter Care Teams Opthalmic Tech Relationship Specialty Start Date End Date Zay Bhagat MD [address] [place] [address] PCP - General 05/30/23 documented as of this encounter
--- OUTSIDE RECORDS SUMMARY | 2025-04-30 15:23 | XMS_ITS | Encounter Summary ---
Author Organization [facility] Address [address] [place] [address] Care Team Providers Care Logging Supervisor Name Role Phone Zay Bhagat MD Primary Care Provider Encounter Details Date Type Department Care Team (Latest Contact Info) Description 11/13/2024 Lab Requisition [facility] - Main Lab [address] [facility] [place] [address] Loren Rothman NP [address] [place] [address] Essential (primary) hypertension; Type 2 [...] mellitus without complications (CMS/HCC V24, CMS/HCC V28) HEMOGLOBIN A1C Routine 11/13/2024 8:04 AM EDT Essential (primary) hypertension Type 2 diabetes mellitus without complications (CMS/HCC V24, CMS/HCC V28) BASIC METABOLIC PANEL Routine 11/13/2024 8:04 AM EDT Essential (primary) hypertension Type 2 diabetes mellitus without complications (CMS/HCC V24, CMS/HCC V28) documented in this encounter Results * (ABNORMAL) Hemoglobin A1c (11/13/2024 8:04 AM EDT) Hemoglobin A1C 6.6(H) <6.5 % LAB CHEMISTRY METHOD 11/13/2024 2:04 PM EDT [facility] Mean Bld Glu Estim. 143 mg/dL LAB CHEMISTRY METHOD 11/13/2024 2:04 PM EDT [facility] Blood Venous blood specimen / Unknown Venipuncture / Unknown 11/13/2024 8:04 AM EDT 11/13/2024 10:43 AM EDT Loren Rothman CLINICAL SUPPORT TECH LAB BLOOD ORDERABLES Final Resul t [facility] [address] [place] [address], * (ABNORMAL) Basic metabolic panel (11/13/2024 8:04 AM EDT) Pathologist [facility] Sodium 143 133 - 145 mmol/L LAB CHEMISTRY METHOD 11/13/2024 1:01 PM [facility] Potassium 3.9 3.5 - 5.5 mmol/L LAB CHEMISTRY METHOD 11/13/2024 1:01 PM [facility] Chloride 109 96 - 110 mmol/L LAB CHEMISTRY METHOD 11/13/2024 1:01 PM [facility] CO2 23 21 - 32 mmol/L LAB CHEMISTRY METHOD 11/13/2024 1:01 PM [facility] Anion Gap 11 3 - 11 LAB CHEMISTRY METHOD 11/13/2024 1:01 PM [facility] Glucose 154(H) 70 - 100 mg/dL LAB CHEMISTRY METHOD 11/13/2024 1:01 PM [facility] BUN 15 5 - 25 mg/dL LAB CHEMISTRY METHOD 11/13/2024 1:01 PM EDT [facility] Creatinine 0.95 0.70 - 1.30 mg/dL LAB CHEMISTRY METHOD 11/13/2024 1:01 PM EDT [facility] eGFR 83 >=60 mL/min/1. 73m2 LAB CHEMISTRY METHOD 11/13/2024 1:01 PM EDT [facility] Comment:Calculation based on the Chronic Kidney Disease Epidemiology Collaboration (CKD-EPI) equation refit without adjustment for race. BUN/Creatinine Ratio 15.8 LAB CHEMISTRY METHOD 11/13/2024 1:01 PM EDT [facility] Calcium 8.9 8.5 - 10.5 mg/dL LAB CHEMISTRY METHOD 11/13/2024 1:01 PM T [facility] Blood Venous blood specimen / Unknown Venipuncture / Unknown 11/13/2024 8:04 AM EDT 11/13/2024 10:43 AM EDT Loren Rothman NP LAB BLOOD ORDERABLES Final Resul t [facility] [address] [place] [address], * (ABNORMAL) Complete blood count (11/13/2024 8:04 AM EDT) WBC 5.7 4.8 - 10.8 K/mcL LAB HEMETOLOGY METHOD 11/13/2024 12:18 PM EDT [facility] RBC 4.00(L) 4.50 - 5.50 M/mcL LAB HEMETOLOGY METHOD 11/13/2024 12:18 PM EDT [facility] Hemoglobin 11.5(L) 13.5 - 17.5 g/dL LAB HEMETOLOGY METHOD 11/13/2024 12:18 PM T [facility] Hematocrit 35.7(L) 42.0 - [...] Resul t [facility] [address] [place] [address], documented in this encounter Visit Diagnoses Diagnosis Essential (primary) hypertension Unspecified essential hypertension Type 2 diabetes mellitus without complications (CMS/HCC V24, CMS/HCC V28) documented in this encounter Additional Health Concerns Infection Onset Date Last Indicated Resolved Time Influenza 11/08/2024 11/08/2024 12/02/2024 7:05 PM EDT ESBL 01/15/2025 01/16/2025 C. difficile Rule-Out 03/28/2025 03/27/20252024 10:26 AM EDT documented as of this encounter Care Teams Logging Supervisor Relationship Specialty Start Date End Date Zay Bhagat MD [address] [place] [address] PCP - General 05/30/23 documented as of this encounter
--- NOTE | 2025-04-30 15:37 | PC.NURSE ---
pt rectal temp 96.8- PA notifed, Martin De Paz applied. pt medicated per MAR
[2025-04-30 15:52] LABS: Reflex Lactate? Lactic Acid Added
[2025-04-30 16:38] LABS: ~Lactic Acid-LAB USE ONLY 3.5 mmol/L (0.5-2.0)
[2025-04-30 17:26] LABS: Glucose, Whole Blood 65 mg/dL (60-115)
[2025-04-30] MEDS: Dextrose 10 % 1,000 ML 75 ML IVCONT (17:35)
--- NOTE | 2025-04-30 18:07 | PM.IMHP ---
History of Present Illness Date of Service: 04/30/25 Attending physician on admission: Rubén Dimas Chief Complaint: Altered mental status Gadiel Arevalo is a 74 years old man with past medical history significant for chronic indwelling urinary catheter, ESBL, type 2 diabetes mellitus on Tresiba, glipizide + metformin, essential hypertension, hyperlipidemia. hemorrhagic CVA and HFpEF who was brought to the ED the from his SNF after he was found to be altered. Patient complained of pelvic tenderness. He denied any headache, chest pain, shortness on breath, cough, nausea, vomiting or diarrhea. In the ED he was found to have hypothermia (lowest 95.5) and bradycardia, 48 bpm. There is no hypotension. Last blood pressure is 121/71. Blood workup showed WBC count of 8.3. Hemoglobin is 11.7, at baseline and platelets are normal. BH is 7.38 and pCO2 43. There are no electrolyte imbalances. BUN is 21 and creatinine 0.97. Glucose dropped to 65. Next lactic acidosis of 3.5. LFTs are normal. Head CT scan showed no acute intracranial abnormalities. CXR is negative for pneumonia. ECG showed sinus bradycardia of 53 beats per minute with no acute ischemic changes. ED tx: Invanz 1 g IV, NS 2 L bolus Review of Systems Review of Systems: Limited due to altered mental status [facility] Medical History Pancreatic mass Acute exacerbation of CHF (congestive heart failure) Influenza A Lethargy BPH loc w urin obs/LUTS Severe recurrent major depressive disorder with psychosis CHF (congestive heart failure) Hemorrhagic stroke Cholelithiasis Alcohol use disorder HTN (hypertension) Surgical History No pertinent past surgical history Social History Household Members: Other Household Members Other:: [facility] Do you presently have visiting nurse or other home services: No Alcohol intake: current Alcohol intake frequency: 0-2 drinks per day Alcohol type: hard liquor Comment: sitter at bedside Patient Tobacco Use Status: Former Tobacco user Second Hand Smoke Exposure: No Advance Directives: Yes Advance Directives on File: Yes Advance Directives Date on File: 04/12/23 service: No Current occupational status: disabled Meds Allergies Allergy/AdvReac Type Severity Reaction Status Date / Time meperidine (From DEMEROL) Allergy Unknown UNKNOWN Verified 04/30/25 14:01 Active Medications: Current Medications Acetaminophen (Acetaminophen 325 Mg Tablet) 975 mg PO Q6H PRN PRN Reason: Pain, Mild 1-3,fever,headache Calcium Carbonate (Calcium Carbonate 750 Mg Tab.Chew) 750 mg PO Q4H PRN PRN Reason: Heartburn Heparin Sodium (Porcine) (Heparin Sodium,Porcine 5,000 Unit/Ml Vial) 5,000 unit SUBCUT Q12H [facility] Dextrose (D10) 1,000 mls @ 75 mls/hr IVCONT .[id number] [facility] Last Admin: 04/30/25 17:35 Dose: 75 mls/hr Magnesium Hydroxide (Milk Of Magnesia 30 Ml Oral.Susp) 30 ml PO DAILY PRN PRN Reason: Constipation Melatonin (Melatonin 3 Mg Tablet) 6 mg PO BEDTIME PRN PRN Reason: Insomnia Sodium Chloride (0.9 % Sodium Chloride Flush 3 Ml Syringe) 3 ml IVFLUSH QSHIFT [facility] Home Medications ?Medication ?Instructions ?Recorded ?Confirmed ?Last Taken ?Type amlodipine 5 mg tablet 5 mg PO DAILY 08/14/24 04/30/25 08/13/24 History Held on 01/21/25. Instructions: Monitor BP for 1 week before restarting atorvastatin 40 mg tablet 40 mg PO BEDTIME 08/14/24 04/30/25 08/13/24 History clopidogrel 75 mg tablet 75 mg PO DAILY 08/14/24 04/30/25 08/13/24 History insulin degludec 100 unit/mL (3 18 unit subcut DAILY 08/14/24 04/30/25 08/13/24 History mL) subcutaneous pen (Tresiba FlexTouch U-100 insulin) metformin 1,000 mg tablet 1,000 mg PO BID 08/14/24 04/30/25 08/13/24 History mirtazapine 15 mg tablet 15 mg PO BEDTIME 08/14/24 04/30/25 08/13/24 History trazodone 100 mg tablet 100 mg PO BEDTIME 08/14/24 04/30/25 08/13/24 History insulin lispro 100 unit/mL 1 sliding scale dose subcut TIDAC 09/24/24 04/30/25 Unknown History subcutaneous solution (Humalog U-100 Insulin) acetaminophen 325 mg tablet 650 mg PO Q6H PRN Fever Or Pain 04/30/25 04/30/25 Unknown History metoprolol tartrate 25 mg tablet 12.5 mg PO BID 04/30/25 04/30/25 Unknown History risperidone 1 mg tablet 1 mg PO BID 04/30/25 04/30/25 Unknown History tamsulosin 0.4 mg capsule 0.4 mg PO DAILY 04/30/25 04/30/25 Unknown History tramadol 25 mg tablet 25 mg PO Q12H PRN pain 04/30/25 04/30/25 Unknown History Physical Exam Vital Signs and Narrative: Vital Signs: Last Vital Signs Temp 95.5 F L 04/30/25 17:41 Pulse 63 04/30/25 17:41 Resp 12 04/30/25 17:41 BP 121/71 04/30/25 17:41 Pulse Ox 98 04/30/25 17:41 O2 Del Method Room Air 04/30/25 17:41 BMI result Body Mass Index 25.5 Constitutional - Awake and Alert, No apparent distress. Warming blanket in place. HEENT - PER, EOMI Heart - RRR, no murmur. Lungs - Normal lung expansion, Normal respiratory effort, No respiratory distress, CTA bilaterally Abdomen - nondistended, pelvic tenderness to palpation without rebound or guarding. Normal bowel sounds. Extremities - no calf tenderness bilaterally, no swelling - indwelling urinary catheter in place. Musculoskeletal - generalized atrophy. Skin - Warm/Dry Neurological - Alert & oriented x1. Moving all extremities spontaneously. Normal speech. Psychological - Depressed affect Results Labs 04/30/25 13:46 04/30/25 14:09 Labs: Laboratory Results - last 24 hr 04/30/25 04/30/25 04/30/25 13:46 13:54 14:09 MCV 86.9 MCH 28.8 MCHC 33.1 RDW 14.7 Plt Count 239 MPV 9.3 L Immature Gran % (Auto) 0.2 Neut % (Auto) 56.1 Lymph % (Auto) 30.5 [place] % (Auto) 11.2 H Eos % (Auto) 1.6 Baso % (Auto) 0.4 Lymph # (Auto) 2.5 [place] # (Auto) 0.9 Eos # (Auto) 0.1 Baso # (Auto) 0.0 Abs Immat Gran (auto) 0.02 Absolute Neuts (auto) 4.7 Absolute Nucleated RBC 0.000 Nucleated RBC % (auto) 0.0 VBG pH VBG pCO2 VBG pO2 VBG HCO3 VBG O2 Saturation VBG Base Excess Anion Gap 13 Estim Creat Clear Calc 67.9 Estimated GFR > 60 POC Glucose 70 Random Glucose 76 Lactic Acid 3.0 H* Lactic Acid F/U @ 2Hr Calcium 9.1 Total Bilirubin 0.3 AST 24 ALT 10 Alkaline Phosphatase 79 Ammonia 23 Total Protein 6.9 Albumin 3.8 Urine Color Urine Appearance Urine pH Ur Specific [place] Urine Protein Urine Glucose (UA) Urine Ketones Urine Blood Urine Nitrite Ur Leukocyte Esterase Urine RBC Urine WBC Urine WBC Clumps Ur Squamous Epith Cells Urine Bacteria Hyaline Casts 04/30/25 04/30/25 04/30/25 14:15 14:25 15:06 MCV MCH MCHC RDW Plt Count MPV Immature Gran % (Auto) Neut % (Auto) Lymph % (Auto) [place] % (Auto) Eos % (Auto) Baso % (Auto) Lymph # (Auto) [place] # (Auto) Eos # (Auto) Baso # (Auto) Abs Immat Gran (auto) Absolute Neuts (auto) Absolute Nucleated RBC Nucleated RBC % (auto) VBG pH 7.38 VBG pCO2 43 VBG pO2 49 VBG HCO3 26 VBG O2 Saturation 75.0 VBG Base Excess 0.7 Anion Gap Estim Creat Clear Calc Estimated GFR POC Glucose 125 H Random Glucose Lactic Acid Lactic Acid F/U @ 2Hr Calcium Total Bilirubin AST ALT Alkaline Phosphatase Ammonia Total Protein Albumin Urine Color Yellow Urine Appearance Turbid Urine pH 6.5 Ur Specific [place] 1.010 Urine Protein 30 (1+) H Urine Glucose (UA) Negative Urine Ketones Negative Urine Blood Moderate (2+) H Urine Nitrite Negative Ur Leukocyte Esterase Large (3+) H Urine RBC 0-2 Urine WBC >50 H Urine WBC Clumps Present Ur Squamous Epith Cells 0-2 Urine Bacteria 2+ Hyaline Casts 0-2 04/30/25 04/30/25 16:05 17:20 MCV MCH MCHC RDW Plt Count MPV Immature Gran % (Auto) Neut % (Auto) Lymph % (Auto) [place] % (Auto) Eos % (Auto) Baso % (Auto) Lymph # (Auto) [place] # (Auto) Eos # (Auto) Baso # (Auto) Abs Immat Gran (auto) Absolute Neuts (auto) Absolute Nucleated RBC Nucleated RBC % (auto) VBG pH VBG pCO2 VBG pO2 VBG HCO3 VBG O2 Saturation VBG Base Excess Anion Gap Estim Creat Clear Calc Estimated GFR POC Glucose 65 Random Glucose Lactic Acid Lactic Acid F/U @ 2Hr 3.5 H* Calcium Total Bilirubin AST ALT Alkaline Phosphatase Ammonia Total Protein Albumin Urine Color Urine Appearance Urine pH Ur Specific [place] Urine Protein Urine Glucose (UA) Urine Ketones Urine Blood Urine Nitrite Ur Leukocyte Esterase Urine RBC Urine WBC Urine WBC Clumps Ur Squamous Epith Cells Urine Bacteria Hyaline Casts Imaging Radiologist's Impressions: Impressions Chest X-Ray 04/30/25 16:25 IMPRESSION: No acute disease Electronically signed by: Marcelo Turk MD 04/30/2025 04:36 PM EDT RP Assessment and Plan (1) Sepsis: Qualifiers: Sepsis acute organ dysfunction status: unspecified Sepsis type: sepsis due to unspecified organism Qualified Code(s): A41.9 - Sepsis, unspecified organism Status: Acute (2) Urinary tract infection: Qualifiers: Hematuria presence: without hematuria Urinary tract infection type: site unspecified Qualified Code(s): N39.0 - Urinary tract infection, site not specified Status: Acute Plan Gadiel Arevalo is a 74 years old man with past medical history significant for chronic indwelling urinary catheter and ESBL presents with: Sepsis secondary to catheter-associated urinary tract infection. Hx of ESBL. Continue IV fluids. Continue empiric IV antibiotic therapy with Invanz. ID consult. Urine and blood cultures obtained -will follow results. Type 2 diabetes mellitus. Hold Tresiba/insulin, oral hypoglycemic agents due to events of hypoglycemia. Blood glucose monitoring. Start IV fluid with D5. Essential hypertension. Continue amlodipine. Hyperlipidemia. Continue statin. Hx of CVA. On Plavix and aspirin. BPH. On chronic folic, finasteride and tamsulosin. Mood disorder. Continue mirtazapine, trazodone. HFpEF. Euvolemic, Code status: Full (per MOLST form). DVT prophylaxis: Lovenox Patient will need hospitalization for at least 2 midnights for treatment of urosepsis in the setting ESBL with IV antibiotics and evaluation by ID. Quality Stroke Does the patient have a stroke diagnosis?: No VTE Prior VTE?: No VTE Risk Level:: Medical - moderate - high VTE Device Contraindication: Treatment Not Indicated VTE Drug Contraindication: N/A - Med Ordered
[2025-04-30 18:11] LABS: Reflex Lactate? 2 Y
[2025-04-30 19:21] LABS: ~Lactic Acid-LAB USE ONLY 2.8 mmol/L (0.5-2.0)
[2025-04-30 20:22] LABS: Glucose, Whole Blood 63 mg/dL (60-115)
--- NOTE | 2025-04-30 20:35 | PC.NURSE ---
Addendum entered by Frances Rivera RN 04/30/25 20:37: pt woke up briefly when medicated, stated he felt terrible and went back to sleep. Original Note: pt medicated per NOV. D5NS started at 100ml/hr, D10 d/c'd. POC 63, no insulin coverage needed. bayron hugger remains on, adjusted down to med from high. normothermic, other vss.
--- NOTE | 2025-04-30 20:41 | PHA.MEDREC ---
Pharmacy Consult ? Medication Reconciliation Pharmacy has completed the medication reconciliation, used med list from [facility] and [facility].
[2025-04-30 21:22] LABS: Glucose, Whole Blood 59 mg/dL (60-115)
--- NOTE | 2025-04-30 21:36 | PC.NURSE ---
repeat POC at [phone] MD Priest notified via tiger connect- d50 given per protocol, as pt is not alert enough to safely tolerate Per MD pt to remain on q2h POC's. No changes made to IVF at this time of note pt, rectal temp 98.1- bayron hugger turned off at this time. pt awaiting med tele bed assignment, plan of care ongoing
[2025-04-30 22:02] LABS: Glucose, Whole Blood 138 mg/dL (60-115)
--- NOTE | 2025-04-30 22:22 | PC.NURSE ---
summary of care 74 y.o M brought in via EMS from [facility] rehab. Pt is well known C and has had multiple hosptitalizations for urosepsis r/t chronic indwelling burgos w/ ESBL. Pt was sent for evaluation d/t AMS per facility pt being less responsive/ interactive than usual w/ pelvic pain.On arrival pt minimally contributory to assessment questions. Neuros in tact. Pt blood glucose 70 on arrival d50 IV given. Due to pt history of urosepsis, labs, lactic, cultures, and UA were obtained. Pt does have a chronic indwelling 16FR burgos. No elevated WBC, however lactic acid returned at 3.5. Fluid bolus initiated. IV abx initiated. Pt is able to follow commands, and move with assistance. On arrival rectal temp of 95.5, rectal probe placed and bayron hugger applied. respirations even and unlabored, lungs CTA- Pt maintaining SpO2 95-99% on RA CXR negative EKG Obtained- sinus juni (+) bowel sounds in all four quadrants, no BM on this shift. No alterations in skin integrity noted. 16fr burgos catheter in place from LTC draining pale yellow urine 20G IV in place in R-FA infusing D5 NS@100ml/hour POC glucose trend: 1506: 125 1720:65 2018:63 2018: 59 D50 admin per protocol w/ 15 min f/u 135 Per MD Q2H POC pt temp currently 98.1 rectally- bayron hugger turned off at this time. Plan for admission to [facility] for treatment of urosepsis in the setting ESBL with IV antibiotics and evaluation by ID.
[2025-05-01] MEDS: 0.9 % Sodium Chloride Flush 3 ML SYRINGE IVFLUSH ×3 (01:40→23:12)
[2025-05-01 01:43] LABS: Glucose, Whole Blood 63 mg/dL (60-115)
[2025-05-01 02:24] LABS: Glucose, Whole Blood 170 mg/dL (60-115)
[2025-05-01 02:43] VITALS: BP 133/67; PULSE 55; RESP 12; TEMP 36.9; O2SAT 98
--- NOTE | 2025-05-01 02:44 | PC.NURSE ---
POC 62 PT a/ox3, responding to verbal stimuli, denies dizziness or lightheadness notified provider. administer medications as per nov. POC rechecked- improved to 170
[2025-05-01 03:56] LABS: Glucose, Whole Blood 108 mg/dL (60-115)
[2025-05-01 05:47] VITALS: BP 123/69; PULSE 66; RESP 14; TEMP 36.9; O2SAT 96
[2025-05-01 05:50] LABS: Glucose, Whole Blood 99 mg/dL (60-115)
[2025-05-01 07:52] VITALS: BP 137/75; PULSE 64; RESP 16; TEMP 37; O2SAT 97
[2025-05-01 07:55] LABS: Glucose, Whole Blood 65 mg/dL (60-115)
--- NOTE | 2025-05-01 08:16 | PC.NURSE ---
Addendum entered by Ciarra Trent RN 05/01/25 11:09: Patient is a 74 years old man with past medical history significant for chronic indwelling urinary catheter, ESBL, type 2 diabetes mellitus on Tresiba, glipizide + metformin, essential hypertension, hyperlipidemia. hemorrhagic CVA and HFpEF who was brought to the ED the from his SNF after he was found to be altered. Patient complained of pelvic tenderness. In the ED he was found to have hypothermia (lowest 95.5) and bradycardia, 48 bpm. There is no hypotension. Blood workup showed WBC count of 8.3. Hemoglobin is 11.7, at baseline and platelets are normal. Patient alert and cooperative. optometric assistant maintain and shows NSR. Lungs essentially clear bilat. Respirations even and non-labored. Abdomen soft, non-tender with positive bowel sounds. Gross patent and draining cloudy, foul smelling urine with a history of ESBL. Positive pedal pulses with no edema noted. Original Note: Medical History Pancreatic mass Acute exacerbation of CHF (congestive heart failure) Influenza A Lethargy BPH loc w urin obs/LUTS Severe recurrent major depressive disorder with psychosis CHF (congestive heart failure) Hemorrhagic stroke Cholelithiasis Alcohol use disorder HTN (hypertension)
[2025-05-01 09:02] LABS: MANUAL DIFF FLAG NO
[2025-05-01 09:16] LABS: Hematocrit 36.8 % (42.0-52.0); Hemoglobin 12.3 g/dl (14.0-18.0); Imm Gran Abs Auto 0.02 X10*3/uL (0.00-0.03); Imm Gran Pct Auto 0.2 % (0.0-0.4); Lymphocytes Absolute Auto 1.6 X10*3/uL (1.2-4.9); Mean Corpuscular HGB Conc 33.4 g/dl (31.0-36.0); Mean Corpuscular Hemoglobin 28.8 pg (27.0-33.0); Mean Corpuscular Volume 86.2 fL (80.0-98.0); NRBC Abs Auto 0.000 X10*3/uL (0.0-0.012); NRBC Pct Auto 0.0 /100WBC (0.0-0.2); Platelet Count 240 X10*3/uL (160-400); Red Blood Count 4.27 X10*6/uL (4.60-5.80); White Blood Count 8.9 X10*3/uL (4.8-10.8)
[2025-05-01 09:22] LABS: Anion Gap 9 (12-20); Blood Urea Nitrogen 16 mg/dL (9-16); Calcium 9.1 mg/dL (8.4-10.2); Carbon Dioxide 26 mmol/L (22-29); Chloride 108 mmol/L (96-108); Creatinine Clr Calc Pharmacy 67.9; Estimated Glomerular Filt Rate > 60; Magnesium 1.6 mg/dL (1.6-2.6); Potassium 4.2 mmol/L (3.3-5.1); Sodium 139 mmol/L (135-145)
[2025-05-01] MEDS: Metoprolol Tartrate 12.5 MG HALFTAB PO ×2 (09:45→21:10)
[2025-05-01 10:56] LABS: Glucose, Whole Blood 102 mg/dL (60-115)
--- NOTE | 2025-05-01 11:41 | MHC.CM.PN ---
Addendum entered by Sara Guerin 05/01/25 13:57: PVR HAS CONFIRMED PT IS A LTC [facility]RI[facility]IN BED HOLD Original Note: PT IS A LTC RESIDENT AT [facility] HCP AND MOLST ON FILE PCP: [facility] IMM DELIVERED VIA T/C TO HCP/, ANA ROSA [phone] DCP: RETURN TO [facility] LTC VIA BLS
--- NOTE | 2025-05-01 13:33 | HO.PM.IMPN ---
Subjective Subjective Date of Service: 05/01/25 Interval History: denies fever; pelvic pain resolved Review of Systems Review of Systems: Yes all other systems are reviewed and are negative Physical Exam Vital Signs: Vital Signs: Last Vital Signs Temp 98.6 F 05/01/25 07:52 Pulse 64 05/01/25 07:52 Resp 16 05/01/25 07:52 BP 137/75 05/01/25 07:52 Pulse Ox 97 05/01/25 07:52 O2 Del Method Room Air 05/01/25 07:52 BMI result Body Mass Index 25.5 Gen: in no acute distress HEENT: sclera anicteric, moist mucus membranes Neck: supple Lungs: clear to auscultation bilaterally Heart: regular rate and rhythm, no murmurs Abd: soft, non-tender, non-distended : Gross draining clear urine Ext: no edema Skin: warm/well-perfused Neuro: alert and oriented x3, no focal findings Psych: appropriate affect Objective Data Active Medications Acetaminophen (Acetaminophen 325 Mg Tablet) 975 mg PO Q6H PRN PRN Reason: Pain, Mild 1-3,fever,headache Atorvastatin Calcium (Atorvastatin Calcium 40 Mg Tablet) 40 mg PO BEDTIME [facility] Calcium Carbonate (Calcium Carbonate 750 Mg Tab.Chew) 750 mg PO Q4H PRN PRN Reason: Heartburn Clopidogrel Bisulfate (Clopidogrel Bisulfate 75 Mg Tablet) 75 mg PO DAILY [facility] Last Admin: 05/01/25 09:45 Dose: 75 mg Documented By: DAVIS Dextrose (Dextrose 50 % 25 Gm/50 Ml Syringe) 25 gm IVPUSH Q15M PRN; Protocol PRN Reason: per Hypoglycemia Standing Ord. Last Admin: 05/01/25 02:01 Dose: 25 gm Documented By: THU Ertapenem (Ertapenem Sodium 1 Gm Vial) 1 gm IVPUSH Q24H [facility] Finasteride (Finasteride 5 Mg Tablet) 5 mg PO DAILY [facility] Last Admin: 05/01/25 09:45 Dose: 5 mg Documented By: DAVIS Glucose (Glucose Gel 15 Gm Gel..Gram.) 15 gm PO Q15M PRN; Protocol PRN Reason: per Hypoglycemia Standing Ord. Heparin Sodium (Porcine) (Heparin Sodium,Porcine 5,000 Unit/Ml Vial) 5,000 unit SUBCUT Q12H [facility] Last Admin: 05/01/25 09:44 Dose: 5,000 unit Documented By: DAVIS Insulin Human Lispro (Insulin Lispro 100 Unit/Ml 3 Ml Vial) 0 unit SUBCUT QIDACHS [facility]; Protocol Last Admin: 05/01/25 11:05 Dose: Not Given Documented By: DAVIS Non-Admin Reason: No Insulin Coverage Magnesium Hydroxide (Milk Of Magnesia 30 Ml Oral.Susp) 30 ml PO DAILY PRN PRN Reason: Constipation Melatonin (Melatonin 3 Mg Tablet) 6 mg PO BEDTIME PRN PRN Reason: Insomnia Metoprolol Tartrate (Metoprolol Tartrate 12.5 Mg Halftab) 12.5 mg PO BID [facility]; Protocol Last Admin: 05/01/25 09:45 Dose: 12.5 mg Documented By: DAVIS Mirtazapine (Mirtazapine 15 Mg Tablet) 15 mg PO BEDTIME [facility] Risperidone (Risperidone 1 Mg Tablet) 1 mg PO BID [facility] Last Admin: 05/01/25 09:45 Dose: 1 mg Documented By: DAVIS Sodium Chloride (0.9 % Sodium Chloride Flush 3 Ml Syringe) 3 ml [facility]USH [facility] Last Admin: 05/01/25 09:44 Dose: 3 ml Documented By: DAVIS Tamsulosin HCl (Tamsulosin Hcl 0.4 Mg Capsule) 0.4 mg PO DAILY [facility] Last Admin: 05/01/25 09:45 Dose: 0.4 mg Documented By: DAVIS Trazodone HCl (Trazodone Hcl 100 Mg Tablet) 100 mg PO BEDTIME [facility] Labs 05/01/25 08:54 05/01/25 08:54 Labs: Laboratory Results - last 24 hr 04/30/25 04/30/25 04/30/25 13:46 13:54 14:09 MCV 86.9 MCH 28.8 MCHC 33.1 RDW 14.7 Plt Count 239 MPV 9.3 L Immature Gran % (Auto) 0.2 Neut % (Auto) 56.1 Lymph % (Auto) 30.5 [place] % (Auto) 11.2 H Eos % (Auto) 1.6 Baso % (Auto) 0.4 Lymph # (Auto) 2.5 [place] # (Auto) 0.9 Eos # (Auto) 0.1 Baso # (Auto) 0.0 Abs Immat Gran (auto) 0.02 Absolute Neuts (auto) 4.7 Absolute Nucleated RBC 0.000 Nucleated RBC % (auto) 0.0 VBG pH VBG pCO2 VBG pO2 VBG HCO3 VBG O2 Saturation VBG Base Excess Anion Gap 13 Estim Creat Clear Calc 67.9 Estimated GFR > 60 POC Glucose 70 Random Glucose 76 Lactic Acid 3.0 H* Lactic Acid F/U @ 2Hr Lactic Acid F/U @ 4Hr Calcium 9.1 Magnesium Total Bilirubin 0.3 AST 24 ALT 10 Alkaline Phosphatase 79 Ammonia 23 Total Protein 6.9 Albumin 3.8 Urine Color Urine Appearance Urine pH Ur Specific [place] Urine Protein Urine Glucose (UA) Urine Ketones Urine Blood Urine Nitrite Ur Leukocyte Esterase Urine RBC Urine WBC Urine WBC Clumps Ur Squamous Epith Cells Urine Bacteria Hyaline Casts 04/30/25 04/30/25 04/30/25 14:15 14:25 15:06 MCV MCH MCHC RDW Plt Count MPV Immature Gran % (Auto) Neut % (Auto) Lymph % (Auto) [place] % (Auto) Eos % (Auto) Baso % (Auto) Lymph # (Auto) [place] # (Auto) Eos # (Auto) Baso # (Auto) Abs Immat Gran (auto) Absolute Neuts (auto) Absolute Nucleated RBC Nucleated RBC % (auto) VBG pH 7.38 VBG pCO2 43 VBG pO2 49 VBG HCO3 26 VBG O2 Saturation 75.0 VBG Base Excess 0.7 Anion Gap Estim Creat Clear Calc Estimated GFR POC Glucose 125 H Random Glucose Lactic Acid Lactic Acid F/U @ 2Hr Lactic Acid F/U @ 4Hr Calcium Magnesium Total Bilirubin AST ALT Alkaline Phosphatase Ammonia Total Protein Albumin Urine Color Yellow Urine Appearance Turbid Urine pH 6.5 Ur Specific [place] 1.010 Urine Protein 30 (1+) H Urine Glucose (UA) Negative Urine Ketones Negative Urine Blood Moderate (2+) H Urine Nitrite Negative Ur Leukocyte Esterase Large (3+) H Urine RBC 0-2 Urine WBC >50 H Urine WBC Clumps Present Ur Squamous Epith Cells 0-2 Urine Bacteria 2+ Hyaline Casts 0-2 04/30/25 04/30/25 04/30/25 16:05 17:20 18:48 MCV MCH MCHC RDW Plt Count MPV Immature Gran % (Auto) Neut % (Auto) Lymph % (Auto) [place] % (Auto) Eos % (Auto) Baso % (Auto) Lymph # (Auto) [place] # (Auto) Eos # (Auto) Baso # (Auto) Abs Immat Gran (auto) Absolute Neuts (auto) Absolute Nucleated RBC Nucleated RBC % (auto) VBG pH VBG pCO2 VBG pO2 VBG HCO3 VBG O2 Saturation VBG Base Excess Anion Gap Estim Creat Clear Calc Estimated GFR POC Glucose 65 Random Glucose Lactic Acid Lactic Acid F/U @ 2Hr 3.5 H* Lactic Acid F/U @ 4Hr 2.8 H* Calcium Magnesium Total Bilirubin AST ALT Alkaline Phosphatase Ammonia Total Protein Albumin Urine Color Urine Appearance Urine pH Ur Specific [place] Urine Protein Urine Glucose (UA) Urine Ketones Urine Blood Urine Nitrite Ur Leukocyte Esterase Urine RBC Urine WBC Urine WBC Clumps Ur Squamous Epith Cells Urine Bacteria Hyaline Casts 04/30/25 04/30/25 04/30/25 20:18 21:18 21:58 MCV MCH MCHC RDW Plt Count MPV Immature Gran % (Auto) Neut % (Auto) Lymph % (Auto) [place] % (Auto) Eos % (Auto) Baso % (Auto) Lymph # (Auto) [place] # (Auto) Eos # (Auto) Baso # (Auto) Abs Immat Gran (auto) Absolute Neuts (auto) Absolute Nucleated RBC Nucleated RBC % (auto) VBG pH VBG pCO2 VBG pO2 VBG HCO3 VBG O2 Saturation VBG Base Excess Anion Gap Estim Creat Clear Calc Estimated GFR POC Glucose 63 59 L* 138 H Random Glucose Lactic Acid Lactic Acid F/U @ 2Hr Lactic Acid F/U @ 4Hr Calcium Magnesium Total Bilirubin AST ALT Alkaline Phosphatase Ammonia Total Protein Albumin Urine Color Urine Appearance Urine pH Ur Specific [place] Urine Protein Urine Glucose (UA) Urine Ketones Urine Blood Urine Nitrite Ur Leukocyte Esterase Urine RBC Urine WBC Urine WBC Clumps Ur Squamous Epith Cells Urine Bacteria Hyaline Casts 05/01/25 05/01/25 05/01/25 01:38 02:21 03:51 MCV MCH MCHC RDW Plt Count MPV Immature Gran % (Auto) Neut % (Auto) Lymph % (Auto) [place] % (Auto) Eos % (Auto) Baso % (Auto) Lymph # (Auto) [place] # (Auto) Eos # (Auto) Baso # (Auto) Abs Immat Gran (auto) Absolute Neuts (auto) Absolute Nucleated RBC Nucleated RBC % (auto) VBG pH VBG pCO2 VBG pO2 VBG HCO3 VBG O2 Saturation VBG Base Excess Anion Gap Estim Creat Clear Calc Estimated GFR POC Glucose 63 170 H 108 Random Glucose Lactic Acid Lactic Acid F/U @ 2Hr Lactic Acid F/U @ 4Hr Calcium Magnesium Total Bilirubin AST ALT Alkaline Phosphatase Ammonia Total Protein Albumin Urine Color Urine Appearance Urine pH Ur Specific [place] Urine Protein Urine Glucose (UA) Urine Ketones Urine Blood Urine Nitrite Ur Leukocyte Esterase Urine RBC Urine WBC Urine WBC Clumps Ur Squamous Epith Cells Urine Bacteria Hyaline Casts 05/01/25 05/01/25 05/01/25 05:45 07:50 08:54 MCV 86.2 MCH 28.8 MCHC 33.4 RDW 15.2 Plt Count 240 MPV 9.1 L Immature Gran % (Auto) 0.2 Neut % (Auto) 68.5 Lymph % (Auto) 17.6 L [place] % (Auto) 12.1 H Eos % (Auto) 1.2 Baso % (Auto) 0.4 Lymph # (Auto) 1.6 [place] # (Auto) 1.1 Eos # (Auto) 0.1 Baso # (Auto) 0.0 Abs Immat Gran (auto) 0.02 Absolute Neuts (auto) 6.1 Absolute Nucleated RBC 0.000 Nucleated RBC % (auto) 0.0 VBG pH VBG pCO2 VBG pO2 VBG HCO3 VBG O2 Saturation VBG Base Excess Anion Gap 9 L Estim Creat Clear Calc 67.9 Estimated GFR > 60 POC Glucose 99 65 Random Glucose 118 H Lactic Acid Lactic Acid F/U @ 2Hr Lactic Acid F/U @ 4Hr Calcium 9.1 Magnesium 1.6 Total Bilirubin AST ALT Alkaline Phosphatase Ammonia Total Protein Albumin Urine Color Urine Appearance Urine pH Ur Specific [place] Urine Protein Urine Glucose (UA) Urine Ketones Urine Blood Urine Nitrite Ur Leukocyte Esterase Urine RBC Urine WBC Urine WBC Clumps Ur Squamous Epith Cells Urine Bacteria Hyaline Casts 05/01/25 10:51 MCV MCH MCHC RDW Plt Count MPV Immature Gran % (Auto) Neut % (Auto) Lymph % (Auto) [place] % (Auto) Eos % (Auto) Baso % (Auto) Lymph # (Auto) [place] # (Auto) Eos # (Auto) Baso # (Auto) Abs Immat Gran (auto) Absolute Neuts (auto) Absolute Nucleated RBC Nucleated RBC % (auto) VBG pH VBG pCO2 VBG pO2 VBG HCO3 VBG O2 Saturation VBG Base Excess Anion Gap Estim Creat Clear Calc Estimated GFR POC Glucose 102 Random Glucose Lactic Acid Lactic Acid F/U @ 2Hr Lactic Acid F/U @ 4Hr Calcium Magnesium Total Bilirubin AST ALT Alkaline Phosphatase Ammonia Total Protein Albumin Urine Color Urine Appearance Urine pH Ur Specific [place] Urine Protein Urine Glucose (UA) Urine Ketones Urine Blood Urine Nitrite Ur Leukocyte Esterase Urine RBC Urine WBC Urine WBC Clumps Ur Squamous Epith Cells Urine Bacteria Hyaline Casts Microbiology Microbiology Results: Microbiology 04/30/25 18:05 Urine Culture - Preliminary Urine Catheterized - Gross Catheter Culture in progress. Assessment and Plan (1) Urinary tract infection: Status: Acute Plan d2, 74yo M with chronic urinary catheter with hx ESBL UTI, DM2 on Tresiba/GPZ/MTF, HTN, HLD, hx hemorrhagic CVA, and HFpEF, LTC resident at [facility], brought in with AMS, found to be septic due to UTI sepsis due to complicated UTI - 04/30- ertapenem, ID consult pending, follow BCx/UCx DM2 with hypoglycemia - hold insulin + oral hypoglycemis; off IV D5 HTN - amlodipine, metoprolol tartrate HLD - statin hx CVA - clopidogrel BPH - finasteride + tamsulosin HFpEF - appears euvolemic; continue antihypertensives mood disorder - trazodone, mirtazapine, risperidone VTE ppx - UFH dispo - LTC In my clinical judgment, the patient requires continued inpatient hospitalization for the following reasons: IV ABX Total time managing care of this patient today: 45 minutes. Quality Stroke Does the patient have a stroke diagnosis?: No VTE Prior VTE?: No VTE Risk Level:: Medical - moderate - high VTE Device Contraindication: Treatment Not Indicated VTE Drug Contraindication: N/A - Med Ordered
[2025-05-01 13:53] VITALS: BMI 25.8
[2025-05-01 13:54] VITALS: BP 161/83; PULSE 63; RESP 20; TEMP 37.3; O2SAT 98
[2025-05-01 15:45] VITALS: BP 138/73; PULSE 58; RESP 16; TEMP 36.9; O2SAT 97
[2025-05-01 16:20] LABS: Glucose, Whole Blood 136 mg/dL (60-115)
[2025-05-01 20:00] VITALS: BP 159/75; PULSE 54; RESP 16; TEMP 36.9; O2SAT 96
[2025-05-01 21:06] LABS: Glucose, Whole Blood 175 mg/dL (60-115)
[2025-05-02] VITALS (7 sets, daily range): BP systolic 114–151; BP diastolic 61–80; PULSE 48–66; RESP 16–20; TEMP 36.3–37.6; O2SAT 96–98
[2025-05-02 06:59] LABS: Glucose, Whole Blood 128 mg/dL (60-115)
[2025-05-02 07:44] LABS: Hematocrit 35.9 % (42.0-52.0); Hemoglobin 12.3 g/dl (14.0-18.0); Mean Corpuscular HGB Conc 34.3 g/dl (31.0-36.0); Mean Corpuscular Hemoglobin 28.6 pg (27.0-33.0); Mean Corpuscular Volume 83.5 fL (80.0-98.0); NRBC Abs Auto 0.000 X10*3/uL (0.0-0.012); NRBC Pct Auto 0.0 /100WBC (0.0-0.2); Platelet Count 212 X10*3/uL (160-400); Red Blood Count 4.30 X10*6/uL (4.60-5.80); White Blood Count 8.1 X10*3/uL (4.8-10.8)
[2025-05-02 07:51] LABS: Anion Gap 11 (12-20); Blood Urea Nitrogen 18 mg/dL (9-16); Calcium 9.0 mg/dL (8.4-10.2); Carbon Dioxide 26 mmol/L (22-29); Chloride 108 mmol/L (96-108); Creatinine Clr Calc Pharmacy 76.6; Estimated Glomerular Filt Rate > 60; Potassium 4.0 mmol/L (3.3-5.1); Sodium 141 mmol/L (135-145)
[2025-05-02] MEDS: 0.9 % Sodium Chloride Flush 3 ML SYRINGE IVFLUSH ×2 (08:17→20:17)
[2025-05-02] MEDS: Metoprolol Tartrate 12.5 MG HALFTAB PO (08:17)
--- NOTE | 2025-05-02 09:34 | P.PNIM_ITS ---
Subjective Subjective Date of Service: 05/02/25 Interval History: c/o some urinary catheter discomfort which then resolved; no fever/chills; hypoglycemia resolved Review of Systems Review of Systems: Yes all other systems are reviewed and are negative Physical Exam 2 Vital Signs: Vital Signs: Last Vital Signs Temp 97.8 F 05/02/25 07:26 Pulse 64 05/02/25 07:26 Resp 18 05/02/25 07:26 BP 122/80 05/02/25 07:26 Pulse Ox 98 05/02/25 07:26 O2 Del Method Room Air 05/02/25 07:26 BMI result Body Mass Index 25.8 Gen: in no acute distress HEENT: sclera anicteric, moist mucus membranes Neck: supple Lungs: clear to auscultation bilaterally Heart: regular rate and rhythm, no murmurs Abd: soft, non-tender, non-distended : Gross draining clear urine Ext: no edema Skin: warm/well-perfused Neuro: alert and oriented x3, no focal findings Psych: restricted affect Objective Data Active Medications Acetaminophen (Acetaminophen 325 Mg Tablet) 975 mg PO Q6H PRN PRN Reason: Pain, Mild 1-3,fever,headache Atorvastatin Calcium (Atorvastatin Calcium 40 Mg Tablet) 40 mg PO BEDTIME [facility] Last Admin: 05/01/25 21:10 Dose: 40 mg Documented By: MEDARDO-LOR Calcium Carbonate (Calcium Carbonate 750 Mg Tab.Chew) 750 mg PO Q4H PRN PRN Reason: Heartburn Clopidogrel Bisulfate (Clopidogrel Bisulfate 75 Mg Tablet) 75 mg PO DAILY [facility] Last Admin: 05/02/25 08:17 Dose: 75 mg Documented By: ABELARDO Dextrose (Dextrose 50 % 25 Gm/50 Ml Syringe) 25 gm IVPUSH Q15M PRN; Protocol PRN Reason: per Hypoglycemia Standing Ord. Last Admin: 05/01/25 02:01 Dose: 25 gm Documented By: THU Ertapenem (Ertapenem Sodium 1 Gm Vial) 1 gm IVPUSH Q24H [facility] Last Admin: 05/01/25 14:59 Dose: 1 gm Documented By: JONAS Finasteride (Finasteride 5 Mg Tablet) 5 mg PO DAILY [facility] Last Admin: 05/02/25 08:18 Dose: 5 mg Documented By: ABELARDO Glucose (Glucose Gel 15 Gm Gel..Gram.) 15 gm PO Q15M PRN; Protocol PRN Reason: per Hypoglycemia Standing Ord. Heparin Sodium (Porcine) (Heparin Sodium,Porcine 5,000 Unit/Ml Vial) 5,000 unit SUBCUT Q12H [facility] Last Admin: 05/02/25 08:18 Dose: 5,000 unit Documented By: ABELARDO Insulin Human Lispro (Insulin Lispro 100 Unit/Ml 3 Ml Vial) 0 unit SUBCUT QIDACHS [facility]; Protocol Last Admin: 05/02/25 08:05 Dose: Not Given Documented By: ABELARDO Non-Admin Reason: No Insulin Coverage Magnesium Hydroxide (Milk Of Magnesia 30 Ml Oral.Susp) 30 ml PO DAILY PRN PRN Reason: Constipation Melatonin (Melatonin 3 Mg Tablet) 6 mg PO BEDTIME PRN PRN Reason: Insomnia Metoprolol Tartrate (Metoprolol Tartrate 12.5 Mg Halftab) 12.5 mg PO BID [facility]; Protocol Last Admin: 05/02/25 08:17 Dose: 12.5 mg Documented By: ABELARDO Mirtazapine (Mirtazapine 15 Mg Tablet) 15 mg PO BEDTIME [facility] Last Admin: 05/01/25 21:10 Dose: 15 mg Documented By: WESTON Risperidone (Risperidone 1 Mg Tablet) 1 mg PO BID [facility] Last Admin: 05/02/25 08:17 Dose: 1 mg Documented By: ABELARDO Sodium Chloride (0.9 % Sodium Chloride Flush 3 Ml Syringe) [address] [facility] Last Admin: 05/02/25 08:17 Dose: 3 ml Documented By: ABELARDO Tamsulosin HCl (Tamsulosin Hcl 0.4 Mg Capsule) 0.4 mg PO DAILY [facility] Last Admin: 05/02/25 08:18 Dose: 0.4 mg Documented By: ABELARDO Tramadol HCl (Tramadol Hcl 50 Mg Tablet) 25 mg PO Q6H PRN PRN Reason: Breakthrough Pain Last Admin: 05/01/25 21:24 Dose: 25 mg Documented By: WESTON Trazodone HCl (Trazodone Hcl 100 Mg Tablet) 100 mg PO BEDTIME [facility] Last Admin: 05/01/25 21:10 Dose: 100 mg Documented By: WESTON Labs 05/02/25 07:03 05/02/25 07:03 Labs: Laboratory Results - last 24 hr 05/01/25 05/01/25 05/01/25 10:51 16:04 20:44 MCV MCH MCHC RDW Plt Count MPV Absolute Nucleated RBC Nucleated RBC % (auto) Anion Gap Estim Creat Clear Calc Estimated GFR POC Glucose 102 136 H 175 H Random Glucose Calcium 05/02/25 05/02/25 06:55 07:03 MCV 83.5 MCH 28.6 MCHC 34.3 RDW 14.8 Plt Count 212 MPV 8.9 L Absolute Nucleated RBC 0.000 Nucleated RBC % (auto) 0.0 Anion Gap 11 L Estim Creat Clear Calc 76.6 Estimated GFR > 60 POC Glucose 128 H Random Glucose 130 H Calcium 9.0 Microbiology Microbiology Results: Microbiology 04/30/25 18:05 Urine Culture - Final Urine Catheterized - Gross Catheter 04/30/25 13:46 Blood Culture - Preliminary Blood - Venous No growth after 24 hours. 04/30/25 13:46 Blood Culture - Preliminary Blood - Venous No growth after 24 hours. Assessment and Plan (1) Urinary tract infection: Status: Acute Plan d3, 74yo M with chronic urinary catheter with hx ESBL UTI, DM2 on Tresiba/GPZ/MTF, HTN, HLD, hx hemorrhagic CVA, and HFpEF, [facility], brought in with AMS, found to be septic due to UTI sepsis due to complicated UTI - 04/30- ertapenem, ID consult pending, BCx pending, UCx contaminated DM2 with hypoglycemia - hold basal insulin + oral hypoglycemis; off IV D5; check A1c HTN - amlodipine, metoprolol tartrate HLD - statin hx CVA - clopidogrel BPH - finasteride + tamsulosin HFpEF - appears euvolemic; continue antihypertensives mood disorder - trazodone, mirtazapine, risperidone VTE ppx - UFH dispo - LTC In my clinical judgment, the patient requires continued inpatient hospitalization for the following reasons: IV ABX Total time managing care of this patient today: 35 minutes. Quality Stroke Does the patient have a stroke diagnosis?: No VTE Prior VTE?: No VTE Risk Level:: Medical - moderate - high VTE Device Contraindication: Treatment Not Indicated VTE Drug Contraindication: N/A - Med Ordered
--- NOTE | 2025-05-02 09:55 | PC.NURSE ---
Removed patient Gross from facility, replace with a new one 16FR, patient tolerated well. 800ml clear yellow urine drain upon insertion. aware
[2025-05-02 10:29] LABS: Hemoglobin A1C 145.1436 umol/L; Total Hemoglobin (HGBA1C) 3244.3038 umol/L
[2025-05-02 10:55] LABS: Glucose, Whole Blood 223 mg/dL (60-115)
--- NOTE | 2025-05-02 13:31 | MHC.CM.PN ---
EMR reviewed and per MD rounds, pt is not medically cleared for discharge due to management of UTI, on IV ABX, ID consult pending.
--- NOTE | 2025-05-02 13:39 | P.CNID_ITS ---
History of Present Illness Data of Consult Service Date: 05/02/25 Requesting physician: Mario Flanagan Primary Care Provider: Geno Rousseau MD HPI Reason for consult: sepsis He presents with lethargy from SNF. There was concern over UTI He has enterococcus faecalis and ESBL E coli 01/2025. There was no fever Review of Systems 2 Review of Systems: Yes Unobtainable due to mental status PMFSH Past Medical History Medical History (Updated 05/02/25 @ 13:47 by Sara Ambrosio MD) Lethargy Pancreatic mass Acute exacerbation of CHF (congestive heart failure) Influenza A Lethargy BPH loc w urin obs/LUTS Severe recurrent major depressive disorder with psychosis CHF (congestive heart failure) Hemorrhagic stroke Cholelithiasis Alcohol use disorder HTN (hypertension) Family History Family history: reviewed and not pertinent Surgical History Surgical History No pertinent past surgical history Social History Social History Household Members: Other Household Members Other:: [facility]. Housing: Assisted Living Facility Housing Other:: [facility]. Do you presently have visiting nurse or other home services: Yes Alcohol intake: current Alcohol intake frequency: 0-2 drinks per day Alcohol type: hard liquor Comment: sitter at bedside Patient Tobacco Use Status: Former Tobacco user e-Cigarette/Vaping Use: Never Used Second Hand Smoke Exposure: No Advance Directives Date on File: 04/12/23 service: No Current occupational status: disabled Meds Allergies Allergy/AdvReac Type Severity Reaction Status Date / Time meperidine (From DEMEROL) Allergy Unknown UNKNOWN Verified 04/30/25 14:01 Active Medications: Current Medications Acetaminophen (Acetaminophen 325 Mg Tablet) 975 mg PO Q6H PRN PRN Reason: Pain, Mild 1-3,fever,headache Atorvastatin Calcium (Atorvastatin Calcium 40 Mg Tablet) 40 mg PO BEDTIME [facility] Last Admin: 05/01/25 21:10 Dose: 40 mg Calcium Carbonate (Calcium Carbonate 750 Mg Tab.Chew) 750 mg PO Q4H PRN PRN Reason: Heartburn Clopidogrel Bisulfate (Clopidogrel Bisulfate 75 Mg Tablet) 75 mg PO DAILY [facility] Last Admin: 05/02/25 08:17 Dose: 75 mg Dextrose (Dextrose 50 % 25 Gm/50 Ml Syringe) 25 gm IVPUSH Q15M PRN; Protocol PRN Reason: per Hypoglycemia Standing Ord. Last Admin: 05/01/25 02:01 Dose: 25 gm Ertapenem (Ertapenem Sodium 1 Gm Vial) 1 gm IVPUSH Q24H [facility] Last Admin: 05/01/25 14:59 Dose: 1 gm Finasteride (Finasteride 5 Mg Tablet) 5 mg PO DAILY [facility] Last Admin: 05/02/25 08:18 Dose: 5 mg Glucose (Glucose Gel 15 Gm Gel..Gram.) 15 gm PO Q15M PRN; Protocol PRN Reason: per Hypoglycemia Standing Ord. Heparin Sodium (Porcine) (Heparin Sodium,Porcine 5,000 Unit/Ml Vial) 5,000 unit SUBCUT Q12H [facility] Last Admin: 05/02/25 08:18 Dose: 5,000 unit Insulin Human Lispro (Insulin Lispro 100 Unit/Ml 3 Ml Vial) 0 unit SUBCUT QIDACHS [facility]; Protocol Last Admin: 05/02/25 12:00 Dose: 4 unit Magnesium Hydroxide (Milk Of Magnesia 30 Ml Oral.Susp) 30 ml PO DAILY PRN PRN Reason: Constipation Melatonin (Melatonin 3 Mg Tablet) 6 mg PO BEDTIME PRN PRN Reason: Insomnia Metoprolol Tartrate (Metoprolol Tartrate 12.5 Mg Halftab) 12.5 mg PO BID [facility]; Protocol Last Admin: 05/02/25 08:17 Dose: 12.5 mg Mirtazapine (Mirtazapine 15 Mg Tablet) 15 mg PO BEDTIME [facility] Last Admin: 05/01/25 21:10 Dose: 15 mg Risperidone (Risperidone 1 Mg Tablet) 1 mg PO BID [facility] Last Admin: 05/02/25 08:17 Dose: 1 mg Sodium Chloride (0.9 % Sodium Chloride Flush 3 Ml Syringe) 3 ml IVFLUSH QSHIFT [facility] Last Admin: 05/02/25 08:17 Dose: 3 ml Tamsulosin HCl (Tamsulosin Hcl 0.4 Mg Capsule) 0.4 mg PO DAILY [facility] Last Admin: 05/02/25 08:18 Dose: 0.4 mg Tramadol HCl (Tramadol Hcl 50 Mg Tablet) 25 mg PO Q6H PRN PRN Reason: Breakthrough Pain Last Admin: 05/01/25 21:24 Dose: 25 mg Trazodone HCl (Trazodone Hcl 100 Mg Tablet) 100 mg PO BEDTIME [facility] Last Admin: 05/01/25 21:10 Dose: 100 mg Home Medications ?Medication ?Instructions ?Recorded ?Confirmed ?Last Taken ?Type amlodipine 5 mg tablet 5 mg PO DAILY 08/14/2404/3008/13/24 History Held on 01/21/25. Instructions: Monitor BP for 1 week before restarting atorvastatin 40 mg tablet 40 mg PO BEDTIME 08/14/2408/13/24 History clopidogrel 75 mg tablet 75 mg PO DAILY 08/14/2404/0508/13/24 History insulin degludec 100 unit/mL (3 18 unit subcut DAILY 1 10/15/23 04/30/25 08/13/24 History mL) subcutaneous pen (Tresiba FlexTouch U-100 insulin) metformin 1,000 mg tablet 1,000 mg PO BID 08/14/2408/13/24 History mirtazapine 15 mg tablet 15 mg PO BEDTIME 08/14/2408/13/24 History trazodone 100 mg tablet 100 mg PO BEDTIME 08/14/24 0 04/30/25 08/13/24 History insulin lispro 100 unit/mL 1 sliding scale dose subcut TIDAC 09/24/24 04/30/25 Unknown History subcutaneous solution (Humalog U-100 Insulin) acetaminophen 325 mg tablet 650 mg PO Q6H PRN Fever Or Pain 04/30/25 04/30/25 Unknown History metoprolol tartrate 25 mg tablet 12.5 mg PO BID 04/30/25 Unknown History risperidone 1 mg tablet 1 mg PO BID 04/30/25 5 Unknown History tamsulosin 0.4 mg capsule 0.4 mg PO DAILY 04/30/25 Unknown History tramadol 25 mg tablet 25 mg PO Q12H PRN pain 04/3004/30/25 Unknown History Physical Exam 2 Vital Signs: Vital Signs: Last Vital Signs Temp 97.4 F 05/02/25 11:08 Pulse 48 L 05/02/25 11:08 Resp 16 05/02/25 11:08 BP 151/74 H 05/02/25 11:08 Pulse Ox 97 05/02/25 11:08 O2 Del Method Room Air 05/02/25 11:08 BMI result Body Mass Index 25.8 Const: General: cooperative HEENT: Head: Yes normal to inspection Face and sinus: Yes normal facial exam Mouth: Normal oral and palatal mucosa present Teeth and gingiva: d entition normal Eyes: General: appearance normal, both eyes and all related structures P upils: Equal, round and reactive pupils present Resp: Effort & Inspection: normal respiratory effort Cardio: Rate: regular rate Rhythm: regular rhythm GI: Palpation (GI): Soft to palpation and nontender : General: Yes no CVA tenderness Back/Spine/Pelvis: Back: no CVA tenderness Skin: General skin exam: no rashes or lesions noted Neuro: General: moves all extremities Cranial nerves: Yes Equal, round and reactive pupils present Extrem: General: Yes normal to inspection Psych: Appearance: grossly normal Results Labs 05/02/25 07:03 05/02/25 07:03 Labs: Short CBC 05/02/25 Range/Units 07:03 WBC 8.1 (4.8-10.8) X10*3/uL Hgb 12.3 L (14.0-18.0) g/dl Hct 35.9 L (42.0-52.0) % Plt Count 212 (160-400) X10*3/uL BMP 05/02/25 07:03 Sodium 141 Potassium 4.0 Chloride 108 Carbon Dioxide 26 BUN 18 H Creatinine 0.86 Calcium 9.0 Microbiology Microbiology Results: Microbiology 04/30/25 18:05 Urine Catheterized - Gross Catheter Urine Culture - Final 04/30/25 13:46 Blood - Venous Blood Culture - Preliminary No growth after 24 hours. 04/30/25 13:46 Blood - Venous Blood Culture - Preliminary No growth after 24 hours. Assessment and Plan (1) Lethargy: Status: Acute Plan He has had enterococcus in urine and ESBL in past Would give fosfomycin 3g x2 doses and consider cephalosporin for 14 days even though culture unremarkable at this point.
[2025-05-02 16:29] LABS: Glucose, Whole Blood 164 mg/dL (60-115)
[2025-05-02 19:37] LABS: Glucose, Whole Blood 195 mg/dL (60-115)
[2025-05-03 03:17] VITALS: BP 144/72; PULSE 61; RESP 18; TEMP 36.6; O2SAT 98
[2025-05-03 07:25] LABS: Glucose, Whole Blood 134 mg/dL (60-115)
[2025-05-03 08:00] VITALS: BP 107/65; PULSE 66; RESP 20; TEMP 36.1; O2SAT 98
[2025-05-03] MEDS: Metoprolol Tartrate 12.5 MG HALFTAB PO (08:19)
[2025-05-03] MEDS: 0.9 % Sodium Chloride Flush 3 ML SYRINGE IVFLUSH ×3 (08:19→20:07)
--- NOTE | 2025-05-03 09:57 | HO.PM.IMPN ---
Subjective Subjective Date of Service: 05/03/25 Interval History: No new complaint repoeted, HR has been in 40s, no pause Review of Systems Review of Systems: Yes all other systems are reviewed and are negative Physical Exam Vital Signs: Vital Signs: Last Vital Signs Temp 97.0 F 05/03/25 08:00 Pulse 66 05/03/25 08:00 Resp 20 05/03/25 08:00 BP 107/65 05/03/25 08:00 Pulse Ox 98 05/03/25 08:00 O2 Del Method Room Air 05/03/25 08:00 BMI result Body Mass Index 25.8 Objective Data Active Medications Acetaminophen (Acetaminophen 325 Mg Tablet) 975 mg PO Q6H PRN PRN Reason: Pain, Mild 1-3,fever,headache Atorvastatin Calcium (Atorvastatin Calcium 40 Mg Tablet) 40 mg PO BEDTIME [facility] Last Admin: 05/02/25 20:10 Dose: 40 mg Documented By: SHELBY Calcium Carbonate (Calcium Carbonate 750 Mg Tab.Chew) 750 mg PO Q4H PRN PRN Reason: Heartburn Clopidogrel Bisulfate (Clopidogrel Bisulfate 75 Mg Tablet) 75 mg PO DAILY [facility] Last Admin: 05/03/25 08:19 Dose: 75 mg Documented By: JONAS Dextrose (Dextrose 50 % 25 Gm/50 Ml Syringe) 25 gm IVPUSH Q15M PRN; Protocol PRN Reason: per Hypoglycemia Standing Ord. Last Admin: 05/01/25 02:01 Dose: 25 gm Documented By: THU Ertapenem (Ertapenem Sodium 1 Gm Vial) 1 gm IVPUSH Q24H [facility] Last Admin: 05/02/25 16:17 Dose: 1 gm Documented By: HELIO Finasteride (Finasteride 5 Mg Tablet) 5 mg PO DAILY [facility] Last Admin: 05/03/25 08:19 Dose: 5 mg Documented By: JONAS Glucose (Glucose Gel 15 Gm Gel..Gram.) 15 gm PO Q15M PRN; Protocol PRN Reason: per Hypoglycemia Standing Ord. Heparin Sodium (Porcine) (Heparin Sodium,Porcine 5,000 Unit/Ml Vial) 5,000 unit SUBCUT Q12H [facility] Last Admin: 05/03/25 08:19 Dose: 5,000 unit Documented By: JONAS Insulin Human Lispro (Insulin Lispro 100 Unit/Ml 3 Ml Vial) 0 unit SUBCUT QIDACHS [facility]; Protocol Last Admin: 05/03/25 07:28 Dose: Not Given Documented By: JONAS Non-Admin Reason: No Insulin Coverage Magnesium Hydroxide (Milk Of Magnesia 30 Ml Oral.Susp) 30 ml PO DAILY PRN PRN Reason: Constipation Melatonin (Melatonin 3 Mg Tablet) 6 mg PO BEDTIME PRN PRN Reason: Insomnia Metoprolol Tartrate (Metoprolol Tartrate 12.5 Mg Halftab) 12.5 mg PO BID [facility]; Protocol Last Admin: 05/03/25 08:19 Dose: 12.5 mg Documented By: JONAS Mirtazapine (Mirtazapine 15 Mg Tablet) 15 mg PO BEDTIME [facility] Last Admin: 05/02/25 20:10 Dose: 15 mg Documented By: SHELBY Risperidone (Risperidone 1 Mg Tablet) 1 mg PO BID [facility] Last Admin: 05/03/25 08:19 Dose: 1 mg Documented By: JONAS Sodium Chloride (0.9 % Sodium Chloride Flush 3 Ml Syringe) 3 ml IVFLUSH QSHIFT [facility] Last Admin: 05/03/25 08:19 Dose: 3 ml Documented By: JONAS Tamsulosin HCl (Tamsulosin Hcl 0.4 Mg Capsule) 0.4 mg PO DAILY [facility] Last Admin: 05/03/25 08:19 Dose: 0.4 mg Documented By: JONAS Tramadol HCl (Tramadol Hcl 50 Mg Tablet) 25 mg PO Q6H PRN PRN Reason: Breakthrough Pain Last Admin: 05/02/25 20:12 Dose: 25 mg Documented By: SHELBY Trazodone HCl (Trazodone Hcl 100 Mg Tablet) 100 mg PO BEDTIME [facility] Last Admin: 05/02/25 20:10 Dose: 100 mg Documented By: SHELBY Labs 05/02/25 07:03 05/02/25 07:03 Labs: Laboratory Results - last 24 hr 05/02/25 05/02/25 05/02/25 07:03 10:52 16:13 POC Glucose 223 H 164 H Estimat Average Glucose 131 Hemoglobin A1c % 6.2 H 05/02/25 05/03/25 19:33 07:19 POC Glucose 195 H 134 H Estimat Average Glucose Hemoglobin A1c % Microbiology Microbiology Results: Microbiology 04/30/25 13:46 Blood Culture - Preliminary Blood - Venous No growth after 48 hours. 04/30/25 13:46 Blood Culture - Preliminary Blood - Venous No growth after 48 hours. 04/30/25 18:05 Urine Culture - Final Urine Catheterized - Gross Catheter Assessment and Plan (1) Urinary tract infection: Status: Acute Plan 74yo M with chronic urinary catheter with hx ESBL UTI, DM2 on Tresiba/GPZ/MTF, HTN, HLD, hx hemorrhagic CVA, and HFpEF, LTC resident at [facility], brought in with AMS, found to be septic due to UTI sepsis due to complicated UTI - Ertapenem from 04/30. Seen by ID with the following recommendation He has had enterococcus in urine and ESBL in past Would give fosfomycin 3g x2 doses and consider cephalosporin for 14 days even though culture unremarkable at this point DM2 with hypoglycemia - hold basal insulin + oral hypoglycemis; off IV D5; A1C = 6.9 as of 05/02/25 HTN - amlodipine, metoprolol tartrate HLD - statin hx CVA - clopidogrel BPH - finasteride + tamsulosin HFpEF - appears euvolemic; continue antihypertensives mood disorder - trazodone, mirtazapine, risperidone VTE ppx - UFH dispo - LTC [place] Total time managing care of this patient today: 35 minutes. Quality Stroke Does the patient have a stroke diagnosis?: No VTE Prior VTE?: No VTE Risk Level:: Medical - moderate - high VTE Device Contraindication: Treatment Not Indicated VTE Drug Contraindication: N/A - Med Ordered
[2025-05-03 11:33] LABS: Glucose, Whole Blood 218 mg/dL (60-115)
[2025-05-03 11:41] VITALS: BP 122/59; PULSE 51; RESP 20; TEMP 36.5; O2SAT 98
[2025-05-03 15:59] VITALS: BP 117/74; PULSE 57; RESP 18; TEMP 37; O2SAT 99
[2025-05-03 16:14] LABS: Glucose, Whole Blood 176 mg/dL (60-115)
[2025-05-03 19:47] VITALS: BP 149/73; PULSE 56; RESP 20; TEMP 36.4; O2SAT 98
[2025-05-03 21:15] LABS: Glucose, Whole Blood 239 mg/dL (60-115)
[2025-05-04] VITALS (7 sets, daily range): BP systolic 125–147; BP diastolic 59–82; PULSE 50–58; RESP 16–20; TEMP 36.3–36.8; O2SAT 96–98
[2025-05-04 07:52] LABS: Glucose, Whole Blood 138 mg/dL (60-115)
[2025-05-04] MEDS: Metoprolol Tartrate 12.5 MG HALFTAB PO (09:28)
[2025-05-04] MEDS: 0.9 % Sodium Chloride Flush 3 ML SYRINGE IVFLUSH ×2 (09:28→16:17)
--- NOTE | 2025-05-04 09:31 | P.PNIM_ITS ---
Subjective Subjective Date of Service: 05/04/25 Interval History: No new complaint repoeted, HR is 50s Review of Systems Review of Systems: Yes all other systems are reviewed and are negative Physical Exam 2 Vital Signs: Vital Signs: Last Vital Signs Temp 97.8 F 05/04/25 08:00 Pulse 50 05/04/25 08:00 Resp 18 05/04/25 08:00 BP 129/80 05/04/25 08:00 Pulse Ox 97 05/04/25 08:00 O2 Del Method Room Air 05/04/25 08:00 BMI result Body Mass Index 25.8 Objective Data Active Medications Acetaminophen (Acetaminophen 325 Mg Tablet) 975 mg PO Q6H PRN PRN Reason: Pain, Mild 1-3,fever,headache Atorvastatin Calcium (Atorvastatin Calcium 40 Mg Tablet) 40 mg PO BEDTIME [facility] Last Admin: 05/03/25 20:04 Dose: 40 mg Documented By: RICK Calcium Carbonate (Calcium Carbonate 750 Mg Tab.Chew) 750 mg PO Q4H PRN PRN Reason: Heartburn Clopidogrel Bisulfate (Clopidogrel Bisulfate 75 Mg Tablet) 75 mg PO DAILY [facility] Last Admin: 05/04/25 09:28 Dose: 75 mg Documented By: JONAS Dextrose (Dextrose 50 % 25 Gm/50 Ml Syringe) 25 gm IVPUSH Q15M PRN; Protocol PRN Reason: per Hypoglycemia Standing Ord. Last Admin: 05/01/25 02:01 Dose: 25 gm Documented By: THU Ertapenem (Ertapenem Sodium 1 Gm Vial) 1 gm IVPUSH Q24H [facility] Last Admin: 05/03/25 16:12 Dose: 1 gm Documented By: JONAS Finasteride (Finasteride 5 Mg Tablet) 5 mg PO DAILY [facility] Last Admin: 05/04/25 09:28 Dose: 5 mg Documented By: JONAS Glucose (Glucose Gel 15 Gm Gel..Gram.) 15 gm PO Q15M PRN; Protocol PRN Reason: per Hypoglycemia Standing Ord. Heparin Sodium (Porcine) (Heparin Sodium,Porcine 5,000 Unit/Ml Vial) 5,000 unit SUBCUT Q12H [facility] Last Admin: 05/04/25 09:28 Dose: 5,000 unit Documented By: JONAS Insulin Human Lispro (Insulin Lispro 100 Unit/Ml 3 Ml Vial) 0 unit SUBCUT QIDACHS [facility]; Protocol Last Admin: 05/04/25 08:38 Dose: Not Given Documented By: JONAS Non-Admin Reason: No Insulin Coverage Magnesium Hydroxide (Milk Of Magnesia 30 Ml Oral.Susp) 30 ml PO DAILY PRN PRN Reason: Constipation Melatonin (Melatonin 3 Mg Tablet) 6 mg PO BEDTIME PRN PRN Reason: Insomnia Metoprolol Tartrate (Metoprolol Tartrate 12.5 Mg Halftab) 12.5 mg PO BID [facility]; Protocol Last Admin: 05/04/25 09:28 Dose: 12.5 mg Documented By: JONAS Mirtazapine (Mirtazapine 15 Mg Tablet) 15 mg PO BEDTIME [facility] Last Admin: 05/03/25 20:04 Dose: 15 mg Documented By: RICK Risperidone (Risperidone 1 Mg Tablet) 1 mg PO BID [facility] Last Admin: 05/04/25 09:28 Dose: 1 mg Documented By: JONAS Sodium Chloride (0.9 % Sodium Chloride Flush 3 Ml Syringe) 3 ml IVFLUSH QSHIFT [facility] Last Admin: 05/04/25 09:28 Dose: 3 ml Documented By: JONAS Tamsulosin HCl (Tamsulosin Hcl 0.4 Mg Capsule) 0.4 mg PO DAILY [facility] Last Admin: 05/04/25 09:28 Dose: 0.4 mg Documented By: JONAS Tramadol HCl (Tramadol Hcl 50 Mg Tablet) 25 mg PO Q6H PRN PRN Reason: Breakthrough Pain Last Admin: 05/03/25 20:07 Dose: 25 mg Documented By: RICK Trazodone HCl (Trazodone Hcl 100 Mg Tablet) 100 mg PO BEDTIME [facility] Last Admin: 05/03/25 20:04 Dose: 100 mg Documented By: RICK Labs 05/02/25 07:03 05/02/25 07:03 Labs: Laboratory Results - last 24 hr 05/03/25 05/03/25 05/03/25 11:27 16:07 21:10 POC Glucose 218 H 176 H 239 H 05/04/25 07:47 POC Glucose 138 H Microbiology Microbiology Results: Microbiology 04/30/25 13:46 Blood Culture - Preliminary Blood - Venous No growth after 48 hours. 04/30/25 13:46 Blood Culture - Preliminary Blood - Venous No growth after 48 hours. 04/30/25 18:05 Urine Culture - Final Urine Catheterized - Gross Catheter Assessment and Plan (1) Urinary tract infection: Status: Acute Plan 74yo M with chronic urinary catheter with hx ESBL UTI, DM2 on Tresiba/GPZ/MTF, HTN, HLD, hx hemorrhagic CVA, and HFpEF, LTC resident at [facility], brought in with AMS, found to be septic due to UTI sepsis due to complicated UTI - Ertapenem from 04/30. Seen by ID with the following recommendation He has had enterococcus in urine and ESBL in past Would give fosfomycin 3g x2 doses and consider cephalosporin for 14 days even though culture unremarkable at this point DM2 with hypoglycemia - hold basal insulin + oral hypoglycemis; off IV D5; A1C = 6.9 as of 05/02/25 HTN - amlodipine, metoprolol tartrate HLD - statin hx CVA - clopidogrel BPH - finasteride + tamsulosin HFpEF - appears euvolemic; continue antihypertensives mood disorder - trazodone, mirtazapine, risperidone VTE ppx - UFH dispo - LTC at dc consider LTAC dc later today if Fosfomycin can be obtained by SNF Total time managing care of this patient today: 35 minutes. Quality Stroke Does the patient have a stroke diagnosis?: No VTE Prior VTE?: No VTE Risk Level:: Medical - moderate - high VTE Device Contraindication: Treatment Not Indicated VTE Drug Contraindication: N/A - Med Ordered
[2025-05-04 11:40] LABS: Glucose, Whole Blood 230 mg/dL (60-115)
[2025-05-04 15:39] LABS: Glucose, Whole Blood 191 mg/dL (60-115)
--- NOTE | 2025-05-04 15:49 | MHC.CM.PN ---
Per , Pt. is ready to return to SNF, but new med is: Fosfomycin 3g every 48 hrs, 2 doses. CM reached out to SNF to see if they could get this med, they said that could but were concerned that it would not be until Monday due to holiday. Provider was looking into our pharmacy giving first dose, waiting to hear back to see if we could get the one dose.
[2025-05-04 20:57] LABS: Glucose, Whole Blood 184 mg/dL (60-115)
[2025-05-05] MEDS: 0.9 % Sodium Chloride Flush 3 ML SYRINGE IVFLUSH ×4 (00:31→20:19)
[2025-05-05 04:00] VITALS: BP 146/69; PULSE 56; RESP 16; TEMP 36.7; O2SAT 99
[2025-05-05 07:25] LABS: Glucose, Whole Blood 164 mg/dL (60-115)
[2025-05-05 08:00] VITALS: BP 97/61; PULSE 73; RESP 20; TEMP 36.3; O2SAT 98
[2025-05-05] MEDS: Metoprolol Tartrate 12.5 MG HALFTAB PO (09:04)
[2025-05-05 11:30] LABS: Glucose, Whole Blood 336 mg/dL (60-115)
[2025-05-05 12:00] VITALS: BP 123/73; PULSE 56; RESP 18; TEMP 36.3; O2SAT 97
[2025-05-05 15:52] LABS: Glucose, Whole Blood 208 mg/dL (60-115)
[2025-05-05 16:00] VITALS: BP 114/78; PULSE 67; RESP 18; TEMP 36.9; O2SAT 99
[2025-05-05 19:40] VITALS: BP 142/78; PULSE 54; RESP 16; TEMP 36.8; O2SAT 97
[2025-05-05 20:24] LABS: Glucose, Whole Blood 198 mg/dL (60-115)
[2025-05-05 23:51] VITALS: BP 156/82; PULSE 52; RESP 16; TEMP 36.2; O2SAT 98
[2025-05-06 03:51] VITALS: BP 138/90; PULSE 68; RESP 17; TEMP 35.8; O2SAT 96
[2025-05-06 04:12] VITALS: TEMP 36.3
[2025-05-06 07:15] VITALS: BP 160/76; PULSE 57; RESP 18; TEMP 36.2; O2SAT 97
[2025-05-06 07:41] LABS: Glucose, Whole Blood 181 mg/dL (60-115)
[2025-05-06] MEDS: 0.9 % Sodium Chloride Flush 3 ML SYRINGE IVFLUSH ×2 (07:55→11:34)
[2025-05-06] MEDS: Metoprolol Tartrate 12.5 MG HALFTAB PO (07:55)
[2025-05-06 07:57] VITALS: PULSE 88
[2025-05-06 09:31] LABS: Hematocrit 36.2 % (42.0-52.0); Hemoglobin 12.6 g/dl (14.0-18.0); Mean Corpuscular HGB Conc 34.8 g/dl (31.0-36.0); Mean Corpuscular Hemoglobin 28.9 pg (27.0-33.0); Mean Corpuscular Volume 83.0 fL (80.0-98.0); NRBC Abs Auto 0.000 X10*3/uL (0.0-0.012); NRBC Pct Auto 0.0 /100WBC (0.0-0.2); Platelet Count 187 X10*3/uL (160-400); Red Blood Count 4.36 X10*6/uL (4.60-5.80); White Blood Count 7.1 X10*3/uL (4.8-10.8)
--- NOTE | 2025-05-06 11:05 | MHC.CM.PN ---
IMM 05/06/25 DELIVERED TO PT'S /HCP ANA ROSA AT [phone], NO ANSWER AND DETAILED MESSAGE LEFT, PT MEDICALLY [facility]AS[facility].
--- NOTE | 2025-05-06 11:06 | PM.DS ---
DS: Providers Provider Date of Service: 05/06/25 Date of admission: 04/30/25 17:52 Date of discharge: 05/06/25 Primary care physician: Geno Rousseau MD Consults: 04/30/25 18:20 Consult to Infectious Diseases Routine Consulting Provider: [facility] Reason for consultation: Hx of ESBL, urosepsis Has provider been notified: No Attending physician on discharge: Linda Temple DS: Diagnosis Discharge Diagnosis (1) Urinary tract infection: Status: Acute DS: Summary Hospital Course Hospital Course: 74yo M with chronic urinary catheter with hx ESBL UTI, DM2 on Tresiba/GPZ/MTF, HTN, HLD, hx hemorrhagic CVA, and HFpEF, [facility], brought in with A[facility], found to be septic due to UTI sepsis due to complicated UTI - Ertapenem from 04/30. Seen by ID with the following recommendation He has had enterococcus in urine and ESBL in past Would give fosfomycin 3g x2 doses and consider cephalosporins for 14 days even though culture unremarkable at this point pt received ertapenam inpt, forfomycin is non formulary, after discussing with AR[facility] dc on cefurxoime 500 bid for 10 more days. DM2 with hypoglycemia resume home meds, with close monitoring of BS, may be able to come off of metformin given he is on insulin already HTN - amlodipine, metoprolol tartrate HLD - statin hx CVA - clopidogrel BPH - finasteride + tamsulosin HFpEF - appears euvolemic; mood disorder - trazodone, mirtazapine, risperidone Time Attestation Discharge Coordination Time (in mins): 40 mins Quality: Safe Use of Opioids Does Pt have an Active Cancer Diagnosis on the Problem List?: No Quality: Stroke Does the patient have a stroke diagnosis?: No Physical Exam Exam: Exam: awake and alert abdomen soft non tender burgos in place heart RRR lungs on RA, CTAB Vital Signs: Vital Signs: Last Vital Signs Temp 97.1 F 05/06/25 07:15 Pulse 88 05/06/25 07:57 Resp 18 05/06/25 07:15 BP 160/76 H 05/06/25 07:15 Pulse Ox 97 05/06/25 07:15 O2 Del Method Room Air 05/06/25 07:15 BMI result Body Mass Index 25.8 DS: Data Data Completed and Pending Completed studies during hospitalization [Text1]: Procedures Insertion of Infusion Device into Right Basilic Vein, Percutaneous Approach (01/16/25) Labs on day of discharge: Laboratory Results - last 24 hr 05/05/25 05/05/25 05/05/25 11:22 15:49 20:20 WBC RBC Hgb Hct MCV MCH MCHC RDW Plt Count MPV Absolute Nucleated RBC Nucleated RBC % (auto) POC Glucose 336 H 208 H 198 H 05/06/25 05/06/25 07:35 09:25 WBC 7.1 RBC 4.36 L Hgb 12.6 L Hct 36.2 L MCV 83.0 MCH 28.9 MCHC 34.8 RDW 14.4 Plt Count 187 MPV 9.2 L Absolute Nucleated RBC 0.000 Nucleated RBC % (auto) 0.0 POC Glucose 181 H Discharge Plan Discharge Patient Disposition: [facility] Discharge Diagnosis: UTI Referrals: [facility] [Outside] - 1 Day Referral Note: RESUMPTION OF CARE Geno Rousseau MD [Primary Care Provider, Medical] - 1 Week Discharge Medications: New cefuroxime axetil 500 mg tablet 500 mg PO BID 10 Days Qty: 20 0RF Continued (DME) pen needle, diabetic 32 gauge x 1/4 needle Qty: 100 0RF Rx Instructions: use with Lantus Solostar Pen once daily (DME) lancets [FreeStyle Lancets] 28 gauge misc Qty: 100 0RF Rx Instructions: Test four times a day or as directed. tamsulosin 0.4 mg capsule 0.4 mg PO DAILY risperidone 1 mg tablet 1 mg PO BID metoprolol tartrate 25 mg tablet 12.5 mg PO BID tramadol 25 mg tablet 25 mg PO Q12H PRN (Reason: pain) acetaminophen 325 mg Tablet 650 mg PO Q6H PRN (Reason: Fever Or Pain) atorvastatin 40 mg tablet 40 mg PO BEDTIME clopidogrel 75 mg tablet 75 mg PO DAILY amlodipine 5 mg tablet 5 mg PO DAILY trazodone 100 mg tablet 100 mg PO BEDTIME metformin 1,000 mg tablet 1,000 mg PO BID mirtazapine 15 mg tablet 15 mg PO BEDTIME insulin degludec [Tresiba FlexTouch U-100] 100 unit/mL (3 mL) insulin pen 18 unit subcut DAILY insulin lispro [Humalog U-100 Insulin] 100 unit/mL Solution 1 sliding scale dose SUBCUT TIDAC Protocol: Insulin Correction Scale Less than or equal to 110 ---- Give (units): 0 111 to 150 Give (units): 0 151 to 200 Give (units): 0 201 to 250 Give (units): 4 251 to 300 Give (units): 6 301 to 350 Give (units): 8 Greater than 350 Give (units): 10 Call MD if Blood Glucose > : 400 finasteride 5 mg Tablet 5 mg PO DAILY Qty: 90 0RF Discharge Orders: Discharge Order (Routine); Ordered 05/06/25 Ordered By: Linda Temple Diet: Advance to usual diet Activity on Discharge: As tolerated Stand Alone Forms: Patient Portal Discharge page Print Language: Slovak Care Plan Goals: Pt admitted with lethargy and was found to have UTI, treated with IV Abx inpt,cultures remained -ve,ID consulted,dc on cefuroxime for total of 14 days including inpt therapy. pt is back to baseline at the time of dc Health Concerns: see above Plan of Treatment: continue with home medications, Given that pt is on isnulin,would reassess the need for metformin in outpt setting and may consider dc it. complete Abx course as directed Assessment: see above Hypertension (Cardio) Most Recent Cardiac Tests: Chest X-Ray 04/30/25 Echocardiogram 04/12/23
[2025-05-06 11:11] VITALS: BP 134/67; PULSE 56; RESP 18; TEMP 36.6; O2SAT 98
[2025-05-06 11:20] LABS: Glucose, Whole Blood 272 mg/dL (60-115)
[2025-05-06] MEDS: Fosfomycin Tromethamine 3 GM PACKET PO (11:30)
[2025-05-06 14:09] LABS: Alanine Aminotransferase 20 U/L (0-40); Albumin Level 3.9 g/dL (3.5-5.0); Alkaline Phosphatase 85 U/L (39-117); Anion Gap 13 (12-20); Aspartate Amino Transferase 28 U/L (5-37); Blood Urea Nitrogen 20 mg/dL (9-16); Calcium 9.3 mg/dL (8.4-10.2); Carbon Dioxide 24 mmol/L (22-29); Chloride 104 mmol/L (96-108); Creatinine Clr Calc Pharmacy 63.9; Estimated Glomerular Filt Rate > 60; Potassium 4.4 mmol/L (3.3-5.1); Sodium 137 mmol/L (135-145); Total Protein 7.1 g/dL (6.5-8.0)
--- NOTE | 2025-05-10 13:45 | P.CDIM_ITS ---
PROVIDER RESPONSE TEXT: To clarify, the appropriate diagnosis supported by the clinical indicators: Acute QUERY TEXT: PHYSICIAN'S DOCUMENTATION REQUEST Date of Query: 05/02/2025 09:03 AM EDT Patient Name: Gadiel Arevalo Admit Date: 04/30/2025 Dear Mario Flanagan MD, A review of the medical record indicates additional documentation may be needed. Please review below and update the documentation accordingly. Clinical Indicators: H&P dated 04/30/25 - Next lactic acidosis of 3.5. LABS: LA 2.8 H 3.5 H Clarify which of the following accurately represents the acuity of the Lactic acidosis: Possible options might include: Acute Chronic Other specified Other (explain) Clinically unable to determine (explain) Thank you, Terra De, CCS, CDIS Use of terms such as suspected, likely, concern for, or probable (associated with a specific diagnosis that is being evaluated, monitored, or treated as if it exists) are acceptable and can be coded in the inpatient setting, when documented at the time of discharge. Please use your independent medical judgment in providing your response. THIS QUERY IS PART OF THE PERMANENT MEDICAL RECORD
== END 2025-05-06 14:08 | DRG 698 ==
LOC: HO.ED 16:03 → HO.EDOVER 17:58 → HO.IMC 05-01 12:19
PROVIDERS: Internal Medicine; Physician Assistant Medical; Admitting Provider Family Medicine; Emergency Provider Emergency Medicine; PCP Internal Medicine; Visit Provider Hospitalist
DX: T83.511A Infection and inflammatory reaction due to indwelling urethral catheter, initial encounter (principal); A41.9 Sepsis, unspecified organism; I50.32 Chronic diastolic (congestive) heart failure; E87.21 Acute metabolic acidosis; N13.8 Other obstructive and reflux uropathy; N39.0 Urinary tract infection, site not specified; I11.0 Hypertensive heart disease with heart failure; E78.5 Hyperlipidemia, unspecified; E11.649 Type 2 diabetes mellitus with hypoglycemia without coma; F39 Unspecified mood [affective] disorder; N40.1 Benign prostatic hyperplasia with lower urinary tract symptoms; R68.0 Hypothermia, not associated with low environmental temperature; Z87.891 Personal history of nicotine dependence; Z86.73 Personal history of transient ischemic attack (TIA), and cerebral infarction without residual deficits; Z87.440 Personal history of urinary (tract) infections; Z79.4 Long term (current) use of insulin; Z79.02 Long term (current) use of antithrombotics/antiplatelets; Z79.85 Long-term (current) use of injectable non-insulin antidiabetic drugs; Z79.899 Other long term (current) drug therapy
CPT/HCPCS: 36415; 70450; 71045; 80048; 80053; 81001; 82140; 82803; 82947; 83036; 83605; 83735; 85025; 85027; 87040; 87086; 93005; 99285; J0696; J1335; J1644

== ENCOUNTER → 2025-04-30 13:50 | Outpatient (BNV) | payer MEDICARE, SELFPAY | PROVIDERS: Admitting Provider Family Medicine; Emergency Provider Emergency Medicine; PCP Internal Medicine; Visit Provider Internal Medicine | DX: R00.1 Bradycardia, unspecified (principal) | CPT/HCPCS: 93010 ==

== ENCOUNTER → 2025-04-30 16:10 | Outpatient (BNV) | payer MEDICARE, SELFPAY | PROVIDERS: Emergency Provider Emergency Medicine; PCP Internal Medicine; Visit Provider Radiology Diagnostic Radiology | DX: R41.82 Altered mental status, unspecified (principal) | CPT/HCPCS: 70450; 71045 ==

== ENCOUNTER → 2025-04-30 17:52 | Outpatient (BNV) | payer MEDICARE, SELFPAY | PROVIDERS: Admitting Provider Family Medicine; Emergency Provider Emergency Medicine; PCP Internal Medicine; Visit Provider Internal Medicine | DX: A41.9 Sepsis, unspecified organism (principal); N39.0 Urinary tract infection, site not specified | CPT/HCPCS: 99223 ==

== ENCOUNTER → 2025-04-30 17:52 | Outpatient (BNV) | payer MEDICARE, SELFPAY | PROVIDERS: Admitting Provider Family Medicine; Emergency Provider Emergency Medicine; PCP Internal Medicine; Visit Provider Internal Medicine | DX: R53.83 Other fatigue (principal) | CPT/HCPCS: 99222 ==